=== PATIENT | male | born 1975 | race Caucasian/White ===

== ENCOUNTER → 2017-12-15 | Outpatient (CLI) | payer OTHER ==
--- NOTE | 2017-12-15 15:01 | Diagnostic Imaging Report ---
INDICATION: Hypertension, optic neuritis. COMPARISON: None. FINDINGS: Frontal and lateral views of the chest demonstrate normal heart size and pulmonary vascularity. The lungs are clear. There are no signs of infiltrate, pleural effusions or pneumothoraces. The visualized osseous structures show no acute abnormalities. IMPRESSION: 1. No acute process. No signs of infiltrates, effusions or pneumothoraces. Dictated by: Dictated on workstation # [id number]
== END ==
LOC: RAD 14:32
PROVIDERS: ATTEND Family Medicine
DX: H46.9 Unspecified optic neuritis (principal); I10 Essential (primary) hypertension
CPT/HCPCS: 71046

== ENCOUNTER 2018-01-06 13:30 | Outpatient (CLI) | payer OTHER | END 2018-01-06 14:00 | disposition home or self-care (01) | LOC: SLEEP 13:30 | PROVIDERS: ATTEND Family Medicine | DX: G47.35 Congenital central alveolar hypoventilation syndrome (principal); G47.10 Hypersomnia, unspecified ==

== ENCOUNTER → 2018-01-06 | Outpatient (CLI) | payer OTHER ==
--- NOTE | 2018-01-06 14:06 | Diagnostic Imaging Report ---
PROCEDURE: US carotid duplex, bilateral. TECHNIQUE: Multiple real-time grayscale images were obtained over the carotid arteries in various projections, bilaterally. Additional duplex Doppler and color Doppler images were also obtained. INDICATION: Left eye blindness. FINDINGS: No significant plaque is identified in either carotid system. The velocities are unremarkable bilaterally. No velocity elevation or stenosis is seen. Both vertebral arteries show antegrade flow. IMPRESSION: No evidence of a hemodynamically significant stenosis. Dictated by: Dictated on workstation # [id number]
== END ==
LOC: RAD 12:59
PROVIDERS: ATTEND Nurse Practitioner Family
DX: H54.62 Unqualified visual loss, left eye, normal vision right eye (principal); H46.8 Other optic neuritis
CPT/HCPCS: 93880

== ENCOUNTER → 2018-05-14 | Outpatient (CLI) | payer OTHER ==
--- NOTE | 2018-05-14 18:43 | Diagnostic Imaging Report ---
INDICATION: No known injuries. Neck and back pain with bilateral shoulder pain. EXAMINATION: MRI of the cervical spine, 05/14/2018. COMPARISON: None. FINDINGS: There is normal height and alignment of the vertebral bodies. There are no acute fractures appreciated. Cervical medullary junction is unremarkable. The visualized cord signal is preserved. C2-C3: This level is unremarkable central canal is patent as are the neural foramina. C3-C4: There is disc desiccation. There is a very mild broad-based bulging disc, right paracentral, without evidence of hypertrophy. There is mild to moderate central stenosis with narrowing of the right neural foramen. C4-C5: Disc desiccation present. There is a right paracentral spur disc complex without evidence of hypertrophy. Bilateral neural foraminal narrowing is seen and there is moderate central narrowing. C5-C6: There is disc desiccation. There is mild intervertebral disc space narrowing with a broad-based spur disc complex and bilateral facet hypertrophy. Bilateral neural foraminal stenosis is seen with moderate to near severe central narrowing. C6-C7: There is intervertebral disc space narrowing. Broad-based bulging disc material noted with severe central stenosis. This appears to be causing possible very early cord compression but no cord signal change is appreciated. The neural foramina are bilaterally narrowed, left worse than right, with facet hypertrophy seen, bilaterally. C7-T1: Intervertebral disc space narrowing is seen. There is no significant central stenosis. There is left-sided neural foraminal narrowing with bilateral facet hypertrophy noted. The prevertebral soft tissues are unremarkable. IMPRESSION: Multilevel diffuse degenerative findings, as described, causing multilevel areas of moderate stenosis with severe stenosis seen at the C6-C7 level, see above discussion. Surgical consultation would be recommended. No cord signal change is seen at this time. Dictated by: Dictated on workstation # [id number]
--- NOTE | 2018-05-14 19:07 | Diagnostic Imaging Report ---
INDICATION: No known injuries. Neck pain and back pain with bilateral shoulder and arm pain off and on. EXAMINATION: Thoracic spine MRI dated 05/14/2018. COMPARISON: No comparisons. FINDINGS: Normal height and alignment of the vertebral bodies is seen. No acute compression deformities appreciated. No significant subluxations are seen. Visualized cord signal is preserved. At the T6-T7 level, very mild right paracentral disc protrusion is noted causing some minimal central narrowing but no cord compression. Similar findings at the T7-T8 level, slightly more pronounced in appearance, causing mild flattening of the anterior aspect of the right portion of the central canal but no cord compression. At T8-T9, intervertebral disc space narrowing, disc desiccation, and a central disc protrusion is noted. There is marked spurring bilaterally along the lateral aspects of the vertebral bodies. Findings cause mild central narrowing. T9-T10 is unremarkable. At T10-T11, there is intervertebral disc space narrowing, disc desiccation, and a fairly prominent central disc extrusion. This causes [id number]-severe central stenosis and slightly pushes the cord posteriorly but no signal change in the cord is appreciated. Remaining levels are unremarkable. Visualized soft tissues in the abdomen and chest demonstrate a nonspecific oval lesion along the posterior left hemithorax, pleural based in appearance. It has signal intensity on the axial T2-weighted imaging, similar to the adjacent fatty tissue. It is not included on other sequences, therefore difficult to characterize but most likely focal fatty change or fatty lesion. Dedicated imaging of the chest with CT imaging could provide better characterization. IMPRESSION: 1. Multilevel diffuse degenerative findings, as described above, causing areas of central stenosis throughout the thoracic spine, worst at the T10-T11 level where there is near-severe central stenosis but no signal change in the cord at this time. Impending compression of the cord is not excluded. Other findings as above including findings in the left hemithorax which could be further evaluated with CT imaging. Dictated by: Dictated on workstation # [id number]
== END ==
LOC: RAD 16:55
PROVIDERS: ATTEND Nurse Practitioner Family
DX: M48.03 Spinal stenosis, cervicothoracic region (principal); M50.33 Other cervical disc degeneration, cervicothoracic region; M50.23 Other cervical disc displacement, cervicothoracic region; M99.71 Connective tissue and disc stenosis of intervertebral foramina of cervical region
CPT/HCPCS: 72141; 72146

== ENCOUNTER → 2018-05-26 | Outpatient (CLI) | payer OTHER ==
[~2018-05-26] MED LIST: IOHEXOL 350 MG/ML 100 ML (OMNIPAQUE 350) VIAL IV ONE; NS 100 ML (IVPB) BAG IV ONE
--- NOTE | 2018-05-26 09:52 | Diagnostic Imaging Report ---
PROCEDURE: CT chest with contrast only. TECHNIQUE: Multiple contiguous axial images were obtained through the chest after administration of intravenous contrast. INDICATION: Abnormal recent MRI of the thoracic spine with questionable fatty lesion in the left hemithorax. Study is performed for further evaluation. COMPARISON: Comparison is made with MRI thoracic spine study from 05/14/2018. FINDINGS: No axillary lymphadenopathy is identified. No hilar or mediastinal lymphadenopathy is seen. No pericardial or pleural fluid is detected. Central airways are patent. Lungs are clear. No parenchymal infiltrate, nodule or mass is seen. Specifically, in the lower left posterior thorax, no abnormality is seen to account for the MRI finding. This most likely represented fatty tissue. The upper abdomen is unremarkable. IMPRESSION: Unremarkable CT of the chest. Dictated by: Dictated on workstation # [id number]
== END ==
LOC: RAD 08:17
PROVIDERS: ATTEND Nurse Practitioner Family
DX: M79.89 Other specified soft tissue disorders (principal)
CPT/HCPCS: 71260

== ENCOUNTER 2020-04-28 | Emergency (ER) | payer MEDICAID, OTHER ==
[~2020-04-28] VITALS: Ht 170 cm; Wt 100.0 kg
--- OUTSIDE RECORDS SUMMARY | 2020-04-28 00:09 | XMS REPORT | CCD ---
Author Author Nilton Gonzalez Organization [facility] Address [address] [place] [address] Phone Care Team Providers Care Oncology Research Rn Name Role Phone PP Unavailable CCM Unavailable Summary Purpose Interface Exchange Family history Brother Diagnosis Age At Onset Alcoholism Unknown Father Diagnosis Age At Onset Hypercholesterolemia Unknown Social History Social History Element Codes Description Effective Dates Employment Unknown Curre ntly unemployed 04/20/2019 Marital status Unknown S chanda 12/15/2017 Number of children Unknown 1 12/15/[address]: 432893832 Never smoker 12/15/[address]: 305795 Currently drinks alcohol <1 per week 12/15/2017 Has the patient ever used illegal drugs? Unknown Has never used illegal drugs 018 Living arrangements Unknown House 08/04/2015 Allergies, Adverse Reactions, Alerts Substance Reaction Codes Entered Date Inactivated Date Status * NO KNOWN DRUG ARNOLDO RGIES Unknown 08/03/2015 No Inactive Date Active Past Medical History Illness Codes Condition Status Onset Date Resolved Date Cervicalgia ICD-9: 723.1 ICD-10: M54.2 Active 05/10/2018 Unknown Changes in skin texture ICD-9: 782.8 ICD-10: R23.4 Active 06/07/2019 Unknown Pain in thoracic spine ICD-9: 724.1 ICD-10: M54.6 Active 05/10/2018 Unknown Spinal stenosis, cer vical region ICD-9: 723.0 ICD-10: M48.02 Active 05/20/2018 Unknown Spinal stenosis, tho racic region ICD-9: 724.01 ICD-10: M48.04 Active 05/20/2018 Unknown Essential (primary) hypertension ICD-9: 401.1 ICD-10: I10 Active 12/15/2017 Unknown Major depressive dis order, recurrent, moderate ICD-9: 296.32 ICD-10: F33.1 Active 04/20/2019 Unknown Other fatigue ICD-9: 780.79 ICD-10: R53.83 Active 05/10/2018 Unknown 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 Active 05/20/2018 Unknown Dysphagia, pharyngea l phase ICD-9: 787.23 ICD-10: R13.13 Active 04/20/2019 Unknown Impaired fasting glu cose ICD-9: 790.21 ICD-10: R73.01 Active 12/21/2018 Unknown Pain in right arm ICD-9: 729.5 ICD-10: M79.601 Active 12/20/2018 Unknown Ischemic optic neuro sergey, 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 Active 12/15/2017 Unknown Obstructive sleep ap nura (adult) (pediatric) ICD-9: 327.23 ICD-10: G47.33 Active 01/15/2018 Unknown Other malaise ICD-9: 780.79 ICD-10: R53.81 Active 05/10/2018 Unknown Acute upper respirat ory infection, unspecified ICD-9: 465.9 ICD-10: J06.9 Active 09/24/2018 Unknown Other allergic rhinitis ICD-9: 477.8 ICD-10: J30.89 Active 09/24/2018 Unknown Rash and other nonsp ecific skin eruption ICD-9: 782.1 ICD-10: R21 Active 08/02/2018 Unknown VACCIN FOR INFLUENZA ICD-9: V04.81 ICD-10: Z23 Active 08/02/2018 Unknown Decreased libido ICD-9: 799.81 ICD-10: R68.82 Active 05/10/2018 Unknown Encounter for genera l adult medical examination with abnormal findings ICD-9: V70.0 ICD-10: Z00.01 Active 12/15/2017 Unknown Laceration of thumb ICD- 9: 883.0 Active 08/02/2015 Unknown Problems Condition Codes Effectiv e Dates Condition Status Cervicalgia ICD-9: 723.1 ICD-10: M54.2 05/10/2018 Active Changes in skin texture ICD-9: 782.8 ICD-10: R23.4 06/07/2019 Active Pain in thoracic spine ICD-9: 724.1 ICD-10: M54.6 05/10/2018 Active Spinal stenosis, cer vical region ICD-9: 723.0 ICD-10: M48.02 05/20/2018 Active Spinal stenosis, tho racic region ICD-9: 724.01 ICD-10: M48.04 05/20/2018 Active Essential (primary) hypertension ICD-9: 401.1 ICD-10: I10 12/15/2017 Active Major depressive dis order, recurrent, moderate ICD-9: 296.32 ICD-10: F33.1 04/20/2019 Active Other fatigue ICD-9: 780.79 ICD-10: R53.83 05/10/2018 Active 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 05/20/2018 Active Dysphagia, pharyngea l phase ICD-9: 787.23 ICD-10: R13.13 04/20/2019 Active Impaired fasting glu cose ICD-9: 790.21 ICD-10: R73.01 12/21/2018 Active Pain in right arm ICD-9: 729.5 ICD-10: M79.601 12/20/2018 Active Ischemic optic neuro sergey, 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 12/15/2017 Active Obstructive sleep ap nura (adult) (pediatric) ICD-9: 327.23 ICD-10: G47.33 01/15/2018 Active Other malaise ICD-9: 780.79 ICD-10: R53.81 05/10/2018 Active Acute upper respirat ory infection, unspecified ICD-9: 465.9 ICD-10: J06.9 09/24/2018 Active Other allergic rhinitis ICD-9: 477.8 ICD-10: J30.89 09/24/2018 Active Rash and other nonsp ecific skin eruption ICD-9: 782.1 ICD-10: R21 08/02/2018 Active VACCIN FOR INFLUENZA ICD-9: V04.81 ICD-10: Z23 08/02/2018 Active Decreased libido ICD-9: 799.81 ICD-10: R68.82 05/10/2018 Active Encounter for genera l adult medical examination with abnormal findings ICD-9: V70.0 ICD-10: Z00.01 12/15/2017 Active Laceration of thumb ICD- 9: 883.0 08/02/2015 Active Medications Medication Codes Instruc tions Start Date Stop Date Sta tus Fill Instructions hydrocodone 10 mg-ac etaminophen 325 mg tablet RxNorm: 062214 1 Tablet(s) PO TID 08/05/2019 No Stop Date Active Singulair 10 mg tablet RxNorm: 482961 TAKE ONE TABLET BY MOUTH DAILY 07/20/2019 04/14/2020 Ac tive Adderall 30 mg tablet RxNorm: 124735 2 Tablet(s) PO daily 07/13/2019 08/11/2019 Active hydrocodone 10 mg-ac etaminophen 325 mg tablet RxNorm: 946834 1 Tablet(s) PO TID 07/06/2019 08/04/2019 In active alprazolam 1 mg tablet RxNorm: 030097 1 Tablet(s) PO TID as needed 07/05/2019 09/02/2019 Active prazosin 1 mg capsule RxNorm: 573483 2 Capsule(s) PO QPM 06/29/2019 10/26/2019 Active diclofenac sodium 75 mg tablet,delayed release RxNorm: 969047 1 Tablet(s) PO BID 06/27/2019 06/26/2019 In active diclofenac sodium 75 mg tablet,delayed release RxNorm: 388297 1 Tablet(s) PO BID 06/27/2019 07/26/2019 In active acyclovir 400 mg tablet RxNorm: 641492 TAKE ONE TABLET BY MOUTH THREE TIMES A D AY NEEDED. TAKE AT ONSET OF SYMPTOMS OF COLD SORES FOR 5 DAYS. 06/27/2019 07/26/2019 Inactive testosterone cypiona te 200 mg/mL intramuscular oil RxNorm: 4394678 1.25 Milliliter(s) IM 2 x month 06/24/2019 10/13/2019 Active Adderall 30 mg tablet RxNorm: 823536 2 Tablet(s) PO daily 06/16/2019 07/12/2019 Inactive hydrocodone 10 mg-ac etaminophen 325 mg tablet RxNorm: 021077 1 Tablet(s) PO TID 06/07/2019 07/05/2019 In active prazosin 1 mg capsule RxNorm: 086712 2 Capsule(s) PO QPM 06/07/2019 06/28/2019 Inactive prazosin 1 mg capsule RxNorm: 182676 TAKE ONE CAPSULE BY MOUTH EVERY NIGHT AT BEDTIME 06/02/2019 06/06/2019 Inactive trazodone 100 mg tablet RxNorm: 419328 TAKE ONE TABLET BY MOUTH EVERY NIGHT AT BEDTIME 05/25/2019 11/20/2019 Active hydrocodone 10 mg-ac etaminophen 325 mg tablet RxNorm: 906986 1 Tablet(s) PO Q6 as needed 05/17/2019 06/06/2019 Inactive paroxetine 40 mg tablet RxNorm: 6751744 TAKE ONE TABLET BY MOUTH DAILY 05/16/2019 11/11/2019 Ac tive hydrocodone 5 mg-fanny taminophen 325 mg tablet RxNorm: 370866 1-2 Tablet(s) PO Q6 a s needed 05/16/2019 05/16/2019 Inactive prazosin 1 mg capsule RxNorm: 552512 1 Capsule(s) PO daily 05/05/2019 06/01/2019 Inactive paroxetine 40 mg tablet RxNorm: 0416117 1 Tablet(s) PO daily 04/20/2019 05/15/2019 Inactive Adderall 30 mg tablet RxNorm: 253449 2 Tablet(s) PO daily 04/19/2019 05/18/2019 Inactive alprazolam 1 mg tablet RxNorm: 638009 1 Tablet(s) PO TID as needed 04/13/2019 06/10/2019 Inactive hydrocodone 5 mg-fanny taminophen 325 mg tablet RxNorm: 177123 1-2 Tablet(s) PO Q6 a s needed 03/21/2019 05/15/2019 Inactive Adderall 30 mg tablet RxNorm: 427703 2 Tablet(s) PO daily 03/21/2019 04/14/2019 Inactive tramadol 50 mg tablet RxNorm: 641263 1-2 Tablet(s) PO Q6 as needed 03/14/2019 No Stop Date Active hydrocodone 5 mg-fanny taminophen 325 mg tablet RxNorm: 213813 1-2 Tablet(s) PO Q6 a s needed 02/23/2019 03/20/2019 Inactive Adderall 30 mg tablet RxNorm: 785911 2 Tablet(s) PO daily 02/23/2019 03/20/2019 Inactive Adderall 30 mg tablet RxNorm: 288954 2 Tablet(s) PO daily 01/24/2019 02/22/2019 Inactive ketoconazole 2 % top ical cream RxNorm: 310226 APPLY ONE GRAM TOPICA LLY TWICE A DAY 01/12/2019 01/26/2019 In active tramadol 50 mg tablet RxNorm: 720207 1-2 Tablet(s) PO Q6 as needed 01/11/2019 03/13/2019 In active atenolol 50 mg tablet RxNorm: 486605 1.5 Tablet(s) PO BID 12/29/2018 12/23/2019 Active hydrocodone 5 mg-fanny taminophen 325 mg tablet RxNorm: 646605 1-2 Tablet(s) PO Q6 a s needed 12/29/2018 02/22/2019 Inactive Adderall 30 mg tablet RxNorm: 900043 2 Tablet(s) PO daily 12/29/2018 01/23/2019 Inactive hydrocodone 5 mg-fanny taminophen 325 mg tablet RxNorm: 191975 1-2 Tablet(s) PO Q6 a s needed 12/29/2018 12/28/2018 Inactive testosterone cypiona te 200 mg/mL intramuscular oil RxNorm: 6352099 1.25 Milliliter(s) IM 12/29/2018 12/28/2018 Inactive hydrocodone 5 mg-fanny taminophen 325 mg tablet RxNorm: 880788 1 Tablet(s) PO TID AL N 12/28/2018 12/28/2018 In active testosterone cypiona te 200 mg/mL intramuscular oil RxNorm: 3348741 1.25 Milliliter(s) IM 2 x month 12/22/2018 04/12/2019 Inactive gabapentin 300 mg ca psule RxNorm: 833894 1 Capsule(s) PO QID 12/16/2018 12/10/2019 Active testosterone cypiona te 200 mg/mL intramuscular oil RxNorm: 1960005 Milliliter(s) IM 12/16/2018 12/16/2018 In active Voltaren 1 % topical gel RxNorm: 171926 2 Gram(s) APPLY TOPIC ALLY four TIMES A DAY 12/16/2018 01/20/2019 In active trazodone 100 mg tablet RxNorm: 647743 TAKE ONE TABLET BY MOUTH EVERY NIGHT AT BEDTIME 12/07/2018 05/24/2019 Inactive hydrocodone 5 mg-fanny taminophen 325 mg tablet RxNorm: 016748 1 Tablet(s) PO TID AL N 11/29/2018 12/27/2018 In active Adderall 30 mg tablet RxNorm: 880936 2 Tablet(s) PO daily 11/29/2018 12/28/2018 Inactive clindamycin 1 %-arthur oyl peroxide 5 % topical gel RxNorm: 878877 TOP APPLY TO AFFECTED AREA(S) ON SERNA TWO TIMES A DAY 11/17/2018 No Stop Date Active testosterone cypiona te 200 mg/mL intramuscular oil RxNorm: 9167752 1 Milliliter(s) IM 2 x month 11/17/2018 12/21/2018 Inactive Zorvolex 35 mg capsule RxNorm: 5341805 1 Capsule(s) PO TID as needed for pain 11/15/2018 05/13/2019 In active ketoconazole 2 % top ical cream RxNorm: 216780 APPLY ONE GRAM TOPICA LLY TWICE A DAY 11/15/2018 11/29/2018 In active testosterone cypiona te 200 mg/mL intramuscular oil RxNorm: 9838848 1 Milliliter(s) IM 11/15/2018 11/14/2018 Inactive hydrocodone 5 mg-fanny taminophen 325 mg tablet RxNorm: 549976 1 Tablet(s) PO TID AL N 11/02/2018 11/28/2018 In active Singulair 10 mg tablet RxNorm: 321513 1 Tablet(s) PO daily 11/01/2018 07/19/2019 Inactive testosterone cypiona te 200 mg/mL intramuscular oil RxNorm: 9706766 1 Milliliter(s) IM 2 x month 11/01/2018 11/16/2018 Inactive Adderall 30 mg tablet RxNorm: 600015 2 Tablet(s) PO daily 10/29/2018 11/27/2018 Inactive gabapentin 300 mg ca psule RxNorm: 872641 1 Capsule(s) PO BID m ay take TID 10/19/2018 12/15/2018 In active gabapentin 300 mg ca psule RxNorm: 120551 1 Capsule(s) PO BID m ay take TID 10/19/2018 10/18/2018 In active alprazolam 1 mg tablet RxNorm: 682165 1 Tablet(s) PO TID as needed 10/15/2018 04/19/2019 Inactive testosterone cypiona te 200 mg/mL intramuscular oil RxNorm: 871229 Milliliter(s) IM 09/28/2018 09/28/2018 In active pravastatin 40 mg ta blet RxNorm: 025823 TAKE ONE TABLET BY MO UT EVERY NIGHT AT BEDTIME 09/27/2018 09/21/2019 Active Tamiflu 75 mg capsule RxNorm: 351860 1 Capsule(s) PO BID 09/24/2018 09/28/2018 Inactive Adderall 30 mg tablet RxNorm: 552196 2 Tablet(s) PO daily 09/20/2018 10/19/2018 Inactive hydrocodone 5 mg-fanny taminophen 325 mg tablet RxNorm: 448407 1 Tablet(s) PO TID AL N 09/20/2018 11/01/2018 In active testosterone cypiona te 200 mg/mL intramuscular oil RxNorm: 945292 Milliliter(s) IM 09/16/2018 09/16/2018 In active testosterone cypiona te 200 mg/mL intramuscular oil RxNorm: 022295 1 Milliliter(s) IM 09/02/2018 09/02/2018 Inactive testosterone cypiona te 200 mg/mL intramuscular oil RxNorm: 408724 Milliliter(s) IM 08/19/2018 08/19/2018 In active Adderall 30 mg tablet RxNorm: 109893 2 Tablet(s) PO daily 08/18/2018 09/16/2018 Inactive tramadol 50 mg tablet RxNorm: 576362 1-2 Tablet(s) PO Q6 as needed 08/18/2018 01/12/2019 In active Dexilant 60 mg capsu le, delayed release RxNorm: 033363 1 Capsule(s) PO BID 08/17/2018 08/11/2019 Ac tive ketoconazole 2 % top ical cream RxNorm: 685777 1 Gram(s) TOP BID 08/17/2018 08/26/2018 Inactive Zorvolex 35 mg capsule RxNorm: 9849141 1 Capsule(s) PO TID as needed for pain 08/17/2018 08/16/2018 In active atenolol 50 mg tablet RxNorm: 775017 1 Tablet(s) PO BID 08/17/2018 12/28/2018 Inactive Zorvolex 35 mg capsule RxNorm: 6622276 1 Capsule(s) PO TID as needed for pain 08/17/2018 11/14/2018 In active ketoconazole 2 % top ical cream RxNorm: 281387 1 Gram(s) TOP BID 08/02/2018 08/11/2018 Inactive hydrocortisone 2.5 % topical cream RxNorm: 997787 1 Application TOP BID 07/21/2018 No Stop Date Active Adderall 30 mg tablet RxNorm: 909880 2 Tablet(s) PO daily 07/20/2018 08/17/2018 Inactive testosterone cypiona te 200 mg/mL intramuscular oil RxNorm: 208524 Milliliter(s) IM 07/15/2018 07/15/2018 In active alprazolam 1 mg tablet RxNorm: 508719 1 Tablet(s) PO TID as needed 07/12/2018 09/07/2018 Inactive hydrocodone 5 mg-fanny taminophen 325 mg tablet RxNorm: 326957 1 Tablet(s) PO TID AL N 06/30/2018 09/19/2018 In active pravastatin 40 mg ta blet RxNorm: 067619 1 Tablet(s) PO QHS 06/18/2018 09/15/2018 Inactive Adderall 30 mg tablet RxNorm: 243433 2 Tablet(s) PO daily 06/18/2018 07/17/2018 Inactive testosterone cypiona te 200 mg/mL intramuscular oil RxNorm: 281922 Milliliter(s) IM 06/17/2018 06/17/2018 In active Voltaren 1 % topical gel RxNorm: 370000 APPLY TOPICALLY TWO T IMES A DAY 06/16/2018 07/21/2018 In active Vitamin D2 50,000 un it capsule RxNorm: 5265979 1 Capsule(s) PO QW 05/21/2018 No Stop Date Active Adderall 30 mg tablet RxNorm: 970760 2 Tablet(s) PO daily 05/21/2018 06/17/2018 Inactive testosterone cypiona te 200 mg/mL intramuscular oil RxNorm: 431709 Milliliter(s) IM 05/21/2018 05/21/2018 In active testosterone cypiona te 200 mg/mL intramuscular oil RxNorm: 3870295 1 Milliliter(s) IM monthly 05/20/2018 09/16/2018 Inactive testosterone cypiona te 200 mg/mL intramuscular oil RxNorm: 137179 1 Milliliter(s) IM monthly 05/20/2018 05/19/2018 Inactive hydrocodone 5 mg-fanny taminophen 325 mg tablet RxNorm: 231127 1 Tablet(s) PO TID AL N 05/20/2018 06/29/2018 In active Vitamin D2 50,000 un it capsule RxNorm: 7258161 1 Capsule(s) PO QW 05/18/2018 05/20/2018 Inactive triamcinolone aceton destin 0.025 % topical cream RxNorm: 3964052 1 Application TOP BI D 05/13/2018 No Stop Date Active Dexilant 60 mg capsu le, delayed release RxNorm: 438425 1 Capsule(s) PO BID 05/13/2018 08/16/2018 In active Zorvolex 35 mg capsule RxNorm: 3549618 1 Capsule(s) PO TID as needed for pain 05/12/2018 08/09/2018 In active Voltaren 1 % topical gel RxNorm: 950716 1 Application TOP BID 05/12/2018 06/15/2018 Inactive ProAir HFA 90 mcg/ac tuation aerosol inhaler RxNorm: 909711 1 Puff(s) INH QID as needed 05/10/2018 No Stop Date Active baclofen 20 mg tablet RxNorm: 136968 1 Tablet(s) PO TID as needed muscle spas ms 05/10/2018 06/08/2018 In active Singulair 10 mg tablet RxNorm: 073966 1 Tablet(s) PO daily 05/10/2018 08/07/2018 Inactive acyclovir 400 mg tablet RxNorm: 211695 1 Tablet(s) PO TID as needed take at ons et of symptoms of cold sores x 5 days 05/10/2018 06/26/2019 Inactive atenolol 50 mg tablet RxNorm: 071960 1 Tablet(s) PO BID 05/10/2018 08/07/2018 Inactive triamcinolone aceton destin 0.025 % topical cream RxNorm: 2238319 1 Application TOP BI D 05/10/2018 05/12/2018 In active paroxetine 20 mg tablet RxNorm: 9036349 2 Tablet(s) PO QHS 05/10/2018 04/19/2019 Inactive tramadol 50 mg tablet RxNorm: 583686 1 Tablet(s) PO TID as needed 05/10/2018 05/19/2018 Inactive Dexilant 60 mg capsu le, delayed release RxNorm: 595344 1 Capsule(s) PO daily 05/10/2018 05/12/2018 In active alprazolam 1 mg tablet RxNorm: 015929 1 Tablet(s) PO TID as needed 05/10/2018 08/06/2018 Inactive trazodone 100 mg tablet RxNorm: 228974 1 Tablet(s) PO QHS 05/10/2018 11/05/2018 Inactive cyclobenzaprine 10 m g tablet RxNorm: 599749 1 Tablet(s) PO TID as needed muscle spasms 05/07/2018 07/12/2018 Inactive trazodone 100 mg tablet RxNorm: 129123 1 Tablet(s) PO QHS 05/07/2018 05/09/2018 Inactive Adderall 30 mg tablet RxNorm: 183559 2 Tablet(s) PO daily 04/19/2018 05/18/2018 Inactive alprazolam 1 mg tablet RxNorm: 362672 1 Tablet(s) PO BID 04/19/2018 05/09/2018 Inactive Adderall 30 mg tablet RxNorm: 292158 2 Tablet(s) PO daily 03/26/2018 04/18/2018 Inactive paroxetine 20 mg tablet RxNorm: 7958408 2 Tablet(s) PO QHS 03/15/2018 05/09/2018 Inactive Adderall 30 mg tablet RxNorm: 500520 2 Tablet(s) PO daily 02/25/2018 03/25/2018 Inactive cyclobenzaprine 10 m g tablet RxNorm: 036328 1 Tablet(s) PO TID as needed muscle spasms 02/22/2018 05/06/2018 Inactive tramadol 50 mg tablet RxNorm: 883810 1 Tablet(s) PO TID as needed 02/22/2018 03/07/2018 Inactive tramadol 50 mg tablet RxNorm: 264004 1 Tablet(s) PO TID as needed 02/22/2018 02/21/2018 Inactive trazodone 100 mg tablet RxNorm: 655358 1 Tablet(s) PO QHS 02/03/2018 05/03/2018 Inactive trazodone 100 mg tablet RxNorm: 682443 1 Tablet(s) PO QHS 02/03/2018 02/02/2018 Inactive Adderall 30 mg tablet RxNorm: 574157 2 Tablet(s) PO daily 01/27/2018 02/18/2018 Inactive acyclovir 400 mg tablet RxNorm: 450474 1 Tablet(s) PO TID as needed take at ons et of symptoms of cold sores x 5 days 01/15/2018 05/09/2018 Inactive Bactrim DS 800 mg-16 0 mg tablet RxNorm: 076184 1 Tablet(s) PO BID 01/11/2018 01/17/2018 Inactive Bactrim DS 800 mg-16 0 mg tablet RxNorm: 897770 1 Tablet(s) PO BID 01/11/2018 01/10/2018 Inactive Dexilant 60 mg capsu le, delayed release RxNorm: 962455 1 Capsule(s) PO daily 12/23/2017 05/09/2018 In active Dexilant 60 mg capsu le, delayed release RxNorm: 183267 1 Capsule(s) PO daily 12/23/2017 12/22/2017 In active atenolol 50 mg tablet RxNorm: 284233 1 Tablet(s) PO BID 12/15/2017 05/09/2018 Inactive alprazolam 1 mg tablet RxNorm: 186266 1-1.5 Tablet(s) PO daily 12/15/2017 04/18/2018 Inactive ceftriaxone 500 mg s olution for injection RxNorm: 8650898 Inj 08/03/2015 08/03/2015 Inactive paroxetine 20 mg tablet RxNorm: 9556144 2 Tablet(s) PO QHS 08/01/2015 10/29/2015 Inactive pravastatin 40 mg ta blet RxNorm: 671750 1/2 Tablet(s) PO QHS 08/01/2015 12/14/2017 Inactive Trazadone 100mg 100 mg RxNorm: 1 PO daily 08/01/2015 11/27/2015 Inactive Trazadone 100mg 100 mg RxNorm: 1 PO daily 08/01/2015 05/04/2018 Inactive atenolol 50 mg tablet RxNorm: 224428 1 Tablet(s) PO daily 08/01/2015 10/29/2015 Inactive Fish Oil 360 mg-1,20 0 mg capsule RxNorm: 198207 1 Capsule(s) PO BID No Start Date Active Zyrtec 10 mg tablet RxNorm: 9625723 1 Tablet(s) PO daily No Start Date Active pravastatin 40 mg ta blet RxNorm: 405137 1/2 Tablet(s) PO QHS No Start Date 07/31/2015 Inactive Benadryl Allergy 25 mg tablet RxNorm: 0389435 1 Tablet(s) PO daily No Start Date 07/19/2018 Inactive Adderall 30 mg tablet RxNorm: 332643 2 Tablet(s) PO daily No Start Date 01/26/2018 Inactive Aspirin Low Dose 81 mg tablet,delayed release RxNorm: 151016 1 Tablet(s) PO BID No Start Date 07/19/2018 Inactive Singulair 10 mg tablet RxNorm: 491154 1 Tablet(s) PO daily No Start Date 05/09/2018 Inactive cyclobenzaprine 10 m g tablet RxNorm: 771108 1 Tablet(s) PO TID as needed muscle spasms No Start Date 02/21/2018 Inactive Trazadone 100mg 100 mg RxNorm: 1 PO daily No Start Date 07/31/2015 Inactive ibuprofen 800 mg tablet RxNorm: 089825 1 Tablet(s) PO BID -TID No Start Date 06/06/2019 Inactive clindamycin 1 %-arthur oyl peroxide 5 % topical gel RxNorm: 323295 TOP APPLY TO AFFECTED AREA(S) ON SERNA TWO TIMES A DAY No Start Date 11/16/2018 Inactive hydrocortisone 2.5 % topical cream RxNorm: 873867 1 Application TOP BID No Start Date 07/20/2018 Inactive alprazolam 1 mg tablet RxNorm: 203421 2 Tablet(s) PO daily No Start Date 12/14/2017 Inactive tramadol 50 mg tablet RxNorm: 582851 1-2 Tablet(s) PO Q6 as needed No Start Date 08/17/2018 Inactive Vitamin D2 50,000 un it capsule RxNorm: 3727981 1 Capsule(s) PO QW No Start Date 05/17/2018 Inactive pantoprazole 40 mg t ablet,delayed release RxNorm: 344870 1 Tablet(s) PO BID No Start Date 12/22/2017 Inactive atenolol 50 mg tablet RxNorm: 783352 1 Tablet(s) PO daily No Start Date 07/31/2015 Inactive hydrocodone 10 mg-ac etaminophen 325 mg tablet RxNorm: 358471 1 Tablet(s) PO Q6 as needed No Start Date 05/16/2019 Inactive paroxetine 20 mg tablet RxNorm: 215369 2 Tablet(s) PO QHS No Start Date 07/31/2015 Inactive Medication Administered Medication Codes Instruc tions Start Date Status testosterone cypionate 200 mg/mL intramuscular oil RxNorm: 2532785 1.25Milliliter 12/29/2018 No longer Active testosterone cypionate 200 mg/mL intramuscular oil RxNorm: 2153598 Milliliter 12/16/2018 No longer Active testosterone cypionate 200 mg/mL intramuscular oil RxNorm: 7750223 1Milliliter 11/15/2018 No longer Active testosterone cypionate 200 mg/mL intramuscular oil RxNorm: 783880 Milliliter 09/28/2018 No longer Active testosterone cypionate 200 mg/mL intramuscular oil RxNorm: 719366 Milliliter 09/16/2018 No longer Active testosterone cypionate 200 mg/mL intramuscular oil RxNorm: 416104 1Milliliter 09/02/2018 No longer Active testosterone cypionate 200 mg/mL intramuscular oil RxNorm: 161515 Milliliter 08/19/2018 No longer Active testosterone cypionate 200 mg/mL intramuscular oil RxNorm: 257912 Milliliter 07/15/2018 No longer Active testosterone cypionate 200 mg/mL intramuscular oil RxNorm: 105575 Milliliter 06/17/2018 No longer Active testosterone cypionate 200 mg/mL intramuscular oil RxNorm: 455414 Milliliter 05/21/2018 No longer Active ceftriaxone 500 mg solution for injection RxNorm: 5249863 08/03/2015 No longer A ctive Immunizations Vaccine Codes Date Status Influenza CVX: 141 08/02 completed Tetanus, Diptheria, Pertussis CVX: 05/16/2011 completed Tetanus/Diptheria CVX: 05/16/2011 completed Assessments Condition Codes Effectiv e Dates Changes in skin texture ICD-10: R23. 4 ICD-9: 782.8 06/07/2019 Pain in thoracic spine ICD-10: M54.6 ICD-9: 724.1 06/07/2019 Spinal stenosis, thoracic region ICD -10: M48.04 ICD-9: 724.01 06/07/2019 Cervicalgia ICD-10: M54.2 ICD-9: 723.1 06/07/2019 Spinal stenosis, cervical region ICD -10: M48.02 ICD-9: 723.0 06/07/2019 Other fatigue ICD-10: R53.83 ICD-9: 780.79 05/05/2019 Major depressive disorder, recurrent, moderate ICD-10: F33.1 ICD-9: 296.32 05/05/2019 Essential (primary) hypertension ICD -10: I10 ICD-9: 401.1 05/05/2019 Dysphagia, pharyngeal phase ICD-10: R13.13 ICD-9: 787.23 04/20/2019 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 89 ICD-9: 477.8 09/24/2018 Acute upper respiratory infection, unspecified ICD-10: J06.9 ICD-9: 465.9 09/24/2018 VACCIN FOR INFLUENZA ICD-10: Z23 ICD-9: V04.81 08/02/2018 Rash and other nonspecific skin eruption ICD-10: R21 ICD-9: 782.1 08/02/2018 Decreased libido ICD-10: R68.82 ICD-9: 799.81 05/10/2018 Encounter for general adult medical exam ination with abnormal findings ICD-10: Z00.01 ICD-9: V70.0 12/15/2017 Laceration of thumb ICD-9: 883.0 08/03/2015 Reason For Visit Reason For Visit Effective Dates Notes back pain 06/07/2019 back pain 05/05/2019 back pain 04/20/2019 back pain 12/29/2018 arm pain 12/20/2018 hypertension 12/16/2018 hypertension 11/01/2018 sinus congestion 09/24/2018 back pain 08/16/2018 back pain 08/02/2018 back pain 05/31/2018 back pain 05/20/2018 medication follow up 05/10/2018 vision change 01/15/2018 vision change 12/15/2017 Results Observation Observation Code Item Item Code Result Date Comp. Metabolic Panel (14) 07118 GLUCOSE 117 mg/dL 12/17/2018 Comp. Metabolic Panel (14) 98134 BUN 17 mg/dL 12/17/2018 Comp. Metabolic Panel (14) 81122 CREATININE 0.99 mg/dL 12/17/2018 Comp. Metabolic Panel (14) 97907 SODIUM 137 mmol/L 12/17/2018 Comp. Metabolic Panel (14) 08170 POTASSIUM 4.6 mmol/L 12/17/2018 Comp. Metabolic Panel (14) 64618 CHLORIDE 102 mmol/L 12/17/2018 Comp. Metabolic Panel (14) 21647 CARBON DIOXIDE 21 mmol/L 12/17/2018 Comp. Metabolic Panel (14) 17761 CALCIUM 9.4 mg/dL 12/17/2018 Comp. Metabolic Panel (14) 92145 TOTAL PROTEIN 7.5 g/dL 12/17/2018 Comp. Metabolic Panel (14) 47222 ALBUMIN 5.1 g/dL 12/17/2018 Comp. Metabolic Panel (14) 72634 ALKALINE PHOSPHATASE 79 U/L 12/17/2018 Comp. Metabolic Panel (14) 63389 TOTAL BILIRUBIN 0.5 mg/dL 12/17/2018 Comp. Metabolic Panel (14) 34582 SGOT (AST) 34 U/L 12/17/2018 Comp. Metabolic Panel (14) 08310 SGPT (ALT) 40 U/L 12/17/2018 Comp. Metabolic Panel (14) 33758 eGFR (mL/min/1.73m2) 115 12/17/2018 Comp. Metabolic Panel (14) 22201 INTERPRETATION 12/17/2018 Testosterone Serum 255130 TESTOSTERONE 96.8 ng/dL 12/17/2018 Cbc With Differential/Platelet 90416 WBC 5.61 thou/uL 9 Cbc With Differential/Platelet 75990 RBC 5.53 mil/uL 12/17/2018 Cbc With Differential/Platelet 47657 HEMOGLOBIN 15.4 g/dL 12/17/2018 Cbc With Differential/Platelet 06234 HEMATOCRIT 48.1 % 12/17/2018 Cbc With Differential/Platelet 58354 MCV 87.0 fL 12/17/2018 Cbc With Differential/Platelet 37195 MCH 27.8 pg 12/17/2018 Cbc With Differential/Platelet 02361 MCHC 32.0 g/dL 12/17/2018 Cbc With Differential/Platelet 57732 RDW-CV 13.9 % 12/17/2018 Cbc With Differential/Platelet 26519 PLATELET COUNT 294 thou/uL 12/17/2018 Cbc With Differential/Platelet 88794 NEUTROPHIL % 71.2 % 12/17/2018 Cbc With Differential/Platelet 92733 LYMPHOCYTE % 22.2 % 12/17/2018 Cbc With Differential/Platelet 03915 MONOCYTE % 5.4 % 12/17/2018 Cbc With Differential/Platelet 59464 EOS % 0.9 % 12/17/2018 Cbc With Differential/Platelet 64767 BASO % 0.4 % 12/17/2018 Cbc With Differential/Platelet 70013 NEUTROPHIL ABS # 3.99 thou/uL 12/17/2018 Cbc With Differential/Platelet 23482 LYMPH ABS # 1.25 thou/uL 12/17/2018 Cbc With Differential/Platelet 81879 MONOCYTE ABS # 0.30 thou/uL 12/17/2018 Cbc With Differential/Platelet 54991 EOS ABS # 0.05 thou/uL 9 Cbc With Differential/Platelet 73222 BASO ABS # 0.02 thou/uL 12/17/2018 Lipid Panel 99575 CHOLES TEROL 227 mg/dL 12/17/2018 Lipid Panel 66037 TRIGLY CERIDES 229 mg/dL 12/17/2018 Lipid Panel 07839 HDL 41 mg/dL 12/17/2018 Lipid Panel 40487 CHOLES TEROL/HDL 5.54 12/17/2018 Lipid Panel 25076 LDL (C ALCULATED) 140 mg/dL 12/17/2018 Lipid Panel 36766 LDL/HDL 3.41 12/17/2018 Lipid Panel 20810 INTERP RETATION 12/17/2018 Tsh 188673 TSH 1.190 uIU/mL 12/17/2018 Testosterone Serum 990664 TESTOSTERONE 44.1 ng/dL 08/18/2018 Hemoglobin 142521 WBC 7.62 thou/uL 08/17/2018 Hemoglobin 627138 RBC 5.23 mil/uL 08/17/2018 Hemoglobin 407748 HEMOGL OBIN 15.0 g/dL 08/17/2018 Hemoglobin 199419 HEMATO CRIT 45.0 % 08/17/2018 Hemoglobin 443620 MCV 86.0 fL 08/17/2018 Hemoglobin 851895 MCH 28.7 pg 08/17/2018 Hemoglobin 016684 MCHC 33.3 g/dL 08/17/2018 Hemoglobin 486970 RDW-CV 12.9 % 08/17/2018 Hemoglobin 275226 PLATEL ET COUNT 313 thou/uL 08/17/2018 Hematocrit 680290 WBC 7.62 thou/uL 08/17/2018 Hematocrit 906147 RBC 5.23 mil/uL 08/17/2018 Hematocrit 973712 HEMOGL OBIN 15.0 g/dL 08/17/2018 Hematocrit 212565 HEMATO CRIT 45.0 % 08/17/2018 Hematocrit 715977 MCV 86.0 fL 08/17/2018 Hematocrit 162989 MCH 28.7 pg 08/17/2018 Hematocrit 147656 MCHC 33.3 g/dL 08/17/2018 Hematocrit 084027 RDW-CV 12.9 % 08/17/2018 Hematocrit 639050 PLATEL ET COUNT 313 thou/uL 08/17/2018 Culture Mrsa 638187 MRSA CULTURE SEE NOTES 06/21/2018 Comp. Metabolic Panel (14) 09944 GLUCOSE 101 mg/dL 06/18/2018 Comp. Metabolic Panel (14) 62050 BUN 18 mg/dL 06/18/2018 Comp. Metabolic Panel (14) 77549 CREATININE 0.99 mg/dL 06/18/2018 Comp. Metabolic Panel (14) 09512 SODIUM 141 mmol/L 06/18/2018 Comp. Metabolic Panel (14) 84382 POTASSIUM 4.3 mmol/L 06/18/2018 Comp. Metabolic Panel (14) 44518 CHLORIDE 103 mmol/L 06/18/2018 Comp. Metabolic Panel (14) 24040 CARBON DIOXIDE 23 mmol/L 06/18/2018 Comp. Metabolic Panel (14) 68923 CALCIUM 9.8 mg/dL 06/18/2018 Comp. Metabolic Panel (14) 79994 TOTAL PROTEIN 7.1 g/dL 06/18/2018 Comp. Metabolic Panel (14) 08939 ALBUMIN 5.2 g/dL 06/18/2018 Comp. Metabolic Panel (14) 72915 ALKALINE PHOSPHATASE 65 U/L 06/18/2018 Comp. Metabolic Panel (14) 40669 TOTAL BILIRUBIN 0.6 mg/dL 06/18/2018 Comp. Metabolic Panel (14) 75141 SGOT (AST) 21 U/L 06/18/2018 Comp. Metabolic Panel (14) 84204 SGPT (ALT) 24 U/L 06/18/2018 Comp. Metabolic Panel (14) 23514 eGFR (mL/min/1.73m2) 115 06/18/2018 Comp. Metabolic Panel (14) 64244 INTERPRETATION 06/18/2018 Cbc With Differential/Platelet 97891 WBC 4.55 thou/uL 8 Cbc With Differential/Platelet 59185 RBC 5.13 mil/uL 06/18/2018 Cbc With Differential/Platelet 86272 HEMOGLOBIN 14.4 g/dL 06/18/2018 Cbc With Differential/Platelet 34461 HEMATOCRIT 44.1 % 06/18/2018 Cbc With Differential/Platelet 89452 MCV 85.9 fL 06/18/2018 Cbc With Differential/Platelet 81541 MCH 28.1 pg 06/18/2018 Cbc With Differential/Platelet 52010 MCHC 32.7 g/dL 06/18/2018 Cbc With Differential/Platelet 55530 RDW-CV 13.4 % 06/18/2018 Cbc With Differential/Platelet 96793 PLATELET COUNT 287 thou/uL 06/18/2018 Cbc With Differential/Platelet 98148 NEUTROPHIL % 53.9 % 06/18/2018 Cbc With Differential/Platelet 56291 LYMPHOCYTE % 36.1 % 06/18/2018 Cbc With Differential/Platelet 59995 MONOCYTE % 7.4 % 06/18/2018 Cbc With Differential/Platelet 05278 EOS % 1.9 % 06/18/2018 Cbc With Differential/Platelet 01260 BASO % 0.8 % 06/18/2018 Cbc With Differential/Platelet 41978 NEUTROPHIL ABS # 2.45 thou/uL 06/18/2018 Cbc With Differential/Platelet 43962 LYMPH ABS # 1.64 thou/uL 06/18/2018 Cbc With Differential/Platelet 09588 MONOCYTE ABS # 0.34 thou/uL 06/18/2018 Cbc With Differential/Platelet 05345 EOS ABS # 0.09 thou/uL 8 Cbc With Differential/Platelet 31233 BASO ABS # 0.04 thou/uL 06/18/2018 Review of Systems System Result Effective Dates Constitutional recent illness 06/07/2019 Constitutional No chills 06/07/2019 Constitutional fatigue 0 06/07/2019 Constitutional No fever 06/07/2019 Constitutional No insomnia 06/07/2019 Constitutional No malaise 06/07/2019 Eyes No eye discharge Ears/Nose/Throat/Neck No dizziness 06/07/2019 Ears/Nose/Throat/Neck No nasal allergies 06/07/2019 Ears/Nose/Throat/Neck No nasal discharge 06/07/2019 Ears/Nose/Throat/Neck No sore throat 06/07/2019 Ears/Nose/Throat/Neck No postnasal drip 06/07/2019 Ears/Nose/Throat/Neck No sinus congestion 06/07/2019 Cardiovascular No chest pain/pressure 06/07/2019 Cardiovascular No dyspnea 06/07/2019 Cardiovascular hypertension 06/07/2019 Respiratory No chest congestion 06/07/2019 Respiratory No cough Respiratory No dyspnea 0 06/07/2019 Gastrointestinal No abdominal pain 06/07/2019 Gastrointestinal No constipation 06/07/2019 Gastrointestinal No diarrhea 06/07/2019 Gastrointestinal dysphagia 06/07/2019 Gastrointestinal gastroesophageal reflux 06/07/2019 Genitourinary/Nephrology No dysuria 06/07/2019 Musculoskeletal stiffness 06/07/2019 Musculoskeletal back pain 06/07/2019 Musculoskeletal myalgias 06/07/2019 Musculoskeletal neck pain 06/07/2019 Dermatologic No sores Neurologic No alteration of consciousness 06/07/2019 Neurologic No mental status change 06/07/2019 Psychiatric No anxiety 0 06/07/2019 Psychiatric No depression 06/07/2019 Dermatologic No rash Dermatologic pigmentation change 06/07/2019 Constitutional recent illness 05/05/2019 Constitutional No chills 05/05/2019 Constitutional fatigue 0 05/05/2019 Constitutional No fever 05/05/2019 Constitutional No insomnia 05/05/2019 Constitutional No malaise 05/05/2019 Eyes No eye discharge Ears/Nose/Throat/Neck No dizziness 05/05/2019 Ears/Nose/Throat/Neck No nasal allergies 05/05/2019 Ears/Nose/Throat/Neck No nasal discharge 05/05/2019 Ears/Nose/Throat/Neck No sore throat 05/05/2019 Ears/Nose/Throat/Neck No postnasal drip 05/05/2019 Ears/Nose/Throat/Neck No sinus congestion 05/05/2019 Cardiovascular No chest pain/pressure 05/05/2019 Cardiovascular No dyspnea 05/05/2019 Cardiovascular hypertension 05/05/2019 Respiratory No chest congestion 05/05/2019 Respiratory No cough Respiratory No dyspnea 0 05/05/2019 Gastrointestinal No abdominal pain 05/05/2019 Gastrointestinal No constipation 05/05/2019 Gastrointestinal No diarrhea 05/05/2019 Gastrointestinal No gastroesophageal reflu x 05/05/2019 Genitourinary/Nephrology No dysuria 05/05/2019 Musculoskeletal stiffness 05/05/2019 Musculoskeletal back pain 05/05/2019 Musculoskeletal myalgias 05/05/2019 Musculoskeletal neck pain 05/05/2019 Dermatologic No rash Dermatologic No sores Neurologic No alteration of consciousness 05/05/2019 Neurologic No mental status change 05/05/2019 Psychiatric No anxiety 0 05/05/2019 Psychiatric No depression 05/05/2019 Constitutional recent illness 04/20/2019 Constitutional No chills 04/20/2019 Constitutional fatigue 0 04/20/2019 Constitutional No fever 04/20/2019 Constitutional No insomnia 04/20/2019 Constitutional No malaise 04/20/2019 Eyes No eye discharge Ears/Nose/Throat/Neck No dizziness 04/20/2019 Ears/Nose/Throat/Neck No nasal allergies 04/20/2019 Ears/Nose/Throat/Neck No nasal discharge 04/20/2019 Ears/Nose/Throat/Neck No sore throat 04/20/2019 Ears/Nose/Throat/Neck No postnasal drip 04/20/2019 Ears/Nose/Throat/Neck No sinus congestion 04/20/2019 Cardiovascular No chest pain/pressure 04/20/2019 Cardiovascular No dyspnea 04/20/2019 Cardiovascular hypertension 04/20/2019 Respiratory No chest congestion 04/20/2019 Respiratory No cough 03/2019 Respiratory No dyspnea 0 04/20/2019 Gastrointestinal No abdominal pain 04/20/2019 Gastrointestinal No constipation 04/20/2019 Gastrointestinal No diarrhea 04/20/2019 Gastrointestinal gastroesophageal reflux 04/20/2019 Genitourinary/Nephrology No dysuria 04/20/2019 Musculoskeletal stiffness 04/20/2019 Musculoskeletal back pain 04/20/2019 Musculoskeletal myalgias 04/20/2019 Musculoskeletal neck pain 04/20/2019 Dermatologic No rash 03/2019 Dermatologic No sores Neurologic No alteration of consciousness 04/20/2019 Neurologic No mental status change 04/20/2019 Psychiatric No anxiety 0 04/20/2019 Psychiatric No depression 04/20/2019 Gastrointestinal dysphagia 04/20/2019 Constitutional recent illness 12/29/2018 Constitutional No chills 12/29/2018 Constitutional fatigue 0 12/29/2018 Constitutional No fever 12/29/2018 Constitutional No insomnia 12/29/2018 Constitutional No malaise 12/29/2018 Eyes No eye discharge Ears/Nose/Throat/Neck No dizziness 12/29/2018 Ears/Nose/Throat/Neck No nasal allergies 12/29/2018 Ears/Nose/Throat/Neck No nasal discharge 12/29/2018 Ears/Nose/Throat/Neck No sore throat 12/29/2018 Ears/Nose/Throat/Neck No postnasal drip 12/29/2018 Ears/Nose/Throat/Neck No sinus congestion 12/29/2018 Cardiovascular No chest pain/pressure 12/29/2018 Cardiovascular No dyspnea 12/29/2018 Cardiovascular hypertension 12/29/2018 Respiratory No chest congestion 12/29/2018 Respiratory No cough Respiratory No dyspnea 0 12/29/2018 Gastrointestinal No abdominal pain 12/29/2018 Gastrointestinal No constipation 12/29/2018 Gastrointestinal No diarrhea 12/29/2018 Gastrointestinal No gastroesophageal reflu x 12/29/2018 Genitourinary/Nephrology No dysuria 12/29/2018 Musculoskeletal stiffness 12/29/2018 Musculoskeletal back pain 12/29/2018 Musculoskeletal myalgias 12/29/2018 Musculoskeletal neck pain 12/29/2018 Dermatologic No rash Dermatologic No sores Neurologic No alteration of consciousness 12/29/2018 Neurologic No mental status change 12/29/2018 Psychiatric No anxiety 0 12/29/2018 Psychiatric No depression 12/29/2018 Constitutional No recent illness 12/20/2018 Constitutional No chills 12/20/2018 Constitutional No fever 12/20/2018 Eyes No eye erythema 02/2019 Ears/Nose/Throat/Neck No nasal discharge 12/20/2018 Cardiovascular No chest pain/pressure 12/20/2018 Cardiovascular No dyspnea 12/20/2018 Respiratory No cough 02/2019 Respiratory No dyspnea 0 12/20/2018 Musculoskeletal joint complaint 12/20/2018 Neurologic No alteration of consciousness 12/20/2018 Neurologic No mental status change 12/20/2018 Constitutional recent illness 12/16/2018 Constitutional No chills 12/16/2018 Constitutional fatigue 0 12/16/2018 Constitutional No fever 12/16/2018 Constitutional No insomnia 12/16/2018 Constitutional No malaise 12/16/2018 Eyes No eye discharge Ears/Nose/Throat/Neck No dizziness 12/16/2018 Ears/Nose/Throat/Neck No nasal allergies 12/16/2018 Ears/Nose/Throat/Neck No nasal discharge 12/16/2018 Ears/Nose/Throat/Neck No sore throat 12/16/2018 Ears/Nose/Throat/Neck No postnasal drip 12/16/2018 Ears/Nose/Throat/Neck No sinus congestion 12/16/2018 Cardiovascular No chest pain/pressure 12/16/2018 Cardiovascular No dyspnea 12/16/2018 Cardiovascular hypertension 12/16/2018 Respiratory No chest congestion 12/16/2018 Respiratory No cough Respiratory No dyspnea 0 12/16/2018 Gastrointestinal No abdominal pain 12/16/2018 Gastrointestinal No constipation 12/16/2018 Gastrointestinal No diarrhea 12/16/2018 Gastrointestinal No gastroesophageal reflu x 12/16/2018 Genitourinary/Nephrology No dysuria 12/16/2018 Musculoskeletal back pain 12/16/2018 Musculoskeletal neck pain 12/16/2018 Neurologic No alteration of consciousness 12/16/2018 Neurologic No mental status change 12/16/2018 Psychiatric No anxiety 0 12/16/2018 Psychiatric No depression 12/16/2018 Musculoskeletal myalgias 12/16/2018 Musculoskeletal stiffness 12/16/2018 Dermatologic No rash Dermatologic No sores Constitutional recent illness 11/01/2018 Constitutional No chills 11/01/2018 Constitutional fatigue 1 01/02/2018 Constitutional No fever 11/01/2018 Constitutional No insomnia 11/01/2018 Constitutional No malaise 11/01/2018 Eyes No eye discharge Ears/Nose/Throat/Neck No dizziness 11/01/2018 Ears/Nose/Throat/Neck No nasal allergies 11/01/2018 Ears/Nose/Throat/Neck No nasal discharge 11/01/2018 Ears/Nose/Throat/Neck No sore throat 11/01/2018 Ears/Nose/Throat/Neck No postnasal drip 11/01/2018 Ears/Nose/Throat/Neck No sinus congestion 11/01/2018 Cardiovascular No chest pain/pressure 11/01/2018 Cardiovascular No dyspnea 11/01/2018 Cardiovascular hypertension 11/01/2018 Respiratory No chest congestion 11/01/2018 Respiratory No cough Respiratory No dyspnea 1 01/02/2018 Gastrointestinal No abdominal pain 11/01/2018 Gastrointestinal No constipation 11/01/2018 Gastrointestinal No diarrhea 11/01/2018 Gastrointestinal No gastroesophageal reflu x 11/01/2018 Gastrointestinal No nausea 11/01/2018 Gastrointestinal No vomiting 11/01/2018 Genitourinary/Nephrology No dysuria 11/01/2018 Musculoskeletal back pain 11/01/2018 Musculoskeletal neck pain 11/01/2018 Dermatologic rash 2017 Neurologic No alteration of consciousness 11/01/2018 Neurologic No mental status change 11/01/2018 Psychiatric No anxiety 1 01/02/2018 Psychiatric No depression 11/01/2018 Constitutional recent illness 09/24/2018 Constitutional chills Constitutional No diaphoresis 09/24/2018 Eyes No eye erythema 07/2018 Ears/Nose/Throat/Neck nasal allergies 09/24/2018 Ears/Nose/Throat/Neck nasal discharge 09/24/2018 Ears/Nose/Throat/Neck postnasal drip 09/24/2018 Ears/Nose/Throat/Neck sinus congestion 09/24/2018 Ears/Nose/Throat/Neck sore throat 09/24/2018 Cardiovascular No chest pain/pressure 09/24/2018 Cardiovascular No dyspnea 09/24/2018 Respiratory No chest congestion 09/24/2018 Respiratory cough 2017 Respiratory No dyspnea 1 11/24/2017 Gastrointestinal No constipation 09/24/2018 Gastrointestinal No diarrhea 09/24/2018 Gastrointestinal No nausea 09/24/2018 Gastrointestinal No vomiting 09/24/2018 Dermatologic No rash 07/2018 Neurologic No alteration of consciousness 09/24/2018 Neurologic No mental status change 09/24/2018 Constitutional No fever 09/24/2018 Constitutional malaise 1 11/24/2017 Constitutional recent illness 08/16/2018 Constitutional No chills 08/16/2018 Constitutional fatigue 1 Constitutional No fever 08/16/2018 Constitutional No insomnia 08/16/2018 Constitutional No malaise 08/16/2018 Eyes No eye discharge Ears/Nose/Throat/Neck No dizziness 08/16/2018 Ears/Nose/Throat/Neck No nasal allergies 08/16/2018 Ears/Nose/Throat/Neck No nasal discharge 08/16/2018 Ears/Nose/Throat/Neck No sore throat 08/16/2018 Ears/Nose/Throat/Neck No postnasal drip 08/16/2018 Ears/Nose/Throat/Neck No sinus congestion 08/16/2018 Cardiovascular No chest pain/pressure 08/16/2018 Cardiovascular No dyspnea 08/16/2018 Cardiovascular hypertension 08/16/2018 Respiratory No chest congestion 08/16/2018 Respiratory No cough 11/2017 Respiratory No dyspnea 1 Gastrointestinal No abdominal pain 08/16/2018 Gastrointestinal No constipation 08/16/2018 Gastrointestinal No diarrhea 08/16/2018 Gastrointestinal No gastroesophageal reflu x 08/16/2018 Gastrointestinal No nausea 08/16/2018 Gastrointestinal No vomiting 08/16/2018 Genitourinary/Nephrology No dysuria 08/16/2018 Musculoskeletal back pain 08/16/2018 Musculoskeletal neck pain 08/16/2018 Dermatologic rash 2017 Neurologic No alteration of consciousness 08/16/2018 Neurologic No mental status change 08/16/2018 Psychiatric No anxiety 1 Psychiatric No depression 08/16/2018 Constitutional recent illness 08/02/2018 Constitutional No chills 08/02/2018 Constitutional fatigue 0 08/02/2018 Constitutional No fever 08/02/2018 Constitutional No insomnia 08/02/2018 Constitutional No malaise 08/02/2018 Eyes No eye discharge Ears/Nose/Throat/Neck No dizziness 08/02/2018 Ears/Nose/Throat/Neck No nasal allergies 08/02/2018 Ears/Nose/Throat/Neck No nasal discharge 08/02/2018 Ears/Nose/Throat/Neck No postnasal drip 08/02/2018 Ears/Nose/Throat/Neck No sinus congestion 08/02/2018 Ears/Nose/Throat/Neck No sore throat 08/02/2018 Cardiovascular No chest pain/pressure 08/02/2018 Cardiovascular No dyspnea 08/02/2018 Cardiovascular hypertension 08/02/2018 Respiratory No chest congestion 08/02/2018 Respiratory No cough Respiratory No dyspnea 0 08/02/2018 Gastrointestinal No abdominal pain 08/02/2018 Gastrointestinal No constipation 08/02/2018 Gastrointestinal No diarrhea 08/02/2018 Gastrointestinal No gastroesophageal reflu x 08/02/2018 Gastrointestinal No nausea 08/02/2018 Gastrointestinal No vomiting 08/02/2018 Genitourinary/Nephrology No dysuria 08/02/2018 Musculoskeletal back pain 08/02/2018 Musculoskeletal neck pain 08/02/2018 Dermatologic rash 2017 Neurologic No alteration of consciousness 08/02/2018 Neurologic No mental status change 08/02/2018 Psychiatric No anxiety 0 08/02/2018 Psychiatric No depression 08/02/2018 Constitutional recent illness 05/31/2018 Constitutional No chills 05/31/2018 Constitutional fatigue 0 05/31/2018 Constitutional No fever 05/31/2018 Constitutional No insomnia 05/31/2018 Constitutional No malaise 05/31/2018 Eyes No eye discharge Ears/Nose/Throat/Neck No dizziness 05/31/2018 Ears/Nose/Throat/Neck No nasal allergies 05/31/2018 Ears/Nose/Throat/Neck No nasal discharge 05/31/2018 Ears/Nose/Throat/Neck No postnasal drip 05/31/2018 Ears/Nose/Throat/Neck No sinus congestion 05/31/2018 Ears/Nose/Throat/Neck No sore throat 05/31/2018 Cardiovascular No chest pain/pressure 05/31/2018 Cardiovascular No dyspnea 05/31/2018 Cardiovascular hypertension 05/31/2018 Respiratory No chest congestion 05/31/2018 Respiratory No cough Respiratory No dyspnea 0 05/31/2018 Gastrointestinal No abdominal pain 05/31/2018 Gastrointestinal No constipation 05/31/2018 Gastrointestinal No diarrhea 05/31/2018 Gastrointestinal No gastroesophageal reflu x 05/31/2018 Gastrointestinal No nausea 05/31/2018 Gastrointestinal No vomiting 05/31/2018 Musculoskeletal back pain 05/31/2018 Musculoskeletal neck pain 05/31/2018 Neurologic No alteration of consciousness 05/31/2018 Neurologic No mental status change 05/31/2018 Musculoskeletal muscle weakness 05/31/2018 Neurologic pain, limb Neurologic neck pain Neurologic paresthesia 0 05/31/2018 Constitutional recent illness 05/20/2018 Constitutional No chills 05/20/2018 Constitutional fatigue 0 05/20/2018 Constitutional No fever 05/20/2018 Constitutional No insomnia 05/20/2018 Constitutional No malaise 05/20/2018 Ears/Nose/Throat/Neck No dizziness 05/20/2018 Ears/Nose/Throat/Neck No nasal allergies 05/20/2018 Ears/Nose/Throat/Neck No nasal discharge 05/20/2018 Ears/Nose/Throat/Neck No postnasal drip 05/20/2018 Ears/Nose/Throat/Neck No sinus congestion 05/20/2018 Ears/Nose/Throat/Neck No sore throat 05/20/2018 Cardiovascular No chest pain/pressure 05/20/2018 Cardiovascular No dyspnea 05/20/2018 Respiratory No chest congestion 05/20/2018 Respiratory No cough 03/2018 Respiratory No dyspnea 0 05/20/2018 Gastrointestinal No abdominal pain 05/20/2018 Gastrointestinal No constipation 05/20/2018 Gastrointestinal No diarrhea 05/20/2018 Gastrointestinal No gastroesophageal reflu x 05/20/2018 Gastrointestinal No nausea 05/20/2018 Gastrointestinal No vomiting 05/20/2018 Dermatologic rash 2017 Neurologic No alteration of consciousness 05/20/2018 Neurologic No mental status change 05/20/2018 Musculoskeletal back pain 05/20/2018 Musculoskeletal neck pain 05/20/2018 Genitourinary/Nephrology No dysuria 05/20/2018 Eyes No eye discharge Cardiovascular hypertension 05/20/2018 Constitutional recent illness 05/10/2018 Constitutional No chills 05/10/2018 Constitutional fatigue 0 05/10/2018 Constitutional No fever 05/10/2018 Constitutional No insomnia 05/10/2018 Constitutional No malaise 05/10/2018 Eyes vision change 05/10 Ears/Nose/Throat/Neck No dizziness 05/10/2018 Ears/Nose/Throat/Neck No nasal allergies 05/10/2018 Ears/Nose/Throat/Neck No sore throat 05/10/2018 Ears/Nose/Throat/Neck No postnasal drip 05/10/2018 Ears/Nose/Throat/Neck No sinus congestion 05/10/2018 Cardiovascular No chest pain/pressure 05/10/2018 Cardiovascular No dyspnea 05/10/2018 Respiratory No cough Respiratory No dyspnea 0 05/10/2018 Gastrointestinal No abdominal pain 05/10/2018 Gastrointestinal No constipation 05/10/2018 Gastrointestinal No diarrhea 05/10/2018 Gastrointestinal No gastroesophageal reflu x 05/10/2018 Gastrointestinal No nausea 05/10/2018 Gastrointestinal No vomiting 05/10/2018 Ears/Nose/Throat/Neck No nasal discharge 05/10/2018 Respiratory No chest congestion 05/10/2018 Musculoskeletal back pain 05/10/2018 Dermatologic rash 2017 Neurologic No alteration of consciousness 05/10/2018 Neurologic No mental status change 05/10/2018 Constitutional recent illness 01/15/2018 Constitutional No chills 01/15/2018 Constitutional No fatigue 01/15/2018 Constitutional No fever 01/15/2018 Constitutional No insomnia 01/15/2018 Constitutional No malaise 01/15/2018 Eyes vision change 01/15 Ears/Nose/Throat/Neck No dental pain 01/15/2018 Ears/Nose/Throat/Neck No dizziness 01/15/2018 Ears/Nose/Throat/Neck No dysphagia 01/15/2018 Ears/Nose/Throat/Neck No headache 01/15/2018 Ears/Nose/Throat/Neck No hearing loss 01/15/2018 Ears/Nose/Throat/Neck No nasal allergies 01/15/2018 Ears/Nose/Throat/Neck No sore throat 01/15/2018 Ears/Nose/Throat/Neck No postnasal drip 01/15/2018 Ears/Nose/Throat/Neck No sinus congestion 01/15/2018 Cardiovascular No chest pain/pressure 01/15/2018 Cardiovascular No dyspnea 01/15/2018 Cardiovascular No edema 01/15/2018 Cardiovascular No exercise intolerance 01/15/2018 Cardiovascular No fatigue 01/15/2018 Cardiovascular No near-syncope/dizziness 01/15/2018 Respiratory No chest tightness 01/15/2018 Respiratory No cough 12/2017 Respiratory No dyspnea 0 01/15/2018 Respiratory No pedal edema 01/15/2018 Gastrointestinal No abdominal pain 01/15/2018 Gastrointestinal No constipation 01/15/2018 Gastrointestinal No diarrhea 01/15/2018 Gastrointestinal No gastroesophageal reflu x 01/15/2018 Gastrointestinal No nausea 01/15/2018 Gastrointestinal No vomiting 01/15/2018 Genitourinary/Nephrology No dysuria 01/15/2018 Genitourinary/Nephrology No nocturia 01/15/2018 Genitourinary/Nephrology No urinary incontinence 01/15/2018 Musculoskeletal No stiffness 01/15/2018 Musculoskeletal No swelling 01/15/2018 Musculoskeletal No muscle weakness 01/15/2018 Musculoskeletal No myalgias 01/15/2018 Dermatologic No rash 12/2017 Dermatologic No sores Neurologic No dizziness 01/15/2018 Neurologic No headache 0 01/15/2018 Neurologic No neck pain 01/15/2018 Neurologic No syncope Psychiatric No anxiety 0 01/15/2018 Psychiatric No depression 01/15/2018 Constitutional recent illness 12/15/2017 Constitutional No chills 12/15/2017 Constitutional No fatigue 12/15/2017 Constitutional No fever 12/15/2017 Constitutional No insomnia 12/15/2017 Constitutional No malaise 12/15/2017 Eyes vision change 12/15 Ears/Nose/Throat/Neck No dental pain 12/15/2017 Ears/Nose/Throat/Neck No dizziness 12/15/2017 Ears/Nose/Throat/Neck No dysphagia 12/15/2017 Ears/Nose/Throat/Neck No headache 12/15/2017 Ears/Nose/Throat/Neck No hearing loss 12/15/2017 Ears/Nose/Throat/Neck No nasal allergies 12/15/2017 Ears/Nose/Throat/Neck No sore throat 12/15/2017 Ears/Nose/Throat/Neck No postnasal drip 12/15/2017 Ears/Nose/Throat/Neck No sinus congestion 12/15/2017 Cardiovascular No chest pain/pressure 12/15/2017 Cardiovascular No dyspnea 12/15/2017 Cardiovascular No edema 12/15/2017 Cardiovascular No exercise intolerance 12/15/2017 Cardiovascular No fatigue 12/15/2017 Cardiovascular No near-syncope/dizziness 12/15/2017 Respiratory No chest tightness 12/15/2017 Respiratory No cough Respiratory No dyspnea 0 12/15/2017 Respiratory No pedal edema 12/15/2017 Gastrointestinal No abdominal pain 12/15/2017 Gastrointestinal No constipation 12/15/2017 Gastrointestinal No diarrhea 12/15/2017 Gastrointestinal No gastroesophageal reflu x 12/15/2017 Gastrointestinal No nausea 12/15/2017 Gastrointestinal No vomiting 12/15/2017 Genitourinary/Nephrology No dysuria 12/15/2017 Genitourinary/Nephrology No nocturia 12/15/2017 Genitourinary/Nephrology No urinary incontinence 12/15/2017 Musculoskeletal No stiffness 12/15/2017 Musculoskeletal No swelling 12/15/2017 Musculoskeletal No muscle weakness 12/15/2017 Musculoskeletal No myalgias 12/15/2017 Dermatologic No rash Dermatologic No sores Neurologic No dizziness 12/15/2017 Neurologic No headache 0 12/15/2017 Neurologic No neck pain 12/15/2017 Neurologic No syncope Psychiatric No anxiety 0 12/15/2017 Psychiatric No depression 12/15/2017 Constitutional No recent illness 08/03/2015 Constitutional No fatigue 08/03/2015 Constitutional No fever 08/03/2015 Dermatologic No drainage 08/03/2015 Dermatologic laceration 08/03/2015 Physical Exam Exam Name System Name It em Name Status Result Effective Dates Notes Full Exam - General 1994 Constitutional general appearance Overall: well developed 06/07/2019 None Full Exam - General 1994 Constitutional general appearance Overall: in no acute distress 06/07/2019 None Full Exam - General 1994 Constitutional general appearance Overall: well nourished 06/07/2019 None Full Exam - General 1994 Constitutional general appearance Hygiene/Attention to Grooming: good hygiene 06/07/2019 None Full Exam - General 1994 Eyes conjunctiva/eyelids Overall: conjunctiva clear 06/07/2019 None Full Exam - General 1994 Eyes conjunctiva/eyelids Overall: cornea clear 06/07/2019 None Full Exam - General 1994 Eyes conjunctiva/eyelids Overall: eyelids normal 06/07/2019 None Full Exam - General 1994 Ears/Nose/Throat otoscopic exam Overall: external auditory canals clear 06/07/2019 None Full Exam - General 1994 Ears/Nose/Throat otoscopic exam Overall: tympanic membranes clear 06/07/2019 None Full Exam - General 1994 Ears/Nose/Throat lips/teeth/gingiva Overall: benign lips 06/07/2019 None Full Exam - General 1994 Ears/Nose/Throat oral cavity/pharynx/larynx Overall: oral mucosa clear 06/07/2019 None Full Exam - General 1994 Ears/Nose/Throat oral cavity/pharynx/larynx Overall: oropharyngeal mucosa clear 06/07/2019 None Full Exam - General 1994 Respiratory auscultation Overall: breath sounds clear bilaterally 06/07/2019 None Full Exam - General 1994 Respiratory respiratory effort/rhythm Overall: no retractions 06/07/2019 None Full Exam - General 1994 Respiratory respiratory effort/rhythm Overall: normal rate 06/07/2019 None Full Exam - General 1994 Cardiovascular extremities Overall: no clubbing 06/07/2019 None Full Exam - General 1994 Cardiovascular auscultation of heart Overall: regular rate 06/07/2019 None Full Exam - General 1994 Cardiovascular auscultation of heart Overall: normal heart sounds 06/07/2019 None Full Exam - General 1994 Musculoskeletal spine, ribs and pelvis Spine: tender @ cervical spine 06/07/2019 None Full Exam - General 1994 Musculoskeletal spine, ribs and pelvis Spine: tender @ thoracic spine 06/07/2019 None Full Exam - General 1994 Musculoskeletal head and neck Overall: head atraumatic 06/07/2019 None Full Exam - General 1994 Neurologic cranial nerves Overall: crainial nerves 2 - 12 grossly intact 06/07/2019 None Full Exam - General 1994 Psychiatric orientation/consciousness Overall: oriented to person, place and time 06/07/2019 None Full Exam - General 1994 Psychiatric mood and affect Overall: normal mood and affect 06/07/2019 None Full Exam - General 1994 Integument inspection of skin Dermatitis: thickened 06/07/2019 on neck and chest Full Exam - General 1994 Constitutional general appearance Overall: well developed 05/05/2019 None Full Exam - General 1994 Constitutional general appearance Overall: in no acute distress 05/05/2019 None Full Exam - General 1994 Constitutional general appearance Overall: well nourished 05/05/2019 None Full Exam - General 1994 Constitutional general appearance Hygiene/Attention to Grooming: good hygiene 05/05/2019 None Full Exam - General 1994 Eyes conjunctiva/eyelids Overall: conjunctiva clear 05/05/2019 None Full Exam - General 1994 Eyes conjunctiva/eyelids Overall: cornea clear 05/05/2019 None Full Exam - General 1994 Eyes conjunctiva/eyelids Overall: eyelids normal 05/05/2019 None Full Exam - General 1994 Ears/Nose/Throat oral cavity/pharynx/larynx Overall: oral mucosa clear 05/05/2019 None Full Exam - General 1994 Ears/Nose/Throat oral cavity/pharynx/larynx Overall: oropharyngeal mucosa clear 05/05/2019 None Full Exam - General 1994 Respiratory auscultation Overall: breath sounds clear bilaterally 05/05/2019 None Full Exam - General 1994 Respiratory respiratory effort/rhythm Overall: no retractions 05/05/2019 None Full Exam - General 1994 Respiratory respiratory effort/rhythm Overall: normal rate 05/05/2019 None Full Exam - General 1994 Cardiovascular extremities Overall: no clubbing 05/05/2019 None Full Exam - General 1994 Cardiovascular auscultation of heart Overall: regular rate 05/05/2019 None Full Exam - General 1994 Cardiovascular auscultation of heart Overall: normal heart sounds 05/05/2019 None Full Exam - General 1994 Musculoskeletal spine, ribs and pelvis Spine: tender @ cervical spine 05/05/2019 None Full Exam - General 1994 Musculoskeletal spine, ribs and pelvis Spine: tender @ thoracic spine 05/05/2019 None Full Exam - General 1994 Musculoskeletal head and neck Overall: head atraumatic 05/05/2019 None Full Exam - General 1994 Neurologic cranial nerves Overall: crainial nerves 2 - 12 grossly intact 05/05/2019 None Full Exam - General 1994 Psychiatric orientation/consciousness Overall: oriented to person, place and time 05/05/2019 None Full Exam - General 1994 Psychiatric mood and affect Overall: normal mood and affect 05/05/2019 None Full Exam - General 1994 Constitutional general appearance Overall: well developed 04/20/2019 None Full Exam - General 1994 Constitutional general appearance Overall: in no acute distress 04/20/2019 None Full Exam - General 1994 Constitutional general appearance Overall: well nourished 04/20/2019 None Full Exam - General 1994 Constitutional general appearance Hygiene/Attention to Grooming: good hygiene 04/20/2019 None Full Exam - General 1994 Eyes conjunctiva/eyelids Overall: conjunctiva clear 04/20/2019 None Full Exam - General 1994 Eyes conjunctiva/eyelids Overall: cornea clear 04/20/2019 None Full Exam - General 1994 Eyes conjunctiva/eyelids Overall: eyelids normal 04/20/2019 None Full Exam - General 1994 Ears/Nose/Throat otoscopic exam Overall: external auditory canals clear 04/20/2019 None Full Exam - General 1994 Ears/Nose/Throat otoscopic exam Overall: tympanic membranes clear 04/20/2019 None Full Exam - General 1994 Ears/Nose/Throat lips/teeth/gingiva Overall: benign lips 04/20/2019 None Full Exam - General 1994 Ears/Nose/Throat oral cavity/pharynx/larynx Overall: oral mucosa clear 04/20/2019 None Full Exam - General 1994 Ears/Nose/Throat oral cavity/pharynx/larynx Overall: oropharyngeal mucosa clear 04/20/2019 None Full Exam - General 1994 Respiratory auscultation Overall: breath sounds clear bilaterally 04/20/2019 None Full Exam - General 1994 Respiratory respiratory effort/rhythm Overall: no retractions 04/20/2019 None Full Exam - General 1994 Respiratory respiratory effort/rhythm Overall: normal rate 04/20/2019 None Full Exam - General 1994 Cardiovascular extremities Overall: no clubbing 04/20/2019 None Full Exam - General 1994 Cardiovascular auscultation of heart Overall: regular rate 04/20/2019 None Full Exam - General 1994 Cardiovascular auscultation of heart Overall: normal heart sounds 04/20/2019 None Full Exam - General 1994 Musculoskeletal spine, ribs and pelvis Spine: tender @ cervical spine 04/20/2019 None Full Exam - General 1994 Musculoskeletal spine, ribs and pelvis Spine: tender @ thoracic spine 04/20/2019 None Full Exam - General 1994 Musculoskeletal head and neck Overall: head atraumatic 04/20/2019 None Full Exam - General 1994 Neurologic cranial nerves Overall: crainial nerves 2 - 12 grossly intact 04/20/2019 None Full Exam - General 1994 Psychiatric orientation/consciousness Overall: oriented to person, place and time 04/20/2019 None Full Exam - General 1994 Psychiatric mood and affect Overall: normal mood and affect 04/20/2019 None Full Exam - General 1994 Constitutional general appearance Overall: well developed 12/29/2018 None Full Exam - General 1994 Constitutional general appearance Overall: in no acute distress 12/29/2018 None Full Exam - General 1994 Constitutional general appearance Overall: well nourished 12/29/2018 None Full Exam - General 1994 Constitutional general appearance Hygiene/Attention to Grooming: good hygiene 12/29/2018 None Full Exam - General 1994 Eyes conjunctiva/eyelids Overall: conjunctiva clear 12/29/2018 None Full Exam - General 1994 Eyes conjunctiva/eyelids Overall: cornea clear 12/29/2018 None Full Exam - General 1994 Eyes conjunctiva/eyelids Overall: eyelids normal 12/29/2018 None Full Exam - General 1994 Ears/Nose/Throat oral cavity/pharynx/larynx Overall: oral mucosa clear 12/29/2018 None Full Exam - General 1994 Ears/Nose/Throat oral cavity/pharynx/larynx Overall: oropharyngeal mucosa clear 12/29/2018 None Full Exam - General 1994 Respiratory auscultation Overall: breath sounds clear bilaterally 12/29/2018 None Full Exam - General 1994 Respiratory respiratory effort/rhythm Overall: no retractions 12/29/2018 None Full Exam - General 1994 Respiratory respiratory effort/rhythm Overall: normal rate 12/29/2018 None Full Exam - General 1994 Cardiovascular extremities Overall: no clubbing 12/29/2018 None Full Exam - General 1994 Cardiovascular auscultation of heart Overall: regular rate 12/29/2018 None Full Exam - General 1994 Cardiovascular auscultation of heart Overall: normal heart sounds 12/29/2018 None Full Exam - General 1994 Musculoskeletal spine, ribs and pelvis Spine: tender @ thoracic spine 12/29/2018 None Full Exam - General 1994 Musculoskeletal head and neck Overall: head atraumatic 12/29/2018 None Full Exam - General 1994 Neurologic cranial nerves Overall: crainial nerves 2 - 12 grossly intact 12/29/2018 None Full Exam - General 1994 Psychiatric orientation/consciousness Overall: oriented to person, place and time 12/29/2018 None Full Exam - General 1994 Psychiatric mood and affect Overall: normal mood and affect 12/29/2018 None Full Exam - General 1994 Musculoskeletal spine, ribs and pelvis Spine: tender @ cervical spine 12/29/2018 None Full Exam - Orthopedics Constitutional general appearance Overall: well nourished 12/20/2018 None Full Exam - Orthopedics Constitutional general appearance Overall: well developed 12/20/2018 None Full Exam - Orthopedics Constitutional general appearance Overall: in no acute distress 12/20/2018 None Full Exam - Orthopedics Eyes conjunctiva/eyelids Overall: conjunctiva clear 12/20/2018 None Full Exam - Orthopedics Eyes conjunctiva/eyelids Overall: eyelids normal 12/20/2018 None Full Exam - Orthopedics Ears/Nose/Throat lips/teeth/gingiva Overall: benign lips 12/20/2018 None Full Exam - Orthopedics Ears/Nose/Throat oral cavity/pharynx/larynx Overall: oral mucosa clear 12/20/2018 None Full Exam - Orthopedics Respiratory respiratory effort/rhythm Overall: no retractions 12/20/2018 None Full Exam - Orthopedics Respiratory respiratory effort/rhythm Overall: normal rate 12/20/2018 None Full Exam - Orthopedics Psychiatric orientation/consciousness Overall: oriented to person, place and time 12/20/2018 None Full Exam - Orthopedics Psychiatric mood and affect Overall: normal mood and affect 12/20/2018 None Full Exam - Orthopedics Psychiatric appearance Overall: well-groomed, good eye contact 12/20/2018 None Full Exam - Orthopedics MS: right up per extremity insp & palp - RUE Upper arm: deformity 12/20/2018 dayna Full Exam - General 1994 Constitutional general appearance Overall: well developed 12/16/2018 None Full Exam - General 1994 Constitutional general appearance Overall: in no acute distress 12/16/2018 None Full Exam - General 1994 Constitutional general appearance Overall: well nourished 12/16/2018 None Full Exam - General 1995 Constitutional general appearance Hygiene/Attention to Grooming: good hygiene 12/16/2018 None Full Exam - General 1995 Eyes conjunctiva/eyelids Overall: conjunctiva clear 12/16/2018 None Full Exam - General 1994 Eyes conjunctiva/eyelids Overall: cornea clear 12/16/2018 None Full Exam - General 1995 Eyes conjunctiva/eyelids Overall: eyelids normal 12/16/2018 None Full Exam - General 1994 Ears/Nose/Throat otoscopic exam Overall: external auditory canals clear 12/16/2018 None Full Exam - General 1994 Ears/Nose/Throat otoscopic exam Overall: tympanic membranes clear 12/16/2018 None Full Exam - General 1994 Ears/Nose/Throat lips/teeth/gingiva Overall: benign lips 12/16/2018 None Full Exam - General 1994 Ears/Nose/Throat oral cavity/pharynx/larynx Overall: oral mucosa clear 12/16/2018 None Full Exam - General 1995 Ears/Nose/Throat oral cavity/pharynx/larynx Overall: oropharyngeal mucosa clear 12/16/2018 None Full Exam - General 1994 Respiratory auscultation Overall: breath sounds clear bilaterally 12/16/2018 None Full Exam - General 1994 Respiratory respiratory effort/rhythm Overall: no retractions 12/16/2018 None Full Exam - General 1994 Respiratory respiratory effort/rhythm Overall: normal rate 12/16/2018 None Full Exam - General 1994 Cardiovascular extremities Overall: no clubbing 12/16/2018 None Full Exam - General 1994 Cardiovascular auscultation of heart Overall: regular rate 12/16/2018 None Full Exam - General 1994 Cardiovascular auscultation of heart Overall: normal heart sounds 12/16/2018 None Full Exam - General 1994 Musculoskeletal spine, ribs and pelvis Spine: tender @ cervical spine 12/16/2018 None Full Exam - General 1994 Musculoskeletal spine, ribs and pelvis Spine: tender @ thoracic spine 12/16/2018 None Full Exam - General 1994 Musculoskeletal head and neck Overall: head atraumatic 12/16/2018 None Full Exam - General 1994 Psychiatric orientation/consciousness Overall: oriented to person, place and time 12/16/2018 None Full Exam - General 1994 Psychiatric mood and affect Overall: normal mood and affect 12/16/2018 None Full Exam - General 1994 Neurologic cranial nerves Overall: crainial nerves 2 - 12 grossly intact 12/16/2018 None Full Exam - General 1994 Constitutional general appearance Overall: well developed 11/01/2018 None Full Exam - General 1994 Constitutional general appearance Overall: in no acute distress 11/01/2018 None Full Exam - General 1994 Constitutional general appearance Overall: well nourished 11/01/2018 None Full Exam - General 1994 Constitutional general appearance Hygiene/Attention to Grooming: good hygiene 11/01/2018 None Full Exam - General 1994 Eyes conjunctiva/eyelids Overall: conjunctiva clear 11/01/2018 None Full Exam - General 1994 Eyes conjunctiva/eyelids Overall: cornea clear 11/01/2018 None Full Exam - General 1994 Eyes conjunctiva/eyelids Overall: eyelids normal 11/01/2018 None Full Exam - General 1994 Ears/Nose/Throat otoscopic exam Overall: external auditory canals clear 11/01/2018 None Full Exam - General 1994 Ears/Nose/Throat otoscopic exam Overall: tympanic membranes clear 11/01/2018 None Full Exam - General 1994 Ears/Nose/Throat lips/teeth/gingiva Overall: benign lips 11/01/2018 None Full Exam - General 1994 Ears/Nose/Throat oral cavity/pharynx/larynx Overall: oral mucosa clear 11/01/2018 None Full Exam - General 1994 Ears/Nose/Throat oral cavity/pharynx/larynx Overall: oropharyngeal mucosa clear 11/01/2018 None Full Exam - General 1994 Respiratory auscultation Overall: breath sounds clear bilaterally 11/01/2018 None Full Exam - General 1994 Respiratory respiratory effort/rhythm Overall: no retractions 11/01/2018 None Full Exam - General 1994 Respiratory respiratory effort/rhythm Overall: normal rate 11/01/2018 None Full Exam - General 1994 Cardiovascular extremities Overall: no clubbing 11/01/2018 None Full Exam - General 1994 Cardiovascular auscultation of heart Overall: regular rate 11/01/2018 None Full Exam - General 1994 Cardiovascular auscultation of heart Overall: normal heart sounds 11/01/2018 None Full Exam - General 1994 Abdomen abdominal exam Overall: normal bowel sounds 11/01/2018 None Full Exam - General 1994 Lymphatic neck nodes Overall: anterior cervical chain benign 11/01/2018 None Full Exam - General 1994 Lymphatic neck nodes Overall: posterior cervical chain benign 11/01/2018 None Full Exam - General 1994 Musculoskeletal spine, ribs and pelvis Spine: tender @ cervical spine 11/01/2018 None Full Exam - General 1994 Musculoskeletal spine, ribs and pelvis Spine: tender @ thoracic spine 11/01/2018 None Full Exam - General 1994 Musculoskeletal head and neck Overall: head atraumatic 11/01/2018 None Full Exam - General 1994 Integument inspection of skin Location: face 11/01/2018 irritated skin on right l oateral jawline Full Exam - General 1994 Neurologic cranial nerves Overall: crainial nerves 2 - 12 grossly intact 11/01/2018 None Full Exam - General 1994 Psychiatric orientation/consciousness Overall: oriented to person, place and time 11/01/2018 None Full Exam - General 1994 Psychiatric mood and affect Overall: normal mood and affect 11/01/2018 None Full Exam - ENT Constitutional general appearance Overall: well nourished 09/24/2018 None Full Exam - ENT Constitutional general appearance Overall: well developed 09/24/2018 None Full Exam - ENT Constitutional general appearance Overall: in no acute distress 09/24/2018 None Full Exam - ENT Ears/Nose/Throat otoscopic exam Overall: external auditory canals normal 09/24/2018 None Full Exam - ENT Ears/Nose/Throat otoscopic exam Left tympanic membrane: air-fluid le raysa 09/24/2018 None Full Exam - ENT Ears/Nose/Throat otoscopic exam Right tympanic membrane: air-fluid level 09/24/2018 None Full Exam - ENT Ears/Nose/Throat lips/teeth/gingiva Overall: benign lips 09/24/2018 None Full Exam - ENT Ears/Nose/Throat oropharynx Overall: oral mucosa clear 09/24/2018 None Full Exam - ENT Ears/Nose/Throat oropharynx Posterior Pharynx: clear post nasal drainage 09/24/2018 None Full Exam - ENT Ears/Nose/Throat oropharynx Posterior Pharynx: erythema 09/24/2018 None Full Exam - ENT Respiratory inspection Overall: no retractions 09/24/2018 None Full Exam - ENT Respiratory inspection Overall: normal rate 07/2018 None Full Exam - ENT Respiratory auscultation Overall: breath sounds clear bilater ally 09/24/2018 None Full Exam - ENT Cardiovascular auscultation of heart Rate: normal rate 09/24/2018 None Full Exam - ENT Cardiovascular auscultation of heart Rhythm: regular rhythm 09/24/2018 None Full Exam - ENT Lymphatic palpation of lymph nodes Overall: anterior cervical chain benign 09/24/2018 None Full Exam - ENT Lymphatic palpation of lymph nodes Overall: posterior cervical chain benign 09/24/2018 None Full Exam - ENT Neurologic mood and affect Overall: normal mood 09/24/2018 None Full Exam - ENT Neurologic mood and affect Overall: normal affect 09/24/2018 None Full Exam - ENT Neurologic orientation Overall: oriented to person, place a nd time 09/24/2018 None Full Exam - General 1994 Constitutional general appearance Overall: well developed 08/16/2018 None Full Exam - General 1994 Constitutional general appearance Overall: in no acute distress 08/16/2018 None Full Exam - General 1994 Constitutional general appearance Overall: well nourished 08/16/2018 None Full Exam - General 1994 Constitutional general appearance Hygiene/Attention to Grooming: good hygiene 08/16/2018 None Full Exam - General 1994 Eyes conjunctiva/eyelids Overall: conjunctiva clear 08/16/2018 None Full Exam - General 1994 Eyes conjunctiva/eyelids Overall: cornea clear 08/16/2018 None Full Exam - General 1994 Eyes conjunctiva/eyelids Overall: eyelids normal 08/16/2018 None Full Exam - General 1994 Ears/Nose/Throat lips/teeth/gingiva Overall: benign lips 08/16/2018 None Full Exam - General 1994 Ears/Nose/Throat oral cavity/pharynx/larynx Overall: oral mucosa clear 08/16/2018 None Full Exam - General 1994 Ears/Nose/Throat oral cavity/pharynx/larynx Overall: oropharyngeal mucosa clear 08/16/2018 None Full Exam - General 1994 Respiratory auscultation Overall: breath sounds clear bilaterally 08/16/2018 None Full Exam - General 1994 Respiratory respiratory effort/rhythm Overall: no retractions 08/16/2018 None Full Exam - General 1994 Respiratory respiratory effort/rhythm Overall: normal rate 08/16/2018 None Full Exam - General 1994 Cardiovascular extremities Overall: no clubbing 08/16/2018 None Full Exam - General 1994 Cardiovascular auscultation of heart Overall: regular rate 08/16/2018 None Full Exam - General 1994 Cardiovascular auscultation of heart Overall: normal heart sounds 08/16/2018 None Full Exam - General 1994 Musculoskeletal head and neck Overall: head atraumatic 08/16/2018 None Full Exam - General 1994 Integument inspection of skin Location: face 08/16/2018 irritated skin on right l oateral jawline Full Exam - General 1994 Psychiatric orientation/consciousness Overall: oriented to person, place and time 08/16/2018 None Full Exam - General 1994 Psychiatric mood and affect Overall: normal mood and affect 08/16/2018 None Full Exam - General 1994 Musculoskeletal spine, ribs and pelvis Spine: tender @ cervical spine 08/16/2018 pt in neck brace ith bone stimulator in place Full Exam - General 1994 Constitutional general appearance Overall: well developed 08/02/2018 None Full Exam - General 1994 Constitutional general appearance Overall: in no acute distress 08/02/2018 None Full Exam - General 1994 Constitutional general appearance Overall: well nourished 08/02/2018 None Full Exam - General 1994 Constitutional general appearance Hygiene/Attention to Grooming: good hygiene 08/02/2018 None Full Exam - General 1994 Eyes conjunctiva/eyelids Overall: conjunctiva clear 08/02/2018 None Full Exam - General 1994 Eyes conjunctiva/eyelids Overall: cornea clear 08/02/2018 None Full Exam - General 1994 Eyes conjunctiva/eyelids Overall: eyelids normal 08/02/2018 None Full Exam - General 1994 Ears/Nose/Throat otoscopic exam Overall: external auditory canals clear 08/02/2018 None Full Exam - General 1994 Ears/Nose/Throat otoscopic exam Overall: tympanic membranes clear 08/02/2018 None Full Exam - General 1994 Ears/Nose/Throat lips/teeth/gingiva Overall: benign lips 08/02/2018 None Full Exam - General 1994 Ears/Nose/Throat oral cavity/pharynx/larynx Overall: oral mucosa clear 08/02/2018 None Full Exam - General 1994 Ears/Nose/Throat oral cavity/pharynx/larynx Overall: oropharyngeal mucosa clear 08/02/2018 None Full Exam - General 1994 Respiratory auscultation Overall: breath sounds clear bilaterally 08/02/2018 None Full Exam - General 1994 Respiratory respiratory effort/rhythm Overall: no retractions 08/02/2018 None Full Exam - General 1994 Respiratory respiratory effort/rhythm Overall: normal rate 08/02/2018 None Full Exam - General 1994 Cardiovascular extremities Overall: no clubbing 08/02/2018 None Full Exam - General 1994 Cardiovascular auscultation of heart Overall: regular rate 08/02/2018 None Full Exam - General 1994 Cardiovascular auscultation of heart Overall: normal heart sounds 08/02/2018 None Full Exam - General 1994 Abdomen abdominal exam Overall: normal bowel sounds 08/02/2018 None Full Exam - General 1994 Lymphatic neck nodes Overall: anterior cervical chain benign 08/02/2018 None Full Exam - General 1994 Lymphatic neck nodes Overall: posterior cervical chain benign 08/02/2018 None Full Exam - General 1994 Musculoskeletal spine, ribs and pelvis Spine: tender @ cervical spine 08/02/2018 None Full Exam - General 1994 Musculoskeletal spine, ribs and pelvis Spine: tender @ thoracic spine 08/02/2018 None Full Exam - General 1994 Musculoskeletal head and neck Overall: head atraumatic 08/02/2018 None Full Exam - General 1994 Neurologic cranial nerves Overall: crainial nerves 2 - 12 grossly intact 08/02/2018 None Full Exam - General 1994 Psychiatric orientation/consciousness Overall: oriented to person, place and time 08/02/2018 None Full Exam - General 1994 Psychiatric mood and affect Overall: normal mood and affect 08/02/2018 None Full Exam - General 1994 Integument inspection of skin Location: face 08/02/2018 irritated skin on right l oateral jawline Full Exam - General 1994 Constitutional general appearance Overall: well developed 05/31/2018 None Full Exam - General 1994 Constitutional general appearance Overall: in no acute distress 05/31/2018 None Full Exam - General 1994 Constitutional general appearance Overall: well nourished 05/31/2018 None Full Exam - General 1994 Constitutional general appearance Hygiene/Attention to Grooming: good hygiene 05/31/2018 None Full Exam - General 1994 Eyes conjunctiva/eyelids Overall: conjunctiva clear 05/31/2018 None Full Exam - General 1994 Eyes conjunctiva/eyelids Overall: cornea clear 05/31/2018 None Full Exam - General 1994 Eyes conjunctiva/eyelids Overall: eyelids normal 05/31/2018 None Full Exam - General 1994 Ears/Nose/Throat otoscopic exam Overall: external auditory canals clear 05/31/2018 None Full Exam - General 1994 Ears/Nose/Throat otoscopic exam Overall: tympanic membranes clear 05/31/2018 None Full Exam - General 1994 Ears/Nose/Throat lips/teeth/gingiva Overall: benign lips 05/31/2018 None Full Exam - General 1994 Ears/Nose/Throat oral cavity/pharynx/larynx Overall: oral mucosa clear 05/31/2018 None Full Exam - General 1994 Ears/Nose/Throat oral cavity/pharynx/larynx Overall: oropharyngeal mucosa clear 05/31/2018 None Full Exam - General 1994 Respiratory auscultation Overall: breath sounds clear bilaterally 05/31/2018 None Full Exam - General 1994 Respiratory respiratory effort/rhythm Overall: no retractions 05/31/2018 None Full Exam - General 1994 Respiratory respiratory effort/rhythm Overall: normal rate 05/31/2018 None Full Exam - General 1994 Cardiovascular extremities Overall: no clubbing 05/31/2018 None Full Exam - General 1994 Cardiovascular auscultation of heart Overall: regular rate 05/31/2018 None Full Exam - General 1994 Cardiovascular auscultation of heart Overall: normal heart sounds 05/31/2018 None Full Exam - General 1994 Abdomen abdominal exam Overall: normal bowel sounds 05/31/2018 None Full Exam - General 1994 Musculoskeletal spine, ribs and pelvis Spine: tender @ cervical spine 05/31/2018 None Full Exam - General 1994 Musculoskeletal spine, ribs and pelvis Spine: tender @ thoracic spine 05/31/2018 None Full Exam - General 1994 Musculoskeletal head and neck Overall: head atraumatic 05/31/2018 None Full Exam - General 1994 Psychiatric orientation/consciousness Overall: oriented to person, place and time 05/31/2018 None Full Exam - General 1994 Psychiatric mood and affect Overall: normal mood and affect 05/31/2018 None Full Exam - General 1994 Constitutional general appearance Overall: well developed 05/20/2018 None Full Exam - General 1994 Constitutional general appearance Overall: in no acute distress 05/20/2018 None Full Exam - General 1994 Constitutional general appearance Overall: well nourished 05/20/2018 None Full Exam - General 1994 Constitutional general appearance Hygiene/Attention to Grooming: good hygiene 05/20/2018 None Full Exam - General 1994 Eyes conjunctiva/eyelids Overall: conjunctiva clear 05/20/2018 None Full Exam - General 1994 Eyes conjunctiva/eyelids Overall: cornea clear 05/20/2018 None Full Exam - General 1994 Eyes conjunctiva/eyelids Overall: eyelids normal 05/20/2018 None Full Exam - General 1994 Ears/Nose/Throat otoscopic exam Overall: external auditory canals clear 05/20/2018 None Full Exam - General 1994 Ears/Nose/Throat otoscopic exam Overall: tympanic membranes clear 05/20/2018 None Full Exam - General 1994 Ears/Nose/Throat lips/teeth/gingiva Overall: benign lips 05/20/2018 None Full Exam - General 1994 Ears/Nose/Throat oral cavity/pharynx/larynx Overall: oral mucosa clear 05/20/2018 None Full Exam - General 1994 Ears/Nose/Throat oral cavity/pharynx/larynx Overall: oropharyngeal mucosa clear 05/20/2018 None Full Exam - General 1994 Respiratory auscultation Overall: breath sounds clear bilaterally 05/20/2018 None Full Exam - General 1994 Respiratory respiratory effort/rhythm Overall: no retractions 05/20/2018 None Full Exam - General 1994 Respiratory respiratory effort/rhythm Overall: normal rate 05/20/2018 None Full Exam - General 1994 Cardiovascular extremities Overall: no clubbing 05/20/2018 None Full Exam - General 1994 Cardiovascular auscultation of heart Overall: regular rate 05/20/2018 None Full Exam - General 1994 Cardiovascular auscultation of heart Overall: normal heart sounds 05/20/2018 None Full Exam - General 1994 Abdomen abdominal exam Overall: normal bowel sounds 05/20/2018 None Full Exam - General 1994 Lymphatic neck nodes Overall: anterior cervical chain benign 05/20/2018 None Full Exam - General 1994 Lymphatic neck nodes Overall: posterior cervical chain benign 05/20/2018 None Full Exam - General 1994 Musculoskeletal spine, ribs and pelvis Spine: tender @ cervical spine 05/20/2018 None Full Exam - General 1994 Musculoskeletal spine, ribs and pelvis Spine: tender @ thoracic spine 05/20/2018 None Full Exam - General 1994 Musculoskeletal head and neck Overall: head atraumatic 05/20/2018 None Full Exam - General 1994 Integument inspection of skin Overall: few scattered moles, no gross abnormalities 05/20/2018 None Full Exam - General 1994 Neurologic cranial nerves Overall: crainial nerves 2 - 12 grossly intact 05/20/2018 None Full Exam - General 1994 Psychiatric orientation/consciousness Overall: oriented to person, place and time 05/20/2018 None Full Exam - General 1994 Psychiatric mood and affect Overall: normal mood and affect 05/20/2018 None Full Exam - General 1994 Constitutional general appearance Hygiene/Attention to Grooming: good hygiene 05/10/2018 None Full Exam - General 1994 Eyes conjunctiva/eyelids Overall: conjunctiva clear 05/10/2018 None Full Exam - General 1994 Eyes conjunctiva/eyelids Overall: cornea clear 05/10/2018 None Full Exam - General 1994 Eyes conjunctiva/eyelids Overall: eyelids normal 05/10/2018 None Full Exam - General 1994 Eyes pupils and irises Pupil: round 05/10/2018 None Full Exam - General 1994 Eyes pupils and irises Pupil: reactive to light 05/10/2018 None Full Exam - General 1994 Eyes pupils and irises Pupil: reactive to accommodation 05/10/2018 None Full Exam - General 1994 Eyes pupils and irises Pupil: nonreactive to accommodation 05/10/2018 None Full Exam - General 1994 Ears/Nose/Throat oral cavity/pharynx/larynx Overall: oral mucosa clear 05/10/2018 None Full Exam - General 1994 Ears/Nose/Throat oral cavity/pharynx/larynx Overall: oropharyngeal mucosa clear 05/10/2018 None Full Exam - General 1994 Respiratory auscultation Overall: breath sounds clear bilaterally 05/10/2018 None Full Exam - General 1994 Respiratory respiratory effort/rhythm Overall: no retractions 05/10/2018 None Full Exam - General 1994 Respiratory respiratory effort/rhythm Overall: normal rate 05/10/2018 None Full Exam - General 1994 Cardiovascular extremities Overall: no clubbing 05/10/2018 None Full Exam - General 1994 Cardiovascular auscultation of heart Overall: regular rate 05/10/2018 None Full Exam - General 1994 Cardiovascular auscultation of heart Overall: normal heart sounds 05/10/2018 None Full Exam - General 1994 Abdomen abdominal exam Overall: normal bowel sounds 05/10/2018 None Full Exam - General 1994 Lymphatic neck nodes Overall: anterior cervical chain benign 05/10/2018 None Full Exam - General 1994 Lymphatic neck nodes Overall: posterior cervical chain benign 05/10/2018 None Full Exam - General 1994 Musculoskeletal head and neck Overall: head atraumatic 05/10/2018 None Full Exam - General 1994 Integument inspection of skin Overall: few scattered moles, no gross abnormalities 05/10/2018 None Full Exam - General 1994 Neurologic cranial nerves Overall: crainial nerves 2 - 12 grossly intact 05/10/2018 None Full Exam - General 1994 Psychiatric orientation/consciousness Overall: oriented to person, place and time 05/10/2018 None Full Exam - General 1994 Psychiatric mood and affect Overall: normal mood and affect 05/10/2018 None Full Exam - General 1994 Constitutional general appearance Overall: well developed 05/10/2018 None Full Exam - General 1994 Constitutional general appearance Overall: in no acute distress 05/10/2018 None Full Exam - General 1994 Constitutional general appearance Overall: well nourished 05/10/2018 None Full Exam - General 1994 Ears/Nose/Throat lips/teeth/gingiva Overall: benign lips 05/10/2018 None Full Exam - General 1994 Ears/Nose/Throat otoscopic exam Overall: tympanic membranes clear 05/10/2018 None Full Exam - General 1994 Ears/Nose/Throat otoscopic exam Overall: external auditory canals clear 05/10/2018 None Full Exam - General 1994 Musculoskeletal spine, ribs and pelvis Spine: tender @ cervical spine 05/10/2018 None Full Exam - General 1994 Musculoskeletal spine, ribs and pelvis Spine: tender @ thoracic spine 05/10/2018 None Full Exam - General 1994 Constitutional general appearance Development: well developed 01/15/2018 None Full Exam - General 1994 Constitutional general appearance Development: appears stated age 0301/15/2018 None Full Exam - General 1994 Constitutional general appearance Hygiene/Attention to Grooming: good hygiene 01/15/2018 None Full Exam - General 1994 Eyes conjunctiva/eyelids Overall: conjunctiva clear 01/15/2018 None Full Exam - General 1994 Eyes conjunctiva/eyelids Overall: cornea clear 01/15/2018 None Full Exam - General 1994 Eyes conjunctiva/eyelids Overall: eyelids normal 01/15/2018 None Full Exam - General 1994 Eyes pupils and irises Pupil: round 01/15/2018 None Full Exam - General 1994 Eyes pupils and irises Pupil: reactive to light 01/15/2018 None Full Exam - General 1994 Eyes pupils and irises Pupil: reactive to accommodation 01/15/2018 None Full Exam - General 1994 Eyes pupils and irises Pupil: nonreactive to accommodation 01/15/2018 None Full Exam - General 1994 Ears/Nose/Throat oral cavity/pharynx/larynx Overall: oral mucosa clear 01/15/2018 None Full Exam - General 1994 Ears/Nose/Throat oral cavity/pharynx/larynx Overall: oropharyngeal mucosa clear 01/15/2018 None Full Exam - General 1994 Ears/Nose/Throat oral cavity/pharynx/larynx Overall: hypopharynx benign 01/15/2018 None Full Exam - General 1994 Ears/Nose/Throat oral cavity/pharynx/larynx Overall: no masses 01/15/2018 None Full Exam - General 1994 Respiratory auscultation Overall: breath sounds clear bilaterally 01/15/2018 None Full Exam - General 1994 Respiratory respiratory effort/rhythm Overall: no retractions 01/15/2018 None Full Exam - General 1994 Respiratory respiratory effort/rhythm Overall: normal rate 01/15/2018 None Full Exam - General 1994 Cardiovascular extremities Overall: no clubbing 01/15/2018 None Full Exam - General 1994 Cardiovascular auscultation of heart Overall: regular rate 01/15/2018 None Full Exam - General 1994 Cardiovascular auscultation of heart Overall: normal heart sounds 01/15/2018 None Full Exam - General 1994 Abdomen abdominal exam Overall: no tenderness 01/15/2018 None Full Exam - General 1994 Abdomen abdominal exam Overall: normal bowel sounds 01/15/2018 None Full Exam - General 1994 Lymphatic neck nodes Overall: anterior cervical chain benign 01/15/2018 None Full Exam - General 1994 Lymphatic neck nodes Overall: posterior cervical chain benign 01/15/2018 None Full Exam - General 1994 Musculoskeletal spine, ribs and pelvis Overall: spine benign 01/15/2018 None Full Exam - General 1994 Musculoskeletal spine, ribs and pelvis Overall: sacroiliac joint benign 01/15/2018 None Full Exam - General 1994 Musculoskeletal spine, ribs and pelvis Overall: good posture 01/15/2018 None Full Exam - General 1994 Musculoskeletal head and neck Overall: head atraumatic 01/15/2018 None Full Exam - General 1994 Musculoskeletal head and neck Overall: cervical spine benign 01/15/2018 None Full Exam - General 1994 Integument inspection of skin Overall: few scattered moles, no gross abnormalities 01/15/2018 None Full Exam - General 1994 Neurologic deep tendon reflexes Overall: deep tendon reflexes intact 01/15/2018 None Full Exam - General 1994 Neurologic cranial nerves Overall: crainial nerves 2 - 12 grossly intact 01/15/2018 None Full Exam - General 1994 Psychiatric orientation/consciousness Overall: oriented to person, place and time 01/15/2018 None Full Exam - General 1994 Psychiatric mood and affect Overall: normal mood and affect 01/15/2018 None Full Exam - General 1994 Constitutional general appearance Development: well developed 12/15/2017 None Full Exam - General 1994 Constitutional general appearance Development: appears stated age 0112/15/2017 None Full Exam - General 1994 Constitutional general appearance Hygiene/Attention to Grooming: good hygiene 12/15/2017 None Full Exam - General 1994 Eyes conjunctiva/eyelids Overall: conjunctiva clear 12/15/2017 None Full Exam - General 1994 Eyes conjunctiva/eyelids Overall: cornea clear 12/15/2017 None Full Exam - General 1994 Eyes conjunctiva/eyelids Overall: eyelids normal 12/15/2017 None Full Exam - General 1994 Ears/Nose/Throat otoscopic exam Overall: external auditory canals clear 12/15/2017 None Full Exam - General 1994 Ears/Nose/Throat otoscopic exam Overall: tympanic membranes clear 12/15/2017 None Full Exam - General 1994 Ears/Nose/Throat lips/teeth/gingiva Overall: benign lips 12/15/2017 None Full Exam - General 1994 Ears/Nose/Throat lips/teeth/gingiva Overall: normal dentition 12/15/2017 None Full Exam - General 1994 Ears/Nose/Throat oral cavity/pharynx/larynx Overall: oral mucosa clear 12/15/2017 None Full Exam - General 1994 Ears/Nose/Throat oral cavity/pharynx/larynx Overall: oropharyngeal mucosa clear 12/15/2017 None Full Exam - General 1994 Ears/Nose/Throat oral cavity/pharynx/larynx Overall: hypopharynx benign 12/15/2017 None Full Exam - General 1994 Ears/Nose/Throat oral cavity/pharynx/larynx Overall: no masses 12/15/2017 None Full Exam - General 1994 Respiratory auscultation Overall: breath sounds clear bilaterally 12/15/2017 None Full Exam - General 1994 Respiratory respiratory effort/rhythm Overall: no retractions 12/15/2017 None Full Exam - General 1994 Respiratory respiratory effort/rhythm Overall: normal rate 12/15/2017 None Full Exam - General 1994 Cardiovascular extremities Overall: no clubbing 12/15/2017 None Full Exam - General 1994 Cardiovascular auscultation of heart Overall: regular rate 12/15/2017 None Full Exam - General 1994 Cardiovascular auscultation of heart Overall: normal heart sounds 12/15/2017 None Full Exam - General 1994 Abdomen abdominal exam Overall: no tenderness 12/15/2017 None Full Exam - General 1994 Abdomen abdominal exam Overall: normal bowel sounds 12/15/2017 None Full Exam - General 1994 Lymphatic neck nodes Overall: anterior cervical chain benign 12/15/2017 None Full Exam - General 1994 Lymphatic neck nodes Overall: posterior cervical chain benign 12/15/2017 None Full Exam - General 1994 Musculoskeletal spine, ribs and pelvis Overall: spine benign 12/15/2017 None Full Exam - General 1994 Musculoskeletal spine, ribs and pelvis Overall: sacroiliac joint benign 12/15/2017 None Full Exam - General 1994 Musculoskeletal spine, ribs and pelvis Overall: good posture 12/15/2017 None Full Exam - General 1994 Musculoskeletal head and neck Overall: head atraumatic 12/15/2017 None Full Exam - General 1994 Musculoskeletal head and neck Overall: cervical spine benign 12/15/2017 None Full Exam - General 1994 Integument inspection of skin Overall: few scattered moles, no gross abnormalities 12/15/2017 None Full Exam - General 1994 Neurologic deep tendon reflexes Overall: deep tendon reflexes intact 12/15/2017 None Full Exam - General 1994 Neurologic cranial nerves Overall: crainial nerves 2 - 12 grossly intact 12/15/2017 None Full Exam - General 1994 Psychiatric orientation/consciousness Overall: oriented to person, place and time 12/15/2017 None Full Exam - General 1994 Psychiatric mood and affect Overall: normal mood and affect 12/15/2017 None Full Exam - General 1994 Eyes pupils and irises Pupil: round 12/15/2017 None Full Exam - General 1994 Eyes pupils and irises Pupil: reactive to light 12/15/2017 None Full Exam - General 1994 Eyes pupils and irises Pupil: reactive to accommodation 12/15/2017 None Full Exam - General 1994 Eyes pupils and irises Pupil: nonreactive to accommodation 12/15/2017 None Full Exam - General 1994 Constitutional general appearance Overall: well nourished 08/03/2015 None Full Exam - General 1994 Constitutional general appearance Overall: well developed 08/03/2015 None Full Exam - General 1994 Constitutional general appearance Overall: in no acute distress 08/03/2015 None Full Exam - General 1994 Psychiatric orientation/consciousness Overall: oriented to person, place and time 08/03/2015 None Full Exam - General 1994 Psychiatric mood and affect Mood: happy 08/03/2015 None Full Exam - General 1994 Psychiatric mood and affect Overall: normal mood and affect 08/03/2015 None Full Exam - General 1994 Integument inspection of skin Location: right hand 08/03/2015 thumb - laceration at the edge of the thumbnail. - skin reapproximated, steri strip placed and tube gauze used to cover the thumb Procedures Procedure Codes Date THER/PROPH/DIAG INJ SC/IM CPT-4: 65658 12/29/2018 THER/PROPH/DIAG INJ SC/IM CPT-4: 32847 12/16/2018 THER/PROPH/DIAG INJ SC/IM CPT-4: 77881 11/15/2018 THER/PROPH/DIAG INJ SC/IM CPT-4: 80536 09/28/2018 THER/PROPH/DIAG INJ SC/IM CPT-4: 10457 09/16/2018 THER/PROPH/DIAG INJ SC/IM CPT-4: 39857 09/02/2018 THER/PROPH/DIAG INJ SC/IM CPT-4: 86449 08/19/2018 IMMUNIZATION ADMIN CPT- 4: 42663 08/02/2018 FLU VAC NO PRSV 4 VA L 3 YRS+ CPT-4: 09004 08/02/2018 THER/PROPH/DIAG INJ SC/IM CPT-4: 00593 07/15/2018 THER/PROPH/DIAG INJ SC/IM CPT-4: 83456 06/17/2018 THER/PROPH/DIAG INJ SC/IM CPT-4: 59774 05/21/2018 THER/PROPH/DIAG INJ SC/IM CPT-4: 91174 08/03/2015 ROCEPHIN, PER 250 MG CPT-4: J0696 08/03/2015 Vital Signs Date Vital 06/07/2019 Blood Pressure 1: 160/88 Code: 8480-6 BMI: 36.0 Code: 51103-3 Heart Rate 1: 70 bpm Height: 5'7" SpO2: 94% Weight: 230 lbs 05/05/2019 Heigh t: Weight: 04/20/2019 Blood Pressure 1: 160/84 Code: 8480-6 BMI: 34.0 Code: 50432-0 Heart Rate 1: 82 bpm Height: 5'7" SpO2: 97% Weight: 216 lbs 13 o z 12/29/2018 Blood Pressure 1: 144/90 Code: 8480-6 BMI: 34.8 Code: 22730-4 Heart Rate 1: 91 bpm Height: 5'7" SpO2: 98% Weight: 222 lbs 12/20/2018 Blood Pressure 1: 124/76 Code: 8480-6 BMI: 35.4 Code: 63379-1 Heart Rate 1: 79 bpm Height: 5'7" SpO2: 99% Weight: 226 lbs 12/16/2018 Blood Pressure 1: 160/90 Code: 8480-6 BMI: 35.4 Code: 82900-7 Heart Rate 1: 90 bpm Height: 5'7" SpO2: 95% Weight: 226 lbs 11/01/2018 Blood Pressure 1: 146/82 Code: 8480-6 BMI: 36.0 Code: 61849-2 Heart Rate 1: 87 bpm Height: 5'7" SpO2: 98% Weight: 230 lbs 09/24/2018 Blood Pressure 1: 140/82 Code: 8480-6 BMI: 36.0 Code: 27377-5 Heart Rate 1: 86 bpm Height: 5'7" SpO2: 98% Temperature: 37.1 (C ) / 98.7 (F) Weight: 230 lbs 08/16/2018 Blood Pressure 1: 148/82 Code: 8480-6 Blood Pressure 2: 157/92 Code: 8480-6 BMI: 35.9 Code: 21724-3 Heart Rate 1: 72 bpm Height: 5'7" SpO2: 96% Weight: 229 lbs 08/02/2018 Blood Pressure 1: 142/86 Code: 8480-6 BMI: 35.2 Code: 72266-4 Heart Rate 1: 101 bpm Height: 5'7" SpO2: 97% Weight: 225 lbs 05/31/2018 Blood Pressure 1: 134/82 Code: 8480-6 BMI: 35.4 Code: 53685-1 Heart Rate 1: 91 bpm Height: 5'7" SpO2: 96% Weight: 226 lbs 05/20/2018 Blood Pressure 1: 160/100 Code: 8480-6 BMI: 35.2 Code: 38788-9 Heart Rate 1: 89 bpm Height: 5'7" SpO2: 98% Weight: 225 lbs 05/10/2018 Blood Pressure 1: 124/70 Code: 8480-6 BMI: 35.1 Code: 61418-4 Heart Rate 1: 93 bpm Height: 5'7" SpO2: 99% Weight: 224 lbs 01/15/2018 Blood Pressure 1: 142/92 Code: 8480-6 BMI: 36.3 Code: 41385-6 Heart Rate 1: 77 bpm Height: 5'7" SpO2: 98% Weight: 232 lbs 12/15/2017 Blood Pressure 1: 156/98 Code: 8480-6 BMI: 36.2 Code: 14832-5 Heart Rate 1: 87 bpm Height: 5'7" SpO2: 97% Weight: 231 lbs Functional Status No Functional Status data History of Present Illness Symptom Name Status Resu lt Effective Date Notes Location lumbar-sacral spine 06/07/2019 None Location thoracic spine 06/07/2019 None Quality constant 06/07/2019 None Frequency of Episodes constant 06/07/2019 None Pertinent Findings ext remity numbness 06/07/2019 both legs Pertinent Findings sle ep disturbance 06/07/2019 None Onset of Symptom _ yea rs ago 06/07/2019 None Location thoracic spine 05/05/2019 None Location lumbar-sacral spine 05/05/2019 None Location Cervical spine 05/05/2019 pinching on right side- ortho said shoul d resolve in 6 months Quality constant 05/05/2019 None Onset and Resolution o ngoing 05/05/2019 None Onset of Symptom year s ago 05/05/2019 None Alleviating Factors me dication 05/05/2019 None Exacerbating Factors a ctivity 05/05/2019 None Pertinent Findings ext remity numbness 05/05/2019 more to left than right. Quality chronic 05/05/2019 None Limitation on Activities moderately limits activities 05/05/2019 None Pertinent Findings Den ies anxiety 05/05/2019 None Quality constant 04/20/2019 None Onset of Symptom year s ago 04/20/2019 None Pertinent Findings ext remity numbness 04/20/2019 more to left than right. Onset of Symptom 2 yea rs ago 04/20/2019 None Quality worsening 04/20/2019 None Frequency of Episodes increasing 04/20/2019 None Quality sensation of a lump in the throat 04/20/2019 None Quality chronic 04/20/2019 None Onset and Resolution o ngoing 04/20/2019 None Location thoracic spine 04/20/2019 None Location lumbar-sacral spine 04/20/2019 None Location Cervical spine 04/20/2019 None Onset and Resolution D enies ongoing 04/20/2019 None Alleviating Factors me dication 04/20/2019 None Exacerbating Factors a ctivity 04/20/2019 None Quality worsening 04/20/2019 None Quality primary hypert ension 04/20/2019 None Onset and Resolution o ngoing 04/20/2019 None Onset of Symptom durin g adulthood 04/20/2019 None Blood Pressure Values patient checking blood pressure at home - did not bring in readings 04/20/2019 None Alleviating Factors me dication 04/20/2019 None Alleviating Factors ne ck collar 04/20/2019 post surgery Location thoracic spine 12/29/2018 None Location lumbar-sacral spine 12/29/2018 None Location Cervical spine 12/29/2018 pinching on right side- ortho said shoul d resolve in 6 months Quality constant 12/29/2018 None Onset and Resolution o ngoing 12/29/2018 None Onset of Symptom year s ago 12/29/2018 None Alleviating Factors me dication 12/29/2018 None Exacerbating Factors a ctivity 12/29/2018 None Pertinent Findings ext remity numbness 12/29/2018 more to left than right. Location right arm 12/20/2018 None Quality constant 12/20/2018 None Quality burning sensat ion 12/20/2018 None Quality sharp pain 12/20/2018 None Onset and Resolution s udden in onset 12/20/2018 None Onset of Symptom 6 lore rs ago 12/20/2018 None Limitation on Activities moderately limits activities 12/20/2018 None Quality primary hypert ension 12/16/2018 None Onset and Resolution o ngoing 12/16/2018 None Onset of Symptom durin g adulthood 12/16/2018 None Blood Pressure Values patient checking blood pressure at home - did not bring in readings 12/16/2018 None Alleviating Factors me dication 12/16/2018 None Location thoracic spine 12/16/2018 None Location lumbar-sacral spine 12/16/2018 None Quality constant 12/16/2018 None Onset and Resolution o ngoing 12/16/2018 None Onset of Symptom year s ago 12/16/2018 None Alleviating Factors me dication 12/16/2018 None Alleviating Factors ne ck collar 12/16/2018 post surgery Exacerbating Factors a ctivity 12/16/2018 None Location Cervical spine 12/16/2018 pinching on right side- ortho said shoul d resolve in 6 months Pertinent Findings ext remity numbness 12/16/2018 more to left than right. Quality primary hypert ension 11/01/2018 None Onset and Resolution o ngoing 11/01/2018 None Onset of Symptom durin g adulthood 11/01/2018 None Alleviating Factors me dication 11/01/2018 None Blood Pressure Values patient checking blood pressure at home - did not bring in readings 11/01/2018 None Location thoracic spine 11/01/2018 None Location lumbar-sacral spine 11/01/2018 None Quality constant 11/01/2018 None Onset and Resolution o ngoing 11/01/2018 None Onset of Symptom year s ago 11/01/2018 None Alleviating Factors me dication 11/01/2018 None Alleviating Factors ne ck collar 11/01/2018 post surgery Exacerbating Factors a ctivity 11/01/2018 None sinus congestion Location frontal sinuses 09/24/2018 None sinus congestion Quality fullness 09/24/2018 None sinus congestion Quality pressure 09/24/2018 None sinus congestion Onset and Resolution sudden in onset 09/24/2018 None sinus congestion Onset of Symptom 5 days ago 09/24/2018 None sinus congestion Frequency of Episodes daily 09/24/2018 None sinus congestion Pertinent Findings cough 09/24/2018 None sinus congestion Pertinent Findings hoarseness 09/24/2018 None cough Quality constant 09/24/2018 None cough Quality hacking 09/24/2018 None cough Onset and Resolution sudden in onset 09/24/2018 None cough Onset of Symptom 5 days ago 09/24/2018 None cough Frequency of Episodes daily 09/24/2018 None sore throat Location dif fusely 09/24/2018 None sore throat Quality achi ng 09/24/2018 None sore throat Quality cons tant 09/24/2018 None sore throat Quality scra tchy 09/24/2018 None sore throat Onset and Resolution sudden in onset 09/24/2018 None sore throat Onset of Symptom 5 days ago 09/24/2018 None earache Location both ea rs 09/24/2018 None earache Onset and Resolution sudden in onset 09/24/2018 None earache Onset of Symptom 5 days ago 09/24/2018 None earache Frequency of Episodes daily 09/24/2018 None headache Location diffus yosvany 09/24/2018 None headache Quality aching 09/24/2018 None headache Onset and Resolution sudden in onset 09/24/2018 None headache Onset of Symptom 5 days ago 09/24/2018 None headache Frequency of Episodes daily 09/24/2018 None back pain Location thora cic spine 08/16/2018 None back pain Location lumba r-sacral spine 08/16/2018 None back pain Quality consta nt 08/16/2018 None back pain Onset and Resolution ongoing 08/16/2018 None back pain Onset of Symptom years ago 08/16/2018 None back pain Alleviating Factors medication 08/16/2018 None back pain Alleviating Factors neck collar 08/16/2018 post surgery back pain Exacerbating Factors activity 08/16/2018 None back pain Location thora cic spine 08/02/2018 None back pain Location lumba r-sacral spine 08/02/2018 None back pain Quality consta nt 08/02/2018 None back pain Onset and Resolution ongoing 08/02/2018 None back pain Onset of Symptom years ago 08/02/2018 None back pain Alleviating Factors neck collar 08/02/2018 post surgery back pain Exacerbating Factors activity 08/02/2018 None back pain Alleviating Factors medication 08/02/2018 None back pain Location thora cic spine 05/31/2018 None back pain Location lumba r-sacral spine 05/31/2018 None back pain Quality consta nt 05/31/2018 None back pain Onset and Resolution ongoing 05/31/2018 None back pain Onset of Symptom years ago 05/31/2018 None back pain Severity severe 05/31/2018 None back pain Pertinent Findings extremity numbness 05/31/2018 None back pain Pertinent Findings extremity weakness 05/31/2018 None back pain Location lumba r-sacral spine 05/20/2018 None back pain Quality consta nt 05/20/2018 None back pain Location thora cic spine 05/20/2018 None back pain Onset and Resolution ongoing 05/20/2018 None back pain Onset of Symptom _ years ago 05/20/2018 None back pain Severity severe 05/20/2018 None back pain Pertinent Findings extremity numbness 05/20/2018 None back pain Pertinent Findings extremity weakness 05/20/2018 None medication follow up Additional Comments medication use 05/10/2018 None medication follow up Location oral intake 05/10/2018 None vision change Location i n the left eye 01/15/2018 None vision change Quality ac [place] 01/15/2018 None vision change Quality lo ss of vision 01/15/2018 None vision change Onset and Resolution sudden in onset 01/15/2018 None vision change Onset of Symptom 3.5 weeks ago 01/15/2018 None vision change Limitation on Activities severely limits vision 01/15/2018 None vision change Triggers n o known associated factors 01/15/2018 None vision change Location i n the left eye 12/15/2017 None vision change Quality lo ss of vision 12/15/2017 None vision change Quality ac [place] 12/15/2017 None vision change Onset and Resolution sudden in onset 12/15/2017 None vision change Onset of Symptom 3.5 weeks ago 12/15/2017 None vision change Limitation on Activities severely limits vision 12/15/2017 None vision change Triggers n o known associated factors 12/15/2017 None Advance Directives No Advance Directive data Encounters Encounter Performer Loca tion Codes Date () 98844 EST. P ATIENT, LEVEL IV Diagnosis: Cervicalgia[ICD10: M54.2] Diagnosis: Pain in thoracic spine[ICD10: M54.6] Diagnosis: Spinal stenosis, thoracic region[ICD10: M48.04] Diagnosis: Spinal stenosis, cervical region[ICD10: M48.02] Diagnosis: Changes in skin texture[ICD10: R23.4] Radha Gonzalez MD, [facility] CPT-4: 67731 06/07/2019 04300 EST. PATIENT, LEVEL IV Diagnosis: Cervicalgia[ICD10: M54.2] Diagnosis: Other fatigue[ICD10: R53.83] Diagnosis: Essential (primary) hypertension[ICD10: I10] Diagnosis: Major depressive disorder, recurrent, moderate[ICD10: F33.1] Sonia Gonzalez MD, [facility] CPT-4: 85230 05/05/2019 ([id number]) 61060 EST. P ATIENT, LEVEL III Diagnosis: Essential (primary) hypertension[ICD10: I10] Diagnosis: Major depressive disorder, recurrent, moderate[ICD10: F33.1] Diagnosis: Dysphagia, pharyngeal phase[ICD10: R13.13] Radha Gonzalez MD, [facility] CPT-4: 93622 04/20/2019 ([id number]) 43273 EST. 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 CPT-4: 71553 12/29/2018 20698 EST. PATIENT, LEVEL III Diagnosis: Pain in right arm[ICD10: M79.601] Sonia Gonzalez MD, [facility] CPT-4: 12240 12/20/2018 ([id number]) 12467 EST. 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 CPT-4: 39081 12/16/2018 ([id number]) 01227 EST. 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 CPT-4: 75948 11/01/2018 32380 EST. PATIENT, LEVEL III Diagnosis: Acute upper respiratory infection, unspecified[ICD10: J06.9] Diagnosis: Other allergic rhinitis[ICD10: J30.89] Sonia Gonzalez MD, [facility] CPT-4: 74537 09/24/2018 ([id number]) 00775 EST. 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 CPT-4: 05056 08/16/2018 ([id number]) 39392 EST. 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 CPT-4: 87273 08/02/2018 ([id number]) 07645 EST. P ATIENT, LEVEL IV Diagnosis: Essential (primary) hypertension[ICD10: I10] Diagnosis: Cervicalgia[ICD10: M54.2] Radha Gonzalez MD, [facility] CPT-4: 34082 05/31/2018 ([id number]) 66168 EST. 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 CPT-4: 62389 05/20/2018 33473 EST. 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 CPT- 4: 26198 05/10/2018 ([id number]) 73338 EST. 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 CPT-4: 69540 12/15/2017 ([id number]) OFFICE/OUTPA TIENT VISIT NEW Diagnosis: Laceration of thumb[ICD9: 883.0] Radha Gonzalez MD, [facility] CPT-4: 75558 08/03/2015 Plan of Care Planned Activity Notes C odes Status Date Visit Plan: Hypertension - well con trolled - continue with current medications, continue with no added salt diet. Pt has been encouraged to exercise daily. The pt has been advised to call the office if there are any acute concerns about change in blood pressure readings at home. Chronic Pain Syndrome - pt has chronic pain - has been maintained on current medications, has not sought out other medications, only uses PRN pain medications as directed, and understands the consequences of over-medication. Refilled hydrocodone. Pt to let us know when the disability goes through so that he can have a biopsy of the skin on his neck to see if he has pseudoxanthoma elasticum. 06/07/2019 Appointment: Radha Gonzalez WPtel: [phone] [phone] (15 min) Moderate 06/07/2019 Patient Education: Patient Medication Summary Completed 06/07/2019 Patient Education: .Cervicalgia Neck Pain Completed 06/07/2019 Visit Plan: Chronic Depression and anxiety - the pt has symptoms of chronic anxiety and depression that have been fairly well controlled since the last office visit. The pt has expected periods of exacerbation with abatement of the symptoms with change in situational exposure. No change in current medications. Hypertension - well controlled - continue with current medications, continue with no added salt diet. Pt has been encouraged to exercise daily. The pt has been advised to call the office if there are any acute concerns about change in blood pressure readings at home. Neck pain, Chronic Pain Syndrome - pt has chronic pain - has been maintained on current medications, has not sought out other medications, only uses PRN pain medications as directed, and understands the consequences of over-medication. 05/05/2019 Appointment: Sonia Potter WPtel: [phone] [phone] (30 min) Complex 05/05/2019 Appointment: Radha Gonzalez WPtel: [phone] (15 min) Moderate 05/05/2019 Patient Education: Patient Medication Summary Completed 05/05/2019 Patient Education: .Cervicalgia Neck Pain Completed 05/05/2019 Patient Education: Depression Completed 05/05/2019 Appointment: Injection 04/21/2019 Visit Plan: Hypertension - well con trolled - continue with current medications, continue with no added salt diet. Pt has been encouraged to exercise daily. The pt has been advised to call the office if there are any acute concerns about change in blood pressure readings at home. Dysphagia due to bone spurs of neck causing impingement intermittently in esophageal tissue. Depression - increase paroxetine to 40mg daily. 04/20/2019 Appointment: Radha Gonzalez WPtel: [phone] [phone] (15 min) Moderate 04/20/2019 Patient Education: Patient Medication Summary Completed 04/20/2019 Patient Education: Depression Completed 04/20/2019 Appointment: Injection 01/13/2019 Visit Plan: Chronic neck and back p ain - pt has chronic pain - has been maintained on current medications, has not sought out other medications, only uses PRN pain medications as directed, and understands the co nsequences of over-medication. Hypogonadism - continue with testosterone injections. 12/29/2018 Appointment: Radha Gonzalez WPtel: [phone] (15 min) Moderate 12/29/2018 Patient Education: Patient Medication Summary Completed 12/29/2018 Patient Education: .Cervicalgia Neck Pain Completed 12/29/2018 Patient Education: Patient Medication Summary Completed 12/21/2018 Care Plan: %Hba1C add to blood from 12/17 LOINC : 86311-0 Pending 12/21/2018 Visit Plan: Right arm pain - dayna deformity noted - will refer to ortho - The pt is to use prn antiinflammatories to manage acute pain. The patient is to call the office if the pain is worsening or does not improve. 12/20/2018 Appointment: Sonia Potter WPtel: [facility] (15 min) Moderate 12/20/2018 Patient Education: Patient Medication Summary Completed 12/20/2018 Visit Plan: Hypertension - well con trolled - continue with current medications, continue with no added salt diet. Pt has been encouraged to exercise daily. The pt has been advised to call the office if there are any acute concerns about change in blood pressure readings at home. LOKESH - symptoms stable - continue with supportive care, monitor symptoms. Fatigue, Back pain - continue with alternating hydrocodone and tramadol. Increase gabapentin from bid to qid. Hypogonadism - continue with testosterone. 12/16/2018 Appointment: Radha Gonzalez WPtel: [phone] (15 min) Moderate 12/16/2018 Patient Education: Patient Medication Summary Completed 12/16/2018 Care Plan: Comp Metabolic Pending 12/16/2018 Care Plan: Cbc With Differential Pending 12/16/2018 Care Plan: Tsh Pending 12/16/2018 Care Plan: Lipid Pending 12/16/2018 Care Plan: Testosterone Pending 12/16/2018 Appointment: Injection 11/15/2018 Patient Education: Patient Medication Summary Completed 11/15/2018 Visit Plan: Hypertension - well con trolled - continue with current medications, continue with no added salt diet. Pt has been encouraged to exercise daily. The pt has been advised to call the office if there are any acute concerns about change in blood pressure readings at home. Cervical spine and Thoracic spine pain - recommended patient keep appts with Dr. Dunaway and continue with injections should this be recommended - refill pain medication as needed. 11/01/2018 Appointment: Radha Gonzalez WPtel: [phone] [phone] (15 min) Moderate 11/01/2018 Patient Education: Patient Medication Summary Completed 11/01/2018 Patient Education: .Cervicalgia Neck Pain Completed 11/01/2018 Patient Education: Patient Medication Summary Completed 09/28/2018 Visit Plan: URI - Pt advised to inc rease fluids, vitamin C. Discussed natural and expected course of this diagnosis and need to alert me if symptoms do not follow expected course, or if any worse. RX sent to patient's pharmacy. Allergies - chronic - recommended pt to use allergy medication as prescribed. Pt has been counseled as to the appropriate use of the medication. Pt to call if allergy symptoms are not controlled with the medication. If using nasal spray, instructions as follows: Nasal spray- use twice daily, one spray per nostril twice daily, after 30 minutes, rinse out nose with saline spray.. Use opposite hand per nostril to spray in the nasal steroid allergy spray. 09/24/2018 Appointment: Sonia Potter [facility]: [phone] (15 min) Moderate 09/24/2018 Patient Education: Patient Medication Summary Completed 09/24/2018 Appointment: Injection 09/16/2018 Patient Education: Patient Medication Summary Completed 09/16/2018 Appointment: Injection 09/02/2018 Patient Education: Patient Medication Summary Completed 09/02/2018 Appointment: Injection 08/19/2018 Patient Education: Patient Medication Summary Completed 08/19/2018 Visit Plan: Hypertension - not opti elpidio controlled today- no medication changes to be made today - continue with current medications, continue with no added salt diet. Pt has been encouraged to exercise daily. The pt has been advised to call the office if there are any acute concerns about change in blood pressure readings at home. Multiple symptoms - referral to [facility] - appt in September 30, 2018. 08/16/2018 App[facility]ment: [phone] (15 min) Moderate 08/16/2018 Patient Education: Patient Medication Summary Completed 08/16/2018 Care Plan: Testosterone Pending 08/16/2018 Care Plan: Hgb & Hct Pending 08/16/2018 Visit Plan: Hypertension - well con trolled - continue with current medications, continue with no added salt diet. Pt has been encouraged to exercise daily. The pt has been advised to call the office if there are any acute concerns about change in blood pressure readings at home. Multiple symptoms - referral to [facility] - rashes, hypogonadism, optic neuritis - all points to possible autoimmune syndrome. Spinal stenosis - of thoracic region - pt to talk to Dr. Dunaway about referral to a different specialist for his mid- back. Hypogonadism - continue with testosterone. Flu shot given today in clinic. 08/02/2018 Appointment: Rad[facility] Gonzalez [facility]el[phone] [facility] [place] (15 min) Moderate 08/02/2018 Patient Education: Patient Medication Summary Completed 08/02/2018 Care Plan: Referral Order SNOMED-CT : 968489748 Pending 08/02/2018 Appointment: Injection 07/15/2018 Patient Education: Patient Medication Summary Completed 07/15/2018 Referral: Armani Dunaway Referral Completed 06/23/2018 Appointment: Injection 06/17/2018 Patient Education: Patient Medication Summary Completed 06/17/2018 Visit Plan: Hypertension - well con trolled - continue with current medications, continue with no added salt diet. Pt has been encouraged to exercise daily. The pt has been advised to call the office if there are any acute concerns about change in blood pressure readings at home. Cervical spine stenosis - [facility] I have also recommended a Referral to Dr. Dunaway. I have called and talked to Dr. Dunaway - he looked at the pt's imaging and agrees that getting the pt in to be seen soon would be a preferred option. 05/31/2018 Appointment: Radha Gonzalez WPtel: [facility] [place] (15 min) Moderate 05/31/2018 Patient Education: Patient Medication Summary Completed 05/31/2018 Care Plan: Referral Order SNOMED-CT : [id number] Pending 05/31/2018 Care Plan: Referral Order SNOMED-CT : [id number] Pending 05/31/2018 Appointment: Injection 05/21/2018 Patient Education: Patient Medication Summary Completed 05/21/2018 Care Plan: Referral Order SNOMED-CT : [id number] Pending 05/21/2018 Visit Plan: Cervical and thoracic s tenosis with spinal cord compression -refer for appt with Dr Marr -rx for hydrocodone for pain-start gabapentin at bedtime Soft tissue lesion-left chest-schedule CTfor further evaluation HTN-elevated today-hold adderall-monitor blood pressure 05/20/2018 Appointment: Hannah Simons [facility]Ptel: [phone] [place] (15 min) Moderate 05/20/2018 Patient Education: Patient Medication Summary Completed 05/20/2018 Visit Plan: Hypertension - well con trolled - continue with current medications, continue with no added salt diet. Pt has been encouraged to exercise daily. The pt has been advised to call the office if there are any acute concerns about change in blood pressure readings at home. Fatigue, low libido, possible autoimmune disease - will check labs and treat or refer as indicated Back pain, neck pain - will order MRI - will send voltaren and give zorvolex samples. Family history of heart disease - will try to order stress test, discussed with pt that he may need to see cardiology before we are able to order this. 05/10/2018 Appointment: Sonia Potter [facility]Ptel: [phone] [place] [place] (15 min) Moderate 05/10/2018 Patient Education: Patient Medication Summary Completed 05/10/2018 Visit Plan: Sleep apnea - rx for cp ap - actually autopap was recommended and pt given rx today. HTN - referral to dr. kapoor - pt needs stress testing. 01/15/2018 Appointment: Radha Gonzalez [facility]el[phone] [place] (15 min) Moderate 01/15/2018 Patient Education: Patient Medication Summary Completed 01/15/2018 Care Plan: Referral Order SNOMED-CT : [id number] Pending 01/15/2018 Visit Plan: Well Adult - pt was cou nseled about diet, exercise, and encouraged to follow a heart healthy diet and increase activity level. The patient was instructed to RTC yearly for well adult exams and PRN for acute illnesses. The pt was also instructed to have yearly labs for check of cholesterol, thyroid, chem panel, CBC, and renal functioning. Visual changes - Ischemic Optic Neuritis - Pt has not had a Carotid Ultrasound -we will get him scheduled on a thursday or for carotid ultrasound. Hypertension - uncontrolled - the patient's medications have been modified as documented in the visit note. The patient has been counseled to cut back on salt in diet for a no added salt diet, low fat diet, start an exercise program with low weight bearing exercises and higher aerobic activity for heart health. The patient is to check blood pressure readings as an outpatient and either fax, call, or email the readings to the office next week for practitioner to review. The pt is to call for acute concerns. Atenolol increased to a third dose during the day - call with blood pressure reports RTC in one month. 12/15/2017 Appointment: Rad[facility] Gonzalez [facility]el[phone] [facility] [place] New Patient 12/15/2017 Patient Education: Patient Medication Summary Completed 12/15/2017 Care Plan: CHEST X-RAY 2VW FRONTAL&LATL LOINC : 28385-8 Pending 12/15/2017 Appointment: Radha Gonzalez [facility]Ptel[phone] [facility] [place] (15 min) Moderate 12/08/2017 Appointment: (S) New Patient 08/13/2015 Visit Plan: steri strip placed on t humb of right hand - antibiotic shot given to patient and rx for keflex 500mg qid x 10 days given to the patient to fill prior to his trip to [place] 08/03/2015 Patient Education: Patient Medication Summary Completed 08/03/2015 Referral: External, Ordering Provider 08/03 Referral info faxed to [place]. Patient informed to be expecting a call from them with appt info Appointment Requested Referral: External, Ordering Provider Referral Appointment Requested Referral: External, Ordering Provider I called today; they will call him to schedule. Completed Referral: Armani Dunaway Referral Appointment Requested Referral: Mayte Kapoor Referral Appointment Requested Referral: April physical [facility] [address] [facility] [id number] Referral Appointment Requested Referral: External, Ordering Provider Referral Appointment Requested Instructions Comment . Sleep apnea - rx f or cpap - actually autopap was recommended and pt given rx today. HTN - referral to dr. kapoor - pt needs stress testing. . Hypertension - wel l controlled - continue with current medications, continue with no added salt diet. Pt has been encouraged to exercise daily. The pt has been advised to call the office if there are any acute concerns about change in blood pressure readings at home. Chronic Pain Syndrome - pt has chronic pain - has been maintained on current medications, has not sought out other medications, only uses PRN pain medications as directed, and understands the consequences of over-medication. Refilled hydrocodone. Pt to let us know when the disability goes through so that he can have a biopsy of the skin on his neck to see if he has pseudoxanthoma elasticum. will refill meds for 90 days Will order MRI of thoracic and cervical spine will try samples of zorvolex - do not take ibuprofen or aleve while on the zorvolex will check labs (CBC, CMP, Lipid panel, Vitamin D, ESR, CRP, and YOEL) and refer to rheumatology Will try to set up stress test. Hypertension - well controlled - continue with current medications, continue with no added salt diet. Pt has been encouraged to exercise daily. The pt has been advised to call the office if there are any acute concerns about change in blood pressure readings at home. Fatigue, low libido, possible autoimmune disease - will check labs and treat or refer as indicated Back pain, neck pain - will order MRI - will send voltaren and give zorvolex samples. Family history of heart disease - will try to order stress test, discussed with pt that he may need to see cardiology before we are able to order this. Prazosin - for night mcrae . Chronic Depression and anxiety - the p t has symptoms of chronic anxiety and depression that have been fairly well controlled since the last office visit. The pt has expected periods of exacerbation with abatement of the symptoms with change in situational exposure. No change in current medications. Hypertension - well controlled - continue with current medications, continue with no added salt diet. Pt has been encouraged to exercise daily. The pt has been advised to call the office if there are any acute concerns about change in blood pressure readings at home. Neck pain, Chronic Pain Syndrome - pt has chronic pain - has been maintained on current medications, has not sought out other medications, only uses PRN pain medications as directed, and understands the consequences of over-medication. . Chronic neck and b ack pain - pt has chronic pain - has been maintained on current medications, has not sought out other medications, only uses PRN pain medications as directed, and understands the consequences of over-medication. Hypogonadism - continue with testosterone injections. . Hypertension - not optimally controlled today- no medication changes to be made today - continue with current medications, continue with no added salt diet. Pt has been encouraged to exercise daily. The pt has been advised to call the office if there are any acute concerns about change in blood pressure readings at home. Multiple symptoms - referral to [facility] - appt in September 30, 2018. . Hypertension - wel l controlled - continue with current medications, continue with no added salt diet. Pt has been encouraged to exercise daily. The pt has been advised to call the office if there are any acute concerns about change in blood pressure readings at home. Dysphagia due to bone spurs of neck causing impingement intermittently in esophageal tissue. Depression - increase paroxetine to 40mg daily. . Hypertension - wel l controlled - continue with current medications, continue with no added salt diet. Pt has been encouraged to exercise daily. The pt has been advised to call the office if there are any acute concerns about change in blood pressure readings at home. Multiple symptoms - referral to [facility] - rashes, hypogonadism, optic neuritis - all points to possible autoimmune syndrome. Spinal stenosis - of thoracic region - pt to talk to Dr. Dunaway about referral to a different specialist for his mid-back. Hypogonadism - continue with testosterone. Flu shot given today in clinic. . Hypertension - wel l controlled - continue with current medications, continue with no added salt diet. Pt has been encouraged to exercise daily. The pt has been advised to call the office if there are any acute concerns about change in blood pressure readings at home. Cervical spine and Thoracic spine pain - recommended patient keep appts with Dr. Dunaway and continue with injections should this be recommended - refill pain medication as needed. . URI - Pt advised t o increase fluids, vitamin C. Discussed natural and expected course of this diagnosis and need to alert me if symptoms do not follow expected course, or if any worse. RX sent to patient's pharmacy. Allergies - chronic - recommended pt to use allergy medication as prescribed. Pt has been counseled as to the appropriate use of the medication. Pt to call if allergy symptoms are not controlled with the medication. If using nasal spray, instructions as follows: Nasal spray- use twice daily, one spray per nostril twice daily, after 30 minutes, rinse out nose with saline spray.. Use opposite hand per nostril to spray in the nasal steroid allergy spray. CT chest with IV con trast -next week -Thursday or after Appt with Dr Marr hydrocodone for prn use instead of the tramadol hold adderall until blood pressure improved . Cervical and thoracic stenosis with sp inal cord compression -refer for appt with Dr Marr -rx for hydrocodone for pain-start gabapentin at bedtime Soft tissue lesion-left chest-schedule CTfor further evaluation HTN-elevated today-hold adderall-monitor blood pressure . Hypertension - wel l controlled - continue with current medications, continue with no added salt diet. Pt has been encouraged to exercise daily. The pt has been advised to call the office if there are any acute concerns about change in blood pressure readings at home. LOKESH - symptoms stable - continue with supportive care, monitor symptoms. Fatigue, Back pain - continue with alternating hydrocodone and tramadol. Increase gabapentin from bid to qid. Hypogonadism - continue with testosterone. . Right arm pain - p opeye deformity noted - will refer to ortho - The pt is to use prn antiinflammatories to manage acute pain. The patient is to call the office if the pain is worsening or does not improve. . Well Adult - pt wa s counseled about diet, exercise, and encouraged to follow a heart healthy diet and increase activity level. The patient was instructed to RTC yearly for well adult exams and PRN for acute illnesses. The pt was also instructed to have yearly labs for check of cholesterol, thyroid, chem panel, CBC, and renal functioning. Visual changes - Ischemic Optic Neuritis - Pt has not had a Carotid Ultrasound - we will get him scheduled on a thursday or for carotid ultrasound. Hypertension - uncontrolled - the patient's medications have been modified as documented in the visit note. The patient has been counseled to cut back on salt in diet for a no added salt diet, low fat diet, start an exercise program with low weight bearing exercises and higher aerobic activity for heart health. The patient is to check blood pressure readings as an outpatient and either fax, call, or email the readings to the office next week for practitioner to review. The pt is to call for acute concerns. Atenolol increased to a third dose during the day - call with blood pressure reports RTC in one month. . Hypertension - wel l controlled - continue with current medications, continue with no added salt diet. Pt has been encouraged to exercise daily. The pt has been advised to call the office if there are any acute concerns about change in blood pressure readings at home. Cervical spine stenosis - [facility]. I have also recommended a Referral to Dr. Dunaway. I have called and talked to Dr. Dunaway - he looked at the pt's imaging and agrees that getting the pt in to be seen soon would be a preferred option. . steri strip placed on thumb of right hand - antibiotic shot given to patient and rx for keflex 500mg qid x 10 days given to the patient to fill prior to his trip to [place]
--- OUTSIDE RECORDS SUMMARY | 2020-04-28 00:10 | XMS REPORT | CCD ---
Author Author Nilton Gonzalez Organization [facility] Address [address] [place] [address] Phone Care Team Providers Care Military Analyst Name Role Phone PP Unavailable CCM Unavailable Summary Purpose Interface Exchange Family history Brother Diagnosis Age At Onset Alcoholism Unknown Father Diagnosis Age At Onset Hypercholesterolemia Unknown Social History Social History Element Codes Description Effective Dates Employment Unknown Curre ntly unemployed 04/20/2019 Marital status Unknown S chanda 12/15/2017 Number of children Unknown 1 12/15/[address]: 268390394 Never smoker 12/15/[address]: 874867 Currently drinks alcohol <1 per week 12/15/2017 [...] Date Stop Date Sta tus Fill Instructions Adderall 30 mg tablet RxNorm: 705629 2 Tablet(s) PO daily 07/13/2019 08/11/2019 Active hydrocodone 10 mg-ac etaminophen 325 mg tablet RxNorm: 324006 1 Tablet(s) PO TID 07/06/2019 No Stop Date Active alprazolam 1 mg tablet RxNorm: 296376 1 Tablet(s) PO TID as needed 07/05/2019 09/02/2019 Active prazosin 1 mg capsule RxNorm: 499601 2 Capsule(s) PO QPM 06/29/2019 10/26/2019 Active diclofenac sodium 75 mg tablet,delayed release RxNorm: 181268 1 Tablet(s) PO BID 06/27/2019 07/26/2019 Ac tive acyclovir 400 mg tablet RxNorm: 090460 TAKE ONE TABLET BY MOUTH THREE TIMES A D AY NEEDED. TAKE AT ONSET OF SYMPTOMS OF COLD SORES FOR 5 DAYS. 06/27/2019 07/26/2019 Active diclofenac sodium 75 mg tablet,delayed release RxNorm: 007916 1 Tablet(s) PO BID 06/27/2019 06/26/2019 In active testosterone cypiona te 200 mg/mL intramuscular oil RxNorm: 9117609 1.25 Milliliter(s) IM 2 x month 06/24/2019 10/13/2019 Active Adderall 30 mg tablet RxNorm: 503399 2 Tablet(s) PO daily 06/16/2019 07/12/2019 Inactive hydrocodone 10 mg-ac etaminophen 325 mg tablet RxNorm: 565550 1 Tablet(s) PO TID 06/07/2019 07/05/2019 In active prazosin 1 mg capsule RxNorm: 262054 2 Capsule(s) PO QPM 06/07/2019 06/28/2019 Inactive prazosin 1 mg capsule RxNorm: 186650 TAKE ONE CAPSULE BY MOUTH EVERY NIGHT AT BEDTIME 06/02/2019 06/06/2019 Inactive trazodone 100 mg tablet RxNorm: 410115 TAKE ONE TABLET BY MOUTH EVERY NIGHT AT BEDTIME 05/25/2019 11/20/2019 Active hydrocodone 10 mg-ac etaminophen 325 mg tablet RxNorm: 673452 1 Tablet(s) PO Q6 as needed 05/17/2019 06/06/2019 Inactive paroxetine 40 mg tablet RxNorm: 4905858 TAKE ONE TABLET BY MOUTH DAILY 05/16/2019 11/11/2019 Ac tive hydrocodone 5 mg-fanny taminophen 325 mg tablet RxNorm: 809752 1-2 Tablet(s) PO Q6 a s needed 05/16/2019 05/16/2019 Inactive prazosin 1 mg capsule RxNorm: 497661 1 Capsule(s) PO daily 05/05/2019 06/01/2019 Inactive paroxetine 40 mg tablet RxNorm: 7843776 1 Tablet(s) PO daily 04/20/2019 05/15/2019 Inactive Adderall 30 mg tablet RxNorm: 100976 2 Tablet(s) PO daily 04/19/2019 05/18/2019 Inactive alprazolam 1 mg tablet RxNorm: 207823 1 Tablet(s) PO TID as needed 04/13/2019 06/10/2019 Inactive hydrocodone 5 mg-fanny taminophen 325 mg tablet RxNorm: 939588 1-2 Tablet(s) PO Q6 a s needed 03/21/2019 05/15/2019 Inactive Adderall 30 mg tablet RxNorm: 360488 2 Tablet(s) PO daily 03/21/2019 04/14/2019 Inactive tramadol 50 mg tablet RxNorm: 850243 1-2 Tablet(s) PO Q6 as needed 03/14/2019 No Stop Date Active hydrocodone 5 mg-fanny taminophen 325 mg tablet RxNorm: 314014 1-2 Tablet(s) PO Q6 a s needed 02/23/2019 03/20/2019 Inactive Adderall 30 mg tablet RxNorm: 709914 2 Tablet(s) PO daily 02/23/2019 03/20/2019 Inactive Adderall 30 mg tablet RxNorm: 387798 2 Tablet(s) PO daily 01/24/2019 02/22/2019 Inactive ketoconazole 2 % top ical cream RxNorm: 058838 APPLY ONE GRAM TOPICA LLY TWICE A DAY 01/12/2019 01/26/2019 In active tramadol 50 mg tablet RxNorm: 975757 1-2 Tablet(s) PO Q6 as needed 01/11/2019 03/13/2019 In active atenolol 50 mg tablet RxNorm: 422328 1.5 Tablet(s) PO BID 12/29/2018 12/23/2019 Active hydrocodone 5 mg-fanny taminophen 325 mg tablet RxNorm: 568140 1-2 Tablet(s) PO Q6 a s needed 12/29/2018 02/22/2019 Inactive Adderall 30 mg tablet RxNorm: 834316 2 Tablet(s) PO daily 12/29/2018 01/23/2019 Inactive hydrocodone 5 mg-fanny taminophen 325 mg tablet RxNorm: 351569 1-2 Tablet(s) PO Q6 a s needed 12/29/2018 12/28/2018 Inactive testosterone cypiona te 200 mg/mL intramuscular oil RxNorm: 2753322 1.25 Milliliter(s) IM 12/29/2018 12/28/2018 Inactive hydrocodone 5 mg-fanny taminophen 325 mg tablet RxNorm: 345480 1 Tablet(s) PO TID IN N 12/28/2018 12/28/2018 In active testosterone cypiona te 200 mg/mL intramuscular oil RxNorm: 3569487 1.25 Milliliter(s) IM 2 x month 12/22/2018 04/12/2019 Inactive gabapentin 300 mg ca psule RxNorm: 717365 1 Capsule(s) PO QID 12/16/2018 12/10/2019 Active testosterone cypiona te 200 mg/mL intramuscular oil RxNorm: 3462865 Milliliter(s) IM 12/16/2018 12/16/2018 In active Voltaren 1 % topical gel RxNorm: 647232 2 Gram(s) APPLY TOPIC ALLY four TIMES A DAY 12/16/2018 01/20/2019 In active trazodone 100 mg tablet RxNorm: 260181 TAKE ONE TABLET BY MOUTH EVERY NIGHT AT BEDTIME 12/07/2018 05/24/2019 Inactive hydrocodone 5 mg-fanny taminophen 325 mg tablet RxNorm: 525461 1 Tablet(s) PO TID IN N 11/29/2018 12/27/2018 In active Adderall 30 mg tablet RxNorm: 110426 2 Tablet(s) PO daily 11/29/2018 12/28/2018 Inactive clindamycin 1 %-arthur oyl peroxide 5 % topical gel RxNorm: 224878 TOP APPLY TO AFFECTED AREA(S) ON SERNA TWO TIMES A DAY 11/17/2018 No Stop Date Active testosterone cypiona te 200 mg/mL intramuscular oil RxNorm: 2876897 1 Milliliter(s) IM 2 x month 11/17/2018 12/21/2018 Inactive Zorvolex 35 mg capsule RxNorm: 2244601 1 Capsule(s) PO TID as needed for pain 11/15/2018 05/13/2019 In active ketoconazole 2 % top ical cream RxNorm: 091338 APPLY ONE GRAM TOPICA LLY TWICE A DAY 11/15/2018 11/29/2018 In active testosterone cypiona te 200 mg/mL intramuscular oil RxNorm: 0096905 1 Milliliter(s) IM 11/15/2018 11/14/2018 Inactive hydrocodone 5 mg-fanny taminophen 325 mg tablet RxNorm: 536379 1 Tablet(s) PO TID IN N 11/02/2018 11/28/2018 In active Singulair 10 mg tablet RxNorm: 271240 1 Tablet(s) PO daily 11/01/2018 07/28/2019 Active testosterone cypiona te 200 mg/mL intramuscular oil RxNorm: 9347395 1 Milliliter(s) IM 2 x month 11/01/2018 11/16/2018 Inactive Adderall 30 mg tablet RxNorm: 031663 2 Tablet(s) PO daily 10/29/2018 11/27/2018 Inactive gabapentin 300 mg ca psule RxNorm: 661034 1 Capsule(s) PO BID m ay take TID 10/19/2018 12/15/2018 In active gabapentin 300 mg ca psule RxNorm: 900409 1 Capsule(s) PO BID m ay take TID 10/19/2018 10/18/2018 In active alprazolam 1 mg tablet RxNorm: 551856 1 Tablet(s) PO TID as needed 10/15/2018 04/19/2019 Inactive testosterone cypiona te 200 mg/mL intramuscular oil RxNorm: 872650 Milliliter(s) IM 09/28/2018 09/28/2018 In active pravastatin 40 mg ta blet RxNorm: 012459 TAKE ONE TABLET BY MO UTH EVERY NIGHT AT BEDTIME 09/27/2018 09/21/2019 Active Tamiflu 75 mg capsule RxNorm: 851349 1 Capsule(s) PO BID 09/24/2018 09/28/2018 Inactive Adderall 30 mg tablet RxNorm: 406811 2 Tablet(s) PO daily 09/20/2018 10/19/2018 Inactive hydrocodone 5 mg-fanny taminophen 325 mg tablet RxNorm: 752932 1 Tablet(s) PO TID IN N 09/20/2018 11/01/2018 In active testosterone cypiona te 200 mg/mL intramuscular oil RxNorm: 589955 Milliliter(s) IM 09/16/2018 09/16/2018 In active testosterone cypiona te 200 mg/mL intramuscular oil RxNorm: 654920 1 Milliliter(s) IM 09/02/2018 09/02/2018 Inactive testosterone cypiona te 200 mg/mL intramuscular oil RxNorm: 004517 Milliliter(s) IM 08/19/2018 08/19/2018 In active Adderall 30 mg tablet RxNorm: 282872 2 Tablet(s) PO daily 08/18/2018 09/16/2018 Inactive tramadol 50 mg tablet RxNorm: 708098 1-2 Tablet(s) PO Q6 as needed 08/18/2018 01/12/2019 In active Dexilant 60 mg capsu le, delayed release RxNorm: 580383 1 Capsule(s) PO BID 08/17/2018 08/11/2019 Ac tive ketoconazole 2 % top ical cream RxNorm: 695560 1 Gram(s) TOP BID 08/17/2018 08/26/2018 Inactive Zorvolex 35 mg capsule RxNorm: 7524601 1 Capsule(s) PO TID as needed for pain 08/17/2018 08/16/2018 In active atenolol 50 mg tablet RxNorm: 407298 1 Tablet(s) PO BID 08/17/2018 12/28/2018 Inactive Zorvolex 35 mg capsule RxNorm: 8128632 1 Capsule(s) PO TID as needed for pain 08/17/2018 11/14/2018 In active ketoconazole 2 % top ical cream RxNorm: 976659 1 Gram(s) TOP BID 08/02/2018 08/11/2018 Inactive hydrocortisone 2.5 % topical cream RxNorm: 927299 1 Application TOP BID 07/21/2018 No Stop Date Active Adderall 30 mg tablet RxNorm: 903569 2 Tablet(s) PO daily 07/20/2018 08/17/2018 Inactive testosterone cypiona te 200 mg/mL intramuscular oil RxNorm: 392412 Milliliter(s) IM 07/15/2018 07/15/2018 In active alprazolam 1 mg tablet RxNorm: 462885 1 Tablet(s) PO TID as needed 07/12/2018 09/07/2018 Inactive hydrocodone 5 mg-fanny taminophen 325 mg tablet RxNorm: 777427 1 Tablet(s) PO TID IN N 06/30/2018 09/19/2018 In active pravastatin 40 mg ta blet RxNorm: 001741 1 Tablet(s) PO QHS 06/18/2018 09/15/2018 Inactive Adderall 30 mg tablet RxNorm: 745184 2 Tablet(s) PO daily 06/18/2018 07/17/2018 Inactive testosterone cypiona te 200 mg/mL intramuscular oil RxNorm: 866378 Milliliter(s) IM 06/17/2018 06/17/2018 In active Voltaren 1 % topical gel RxNorm: 937194 APPLY TOPICALLY TWO T IMES A DAY 06/16/2018 07/21/2018 In active Vitamin D2 50,000 un it capsule RxNorm: 0396502 1 Capsule(s) PO QW 05/21/2018 No Stop Date Active Adderall 30 mg tablet RxNorm: 466172 2 Tablet(s) PO daily 05/21/2018 06/17/2018 Inactive testosterone cypiona te 200 mg/mL intramuscular oil RxNorm: 482166 Milliliter(s) IM 05/21/2018 05/21/2018 In active testosterone cypiona te 200 mg/mL intramuscular oil RxNorm: 9887781 1 Milliliter(s) IM monthly 05/20/2018 09/16/2018 Inactive testosterone cypiona te 200 mg/mL intramuscular oil RxNorm: 272212 1 Milliliter(s) IM monthly 05/20/2018 05/19/2018 Inactive hydrocodone 5 mg-fanny taminophen 325 mg tablet RxNorm: 733183 1 Tablet(s) PO TID IN N 05/20/2018 06/29/2018 In active Vitamin D2 50,000 un it capsule RxNorm: 8733638 1 Capsule(s) PO QW 05/18/2018 05/20/2018 Inactive triamcinolone aceton destin 0.025 % topical cream RxNorm: 2110035 1 Application TOP BI D 05/13/2018 No Stop Date Active Dexilant 60 mg capsu le, delayed release RxNorm: 870300 1 Capsule(s) PO BID 05/13/2018 08/16/2018 In active Zorvolex 35 mg capsule RxNorm: 2845461 1 Capsule(s) PO TID as needed for pain 05/12/2018 08/09/2018 In active Voltaren 1 % topical gel RxNorm: 048058 1 Application TOP BID 05/12/2018 06/15/2018 Inactive ProAir HFA 90 mcg/ac tuation aerosol inhaler RxNorm: 918606 1 Puff(s) INH QID as needed 05/10/2018 No Stop Date Active baclofen 20 mg tablet RxNorm: 356449 1 Tablet(s) PO TID as needed muscle spas ms 05/10/2018 06/08/2018 In active Singulair 10 mg tablet RxNorm: 909562 1 Tablet(s) PO daily 05/10/2018 08/07/2018 Inactive acyclovir 400 mg tablet RxNorm: 312646 1 Tablet(s) PO TID as needed take at ons et of symptoms of cold sores x 5 days 05/10/2018 06/26/2019 Inactive atenolol 50 mg tablet RxNorm: 529261 1 Tablet(s) PO BID 05/10/2018 08/07/2018 Inactive triamcinolone aceton destin 0.025 % topical cream RxNorm: 6300696 1 Application TOP BI D 05/10/2018 05/12/2018 In active paroxetine 20 mg tablet RxNorm: 4941738 2 Tablet(s) PO QHS 05/10/2018 04/19/2019 Inactive tramadol 50 mg tablet RxNorm: 603652 1 Tablet(s) PO TID as needed 05/10/2018 05/19/2018 Inactive Dexilant 60 mg capsu le, delayed release RxNorm: 193574 1 Capsule(s) PO daily 05/10/2018 05/12/2018 In active alprazolam 1 mg tablet RxNorm: 074618 1 Tablet(s) PO TID as needed 05/10/2018 08/06/2018 Inactive trazodone 100 mg tablet RxNorm: 388321 1 Tablet(s) PO QHS 05/10/2018 11/05/2018 Inactive cyclobenzaprine 10 m g tablet RxNorm: 259784 1 Tablet(s) PO TID as needed muscle spasms 05/07/2018 07/12/2018 Inactive trazodone 100 mg tablet RxNorm: 764583 1 Tablet(s) PO QHS 05/07/2018 05/09/2018 Inactive Adderall 30 mg tablet RxNorm: 013911 2 Tablet(s) PO daily 04/19/2018 05/18/2018 Inactive alprazolam 1 mg tablet RxNorm: 816461 1 Tablet(s) PO BID 04/19/2018 05/09/2018 Inactive Adderall 30 mg tablet RxNorm: 758841 2 Tablet(s) PO daily 03/26/2018 04/18/2018 Inactive paroxetine 20 mg tablet RxNorm: 7467373 2 Tablet(s) PO QHS 03/15/2018 05/09/2018 Inactive Adderall 30 mg tablet RxNorm: 543331 2 Tablet(s) PO daily 02/25/2018 03/25/2018 Inactive cyclobenzaprine 10 m g tablet RxNorm: 064976 1 Tablet(s) PO TID as needed muscle spasms 02/22/2018 05/06/2018 Inactive tramadol 50 mg tablet RxNorm: 233273 1 Tablet(s) PO TID as needed 02/22/2018 03/07/2018 Inactive tramadol 50 mg tablet RxNorm: 015631 1 Tablet(s) PO TID as needed 02/22/2018 02/21/2018 Inactive trazodone 100 mg tablet RxNorm: 817564 1 Tablet(s) PO QHS 02/03/2018 05/03/2018 Inactive trazodone 100 mg tablet RxNorm: 946566 1 Tablet(s) PO QHS 02/03/2018 02/02/2018 Inactive Adderall 30 mg tablet RxNorm: 434875 2 Tablet(s) PO daily 01/27/2018 02/18/2018 Inactive acyclovir 400 mg tablet RxNorm: 664529 1 Tablet(s) PO TID as needed take at ons et of symptoms of cold sores x 5 days 01/15/2018 05/09/2018 Inactive Bactrim DS 800 mg-16 0 mg tablet RxNorm: 511744 1 Tablet(s) PO BID 01/11/2018 01/17/2018 Inactive Bactrim DS 800 mg-16 0 mg tablet RxNorm: 758770 1 Tablet(s) PO BID 01/11/2018 01/10/2018 Inactive Dexilant 60 mg capsu le, delayed release RxNorm: 769218 1 Capsule(s) PO daily 12/23/2017 05/09/2018 In active Dexilant 60 mg capsu le, delayed release RxNorm: 229092 1 Capsule(s) PO daily 12/23/2017 12/22/2017 In active atenolol 50 mg tablet RxNorm: 871825 1 Tablet(s) PO BID 12/15/2017 05/09/2018 Inactive alprazolam 1 mg tablet RxNorm: 409392 1-1.5 Tablet(s) PO daily 12/15/2017 04/18/2018 Inactive ceftriaxone 500 mg s olution for injection RxNorm: 2910591 Inj 08/03/2015 08/03/2015 Inactive paroxetine 20 mg tablet RxNorm: 2916118 2 Tablet(s) PO QHS 08/01/2015 10/29/2015 Inactive pravastatin 40 mg ta blet RxNorm: 023308 1/2 Tablet(s) PO QHS 08/01/2015 12/14/2017 Inactive Trazadone 100mg 100 mg RxNorm: 1 PO daily 08/01/2015 11/27/2015 Inactive Trazadone 100mg 100 mg RxNorm: 1 PO daily 08/01/2015 05/04/2018 Inactive atenolol 50 mg tablet RxNorm: 287366 1 Tablet(s) PO daily 08/01/2015 10/29/2015 Inactive Fish Oil 360 mg-1,20 0 mg capsule RxNorm: 120303 1 Capsule(s) PO BID No Start Date Active Zyrtec 10 mg tablet RxNorm: 3753377 1 Tablet(s) PO daily No Start Date Active pravastatin 40 mg ta blet RxNorm: 401714 1/2 Tablet(s) PO QHS No Start Date 07/31/2015 Inactive Benadryl Allergy 25 mg tablet RxNorm: 5110659 1 Tablet(s) PO daily No Start Date 07/19/2018 Inactive Adderall 30 mg tablet RxNorm: 231985 2 Tablet(s) PO daily No Start Date 01/26/2018 Inactive Aspirin Low Dose 81 mg tablet,delayed release RxNorm: 359678 1 Tablet(s) PO BID No Start Date 07/19/2018 Inactive Singulair 10 mg tablet RxNorm: 474727 1 Tablet(s) PO daily No Start Date 05/09/2018 Inactive cyclobenzaprine 10 m g tablet RxNorm: 591577 1 Tablet(s) PO TID as needed muscle spasms No Start Date 02/21/2018 Inactive Trazadone 100mg 100 mg RxNorm: 1 PO daily No Start Date 07/31/2015 Inactive ibuprofen 800 mg tablet RxNorm: 289448 1 Tablet(s) PO BID -TID No Start Date 06/06/2019 Inactive clindamycin 1 %-arthur oyl peroxide 5 % topical gel RxNorm: 676342 TOP APPLY TO AFFECTED AREA(S) ON SERNA TWO TIMES A DAY No Start Date 11/16/2018 Inactive hydrocortisone 2.5 % topical cream RxNorm: 578774 1 Application TOP BID No Start Date 07/20/2018 Inactive alprazolam 1 mg tablet RxNorm: 426628 2 Tablet(s) PO daily No Start Date 12/14/2017 Inactive tramadol 50 mg tablet RxNorm: 830027 1-2 Tablet(s) PO Q6 as needed No Start Date 08/17/2018 Inactive Vitamin D2 50,000 un it capsule RxNorm: 0780145 1 Capsule(s) PO QW No Start Date 05/17/2018 Inactive pantoprazole 40 mg t ablet,delayed release RxNorm: 868389 1 Tablet(s) PO BID No Start Date 12/22/2017 Inactive atenolol 50 mg tablet RxNorm: 906993 1 Tablet(s) PO daily No Start Date 07/31/2015 Inactive hydrocodone 10 mg-ac etaminophen 325 mg tablet RxNorm: 939269 1 Tablet(s) PO Q6 as needed No Start Date 05/16/2019 Inactive paroxetine 20 mg tablet RxNorm: 837386 2 Tablet(s) PO QHS No Start Date 07/31/2015 Inactive Medication Administered Medication Codes Instruc tions Start Date Status testosterone cypionate 200 mg/mL intramuscular oil RxNorm: 5632752 1.25Milliliter 12/29/2018 No longer Active testosterone cypionate 200 mg/mL intramuscular oil RxNorm: 0717937 Milliliter 12/16/2018 No longer Active testosterone cypionate 200 mg/mL intramuscular oil RxNorm: 5628866 1Milliliter 11/15/2018 No longer Active testosterone cypionate 200 mg/mL intramuscular oil RxNorm: 844084 Milliliter 09/28/2018 No longer Active testosterone cypionate 200 mg/mL intramuscular oil RxNorm: 648688 Milliliter 09/16/2018 No longer Active testosterone cypionate 200 mg/mL intramuscular oil RxNorm: 822648 1Milliliter 09/02/2018 No longer Active testosterone cypionate 200 mg/mL intramuscular oil RxNorm: 578542 Milliliter 08/19/2018 No longer Active testosterone cypionate 200 mg/mL intramuscular oil RxNorm: 807395 Milliliter 07/15/2018 No longer Active testosterone cypionate 200 mg/mL intramuscular oil RxNorm: 272105 Milliliter 06/17/2018 No longer Active testosterone cypionate 200 mg/mL intramuscular oil RxNorm: 661564 Milliliter 05/21/2018 No longer Active ceftriaxone 500 mg solution for injection RxNorm: 6738971 08/03/2015 No longer A ctive Immunizations Vaccine [...] Code Result Date Comp. Metabolic Panel (14) 87320 GLUCOSE 117 mg/dL 12/17/2018 Comp. Metabolic Panel (14) 29921 BUN 17 mg/dL 12/17/2018 Comp. Metabolic Panel (14) 23115 CREATININE 0.99 mg/dL 12/17/2018 Comp. Metabolic Panel (14) 38565 SODIUM 137 mmol/L 12/17/2018 Comp. Metabolic Panel (14) 58570 POTASSIUM 4.6 mmol/L 12/17/2018 Comp. Metabolic Panel (14) 77375 CHLORIDE 102 mmol/L 12/17/2018 Comp. Metabolic Panel (14) 53316 CARBON DIOXIDE 21 mmol/L 12/17/2018 Comp. Metabolic Panel (14) 91653 CALCIUM 9.4 mg/dL 12/17/2018 Comp. Metabolic Panel (14) 88014 TOTAL PROTEIN 7.5 g/dL 12/17/2018 Comp. Metabolic Panel (14) 48263 ALBUMIN 5.1 g/dL 12/17/2018 Comp. Metabolic Panel (14) 79247 ALKALINE PHOSPHATASE 79 U/L 12/17/2018 Comp. Metabolic Panel (14) 50887 TOTAL BILIRUBIN 0.5 mg/dL 12/17/2018 Comp. Metabolic Panel (14) 54837 SGOT (AST) 34 U/L 12/17/2018 Comp. Metabolic Panel (14) 75883 SGPT (ALT) 40 U/L 12/17/2018 Comp. Metabolic Panel (14) 12691 eGFR (mL/min/1.73m2) 115 12/17/2018 Comp. Metabolic Panel (14) 49848 INTERPRETATION 12/17/2018 Testosterone Serum 226823 TESTOSTERONE 96.8 ng/dL 12/17/2018 Cbc With Differential/Platelet 97372 WBC 5.61 thou/uL 9 Cbc With Differential/Platelet 80972 RBC 5.53 mil/uL 12/17/2018 Cbc With Differential/Platelet 96907 HEMOGLOBIN 15.4 g/dL 12/17/2018 Cbc With Differential/Platelet 03717 HEMATOCRIT 48.1 % 12/17/2018 Cbc With Differential/Platelet 01494 MCV 87.0 fL 12/17/2018 Cbc With Differential/Platelet 80905 MCH 27.8 pg 12/17/2018 Cbc With Differential/Platelet 25803 MCHC 32.0 g/dL 12/17/2018 Cbc With Differential/Platelet 57411 RDW-CV 13.9 % 12/17/2018 Cbc With Differential/Platelet 70144 PLATELET COUNT 294 thou/uL 12/17/2018 Cbc With Differential/Platelet 35318 NEUTROPHIL % 71.2 % 12/17/2018 Cbc With Differential/Platelet 93099 LYMPHOCYTE % 22.2 % 12/17/2018 Cbc With Differential/Platelet 74517 MONOCYTE % 5.4 % 12/17/2018 Cbc With Differential/Platelet 05045 EOS % 0.9 % 12/17/2018 Cbc With Differential/Platelet 17223 BASO % 0.4 % 12/17/2018 Cbc With Differential/Platelet 43556 NEUTROPHIL ABS # 3.99 thou/uL 12/17/2018 Cbc With Differential/Platelet 76635 LYMPH ABS # 1.25 thou/uL 12/17/2018 Cbc With Differential/Platelet 27528 MONOCYTE ABS # 0.30 thou/uL 12/17/2018 Cbc With Differential/Platelet 90919 EOS ABS # 0.05 thou/uL 9 Cbc With Differential/Platelet 69941 BASO ABS # 0.02 thou/uL 12/17/2018 Lipid Panel 73259 CHOLES TEROL 227 mg/dL 12/17/2018 Lipid Panel 72143 TRIGLY CERIDES 229 mg/dL 12/17/2018 Lipid Panel 16801 HDL 41 mg/dL 12/17/2018 Lipid Panel 18369 CHOLES TEROL/HDL 5.54 12/17/2018 Lipid Panel 95263 LDL (C ALCULATED) 140 mg/dL 12/17/2018 Lipid Panel 50043 LDL/HDL 3.41 12/17/2018 Lipid Panel 99828 INTERP RETATION 12/17/2018 Tsh 607896 TSH 1.190 uIU/mL 12/17/2018 Testosterone Serum 852924 TESTOSTERONE 44.1 ng/dL 08/18/2018 Hemoglobin 237546 WBC 7.62 thou/uL 08/17/2018 Hemoglobin 976166 RBC 5.23 mil/uL 08/17/2018 Hemoglobin 659079 HEMOGL OBIN 15.0 g/dL 08/17/2018 Hemoglobin 977704 HEMATO CRIT 45.0 % 08/17/2018 Hemoglobin 105038 MCV 86.0 fL 08/17/2018 Hemoglobin 912409 MCH 28.7 pg 08/17/2018 Hemoglobin 20020721 MCHC 33.3 g/dL 08/17/2018 Hemoglobin 364452 RDW-CV 12.9 % 08/17/2018 Hemoglobin 20020721 PLATEL ET COUNT 313 thou/uL 08/17/2018 Hematocrit 073030 WBC 7.62 thou/uL 08/17/2018 Hematocrit 216942 RBC 5.23 mil/uL 08/17/2018 Hematocrit HEMOGL OBIN 15.0 g/dL 08/17/2018 Hematocrit 195289 HEMATO CRIT 45.0 % 08/17/2018 Hematocrit MCV 86.0 fL 08/17/2018 Hematocrit 489476 MCH 28.7 pg 08/17/2018 Hematocrit MCHC 33.3 g/dL 08/17/2018 Hematocrit 865282 RDW-CV 12.9 % 08/17/2018 Hematocrit PLATEL ET COUNT 313 thou/uL 08/17/2018 Culture Mrsa [id number] MRSA CULTURE SEE NOTES 06/21/2018 Comp. Metabolic Panel (14) 19195 GLUCOSE 101 mg/dL 06/18/2018 Comp. Metabolic Panel (14) 22184 BUN 18 mg/dL 06/18/2018 Comp. Metabolic Panel (14) 90265 CREATININE 0.99 mg/dL 06/18/2018 Comp. Metabolic Panel (14) 39974 SODIUM 141 mmol/L 06/18/2018 Comp. Metabolic Panel (14) 32784 POTASSIUM 4.3 mmol/L 06/18/2018 Comp. Metabolic Panel (14) 48509 CHLORIDE 103 mmol/L 06/18/2018 Comp. Metabolic Panel (14) 14678 CARBON DIOXIDE 23 mmol/L 06/18/2018 Comp. Metabolic Panel (14) 48814 CALCIUM 9.8 mg/dL 06/18/2018 Comp. Metabolic Panel (14) 33499 TOTAL PROTEIN 7.1 g/dL 06/18/2018 Comp. Metabolic Panel (14) 06155 ALBUMIN 5.2 g/dL 06/18/2018 Comp. Metabolic Panel (14) 21977 ALKALINE PHOSPHATASE 65 U/L 06/18/2018 Comp. Metabolic Panel (14) 17095 TOTAL BILIRUBIN 0.6 mg/dL 06/18/2018 Comp. Metabolic Panel (14) 13937 SGOT (AST) 21 U/L 06/18/2018 Comp. Metabolic Panel (14) 85684 SGPT (ALT) 24 U/L 06/18/2018 Comp. Metabolic Panel (14) 15354 eGFR (mL/min/1.73m2) 115 06/18/2018 Comp. Metabolic Panel (14) 71358 INTERPRETATION 06/18/2018 Cbc With Differential/Platelet 91141 WBC 4.55 thou/uL 8 Cbc With Differential/Platelet 14824 RBC 5.13 mil/uL 06/18/2018 Cbc With Differential/Platelet 49706 HEMOGLOBIN 14.4 g/dL 06/18/2018 Cbc With Differential/Platelet 09838 HEMATOCRIT 44.1 % 06/18/2018 Cbc With Differential/Platelet 54525 MCV 85.9 fL 06/18/2018 Cbc With Differential/Platelet 33013 MCH 28.1 pg 06/18/2018 Cbc With Differential/Platelet 24862 MCHC 32.7 g/dL 06/18/2018 Cbc With Differential/Platelet 90134 RDW-CV 13.4 % 06/18/2018 Cbc With Differential/Platelet 50457 PLATELET COUNT 287 thou/uL 06/18/2018 Cbc With Differential/Platelet 03728 NEUTROPHIL % 53.9 % 06/18/2018 Cbc With Differential/Platelet 20410 LYMPHOCYTE % 36.1 % 06/18/2018 Cbc With Differential/Platelet 11467 MONOCYTE % 7.4 % 06/18/2018 Cbc With Differential/Platelet 13557 EOS % 1.9 % 06/18/2018 Cbc With Differential/Platelet 02816 BASO % 0.8 % 06/18/2018 Cbc With Differential/Platelet 67311 NEUTROPHIL ABS # 2.45 thou/uL 06/18/2018 Cbc With Differential/Platelet 46011 LYMPH ABS # 1.64 thou/uL 06/18/2018 Cbc With Differential/Platelet 89458 MONOCYTE ABS # 0.34 thou/uL 06/18/2018 Cbc With Differential/Platelet 31892 EOS ABS # 0.09 thou/uL 8 Cbc With Differential/Platelet 97715 BASO ABS # 0.04 thou/uL 06/18/2018 Review [...] Exam - General 1995 Eyes conjunctiva/eyelids Overall: cornea clear 12/16/2018 None Full Exam - General 1995 Eyes conjunctiva/eyelids Overall: eyelids normal 12/16/2018 None Full Exam - General 1995 Ears/Nose/Throat otoscopic exam Overall: external auditory canals clear 12/16/2018 None Full Exam - General 1995 Ears/Nose/Throat otoscopic exam Overall: tympanic membranes clear 12/16/2018 None Full Exam - General 1995 Ears/Nose/Throat lips/teeth/gingiva Overall: benign lips 12/16/2018 None Full Exam - General 1995 Ears/Nose/Throat oral cavity/pharynx/larynx Overall: oral mucosa clear [...] hygiene 01/15/2018 None Full Exam - General 1995 Eyes conjunctiva/eyelids Overall: conjunctiva clear 01/15/2018 None [...] Procedure Codes Date THER/PROPH/DIAG INJ SC/IM CPT-4: 78342 12/29/2018 THER/PROPH/DIAG INJ SC/IM CPT-4: 70344 12/16/2018 THER/PROPH/DIAG INJ SC/IM CPT-4: 40937 11/15/2018 THER/PROPH/DIAG INJ SC/IM CPT-4: 66715 09/28/2018 THER/PROPH/DIAG INJ SC/IM CPT-4: 61131 09/16/2018 THER/PROPH/DIAG INJ SC/IM CPT-4: 91302 09/02/2018 THER/PROPH/DIAG INJ SC/IM CPT-4: 46356 08/19/2018 IMMUNIZATION ADMIN CPT- 4: 77500 08/02/2018 FLU VAC NO PRSV 4 VA L 3 YRS+ CPT-4: 38587 08/02/2018 THER/PROPH/DIAG INJ SC/IM CPT-4: 28630 07/15/2018 THER/PROPH/DIAG INJ SC/IM CPT-4: 78112 06/17/2018 THER/PROPH/DIAG INJ SC/IM CPT-4: 19161 05/21/2018 THER/PROPH/DIAG INJ SC/IM CPT-4: 45517 08/03/2015 ROCEPHIN, PER 250 MG CPT-4: J0696 08/03/2015 Vital Signs Date Vital 06/07/2019 Blood Pressure 1: 160/88 Code: 8480-6 BMI: 36.0 Code: 95161-6 Heart Rate 1: 70 bpm Height: 5'7" SpO2: 94% Weight: 230 lbs 05/05/2019 Heigh t: Weight: 04/20/2019 Blood Pressure 1: 160/84 Code: 8480-6 BMI: 34.0 Code: 54932-3 Heart Rate 1: 82 bpm Height: 5'7" SpO2: 97% Weight: 216 lbs 13 o z 12/29/2018 Blood Pressure 1: 144/90 Code: 8480-6 BMI: 34.8 Code: 84074-2 Heart Rate 1: 91 bpm Height: 5'7" SpO2: 98% Weight: 222 lbs 12/20/2018 Blood Pressure 1: 124/76 Code: 8480-6 BMI: 35.4 Code: 26883-9 Heart Rate 1: 79 bpm Height: 5'7" SpO2: 99% Weight: 226 lbs 12/16/2018 Blood Pressure 1: 160/90 Code: 8480-6 BMI: 35.4 Code: 35732-6 Heart Rate 1: 90 bpm Height: 5'7" SpO2: 95% Weight: 226 lbs 11/01/2018 Blood Pressure 1: 146/82 Code: 8480-6 BMI: 36.0 Code: 61925-3 Heart Rate 1: 87 bpm Height: 5'7" SpO2: 98% Weight: 230 lbs 09/24/2018 Blood Pressure 1: 140/82 Code: 8480-6 BMI: 36.0 Code: 67723-2 Heart Rate 1: 86 bpm Height: 5'7" SpO2: 98% Temperature: 37.1 (C ) / 98.7 (F) Weight: 230 lbs 08/16/2018 Blood Pressure 1: 148/82 Code: 8480-6 Blood Pressure 2: 157/92 Code: 8480-6 BMI: 35.9 Code: 00290-0 Heart Rate 1: 72 bpm Height: 5'7" SpO2: 96% Weight: 229 lbs 08/02/2018 Blood Pressure 1: 142/86 Code: 8480-6 BMI: 35.2 Code: 37828-3 Heart Rate 1: 101 bpm Height: 5'7" SpO2: 97% Weight: 225 lbs 05/31/2018 Blood Pressure 1: 134/82 Code: 8480-6 BMI: 35.4 Code: 43839-0 Heart Rate 1: 91 bpm Height: 5'7" SpO2: 96% Weight: 226 lbs 05/20/2018 Blood Pressure 1: 160/100 Code: 8480-6 BMI: 35.2 Code: 96331-4 Heart Rate 1: 89 bpm Height: 5'7" SpO2: 98% Weight: 225 lbs 05/10/2018 Blood Pressure 1: 124/70 Code: 8480-6 BMI: 35.1 Code: 15534-0 Heart Rate 1: 93 bpm Height: 5'7" SpO2: 99% Weight: 224 lbs 01/15/2018 Blood Pressure 1: 142/92 Code: 8480-6 BMI: 36.3 Code: 14857-0 Heart Rate 1: 77 bpm Height: 5'7" SpO2: 98% Weight: 232 lbs 12/15/2017 Blood Pressure 1: 156/98 Code: 8480-6 BMI: 36.2 Code: 13124-0 Heart Rate 1: 87 bpm Height: 5'7" [...] eye 01/15/2018 None vision change Quality ac [place] 01/15/2018 None vision change Quality lo ss [...] vision 12/15/2017 None vision change Quality ac [place] 12/15/2017 None vision change Onset and Resolution sudden in onset 12/15/2017 None vision change Onset of Symptom 3.5 weeks ago 12/15/2017 None vision change Limitation on Activities severely limits vision 12/15/2017 None vision change Triggers n o known associated factors 12/15/2017 None Advance Directives No Advance Directive data Encounters Encounter Performer Loca tion Codes Date ([id number]) 73744 EST. P ATIENT, LEVEL IV Diagnosis: Cervicalgia[ICD10: M54.2] Diagnosis: Pain in thoracic spine[ICD10: M54.6] Diagnosis: Spinal stenosis, thoracic region[ICD10: M48.04] Diagnosis: Spinal stenosis, cervical region[ICD10: M48.02] Diagnosis: Changes in skin texture[ICD10: R23.4] Radha Gonzalez MD, [facility] CPT-4: 67014 06/07/2019 [id number] EST. PATIENT, LEVEL IV Diagnosis: Cervicalgia[ICD10: M54.2] Diagnosis: Other fatigue[ICD10: R53.83] Diagnosis: Essential (primary) hypertension[ICD10: I10] Diagnosis: Major depressive disorder, recurrent, moderate[ICD10: F33.1] Sonia Gonzalez MD, [facility] CPT-4: 59102 05/05/2019 ([id number]) 10745 EST. P ATIENT, LEVEL III Diagnosis: Essential (primary) hypertension[ICD10: I10] Diagnosis: Major depressive disorder, recurrent, moderate[ICD10: F33.1] Diagnosis: Dysphagia, pharyngeal phase[ICD10: R13.13] Radha Gonzalez MD, [facility] CPT-4: 51441 04/20/2019 ([id number]) 42321 EST. 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 PATIENT, LEVEL III Diagnosis: Pain in right arm[ICD10: M79.601] Sonia Gonzalez MD, [facility] CPT-4: 14951 12/20/2018 ([id number]) 78328 EST. 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 PATIENT, LEVEL III Diagnosis: Acute upper respiratory infection, unspecified[ICD10: J06.9] Diagnosis: Other allergic rhinitis[ICD10: J30.89] Sonia Gonzalez MD, [facility] CPT-4: 61785 09/24/2018 ([id number]) 87780 EST. 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 P ATIENT, LEVEL IV Diagnosis: Essential (primary) hypertension[ICD10: I10] Diagnosis: Cervicalgia[ICD10: M54.2] Radha Gonzalez MD, [facility] CPT-4: 90260 05/31/2018 ([id number]) 10900 EST. 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 06/07/2019 [phone] [facility] ([facility] min) Moderate 06/07/2019 Patient Education: Patient [...] over-medication. 05/05/2019 [facility]ment: [phone] [facility] (30 min) Complex 05/05/2019 Appointment: Radha Gonzalez WPtel: [facility] [address] (15 min) Moderate 05/05/2019 Patient Education: Patient [...] 40mg daily. 04/20/2019 Appointment: Radha Gonzalez WPtel: [phone] [facility] [address] (15 min) Moderate 04/20/2019 Patient Education: Patient [...] testosterone injections. 12/29/2018 [facility]ment: [phone] [facility] (15 min) Moderate 12/29/2018 Patient Education: Patient Medication Summary Completed 12/29/2018 Patient Education: .Cervicalgia Neck Pain Completed 12/29/2018 Patient Education: Patient Medication Summary Completed 12/21/2018 Care Plan: %Hba1C add to blood from 12/17 LOINC : 05298-7 Pending 12/21/2018 Visit Plan: Right arm pain - dayna deformity noted - will refer to ortho - The pt is to use prn antiinflammatories to manage acute pain. The patient is to call the office if the pain is worsening or does not improve. 12/20/2018 Appointment: [phone] [facility] (15 min) Moderate 12/20/2018 Patient Education: Patient [...] with testosterone. 12/16/2018 App[facility]ment: [phone] [facility] [place] (15 min) Moderate 12/16/2018 Patient Education: Patient [...] as needed. 11/01/2018 Appointment: Radha Gonzalez WPtel: [phone] [facility] [address] (15 min) Moderate 11/01/2018 Patient Education: Patient [...] allergy spray. 09/24/2018 Appointment: [phone] [facility] (15 min) Moderate 09/24/2018 Patient Education: Patient [...] at home. Multiple symptoms - referral to [facility] - appt in September 30, 2018. 08/16/2018 [facility]ment: [phone] [facility] ([facility] min) Moderate 08/16/2018 Patient Education: Patient [...] at home. Multiple symptoms - referral to [facility] - rashes, hypogonadism, optic neuritis - all points to possible autoimmune syndrome. Spinal stenosis - of thoracic region - pt to talk to Dr. Dunaway about referral to a different specialist for his mid- back. Hypogonadism - continue with testosterone. Flu shot given today in clinic. 08/02/2018 Appointment: [phone] [facility] [place] (15 min) Moderate 08/02/2018 Patient Education: Patient Medication Summary Completed 08/02/2018 Care Plan: Referral Order SNOMED-CT : 440609396 Pending 08/02/2018 Appointment: Injection 07/15/2018 Patient Education: [...] home. Cervical spine stenosis - [facility] I have also recommended a Referral to Dr. Dunaway. I have called and talked to Dr. Dunaway - he looked at the pt's imaging and agrees that getting the pt in to be seen soon would be a preferred option. 05/31/2018 Appointment: Radha Gonzalez WPtel: [facility] [address] (15 min) Moderate 05/31/2018 Patient Education: Patient Medication Summary Completed 05/31/2018 Care Plan: Referral Order SNOMED-CT : 283301492 Pending 05/31/2018 Care Plan: Referral Order SNOMED-CT : 970065147 Pending 05/31/2018 Appointment: Injection 05/21/2018 Patient Education: Patient Medication Summary Completed 05/21/2018 Care Plan: Referral Order SNOMED-CT : 594662469 Pending 05/21/2018 Visit Plan: Cervical and thoracic s tenosis with spinal cord compression -refer for appt with Dr Marr -rx for hydrocodone for pain-start gabapentin at bedtime Soft tissue lesion-left chest-schedule CTfor further evaluation HTN-elevated today-hold adderall-monitor blood pressure 05/20/2018 Appointment: Hannah Simons WPtel: [phone] [place] (15 min) Moderate 05/20/2018 Patient Education: [...] order this. 05/10/2018 Appointment: Sonia Potter WPtel: [facility] [place] (15 min) Moderate 05/10/2018 Patient Education: Patient Medication Summary Completed 05/10/2018 Visit Plan: Sleep apnea - rx for cp ap - actually autopap was recommended and pt given rx today. HTN - referral to dr. kapoor - pt needs stress testing. 01/15/2018 App[facility]ment: [phone] [facility] (15 min) Moderate 01/15/2018 Patient Education: Patient Medication Summary Completed 01/15/2018 Care Plan: Referral Order SNOMED-CT : 845312221 Pending 01/15/2018 Visit Plan: Well Adult - [...] one month. 12/15/2017 Appointment: Radha Gonzalez WPtel: [facility] [address] New Patient 12/15/2017 Patient Education: Patient Medication Summary Completed 12/15/2017 Care Plan: CHEST X-RAY 2VW FRONTAL&LATL LOINC : 48745-4 Pending 12/15/2017 Appointment: a[facility] [phone] [facility] (15 min) Moderate 12/08/2017 Appointment: (S) New Patient 08/13/2015 Visit Plan: steri strip placed on t humb of right hand - antibiotic shot given to patient and rx for keflex 500mg qid x 10 days given to the patient to fill prior to his trip to [place] 08/03/2015 Patient Education: Patient Medication Summary Completed 08/03/2015 Referral: External, Ordering Provider 08/03 Referral info faxed to [place]. Patient informed to be expecting a call from them with appt info Appointment Requested Referral: External, Ordering Provider Referral Appointment Requested Referral: External, Ordering Provider I called today; they will call him to schedule. Completed Referral: Armani Dunaway Referral Appointment Requested Referral: Mayte Kapoor Referral Appointment Requested Referral[phone] [facility] Referral Appointment Requested Referral: External, Ordering Provider Referral Appointment Requested Instructions Comment . Well Adult - pt wa s [...] pressure reports RTC in one month. . Sleep apnea - rx f or cpap - actually autopap was recommended and pt given rx today. HTN - referral to dr. kapoor - pt needs stress testing. . Right arm pain - p opeye deformity noted - will refer to ortho - The pt is to use prn antiinflammatories to manage acute pain. The patient is to call the office if the pain is worsening or does not improve. . Hypertension - wel l controlled - [...] to qid. Hypogonadism - continue with testosterone. CT chest with IV con trast -next [...] evaluation HTN-elevated today-hold adderall-monitor blood pressure . URI - Pt advised t o [...] spray in the nasal steroid allergy spray. . Hypertension - wel l controlled - [...] - refill pain medication as needed. . Hypertension - wel l controlled - [...] to see if he has pseudoxanthoma elasticum. . Hypertension - wel l controlled - continue with current medications, continue with no added salt diet. Pt has been encouraged to exercise daily. The pt has been advised to call the office if there are any acute concerns about change in blood pressure readings at home. Multiple symptoms - referral to [facility] - rashes, hypogonadism, optic neuritis - all [...] paroxetine to 40mg daily. . Hypertension - not optimally controlled today- no medication changes to be made today - continue with current medications, continue with no added salt diet. Pt has been encouraged to exercise daily. The pt has been advised to call the office if there are any acute concerns about change in blood pressure readings at home. Multiple symptoms - referral to [facility] - appt in September 30, 2018. . Chronic neck and b ack pain - pt has chronic pain - has been maintained on current medications, has not sought out other medications, only uses PRN pain medications as directed, and understands the consequences of over-medication. Hypogonadism - continue with testosterone injections. . steri strip placed on thumb of right hand - antibiotic shot given to patient and rx for keflex 500mg qid x 10 days given to the patient to fill prior to his trip to [place] Prazosin - for night mcrae . Chronic [...] directed, and understands the consequences of over-medication. will refill meds for 90 days Will [...] before we are able to order this. . Hypertension - wel l controlled - continue with current medications, continue with no added salt diet. Pt has been encouraged to exercise daily. The pt has been advised to call the office if there are any acute concerns about change in blood pressure readings at home. Cervical spine stenosis - referral to [facility]. I have also recommended a Referral to Dr. Dunaway. I have called and talked to Dr. Dunaway - he looked at the pt's imaging and agrees that getting the pt in to be seen soon would be a preferred option.
--- OUTSIDE RECORDS SUMMARY | 2020-04-28 00:13 | XMS REPORT | CCD ---
Author Author Nilton Gonzalez Organization [facility] Address [address] [place] [address] Phone Care Team Providers Care On Site Property Manager Name Role Phone PP Unavailable CCM Unavailable Summary Purpose Interface Exchange Family history Brother Diagnosis Age At Onset Alcoholism Unknown Father Diagnosis Age At Onset Hypercholesterolemia Unknown Social History Social History Element Codes Description Effective Dates Employment Unknown Curre ntly unemployed 04/20/2019 Marital status Unknown S chanda 12/15/2017 Number of children Unknown 1 12/15/[address]: 468511949 Never smoker 12/15/[address]: 398064 Currently drinks alcohol <1 per week 12/15/2017 [...] 10 mg-ac etaminophen 325 mg tablet RxNorm: 275763 1 Tablet(s) PO TID 07/06/2019 No Stop Date Active alprazolam 1 mg tablet RxNorm: 667239 1 Tablet(s) PO TID as needed 07/05/2019 09/02/2019 Active prazosin 1 mg capsule RxNorm: 247927 2 Capsule(s) PO QPM 06/29/2019 10/26/2019 Active diclofenac sodium 75 mg tablet,delayed release RxNorm: 367591 1 Tablet(s) PO BID 06/27/2019 07/26/2019 Ac tive acyclovir 400 mg tablet RxNorm: 013146 TAKE ONE TABLET BY MOUTH THREE TIMES A D AY NEEDED. TAKE AT ONSET OF SYMPTOMS OF COLD SORES FOR 5 DAYS. 06/27/2019 07/26/2019 Active diclofenac sodium 75 mg tablet,delayed release RxNorm: 788540 1 Tablet(s) PO BID 06/27/2019 06/26/2019 In active testosterone cypiona te 200 mg/mL intramuscular oil RxNorm: 6548370 1.25 Milliliter(s) IM 2 x month 06/24/2019 10/13/2019 Active Adderall 30 mg tablet RxNorm: 852362 2 Tablet(s) PO daily 06/16/2019 07/15/2019 Active hydrocodone 10 mg-ac etaminophen 325 mg tablet RxNorm: 822242 1 Tablet(s) PO TID 06/07/2019 07/05/2019 In active prazosin 1 mg capsule RxNorm: 582853 2 Capsule(s) PO QPM 06/07/2019 06/28/2019 Inactive prazosin 1 mg capsule RxNorm: 337410 TAKE ONE CAPSULE BY MOUTH EVERY NIGHT AT BEDTIME 06/02/2019 06/06/2019 Inactive trazodone 100 mg tablet RxNorm: 577522 TAKE ONE TABLET BY MOUTH EVERY NIGHT AT BEDTIME 05/25/2019 11/20/2019 Active hydrocodone 10 mg-ac etaminophen 325 mg tablet RxNorm: 505621 1 Tablet(s) PO Q6 as needed 05/17/2019 06/06/2019 Inactive paroxetine 40 mg tablet RxNorm: 3513341 TAKE ONE TABLET BY MOUTH DAILY 05/16/2019 11/11/2019 Ac tive hydrocodone 5 mg-fanny taminophen 325 mg tablet RxNorm: 922855 1-2 Tablet(s) PO Q6 a s needed 05/16/2019 05/16/2019 Inactive prazosin 1 mg capsule RxNorm: 190824 1 Capsule(s) PO daily 05/05/2019 06/01/2019 Inactive paroxetine 40 mg tablet RxNorm: 6777633 1 Tablet(s) PO daily 04/20/2019 05/15/2019 Inactive Adderall 30 mg tablet RxNorm: 983110 2 Tablet(s) PO daily 04/19/2019 05/18/2019 Inactive alprazolam 1 mg tablet RxNorm: 067072 1 Tablet(s) PO TID as needed 04/13/2019 06/10/2019 Inactive hydrocodone 5 mg-fanny taminophen 325 mg tablet RxNorm: 979174 1-2 Tablet(s) PO Q6 a s needed 03/21/2019 05/15/2019 Inactive Adderall 30 mg tablet RxNorm: 692549 2 Tablet(s) PO daily 03/21/2019 04/14/2019 Inactive tramadol 50 mg tablet RxNorm: 137749 1-2 Tablet(s) PO Q6 as needed 03/14/2019 No Stop Date Active hydrocodone 5 mg-fanny taminophen 325 mg tablet RxNorm: 087074 1-2 Tablet(s) PO Q6 a s needed 02/23/2019 03/20/2019 Inactive Adderall 30 mg tablet RxNorm: 337423 2 Tablet(s) PO daily 02/23/2019 03/20/2019 Inactive Adderall 30 mg tablet RxNorm: 211519 2 Tablet(s) PO daily 01/24/2019 02/22/2019 Inactive ketoconazole 2 % top ical cream RxNorm: 587313 APPLY ONE GRAM TOPICA LLY TWICE A DAY 01/12/2019 01/26/2019 In active tramadol 50 mg tablet RxNorm: 357639 1-2 Tablet(s) PO Q6 as needed 01/11/2019 03/13/2019 In active atenolol 50 mg tablet RxNorm: 668505 1.5 Tablet(s) PO BID 12/29/2018 12/23/2019 Active hydrocodone 5 mg-fanny taminophen 325 mg tablet RxNorm: 285651 1-2 Tablet(s) PO Q6 a s needed 12/29/2018 02/22/2019 Inactive Adderall 30 mg tablet RxNorm: 989998 2 Tablet(s) PO daily 12/29/2018 01/23/2019 Inactive hydrocodone 5 mg-fanny taminophen 325 mg tablet RxNorm: 310006 1-2 Tablet(s) PO Q6 a s needed 12/29/2018 12/28/2018 Inactive testosterone cypiona te 200 mg/mL intramuscular oil RxNorm: 6990306 1.25 Milliliter(s) IM 12/29/2018 12/28/2018 Inactive hydrocodone 5 mg-fanny taminophen 325 mg tablet RxNorm: 189841 1 Tablet(s) PO TID UT N 12/28/2018 12/28/2018 In active testosterone cypiona te 200 mg/mL intramuscular oil RxNorm: 7044051 1.25 Milliliter(s) IM 2 x month 12/22/2018 04/12/2019 Inactive gabapentin 300 mg ca psule RxNorm: 830173 1 Capsule(s) PO QID 12/16/2018 12/10/2019 Active testosterone cypiona te 200 mg/mL intramuscular oil RxNorm: 0586814 Milliliter(s) IM 12/16/2018 12/16/2018 In active Voltaren 1 % topical gel RxNorm: 840534 2 Gram(s) APPLY TOPIC ALLY four TIMES A DAY 12/16/2018 01/20/2019 In active trazodone 100 mg tablet RxNorm: 574436 TAKE ONE TABLET BY MOUTH EVERY NIGHT AT BEDTIME 12/07/2018 05/24/2019 Inactive hydrocodone 5 mg-fanny taminophen 325 mg tablet RxNorm: 397228 1 Tablet(s) PO TID UT N 11/29/2018 12/27/2018 In active Adderall 30 mg tablet RxNorm: 895526 2 Tablet(s) PO daily 11/29/2018 12/28/2018 Inactive clindamycin 1 %-arthur oyl peroxide 5 % topical gel RxNorm: 885280 TOP APPLY TO AFFECTED AREA(S) ON SERNA TWO TIMES A DAY 11/17/2018 No Stop Date Active testosterone cypiona te 200 mg/mL intramuscular oil RxNorm: 3779428 1 Milliliter(s) IM 2 x month 11/17/2018 12/21/2018 Inactive Zorvolex 35 mg capsule RxNorm: 6190255 1 Capsule(s) PO TID as needed for pain 11/15/2018 05/13/2019 In active ketoconazole 2 % top ical cream RxNorm: 914546 APPLY ONE GRAM TOPICA LLY TWICE A DAY 11/15/2018 11/29/2018 In active testosterone cypiona te 200 mg/mL intramuscular oil RxNorm: 6665922 1 Milliliter(s) IM 11/15/2018 11/14/2018 Inactive hydrocodone 5 mg-fanny taminophen 325 mg tablet RxNorm: 069391 1 Tablet(s) PO TID UT N 11/02/2018 11/28/2018 In active Singulair 10 mg tablet RxNorm: 094519 1 Tablet(s) PO daily 11/01/2018 07/28/2019 Active testosterone cypiona te 200 mg/mL intramuscular oil RxNorm: 3266705 1 Milliliter(s) IM 2 x month 11/01/2018 11/16/2018 Inactive Adderall 30 mg tablet RxNorm: 740298 2 Tablet(s) PO daily 10/29/2018 11/27/2018 Inactive gabapentin 300 mg ca psule RxNorm: 886593 1 Capsule(s) PO BID m ay take TID 10/19/2018 12/15/2018 In active gabapentin 300 mg ca psule RxNorm: 993810 1 Capsule(s) PO BID m ay take TID 10/19/2018 10/18/2018 In active alprazolam 1 mg tablet RxNorm: 457304 1 Tablet(s) PO TID as needed 10/15/2018 04/19/2019 Inactive testosterone cypiona te 200 mg/mL intramuscular oil RxNorm: 514121 Milliliter(s) IM 09/28/2018 09/28/2018 In active pravastatin 40 mg ta blet RxNorm: 973746 TAKE ONE TABLET BY MO UTH EVERY NIGHT AT BEDTIME 09/27/2018 09/21/2019 Active Tamiflu 75 mg capsule RxNorm: 142732 1 Capsule(s) PO BID 09/24/2018 09/28/2018 Inactive Adderall 30 mg tablet RxNorm: 196665 2 Tablet(s) PO daily 09/20/2018 10/19/2018 Inactive hydrocodone 5 mg-fanny taminophen 325 mg tablet RxNorm: 764432 1 Tablet(s) PO TID UT N 09/20/2018 11/01/2018 In active testosterone cypiona te 200 mg/mL intramuscular oil RxNorm: 778489 Milliliter(s) IM 09/16/2018 09/16/2018 In active testosterone cypiona te 200 mg/mL intramuscular oil RxNorm: 181253 1 Milliliter(s) IM 09/02/2018 09/02/2018 Inactive testosterone cypiona te 200 mg/mL intramuscular oil RxNorm: 165048 Milliliter(s) IM 08/19/2018 08/19/2018 In active Adderall 30 mg tablet RxNorm: 645383 2 Tablet(s) PO daily 08/18/2018 09/16/2018 Inactive tramadol 50 mg tablet RxNorm: 064789 1-2 Tablet(s) PO Q6 as needed 08/18/2018 01/12/2019 In active Dexilant 60 mg capsu le, delayed release RxNorm: 164644 1 Capsule(s) PO BID 08/17/2018 08/11/2019 Ac tive ketoconazole 2 % top ical cream RxNorm: 381143 1 Gram(s) TOP BID 08/17/2018 08/26/2018 Inactive Zorvolex 35 mg capsule RxNorm: 1153631 1 Capsule(s) PO TID as needed for pain 08/17/2018 08/16/2018 In active atenolol 50 mg tablet RxNorm: 832114 1 Tablet(s) PO BID 08/17/2018 12/28/2018 Inactive Zorvolex 35 mg capsule RxNorm: 9007399 1 Capsule(s) PO TID as needed for pain 08/17/2018 11/14/2018 In active ketoconazole 2 % top ical cream RxNorm: 949206 1 Gram(s) TOP BID 08/02/2018 08/11/2018 Inactive hydrocortisone 2.5 % topical cream RxNorm: 958556 1 Application TOP BID 07/21/2018 No Stop Date Active Adderall 30 mg tablet RxNorm: 246426 2 Tablet(s) PO daily 07/20/2018 08/17/2018 Inactive testosterone cypiona te 200 mg/mL intramuscular oil RxNorm: 583534 Milliliter(s) IM 07/15/2018 07/15/2018 In active alprazolam 1 mg tablet RxNorm: 783624 1 Tablet(s) PO TID as needed 07/12/2018 09/07/2018 Inactive hydrocodone 5 mg-fanny taminophen 325 mg tablet RxNorm: 172947 1 Tablet(s) PO TID UT N 06/30/2018 09/19/2018 In active pravastatin 40 mg ta blet RxNorm: 657978 1 Tablet(s) PO QHS 06/18/2018 09/15/2018 Inactive Adderall 30 mg tablet RxNorm: 585065 2 Tablet(s) PO daily 06/18/2018 07/17/2018 Inactive testosterone cypiona te 200 mg/mL intramuscular oil RxNorm: 368484 Milliliter(s) IM 06/17/2018 06/17/2018 In active Voltaren 1 % topical gel RxNorm: 084065 APPLY TOPICALLY TWO T IMES A DAY 06/16/2018 07/21/2018 In active Vitamin D2 50,000 un it capsule RxNorm: 2191197 1 Capsule(s) PO QW 05/21/2018 No Stop Date Active Adderall 30 mg tablet RxNorm: 440724 2 Tablet(s) PO daily 05/21/2018 06/17/2018 Inactive testosterone cypiona te 200 mg/mL intramuscular oil RxNorm: 042257 Milliliter(s) IM 05/21/2018 05/21/2018 In active testosterone cypiona te 200 mg/mL intramuscular oil RxNorm: 5382778 1 Milliliter(s) IM monthly 05/20/2018 09/16/2018 Inactive testosterone cypiona te 200 mg/mL intramuscular oil RxNorm: 622171 1 Milliliter(s) IM monthly 05/20/2018 05/19/2018 Inactive hydrocodone 5 mg-fanny taminophen 325 mg tablet RxNorm: 642858 1 Tablet(s) PO TID UT N 05/20/2018 06/29/2018 In active Vitamin D2 50,000 un it capsule RxNorm: 0447885 1 Capsule(s) PO QW 05/18/2018 05/20/2018 Inactive triamcinolone aceton destin 0.025 % topical cream RxNorm: 0974670 1 Application TOP BI D 05/13/2018 No Stop Date Active Dexilant 60 mg capsu le, delayed release RxNorm: 225200 1 Capsule(s) PO BID 05/13/2018 08/16/2018 In active Zorvolex 35 mg capsule RxNorm: 4119777 1 Capsule(s) PO TID as needed for pain 05/12/2018 08/09/2018 In active Voltaren 1 % topical gel RxNorm: 064747 1 Application TOP BID 05/12/2018 06/15/2018 Inactive ProAir HFA 90 mcg/ac tuation aerosol inhaler RxNorm: 091058 1 Puff(s) INH QID as needed 05/10/2018 No Stop Date Active baclofen 20 mg tablet RxNorm: 436389 1 Tablet(s) PO TID as needed muscle spas ms 05/10/2018 06/08/2018 In active Singulair 10 mg tablet RxNorm: 644046 1 Tablet(s) PO daily 05/10/2018 08/07/2018 Inactive acyclovir 400 mg tablet RxNorm: 729042 1 Tablet(s) PO TID as needed take at ons et of symptoms of cold sores x 5 days 05/10/2018 06/26/2019 Inactive atenolol 50 mg tablet RxNorm: 154928 1 Tablet(s) PO BID 05/10/2018 08/07/2018 Inactive triamcinolone aceton destin 0.025 % topical cream RxNorm: 4648476 1 Application TOP BI D 05/10/2018 05/12/2018 In active paroxetine 20 mg tablet RxNorm: 8798110 2 Tablet(s) PO QHS 05/10/2018 04/19/2019 Inactive tramadol 50 mg tablet RxNorm: 641670 1 Tablet(s) PO TID as needed 05/10/2018 05/19/2018 Inactive Dexilant 60 mg capsu le, delayed release RxNorm: 788075 1 Capsule(s) PO daily 05/10/2018 05/12/2018 In active alprazolam 1 mg tablet RxNorm: 290275 1 Tablet(s) PO TID as needed 05/10/2018 08/06/2018 Inactive trazodone 100 mg tablet RxNorm: 011847 1 Tablet(s) PO QHS 05/10/2018 11/05/2018 Inactive cyclobenzaprine 10 m g tablet RxNorm: 079930 1 Tablet(s) PO TID as needed muscle spasms 05/07/2018 07/12/2018 Inactive trazodone 100 mg tablet RxNorm: 967983 1 Tablet(s) PO QHS 05/07/2018 05/09/2018 Inactive Adderall 30 mg tablet RxNorm: 371162 2 Tablet(s) PO daily 04/19/2018 05/18/2018 Inactive alprazolam 1 mg tablet RxNorm: 351071 1 Tablet(s) PO BID 04/19/2018 05/09/2018 Inactive Adderall 30 mg tablet RxNorm: 308412 2 Tablet(s) PO daily 03/26/2018 04/18/2018 Inactive paroxetine 20 mg tablet RxNorm: 9797711 2 Tablet(s) PO QHS 03/15/2018 05/09/2018 Inactive Adderall 30 mg tablet RxNorm: 873951 2 Tablet(s) PO daily 02/25/2018 03/25/2018 Inactive cyclobenzaprine 10 m g tablet RxNorm: 562089 1 Tablet(s) PO TID as needed muscle spasms 02/22/2018 05/06/2018 Inactive tramadol 50 mg tablet RxNorm: 835743 1 Tablet(s) PO TID as needed 02/22/2018 03/07/2018 Inactive tramadol 50 mg tablet RxNorm: 328366 1 Tablet(s) PO TID as needed 02/22/2018 02/21/2018 Inactive trazodone 100 mg tablet RxNorm: 198700 1 Tablet(s) PO QHS 02/03/2018 05/03/2018 Inactive trazodone 100 mg tablet RxNorm: 330542 1 Tablet(s) PO QHS 02/03/2018 02/02/2018 Inactive Adderall 30 mg tablet RxNorm: 232671 2 Tablet(s) PO daily 01/27/2018 02/18/2018 Inactive acyclovir 400 mg tablet RxNorm: 977788 1 Tablet(s) PO TID as needed take at ons et of symptoms of cold sores x 5 days 01/15/2018 05/09/2018 Inactive Bactrim DS 800 mg-16 0 mg tablet RxNorm: 773157 1 Tablet(s) PO BID 01/11/2018 01/17/2018 Inactive Bactrim DS 800 mg-16 0 mg tablet RxNorm: 750584 1 Tablet(s) PO BID 01/11/2018 01/10/2018 Inactive Dexilant 60 mg capsu le, delayed release RxNorm: 770263 1 Capsule(s) PO daily 12/23/2017 05/09/2018 In active Dexilant 60 mg capsu le, delayed release RxNorm: 919116 1 Capsule(s) PO daily 12/23/2017 12/22/2017 In active atenolol 50 mg tablet RxNorm: 406405 1 Tablet(s) PO BID 12/15/2017 05/09/2018 Inactive alprazolam 1 mg tablet RxNorm: 224236 1-1.5 Tablet(s) PO daily 12/15/2017 04/18/2018 Inactive ceftriaxone 500 mg s olution for injection RxNorm: 7821724 Inj 08/03/2015 08/03/2015 Inactive paroxetine 20 mg tablet RxNorm: 6529535 2 Tablet(s) PO QHS 08/01/2015 10/29/2015 Inactive pravastatin 40 mg ta blet RxNorm: 538531 1/2 Tablet(s) PO QHS 08/01/2015 12/14/2017 Inactive Trazadone 100mg 100 mg RxNorm: 1 PO daily 08/01/2015 11/27/2015 Inactive Trazadone 100mg 100 mg RxNorm: 1 PO daily 08/01/2015 05/04/2018 Inactive atenolol 50 mg tablet RxNorm: 327791 1 Tablet(s) PO daily 08/01/2015 10/29/2015 Inactive Fish Oil 360 mg-1,20 0 mg capsule RxNorm: 561943 1 Capsule(s) PO BID No Start Date Active Zyrtec 10 mg tablet RxNorm: 8769726 1 Tablet(s) PO daily No Start Date Active pravastatin 40 mg ta blet RxNorm: 787542 1/2 Tablet(s) PO QHS No Start Date 07/31/2015 Inactive Benadryl Allergy 25 mg tablet RxNorm: 2125047 1 Tablet(s) PO daily No Start Date 07/19/2018 Inactive Adderall 30 mg tablet RxNorm: 217457 2 Tablet(s) PO daily No Start Date 01/26/2018 Inactive Aspirin Low Dose 81 mg tablet,delayed release RxNorm: 863014 1 Tablet(s) PO BID No Start Date 07/19/2018 Inactive Singulair 10 mg tablet RxNorm: 095505 1 Tablet(s) PO daily No Start Date 05/09/2018 Inactive cyclobenzaprine 10 m g tablet RxNorm: 613623 1 Tablet(s) PO TID as needed muscle spasms No Start Date 02/21/2018 Inactive Trazadone 100mg 100 mg RxNorm: 1 PO daily No Start Date 07/31/2015 Inactive ibuprofen 800 mg tablet RxNorm: 398661 1 Tablet(s) PO BID -TID No Start Date 06/06/2019 Inactive clindamycin 1 %-arthur oyl peroxide 5 % topical gel RxNorm: 396487 TOP APPLY TO AFFECTED AREA(S) ON SERNA TWO TIMES A DAY No Start Date 11/16/2018 Inactive hydrocortisone 2.5 % topical cream RxNorm: 418252 1 Application TOP BID No Start Date 07/20/2018 Inactive alprazolam 1 mg tablet RxNorm: 620644 2 Tablet(s) PO daily No Start Date 12/14/2017 Inactive tramadol 50 mg tablet RxNorm: 935339 1-2 Tablet(s) PO Q6 as needed No Start Date 08/17/2018 Inactive Vitamin D2 50,000 un it capsule RxNorm: 2540825 1 Capsule(s) PO QW No Start Date 05/17/2018 Inactive pantoprazole 40 mg t ablet,delayed release RxNorm: 210034 1 Tablet(s) PO BID No Start Date 12/22/2017 Inactive atenolol 50 mg tablet RxNorm: 626137 1 Tablet(s) PO daily No Start Date 07/31/2015 Inactive hydrocodone 10 mg-ac etaminophen 325 mg tablet RxNorm: 175296 1 Tablet(s) PO Q6 as needed No Start Date 05/16/2019 Inactive paroxetine 20 mg tablet RxNorm: 506706 2 Tablet(s) PO QHS No Start Date 07/31/2015 Inactive Medication Administered Medication Codes Instruc tions Start Date Status testosterone cypionate 200 mg/mL intramuscular oil RxNorm: 0700165 1.25Milliliter 12/29/2018 No longer Active testosterone cypionate 200 mg/mL intramuscular oil RxNorm: 8652197 Milliliter 12/16/2018 No longer Active testosterone cypionate 200 mg/mL intramuscular oil RxNorm: 3854641 1Milliliter 11/15/2018 No longer Active testosterone cypionate 200 mg/mL intramuscular oil RxNorm: 056141 Milliliter 09/28/2018 No longer Active testosterone cypionate 200 mg/mL intramuscular oil RxNorm: 612769 Milliliter 09/16/2018 No longer Active testosterone cypionate 200 mg/mL intramuscular oil RxNorm: 065625 1Milliliter 09/02/2018 No longer Active testosterone cypionate 200 mg/mL intramuscular oil RxNorm: 554643 Milliliter 08/19/2018 No longer Active testosterone cypionate 200 mg/mL intramuscular oil RxNorm: 599286 Milliliter 07/15/2018 No longer Active testosterone cypionate 200 mg/mL intramuscular oil RxNorm: 758520 Milliliter 06/17/2018 No longer Active testosterone cypionate 200 mg/mL intramuscular oil RxNorm: 495884 Milliliter 05/21/2018 No longer Active ceftriaxone 500 mg solution for injection RxNorm: 8888446 08/03/2015 No longer A ctive Immunizations Vaccine [...] Code Result Date Comp. Metabolic Panel (14) 35292 GLUCOSE 117 mg/dL 12/17/2018 Comp. Metabolic Panel (14) 54562 BUN 17 mg/dL 12/17/2018 Comp. Metabolic Panel (14) 86783 CREATININE 0.99 mg/dL 12/17/2018 Comp. Metabolic Panel (14) 69946 SODIUM 137 mmol/L 12/17/2018 Comp. Metabolic Panel (14) 67852 POTASSIUM 4.6 mmol/L 12/17/2018 Comp. Metabolic Panel (14) 81318 CHLORIDE 102 mmol/L 12/17/2018 Comp. Metabolic Panel (14) 94034 CARBON DIOXIDE 21 mmol/L 12/17/2018 Comp. Metabolic Panel (14) 84457 CALCIUM 9.4 mg/dL 12/17/2018 Comp. Metabolic Panel (14) 30520 TOTAL PROTEIN 7.5 g/dL 12/17/2018 Comp. Metabolic Panel (14) 06134 ALBUMIN 5.1 g/dL 12/17/2018 Comp. Metabolic Panel (14) 74325 ALKALINE PHOSPHATASE 79 U/L 12/17/2018 Comp. Metabolic Panel (14) 19948 TOTAL BILIRUBIN 0.5 mg/dL 12/17/2018 Comp. Metabolic Panel (14) 81055 SGOT (AST) 34 U/L 12/17/2018 Comp. Metabolic Panel (14) 75843 SGPT (ALT) 40 U/L 12/17/2018 Comp. Metabolic Panel (14) 62627 eGFR (mL/min/1.73m2) 115 12/17/2018 Comp. Metabolic Panel (14) 02595 INTERPRETATION 12/17/2018 Testosterone Serum 413611 TESTOSTERONE 96.8 ng/dL 12/17/2018 Cbc With Differential/Platelet 27259 WBC 5.61 thou/uL 9 Cbc With Differential/Platelet 71260 RBC 5.53 mil/uL 12/17/2018 Cbc With Differential/Platelet 52578 HEMOGLOBIN 15.4 g/dL 12/17/2018 Cbc With Differential/Platelet 98760 HEMATOCRIT 48.1 % 12/17/2018 Cbc With Differential/Platelet 71007 MCV 87.0 fL 12/17/2018 Cbc With Differential/Platelet 07898 MCH 27.8 pg 12/17/2018 Cbc With Differential/Platelet 87368 MCHC 32.0 g/dL 12/17/2018 Cbc With Differential/Platelet 85357 RDW-CV 13.9 % 12/17/2018 Cbc With Differential/Platelet 03928 PLATELET COUNT 294 thou/uL 12/17/2018 Cbc With Differential/Platelet 62134 NEUTROPHIL % 71.2 % 12/17/2018 Cbc With Differential/Platelet 80541 LYMPHOCYTE % 22.2 % 12/17/2018 Cbc With Differential/Platelet 03795 MONOCYTE % 5.4 % 12/17/2018 Cbc With Differential/Platelet 14914 EOS % 0.9 % 12/17/2018 Cbc With Differential/Platelet 67538 BASO % 0.4 % 12/17/2018 Cbc With Differential/Platelet 95842 NEUTROPHIL ABS # 3.99 thou/uL 12/17/2018 Cbc With Differential/Platelet 86446 LYMPH ABS # 1.25 thou/uL 12/17/2018 Cbc With Differential/Platelet 93197 MONOCYTE ABS # 0.30 thou/uL 12/17/2018 Cbc With Differential/Platelet 85617 EOS ABS # 0.05 thou/uL 9 Cbc With Differential/Platelet 89660 BASO ABS # 0.02 thou/uL 12/17/2018 Lipid Panel 33106 CHOLES TEROL 227 mg/dL 12/17/2018 Lipid Panel 85520 TRIGLY CERIDES 229 mg/dL 12/17/2018 Lipid Panel 45207 HDL 41 mg/dL 12/17/2018 Lipid Panel 35884 CHOLES TEROL/HDL 5.54 12/17/2018 Lipid Panel 86672 LDL (C ALCULATED) 140 mg/dL 12/17/2018 Lipid Panel 18972 LDL/HDL 3.41 12/17/2018 Lipid Panel 16999 INTERP RETATION 12/17/2018 Tsh 512993 TSH 1.190 uIU/mL 12/17/2018 Testosterone Serum 037138 TESTOSTERONE 44.1 ng/dL 08/18/2018 Hemoglobin 550427 WBC 7.62 thou/uL 08/17/2018 Hemoglobin 792592 RBC 5.23 mil/uL 08/17/2018 Hemoglobin 442494 HEMOGL OBIN 15.0 g/dL 08/17/2018 Hemoglobin 226550 HEMATO CRIT 45.0 % 08/17/2018 Hemoglobin 778897 MCV 86.0 fL 08/17/2018 Hemoglobin 064669 MCH 28.7 pg 08/17/2018 Hemoglobin 412611 MCHC 33.3 g/dL 08/17/2018 Hemoglobin 112787 RDW-CV 12.9 % 08/17/2018 Hemoglobin 034770 PLATEL ET COUNT 313 thou/uL 08/17/2018 Hematocrit 307130 WBC 7.62 thou/uL 08/17/2018 Hematocrit RBC 5.23 mil/uL 08/17/2018 Hematocrit HEMOGL OBIN 15.0 g/dL 08/17/2018 Hematocrit HEMATO CRIT 45.0 % 08/17/2018 Hematocrit MCV 86.0 fL 08/17/2018 Hematocrit MCH 28.7 pg 08/17/2018 Hematocrit MCHC 33.3 g/dL 08/17/2018 Hematocrit RDW-CV 12.9 % 08/17/2018 Hematocrit PLATEL ET COUNT 313 thou/uL 08/17/2018 Culture Mrsa [id number] MRSA CULTURE SEE NOTES 06/21/2018 Comp. Metabolic Panel (14) 53875 GLUCOSE 101 mg/dL 06/18/2018 Comp. Metabolic Panel (14) 20655 BUN 18 mg/dL 06/18/2018 Comp. Metabolic Panel (14) 79738 CREATININE 0.99 mg/dL 06/18/2018 Comp. Metabolic Panel (14) 90818 SODIUM 141 mmol/L 06/18/2018 Comp. Metabolic Panel (14) 58628 POTASSIUM 4.3 mmol/L 06/18/2018 Comp. Metabolic Panel (14) 19916 CHLORIDE 103 mmol/L 06/18/2018 Comp. Metabolic Panel (14) 33830 CARBON DIOXIDE 23 mmol/L 06/18/2018 Comp. Metabolic Panel (14) 56193 CALCIUM 9.8 mg/dL 06/18/2018 Comp. Metabolic Panel (14) 82158 TOTAL PROTEIN 7.1 g/dL 06/18/2018 Comp. Metabolic Panel (14) 90653 ALBUMIN 5.2 g/dL 06/18/2018 Comp. Metabolic Panel (14) 42526 ALKALINE PHOSPHATASE 65 U/L 06/18/2018 Comp. Metabolic Panel (14) 32461 TOTAL BILIRUBIN 0.6 mg/dL 06/18/2018 Comp. Metabolic Panel (14) 38519 SGOT (AST) 21 U/L 06/18/2018 Comp. Metabolic Panel (14) 81640 SGPT (ALT) 24 U/L 06/18/2018 Comp. Metabolic Panel (14) 91826 eGFR (mL/min/1.73m2) 115 06/18/2018 Comp. Metabolic Panel (14) 28432 INTERPRETATION 06/18/2018 Cbc With Differential/Platelet 52674 WBC 4.55 thou/uL 8 Cbc With Differential/Platelet 32473 RBC 5.13 mil/uL 06/18/2018 Cbc With Differential/Platelet 98552 HEMOGLOBIN 14.4 g/dL 06/18/2018 Cbc With Differential/Platelet 82198 HEMATOCRIT 44.1 % 06/18/2018 Cbc With Differential/Platelet 01674 MCV 85.9 fL 06/18/2018 Cbc With Differential/Platelet 41792 MCH 28.1 pg 06/18/2018 Cbc With Differential/Platelet 22677 MCHC 32.7 g/dL 06/18/2018 Cbc With Differential/Platelet 96108 RDW-CV 13.4 % 06/18/2018 Cbc With Differential/Platelet 41412 PLATELET COUNT 287 thou/uL 06/18/2018 Cbc With Differential/Platelet 68887 NEUTROPHIL % 53.9 % 06/18/2018 Cbc With Differential/Platelet 50359 LYMPHOCYTE % 36.1 % 06/18/2018 Cbc With Differential/Platelet 26417 MONOCYTE % 7.4 % 06/18/2018 Cbc With Differential/Platelet 59366 EOS % 1.9 % 06/18/2018 Cbc With Differential/Platelet 65067 BASO % 0.8 % 06/18/2018 Cbc With Differential/Platelet 12305 NEUTROPHIL ABS # 2.45 thou/uL 06/18/2018 Cbc With Differential/Platelet 64795 LYMPH ABS # 1.64 thou/uL 06/18/2018 Cbc With Differential/Platelet 40873 MONOCYTE ABS # 0.34 thou/uL 06/18/2018 Cbc With Differential/Platelet 63419 EOS ABS # 0.09 thou/uL 8 Cbc With Differential/Platelet 96014 BASO ABS # 0.04 thou/uL 06/18/2018 Review [...] nourished 12/16/2018 None Full Exam - General 1994 Constitutional general appearance Hygiene/Attention to Grooming: good hygiene 12/16/2018 None Full Exam - General 1994 Eyes conjunctiva/eyelids Overall: conjunctiva clear 12/16/2018 None [...] Procedure Codes Date THER/PROPH/DIAG INJ SC/IM CPT-4: 51564 12/29/2018 THER/PROPH/DIAG INJ SC/IM CPT-4: 79721 12/16/2018 THER/PROPH/DIAG INJ SC/IM CPT-4: 62250 11/15/2018 THER/PROPH/DIAG INJ SC/IM CPT-4: 63642 09/28/2018 THER/PROPH/DIAG INJ SC/IM CPT-4: 40387 09/16/2018 THER/PROPH/DIAG INJ SC/IM CPT-4: 71122 09/02/2018 THER/PROPH/DIAG INJ SC/IM CPT-4: 60046 08/19/2018 IMMUNIZATION ADMIN CPT- 4: 81689 08/02/2018 FLU VAC NO PRSV 4 VA L 3 YRS+ CPT-4: 25026 08/02/2018 THER/PROPH/DIAG INJ SC/IM CPT-4: 20470 07/15/2018 THER/PROPH/DIAG INJ SC/IM CPT-4: 87405 06/17/2018 THER/PROPH/DIAG INJ SC/IM CPT-4: 16648 05/21/2018 THER/PROPH/DIAG INJ SC/IM CPT-4: 30091 08/03/2015 ROCEPHIN, PER 250 MG CPT-4: J0696 08/03/2015 Vital Signs Date Vital 06/07/2019 Blood Pressure 1: 160/88 Code: 8480-6 BMI: 36.0 Code: 85544-7 Heart Rate 1: 70 bpm Height: 5'7" SpO2: 94% Weight: 230 lbs 05/05/2019 Heigh t: Weight: 04/20/2019 Blood Pressure 1: 160/84 Code: 8480-6 BMI: 34.0 Code: 98240-5 Heart Rate 1: 82 bpm Height: 5'7" SpO2: 97% Weight: 216 lbs 13 o z 12/29/2018 Blood Pressure 1: 144/90 Code: 8480-6 BMI: 34.8 Code: 36433-3 Heart Rate 1: 91 bpm Height: 5'7" SpO2: 98% Weight: 222 lbs 12/20/2018 Blood Pressure 1: 124/76 Code: 8480-6 BMI: 35.4 Code: 77291-3 Heart Rate 1: 79 bpm Height: 5'7" SpO2: 99% Weight: 226 lbs 12/16/2018 Blood Pressure 1: 160/90 Code: 8480-6 BMI: 35.4 Code: 20977-4 Heart Rate 1: 90 bpm Height: 5'7" SpO2: 95% Weight: 226 lbs 11/01/2018 Blood Pressure 1: 146/82 Code: 8480-6 BMI: 36.0 Code: 32734-8 Heart Rate 1: 87 bpm Height: 5'7" SpO2: 98% Weight: 230 lbs 09/24/2018 Blood Pressure 1: 140/82 Code: 8480-6 BMI: 36.0 Code: 62456-9 Heart Rate 1: 86 bpm Height: 5'7" SpO2: 98% Temperature: 37.1 (C ) / 98.7 (F) Weight: 230 lbs 08/16/2018 Blood Pressure 1: 148/82 Code: 8480-6 Blood Pressure 2: 157/92 Code: 8480-6 BMI: 35.9 Code: 51908-6 Heart Rate 1: 72 bpm Height: 5'7" SpO2: 96% Weight: 229 lbs 08/02/2018 Blood Pressure 1: 142/86 Code: 8480-6 BMI: 35.2 Code: 52047-0 Heart Rate 1: 101 bpm Height: 5'7" SpO2: 97% Weight: 225 lbs 05/31/2018 Blood Pressure 1: 134/82 Code: 8480-6 BMI: 35.4 Code: 08079-4 Heart Rate 1: 91 bpm Height: 5'7" SpO2: 96% Weight: 226 lbs 05/20/2018 Blood Pressure 1: 160/100 Code: 8480-6 BMI: 35.2 Code: 27491-0 Heart Rate 1: 89 bpm Height: 5'7" SpO2: 98% Weight: 225 lbs 05/10/2018 Blood Pressure 1: 124/70 Code: 8480-6 BMI: 35.1 Code: 27641-6 Heart Rate 1: 93 bpm Height: 5'7" SpO2: 99% Weight: 224 lbs 01/15/2018 Blood Pressure 1: 142/92 Code: 8480-6 BMI: 36.3 Code: 14934-4 Heart Rate 1: 77 bpm Height: 5'7" SpO2: 98% Weight: 232 lbs 12/15/2017 Blood Pressure 1: 156/98 Code: 8480-6 BMI: 36.2 Code: 13308-9 Heart Rate 1: 87 bpm Height: 5'7" [...] eye 01/15/2018 None vision change Quality ac [place] 01/15/2018 None vision change Quality lo ss [...] vision 12/15/2017 None vision change Quality ac [place] 12/15/2017 None vision change Onset and Resolution sudden in onset 12/15/2017 None vision change Onset of Symptom 3.5 weeks ago 12/15/2017 None vision change Limitation on Activities severely limits vision 12/15/2017 None vision change Triggers n o known associated factors 12/15/2017 None Advance Directives No Advance Directive data Encounters Encounter Performer Loca tion Codes Date ([id number]) 80050 EST. P ATIENT, LEVEL IV Diagnosis: Cervicalgia[ICD10: M54.2] Diagnosis: Pain in thoracic spine[ICD10: M54.6] Diagnosis: Spinal stenosis, thoracic region[ICD10: M48.04] Diagnosis: Spinal stenosis, cervical region[ICD10: M48.02] Diagnosis: Changes in skin texture[ICD10: R23.4] Radha Gonzalez MD, [facility] CPT-4: 81600 06/07/2019 [id number] EST. PATIENT, LEVEL IV Diagnosis: Cervicalgia[ICD10: M54.2] Diagnosis: Other fatigue[ICD10: R53.83] Diagnosis: Essential (primary) hypertension[ICD10: I10] Diagnosis: Major depressive disorder, recurrent, moderate[ICD10: F33.1] Sonia Gonzalez MD, [facility] CPT-4: 67756 05/05/2019 ([id number]) 11433 EST. P ATIENT, LEVEL III Diagnosis: Essential (primary) hypertension[ICD10: I10] Diagnosis: Major depressive disorder, recurrent, moderate[ICD10: F33.1] Diagnosis: Dysphagia, pharyngeal phase[ICD10: R13.13] Radha Gonzalez MD, [facility] CPT-4: 14546 04/20/2019 ([id number]) 93816 EST. 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 PATIENT, LEVEL III Diagnosis: Pain in right arm[ICD10: M79.601] Sonia Gonzalez MD, [facility] CPT-4: 55575 12/20/2018 ([id number]) 33986 EST. 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 PATIENT, LEVEL III Diagnosis: Acute upper respiratory infection, unspecified[ICD10: J06.9] Diagnosis: Other allergic rhinitis[ICD10: J30.89] Sonia Gonzalez MD, [facility] CPT-4: 23024 09/24/2018 ([id number]) 45833 EST. 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 P ATIENT, LEVEL IV Diagnosis: Essential (primary) hypertension[ICD10: I10] Diagnosis: Cervicalgia[ICD10: M54.2] Radha Gonzalez MD, [facility] CPT-4: 74212 05/31/2018 ([id number]) 23334 EST. 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 06/07/2019 Appointment: Radha Gonzalez WPtel: [address] [place], [place] [id number] (15 min) Moderate 06/07/2019 Patient Education: Patient [...] of over-medication. 05/05/2019 Appointment: Sonia Potter WPtel: [facility]5 [facility] (30 min) Complex 05/05/2019 Appointment: Radha Gonzalez WPtel: [facility]5 [facility] (15 min) Moderate 05/05/2019 Patient Education: Patient [...] 40mg daily. 04/20/2019 Appointment: Radha Gonzalez WPtel: [facility]5 [facility] (15 min) Moderate 04/20/2019 Patient Education: Patient [...] injections. 12/29/2018 Appointment: Radha Gonzalez WPtel: [phone] [facility] (15 min) Moderate 12/29/2018 Patient Education: Patient Medication Summary Completed 12/29/2018 Patient Education: .Cervicalgia Neck Pain Completed 12/29/2018 Patient Education: Patient Medication Summary Completed 12/21/2018 Care Plan: %Hba1C add to blood from 12/17 LOINC : 81039-4 Pending 12/21/2018 Visit Plan: Right arm pain - dayna deformity noted - will refer to ortho - The pt is to use prn antiinflammatories to manage acute pain. The patient is to call the office if the pain is worsening or does not improve. 12/20/2018 Appointment: Sonia Potter WPtel: [phone] [facility] (15 min) Moderate 12/20/2018 Patient Education: Patient [...] with testosterone. 12/16/2018 Appointment: [phone] [place] (15 min) Moderate 12/16/2018 Patient Education: [...] as needed. 11/01/2018 Appointment: Radha Gonzalez WPtel: [phone] [facility] (15 min) Moderate 11/01/2018 Patient Education: Patient [...] allergy spray. 09/24/2018 Appointment: Sonia Potter WPtel: [phone] [facility] (15 min) Moderate 09/24/2018 Patient Education: Patient [...] Multiple symptoms - referral to [facility] - appt in September 30, 2018. 08/16/2018 Appointment: Radha Gonzalez WPtel: [phone] [facility] (15 min) Moderate 08/16/2018 Patient Education: Patient [...] Multiple symptoms - referral to [facility] - rashes, hypogonadism, optic neuritis - all points to possible autoimmune syndrome. Spinal stenosis - of thoracic region - pt to talk to Dr. Dunaway about referral to a different specialist for his mid- back. Hypogonadism - continue with testosterone. Flu shot given today in clinic. 08/02/2018 Appointment: Radha Gonzalez WPtel: [phone] [facility] (15 min) Moderate 08/02/2018 Patient Education: Patient Medication Summary Completed 08/02/2018 Care Plan: Referral Order SNOMED-CT : 033794102 Pending 08/02/2018 Appointment: Injection 07/15/2018 Patient Education: [...] home. Cervical spine stenosis [facility] I have also recommended a Referral to Dr. Dunaway. I have called and talked to Dr. Dunaway - he looked at the pt's imaging and agrees that getting the pt in to be seen soon would be a preferred option. 05/31/2018 Appointment: Radha Gonzalez WPtel: [phone] [facility] [place] (15 min) Moderate 05/31/2018 Patient Education: Patient Medication Summary Completed 05/31/2018 Care Plan: Referral Order SNOMED-CT : 328363253 Pending 05/31/2018 Care Plan: Referral Order SNOMED-CT : 711011066 Pending 05/31/2018 Appointment: Injection 05/21/2018 Patient Education: Patient Medication Summary Completed 05/21/2018 Care Plan: Referral Order SNOMED-CT : 224459087 Pending 05/21/2018 Visit Plan: Cervical and thoracic s tenosis with spinal cord compression -refer for appt with Dr Marr -rx for hydrocodone for pain-start gabapentin at bedtime Soft tissue lesion-left chest-schedule CTfor further evaluation HTN-elevated today-hold adderall-monitor blood pressure 05/20/2018 Appointment: Hannah Simons WPtel: [phone] [phone] [place] (15 min) Moderate 05/20/2018 Patient Education: [...] this. 05/10/2018 Appointment: [phone] [place] (15 min) Moderate 05/10/2018 Patient Education: Patient Medication Summary Completed 05/10/2018 Visit Plan: Sleep apnea - rx for cp ap - actually autopap was recommended and pt given rx today. HTN - referral to dr. kapoor - pt needs stress testing. 01/15/2018 Appointment: Radha Gonzalez WPtel: [facility] [place] (15 min) Moderate 01/15/2018 Patient Education: Patient Medication Summary Completed 01/15/2018 Care Plan: Referral Order SNOMED-CT : 011987017 Pending 01/15/2018 Visit Plan: Well Adult - [...] one month. 12/15/2017 Appointment: Radha Gonzalez WPtel: [address] [place], [place] [address] New Patient 12/15/2017 Patient Education: Patient Medication Summary Completed 12/15/2017 Care Plan: CHEST X-RAY 2VW FRONTAL&LATL LOINC : 49385-8 Pending 12/15/2017 Appointment: Radha Gonzalez WPtel: [address] [place], [place] [address] (15 min) Moderate 12/08/2017 Appointment: (S) New Patient 08/13/2015 Visit Plan: steri strip placed on t humb of right hand - antibiotic shot given to patient and rx for keflex 500mg qid x 10 days given to the patient to fill prior to his trip to [place] 08/03/2015 Patient Education: Patient Medication Summary Completed 08/03/2015 Referral: External, Ordering Provider 08/03 Referral info faxed to [place]. Patient informed to be expecting a call from them with appt info Appointment Requested Referral: External, Ordering Provider Referral Appointment Requested Referral: External, Ordering Provider I called today; they will call him to schedule. Completed Referral: Armani Dunaway Referral Appointment Requested Referral: Mayte Kapoor Referral Appointment Requested Referral: [facility] [phone] [facility] Referral Appointment Requested Referral: External, Ordering Provider [...] Multiple symptoms - referral to [facility] - rashes, hypogonadism, optic neuritis [...] Multiple symptoms - referral to [facility] - appt in September 30, [...] to fill prior to his trip to [place] Prazosin - for night mcrae . Chronic [...] home. Cervical spine stenosis [facility]. I have also recommended a Referral to Dr. Dunaway. I have called and talked to Dr. Dunaway - he looked at the pt's imaging and agrees that getting the pt in to be seen soon would be a preferred option.
--- OUTSIDE RECORDS SUMMARY | 2020-04-28 00:15 | XMS REPORT | CCD ---
Author Author Nilton Gonzalez Organization [facility] Address [address] [place] [address] Phone Care Team Providers Care [employer] Chief Name Role Phone PP Unavailable CCM Unavailable Summary Purpose Interface Exchange Family history Brother Diagnosis Age At Onset Alcoholism Unknown Father Diagnosis Age At Onset Hypercholesterolemia Unknown Social History Social History Element Codes Description Effective Dates Employment Unknown Curre ntly unemployed 04/20/2019 Marital status Unknown S chanda 12/15/2017 Number of children Unknown 1 12/15/[address]: 710403982 Never smoker 12/15/[address]: 020795 Currently drinks alcohol <1 per week 12/15/2017 [...] Date Stop Date Sta tus Fill Instructions alprazolam 1 mg tablet RxNorm: 258341 1 Tablet(s) PO TID as needed 07/05/2019 09/02/2019 Active prazosin 1 mg capsule RxNorm: 452055 2 Capsule(s) PO QPM 06/29/2019 10/26/2019 Active diclofenac sodium 75 mg tablet,delayed release RxNorm: 010205 1 Tablet(s) PO BID 06/27/2019 07/26/2019 Ac tive acyclovir 400 mg tablet RxNorm: 544579 TAKE ONE TABLET BY MOUTH THREE TIMES A D AY NEEDED. TAKE AT ONSET OF SYMPTOMS OF COLD SORES FOR 5 DAYS. 06/27/2019 07/26/2019 Active diclofenac sodium 75 mg tablet,delayed release RxNorm: 569645 1 Tablet(s) PO BID 06/27/2019 06/26/2019 In active testosterone cypiona te 200 mg/mL intramuscular oil RxNorm: 9203405 1.25 Milliliter(s) IM 2 x month 06/24/2019 10/13/2019 Active Adderall 30 mg tablet RxNorm: 045639 2 Tablet(s) PO daily 06/16/2019 07/15/2019 Active hydrocodone 10 mg-ac etaminophen 325 mg tablet RxNorm: 371671 1 Tablet(s) PO TID 06/07/2019 No Stop Date Active prazosin 1 mg capsule RxNorm: 259758 2 Capsule(s) PO QPM 06/07/2019 06/28/2019 Inactive prazosin 1 mg capsule RxNorm: 425393 TAKE ONE CAPSULE BY MOUTH EVERY NIGHT AT BEDTIME 06/02/2019 06/06/2019 Inactive trazodone 100 mg tablet RxNorm: 636489 TAKE ONE TABLET BY MOUTH EVERY NIGHT AT BEDTIME 05/25/2019 11/20/2019 Active hydrocodone 10 mg-ac etaminophen 325 mg tablet RxNorm: 485527 1 Tablet(s) PO Q6 as needed 05/17/2019 06/06/2019 Inactive paroxetine 40 mg tablet RxNorm: 0378091 TAKE ONE TABLET BY MOUTH DAILY 05/16/2019 11/11/2019 Ac tive hydrocodone 5 mg-fanny taminophen 325 mg tablet RxNorm: 870334 1-2 Tablet(s) PO Q6 a s needed 05/16/2019 05/16/2019 Inactive prazosin 1 mg capsule RxNorm: 531137 1 Capsule(s) PO daily 05/05/2019 06/01/2019 Inactive paroxetine 40 mg tablet RxNorm: 9362408 1 Tablet(s) PO daily 04/20/2019 05/15/2019 Inactive Adderall 30 mg tablet RxNorm: 015414 2 Tablet(s) PO daily 04/19/2019 05/18/2019 Inactive alprazolam 1 mg tablet RxNorm: 005907 1 Tablet(s) PO TID as needed 04/13/2019 06/11/2019 Inactive hydrocodone 5 mg-fanny taminophen 325 mg tablet RxNorm: 528159 1-2 Tablet(s) PO Q6 a s needed 03/21/2019 05/15/2019 Inactive Adderall 30 mg tablet RxNorm: 492084 2 Tablet(s) PO daily 03/21/2019 04/14/2019 Inactive tramadol 50 mg tablet RxNorm: 820706 1-2 Tablet(s) PO Q6 as needed 03/14/2019 No Stop Date Active hydrocodone 5 mg-fanny taminophen 325 mg tablet RxNorm: 523430 1-2 Tablet(s) PO Q6 a s needed 02/23/2019 03/20/2019 Inactive Adderall 30 mg tablet RxNorm: 958581 2 Tablet(s) PO daily 02/23/2019 03/20/2019 Inactive Adderall 30 mg tablet RxNorm: 224085 2 Tablet(s) PO daily 01/24/2019 02/22/2019 Inactive ketoconazole 2 % top ical cream RxNorm: 048461 APPLY ONE GRAM TOPICA LLY TWICE A DAY 01/12/2019 01/26/2019 In active tramadol 50 mg tablet RxNorm: 946180 1-2 Tablet(s) PO Q6 as needed 01/11/2019 03/13/2019 In active atenolol 50 mg tablet RxNorm: 183508 1.5 Tablet(s) PO BID 12/29/2018 12/23/2019 Active hydrocodone 5 mg-fanny taminophen 325 mg tablet RxNorm: 188242 1-2 Tablet(s) PO Q6 a s needed 12/29/2018 02/22/2019 Inactive Adderall 30 mg tablet RxNorm: 085361 2 Tablet(s) PO daily 12/29/2018 01/23/2019 Inactive hydrocodone 5 mg-fanny taminophen 325 mg tablet RxNorm: 543286 1-2 Tablet(s) PO Q6 a s needed 12/29/2018 12/28/2018 Inactive testosterone cypiona te 200 mg/mL intramuscular oil RxNorm: 1705900 1.25 Milliliter(s) IM 12/29/2018 12/28/2018 Inactive hydrocodone 5 mg-fanny taminophen 325 mg tablet RxNorm: 711736 1 Tablet(s) PO TID SD N 12/28/2018 12/28/2018 In active testosterone cypiona te 200 mg/mL intramuscular oil RxNorm: 4692363 1.25 Milliliter(s) IM 2 x month 12/22/2018 04/12/2019 Inactive gabapentin 300 mg ca psule RxNorm: 667751 1 Capsule(s) PO QID 12/16/2018 12/10/2019 Active testosterone cypiona te 200 mg/mL intramuscular oil RxNorm: 0747794 Milliliter(s) IM 12/16/2018 12/16/2018 In active Voltaren 1 % topical gel RxNorm: 088113 2 Gram(s) APPLY TOPIC ALLY four TIMES A DAY 12/16/2018 01/20/2019 In active trazodone 100 mg tablet RxNorm: 132260 TAKE ONE TABLET BY MOUTH EVERY NIGHT AT BEDTIME 12/07/2018 05/24/2019 Inactive hydrocodone 5 mg-fanny taminophen 325 mg tablet RxNorm: 845187 1 Tablet(s) PO TID SD N 11/29/2018 12/27/2018 In active Adderall 30 mg tablet RxNorm: 411798 2 Tablet(s) PO daily 11/29/2018 12/28/2018 Inactive clindamycin 1 %-arthur oyl peroxide 5 % topical gel RxNorm: 793708 TOP APPLY TO AFFECTED AREA(S) ON SERNA TWO TIMES A DAY 11/17/2018 No Stop Date Active testosterone cypiona te 200 mg/mL intramuscular oil RxNorm: 9105128 1 Milliliter(s) IM 2 x month 11/17/2018 12/21/2018 Inactive Zorvolex 35 mg capsule RxNorm: 6328997 1 Capsule(s) PO TID as needed for pain 11/15/2018 05/13/2019 In active ketoconazole 2 % top ical cream RxNorm: 397784 APPLY ONE GRAM TOPICA LLY TWICE A DAY 11/15/2018 11/29/2018 In active testosterone cypiona te 200 mg/mL intramuscular oil RxNorm: 2726284 1 Milliliter(s) IM 11/15/2018 11/14/2018 Inactive hydrocodone 5 mg-fanny taminophen 325 mg tablet RxNorm: 649905 1 Tablet(s) PO TID SD N 11/02/2018 11/28/2018 In active Singulair 10 mg tablet RxNorm: 829880 1 Tablet(s) PO daily 11/01/2018 07/28/2019 Active testosterone cypiona te 200 mg/mL intramuscular oil RxNorm: 9009602 1 Milliliter(s) IM 2 x month 11/01/2018 11/16/2018 Inactive Adderall 30 mg tablet RxNorm: 674330 2 Tablet(s) PO daily 10/29/2018 11/27/2018 Inactive gabapentin 300 mg ca psule RxNorm: 024291 1 Capsule(s) PO BID m ay take TID 10/19/2018 12/15/2018 In active gabapentin 300 mg ca psule RxNorm: 167385 1 Capsule(s) PO BID m ay take TID 10/19/2018 10/18/2018 In active alprazolam 1 mg tablet RxNorm: 234886 1 Tablet(s) PO TID as needed 10/15/2018 04/19/2019 Inactive testosterone cypiona te 200 mg/mL intramuscular oil RxNorm: 510732 Milliliter(s) IM 09/28/2018 09/28/2018 In active pravastatin 40 mg ta blet RxNorm: 066818 TAKE ONE TABLET BY MO UTH EVERY NIGHT AT BEDTIME 09/27/2018 09/21/2019 Active Tamiflu 75 mg capsule RxNorm: 443302 1 Capsule(s) PO BID 09/24/2018 09/28/2018 Inactive Adderall 30 mg tablet RxNorm: 196908 2 Tablet(s) PO daily 09/20/2018 10/19/2018 Inactive hydrocodone 5 mg-fanny taminophen 325 mg tablet RxNorm: 693448 1 Tablet(s) PO TID SD N 09/20/2018 11/01/2018 In active testosterone cypiona te 200 mg/mL intramuscular oil RxNorm: 161278 Milliliter(s) IM 09/16/2018 09/16/2018 In active testosterone cypiona te 200 mg/mL intramuscular oil RxNorm: 502010 1 Milliliter(s) IM 09/02/2018 09/02/2018 Inactive testosterone cypiona te 200 mg/mL intramuscular oil RxNorm: 172628 Milliliter(s) IM 08/19/2018 08/19/2018 In active Adderall 30 mg tablet RxNorm: 857078 2 Tablet(s) PO daily 08/18/2018 09/16/2018 Inactive tramadol 50 mg tablet RxNorm: 463381 1-2 Tablet(s) PO Q6 as needed 08/18/2018 01/12/2019 In active Dexilant 60 mg capsu le, delayed release RxNorm: 076943 1 Capsule(s) PO BID 08/17/2018 08/11/2019 Ac tive ketoconazole 2 % top ical cream RxNorm: 692509 1 Gram(s) TOP BID 08/17/2018 08/26/2018 Inactive Zorvolex 35 mg capsule RxNorm: 3359376 1 Capsule(s) PO TID as needed for pain 08/17/2018 08/16/2018 In active atenolol 50 mg tablet RxNorm: 466835 1 Tablet(s) PO BID 08/17/2018 12/28/2018 Inactive Zorvolex 35 mg capsule RxNorm: 8428261 1 Capsule(s) PO TID as needed for pain 08/17/2018 11/14/2018 In active ketoconazole 2 % top ical cream RxNorm: 959994 1 Gram(s) TOP BID 08/02/2018 08/11/2018 Inactive hydrocortisone 2.5 % topical cream RxNorm: 971263 1 Application TOP BID 07/21/2018 No Stop Date Active Adderall 30 mg tablet RxNorm: 300812 2 Tablet(s) PO daily 07/20/2018 08/17/2018 Inactive testosterone cypiona te 200 mg/mL intramuscular oil RxNorm: 141237 Milliliter(s) IM 07/15/2018 07/15/2018 In active alprazolam 1 mg tablet RxNorm: 230175 1 Tablet(s) PO TID as needed 07/12/2018 09/07/2018 Inactive hydrocodone 5 mg-fanny taminophen 325 mg tablet RxNorm: 989861 1 Tablet(s) PO TID SD N 06/30/2018 09/19/2018 In active pravastatin 40 mg ta blet RxNorm: 652053 1 Tablet(s) PO QHS 06/18/2018 09/15/2018 Inactive Adderall 30 mg tablet RxNorm: 231836 2 Tablet(s) PO daily 06/18/2018 07/17/2018 Inactive testosterone cypiona te 200 mg/mL intramuscular oil RxNorm: 612036 Milliliter(s) IM 06/17/2018 06/17/2018 In active Voltaren 1 % topical gel RxNorm: 677973 APPLY TOPICALLY TWO T IMES A DAY 06/16/2018 07/21/2018 In active Vitamin D2 50,000 un it capsule RxNorm: 2532353 1 Capsule(s) PO QW 05/21/2018 No Stop Date Active Adderall 30 mg tablet RxNorm: 410216 2 Tablet(s) PO daily 05/21/2018 06/17/2018 Inactive testosterone cypiona te 200 mg/mL intramuscular oil RxNorm: 090030 Milliliter(s) IM 05/21/2018 05/21/2018 In active testosterone cypiona te 200 mg/mL intramuscular oil RxNorm: 4121618 1 Milliliter(s) IM monthly 05/20/2018 09/16/2018 Inactive testosterone cypiona te 200 mg/mL intramuscular oil RxNorm: 261983 1 Milliliter(s) IM monthly 05/20/2018 05/19/2018 Inactive hydrocodone 5 mg-fanny taminophen 325 mg tablet RxNorm: 563001 1 Tablet(s) PO TID SD N 05/20/2018 06/29/2018 In active Vitamin D2 50,000 un it capsule RxNorm: 7250750 1 Capsule(s) PO QW 05/18/2018 05/20/2018 Inactive triamcinolone aceton destin 0.025 % topical cream RxNorm: 8307429 1 Application TOP BI D 05/13/2018 No Stop Date Active Dexilant 60 mg capsu le, delayed release RxNorm: 292910 1 Capsule(s) PO BID 05/13/2018 08/16/2018 In active Zorvolex 35 mg capsule RxNorm: 9936107 1 Capsule(s) PO TID as needed for pain 05/12/2018 08/09/2018 In active Voltaren 1 % topical gel RxNorm: 912791 1 Application TOP BID 05/12/2018 06/15/2018 Inactive ProAir HFA 90 mcg/ac tuation aerosol inhaler RxNorm: 538155 1 Puff(s) INH QID as needed 05/10/2018 No Stop Date Active baclofen 20 mg tablet RxNorm: 798464 1 Tablet(s) PO TID as needed muscle spas ms 05/10/2018 06/08/2018 In active Singulair 10 mg tablet RxNorm: 422678 1 Tablet(s) PO daily 05/10/2018 08/07/2018 Inactive acyclovir 400 mg tablet RxNorm: 563406 1 Tablet(s) PO TID as needed take at ons et of symptoms of cold sores x 5 days 05/10/2018 06/26/2019 Inactive atenolol 50 mg tablet RxNorm: 027998 1 Tablet(s) PO BID 05/10/2018 08/07/2018 Inactive triamcinolone aceton destin 0.025 % topical cream RxNorm: 2714251 1 Application TOP BI D 05/10/2018 05/12/2018 In active paroxetine 20 mg tablet RxNorm: 0399528 2 Tablet(s) PO QHS 05/10/2018 04/19/2019 Inactive tramadol 50 mg tablet RxNorm: 786805 1 Tablet(s) PO TID as needed 05/10/2018 05/19/2018 Inactive Dexilant 60 mg capsu le, delayed release RxNorm: 106690 1 Capsule(s) PO daily 05/10/2018 05/12/2018 In active alprazolam 1 mg tablet RxNorm: 508304 1 Tablet(s) PO TID as needed 05/10/2018 08/06/2018 Inactive trazodone 100 mg tablet RxNorm: 858548 1 Tablet(s) PO QHS 05/10/2018 11/05/2018 Inactive cyclobenzaprine 10 m g tablet RxNorm: 323584 1 Tablet(s) PO TID as needed muscle spasms 05/07/2018 07/12/2018 Inactive trazodone 100 mg tablet RxNorm: 303422 1 Tablet(s) PO QHS 05/07/2018 05/09/2018 Inactive Adderall 30 mg tablet RxNorm: 453532 2 Tablet(s) PO daily 04/19/2018 05/18/2018 Inactive alprazolam 1 mg tablet RxNorm: 161642 1 Tablet(s) PO BID 04/19/2018 05/09/2018 Inactive Adderall 30 mg tablet RxNorm: 217976 2 Tablet(s) PO daily 03/26/2018 04/18/2018 Inactive paroxetine 20 mg tablet RxNorm: 9818336 2 Tablet(s) PO QHS 03/15/2018 05/09/2018 Inactive Adderall 30 mg tablet RxNorm: 367239 2 Tablet(s) PO daily 02/25/2018 03/25/2018 Inactive cyclobenzaprine 10 m g tablet RxNorm: 715268 1 Tablet(s) PO TID as needed muscle spasms 02/22/2018 05/06/2018 Inactive tramadol 50 mg tablet RxNorm: 200844 1 Tablet(s) PO TID as needed 02/22/2018 03/07/2018 Inactive tramadol 50 mg tablet RxNorm: 784816 1 Tablet(s) PO TID as needed 02/22/2018 02/21/2018 Inactive trazodone 100 mg tablet RxNorm: 579937 1 Tablet(s) PO QHS 02/03/2018 05/03/2018 Inactive trazodone 100 mg tablet RxNorm: 201913 1 Tablet(s) PO QHS 02/03/2018 02/02/2018 Inactive Adderall 30 mg tablet RxNorm: 630159 2 Tablet(s) PO daily 01/27/2018 02/18/2018 Inactive acyclovir 400 mg tablet RxNorm: 399100 1 Tablet(s) PO TID as needed take at ons et of symptoms of cold sores x 5 days 01/15/2018 05/09/2018 Inactive Bactrim DS 800 mg-16 0 mg tablet RxNorm: 470076 1 Tablet(s) PO BID 01/11/2018 01/17/2018 Inactive Bactrim DS 800 mg-16 0 mg tablet RxNorm: 252744 1 Tablet(s) PO BID 01/11/2018 01/10/2018 Inactive Dexilant 60 mg capsu le, delayed release RxNorm: 338114 1 Capsule(s) PO daily 12/23/2017 05/09/2018 In active Dexilant 60 mg capsu le, delayed release RxNorm: 779142 1 Capsule(s) PO daily 12/23/2017 12/22/2017 In active atenolol 50 mg tablet RxNorm: 590402 1 Tablet(s) PO BID 12/15/2017 05/09/2018 Inactive alprazolam 1 mg tablet RxNorm: 488517 1-1.5 Tablet(s) PO daily 12/15/2017 04/18/2018 Inactive ceftriaxone 500 mg s olution for injection RxNorm: 1278828 Inj 08/03/2015 08/03/2015 Inactive paroxetine 20 mg tablet RxNorm: 6577208 2 Tablet(s) PO QHS 08/01/2015 10/29/2015 Inactive pravastatin 40 mg ta blet RxNorm: 588234 1/2 Tablet(s) PO QHS 08/01/2015 12/14/2017 Inactive Trazadone 100mg 100 mg RxNorm: 1 PO daily 08/01/2015 11/27/2015 Inactive Trazadone 100mg 100 mg RxNorm: 1 PO daily 08/01/2015 05/04/2018 Inactive atenolol 50 mg tablet RxNorm: 578279 1 Tablet(s) PO daily 08/01/2015 10/29/2015 Inactive Fish Oil 360 mg-1,20 0 mg capsule RxNorm: 648993 1 Capsule(s) PO BID No Start Date Active Zyrtec 10 mg tablet RxNorm: 1957104 1 Tablet(s) PO daily No Start Date Active pravastatin 40 mg ta blet RxNorm: 174209 1/2 Tablet(s) PO QHS No Start Date 07/31/2015 Inactive Benadryl Allergy 25 mg tablet RxNorm: 7532168 1 Tablet(s) PO daily No Start Date 07/19/2018 Inactive Adderall 30 mg tablet RxNorm: 496946 2 Tablet(s) PO daily No Start Date 01/26/2018 Inactive Aspirin Low Dose 81 mg tablet,delayed release RxNorm: 077301 1 Tablet(s) PO BID No Start Date 07/19/2018 Inactive Singulair 10 mg tablet RxNorm: 736291 1 Tablet(s) PO daily No Start Date 05/09/2018 Inactive cyclobenzaprine 10 m g tablet RxNorm: 705514 1 Tablet(s) PO TID as needed muscle spasms No Start Date 02/21/2018 Inactive Trazadone 100mg 100 mg RxNorm: 1 PO daily No Start Date 07/31/2015 Inactive ibuprofen 800 mg tablet RxNorm: 931656 1 Tablet(s) PO BID -TID No Start Date 06/06/2019 Inactive clindamycin 1 %-arthur oyl peroxide 5 % topical gel RxNorm: 428994 TOP APPLY TO AFFECTED AREA(S) ON SERNA TWO TIMES A DAY No Start Date 11/16/2018 Inactive hydrocortisone 2.5 % topical cream RxNorm: 069433 1 Application TOP BID No Start Date 07/20/2018 Inactive alprazolam 1 mg tablet RxNorm: 375265 2 Tablet(s) PO daily No Start Date 12/14/2017 Inactive tramadol 50 mg tablet RxNorm: 895623 1-2 Tablet(s) PO Q6 as needed No Start Date 08/17/2018 Inactive Vitamin D2 50,000 un it capsule RxNorm: 6660785 1 Capsule(s) PO QW No Start Date 05/17/2018 Inactive pantoprazole 40 mg t ablet,delayed release RxNorm: 562930 1 Tablet(s) PO BID No Start Date 12/22/2017 Inactive atenolol 50 mg tablet RxNorm: 656578 1 Tablet(s) PO daily No Start Date 07/31/2015 Inactive hydrocodone 10 mg-ac etaminophen 325 mg tablet RxNorm: 703184 1 Tablet(s) PO Q6 as needed No Start Date 05/16/2019 Inactive paroxetine 20 mg tablet RxNorm: 985746 2 Tablet(s) PO QHS No Start Date 07/31/2015 Inactive Medication Administered Medication Codes Instruc tions Start Date Status testosterone cypionate 200 mg/mL intramuscular oil RxNorm: 1789989 1.25Milliliter 12/29/2018 No longer Active testosterone cypionate 200 mg/mL intramuscular oil RxNorm: 6016649 Milliliter 12/16/2018 No longer Active testosterone cypionate 200 mg/mL intramuscular oil RxNorm: 0145714 1Milliliter 11/15/2018 No longer Active testosterone cypionate 200 mg/mL intramuscular oil RxNorm: 504216 Milliliter 09/28/2018 No longer Active testosterone cypionate 200 mg/mL intramuscular oil RxNorm: 473935 Milliliter 09/16/2018 No longer Active testosterone cypionate 200 mg/mL intramuscular oil RxNorm: 359217 1Milliliter 09/02/2018 No longer Active testosterone cypionate 200 mg/mL intramuscular oil RxNorm: 115846 Milliliter 08/19/2018 No longer Active testosterone cypionate 200 mg/mL intramuscular oil RxNorm: 229193 Milliliter 07/15/2018 No longer Active testosterone cypionate 200 mg/mL intramuscular oil RxNorm: 307131 Milliliter 06/17/2018 No longer Active testosterone cypionate 200 mg/mL intramuscular oil RxNorm: 540172 Milliliter 05/21/2018 No longer Active ceftriaxone 500 mg solution for injection RxNorm: 7728066 08/03/2015 No longer A ctive Immunizations Vaccine [...] Code Result Date Comp. Metabolic Panel (14) 38279 GLUCOSE 117 mg/dL 12/17/2018 Comp. Metabolic Panel (14) 77694 BUN 17 mg/dL 12/17/2018 Comp. Metabolic Panel (14) 02591 CREATININE 0.99 mg/dL 12/17/2018 Comp. Metabolic Panel (14) 80043 SODIUM 137 mmol/L 12/17/2018 Comp. Metabolic Panel (14) 94696 POTASSIUM 4.6 mmol/L 12/17/2018 Comp. Metabolic Panel (14) 80260 CHLORIDE 102 mmol/L 12/17/2018 Comp. Metabolic Panel (14) 38231 CARBON DIOXIDE 21 mmol/L 12/17/2018 Comp. Metabolic Panel (14) 76555 CALCIUM 9.4 mg/dL 12/17/2018 Comp. Metabolic Panel (14) 63074 TOTAL PROTEIN 7.5 g/dL 12/17/2018 Comp. Metabolic Panel (14) 95957 ALBUMIN 5.1 g/dL 12/17/2018 Comp. Metabolic Panel (14) 02058 ALKALINE PHOSPHATASE 79 U/L 12/17/2018 Comp. Metabolic Panel (14) 11241 TOTAL BILIRUBIN 0.5 mg/dL 12/17/2018 Comp. Metabolic Panel (14) 00536 SGOT (AST) 34 U/L 12/17/2018 Comp. Metabolic Panel (14) 07470 SGPT (ALT) 40 U/L 12/17/2018 Comp. Metabolic Panel (14) 69747 eGFR (mL/min/1.73m2) 115 12/17/2018 Comp. Metabolic Panel (14) 19766 INTERPRETATION 12/17/2018 Testosterone Serum 220500 TESTOSTERONE 96.8 ng/dL 12/17/2018 Cbc With Differential/Platelet 69558 WBC 5.61 thou/uL 9 Cbc With Differential/Platelet 58987 RBC 5.53 mil/uL 12/17/2018 Cbc With Differential/Platelet 27812 HEMOGLOBIN 15.4 g/dL 12/17/2018 Cbc With Differential/Platelet 04242 HEMATOCRIT 48.1 % 12/17/2018 Cbc With Differential/Platelet 47464 MCV 87.0 fL 12/17/2018 Cbc With Differential/Platelet 90827 MCH 27.8 pg 12/17/2018 Cbc With Differential/Platelet 63701 MCHC 32.0 g/dL 12/17/2018 Cbc With Differential/Platelet 90573 RDW-CV 13.9 % 12/17/2018 Cbc With Differential/Platelet 70948 PLATELET COUNT 294 thou/uL 12/17/2018 Cbc With Differential/Platelet 98342 NEUTROPHIL % 71.2 % 12/17/2018 Cbc With Differential/Platelet 22767 LYMPHOCYTE % 22.2 % 12/17/2018 Cbc With Differential/Platelet 13325 MONOCYTE % 5.4 % 12/17/2018 Cbc With Differential/Platelet 17596 EOS % 0.9 % 12/17/2018 Cbc With Differential/Platelet 18509 BASO % 0.4 % 12/17/2018 Cbc With Differential/Platelet 52216 NEUTROPHIL ABS # 3.99 thou/uL 12/17/2018 Cbc With Differential/Platelet 66906 LYMPH ABS # 1.25 thou/uL 12/17/2018 Cbc With Differential/Platelet 30276 MONOCYTE ABS # 0.30 thou/uL 12/17/2018 Cbc With Differential/Platelet 78219 EOS ABS # 0.05 thou/uL 9 Cbc With Differential/Platelet 27144 BASO ABS # 0.02 thou/uL 12/17/2018 Lipid Panel 90755 CHOLES TEROL 227 mg/dL 12/17/2018 Lipid Panel 43492 TRIGLY CERIDES 229 mg/dL 12/17/2018 Lipid Panel 01880 HDL 41 mg/dL 12/17/2018 Lipid Panel 40568 CHOLES TEROL/HDL 5.54 12/17/2018 Lipid Panel 07532 LDL (C ALCULATED) 140 mg/dL 12/17/2018 Lipid Panel 73295 LDL/HDL 3.41 12/17/2018 Lipid Panel 38680 INTERP RETATION 12/17/2018 Tsh 721360 TSH 1.190 uIU/mL 12/17/2018 Testosterone Serum 269983 TESTOSTERONE 44.1 ng/dL 08/18/2018 Hemoglobin 603380 WBC 7.62 thou/uL 08/17/2018 Hemoglobin 217213 RBC 5.23 mil/uL 08/17/2018 Hemoglobin 916358 HEMOGL OBIN 15.0 g/dL 08/17/2018 Hemoglobin 100619 HEMATO CRIT 45.0 % 08/17/2018 Hemoglobin 20020721 MCV 86.0 fL 08/17/2018 Hemoglobin 107002 MCH 28.7 pg 08/17/2018 Hemoglobin 221475 MCHC 33.3 g/dL 08/17/2018 Hemoglobin 20020721 RDW-CV 12.9 % 08/17/2018 Hemoglobin 581191 PLATEL ET COUNT 313 thou/uL 08/17/2018 Hematocrit 441939 WBC 7.62 thou/uL 08/17/2018 Hematocrit RBC 5.23 mil/uL 08/17/2018 Hematocrit HEMOGL OBIN 15.0 g/dL 08/17/2018 Hematocrit HEMATO CRIT 45.0 % 08/17/2018 Hematocrit MCV 86.0 fL 08/17/2018 Hematocrit MCH 28.7 pg 08/17/2018 Hematocrit MCHC 33.3 g/dL 08/17/2018 Hematocrit RDW-CV 12.9 % 08/17/2018 Hematocrit PLATEL ET COUNT 313 thou/uL 08/17/2018 Culture Mrsa [id number] MRSA CULTURE SEE NOTES 06/21/2018 Comp. Metabolic Panel (14) 83091 GLUCOSE 101 mg/dL 06/18/2018 Comp. Metabolic Panel (14) 87658 BUN 18 mg/dL 06/18/2018 Comp. Metabolic Panel (14) 08567 CREATININE 0.99 mg/dL 06/18/2018 Comp. Metabolic Panel (14) 29598 SODIUM 141 mmol/L 06/18/2018 Comp. Metabolic Panel (14) 48977 POTASSIUM 4.3 mmol/L 06/18/2018 Comp. Metabolic Panel (14) 50295 CHLORIDE 103 mmol/L 06/18/2018 Comp. Metabolic Panel (14) 25471 CARBON DIOXIDE 23 mmol/L 06/18/2018 Comp. Metabolic Panel (14) 10435 CALCIUM 9.8 mg/dL 06/18/2018 Comp. Metabolic Panel (14) 67084 TOTAL PROTEIN 7.1 g/dL 06/18/2018 Comp. Metabolic Panel (14) 49463 ALBUMIN 5.2 g/dL 06/18/2018 Comp. Metabolic Panel (14) 56295 ALKALINE PHOSPHATASE 65 U/L 06/18/2018 Comp. Metabolic Panel (14) 07707 TOTAL BILIRUBIN 0.6 mg/dL 06/18/2018 Comp. Metabolic Panel (14) 46350 SGOT (AST) 21 U/L 06/18/2018 Comp. Metabolic Panel (14) 06158 SGPT (ALT) 24 U/L 06/18/2018 Comp. Metabolic Panel (14) 55629 eGFR (mL/min/1.73m2) 115 06/18/2018 Comp. Metabolic Panel (14) 53684 INTERPRETATION 06/18/2018 Cbc With Differential/Platelet 08559 WBC 4.55 thou/uL 8 Cbc With Differential/Platelet 28241 RBC 5.13 mil/uL 06/18/2018 Cbc With Differential/Platelet 20167 HEMOGLOBIN 14.4 g/dL 06/18/2018 Cbc With Differential/Platelet 84910 HEMATOCRIT 44.1 % 06/18/2018 Cbc With Differential/Platelet 85616 MCV 85.9 fL 06/18/2018 Cbc With Differential/Platelet 85742 MCH 28.1 pg 06/18/2018 Cbc With Differential/Platelet 85347 MCHC 32.7 g/dL 06/18/2018 Cbc With Differential/Platelet 43290 RDW-CV 13.4 % 06/18/2018 Cbc With Differential/Platelet 95906 PLATELET COUNT 287 thou/uL 06/18/2018 Cbc With Differential/Platelet 46727 NEUTROPHIL % 53.9 % 06/18/2018 Cbc With Differential/Platelet 37457 LYMPHOCYTE % 36.1 % 06/18/2018 Cbc With Differential/Platelet 61627 MONOCYTE % 7.4 % 06/18/2018 Cbc With Differential/Platelet 63086 EOS % 1.9 % 06/18/2018 Cbc With Differential/Platelet 60025 BASO % 0.8 % 06/18/2018 Cbc With Differential/Platelet 65862 NEUTROPHIL ABS # 2.45 thou/uL 06/18/2018 Cbc With Differential/Platelet 66700 LYMPH ABS # 1.64 thou/uL 06/18/2018 Cbc With Differential/Platelet 91475 MONOCYTE ABS # 0.34 thou/uL 06/18/2018 Cbc With Differential/Platelet 60577 EOS ABS # 0.09 thou/uL 8 Cbc With Differential/Platelet 64946 BASO ABS # 0.04 thou/uL 06/18/2018 Review [...] Effective Dates Notes Full Exam - General 1995 Constitutional general appearance Overall: well developed 06/07/2019 [...] General 1994 Eyes conjunctiva/eyelids Overall: eyelids normal 12/16/2018 None [...] normal 08/02/2018 None Full Exam - General 1995 Ears/Nose/Throat [...] clear 01/15/2018 None Full Exam - General 1995 Ears/Nose/Throat oral cavity/pharynx/larynx Overall: oropharyngeal mucosa clear 01/15/2018 None Full Exam - General 1995 Ears/Nose/Throat oral cavity/pharynx/larynx Overall: hypopharynx benign 01/15/2018 [...] Procedure Codes Date THER/PROPH/DIAG INJ SC/IM CPT-4: 97236 12/29/2018 THER/PROPH/DIAG INJ SC/IM CPT-4: 68865 12/16/2018 THER/PROPH/DIAG INJ SC/IM CPT-4: 56253 11/15/2018 THER/PROPH/DIAG INJ SC/IM CPT-4: 52431 09/28/2018 THER/PROPH/DIAG INJ SC/IM CPT-4: 09356 09/16/2018 THER/PROPH/DIAG INJ SC/IM CPT-4: 22185 09/02/2018 THER/PROPH/DIAG INJ SC/IM CPT-4: 30066 08/19/2018 IMMUNIZATION ADMIN CPT- 4: 42137 08/02/2018 FLU VAC NO PRSV 4 VA L 3 YRS+ CPT-4: 14999 08/02/2018 THER/PROPH/DIAG INJ SC/IM CPT-4: 07763 07/15/2018 THER/PROPH/DIAG INJ SC/IM CPT-4: 37671 06/17/2018 THER/PROPH/DIAG INJ SC/IM CPT-4: 34481 05/21/2018 THER/PROPH/DIAG INJ SC/IM CPT-4: 75322 08/03/2015 ROCEPHIN, PER 250 MG CPT-4: J0696 08/03/2015 Vital Signs Date Vital 06/07/2019 Blood Pressure 1: 160/88 Code: 8480-6 BMI: 36.0 Code: 36928-1 Heart Rate 1: 70 bpm Height: 5'7" SpO2: 94% Weight: 230 lbs 05/05/2019 Heigh t: Weight: 04/20/2019 Blood Pressure 1: 160/84 Code: 8480-6 BMI: 34.0 Code: 52913-0 Heart Rate 1: 82 bpm Height: 5'7" SpO2: 97% Weight: 216 lbs 13 o z 12/29/2018 Blood Pressure 1: 144/90 Code: 8480-6 BMI: 34.8 Code: 28972-2 Heart Rate 1: 91 bpm Height: 5'7" SpO2: 98% Weight: 222 lbs 12/20/2018 Blood Pressure 1: 124/76 Code: 8480-6 BMI: 35.4 Code: 65040-2 Heart Rate 1: 79 bpm Height: 5'7" SpO2: 99% Weight: 226 lbs 12/16/2018 Blood Pressure 1: 160/90 Code: 8480-6 BMI: 35.4 Code: 87587-0 Heart Rate 1: 90 bpm Height: 5'7" SpO2: 95% Weight: 226 lbs 11/01/2018 Blood Pressure 1: 146/82 Code: 8480-6 BMI: 36.0 Code: 80245-3 Heart Rate 1: 87 bpm Height: 5'7" SpO2: 98% Weight: 230 lbs 09/24/2018 Blood Pressure 1: 140/82 Code: 8480-6 BMI: 36.0 Code: 04445-0 Heart Rate 1: 86 bpm Height: 5'7" SpO2: 98% Temperature: 37.1 (C ) / 98.7 (F) Weight: 230 lbs 08/16/2018 Blood Pressure 1: 148/82 Code: 8480-6 Blood Pressure 2: 157/92 Code: 8480-6 BMI: 35.9 Code: 16467-6 Heart Rate 1: 72 bpm Height: 5'7" SpO2: 96% Weight: 229 lbs 08/02/2018 Blood Pressure 1: 142/86 Code: 8480-6 BMI: 35.2 Code: 45526-1 Heart Rate 1: 101 bpm Height: 5'7" SpO2: 97% Weight: 225 lbs 05/31/2018 Blood Pressure 1: 134/82 Code: 8480-6 BMI: 35.4 Code: 99596-9 Heart Rate 1: 91 bpm Height: 5'7" SpO2: 96% Weight: 226 lbs 05/20/2018 Blood Pressure 1: 160/100 Code: 8480-6 BMI: 35.2 Code: 52632-7 Heart Rate 1: 89 bpm Height: 5'7" SpO2: 98% Weight: 225 lbs 05/10/2018 Blood Pressure 1: 124/70 Code: 8480-6 BMI: 35.1 Code: 91593-5 Heart Rate 1: 93 bpm Height: 5'7" SpO2: 99% Weight: 224 lbs 01/15/2018 Blood Pressure 1: 142/92 Code: 8480-6 BMI: 36.3 Code: 23341-2 Heart Rate 1: 77 bpm Height: 5'7" SpO2: 98% Weight: 232 lbs 12/15/2017 Blood Pressure 1: 156/98 Code: 8480-6 BMI: 36.2 Code: 33561-4 Heart Rate 1: 87 bpm Height: 5'7" [...] eye 01/15/2018 None vision change [place] 01/15/2018 None vision change Quality lo ss [...] vision 12/15/2017 None vision change [facility] [place] 12/15/2017 None vision change Onset and Resolution sudden in onset 12/15/2017 None vision change Onset of Symptom 3.5 weeks ago 12/15/2017 None vision change Limitation on Activities severely limits vision 12/15/2017 None vision change Triggers n o known associated factors 12/15/2017 None Advance Directives No Advance Directive data Encounters Encounter Performer Loca tion Codes Date ([id number]) 81456 EST. P ATIENT, LEVEL IV Diagnosis: Cervicalgia[ICD10: M54.2] Diagnosis: Pain in thoracic spine[ICD10: M54.6] Diagnosis: Spinal stenosis, thoracic region[ICD10: M48.04] Diagnosis: Spinal stenosis, cervical region[ICD10: M48.02] Diagnosis: Changes in skin texture[ICD10: R23.4] [facility] CPT-4: 15776 06/07/2019 [id number] EST. PATIENT, LEVEL IV Diagnosis: Cervicalgia[ICD10: M54.2] Diagnosis: Other fatigue[ICD10: R53.83] Diagnosis: Essential (primary) hypertension[ICD10: I10] Diagnosis: Major depressive disorder, recurrent, moderate[ICD10: F33.1] Sonia Gonzalez MD, [facility] CPT-4: 35124 05/05/2019 ([id number]) 06395 EST. P ATIENT, LEVEL III Diagnosis: Essential (primary) hypertension[ICD10: I10] Diagnosis: Major depressive disorder, recurrent, moderate[ICD10: F33.1] Diagnosis: Dysphagia, pharyngeal phase[ICD10: R13.13] Radha Gonzalez MD, [facility] CPT-4: 05923 04/20/2019 ([id number]) 38259 EST. 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 PATIENT, LEVEL III Diagnosis: Pain in right arm[ICD10: M79.601] Sonia Gonzalez MD, [facility] CPT-4: 67900 12/20/2018 ([id number]) 37212 EST. 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 PATIENT, LEVEL III Diagnosis: Acute upper respiratory infection, unspecified[ICD10: J06.9] Diagnosis: Other allergic rhinitis[ICD10: J30.89] Sonia Gonzalez MD, [facility] CPT-4: 31880 09/24/2018 ([id number]) 29389 EST. 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 P ATIENT, LEVEL IV Diagnosis: Essential (primary) hypertension[ICD10: I10] Diagnosis: Cervicalgia[ICD10: M54.2] Radha Gonzalez MD, [facility] CPT-4: 52591 05/31/2018 ([id number]) 00486 EST. 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 06/07/2019 Appointment: Radha Gonzalez WPtel: [address] [place] [address] (15 min) Moderate 06/07/2019 Patient Education: Patient [...] of over-medication. 05/05/2019 Appointment: Sonia Potter WPtel: [phone] [facility] (30 min) Complex 05/05/2019 Appointment: Radha Gonzalez WPtel: [phone] [facility] (15 min) Moderate 05/05/2019 Patient Education: Patient [...] 40mg daily. 04/20/2019 [phone] [facility] [place] (15 min) Moderate 04/20/2019 Patient Education: Patient [...] injections. 12/29/2018 Appointment: Radha Gonzalez WPtel: [phone] [facility] (15 min) Moderate 12/29/2018 Patient Education: Patient Medication Summary Completed 12/29/2018 Patient Education: .Cervicalgia Neck Pain Completed 12/29/2018 Patient Education: Patient Medication Summary Completed 12/21/2018 Care Plan: %Hba1C add to blood from 12/17 LOINC : 60780-8 Pending 12/21/2018 Visit Plan: Right arm pain - dayna deformity noted - will refer to ortho - The pt is to use prn antiinflammatories to manage acute pain. The patient is to call the office if the pain is worsening or does not improve. 12/20/2018 Appointment: Sonia Potter WPtel: [phone] [facility] (15 min) Moderate 12/20/2018 Patient [...] with testosterone. 12/16/2018 [phone] [facility] (15 min) Moderate 12/16/2018 Patient Education: Patient [...] as needed. 11/01/2018 Appointment: Radha Gonzalez WPtel: [phone] [facility] (15 min) Moderate 11/01/2018 Patient Education: Patient [...] allergy spray. 09/24/2018 Appointment: Sonia Potter WPtel: [facility] (15 min) Moderate 09/24/2018 Patient Education: Patient [...] Multiple symptoms - referral to [facility] - appt in September 30, 2018. 08/16/2018 Appointment: Radha Gonzalez WPtel: [phone] [facility] [place] (15 min) Moderate 08/16/2018 Patient Education: Patient [...] Multiple symptoms - referral to [facility] - rashes, hypogonadism, optic neuritis - all points to possible autoimmune syndrome. Spinal stenosis - of thoracic region - pt to talk to Dr. Dunaway about referral to a different specialist for his mid- back. Hypogonadism - continue with testosterone. Flu shot given today in clinic. 08/02/2018 Appointment: Radha Gonzalez WPtel: [phone] [facility] (15 min) Moderate 08/02/2018 Patient Education: Patient Medication Summary Completed 08/02/2018 Care Plan: Referral Order SNOMED-CT : 938743596 Pending 08/02/2018 Appointment: Injection 07/15/2018 Patient Education: [...] home. Cervical spine stenosis - [facility] I have also recommended a Referral to Dr. Dunaway. I have called and talked to Dr. Dunaway - he looked at the pt's imaging and agrees that getting the pt in to be seen soon would be a preferred option. 05/31/2018 Appointment: [phone] [facility] (15 min) Moderate 05/31/2018 Patient Education: Patient Medication Summary Completed 05/31/2018 Care Plan: Referral Order SNOMED-CT : 695044451 Pending 05/31/2018 Care Plan: Referral Order SNOMED-CT : 845182885 Pending 05/31/2018 Appointment: Injection 05/21/2018 Patient Education: Patient Medication Summary Completed 05/21/2018 Care Plan: Referral Order SNOMED-CT : 284551134 Pending 05/21/2018 Visit Plan: Cervical and thoracic s tenosis with spinal cord compression -refer for appt with Dr Marr -rx for hydrocodone for pain-start gabapentin at bedtime Soft tissue lesion-left chest-schedule CTfor further evaluation HTN-elevated today-hold adderall-monitor blood pressure 05/20/2018 Appointment: Hannah Simons WPtel: [facility] [place] [phone] [place] (15 min) Moderate 05/20/2018 Patient Education: [...] order this. 05/10/2018 Appointment: Sonia Potter WPtel: [facility] [place] (15 min) Moderate 05/10/2018 Patient Education: Patient Medication Summary Completed 05/10/2018 Visit Plan: Sleep apnea - rx for cp ap - actually autopap was recommended and pt given rx today. HTN - referral to dr. kapoor - pt needs stress testing. 01/15/2018 Appointment: Radha Gonzalez WPtel: [facility] [place] (15 min) Moderate 01/15/2018 Patient Education: Patient Medication Summary Completed 01/15/2018 Care Plan: Referral Order SNOMED-CT : 695238651 Pending 01/15/2018 Visit Plan: Well Adult - [...] one month. 12/15/2017 Appointment: Radha Gonzalez WPtel: [facility] [facility] 12/15/2017 Patient Education: Patient Medication Summary Completed 12/15/2017 Care Plan: CHEST X-RAY 2VW FRONTAL&LATL LOINC : 57367-2 Pending 12/15/2017 Appointment: Radha Gonzalez WPtel: [facility] (15 min) Moderate 12/08/2017 Appointment: (S) New Patient 08/13/2015 Visit Plan: steri strip placed on t humb of right hand - antibiotic shot given to patient and rx for keflex 500mg qid x 10 days given to the patient to fill prior to his trip to [place] 08/03/2015 Patient Education: Patient Medication Summary Completed 08/03/2015 Referral: External, Ordering Provider 08/03 Referral info faxed to [place]. Patient informed to be expecting a call from them with appt info Appointment Requested Referral: External, Ordering Provider Referral Appointment Requested Referral: External, Ordering Provider I called today; they will call him to schedule. Completed Referral: Armani Dunaway Referral Appointment Requested Referral: Mayte Kapoor Referral Appointment Requested Referral: [facility] [phone] [facility] [place] Referral Appointment Requested Referral: External, Ordering Provider [...] Multiple symptoms - referral to [facility] - rashes, hypogonadism, optic neuritis - [...] Multiple symptoms - referral to [facility] - appt in September 30, 2018. [...] to fill prior to his trip to [place] Prazosin - for night mcrae . Chronic [...] home. Cervical spine stenosis - referral to [facility]. I have also recommended a Referral to Dr. Dunaway. I have called and talked to Dr. Dunaway - he looked at the pt's imaging and agrees that getting the pt in to be seen soon would be a preferred option.
--- OUTSIDE RECORDS SUMMARY | 2020-04-28 00:16 | XMS REPORT | CCD ---
Author Author Nilton Gonzalez Organization [facility] Address [address] [place] [address] Phone Care Team Providers Care Shot Dropper Name Role Phone PP Unavailable CCM Unavailable Summary Purpose Interface Exchange Family history Brother Diagnosis Age At Onset Alcoholism Unknown Father Diagnosis Age At Onset Hypercholesterolemia Unknown Social History Social History Element Codes Description Effective Dates Employment Unknown Curre ntly unemployed 04/20/2019 Marital status Unknown S chanda 12/15/2017 Number of children Unknown 1 12/15/[address]: 915229202 Never smoker 12/15/[address]: 290634 Currently drinks alcohol <1 per week 12/15/2017 [...] Date Stop Date Sta tus Fill Instructions prazosin 1 mg capsule RxNorm: 643611 2 Capsule(s) PO QPM 06/29/2019 10/26/2019 Active diclofenac sodium 75 mg tablet,delayed release RxNorm: 405116 1 Tablet(s) PO BID 06/27/2019 07/26/2019 Ac tive acyclovir 400 mg tablet RxNorm: 767448 TAKE ONE TABLET BY MOUTH THREE TIMES A D AY NEEDED. TAKE AT ONSET OF SYMPTOMS OF COLD SORES FOR 5 DAYS. 06/27/2019 07/26/2019 Active diclofenac sodium 75 mg tablet,delayed release RxNorm: 930808 1 Tablet(s) PO BID 06/27/2019 06/26/2019 In active testosterone cypiona te 200 mg/mL intramuscular oil RxNorm: 0733862 1.25 Milliliter(s) IM 2 x month 06/24/2019 10/13/2019 Active Adderall 30 mg tablet RxNorm: 114700 2 Tablet(s) PO daily 06/16/2019 07/15/2019 Active hydrocodone 10 mg-ac etaminophen 325 mg tablet RxNorm: 955460 1 Tablet(s) PO TID 06/07/2019 No Stop Date Active prazosin 1 mg capsule RxNorm: 761836 2 Capsule(s) PO QPM 06/07/2019 06/28/2019 Inactive prazosin 1 mg capsule RxNorm: 932235 TAKE ONE CAPSULE BY MOUTH EVERY NIGHT AT BEDTIME 06/02/2019 06/06/2019 Inactive trazodone 100 mg tablet RxNorm: 902510 TAKE ONE TABLET BY MOUTH EVERY NIGHT AT BEDTIME 05/25/2019 11/20/2019 Active hydrocodone 10 mg-ac etaminophen 325 mg tablet RxNorm: 921828 1 Tablet(s) PO Q6 as needed 05/17/2019 06/06/2019 Inactive paroxetine 40 mg tablet RxNorm: 9404026 TAKE ONE TABLET BY MOUTH DAILY 05/16/2019 11/11/2019 Ac tive hydrocodone 5 mg-fanny taminophen 325 mg tablet RxNorm: 674003 1-2 Tablet(s) PO Q6 a s needed 05/16/2019 05/16/2019 Inactive prazosin 1 mg capsule RxNorm: 519645 1 Capsule(s) PO daily 05/05/2019 06/01/2019 Inactive paroxetine 40 mg tablet RxNorm: 2430126 1 Tablet(s) PO daily 04/20/2019 05/15/2019 Inactive Adderall 30 mg tablet RxNorm: 321962 2 Tablet(s) PO daily 04/19/2019 05/18/2019 Inactive alprazolam 1 mg tablet RxNorm: 384430 1 Tablet(s) PO TID as needed 04/13/2019 06/11/2019 Inactive hydrocodone 5 mg-fanny taminophen 325 mg tablet RxNorm: 423994 1-2 Tablet(s) PO Q6 a s needed 03/21/2019 05/15/2019 Inactive Adderall 30 mg tablet RxNorm: 456114 2 Tablet(s) PO daily 03/21/2019 04/14/2019 Inactive tramadol 50 mg tablet RxNorm: 662084 1-2 Tablet(s) PO Q6 as needed 03/14/2019 No Stop Date Active hydrocodone 5 mg-fanny taminophen 325 mg tablet RxNorm: 614575 1-2 Tablet(s) PO Q6 a s needed 02/23/2019 03/20/2019 Inactive Adderall 30 mg tablet RxNorm: 830687 2 Tablet(s) PO daily 02/23/2019 03/20/2019 Inactive Adderall 30 mg tablet RxNorm: 542590 2 Tablet(s) PO daily 01/24/2019 02/22/2019 Inactive ketoconazole 2 % top ical cream RxNorm: 177556 APPLY ONE GRAM TOPICA LLY TWICE A DAY 01/12/2019 01/26/2019 In active tramadol 50 mg tablet RxNorm: 242202 1-2 Tablet(s) PO Q6 as needed 01/11/2019 03/13/2019 In active atenolol 50 mg tablet RxNorm: 057858 1.5 Tablet(s) PO BID 12/29/2018 12/23/2019 Active hydrocodone 5 mg-fanny taminophen 325 mg tablet RxNorm: 384861 1-2 Tablet(s) PO Q6 a s needed 12/29/2018 02/22/2019 Inactive Adderall 30 mg tablet RxNorm: 467907 2 Tablet(s) PO daily 12/29/2018 01/23/2019 Inactive hydrocodone 5 mg-fanny taminophen 325 mg tablet RxNorm: 244120 1-2 Tablet(s) PO Q6 a s needed 12/29/2018 12/28/2018 Inactive testosterone cypiona te 200 mg/mL intramuscular oil RxNorm: 6314999 1.25 Milliliter(s) IM 12/29/2018 12/28/2018 Inactive hydrocodone 5 mg-fanny taminophen 325 mg tablet RxNorm: 117706 1 Tablet(s) PO TID LA N 12/28/2018 12/28/2018 In active testosterone cypiona te 200 mg/mL intramuscular oil RxNorm: 4743207 1.25 Milliliter(s) IM 2 x month 12/22/2018 04/12/2019 Inactive gabapentin 300 mg ca psule RxNorm: 020221 1 Capsule(s) PO QID 12/16/2018 12/10/2019 Active testosterone cypiona te 200 mg/mL intramuscular oil RxNorm: 3210567 Milliliter(s) IM 12/16/2018 12/16/2018 In active Voltaren 1 % topical gel RxNorm: 536440 2 Gram(s) APPLY TOPIC ALLY four TIMES A DAY 12/16/2018 01/20/2019 In active trazodone 100 mg tablet RxNorm: 199503 TAKE ONE TABLET BY MOUTH EVERY NIGHT AT BEDTIME 12/07/2018 05/24/2019 Inactive hydrocodone 5 mg-fanny taminophen 325 mg tablet RxNorm: 253711 1 Tablet(s) PO TID LA N 11/29/2018 12/27/2018 In active Adderall 30 mg tablet RxNorm: 506199 2 Tablet(s) PO daily 11/29/2018 12/28/2018 Inactive clindamycin 1 %-arthur oyl peroxide 5 % topical gel RxNorm: 598494 TOP APPLY TO AFFECTED AREA(S) ON SERNA TWO TIMES A DAY 11/17/2018 No Stop Date Active testosterone cypiona te 200 mg/mL intramuscular oil RxNorm: 3161638 1 Milliliter(s) IM 2 x month 11/17/2018 12/21/2018 Inactive Zorvolex 35 mg capsule RxNorm: 1622680 1 Capsule(s) PO TID as needed for pain 11/15/2018 05/13/2019 In active ketoconazole 2 % top ical cream RxNorm: 058866 APPLY ONE GRAM TOPICA LLY TWICE A DAY 11/15/2018 11/29/2018 In active testosterone cypiona te 200 mg/mL intramuscular oil RxNorm: 9203133 1 Milliliter(s) IM 11/15/2018 11/14/2018 Inactive hydrocodone 5 mg-fanny taminophen 325 mg tablet RxNorm: 841338 1 Tablet(s) PO TID LA N 11/02/2018 11/28/2018 In active Singulair 10 mg tablet RxNorm: 012573 1 Tablet(s) PO daily 11/01/2018 07/28/2019 Active testosterone cypiona te 200 mg/mL intramuscular oil RxNorm: 7204392 1 Milliliter(s) IM 2 x month 11/01/2018 11/16/2018 Inactive Adderall 30 mg tablet RxNorm: 780644 2 Tablet(s) PO daily 10/29/2018 11/27/2018 Inactive gabapentin 300 mg ca psule RxNorm: 904156 1 Capsule(s) PO BID m ay take TID 10/19/2018 12/15/2018 In active gabapentin 300 mg ca psule RxNorm: 116835 1 Capsule(s) PO BID m ay take TID 10/19/2018 10/18/2018 In active alprazolam 1 mg tablet RxNorm: 815002 1 Tablet(s) PO TID as needed 10/15/2018 04/19/2019 Inactive testosterone cypiona te 200 mg/mL intramuscular oil RxNorm: 695186 Milliliter(s) IM 09/28/2018 09/28/2018 In active pravastatin 40 mg ta blet RxNorm: 892050 TAKE ONE TABLET BY MO UT EVERY NIGHT AT BEDTIME 09/27/2018 09/21/2019 Active Tamiflu 75 mg capsule RxNorm: 663080 1 Capsule(s) PO BID 09/24/2018 09/28/2018 Inactive Adderall 30 mg tablet RxNorm: 186292 2 Tablet(s) PO daily 09/20/2018 10/19/2018 Inactive hydrocodone 5 mg-fanny taminophen 325 mg tablet RxNorm: 123931 1 Tablet(s) PO TID LA N 09/20/2018 11/01/2018 In active testosterone cypiona te 200 mg/mL intramuscular oil RxNorm: 488952 Milliliter(s) IM 09/16/2018 09/16/2018 In active testosterone cypiona te 200 mg/mL intramuscular oil RxNorm: 048408 1 Milliliter(s) IM 09/02/2018 09/02/2018 Inactive testosterone cypiona te 200 mg/mL intramuscular oil RxNorm: 311891 Milliliter(s) IM 08/19/2018 08/19/2018 In active Adderall 30 mg tablet RxNorm: 384155 2 Tablet(s) PO daily 08/18/2018 09/16/2018 Inactive tramadol 50 mg tablet RxNorm: 259088 1-2 Tablet(s) PO Q6 as needed 08/18/2018 01/12/2019 In active Dexilant 60 mg capsu le, delayed release RxNorm: 559134 1 Capsule(s) PO BID 08/17/2018 08/11/2019 Ac tive ketoconazole 2 % top ical cream RxNorm: 479760 1 Gram(s) TOP BID 08/17/2018 08/26/2018 Inactive Zorvolex 35 mg capsule RxNorm: 8209571 1 Capsule(s) PO TID as needed for pain 08/17/2018 08/16/2018 In active atenolol 50 mg tablet RxNorm: 446194 1 Tablet(s) PO BID 08/17/2018 12/28/2018 Inactive Zorvolex 35 mg capsule RxNorm: 0909097 1 Capsule(s) PO TID as needed for pain 08/17/2018 11/14/2018 In active ketoconazole 2 % top ical cream RxNorm: 654764 1 Gram(s) TOP BID 08/02/2018 08/11/2018 Inactive hydrocortisone 2.5 % topical cream RxNorm: 317629 1 Application TOP BID 07/21/2018 No Stop Date Active Adderall 30 mg tablet RxNorm: 400685 2 Tablet(s) PO daily 07/20/2018 08/17/2018 Inactive testosterone cypiona te 200 mg/mL intramuscular oil RxNorm: 703424 Milliliter(s) IM 07/15/2018 07/15/2018 In active alprazolam 1 mg tablet RxNorm: 395964 1 Tablet(s) PO TID as needed 07/12/2018 09/07/2018 Inactive hydrocodone 5 mg-fanny taminophen 325 mg tablet RxNorm: 130966 1 Tablet(s) PO TID LA N 06/30/2018 09/19/2018 In active pravastatin 40 mg ta blet RxNorm: 069655 1 Tablet(s) PO QHS 06/18/2018 09/15/2018 Inactive Adderall 30 mg tablet RxNorm: 889084 2 Tablet(s) PO daily 06/18/2018 07/17/2018 Inactive testosterone cypiona te 200 mg/mL intramuscular oil RxNorm: 637920 Milliliter(s) IM 06/17/2018 06/17/2018 In active Voltaren 1 % topical gel RxNorm: 102844 APPLY TOPICALLY TWO T IMES A DAY 06/16/2018 07/21/2018 In active Vitamin D2 50,000 un it capsule RxNorm: 2918091 1 Capsule(s) PO QW 05/21/2018 No Stop Date Active Adderall 30 mg tablet RxNorm: 630836 2 Tablet(s) PO daily 05/21/2018 06/17/2018 Inactive testosterone cypiona te 200 mg/mL intramuscular oil RxNorm: 118468 Milliliter(s) IM 05/21/2018 05/21/2018 In active testosterone cypiona te 200 mg/mL intramuscular oil RxNorm: 8175373 1 Milliliter(s) IM monthly 05/20/2018 09/16/2018 Inactive testosterone cypiona te 200 mg/mL intramuscular oil RxNorm: 293278 1 Milliliter(s) IM monthly 05/20/2018 05/19/2018 Inactive hydrocodone 5 mg-fanny taminophen 325 mg tablet RxNorm: 484682 1 Tablet(s) PO TID LA N 05/20/2018 06/29/2018 In active Vitamin D2 50,000 un it capsule RxNorm: 8287489 1 Capsule(s) PO QW 05/18/2018 05/20/2018 Inactive triamcinolone aceton destin 0.025 % topical cream RxNorm: 2048691 1 Application TOP BI D 05/13/2018 No Stop Date Active Dexilant 60 mg capsu le, delayed release RxNorm: 089338 1 Capsule(s) PO BID 05/13/2018 08/16/2018 In active Zorvolex 35 mg capsule RxNorm: 4987856 1 Capsule(s) PO TID as needed for pain 05/12/2018 08/09/2018 In active Voltaren 1 % topical gel RxNorm: 109053 1 Application TOP BID 05/12/2018 06/15/2018 Inactive ProAir HFA 90 mcg/ac tuation aerosol inhaler RxNorm: 004079 1 Puff(s) INH QID as needed 05/10/2018 No Stop Date Active baclofen 20 mg tablet RxNorm: 959423 1 Tablet(s) PO TID as needed muscle spas ms 05/10/2018 06/08/2018 In active Singulair 10 mg tablet RxNorm: 073900 1 Tablet(s) PO daily 05/10/2018 08/07/2018 Inactive acyclovir 400 mg tablet RxNorm: 189443 1 Tablet(s) PO TID as needed take at ons et of symptoms of cold sores x 5 days 05/10/2018 06/26/2019 Inactive atenolol 50 mg tablet RxNorm: 680853 1 Tablet(s) PO BID 05/10/2018 08/07/2018 Inactive triamcinolone aceton destin 0.025 % topical cream RxNorm: 3775564 1 Application TOP BI D 05/10/2018 05/12/2018 In active paroxetine 20 mg tablet RxNorm: 8959815 2 Tablet(s) PO QHS 05/10/2018 04/19/2019 Inactive tramadol 50 mg tablet RxNorm: 414382 1 Tablet(s) PO TID as needed 05/10/2018 05/19/2018 Inactive Dexilant 60 mg capsu le, delayed release RxNorm: 860912 1 Capsule(s) PO daily 05/10/2018 05/12/2018 In active alprazolam 1 mg tablet RxNorm: 669500 1 Tablet(s) PO TID as needed 05/10/2018 08/06/2018 Inactive trazodone 100 mg tablet RxNorm: 408843 1 Tablet(s) PO QHS 05/10/2018 11/05/2018 Inactive cyclobenzaprine 10 m g tablet RxNorm: 056507 1 Tablet(s) PO TID as needed muscle spasms 05/07/2018 07/12/2018 Inactive trazodone 100 mg tablet RxNorm: 687750 1 Tablet(s) PO QHS 05/07/2018 05/09/2018 Inactive Adderall 30 mg tablet RxNorm: 200414 2 Tablet(s) PO daily 04/19/2018 05/18/2018 Inactive alprazolam 1 mg tablet RxNorm: 743935 1 Tablet(s) PO BID 04/19/2018 05/09/2018 Inactive Adderall 30 mg tablet RxNorm: 200363 2 Tablet(s) PO daily 03/26/2018 04/18/2018 Inactive paroxetine 20 mg tablet RxNorm: 6496701 2 Tablet(s) PO QHS 03/15/2018 05/09/2018 Inactive Adderall 30 mg tablet RxNorm: 236759 2 Tablet(s) PO daily 02/25/2018 03/25/2018 Inactive cyclobenzaprine 10 m g tablet RxNorm: 375284 1 Tablet(s) PO TID as needed muscle spasms 02/22/2018 05/06/2018 Inactive tramadol 50 mg tablet RxNorm: 519323 1 Tablet(s) PO TID as needed 02/22/2018 03/07/2018 Inactive tramadol 50 mg tablet RxNorm: 851814 1 Tablet(s) PO TID as needed 02/22/2018 02/21/2018 Inactive trazodone 100 mg tablet RxNorm: 847267 1 Tablet(s) PO QHS 02/03/2018 05/03/2018 Inactive trazodone 100 mg tablet RxNorm: 593696 1 Tablet(s) PO QHS 02/03/2018 02/02/2018 Inactive Adderall 30 mg tablet RxNorm: 216577 2 Tablet(s) PO daily 01/27/2018 02/18/2018 Inactive acyclovir 400 mg tablet RxNorm: 546771 1 Tablet(s) PO TID as needed take at ons et of symptoms of cold sores x 5 days 01/15/2018 05/09/2018 Inactive Bactrim DS 800 mg-16 0 mg tablet RxNorm: 390263 1 Tablet(s) PO BID 01/11/2018 01/17/2018 Inactive Bactrim DS 800 mg-16 0 mg tablet RxNorm: 196996 1 Tablet(s) PO BID 01/11/2018 01/10/2018 Inactive Dexilant 60 mg capsu le, delayed release RxNorm: 527331 1 Capsule(s) PO daily 12/23/2017 05/09/2018 In active Dexilant 60 mg capsu le, delayed release RxNorm: 763512 1 Capsule(s) PO daily 12/23/2017 12/22/2017 In active atenolol 50 mg tablet RxNorm: 326878 1 Tablet(s) PO BID 12/15/2017 05/09/2018 Inactive alprazolam 1 mg tablet RxNorm: 794178 1-1.5 Tablet(s) PO daily 12/15/2017 04/18/2018 Inactive ceftriaxone 500 mg s olution for injection RxNorm: 7218951 Inj 08/03/2015 08/03/2015 Inactive paroxetine 20 mg tablet RxNorm: 9239388 2 Tablet(s) PO QHS 08/01/2015 10/29/2015 Inactive pravastatin 40 mg ta blet RxNorm: 058306 1/2 Tablet(s) PO QHS 08/01/2015 12/14/2017 Inactive Trazadone 100mg 100 mg RxNorm: 1 PO daily 08/01/2015 11/27/2015 Inactive Trazadone 100mg 100 mg RxNorm: 1 PO daily 08/01/2015 05/04/2018 Inactive atenolol 50 mg tablet RxNorm: 940356 1 Tablet(s) PO daily 08/01/2015 10/29/2015 Inactive Fish Oil 360 mg-1,20 0 mg capsule RxNorm: 893914 1 Capsule(s) PO BID No Start Date Active Zyrtec 10 mg tablet RxNorm: 3873894 1 Tablet(s) PO daily No Start Date Active pravastatin 40 mg ta blet RxNorm: 855289 1/2 Tablet(s) PO QHS No Start Date 07/31/2015 Inactive Benadryl Allergy 25 mg tablet RxNorm: 0363307 1 Tablet(s) PO daily No Start Date 07/19/2018 Inactive Adderall 30 mg tablet RxNorm: 276717 2 Tablet(s) PO daily No Start Date 01/26/2018 Inactive Aspirin Low Dose 81 mg tablet,delayed release RxNorm: 109106 1 Tablet(s) PO BID No Start Date 07/19/2018 Inactive Singulair 10 mg tablet RxNorm: 817850 1 Tablet(s) PO daily No Start Date 05/09/2018 Inactive cyclobenzaprine 10 m g tablet RxNorm: 430023 1 Tablet(s) PO TID as needed muscle spasms No Start Date 02/21/2018 Inactive Trazadone 100mg 100 mg RxNorm: 1 PO daily No Start Date 07/31/2015 Inactive ibuprofen 800 mg tablet RxNorm: 096842 1 Tablet(s) PO BID -TID No Start Date 06/06/2019 Inactive clindamycin 1 %-arthur oyl peroxide 5 % topical gel RxNorm: 505047 TOP APPLY TO AFFECTED AREA(S) ON SERNA TWO TIMES A DAY No Start Date 11/16/2018 Inactive hydrocortisone 2.5 % topical cream RxNorm: 011275 1 Application TOP BID No Start Date 07/20/2018 Inactive alprazolam 1 mg tablet RxNorm: 663238 2 Tablet(s) PO daily No Start Date 12/14/2017 Inactive tramadol 50 mg tablet RxNorm: 315835 1-2 Tablet(s) PO Q6 as needed No Start Date 08/17/2018 Inactive Vitamin D2 50,000 un it capsule RxNorm: 8240273 1 Capsule(s) PO QW No Start Date 05/17/2018 Inactive pantoprazole 40 mg t ablet,delayed release RxNorm: 975711 1 Tablet(s) PO BID No Start Date 12/22/2017 Inactive atenolol 50 mg tablet RxNorm: 889281 1 Tablet(s) PO daily No Start Date 07/31/2015 Inactive hydrocodone 10 mg-ac etaminophen 325 mg tablet RxNorm: 295946 1 Tablet(s) PO Q6 as needed No Start Date 05/16/2019 Inactive paroxetine 20 mg tablet RxNorm: 574045 2 Tablet(s) PO QHS No Start Date 07/31/2015 Inactive Medication Administered Medication Codes Instruc tions Start Date Status testosterone cypionate 200 mg/mL intramuscular oil RxNorm: 7869141 1.25Milliliter 12/29/2018 No longer Active testosterone cypionate 200 mg/mL intramuscular oil RxNorm: 4596399 Milliliter 12/16/2018 No longer Active testosterone cypionate 200 mg/mL intramuscular oil RxNorm: 5220374 1Milliliter 11/15/2018 No longer Active testosterone cypionate 200 mg/mL intramuscular oil RxNorm: 074216 Milliliter 09/28/2018 No longer Active testosterone cypionate 200 mg/mL intramuscular oil RxNorm: 412824 Milliliter 09/16/2018 No longer Active testosterone cypionate 200 mg/mL intramuscular oil RxNorm: 197195 1Milliliter 09/02/2018 No longer Active testosterone cypionate 200 mg/mL intramuscular oil RxNorm: 580995 Milliliter 08/19/2018 No longer Active testosterone cypionate 200 mg/mL intramuscular oil RxNorm: 133183 Milliliter 07/15/2018 No longer Active testosterone cypionate 200 mg/mL intramuscular oil RxNorm: 229208 Milliliter 06/17/2018 No longer Active testosterone cypionate 200 mg/mL intramuscular oil RxNorm: 937478 Milliliter 05/21/2018 No longer Active ceftriaxone 500 mg solution for injection RxNorm: 8078200 08/03/2015 No longer A ctive Immunizations Vaccine [...] Code Result Date Comp. Metabolic Panel (14) 88522 GLUCOSE 117 mg/dL 12/17/2018 Comp. Metabolic Panel (14) 14588 BUN 17 mg/dL 12/17/2018 Comp. Metabolic Panel (14) 09731 CREATININE 0.99 mg/dL 12/17/2018 Comp. Metabolic Panel (14) 09659 SODIUM 137 mmol/L 12/17/2018 Comp. Metabolic Panel (14) 15907 POTASSIUM 4.6 mmol/L 12/17/2018 Comp. Metabolic Panel (14) 83510 CHLORIDE 102 mmol/L 12/17/2018 Comp. Metabolic Panel (14) 50309 CARBON DIOXIDE 21 mmol/L 12/17/2018 Comp. Metabolic Panel (14) 15100 CALCIUM 9.4 mg/dL 12/17/2018 Comp. Metabolic Panel (14) 71290 TOTAL PROTEIN 7.5 g/dL 12/17/2018 Comp. Metabolic Panel (14) 15664 ALBUMIN 5.1 g/dL 12/17/2018 Comp. Metabolic Panel (14) 86958 ALKALINE PHOSPHATASE 79 U/L 12/17/2018 Comp. Metabolic Panel (14) 02488 TOTAL BILIRUBIN 0.5 mg/dL 12/17/2018 Comp. Metabolic Panel (14) 42331 SGOT (AST) 34 U/L 12/17/2018 Comp. Metabolic Panel (14) 26353 SGPT (ALT) 40 U/L 12/17/2018 Comp. Metabolic Panel (14) 89624 eGFR (mL/min/1.73m2) 115 12/17/2018 Comp. Metabolic Panel (14) 41835 INTERPRETATION 12/17/2018 Testosterone Serum 879990 TESTOSTERONE 96.8 ng/dL 12/17/2018 Cbc With Differential/Platelet 54867 WBC 5.61 thou/uL 9 Cbc With Differential/Platelet 76462 RBC 5.53 mil/uL 12/17/2018 Cbc With Differential/Platelet 30221 HEMOGLOBIN 15.4 g/dL 12/17/2018 Cbc With Differential/Platelet 07757 HEMATOCRIT 48.1 % 12/17/2018 Cbc With Differential/Platelet 16326 MCV 87.0 fL 12/17/2018 Cbc With Differential/Platelet 87157 MCH 27.8 pg 12/17/2018 Cbc With Differential/Platelet 72149 MCHC 32.0 g/dL 12/17/2018 Cbc With Differential/Platelet 16818 RDW-CV 13.9 % 12/17/2018 Cbc With Differential/Platelet 69219 PLATELET COUNT 294 thou/uL 12/17/2018 Cbc With Differential/Platelet 41730 NEUTROPHIL % 71.2 % 12/17/2018 Cbc With Differential/Platelet 85726 LYMPHOCYTE % 22.2 % 12/17/2018 Cbc With Differential/Platelet 71799 MONOCYTE % 5.4 % 12/17/2018 Cbc With Differential/Platelet 48804 EOS % 0.9 % 12/17/2018 Cbc With Differential/Platelet 27423 BASO % 0.4 % 12/17/2018 Cbc With Differential/Platelet 58020 NEUTROPHIL ABS # 3.99 thou/uL 12/17/2018 Cbc With Differential/Platelet 42311 LYMPH ABS # 1.25 thou/uL 12/17/2018 Cbc With Differential/Platelet 48185 MONOCYTE ABS # 0.30 thou/uL 12/17/2018 Cbc With Differential/Platelet 59664 EOS ABS # 0.05 thou/uL 9 Cbc With Differential/Platelet 76936 BASO ABS # 0.02 thou/uL 12/17/2018 Lipid Panel 92353 CHOLES TEROL 227 mg/dL 12/17/2018 Lipid Panel 63509 TRIGLY CERIDES 229 mg/dL 12/17/2018 Lipid Panel 60895 HDL 41 mg/dL 12/17/2018 Lipid Panel 54514 CHOLES TEROL/HDL 5.54 12/17/2018 Lipid Panel 29769 LDL (C ALCULATED) 140 mg/dL 12/17/2018 Lipid Panel 20770 LDL/HDL 3.41 12/17/2018 Lipid Panel 68457 INTERP RETATION 12/17/2018 Tsh 309554 TSH 1.190 uIU/mL 12/17/2018 Testosterone Serum 636356 TESTOSTERONE 44.1 ng/dL 08/18/2018 Hemoglobin 670676 WBC 7.62 thou/uL 08/17/2018 Hemoglobin 151036 RBC 5.23 mil/uL 08/17/2018 Hemoglobin 003854 HEMOGL OBIN 15.0 g/dL 08/17/2018 Hemoglobin 652949 HEMATO CRIT 45.0 % 08/17/2018 Hemoglobin 084420 MCV 86.0 fL 08/17/2018 Hemoglobin 273212 MCH 28.7 pg 08/17/2018 Hemoglobin 541892 MCHC 33.3 g/dL 08/17/2018 Hemoglobin 931804 RDW-CV 12.9 % 08/17/2018 Hemoglobin 207789 PLATEL ET COUNT 313 thou/uL 08/17/2018 Hematocrit 075901 WBC 7.62 thou/uL 08/17/2018 Hematocrit 755968 RBC 5.23 mil/uL 08/17/2018 Hematocrit 543342 HEMOGL OBIN 15.0 g/dL 08/17/2018 Hematocrit HEMATO CRIT 45.0 % 08/17/2018 Hematocrit MCV 86.0 fL 08/17/2018 Hematocrit MCH 28.7 pg 08/17/2018 Hematocrit MCHC 33.3 g/dL 08/17/2018 Hematocrit RDW-CV 12.9 % 08/17/2018 Hematocrit PLATEL ET COUNT 313 thou/uL 08/17/2018 Culture Mrsa 034706 MRSA CULTURE SEE NOTES 06/21/2018 Comp. Metabolic Panel (14) 06795 GLUCOSE 101 mg/dL 06/18/2018 Comp. Metabolic Panel (14) 94184 BUN 18 mg/dL 06/18/2018 Comp. Metabolic Panel (14) 88202 CREATININE 0.99 mg/dL 06/18/2018 Comp. Metabolic Panel (14) 92246 SODIUM 141 mmol/L 06/18/2018 Comp. Metabolic Panel (14) 19317 POTASSIUM 4.3 mmol/L 06/18/2018 Comp. Metabolic Panel (14) 78404 CHLORIDE 103 mmol/L 06/18/2018 Comp. Metabolic Panel (14) 44339 CARBON DIOXIDE 23 mmol/L 06/18/2018 Comp. Metabolic Panel (14) 63448 CALCIUM 9.8 mg/dL 06/18/2018 Comp. Metabolic Panel (14) 63740 TOTAL PROTEIN 7.1 g/dL 06/18/2018 Comp. Metabolic Panel (14) 83557 ALBUMIN 5.2 g/dL 06/18/2018 Comp. Metabolic Panel (14) 74223 ALKALINE PHOSPHATASE 65 U/L 06/18/2018 Comp. Metabolic Panel (14) 46531 TOTAL BILIRUBIN 0.6 mg/dL 06/18/2018 Comp. Metabolic Panel (14) 81593 SGOT (AST) 21 U/L 06/18/2018 Comp. Metabolic Panel (14) 69721 SGPT (ALT) 24 U/L 06/18/2018 Comp. Metabolic Panel (14) 59468 eGFR (mL/min/1.73m2) 115 06/18/2018 Comp. Metabolic Panel (14) 15187 INTERPRETATION 06/18/2018 Cbc With Differential/Platelet 65666 WBC 4.55 thou/uL 8 Cbc With Differential/Platelet 95170 RBC 5.13 mil/uL 06/18/2018 Cbc With Differential/Platelet 96913 HEMOGLOBIN 14.4 g/dL 06/18/2018 Cbc With Differential/Platelet 98380 HEMATOCRIT 44.1 % 06/18/2018 Cbc With Differential/Platelet 25954 MCV 85.9 fL 06/18/2018 Cbc With Differential/Platelet 55947 MCH 28.1 pg 06/18/2018 Cbc With Differential/Platelet 13129 MCHC 32.7 g/dL 06/18/2018 Cbc With Differential/Platelet 80729 RDW-CV 13.4 % 06/18/2018 Cbc With Differential/Platelet 09212 PLATELET COUNT 287 thou/uL 06/18/2018 Cbc With Differential/Platelet 66964 NEUTROPHIL % 53.9 % 06/18/2018 Cbc With Differential/Platelet 22056 LYMPHOCYTE % 36.1 % 06/18/2018 Cbc With Differential/Platelet 55730 MONOCYTE % 7.4 % 06/18/2018 Cbc With Differential/Platelet 44386 EOS % 1.9 % 06/18/2018 Cbc With Differential/Platelet 88598 BASO % 0.8 % 06/18/2018 Cbc With Differential/Platelet 62026 NEUTROPHIL ABS # 2.45 thou/uL 06/18/2018 Cbc With Differential/Platelet 90958 LYMPH ABS # 1.64 thou/uL 06/18/2018 Cbc With Differential/Platelet 79775 MONOCYTE ABS # 0.34 thou/uL 06/18/2018 Cbc With Differential/Platelet 48874 EOS ABS # 0.09 thou/uL 8 Cbc With Differential/Platelet 65386 BASO ABS # 0.04 thou/uL 06/18/2018 Review [...] General 1995 Eyes conjunctiva/eyelids Overall: eyelids normal 01/15/2018 None [...] Procedure Codes Date THER/PROPH/DIAG INJ SC/IM CPT-4: 93115 12/29/2018 THER/PROPH/DIAG INJ SC/IM CPT-4: 71332 12/16/2018 THER/PROPH/DIAG INJ SC/IM CPT-4: 89361 11/15/2018 THER/PROPH/DIAG INJ SC/IM CPT-4: 84573 09/28/2018 THER/PROPH/DIAG INJ SC/IM CPT-4: 55671 09/16/2018 THER/PROPH/DIAG INJ SC/IM CPT-4: 55859 09/02/2018 THER/PROPH/DIAG INJ SC/IM CPT-4: 56696 08/19/2018 IMMUNIZATION ADMIN CPT- 4: 86731 08/02/2018 FLU VAC NO PRSV 4 VA L 3 YRS+ CPT-4: 69508 08/02/2018 THER/PROPH/DIAG INJ SC/IM CPT-4: 46489 07/15/2018 THER/PROPH/DIAG INJ SC/IM CPT-4: 75414 06/17/2018 THER/PROPH/DIAG INJ SC/IM CPT-4: 79342 05/21/2018 THER/PROPH/DIAG INJ SC/IM CPT-4: 44514 08/03/2015 ROCEPHIN, PER 250 MG CPT-4: J0696 08/03/2015 Vital Signs Date Vital 06/07/2019 Blood Pressure 1: 160/88 Code: 8480-6 BMI: 36.0 Code: 50047-6 Heart Rate 1: 70 bpm Height: 5'7" SpO2: 94% Weight: 230 lbs 05/05/2019 Heigh t: Weight: 04/20/2019 Blood Pressure 1: 160/84 Code: 8480-6 BMI: 34.0 Code: 83070-1 Heart Rate 1: 82 bpm Height: 5'7" SpO2: 97% Weight: 216 lbs 13 o z 12/29/2018 Blood Pressure 1: 144/90 Code: 8480-6 BMI: 34.8 Code: 84037-8 Heart Rate 1: 91 bpm Height: 5'7" SpO2: 98% Weight: 222 lbs 12/20/2018 Blood Pressure 1: 124/76 Code: 8480-6 BMI: 35.4 Code: 61516-2 Heart Rate 1: 79 bpm Height: 5'7" SpO2: 99% Weight: 226 lbs 12/16/2018 Blood Pressure 1: 160/90 Code: 8480-6 BMI: 35.4 Code: 61538-3 Heart Rate 1: 90 bpm Height: 5'7" SpO2: 95% Weight: 226 lbs 11/01/2018 Blood Pressure 1: 146/82 Code: 8480-6 BMI: 36.0 Code: 72661-5 Heart Rate 1: 87 bpm Height: 5'7" SpO2: 98% Weight: 230 lbs 09/24/2018 Blood Pressure 1: 140/82 Code: 8480-6 BMI: 36.0 Code: 79028-3 Heart Rate 1: 86 bpm Height: 5'7" SpO2: 98% Temperature: 37.1 (C ) / 98.7 (F) Weight: 230 lbs 08/16/2018 Blood Pressure 1: 148/82 Code: 8480-6 Blood Pressure 2: 157/92 Code: 8480-6 BMI: 35.9 Code: 21414-7 Heart Rate 1: 72 bpm Height: 5'7" SpO2: 96% Weight: 229 lbs 08/02/2018 Blood Pressure 1: 142/86 Code: 8480-6 BMI: 35.2 Code: 77874-5 Heart Rate 1: 101 bpm Height: 5'7" SpO2: 97% Weight: 225 lbs 05/31/2018 Blood Pressure 1: 134/82 Code: 8480-6 BMI: 35.4 Code: 78450-3 Heart Rate 1: 91 bpm Height: 5'7" SpO2: 96% Weight: 226 lbs 05/20/2018 Blood Pressure 1: 160/100 Code: 8480-6 BMI: 35.2 Code: 21286-7 Heart Rate 1: 89 bpm Height: 5'7" SpO2: 98% Weight: 225 lbs 05/10/2018 Blood Pressure 1: 124/70 Code: 8480-6 BMI: 35.1 Code: 16299-8 Heart Rate 1: 93 bpm Height: 5'7" SpO2: 99% Weight: 224 lbs 01/15/2018 Blood Pressure 1: 142/92 Code: 8480-6 BMI: 36.3 Code: 05593-3 Heart Rate 1: 77 bpm Height: 5'7" SpO2: 98% Weight: 232 lbs 12/15/2017 Blood Pressure 1: 156/98 Code: 8480-6 BMI: 36.2 Code: 97405-4 Heart Rate 1: 87 bpm Height: 5'7" [...] eye 01/15/2018 None vision change Quality ac [place] 01/15/2018 None vision change Quality lo ss [...] vision 12/15/2017 None vision change Quality ac [place] 12/15/2017 None vision change Onset and Resolution sudden in onset 12/15/2017 None vision change Onset of Symptom 3.5 weeks ago 12/15/2017 None vision change Limitation on Activities severely limits vision 12/15/2017 None vision change Triggers n o known associated factors 12/15/2017 None Advance Directives No Advance Directive data Encounters Encounter Performer Loca tion Codes Date ([id number]) 95119 EST. P ATIENT, LEVEL IV Diagnosis: Cervicalgia[ICD10: M54.2] Diagnosis: Pain in thoracic spine[ICD10: M54.6] Diagnosis: Spinal stenosis, thoracic region[ICD10: M48.04] Diagnosis: Spinal stenosis, cervical region[ICD10: M48.02] Diagnosis: Changes in skin texture[ICD10: R23.4] [facility] CPT-4: 96636 06/07/2019 [id number] EST. PATIENT, LEVEL IV Diagnosis: Cervicalgia[ICD10: M54.2] Diagnosis: Other fatigue[ICD10: R53.83] Diagnosis: Essential (primary) hypertension[ICD10: I10] Diagnosis: Major depressive disorder, recurrent, moderate[ICD10: F33.1] Sonia Gonzalez MD, [facility] CPT-4: 01655 05/05/2019 ([id number]) 17646 EST. P ATIENT, LEVEL III Diagnosis: Essential (primary) hypertension[ICD10: I10] Diagnosis: Major depressive disorder, recurrent, moderate[ICD10: F33.1] Diagnosis: Dysphagia, pharyngeal phase[ICD10: R13.13] Radha Gonzalez MD, [facility] CPT-4: 64588 04/20/2019 ([id number]) 13777 EST. 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 PATIENT, LEVEL III Diagnosis: Pain in right arm[ICD10: M79.601] Sonia Gonzalez MD, [facility] CPT-4: 68769 12/20/2018 ([id number]) 39093 EST. 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 PATIENT, LEVEL III Diagnosis: Acute upper respiratory infection, unspecified[ICD10: J06.9] Diagnosis: Other allergic rhinitis[ICD10: J30.89] Sonia Gonzalez MD, [facility] CPT-4: 42375 09/24/2018 ([id number]) 18058 EST. 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 P ATIENT, LEVEL IV Diagnosis: Essential (primary) hypertension[ICD10: I10] Diagnosis: Cervicalgia[ICD10: M54.2] Radha Gonzalez MD, [facility] CPT-4: 26002 05/31/2018 ([id number]) 78719 EST. 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 06/07/2019 Appointment: Radha Gonzalez WPtel: [address] [place], [place] [phone] (15 min) Moderate 06/07/2019 Patient Education: Patient [...] of over-medication. 05/05/2019 Appointment: [phone] (30 min) Complex 05/05/2019 Appointment: Radha Gonzalez WPtel: [facility] (15 min) Moderate 05/05/2019 Patient Education: [...] 40mg daily. 04/20/2019 Appointment: Radha Gonzalez WPtel: [phone] [facility] [place] (15 min) Moderate 04/20/2019 Patient Education: [...] testosterone injections. 12/29/2018 Appointment: Radha Gonzalez WPtel: [phone] [facility] [place] (15 min) Moderate 12/29/2018 Patient Education: Patient Medication Summary Completed 12/29/2018 Patient Education: .Cervicalgia Neck Pain Completed 12/29/2018 Patient Education: Patient Medication Summary Completed 12/21/2018 Care Plan: %Hba1C add to blood from 12/17 LOINC : 63353-9 Pending 12/21/2018 Visit Plan: Right arm pain - dayna deformity noted - will refer to ortho - The pt is to use prn antiinflammatories to manage acute pain. The patient is to call the office if the pain is worsening or does not improve. 12/20/2018 Appointment: Sonia Potter WPtel: [facility] [place] (15 min) Moderate 12/20/2018 Patient Education: Patient [...] testosterone. 12/16/2018 Appointment: Radha Gonzalez WPtel: [phone] [facility] [place] (15 min) Moderate 12/16/2018 Patient Education: [...] needed. 11/01/2018 Appointment: Radha Gonzalez WPtel: [phone] [facility] (15 min) Moderate 11/01/2018 Patient Education: Patient [...] spray. 09/24/2018 Appointment: Sonia Potter WPtel: [phone] [facility] (15 min) Moderate 09/24/2018 Patient Education: [...] at home. Multiple symptoms - referral to [facility] - appt in September 30, 2018. 08/16/2018 Appointment: Radha Gonzalez WPtel: [phone] [facility] (15 min) Moderate 08/16/2018 Patient Education: Patient [...] at home. Multiple symptoms - referral to [facility] - rashes, hypogonadism, optic neuritis - all points to possible autoimmune syndrome. Spinal stenosis - of thoracic region - pt to talk to Dr. Dunaway about referral to a different specialist for his mid- back. Hypogonadism - continue with testosterone. Flu shot given today in clinic. 08/02/2018 Appointment: [phone] [place] (15 min) Moderate 08/02/2018 Patient Education: Patient Medication Summary Completed 08/02/2018 Care Plan: Referral Order SNOMED-CT : 461957037 Pending 08/02/2018 Appointment: Injection 07/15/2018 Patient Education: [...] home. Cervical spine stenosis - referral to [facility] physical therapy. I have also recommended a Referral to Dr. Dunaway. I have called and talked to Dr. Dunaway - he looked at the pt's imaging and agrees that getting the pt in to be seen soon would be a preferred option. 05/31/2018 Appointment: [phone] [place] (15 min) Moderate 05/31/2018 Patient Education: Patient Medication Summary Completed 05/31/2018 Care Plan: Referral Order SNOMED-CT : 321695452 Pending 05/31/2018 Care Plan: Referral Order SNOMED-CT : 092138336 Pending 05/31/2018 Appointment: Injection 05/21/2018 Patient Education: Patient Medication Summary Completed 05/21/2018 Care Plan: Referral Order SNOMED-CT : 412322303 Pending 05/21/2018 Visit Plan: Cervical and thoracic s tenosis with spinal cord compression -refer for appt with Dr Marr -rx for hydrocodone for pain-start gabapentin at bedtime Soft tissue lesion-left chest-schedule CTfor further evaluation HTN-elevated today-hold adderall-monitor blood pressure 05/20/2018 Appointment: Hannah Simons WPtel: [phone] [phone] [place] (15 min) Moderate 05/20/2018 Patient Education: [...] this. 05/10/2018 Appointment: Sonia Potter WPtel: [phone] [facility] [place] (15 min) Moderate 05/10/2018 Patient Education: Patient Medication Summary Completed 05/10/2018 Visit Plan: Sleep apnea - rx for cp ap - actually autopap was recommended and pt given rx today. HTN - referral to dr. kapoor - pt needs stress testing. 01/15/2018 Appointment: Radha Gonzalez WPtel: [phone] [facility] [place] (15 min) Moderate 01/15/2018 Patient Education: Patient Medication Summary Completed 01/15/2018 Care Plan: Referral Order SNOMED-CT : [id number] Pending 01/15/2018 Visit Plan: Well Adult - [...] one month. 12/15/2017 Appointment: Radha Gonzalez WPtel: [facility] New Patient 12/15/2017 Patient Education: Patient Medication Summary Completed 12/15/2017 Care Plan: CHEST X-RAY 2VW FRONTAL&LATL LOINC : 37075-7 Pending 12/15/2017 Appointment: Radha Gonzalez WPtel: [address] [place] [address] (15 min) Moderate 12/08/2017 Appointment: (S) New Patient 08/13/2015 Visit Plan: steri strip placed on t humb of right hand - antibiotic shot given to patient and rx for keflex 500mg qid x 10 days given to the patient to fill prior to his trip to [place] 08/03/2015 Patient Education: Patient Medication Summary Completed 08/03/2015 Referral: External, Ordering Provider 08/03 Referral info faxed to [place]. Patient informed to be expecting a call from them with appt info Appointment Requested Referral: External, Ordering Provider Referral Appointment Requested Referral: External, Ordering Provider I called today; they will call him to schedule. Completed Referral: Armani Dunaway Referral Appointment Requested Referral: Mayte Kapoor Referral Appointment Requested Referral: [facility]el[facility] [phone] [facility] [place] Referral Appointment Requested Referral: External, [...] is worsening or does not improve. . steri strip placed on thumb of right hand - antibiotic shot given to patient and rx for keflex 500mg qid x 10 days given to the patient to fill prior to his trip to [place] . Chronic neck and b ack pain [...] at home. Multiple symptoms - referral to [facility] - appt in September 30, 2018. . [...] at home. Multiple symptoms - referral to [facility] - rashes, hypogonadism, optic neuritis - all [...] qid. Hypogonadism - continue with testosterone. . Hypertension - wel l controlled - continue with current medications, continue with no added salt diet. Pt has been encouraged to exercise daily. The pt has been advised to call the office if there are any acute concerns about change in blood pressure readings at home. Cervical spine stenosis - referral to [facility] physical therapy. I have also recommended a Referral to Dr. Dunaway. I have called and talked to Dr. Dunaway - he looked at the pt's imaging and agrees that getting the pt in to be seen soon would be a preferred option. will refill meds for 90 days Will [...]
--- OUTSIDE RECORDS SUMMARY | 2020-04-28 00:17 | XMS REPORT | CCD ---
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 Name Role Phone PP Unavailable CCM Unavailable Summary Purpose Interface Exchange Family history Brother Diagnosis Age At Onset Alcoholism Unknown Father Diagnosis Age At Onset Hypercholesterolemia Unknown Social History Social History Element Codes Description Effective Dates Employment Unknown Curre ntly unemployed 04/20/2019 Marital status Unknown S chanda 12/15/2017 Number of children Unknown 1 12/15/[address]: 030655983 Never smoker 12/15/[address]: 250201 Currently drinks alcohol <1 per week 12/15/2017 [...] Fill Instructions prazosin 1 mg capsule RxNorm: 970710 2 Capsule(s) PO QPM 06/29/2019 10/26/2019 Active diclofenac sodium 75 mg tablet,delayed release RxNorm: 612927 1 Tablet(s) PO BID 06/27/2019 07/26/2019 Ac tive acyclovir 400 mg tablet RxNorm: 677416 TAKE ONE TABLET BY MOUTH THREE TIMES A D AY NEEDED. TAKE AT ONSET OF SYMPTOMS OF COLD SORES FOR 5 DAYS. 06/27/2019 07/26/2019 Active diclofenac sodium 75 mg tablet,delayed release RxNorm: 376457 1 Tablet(s) PO BID 06/27/2019 06/26/2019 In active testosterone cypiona te 200 mg/mL intramuscular oil RxNorm: 0263940 1.25 Milliliter(s) IM 2 x month 06/24/2019 10/13/2019 Active Adderall 30 mg tablet RxNorm: 989536 2 Tablet(s) PO daily 06/16/2019 07/15/2019 Active hydrocodone 10 mg-ac etaminophen 325 mg tablet RxNorm: 382392 1 Tablet(s) PO TID 06/07/2019 No Stop Date Active prazosin 1 mg capsule RxNorm: 904973 2 Capsule(s) PO QPM 06/07/2019 06/28/2019 Inactive prazosin 1 mg capsule RxNorm: 149090 TAKE ONE CAPSULE BY MOUTH EVERY NIGHT AT BEDTIME 06/02/2019 06/06/2019 Inactive trazodone 100 mg tablet RxNorm: 115596 TAKE ONE TABLET BY MOUTH EVERY NIGHT AT BEDTIME 05/25/2019 11/20/2019 Active hydrocodone 10 mg-ac etaminophen 325 mg tablet RxNorm: 679539 1 Tablet(s) PO Q6 as needed 05/17/2019 06/06/2019 Inactive paroxetine 40 mg tablet RxNorm: 7615710 TAKE ONE TABLET BY MOUTH DAILY 05/16/2019 11/11/2019 Ac tive hydrocodone 5 mg-fanny taminophen 325 mg tablet RxNorm: 839505 1-2 Tablet(s) PO Q6 a s needed 05/16/2019 05/16/2019 Inactive prazosin 1 mg capsule RxNorm: 893576 1 Capsule(s) PO daily 05/05/2019 06/01/2019 Inactive paroxetine 40 mg tablet RxNorm: 3067838 1 Tablet(s) PO daily 04/20/2019 05/15/2019 Inactive Adderall 30 mg tablet RxNorm: 106878 2 Tablet(s) PO daily 04/19/2019 05/18/2019 Inactive alprazolam 1 mg tablet RxNorm: 294035 1 Tablet(s) PO TID as needed 04/13/2019 06/11/2019 Inactive hydrocodone 5 mg-fanny taminophen 325 mg tablet RxNorm: 392820 1-2 Tablet(s) PO Q6 a s needed 03/21/2019 05/15/2019 Inactive Adderall 30 mg tablet RxNorm: 556725 2 Tablet(s) PO daily 03/21/2019 04/14/2019 Inactive tramadol 50 mg tablet RxNorm: 096070 1-2 Tablet(s) PO Q6 as needed 03/14/2019 No Stop Date Active hydrocodone 5 mg-fanny taminophen 325 mg tablet RxNorm: 616102 1-2 Tablet(s) PO Q6 a s needed 02/23/2019 03/20/2019 Inactive Adderall 30 mg tablet RxNorm: 916040 2 Tablet(s) PO daily 02/23/2019 03/20/2019 Inactive Adderall 30 mg tablet RxNorm: 858825 2 Tablet(s) PO daily 01/24/2019 02/22/2019 Inactive ketoconazole 2 % top ical cream RxNorm: 127488 APPLY ONE GRAM TOPICA LLY TWICE A DAY 01/12/2019 01/26/2019 In active tramadol 50 mg tablet RxNorm: 672584 1-2 Tablet(s) PO Q6 as needed 01/11/2019 03/13/2019 In active atenolol 50 mg tablet RxNorm: 408520 1.5 Tablet(s) PO BID 12/29/2018 12/23/2019 Active hydrocodone 5 mg-fanny taminophen 325 mg tablet RxNorm: 629037 1-2 Tablet(s) PO Q6 a s needed 12/29/2018 02/22/2019 Inactive Adderall 30 mg tablet RxNorm: 507663 2 Tablet(s) PO daily 12/29/2018 01/23/2019 Inactive hydrocodone 5 mg-fanny taminophen 325 mg tablet RxNorm: 464680 1-2 Tablet(s) PO Q6 a s needed 12/29/2018 12/28/2018 Inactive testosterone cypiona te 200 mg/mL intramuscular oil RxNorm: 8809714 1.25 Milliliter(s) IM 12/29/2018 12/28/2018 Inactive hydrocodone 5 mg-fanny taminophen 325 mg tablet RxNorm: 634462 1 Tablet(s) PO TID NJ N 12/28/2018 12/28/2018 In active testosterone cypiona te 200 mg/mL intramuscular oil RxNorm: 3586017 1.25 Milliliter(s) IM 2 x month 12/22/2018 04/12/2019 Inactive gabapentin 300 mg ca psule RxNorm: 700268 1 Capsule(s) PO QID 12/16/2018 12/10/2019 Active testosterone cypiona te 200 mg/mL intramuscular oil RxNorm: 6289501 Milliliter(s) IM 12/16/2018 12/16/2018 In active Voltaren 1 % topical gel RxNorm: 599295 2 Gram(s) APPLY TOPIC ALLY four TIMES A DAY 12/16/2018 01/20/2019 In active trazodone 100 mg tablet RxNorm: 942347 TAKE ONE TABLET BY MOUTH EVERY NIGHT AT BEDTIME 12/07/2018 05/24/2019 Inactive hydrocodone 5 mg-fanny taminophen 325 mg tablet RxNorm: 530241 1 Tablet(s) PO TID NJ N 11/29/2018 12/27/2018 In active Adderall 30 mg tablet RxNorm: 309526 2 Tablet(s) PO daily 11/29/2018 12/28/2018 Inactive clindamycin 1 %-arthur oyl peroxide 5 % topical gel RxNorm: 409303 TOP APPLY TO AFFECTED AREA(S) ON SERNA TWO TIMES A DAY 11/17/2018 No Stop Date Active testosterone cypiona te 200 mg/mL intramuscular oil RxNorm: 6433187 1 Milliliter(s) IM 2 x month 11/17/2018 12/21/2018 Inactive Zorvolex 35 mg capsule RxNorm: 7103140 1 Capsule(s) PO TID as needed for pain 11/15/2018 05/13/2019 In active ketoconazole 2 % top ical cream RxNorm: 949870 APPLY ONE GRAM TOPICA LLY TWICE A DAY 11/15/2018 11/29/2018 In active testosterone cypiona te 200 mg/mL intramuscular oil RxNorm: 1487624 1 Milliliter(s) IM 11/15/2018 11/14/2018 Inactive hydrocodone 5 mg-fanny taminophen 325 mg tablet RxNorm: 649325 1 Tablet(s) PO TID NJ N 11/02/2018 11/28/2018 In active Singulair 10 mg tablet RxNorm: 672001 1 Tablet(s) PO daily 11/01/2018 07/28/2019 Active testosterone cypiona te 200 mg/mL intramuscular oil RxNorm: 0943051 1 Milliliter(s) IM 2 x month 11/01/2018 11/16/2018 Inactive Adderall 30 mg tablet RxNorm: 760769 2 Tablet(s) PO daily 10/29/2018 11/27/2018 Inactive gabapentin 300 mg ca psule RxNorm: 579492 1 Capsule(s) PO BID m ay take TID 10/19/2018 12/15/2018 In active gabapentin 300 mg ca psule RxNorm: 554933 1 Capsule(s) PO BID m ay take TID 10/19/2018 10/18/2018 In active alprazolam 1 mg tablet RxNorm: 177868 1 Tablet(s) PO TID as needed 10/15/2018 04/19/2019 Inactive testosterone cypiona te 200 mg/mL intramuscular oil RxNorm: 992496 Milliliter(s) IM 09/28/2018 09/28/2018 In active pravastatin 40 mg ta blet RxNorm: 147039 TAKE ONE TABLET BY MO UT EVERY NIGHT AT BEDTIME 09/27/2018 09/21/2019 Active Tamiflu 75 mg capsule RxNorm: 428211 1 Capsule(s) PO BID 09/24/2018 09/28/2018 Inactive Adderall 30 mg tablet RxNorm: 577712 2 Tablet(s) PO daily 09/20/2018 10/19/2018 Inactive hydrocodone 5 mg-fanny taminophen 325 mg tablet RxNorm: 172218 1 Tablet(s) PO TID NJ N 09/20/2018 11/01/2018 In active testosterone cypiona te 200 mg/mL intramuscular oil RxNorm: 462509 Milliliter(s) IM 09/16/2018 09/16/2018 In active testosterone cypiona te 200 mg/mL intramuscular oil RxNorm: 794053 1 Milliliter(s) IM 09/02/2018 09/02/2018 Inactive testosterone cypiona te 200 mg/mL intramuscular oil RxNorm: 045549 Milliliter(s) IM 08/19/2018 08/19/2018 In active Adderall 30 mg tablet RxNorm: 109673 2 Tablet(s) PO daily 08/18/2018 09/16/2018 Inactive tramadol 50 mg tablet RxNorm: 250318 1-2 Tablet(s) PO Q6 as needed 08/18/2018 01/12/2019 In active Dexilant 60 mg capsu le, delayed release RxNorm: 648827 1 Capsule(s) PO BID 08/17/2018 08/11/2019 Ac tive ketoconazole 2 % top ical cream RxNorm: 402138 1 Gram(s) TOP BID 08/17/2018 08/26/2018 Inactive Zorvolex 35 mg capsule RxNorm: 7652144 1 Capsule(s) PO TID as needed for pain 08/17/2018 08/16/2018 In active atenolol 50 mg tablet RxNorm: 736914 1 Tablet(s) PO BID 08/17/2018 12/28/2018 Inactive Zorvolex 35 mg capsule RxNorm: 4175177 1 Capsule(s) PO TID as needed for pain 08/17/2018 11/14/2018 In active ketoconazole 2 % top ical cream RxNorm: 210877 1 Gram(s) TOP BID 08/02/2018 08/11/2018 Inactive hydrocortisone 2.5 % topical cream RxNorm: 808679 1 Application TOP BID 07/21/2018 No Stop Date Active Adderall 30 mg tablet RxNorm: 833559 2 Tablet(s) PO daily 07/20/2018 08/17/2018 Inactive testosterone cypiona te 200 mg/mL intramuscular oil RxNorm: 287756 Milliliter(s) IM 07/15/2018 07/15/2018 In active alprazolam 1 mg tablet RxNorm: 746851 1 Tablet(s) PO TID as needed 07/12/2018 09/07/2018 Inactive hydrocodone 5 mg-fanny taminophen 325 mg tablet RxNorm: 707242 1 Tablet(s) PO TID NJ N 06/30/2018 09/19/2018 In active pravastatin 40 mg ta blet RxNorm: 174231 1 Tablet(s) PO QHS 06/18/2018 09/15/2018 Inactive Adderall 30 mg tablet RxNorm: 020587 2 Tablet(s) PO daily 06/18/2018 07/17/2018 Inactive testosterone cypiona te 200 mg/mL intramuscular oil RxNorm: 600149 Milliliter(s) IM 06/17/2018 06/17/2018 In active Voltaren 1 % topical gel RxNorm: 118173 APPLY TOPICALLY TWO T IMES A DAY 06/16/2018 07/21/2018 In active Vitamin D2 50,000 un it capsule RxNorm: 9575857 1 Capsule(s) PO QW 05/21/2018 No Stop Date Active Adderall 30 mg tablet RxNorm: 718170 2 Tablet(s) PO daily 05/21/2018 06/17/2018 Inactive testosterone cypiona te 200 mg/mL intramuscular oil RxNorm: 296249 Milliliter(s) IM 05/21/2018 05/21/2018 In active testosterone cypiona te 200 mg/mL intramuscular oil RxNorm: 7951170 1 Milliliter(s) IM monthly 05/20/2018 09/16/2018 Inactive testosterone cypiona te 200 mg/mL intramuscular oil RxNorm: 930789 1 Milliliter(s) IM monthly 05/20/2018 05/19/2018 Inactive hydrocodone 5 mg-fanny taminophen 325 mg tablet RxNorm: 785799 1 Tablet(s) PO TID NJ N 05/20/2018 06/29/2018 In active Vitamin D2 50,000 un it capsule RxNorm: 0851347 1 Capsule(s) PO QW 05/18/2018 05/20/2018 Inactive triamcinolone aceton destin 0.025 % topical cream RxNorm: 9226038 1 Application TOP BI D 05/13/2018 No Stop Date Active Dexilant 60 mg capsu le, delayed release RxNorm: 548286 1 Capsule(s) PO BID 05/13/2018 08/16/2018 In active Zorvolex 35 mg capsule RxNorm: 9876514 1 Capsule(s) PO TID as needed for pain 05/12/2018 08/09/2018 In active Voltaren 1 % topical gel RxNorm: 246056 1 Application TOP BID 05/12/2018 06/15/2018 Inactive ProAir HFA 90 mcg/ac tuation aerosol inhaler RxNorm: 836420 1 Puff(s) INH QID as needed 05/10/2018 No Stop Date Active baclofen 20 mg tablet RxNorm: 376293 1 Tablet(s) PO TID as needed muscle spas ms 05/10/2018 06/08/2018 In active Singulair 10 mg tablet RxNorm: 923531 1 Tablet(s) PO daily 05/10/2018 08/07/2018 Inactive acyclovir 400 mg tablet RxNorm: 691871 1 Tablet(s) PO TID as needed take at ons et of symptoms of cold sores x 5 days 05/10/2018 06/26/2019 Inactive atenolol 50 mg tablet RxNorm: 670106 1 Tablet(s) PO BID 05/10/2018 08/07/2018 Inactive triamcinolone aceton destin 0.025 % topical cream RxNorm: 5786973 1 Application TOP BI D 05/10/2018 05/12/2018 In active paroxetine 20 mg tablet RxNorm: 6252831 2 Tablet(s) PO QHS 05/10/2018 04/19/2019 Inactive tramadol 50 mg tablet RxNorm: 694321 1 Tablet(s) PO TID as needed 05/10/2018 05/19/2018 Inactive Dexilant 60 mg capsu le, delayed release RxNorm: 648717 1 Capsule(s) PO daily 05/10/2018 05/12/2018 In active alprazolam 1 mg tablet RxNorm: 445312 1 Tablet(s) PO TID as needed 05/10/2018 08/06/2018 Inactive trazodone 100 mg tablet RxNorm: 886092 1 Tablet(s) PO QHS 05/10/2018 11/05/2018 Inactive cyclobenzaprine 10 m g tablet RxNorm: 699494 1 Tablet(s) PO TID as needed muscle spasms 05/07/2018 07/12/2018 Inactive trazodone 100 mg tablet RxNorm: 760267 1 Tablet(s) PO QHS 05/07/2018 05/09/2018 Inactive Adderall 30 mg tablet RxNorm: 179909 2 Tablet(s) PO daily 04/19/2018 05/18/2018 Inactive alprazolam 1 mg tablet RxNorm: 647722 1 Tablet(s) PO BID 04/19/2018 05/09/2018 Inactive Adderall 30 mg tablet RxNorm: 456650 2 Tablet(s) PO daily 03/26/2018 04/18/2018 Inactive paroxetine 20 mg tablet RxNorm: 9304075 2 Tablet(s) PO QHS 03/15/2018 05/09/2018 Inactive Adderall 30 mg tablet RxNorm: 317425 2 Tablet(s) PO daily 02/25/2018 03/25/2018 Inactive cyclobenzaprine 10 m g tablet RxNorm: 468473 1 Tablet(s) PO TID as needed muscle spasms 02/22/2018 05/06/2018 Inactive tramadol 50 mg tablet RxNorm: 767330 1 Tablet(s) PO TID as needed 02/22/2018 03/07/2018 Inactive tramadol 50 mg tablet RxNorm: 489715 1 Tablet(s) PO TID as needed 02/22/2018 02/21/2018 Inactive trazodone 100 mg tablet RxNorm: 296631 1 Tablet(s) PO QHS 02/03/2018 05/03/2018 Inactive trazodone 100 mg tablet RxNorm: 949700 1 Tablet(s) PO QHS 02/03/2018 02/02/2018 Inactive Adderall 30 mg tablet RxNorm: 123187 2 Tablet(s) PO daily 01/27/2018 02/18/2018 Inactive acyclovir 400 mg tablet RxNorm: 621859 1 Tablet(s) PO TID as needed take at ons et of symptoms of cold sores x 5 days 01/15/2018 05/09/2018 Inactive Bactrim DS 800 mg-16 0 mg tablet RxNorm: 586353 1 Tablet(s) PO BID 01/11/2018 01/17/2018 Inactive Bactrim DS 800 mg-16 0 mg tablet RxNorm: 181578 1 Tablet(s) PO BID 01/11/2018 01/10/2018 Inactive Dexilant 60 mg capsu le, delayed release RxNorm: 252085 1 Capsule(s) PO daily 12/23/2017 05/09/2018 In active Dexilant 60 mg capsu le, delayed release RxNorm: 723169 1 Capsule(s) PO daily 12/23/2017 12/22/2017 In active atenolol 50 mg tablet RxNorm: 222200 1 Tablet(s) PO BID 12/15/2017 05/09/2018 Inactive alprazolam 1 mg tablet RxNorm: 927667 1-1.5 Tablet(s) PO daily 12/15/2017 04/18/2018 Inactive ceftriaxone 500 mg s olution for injection RxNorm: 1290525 Inj 08/03/2015 08/03/2015 Inactive paroxetine 20 mg tablet RxNorm: 3763372 2 Tablet(s) PO QHS 08/01/2015 10/29/2015 Inactive pravastatin 40 mg ta blet RxNorm: 942279 1/2 Tablet(s) PO QHS 08/01/2015 12/14/2017 Inactive Trazadone 100mg 100 mg RxNorm: 1 PO daily 08/01/2015 11/27/2015 Inactive Trazadone 100mg 100 mg RxNorm: 1 PO daily 08/01/2015 05/04/2018 Inactive atenolol 50 mg tablet RxNorm: 005521 1 Tablet(s) PO daily 08/01/2015 10/29/2015 Inactive Fish Oil 360 mg-1,20 0 mg capsule RxNorm: 407160 1 Capsule(s) PO BID No Start Date Active Zyrtec 10 mg tablet RxNorm: 4858876 1 Tablet(s) PO daily No Start Date Active pravastatin 40 mg ta blet RxNorm: 610911 1/2 Tablet(s) PO QHS No Start Date 07/31/2015 Inactive Benadryl Allergy 25 mg tablet RxNorm: 8578259 1 Tablet(s) PO daily No Start Date 07/19/2018 Inactive Adderall 30 mg tablet RxNorm: 240669 2 Tablet(s) PO daily No Start Date 01/26/2018 Inactive Aspirin Low Dose 81 mg tablet,delayed release RxNorm: 321738 1 Tablet(s) PO BID No Start Date 07/19/2018 Inactive Singulair 10 mg tablet RxNorm: 923985 1 Tablet(s) PO daily No Start Date 05/09/2018 Inactive cyclobenzaprine 10 m g tablet RxNorm: 457177 1 Tablet(s) PO TID as needed muscle spasms No Start Date 02/21/2018 Inactive Trazadone 100mg 100 mg RxNorm: 1 PO daily No Start Date 07/31/2015 Inactive ibuprofen 800 mg tablet RxNorm: 967670 1 Tablet(s) PO BID -TID No Start Date 06/06/2019 Inactive clindamycin 1 %-arthur oyl peroxide 5 % topical gel RxNorm: 787103 TOP APPLY TO AFFECTED AREA(S) ON SERNA TWO TIMES A DAY No Start Date 11/16/2018 Inactive hydrocortisone 2.5 % topical cream RxNorm: 721174 1 Application TOP BID No Start Date 07/20/2018 Inactive alprazolam 1 mg tablet RxNorm: 673735 2 Tablet(s) PO daily No Start Date 12/14/2017 Inactive tramadol 50 mg tablet RxNorm: 446042 1-2 Tablet(s) PO Q6 as needed No Start Date 08/17/2018 Inactive Vitamin D2 50,000 un it capsule RxNorm: 2590251 1 Capsule(s) PO QW No Start Date 05/17/2018 Inactive pantoprazole 40 mg t ablet,delayed release RxNorm: 944814 1 Tablet(s) PO BID No Start Date 12/22/2017 Inactive atenolol 50 mg tablet RxNorm: 531409 1 Tablet(s) PO daily No Start Date 07/31/2015 Inactive hydrocodone 10 mg-ac etaminophen 325 mg tablet RxNorm: 238042 1 Tablet(s) PO Q6 as needed No Start Date 05/16/2019 Inactive paroxetine 20 mg tablet RxNorm: 034815 2 Tablet(s) PO QHS No Start Date 07/31/2015 Inactive Medication Administered Medication Codes Instruc tions Start Date Status testosterone cypionate 200 mg/mL intramuscular oil RxNorm: 7415595 1.25Milliliter 12/29/2018 No longer Active testosterone cypionate 200 mg/mL intramuscular oil RxNorm: 1395309 Milliliter 12/16/2018 No longer Active testosterone cypionate 200 mg/mL intramuscular oil RxNorm: 9914738 1Milliliter 11/15/2018 No longer Active testosterone cypionate 200 mg/mL intramuscular oil RxNorm: 786997 Milliliter 09/28/2018 No longer Active testosterone cypionate 200 mg/mL intramuscular oil RxNorm: 745342 Milliliter 09/16/2018 No longer Active testosterone cypionate 200 mg/mL intramuscular oil RxNorm: 386611 1Milliliter 09/02/2018 No longer Active testosterone cypionate 200 mg/mL intramuscular oil RxNorm: 278874 Milliliter 08/19/2018 No longer Active testosterone cypionate 200 mg/mL intramuscular oil RxNorm: 307964 Milliliter 07/15/2018 No longer Active testosterone cypionate 200 mg/mL intramuscular oil RxNorm: 148077 Milliliter 06/17/2018 No longer Active testosterone cypionate 200 mg/mL intramuscular oil RxNorm: 042745 Milliliter 05/21/2018 No longer Active ceftriaxone 500 mg solution for injection RxNorm: 2859199 08/03/2015 No longer A ctive Immunizations Vaccine [...] Code Result Date Comp. Metabolic Panel (14) 98516 GLUCOSE 117 mg/dL 12/17/2018 Comp. Metabolic Panel (14) 17900 BUN 17 mg/dL 12/17/2018 Comp. Metabolic Panel (14) 36245 CREATININE 0.99 mg/dL 12/17/2018 Comp. Metabolic Panel (14) 42643 SODIUM 137 mmol/L 12/17/2018 Comp. Metabolic Panel (14) 11096 POTASSIUM 4.6 mmol/L 12/17/2018 Comp. Metabolic Panel (14) 28426 CHLORIDE 102 mmol/L 12/17/2018 Comp. Metabolic Panel (14) 86581 CARBON DIOXIDE 21 mmol/L 12/17/2018 Comp. Metabolic Panel (14) 51538 CALCIUM 9.4 mg/dL 12/17/2018 Comp. Metabolic Panel (14) 46943 TOTAL PROTEIN 7.5 g/dL 12/17/2018 Comp. Metabolic Panel (14) 18082 ALBUMIN 5.1 g/dL 12/17/2018 Comp. Metabolic Panel (14) 05633 ALKALINE PHOSPHATASE 79 U/L 12/17/2018 Comp. Metabolic Panel (14) 72306 TOTAL BILIRUBIN 0.5 mg/dL 12/17/2018 Comp. Metabolic Panel (14) 74083 SGOT (AST) 34 U/L 12/17/2018 Comp. Metabolic Panel (14) 31941 SGPT (ALT) 40 U/L 12/17/2018 Comp. Metabolic Panel (14) 93220 eGFR (mL/min/1.73m2) 115 12/17/2018 Comp. Metabolic Panel (14) 82402 INTERPRETATION 12/17/2018 Testosterone Serum 707998 TESTOSTERONE 96.8 ng/dL 12/17/2018 Cbc With Differential/Platelet 88051 WBC 5.61 thou/uL 9 Cbc With Differential/Platelet 49050 RBC 5.53 mil/uL 12/17/2018 Cbc With Differential/Platelet 53079 HEMOGLOBIN 15.4 g/dL 12/17/2018 Cbc With Differential/Platelet 33517 HEMATOCRIT 48.1 % 12/17/2018 Cbc With Differential/Platelet 97566 MCV 87.0 fL 12/17/2018 Cbc With Differential/Platelet 62484 MCH 27.8 pg 12/17/2018 Cbc With Differential/Platelet 80062 MCHC 32.0 g/dL 12/17/2018 Cbc With Differential/Platelet 77570 RDW-CV 13.9 % 12/17/2018 Cbc With Differential/Platelet 23344 PLATELET COUNT 294 thou/uL 12/17/2018 Cbc With Differential/Platelet 49989 NEUTROPHIL % 71.2 % 12/17/2018 Cbc With Differential/Platelet 91111 LYMPHOCYTE % 22.2 % 12/17/2018 Cbc With Differential/Platelet 96836 MONOCYTE % 5.4 % 12/17/2018 Cbc With Differential/Platelet 52859 EOS % 0.9 % 12/17/2018 Cbc With Differential/Platelet 20290 BASO % 0.4 % 12/17/2018 Cbc With Differential/Platelet 38462 NEUTROPHIL ABS # 3.99 thou/uL 12/17/2018 Cbc With Differential/Platelet 54059 LYMPH ABS # 1.25 thou/uL 12/17/2018 Cbc With Differential/Platelet 36459 MONOCYTE ABS # 0.30 thou/uL 12/17/2018 Cbc With Differential/Platelet 63353 EOS ABS # 0.05 thou/uL 9 Cbc With Differential/Platelet 62616 BASO ABS # 0.02 thou/uL 12/17/2018 Lipid Panel 10190 CHOLES TEROL 227 mg/dL 12/17/2018 Lipid Panel 01721 TRIGLY CERIDES 229 mg/dL 12/17/2018 Lipid Panel 42310 HDL 41 mg/dL 12/17/2018 Lipid Panel 39881 CHOLES TEROL/HDL 5.54 12/17/2018 Lipid Panel 37056 LDL (C ALCULATED) 140 mg/dL 12/17/2018 Lipid Panel 02992 LDL/HDL 3.41 12/17/2018 Lipid Panel 96842 INTERP RETATION 12/17/2018 Tsh 607106 TSH 1.190 uIU/mL 12/17/2018 Testosterone Serum 103920 TESTOSTERONE 44.1 ng/dL 08/18/2018 Hemoglobin 603927 WBC 7.62 thou/uL 08/17/2018 Hemoglobin 145034 RBC 5.23 mil/uL 08/17/2018 Hemoglobin 181294 HEMOGL OBIN 15.0 g/dL 08/17/2018 Hemoglobin 942607 HEMATO CRIT 45.0 % 08/17/2018 Hemoglobin 821881 MCV 86.0 fL 08/17/2018 Hemoglobin 022717 MCH 28.7 pg 08/17/2018 Hemoglobin 870540 MCHC 33.3 g/dL 08/17/2018 Hemoglobin 941444 RDW-CV 12.9 % 08/17/2018 Hemoglobin 798574 PLATEL ET COUNT 313 thou/uL 08/17/2018 Hematocrit 427221 WBC 7.62 thou/uL 08/17/2018 Hematocrit 093109 RBC 5.23 mil/uL 08/17/2018 Hematocrit 504767 HEMOGL OBIN 15.0 g/dL 08/17/2018 Hematocrit HEMATO CRIT 45.0 % 08/17/2018 Hematocrit MCV 86.0 fL 08/17/2018 Hematocrit MCH 28.7 pg 08/17/2018 Hematocrit MCHC 33.3 g/dL 08/17/2018 Hematocrit RDW-CV 12.9 % 08/17/2018 Hematocrit PLATEL ET COUNT 313 thou/uL 08/17/2018 Culture Mrsa 479498 MRSA CULTURE SEE NOTES 06/21/2018 Comp. Metabolic Panel (14) 54455 GLUCOSE 101 mg/dL 06/18/2018 Comp. Metabolic Panel (14) 31360 BUN 18 mg/dL 06/18/2018 Comp. Metabolic Panel (14) 47243 CREATININE 0.99 mg/dL 06/18/2018 Comp. Metabolic Panel (14) 75869 SODIUM 141 mmol/L 06/18/2018 Comp. Metabolic Panel (14) 26032 POTASSIUM 4.3 mmol/L 06/18/2018 Comp. Metabolic Panel (14) 35763 CHLORIDE 103 mmol/L 06/18/2018 Comp. Metabolic Panel (14) 98331 CARBON DIOXIDE 23 mmol/L 06/18/2018 Comp. Metabolic Panel (14) 27254 CALCIUM 9.8 mg/dL 06/18/2018 Comp. Metabolic Panel (14) 22988 TOTAL PROTEIN 7.1 g/dL 06/18/2018 Comp. Metabolic Panel (14) 74705 ALBUMIN 5.2 g/dL 06/18/2018 Comp. Metabolic Panel (14) 67578 ALKALINE PHOSPHATASE 65 U/L 06/18/2018 Comp. Metabolic Panel (14) 91319 TOTAL BILIRUBIN 0.6 mg/dL 06/18/2018 Comp. Metabolic Panel (14) 39349 SGOT (AST) 21 U/L 06/18/2018 Comp. Metabolic Panel (14) 96230 SGPT (ALT) 24 U/L 06/18/2018 Comp. Metabolic Panel (14) 43829 eGFR (mL/min/1.73m2) 115 06/18/2018 Comp. Metabolic Panel (14) 06772 INTERPRETATION 06/18/2018 Cbc With Differential/Platelet 66390 WBC 4.55 thou/uL 8 Cbc With Differential/Platelet 79262 RBC 5.13 mil/uL 06/18/2018 Cbc With Differential/Platelet 04741 HEMOGLOBIN 14.4 g/dL 06/18/2018 Cbc With Differential/Platelet 76466 HEMATOCRIT 44.1 % 06/18/2018 Cbc With Differential/Platelet 17308 MCV 85.9 fL 06/18/2018 Cbc With Differential/Platelet 11483 MCH 28.1 pg 06/18/2018 Cbc With Differential/Platelet 69886 MCHC 32.7 g/dL 06/18/2018 Cbc With Differential/Platelet 44364 RDW-CV 13.4 % 06/18/2018 Cbc With Differential/Platelet 04715 PLATELET COUNT 287 thou/uL 06/18/2018 Cbc With Differential/Platelet 04548 NEUTROPHIL % 53.9 % 06/18/2018 Cbc With Differential/Platelet 37496 LYMPHOCYTE % 36.1 % 06/18/2018 Cbc With Differential/Platelet 60481 MONOCYTE % 7.4 % 06/18/2018 Cbc With Differential/Platelet 80798 EOS % 1.9 % 06/18/2018 Cbc With Differential/Platelet 25330 BASO % 0.8 % 06/18/2018 Cbc With Differential/Platelet 60720 NEUTROPHIL ABS # 2.45 thou/uL 06/18/2018 Cbc With Differential/Platelet 68589 LYMPH ABS # 1.64 thou/uL 06/18/2018 Cbc With Differential/Platelet 20569 MONOCYTE ABS # 0.34 thou/uL 06/18/2018 Cbc With Differential/Platelet 69683 EOS ABS # 0.09 thou/uL 8 Cbc With Differential/Platelet 65670 BASO ABS # 0.04 thou/uL 06/18/2018 Review [...] Procedure Codes Date THER/PROPH/DIAG INJ SC/IM CPT-4: 78960 12/29/2018 THER/PROPH/DIAG INJ SC/IM CPT-4: 68776 12/16/2018 THER/PROPH/DIAG INJ SC/IM CPT-4: 25130 11/15/2018 THER/PROPH/DIAG INJ SC/IM CPT-4: 26722 09/28/2018 THER/PROPH/DIAG INJ SC/IM CPT-4: 71032 09/16/2018 THER/PROPH/DIAG INJ SC/IM CPT-4: 52425 09/02/2018 THER/PROPH/DIAG INJ SC/IM CPT-4: 02166 08/19/2018 IMMUNIZATION ADMIN CPT- 4: 16942 08/02/2018 FLU VAC NO PRSV 4 VA L 3 YRS+ CPT-4: 27379 08/02/2018 THER/PROPH/DIAG INJ SC/IM CPT-4: 85534 07/15/2018 THER/PROPH/DIAG INJ SC/IM CPT-4: 23482 06/17/2018 THER/PROPH/DIAG INJ SC/IM CPT-4: 86023 05/21/2018 THER/PROPH/DIAG INJ SC/IM CPT-4: 76150 08/03/2015 ROCEPHIN, PER 250 MG CPT-4: J0696 08/03/2015 Vital Signs Date Vital 06/07/2019 Blood Pressure 1: 160/88 Code: 8480-6 BMI: 36.0 Code: 05401-2 Heart Rate 1: 70 bpm Height: 5'7" SpO2: 94% Weight: 230 lbs 05/05/2019 Heigh t: Weight: 04/20/2019 Blood Pressure 1: 160/84 Code: 8480-6 BMI: 34.0 Code: 06580-8 Heart Rate 1: 82 bpm Height: 5'7" SpO2: 97% Weight: 216 lbs 13 o z 12/29/2018 Blood Pressure 1: 144/90 Code: 8480-6 BMI: 34.8 Code: 78450-8 Heart Rate 1: 91 bpm Height: 5'7" SpO2: 98% Weight: 222 lbs 12/20/2018 Blood Pressure 1: 124/76 Code: 8480-6 BMI: 35.4 Code: 26798-4 Heart Rate 1: 79 bpm Height: 5'7" SpO2: 99% Weight: 226 lbs 12/16/2018 Blood Pressure 1: 160/90 Code: 8480-6 BMI: 35.4 Code: 32476-4 Heart Rate 1: 90 bpm Height: 5'7" SpO2: 95% Weight: 226 lbs 11/01/2018 Blood Pressure 1: 146/82 Code: 8480-6 BMI: 36.0 Code: 07853-0 Heart Rate 1: 87 bpm Height: 5'7" SpO2: 98% Weight: 230 lbs 09/24/2018 Blood Pressure 1: 140/82 Code: 8480-6 BMI: 36.0 Code: 63569-3 Heart Rate 1: 86 bpm Height: 5'7" SpO2: 98% Temperature: 37.1 (C ) / 98.7 (F) Weight: 230 lbs 08/16/2018 Blood Pressure 1: 148/82 Code: 8480-6 Blood Pressure 2: 157/92 Code: 8480-6 BMI: 35.9 Code: 52205-5 Heart Rate 1: 72 bpm Height: 5'7" SpO2: 96% Weight: 229 lbs 08/02/2018 Blood Pressure 1: 142/86 Code: 8480-6 BMI: 35.2 Code: 59944-1 Heart Rate 1: 101 bpm Height: 5'7" SpO2: 97% Weight: 225 lbs 05/31/2018 Blood Pressure 1: 134/82 Code: 8480-6 BMI: 35.4 Code: 46260-0 Heart Rate 1: 91 bpm Height: 5'7" SpO2: 96% Weight: 226 lbs 05/20/2018 Blood Pressure 1: 160/100 Code: 8480-6 BMI: 35.2 Code: 80600-5 Heart Rate 1: 89 bpm Height: 5'7" SpO2: 98% Weight: 225 lbs 05/10/2018 Blood Pressure 1: 124/70 Code: 8480-6 BMI: 35.1 Code: 48891-7 Heart Rate 1: 93 bpm Height: 5'7" SpO2: 99% Weight: 224 lbs 01/15/2018 Blood Pressure 1: 142/92 Code: 8480-6 BMI: 36.3 Code: 47246-0 Heart Rate 1: 77 bpm Height: 5'7" SpO2: 98% Weight: 232 lbs 12/15/2017 Blood Pressure 1: 156/98 Code: 8480-6 BMI: 36.2 Code: 81933-3 Heart Rate 1: 87 bpm Height: 5'7" [...] eye 01/15/2018 None vision change Quality ac [place] 01/15/2018 None vision change Quality lo ss [...] vision 12/15/2017 None vision change Quality ac [place] 12/15/2017 None vision change Onset and Resolution sudden in onset 12/15/2017 None vision change Onset of Symptom 3.5 weeks ago 12/15/2017 None vision change Limitation on Activities severely limits vision 12/15/2017 None vision change Triggers n o known associated factors 12/15/2017 None Advance Directives No Advance Directive data Encounters Encounter Performer Loca tion Codes Date ([id number]) [id number] EST. P ATIENT, LEVEL IV Diagnosis: Cervicalgia[ICD10: M54.2] Diagnosis: Pain in thoracic spine[ICD10: M54.6] Diagnosis: Spinal stenosis, thoracic region[ICD10: M48.04] Diagnosis: Spinal stenosis, cervical region[ICD10: M48.02] Diagnosis: Changes in skin texture[ICD10: R23.4] [facility] CPT-4: 68488 06/07/2019 56634 EST. PATIENT, LEVEL IV Diagnosis: Cervicalgia[ICD10: M54.2] Diagnosis: Other fatigue[ICD10: R53.83] Diagnosis: Essential (primary) hypertension[ICD10: I10] Diagnosis: Major depressive disorder, recurrent, moderate[ICD10: F33.1] Sonia Gonzalez MD, [facility] CPT-4: 37359 05/05/2019 ([id number]) 48359 EST. P ATIENT, LEVEL III Diagnosis: Essential (primary) hypertension[ICD10: I10] Diagnosis: Major depressive disorder, recurrent, moderate[ICD10: F33.1] Diagnosis: Dysphagia, pharyngeal phase[ICD10: R13.13] Radha Gonzalez MD, [facility] CPT-4: 18810 04/20/2019 ([id number]) 68646 EST. 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 PATIENT, LEVEL III Diagnosis: Pain in right arm[ICD10: M79.601] Sonia Gonzalez MD, [facility] CPT-4: 51357 12/20/2018 ([id number]) 26188 EST. 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 PATIENT, LEVEL III Diagnosis: Acute upper respiratory infection, unspecified[ICD10: J06.9] Diagnosis: Other allergic rhinitis[ICD10: J30.89] Sonia Gonzalez MD, [facility] CPT-4: 44969 09/24/2018 ([id number]) 05902 EST. 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 P ATIENT, LEVEL IV Diagnosis: Essential (primary) hypertension[ICD10: I10] Diagnosis: Testicular hypofunction[ICD10: E29.1] Diagnosis: Spinal stenosis, thoracic region[ICD10: M48.04] Diagnosis: Rash and other nonspecific skin eruption[ICD10: R21] Diagnosis: VACCIN FOR INFLUENZA[ICD10: Z23] Radha Gonzalez MD, [facility] CPT-4: 69710 08/02/2018 ([id number]) 08685 EST. P ATIENT, LEVEL IV Diagnosis: Essential (primary) hypertension[ICD10: I10] Diagnosis: Cervicalgia[ICD10: M54.2] Radha Gonzalez MD, [facility] CPT-4: 46464 05/31/2018 ([id number]) 07380 EST. 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 06/07/2019 Appointment: Radha Gonzalez WPtel: [address] [place], [place] [phone] (15 min) Moderate 06/07/2019 Patient Education: Patient [...] of over-medication. 05/05/2019 [facility]ment[phone] [facility] (30 min) Complex 05/05/2019 Appointment: Radha Gonzalez WPtel: [facility] (15 min) Moderate 05/05/2019 Patient Education: [...] 40mg daily. 04/20/2019 Appointment: Radha Gonzalez WPtel: [phone] [facility] [place] (15 min) Moderate 04/20/2019 Patient [...] testosterone injections. 12/29/2018 Appointment: Radha Gonzalez WPtel: [phone] [facility] [place] (15 min) Moderate 12/29/2018 Patient Education: Patient Medication Summary Completed 12/29/2018 Patient Education: .Cervicalgia Neck Pain Completed 12/29/2018 Patient Education: Patient Medication Summary Completed 12/21/2018 Care Plan: %Hba1C add to blood from 12/17 LOINC : 58368-6 Pending 12/21/2018 Visit Plan: Right arm pain - dayna deformity noted - will refer to ortho - The pt is to use prn antiinflammatories to manage acute pain. The patient is to call the office if the pain is worsening or does not improve. 12/20/2018 Appointment: Sonia Potter WPtel: [facility] [place] (15 min) Moderate 12/20/2018 Patient Education: [...] testosterone. 12/16/2018 Appointment: Radha Gonzalez WPtel: [phone] [facility] [place] (15 min) Moderate 12/16/2018 Patient [...] as needed. 11/01/2018 Appointment: Radha Gonzalez WPtel: [phone] [facility] (15 min) Moderate 11/01/2018 Patient Education: [...] spray. 09/24/2018 Appointment: Sonia Potter WPtel: [phone] [facility] (15 min) Moderate 09/24/2018 Patient [...] at home. Multiple symptoms - referral to [facility] - appt in September 30, 2018. 08/16/2018 Appointment: Radha Gonzalez WPtel: [phone] [facility] (15 min) Moderate 08/16/2018 Patient Education: [...] at home. Multiple symptoms - referral to [facility] - rashes, hypogonadism, optic neuritis - all points to possible autoimmune syndrome. Spinal stenosis - of thoracic region - pt to talk to Dr. Dunaway about referral to a different specialist for his mid- back. Hypogonadism - continue with testosterone. Flu shot given today in clinic. 08/02/2018 Appointment: [phone] [facility] [place] (15 min) Moderate 08/02/2018 Patient Education: Patient Medication Summary Completed 08/02/2018 Care Plan: Referral Order SNOMED-CT : 683482477 Pending 08/02/2018 Appointment: Injection 07/15/2018 Patient Education: [...] home. Cervical spine stenosis - referral to [facility] physical therapy. I have also recommended a Referral to Dr. Dunaway. I have called and talked to Dr. Dunaway - he looked at the pt's imaging and agrees that getting the pt in to be seen soon would be a preferred option. 05/31/2018 Appointment: [phone] [facility] [place] (15 min) Moderate 05/31/2018 Patient Education: Patient Medication Summary Completed 05/31/2018 Care Plan: Referral Order SNOMED-CT : 541874011 Pending 05/31/2018 Care Plan: Referral Order SNOMED-CT : 971559011 Pending 05/31/2018 Appointment: Injection 05/21/2018 Patient Education: Patient Medication Summary Completed 05/21/2018 Care Plan: Referral Order SNOMED-CT : 901236511 Pending 05/21/2018 Visit Plan: Cervical and thoracic s tenosis with spinal cord compression -refer for appt with Dr Marr -rx for hydrocodone for pain-start gabapentin at bedtime Soft tissue lesion-left chest-schedule CTfor further evaluation HTN-elevated today-hold adderall-monitor blood pressure 05/20/2018 Appointment: Hannah Simons WPtel: [phone] [phone] [place] (15 min) Moderate 05/20/2018 [...] this. 05/10/2018 Appointment: Sonia Potter WPtel: [phone] [facility] [place] (15 min) Moderate 05/10/2018 Patient Education: Patient Medication Summary Completed 05/10/2018 Visit Plan: Sleep apnea - rx for cp ap - actually autopap was recommended and pt given rx today. HTN - referral to dr. kapoor - pt needs stress testing. 01/15/2018 Appointment: Radha Gonzalez WPtel: [phone] [facility] [place] (15 min) Moderate 01/15/2018 Patient Education: Patient Medication Summary Completed 01/15/2018 Care Plan: Referral Order SNOMED-CT : 109187425 Pending 01/15/2018 Visit Plan: Well Adult - [...] one month. 12/15/2017 Appointment: Radha Gonzalez WPtel: [facility]66[facility] New Patient 12/15/2017 Patient Education: Patient Medication Summary Completed 12/15/2017 Care Plan: CHEST X-RAY 2VW FRONTAL&LATL LOINC : 33928-8 Pending 12/15/2017 Appointment: Radha Gonzalez WPtel: [address] [place] [address] (15 min) Moderate 12/08/2017 Appointment: (S) New [...] Ordering Provider 08/03 Referral info faxed to [place]. Patient informed to be expecting a call from them with appt info Appointment Requested Referral: External, Ordering Provider Referral Appointment Requested Referral: External, Ordering Provider I called today; they will call him to schedule. Completed Referral: Armani Dunaway Referral Appointment Requested Referral: Mayte Kapoor Referral Appointment Requested Referral: [facility] [phone] [facility] [place] Referral Appointment Requested Referral: External, [...] at home. Multiple symptoms - referral to [facility] - rashes, hypogonadism, optic neuritis - all [...] at home. Multiple symptoms - referral to [facility] - appt in September 30, 2018. . [...] home. Cervical spine stenosis [facility]. I have also recommended a Referral to Dr. Dunaway. I have called and talked to Dr. Dunaway - he looked at the pt's imaging and agrees that getting the pt in to be seen soon would be a preferred option.
--- OUTSIDE RECORDS SUMMARY | 2020-04-28 00:19 | XMS REPORT | CCD ---
Author Author Nilton Gonzalez Organization [facility] Address [address] [place] [address] Phone Care Team Providers Care Area Attendant Name Role Phone PP Unavailable CCM Unavailable Summary Purpose Interface Exchange Family history Brother Diagnosis Age At Onset Alcoholism Unknown Father Diagnosis Age At Onset Hypercholesterolemia Unknown Social History Social History Element Codes Description Effective Dates Employment Unknown Curre ntly unemployed 04/20/2019 Marital status Unknown S chanda 12/15/2017 Number of children Unknown 1 12/15/[address]: 806027889 Never smoker 12/15/[address]: 235704 Currently drinks alcohol <1 per week 12/15/2017 [...] Date Stop Date Sta tus Fill Instructions diclofenac sodium 75 mg tablet,delayed release RxNorm: 400174 1 Tablet(s) PO BID 06/27/2019 07/26/2019 Ac tive acyclovir 400 mg tablet RxNorm: 086501 TAKE ONE TABLET BY MOUTH THREE TIMES A D AY NEEDED. TAKE AT ONSET OF SYMPTOMS OF COLD SORES FOR 5 DAYS. 06/27/2019 07/26/2019 Active diclofenac sodium 75 mg tablet,delayed release RxNorm: 598249 1 Tablet(s) PO BID 06/27/2019 06/26/2019 In active testosterone cypiona te 200 mg/mL intramuscular oil RxNorm: 9263266 1.25 Milliliter(s) IM 2 x month 06/24/2019 10/13/2019 Active Adderall 30 mg tablet RxNorm: 912642 2 Tablet(s) PO daily 06/16/2019 07/15/2019 Active hydrocodone 10 mg-ac etaminophen 325 mg tablet RxNorm: 853033 1 Tablet(s) PO TID 06/07/2019 No Stop Date Active prazosin 1 mg capsule RxNorm: 421811 2 Capsule(s) PO QPM 06/07/2019 10/04/2019 Active prazosin 1 mg capsule RxNorm: 553189 TAKE ONE CAPSULE BY MOUTH EVERY NIGHT AT BEDTIME 06/02/2019 06/06/2019 Inactive trazodone 100 mg tablet RxNorm: 662482 TAKE ONE TABLET BY MOUTH EVERY NIGHT AT BEDTIME 05/25/2019 11/20/2019 Active hydrocodone 10 mg-ac etaminophen 325 mg tablet RxNorm: 036491 1 Tablet(s) PO Q6 as needed 05/17/2019 06/06/2019 Inactive paroxetine 40 mg tablet RxNorm: 4990401 TAKE ONE TABLET BY MOUTH DAILY 05/16/2019 11/11/2019 Ac tive hydrocodone 5 mg-fanny taminophen 325 mg tablet RxNorm: 327007 1-2 Tablet(s) PO Q6 a s needed 05/16/2019 05/16/2019 Inactive prazosin 1 mg capsule RxNorm: 354459 1 Capsule(s) PO daily 05/05/2019 06/01/2019 Inactive paroxetine 40 mg tablet RxNorm: 0662709 1 Tablet(s) PO daily 04/20/2019 05/15/2019 Inactive Adderall 30 mg tablet RxNorm: 605773 2 Tablet(s) PO daily 04/19/2019 05/18/2019 Inactive alprazolam 1 mg tablet RxNorm: 078257 1 Tablet(s) PO TID as needed 04/13/2019 06/11/2019 Inactive hydrocodone 5 mg-fanny taminophen 325 mg tablet RxNorm: 056202 1-2 Tablet(s) PO Q6 a s needed 03/21/2019 05/15/2019 Inactive Adderall 30 mg tablet RxNorm: 862922 2 Tablet(s) PO daily 03/21/2019 04/14/2019 Inactive tramadol 50 mg tablet RxNorm: 368794 1-2 Tablet(s) PO Q6 as needed 03/14/2019 No Stop Date Active hydrocodone 5 mg-fanny taminophen 325 mg tablet RxNorm: 670629 1-2 Tablet(s) PO Q6 a s needed 02/23/2019 03/20/2019 Inactive Adderall 30 mg tablet RxNorm: 976238 2 Tablet(s) PO daily 02/23/2019 03/20/2019 Inactive Adderall 30 mg tablet RxNorm: 774986 2 Tablet(s) PO daily 01/24/2019 02/22/2019 Inactive ketoconazole 2 % top ical cream RxNorm: 289181 APPLY ONE GRAM TOPICA LLY TWICE A DAY 01/12/2019 01/26/2019 In active tramadol 50 mg tablet RxNorm: 882896 1-2 Tablet(s) PO Q6 as needed 01/11/2019 03/13/2019 In active atenolol 50 mg tablet RxNorm: 118053 1.5 Tablet(s) PO BID 12/29/2018 12/23/2019 Active hydrocodone 5 mg-fanny taminophen 325 mg tablet RxNorm: 123277 1-2 Tablet(s) PO Q6 a s needed 12/29/2018 02/22/2019 Inactive Adderall 30 mg tablet RxNorm: 639757 2 Tablet(s) PO daily 12/29/2018 01/23/2019 Inactive hydrocodone 5 mg-fanny taminophen 325 mg tablet RxNorm: 338887 1-2 Tablet(s) PO Q6 a s needed 12/29/2018 12/28/2018 Inactive testosterone cypiona te 200 mg/mL intramuscular oil RxNorm: 4516608 1.25 Milliliter(s) IM 12/29/2018 12/28/2018 Inactive hydrocodone 5 mg-fanny taminophen 325 mg tablet RxNorm: 580013 1 Tablet(s) PO TID ND N 12/28/2018 12/28/2018 In active testosterone cypiona te 200 mg/mL intramuscular oil RxNorm: 8577028 1.25 Milliliter(s) IM 2 x month 12/22/2018 04/12/2019 Inactive gabapentin 300 mg ca psule RxNorm: 625198 1 Capsule(s) PO QID 12/16/2018 12/10/2019 Active testosterone cypiona te 200 mg/mL intramuscular oil RxNorm: 4705581 Milliliter(s) IM 12/16/2018 12/16/2018 In active Voltaren 1 % topical gel RxNorm: 206514 2 Gram(s) APPLY TOPIC ALLY four TIMES A DAY 12/16/2018 01/20/2019 In active trazodone 100 mg tablet RxNorm: 070530 TAKE ONE TABLET BY MOUTH EVERY NIGHT AT BEDTIME 12/07/2018 05/24/2019 Inactive hydrocodone 5 mg-fanny taminophen 325 mg tablet RxNorm: 948388 1 Tablet(s) PO TID ND N 11/29/2018 12/27/2018 In active Adderall 30 mg tablet RxNorm: 526304 2 Tablet(s) PO daily 11/29/2018 12/28/2018 Inactive clindamycin 1 %-arthur oyl peroxide 5 % topical gel RxNorm: 119935 TOP APPLY TO AFFECTED AREA(S) ON SERNA TWO TIMES A DAY 11/17/2018 No Stop Date Active testosterone cypiona te 200 mg/mL intramuscular oil RxNorm: 8579986 1 Milliliter(s) IM 2 x month 11/17/2018 12/21/2018 Inactive Zorvolex 35 mg capsule RxNorm: 8510103 1 Capsule(s) PO TID as needed for pain 11/15/2018 05/13/2019 In active ketoconazole 2 % top ical cream RxNorm: 041100 APPLY ONE GRAM TOPICA LLY TWICE A DAY 11/15/2018 11/29/2018 In active testosterone cypiona te 200 mg/mL intramuscular oil RxNorm: 9613207 1 Milliliter(s) IM 11/15/2018 11/14/2018 Inactive hydrocodone 5 mg-fanny taminophen 325 mg tablet RxNorm: 749525 1 Tablet(s) PO TID ND N 11/02/2018 11/28/2018 In active Singulair 10 mg tablet RxNorm: 022333 1 Tablet(s) PO daily 11/01/2018 07/28/2019 Active testosterone cypiona te 200 mg/mL intramuscular oil RxNorm: 6514043 1 Milliliter(s) IM 2 x month 11/01/2018 11/16/2018 Inactive Adderall 30 mg tablet RxNorm: 838130 2 Tablet(s) PO daily 10/29/2018 11/27/2018 Inactive gabapentin 300 mg ca psule RxNorm: 439512 1 Capsule(s) PO BID m ay take TID 10/19/2018 12/15/2018 In active gabapentin 300 mg ca psule RxNorm: 406725 1 Capsule(s) PO BID m ay take TID 10/19/2018 10/18/2018 In active alprazolam 1 mg tablet RxNorm: 417148 1 Tablet(s) PO TID as needed 10/15/2018 04/19/2019 Inactive testosterone cypiona te 200 mg/mL intramuscular oil RxNorm: 795717 Milliliter(s) IM 09/28/2018 09/28/2018 In active pravastatin 40 mg ta blet RxNorm: 014412 TAKE ONE TABLET BY [facility] EVERY NIGHT AT BEDTIME 09/27/2018 09/21/2019 Active Tamiflu 75 mg capsule RxNorm: 667353 1 Capsule(s) PO BID 09/24/2018 09/28/2018 Inactive Adderall 30 mg tablet RxNorm: 580161 2 Tablet(s) PO daily 09/20/2018 10/19/2018 Inactive hydrocodone 5 mg-fanny taminophen 325 mg tablet RxNorm: 209300 1 Tablet(s) PO TID ND N 09/20/2018 11/01/2018 In active testosterone cypiona te 200 mg/mL intramuscular oil RxNorm: 428616 Milliliter(s) IM 09/16/2018 09/16/2018 In active testosterone cypiona te 200 mg/mL intramuscular oil RxNorm: 196734 1 Milliliter(s) IM 09/02/2018 09/02/2018 Inactive testosterone cypiona te 200 mg/mL intramuscular oil RxNorm: 659666 Milliliter(s) IM 08/19/2018 08/19/2018 In active Adderall 30 mg tablet RxNorm: 009064 2 Tablet(s) PO daily 08/18/2018 09/16/2018 Inactive tramadol 50 mg tablet RxNorm: 226310 1-2 Tablet(s) PO Q6 as needed 08/18/2018 01/12/2019 In active Dexilant 60 mg capsu le, delayed release RxNorm: 622483 1 Capsule(s) PO BID 08/17/2018 08/11/2019 Ac tive ketoconazole 2 % top ical cream RxNorm: 139287 1 Gram(s) TOP BID 08/17/2018 08/26/2018 Inactive Zorvolex 35 mg capsule RxNorm: 1076780 1 Capsule(s) PO TID as needed for pain 08/17/2018 08/16/2018 In active atenolol 50 mg tablet RxNorm: 330209 1 Tablet(s) PO BID 08/17/2018 12/28/2018 Inactive Zorvolex 35 mg capsule RxNorm: 4822293 1 Capsule(s) PO TID as needed for pain 08/17/2018 11/14/2018 In active ketoconazole 2 % top ical cream RxNorm: 130254 1 Gram(s) TOP BID 08/02/2018 08/11/2018 Inactive hydrocortisone 2.5 % topical cream RxNorm: 243021 1 Application TOP BID 07/21/2018 No Stop Date Active Adderall 30 mg tablet RxNorm: 599956 2 Tablet(s) PO daily 07/20/2018 08/17/2018 Inactive testosterone cypiona te 200 mg/mL intramuscular oil RxNorm: 292772 Milliliter(s) IM 07/15/2018 07/15/2018 In active alprazolam 1 mg tablet RxNorm: 272895 1 Tablet(s) PO TID as needed 07/12/2018 09/07/2018 Inactive hydrocodone 5 mg-fanny taminophen 325 mg tablet RxNorm: 100960 1 Tablet(s) PO TID ND N 06/30/2018 09/19/2018 In active pravastatin 40 mg ta blet RxNorm: 574051 1 Tablet(s) PO QHS 06/18/2018 09/15/2018 Inactive Adderall 30 mg tablet RxNorm: 649803 2 Tablet(s) PO daily 06/18/2018 07/17/2018 Inactive testosterone cypiona te 200 mg/mL intramuscular oil RxNorm: 252642 Milliliter(s) IM 06/17/2018 06/17/2018 In active Voltaren 1 % topical gel RxNorm: 746838 APPLY TOPICALLY TWO T IMES A DAY 06/16/2018 07/21/2018 In active Vitamin D2 50,000 un it capsule RxNorm: 2523336 1 Capsule(s) PO QW 05/21/2018 No Stop Date Active Adderall 30 mg tablet RxNorm: 663388 2 Tablet(s) PO daily 05/21/2018 06/17/2018 Inactive testosterone cypiona te 200 mg/mL intramuscular oil RxNorm: 987159 Milliliter(s) IM 05/21/2018 05/21/2018 In active testosterone cypiona te 200 mg/mL intramuscular oil RxNorm: 9056573 1 Milliliter(s) IM monthly 05/20/2018 09/16/2018 Inactive testosterone cypiona te 200 mg/mL intramuscular oil RxNorm: 310499 1 Milliliter(s) IM monthly 05/20/2018 05/19/2018 Inactive hydrocodone 5 mg-fanny taminophen 325 mg tablet RxNorm: 722458 1 Tablet(s) PO TID ND N 05/20/2018 06/29/2018 In active Vitamin D2 50,000 un it capsule RxNorm: 9142030 1 Capsule(s) PO QW 05/18/2018 05/20/2018 Inactive triamcinolone aceton destin 0.025 % topical cream RxNorm: 6732539 1 Application TOP BI D 05/13/2018 No Stop Date Active Dexilant 60 mg capsu le, delayed release RxNorm: 997412 1 Capsule(s) PO BID 05/13/2018 08/16/2018 In active Zorvolex 35 mg capsule RxNorm: 2336861 1 Capsule(s) PO TID as needed for pain 05/12/2018 08/09/2018 In active Voltaren 1 % topical gel RxNorm: 585921 1 Application TOP BID 05/12/2018 06/15/2018 Inactive ProAir HFA 90 mcg/ac tuation aerosol inhaler RxNorm: 198621 1 Puff(s) INH QID as needed 05/10/2018 No Stop Date Active baclofen 20 mg tablet RxNorm: 811633 1 Tablet(s) PO TID as needed muscle spas ms 05/10/2018 06/08/2018 In active Singulair 10 mg tablet RxNorm: 392724 1 Tablet(s) PO daily 05/10/2018 08/07/2018 Inactive acyclovir 400 mg tablet RxNorm: 711203 1 Tablet(s) PO TID as needed take at ons et of symptoms of cold sores x 5 days 05/10/2018 06/26/2019 Inactive atenolol 50 mg tablet RxNorm: 849881 1 Tablet(s) PO BID 05/10/2018 08/07/2018 Inactive triamcinolone aceton destin 0.025 % topical cream RxNorm: 4700630 1 Application TOP BI D 05/10/2018 05/12/2018 In active paroxetine 20 mg tablet RxNorm: 6339955 2 Tablet(s) PO QHS 05/10/2018 04/19/2019 Inactive tramadol 50 mg tablet RxNorm: 086864 1 Tablet(s) PO TID as needed 05/10/2018 05/19/2018 Inactive Dexilant 60 mg capsu le, delayed release RxNorm: 776985 1 Capsule(s) PO daily 05/10/2018 05/12/2018 In active alprazolam 1 mg tablet RxNorm: 632429 1 Tablet(s) PO TID as needed 05/10/2018 08/06/2018 Inactive trazodone 100 mg tablet RxNorm: 865129 1 Tablet(s) PO QHS 05/10/2018 11/05/2018 Inactive cyclobenzaprine 10 m g tablet RxNorm: 708763 1 Tablet(s) PO TID as needed muscle spasms 05/07/2018 07/12/2018 Inactive trazodone 100 mg tablet RxNorm: 642753 1 Tablet(s) PO QHS 05/07/2018 05/09/2018 Inactive Adderall 30 mg tablet RxNorm: 002887 2 Tablet(s) PO daily 04/19/2018 05/18/2018 Inactive alprazolam 1 mg tablet RxNorm: 927881 1 Tablet(s) PO BID 04/19/2018 05/09/2018 Inactive Adderall 30 mg tablet RxNorm: 858015 2 Tablet(s) PO daily 03/26/2018 04/18/2018 Inactive paroxetine 20 mg tablet RxNorm: 3240112 2 Tablet(s) PO QHS 03/15/2018 05/09/2018 Inactive Adderall 30 mg tablet RxNorm: 432777 2 Tablet(s) PO daily 02/25/2018 03/25/2018 Inactive cyclobenzaprine 10 m g tablet RxNorm: 589977 1 Tablet(s) PO TID as needed muscle spasms 02/22/2018 05/06/2018 Inactive tramadol 50 mg tablet RxNorm: 987230 1 Tablet(s) PO TID as needed 02/22/2018 03/07/2018 Inactive tramadol 50 mg tablet RxNorm: 790466 1 Tablet(s) PO TID as needed 02/22/2018 02/21/2018 Inactive trazodone 100 mg tablet RxNorm: 790531 1 Tablet(s) PO QHS 02/03/2018 05/03/2018 Inactive trazodone 100 mg tablet RxNorm: 597884 1 Tablet(s) PO QHS 02/03/2018 02/02/2018 Inactive Adderall 30 mg tablet RxNorm: 812556 2 Tablet(s) PO daily 01/27/2018 02/18/2018 Inactive acyclovir 400 mg tablet RxNorm: 600419 1 Tablet(s) PO TID as needed take at ons et of symptoms of cold sores x 5 days 01/15/2018 05/09/2018 Inactive Bactrim DS 800 mg-16 0 mg tablet RxNorm: 224216 1 Tablet(s) PO BID 01/11/2018 01/17/2018 Inactive Bactrim DS 800 mg-16 0 mg tablet RxNorm: 303446 1 Tablet(s) PO BID 01/11/2018 01/10/2018 Inactive Dexilant 60 mg capsu le, delayed release RxNorm: 960827 1 Capsule(s) PO daily 12/23/2017 05/09/2018 In active Dexilant 60 mg capsu le, delayed release RxNorm: 454329 1 Capsule(s) PO daily 12/23/2017 12/22/2017 In active atenolol 50 mg tablet RxNorm: 122827 1 Tablet(s) PO BID 12/15/2017 05/09/2018 Inactive alprazolam 1 mg tablet RxNorm: 980443 1-1.5 Tablet(s) PO daily 12/15/2017 04/18/2018 Inactive ceftriaxone 500 mg s olution for injection RxNorm: 0858027 Inj 08/03/2015 08/03/2015 Inactive paroxetine 20 mg tablet RxNorm: 4562099 2 Tablet(s) PO QHS 08/01/2015 10/29/2015 Inactive pravastatin 40 mg ta blet RxNorm: 697519 1/2 Tablet(s) PO QHS 08/01/2015 12/14/2017 Inactive Trazadone 100mg 100 mg RxNorm: 1 PO daily 08/01/2015 11/27/2015 Inactive Trazadone 100mg 100 mg RxNorm: 1 PO daily 08/01/2015 05/04/2018 Inactive atenolol 50 mg tablet RxNorm: 329411 1 Tablet(s) PO daily 08/01/2015 10/29/2015 Inactive Fish Oil 360 mg-1,20 0 mg capsule RxNorm: 782647 1 Capsule(s) PO BID No Start Date Active Zyrtec 10 mg tablet RxNorm: 9960629 1 Tablet(s) PO daily No Start Date Active pravastatin 40 mg ta blet RxNorm: 117247 1/2 Tablet(s) PO QHS No Start Date 07/31/2015 Inactive Benadryl Allergy 25 mg tablet RxNorm: 3566504 1 Tablet(s) PO daily No Start Date 07/19/2018 Inactive Adderall 30 mg tablet RxNorm: 953616 2 Tablet(s) PO daily No Start Date 01/26/2018 Inactive Aspirin Low Dose 81 mg tablet,delayed release RxNorm: 107755 1 Tablet(s) PO BID No Start Date 07/19/2018 Inactive Singulair 10 mg tablet RxNorm: 228187 1 Tablet(s) PO daily No Start Date 05/09/2018 Inactive cyclobenzaprine 10 m g tablet RxNorm: 403538 1 Tablet(s) PO TID as needed muscle spasms No Start Date 02/21/2018 Inactive Trazadone 100mg 100 mg RxNorm: 1 PO daily No Start Date 07/31/2015 Inactive ibuprofen 800 mg tablet RxNorm: 065407 1 Tablet(s) PO BID -TID No Start Date 06/06/2019 Inactive clindamycin 1 %-arthur oyl peroxide 5 % topical gel RxNorm: 446052 TOP APPLY TO AFFECTED AREA(S) ON SERNA TWO TIMES A DAY No Start Date 11/16/2018 Inactive hydrocortisone 2.5 % topical cream RxNorm: 654529 1 Application TOP BID No Start Date 07/20/2018 Inactive alprazolam 1 mg tablet RxNorm: 617122 2 Tablet(s) PO daily No Start Date 12/14/2017 Inactive tramadol 50 mg tablet RxNorm: 460020 1-2 Tablet(s) PO Q6 as needed No Start Date 08/17/2018 Inactive Vitamin D2 50,000 un it capsule RxNorm: 6766474 1 Capsule(s) PO QW No Start Date 05/17/2018 Inactive pantoprazole 40 mg t ablet,delayed release RxNorm: 656009 1 Tablet(s) PO BID No Start Date 12/22/2017 Inactive atenolol 50 mg tablet RxNorm: 019125 1 Tablet(s) PO daily No Start Date 07/31/2015 Inactive hydrocodone 10 mg-ac etaminophen 325 mg tablet RxNorm: 914853 1 Tablet(s) PO Q6 as needed No Start Date 05/16/2019 Inactive paroxetine 20 mg tablet RxNorm: 525204 2 Tablet(s) PO QHS No Start Date 07/31/2015 Inactive Medication Administered Medication Codes Instruc tions Start Date Status testosterone cypionate 200 mg/mL intramuscular oil RxNorm: 9369716 1.25Milliliter 12/29/2018 No longer Active testosterone cypionate 200 mg/mL intramuscular oil RxNorm: 9347827 Milliliter 12/16/2018 No longer Active testosterone cypionate 200 mg/mL intramuscular oil RxNorm: 9692664 1Milliliter 11/15/2018 No longer Active testosterone cypionate 200 mg/mL intramuscular oil RxNorm: 967151 Milliliter 09/28/2018 No longer Active testosterone cypionate 200 mg/mL intramuscular oil RxNorm: 153696 Milliliter 09/16/2018 No longer Active testosterone cypionate 200 mg/mL intramuscular oil RxNorm: 260272 1Milliliter 09/02/2018 No longer Active testosterone cypionate 200 mg/mL intramuscular oil RxNorm: 341731 Milliliter 08/19/2018 No longer Active testosterone cypionate 200 mg/mL intramuscular oil RxNorm: 232530 Milliliter 07/15/2018 No longer Active testosterone cypionate 200 mg/mL intramuscular oil RxNorm: 566397 Milliliter 06/17/2018 No longer Active testosterone cypionate 200 mg/mL intramuscular oil RxNorm: 463359 Milliliter 05/21/2018 No longer Active ceftriaxone 500 mg solution for injection RxNorm: 4420650 08/03/2015 No longer A ctive Immunizations Vaccine Codes Date Status Influenza CVX: 141 08/02 completed Tetanus, Diptheria, Pertussis CVX: 113 05/16/2011 completed Tetanus/Diptheria CVX: 113 05/16/2011 completed Assessments Condition Codes Effectiv e [...] Code Result Date Comp. Metabolic Panel (14) 94163 GLUCOSE 117 mg/dL 12/17/2018 Comp. Metabolic Panel (14) 38597 BUN 17 mg/dL 12/17/2018 Comp. Metabolic Panel (14) 70374 CREATININE 0.99 mg/dL 12/17/2018 Comp. Metabolic Panel (14) 28269 SODIUM 137 mmol/L 12/17/2018 Comp. Metabolic Panel (14) 76722 POTASSIUM 4.6 mmol/L 12/17/2018 Comp. Metabolic Panel (14) 32425 CHLORIDE 102 mmol/L 12/17/2018 Comp. Metabolic Panel (14) 54196 CARBON DIOXIDE 21 mmol/L 12/17/2018 Comp. Metabolic Panel (14) 41503 CALCIUM 9.4 mg/dL 12/17/2018 Comp. Metabolic Panel (14) 08980 TOTAL PROTEIN 7.5 g/dL 12/17/2018 Comp. Metabolic Panel (14) 04381 ALBUMIN 5.1 g/dL 12/17/2018 Comp. Metabolic Panel (14) 12990 ALKALINE PHOSPHATASE 79 U/L 12/17/2018 Comp. Metabolic Panel (14) 53248 TOTAL BILIRUBIN 0.5 mg/dL 12/17/2018 Comp. Metabolic Panel (14) 62195 SGOT (AST) 34 U/L 12/17/2018 Comp. Metabolic Panel (14) 22850 SGPT (ALT) 40 U/L 12/17/2018 Comp. Metabolic Panel (14) 83825 eGFR (mL/min/1.73m2) 115 12/17/2018 Comp. Metabolic Panel (14) 19975 INTERPRETATION 12/17/2018 Testosterone Serum 458280 TESTOSTERONE 96.8 ng/dL 12/17/2018 Cbc With Differential/Platelet 40013 WBC 5.61 thou/uL 9 Cbc With Differential/Platelet 09511 RBC 5.53 mil/uL 12/17/2018 Cbc With Differential/Platelet 43196 HEMOGLOBIN 15.4 g/dL 12/17/2018 Cbc With Differential/Platelet 44370 HEMATOCRIT 48.1 % 12/17/2018 Cbc With Differential/Platelet 86345 MCV 87.0 fL 12/17/2018 Cbc With Differential/Platelet 53540 MCH 27.8 pg 12/17/2018 Cbc With Differential/Platelet 79135 MCHC 32.0 g/dL 12/17/2018 Cbc With Differential/Platelet 54920 RDW-CV 13.9 % 12/17/2018 Cbc With Differential/Platelet 62381 PLATELET COUNT 294 thou/uL 12/17/2018 Cbc With Differential/Platelet 71517 NEUTROPHIL % 71.2 % 12/17/2018 Cbc With Differential/Platelet 00096 LYMPHOCYTE % 22.2 % 12/17/2018 Cbc With Differential/Platelet 78136 MONOCYTE % 5.4 % 12/17/2018 Cbc With Differential/Platelet 43773 EOS % 0.9 % 12/17/2018 Cbc With Differential/Platelet 92869 BASO % 0.4 % 12/17/2018 Cbc With Differential/Platelet 10543 NEUTROPHIL ABS # 3.99 thou/uL 12/17/2018 Cbc With Differential/Platelet 20143 LYMPH ABS # 1.25 thou/uL 12/17/2018 Cbc With Differential/Platelet 30112 MONOCYTE ABS # 0.30 thou/uL 12/17/2018 Cbc With Differential/Platelet 72373 EOS ABS # 0.05 thou/uL 9 Cbc With Differential/Platelet 50339 BASO ABS # 0.02 thou/uL 12/17/2018 Lipid Panel 96946 CHOLES TEROL 227 mg/dL 12/17/2018 Lipid Panel 39893 TRIGLY CERIDES 229 mg/dL 12/17/2018 Lipid Panel 88839 HDL 41 mg/dL 12/17/2018 Lipid Panel 49196 CHOLES TEROL/HDL 5.54 12/17/2018 Lipid Panel 47893 LDL (C ALCULATED) 140 mg/dL 12/17/2018 Lipid Panel 70265 LDL/HDL 3.41 12/17/2018 Lipid Panel 26562 INTERP RETATION 12/17/2018 Tsh 854556 TSH 1.190 uIU/mL 12/17/2018 Testosterone Serum 760681 TESTOSTERONE 44.1 ng/dL 08/18/2018 Hemoglobin 383181 WBC 7.62 thou/uL 08/17/2018 Hemoglobin 212364 RBC 5.23 mil/uL 08/17/2018 Hemoglobin 355208 HEMOGL OBIN 15.0 g/dL 08/17/2018 Hemoglobin 502004 HEMATO CRIT 45.0 % 08/17/2018 Hemoglobin 612803 MCV 86.0 fL 08/17/2018 Hemoglobin 839366 MCH 28.7 pg 08/17/2018 Hemoglobin 811163 MCHC 33.3 g/dL 08/17/2018 Hemoglobin 007270 RDW-CV 12.9 % 08/17/2018 Hemoglobin 099916 PLATEL ET COUNT 313 thou/uL 08/17/2018 Hematocrit 279527 WBC 7.62 thou/uL 08/17/2018 Hematocrit 546353 RBC 5.23 mil/uL 08/17/2018 Hematocrit 091847 HEMOGL OBIN 15.0 g/dL 08/17/2018 Hematocrit 761953 HEMATO CRIT 45.0 % 08/17/2018 Hematocrit 297735 MCV 86.0 fL 08/17/2018 Hematocrit MCH 28.7 pg 08/17/2018 Hematocrit MCHC 33.3 g/dL 08/17/2018 Hematocrit RDW-CV 12.9 % 08/17/2018 Hematocrit PLATEL ET COUNT 313 thou/uL 08/17/2018 Culture Mrsa [id number] MRSA CULTURE SEE NOTES 06/21/2018 Comp. Metabolic Panel (14) 80637 GLUCOSE 101 mg/dL 06/18/2018 Comp. Metabolic Panel (14) 74320 BUN 18 mg/dL 06/18/2018 Comp. Metabolic Panel (14) 96034 CREATININE 0.99 mg/dL 06/18/2018 Comp. Metabolic Panel (14) 00366 SODIUM 141 mmol/L 06/18/2018 Comp. Metabolic Panel (14) 45363 POTASSIUM 4.3 mmol/L 06/18/2018 Comp. Metabolic Panel (14) 56805 CHLORIDE 103 mmol/L 06/18/2018 Comp. Metabolic Panel (14) 51529 CARBON DIOXIDE 23 mmol/L 06/18/2018 Comp. Metabolic Panel (14) 70669 CALCIUM 9.8 mg/dL 06/18/2018 Comp. Metabolic Panel (14) 87453 TOTAL PROTEIN 7.1 g/dL 06/18/2018 Comp. Metabolic Panel (14) 44977 ALBUMIN 5.2 g/dL 06/18/2018 Comp. Metabolic Panel (14) 91768 ALKALINE PHOSPHATASE 65 U/L 06/18/2018 Comp. Metabolic Panel (14) 63078 TOTAL BILIRUBIN 0.6 mg/dL 06/18/2018 Comp. Metabolic Panel (14) 07753 SGOT (AST) 21 U/L 06/18/2018 Comp. Metabolic Panel (14) 45952 SGPT (ALT) 24 U/L 06/18/2018 Comp. Metabolic Panel (14) 62428 eGFR (mL/min/1.73m2) 115 06/18/2018 Comp. Metabolic Panel (14) 28211 INTERPRETATION 06/18/2018 Cbc With Differential/Platelet 09742 WBC 4.55 thou/uL 8 Cbc With Differential/Platelet 80881 RBC 5.13 mil/uL 06/18/2018 Cbc With Differential/Platelet 75798 HEMOGLOBIN 14.4 g/dL 06/18/2018 Cbc With Differential/Platelet 50216 HEMATOCRIT 44.1 % 06/18/2018 Cbc With Differential/Platelet 36968 MCV 85.9 fL 06/18/2018 Cbc With Differential/Platelet 17301 MCH 28.1 pg 06/18/2018 Cbc With Differential/Platelet 03524 MCHC 32.7 g/dL 06/18/2018 Cbc With Differential/Platelet 16603 RDW-CV 13.4 % 06/18/2018 Cbc With Differential/Platelet 25608 PLATELET COUNT 287 thou/uL 06/18/2018 Cbc With Differential/Platelet 37520 NEUTROPHIL % 53.9 % 06/18/2018 Cbc With Differential/Platelet 78216 LYMPHOCYTE % 36.1 % 06/18/2018 Cbc With Differential/Platelet 07632 MONOCYTE % 7.4 % 06/18/2018 Cbc With Differential/Platelet 23135 EOS % 1.9 % 06/18/2018 Cbc With Differential/Platelet 51550 BASO % 0.8 % 06/18/2018 Cbc With Differential/Platelet 96501 NEUTROPHIL ABS # 2.45 thou/uL 06/18/2018 Cbc With Differential/Platelet 73340 LYMPH ABS # 1.64 thou/uL 06/18/2018 Cbc With Differential/Platelet 32630 MONOCYTE ABS # 0.34 thou/uL 06/18/2018 Cbc With Differential/Platelet 42250 EOS ABS # 0.09 thou/uL 8 Cbc With Differential/Platelet 95484 BASO ABS # 0.04 thou/uL 06/18/2018 Review [...] neck and chest Full Exam - General 1995 Constitutional general appearance Overall: well developed 05/05/2019 [...] distress 12/29/2018 None Full Exam - General 1995 Constitutional general appearance Overall: well nourished 12/29/2018 None Full Exam - General 1994 Constitutional general appearance Hygiene/Attention to Grooming: good hygiene 12/29/2018 None Full Exam - General 1995 Eyes conjunctiva/eyelids Overall: conjunctiva clear 12/29/2018 None Full Exam - General 1995 Eyes conjunctiva/eyelids Overall: cornea clear 12/29/2018 None [...] General 1995 Eyes conjunctiva/eyelids Overall: cornea clear 01/15/2018 None [...] Procedure Codes Date THER/PROPH/DIAG INJ SC/IM CPT-4: 09342 12/29/2018 THER/PROPH/DIAG INJ SC/IM CPT-4: 89503 12/16/2018 THER/PROPH/DIAG INJ SC/IM CPT-4: 52081 11/15/2018 THER/PROPH/DIAG INJ SC/IM CPT-4: 98334 09/28/2018 THER/PROPH/DIAG INJ SC/IM CPT-4: 80289 09/16/2018 THER/PROPH/DIAG INJ SC/IM CPT-4: 90872 09/02/2018 THER/PROPH/DIAG INJ SC/IM CPT-4: 91120 08/19/2018 IMMUNIZATION ADMIN CPT- 4: 38165 08/02/2018 FLU VAC NO PRSV 4 VA L 3 YRS+ CPT-4: 63712 08/02/2018 THER/PROPH/DIAG INJ SC/IM CPT-4: 27616 07/15/2018 THER/PROPH/DIAG INJ SC/IM CPT-4: 50098 06/17/2018 THER/PROPH/DIAG INJ SC/IM CPT-4: 36782 05/21/2018 THER/PROPH/DIAG INJ SC/IM CPT-4: 38828 08/03/2015 ROCEPHIN, PER 250 MG CPT-4: J0696 08/03/2015 Vital Signs Date Vital 06/07/2019 Blood Pressure 1: 160/88 Code: 8480-6 BMI: 36.0 Code: 95683-5 Heart Rate 1: 70 bpm Height: 5'7" SpO2: 94% Weight: 230 lbs 05/05/2019 Heigh t: Weight: 04/20/2019 Blood Pressure 1: 160/84 Code: 8480-6 BMI: 34.0 Code: 74429-9 Heart Rate 1: 82 bpm Height: 5'7" SpO2: 97% Weight: 216 lbs 13 o z 12/29/2018 Blood Pressure 1: 144/90 Code: 8480-6 BMI: 34.8 Code: 74121-9 Heart Rate 1: 91 bpm Height: 5'7" SpO2: 98% Weight: 222 lbs 12/20/2018 Blood Pressure 1: 124/76 Code: 8480-6 BMI: 35.4 Code: 93576-2 Heart Rate 1: 79 bpm Height: 5'7" SpO2: 99% Weight: 226 lbs 12/16/2018 Blood Pressure 1: 160/90 Code: 8480-6 BMI: 35.4 Code: 63997-3 Heart Rate 1: 90 bpm Height: 5'7" SpO2: 95% Weight: 226 lbs 11/01/2018 Blood Pressure 1: 146/82 Code: 8480-6 BMI: 36.0 Code: 74855-8 Heart Rate 1: 87 bpm Height: 5'7" SpO2: 98% Weight: 230 lbs 09/24/2018 Blood Pressure 1: 140/82 Code: 8480-6 BMI: 36.0 Code: 53273-2 Heart Rate 1: 86 bpm Height: 5'7" SpO2: 98% Temperature: 37.1 (C ) / 98.7 (F) Weight: 230 lbs 08/16/2018 Blood Pressure 1: 148/82 Code: 8480-6 Blood Pressure 2: 157/92 Code: 8480-6 BMI: 35.9 Code: 42667-6 Heart Rate 1: 72 bpm Height: 5'7" SpO2: 96% Weight: 229 lbs 08/02/2018 Blood Pressure 1: 142/86 Code: 8480-6 BMI: 35.2 Code: 82243-5 Heart Rate 1: 101 bpm Height: 5'7" SpO2: 97% Weight: 225 lbs 05/31/2018 Blood Pressure 1: 134/82 Code: 8480-6 BMI: 35.4 Code: 21960-7 Heart Rate 1: 91 bpm Height: 5'7" SpO2: 96% Weight: 226 lbs 05/20/2018 Blood Pressure 1: 160/100 Code: 8480-6 BMI: 35.2 Code: 82170-4 Heart Rate 1: 89 bpm Height: 5'7" SpO2: 98% Weight: 225 lbs 05/10/2018 Blood Pressure 1: 124/70 Code: 8480-6 BMI: 35.1 Code: 56135-0 Heart Rate 1: 93 bpm Height: 5'7" SpO2: 99% Weight: 224 lbs 01/15/2018 Blood Pressure 1: 142/92 Code: 8480-6 BMI: 36.3 Code: 08087-3 Heart Rate 1: 77 bpm Height: 5'7" SpO2: 98% Weight: 232 lbs 12/15/2017 Blood Pressure 1: 156/98 Code: 8480-6 BMI: 36.2 Code: 76759-6 Heart Rate 1: 87 bpm Height: 5'7" [...] eye 01/15/2018 None vision change [place] 01/15/2018 None vision change Quality lo ss [...] vision 12/15/2017 None vision change [place] 12/15/2017 None vision change Onset and Resolution sudden in onset 12/15/2017 None vision change Onset of Symptom 3.5 weeks ago 12/15/2017 None vision change Limitation on Activities severely limits vision 12/15/2017 None vision change Triggers n o known associated factors 12/15/2017 None Advance Directives No Advance Directive data Encounters Encounter Performer Loca tion Codes Date ([id number]) 67723 EST. P ATIENT, LEVEL IV Diagnosis: Cervicalgia[ICD10: M54.2] Diagnosis: Pain in thoracic spine[ICD10: M54.6] Diagnosis: Spinal stenosis, thoracic region[ICD10: M48.04] Diagnosis: Spinal stenosis, cervical region[ICD10: M48.02] Diagnosis: Changes in skin texture[ICD10: R23.4] Radha Gonzalez MD, [facility] CPT-4: 41994 06/07/2019 71284 EST. PATIENT, LEVEL IV Diagnosis: Cervicalgia[ICD10: M54.2] Diagnosis: Other fatigue[ICD10: R53.83] Diagnosis: Essential (primary) hypertension[ICD10: I10] Diagnosis: Major depressive disorder, recurrent, moderate[ICD10: F33.1] Sonia Gonzalez MD, [facility] CPT-4: 06966 05/05/2019 ([id number]) 05014 EST. P ATIENT, LEVEL III Diagnosis: Essential (primary) hypertension[ICD10: I10] Diagnosis: Major depressive disorder, recurrent, moderate[ICD10: F33.1] Diagnosis: Dysphagia, pharyngeal phase[ICD10: R13.13] Radha Gonzalez MD, [facility] CPT-4: 05927 04/20/2019 ([id number]) 79929 EST. 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 PATIENT, LEVEL III Diagnosis: Pain in right arm[ICD10: M79.601] Sonia Gonzalez MD, [facility] CPT-4: 04404 12/20/2018 ([id number]) 82541 EST. 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 PATIENT, LEVEL III Diagnosis: Acute upper respiratory infection, unspecified[ICD10: J06.9] Diagnosis: Other allergic rhinitis[ICD10: J30.89] Sonia Gonzalez MD, [facility] CPT-4: 81021 09/24/2018 ([id number]) 81808 EST. 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 P ATIENT, LEVEL IV Diagnosis: Essential (primary) hypertension[ICD10: I10] Diagnosis: Cervicalgia[ICD10: M54.2] Radha Gonzalez MD, [facility] CPT-4: 33893 05/31/2018 ([id number]) 96591 EST. 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 06/07/2019 Appointment: Radha Gonzalez WPtel: [address] [place], [place] [address] (15 min) Moderate 06/07/2019 Patient Education: Patient [...] of over-medication. 05/05/2019 Appointment: Sonia Potter WPtel: [facility]5 [facility] (30 min) Complex 05/05/2019 Appointment: Radha Gonzalez WPtel: [facility]5 [facility] (15 min) Moderate 05/05/2019 Patient Education: Patient [...] 40mg daily. 04/20/2019 Appointment: Radha Gonzalez WPtel: [facility]5 [facility] (15 min) Moderate 04/20/2019 Patient Education: Patient [...] injections. 12/29/2018 Appointment: Radha Gonzalez WPtel: [phone] [facility] [place] (15 min) Moderate 12/29/2018 Patient Education: Patient Medication Summary Completed 12/29/2018 Patient Education: .Cervicalgia Neck Pain Completed 12/29/2018 Patient Education: Patient Medication Summary Completed 12/21/2018 Care Plan: %Hba1C add to blood from 12/17 LOINC : 28503-3 Pending 12/21/2018 Visit Plan: Right arm pain - dayna deformity noted - will refer to ortho - The pt is to use prn antiinflammatories to manage acute pain. The patient is to call the office if the pain is worsening or does not improve. 12/20/2018 Appointment: Sonia Potter WPtel: [facility] (15 min) Moderate 12/20/2018 Patient Education: Patient [...] with testosterone. 12/16/2018 Appointment: Radha Gonzalez WPtel: [facility] (15 min) Moderate 12/16/2018 Patient Education: Patient [...] as needed. 11/01/2018 Appointment: Radha Gonzalez [facility]el: [facility] (15 min) Moderate 11/01/2018 Patient Education: Patient [...] spray. 09/24/2018 Appointment: [facility] [facility] (15 min) Moderate 09/24/2018 Patient Education: Patient [...] at home. Multiple symptoms - referral to [facility] - appt in September 30, 2018. 08/16/2018 Appointment: Radha Gonzalez [facility]el[facility] [address] [facility] (15 min) Moderate 08/16/2018 Patient Education: [...] at home. Multiple symptoms - referral to [facility] - rashes, hypogonadism, optic neuritis - all points to possible autoimmune syndrome. Spinal stenosis - of thoracic region - pt to talk to Dr. Dunaway about referral to a different specialist for his mid- back. Hypogonadism - continue with testosterone. Flu shot given today in clinic. 08/02/2018 Appointment: Radha Gonzalez [facility]Ptel[facility] [address] [facility] [place] (15 min) Moderate 08/02/2018 Patient Education: Patient Medication Summary Completed 08/02/2018 Care Plan: Referral Order SNOMED-CT : 525014676 Pending 08/02/2018 Appointment: Injection 07/15/2018 Patient Education: [...] home. Cervical spine stenosis - referral to [facility]. I have also recommended a Referral to Dr. Dunaway. I have called and talked to Dr. Dunaway - he looked at the pt's imaging and agrees that getting the pt in to be seen soon would be a preferred option. 05/31/2018 Appointment: Radha Gonzalez [facility]Ptel: [address] [facility] [place] (15 min) Moderate 05/31/2018 Patient Education: Patient Medication Summary Completed 05/31/2018 Care Plan: Referral Order SNOMED-CT : 224498399 Pending 05/31/2018 Care Plan: Referral Order SNOMED-CT : 172264062 Pending 05/31/2018 Appointment: Injection 05/21/2018 Patient Education: Patient Medication Summary Completed 05/21/2018 Care Plan: Referral Order SNOMED-CT : 834165960 Pending 05/21/2018 Visit Plan: Cervical and thoracic s tenosis with spinal cord compression -refer for appt with Dr Marr -rx for hydrocodone for pain-start gabapentin at bedtime Soft tissue lesion-left chest-schedule CTfor further evaluation HTN-elevated today-hold adderall-monitor blood pressure 05/20/2018 Appointment: Hannah Simons WPtel: [facility]5 [phone] [place] (15 min) Moderate 05/20/2018 Patient [...] order this. 05/10/2018 Appointment: Sonia Potter WPtel: [facility]5 [facility] [place] (15 min) Moderate 05/10/2018 Patient Education: Patient Medication Summary Completed 05/10/2018 Visit Plan: Sleep apnea - rx for cp ap - actually autopap was recommended and pt given rx today. HTN - referral to dr. kapoor - pt needs stress testing. 01/15/2018 Appointment: Radha Gonzalez WPtel: [facility]5 [facility] [place] (15 min) Moderate 01/15/2018 Patient Education: Patient Medication Summary Completed 01/15/2018 Care Plan: Referral Order SNOMED-CT : 374628047 Pending 01/15/2018 Visit Plan: Well Adult - [...] month. 12/15/2017 Appointment: Radha Gonzalez WPtel: [phone] [facility] New Patient 12/15/2017 Patient Education: Patient Medication Summary Completed 12/15/2017 Care Plan: CHEST X-RAY 2VW FRONTAL&LATL LOINC : 12221-6 Pending 12/15/2017 Appointment: Radha Gonzalez WPtel: [address] [facility] (15 min) Moderate 12/08/2017 Appointment: (S) New Patient 08/13/2015 Visit Plan: steri strip placed on t humb of right hand - antibiotic shot given to patient and rx for keflex 500mg qid x 10 days given to the patient to fill prior to his trip to [place] 08/03/2015 Patient Education: Patient Medication Summary Completed 08/03/2015 Referral: External, Ordering Provider 08/03 Referral info faxed to [place]. Patient informed to be expecting a call from them with appt info Appointment Requested Referral: External, Ordering Provider Referral Appointment Requested Referral: External, Ordering Provider I called today; they will call him to schedule. Completed Referral: Armani Dunaway Referral Appointment Requested Referral: Mayte Kapoor Referral Appointment Requested Referral: [facility] WPtel: [address] Referral Appointment Requested Referral: External, Ordering Provider [...] at home. Multiple symptoms - referral to [facility] - rashes, hypogonadism, optic neuritis [...] at home. Multiple symptoms - referral to [facility] - appt in September 30, [...] to fill prior to his trip to [place] Prazosin - for night mcrae . Chronic [...] home. Cervical spine stenosis - referral to [facility]. I have also recommended a Referral to Dr. Dunaway. I have called and talked to Dr. Dunaway - he looked at the pt's imaging and agrees that getting the pt in to be seen soon would be a preferred option.
[2020-04-28] MEDS ORDERED: LACTATED RINGERS 1,000 ML IV ONE ×2 (00:20→01:15)
--- OUTSIDE RECORDS SUMMARY | 2020-04-28 00:20 | XMS REPORT | CCD ---
Author Author Nilton Gonzalez Organization [facility] Address [address] [place] [address] Phone Care Team Providers Care Home Care Music Therapist Name Role Phone PP Unavailable CCM Unavailable Summary Purpose Interface Exchange Family history Brother Diagnosis Age At Onset Alcoholism Unknown Father Diagnosis Age At Onset Hypercholesterolemia Unknown Social History Social History Element Codes Description Effective Dates Employment Unknown Curre ntly unemployed 04/20/2019 Marital status Unknown S chanda 12/15/2017 Number of children Unknown 1 12/15/[address]: 478923543 Never smoker 12/15/[address]: 234183 Currently drinks alcohol <1 per week 12/15/2017 [...] Date Stop Date Sta tus Fill Instructions acyclovir 400 mg tablet RxNorm: 425921 TAKE ONE TABLET BY MOUTH THREE TIMES A D AY NEEDED. TAKE AT ONSET OF SYMPTOMS OF COLD SORES FOR 5 DAYS. 06/27/2019 07/26/2019 Active testosterone cypiona te 200 mg/mL intramuscular oil RxNorm: 3074589 1.25 Milliliter(s) IM 2 x month 06/24/2019 10/13/2019 Active Adderall 30 mg tablet RxNorm: 483582 2 Tablet(s) PO daily 06/16/2019 07/15/2019 Active hydrocodone 10 mg-ac etaminophen 325 mg tablet RxNorm: 951143 1 Tablet(s) PO TID 06/07/2019 No Stop Date Active prazosin 1 mg capsule RxNorm: 592522 2 Capsule(s) PO QPM 06/07/2019 10/04/2019 Active prazosin 1 mg capsule RxNorm: 361781 TAKE ONE CAPSULE BY MOUTH EVERY NIGHT AT BEDTIME 06/02/2019 06/06/2019 Inactive trazodone 100 mg tablet RxNorm: 283169 TAKE ONE TABLET BY MOUTH EVERY NIGHT AT BEDTIME 05/25/2019 11/20/2019 Active hydrocodone 10 mg-ac etaminophen 325 mg tablet RxNorm: 734554 1 Tablet(s) PO Q6 as needed 05/17/2019 06/06/2019 Inactive paroxetine 40 mg tablet RxNorm: 1194884 TAKE ONE TABLET BY MOUTH DAILY 05/16/2019 11/11/2019 Ac tive hydrocodone 5 mg-fanny taminophen 325 mg tablet RxNorm: 246658 1-2 Tablet(s) PO Q6 a s needed 05/16/2019 05/16/2019 Inactive prazosin 1 mg capsule RxNorm: 880947 1 Capsule(s) PO daily 05/05/2019 06/01/2019 Inactive paroxetine 40 mg tablet RxNorm: 6383974 1 Tablet(s) PO daily 04/20/2019 05/15/2019 Inactive Adderall 30 mg tablet RxNorm: 713688 2 Tablet(s) PO daily 04/19/2019 05/18/2019 Inactive alprazolam 1 mg tablet RxNorm: 897434 1 Tablet(s) PO TID as needed 04/13/2019 06/11/2019 Inactive hydrocodone 5 mg-fanny taminophen 325 mg tablet RxNorm: 832591 1-2 Tablet(s) PO Q6 a s needed 03/21/2019 05/15/2019 Inactive Adderall 30 mg tablet RxNorm: 797672 2 Tablet(s) PO daily 03/21/2019 04/14/2019 Inactive tramadol 50 mg tablet RxNorm: 742235 1-2 Tablet(s) PO Q6 as needed 03/14/2019 No Stop Date Active hydrocodone 5 mg-fanny taminophen 325 mg tablet RxNorm: 048741 1-2 Tablet(s) PO Q6 a s needed 02/23/2019 03/20/2019 Inactive Adderall 30 mg tablet RxNorm: 906637 2 Tablet(s) PO daily 02/23/2019 03/20/2019 Inactive Adderall 30 mg tablet RxNorm: 678701 2 Tablet(s) PO daily 01/24/2019 02/22/2019 Inactive ketoconazole 2 % top ical cream RxNorm: 161312 APPLY ONE GRAM TOPICA LLY TWICE A DAY 01/12/2019 01/26/2019 In active tramadol 50 mg tablet RxNorm: 521478 1-2 Tablet(s) PO Q6 as needed 01/11/2019 03/13/2019 In active atenolol 50 mg tablet RxNorm: 841553 1.5 Tablet(s) PO BID 12/29/2018 12/23/2019 Active hydrocodone 5 mg-fanny taminophen 325 mg tablet RxNorm: 807803 1-2 Tablet(s) PO Q6 a s needed 12/29/2018 02/22/2019 Inactive Adderall 30 mg tablet RxNorm: 423249 2 Tablet(s) PO daily 12/29/2018 01/23/2019 Inactive hydrocodone 5 mg-fanny taminophen 325 mg tablet RxNorm: 689406 1-2 Tablet(s) PO Q6 a s needed 12/29/2018 12/28/2018 Inactive testosterone cypiona te 200 mg/mL intramuscular oil RxNorm: 1312922 1.25 Milliliter(s) IM 12/29/2018 12/28/2018 Inactive hydrocodone 5 mg-fanny taminophen 325 mg tablet RxNorm: 409719 1 Tablet(s) PO TID OK N 12/28/2018 12/28/2018 In active testosterone cypiona te 200 mg/mL intramuscular oil RxNorm: 0746944 1.25 Milliliter(s) IM 2 x month 12/22/2018 04/12/2019 Inactive gabapentin 300 mg ca psule RxNorm: 516672 1 Capsule(s) PO QID 12/16/2018 12/10/2019 Active testosterone cypiona te 200 mg/mL intramuscular oil RxNorm: 8387922 Milliliter(s) IM 12/16/2018 12/16/2018 In active Voltaren 1 % topical gel RxNorm: 227557 2 Gram(s) APPLY TOPIC ALLY four TIMES A DAY 12/16/2018 01/20/2019 In active trazodone 100 mg tablet RxNorm: 777609 TAKE ONE TABLET BY MOUTH EVERY NIGHT AT BEDTIME 12/07/2018 05/24/2019 Inactive hydrocodone 5 mg-fanny taminophen 325 mg tablet RxNorm: 050382 1 Tablet(s) PO TID OK N 11/29/2018 12/27/2018 In active Adderall 30 mg tablet RxNorm: 179448 2 Tablet(s) PO daily 11/29/2018 12/28/2018 Inactive clindamycin 1 %-arthur oyl peroxide 5 % topical gel RxNorm: 811576 TOP APPLY TO AFFECTED AREA(S) ON SERNA TWO TIMES A DAY 11/17/2018 No Stop Date Active testosterone cypiona te 200 mg/mL intramuscular oil RxNorm: 6709474 1 Milliliter(s) IM 2 x month 11/17/2018 12/21/2018 Inactive Zorvolex 35 mg capsule RxNorm: 7823272 1 Capsule(s) PO TID as needed for pain 11/15/2018 05/13/2019 In active ketoconazole 2 % top ical cream RxNorm: 131763 APPLY ONE GRAM TOPICA LLY TWICE A DAY 11/15/2018 11/29/2018 In active testosterone cypiona te 200 mg/mL intramuscular oil RxNorm: 1225594 1 Milliliter(s) IM 11/15/2018 11/14/2018 Inactive hydrocodone 5 mg-fanny taminophen 325 mg tablet RxNorm: 089348 1 Tablet(s) PO TID OK N 11/02/2018 11/28/2018 In active Singulair 10 mg tablet RxNorm: 061758 1 Tablet(s) PO daily 11/01/2018 07/28/2019 Active testosterone cypiona te 200 mg/mL intramuscular oil RxNorm: 0707624 1 Milliliter(s) IM 2 x month 11/01/2018 11/16/2018 Inactive Adderall 30 mg tablet RxNorm: 279991 2 Tablet(s) PO daily 10/29/2018 11/27/2018 Inactive gabapentin 300 mg ca psule RxNorm: 653655 1 Capsule(s) PO BID m ay take TID 10/19/2018 12/15/2018 In active gabapentin 300 mg ca psule RxNorm: 870800 1 Capsule(s) PO BID m ay take TID 10/19/2018 10/18/2018 In active alprazolam 1 mg tablet RxNorm: 880230 1 Tablet(s) PO TID as needed 10/15/2018 04/19/2019 Inactive testosterone cypiona te 200 mg/mL intramuscular oil RxNorm: 420830 Milliliter(s) IM 09/28/2018 09/28/2018 In active pravastatin 40 mg ta blet RxNorm: 355124 TAKE ONE TABLET BY [facility] EVERY NIGHT AT BEDTIME 09/27/2018 09/21/2019 Active Tamiflu 75 mg capsule RxNorm: 897227 1 Capsule(s) PO BID 09/24/2018 09/28/2018 Inactive Adderall 30 mg tablet RxNorm: 742842 2 Tablet(s) PO daily 09/20/2018 10/19/2018 Inactive hydrocodone 5 mg-fanny taminophen 325 mg tablet RxNorm: 831459 1 Tablet(s) PO TID OK N 09/20/2018 11/01/2018 In active testosterone cypiona te 200 mg/mL intramuscular oil RxNorm: 155116 Milliliter(s) IM 09/16/2018 09/16/2018 In active testosterone cypiona te 200 mg/mL intramuscular oil RxNorm: 194717 1 Milliliter(s) IM 09/02/2018 09/02/2018 Inactive testosterone cypiona te 200 mg/mL intramuscular oil RxNorm: 486243 Milliliter(s) IM 08/19/2018 08/19/2018 In active Adderall 30 mg tablet RxNorm: 591399 2 Tablet(s) PO daily 08/18/2018 09/16/2018 Inactive tramadol 50 mg tablet RxNorm: 246497 1-2 Tablet(s) PO Q6 as needed 08/18/2018 01/12/2019 In active Dexilant 60 mg capsu le, delayed release RxNorm: 136273 1 Capsule(s) PO BID 08/17/2018 08/11/2019 Ac tive ketoconazole 2 % top ical cream RxNorm: 981450 1 Gram(s) TOP BID 08/17/2018 08/26/2018 Inactive Zorvolex 35 mg capsule RxNorm: 1572792 1 Capsule(s) PO TID as needed for pain 08/17/2018 08/16/2018 In active atenolol 50 mg tablet RxNorm: 020444 1 Tablet(s) PO BID 08/17/2018 12/28/2018 Inactive Zorvolex 35 mg capsule RxNorm: 5913360 1 Capsule(s) PO TID as needed for pain 08/17/2018 11/14/2018 In active ketoconazole 2 % top ical cream RxNorm: 366879 1 Gram(s) TOP BID 08/02/2018 08/11/2018 Inactive hydrocortisone 2.5 % topical cream RxNorm: 511751 1 Application TOP BID 07/21/2018 No Stop Date Active Adderall 30 mg tablet RxNorm: 453428 2 Tablet(s) PO daily 07/20/2018 08/17/2018 Inactive testosterone cypiona te 200 mg/mL intramuscular oil RxNorm: 712815 Milliliter(s) IM 07/15/2018 07/15/2018 In active alprazolam 1 mg tablet RxNorm: 936476 1 Tablet(s) PO TID as needed 07/12/2018 09/07/2018 Inactive hydrocodone 5 mg-fanny taminophen 325 mg tablet RxNorm: 338452 1 Tablet(s) PO TID OK N 06/30/2018 09/19/2018 In active pravastatin 40 mg ta blet RxNorm: 793406 1 Tablet(s) PO QHS 06/18/2018 09/15/2018 Inactive Adderall 30 mg tablet RxNorm: 877530 2 Tablet(s) PO daily 06/18/2018 07/17/2018 Inactive testosterone cypiona te 200 mg/mL intramuscular oil RxNorm: 619661 Milliliter(s) IM 06/17/2018 06/17/2018 In active Voltaren 1 % topical gel RxNorm: 837065 APPLY TOPICALLY TWO T IMES A DAY 06/16/2018 07/21/2018 In active Vitamin D2 50,000 un it capsule RxNorm: 6395812 1 Capsule(s) PO QW 05/21/2018 No Stop Date Active Adderall 30 mg tablet RxNorm: 300488 2 Tablet(s) PO daily 05/21/2018 06/17/2018 Inactive testosterone cypiona te 200 mg/mL intramuscular oil RxNorm: 890676 Milliliter(s) IM 05/21/2018 05/21/2018 In active testosterone cypiona te 200 mg/mL intramuscular oil RxNorm: 1264923 1 Milliliter(s) IM monthly 05/20/2018 09/16/2018 Inactive testosterone cypiona te 200 mg/mL intramuscular oil RxNorm: 779906 1 Milliliter(s) IM monthly 05/20/2018 05/19/2018 Inactive hydrocodone 5 mg-fanny taminophen 325 mg tablet RxNorm: 324690 1 Tablet(s) PO TID OK N 05/20/2018 06/29/2018 In active Vitamin D2 50,000 un it capsule RxNorm: 9914734 1 Capsule(s) PO QW 05/18/2018 05/20/2018 Inactive triamcinolone aceton destin 0.025 % topical cream RxNorm: 1489978 1 Application TOP BI D 05/13/2018 No Stop Date Active Dexilant 60 mg capsu le, delayed release RxNorm: 421746 1 Capsule(s) PO BID 05/13/2018 08/16/2018 In active Zorvolex 35 mg capsule RxNorm: 6487598 1 Capsule(s) PO TID as needed for pain 05/12/2018 08/09/2018 In active Voltaren 1 % topical gel RxNorm: 277264 1 Application TOP BID 05/12/2018 06/15/2018 Inactive ProAir HFA 90 mcg/ac tuation aerosol inhaler RxNorm: 271370 1 Puff(s) INH QID as needed 05/10/2018 No Stop Date Active baclofen 20 mg tablet RxNorm: 147283 1 Tablet(s) PO TID as needed muscle spas ms 05/10/2018 06/08/2018 In active Singulair 10 mg tablet RxNorm: 488905 1 Tablet(s) PO daily 05/10/2018 08/07/2018 Inactive acyclovir 400 mg tablet RxNorm: 146755 1 Tablet(s) PO TID as needed take at ons et of symptoms of cold sores x 5 days 05/10/2018 06/26/2019 Inactive atenolol 50 mg tablet RxNorm: 354278 1 Tablet(s) PO BID 05/10/2018 08/07/2018 Inactive triamcinolone aceton destin 0.025 % topical cream RxNorm: 0905989 1 Application TOP BI D 05/10/2018 05/12/2018 In active paroxetine 20 mg tablet RxNorm: 6967818 2 Tablet(s) PO QHS 05/10/2018 04/19/2019 Inactive tramadol 50 mg tablet RxNorm: 061038 1 Tablet(s) PO TID as needed 05/10/2018 05/19/2018 Inactive Dexilant 60 mg capsu le, delayed release RxNorm: 050236 1 Capsule(s) PO daily 05/10/2018 05/12/2018 In active alprazolam 1 mg tablet RxNorm: 873009 1 Tablet(s) PO TID as needed 05/10/2018 08/06/2018 Inactive trazodone 100 mg tablet RxNorm: 072831 1 Tablet(s) PO QHS 05/10/2018 11/05/2018 Inactive cyclobenzaprine 10 m g tablet RxNorm: 310451 1 Tablet(s) PO TID as needed muscle spasms 05/07/2018 07/12/2018 Inactive trazodone 100 mg tablet RxNorm: 598201 1 Tablet(s) PO QHS 05/07/2018 05/09/2018 Inactive Adderall 30 mg tablet RxNorm: 522022 2 Tablet(s) PO daily 04/19/2018 05/18/2018 Inactive alprazolam 1 mg tablet RxNorm: 500133 1 Tablet(s) PO BID 04/19/2018 05/09/2018 Inactive Adderall 30 mg tablet RxNorm: 511811 2 Tablet(s) PO daily 03/26/2018 04/18/2018 Inactive paroxetine 20 mg tablet RxNorm: 6766150 2 Tablet(s) PO QHS 03/15/2018 05/09/2018 Inactive Adderall 30 mg tablet RxNorm: 971104 2 Tablet(s) PO daily 02/25/2018 03/25/2018 Inactive cyclobenzaprine 10 m g tablet RxNorm: 087079 1 Tablet(s) PO TID as needed muscle spasms 02/22/2018 05/06/2018 Inactive tramadol 50 mg tablet RxNorm: 545129 1 Tablet(s) PO TID as needed 02/22/2018 03/07/2018 Inactive tramadol 50 mg tablet RxNorm: 868587 1 Tablet(s) PO TID as needed 02/22/2018 02/21/2018 Inactive trazodone 100 mg tablet RxNorm: 023765 1 Tablet(s) PO QHS 02/03/2018 05/03/2018 Inactive trazodone 100 mg tablet RxNorm: 251666 1 Tablet(s) PO QHS 02/03/2018 02/02/2018 Inactive Adderall 30 mg tablet RxNorm: 436637 2 Tablet(s) PO daily 01/27/2018 02/18/2018 Inactive acyclovir 400 mg tablet RxNorm: 306279 1 Tablet(s) PO TID as needed take at ons et of symptoms of cold sores x 5 days 01/15/2018 05/09/2018 Inactive Bactrim DS 800 mg-16 0 mg tablet RxNorm: 167521 1 Tablet(s) PO BID 01/11/2018 01/17/2018 Inactive Bactrim DS 800 mg-16 0 mg tablet RxNorm: 233566 1 Tablet(s) PO BID 01/11/2018 01/10/2018 Inactive Dexilant 60 mg capsu le, delayed release RxNorm: 909072 1 Capsule(s) PO daily 12/23/2017 05/09/2018 In active Dexilant 60 mg capsu le, delayed release RxNorm: 689624 1 Capsule(s) PO daily 12/23/2017 12/22/2017 In active atenolol 50 mg tablet RxNorm: 616954 1 Tablet(s) PO BID 12/15/2017 05/09/2018 Inactive alprazolam 1 mg tablet RxNorm: 094691 1-1.5 Tablet(s) PO daily 12/15/2017 04/18/2018 Inactive ceftriaxone 500 mg s olution for injection RxNorm: 8591533 Inj 08/03/2015 08/03/2015 Inactive paroxetine 20 mg tablet RxNorm: 4181231 2 Tablet(s) PO QHS 08/01/2015 10/29/2015 Inactive pravastatin 40 mg ta blet RxNorm: 361777 1/2 Tablet(s) PO QHS 08/01/2015 12/14/2017 Inactive Trazadone 100mg 100 mg RxNorm: 1 PO daily 08/01/2015 11/27/2015 Inactive Trazadone 100mg 100 mg RxNorm: 1 PO daily 08/01/2015 05/04/2018 Inactive atenolol 50 mg tablet RxNorm: 242679 1 Tablet(s) PO daily 08/01/2015 10/29/2015 Inactive Fish Oil 360 mg-1,20 0 mg capsule RxNorm: 781034 1 Capsule(s) PO BID No Start Date Active Zyrtec 10 mg tablet RxNorm: 1629041 1 Tablet(s) PO daily No Start Date Active pravastatin 40 mg ta blet RxNorm: 386815 1/2 Tablet(s) PO QHS No Start Date 07/31/2015 Inactive Benadryl Allergy 25 mg tablet RxNorm: 4553455 1 Tablet(s) PO daily No Start Date 07/19/2018 Inactive Adderall 30 mg tablet RxNorm: 669942 2 Tablet(s) PO daily No Start Date 01/26/2018 Inactive Aspirin Low Dose 81 mg tablet,delayed release RxNorm: 174538 1 Tablet(s) PO BID No Start Date 07/19/2018 Inactive Singulair 10 mg tablet RxNorm: 075099 1 Tablet(s) PO daily No Start Date 05/09/2018 Inactive cyclobenzaprine 10 m g tablet RxNorm: 972163 1 Tablet(s) PO TID as needed muscle spasms No Start Date 02/21/2018 Inactive Trazadone 100mg 100 mg RxNorm: 1 PO daily No Start Date 07/31/2015 Inactive ibuprofen 800 mg tablet RxNorm: 416884 1 Tablet(s) PO BID -TID No Start Date 06/06/2019 Inactive clindamycin 1 %-arthur oyl peroxide 5 % topical gel RxNorm: 677325 TOP APPLY TO AFFECTED AREA(S) ON SERNA TWO TIMES A DAY No Start Date 11/16/2018 Inactive hydrocortisone 2.5 % topical cream RxNorm: 447354 1 Application TOP BID No Start Date 07/20/2018 Inactive alprazolam 1 mg tablet RxNorm: 395227 2 Tablet(s) PO daily No Start Date 12/14/2017 Inactive tramadol 50 mg tablet RxNorm: 870532 1-2 Tablet(s) PO Q6 as needed No Start Date 08/17/2018 Inactive Vitamin D2 50,000 un it capsule RxNorm: 6902521 1 Capsule(s) PO QW No Start Date 05/17/2018 Inactive pantoprazole 40 mg t ablet,delayed release RxNorm: 377014 1 Tablet(s) PO BID No Start Date 12/22/2017 Inactive atenolol 50 mg tablet RxNorm: 578104 1 Tablet(s) PO daily No Start Date 07/31/2015 Inactive hydrocodone 10 mg-ac etaminophen 325 mg tablet RxNorm: 053683 1 Tablet(s) PO Q6 as needed No Start Date 05/16/2019 Inactive paroxetine 20 mg tablet RxNorm: 663993 2 Tablet(s) PO QHS No Start Date 07/31/2015 Inactive Medication Administered Medication Codes Instruc tions Start Date Status testosterone cypionate 200 mg/mL intramuscular oil RxNorm: 3575861 1.25Milliliter 12/29/2018 No longer Active testosterone cypionate 200 mg/mL intramuscular oil RxNorm: 9046879 Milliliter 12/16/2018 No longer Active testosterone cypionate 200 mg/mL intramuscular oil RxNorm: 2311208 1Milliliter 11/15/2018 No longer Active testosterone cypionate 200 mg/mL intramuscular oil RxNorm: 786385 Milliliter 09/28/2018 No longer Active testosterone cypionate 200 mg/mL intramuscular oil RxNorm: 500245 Milliliter 09/16/2018 No longer Active testosterone cypionate 200 mg/mL intramuscular oil RxNorm: 598709 1Milliliter 09/02/2018 No longer Active testosterone cypionate 200 mg/mL intramuscular oil RxNorm: 389225 Milliliter 08/19/2018 No longer Active testosterone cypionate 200 mg/mL intramuscular oil RxNorm: 768235 Milliliter 07/15/2018 No longer Active testosterone cypionate 200 mg/mL intramuscular oil RxNorm: 043676 Milliliter 06/17/2018 No longer Active testosterone cypionate 200 mg/mL intramuscular oil RxNorm: 056752 Milliliter 05/21/2018 No longer Active ceftriaxone 500 mg solution for injection RxNorm: 6579962 08/03/2015 No longer A ctive Immunizations Vaccine [...] Code Result Date Comp. Metabolic Panel (14) 06386 GLUCOSE 117 mg/dL 12/17/2018 Comp. Metabolic Panel (14) 39870 BUN 17 mg/dL 12/17/2018 Comp. Metabolic Panel (14) 34331 CREATININE 0.99 mg/dL 12/17/2018 Comp. Metabolic Panel (14) 09836 SODIUM 137 mmol/L 12/17/2018 Comp. Metabolic Panel (14) 14376 POTASSIUM 4.6 mmol/L 12/17/2018 Comp. Metabolic Panel (14) 92854 CHLORIDE 102 mmol/L 12/17/2018 Comp. Metabolic Panel (14) 01994 CARBON DIOXIDE 21 mmol/L 12/17/2018 Comp. Metabolic Panel (14) 45530 CALCIUM 9.4 mg/dL 12/17/2018 Comp. Metabolic Panel (14) 35766 TOTAL PROTEIN 7.5 g/dL 12/17/2018 Comp. Metabolic Panel (14) 66726 ALBUMIN 5.1 g/dL 12/17/2018 Comp. Metabolic Panel (14) 65041 ALKALINE PHOSPHATASE 79 U/L 12/17/2018 Comp. Metabolic Panel (14) 81790 TOTAL BILIRUBIN 0.5 mg/dL 12/17/2018 Comp. Metabolic Panel (14) 61873 SGOT (AST) 34 U/L 12/17/2018 Comp. Metabolic Panel (14) 15070 SGPT (ALT) 40 U/L 12/17/2018 Comp. Metabolic Panel (14) 41415 eGFR (mL/min/1.73m2) 115 12/17/2018 Comp. Metabolic Panel (14) 39655 INTERPRETATION 12/17/2018 Testosterone Serum 793731 TESTOSTERONE 96.8 ng/dL 12/17/2018 Cbc With Differential/Platelet 93768 WBC 5.61 thou/uL 9 Cbc With Differential/Platelet 85010 RBC 5.53 mil/uL 12/17/2018 Cbc With Differential/Platelet 56273 HEMOGLOBIN 15.4 g/dL 12/17/2018 Cbc With Differential/Platelet 90599 HEMATOCRIT 48.1 % 12/17/2018 Cbc With Differential/Platelet 56355 MCV 87.0 fL 12/17/2018 Cbc With Differential/Platelet 21902 MCH 27.8 pg 12/17/2018 Cbc With Differential/Platelet 54874 MCHC 32.0 g/dL 12/17/2018 Cbc With Differential/Platelet 15909 RDW-CV 13.9 % 12/17/2018 Cbc With Differential/Platelet 45551 PLATELET COUNT 294 thou/uL 12/17/2018 Cbc With Differential/Platelet 20968 NEUTROPHIL % 71.2 % 12/17/2018 Cbc With Differential/Platelet 89919 LYMPHOCYTE % 22.2 % 12/17/2018 Cbc With Differential/Platelet 05038 MONOCYTE % 5.4 % 12/17/2018 Cbc With Differential/Platelet 22355 EOS % 0.9 % 12/17/2018 Cbc With Differential/Platelet 79432 BASO % 0.4 % 12/17/2018 Cbc With Differential/Platelet 05242 NEUTROPHIL ABS # 3.99 thou/uL 12/17/2018 Cbc With Differential/Platelet 99835 LYMPH ABS # 1.25 thou/uL 12/17/2018 Cbc With Differential/Platelet 01594 MONOCYTE ABS # 0.30 thou/uL 12/17/2018 Cbc With Differential/Platelet 98153 EOS ABS # 0.05 thou/uL 9 Cbc With Differential/Platelet 15353 BASO ABS # 0.02 thou/uL 12/17/2018 Lipid Panel 59593 CHOLES TEROL 227 mg/dL 12/17/2018 Lipid Panel 31281 TRIGLY CERIDES 229 mg/dL 12/17/2018 Lipid Panel 33913 HDL 41 mg/dL 12/17/2018 Lipid Panel 54334 CHOLES TEROL/HDL 5.54 12/17/2018 Lipid Panel 37024 LDL (C ALCULATED) 140 mg/dL 12/17/2018 Lipid Panel 24932 LDL/HDL 3.41 12/17/2018 Lipid Panel 58854 INTERP RETATION 12/17/2018 Tsh 876655 TSH 1.190 uIU/mL 12/17/2018 Testosterone Serum 335839 TESTOSTERONE 44.1 ng/dL 08/18/2018 Hemoglobin 713687 WBC 7.62 thou/uL 08/17/2018 Hemoglobin 032199 RBC 5.23 mil/uL 08/17/2018 Hemoglobin 931453 HEMOGL OBIN 15.0 g/dL 08/17/2018 Hemoglobin 178257 HEMATO CRIT 45.0 % 08/17/2018 Hemoglobin 850487 MCV 86.0 fL 08/17/2018 Hemoglobin 253238 MCH 28.7 pg 08/17/2018 Hemoglobin 735579 MCHC 33.3 g/dL 08/17/2018 Hemoglobin 217745 RDW-CV 12.9 % 08/17/2018 Hemoglobin 350300 PLATEL ET COUNT 313 thou/uL 08/17/2018 Hematocrit 110127 WBC 7.62 thou/uL 08/17/2018 Hematocrit 325616 RBC 5.23 mil/uL 08/17/2018 Hematocrit 866575 HEMOGL OBIN 15.0 g/dL 08/17/2018 Hematocrit 595793 HEMATO CRIT 45.0 % 08/17/2018 Hematocrit 514706 MCV 86.0 fL 08/17/2018 Hematocrit 394369 MCH 28.7 pg 08/17/2018 Hematocrit 068510 MCHC 33.3 g/dL 08/17/2018 Hematocrit 995703 RDW-CV 12.9 % 08/17/2018 Hematocrit 431344 PLATEL ET COUNT 313 thou/uL 08/17/2018 Culture Mrsa 279951 MRSA CULTURE SEE NOTES 06/21/2018 Comp. Metabolic Panel (14) 88057 GLUCOSE 101 mg/dL 06/18/2018 Comp. Metabolic Panel (14) 32656 BUN 18 mg/dL 06/18/2018 Comp. Metabolic Panel (14) 37784 CREATININE 0.99 mg/dL 06/18/2018 Comp. Metabolic Panel (14) 46527 SODIUM 141 mmol/L 06/18/2018 Comp. Metabolic Panel (14) 45383 POTASSIUM 4.3 mmol/L 06/18/2018 Comp. Metabolic Panel (14) 97286 CHLORIDE 103 mmol/L 06/18/2018 Comp. Metabolic Panel (14) 16845 CARBON DIOXIDE 23 mmol/L 06/18/2018 Comp. Metabolic Panel (14) 72172 CALCIUM 9.8 mg/dL 06/18/2018 Comp. Metabolic Panel (14) 62512 TOTAL PROTEIN 7.1 g/dL 06/18/2018 Comp. Metabolic Panel (14) 32950 ALBUMIN 5.2 g/dL 06/18/2018 Comp. Metabolic Panel (14) 93203 ALKALINE PHOSPHATASE 65 U/L 06/18/2018 Comp. Metabolic Panel (14) 11875 TOTAL BILIRUBIN 0.6 mg/dL 06/18/2018 Comp. Metabolic Panel (14) 70181 SGOT (AST) 21 U/L 06/18/2018 Comp. Metabolic Panel (14) 26892 SGPT (ALT) 24 U/L 06/18/2018 Comp. Metabolic Panel (14) 73527 eGFR (mL/min/1.73m2) 115 06/18/2018 Comp. Metabolic Panel (14) 10102 INTERPRETATION 06/18/2018 Cbc With Differential/Platelet 11131 WBC 4.55 thou/uL 8 Cbc With Differential/Platelet 11328 RBC 5.13 mil/uL 06/18/2018 Cbc With Differential/Platelet 40039 HEMOGLOBIN 14.4 g/dL 06/18/2018 Cbc With Differential/Platelet 42602 HEMATOCRIT 44.1 % 06/18/2018 Cbc With Differential/Platelet 62292 MCV 85.9 fL 06/18/2018 Cbc With Differential/Platelet 01810 MCH 28.1 pg 06/18/2018 Cbc With Differential/Platelet 22292 MCHC 32.7 g/dL 06/18/2018 Cbc With Differential/Platelet 42221 RDW-CV 13.4 % 06/18/2018 Cbc With Differential/Platelet 54641 PLATELET COUNT 287 thou/uL 06/18/2018 Cbc With Differential/Platelet 05759 NEUTROPHIL % 53.9 % 06/18/2018 Cbc With Differential/Platelet 60677 LYMPHOCYTE % 36.1 % 06/18/2018 Cbc With Differential/Platelet 49956 MONOCYTE % 7.4 % 06/18/2018 Cbc With Differential/Platelet 70830 EOS % 1.9 % 06/18/2018 Cbc With Differential/Platelet 03859 BASO % 0.8 % 06/18/2018 Cbc With Differential/Platelet 91771 NEUTROPHIL ABS # 2.45 thou/uL 06/18/2018 Cbc With Differential/Platelet 68118 LYMPH ABS # 1.64 thou/uL 06/18/2018 Cbc With Differential/Platelet 49007 MONOCYTE ABS # 0.34 thou/uL 06/18/2018 Cbc With Differential/Platelet 24813 EOS ABS # 0.09 thou/uL 8 Cbc With Differential/Platelet 80304 BASO ABS # 0.04 thou/uL 06/18/2018 Review [...] normal 04/20/2019 None Full Exam - General 1995 Ears/Nose/Throat otoscopic exam Overall: external auditory canals clear 04/20/2019 None Full Exam - General 1994 Ears/Nose/Throat otoscopic exam Overall: tympanic membranes clear 04/20/2019 None Full Exam - General 1994 Ears/Nose/Throat lips/teeth/gingiva Overall: benign lips 04/20/2019 None Full Exam - General 1995 Ears/Nose/Throat oral cavity/pharynx/larynx Overall: oral mucosa clear 04/20/2019 None Full Exam - General 1995 Ears/Nose/Throat [...] 12/29/2018 None Full Exam - General 1995 Ears/Nose/Throat [...] Procedure Codes Date THER/PROPH/DIAG INJ SC/IM CPT-4: 28405 12/29/2018 THER/PROPH/DIAG INJ SC/IM CPT-4: 29064 12/16/2018 THER/PROPH/DIAG INJ SC/IM CPT-4: 87701 11/15/2018 THER/PROPH/DIAG INJ SC/IM CPT-4: 11091 09/28/2018 THER/PROPH/DIAG INJ SC/IM CPT-4: 77046 09/16/2018 THER/PROPH/DIAG INJ SC/IM CPT-4: 28717 09/02/2018 THER/PROPH/DIAG INJ SC/IM CPT-4: 50635 08/19/2018 IMMUNIZATION ADMIN CPT- 4: 68718 08/02/2018 FLU VAC NO PRSV 4 VA L 3 YRS+ CPT-4: 79777 08/02/2018 THER/PROPH/DIAG INJ SC/IM CPT-4: 07947 07/15/2018 THER/PROPH/DIAG INJ SC/IM CPT-4: 98791 06/17/2018 THER/PROPH/DIAG INJ SC/IM CPT-4: 41785 05/21/2018 THER/PROPH/DIAG INJ SC/IM CPT-4: 51528 08/03/2015 ROCEPHIN, PER 250 MG CPT-4: J0696 08/03/2015 Vital Signs Date Vital 06/07/2019 Blood Pressure 1: 160/88 Code: 8480-6 BMI: 36.0 Code: 93771-5 Heart Rate 1: 70 bpm Height: 5'7" SpO2: 94% Weight: 230 lbs 05/05/2019 Heigh t: Weight: 04/20/2019 Blood Pressure 1: 160/84 Code: 8480-6 BMI: 34.0 Code: 05748-0 Heart Rate 1: 82 bpm Height: 5'7" SpO2: 97% Weight: 216 lbs 13 o z 12/29/2018 Blood Pressure 1: 144/90 Code: 8480-6 BMI: 34.8 Code: 83969-9 Heart Rate 1: 91 bpm Height: 5'7" SpO2: 98% Weight: 222 lbs 12/20/2018 Blood Pressure 1: 124/76 Code: 8480-6 BMI: 35.4 Code: 65942-3 Heart Rate 1: 79 bpm Height: 5'7" SpO2: 99% Weight: 226 lbs 12/16/2018 Blood Pressure 1: 160/90 Code: 8480-6 BMI: 35.4 Code: 88601-9 Heart Rate 1: 90 bpm Height: 5'7" SpO2: 95% Weight: 226 lbs 11/01/2018 Blood Pressure 1: 146/82 Code: 8480-6 BMI: 36.0 Code: 87844-5 Heart Rate 1: 87 bpm Height: 5'7" SpO2: 98% Weight: 230 lbs 09/24/2018 Blood Pressure 1: 140/82 Code: 8480-6 BMI: 36.0 Code: 07827-0 Heart Rate 1: 86 bpm Height: 5'7" SpO2: 98% Temperature: 37.1 (C ) / 98.7 (F) Weight: 230 lbs 08/16/2018 Blood Pressure 1: 148/82 Code: 8480-6 Blood Pressure 2: 157/92 Code: 8480-6 BMI: 35.9 Code: 47797-2 Heart Rate 1: 72 bpm Height: 5'7" SpO2: 96% Weight: 229 lbs 08/02/2018 Blood Pressure 1: 142/86 Code: 8480-6 BMI: 35.2 Code: 54121-1 Heart Rate 1: 101 bpm Height: 5'7" SpO2: 97% Weight: 225 lbs 05/31/2018 Blood Pressure 1: 134/82 Code: 8480-6 BMI: 35.4 Code: 63586-0 Heart Rate 1: 91 bpm Height: 5'7" SpO2: 96% Weight: 226 lbs 05/20/2018 Blood Pressure 1: 160/100 Code: 8480-6 BMI: 35.2 Code: 29990-5 Heart Rate 1: 89 bpm Height: 5'7" SpO2: 98% Weight: 225 lbs 05/10/2018 Blood Pressure 1: 124/70 Code: 8480-6 BMI: 35.1 Code: 09497-5 Heart Rate 1: 93 bpm Height: 5'7" SpO2: 99% Weight: 224 lbs 01/15/2018 Blood Pressure 1: 142/92 Code: 8480-6 BMI: 36.3 Code: 45661-0 Heart Rate 1: 77 bpm Height: 5'7" SpO2: 98% Weight: 232 lbs 12/15/2017 Blood Pressure 1: 156/98 Code: 8480-6 BMI: 36.2 Code: 17552-3 Heart Rate 1: 87 bpm Height: 5'7" [...] eye 01/15/2018 None vision change Quality ac [place] 01/15/2018 None vision change Quality lo [...] vision 12/15/2017 None vision change Quality ac [place] [employer] 12/15/2017 None vision change Onset and Resolution sudden in onset 12/15/2017 None vision change Onset of Symptom 3.5 weeks ago 12/15/2017 None vision change Limitation on Activities severely limits vision 12/15/2017 None vision change Triggers n o known associated factors 12/15/2017 None Advance Directives No Advance Directive data Encounters Encounter Performer Loca tion Codes Date ([id number]) 07824 EST. P ATIENT, LEVEL IV Diagnosis: Cervicalgia[ICD10: M54.2] Diagnosis: Pain in thoracic spine[ICD10: M54.6] Diagnosis: Spinal stenosis, thoracic region[ICD10: M48.04] Diagnosis: Spinal stenosis, cervical region[ICD10: M48.02] Diagnosis: Changes in skin texture[ICD10: R23.4] Radha Gonzalez MD, [facility] CPT-4: 62145 06/07/2019 [id number] EST. PATIENT, LEVEL IV Diagnosis: Cervicalgia[ICD10: M54.2] Diagnosis: Other fatigue[ICD10: R53.83] Diagnosis: Essential (primary) hypertension[ICD10: I10] Diagnosis: Major depressive disorder, recurrent, moderate[ICD10: F33.1] [facility] CPT-4: 57453 05/05/2019 73212 04419 EST. P ATIENT, LEVEL III Diagnosis: Essential (primary) hypertension[ICD10: I10] Diagnosis: Major depressive disorder, recurrent, moderate[ICD10: F33.1] Diagnosis: Dysphagia, pharyngeal phase[ICD10: R13.13] Radha Gonzalez MD, [facility] CPT-4: 27620 04/20/2019 ([id number]) 49635 EST. 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 PATIENT, LEVEL III Diagnosis: Pain in right arm[ICD10: M79.601] Sonia Gonzalez MD, [facility] CPT-4: 10390 12/20/2018 ([id number]) 18444 EST. 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 PATIENT, LEVEL III Diagnosis: Acute upper respiratory infection, unspecified[ICD10: J06.9] Diagnosis: Other allergic rhinitis[ICD10: J30.89] Sonia Gonzalez MD, [facility] CPT-4: 55732 09/24/2018 ([id number]) 34840 EST. 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 P ATIENT, LEVEL IV Diagnosis: Essential (primary) hypertension[ICD10: I10] Diagnosis: Cervicalgia[ICD10: M54.2] Radha Gonzalez MD, [facility] CPT-4: 01389 05/31/2018 ([id number]) 14622 EST. 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 06/07/2019 Appointment: Radha Gonzalez WPtel: [address] [place], [place] [phone] (15 min) Moderate 06/07/2019 Patient Education: Patient [...] of over-medication. 05/05/2019 Appointment: Sonia Potter WPtel: [facility] (30 min) Complex 05/05/2019 Appointment: Radha Gonzalez WPtel: [facility] (15 min) Moderate 05/05/2019 Patient Education: [...] 40mg daily. 04/20/2019 Appointment: Radha Gonzalez WPtel: [facility] (15 min) Moderate 04/20/2019 Patient Education: Patient [...] testosterone injections. 12/29/2018 Appointment: [facility] Gonzalez [facility]Ptel[facility] (15 min) Moderate 12/29/2018 Patient Education: Patient Medication Summary Completed 12/29/2018 Patient Education: .Cervicalgia Neck Pain Completed 12/29/2018 Patient Education: Patient Medication Summary Completed 12/21/2018 Care Plan: %Hba1C add to blood from 12/17 LOINC : 97359-2 Pending 12/21/2018 Visit Plan: Right arm pain - dayna deformity noted - will refer to ortho - The pt is to use prn antiinflammatories to manage acute pain. The patient is to call the office if the pain is worsening or does not improve. 12/20/2018 [phone] (15 min) Moderate 12/20/2018 Patient Education: Patient [...] with testosterone. 12/16/2018 Appointment: Radha Gonzalez WPtel: [facility] (15 min) Moderate 12/16/2018 Patient Education: Patient [...] as needed. 11/01/2018 Appointment: Radha Gonzalez WPtel: [facility] (15 min) Moderate 11/01/2018 Patient Education: [...] allergy spray. 09/24/2018 Appointment: Sonia Potter WPtel: [phone] [facility] (15 min) Moderate 09/24/2018 Patient Education: [...] at home. Multiple symptoms - referral to [facility] - appt in September 30, 2018. 08/16/2018 Appointment: [facility]el[phone] (15 min) Moderate 08/16/2018 Patient Education: [...] at home. Multiple symptoms - referral to [facility] - rashes, hypogonadism, optic neuritis - all points to possible autoimmune syndrome. Spinal stenosis - of thoracic region - pt to talk to Dr. Dunaway about referral to a different specialist for his mid- back. Hypogonadism - continue with testosterone. Flu shot given today in clinic. 08/02/2018 Appointment: Radha Gonzalez WPtel: [phone] [facility] (15 min) Moderate 08/02/2018 Patient Education: Patient Medication Summary Completed 08/02/2018 Care Plan: Referral Order SNOMED-CT : [id number] Pending 08/02/2018 Appointment: Injection 07/15/2018 Patient Education: [...] home. Cervical spine stenosis - referral to [facility] physical therapy. I have also recommended a Referral to Dr. Dunaway. I have called and talked to Dr. Dunaway - he looked at the pt's imaging and agrees that getting the pt in to be seen soon would be a preferred option. 05/31/2018 Appointment: Radha Gonzalez WPtel: [phone] [facility] (15 min) Moderate 05/31/2018 Patient Education: Patient Medication Summary Completed 05/31/2018 Care Plan: Referral Order SNOMED-CT : 961841464 Pending 05/31/2018 Care Plan: Referral Order SNOMED-CT : 464035155 Pending 05/31/2018 Appointment: Injection 05/21/2018 Patient Education: Patient Medication Summary Completed 05/21/2018 Care Plan: Referral Order SNOMED-CT : 821470977 Pending 05/21/2018 Visit Plan: Cervical and thoracic s tenosis with spinal cord compression -refer for appt with Dr Marr -rx for hydrocodone for pain-start gabapentin at bedtime Soft tissue lesion-left chest-schedule CTfor further evaluation HTN-elevated today-hold adderall-monitor blood pressure 05/20/2018 Appointment: Hannah Simons WPtel: [phone] [phone] [place] (15 min) Moderate 05/20/2018 Patient Education: Patient Medication Summary Completed 05/20/2018 Visit Plan: Hypertension - well nicolasa armstrong - continue with current medications, continue with [...] order this. 05/10/2018 Appointment: Sonia Potter WPtel: [phone] [facility] [place] (15 min) Moderate 05/10/2018 Patient Education: Patient Medication Summary Completed 05/10/2018 Visit Plan: Sleep apnea - rx for cp ap - actually autopap was recommended and pt given rx today. HTN - referral to dr. kapoor - pt needs stress testing. 01/15/2018 Appointment: Radha Gonzalez WPtel: [phone] [facility] [place] (15 min) Moderate 01/15/2018 Patient Education: Patient Medication Summary Completed 01/15/2018 Care Plan: Referral Order SNOMED-CT : 689573427 Pending 01/15/2018 Visit Plan: Well Adult - [...] month. 12/15/2017 Appointment: Radha Gonzalez WPtel: [phone] [facility]66[facility] New Patient 12/15/2017 Patient Education: Patient Medication Summary Completed 12/15/2017 Care Plan: CHEST X-RAY 2VW FRONTAL&LATL LOINC : 75050-8 Pending 12/15/2017 Appointment: Radha Gonzalez WPtel: [phone] (15 min) Moderate 12/08/2017 Appointment: (S) New Patient 08/13/2015 Visit Plan: steri strip placed on t humb of right hand - antibiotic shot given to patient and rx for keflex 500mg qid x 10 days given to the patient to fill prior to his trip to [place] 08/03/2015 Patient Education: Patient Medication Summary Completed 08/03/2015 Referral: External, Ordering Provider 08/03 Referral info faxed to [place]. Patient informed to be expecting a call from them with appt info Appointment Requested Referral: External, Ordering Provider Referral Appointment Requested Referral: External, Ordering Provider I called today; they will call him to schedule. Completed Referral: Armani Dunaway Referral Appointment Requested Referral: Mayte Kapoor Referral Appointment Requested Referral: [facility] WPtel: [phone] Referral Appointment Requested Referral: External, Ordering Provider Referral Appointment Requested Instructions Comment . Hypertension - wel l controlled - [...] and understands the consequences of over-medication. . steri strip placed on thumb of right hand - antibiotic shot given to patient and rx for keflex 500mg qid x 10 days given to the patient to fill prior to his trip to [place] . Chronic neck and b ack pain [...] at home. Multiple symptoms - referral to [facility] - appt in September [...] at home. Multiple symptoms - referral to [facility] - rashes, hypogonadism, optic [...] is worsening or does not improve. . Sleep apnea - rx f or cpap - actually autopap was recommended and pt given rx today. HTN - referral to dr. kapoor - pt needs stress testing. . Well Adult - pt wa s [...]
--- OUTSIDE RECORDS SUMMARY | 2020-04-28 00:21 | XMS REPORT | CCD ---
Author Author Nilton Gonzalez Organization [facility] Address [address] [place] [address] Phone Care Team Providers Care Group Exercise Manager Name Role Phone PP Unavailable CCM Unavailable Summary Purpose Interface Exchange Family history Brother Diagnosis Age At Onset Alcoholism Unknown Father Diagnosis Age At Onset Hypercholesterolemia Unknown Social History Social History Element Codes Description Effective Dates Employment Unknown Curre ntly unemployed 04/20/2019 Marital status Unknown S chanda 12/15/2017 Number of children Unknown 1 12/15/[address]: 634755454 Never smoker 12/15/[address]: 431152 Currently drinks alcohol <1 per week 12/15/2017 [...] Date Stop Date Sta tus Fill Instructions testosterone cypiona te 200 mg/mL intramuscular oil RxNorm: 4749292 1.25 Milliliter(s) IM 2 x month 06/24/2019 10/13/2019 Active Adderall 30 mg tablet RxNorm: 916329 2 Tablet(s) PO daily 06/16/2019 07/15/2019 Active hydrocodone 10 mg-ac etaminophen 325 mg tablet RxNorm: 693827 1 Tablet(s) PO TID 06/07/2019 No Stop Date Active prazosin 1 mg capsule RxNorm: 140433 2 Capsule(s) PO QPM 06/07/2019 10/04/2019 Active prazosin 1 mg capsule RxNorm: 748028 TAKE ONE CAPSULE BY MOUTH EVERY NIGHT AT BEDTIME 06/02/2019 06/06/2019 Inactive trazodone 100 mg tablet RxNorm: 817363 TAKE ONE TABLET BY MOUTH EVERY NIGHT AT BEDTIME 05/25/2019 11/20/2019 Active hydrocodone 10 mg-ac etaminophen 325 mg tablet RxNorm: 335253 1 Tablet(s) PO Q6 as needed 05/17/2019 06/06/2019 Inactive paroxetine 40 mg tablet RxNorm: 5687278 TAKE ONE TABLET BY MOUTH DAILY 05/16/2019 11/11/2019 Ac tive hydrocodone 5 mg-fnany taminophen 325 mg tablet RxNorm: 313718 1-2 Tablet(s) PO Q6 a s needed 05/16/2019 05/16/2019 Inactive prazosin 1 mg capsule RxNorm: 893888 1 Capsule(s) PO daily 05/05/2019 06/01/2019 Inactive paroxetine 40 mg tablet RxNorm: 6335974 1 Tablet(s) PO daily 04/20/2019 05/15/2019 Inactive Adderall 30 mg tablet RxNorm: 813054 2 Tablet(s) PO daily 04/19/2019 05/18/2019 Inactive alprazolam 1 mg tablet RxNorm: 335777 1 Tablet(s) PO TID as needed 04/13/2019 06/11/2019 Inactive hydrocodone 5 mg-fanny taminophen 325 mg tablet RxNorm: 561711 1-2 Tablet(s) PO Q6 a s needed 03/21/2019 05/15/2019 Inactive Adderall 30 mg tablet RxNorm: 222873 2 Tablet(s) PO daily 03/21/2019 04/14/2019 Inactive tramadol 50 mg tablet RxNorm: 651214 1-2 Tablet(s) PO Q6 as needed 03/14/2019 No Stop Date Active hydrocodone 5 mg-fanny taminophen 325 mg tablet RxNorm: 640261 1-2 Tablet(s) PO Q6 a s needed 02/23/2019 03/20/2019 Inactive Adderall 30 mg tablet RxNorm: 251315 2 Tablet(s) PO daily 02/23/2019 03/20/2019 Inactive Adderall 30 mg tablet RxNorm: 371120 2 Tablet(s) PO daily 01/24/2019 02/22/2019 Inactive ketoconazole 2 % top ical cream RxNorm: 477023 APPLY ONE GRAM TOPICA LLY TWICE A DAY 01/12/2019 01/26/2019 In active tramadol 50 mg tablet RxNorm: 713666 1-2 Tablet(s) PO Q6 as needed 01/11/2019 03/13/2019 In active atenolol 50 mg tablet RxNorm: 358719 1.5 Tablet(s) PO BID 12/29/2018 12/23/2019 Active hydrocodone 5 mg-fanny taminophen 325 mg tablet RxNorm: 588611 1-2 Tablet(s) PO Q6 a s needed 12/29/2018 02/22/2019 Inactive Adderall 30 mg tablet RxNorm: 782207 2 Tablet(s) PO daily 12/29/2018 01/23/2019 Inactive hydrocodone 5 mg-fanny taminophen 325 mg tablet RxNorm: 307629 1-2 Tablet(s) PO Q6 a s needed 12/29/2018 12/28/2018 Inactive testosterone cypiona te 200 mg/mL intramuscular oil RxNorm: 3509459 1.25 Milliliter(s) IM 12/29/2018 12/29/2018 Inactive hydrocodone 5 mg-fanny taminophen 325 mg tablet RxNorm: 116706 1 Tablet(s) PO TID [place] N 12/28/2018 12/28/2018 In active testosterone cypiona te 200 mg/mL intramuscular oil RxNorm: 8275118 1.25 Milliliter(s) IM 2 x month 12/22/2018 04/12/2019 Inactive gabapentin 300 mg ca psule RxNorm: 569786 1 Capsule(s) PO QID 12/16/2018 12/10/2019 Active testosterone cypiona te 200 mg/mL intramuscular oil RxNorm: 4317675 Milliliter(s) IM 12/16/2018 12/16/2018 In active Voltaren 1 % topical gel RxNorm: 208559 2 Gram(s) APPLY TOPIC ALLY four TIMES A DAY 12/16/2018 01/20/2019 In active trazodone 100 mg tablet RxNorm: 497917 TAKE ONE TABLET BY MOUTH EVERY NIGHT AT BEDTIME 12/07/2018 05/24/2019 Inactive hydrocodone 5 mg-fanny taminophen 325 mg tablet RxNorm: 857159 1 Tablet(s) PO TID [place] N 11/29/2018 12/27/2018 In active Adderall 30 mg tablet RxNorm: 320703 2 Tablet(s) PO daily 11/29/2018 12/28/2018 Inactive clindamycin 1 %-arthur oyl peroxide 5 % topical gel RxNorm: 240490 TOP APPLY TO AFFECTED AREA(S) ON SERNA TWO TIMES A DAY 11/17/2018 No Stop Date Active testosterone cypiona te 200 mg/mL intramuscular oil RxNorm: 9185391 1 Milliliter(s) IM 2 x month 11/17/2018 12/21/2018 Inactive Zorvolex 35 mg capsule RxNorm: 8700472 1 Capsule(s) PO TID as needed for pain 11/15/2018 05/13/2019 In active ketoconazole 2 % top ical cream RxNorm: 499338 APPLY ONE GRAM TOPICA LLY TWICE A DAY 11/15/2018 11/29/2018 In active testosterone cypiona te 200 mg/mL intramuscular oil RxNorm: 9666471 1 Milliliter(s) IM 11/15/2018 11/14/2018 Inactive hydrocodone 5 mg-fanny taminophen 325 mg tablet RxNorm: 714896 1 Tablet(s) PO TID [place] N 11/02/2018 11/28/2018 In active Singulair 10 mg tablet RxNorm: 601752 1 Tablet(s) PO daily 11/01/2018 07/28/2019 Active testosterone cypiona te 200 mg/mL intramuscular oil RxNorm: 5265650 1 Milliliter(s) IM 2 x month 11/01/2018 11/16/2018 Inactive Adderall 30 mg tablet RxNorm: 661350 2 Tablet(s) PO daily 10/29/2018 11/27/2018 Inactive gabapentin 300 mg ca psule RxNorm: 549747 1 Capsule(s) PO BID m ay take TID 10/19/2018 12/15/2018 In active gabapentin 300 mg ca psule RxNorm: 758083 1 Capsule(s) PO BID m ay take TID 10/19/2018 10/18/2018 In active alprazolam 1 mg tablet RxNorm: 939828 1 Tablet(s) PO TID as needed 10/15/2018 04/19/2019 Inactive testosterone cypiona te 200 mg/mL intramuscular oil RxNorm: 489308 Milliliter(s) IM 09/28/2018 09/28/2018 In active pravastatin 40 mg ta blet RxNorm: 175582 TAKE ONE TABLET BY [facility] EVERY NIGHT AT BEDTIME 09/27/2018 09/21/2019 Active Tamiflu 75 mg capsule RxNorm: 701338 1 Capsule(s) PO BID 09/24/2018 09/28/2018 Inactive Adderall 30 mg tablet RxNorm: 879146 2 Tablet(s) PO daily 09/20/2018 10/19/2018 Inactive hydrocodone 5 mg-fanny taminophen 325 mg tablet RxNorm: 006013 1 Tablet(s) PO TID [place] N 09/20/2018 11/01/2018 In active testosterone cypiona te 200 mg/mL intramuscular oil RxNorm: 923020 Milliliter(s) IM 09/16/2018 09/16/2018 In active testosterone cypiona te 200 mg/mL intramuscular oil RxNorm: 027540 1 Milliliter(s) IM 09/02/2018 09/02/2018 Inactive testosterone cypiona te 200 mg/mL intramuscular oil RxNorm: 500292 Milliliter(s) IM 08/19/2018 08/19/2018 In active Adderall 30 mg tablet RxNorm: 654284 2 Tablet(s) PO daily 08/18/2018 09/16/2018 Inactive tramadol 50 mg tablet RxNorm: 191951 1-2 Tablet(s) PO Q6 as needed 08/18/2018 01/12/2019 In active Dexilant 60 mg capsu le, delayed release RxNorm: 091476 1 Capsule(s) PO BID 08/17/2018 08/11/2019 Ac tive ketoconazole 2 % top ical cream RxNorm: 016148 1 Gram(s) TOP BID 08/17/2018 08/26/2018 Inactive Zorvolex 35 mg capsule RxNorm: 5865644 1 Capsule(s) PO TID as needed for pain 08/17/2018 08/16/2018 In active atenolol 50 mg tablet RxNorm: 777456 1 Tablet(s) PO BID 08/17/2018 12/28/2018 Inactive Zorvolex 35 mg capsule RxNorm: 6900980 1 Capsule(s) PO TID as needed for pain 08/17/2018 11/14/2018 In active ketoconazole 2 % top ical cream RxNorm: 930388 1 Gram(s) TOP BID 08/02/2018 08/11/2018 Inactive hydrocortisone 2.5 % topical cream RxNorm: 155704 1 Application TOP BID 07/21/2018 No Stop Date Active Adderall 30 mg tablet RxNorm: 379417 2 Tablet(s) PO daily 07/20/2018 08/17/2018 Inactive testosterone cypiona te 200 mg/mL intramuscular oil RxNorm: 966268 Milliliter(s) IM 07/15/2018 07/15/2018 In active alprazolam 1 mg tablet RxNorm: 244196 1 Tablet(s) PO TID as needed 07/12/2018 09/07/2018 Inactive hydrocodone 5 mg-fanny taminophen 325 mg tablet RxNorm: 627398 1 Tablet(s) PO TID [place] N 06/30/2018 09/19/2018 In active pravastatin 40 mg ta blet RxNorm: 067973 1 Tablet(s) PO QHS 06/18/2018 09/15/2018 Inactive Adderall 30 mg tablet RxNorm: 431456 2 Tablet(s) PO daily 06/18/2018 07/17/2018 Inactive testosterone cypiona te 200 mg/mL intramuscular oil RxNorm: 223462 Milliliter(s) IM 06/17/2018 06/17/2018 In active Voltaren 1 % topical gel RxNorm: 024318 APPLY TOPICALLY TWO T IMES A DAY 06/16/2018 07/21/2018 In active Vitamin D2 50,000 un it capsule RxNorm: 6977167 1 Capsule(s) PO QW 05/21/2018 No Stop Date Active Adderall 30 mg tablet RxNorm: 700611 2 Tablet(s) PO daily 05/21/2018 06/17/2018 Inactive testosterone cypiona te 200 mg/mL intramuscular oil RxNorm: 884300 Milliliter(s) IM 05/21/2018 05/21/2018 In active testosterone cypiona te 200 mg/mL intramuscular oil RxNorm: 8723369 1 Milliliter(s) IM monthly 05/20/2018 09/16/2018 Inactive testosterone cypiona te 200 mg/mL intramuscular oil RxNorm: 375715 1 Milliliter(s) IM monthly 05/20/2018 05/19/2018 Inactive hydrocodone 5 mg-fanny taminophen 325 mg tablet RxNorm: 058676 1 Tablet(s) PO TID [place] N 05/20/2018 06/29/2018 In active Vitamin D2 50,000 un it capsule RxNorm: 6356048 1 Capsule(s) PO QW 05/18/2018 05/20/2018 Inactive triamcinolone aceton destin 0.025 % topical cream RxNorm: 2867421 1 Application TOP BI D 05/13/2018 No Stop Date Active Dexilant 60 mg capsu le, delayed release RxNorm: 139657 1 Capsule(s) PO BID 05/13/2018 08/16/2018 In active Zorvolex 35 mg capsule RxNorm: 3823917 1 Capsule(s) PO TID as needed for pain 05/12/2018 08/09/2018 In active Voltaren 1 % topical gel RxNorm: 313729 1 Application TOP BID 05/12/2018 06/15/2018 Inactive acyclovir 400 mg tablet RxNorm: 688830 1 Tablet(s) PO TID as needed take at ons et of symptoms of cold sores x 5 days 05/10/2018 No Stop Date Active ProAir HFA 90 mcg/ac tuation aerosol inhaler RxNorm: 127138 1 Puff(s) INH QID as needed 05/10/2018 No Stop Date Active baclofen 20 mg tablet RxNorm: 117404 1 Tablet(s) PO TID as needed muscle spas ms 05/10/2018 06/08/2018 In active Singulair 10 mg tablet RxNorm: 463684 1 Tablet(s) PO daily 05/10/2018 08/07/2018 Inactive atenolol 50 mg tablet RxNorm: 837810 1 Tablet(s) PO BID 05/10/2018 08/07/2018 Inactive triamcinolone aceton destin 0.025 % topical cream RxNorm: 8774299 1 Application TOP BI D 05/10/2018 05/12/2018 In active paroxetine 20 mg tablet RxNorm: 2113551 2 Tablet(s) PO QHS 05/10/2018 04/19/2019 Inactive tramadol 50 mg tablet RxNorm: 930600 1 Tablet(s) PO TID as needed 05/10/2018 05/19/2018 Inactive Dexilant 60 mg capsu le, delayed release RxNorm: 593445 1 Capsule(s) PO daily 05/10/2018 05/12/2018 In active alprazolam 1 mg tablet RxNorm: 457291 1 Tablet(s) PO TID as needed 05/10/2018 08/06/2018 Inactive trazodone 100 mg tablet RxNorm: 713298 1 Tablet(s) PO QHS 05/10/2018 11/05/2018 Inactive cyclobenzaprine 10 m g tablet RxNorm: 336011 1 Tablet(s) PO TID as needed muscle spasms 05/07/2018 07/12/2018 Inactive trazodone 100 mg tablet RxNorm: 230709 1 Tablet(s) PO QHS 05/07/2018 05/09/2018 Inactive Adderall 30 mg tablet RxNorm: 701005 2 Tablet(s) PO daily 04/19/2018 05/18/2018 Inactive alprazolam 1 mg tablet RxNorm: 503665 1 Tablet(s) PO BID 04/19/2018 05/09/2018 Inactive Adderall 30 mg tablet RxNorm: 958155 2 Tablet(s) PO daily 03/26/2018 04/18/2018 Inactive paroxetine 20 mg tablet RxNorm: 8474817 2 Tablet(s) PO QHS 03/15/2018 05/09/2018 Inactive Adderall 30 mg tablet RxNorm: 631474 2 Tablet(s) PO daily 02/25/2018 03/25/2018 Inactive cyclobenzaprine 10 m g tablet RxNorm: 466311 1 Tablet(s) PO TID as needed muscle spasms 02/22/2018 05/06/2018 Inactive tramadol 50 mg tablet RxNorm: 591303 1 Tablet(s) PO TID as needed 02/22/2018 03/07/2018 Inactive tramadol 50 mg tablet RxNorm: 981179 1 Tablet(s) PO TID as needed 02/22/2018 02/21/2018 Inactive trazodone 100 mg tablet RxNorm: 021322 1 Tablet(s) PO QHS 02/03/2018 05/03/2018 Inactive trazodone 100 mg tablet RxNorm: 768129 1 Tablet(s) PO QHS 02/03/2018 02/02/2018 Inactive Adderall 30 mg tablet RxNorm: 068150 2 Tablet(s) PO daily 01/27/2018 02/18/2018 Inactive acyclovir 400 mg tablet RxNorm: 252630 1 Tablet(s) PO TID as needed take at ons et of symptoms of cold sores x 5 days 01/15/2018 05/09/2018 Inactive Bactrim DS 800 mg-16 0 mg tablet RxNorm: 996183 1 Tablet(s) PO BID 01/11/2018 01/17/2018 Inactive Bactrim DS 800 mg-16 0 mg tablet RxNorm: 079338 1 Tablet(s) PO BID 01/11/2018 01/10/2018 Inactive Dexilant 60 mg capsu le, delayed release RxNorm: 639419 1 Capsule(s) PO daily 12/23/2017 05/09/2018 In active Dexilant 60 mg capsu le, delayed release RxNorm: 393889 1 Capsule(s) PO daily 12/23/2017 12/22/2017 In active atenolol 50 mg tablet RxNorm: 236404 1 Tablet(s) PO BID 12/15/2017 05/09/2018 Inactive alprazolam 1 mg tablet RxNorm: 222351 1-1.5 Tablet(s) PO daily 12/15/2017 04/18/2018 Inactive ceftriaxone 500 mg s olution for injection RxNorm: 9948235 Inj 08/03/2015 08/03/2015 Inactive paroxetine 20 mg tablet RxNorm: 2441406 2 Tablet(s) PO QHS 08/01/2015 10/29/2015 Inactive pravastatin 40 mg ta blet RxNorm: 779227 1/2 Tablet(s) PO QHS 08/01/2015 12/14/2017 Inactive Trazadone 100mg 100 mg RxNorm: 1 PO daily 08/01/2015 11/27/2015 Inactive Trazadone 100mg 100 mg RxNorm: 1 PO daily 08/01/2015 05/04/2018 Inactive atenolol 50 mg tablet RxNorm: 649870 1 Tablet(s) PO daily 08/01/2015 10/29/2015 Inactive Fish Oil 360 mg-1,20 0 mg capsule RxNorm: 326527 1 Capsule(s) PO BID No Start Date Active Zyrtec 10 mg tablet RxNorm: 4511381 1 Tablet(s) PO daily No Start Date Active pravastatin 40 mg ta blet RxNorm: 705227 1/2 Tablet(s) PO QHS No Start Date 07/31/2015 Inactive Benadryl Allergy 25 mg tablet RxNorm: 0194106 1 Tablet(s) PO daily No Start Date 07/19/2018 Inactive Adderall 30 mg tablet RxNorm: 383046 2 Tablet(s) PO daily No Start Date 01/26/2018 Inactive Aspirin Low Dose 81 mg tablet,delayed release RxNorm: 450435 1 Tablet(s) PO BID No Start Date 07/19/2018 Inactive Singulair 10 mg tablet RxNorm: 645895 1 Tablet(s) PO daily No Start Date 05/09/2018 Inactive cyclobenzaprine 10 m g tablet RxNorm: 389905 1 Tablet(s) PO TID as needed muscle spasms No Start Date 02/21/2018 Inactive Trazadone 100mg 100 mg RxNorm: 1 PO daily No Start Date 07/31/2015 Inactive ibuprofen 800 mg tablet RxNorm: 473499 1 Tablet(s) PO BID -TID No Start Date 06/06/2019 Inactive clindamycin 1 %-arthur oyl peroxide 5 % topical gel RxNorm: 974066 TOP APPLY TO AFFECTED AREA(S) ON SERNA TWO TIMES A DAY No Start Date 11/16/2018 Inactive hydrocortisone 2.5 % topical cream RxNorm: 894953 1 Application TOP BID No Start Date 07/20/2018 Inactive alprazolam 1 mg tablet RxNorm: 754104 2 Tablet(s) PO daily No Start Date 12/14/2017 Inactive tramadol 50 mg tablet RxNorm: 953449 1-2 Tablet(s) PO Q6 as needed No Start Date 08/17/2018 Inactive Vitamin D2 50,000 un it capsule RxNorm: 5693385 1 Capsule(s) PO QW No Start Date 05/17/2018 Inactive pantoprazole 40 mg t ablet,delayed release RxNorm: 041538 1 Tablet(s) PO BID No Start Date 12/22/2017 Inactive atenolol 50 mg tablet RxNorm: 051877 1 Tablet(s) PO daily No Start Date 07/31/2015 Inactive hydrocodone 10 mg-ac etaminophen 325 mg tablet RxNorm: 908990 1 Tablet(s) PO Q6 as needed No Start Date 05/16/2019 Inactive paroxetine 20 mg tablet RxNorm: 198428 2 Tablet(s) PO QHS No Start Date 07/31/2015 Inactive Medication Administered Medication Codes Instruc tions Start Date Status testosterone cypionate 200 mg/mL intramuscular oil RxNorm: 0676672 1.25Milliliter 12/29/2018 No longer Active testosterone cypionate 200 mg/mL intramuscular oil RxNorm: 1853087 Milliliter 12/16/2018 No longer Active testosterone cypionate 200 mg/mL intramuscular oil RxNorm: 6465474 1Milliliter 11/15/2018 No longer Active testosterone cypionate 200 mg/mL intramuscular oil RxNorm: 717644 Milliliter 09/28/2018 No longer Active testosterone cypionate 200 mg/mL intramuscular oil RxNorm: 024159 Milliliter 09/16/2018 No longer Active testosterone cypionate 200 mg/mL intramuscular oil RxNorm: 051822 1Milliliter 09/02/2018 No longer Active testosterone cypionate 200 mg/mL intramuscular oil RxNorm: 034454 Milliliter 08/19/2018 No longer Active testosterone cypionate 200 mg/mL intramuscular oil RxNorm: 697708 Milliliter 07/15/2018 No longer Active testosterone cypionate 200 mg/mL intramuscular oil RxNorm: 962018 Milliliter 06/17/2018 No longer Active testosterone cypionate 200 mg/mL intramuscular oil RxNorm: 281899 Milliliter 05/21/2018 No longer Active ceftriaxone 500 mg solution for injection RxNorm: 3503290 08/03/2015 No longer A ctive Immunizations Vaccine [...] Code Result Date Comp. Metabolic Panel (14) 48925 GLUCOSE 117 mg/dL 12/17/2018 Comp. Metabolic Panel (14) 68711 BUN 17 mg/dL 12/17/2018 Comp. Metabolic Panel (14) 52433 CREATININE 0.99 mg/dL 12/17/2018 Comp. Metabolic Panel (14) 55218 SODIUM 137 mmol/L 12/17/2018 Comp. Metabolic Panel (14) 75412 POTASSIUM 4.6 mmol/L 12/17/2018 Comp. Metabolic Panel (14) 89065 CHLORIDE 102 mmol/L 12/17/2018 Comp. Metabolic Panel (14) 70213 CARBON DIOXIDE 21 mmol/L 12/17/2018 Comp. Metabolic Panel (14) 49944 CALCIUM 9.4 mg/dL 12/17/2018 Comp. Metabolic Panel (14) 84637 TOTAL PROTEIN 7.5 g/dL 12/17/2018 Comp. Metabolic Panel (14) 16047 ALBUMIN 5.1 g/dL 12/17/2018 Comp. Metabolic Panel (14) 07859 ALKALINE PHOSPHATASE 79 U/L 12/17/2018 Comp. Metabolic Panel (14) 75341 TOTAL BILIRUBIN 0.5 mg/dL 12/17/2018 Comp. Metabolic Panel (14) 01100 SGOT (AST) 34 U/L 12/17/2018 Comp. Metabolic Panel (14) 66246 SGPT (ALT) 40 U/L 12/17/2018 Comp. Metabolic Panel (14) 78294 eGFR (mL/min/1.73m2) 115 12/17/2018 Comp. Metabolic Panel (14) 94857 INTERPRETATION 12/17/2018 Testosterone Serum 651913 TESTOSTERONE 96.8 ng/dL 12/17/2018 Cbc With Differential/Platelet 51528 WBC 5.61 thou/uL 9 Cbc With Differential/Platelet 99361 RBC 5.53 mil/uL 12/17/2018 Cbc With Differential/Platelet 02929 HEMOGLOBIN 15.4 g/dL 12/17/2018 Cbc With Differential/Platelet 17365 HEMATOCRIT 48.1 % 12/17/2018 Cbc With Differential/Platelet 46282 MCV 87.0 fL 12/17/2018 Cbc With Differential/Platelet 26338 MCH 27.8 pg 12/17/2018 Cbc With Differential/Platelet 83372 MCHC 32.0 g/dL 12/17/2018 Cbc With Differential/Platelet 18954 RDW-CV 13.9 % 12/17/2018 Cbc With Differential/Platelet 86781 PLATELET COUNT 294 thou/uL 12/17/2018 Cbc With Differential/Platelet 70067 NEUTROPHIL % 71.2 % 12/17/2018 Cbc With Differential/Platelet 31848 LYMPHOCYTE % 22.2 % 12/17/2018 Cbc With Differential/Platelet 04075 MONOCYTE % 5.4 % 12/17/2018 Cbc With Differential/Platelet 04352 EOS % 0.9 % 12/17/2018 Cbc With Differential/Platelet 79649 BASO % 0.4 % 12/17/2018 Cbc With Differential/Platelet 41538 NEUTROPHIL ABS # 3.99 thou/uL 12/17/2018 Cbc With Differential/Platelet 88726 LYMPH ABS # 1.25 thou/uL 12/17/2018 Cbc With Differential/Platelet 79021 MONOCYTE ABS # 0.30 thou/uL 12/17/2018 Cbc With Differential/Platelet 56077 EOS ABS # 0.05 thou/uL 9 Cbc With Differential/Platelet 11014 BASO ABS # 0.02 thou/uL 12/17/2018 Lipid Panel 89276 CHOLES TEROL 227 mg/dL 12/17/2018 Lipid Panel 97741 TRIGLY CERIDES 229 mg/dL 12/17/2018 Lipid Panel 44786 HDL 41 mg/dL 12/17/2018 Lipid Panel 71723 CHOLES TEROL/HDL 5.54 12/17/2018 Lipid Panel 77022 LDL (C ALCULATED) 140 mg/dL 12/17/2018 Lipid Panel 67459 LDL/HDL 3.41 12/17/2018 Lipid Panel 00100 INTERP RETATION 12/17/2018 Tsh 963075 TSH 1.190 uIU/mL 12/17/2018 Testosterone Serum 813209 TESTOSTERONE 44.1 ng/dL 08/18/2018 Hemoglobin 884769 WBC 7.62 thou/uL 08/17/2018 Hemoglobin 195887 RBC 5.23 mil/uL 08/17/2018 Hemoglobin 206755 HEMOGL OBIN 15.0 g/dL 08/17/2018 Hemoglobin 205373 HEMATO CRIT 45.0 % 08/17/2018 Hemoglobin 596301 MCV 86.0 fL 08/17/2018 Hemoglobin 985726 MCH 28.7 pg 08/17/2018 Hemoglobin 266917 MCHC 33.3 g/dL 08/17/2018 Hemoglobin 139546 RDW-CV 12.9 % 08/17/2018 Hemoglobin 323151 PLATEL ET COUNT 313 thou/uL 08/17/2018 Hematocrit 996779 WBC 7.62 thou/uL 08/17/2018 Hematocrit 725051 RBC 5.23 mil/uL 08/17/2018 Hematocrit 499027 HEMOGL OBIN 15.0 g/dL 08/17/2018 Hematocrit 787446 HEMATO CRIT 45.0 % 08/17/2018 Hematocrit 626314 MCV 86.0 fL 08/17/2018 Hematocrit 334838 MCH 28.7 pg 08/17/2018 Hematocrit 460439 MCHC 33.3 g/dL 08/17/2018 Hematocrit 436099 RDW-CV 12.9 % 08/17/2018 Hematocrit 921835 PLATEL ET COUNT 313 thou/uL 08/17/2018 Culture Mrsa 188484 MRSA CULTURE SEE NOTES 06/21/2018 Comp. Metabolic Panel (14) 75570 GLUCOSE 101 mg/dL 06/18/2018 Comp. Metabolic Panel (14) 12126 BUN 18 mg/dL 06/18/2018 Comp. Metabolic Panel (14) 76559 CREATININE 0.99 mg/dL 06/18/2018 Comp. Metabolic Panel (14) 38844 SODIUM 141 mmol/L 06/18/2018 Comp. Metabolic Panel (14) 23729 POTASSIUM 4.3 mmol/L 06/18/2018 Comp. Metabolic Panel (14) 84850 CHLORIDE 103 mmol/L 06/18/2018 Comp. Metabolic Panel (14) 60278 CARBON DIOXIDE 23 mmol/L 06/18/2018 Comp. Metabolic Panel (14) 51223 CALCIUM 9.8 mg/dL 06/18/2018 Comp. Metabolic Panel (14) 72628 TOTAL PROTEIN 7.1 g/dL 06/18/2018 Comp. Metabolic Panel (14) 16829 ALBUMIN 5.2 g/dL 06/18/2018 Comp. Metabolic Panel (14) 39183 ALKALINE PHOSPHATASE 65 U/L 06/18/2018 Comp. Metabolic Panel (14) 28116 TOTAL BILIRUBIN 0.6 mg/dL 06/18/2018 Comp. Metabolic Panel (14) 05126 SGOT (AST) 21 U/L 06/18/2018 Comp. Metabolic Panel (14) 50115 SGPT (ALT) 24 U/L 06/18/2018 Comp. Metabolic Panel (14) 04629 eGFR (mL/min/1.73m2) 115 06/18/2018 Comp. Metabolic Panel (14) 33259 INTERPRETATION 06/18/2018 Cbc With Differential/Platelet 36569 WBC 4.55 thou/uL 8 Cbc With Differential/Platelet 71377 RBC 5.13 mil/uL 06/18/2018 Cbc With Differential/Platelet 90710 HEMOGLOBIN 14.4 g/dL 06/18/2018 Cbc With Differential/Platelet 14747 HEMATOCRIT 44.1 % 06/18/2018 Cbc With Differential/Platelet 69849 MCV 85.9 fL 06/18/2018 Cbc With Differential/Platelet 09406 MCH 28.1 pg 06/18/2018 Cbc With Differential/Platelet 29224 MCHC 32.7 g/dL 06/18/2018 Cbc With Differential/Platelet 89556 RDW-CV 13.4 % 06/18/2018 Cbc With Differential/Platelet 00761 PLATELET COUNT 287 thou/uL 06/18/2018 Cbc With Differential/Platelet 85623 NEUTROPHIL % 53.9 % 06/18/2018 Cbc With Differential/Platelet 88604 LYMPHOCYTE % 36.1 % 06/18/2018 Cbc With Differential/Platelet 10465 MONOCYTE % 7.4 % 06/18/2018 Cbc With Differential/Platelet 05333 EOS % 1.9 % 06/18/2018 Cbc With Differential/Platelet 65570 BASO % 0.8 % 06/18/2018 Cbc With Differential/Platelet 34621 NEUTROPHIL ABS # 2.45 thou/uL 06/18/2018 Cbc With Differential/Platelet 64929 LYMPH ABS # 1.64 thou/uL 06/18/2018 Cbc With Differential/Platelet 05560 MONOCYTE ABS # 0.34 thou/uL 06/18/2018 Cbc With Differential/Platelet 35396 EOS ABS # 0.09 thou/uL 8 Cbc With Differential/Platelet 57916 BASO ABS # 0.04 thou/uL 06/18/2018 Review [...] clear 05/05/2019 None Full Exam - General 1995 Ears/Nose/Throat [...] normal 12/29/2018 None Full Exam - General 1995 [...] developed 12/16/2018 None Full Exam - General 1995 Constitutional general appearance Overall: in no acute [...] clear 08/16/2018 None Full Exam - General 1995 Ears/Nose/Throat [...] Procedure Codes Date THER/PROPH/DIAG INJ SC/IM CPT-4: 58723 12/29/2018 THER/PROPH/DIAG INJ SC/IM CPT-4: 80259 12/16/2018 THER/PROPH/DIAG INJ SC/IM CPT-4: 89338 11/15/2018 THER/PROPH/DIAG INJ SC/IM CPT-4: 83998 09/28/2018 THER/PROPH/DIAG INJ SC/IM CPT-4: 82454 09/16/2018 THER/PROPH/DIAG INJ SC/IM CPT-4: 52620 09/02/2018 THER/PROPH/DIAG INJ SC/IM CPT-4: 50948 08/19/2018 IMMUNIZATION ADMIN CPT- 4: 68084 08/02/2018 FLU VAC NO PRSV 4 VA L 3 YRS+ CPT-4: 26814 08/02/2018 THER/PROPH/DIAG INJ SC/IM CPT-4: 43610 07/15/2018 THER/PROPH/DIAG INJ SC/IM CPT-4: 43119 06/17/2018 THER/PROPH/DIAG INJ SC/IM CPT-4: 71040 05/21/2018 THER/PROPH/DIAG INJ SC/IM CPT-4: 31066 08/03/2015 ROCEPHIN, PER 250 MG CPT-4: J0696 08/03/2015 Vital Signs Date Vital 06/07/2019 Blood Pressure 1: 160/88 Code: 8480-6 BMI: 36.0 Code: 55241-4 Heart Rate 1: 70 bpm Height: 5'7" SpO2: 94% Weight: 230 lbs 05/05/2019 Heigh t: Weight: 04/20/2019 Blood Pressure 1: 160/84 Code: 8480-6 BMI: 34.0 Code: 68567-4 Heart Rate 1: 82 bpm Height: 5'7" SpO2: 97% Weight: 216 lbs 13 o z 12/29/2018 Blood Pressure 1: 144/90 Code: 8480-6 BMI: 34.8 Code: 11144-5 Heart Rate 1: 91 bpm Height: 5'7" SpO2: 98% Weight: 222 lbs 12/20/2018 Blood Pressure 1: 124/76 Code: 8480-6 BMI: 35.4 Code: 76115-0 Heart Rate 1: 79 bpm Height: 5'7" SpO2: 99% Weight: 226 lbs 12/16/2018 Blood Pressure 1: 160/90 Code: 8480-6 BMI: 35.4 Code: 93592-6 Heart Rate 1: 90 bpm Height: 5'7" SpO2: 95% Weight: 226 lbs 11/01/2018 Blood Pressure 1: 146/82 Code: 8480-6 BMI: 36.0 Code: 04247-5 Heart Rate 1: 87 bpm Height: 5'7" SpO2: 98% Weight: 230 lbs 09/24/2018 Blood Pressure 1: 140/82 Code: 8480-6 BMI: 36.0 Code: 59766-7 Heart Rate 1: 86 bpm Height: 5'7" SpO2: 98% Temperature: 37.1 (C ) / 98.7 (F) Weight: 230 lbs 08/16/2018 Blood Pressure 1: 148/82 Code: 8480-6 Blood Pressure 2: 157/92 Code: 8480-6 BMI: 35.9 Code: 27007-8 Heart Rate 1: 72 bpm Height: 5'7" SpO2: 96% Weight: 229 lbs 08/02/2018 Blood Pressure 1: 142/86 Code: 8480-6 BMI: 35.2 Code: 93614-0 Heart Rate 1: 101 bpm Height: 5'7" SpO2: 97% Weight: 225 lbs 05/31/2018 Blood Pressure 1: 134/82 Code: 8480-6 BMI: 35.4 Code: 85716-3 Heart Rate 1: 91 bpm Height: 5'7" SpO2: 96% Weight: 226 lbs 05/20/2018 Blood Pressure 1: 160/100 Code: 8480-6 BMI: 35.2 Code: 04567-5 Heart Rate 1: 89 bpm Height: 5'7" SpO2: 98% Weight: 225 lbs 05/10/2018 Blood Pressure 1: 124/70 Code: 8480-6 BMI: 35.1 Code: 06533-9 Heart Rate 1: 93 bpm Height: 5'7" SpO2: 99% Weight: 224 lbs 01/15/2018 Blood Pressure 1: 142/92 Code: 8480-6 BMI: 36.3 Code: 40181-8 Heart Rate 1: 77 bpm Height: 5'7" SpO2: 98% Weight: 232 lbs 12/15/2017 Blood Pressure 1: 156/98 Code: 8480-6 BMI: 36.2 Code: 07466-1 Heart Rate 1: 87 bpm Height: 5'7" [...] eye 01/15/2018 None vision change Quality ac [place] 01/15/2018 None vision change Quality lo [...] vision 12/15/2017 None vision change Quality ac [place] 12/15/2017 None vision change Onset and Resolution sudden in onset 12/15/2017 None vision change Onset of Symptom 3.5 weeks ago 12/15/2017 None vision change Limitation on Activities severely limits vision 12/15/2017 None vision change Triggers n o known associated factors 12/15/2017 None Advance Directives No Advance Directive data Encounters Encounter Performer Loca tion Codes Date ([id number]) 05977 EST. P ATIENT, LEVEL IV Diagnosis: Cervicalgia[ICD10: M54.2] Diagnosis: Pain in thoracic spine[ICD10: M54.6] Diagnosis: Spinal stenosis, thoracic region[ICD10: M48.04] Diagnosis: Spinal stenosis, cervical region[ICD10: M48.02] Diagnosis: Changes in skin texture[ICD10: R23.4] Radha Gonzalez MD, [facility] CPT-4: 38187 06/07/2019 [id number] EST. PATIENT, LEVEL IV Diagnosis: Cervicalgia[ICD10: M54.2] Diagnosis: Other fatigue[ICD10: R53.83] Diagnosis: Essential (primary) hypertension[ICD10: I10] Diagnosis: Major depressive disorder, recurrent, moderate[ICD10: F33.1] Sonia Gonzalez MD, [facility] CPT-4: 09495 05/05/2019 ([id number]) 05959 EST. P ATIENT, LEVEL III Diagnosis: Essential (primary) hypertension[ICD10: I10] Diagnosis: Major depressive disorder, recurrent, moderate[ICD10: F33.1] Diagnosis: Dysphagia, pharyngeal phase[ICD10: R13.13] Radha Gonzalez [facility] CPT-4: 36295 04/20/2019 ([id number]) 72507 EST. 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 PATIENT, LEVEL III Diagnosis: Pain in right arm[ICD10: M79.601] Sonia Gonzalez MD, [facility] CPT-4: 11096 12/20/2018 ([id number]) 98240 EST. 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 PATIENT, LEVEL III Diagnosis: Acute upper respiratory infection, unspecified[ICD10: J06.9] Diagnosis: Other allergic rhinitis[ICD10: J30.89] Sonia Gonzalez MD, [facility] CPT-4: 82151 09/24/2018 ([id number]) 90690 EST. 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 P ATIENT, LEVEL IV Diagnosis: Essential (primary) hypertension[ICD10: I10] Diagnosis: Testicular hypofunction[ICD10: E29.1] Diagnosis: Spinal stenosis, thoracic region[ICD10: M48.04] Diagnosis: Rash and other nonspecific skin eruption[ICD10: R21] Diagnosis: VACCIN FOR INFLUENZA[ICD10: Z23] Radha Gonzalez MD, [facility] CPT-4: 47446 08/02/2018 ([id number]) 67372 EST. P ATIENT, LEVEL IV Diagnosis: Essential (primary) hypertension[ICD10: I10] Diagnosis: Cervicalgia[ICD10: M54.2] Radha Gonzalez MD, [facility] CPT-4: 73146 05/31/2018 ([id number]) 84424 EST. 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 06/07/2019 Appointment: [phone] (15 min) Moderate 06/07/2019 Patient Education: Patient [...] Appointment: [phone] (30 min) Complex 05/05/2019 Appointment: Radha Gonzalez WPtel: [facility] (15 min) Moderate 05/05/2019 Patient Education: Patient [...] 40mg daily. 04/20/2019 Appointment: Radha Gonzalez WPtel: [facility] (15 min) Moderate 04/20/2019 Patient Education: Patient [...] testosterone injections. 12/29/2018 Appointment: Radha Gonzalez WPtel: [facility] (15 min) Moderate 12/29/2018 Patient Education: Patient Medication Summary Completed 12/29/2018 Patient Education: .Cervicalgia Neck Pain Completed 12/29/2018 Patient Education: Patient Medication Summary Completed 12/21/2018 Care Plan: %Hba1C add to blood from 12/17 LOINC : 37535-2 Pending 12/21/2018 Visit Plan: Right arm pain - dayna deformity noted - will refer to ortho - The pt is to use prn antiinflammatories to manage acute pain. The patient is to call the office if the pain is worsening or does not improve. 12/20/2018 Appointment: Sonia Potter WPtel: [phone] [facility] (15 min) Moderate 12/20/2018 Patient Education: Patient [...] Hypogonadism - continue with testosterone. 12/16/2018 Appointment: Rahda Gonzalez WPtel: [facility] (15 min) Moderate 12/16/2018 Patient Education: [...] as needed. 11/01/2018 Appointment: Radha Gonzalez WPtel: [facility] (15 min) Moderate 11/01/2018 Patient Education: [...] allergy spray. 09/24/2018 Appointment: Sonia Potter WPtel: [phone] [facility] (15 min) Moderate 09/24/2018 Patient Education: Patient [...] home. Multiple symptoms - referral to [facility] - appt in September 30, 2018. 08/16/2018 Appointment: Radha Gonzalez WPtel: [phone] [facility] (15 min) Moderate 08/16/2018 Patient Education: [...] home. Multiple symptoms - referral to [facility] - rashes, hypogonadism, optic neuritis - all points to possible autoimmune syndrome. Spinal stenosis - of thoracic region - pt to talk to Dr. Dunaway about referral to a different specialist for his mid- back. Hypogonadism - continue with testosterone. Flu shot given today in clinic. 08/02/2018 Appointment: Radha Gonzalez WPtel: [phone] [facility] [place] (15 min) Moderate 08/02/2018 Patient Education: Patient Medication Summary Completed 08/02/2018 Care Plan: Referral Order SNOMED-CT : 224027944 Pending 08/02/2018 Appointment: Injection 07/15/2018 Patient Education: [...] home. Cervical spine stenosis - referral to [facility] physical therapy. I have also recommended a Referral to Dr. Dunaway. I have called and talked to Dr. Dunaway - he looked at the pt's imaging and agrees that getting the pt in to be seen soon would be a preferred option. 05/31/2018 Appointment: Radha Gonzalez [facility]Ptel: [phone] [facility] [place] (15 min) Moderate 05/31/2018 Patient Education: Patient Medication Summary Completed 05/31/2018 Care Plan: Referral Order SNOMED-CT : 020049961 Pending 05/31/2018 Care Plan: Referral Order SNOMED-CT : 950949352 Pending 05/31/2018 Appointment: Injection 05/21/2018 Patient Education: Patient Medication Summary Completed 05/21/2018 Care Plan: Referral Order SNOMED-CT : [id number] Pending 05/21/2018 Visit Plan: Cervical and thoracic s tenosis with spinal cord compression -refer for appt with Dr Marr -rx for hydrocodone for pain-start gabapentin at bedtime Soft tissue lesion-left chest-schedule CTfor further evaluation HTN-elevated today-hold adderall-monitor blood pressure 05/20/2018 Appointment: Hannah Sim[phone] [place] (15 min) Moderate 05/20/2018 Patient Education: [...] this. 05/10/2018 Appointment: Sonia Potter WPtel: [phone] [facility] (15 min) Moderate 05/10/2018 Patient Education: Patient Medication Summary Completed 05/10/2018 Visit Plan: Sleep apnea - rx for cp ap - actually autopap was recommended and pt given rx today. HTN - referral to dr. kapoor - pt needs stress testing. 01/15/2018 Appointment: Radha Gonzalez [facility]Ptel: [phone] [place] (15 min) Moderate 01/15/2018 Patient Education: Patient Medication Summary Completed 01/15/2018 Care Plan: Referral Order SNOMED-CT : [id number] Pending 01/15/2018 Visit Plan: Well Adult - [...] month. 12/15/2017 Appointment: Radha Gonzalez WPtel: [phone] [facility] New Patient 12/15/2017 Patient Education: Patient Medication Summary Completed 12/15/2017 Care Plan: CHEST X-RAY 2VW FRONTAL&LATL LOINC : 54008-3 Pending 12/15/2017 Appointment: Radha Gonzalez WPtel: [phone] [facility]66[facility] (15 min) Moderate 12/08/2017 Appointment: (S) New Patient 08/13/2015 Visit Plan: steri strip placed on t humb of right hand - antibiotic shot given to patient and rx for keflex 500mg qid x 10 days given to the patient to fill prior to his trip to [place] 08/03/2015 Patient Education: Patient Medication Summary Completed 08/03/2015 Referral: External, Ordering Provider 08/03 Referral info faxed to [facility]. Patient informed to be expecting a call from them with appt info Appointment Requested Referral: External, Ordering Provider Referral Appointment Requested Referral: External, Ordering Provider I called today; they will call him to schedule. Completed Referral: Armani Dunaway Referral Appointment Requested Referral: Mayte Kapoor Referral Appointment Requested Referral: [facility] WPtel: [phone] Referral Appointment Requested Referral: External, Ordering [...] home. Multiple symptoms - referral to [facility] - rashes, hypogonadism, optic neuritis - all [...] home. Multiple symptoms - referral to [facility] - appt in September 30, 2018. . [...] to fill prior to his trip to [place] Prazosin - for night mcrae . Chronic [...]
--- OUTSIDE RECORDS SUMMARY | 2020-04-28 00:23 | XMS REPORT | CCD ---
Author Author Nilton Gonzalez Organization [facility] Address [address] [place] [address] Phone Care Team Providers Care Gray Tender Name Role Phone PP Unavailable CCM Unavailable Summary Purpose Interface Exchange Family history Brother Diagnosis Age At Onset Alcoholism Unknown Father Diagnosis Age At Onset Hypercholesterolemia Unknown Social History Social History Element Codes Description Effective Dates Employment Unknown Curre ntly unemployed 04/20/2019 Marital status Unknown S chanda 12/15/2017 Number of children Unknown 1 12/15/[address]: 941966635 Never smoker 12/15/[address]: 820287 Currently drinks alcohol <1 per week 12/15/2017 [...] Fill Instructions Adderall 30 mg tablet RxNorm: 831667 2 Tablet(s) PO daily 06/16/2019 07/15/2019 Active hydrocodone 10 mg-ac etaminophen 325 mg tablet RxNorm: 869801 1 Tablet(s) PO TID 06/07/2019 No Stop Date Active prazosin 1 mg capsule RxNorm: 426725 2 Capsule(s) PO QPM 06/07/2019 10/04/2019 Active prazosin 1 mg capsule RxNorm: 010571 TAKE ONE CAPSULE BY MOUTH EVERY NIGHT AT BEDTIME 06/02/2019 06/06/2019 Inactive trazodone 100 mg tablet RxNorm: 064371 TAKE ONE TABLET BY MOUTH EVERY NIGHT AT BEDTIME 05/25/2019 11/20/2019 Active hydrocodone 10 mg-ac etaminophen 325 mg tablet RxNorm: 791181 1 Tablet(s) PO Q6 as needed 05/17/2019 06/06/2019 Inactive paroxetine 40 mg tablet RxNorm: 2380238 TAKE ONE TABLET BY MOUTH DAILY 05/16/2019 11/11/2019 Ac tive hydrocodone 5 mg-fanny taminophen 325 mg tablet RxNorm: 685500 1-2 Tablet(s) PO Q6 a s needed 05/16/2019 05/16/2019 Inactive prazosin 1 mg capsule RxNorm: 192634 1 Capsule(s) PO daily 05/05/2019 06/01/2019 Inactive paroxetine 40 mg tablet RxNorm: 2842468 1 Tablet(s) PO daily 04/20/2019 05/15/2019 Inactive Adderall 30 mg tablet RxNorm: 066684 2 Tablet(s) PO daily 04/19/2019 05/18/2019 Inactive alprazolam 1 mg tablet RxNorm: 568851 1 Tablet(s) PO TID as needed 04/13/2019 06/11/2019 Inactive hydrocodone 5 mg-fanny taminophen 325 mg tablet RxNorm: 295183 1-2 Tablet(s) PO Q6 a s needed 03/21/2019 05/15/2019 Inactive Adderall 30 mg tablet RxNorm: 868654 2 Tablet(s) PO daily 03/21/2019 04/14/2019 Inactive tramadol 50 mg tablet RxNorm: 020601 1-2 Tablet(s) PO Q6 as needed 03/14/2019 No Stop Date Active hydrocodone 5 mg-fanny taminophen 325 mg tablet RxNorm: 197911 1-2 Tablet(s) PO Q6 a s needed 02/23/2019 03/20/2019 Inactive Adderall 30 mg tablet RxNorm: 237622 2 Tablet(s) PO daily 02/23/2019 03/20/2019 Inactive Adderall 30 mg tablet RxNorm: 117519 2 Tablet(s) PO daily 01/24/2019 02/22/2019 Inactive ketoconazole 2 % top ical cream RxNorm: 920608 APPLY ONE GRAM TOPICA LLY TWICE A DAY 01/12/2019 01/26/2019 In active tramadol 50 mg tablet RxNorm: 361373 1-2 Tablet(s) PO Q6 as needed 01/11/2019 03/13/2019 In active atenolol 50 mg tablet RxNorm: 208057 1.5 Tablet(s) PO BID 12/29/2018 12/23/2019 Active hydrocodone 5 mg-fanny taminophen 325 mg tablet RxNorm: 054148 1-2 Tablet(s) PO Q6 a s needed 12/29/2018 02/22/2019 Inactive Adderall 30 mg tablet RxNorm: 048102 2 Tablet(s) PO daily 12/29/2018 01/23/2019 Inactive hydrocodone 5 mg-fanny taminophen 325 mg tablet RxNorm: 915467 1-2 Tablet(s) PO Q6 a s needed 12/29/2018 12/28/2018 Inactive testosterone cypiona te 200 mg/mL intramuscular oil RxNorm: 4962938 1.25 Milliliter(s) IM 12/29/2018 12/29/2018 Inactive hydrocodone 5 mg-fanny taminophen 325 mg tablet RxNorm: 230741 1 Tablet(s) PO TID MT N 12/28/2018 12/28/2018 In active testosterone cypiona te 200 mg/mL intramuscular oil RxNorm: 4500142 1.25 Milliliter(s) IM 2 x month 12/22/2018 04/12/2019 Inactive gabapentin 300 mg ca psule RxNorm: 904471 1 Capsule(s) PO QID 12/16/2018 12/10/2019 Active testosterone cypiona te 200 mg/mL intramuscular oil RxNorm: 0361595 Milliliter(s) IM 12/16/2018 12/16/2018 In active Voltaren 1 % topical gel RxNorm: 004557 2 Gram(s) APPLY TOPIC ALLY four TIMES A DAY 12/16/2018 01/20/2019 In active trazodone 100 mg tablet RxNorm: 777983 TAKE ONE TABLET BY MOUTH EVERY NIGHT AT BEDTIME 12/07/2018 05/24/2019 Inactive hydrocodone 5 mg-fanny taminophen 325 mg tablet RxNorm: 785247 1 Tablet(s) PO TID MT N 11/29/2018 12/27/2018 In active Adderall 30 mg tablet RxNorm: 302862 2 Tablet(s) PO daily 11/29/2018 12/28/2018 Inactive clindamycin 1 %-arthur oyl peroxide 5 % topical gel RxNorm: 171190 TOP APPLY TO AFFECTED AREA(S) ON SERNA TWO TIMES A DAY 11/17/2018 No Stop Date Active testosterone cypiona te 200 mg/mL intramuscular oil RxNorm: 7195749 1 Milliliter(s) IM 2 x month 11/17/2018 12/21/2018 Inactive Zorvolex 35 mg capsule RxNorm: 7108503 1 Capsule(s) PO TID as needed for pain 11/15/2018 05/13/2019 In active ketoconazole 2 % top ical cream RxNorm: 478033 APPLY ONE GRAM TOPICA LLY TWICE A DAY 11/15/2018 11/29/2018 In active testosterone cypiona te 200 mg/mL intramuscular oil RxNorm: 2914980 1 Milliliter(s) IM 11/15/2018 11/14/2018 Inactive hydrocodone 5 mg-fanny taminophen 325 mg tablet RxNorm: 062170 1 Tablet(s) PO TID MT N 11/02/2018 11/28/2018 In active Singulair 10 mg tablet RxNorm: 710395 1 Tablet(s) PO daily 11/01/2018 07/28/2019 Active testosterone cypiona te 200 mg/mL intramuscular oil RxNorm: 8112392 1 Milliliter(s) IM 2 x month 11/01/2018 11/16/2018 Inactive Adderall 30 mg tablet RxNorm: 643247 2 Tablet(s) PO daily 10/29/2018 11/27/2018 Inactive gabapentin 300 mg ca psule RxNorm: 525809 1 Capsule(s) PO BID m ay take TID 10/19/2018 12/15/2018 In active gabapentin 300 mg ca psule RxNorm: 578550 1 Capsule(s) PO BID m ay take TID 10/19/2018 10/18/2018 In active alprazolam 1 mg tablet RxNorm: 703620 1 Tablet(s) PO TID as needed 10/15/2018 04/19/2019 Inactive testosterone cypiona te 200 mg/mL intramuscular oil RxNorm: 946217 Milliliter(s) IM 09/28/2018 09/28/2018 In active pravastatin 40 mg ta blet RxNorm: 351591 TAKE ONE TABLET BY MO UT EVERY NIGHT AT BEDTIME 09/27/2018 09/21/2019 Active Tamiflu 75 mg capsule RxNorm: 266283 1 Capsule(s) PO BID 09/24/2018 09/28/2018 Inactive Adderall 30 mg tablet RxNorm: 309619 2 Tablet(s) PO daily 09/20/2018 10/19/2018 Inactive hydrocodone 5 mg-fanny taminophen 325 mg tablet RxNorm: 643217 1 Tablet(s) PO TID MT N 09/20/2018 11/01/2018 In active testosterone cypiona te 200 mg/mL intramuscular oil RxNorm: 893373 Milliliter(s) IM 09/16/2018 09/16/2018 In active testosterone cypiona te 200 mg/mL intramuscular oil RxNorm: 842625 1 Milliliter(s) IM 09/02/2018 09/02/2018 Inactive testosterone cypiona te 200 mg/mL intramuscular oil RxNorm: 357274 Milliliter(s) IM 08/19/2018 08/19/2018 In active Adderall 30 mg tablet RxNorm: 338406 2 Tablet(s) PO daily 08/18/2018 09/16/2018 Inactive tramadol 50 mg tablet RxNorm: 659652 1-2 Tablet(s) PO Q6 as needed 08/18/2018 01/12/2019 In active Dexilant 60 mg capsu le, delayed release RxNorm: 267222 1 Capsule(s) PO BID 08/17/2018 08/11/2019 Ac tive ketoconazole 2 % top ical cream RxNorm: 927737 1 Gram(s) TOP BID 08/17/2018 08/26/2018 Inactive Zorvolex 35 mg capsule RxNorm: 6074093 1 Capsule(s) PO TID as needed for pain 08/17/2018 08/16/2018 In active atenolol 50 mg tablet RxNorm: 598569 1 Tablet(s) PO BID 08/17/2018 12/28/2018 Inactive Zorvolex 35 mg capsule RxNorm: 6507766 1 Capsule(s) PO TID as needed for pain 08/17/2018 11/14/2018 In active ketoconazole 2 % top ical cream RxNorm: 630553 1 Gram(s) TOP BID 08/02/2018 08/11/2018 Inactive hydrocortisone 2.5 % topical cream RxNorm: 498787 1 Application TOP BID 07/21/2018 No Stop Date Active Adderall 30 mg tablet RxNorm: 911960 2 Tablet(s) PO daily 07/20/2018 08/17/2018 Inactive testosterone cypiona te 200 mg/mL intramuscular oil RxNorm: 844769 Milliliter(s) IM 07/15/2018 07/15/2018 In active alprazolam 1 mg tablet RxNorm: 351452 1 Tablet(s) PO TID as needed 07/12/2018 09/07/2018 Inactive hydrocodone 5 mg-fanny taminophen 325 mg tablet RxNorm: 500118 1 Tablet(s) PO TID MT N 06/30/2018 09/19/2018 In active pravastatin 40 mg ta blet RxNorm: 877329 1 Tablet(s) PO QHS 06/18/2018 09/15/2018 Inactive Adderall 30 mg tablet RxNorm: 560338 2 Tablet(s) PO daily 06/18/2018 07/17/2018 Inactive testosterone cypiona te 200 mg/mL intramuscular oil RxNorm: 203048 Milliliter(s) IM 06/17/2018 06/17/2018 In active Voltaren 1 % topical gel RxNorm: 078733 APPLY TOPICALLY TWO T IMES A DAY 06/16/2018 07/21/2018 In active Vitamin D2 50,000 un it capsule RxNorm: 9684631 1 Capsule(s) PO QW 05/21/2018 No Stop Date Active Adderall 30 mg tablet RxNorm: 058960 2 Tablet(s) PO daily 05/21/2018 06/17/2018 Inactive testosterone cypiona te 200 mg/mL intramuscular oil RxNorm: 322489 Milliliter(s) IM 05/21/2018 05/21/2018 In active testosterone cypiona te 200 mg/mL intramuscular oil RxNorm: 1241782 1 Milliliter(s) IM monthly 05/20/2018 09/16/2018 Inactive testosterone cypiona te 200 mg/mL intramuscular oil RxNorm: 923540 1 Milliliter(s) IM monthly 05/20/2018 05/19/2018 Inactive hydrocodone 5 mg-fanny taminophen 325 mg tablet RxNorm: 032893 1 Tablet(s) PO TID MT N 05/20/2018 06/29/2018 In active Vitamin D2 50,000 un it capsule RxNorm: 4017108 1 Capsule(s) PO QW 05/18/2018 05/20/2018 Inactive triamcinolone aceton destin 0.025 % topical cream RxNorm: 9888948 1 Application TOP BI D 05/13/2018 No Stop Date Active Dexilant 60 mg capsu le, delayed release RxNorm: 247804 1 Capsule(s) PO BID 05/13/2018 08/16/2018 In active Zorvolex 35 mg capsule RxNorm: 6714933 1 Capsule(s) PO TID as needed for pain 05/12/2018 08/09/2018 In active Voltaren 1 % topical gel RxNorm: 110145 1 Application TOP BID 05/12/2018 06/15/2018 Inactive acyclovir 400 mg tablet RxNorm: 704846 1 Tablet(s) PO TID as needed take at ons et of symptoms of cold sores x 5 days 05/10/2018 No Stop Date Active ProAir HFA 90 mcg/ac tuation aerosol inhaler RxNorm: 677480 1 Puff(s) INH QID as needed 05/10/2018 No Stop Date Active baclofen 20 mg tablet RxNorm: 453812 1 Tablet(s) PO TID as needed muscle spas ms 05/10/2018 06/08/2018 In active Singulair 10 mg tablet RxNorm: 947814 1 Tablet(s) PO daily 05/10/2018 08/07/2018 Inactive atenolol 50 mg tablet RxNorm: 034232 1 Tablet(s) PO BID 05/10/2018 08/07/2018 Inactive triamcinolone aceton destin 0.025 % topical cream RxNorm: 5002608 1 Application TOP BI D 05/10/2018 05/12/2018 In active paroxetine 20 mg tablet RxNorm: 7338915 2 Tablet(s) PO QHS 05/10/2018 04/19/2019 Inactive tramadol 50 mg tablet RxNorm: 558903 1 Tablet(s) PO TID as needed 05/10/2018 05/19/2018 Inactive Dexilant 60 mg capsu le, delayed release RxNorm: 224975 1 Capsule(s) PO daily 05/10/2018 05/12/2018 In active alprazolam 1 mg tablet RxNorm: 817427 1 Tablet(s) PO TID as needed 05/10/2018 08/06/2018 Inactive trazodone 100 mg tablet RxNorm: 405569 1 Tablet(s) PO QHS 05/10/2018 11/05/2018 Inactive cyclobenzaprine 10 m g tablet RxNorm: 499864 1 Tablet(s) PO TID as needed muscle spasms 05/07/2018 07/12/2018 Inactive trazodone 100 mg tablet RxNorm: 028506 1 Tablet(s) PO QHS 05/07/2018 05/09/2018 Inactive Adderall 30 mg tablet RxNorm: 127155 2 Tablet(s) PO daily 04/19/2018 05/18/2018 Inactive alprazolam 1 mg tablet RxNorm: 878564 1 Tablet(s) PO BID 04/19/2018 05/09/2018 Inactive Adderall 30 mg tablet RxNorm: 676013 2 Tablet(s) PO daily 03/26/2018 04/18/2018 Inactive paroxetine 20 mg tablet RxNorm: 6634507 2 Tablet(s) PO QHS 03/15/2018 05/09/2018 Inactive Adderall 30 mg tablet RxNorm: 894755 2 Tablet(s) PO daily 02/25/2018 03/25/2018 Inactive cyclobenzaprine 10 m g tablet RxNorm: 646481 1 Tablet(s) PO TID as needed muscle spasms 02/22/2018 05/06/2018 Inactive tramadol 50 mg tablet RxNorm: 166285 1 Tablet(s) PO TID as needed 02/22/2018 03/07/2018 Inactive tramadol 50 mg tablet RxNorm: 015097 1 Tablet(s) PO TID as needed 02/22/2018 02/21/2018 Inactive trazodone 100 mg tablet RxNorm: 217481 1 Tablet(s) PO QHS 02/03/2018 05/03/2018 Inactive trazodone 100 mg tablet RxNorm: 509392 1 Tablet(s) PO QHS 02/03/2018 02/02/2018 Inactive Adderall 30 mg tablet RxNorm: 287786 2 Tablet(s) PO daily 01/27/2018 02/18/2018 Inactive acyclovir 400 mg tablet RxNorm: 006065 1 Tablet(s) PO TID as needed take at ons et of symptoms of cold sores x 5 days 01/15/2018 05/09/2018 Inactive Bactrim DS 800 mg-16 0 mg tablet RxNorm: 658542 1 Tablet(s) PO BID 01/11/2018 01/17/2018 Inactive Bactrim DS 800 mg-16 0 mg tablet RxNorm: 084660 1 Tablet(s) PO BID 01/11/2018 01/10/2018 Inactive Dexilant 60 mg capsu le, delayed release RxNorm: 386641 1 Capsule(s) PO daily 12/23/2017 05/09/2018 In active Dexilant 60 mg capsu le, delayed release RxNorm: 474848 1 Capsule(s) PO daily 12/23/2017 12/22/2017 In active atenolol 50 mg tablet RxNorm: 176431 1 Tablet(s) PO BID 12/15/2017 05/09/2018 Inactive alprazolam 1 mg tablet RxNorm: 119575 1-1.5 Tablet(s) PO daily 12/15/2017 04/18/2018 Inactive ceftriaxone 500 mg s olution for injection RxNorm: 7841706 Inj 08/03/2015 08/03/2015 Inactive paroxetine 20 mg tablet RxNorm: 3279697 2 Tablet(s) PO QHS 08/01/2015 10/29/2015 Inactive pravastatin 40 mg ta blet RxNorm: 088861 1/2 Tablet(s) PO QHS 08/01/2015 12/14/2017 Inactive Trazadone 100mg 100 mg RxNorm: 1 PO daily 08/01/2015 11/27/2015 Inactive Trazadone 100mg 100 mg RxNorm: 1 PO daily 08/01/2015 05/04/2018 Inactive atenolol 50 mg tablet RxNorm: 498654 1 Tablet(s) PO daily 08/01/2015 10/29/2015 Inactive Fish Oil 360 mg-1,20 0 mg capsule RxNorm: 781517 1 Capsule(s) PO BID No Start Date Active Zyrtec 10 mg tablet RxNorm: 7118949 1 Tablet(s) PO daily No Start Date Active pravastatin 40 mg ta blet RxNorm: 387589 1/2 Tablet(s) PO QHS No Start Date 07/31/2015 Inactive Benadryl Allergy 25 mg tablet RxNorm: 3734383 1 Tablet(s) PO daily No Start Date 07/19/2018 Inactive Adderall 30 mg tablet RxNorm: 491529 2 Tablet(s) PO daily No Start Date 01/26/2018 Inactive Aspirin Low Dose 81 mg tablet,delayed release RxNorm: 706659 1 Tablet(s) PO BID No Start Date 07/19/2018 Inactive Singulair 10 mg tablet RxNorm: 103957 1 Tablet(s) PO daily No Start Date 05/09/2018 Inactive cyclobenzaprine 10 m g tablet RxNorm: 404399 1 Tablet(s) PO TID as needed muscle spasms No Start Date 02/21/2018 Inactive Trazadone 100mg 100 mg RxNorm: 1 PO daily No Start Date 07/31/2015 Inactive ibuprofen 800 mg tablet RxNorm: 034740 1 Tablet(s) PO BID -TID No Start Date 06/06/2019 Inactive clindamycin 1 %-arthur oyl peroxide 5 % topical gel RxNorm: 412976 TOP APPLY TO AFFECTED AREA(S) ON SERNA TWO TIMES A DAY No Start Date 11/16/2018 Inactive hydrocortisone 2.5 % topical cream RxNorm: 379725 1 Application TOP BID No Start Date 07/20/2018 Inactive alprazolam 1 mg tablet RxNorm: 602817 2 Tablet(s) PO daily No Start Date 12/14/2017 Inactive tramadol 50 mg tablet RxNorm: 492347 1-2 Tablet(s) PO Q6 as needed No Start Date 08/17/2018 Inactive Vitamin D2 50,000 un it capsule RxNorm: 8072312 1 Capsule(s) PO QW No Start Date 05/17/2018 Inactive pantoprazole 40 mg t ablet,delayed release RxNorm: 893408 1 Tablet(s) PO BID No Start Date 12/22/2017 Inactive atenolol 50 mg tablet RxNorm: 273377 1 Tablet(s) PO daily No Start Date 07/31/2015 Inactive hydrocodone 10 mg-ac etaminophen 325 mg tablet RxNorm: 110149 1 Tablet(s) PO Q6 as needed No Start Date 05/16/2019 Inactive paroxetine 20 mg tablet RxNorm: 505984 2 Tablet(s) PO QHS No Start Date 07/31/2015 Inactive Medication Administered Medication Codes Instruc tions Start Date Status testosterone cypionate 200 mg/mL intramuscular oil RxNorm: 6185654 1.25Milliliter 12/29/2018 No longer Active testosterone cypionate 200 mg/mL intramuscular oil RxNorm: 6532520 Milliliter 12/16/2018 No longer Active testosterone cypionate 200 mg/mL intramuscular oil RxNorm: 8838260 1Milliliter 11/15/2018 No longer Active testosterone cypionate 200 mg/mL intramuscular oil RxNorm: 826943 Milliliter 09/28/2018 No longer Active testosterone cypionate 200 mg/mL intramuscular oil RxNorm: 728886 Milliliter 09/16/2018 No longer Active testosterone cypionate 200 mg/mL intramuscular oil RxNorm: 769498 1Milliliter 09/02/2018 No longer Active testosterone cypionate 200 mg/mL intramuscular oil RxNorm: 736730 Milliliter 08/19/2018 No longer Active testosterone cypionate 200 mg/mL intramuscular oil RxNorm: 208349 Milliliter 07/15/2018 No longer Active testosterone cypionate 200 mg/mL intramuscular oil RxNorm: 495021 Milliliter 06/17/2018 No longer Active testosterone cypionate 200 mg/mL intramuscular oil RxNorm: 613973 Milliliter 05/21/2018 No longer Active ceftriaxone 500 mg solution for injection RxNorm: 0834979 08/03/2015 No longer A ctive Immunizations Vaccine [...] Code Result Date Comp. Metabolic Panel (14) 58434 GLUCOSE 117 mg/dL 12/17/2018 Comp. Metabolic Panel (14) 70770 BUN 17 mg/dL 12/17/2018 Comp. Metabolic Panel (14) 95174 CREATININE 0.99 mg/dL 12/17/2018 Comp. Metabolic Panel (14) 25360 SODIUM 137 mmol/L 12/17/2018 Comp. Metabolic Panel (14) 64959 POTASSIUM 4.6 mmol/L 12/17/2018 Comp. Metabolic Panel (14) 00302 CHLORIDE 102 mmol/L 12/17/2018 Comp. Metabolic Panel (14) 00282 CARBON DIOXIDE 21 mmol/L 12/17/2018 Comp. Metabolic Panel (14) 09425 CALCIUM 9.4 mg/dL 12/17/2018 Comp. Metabolic Panel (14) 79633 TOTAL PROTEIN 7.5 g/dL 12/17/2018 Comp. Metabolic Panel (14) 55964 ALBUMIN 5.1 g/dL 12/17/2018 Comp. Metabolic Panel (14) 48698 ALKALINE PHOSPHATASE 79 U/L 12/17/2018 Comp. Metabolic Panel (14) 16572 TOTAL BILIRUBIN 0.5 mg/dL 12/17/2018 Comp. Metabolic Panel (14) 72644 SGOT (AST) 34 U/L 12/17/2018 Comp. Metabolic Panel (14) 50444 SGPT (ALT) 40 U/L 12/17/2018 Comp. Metabolic Panel (14) 40123 eGFR (mL/min/1.73m2) 115 12/17/2018 Comp. Metabolic Panel (14) 98337 INTERPRETATION 12/17/2018 Testosterone Serum 635660 TESTOSTERONE 96.8 ng/dL 12/17/2018 Cbc With Differential/Platelet 35498 WBC 5.61 thou/uL 9 Cbc With Differential/Platelet 68136 RBC 5.53 mil/uL 12/17/2018 Cbc With Differential/Platelet 15401 HEMOGLOBIN 15.4 g/dL 12/17/2018 Cbc With Differential/Platelet 49985 HEMATOCRIT 48.1 % 12/17/2018 Cbc With Differential/Platelet 28438 MCV 87.0 fL 12/17/2018 Cbc With Differential/Platelet 42910 MCH 27.8 pg 12/17/2018 Cbc With Differential/Platelet 04873 MCHC 32.0 g/dL 12/17/2018 Cbc With Differential/Platelet 54528 RDW-CV 13.9 % 12/17/2018 Cbc With Differential/Platelet 35549 PLATELET COUNT 294 thou/uL 12/17/2018 Cbc With Differential/Platelet 92583 NEUTROPHIL % 71.2 % 12/17/2018 Cbc With Differential/Platelet 51367 LYMPHOCYTE % 22.2 % 12/17/2018 Cbc With Differential/Platelet 73301 MONOCYTE % 5.4 % 12/17/2018 Cbc With Differential/Platelet 79993 EOS % 0.9 % 12/17/2018 Cbc With Differential/Platelet 25012 BASO % 0.4 % 12/17/2018 Cbc With Differential/Platelet 29679 NEUTROPHIL ABS # 3.99 thou/uL 12/17/2018 Cbc With Differential/Platelet 37990 LYMPH ABS # 1.25 thou/uL 12/17/2018 Cbc With Differential/Platelet 55113 MONOCYTE ABS # 0.30 thou/uL 12/17/2018 Cbc With Differential/Platelet 86244 EOS ABS # 0.05 thou/uL 9 Cbc With Differential/Platelet 74913 BASO ABS # 0.02 thou/uL 12/17/2018 Lipid Panel 50569 CHOLES TEROL 227 mg/dL 12/17/2018 Lipid Panel 20994 TRIGLY CERIDES 229 mg/dL 12/17/2018 Lipid Panel 77176 HDL 41 mg/dL 12/17/2018 Lipid Panel 78822 CHOLES TEROL/HDL 5.54 12/17/2018 Lipid Panel 21141 LDL (C ALCULATED) 140 mg/dL 12/17/2018 Lipid Panel 97298 LDL/HDL 3.41 12/17/2018 Lipid Panel 23029 INTERP RETATION 12/17/2018 Tsh 221901 TSH 1.190 uIU/mL 12/17/2018 Testosterone Serum 955950 TESTOSTERONE 44.1 ng/dL 08/18/2018 Hemoglobin 386588 WBC 7.62 thou/uL 08/17/2018 Hemoglobin 243217 RBC 5.23 mil/uL 08/17/2018 Hemoglobin 882587 HEMOGL OBIN 15.0 g/dL 08/17/2018 Hemoglobin 902759 HEMATO CRIT 45.0 % 08/17/2018 Hemoglobin 025681 MCV 86.0 fL 08/17/2018 Hemoglobin 818595 MCH 28.7 pg 08/17/2018 Hemoglobin 832775 MCHC 33.3 g/dL 08/17/2018 Hemoglobin 012366 RDW-CV 12.9 % 08/17/2018 Hemoglobin 709917 PLATEL ET COUNT 313 thou/uL 08/17/2018 Hematocrit 843070 WBC 7.62 thou/uL 08/17/2018 Hematocrit 145671 RBC 5.23 mil/uL 08/17/2018 Hematocrit 585312 HEMOGL OBIN 15.0 g/dL 08/17/2018 Hematocrit 807260 HEMATO CRIT 45.0 % 08/17/2018 Hematocrit 520339 MCV 86.0 fL 08/17/2018 Hematocrit 967547 MCH 28.7 pg 08/17/2018 Hematocrit 539132 MCHC 33.3 g/dL 08/17/2018 Hematocrit 477659 RDW-CV 12.9 % 08/17/2018 Hematocrit 818837 PLATEL ET COUNT 313 thou/uL 08/17/2018 Culture Mrsa 016331 MRSA CULTURE SEE NOTES 06/21/2018 Comp. Metabolic Panel (14) 14086 GLUCOSE 101 mg/dL 06/18/2018 Comp. Metabolic Panel (14) 81372 BUN 18 mg/dL 06/18/2018 Comp. Metabolic Panel (14) 15063 CREATININE 0.99 mg/dL 06/18/2018 Comp. Metabolic Panel (14) 34821 SODIUM 141 mmol/L 06/18/2018 Comp. Metabolic Panel (14) 51694 POTASSIUM 4.3 mmol/L 06/18/2018 Comp. Metabolic Panel (14) 96606 CHLORIDE 103 mmol/L 06/18/2018 Comp. Metabolic Panel (14) 70231 CARBON DIOXIDE 23 mmol/L 06/18/2018 Comp. Metabolic Panel (14) 53946 CALCIUM 9.8 mg/dL 06/18/2018 Comp. Metabolic Panel (14) 82417 TOTAL PROTEIN 7.1 g/dL 06/18/2018 Comp. Metabolic Panel (14) 78891 ALBUMIN 5.2 g/dL 06/18/2018 Comp. Metabolic Panel (14) 20907 ALKALINE PHOSPHATASE 65 U/L 06/18/2018 Comp. Metabolic Panel (14) 42619 TOTAL BILIRUBIN 0.6 mg/dL 06/18/2018 Comp. Metabolic Panel (14) 81519 SGOT (AST) 21 U/L 06/18/2018 Comp. Metabolic Panel (14) 41807 SGPT (ALT) 24 U/L 06/18/2018 Comp. Metabolic Panel (14) 56163 eGFR (mL/min/1.73m2) 115 06/18/2018 Comp. Metabolic Panel (14) 90944 INTERPRETATION 06/18/2018 Cbc With Differential/Platelet 91903 WBC 4.55 thou/uL 8 Cbc With Differential/Platelet 22562 RBC 5.13 mil/uL 06/18/2018 Cbc With Differential/Platelet 68371 HEMOGLOBIN 14.4 g/dL 06/18/2018 Cbc With Differential/Platelet 59154 HEMATOCRIT 44.1 % 06/18/2018 Cbc With Differential/Platelet 35986 MCV 85.9 fL 06/18/2018 Cbc With Differential/Platelet 58118 MCH 28.1 pg 06/18/2018 Cbc With Differential/Platelet 76335 MCHC 32.7 g/dL 06/18/2018 Cbc With Differential/Platelet 29915 RDW-CV 13.4 % 06/18/2018 Cbc With Differential/Platelet 22876 PLATELET COUNT 287 thou/uL 06/18/2018 Cbc With Differential/Platelet 51161 NEUTROPHIL % 53.9 % 06/18/2018 Cbc With Differential/Platelet 11242 LYMPHOCYTE % 36.1 % 06/18/2018 Cbc With Differential/Platelet 05400 MONOCYTE % 7.4 % 06/18/2018 Cbc With Differential/Platelet 98009 EOS % 1.9 % 06/18/2018 Cbc With Differential/Platelet 67870 BASO % 0.8 % 06/18/2018 Cbc With Differential/Platelet 52893 NEUTROPHIL ABS # 2.45 thou/uL 06/18/2018 Cbc With Differential/Platelet 79509 LYMPH ABS # 1.64 thou/uL 06/18/2018 Cbc With Differential/Platelet 18534 MONOCYTE ABS # 0.34 thou/uL 06/18/2018 Cbc With Differential/Platelet 48547 EOS ABS # 0.09 thou/uL 8 Cbc With Differential/Platelet 57525 BASO ABS # 0.04 thou/uL 06/18/2018 Review [...] lips 06/07/2019 None Full Exam - General 1995 Ears/Nose/Throat oral cavity/pharynx/larynx Overall: oral mucosa clear 06/07/2019 None Full Exam - General 1995 Ears/Nose/Throat [...] deformity 12/20/2018 dayna Full Exam - General 1995 Constitutional general appearance Overall: well developed 12/16/2018 None Full Exam - General 1995 Constitutional general appearance Overall: in no acute distress 12/16/2018 None Full Exam - General 1995 Constitutional general appearance Overall: well nourished 12/16/2018 [...] Procedure Codes Date THER/PROPH/DIAG INJ SC/IM CPT-4: 77315 12/29/2018 THER/PROPH/DIAG INJ SC/IM CPT-4: 30323 12/16/2018 THER/PROPH/DIAG INJ SC/IM CPT-4: 83538 11/15/2018 THER/PROPH/DIAG INJ SC/IM CPT-4: 66706 09/28/2018 THER/PROPH/DIAG INJ SC/IM CPT-4: 87705 09/16/2018 THER/PROPH/DIAG INJ SC/IM CPT-4: 86178 09/02/2018 THER/PROPH/DIAG INJ SC/IM CPT-4: 23711 08/19/2018 IMMUNIZATION ADMIN CPT- 4: 19629 08/02/2018 FLU VAC NO PRSV 4 VA L 3 YRS+ CPT-4: 76371 08/02/2018 THER/PROPH/DIAG INJ SC/IM CPT-4: 34207 07/15/2018 THER/PROPH/DIAG INJ SC/IM CPT-4: 49949 06/17/2018 THER/PROPH/DIAG INJ SC/IM CPT-4: 29153 05/21/2018 THER/PROPH/DIAG INJ SC/IM CPT-4: 76297 08/03/2015 ROCEPHIN, PER 250 MG CPT-4: J0696 08/03/2015 Vital Signs Date Vital 06/07/2019 Blood Pressure 1: 160/88 Code: 8480-6 BMI: 36.0 Code: 56302-5 Heart Rate 1: 70 bpm Height: 5'7" SpO2: 94% Weight: 230 lbs 05/05/2019 Heigh t: Weight: 04/20/2019 Blood Pressure 1: 160/84 Code: 8480-6 BMI: 34.0 Code: 21919-4 Heart Rate 1: 82 bpm Height: 5'7" SpO2: 97% Weight: 216 lbs 13 o z 12/29/2018 Blood Pressure 1: 144/90 Code: 8480-6 BMI: 34.8 Code: 56418-4 Heart Rate 1: 91 bpm Height: 5'7" SpO2: 98% Weight: 222 lbs 12/20/2018 Blood Pressure 1: 124/76 Code: 8480-6 BMI: 35.4 Code: 52309-7 Heart Rate 1: 79 bpm Height: 5'7" SpO2: 99% Weight: 226 lbs 12/16/2018 Blood Pressure 1: 160/90 Code: 8480-6 BMI: 35.4 Code: 66061-8 Heart Rate 1: 90 bpm Height: 5'7" SpO2: 95% Weight: 226 lbs 11/01/2018 Blood Pressure 1: 146/82 Code: 8480-6 BMI: 36.0 Code: 15094-5 Heart Rate 1: 87 bpm Height: 5'7" SpO2: 98% Weight: 230 lbs 09/24/2018 Blood Pressure 1: 140/82 Code: 8480-6 BMI: 36.0 Code: 90105-4 Heart Rate 1: 86 bpm Height: 5'7" SpO2: 98% Temperature: 37.1 (C ) / 98.7 (F) Weight: 230 lbs 08/16/2018 Blood Pressure 1: 148/82 Code: 8480-6 Blood Pressure 2: 157/92 Code: 8480-6 BMI: 35.9 Code: 21997-7 Heart Rate 1: 72 bpm Height: 5'7" SpO2: 96% Weight: 229 lbs 08/02/2018 Blood Pressure 1: 142/86 Code: 8480-6 BMI: 35.2 Code: 29463-8 Heart Rate 1: 101 bpm Height: 5'7" SpO2: 97% Weight: 225 lbs 05/31/2018 Blood Pressure 1: 134/82 Code: 8480-6 BMI: 35.4 Code: 49024-5 Heart Rate 1: 91 bpm Height: 5'7" SpO2: 96% Weight: 226 lbs 05/20/2018 Blood Pressure 1: 160/100 Code: 8480-6 BMI: 35.2 Code: 02090-9 Heart Rate 1: 89 bpm Height: 5'7" SpO2: 98% Weight: 225 lbs 05/10/2018 Blood Pressure 1: 124/70 Code: 8480-6 BMI: 35.1 Code: 72152-7 Heart Rate 1: 93 bpm Height: 5'7" SpO2: 99% Weight: 224 lbs 01/15/2018 Blood Pressure 1: 142/92 Code: 8480-6 BMI: 36.3 Code: 68056-7 Heart Rate 1: 77 bpm Height: 5'7" SpO2: 98% Weight: 232 lbs 12/15/2017 Blood Pressure 1: 156/98 Code: 8480-6 BMI: 36.2 Code: 71219-0 Heart Rate 1: 87 bpm Height: 5'7" [...] eye 01/15/2018 None vision change Quality ac jamul 01/15/2018 None vision change Quality lo ss [...] vision 12/15/2017 None vision change Quality ac jamul 12/15/2017 None vision change Onset and Resolution sudden in onset 12/15/2017 None vision change Onset of Symptom 3.5 weeks ago 12/15/2017 None vision change Limitation on Activities severely limits vision 12/15/2017 None vision change Triggers n o known associated factors 12/15/2017 None Advance Directives No Advance Directive data Encounters Encounter Performer Loca tion Codes Date ([id number]) [id number] EST. P ATIENT, LEVEL IV Diagnosis: Cervicalgia[ICD10: M54.2] Diagnosis: Pain in thoracic spine[ICD10: M54.6] Diagnosis: Spinal stenosis, thoracic region[ICD10: M48.04] Diagnosis: Spinal stenosis, cervical region[ICD10: M48.02] Diagnosis: Changes in skin texture[ICD10: R23.4] Radha Gonzalez MD, [facility] CPT-4: 73489 06/07/2019 [id number] EST. PATIENT, LEVEL IV Diagnosis: Cervicalgia[ICD10: M54.2] Diagnosis: Other fatigue[ICD10: R53.83] Diagnosis: Essential (primary) hypertension[ICD10: I10] Diagnosis: Major depressive disorder, recurrent, moderate[ICD10: F33.1] Sonia Gonzalez MD, [facility] CPT-4: 13010 05/05/2019 ([id number]) 93761 EST. P ATIENT, LEVEL III Diagnosis: Essential (primary) hypertension[ICD10: I10] Diagnosis: Major depressive disorder, recurrent, moderate[ICD10: F33.1] Diagnosis: Dysphagia, pharyngeal phase[ICD10: R13.13] Radha Gonzalez MD, [facility] CPT-4: 41174 04/20/2019 ([id number]) 85996 EST. 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 PATIENT, LEVEL III Diagnosis: Pain in right arm[ICD10: M79.601] Sonia Gonzalez MD, [facility] CPT-4: 56873 12/20/2018 ([id number]) 71735 EST. 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 PATIENT, LEVEL III Diagnosis: Acute upper respiratory infection, unspecified[ICD10: J06.9] Diagnosis: Other allergic rhinitis[ICD10: J30.89] Sonia Gonzalez MD, [facility] CPT-4: 05025 09/24/2018 ([id number]) 85135 EST. 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 P ATIENT, LEVEL IV Diagnosis: Essential (primary) hypertension[ICD10: I10] Diagnosis: Cervicalgia[ICD10: M54.2] Radha Gonzalez MD, [facility] CPT-4: 19518 05/31/2018 ([id number]) 15294 EST. 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 06/07/2019 Appointment: Rad[facility] (15 min) Moderate 06/07/2019 Patient Education: [...] of over-medication. 05/05/2019 App[facility]ment[phone] [facility] [place] (30 min) Complex 05/05/2019 App[facility]ment: [phone] [facility] [place] (15 min) Moderate 05/05/2019 Patient Education: Patient [...] daily. 04/20/2019 Appointment: Radha Gonzalez WPtel: [phone] [facility] (15 min) Moderate 04/20/2019 Patient Education: Patient [...] injections. 12/29/2018 Appointment: Radha Gonzalez WPtel: [facility]7 [facility] (15 min) Moderate 12/29/2018 Patient Education: Patient Medication Summary Completed 12/29/2018 Patient Education: .Cervicalgia Neck Pain Completed 12/29/2018 Patient Education: Patient Medication Summary Completed 12/21/2018 Care Plan: %Hba1C add to blood from 12/17 LOINC : 12436-4 Pending 12/21/2018 Visit Plan: Right arm pain - dayna deformity noted - will refer to ortho - The pt is to use prn antiinflammatories to manage acute pain. The patient is to call the office if the pain is worsening or does not improve. 12/20/2018 Appointment: Sonia Potter WPtel: [phone] [facility] (15 min) Moderate 12/20/2018 Patient Education: Patient [...] testosterone. 12/16/2018 App[facility]ment: [phone] [facility] (15 min) Moderate 12/16/2018 Patient Education: [...] needed. 11/01/2018 App[facility]ment: [phone] [facility] (15 min) Moderate 11/01/2018 Patient Education: [...] allergy spray. 09/24/2018 Appointment: Sonia Potter WPtel: [phone] [facility] (15 min) Moderate 09/24/2018 Patient Education: Patient [...] at home. Multiple symptoms - referral to [facility] - appt in September 30, 2018. 08/16/2018 Appointment: Radha Gonzalez WPtel: [phone] [facility] (15 min) Moderate 08/16/2018 Patient Education: [...] at home. Multiple symptoms - referral to [facility] - rashes, hypogonadism, optic neuritis - all points to possible autoimmune syndrome. Spinal stenosis - of thoracic region - pt to talk to Dr. Dunaway about referral to a different specialist for his mid- back. Hypogonadism - continue with testosterone. Flu shot given today in clinic. 08/02/2018 Appointment: [facility] Gonzalez [phone] [facility] [place] (15 min) Moderate 08/02/2018 Patient Education: Patient Medication Summary Completed 08/02/2018 Care Plan: Referral Order SNOMED-CT : [id number] Pending 08/02/2018 Appointment: Injection 07/15/2018 Patient Education: [...] home. Cervical spine stenosis - referral to [facility] physical therapy. I have also recommended a Referral to Dr. Dunaway. I have called and talked to Dr. Dunaway - he looked at the pt's imaging and agrees that getting the pt in to be seen soon would be a preferred option. 05/31/2018 Appointment: Radha Gonzalez WPtel: [facility] [place] (15 min) Moderate 05/31/2018 Patient Education: Patient Medication Summary Completed 05/31/2018 Care Plan: Referral Order SNOMED-CT : 248698928 Pending 05/31/2018 Care Plan: Referral Order SNOMED-CT : 141507875 Pending 05/31/2018 Appointment: Injection 05/21/2018 Patient Education: Patient Medication Summary Completed 05/21/2018 Care Plan: Referral Order SNOMED-CT : 530082637 Pending 05/21/2018 Visit Plan: Cervical and thoracic s tenosis with spinal cord compression -refer for appt with Dr Marr -rx for hydrocodone for pain-start gabapentin at bedtime Soft tissue lesion-left chest-schedule CTfor further evaluation HTN-elevated today-hold adderall-monitor blood pressure 05/20/2018 Appointment: Hannah Simons WPtel: [facility] [place] (15 min) Moderate 05/20/2018 Patient Education: [...] this. 05/10/2018 Appointment: Sonia Potter WPtel: [phone] [facility] [place] (15 min) Moderate 05/10/2018 Patient Education: Patient Medication Summary Completed 05/10/2018 Visit Plan: Sleep apnea - rx for cp ap - actually autopap was recommended and pt given rx today. HTN - referral to dr. kapoor - pt needs stress testing. 01/15/2018 Appointment: Radha Gonzalez [facility]el[phone] [facility] [place] (15 min) Moderate 01/15/2018 Patient Education: Patient Medication Summary Completed 01/15/2018 Care Plan: Referral Order SNOMED-CT : [id number] Pending 01/15/2018 Visit Plan: Well Adult - [...] month. 12/15/2017 Appointment: Radha Gonzalez WPtel: [phone] [facility] New Patient 12/15/2017 Patient Education: Patient Medication Summary Completed 12/15/2017 Care Plan: CHEST X-RAY 2VW FRONTAL&LATL LOINC : 80573-6 Pending 12/15/2017 Appointment: Radha Gonzalez WPtel: [phone] (15 min) Moderate 12/08/2017 Appointment: (S) [...] Ordering Provider 08/03 Referral info faxed to [place]. Patient informed to be expecting a call from them with appt info Appointment Requested Referral: External, Ordering Provider Referral Appointment Requested Referral: External, Ordering Provider I called today; they will call him to schedule. Completed Referral: Armani Dunaway Referral Appointment Requested Referral: Mayte Kapoor Referral Appointment Requested Referral: [facility] WPtel: [phone] Referral Appointment Requested Referral: External, Ordering [...] - refill pain medication as needed. . steri strip placed on thumb of [...] at home. Multiple symptoms - referral to [facility] - appt in September 30, [...] at home. 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 . URI - Pt advised t o [...] home. Cervical spine stenosis - referral to [facility] physical therapy. I have also recommended a [...]
--- OUTSIDE RECORDS SUMMARY | 2020-04-28 00:24 | XMS REPORT | CCD ---
Author Author Nilton Gonzalez Organization [facility] Address [address] [place] [address] Phone Care Team Providers Care Motor Vehicle Licence Examiner Name Role Phone PP Unavailable CCM Unavailable Summary Purpose Interface Exchange Family history Brother Diagnosis Age At Onset Alcoholism Unknown Father Diagnosis Age At Onset Hypercholesterolemia Unknown Social History Social History Element Codes Description Effective Dates Employment Unknown Curre ntly unemployed 04/20/2019 Marital status Unknown S chanda 12/15/2017 Number of children Unknown 1 12/15/[address]: 328412726 Never smoker 12/15/[address]: 862331 Currently drinks alcohol <1 per week 12/15/2017 [...] 10 mg-ac etaminophen 325 mg tablet RxNorm: 091778 1 Tablet(s) PO TID 06/07/2019 No Stop Date Active prazosin 1 mg capsule RxNorm: 894308 2 Capsule(s) PO QPM 06/07/2019 10/04/2019 Active prazosin 1 mg capsule RxNorm: 929384 TAKE ONE CAPSULE BY MOUTH EVERY NIGHT AT BEDTIME 06/02/2019 06/06/2019 Inactive trazodone 100 mg tablet RxNorm: 535151 TAKE ONE TABLET BY MOUTH EVERY NIGHT AT BEDTIME 05/25/2019 11/20/2019 Active hydrocodone 10 mg-ac etaminophen 325 mg tablet RxNorm: 938187 1 Tablet(s) PO Q6 as needed 05/17/2019 06/06/2019 Inactive paroxetine 40 mg tablet RxNorm: 9057872 TAKE ONE TABLET BY MOUTH DAILY 05/16/2019 11/11/2019 Ac tive hydrocodone 5 mg-fanny taminophen 325 mg tablet RxNorm: 480947 1-2 Tablet(s) PO Q6 a s needed 05/16/2019 05/16/2019 Inactive prazosin 1 mg capsule RxNorm: 551961 1 Capsule(s) PO daily 05/05/2019 06/01/2019 Inactive paroxetine 40 mg tablet RxNorm: 5690232 1 Tablet(s) PO daily 04/20/2019 05/15/2019 Inactive Adderall 30 mg tablet RxNorm: 893611 2 Tablet(s) PO daily 04/19/2019 05/18/2019 Inactive alprazolam 1 mg tablet RxNorm: 750088 1 Tablet(s) PO TID as needed 04/13/2019 06/11/2019 Active hydrocodone 5 mg-fanny taminophen 325 mg tablet RxNorm: 291166 1-2 Tablet(s) PO Q6 a s needed 03/21/2019 05/15/2019 Inactive Adderall 30 mg tablet RxNorm: 673328 2 Tablet(s) PO daily 03/21/2019 04/14/2019 Inactive tramadol 50 mg tablet RxNorm: 638022 1-2 Tablet(s) PO Q6 as needed 03/14/2019 No Stop Date Active hydrocodone 5 mg-fanny taminophen 325 mg tablet RxNorm: 354643 1-2 Tablet(s) PO Q6 a s needed 02/23/2019 03/20/2019 Inactive Adderall 30 mg tablet RxNorm: 846890 2 Tablet(s) PO daily 02/23/2019 03/20/2019 Inactive Adderall 30 mg tablet RxNorm: 655572 2 Tablet(s) PO daily 01/24/2019 02/22/2019 Inactive ketoconazole 2 % top ical cream RxNorm: 401995 APPLY ONE GRAM TOPICA LLY TWICE A DAY 01/12/2019 01/26/2019 In active tramadol 50 mg tablet RxNorm: 616763 1-2 Tablet(s) PO Q6 as needed 01/11/2019 03/13/2019 In active atenolol 50 mg tablet RxNorm: 600534 1.5 Tablet(s) PO BID 12/29/2018 12/23/2019 Active hydrocodone 5 mg-fanny taminophen 325 mg tablet RxNorm: 940833 1-2 Tablet(s) PO Q6 a s needed 12/29/2018 02/22/2019 Inactive Adderall 30 mg tablet RxNorm: 914459 2 Tablet(s) PO daily 12/29/2018 01/23/2019 Inactive hydrocodone 5 mg-fanny taminophen 325 mg tablet RxNorm: 512105 1-2 Tablet(s) PO Q6 a s needed 12/29/2018 12/28/2018 Inactive testosterone cypiona te 200 mg/mL intramuscular oil RxNorm: 8816981 1.25 Milliliter(s) IM 12/29/2018 12/29/2018 Inactive hydrocodone 5 mg-fanny taminophen 325 mg tablet RxNorm: 305985 1 Tablet(s) PO TID SC N 12/28/2018 12/28/2018 In active testosterone cypiona te 200 mg/mL intramuscular oil RxNorm: 3143800 1.25 Milliliter(s) IM 2 x month 12/22/2018 04/12/2019 Inactive gabapentin 300 mg ca psule RxNorm: 804278 1 Capsule(s) PO QID 12/16/2018 12/10/2019 Active testosterone cypiona te 200 mg/mL intramuscular oil RxNorm: 0446632 Milliliter(s) IM 12/16/2018 12/16/2018 In active Voltaren 1 % topical gel RxNorm: 717322 2 Gram(s) APPLY TOPIC ALLY four TIMES A DAY 12/16/2018 01/20/2019 In active trazodone 100 mg tablet RxNorm: 915837 TAKE ONE TABLET BY MOUTH EVERY NIGHT AT BEDTIME 12/07/2018 05/24/2019 Inactive hydrocodone 5 mg-fanny taminophen 325 mg tablet RxNorm: 304597 1 Tablet(s) PO TID SC N 11/29/2018 12/27/2018 In active Adderall 30 mg tablet RxNorm: 627566 2 Tablet(s) PO daily 11/29/2018 12/28/2018 Inactive clindamycin 1 %-arthur oyl peroxide 5 % topical gel RxNorm: 279197 TOP APPLY TO AFFECTED AREA(S) ON SERNA TWO TIMES A DAY 11/17/2018 No Stop Date Active testosterone cypiona te 200 mg/mL intramuscular oil RxNorm: 6481222 1 Milliliter(s) IM 2 x month 11/17/2018 12/21/2018 Inactive Zorvolex 35 mg capsule RxNorm: 4584673 1 Capsule(s) PO TID as needed for pain 11/15/2018 05/13/2019 In active ketoconazole 2 % top ical cream RxNorm: 018619 APPLY ONE GRAM TOPICA LLY TWICE A DAY 11/15/2018 11/29/2018 In active testosterone cypiona te 200 mg/mL intramuscular oil RxNorm: 3308699 1 Milliliter(s) IM 11/15/2018 11/14/2018 Inactive hydrocodone 5 mg-fanny taminophen 325 mg tablet RxNorm: 923629 1 Tablet(s) PO TID SC N 11/02/2018 11/28/2018 In active Singulair 10 mg tablet RxNorm: 687131 1 Tablet(s) PO daily 11/01/2018 07/28/2019 Active testosterone cypiona te 200 mg/mL intramuscular oil RxNorm: 8105034 1 Milliliter(s) IM 2 x month 11/01/2018 11/16/2018 Inactive Adderall 30 mg tablet RxNorm: 849486 2 Tablet(s) PO daily 10/29/2018 11/27/2018 Inactive gabapentin 300 mg ca psule RxNorm: 309491 1 Capsule(s) PO BID m ay take TID 10/19/2018 12/15/2018 In active gabapentin 300 mg ca psule RxNorm: 341838 1 Capsule(s) PO BID m ay take TID 10/19/2018 10/18/2018 In active alprazolam 1 mg tablet RxNorm: 579285 1 Tablet(s) PO TID as needed 10/15/2018 04/19/2019 Inactive testosterone cypiona te 200 mg/mL intramuscular oil RxNorm: 176446 Milliliter(s) IM 09/28/2018 09/28/2018 In active pravastatin 40 mg ta blet RxNorm: 107067 TAKE ONE TABLET BY [facility] EVERY NIGHT AT BEDTIME 09/27/2018 09/21/2019 Active Tamiflu 75 mg capsule RxNorm: 525719 1 Capsule(s) PO BID 09/24/2018 09/28/2018 Inactive Adderall 30 mg tablet RxNorm: 730964 2 Tablet(s) PO daily 09/20/2018 10/19/2018 Inactive hydrocodone 5 mg-fanny taminophen 325 mg tablet RxNorm: 126913 1 Tablet(s) PO TID SC N 09/20/2018 11/01/2018 In active testosterone cypiona te 200 mg/mL intramuscular oil RxNorm: 848489 Milliliter(s) IM 09/16/2018 09/16/2018 In active testosterone cypiona te 200 mg/mL intramuscular oil RxNorm: 405205 1 Milliliter(s) IM 09/02/2018 09/02/2018 Inactive testosterone cypiona te 200 mg/mL intramuscular oil RxNorm: 486118 Milliliter(s) IM 08/19/2018 08/19/2018 In active Adderall 30 mg tablet RxNorm: 592644 2 Tablet(s) PO daily 08/18/2018 09/16/2018 Inactive tramadol 50 mg tablet RxNorm: 687890 1-2 Tablet(s) PO Q6 as needed 08/18/2018 01/12/2019 In active Dexilant 60 mg capsu le, delayed release RxNorm: 511310 1 Capsule(s) PO BID 08/17/2018 08/11/2019 Ac tive ketoconazole 2 % top ical cream RxNorm: 442347 1 Gram(s) TOP BID 08/17/2018 08/26/2018 Inactive Zorvolex 35 mg capsule RxNorm: 5986187 1 Capsule(s) PO TID as needed for pain 08/17/2018 08/16/2018 In active atenolol 50 mg tablet RxNorm: 214590 1 Tablet(s) PO BID 08/17/2018 12/28/2018 Inactive Zorvolex 35 mg capsule RxNorm: 6178023 1 Capsule(s) PO TID as needed for pain 08/17/2018 11/14/2018 In active ketoconazole 2 % top ical cream RxNorm: 774014 1 Gram(s) TOP BID 08/02/2018 08/11/2018 Inactive hydrocortisone 2.5 % topical cream RxNorm: 110731 1 Application TOP BID 07/21/2018 No Stop Date Active Adderall 30 mg tablet RxNorm: 218466 2 Tablet(s) PO daily 07/20/2018 08/17/2018 Inactive testosterone cypiona te 200 mg/mL intramuscular oil RxNorm: 606227 Milliliter(s) IM 07/15/2018 07/15/2018 In active alprazolam 1 mg tablet RxNorm: 938331 1 Tablet(s) PO TID as needed 07/12/2018 09/07/2018 Inactive hydrocodone 5 mg-fanny taminophen 325 mg tablet RxNorm: 748780 1 Tablet(s) PO TID SC N 06/30/2018 09/19/2018 In active pravastatin 40 mg ta blet RxNorm: 405779 1 Tablet(s) PO QHS 06/18/2018 09/15/2018 Inactive Adderall 30 mg tablet RxNorm: 105894 2 Tablet(s) PO daily 06/18/2018 07/17/2018 Inactive testosterone cypiona te 200 mg/mL intramuscular oil RxNorm: 602255 Milliliter(s) IM 06/17/2018 06/17/2018 In active Voltaren 1 % topical gel RxNorm: 113936 APPLY TOPICALLY TWO T IMES A DAY 06/16/2018 07/21/2018 In active Vitamin D2 50,000 un it capsule RxNorm: 1379222 1 Capsule(s) PO QW 05/21/2018 No Stop Date Active Adderall 30 mg tablet RxNorm: 971145 2 Tablet(s) PO daily 05/21/2018 06/17/2018 Inactive testosterone cypiona te 200 mg/mL intramuscular oil RxNorm: 102217 Milliliter(s) IM 05/21/2018 05/21/2018 In active testosterone cypiona te 200 mg/mL intramuscular oil RxNorm: 1681109 1 Milliliter(s) IM monthly 05/20/2018 09/16/2018 Inactive testosterone cypiona te 200 mg/mL intramuscular oil RxNorm: 899268 1 Milliliter(s) IM monthly 05/20/2018 05/19/2018 Inactive hydrocodone 5 mg-fanny taminophen 325 mg tablet RxNorm: 261754 1 Tablet(s) PO TID SC N 05/20/2018 06/29/2018 In active Vitamin D2 50,000 un it capsule RxNorm: 5722742 1 Capsule(s) PO QW 05/18/2018 05/20/2018 Inactive triamcinolone aceton destin 0.025 % topical cream RxNorm: 3745120 1 Application TOP BI D 05/13/2018 No Stop Date Active Dexilant 60 mg capsu le, delayed release RxNorm: 199978 1 Capsule(s) PO BID 05/13/2018 08/16/2018 In active Zorvolex 35 mg capsule RxNorm: 3980986 1 Capsule(s) PO TID as needed for pain 05/12/2018 08/09/2018 In active Voltaren 1 % topical gel RxNorm: 013172 1 Application TOP BID 05/12/2018 06/15/2018 Inactive acyclovir 400 mg tablet RxNorm: 652820 1 Tablet(s) PO TID as needed take at ons et of symptoms of cold sores x 5 days 05/10/2018 No Stop Date Active ProAir HFA 90 mcg/ac tuation aerosol inhaler RxNorm: 654550 1 Puff(s) INH QID as needed 05/10/2018 No Stop Date Active baclofen 20 mg tablet RxNorm: 468261 1 Tablet(s) PO TID as needed muscle spas ms 05/10/2018 06/08/2018 In active Singulair 10 mg tablet RxNorm: 012799 1 Tablet(s) PO daily 05/10/2018 08/07/2018 Inactive atenolol 50 mg tablet RxNorm: 033183 1 Tablet(s) PO BID 05/10/2018 08/07/2018 Inactive triamcinolone aceton destin 0.025 % topical cream RxNorm: 1044943 1 Application TOP BI D 05/10/2018 05/12/2018 In active paroxetine 20 mg tablet RxNorm: 7892444 2 Tablet(s) PO QHS 05/10/2018 04/19/2019 Inactive tramadol 50 mg tablet RxNorm: 769874 1 Tablet(s) PO TID as needed 05/10/2018 05/19/2018 Inactive Dexilant 60 mg capsu le, delayed release RxNorm: 083119 1 Capsule(s) PO daily 05/10/2018 05/12/2018 In active alprazolam 1 mg tablet RxNorm: 665998 1 Tablet(s) PO TID as needed 05/10/2018 08/06/2018 Inactive trazodone 100 mg tablet RxNorm: 798038 1 Tablet(s) PO QHS 05/10/2018 11/05/2018 Inactive cyclobenzaprine 10 m g tablet RxNorm: 875751 1 Tablet(s) PO TID as needed muscle spasms 05/07/2018 07/12/2018 Inactive trazodone 100 mg tablet RxNorm: 667835 1 Tablet(s) PO QHS 05/07/2018 05/09/2018 Inactive Adderall 30 mg tablet RxNorm: 159558 2 Tablet(s) PO daily 04/19/2018 05/18/2018 Inactive alprazolam 1 mg tablet RxNorm: 061141 1 Tablet(s) PO BID 04/19/2018 05/09/2018 Inactive Adderall 30 mg tablet RxNorm: 298835 2 Tablet(s) PO daily 03/26/2018 04/18/2018 Inactive paroxetine 20 mg tablet RxNorm: 6478823 2 Tablet(s) PO QHS 03/15/2018 05/09/2018 Inactive Adderall 30 mg tablet RxNorm: 362471 2 Tablet(s) PO daily 02/25/2018 03/25/2018 Inactive cyclobenzaprine 10 m g tablet RxNorm: 610867 1 Tablet(s) PO TID as needed muscle spasms 02/22/2018 05/06/2018 Inactive tramadol 50 mg tablet RxNorm: 391543 1 Tablet(s) PO TID as needed 02/22/2018 03/07/2018 Inactive tramadol 50 mg tablet RxNorm: 983636 1 Tablet(s) PO TID as needed 02/22/2018 02/21/2018 Inactive trazodone 100 mg tablet RxNorm: 205666 1 Tablet(s) PO QHS 02/03/2018 05/03/2018 Inactive trazodone 100 mg tablet RxNorm: 075775 1 Tablet(s) PO QHS 02/03/2018 02/02/2018 Inactive Adderall 30 mg tablet RxNorm: 528323 2 Tablet(s) PO daily 01/27/2018 02/18/2018 Inactive acyclovir 400 mg tablet RxNorm: 487712 1 Tablet(s) PO TID as needed take at ons et of symptoms of cold sores x 5 days 01/15/2018 05/09/2018 Inactive Bactrim DS 800 mg-16 0 mg tablet RxNorm: 872733 1 Tablet(s) PO BID 01/11/2018 01/17/2018 Inactive Bactrim DS 800 mg-16 0 mg tablet RxNorm: 685578 1 Tablet(s) PO BID 01/11/2018 01/10/2018 Inactive Dexilant 60 mg capsu le, delayed release RxNorm: 244936 1 Capsule(s) PO daily 12/23/2017 05/09/2018 In active Dexilant 60 mg capsu le, delayed release RxNorm: 881690 1 Capsule(s) PO daily 12/23/2017 12/22/2017 In active atenolol 50 mg tablet RxNorm: 360528 1 Tablet(s) PO BID 12/15/2017 05/09/2018 Inactive alprazolam 1 mg tablet RxNorm: 972236 1-1.5 Tablet(s) PO daily 12/15/2017 04/18/2018 Inactive ceftriaxone 500 mg s olution for injection RxNorm: 0855252 Inj 08/03/2015 08/03/2015 Inactive paroxetine 20 mg tablet RxNorm: 4578466 2 Tablet(s) PO QHS 08/01/2015 10/29/2015 Inactive pravastatin 40 mg ta blet RxNorm: 210296 1/2 Tablet(s) PO QHS 08/01/2015 12/14/2017 Inactive Trazadone 100mg 100 mg RxNorm: 1 PO daily 08/01/2015 11/27/2015 Inactive Trazadone 100mg 100 mg RxNorm: 1 PO daily 08/01/2015 05/04/2018 Inactive atenolol 50 mg tablet RxNorm: 161822 1 Tablet(s) PO daily 08/01/2015 10/29/2015 Inactive Fish Oil 360 mg-1,20 0 mg capsule RxNorm: 050724 1 Capsule(s) PO BID No Start Date Active Zyrtec 10 mg tablet RxNorm: 2280850 1 Tablet(s) PO daily No Start Date Active pravastatin 40 mg ta blet RxNorm: 316355 1/2 Tablet(s) PO QHS No Start Date 07/31/2015 Inactive Benadryl Allergy 25 mg tablet RxNorm: 3382969 1 Tablet(s) PO daily No Start Date 07/19/2018 Inactive Adderall 30 mg tablet RxNorm: 706735 2 Tablet(s) PO daily No Start Date 01/26/2018 Inactive Aspirin Low Dose 81 mg tablet,delayed release RxNorm: 882988 1 Tablet(s) PO BID No Start Date 07/19/2018 Inactive Singulair 10 mg tablet RxNorm: 612700 1 Tablet(s) PO daily No Start Date 05/09/2018 Inactive cyclobenzaprine 10 m g tablet RxNorm: 830972 1 Tablet(s) PO TID as needed muscle spasms No Start Date 02/21/2018 Inactive Trazadone 100mg 100 mg RxNorm: 1 PO daily No Start Date 07/31/2015 Inactive ibuprofen 800 mg tablet RxNorm: 196684 1 Tablet(s) PO BID -TID No Start Date 06/06/2019 Inactive clindamycin 1 %-arthur oyl peroxide 5 % topical gel RxNorm: 311088 TOP APPLY TO AFFECTED AREA(S) ON SERNA TWO TIMES A DAY No Start Date 11/16/2018 Inactive hydrocortisone 2.5 % topical cream RxNorm: 991577 1 Application TOP BID No Start Date 07/20/2018 Inactive alprazolam 1 mg tablet RxNorm: 225853 2 Tablet(s) PO daily No Start Date 12/14/2017 Inactive tramadol 50 mg tablet RxNorm: 294045 1-2 Tablet(s) PO Q6 as needed No Start Date 08/17/2018 Inactive Vitamin D2 50,000 un it capsule RxNorm: 8628114 1 Capsule(s) PO QW No Start Date 05/17/2018 Inactive pantoprazole 40 mg t ablet,delayed release RxNorm: 230672 1 Tablet(s) PO BID No Start Date 12/22/2017 Inactive atenolol 50 mg tablet RxNorm: 958641 1 Tablet(s) PO daily No Start Date 07/31/2015 Inactive hydrocodone 10 mg-ac etaminophen 325 mg tablet RxNorm: 801129 1 Tablet(s) PO Q6 as needed No Start Date 05/16/2019 Inactive paroxetine 20 mg tablet RxNorm: 760255 2 Tablet(s) PO QHS No Start Date 07/31/2015 Inactive Medication Administered Medication Codes Instruc tions Start Date Status testosterone cypionate 200 mg/mL intramuscular oil RxNorm: 7661789 1.25Milliliter 12/29/2018 No longer Active testosterone cypionate 200 mg/mL intramuscular oil RxNorm: 1389316 Milliliter 12/16/2018 No longer Active testosterone cypionate 200 mg/mL intramuscular oil RxNorm: 6061204 1Milliliter 11/15/2018 No longer Active testosterone cypionate 200 mg/mL intramuscular oil RxNorm: 049101 Milliliter 09/28/2018 No longer Active testosterone cypionate 200 mg/mL intramuscular oil RxNorm: 695446 Milliliter 09/16/2018 No longer Active testosterone cypionate 200 mg/mL intramuscular oil RxNorm: 827687 1Milliliter 09/02/2018 No longer Active testosterone cypionate 200 mg/mL intramuscular oil RxNorm: 206930 Milliliter 08/19/2018 No longer Active testosterone cypionate 200 mg/mL intramuscular oil RxNorm: 562893 Milliliter 07/15/2018 No longer Active testosterone cypionate 200 mg/mL intramuscular oil RxNorm: 146294 Milliliter 06/17/2018 No longer Active testosterone cypionate 200 mg/mL intramuscular oil RxNorm: 730035 Milliliter 05/21/2018 No longer Active ceftriaxone 500 mg solution for injection RxNorm: 9377163 08/03/2015 No longer A ctive Immunizations Vaccine [...] Code Result Date Comp. Metabolic Panel (14) 08656 GLUCOSE 117 mg/dL 12/17/2018 Comp. Metabolic Panel (14) 80893 BUN 17 mg/dL 12/17/2018 Comp. Metabolic Panel (14) 22500 CREATININE 0.99 mg/dL 12/17/2018 Comp. Metabolic Panel (14) 61257 SODIUM 137 mmol/L 12/17/2018 Comp. Metabolic Panel (14) 38011 POTASSIUM 4.6 mmol/L 12/17/2018 Comp. Metabolic Panel (14) 34883 CHLORIDE 102 mmol/L 12/17/2018 Comp. Metabolic Panel (14) 42693 CARBON DIOXIDE 21 mmol/L 12/17/2018 Comp. Metabolic Panel (14) 80837 CALCIUM 9.4 mg/dL 12/17/2018 Comp. Metabolic Panel (14) 59416 TOTAL PROTEIN 7.5 g/dL 12/17/2018 Comp. Metabolic Panel (14) 62034 ALBUMIN 5.1 g/dL 12/17/2018 Comp. Metabolic Panel (14) 56998 ALKALINE PHOSPHATASE 79 U/L 12/17/2018 Comp. Metabolic Panel (14) 64201 TOTAL BILIRUBIN 0.5 mg/dL 12/17/2018 Comp. Metabolic Panel (14) 66978 SGOT (AST) 34 U/L 12/17/2018 Comp. Metabolic Panel (14) 66821 SGPT (ALT) 40 U/L 12/17/2018 Comp. Metabolic Panel (14) 97588 eGFR (mL/min/1.73m2) 115 12/17/2018 Comp. Metabolic Panel (14) 08531 INTERPRETATION 12/17/2018 Testosterone Serum 063227 TESTOSTERONE 96.8 ng/dL 12/17/2018 Cbc With Differential/Platelet 36154 WBC 5.61 thou/uL 9 Cbc With Differential/Platelet 63041 RBC 5.53 mil/uL 12/17/2018 Cbc With Differential/Platelet 87161 HEMOGLOBIN 15.4 g/dL 12/17/2018 Cbc With Differential/Platelet 91987 HEMATOCRIT 48.1 % 12/17/2018 Cbc With Differential/Platelet 47079 MCV 87.0 fL 12/17/2018 Cbc With Differential/Platelet 54332 MCH 27.8 pg 12/17/2018 Cbc With Differential/Platelet 53132 MCHC 32.0 g/dL 12/17/2018 Cbc With Differential/Platelet 45502 RDW-CV 13.9 % 12/17/2018 Cbc With Differential/Platelet 07675 PLATELET COUNT 294 thou/uL 12/17/2018 Cbc With Differential/Platelet 06217 NEUTROPHIL % 71.2 % 12/17/2018 Cbc With Differential/Platelet 56791 LYMPHOCYTE % 22.2 % 12/17/2018 Cbc With Differential/Platelet 03838 MONOCYTE % 5.4 % 12/17/2018 Cbc With Differential/Platelet 05524 EOS % 0.9 % 12/17/2018 Cbc With Differential/Platelet 78357 BASO % 0.4 % 12/17/2018 Cbc With Differential/Platelet 61053 NEUTROPHIL ABS # 3.99 thou/uL 12/17/2018 Cbc With Differential/Platelet 76630 LYMPH ABS # 1.25 thou/uL 12/17/2018 Cbc With Differential/Platelet 11774 MONOCYTE ABS # 0.30 thou/uL 12/17/2018 Cbc With Differential/Platelet 28501 EOS ABS # 0.05 thou/uL 9 Cbc With Differential/Platelet 48208 BASO ABS # 0.02 thou/uL 12/17/2018 Lipid Panel 17209 CHOLES TEROL 227 mg/dL 12/17/2018 Lipid Panel 84933 TRIGLY CERIDES 229 mg/dL 12/17/2018 Lipid Panel 41284 HDL 41 mg/dL 12/17/2018 Lipid Panel 24126 CHOLES TEROL/HDL 5.54 12/17/2018 Lipid Panel 22056 LDL (C ALCULATED) 140 mg/dL 12/17/2018 Lipid Panel 44586 LDL/HDL 3.41 12/17/2018 Lipid Panel 16610 INTERP RETATION 12/17/2018 Tsh 004571 TSH 1.190 uIU/mL 12/17/2018 Testosterone Serum 562057 TESTOSTERONE 44.1 ng/dL 08/18/2018 Hemoglobin 223904 WBC 7.62 thou/uL 08/17/2018 Hemoglobin 478130 RBC 5.23 mil/uL 08/17/2018 Hemoglobin 142225 HEMOGL OBIN 15.0 g/dL 08/17/2018 Hemoglobin 085407 HEMATO CRIT 45.0 % 08/17/2018 Hemoglobin 288859 MCV 86.0 fL 08/17/2018 Hemoglobin 178727 MCH 28.7 pg 08/17/2018 Hemoglobin 383792 MCHC 33.3 g/dL 08/17/2018 Hemoglobin 479671 RDW-CV 12.9 % 08/17/2018 Hemoglobin 154150 PLATEL ET COUNT 313 thou/uL 08/17/2018 Hematocrit 381378 WBC 7.62 thou/uL 08/17/2018 Hematocrit 425949 RBC 5.23 mil/uL 08/17/2018 Hematocrit 825505 HEMOGL OBIN 15.0 g/dL 08/17/2018 Hematocrit 774168 HEMATO CRIT 45.0 % 08/17/2018 Hematocrit 345041 MCV 86.0 fL 08/17/2018 Hematocrit 376984 MCH 28.7 pg 08/17/2018 Hematocrit 021781 MCHC 33.3 g/dL 08/17/2018 Hematocrit 629465 RDW-CV 12.9 % 08/17/2018 Hematocrit 662548 PLATEL ET COUNT 313 thou/uL 08/17/2018 Culture Mrsa 930629 MRSA CULTURE SEE NOTES 06/21/2018 Comp. Metabolic Panel (14) 18576 GLUCOSE 101 mg/dL 06/18/2018 Comp. Metabolic Panel (14) 26507 BUN 18 mg/dL 06/18/2018 Comp. Metabolic Panel (14) 23806 CREATININE 0.99 mg/dL 06/18/2018 Comp. Metabolic Panel (14) 18586 SODIUM 141 mmol/L 06/18/2018 Comp. Metabolic Panel (14) 58275 POTASSIUM 4.3 mmol/L 06/18/2018 Comp. Metabolic Panel (14) 00708 CHLORIDE 103 mmol/L 06/18/2018 Comp. Metabolic Panel (14) 32286 CARBON DIOXIDE 23 mmol/L 06/18/2018 Comp. Metabolic Panel (14) 59640 CALCIUM 9.8 mg/dL 06/18/2018 Comp. Metabolic Panel (14) 37383 TOTAL PROTEIN 7.1 g/dL 06/18/2018 Comp. Metabolic Panel (14) 90895 ALBUMIN 5.2 g/dL 06/18/2018 Comp. Metabolic Panel (14) 68634 ALKALINE PHOSPHATASE 65 U/L 06/18/2018 Comp. Metabolic Panel (14) 53972 TOTAL BILIRUBIN 0.6 mg/dL 06/18/2018 Comp. Metabolic Panel (14) 13371 SGOT (AST) 21 U/L 06/18/2018 Comp. Metabolic Panel (14) 74957 SGPT (ALT) 24 U/L 06/18/2018 Comp. Metabolic Panel (14) 41563 eGFR (mL/min/1.73m2) 115 06/18/2018 Comp. Metabolic Panel (14) 50331 INTERPRETATION 06/18/2018 Cbc With Differential/Platelet 59137 WBC 4.55 thou/uL 8 Cbc With Differential/Platelet 59926 RBC 5.13 mil/uL 06/18/2018 Cbc With Differential/Platelet 66163 HEMOGLOBIN 14.4 g/dL 06/18/2018 Cbc With Differential/Platelet 12562 HEMATOCRIT 44.1 % 06/18/2018 Cbc With Differential/Platelet 19186 MCV 85.9 fL 06/18/2018 Cbc With Differential/Platelet 97047 MCH 28.1 pg 06/18/2018 Cbc With Differential/Platelet 36517 MCHC 32.7 g/dL 06/18/2018 Cbc With Differential/Platelet 52596 RDW-CV 13.4 % 06/18/2018 Cbc With Differential/Platelet 07621 PLATELET COUNT 287 thou/uL 06/18/2018 Cbc With Differential/Platelet 01153 NEUTROPHIL % 53.9 % 06/18/2018 Cbc With Differential/Platelet 97458 LYMPHOCYTE % 36.1 % 06/18/2018 Cbc With Differential/Platelet 32987 MONOCYTE % 7.4 % 06/18/2018 Cbc With Differential/Platelet 75273 EOS % 1.9 % 06/18/2018 Cbc With Differential/Platelet 87315 BASO % 0.8 % 06/18/2018 Cbc With Differential/Platelet 27336 NEUTROPHIL ABS # 2.45 thou/uL 06/18/2018 Cbc With Differential/Platelet 41984 LYMPH ABS # 1.64 thou/uL 06/18/2018 Cbc With Differential/Platelet 28595 MONOCYTE ABS # 0.34 thou/uL 06/18/2018 Cbc With Differential/Platelet 83898 EOS ABS # 0.09 thou/uL 8 Cbc With Differential/Platelet 03793 BASO ABS # 0.04 thou/uL 06/18/2018 Review [...] Procedure Codes Date THER/PROPH/DIAG INJ SC/IM CPT-4: 49827 12/29/2018 THER/PROPH/DIAG INJ SC/IM CPT-4: 73615 12/16/2018 THER/PROPH/DIAG INJ SC/IM CPT-4: 07365 11/15/2018 THER/PROPH/DIAG INJ SC/IM CPT-4: 00770 09/28/2018 THER/PROPH/DIAG INJ SC/IM CPT-4: 08315 09/16/2018 THER/PROPH/DIAG INJ SC/IM CPT-4: 55955 09/02/2018 THER/PROPH/DIAG INJ SC/IM CPT-4: 67126 08/19/2018 IMMUNIZATION ADMIN CPT- 4: 60914 08/02/2018 FLU VAC NO PRSV 4 VA L 3 YRS+ CPT-4: 21498 08/02/2018 THER/PROPH/DIAG INJ SC/IM CPT-4: 82374 07/15/2018 THER/PROPH/DIAG INJ SC/IM CPT-4: 66518 06/17/2018 THER/PROPH/DIAG INJ SC/IM CPT-4: 02314 05/21/2018 THER/PROPH/DIAG INJ SC/IM CPT-4: 04183 08/03/2015 ROCEPHIN, PER 250 MG CPT-4: J0696 08/03/2015 Vital Signs Date Vital 06/07/2019 Blood Pressure 1: 160/88 Code: 8480-6 BMI: 36.0 Code: 24820-2 Heart Rate 1: 70 bpm Height: 5'7" SpO2: 94% Weight: 230 lbs 05/05/2019 Heigh t: Weight: 04/20/2019 Blood Pressure 1: 160/84 Code: 8480-6 BMI: 34.0 Code: 14639-3 Heart Rate 1: 82 bpm Height: 5'7" SpO2: 97% Weight: 216 lbs 13 o z 12/29/2018 Blood Pressure 1: 144/90 Code: 8480-6 BMI: 34.8 Code: 04078-8 Heart Rate 1: 91 bpm Height: 5'7" SpO2: 98% Weight: 222 lbs 12/20/2018 Blood Pressure 1: 124/76 Code: 8480-6 BMI: 35.4 Code: 61707-8 Heart Rate 1: 79 bpm Height: 5'7" SpO2: 99% Weight: 226 lbs 12/16/2018 Blood Pressure 1: 160/90 Code: 8480-6 BMI: 35.4 Code: 99666-7 Heart Rate 1: 90 bpm Height: 5'7" SpO2: 95% Weight: 226 lbs 11/01/2018 Blood Pressure 1: 146/82 Code: 8480-6 BMI: 36.0 Code: 91763-8 Heart Rate 1: 87 bpm Height: 5'7" SpO2: 98% Weight: 230 lbs 09/24/2018 Blood Pressure 1: 140/82 Code: 8480-6 BMI: 36.0 Code: 97133-0 Heart Rate 1: 86 bpm Height: 5'7" SpO2: 98% Temperature: 37.1 (C ) / 98.7 (F) Weight: 230 lbs 08/16/2018 Blood Pressure 1: 148/82 Code: 8480-6 Blood Pressure 2: 157/92 Code: 8480-6 BMI: 35.9 Code: 53104-5 Heart Rate 1: 72 bpm Height: 5'7" SpO2: 96% Weight: 229 lbs 08/02/2018 Blood Pressure 1: 142/86 Code: 8480-6 BMI: 35.2 Code: 56946-3 Heart Rate 1: 101 bpm Height: 5'7" SpO2: 97% Weight: 225 lbs 05/31/2018 Blood Pressure 1: 134/82 Code: 8480-6 BMI: 35.4 Code: 44764-3 Heart Rate 1: 91 bpm Height: 5'7" SpO2: 96% Weight: 226 lbs 05/20/2018 Blood Pressure 1: 160/100 Code: 8480-6 BMI: 35.2 Code: 33863-8 Heart Rate 1: 89 bpm Height: 5'7" SpO2: 98% Weight: 225 lbs 05/10/2018 Blood Pressure 1: 124/70 Code: 8480-6 BMI: 35.1 Code: 45799-3 Heart Rate 1: 93 bpm Height: 5'7" SpO2: 99% Weight: 224 lbs 01/15/2018 Blood Pressure 1: 142/92 Code: 8480-6 BMI: 36.3 Code: 25091-8 Heart Rate 1: 77 bpm Height: 5'7" SpO2: 98% Weight: 232 lbs 12/15/2017 Blood Pressure 1: 156/98 Code: 8480-6 BMI: 36.2 Code: 22710-8 Heart Rate 1: 87 bpm Height: 5'7" [...] eye 01/15/2018 None vision change [place] 01/15/2018 None vision change Quality lo ss [...] vision 12/15/2017 None vision change [facility] [place] 12/15/2017 None vision change Onset and Resolution sudden in onset 12/15/2017 None vision change Onset of Symptom 3.5 weeks ago 12/15/2017 None vision change Limitation on Activities severely limits vision 12/15/2017 None vision change Triggers n o known associated factors 12/15/2017 None Advance Directives No Advance Directive data Encounters Encounter Performer Loca tion Codes Date ([id number]) 30646 EST. P ATIENT, LEVEL IV Diagnosis: Cervicalgia[ICD10: M54.2] Diagnosis: Pain in thoracic spine[ICD10: M54.6] Diagnosis: Spinal stenosis, thoracic region[ICD10: M48.04] Diagnosis: Spinal stenosis, cervical region[ICD10: M48.02] Diagnosis: Changes in skin texture[ICD10: R23.4] Radha Gonzalez MD, [facility] CPT-4: 40105 06/07/2019 [id number] EST. PATIENT, LEVEL IV Diagnosis: Cervicalgia[ICD10: M54.2] Diagnosis: Other fatigue[ICD10: R53.83] Diagnosis: Essential (primary) hypertension[ICD10: I10] Diagnosis: Major depressive disorder, recurrent, moderate[ICD10: F33.1] Sonia Gonzalez MD, [facility] CPT-4: 96623 05/05/2019 ([id number]) 46582 EST. P ATIENT, LEVEL III Diagnosis: Essential (primary) hypertension[ICD10: I10] Diagnosis: Major depressive disorder, recurrent, moderate[ICD10: F33.1] Diagnosis: Dysphagia, pharyngeal phase[ICD10: R13.13] Radha Gonzalez MD, [facility] CPT-4: 10669 04/20/2019 ([id number]) 08967 EST. 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 PATIENT, LEVEL III Diagnosis: Pain in right arm[ICD10: M79.601] Sonia Gonzalez MD, [facility] CPT-4: 50079 12/20/2018 ([id number]) 28102 EST. 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 PATIENT, LEVEL III Diagnosis: Acute upper respiratory infection, unspecified[ICD10: J06.9] Diagnosis: Other allergic rhinitis[ICD10: J30.89] Sonia Gonzalez MD, [facility] CPT-4: 72779 09/24/2018 ([id number]) 44497 EST. 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 P ATIENT, LEVEL IV Diagnosis: Essential (primary) hypertension[ICD10: I10] Diagnosis: Cervicalgia[ICD10: M54.2] Radha Gonzalez MD, [facility] CPT-4: 08309 05/31/2018 ([id number]) 80518 EST. 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 06/07/2019 Patient Education: Patient Medication Summary Completed [...] over-medication. 05/05/2019 Appointment: Sonia Potter [facility]Ptel[facility] (30 min) Complex 05/05/2019 App[facility]ment: [facility] [phone] [facility] (15 min) Moderate 05/05/2019 Patient Education: Patient [...] 40mg daily. 04/20/2019 Appointment: Radha Gonzalez WPtel: [phone] [facility] (15 min) Moderate 04/20/2019 Patient Education: [...] Gonzalez WPtel: [facility] (15 min) Moderate 12/29/2018 Patient Education: Patient Medication Summary Completed 12/29/2018 Patient Education: .Cervicalgia Neck Pain Completed 12/29/2018 Patient Education: Patient Medication Summary Completed 12/21/2018 Care Plan: %Hba1C add to blood from 12/17 LOINC : 93774-1 Pending 12/21/2018 Visit Plan: Right arm pain - dayna deformity noted - will refer to ortho - The pt is to use prn antiinflammatories to manage acute pain. The patient is to call the office if the pain is worsening or does not improve. 12/20/2018 App[facility]ment: [facility] [phone] [facility] (15 min) Moderate 12/20/2018 Patient Education: Patient [...] with testosterone. 12/16/2018 Appointment: Radha Gonzalez WPtel: [address] [place], [place] [id number] (15 min) Moderate 12/16/2018 Patient Education: Patient [...] as needed. 11/01/2018 Appointment: Radha Gonzalez WPtel: [facility]5 [facility] (15 min) Moderate 11/01/2018 Patient Education: [...] Appointment: Sonia Potter WPtel: [facility]1 [facility] [place] (15 min) Moderate 09/24/2018 Patient Education: Patient [...] home. Multiple symptoms - referral to [facility] - appt in September 30, 2018. 08/16/2018 Appointment: [facility] [phone] [facility] (15 min) Moderate 08/16/2018 Patient Education: Patient [...] home. Multiple symptoms - referral to [facility] - rashes, hypogonadism, optic neuritis - all points to possible autoimmune syndrome. Spinal stenosis - of thoracic region - pt to talk to Dr. Dunaway about referral to a different specialist for his mid- back. Hypogonadism - continue with testosterone. Flu shot given today in clinic. 08/02/2018 Appointment: [facility] Gonzalez [facility] [address] [facility] [place] (15 min) Moderate 08/02/2018 Patient Education: Patient Medication Summary Completed 08/02/2018 Care Plan: Referral Order SNOMED-CT : 879167946 Pending 08/02/2018 Appointment: Injection 07/15/2018 Patient Education: [...] home. Cervical spine stenosis - referral to [facility] physical therapy. I have also recommended a Referral to Dr. Dunaway. I have called and talked to Dr. Dunaway - he looked at the pt's imaging and agrees that getting the pt in to be seen soon would be a preferred option. 05/31/2018 Appointment: Radha Gonzalez WPtel: [facility] (15 min) Moderate 05/31/2018 Patient Education: Patient Medication Summary Completed 05/31/2018 Care Plan: Referral Order SNOMED-CT : 848822448 Pending 05/31/2018 Care Plan: Referral Order SNOMED-CT : 698264282 Pending 05/31/2018 Appointment: Injection 05/21/2018 Patient Education: Patient Medication Summary Completed 05/21/2018 Care Plan: Referral Order SNOMED-CT : 766240016 Pending 05/21/2018 Visit Plan: Cervical and thoracic s tenosis with spinal cord compression -refer for appt with Dr Marr -rx for hydrocodone for pain-start gabapentin at bedtime Soft tissue lesion-left chest-schedule CTfor further evaluation HTN-elevated today-hold adderall-monitor blood pressure 05/20/2018 Appointment: Hannah Simons WPtel: [facility] [place] (15 min) Moderate 05/20/2018 Patient Education: [...] Appointment: Sonia Potter WPtel: [facility]9 [facility] (15 min) Moderate 05/10/2018 Patient Education: Patient Medication Summary Completed 05/10/2018 Visit Plan: Sleep apnea - rx for cp ap - actually autopap was recommended and pt given rx today. HTN - referral to dr. kapoor - pt needs stress testing. 01/15/2018 Appointment: Radha Gonzalez WPtel: [facility]6 [facility] (15 min) Moderate 01/15/2018 Patient Education: Patient Medication Summary Completed 01/15/2018 Care Plan: Referral Order SNOMED-CT : 031682277 Pending 01/15/2018 Visit Plan: Well Adult - [...] Gonzalez WPtel: [facility]6 [facility] New Patient 12/15/2017 Patient Education: Patient Medication Summary Completed 12/15/2017 Care Plan: CHEST X-RAY 2VW FRONTAL&LATL LOINC : 12765-5 Pending 12/15/2017 Appointment: Radha Gonzalez WPtel: [phone] [facility] (15 min) Moderate 12/08/2017 Appointment: (S) New Patient 08/13/2015 Visit Plan: steri strip placed on t humb of right hand - antibiotic shot given to patient and rx for keflex 500mg qid x 10 days given to the patient to fill prior to his trip to [place] 08/03/2015 Patient Education: Patient Medication Summary Completed 08/03/2015 Referral: External, Ordering Provider 08/03 Referral info faxed to [place]. Patient informed to be expecting a call from them with appt info Appointment Requested Referral: External, Ordering Provider Referral Appointment Requested Referral: External, Ordering Provider I called today; they will call him to schedule. Completed Referral: Armani Dunaway Referral Appointment Requested Referral: Mayte Kapoor Referral Appointment Requested Referral: [facility] [address] [facility] Referral Appointment Requested Referral: External, Ordering [...] home. Multiple symptoms - referral to [facility] - rashes, hypogonadism, optic neuritis - all [...] home. Multiple symptoms - referral to [facility] - appt in September 30, 2018. . [...] to fill prior to his trip to [place] Prazosin - for night mcrae . Chronic [...] home. Cervical spine stenosis - [facility]. I have also recommended a Referral to Dr. Dunaway. I have called and talked to Dr. Dunaway - he looked at the pt's imaging and agrees that getting the pt in to be seen soon would be a preferred option.
--- OUTSIDE RECORDS SUMMARY | 2020-04-28 00:25 | XMS REPORT | CCD ---
Author Author Nilton Gonzalez Organization [facility] Address [address] [place] [address] Phone Care Team Providers Care Md Senior Research Scientist Name Role Phone PP Unavailable CCM Unavailable Summary Purpose Interface Exchange Family history Brother Diagnosis Age At Onset Alcoholism Unknown Father Diagnosis Age At Onset Hypercholesterolemia Unknown Social History Social History Element Codes Description Effective Dates Employment Unknown Curre ntly unemployed 04/20/2019 Marital status Unknown S chanda 12/15/2017 Number of children Unknown 1 12/15/[address]: 525591113 Never smoker 12/15/[address]: 591684 Currently drinks alcohol <1 per week 12/15/2017 [...] ICD-9: 723.1 ICD-10: M54.2 Active 05/10/2018 Unknown Essential (primary) hypertension ICD-9: 401.1 ICD-10: [...] ICD-9: 780.79 ICD-10: R53.81 Active 05/10/2018 Unknown Spinal stenosis, tho racic region ICD-9: 724.01 ICD-10: M48.04 Active 05/20/2018 Unknown Acute upper respirat ory infection, unspecified ICD-9: 465.9 ICD-10: J06.9 Active 09/24/2018 Unknown Other allergic rhinitis ICD-9: 477.8 ICD-10: J30.89 Active 09/24/2018 Unknown Rash and other nonsp ecific skin eruption ICD-9: 782.1 ICD-10: R21 Active 08/02/2018 Unknown VACCIN FOR INFLUENZA ICD-9: V04.81 ICD-10: Z23 Active 08/02/2018 Unknown Spinal stenosis, cer vical region ICD-9: 723.0 ICD-10: M48.02 Active 05/20/2018 Unknown Decreased libido ICD-9: 799.81 ICD-10: R68.82 Active 05/10/2018 Unknown Pain in thoracic spine ICD-9: 724.1 ICD-10: M54.6 Active 05/10/2018 Unknown Encounter for genera l adult medical examination with abnormal findings ICD-9: V70.0 ICD-10: Z00.01 Active 12/15/2017 Unknown Laceration of thumb ICD- 9: 883.0 Active 08/02/2015 Unknown Problems Condition Codes Effectiv e Dates Condition Status Cervicalgia ICD-9: 723.1 ICD-10: M54.2 05/10/2018 Active Essential (primary) hypertension ICD-9: 401.1 ICD-10: [...] malaise ICD-9: 780.79 ICD-10: R53.81 05/10/2018 Active Spinal stenosis, tho racic region ICD-9: 724.01 ICD-10: M48.04 05/20/2018 Active Acute upper respirat ory infection, unspecified ICD-9: 465.9 ICD-10: J06.9 09/24/2018 Active Other allergic rhinitis ICD-9: 477.8 ICD-10: J30.89 09/24/2018 Active Rash and other nonsp ecific skin eruption ICD-9: 782.1 ICD-10: R21 08/02/2018 Active VACCIN FOR INFLUENZA ICD-9: V04.81 ICD-10: Z23 08/02/2018 Active Spinal stenosis, cer vical region ICD-9: 723.0 ICD-10: M48.02 05/20/2018 Active Decreased libido ICD-9: 799.81 ICD-10: R68.82 05/10/2018 Active Pain in thoracic spine ICD-9: 724.1 ICD-10: M54.6 05/10/2018 Active Encounter for genera l adult medical examination with abnormal findings ICD-9: V70.0 ICD-10: Z00.01 12/15/2017 Active Laceration of thumb ICD- 9: 883.0 08/02/2015 Active Medications Medication Codes Instruc tions Start Date Stop Date Sta tus Fill Instructions prazosin 1 mg capsule RxNorm: 297206 TAKE ONE CAPSULE BY MOUTH EVERY NIGHT AT BEDTIME 06/02/2019 09/29/2019 Active trazodone 100 mg tablet RxNorm: 814647 TAKE ONE TABLET BY MOUTH EVERY NIGHT AT BEDTIME 05/25/2019 11/20/2019 Active hydrocodone 10 mg-ac etaminophen 325 mg tablet RxNorm: 794870 1 Tablet(s) PO Q6 as needed 05/17/2019 No Stop Date Active paroxetine 40 mg tablet RxNorm: 9016589 TAKE ONE TABLET BY MOUTH DAILY 05/16/2019 11/11/2019 Ac tive hydrocodone 5 mg-fanny taminophen 325 mg tablet RxNorm: 270949 1-2 Tablet(s) PO Q6 a s needed 05/16/2019 05/16/2019 Inactive prazosin 1 mg capsule RxNorm: 531549 1 Capsule(s) PO daily 05/05/2019 06/01/2019 Inactive paroxetine 40 mg tablet RxNorm: 6936205 1 Tablet(s) PO daily 04/20/2019 05/15/2019 Inactive Adderall 30 mg tablet RxNorm: 039930 2 Tablet(s) PO daily 04/19/2019 05/18/2019 Inactive alprazolam 1 mg tablet RxNorm: 802835 1 Tablet(s) PO TID as needed 04/13/2019 06/11/2019 Active hydrocodone 5 mg-fanny taminophen 325 mg tablet RxNorm: 201978 1-2 Tablet(s) PO Q6 a s needed 03/21/2019 05/15/2019 Inactive Adderall 30 mg tablet RxNorm: 853268 2 Tablet(s) PO daily 03/21/2019 04/14/2019 Inactive tramadol 50 mg tablet RxNorm: 116764 1-2 Tablet(s) PO Q6 as needed 03/14/2019 No Stop Date Active hydrocodone 5 mg-fanny taminophen 325 mg tablet RxNorm: 530515 1-2 Tablet(s) PO Q6 a s needed 02/23/2019 03/20/2019 Inactive Adderall 30 mg tablet RxNorm: 057312 2 Tablet(s) PO daily 02/23/2019 03/20/2019 Inactive Adderall 30 mg tablet RxNorm: 379444 2 Tablet(s) PO daily 01/24/2019 02/22/2019 Inactive ketoconazole 2 % top ical cream RxNorm: 438490 APPLY ONE GRAM TOPICA LLY TWICE A DAY 01/12/2019 01/26/2019 In active tramadol 50 mg tablet RxNorm: 299833 1-2 Tablet(s) PO Q6 as needed 01/11/2019 03/13/2019 In active atenolol 50 mg tablet RxNorm: 815085 1.5 Tablet(s) PO BID 12/29/2018 12/23/2019 Active hydrocodone 5 mg-fanny taminophen 325 mg tablet RxNorm: 937461 1-2 Tablet(s) PO Q6 a s needed 12/29/2018 02/22/2019 Inactive Adderall 30 mg tablet RxNorm: 216874 2 Tablet(s) PO daily 12/29/2018 01/23/2019 Inactive hydrocodone 5 mg-fanny taminophen 325 mg tablet RxNorm: 448626 1-2 Tablet(s) PO Q6 a s needed 12/29/2018 12/28/2018 Inactive testosterone cypiona te 200 mg/mL intramuscular oil RxNorm: 0379555 1.25 Milliliter(s) IM 12/29/2018 12/29/2018 Inactive hydrocodone 5 mg-fanny taminophen 325 mg tablet RxNorm: 021071 1 Tablet(s) PO TID VA N 12/28/2018 12/28/2018 In active testosterone cypiona te 200 mg/mL intramuscular oil RxNorm: 7221300 1.25 Milliliter(s) IM 2 x month 12/22/2018 04/12/2019 Inactive gabapentin 300 mg ca psule RxNorm: 411428 1 Capsule(s) PO QID 12/16/2018 12/10/2019 Active testosterone cypiona te 200 mg/mL intramuscular oil RxNorm: 7851119 Milliliter(s) IM 12/16/2018 12/16/2018 In active Voltaren 1 % topical gel RxNorm: 147608 2 Gram(s) APPLY TOPIC ALLY four TIMES A DAY 12/16/2018 01/20/2019 In active trazodone 100 mg tablet RxNorm: 821535 TAKE ONE TABLET BY MOUTH EVERY NIGHT AT BEDTIME 12/07/2018 05/24/2019 Inactive hydrocodone 5 mg-fanny taminophen 325 mg tablet RxNorm: 481052 1 Tablet(s) PO TID VA N 11/29/2018 12/27/2018 In active Adderall 30 mg tablet RxNorm: 933509 2 Tablet(s) PO daily 11/29/2018 12/28/2018 Inactive clindamycin 1 %-arthur oyl peroxide 5 % topical gel RxNorm: 888030 TOP APPLY TO AFFECTED AREA(S) ON SERNA TWO TIMES A DAY 11/17/2018 No Stop Date Active testosterone cypiona te 200 mg/mL intramuscular oil RxNorm: 7009322 1 Milliliter(s) IM 2 x month 11/17/2018 12/21/2018 Inactive Zorvolex 35 mg capsule RxNorm: 0140778 1 Capsule(s) PO TID as needed for pain 11/15/2018 05/13/2019 In active ketoconazole 2 % top ical cream RxNorm: 684120 APPLY ONE GRAM TOPICA LLY TWICE A DAY 11/15/2018 11/29/2018 In active testosterone cypiona te 200 mg/mL intramuscular oil RxNorm: 1594895 1 Milliliter(s) IM 11/15/2018 11/14/2018 Inactive hydrocodone 5 mg-fanny taminophen 325 mg tablet RxNorm: 598433 1 Tablet(s) PO TID VA N 11/02/2018 11/28/2018 In active Singulair 10 mg tablet RxNorm: 902410 1 Tablet(s) PO daily 11/01/2018 07/28/2019 Active testosterone cypiona te 200 mg/mL intramuscular oil RxNorm: 4973138 1 Milliliter(s) IM 2 x month 11/01/2018 11/16/2018 Inactive Adderall 30 mg tablet RxNorm: 590289 2 Tablet(s) PO daily 10/29/2018 11/27/2018 Inactive gabapentin 300 mg ca psule RxNorm: 974132 1 Capsule(s) PO BID m ay take TID 10/19/2018 12/15/2018 In active gabapentin 300 mg ca psule RxNorm: 097666 1 Capsule(s) PO BID m ay take TID 10/19/2018 10/18/2018 In active alprazolam 1 mg tablet RxNorm: 779124 1 Tablet(s) PO TID as needed 10/15/2018 04/19/2019 Inactive testosterone cypiona te 200 mg/mL intramuscular oil RxNorm: 881159 Milliliter(s) IM 09/28/2018 09/28/2018 In active pravastatin 40 mg ta blet RxNorm: 537423 TAKE ONE TABLET BY MO UT EVERY NIGHT AT BEDTIME 09/27/2018 09/21/2019 Active Tamiflu 75 mg capsule RxNorm: 655831 1 Capsule(s) PO BID 09/24/2018 09/28/2018 Inactive Adderall 30 mg tablet RxNorm: 607105 2 Tablet(s) PO daily 09/20/2018 10/19/2018 Inactive hydrocodone 5 mg-fanny taminophen 325 mg tablet RxNorm: 878540 1 Tablet(s) PO TID VA N 09/20/2018 11/01/2018 In active testosterone cypiona te 200 mg/mL intramuscular oil RxNorm: 545292 Milliliter(s) IM 09/16/2018 09/16/2018 In active testosterone cypiona te 200 mg/mL intramuscular oil RxNorm: 278793 1 Milliliter(s) IM 09/02/2018 09/02/2018 Inactive testosterone cypiona te 200 mg/mL intramuscular oil RxNorm: 481474 Milliliter(s) IM 08/19/2018 08/19/2018 In active Adderall 30 mg tablet RxNorm: 150144 2 Tablet(s) PO daily 08/18/2018 09/16/2018 Inactive tramadol 50 mg tablet RxNorm: 769833 1-2 Tablet(s) PO Q6 as needed 08/18/2018 01/12/2019 In active Dexilant 60 mg capsu le, delayed release RxNorm: 270581 1 Capsule(s) PO BID 08/17/2018 08/11/2019 Ac tive ketoconazole 2 % top ical cream RxNorm: 563814 1 Gram(s) TOP BID 08/17/2018 08/26/2018 Inactive Zorvolex 35 mg capsule RxNorm: 8747154 1 Capsule(s) PO TID as needed for pain 08/17/2018 08/16/2018 In active atenolol 50 mg tablet RxNorm: 175073 1 Tablet(s) PO BID 08/17/2018 12/28/2018 Inactive Zorvolex 35 mg capsule RxNorm: 8008380 1 Capsule(s) PO TID as needed for pain 08/17/2018 11/14/2018 In active ketoconazole 2 % top ical cream RxNorm: 445326 1 Gram(s) TOP BID 08/02/2018 08/11/2018 Inactive hydrocortisone 2.5 % topical cream RxNorm: 995720 1 Application TOP BID 07/21/2018 No Stop Date Active Adderall 30 mg tablet RxNorm: 469409 2 Tablet(s) PO daily 07/20/2018 08/17/2018 Inactive testosterone cypiona te 200 mg/mL intramuscular oil RxNorm: 811014 Milliliter(s) IM 07/15/2018 07/15/2018 In active alprazolam 1 mg tablet RxNorm: 488366 1 Tablet(s) PO TID as needed 07/12/2018 09/07/2018 Inactive hydrocodone 5 mg-fanny taminophen 325 mg tablet RxNorm: 050338 1 Tablet(s) PO TID VA N 06/30/2018 09/19/2018 In active pravastatin 40 mg ta blet RxNorm: 766477 1 Tablet(s) PO QHS 06/18/2018 09/15/2018 Inactive Adderall 30 mg tablet RxNorm: 965096 2 Tablet(s) PO daily 06/18/2018 07/17/2018 Inactive testosterone cypiona te 200 mg/mL intramuscular oil RxNorm: 267023 Milliliter(s) IM 06/17/2018 06/17/2018 In active Voltaren 1 % topical gel RxNorm: 413119 APPLY TOPICALLY TWO T IMES A DAY 06/16/2018 07/21/2018 In active Vitamin D2 50,000 un it capsule RxNorm: 5391818 1 Capsule(s) PO QW 05/21/2018 No Stop Date Active Adderall 30 mg tablet RxNorm: 492641 2 Tablet(s) PO daily 05/21/2018 06/17/2018 Inactive testosterone cypiona te 200 mg/mL intramuscular oil RxNorm: 175946 Milliliter(s) IM 05/21/2018 05/21/2018 In active testosterone cypiona te 200 mg/mL intramuscular oil RxNorm: 3640848 1 Milliliter(s) IM monthly 05/20/2018 09/16/2018 Inactive testosterone cypiona te 200 mg/mL intramuscular oil RxNorm: 888179 1 Milliliter(s) IM monthly 05/20/2018 05/19/2018 Inactive hydrocodone 5 mg-fanny taminophen 325 mg tablet RxNorm: 021806 1 Tablet(s) PO TID VA N 05/20/2018 06/29/2018 In active Vitamin D2 50,000 un it capsule RxNorm: 1004568 1 Capsule(s) PO QW 05/18/2018 05/20/2018 Inactive triamcinolone aceton destin 0.025 % topical cream RxNorm: 1867961 1 Application TOP BI D 05/13/2018 No Stop Date Active Dexilant 60 mg capsu le, delayed release RxNorm: 373815 1 Capsule(s) PO BID 05/13/2018 08/16/2018 In active Zorvolex 35 mg capsule RxNorm: 3816046 1 Capsule(s) PO TID as needed for pain 05/12/2018 08/09/2018 In active Voltaren 1 % topical gel RxNorm: 177015 1 Application TOP BID 05/12/2018 06/15/2018 Inactive acyclovir 400 mg tablet RxNorm: 918058 1 Tablet(s) PO TID as needed take at ons et of symptoms of cold sores x 5 days 05/10/2018 No Stop Date Active ProAir HFA 90 mcg/ac tuation aerosol inhaler RxNorm: 629700 1 Puff(s) INH QID as needed 05/10/2018 No Stop Date Active baclofen 20 mg tablet RxNorm: 453589 1 Tablet(s) PO TID as needed muscle spas ms 05/10/2018 06/08/2018 In active Singulair 10 mg tablet RxNorm: 721002 1 Tablet(s) PO daily 05/10/2018 08/07/2018 Inactive atenolol 50 mg tablet RxNorm: 354525 1 Tablet(s) PO BID 05/10/2018 08/07/2018 Inactive triamcinolone aceton destin 0.025 % topical cream RxNorm: 5627285 1 Application TOP BI D 05/10/2018 05/12/2018 In active paroxetine 20 mg tablet RxNorm: 5322223 2 Tablet(s) PO QHS 05/10/2018 04/19/2019 Inactive tramadol 50 mg tablet RxNorm: 543003 1 Tablet(s) PO TID as needed 05/10/2018 05/19/2018 Inactive Dexilant 60 mg capsu le, delayed release RxNorm: 821937 1 Capsule(s) PO daily 05/10/2018 05/12/2018 In active alprazolam 1 mg tablet RxNorm: 968598 1 Tablet(s) PO TID as needed 05/10/2018 08/06/2018 Inactive trazodone 100 mg tablet RxNorm: 654333 1 Tablet(s) PO QHS 05/10/2018 11/05/2018 Inactive cyclobenzaprine 10 m g tablet RxNorm: 554552 1 Tablet(s) PO TID as needed muscle spasms 05/07/2018 07/12/2018 Inactive trazodone 100 mg tablet RxNorm: 004910 1 Tablet(s) PO QHS 05/07/2018 05/09/2018 Inactive Adderall 30 mg tablet RxNorm: 498315 2 Tablet(s) PO daily 04/19/2018 05/18/2018 Inactive alprazolam 1 mg tablet RxNorm: 075069 1 Tablet(s) PO BID 04/19/2018 05/09/2018 Inactive Adderall 30 mg tablet RxNorm: 477783 2 Tablet(s) PO daily 03/26/2018 04/18/2018 Inactive paroxetine 20 mg tablet RxNorm: 8178235 2 Tablet(s) PO QHS 03/15/2018 05/09/2018 Inactive Adderall 30 mg tablet RxNorm: 704184 2 Tablet(s) PO daily 02/25/2018 03/25/2018 Inactive cyclobenzaprine 10 m g tablet RxNorm: 266546 1 Tablet(s) PO TID as needed muscle spasms 02/22/2018 05/06/2018 Inactive tramadol 50 mg tablet RxNorm: 789202 1 Tablet(s) PO TID as needed 02/22/2018 03/07/2018 Inactive tramadol 50 mg tablet RxNorm: 300318 1 Tablet(s) PO TID as needed 02/22/2018 02/21/2018 Inactive trazodone 100 mg tablet RxNorm: 720150 1 Tablet(s) PO QHS 02/03/2018 05/03/2018 Inactive trazodone 100 mg tablet RxNorm: 520518 1 Tablet(s) PO QHS 02/03/2018 02/02/2018 Inactive Adderall 30 mg tablet RxNorm: 051995 2 Tablet(s) PO daily 01/27/2018 02/18/2018 Inactive acyclovir 400 mg tablet RxNorm: 900386 1 Tablet(s) PO TID as needed take at ons et of symptoms of cold sores x 5 days 01/15/2018 05/09/2018 Inactive Bactrim DS 800 mg-16 0 mg tablet RxNorm: 303670 1 Tablet(s) PO BID 01/11/2018 01/17/2018 Inactive Bactrim DS 800 mg-16 0 mg tablet RxNorm: 315851 1 Tablet(s) PO BID 01/11/2018 01/10/2018 Inactive Dexilant 60 mg capsu le, delayed release RxNorm: 092502 1 Capsule(s) PO daily 12/23/2017 05/09/2018 In active Dexilant 60 mg capsu le, delayed release RxNorm: 804122 1 Capsule(s) PO daily 12/23/2017 12/22/2017 In active atenolol 50 mg tablet RxNorm: 359368 1 Tablet(s) PO BID 12/15/2017 05/09/2018 Inactive alprazolam 1 mg tablet RxNorm: 320305 1-1.5 Tablet(s) PO daily 12/15/2017 04/18/2018 Inactive ceftriaxone 500 mg s olution for injection RxNorm: 9540701 Inj 08/03/2015 08/03/2015 Inactive paroxetine 20 mg tablet RxNorm: 4310028 2 Tablet(s) PO QHS 08/01/2015 10/29/2015 Inactive pravastatin 40 mg ta blet RxNorm: 857618 1/2 Tablet(s) PO QHS 08/01/2015 12/14/2017 Inactive Trazadone 100mg 100 mg RxNorm: 1 PO daily 08/01/2015 11/27/2015 Inactive Trazadone 100mg 100 mg RxNorm: 1 PO daily 08/01/2015 05/04/2018 Inactive atenolol 50 mg tablet RxNorm: 119890 1 Tablet(s) PO daily 08/01/2015 10/29/2015 Inactive ibuprofen 800 mg tablet RxNorm: 092417 1 Tablet(s) PO BID -TID No Start Date Active Fish Oil 360 mg-1,20 0 mg capsule RxNorm: 729026 1 Capsule(s) PO BID No Start Date Active Zyrtec 10 mg tablet RxNorm: 9225511 1 Tablet(s) PO daily No Start Date Active pravastatin 40 mg ta blet RxNorm: 190666 1/2 Tablet(s) PO QHS No Start Date 07/31/2015 Inactive Benadryl Allergy 25 mg tablet RxNorm: 4540141 1 Tablet(s) PO daily No Start Date 07/19/2018 Inactive Adderall 30 mg tablet RxNorm: 039315 2 Tablet(s) PO daily No Start Date 01/26/2018 Inactive Aspirin Low Dose 81 mg tablet,delayed release RxNorm: 100506 1 Tablet(s) PO BID No Start Date 07/19/2018 Inactive Singulair 10 mg tablet RxNorm: 401321 1 Tablet(s) PO daily No Start Date 05/09/2018 Inactive cyclobenzaprine 10 m g tablet RxNorm: 884982 1 Tablet(s) PO TID as needed muscle spasms No Start Date 02/21/2018 Inactive Trazadone 100mg 100 mg RxNorm: 1 PO daily No Start Date 07/31/2015 Inactive clindamycin 1 %-arthur oyl peroxide 5 % topical gel RxNorm: 529472 TOP APPLY TO AFFECTED AREA(S) ON SERNA TWO TIMES A DAY No Start Date 11/16/2018 Inactive hydrocortisone 2.5 % topical cream RxNorm: 567500 1 Application TOP BID No Start Date 07/20/2018 Inactive alprazolam 1 mg tablet RxNorm: 442097 2 Tablet(s) PO daily No Start Date 12/14/2017 Inactive tramadol 50 mg tablet RxNorm: 323198 1-2 Tablet(s) PO Q6 as needed No Start Date 08/17/2018 Inactive Vitamin D2 50,000 un it capsule RxNorm: 2674957 1 Capsule(s) PO QW No Start Date 05/17/2018 Inactive pantoprazole 40 mg t ablet,delayed release RxNorm: 066259 1 Tablet(s) PO BID No Start Date 12/22/2017 Inactive atenolol 50 mg tablet RxNorm: 836959 1 Tablet(s) PO daily No Start Date 07/31/2015 Inactive hydrocodone 10 mg-ac etaminophen 325 mg tablet RxNorm: 304351 1 Tablet(s) PO Q6 as needed No Start Date 05/16/2019 Inactive paroxetine 20 mg tablet RxNorm: 875465 2 Tablet(s) PO QHS No Start Date 07/31/2015 Inactive Medication Administered Medication Codes Instruc tions Start Date Status testosterone cypionate 200 mg/mL intramuscular oil RxNorm: 2935401 1.25Milliliter 12/29/2018 No longer Active testosterone cypionate 200 mg/mL intramuscular oil RxNorm: 1395687 Milliliter 12/16/2018 No longer Active testosterone cypionate 200 mg/mL intramuscular oil RxNorm: 4300420 1Milliliter 11/15/2018 No longer Active testosterone cypionate 200 mg/mL intramuscular oil RxNorm: 462218 Milliliter 09/28/2018 No longer Active testosterone cypionate 200 mg/mL intramuscular oil RxNorm: 023659 Milliliter 09/16/2018 No longer Active testosterone cypionate 200 mg/mL intramuscular oil RxNorm: 538028 1Milliliter 09/02/2018 No longer Active testosterone cypionate 200 mg/mL intramuscular oil RxNorm: 266494 Milliliter 08/19/2018 No longer Active testosterone cypionate 200 mg/mL intramuscular oil RxNorm: 038295 Milliliter 07/15/2018 No longer Active testosterone cypionate 200 mg/mL intramuscular oil RxNorm: 270520 Milliliter 06/17/2018 No longer Active testosterone cypionate 200 mg/mL intramuscular oil RxNorm: 172395 Milliliter 05/21/2018 No longer Active ceftriaxone 500 mg solution for injection RxNorm: 4842272 08/03/2015 No longer A ctive Immunizations Vaccine Codes Date Status Influenza CVX: 141 08/02 completed Tetanus, Diptheria, Pertussis CVX: 113 05/16/2011 completed Tetanus/Diptheria CVX: 113 05/16/2011 completed Assessments Condition Codes Effectiv e Dates Other fatigue ICD-10: R53.83 ICD-9: 780.79 05/05/2019 Major depressive disorder, recurrent, moderate ICD-10: F33.1 ICD-9: 296.32 05/05/2019 Essential (primary) hypertension ICD -10: I10 ICD-9: 401.1 05/05/2019 Cervicalgia ICD-10: M54.2 ICD-9: 723.1 05/05/2019 Dysphagia, pharyngeal phase ICD-10: R13.13 ICD-9: 787.23 04/20/2019 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 89 ICD-9: 477.8 09/24/2018 Acute upper respiratory infection, unspecified ICD-10: J06.9 ICD-9: 465.9 09/24/2018 VACCIN FOR INFLUENZA ICD-10: Z23 ICD-9: V04.81 08/02/2018 Rash and other nonspecific skin eruption ICD-10: R21 ICD-9: 782.1 08/02/2018 Spinal stenosis, cervical region ICD -10: M48.02 ICD-9: 723.0 05/20/2018 Pain in thoracic spine ICD-10: M54.6 ICD-9: 724.1 05/10/2018 Decreased libido ICD-10: R68.82 ICD-9: 799.81 05/10/2018 Encounter for general adult medical exam ination with abnormal findings ICD-10: Z00.01 ICD-9: V70.0 12/15/2017 Laceration of thumb ICD-9: 883.0 08/03/2015 Reason For Visit Reason For Visit Effective Dates Notes back pain 05/05/2019 back pain 04/20/2019 back pain 12/29/2018 arm pain 12/20/2018 hypertension 12/16/2018 hypertension 11/01/2018 sinus congestion 09/24/2018 back pain 08/16/2018 back pain 08/02/2018 back pain 05/31/2018 back pain 05/20/2018 medication follow up 05/10/2018 vision change 01/15/2018 vision change 12/15/2017 Results Observation Observation Code Item Item Code Result Date Comp. Metabolic Panel (14) 87374 GLUCOSE 117 mg/dL 12/17/2018 Comp. Metabolic Panel (14) 55802 BUN 17 mg/dL 12/17/2018 Comp. Metabolic Panel (14) 72091 CREATININE 0.99 mg/dL 12/17/2018 Comp. Metabolic Panel (14) 88456 SODIUM 137 mmol/L 12/17/2018 Comp. Metabolic Panel (14) 13116 POTASSIUM 4.6 mmol/L 12/17/2018 Comp. Metabolic Panel (14) 65467 CHLORIDE 102 mmol/L 12/17/2018 Comp. Metabolic Panel (14) 36659 CARBON DIOXIDE 21 mmol/L 12/17/2018 Comp. Metabolic Panel (14) 63005 CALCIUM 9.4 mg/dL 12/17/2018 Comp. Metabolic Panel (14) 03561 TOTAL PROTEIN 7.5 g/dL 12/17/2018 Comp. Metabolic Panel (14) 34952 ALBUMIN 5.1 g/dL 12/17/2018 Comp. Metabolic Panel (14) 81208 ALKALINE PHOSPHATASE 79 U/L 12/17/2018 Comp. Metabolic Panel (14) 67276 TOTAL BILIRUBIN 0.5 mg/dL 12/17/2018 Comp. Metabolic Panel (14) 28687 SGOT (AST) 34 U/L 12/17/2018 Comp. Metabolic Panel (14) 00559 SGPT (ALT) 40 U/L 12/17/2018 Comp. Metabolic Panel (14) 95652 eGFR (mL/min/1.73m2) 115 12/17/2018 Comp. Metabolic Panel (14) 58777 INTERPRETATION 12/17/2018 Testosterone Serum 405606 TESTOSTERONE 96.8 ng/dL 12/17/2018 Cbc With Differential/Platelet 48475 WBC 5.61 thou/uL 9 Cbc With Differential/Platelet 81617 RBC 5.53 mil/uL 12/17/2018 Cbc With Differential/Platelet 82409 HEMOGLOBIN 15.4 g/dL 12/17/2018 Cbc With Differential/Platelet 09462 HEMATOCRIT 48.1 % 12/17/2018 Cbc With Differential/Platelet 28552 MCV 87.0 fL 12/17/2018 Cbc With Differential/Platelet 12825 MCH 27.8 pg 12/17/2018 Cbc With Differential/Platelet 34592 MCHC 32.0 g/dL 12/17/2018 Cbc With Differential/Platelet 89171 RDW-CV 13.9 % 12/17/2018 Cbc With Differential/Platelet 52087 PLATELET COUNT 294 thou/uL 12/17/2018 Cbc With Differential/Platelet 43456 NEUTROPHIL % 71.2 % 12/17/2018 Cbc With Differential/Platelet 93496 LYMPHOCYTE % 22.2 % 12/17/2018 Cbc With Differential/Platelet 29591 MONOCYTE % 5.4 % 12/17/2018 Cbc With Differential/Platelet 33127 EOS % 0.9 % 12/17/2018 Cbc With Differential/Platelet 89832 BASO % 0.4 % 12/17/2018 Cbc With Differential/Platelet 21809 NEUTROPHIL ABS # 3.99 thou/uL 12/17/2018 Cbc With Differential/Platelet 49635 LYMPH ABS # 1.25 thou/uL 12/17/2018 Cbc With Differential/Platelet 31065 MONOCYTE ABS # 0.30 thou/uL 12/17/2018 Cbc With Differential/Platelet 24733 EOS ABS # 0.05 thou/uL 9 Cbc With Differential/Platelet 45823 BASO ABS # 0.02 thou/uL 12/17/2018 Lipid Panel 58064 CHOLES TEROL 227 mg/dL 12/17/2018 Lipid Panel 72018 TRIGLY CERIDES 229 mg/dL 12/17/2018 Lipid Panel 77815 HDL 41 mg/dL 12/17/2018 Lipid Panel 47369 CHOLES TEROL/HDL 5.54 12/17/2018 Lipid Panel 24960 LDL (C ALCULATED) 140 mg/dL 12/17/2018 Lipid Panel 93118 LDL/HDL 3.41 12/17/2018 Lipid Panel 77192 INTERP RETATION 12/17/2018 Tsh 021619 TSH 1.190 uIU/mL 12/17/2018 Testosterone Serum 265684 TESTOSTERONE 44.1 ng/dL 08/18/2018 Hemoglobin 588374 WBC 7.62 thou/uL 08/17/2018 Hemoglobin 077050 RBC 5.23 mil/uL 08/17/2018 Hemoglobin 796802 HEMOGL OBIN 15.0 g/dL 08/17/2018 Hemoglobin 826036 HEMATO CRIT 45.0 % 08/17/2018 Hemoglobin 394076 MCV 86.0 fL 08/17/2018 Hemoglobin 20020721 MCH 28.7 pg 08/17/2018 Hemoglobin 20020721 MCHC 33.3 g/dL 08/17/2018 Hemoglobin 517189 RDW-CV 12.9 % 08/17/2018 Hemoglobin 185085 PLATEL ET COUNT 313 thou/uL 08/17/2018 Hematocrit 124548 WBC 7.62 thou/uL 08/17/2018 Hematocrit 633350 RBC 5.23 mil/uL 08/17/2018 Hematocrit 421169 HEMOGL OBIN 15.0 g/dL 08/17/2018 Hematocrit 250033 HEMATO CRIT 45.0 % 08/17/2018 Hematocrit 944075 MCV 86.0 fL 08/17/2018 Hematocrit 209371 MCH 28.7 pg 08/17/2018 Hematocrit MCHC 33.3 g/dL 08/17/2018 Hematocrit 308075 RDW-CV 12.9 % 08/17/2018 Hematocrit 302094 PLATEL ET COUNT 313 thou/uL 08/17/2018 Culture Mrsa [id number] MRSA CULTURE SEE NOTES 06/21/2018 Comp. Metabolic Panel [phone] GLUCOSE 101 mg/dL 06/18/2018 Comp. Metabolic Panel [phone] BUN 18 mg/dL 06/18/2018 Comp. Metabolic Panel (14) 61191 CREATININE 0.99 mg/dL 06/18/2018 Comp. Metabolic Panel (14) 53578 SODIUM 141 mmol/L 06/18/2018 Comp. Metabolic Panel (14) 93157 POTASSIUM 4.3 mmol/L 06/18/2018 Comp. Metabolic Panel (14) 41492 CHLORIDE 103 mmol/L 06/18/2018 Comp. Metabolic Panel (14) 11164 CARBON DIOXIDE 23 mmol/L 06/18/2018 Comp. Metabolic Panel (14) 72701 CALCIUM 9.8 mg/dL 06/18/2018 Comp. Metabolic Panel (14) 05183 TOTAL PROTEIN 7.1 g/dL 06/18/2018 Comp. Metabolic Panel (14) 91538 ALBUMIN 5.2 g/dL 06/18/2018 Comp. Metabolic Panel (14) 47663 ALKALINE PHOSPHATASE 65 U/L 06/18/2018 Comp. Metabolic Panel (14) 96230 TOTAL BILIRUBIN 0.6 mg/dL 06/18/2018 Comp. Metabolic Panel (14) 07468 SGOT (AST) 21 U/L 06/18/2018 Comp. Metabolic Panel (14) 57369 SGPT (ALT) 24 U/L 06/18/2018 Comp. Metabolic Panel (14) 70569 eGFR (mL/min/1.73m2) 115 06/18/2018 Comp. Metabolic Panel (14) 88973 INTERPRETATION 06/18/2018 Cbc With Differential/Platelet 33606 WBC 4.55 thou/uL 8 Cbc With Differential/Platelet 75220 RBC 5.13 mil/uL 06/18/2018 Cbc With Differential/Platelet 63262 HEMOGLOBIN 14.4 g/dL 06/18/2018 Cbc With Differential/Platelet 63009 HEMATOCRIT 44.1 % 06/18/2018 Cbc With Differential/Platelet 60842 MCV 85.9 fL 06/18/2018 Cbc With Differential/Platelet 73036 MCH 28.1 pg 06/18/2018 Cbc With Differential/Platelet 89661 MCHC 32.7 g/dL 06/18/2018 Cbc With Differential/Platelet 69773 RDW-CV 13.4 % 06/18/2018 Cbc With Differential/Platelet 29047 PLATELET COUNT 287 thou/uL 06/18/2018 Cbc With Differential/Platelet 24444 NEUTROPHIL % 53.9 % 06/18/2018 Cbc With Differential/Platelet 20829 LYMPHOCYTE % 36.1 % 06/18/2018 Cbc With Differential/Platelet 53554 MONOCYTE % 7.4 % 06/18/2018 Cbc With Differential/Platelet 75473 EOS % 1.9 % 06/18/2018 Cbc With Differential/Platelet 47821 BASO % 0.8 % 06/18/2018 Cbc With Differential/Platelet 91213 NEUTROPHIL ABS # 2.45 thou/uL 06/18/2018 Cbc With Differential/Platelet 90106 LYMPH ABS # 1.64 thou/uL 06/18/2018 Cbc With Differential/Platelet 93117 MONOCYTE ABS # 0.34 thou/uL 06/18/2018 Cbc With Differential/Platelet 13617 EOS ABS # 0.09 thou/uL 8 Cbc With Differential/Platelet 29478 BASO ABS # 0.04 thou/uL 06/18/2018 Review of Systems System Result Effective Dates Constitutional recent illness 05/05/2019 Constitutional No chills [...] Procedure Codes Date THER/PROPH/DIAG INJ SC/IM CPT-4: 23522 12/29/2018 THER/PROPH/DIAG INJ SC/IM CPT-4: 69352 12/16/2018 THER/PROPH/DIAG INJ SC/IM CPT-4: 45368 11/15/2018 THER/PROPH/DIAG INJ SC/IM CPT-4: 11901 09/28/2018 THER/PROPH/DIAG INJ SC/IM CPT-4: 57514 09/16/2018 THER/PROPH/DIAG INJ SC/IM CPT-4: 93421 09/02/2018 THER/PROPH/DIAG INJ SC/IM CPT-4: 09524 08/19/2018 IMMUNIZATION ADMIN CPT- 4: 72073 08/02/2018 FLU VAC NO PRSV 4 VA L 3 YRS+ CPT-4: 42443 08/02/2018 THER/PROPH/DIAG INJ SC/IM CPT-4: 09681 07/15/2018 THER/PROPH/DIAG INJ SC/IM CPT-4: 20806 06/17/2018 THER/PROPH/DIAG INJ SC/IM CPT-4: 82706 05/21/2018 THER/PROPH/DIAG INJ SC/IM CPT-4: 67012 08/03/2015 ROCEPHIN, PER 250 MG CPT-4: J0696 08/03/2015 Vital Signs Date Vital 05/05/2019 Heigh t: Weight: 04/20/2019 Blood Pressure 1: 160/84 Code: 8480-6 BMI: 34.0 Code: 70938-7 Heart Rate 1: 82 bpm Height: 5'7" SpO2: 97% Weight: 216 lbs 13 o z 12/29/2018 Blood Pressure 1: 144/90 Code: 8480-6 BMI: 34.8 Code: 49439-7 Heart Rate 1: 91 bpm Height: 5'7" SpO2: 98% Weight: 222 lbs 12/20/2018 Blood Pressure 1: 124/76 Code: 8480-6 BMI: 35.4 Code: 87648-6 Heart Rate 1: 79 bpm Height: 5'7" SpO2: 99% Weight: 226 lbs 12/16/2018 Blood Pressure 1: 160/90 Code: 8480-6 BMI: 35.4 Code: 97585-5 Heart Rate 1: 90 bpm Height: 5'7" SpO2: 95% Weight: 226 lbs 11/01/2018 Blood Pressure 1: 146/82 Code: 8480-6 BMI: 36.0 Code: 48402-1 Heart Rate 1: 87 bpm Height: 5'7" SpO2: 98% Weight: 230 lbs 09/24/2018 Blood Pressure 1: 140/82 Code: 8480-6 BMI: 36.0 Code: 23730-8 Heart Rate 1: 86 bpm Height: 5'7" SpO2: 98% Temperature: 37.1 (C ) / 98.7 (F) Weight: 230 lbs 08/16/2018 Blood Pressure 1: 148/82 Code: 8480-6 Blood Pressure 2: 157/92 Code: 8480-6 BMI: 35.9 Code: 23878-2 Heart Rate 1: 72 bpm Height: 5'7" SpO2: 96% Weight: 229 lbs 08/02/2018 Blood Pressure 1: 142/86 Code: 8480-6 BMI: 35.2 Code: 47059-2 Heart Rate 1: 101 bpm Height: 5'7" SpO2: 97% Weight: 225 lbs 05/31/2018 Blood Pressure 1: 134/82 Code: 8480-6 BMI: 35.4 Code: 56210-6 Heart Rate 1: 91 bpm Height: 5'7" SpO2: 96% Weight: 226 lbs 05/20/2018 Blood Pressure 1: 160/100 Code: 8480-6 BMI: 35.2 Code: 75494-8 Heart Rate 1: 89 bpm Height: 5'7" SpO2: 98% Weight: 225 lbs 05/10/2018 Blood Pressure 1: 124/70 Code: 8480-6 BMI: 35.1 Code: 80722-1 Heart Rate 1: 93 bpm Height: 5'7" SpO2: 99% Weight: 224 lbs 01/15/2018 Blood Pressure 1: 142/92 Code: 8480-6 BMI: 36.3 Code: 63604-4 Heart Rate 1: 77 bpm Height: 5'7" SpO2: 98% Weight: 232 lbs 12/15/2017 Blood Pressure 1: 156/98 Code: 8480-6 BMI: 36.2 Code: 06655-6 Heart Rate 1: 87 bpm Height: 5'7" SpO2: 97% Weight: 231 lbs Functional Status No Functional Status data History of Present Illness Symptom Name Status Resu lt Effective Date Notes Location thoracic spine 05/05/2019 None Location lumbar-sacral [...] eye 01/15/2018 None vision change Quality [place] 01/15/2018 None vision change Quality lo ss [...] vision 12/15/2017 None vision change Quality [place] 12/15/2017 None vision change Onset and Resolution sudden in onset 12/15/2017 None vision change Onset of Symptom 3.5 weeks ago 12/15/2017 None vision change Limitation on Activities severely limits vision 12/15/2017 None vision change Triggers n o known associated factors 12/15/2017 None Advance Directives No Advance Directive data Encounters Encounter Performer Loca tion Codes Date 47301 EST. PATIENT, LEVEL IV Diagnosis: Cervicalgia[ICD10: M54.2] Diagnosis: Other fatigue[ICD10: R53.83] Diagnosis: Essential (primary) hypertension[ICD10: I10] Diagnosis: Major depressive disorder, recurrent, moderate[ICD10: F33.1] [facility] CPT-4: 81806 05/05/2019 ([id number]) 06877 EST. P ATIENT, LEVEL III Diagnosis: Essential (primary) hypertension[ICD10: I10] Diagnosis: Major depressive disorder, recurrent, moderate[ICD10: F33.1] Diagnosis: Dysphagia, pharyngeal phase[ICD10: R13.13] Radha Gonzalez MD, [facility] CPT-4: 25898 04/20/2019 ([id number]) 55303 EST. 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 PATIENT, LEVEL III Diagnosis: Pain in right arm[ICD10: M79.601] Sonia Gonzalez MD, [facility] CPT-4: 50823 12/20/2018 ([id number]) 47760 EST. 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 PATIENT, LEVEL III Diagnosis: Acute upper respiratory infection, unspecified[ICD10: J06.9] Diagnosis: Other allergic rhinitis[ICD10: J30.89] Sonia Gonzalez MD, [facility] CPT-4: 88359 09/24/2018 ([id number]) 64202 EST. 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 P ATIENT, LEVEL IV Diagnosis: Essential (primary) hypertension[ICD10: I10] Diagnosis: Cervicalgia[ICD10: M54.2] Radha Gonzalez MD, [facility] CPT-4: 84121 05/31/2018 ([id number]) 51519 EST. 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] Diagnosis: Obstructive sleep apnea (adult) (pediatric)[ICD10: G47.33] Radha Gonzalez MD, [facility] CPT-4: 97440 01/15/2018 ([id number]) PREV VISIT N EW AGE 40-64 Diagnosis: Encounter for general adult medical examination with abnormal findings[ICD10: Z00.01] Radha Gonzalez MD, [facility] CPT-4: 07927 12/15/2017 ([id number]) OFFICE/OUTPA TIENT VISIT NEW Diagnosis: Laceration of thumb[ICD9: 883.0] Radha Gonzalez MD, [facility] CPT-4: 33073 08/03/2015 Plan of Care Planned Activity Notes C odes Status Date Visit Plan: Chronic Depression and anxiety - [...] of over-medication. 05/05/2019 Appointment: [facility] Potter [facility]el[facility] ([facility] min) Complex 05/05/2019 Appointment: Radha Gonzalez WPtel: [facility] (15 min) Moderate 05/05/2019 Patient Education: Patient [...] 40mg daily. 04/20/2019 Appointment: Radha Gonzalez WPtel: [facility] (15 min) Moderate 04/20/2019 Patient Education: [...] testosterone injections. 12/29/2018 Appointment: Radha Gonzalez WPtel: [facility]6 [facility] (15 min) Moderate 12/29/2018 Patient Education: Patient Medication Summary Completed 12/29/2018 Patient Education: .Cervicalgia Neck Pain Completed 12/29/2018 Patient Education: Patient Medication Summary Completed 12/21/2018 Care Plan: %Hba1C add to blood from 12/17 LOINC : 19158-3 Pending 12/21/2018 Visit Plan: Right arm pain - dayna deformity noted - will refer to ortho - The pt is to use prn antiinflammatories to manage acute pain. The patient is to call the office if the pain is worsening or does not improve. 12/20/2018 Appointment: Sonia Potter WPtel: [facility]2 [facility] (15 min) Moderate 12/20/2018 Patient Education: Patient [...] testosterone. 12/16/2018 Appointment: Radha Gonzalez WPtel: [phone] [facility] (15 min) Moderate 12/16/2018 Patient Education: [...] needed. 11/01/2018 Appointment: Radha Gonzalez WPtel: [phone] [facility] (15 min) Moderate 11/01/2018 Patient Education: Patient [...] spray. 09/24/2018 Appointment: Sonia Potter WPtel: [phone] [facility] [place] (15 min) Moderate 09/24/2018 Patient Education: [...] at home. Multiple symptoms - referral to [facility] - appt in September 30, 2018. 08/16/2018 Appointment: [facility] Gonzalez [phone] (15 min) Moderate 08/16/2018 Patient Education: Patient [...] at home. Multiple symptoms - referral to [facility] - rashes, hypogonadism, optic neuritis - all points to possible autoimmune syndrome. Spinal stenosis - of thoracic region - pt to talk to Dr. Dunaway about referral to a different specialist for his mid- back. Hypogonadism - continue with testosterone. Flu shot given today in clinic. 08/02/2018 Appointment: Radha Gonzalez [facility]Ptel: [phone] [place] (15 min) Moderate 08/02/2018 Patient Education: Patient Medication Summary Completed 08/02/2018 Care Plan: Referral Order SNOMED-CT : [id number] Pending 08/02/2018 Appointment: Injection 07/15/2018 Patient Education: [...] home. Cervical spine stenosis - referral to [facility] physical therapy. I have also recommended a Referral to Dr. Dunaway. I have called and talked to Dr. Dunaway - he looked at the pt's imaging and agrees that getting the pt in to be seen soon would be a preferred option. 05/31/2018 Appointment: Radha Gonzalez WPtel: [facility] [place] (15 min) Moderate 05/31/2018 Patient Education: Patient Medication Summary Completed 05/31/2018 Care Plan: Referral Order SNOMED-CT : [id number] Pending 05/31/2018 Care Plan: Referral Order SNOMED-CT : 465266099 Pending 05/31/2018 Appointment: Injection 05/21/2018 Patient Education: Patient Medication Summary Completed 05/21/2018 Care Plan: Referral Order SNOMED-CT : 725473991 Pending 05/21/2018 Visit Plan: Cervical and thoracic s tenosis with spinal cord compression -refer for appt with Dr Marr -rx for hydrocodone for pain-start gabapentin at bedtime Soft tissue lesion-left chest-schedule CTfor further evaluation HTN-elevated today-hold adderall-monitor blood pressure 05/20/2018 Appointment: Hannah Simons WPtel: [facility]5 [phone] [place] (15 min) Moderate 05/20/2018 Patient Education: [...] order this. 05/10/2018 Appointment: Sonia Potter WPtel: [facility]3 [facility] (15 min) Moderate 05/10/2018 Patient Education: Patient Medication Summary Completed 05/10/2018 Visit Plan: Sleep apnea - rx for cp ap - actually autopap was recommended and pt given rx today. HTN - referral to dr. kapoor - pt needs stress testing. 01/15/2018 Appointment: Radha Gonzalez WPtel: [facility]9 [facility] (15 min) Moderate 01/15/2018 Patient Education: Patient Medication Summary Completed 01/15/2018 Care Plan: Referral Order SNOMED-CT : 670834475 Pending 01/15/2018 Visit Plan: Well Adult - [...] one month. 12/15/2017 Appointment: Radha Gonzalez WPtel: [facility]6 [facility] New Patient 12/15/2017 Patient Education: Patient Medication Summary Completed 12/15/2017 Care Plan: CHEST X-RAY 2VW FRONTAL&LATL LOINC : 31854-6 Pending 12/15/2017 Appointment: Radha Gonzalez [facility]Ptel: [phone] (15 min) Moderate 12/08/2017 Appointment: (S) New Patient 08/13/2015 Visit Plan: steri strip placed on t humb of right hand - antibiotic shot given to patient and rx for keflex 500mg qid x 10 days given to the patient to fill prior to his trip to [place] 08/03/2015 Patient Education: Patient Medication Summary Completed 08/03/2015 Referral: External, Ordering Provider 08/03 Referral info faxed to [facility]. Patient informed to be expecting a call from them with appt info Appointment Requested Referral: External, Ordering Provider Referral Appointment Requested Referral: External, Ordering Provider I called today; they will call him to schedule. Completed Referral: Armani Dunaway Referral Appointment Requested Referral: Mayte Kapoor Referral Appointment Requested Referral[phone] Referral Appointment Requested Referral: External, Ordering [...] at home. Multiple symptoms - referral to [facility] - rashes, hypogonadism, optic neuritis [...] at home. Multiple symptoms - referral to [facility] - appt in September 30, [...] to fill prior to his trip to [place] Prazosin - for night mcrae . Chronic [...] home. Cervical spine stenosis - referral to [facility] physical therapy. I have also recommended a Referral to Dr. Dunaway. I have called and talked to Dr. Dunaway - he looked at the pt's imaging and agrees that getting the pt in to be seen soon would be a preferred option.
--- OUTSIDE RECORDS SUMMARY | 2020-04-28 00:26 | XMS REPORT | CCD ---
Author Author Nilton Gonzalez Organization [facility] Address [address] [place] [address] Phone Care Team Providers Care Clinical Support Tech Name Role Phone PP Unavailable CCM Unavailable Summary Purpose Interface Exchange Family history Brother Diagnosis Age At Onset Alcoholism Unknown Father Diagnosis Age At Onset Hypercholesterolemia Unknown Social History Social History Element Codes Description Effective Dates Employment Unknown Curre ntly unemployed 04/20/2019 Marital status Unknown S chanda 12/15/2017 Number of children Unknown 1 12/15/[address]: 693649176 Never smoker 12/15/[address]: 643840 Currently drinks alcohol <1 per week 12/15/2017 [...] 10 mg-ac etaminophen 325 mg tablet RxNorm: 251224 1 Tablet(s) PO Q6 as needed 05/17/2019 No Stop Date Active paroxetine 40 mg tablet RxNorm: 5137866 TAKE ONE TABLET BY MOUTH DAILY 05/16/2019 11/11/2019 Ac tive hydrocodone 5 mg-fanny taminophen 325 mg tablet RxNorm: 218881 1-2 Tablet(s) PO Q6 a s needed 05/16/2019 05/16/2019 Inactive prazosin 1 mg capsule RxNorm: 437443 1 Capsule(s) PO daily 05/05/2019 06/03/2019 Active paroxetine 40 mg tablet RxNorm: 3779712 1 Tablet(s) PO daily 04/20/2019 05/15/2019 Inactive Adderall 30 mg tablet RxNorm: 235477 2 Tablet(s) PO daily 04/19/2019 05/18/2019 Active alprazolam 1 mg tablet RxNorm: 072639 1 Tablet(s) PO TID as needed 04/13/2019 06/11/2019 Active hydrocodone 5 mg-fanny taminophen 325 mg tablet RxNorm: 141682 1-2 Tablet(s) PO Q6 a s needed 03/21/2019 05/15/2019 Inactive Adderall 30 mg tablet RxNorm: 958448 2 Tablet(s) PO daily 03/21/2019 04/14/2019 Inactive tramadol 50 mg tablet RxNorm: 253114 1-2 Tablet(s) PO Q6 as needed 03/14/2019 No Stop Date Active hydrocodone 5 mg-fanny taminophen 325 mg tablet RxNorm: 476648 1-2 Tablet(s) PO Q6 a s needed 02/23/2019 03/20/2019 Inactive Adderall 30 mg tablet RxNorm: 260307 2 Tablet(s) PO daily 02/23/2019 03/20/2019 Inactive Adderall 30 mg tablet RxNorm: 461461 2 Tablet(s) PO daily 01/24/2019 02/22/2019 Inactive ketoconazole 2 % top ical cream RxNorm: 754303 APPLY ONE GRAM TOPICA LLY TWICE A DAY 01/12/2019 01/26/2019 In active tramadol 50 mg tablet RxNorm: 221359 1-2 Tablet(s) PO Q6 as needed 01/11/2019 03/13/2019 In active atenolol 50 mg tablet RxNorm: 281698 1.5 Tablet(s) PO BID 12/29/2018 12/23/2019 Active hydrocodone 5 mg-fanny taminophen 325 mg tablet RxNorm: 724037 1-2 Tablet(s) PO Q6 a s needed 12/29/2018 02/22/2019 Inactive Adderall 30 mg tablet RxNorm: 989858 2 Tablet(s) PO daily 12/29/2018 01/23/2019 Inactive hydrocodone 5 mg-fanny taminophen 325 mg tablet RxNorm: 006217 1-2 Tablet(s) PO Q6 a s needed 12/29/2018 12/28/2018 Inactive testosterone cypiona te 200 mg/mL intramuscular oil RxNorm: 2487878 1.25 Milliliter(s) IM 12/29/2018 12/29/2018 Inactive hydrocodone 5 mg-fanny taminophen 325 mg tablet RxNorm: 932997 1 Tablet(s) PO TID TN N 12/28/2018 12/28/2018 In active testosterone cypiona te 200 mg/mL intramuscular oil RxNorm: 5148773 1.25 Milliliter(s) IM 2 x month 12/22/2018 04/12/2019 Inactive gabapentin 300 mg ca psule RxNorm: 740073 1 Capsule(s) PO QID 12/16/2018 12/10/2019 Active testosterone cypiona te 200 mg/mL intramuscular oil RxNorm: 3690102 Milliliter(s) IM 12/16/2018 12/16/2018 In active Voltaren 1 % topical gel RxNorm: 498948 2 Gram(s) APPLY TOPIC ALLY four TIMES A DAY 12/16/2018 01/20/2019 In active trazodone 100 mg tablet RxNorm: 769417 TAKE ONE TABLET BY MOUTH EVERY NIGHT AT BEDTIME 12/07/2018 06/04/2019 Active hydrocodone 5 mg-fanny taminophen 325 mg tablet RxNorm: 325477 1 Tablet(s) PO TID TN N 11/29/2018 12/27/2018 In active Adderall 30 mg tablet RxNorm: 349080 2 Tablet(s) PO daily 11/29/2018 12/28/2018 Inactive clindamycin 1 %-arthur oyl peroxide 5 % topical gel RxNorm: 120242 TOP APPLY TO AFFECTED AREA(S) ON SERNA TWO TIMES A DAY 11/17/2018 No Stop Date Active testosterone cypiona te 200 mg/mL intramuscular oil RxNorm: 4227300 1 Milliliter(s) IM 2 x month 11/17/2018 12/21/2018 Inactive Zorvolex 35 mg capsule RxNorm: 4875722 1 Capsule(s) PO TID as needed for pain 11/15/2018 05/13/2019 In active ketoconazole 2 % top ical cream RxNorm: 078460 APPLY ONE GRAM TOPICA LLY TWICE A DAY 11/15/2018 11/29/2018 In active testosterone cypiona te 200 mg/mL intramuscular oil RxNorm: 5084842 1 Milliliter(s) IM 11/15/2018 11/14/2018 Inactive hydrocodone 5 mg-fanny taminophen 325 mg tablet RxNorm: 341477 1 Tablet(s) PO TID TN N 11/02/2018 11/28/2018 In active Singulair 10 mg tablet RxNorm: 023728 1 Tablet(s) PO daily 11/01/2018 07/28/2019 Active testosterone cypiona te 200 mg/mL intramuscular oil RxNorm: 9557777 1 Milliliter(s) IM 2 x month 11/01/2018 11/16/2018 Inactive Adderall 30 mg tablet RxNorm: 316034 2 Tablet(s) PO daily 10/29/2018 11/27/2018 Inactive gabapentin 300 mg ca psule RxNorm: 235402 1 Capsule(s) PO BID m ay take TID 10/19/2018 12/15/2018 In active gabapentin 300 mg ca psule RxNorm: 783207 1 Capsule(s) PO BID m ay take TID 10/19/2018 10/18/2018 In active alprazolam 1 mg tablet RxNorm: 852271 1 Tablet(s) PO TID as needed 10/15/2018 04/19/2019 Inactive testosterone cypiona te 200 mg/mL intramuscular oil RxNorm: 330969 Milliliter(s) IM 09/28/2018 09/28/2018 In active pravastatin 40 mg ta blet RxNorm: 130276 TAKE ONE TABLET BY MO UTH EVERY NIGHT AT BEDTIME 09/27/2018 09/21/2019 Active Tamiflu 75 mg capsule RxNorm: 205332 1 Capsule(s) PO BID 09/24/2018 09/28/2018 Inactive Adderall 30 mg tablet RxNorm: 964647 2 Tablet(s) PO daily 09/20/2018 10/19/2018 Inactive hydrocodone 5 mg-fanny taminophen 325 mg tablet RxNorm: 630913 1 Tablet(s) PO TID TN N 09/20/2018 11/01/2018 In active testosterone cypiona te 200 mg/mL intramuscular oil RxNorm: 045080 Milliliter(s) IM 09/16/2018 09/16/2018 In active testosterone cypiona te 200 mg/mL intramuscular oil RxNorm: 539061 1 Milliliter(s) IM 09/02/2018 09/02/2018 Inactive testosterone cypiona te 200 mg/mL intramuscular oil RxNorm: 792354 Milliliter(s) IM 08/19/2018 08/19/2018 In active Adderall 30 mg tablet RxNorm: 921787 2 Tablet(s) PO daily 08/18/2018 09/16/2018 Inactive tramadol 50 mg tablet RxNorm: 183349 1-2 Tablet(s) PO Q6 as needed 08/18/2018 01/12/2019 In active Dexilant 60 mg capsu le, delayed release RxNorm: 897536 1 Capsule(s) PO BID 08/17/2018 08/11/2019 Ac tive ketoconazole 2 % top ical cream RxNorm: 535251 1 Gram(s) TOP BID 08/17/2018 08/26/2018 Inactive Zorvolex 35 mg capsule RxNorm: 2402185 1 Capsule(s) PO TID as needed for pain 08/17/2018 08/16/2018 In active atenolol 50 mg tablet RxNorm: 297469 1 Tablet(s) PO BID 08/17/2018 12/28/2018 Inactive Zorvolex 35 mg capsule RxNorm: 0669289 1 Capsule(s) PO TID as needed for pain 08/17/2018 11/14/2018 In active ketoconazole 2 % top ical cream RxNorm: 349622 1 Gram(s) TOP BID 08/02/2018 08/11/2018 Inactive hydrocortisone 2.5 % topical cream RxNorm: 841533 1 Application TOP BID 07/21/2018 No Stop Date Active Adderall 30 mg tablet RxNorm: 660442 2 Tablet(s) PO daily 07/20/2018 08/17/2018 Inactive testosterone cypiona te 200 mg/mL intramuscular oil RxNorm: 760165 Milliliter(s) IM 07/15/2018 07/15/2018 In active alprazolam 1 mg tablet RxNorm: 908146 1 Tablet(s) PO TID as needed 07/12/2018 09/07/2018 Inactive hydrocodone 5 mg-fanny taminophen 325 mg tablet RxNorm: 324628 1 Tablet(s) PO TID TN N 06/30/2018 09/19/2018 In active pravastatin 40 mg ta blet RxNorm: 254719 1 Tablet(s) PO QHS 06/18/2018 09/15/2018 Inactive Adderall 30 mg tablet RxNorm: 775981 2 Tablet(s) PO daily 06/18/2018 07/17/2018 Inactive testosterone cypiona te 200 mg/mL intramuscular oil RxNorm: 648083 Milliliter(s) IM 06/17/2018 06/17/2018 In active Voltaren 1 % topical gel RxNorm: 927153 APPLY TOPICALLY TWO T IMES A DAY 06/16/2018 07/21/2018 In active Vitamin D2 50,000 un it capsule RxNorm: 1618498 1 Capsule(s) PO QW 05/21/2018 No Stop Date Active Adderall 30 mg tablet RxNorm: 392917 2 Tablet(s) PO daily 05/21/2018 06/17/2018 Inactive testosterone cypiona te 200 mg/mL intramuscular oil RxNorm: 809874 Milliliter(s) IM 05/21/2018 05/21/2018 In active testosterone cypiona te 200 mg/mL intramuscular oil RxNorm: 2816364 1 Milliliter(s) IM monthly 05/20/2018 09/16/2018 Inactive testosterone cypiona te 200 mg/mL intramuscular oil RxNorm: 015138 1 Milliliter(s) IM monthly 05/20/2018 05/19/2018 Inactive hydrocodone 5 mg-fanny taminophen 325 mg tablet RxNorm: 862953 1 Tablet(s) PO TID TN N 05/20/2018 06/29/2018 In active Vitamin D2 50,000 un it capsule RxNorm: 1258197 1 Capsule(s) PO QW 05/18/2018 05/20/2018 Inactive triamcinolone aceton destin 0.025 % topical cream RxNorm: 0891948 1 Application TOP BI D 05/13/2018 No Stop Date Active Dexilant 60 mg capsu le, delayed release RxNorm: 917576 1 Capsule(s) PO BID 05/13/2018 08/16/2018 In active Zorvolex 35 mg capsule RxNorm: 1878628 1 Capsule(s) PO TID as needed for pain 05/12/2018 08/09/2018 In active Voltaren 1 % topical gel RxNorm: 056146 1 Application TOP BID 05/12/2018 06/15/2018 Inactive acyclovir 400 mg tablet RxNorm: 337922 1 Tablet(s) PO TID as needed take at ons et of symptoms of cold sores x 5 days 05/10/2018 No Stop Date Active ProAir HFA 90 mcg/ac tuation aerosol inhaler RxNorm: 990444 1 Puff(s) INH QID as needed 05/10/2018 No Stop Date Active baclofen 20 mg tablet RxNorm: 263399 1 Tablet(s) PO TID as needed muscle spas ms 05/10/2018 06/08/2018 In active Singulair 10 mg tablet RxNorm: 449250 1 Tablet(s) PO daily 05/10/2018 08/07/2018 Inactive atenolol 50 mg tablet RxNorm: 112925 1 Tablet(s) PO BID 05/10/2018 08/07/2018 Inactive triamcinolone aceton destin 0.025 % topical cream RxNorm: 5519623 1 Application TOP BI D 05/10/2018 05/12/2018 In active paroxetine 20 mg tablet RxNorm: 7854388 2 Tablet(s) PO QHS 05/10/2018 04/19/2019 Inactive tramadol 50 mg tablet RxNorm: 548809 1 Tablet(s) PO TID as needed 05/10/2018 05/19/2018 Inactive Dexilant 60 mg capsu le, delayed release RxNorm: 024510 1 Capsule(s) PO daily 05/10/2018 05/12/2018 In active alprazolam 1 mg tablet RxNorm: 051840 1 Tablet(s) PO TID as needed 05/10/2018 08/06/2018 Inactive trazodone 100 mg tablet RxNorm: 946920 1 Tablet(s) PO QHS 05/10/2018 11/05/2018 Inactive cyclobenzaprine 10 m g tablet RxNorm: 006585 1 Tablet(s) PO TID as needed muscle spasms 05/07/2018 07/12/2018 Inactive trazodone 100 mg tablet RxNorm: 496926 1 Tablet(s) PO QHS 05/07/2018 05/09/2018 Inactive Adderall 30 mg tablet RxNorm: 337139 2 Tablet(s) PO daily 04/19/2018 05/18/2018 Inactive alprazolam 1 mg tablet RxNorm: 768775 1 Tablet(s) PO BID 04/19/2018 05/09/2018 Inactive Adderall 30 mg tablet RxNorm: 173726 2 Tablet(s) PO daily 03/26/2018 04/18/2018 Inactive paroxetine 20 mg tablet RxNorm: 7454981 2 Tablet(s) PO QHS 03/15/2018 05/09/2018 Inactive Adderall 30 mg tablet RxNorm: 537580 2 Tablet(s) PO daily 02/25/2018 03/25/2018 Inactive cyclobenzaprine 10 m g tablet RxNorm: 144338 1 Tablet(s) PO TID as needed muscle spasms 02/22/2018 05/06/2018 Inactive tramadol 50 mg tablet RxNorm: 824995 1 Tablet(s) PO TID as needed 02/22/2018 03/07/2018 Inactive tramadol 50 mg tablet RxNorm: 726128 1 Tablet(s) PO TID as needed 02/22/2018 02/21/2018 Inactive trazodone 100 mg tablet RxNorm: 447332 1 Tablet(s) PO QHS 02/03/2018 05/03/2018 Inactive trazodone 100 mg tablet RxNorm: 111963 1 Tablet(s) PO QHS 02/03/2018 02/02/2018 Inactive Adderall 30 mg tablet RxNorm: 115829 2 Tablet(s) PO daily 01/27/2018 02/18/2018 Inactive acyclovir 400 mg tablet RxNorm: 288717 1 Tablet(s) PO TID as needed take at ons et of symptoms of cold sores x 5 days 01/15/2018 05/09/2018 Inactive Bactrim DS 800 mg-16 0 mg tablet RxNorm: 197046 1 Tablet(s) PO BID 01/11/2018 01/17/2018 Inactive Bactrim DS 800 mg-16 0 mg tablet RxNorm: 493932 1 Tablet(s) PO BID 01/11/2018 01/10/2018 Inactive Dexilant 60 mg capsu le, delayed release RxNorm: 045309 1 Capsule(s) PO daily 12/23/2017 05/09/2018 In active Dexilant 60 mg capsu le, delayed release RxNorm: 881239 1 Capsule(s) PO daily 12/23/2017 12/22/2017 In active atenolol 50 mg tablet RxNorm: 782103 1 Tablet(s) PO BID 12/15/2017 05/09/2018 Inactive alprazolam 1 mg tablet RxNorm: 218999 1-1.5 Tablet(s) PO daily 12/15/2017 04/18/2018 Inactive ceftriaxone 500 mg s olution for injection RxNorm: 6834128 Inj 08/03/2015 08/03/2015 Inactive paroxetine 20 mg tablet RxNorm: 4979582 2 Tablet(s) PO QHS 08/01/2015 10/29/2015 Inactive pravastatin 40 mg ta blet RxNorm: 048982 1/2 Tablet(s) PO QHS 08/01/2015 12/14/2017 Inactive Trazadone 100mg 100 mg RxNorm: 1 PO daily 08/01/2015 11/27/2015 Inactive Trazadone 100mg 100 mg RxNorm: 1 PO daily 08/01/2015 05/04/2018 Inactive atenolol 50 mg tablet RxNorm: 579301 1 Tablet(s) PO daily 08/01/2015 10/29/2015 Inactive ibuprofen 800 mg tablet RxNorm: 796570 1 Tablet(s) PO BID -TID No Start Date Active Fish Oil 360 mg-1,20 0 mg capsule RxNorm: 582023 1 Capsule(s) PO BID No Start Date Active Zyrtec 10 mg tablet RxNorm: 0506222 1 Tablet(s) PO daily No Start Date Active pravastatin 40 mg ta blet RxNorm: 044165 1/2 Tablet(s) PO QHS No Start Date 07/31/2015 Inactive Benadryl Allergy 25 mg tablet RxNorm: 8198593 1 Tablet(s) PO daily No Start Date 07/19/2018 Inactive Adderall 30 mg tablet RxNorm: 629808 2 Tablet(s) PO daily No Start Date 01/26/2018 Inactive Aspirin Low Dose 81 mg tablet,delayed release RxNorm: 615571 1 Tablet(s) PO BID No Start Date 07/19/2018 Inactive Singulair 10 mg tablet RxNorm: 091352 1 Tablet(s) PO daily No Start Date 05/09/2018 Inactive cyclobenzaprine 10 m g tablet RxNorm: 084326 1 Tablet(s) PO TID as needed muscle spasms No Start Date 02/21/2018 Inactive Trazadone 100mg 100 mg RxNorm: 1 PO daily No Start Date 07/31/2015 Inactive clindamycin 1 %-arthur oyl peroxide 5 % topical gel RxNorm: 161657 TOP APPLY TO AFFECTED AREA(S) ON SERNA TWO TIMES A DAY No Start Date 11/16/2018 Inactive hydrocortisone 2.5 % topical cream RxNorm: 408390 1 Application TOP BID No Start Date 07/20/2018 Inactive alprazolam 1 mg tablet RxNorm: 337786 2 Tablet(s) PO daily No Start Date 12/14/2017 Inactive tramadol 50 mg tablet RxNorm: 454104 1-2 Tablet(s) PO Q6 as needed No Start Date 08/17/2018 Inactive Vitamin D2 50,000 un it capsule RxNorm: 7531528 1 Capsule(s) PO QW No Start Date 05/17/2018 Inactive pantoprazole 40 mg t ablet,delayed release RxNorm: 197439 1 Tablet(s) PO BID No Start Date 12/22/2017 Inactive atenolol 50 mg tablet RxNorm: 096528 1 Tablet(s) PO daily No Start Date 07/31/2015 Inactive hydrocodone 10 mg-ac etaminophen 325 mg tablet RxNorm: 355598 1 Tablet(s) PO Q6 as needed No Start Date 05/16/2019 Inactive paroxetine 20 mg tablet RxNorm: 762122 2 Tablet(s) PO QHS No Start Date 07/31/2015 Inactive Medication Administered Medication Codes Instruc tions Start Date Status testosterone cypionate 200 mg/mL intramuscular oil RxNorm: 6293171 1.25Milliliter 12/29/2018 No longer Active testosterone cypionate 200 mg/mL intramuscular oil RxNorm: 1311773 Milliliter 12/16/2018 No longer Active testosterone cypionate 200 mg/mL intramuscular oil RxNorm: 3852839 1Milliliter 11/15/2018 No longer Active testosterone cypionate 200 mg/mL intramuscular oil RxNorm: 809966 Milliliter 09/28/2018 No longer Active testosterone cypionate 200 mg/mL intramuscular oil RxNorm: 513738 Milliliter 09/16/2018 No longer Active testosterone cypionate 200 mg/mL intramuscular oil RxNorm: 212603 1Milliliter 09/02/2018 No longer Active testosterone cypionate 200 mg/mL intramuscular oil RxNorm: 230193 Milliliter 08/19/2018 No longer Active testosterone cypionate 200 mg/mL intramuscular oil RxNorm: 903952 Milliliter 07/15/2018 No longer Active testosterone cypionate 200 mg/mL intramuscular oil RxNorm: 449043 Milliliter 06/17/2018 No longer Active testosterone cypionate 200 mg/mL intramuscular oil RxNorm: 309540 Milliliter 05/21/2018 No longer Active ceftriaxone 500 mg solution for injection RxNorm: 5516413 08/03/2015 No longer A ctive Immunizations Vaccine [...] Other malaise ICD-10: R53.81 ICD-9: 780.79 12/16/2018 Spinal stenosis, thoracic region ICD -10: [...] Code Result Date Comp. Metabolic Panel (14) 97868 GLUCOSE 117 mg/dL 12/17/2018 Comp. Metabolic Panel (14) 29197 BUN 17 mg/dL 12/17/2018 Comp. Metabolic Panel (14) 28922 CREATININE 0.99 mg/dL 12/17/2018 Comp. Metabolic Panel (14) 83303 SODIUM 137 mmol/L 12/17/2018 Comp. Metabolic Panel (14) 55925 POTASSIUM 4.6 mmol/L 12/17/2018 Comp. Metabolic Panel (14) 59774 CHLORIDE 102 mmol/L 12/17/2018 Comp. Metabolic Panel (14) 90003 CARBON DIOXIDE 21 mmol/L 12/17/2018 Comp. Metabolic Panel (14) 47027 CALCIUM 9.4 mg/dL 12/17/2018 Comp. Metabolic Panel (14) 78328 TOTAL PROTEIN 7.5 g/dL 12/17/2018 Comp. Metabolic Panel (14) 78512 ALBUMIN 5.1 g/dL 12/17/2018 Comp. Metabolic Panel (14) 25337 ALKALINE PHOSPHATASE 79 U/L 12/17/2018 Comp. Metabolic Panel (14) 67326 TOTAL BILIRUBIN 0.5 mg/dL 12/17/2018 Comp. Metabolic Panel (14) 36347 SGOT (AST) 34 U/L 12/17/2018 Comp. Metabolic Panel (14) 91219 SGPT (ALT) 40 U/L 12/17/2018 Comp. Metabolic Panel (14) 11332 eGFR (mL/min/1.73m2) 115 12/17/2018 Comp. Metabolic Panel (14) 19966 INTERPRETATION 12/17/2018 Testosterone Serum 367171 TESTOSTERONE 96.8 ng/dL 12/17/2018 Cbc With Differential/Platelet 23010 WBC 5.61 thou/uL 9 Cbc With Differential/Platelet 63107 RBC 5.53 mil/uL 12/17/2018 Cbc With Differential/Platelet 10918 HEMOGLOBIN 15.4 g/dL 12/17/2018 Cbc With Differential/Platelet 78450 HEMATOCRIT 48.1 % 12/17/2018 Cbc With Differential/Platelet 00371 MCV 87.0 fL 12/17/2018 Cbc With Differential/Platelet 22674 MCH 27.8 pg 12/17/2018 Cbc With Differential/Platelet 53122 MCHC 32.0 g/dL 12/17/2018 Cbc With Differential/Platelet 14082 RDW-CV 13.9 % 12/17/2018 Cbc With Differential/Platelet 66605 PLATELET COUNT 294 thou/uL 12/17/2018 Cbc With Differential/Platelet 43915 NEUTROPHIL % 71.2 % 12/17/2018 Cbc With Differential/Platelet 75491 LYMPHOCYTE % 22.2 % 12/17/2018 Cbc With Differential/Platelet 81597 MONOCYTE % 5.4 % 12/17/2018 Cbc With Differential/Platelet 51342 EOS % 0.9 % 12/17/2018 Cbc With Differential/Platelet 26191 BASO % 0.4 % 12/17/2018 Cbc With Differential/Platelet 45187 NEUTROPHIL ABS # 3.99 thou/uL 12/17/2018 Cbc With Differential/Platelet 96393 LYMPH ABS # 1.25 thou/uL 12/17/2018 Cbc With Differential/Platelet 81845 MONOCYTE ABS # 0.30 thou/uL 12/17/2018 Cbc With Differential/Platelet 86152 EOS ABS # 0.05 thou/uL 9 Cbc With Differential/Platelet 23673 BASO ABS # 0.02 thou/uL 12/17/2018 Lipid Panel 83446 CHOLES TEROL 227 mg/dL 12/17/2018 Lipid Panel 88291 TRIGLY CERIDES 229 mg/dL 12/17/2018 Lipid Panel 44708 HDL 41 mg/dL 12/17/2018 Lipid Panel 34104 CHOLES TEROL/HDL 5.54 12/17/2018 Lipid Panel 10193 LDL (C ALCULATED) 140 mg/dL 12/17/2018 Lipid Panel 00095 LDL/HDL 3.41 12/17/2018 Lipid Panel 74632 INTERP RETATION 12/17/2018 Tsh 987046 TSH 1.190 uIU/mL 12/17/2018 Testosterone Serum 140681 TESTOSTERONE 44.1 ng/dL 08/18/2018 Hemoglobin 545300 WBC 7.62 thou/uL 08/17/2018 Hemoglobin 350123 RBC 5.23 mil/uL 08/17/2018 Hemoglobin 357629 HEMOGL OBIN 15.0 g/dL 08/17/2018 Hemoglobin 287630 HEMATO CRIT 45.0 % 08/17/2018 Hemoglobin 587061 MCV 86.0 fL 08/17/2018 Hemoglobin 520759 MCH 28.7 pg 08/17/2018 Hemoglobin 296627 MCHC 33.3 g/dL 08/17/2018 Hemoglobin 043405 RDW-CV 12.9 % 08/17/2018 Hemoglobin 228198 PLATEL ET COUNT 313 thou/uL 08/17/2018 Hematocrit 702897 WBC 7.62 thou/uL 08/17/2018 Hematocrit 451802 RBC 5.23 mil/uL 08/17/2018 Hematocrit HEMOGL OBIN 15.0 g/dL 08/17/2018 Hematocrit HEMATO CRIT 45.0 % 08/17/2018 Hematocrit MCV 86.0 fL 08/17/2018 Hematocrit MCH 28.7 pg 08/17/2018 Hematocrit MCHC 33.3 g/dL 08/17/2018 Hematocrit RDW-CV 12.9 % 08/17/2018 Hematocrit PLATEL ET COUNT 313 thou/uL 08/17/2018 Culture Mrsa [id number] MRSA CULTURE SEE NOTES 06/21/2018 Comp. Metabolic Panel (14) 63107 GLUCOSE 101 mg/dL 06/18/2018 Comp. Metabolic Panel (14) 25968 BUN 18 mg/dL 06/18/2018 Comp. Metabolic Panel (14) 88160 CREATININE 0.99 mg/dL 06/18/2018 Comp. Metabolic Panel (14) 51251 SODIUM 141 mmol/L 06/18/2018 Comp. Metabolic Panel (14) 89746 POTASSIUM 4.3 mmol/L 06/18/2018 Comp. Metabolic Panel (14) 64791 CHLORIDE 103 mmol/L 06/18/2018 Comp. Metabolic Panel (14) 02965 CARBON DIOXIDE 23 mmol/L 06/18/2018 Comp. Metabolic Panel (14) 88780 CALCIUM 9.8 mg/dL 06/18/2018 Comp. Metabolic Panel (14) 68687 TOTAL PROTEIN 7.1 g/dL 06/18/2018 Comp. Metabolic Panel (14) 14905 ALBUMIN 5.2 g/dL 06/18/2018 Comp. Metabolic Panel (14) 87883 ALKALINE PHOSPHATASE 65 U/L 06/18/2018 Comp. Metabolic Panel (14) 63045 TOTAL BILIRUBIN 0.6 mg/dL 06/18/2018 Comp. Metabolic Panel (14) 69790 SGOT (AST) 21 U/L 06/18/2018 Comp. Metabolic Panel (14) 77454 SGPT (ALT) 24 U/L 06/18/2018 Comp. Metabolic Panel (14) 63006 eGFR (mL/min/1.73m2) 115 06/18/2018 Comp. Metabolic Panel (14) 36707 INTERPRETATION 06/18/2018 Cbc With Differential/Platelet 51753 WBC 4.55 thou/uL 8 Cbc With Differential/Platelet 03346 RBC 5.13 mil/uL 06/18/2018 Cbc With Differential/Platelet 82206 HEMOGLOBIN 14.4 g/dL 06/18/2018 Cbc With Differential/Platelet 96245 HEMATOCRIT 44.1 % 06/18/2018 Cbc With Differential/Platelet 32616 MCV 85.9 fL 06/18/2018 Cbc With Differential/Platelet 05407 MCH 28.1 pg 06/18/2018 Cbc With Differential/Platelet 32541 MCHC 32.7 g/dL 06/18/2018 Cbc With Differential/Platelet 26726 RDW-CV 13.4 % 06/18/2018 Cbc With Differential/Platelet 76024 PLATELET COUNT 287 thou/uL 06/18/2018 Cbc With Differential/Platelet 25868 NEUTROPHIL % 53.9 % 06/18/2018 Cbc With Differential/Platelet 34983 LYMPHOCYTE % 36.1 % 06/18/2018 Cbc With Differential/Platelet 25585 MONOCYTE % 7.4 % 06/18/2018 Cbc With Differential/Platelet 99105 EOS % 1.9 % 06/18/2018 Cbc With Differential/Platelet 94112 BASO % 0.8 % 06/18/2018 Cbc With Differential/Platelet 93817 NEUTROPHIL ABS # 2.45 thou/uL 06/18/2018 Cbc With Differential/Platelet 20210 LYMPH ABS # 1.64 thou/uL 06/18/2018 Cbc With Differential/Platelet 60502 MONOCYTE ABS # 0.34 thou/uL 06/18/2018 Cbc With Differential/Platelet 02564 EOS ABS # 0.09 thou/uL 8 Cbc With Differential/Platelet 99337 BASO ABS # 0.04 thou/uL 06/18/2018 Review [...] Procedure Codes Date THER/PROPH/DIAG INJ SC/IM CPT-4: 31118 12/29/2018 THER/PROPH/DIAG INJ SC/IM CPT-4: 51923 12/16/2018 THER/PROPH/DIAG INJ SC/IM CPT-4: 11188 11/15/2018 THER/PROPH/DIAG INJ SC/IM CPT-4: 03635 09/28/2018 THER/PROPH/DIAG INJ SC/IM CPT-4: 86732 09/16/2018 THER/PROPH/DIAG INJ SC/IM CPT-4: 73367 09/02/2018 THER/PROPH/DIAG INJ SC/IM CPT-4: 98824 08/19/2018 IMMUNIZATION ADMIN CPT- 4: 81416 08/02/2018 FLU VAC NO PRSV 4 VA L 3 YRS+ CPT-4: 73912 08/02/2018 THER/PROPH/DIAG INJ SC/IM CPT-4: 11037 07/15/2018 THER/PROPH/DIAG INJ SC/IM CPT-4: 15567 06/17/2018 THER/PROPH/DIAG INJ SC/IM CPT-4: 78051 05/21/2018 THER/PROPH/DIAG INJ SC/IM CPT-4: 58868 08/03/2015 ROCEPHIN, PER 250 MG CPT-4: J0696 08/03/2015 Vital Signs Date Vital 05/05/2019 Heigh t: Weight: 04/20/2019 Blood Pressure 1: 160/84 Code: 8480-6 BMI: 34.0 Code: 81152-8 Heart Rate 1: 82 bpm Height: 5'7" SpO2: 97% Weight: 216 lbs 13 o z 12/29/2018 Blood Pressure 1: 144/90 Code: 8480-6 BMI: 34.8 Code: 70663-8 Heart Rate 1: 91 bpm Height: 5'7" SpO2: 98% Weight: 222 lbs 12/20/2018 Blood Pressure 1: 124/76 Code: 8480-6 BMI: 35.4 Code: 16302-3 Heart Rate 1: 79 bpm Height: 5'7" SpO2: 99% Weight: 226 lbs 12/16/2018 Blood Pressure 1: 160/90 Code: 8480-6 BMI: 35.4 Code: 24618-6 Heart Rate 1: 90 bpm Height: 5'7" SpO2: 95% Weight: 226 lbs 11/01/2018 Blood Pressure 1: 146/82 Code: 8480-6 BMI: 36.0 Code: 58739-0 Heart Rate 1: 87 bpm Height: 5'7" SpO2: 98% Weight: 230 lbs 09/24/2018 Blood Pressure 1: 140/82 Code: 8480-6 BMI: 36.0 Code: 58448-0 Heart Rate 1: 86 bpm Height: 5'7" SpO2: 98% Temperature: 37.1 (C ) / 98.7 (F) Weight: 230 lbs 08/16/2018 Blood Pressure 1: 148/82 Code: 8480-6 Blood Pressure 2: 157/92 Code: 8480-6 BMI: 35.9 Code: 09245-6 Heart Rate 1: 72 bpm Height: 5'7" SpO2: 96% Weight: 229 lbs 08/02/2018 Blood Pressure 1: 142/86 Code: 8480-6 BMI: 35.2 Code: 35861-6 Heart Rate 1: 101 bpm Height: 5'7" SpO2: 97% Weight: 225 lbs 05/31/2018 Blood Pressure 1: 134/82 Code: 8480-6 BMI: 35.4 Code: 23065-7 Heart Rate 1: 91 bpm Height: 5'7" SpO2: 96% Weight: 226 lbs 05/20/2018 Blood Pressure 1: 160/100 Code: 8480-6 BMI: 35.2 Code: 30385-4 Heart Rate 1: 89 bpm Height: 5'7" SpO2: 98% Weight: 225 lbs 05/10/2018 Blood Pressure 1: 124/70 Code: 8480-6 BMI: 35.1 Code: 92468-6 Heart Rate 1: 93 bpm Height: 5'7" SpO2: 99% Weight: 224 lbs 01/15/2018 Blood Pressure 1: 142/92 Code: 8480-6 BMI: 36.3 Code: 06743-5 Heart Rate 1: 77 bpm Height: 5'7" SpO2: 98% Weight: 232 lbs 12/15/2017 Blood Pressure 1: 156/98 Code: 8480-6 BMI: 36.2 Code: 33525-0 Heart Rate 1: 87 bpm Height: 5'7" [...] eye 01/15/2018 None vision change Quality [place] 01/15/2018 None vision change Quality lo ss [...] vision 12/15/2017 None vision change Quality ac [place] 12/15/2017 None vision change Onset and Resolution sudden in onset 12/15/2017 None vision change Onset of Symptom 3.5 weeks ago 12/15/2017 None vision change Limitation on Activities severely limits vision 12/15/2017 None vision change Triggers n o known associated factors 12/15/2017 None Advance Directives No Advance Directive data Encounters Encounter Performer Loca tion Codes Date 57250 EST. PATIENT, LEVEL IV Diagnosis: Cervicalgia[ICD10: M54.2] Diagnosis: Other fatigue[ICD10: R53.83] Diagnosis: Essential (primary) hypertension[ICD10: I10] Diagnosis: Major depressive disorder, recurrent, moderate[ICD10: F33.1] [facility] CPT-4: 36353 05/05/2019 ([id number]) 35188 EST. P ATIENT, LEVEL III Diagnosis: Essential (primary) hypertension[ICD10: I10] Diagnosis: Major depressive disorder, recurrent, moderate[ICD10: F33.1] Diagnosis: Dysphagia, pharyngeal phase[ICD10: R13.13] Radha Gonzalez MD, [facility] CPT-4: 56765 04/20/2019 ([id number]) 79119 EST. 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 PATIENT, LEVEL III Diagnosis: Pain in right arm[ICD10: M79.601] Sonia Gonzalez MD, [facility] CPT-4: 18169 12/20/2018 ([id number]) 89211 EST. 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 PATIENT, LEVEL III Diagnosis: Acute upper respiratory infection, unspecified[ICD10: J06.9] Diagnosis: Other allergic rhinitis[ICD10: J30.89] Sonia Gonzalez MD, [facility] CPT-4: 19873 09/24/2018 ([id number]) 53556 EST. 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 P ATIENT, LEVEL IV Diagnosis: Essential (primary) hypertension[ICD10: I10] Diagnosis: Cervicalgia[ICD10: M54.2] Radha Gonzalez MD, [facility] CPT-4: 87936 05/31/2018 ([id number]) 48975 EST. 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 05/05/2019 Appointment: Sonia Potter WPtel: [facility] [place] (30 min) Complex 05/05/2019 Appointment: Radha Gonzalez WPtel: [facility] (15 min) Moderate 05/05/2019 Patient Education: [...] daily. 04/20/2019 Appointment: Radha Gonzalez WPtel: [facility] (15 min) Moderate 04/20/2019 Patient Education: Patient [...] injections. 12/29/2018 Appointment: Radha Gonzalez WPtel: [facility] (15 min) Moderate 12/29/2018 Patient Education: Patient Medication Summary Completed 12/29/2018 Patient Education: .Cervicalgia Neck Pain Completed 12/29/2018 Patient Education: Patient Medication Summary Completed 12/21/2018 Care Plan: %Hba1C add to blood from 12/17 LOINC : 92181-6 Pending 12/21/2018 Visit Plan: Right arm pain - dayna deformity noted - will refer to ortho - The pt is to use prn antiinflammatories to manage acute pain. The patient is to call the office if the pain is worsening or does not improve. 12/20/2018 Appointment: Sonia Potter WPtel: [facility] (15 min) Moderate 12/20/2018 Patient Education: Patient [...] with testosterone. 12/16/2018 Appointment: Radha Gonzalez WPtel: [facility] [place] (15 min) Moderate 12/16/2018 Patient Education: [...] needed. 11/01/2018 Appointment: Radha Gonzalez WPtel: [phone] [facility] (15 min) Moderate 11/01/2018 Patient Education: Patient [...] spray. 09/24/2018 Appointment: Sonia Potter WPtel: [phone] [facility] (15 min) Moderate 09/24/2018 Patient Education: Patient [...] at home. Multiple symptoms - referral to [facility] - appt in September 30, 2018. 08/16/2018 Appointment: Radha Gonzalez WPtel: [facility] (15 min) Moderate 08/16/2018 Patient [...] at home. Multiple symptoms - referral to [facility] - rashes, hypogonadism, optic neuritis - [...] 08/02/2018 Care Plan: Referral Order SNOMED-CT : 984920204 Pending 08/02/2018 Appointment: Injection 07/15/2018 Patient Education: [...] home. Cervical spine stenosis - referral to [facility] physical therapy. I have also recommended a Referral to Dr. Dunaway. I have called and talked to Dr. Dunaway - he looked at the pt's imaging and agrees that getting the pt in to be seen soon would be a preferred option. 05/31/2018 Appointment: Radha Gonzalez WPtel: [phone] [facility] (15 min) Moderate 05/31/2018 Patient Education: Patient Medication Summary Completed 05/31/2018 Care Plan: Referral Order SNOMED-CT : 382367424 Pending 05/31/2018 Care Plan: Referral Order SNOMED-CT : 020532629 Pending 05/31/2018 Appointment: Injection 05/21/2018 Patient Education: Patient Medication Summary Completed 05/21/2018 Care Plan: Referral Order SNOMED-CT : 614423369 Pending 05/21/2018 Visit Plan: Cervical and thoracic s tenosis with spinal cord compression -refer for appt with Dr Marr -rx for hydrocodone for pain-start gabapentin at bedtime Soft tissue lesion-left chest-schedule CTfor further evaluation HTN-elevated today-hold adderall-monitor blood pressure 05/20/2018 Appointment: Hannah Simons WPtel: [facility] [place] (15 min) Moderate 05/20/2018 Patient Education: [...] this. 05/10/2018 Appointment: Sonia Potter WPtel: [phone] [facility] [place] (15 min) Moderate 05/10/2018 Patient Education: Patient Medication Summary Completed 05/10/2018 Visit Plan: Sleep apnea - rx for cp ap - actually autopap was recommended and pt given rx today. HTN - referral to dr. kapoor - pt needs stress testing. 01/15/2018 Appointment: Rad[facility] Gonzalez [facility]el: [phone] [place] (15 min) Moderate 01/15/2018 Patient Education: Patient Medication Summary Completed 01/15/2018 Care Plan: Referral Order SNOMED-CT : 376432654 Pending 01/15/2018 Visit Plan: Well Adult - [...] month. 12/15/2017 Appointment: Radha Gonzalez WPtel: [facility] [place] New Patient 12/15/2017 Patient Education: Patient Medication Summary Completed 12/15/2017 Care Plan: CHEST X-RAY 2VW FRONTAL&LATL LOINC : 18228-5 Pending 12/15/2017 Appointment: Radha Gonzalez WPtel: [facility] [place] (15 min) Moderate 12/08/2017 Appointment: (S) New Patient 08/13/2015 Visit Plan: steri strip placed on t humb of right hand - antibiotic shot given to patient and rx for keflex 500mg qid x 10 days given to the patient to fill prior to his trip to [place] 08/03/2015 Patient Education: Patient Medication Summary Completed 08/03/2015 Referral: External, Ordering Provider 08/03 Referral info faxed to [place]. Patient informed to be expecting a call from them with appt info Appointment Requested Referral: External, Ordering Provider Referral Appointment Requested Referral: External, Ordering Provider I called today; they will call him to schedule. Completed Referral: Armani Dunaway Referral Appointment Requested Referral: Mayte Kapoor Referral Appointment Requested Referral: [facility] WPtel: [facility] Referral Appointment Requested Referral: External, Ordering Provider [...] at home. Multiple symptoms - referral to [facility] - rashes, hypogonadism, optic neuritis - [...] at home. Multiple symptoms - referral to [facility] - appt in September 30, 2018. [...] to fill prior to his trip to [place] Prazosin - for night mcrae . Chronic [...] home. Cervical spine stenosis - referral to [facility] physical therapy. I have also recommended a Referral to Dr. Dunaway. I have called and talked to Dr. Dunaway - he looked at the pt's imaging and agrees that getting the pt in to be seen soon would be a preferred option.
--- OUTSIDE RECORDS SUMMARY | 2020-04-28 00:28 | XMS REPORT | CCD ---
Author Author Nilton Gonzalez Organization [facility] Address [address] [place] [address] Phone Care Team Providers Care Quality Tester Name Role Phone PP Unavailable CCM Unavailable Summary Purpose Interface Exchange Family history Brother Diagnosis Age At Onset Alcoholism Unknown Father Diagnosis Age At Onset Hypercholesterolemia Unknown Social History Social History Element Codes Description Effective Dates Employment Unknown Curre ntly unemployed 04/20/2019 Marital status Unknown S chanda 12/15/2017 Number of children Unknown 1 12/15/[address]: 003681662 Never smoker 12/15/[address]: 098813 Currently drinks alcohol <1 per week 12/15/2017 [...] Stop Date Sta tus Fill Instructions hydrocodone 5 mg-fanny taminophen 325 mg tablet RxNorm: 436119 1-2 Tablet(s) PO Q6 a s needed 05/16/2019 No Stop Date Active paroxetine 40 mg tablet RxNorm: 2067263 TAKE ONE TABLET BY MOUTH DAILY 05/16/2019 11/11/2019 Ac tive prazosin 1 mg capsule RxNorm: 375323 1 Capsule(s) PO daily 05/05/2019 06/03/2019 Active paroxetine 40 mg tablet RxNorm: 6885838 1 Tablet(s) PO daily 04/20/2019 05/15/2019 Inactive Adderall 30 mg tablet RxNorm: 912270 2 Tablet(s) PO daily 04/19/2019 05/18/2019 Active alprazolam 1 mg tablet RxNorm: 301598 1 Tablet(s) PO TID as needed 04/13/2019 06/11/2019 Active hydrocodone 5 mg-fanny taminophen 325 mg tablet RxNorm: 722723 1-2 Tablet(s) PO Q6 a s needed 03/21/2019 05/15/2019 Inactive Adderall 30 mg tablet RxNorm: 903151 2 Tablet(s) PO daily 03/21/2019 04/14/2019 Inactive tramadol 50 mg tablet RxNorm: 279819 1-2 Tablet(s) PO Q6 as needed 03/14/2019 No Stop Date Active hydrocodone 5 mg-fanny taminophen 325 mg tablet RxNorm: 099984 1-2 Tablet(s) PO Q6 a s needed 02/23/2019 03/20/2019 Inactive Adderall 30 mg tablet RxNorm: 483421 2 Tablet(s) PO daily 02/23/2019 03/20/2019 Inactive Adderall 30 mg tablet RxNorm: 671434 2 Tablet(s) PO daily 01/24/2019 02/22/2019 Inactive ketoconazole 2 % top ical cream RxNorm: 936618 APPLY ONE GRAM TOPICA LLY TWICE A DAY 01/12/2019 01/26/2019 In active tramadol 50 mg tablet RxNorm: 925355 1-2 Tablet(s) PO Q6 as needed 01/11/2019 03/13/2019 In active atenolol 50 mg tablet RxNorm: 933356 1.5 Tablet(s) PO BID 12/29/2018 12/23/2019 Active hydrocodone 5 mg-fanny taminophen 325 mg tablet RxNorm: 087366 1-2 Tablet(s) PO Q6 a s needed 12/29/2018 02/22/2019 Inactive Adderall 30 mg tablet RxNorm: 842154 2 Tablet(s) PO daily 12/29/2018 01/23/2019 Inactive hydrocodone 5 mg-fanny taminophen 325 mg tablet RxNorm: 700591 1-2 Tablet(s) PO Q6 a s needed 12/29/2018 12/28/2018 Inactive testosterone cypiona te 200 mg/mL intramuscular oil RxNorm: 4606997 1.25 Milliliter(s) IM 12/29/2018 12/29/2018 Inactive hydrocodone 5 mg-fanny taminophen 325 mg tablet RxNorm: 733287 1 Tablet(s) PO TID AZ N 12/28/2018 12/28/2018 In active testosterone cypiona te 200 mg/mL intramuscular oil RxNorm: 0988765 1.25 Milliliter(s) IM 2 x month 12/22/2018 04/12/2019 Inactive gabapentin 300 mg ca psule RxNorm: 730317 1 Capsule(s) PO QID 12/16/2018 12/10/2019 Active testosterone cypiona te 200 mg/mL intramuscular oil RxNorm: 2406210 Milliliter(s) IM 12/16/2018 12/16/2018 In active Voltaren 1 % topical gel RxNorm: 545029 2 Gram(s) APPLY TOPIC ALLY four TIMES A DAY 12/16/2018 01/20/2019 In active trazodone 100 mg tablet RxNorm: 748474 TAKE ONE TABLET BY MOUTH EVERY NIGHT AT BEDTIME 12/07/2018 06/04/2019 Active hydrocodone 5 mg-fanny taminophen 325 mg tablet RxNorm: 823465 1 Tablet(s) PO TID AZ N 11/29/2018 12/27/2018 In active Adderall 30 mg tablet RxNorm: 514617 2 Tablet(s) PO daily 11/29/2018 12/28/2018 Inactive clindamycin 1 %-arthur oyl peroxide 5 % topical gel RxNorm: 097723 TOP APPLY TO AFFECTED AREA(S) ON SERNA TWO TIMES A DAY 11/17/2018 No Stop Date Active testosterone cypiona te 200 mg/mL intramuscular oil RxNorm: 2315233 1 Milliliter(s) IM 2 x month 11/17/2018 12/21/2018 Inactive Zorvolex 35 mg capsule RxNorm: 2851727 1 Capsule(s) PO TID as needed for pain 11/15/2018 05/13/2019 In active ketoconazole 2 % top ical cream RxNorm: 628501 APPLY ONE GRAM TOPICA LLY TWICE A DAY 11/15/2018 11/29/2018 In active testosterone cypiona te 200 mg/mL intramuscular oil RxNorm: 2065099 1 Milliliter(s) IM 11/15/2018 11/14/2018 Inactive hydrocodone 5 mg-fanny taminophen 325 mg tablet RxNorm: 162490 1 Tablet(s) PO TID AZ N 11/02/2018 11/28/2018 In active Singulair 10 mg tablet RxNorm: 285830 1 Tablet(s) PO daily 11/01/2018 07/28/2019 Active testosterone cypiona te 200 mg/mL intramuscular oil RxNorm: 1886891 1 Milliliter(s) IM 2 x month 11/01/2018 11/16/2018 Inactive Adderall 30 mg tablet RxNorm: 326893 2 Tablet(s) PO daily 10/29/2018 11/27/2018 Inactive gabapentin 300 mg ca psule RxNorm: 208497 1 Capsule(s) PO BID m ay take TID 10/19/2018 12/15/2018 In active gabapentin 300 mg ca psule RxNorm: 816732 1 Capsule(s) PO BID m ay take TID 10/19/2018 10/18/2018 In active alprazolam 1 mg tablet RxNorm: 621025 1 Tablet(s) PO TID as needed 10/15/2018 04/19/2019 Inactive testosterone cypiona te 200 mg/mL intramuscular oil RxNorm: 215353 Milliliter(s) IM 09/28/2018 09/28/2018 In active pravastatin 40 mg ta blet RxNorm: 652953 TAKE ONE TABLET BY MO UTH EVERY NIGHT AT BEDTIME 09/27/2018 09/21/2019 Active Tamiflu 75 mg capsule RxNorm: 716178 1 Capsule(s) PO BID 09/24/2018 09/28/2018 Inactive Adderall 30 mg tablet RxNorm: 254652 2 Tablet(s) PO daily 09/20/2018 10/19/2018 Inactive hydrocodone 5 mg-fanny taminophen 325 mg tablet RxNorm: 450509 1 Tablet(s) PO TID AZ N 09/20/2018 11/01/2018 In active testosterone cypiona te 200 mg/mL intramuscular oil RxNorm: 358363 Milliliter(s) IM 09/16/2018 09/16/2018 In active testosterone cypiona te 200 mg/mL intramuscular oil RxNorm: 861047 1 Milliliter(s) IM 09/02/2018 09/02/2018 Inactive testosterone cypiona te 200 mg/mL intramuscular oil RxNorm: 774061 Milliliter(s) IM 08/19/2018 08/19/2018 In active Adderall 30 mg tablet RxNorm: 997083 2 Tablet(s) PO daily 08/18/2018 09/16/2018 Inactive tramadol 50 mg tablet RxNorm: 199044 1-2 Tablet(s) PO Q6 as needed 08/18/2018 01/12/2019 In active Dexilant 60 mg capsu le, delayed release RxNorm: 021323 1 Capsule(s) PO BID 08/17/2018 08/11/2019 Ac tive ketoconazole 2 % top ical cream RxNorm: 042964 1 Gram(s) TOP BID 08/17/2018 08/26/2018 Inactive Zorvolex 35 mg capsule RxNorm: 9618778 1 Capsule(s) PO TID as needed for pain 08/17/2018 08/16/2018 In active atenolol 50 mg tablet RxNorm: 522689 1 Tablet(s) PO BID 08/17/2018 12/28/2018 Inactive Zorvolex 35 mg capsule RxNorm: 4309235 1 Capsule(s) PO TID as needed for pain 08/17/2018 11/14/2018 In active ketoconazole 2 % top ical cream RxNorm: 711320 1 Gram(s) TOP BID 08/02/2018 08/11/2018 Inactive hydrocortisone 2.5 % topical cream RxNorm: 440968 1 Application TOP BID 07/21/2018 No Stop Date Active Adderall 30 mg tablet RxNorm: 978550 2 Tablet(s) PO daily 07/20/2018 08/17/2018 Inactive testosterone cypiona te 200 mg/mL intramuscular oil RxNorm: 042033 Milliliter(s) IM 07/15/2018 07/15/2018 In active alprazolam 1 mg tablet RxNorm: 540940 1 Tablet(s) PO TID as needed 07/12/2018 09/07/2018 Inactive hydrocodone 5 mg-fanny taminophen 325 mg tablet RxNorm: 399553 1 Tablet(s) PO TID AZ N 06/30/2018 09/19/2018 In active pravastatin 40 mg ta blet RxNorm: 478172 1 Tablet(s) PO QHS 06/18/2018 09/15/2018 Inactive Adderall 30 mg tablet RxNorm: 107675 2 Tablet(s) PO daily 06/18/2018 07/17/2018 Inactive testosterone cypiona te 200 mg/mL intramuscular oil RxNorm: 283370 Milliliter(s) IM 06/17/2018 06/17/2018 In active Voltaren 1 % topical gel RxNorm: 850561 APPLY TOPICALLY TWO T IMES A DAY 06/16/2018 07/21/2018 In active Vitamin D2 50,000 un it capsule RxNorm: 3580064 1 Capsule(s) PO QW 05/21/2018 No Stop Date Active Adderall 30 mg tablet RxNorm: 070437 2 Tablet(s) PO daily 05/21/2018 06/17/2018 Inactive testosterone cypiona te 200 mg/mL intramuscular oil RxNorm: 859457 Milliliter(s) IM 05/21/2018 05/21/2018 In active testosterone cypiona te 200 mg/mL intramuscular oil RxNorm: 5708149 1 Milliliter(s) IM monthly 05/20/2018 09/16/2018 Inactive testosterone cypiona te 200 mg/mL intramuscular oil RxNorm: 329411 1 Milliliter(s) IM monthly 05/20/2018 05/19/2018 Inactive hydrocodone 5 mg-fanny taminophen 325 mg tablet RxNorm: 942367 1 Tablet(s) PO TID AZ N 05/20/2018 06/29/2018 In active Vitamin D2 50,000 un it capsule RxNorm: 9634758 1 Capsule(s) PO QW 05/18/2018 05/20/2018 Inactive triamcinolone aceton destin 0.025 % topical cream RxNorm: 3517400 1 Application TOP BI D 05/13/2018 No Stop Date Active Dexilant 60 mg capsu le, delayed release RxNorm: 404843 1 Capsule(s) PO BID 05/13/2018 08/16/2018 In active Zorvolex 35 mg capsule RxNorm: 0132223 1 Capsule(s) PO TID as needed for pain 05/12/2018 08/09/2018 In active Voltaren 1 % topical gel RxNorm: 302729 1 Application TOP BID 05/12/2018 06/15/2018 Inactive acyclovir 400 mg tablet RxNorm: 462916 1 Tablet(s) PO TID as needed take at ons et of symptoms of cold sores x 5 days 05/10/2018 No Stop Date Active ProAir HFA 90 mcg/ac tuation aerosol inhaler RxNorm: 235686 1 Puff(s) INH QID as needed 05/10/2018 No Stop Date Active baclofen 20 mg tablet RxNorm: 571754 1 Tablet(s) PO TID as needed muscle spas ms 05/10/2018 06/08/2018 In active Singulair 10 mg tablet RxNorm: 372252 1 Tablet(s) PO daily 05/10/2018 08/07/2018 Inactive atenolol 50 mg tablet RxNorm: 402208 1 Tablet(s) PO BID 05/10/2018 08/07/2018 Inactive triamcinolone aceton destin 0.025 % topical cream RxNorm: 6366198 1 Application TOP BI D 05/10/2018 05/12/2018 In active paroxetine 20 mg tablet RxNorm: 9751107 2 Tablet(s) PO QHS 05/10/2018 04/19/2019 Inactive tramadol 50 mg tablet RxNorm: 177800 1 Tablet(s) PO TID as needed 05/10/2018 05/19/2018 Inactive Dexilant 60 mg capsu le, delayed release RxNorm: 746875 1 Capsule(s) PO daily 05/10/2018 05/12/2018 In active alprazolam 1 mg tablet RxNorm: 814470 1 Tablet(s) PO TID as needed 05/10/2018 08/06/2018 Inactive trazodone 100 mg tablet RxNorm: 491490 1 Tablet(s) PO QHS 05/10/2018 11/05/2018 Inactive cyclobenzaprine 10 m g tablet RxNorm: 157375 1 Tablet(s) PO TID as needed muscle spasms 05/07/2018 07/12/2018 Inactive trazodone 100 mg tablet RxNorm: 234790 1 Tablet(s) PO QHS 05/07/2018 05/09/2018 Inactive Adderall 30 mg tablet RxNorm: 478625 2 Tablet(s) PO daily 04/19/2018 05/18/2018 Inactive alprazolam 1 mg tablet RxNorm: 197783 1 Tablet(s) PO BID 04/19/2018 05/09/2018 Inactive Adderall 30 mg tablet RxNorm: 215440 2 Tablet(s) PO daily 03/26/2018 04/18/2018 Inactive paroxetine 20 mg tablet RxNorm: 7088829 2 Tablet(s) PO QHS 03/15/2018 05/09/2018 Inactive Adderall 30 mg tablet RxNorm: 556598 2 Tablet(s) PO daily 02/25/2018 03/25/2018 Inactive cyclobenzaprine 10 m g tablet RxNorm: 551775 1 Tablet(s) PO TID as needed muscle spasms 02/22/2018 05/06/2018 Inactive tramadol 50 mg tablet RxNorm: 954185 1 Tablet(s) PO TID as needed 02/22/2018 03/07/2018 Inactive tramadol 50 mg tablet RxNorm: 113581 1 Tablet(s) PO TID as needed 02/22/2018 02/21/2018 Inactive trazodone 100 mg tablet RxNorm: 492836 1 Tablet(s) PO QHS 02/03/2018 05/03/2018 Inactive trazodone 100 mg tablet RxNorm: 353797 1 Tablet(s) PO QHS 02/03/2018 02/02/2018 Inactive Adderall 30 mg tablet RxNorm: 081299 2 Tablet(s) PO daily 01/27/2018 02/18/2018 Inactive acyclovir 400 mg tablet RxNorm: 553606 1 Tablet(s) PO TID as needed take at ons et of symptoms of cold sores x 5 days 01/15/2018 05/09/2018 Inactive Bactrim DS 800 mg-16 0 mg tablet RxNorm: 696029 1 Tablet(s) PO BID 01/11/2018 01/17/2018 Inactive Bactrim DS 800 mg-16 0 mg tablet RxNorm: 069756 1 Tablet(s) PO BID 01/11/2018 01/10/2018 Inactive Dexilant 60 mg capsu le, delayed release RxNorm: 382270 1 Capsule(s) PO daily 12/23/2017 05/09/2018 In active Dexilant 60 mg capsu le, delayed release RxNorm: 453224 1 Capsule(s) PO daily 12/23/2017 12/22/2017 In active atenolol 50 mg tablet RxNorm: 973132 1 Tablet(s) PO BID 12/15/2017 05/09/2018 Inactive alprazolam 1 mg tablet RxNorm: 146304 1-1.5 Tablet(s) PO daily 12/15/2017 04/18/2018 Inactive ceftriaxone 500 mg s olution for injection RxNorm: 5764839 Inj 08/03/2015 08/03/2015 Inactive paroxetine 20 mg tablet RxNorm: 5496524 2 Tablet(s) PO QHS 08/01/2015 10/29/2015 Inactive pravastatin 40 mg ta blet RxNorm: 276771 1/2 Tablet(s) PO QHS 08/01/2015 12/14/2017 Inactive Trazadone 100mg 100 mg RxNorm: 1 PO daily 08/01/2015 11/27/2015 Inactive Trazadone 100mg 100 mg RxNorm: 1 PO daily 08/01/2015 05/04/2018 Inactive atenolol 50 mg tablet RxNorm: 810431 1 Tablet(s) PO daily 08/01/2015 10/29/2015 Inactive ibuprofen 800 mg tablet RxNorm: 962369 1 Tablet(s) PO BID -TID No Start Date Active Fish Oil 360 mg-1,20 0 mg capsule RxNorm: 590311 1 Capsule(s) PO BID No Start Date Active Zyrtec 10 mg tablet RxNorm: 9024187 1 Tablet(s) PO daily No Start Date Active pravastatin 40 mg ta blet RxNorm: 671726 1/2 Tablet(s) PO QHS No Start Date 07/31/2015 Inactive Benadryl Allergy 25 mg tablet RxNorm: 0969487 1 Tablet(s) PO daily No Start Date 07/19/2018 Inactive Adderall 30 mg tablet RxNorm: 867608 2 Tablet(s) PO daily No Start Date 01/26/2018 Inactive Aspirin Low Dose 81 mg tablet,delayed release RxNorm: 687933 1 Tablet(s) PO BID No Start Date 07/19/2018 Inactive Singulair 10 mg tablet RxNorm: 972178 1 Tablet(s) PO daily No Start Date 05/09/2018 Inactive cyclobenzaprine 10 m g tablet RxNorm: 908511 1 Tablet(s) PO TID as needed muscle spasms No Start Date 02/21/2018 Inactive Trazadone 100mg 100 mg RxNorm: 1 PO daily No Start Date 07/31/2015 Inactive clindamycin 1 %-arthur oyl peroxide 5 % topical gel RxNorm: 787868 TOP APPLY TO AFFECTED AREA(S) ON SERNA TWO TIMES A DAY No Start Date 11/16/2018 Inactive hydrocortisone 2.5 % topical cream RxNorm: 949356 1 Application TOP BID No Start Date 07/20/2018 Inactive alprazolam 1 mg tablet RxNorm: 888932 2 Tablet(s) PO daily No Start Date 12/14/2017 Inactive tramadol 50 mg tablet RxNorm: 590482 1-2 Tablet(s) PO Q6 as needed No Start Date 08/17/2018 Inactive Vitamin D2 50,000 un it capsule RxNorm: 3660436 1 Capsule(s) PO QW No Start Date 05/17/2018 Inactive pantoprazole 40 mg t ablet,delayed release RxNorm: 720613 1 Tablet(s) PO BID No Start Date 12/22/2017 Inactive atenolol 50 mg tablet RxNorm: 492457 1 Tablet(s) PO daily No Start Date 07/31/2015 Inactive paroxetine 20 mg tablet RxNorm: 530025 2 Tablet(s) PO QHS No Start Date 07/31/2015 Inactive Medication Administered Medication Codes Instruc tions Start Date Status testosterone cypionate 200 mg/mL intramuscular oil RxNorm: 3462670 1.25Milliliter 12/29/2018 No longer Active testosterone cypionate 200 mg/mL intramuscular oil RxNorm: 4813068 Milliliter 12/16/2018 No longer Active testosterone cypionate 200 mg/mL intramuscular oil RxNorm: 4164372 1Milliliter 11/15/2018 No longer Active testosterone cypionate 200 mg/mL intramuscular oil RxNorm: 003476 Milliliter 09/28/2018 No longer Active testosterone cypionate 200 mg/mL intramuscular oil RxNorm: 384705 Milliliter 09/16/2018 No longer Active testosterone cypionate 200 mg/mL intramuscular oil RxNorm: 563323 1Milliliter 09/02/2018 No longer Active testosterone cypionate 200 mg/mL intramuscular oil RxNorm: 711658 Milliliter 08/19/2018 No longer Active testosterone cypionate 200 mg/mL intramuscular oil RxNorm: 084497 Milliliter 07/15/2018 No longer Active testosterone cypionate 200 mg/mL intramuscular oil RxNorm: 614992 Milliliter 06/17/2018 No longer Active testosterone cypionate 200 mg/mL intramuscular oil RxNorm: 792266 Milliliter 05/21/2018 No longer Active ceftriaxone 500 mg solution for injection RxNorm: 2703177 08/03/2015 No longer A ctive Immunizations Vaccine [...] Code Result Date Comp. Metabolic Panel (14) 88473 GLUCOSE 117 mg/dL 12/17/2018 Comp. Metabolic Panel (14) 66481 BUN 17 mg/dL 12/17/2018 Comp. Metabolic Panel (14) 58405 CREATININE 0.99 mg/dL 12/17/2018 Comp. Metabolic Panel (14) 37711 SODIUM 137 mmol/L 12/17/2018 Comp. Metabolic Panel (14) 89766 POTASSIUM 4.6 mmol/L 12/17/2018 Comp. Metabolic Panel (14) 67453 CHLORIDE 102 mmol/L 12/17/2018 Comp. Metabolic Panel (14) 41409 CARBON DIOXIDE 21 mmol/L 12/17/2018 Comp. Metabolic Panel (14) 21383 CALCIUM 9.4 mg/dL 12/17/2018 Comp. Metabolic Panel (14) 63132 TOTAL PROTEIN 7.5 g/dL 12/17/2018 Comp. Metabolic Panel (14) 52035 ALBUMIN 5.1 g/dL 12/17/2018 Comp. Metabolic Panel (14) 29424 ALKALINE PHOSPHATASE 79 U/L 12/17/2018 Comp. Metabolic Panel (14) 40747 TOTAL BILIRUBIN 0.5 mg/dL 12/17/2018 Comp. Metabolic Panel (14) 76649 SGOT (AST) 34 U/L 12/17/2018 Comp. Metabolic Panel (14) 84601 SGPT (ALT) 40 U/L 12/17/2018 Comp. Metabolic Panel (14) 55715 eGFR (mL/min/1.73m2) 115 12/17/2018 Comp. Metabolic Panel (14) 39196 INTERPRETATION 12/17/2018 Testosterone Serum 564311 TESTOSTERONE 96.8 ng/dL 12/17/2018 Cbc With Differential/Platelet 46759 WBC 5.61 thou/uL 9 Cbc With Differential/Platelet 87375 RBC 5.53 mil/uL 12/17/2018 Cbc With Differential/Platelet 64906 HEMOGLOBIN 15.4 g/dL 12/17/2018 Cbc With Differential/Platelet 89806 HEMATOCRIT 48.1 % 12/17/2018 Cbc With Differential/Platelet 51986 MCV 87.0 fL 12/17/2018 Cbc With Differential/Platelet 67594 MCH 27.8 pg 12/17/2018 Cbc With Differential/Platelet 36693 MCHC 32.0 g/dL 12/17/2018 Cbc With Differential/Platelet 89308 RDW-CV 13.9 % 12/17/2018 Cbc With Differential/Platelet 92551 PLATELET COUNT 294 thou/uL 12/17/2018 Cbc With Differential/Platelet 46400 NEUTROPHIL % 71.2 % 12/17/2018 Cbc With Differential/Platelet 56756 LYMPHOCYTE % 22.2 % 12/17/2018 Cbc With Differential/Platelet 97563 MONOCYTE % 5.4 % 12/17/2018 Cbc With Differential/Platelet 49184 EOS % 0.9 % 12/17/2018 Cbc With Differential/Platelet 63573 BASO % 0.4 % 12/17/2018 Cbc With Differential/Platelet 51315 NEUTROPHIL ABS # 3.99 thou/uL 12/17/2018 Cbc With Differential/Platelet 81515 LYMPH ABS # 1.25 thou/uL 12/17/2018 Cbc With Differential/Platelet 11799 MONOCYTE ABS # 0.30 thou/uL 12/17/2018 Cbc With Differential/Platelet 12808 EOS ABS # 0.05 thou/uL 9 Cbc With Differential/Platelet 86124 BASO ABS # 0.02 thou/uL 12/17/2018 Lipid Panel 54382 CHOLES TEROL 227 mg/dL 12/17/2018 Lipid Panel 81235 TRIGLY CERIDES 229 mg/dL 12/17/2018 Lipid Panel 91981 HDL 41 mg/dL 12/17/2018 Lipid Panel 47629 CHOLES TEROL/HDL 5.54 12/17/2018 Lipid Panel 96888 LDL (C ALCULATED) 140 mg/dL 12/17/2018 Lipid Panel 06543 LDL/HDL 3.41 12/17/2018 Lipid Panel 43724 INTERP RETATION 12/17/2018 Tsh 210544 TSH 1.190 uIU/mL 12/17/2018 Testosterone Serum 116779 TESTOSTERONE 44.1 ng/dL 08/18/2018 Hemoglobin 751834 WBC 7.62 thou/uL 08/17/2018 Hemoglobin 553477 RBC 5.23 mil/uL 08/17/2018 Hemoglobin 325212 HEMOGL OBIN 15.0 g/dL 08/17/2018 Hemoglobin 358488 HEMATO CRIT 45.0 % 08/17/2018 Hemoglobin 278799 MCV 86.0 fL 08/17/2018 Hemoglobin 737174 MCH 28.7 pg 08/17/2018 Hemoglobin 841109 MCHC 33.3 g/dL 08/17/2018 Hemoglobin 389635 RDW-CV 12.9 % 08/17/2018 Hemoglobin 719194 PLATEL ET COUNT 313 thou/uL 08/17/2018 Hematocrit 229352 WBC 7.62 thou/uL 08/17/2018 Hematocrit 187329 RBC 5.23 mil/uL 08/17/2018 Hematocrit 221534 HEMOGL OBIN 15.0 g/dL 08/17/2018 Hematocrit 783149 HEMATO CRIT 45.0 % 08/17/2018 Hematocrit 910097 MCV 86.0 fL 08/17/2018 Hematocrit MCH 28.7 pg 08/17/2018 Hematocrit MCHC 33.3 g/dL 08/17/2018 Hematocrit RDW-CV 12.9 % 08/17/2018 Hematocrit PLATEL ET COUNT 313 thou/uL 08/17/2018 Culture Mrsa 737646 MRSA CULTURE SEE NOTES 06/21/2018 Comp. Metabolic Panel (14) 71590 GLUCOSE 101 mg/dL 06/18/2018 Comp. Metabolic Panel (14) 42088 BUN 18 mg/dL 06/18/2018 Comp. Metabolic Panel (14) 19552 CREATININE 0.99 mg/dL 06/18/2018 Comp. Metabolic Panel (14) 31485 SODIUM 141 mmol/L 06/18/2018 Comp. Metabolic Panel (14) 84772 POTASSIUM 4.3 mmol/L 06/18/2018 Comp. Metabolic Panel (14) 48103 CHLORIDE 103 mmol/L 06/18/2018 Comp. Metabolic Panel (14) 44329 CARBON DIOXIDE 23 mmol/L 06/18/2018 Comp. Metabolic Panel (14) 35601 CALCIUM 9.8 mg/dL 06/18/2018 Comp. Metabolic Panel (14) 34006 TOTAL PROTEIN 7.1 g/dL 06/18/2018 Comp. Metabolic Panel (14) 49510 ALBUMIN 5.2 g/dL 06/18/2018 Comp. Metabolic Panel (14) 52332 ALKALINE PHOSPHATASE 65 U/L 06/18/2018 Comp. Metabolic Panel (14) 53516 TOTAL BILIRUBIN 0.6 mg/dL 06/18/2018 Comp. Metabolic Panel (14) 26568 SGOT (AST) 21 U/L 06/18/2018 Comp. Metabolic Panel (14) 57565 SGPT (ALT) 24 U/L 06/18/2018 Comp. Metabolic Panel (14) 50536 eGFR (mL/min/1.73m2) 115 06/18/2018 Comp. Metabolic Panel (14) 75087 INTERPRETATION 06/18/2018 Cbc With Differential/Platelet 09931 WBC 4.55 thou/uL 8 Cbc With Differential/Platelet 91063 RBC 5.13 mil/uL 06/18/2018 Cbc With Differential/Platelet 58451 HEMOGLOBIN 14.4 g/dL 06/18/2018 Cbc With Differential/Platelet 74061 HEMATOCRIT 44.1 % 06/18/2018 Cbc With Differential/Platelet 74529 MCV 85.9 fL 06/18/2018 Cbc With Differential/Platelet 98550 MCH 28.1 pg 06/18/2018 Cbc With Differential/Platelet 98896 MCHC 32.7 g/dL 06/18/2018 Cbc With Differential/Platelet 56039 RDW-CV 13.4 % 06/18/2018 Cbc With Differential/Platelet 47257 PLATELET COUNT 287 thou/uL 06/18/2018 Cbc With Differential/Platelet 90702 NEUTROPHIL % 53.9 % 06/18/2018 Cbc With Differential/Platelet 23047 LYMPHOCYTE % 36.1 % 06/18/2018 Cbc With Differential/Platelet 64718 MONOCYTE % 7.4 % 06/18/2018 Cbc With Differential/Platelet 01587 EOS % 1.9 % 06/18/2018 Cbc With Differential/Platelet 77887 BASO % 0.8 % 06/18/2018 Cbc With Differential/Platelet 06808 NEUTROPHIL ABS # 2.45 thou/uL 06/18/2018 Cbc With Differential/Platelet 50933 LYMPH ABS # 1.64 thou/uL 06/18/2018 Cbc With Differential/Platelet 39646 MONOCYTE ABS # 0.34 thou/uL 06/18/2018 Cbc With Differential/Platelet 94376 EOS ABS # 0.09 thou/uL 8 Cbc With Differential/Platelet 51920 BASO ABS # 0.04 thou/uL 06/18/2018 Review [...] spine 04/20/2019 None Full Exam - General 1995 Musculoskeletal head and neck Overall: head atraumatic [...] Procedure Codes Date THER/PROPH/DIAG INJ SC/IM CPT-4: 04436 12/29/2018 THER/PROPH/DIAG INJ SC/IM CPT-4: 58332 12/16/2018 THER/PROPH/DIAG INJ SC/IM CPT-4: 54587 11/15/2018 THER/PROPH/DIAG INJ SC/IM CPT-4: 77663 09/28/2018 THER/PROPH/DIAG INJ SC/IM CPT-4: 25405 09/16/2018 THER/PROPH/DIAG INJ SC/IM CPT-4: 30188 09/02/2018 THER/PROPH/DIAG INJ SC/IM CPT-4: 19459 08/19/2018 IMMUNIZATION ADMIN CPT- 4: 53516 08/02/2018 FLU VAC NO PRSV 4 VA L 3 YRS+ CPT-4: 53634 08/02/2018 THER/PROPH/DIAG INJ SC/IM CPT-4: 71585 07/15/2018 THER/PROPH/DIAG INJ SC/IM CPT-4: 20552 06/17/2018 THER/PROPH/DIAG INJ SC/IM CPT-4: 13862 05/21/2018 THER/PROPH/DIAG INJ SC/IM CPT-4: 52499 08/03/2015 ROCEPHIN, PER 250 MG CPT-4: J0696 08/03/2015 Vital Signs Date Vital 05/05/2019 Heigh t: Weight: 04/20/2019 Blood Pressure 1: 160/84 Code: 8480-6 BMI: 34.0 Code: 34594-7 Heart Rate 1: 82 bpm Height: 5'7" SpO2: 97% Weight: 216 lbs 13 o z 12/29/2018 Blood Pressure 1: 144/90 Code: 8480-6 BMI: 34.8 Code: 58327-1 Heart Rate 1: 91 bpm Height: 5'7" SpO2: 98% Weight: 222 lbs 12/20/2018 Blood Pressure 1: 124/76 Code: 8480-6 BMI: 35.4 Code: 57141-6 Heart Rate 1: 79 bpm Height: 5'7" SpO2: 99% Weight: 226 lbs 12/16/2018 Blood Pressure 1: 160/90 Code: 8480-6 BMI: 35.4 Code: 64951-9 Heart Rate 1: 90 bpm Height: 5'7" SpO2: 95% Weight: 226 lbs 11/01/2018 Blood Pressure 1: 146/82 Code: 8480-6 BMI: 36.0 Code: 36604-2 Heart Rate 1: 87 bpm Height: 5'7" SpO2: 98% Weight: 230 lbs 09/24/2018 Blood Pressure 1: 140/82 Code: 8480-6 BMI: 36.0 Code: 78814-9 Heart Rate 1: 86 bpm Height: 5'7" SpO2: 98% Temperature: 37.1 (C ) / 98.7 (F) Weight: 230 lbs 08/16/2018 Blood Pressure 1: 148/82 Code: 8480-6 Blood Pressure 2: 157/92 Code: 8480-6 BMI: 35.9 Code: 25760-3 Heart Rate 1: 72 bpm Height: 5'7" SpO2: 96% Weight: 229 lbs 08/02/2018 Blood Pressure 1: 142/86 Code: 8480-6 BMI: 35.2 Code: 61409-0 Heart Rate 1: 101 bpm Height: 5'7" SpO2: 97% Weight: 225 lbs 05/31/2018 Blood Pressure 1: 134/82 Code: 8480-6 BMI: 35.4 Code: 91129-7 Heart Rate 1: 91 bpm Height: 5'7" SpO2: 96% Weight: 226 lbs 05/20/2018 Blood Pressure 1: 160/100 Code: 8480-6 BMI: 35.2 Code: 05908-8 Heart Rate 1: 89 bpm Height: 5'7" SpO2: 98% Weight: 225 lbs 05/10/2018 Blood Pressure 1: 124/70 Code: 8480-6 BMI: 35.1 Code: 76534-7 Heart Rate 1: 93 bpm Height: 5'7" SpO2: 99% Weight: 224 lbs 01/15/2018 Blood Pressure 1: 142/92 Code: 8480-6 BMI: 36.3 Code: 19742-4 Heart Rate 1: 77 bpm Height: 5'7" SpO2: 98% Weight: 232 lbs 12/15/2017 Blood Pressure 1: 156/98 Code: 8480-6 BMI: 36.2 Code: 62361-5 Heart Rate 1: 87 bpm Height: 5'7" [...] eye 01/15/2018 None vision change Quality ac shad 01/15/2018 None vision change Quality lo ss [...] vision 12/15/2017 None vision change Quality ac shad 12/15/2017 None vision change Onset and Resolution sudden in onset 12/15/2017 None vision change Onset of Symptom 3.5 weeks ago 12/15/2017 None vision change Limitation on Activities severely limits vision 12/15/2017 None vision change Triggers n o known associated factors 12/15/2017 None Advance Directives No Advance Directive data Encounters Encounter Performer Loca tion Codes Date EST. PATIENT, LEVEL IV Diagnosis: Cervicalgia[ICD10: M54.2] Diagnosis: Other fatigue[ICD10: R53.83] Diagnosis: Essential (primary) hypertension[ICD10: I10] Diagnosis: Major depressive disorder, recurrent, moderate[ICD10: F33.1] Sonia Gonzalez MD, [facility] CPT-4: 79331 05/05/2019 ([id number]) [id number] EST. P ATIENT, LEVEL III Diagnosis: Essential (primary) hypertension[ICD10: I10] Diagnosis: Major depressive disorder, recurrent, moderate[ICD10: F33.1] Diagnosis: Dysphagia, pharyngeal phase[ICD10: R13.13] Radha Gonzalez MD, [facility] CPT-4: 63976 04/20/2019 [id number] 86470 EST. 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 PATIENT, LEVEL III Diagnosis: Pain in right arm[ICD10: M79.601] Sonia Gonzalez MD, [facility] CPT-4: 02060 12/20/2018 ([id number]) 21939 EST. 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 PATIENT, LEVEL III Diagnosis: Acute upper respiratory infection, unspecified[ICD10: J06.9] Diagnosis: Other allergic rhinitis[ICD10: J30.89] Sonia Gonzalez MD, [facility] CPT-4: 69561 09/24/2018 ([id number]) 82242 EST. 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 P ATIENT, LEVEL IV Diagnosis: Essential (primary) hypertension[ICD10: I10] Diagnosis: Cervicalgia[ICD10: M54.2] Radha Gonzalez MD, [facility] CPT-4: 86760 05/31/2018 ([id number]) 99622 EST. 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 05/05/2019 Appointment: Sonia Potter WPtel: [phone] [facility] (30 min) Complex 05/05/2019 [facility]ment: [phone] (15 min) Moderate 05/05/2019 Patient Education: Patient [...] daily. 04/20/2019 Appointment: [phone] (15 min) Moderate 04/20/2019 Patient Education: Patient [...] testosterone injections. 12/29/2018 Appointment: Radha Gonzalez WPtel: [phone] [facility] (15 min) Moderate 12/29/2018 Patient Education: Patient Medication Summary Completed 12/29/2018 Patient Education: .Cervicalgia Neck Pain Completed 12/29/2018 Patient Education: Patient Medication Summary Completed 12/21/2018 Care Plan: %Hba1C add to blood from 12/17 LOINC : 40912-5 Pending 12/21/2018 Visit Plan: Right arm pain - dayna deformity noted - will refer to ortho - The pt is to use prn antiinflammatories to manage acute pain. The patient is to call the office if the pain is worsening or does not improve. 12/20/2018 Appointment: Sonia Potter WPtel: [phone] [facility] (15 min) Moderate 12/20/2018 Patient Education: [...] with testosterone. 12/16/2018 App[facility]ment: [phone] [place] (15 min) Moderate 12/16/2018 Patient Education: [...] needed. 11/01/2018 Appointment: Radha Gonzalez WPtel: [phone] [facility] (15 min) Moderate 11/01/2018 Patient Education: [...] spray. 09/24/2018 Appointment: Sonia Potter WPtel: [phone] [facility] (15 min) Moderate 09/24/2018 Patient Education: [...] at home. Multiple symptoms - referral to [facility] - appt in September 30, 2018. 08/16/2018 Appointment: [phone] [facility] (15 min) Moderate 08/16/2018 Patient Education: Patient [...] at home. Multiple symptoms - referral to [facility] - rashes, hypogonadism, optic neuritis - all points to possible autoimmune syndrome. Spinal stenosis - of thoracic region - pt to talk to Dr. Dunaway about referral to a different specialist for his mid- back. Hypogonadism - continue with testosterone. Flu shot given today in clinic. 08/02/2018 Appointment: [phone] [facility] (15 min) Moderate 08/02/2018 Patient Education: Patient Medication Summary Completed 08/02/2018 Care Plan: Referral Order SNOMED-CT : 244455622 Pending 08/02/2018 Appointment: Injection 07/15/2018 Patient Education: [...] home. Cervical spine stenosis - referral to [facility]. I have also recommended a Referral to Dr. Dunaway. I have called and talked to Dr. Dunaway - he looked at the pt's imaging and agrees that getting the pt in to be seen soon would be a preferred option. 05/31/2018 Appointment: [phone] [facility] [place] (15 min) Moderate 05/31/2018 Patient Education: Patient Medication Summary Completed 05/31/2018 Care Plan: Referral Order SNOMED-CT : 117168701 Pending 05/31/2018 Care Plan: Referral Order SNOMED-CT : 165632868 Pending 05/31/2018 Appointment: Injection 05/21/2018 Patient Education: Patient Medication Summary Completed 05/21/2018 Care Plan: Referral Order SNOMED-CT : 939191681 Pending 05/21/2018 Visit Plan: Cervical and thoracic s tenosis with spinal cord compression -refer for appt with Dr Marr -rx for hydrocodone for pain-start gabapentin at bedtime Soft tissue lesion-left chest-schedule CTfor further evaluation HTN-elevated today-hold adderall-monitor blood pressure 05/20/2018 Appointment: Hannah Simons WPtel: [phone] [place] (15 min) Moderate 05/20/2018 Patient [...] order this. 05/10/2018 Appointment: Sonia Potter WPtel: [facility] [place] (15 min) Moderate 05/10/2018 Patient Education: Patient Medication Summary Completed 05/10/2018 Visit Plan: Sleep apnea - rx for cp ap - actually autopap was recommended and pt given rx today. HTN - referral to dr. kapoor - pt needs stress testing. 01/15/2018 Appointment: Radha Gonzalez WPtel: [facility] (15 min) Moderate 01/15/2018 Patient Education: Patient Medication Summary Completed 01/15/2018 Care Plan: Referral Order SNOMED-CT : 987222976 Pending 01/15/2018 Visit Plan: Well Adult - [...] one month. 12/15/2017 Appointment: Radha Gonzalez WPtel: [facility] New Patient 12/15/2017 Patient Education: Patient Medication Summary Completed 12/15/2017 Care Plan: CHEST X-RAY 2VW FRONTAL&LATL LOINC : 35173-9 Pending 12/15/2017 Appointment: [phone] [facility] (15 min) Moderate 12/08/2017 Appointment: (S) New [...] Ordering Provider 08/03 Referral info faxed to [place]. Patient informed to be expecting a call from them with appt info Appointment Requested Referral: External, Ordering Provider Referral Appointment Requested Referral: External, Ordering Provider I called today; they will call him to schedule. Completed Referral: Armani Dunaway Referral Appointment Requested Referral: Mayte Kapoor Referral Appointment [facility]ed Ref[phone] [facility] Referral Appointment Requested Referral: External, Ordering [...] at home. Multiple symptoms - referral to [facility] - rashes, hypogonadism, optic neuritis - all [...] at home. Multiple symptoms - referral to [facility] - appt in September 30, 2018. . [...] home. Cervical spine stenosis - [facility]. I have also recommended a Referral to Dr. Dunaway. I have called and talked to Dr. Dunaway - he looked at the pt's imaging and agrees that getting the pt in to be seen soon would be a preferred option.
--- OUTSIDE RECORDS SUMMARY | 2020-04-28 00:29 | XMS REPORT | CCD ---
Author Author Nilton Gonzalez Organization [facility] Address [address] [place] [address] Phone Care Team Providers Care Chart Writer Name Role Phone PP Unavailable CCM Unavailable Summary Purpose Interface Exchange Family history Brother Diagnosis Age At Onset Alcoholism Unknown Father Diagnosis Age At Onset Hypercholesterolemia Unknown Social History Social History Element Codes Description Effective Dates Employment Unknown Curre ntly unemployed 04/20/2019 Marital status Unknown S chanda 12/15/2017 Number of children Unknown 1 12/15/[address]: 517424994 Never smoker 12/15/[address]: 906262 Currently drinks alcohol <1 per week 12/15/2017 [...] Date Stop Date Sta tus Fill Instructions paroxetine 40 mg tablet RxNorm: 0636302 TAKE ONE TABLET BY MOUTH DAILY 05/16/2019 11/11/2019 Ac tive prazosin 1 mg capsule RxNorm: 057725 1 Capsule(s) PO daily 05/05/2019 06/03/2019 Active paroxetine 40 mg tablet RxNorm: 2487608 1 Tablet(s) PO daily 04/20/2019 05/15/2019 Inactive Adderall 30 mg tablet RxNorm: 209662 2 Tablet(s) PO daily 04/19/2019 05/18/2019 Active alprazolam 1 mg tablet RxNorm: 596238 1 Tablet(s) PO TID as needed 04/13/2019 06/11/2019 Active hydrocodone 5 mg-fanny taminophen 325 mg tablet RxNorm: 046508 1-2 Tablet(s) PO Q6 a s needed 03/21/2019 No Stop Date Active Adderall 30 mg tablet RxNorm: 753513 2 Tablet(s) PO daily 03/21/2019 04/14/2019 Inactive tramadol 50 mg tablet RxNorm: 175276 1-2 Tablet(s) PO Q6 as needed 03/14/2019 No Stop Date Active hydrocodone 5 mg-fanny taminophen 325 mg tablet RxNorm: 434074 1-2 Tablet(s) PO Q6 a s needed 02/23/2019 03/20/2019 Inactive Adderall 30 mg tablet RxNorm: 021675 2 Tablet(s) PO daily 02/23/2019 03/20/2019 Inactive Adderall 30 mg tablet RxNorm: 076126 2 Tablet(s) PO daily 01/24/2019 02/22/2019 Inactive ketoconazole 2 % top ical cream RxNorm: 649217 APPLY ONE GRAM TOPICA LLY TWICE A DAY 01/12/2019 01/26/2019 In active tramadol 50 mg tablet RxNorm: 089192 1-2 Tablet(s) PO Q6 as needed 01/11/2019 03/13/2019 In active atenolol 50 mg tablet RxNorm: 436691 1.5 Tablet(s) PO BID 12/29/2018 12/23/2019 Active hydrocodone 5 mg-fanny taminophen 325 mg tablet RxNorm: 504097 1-2 Tablet(s) PO Q6 a s needed 12/29/2018 02/22/2019 Inactive Adderall 30 mg tablet RxNorm: 440173 2 Tablet(s) PO daily 12/29/2018 01/23/2019 Inactive hydrocodone 5 mg-fanny taminophen 325 mg tablet RxNorm: 555757 1-2 Tablet(s) PO Q6 a s needed 12/29/2018 12/28/2018 Inactive testosterone cypiona te 200 mg/mL intramuscular oil RxNorm: 6096891 1.25 Milliliter(s) IM 12/29/2018 12/29/2018 Inactive hydrocodone 5 mg-fanny taminophen 325 mg tablet RxNorm: 940833 1 Tablet(s) PO TID IA N 12/28/2018 12/28/2018 In active testosterone cypiona te 200 mg/mL intramuscular oil RxNorm: 7917736 1.25 Milliliter(s) IM 2 x month 12/22/2018 04/12/2019 Inactive gabapentin 300 mg ca psule RxNorm: 133780 1 Capsule(s) PO QID 12/16/2018 12/10/2019 Active testosterone cypiona te 200 mg/mL intramuscular oil RxNorm: 3142186 Milliliter(s) IM 12/16/2018 12/16/2018 In active Voltaren 1 % topical gel RxNorm: 281921 2 Gram(s) APPLY TOPIC ALLY four TIMES A DAY 12/16/2018 01/20/2019 In active trazodone 100 mg tablet RxNorm: 857161 TAKE ONE TABLET BY MOUTH EVERY NIGHT AT BEDTIME 12/07/2018 06/04/2019 Active hydrocodone 5 mg-fanny taminophen 325 mg tablet RxNorm: 103473 1 Tablet(s) PO TID IA N 11/29/2018 12/27/2018 In active Adderall 30 mg tablet RxNorm: 773047 2 Tablet(s) PO daily 11/29/2018 12/28/2018 Inactive clindamycin 1 %-arthur oyl peroxide 5 % topical gel RxNorm: 142383 TOP APPLY TO AFFECTED AREA(S) ON SERNA TWO TIMES A DAY 11/17/2018 No Stop Date Active testosterone cypiona te 200 mg/mL intramuscular oil RxNorm: 3148607 1 Milliliter(s) IM 2 x month 11/17/2018 12/21/2018 Inactive Zorvolex 35 mg capsule RxNorm: 0744075 1 Capsule(s) PO TID as needed for pain 11/15/2018 05/13/2019 In active ketoconazole 2 % top ical cream RxNorm: 025918 APPLY ONE GRAM TOPICA LLY TWICE A DAY 11/15/2018 11/29/2018 In active testosterone cypiona te 200 mg/mL intramuscular oil RxNorm: 0198350 1 Milliliter(s) IM 11/15/2018 11/14/2018 Inactive hydrocodone 5 mg-fanny taminophen 325 mg tablet RxNorm: 125291 1 Tablet(s) PO TID IA N 11/02/2018 11/28/2018 In active Singulair 10 mg tablet RxNorm: 245156 1 Tablet(s) PO daily 11/01/2018 07/28/2019 Active testosterone cypiona te 200 mg/mL intramuscular oil RxNorm: 3284507 1 Milliliter(s) IM 2 x month 11/01/2018 11/16/2018 Inactive Adderall 30 mg tablet RxNorm: 624476 2 Tablet(s) PO daily 10/29/2018 11/27/2018 Inactive gabapentin 300 mg ca psule RxNorm: 942311 1 Capsule(s) PO BID m ay take TID 10/19/2018 12/15/2018 In active gabapentin 300 mg ca psule RxNorm: 014032 1 Capsule(s) PO BID m ay take TID 10/19/2018 10/18/2018 In active alprazolam 1 mg tablet RxNorm: 019923 1 Tablet(s) PO TID as needed 10/15/2018 04/19/2019 Inactive testosterone cypiona te 200 mg/mL intramuscular oil RxNorm: 827766 Milliliter(s) IM 09/28/2018 09/28/2018 In active pravastatin 40 mg ta blet RxNorm: 314293 TAKE ONE TABLET BY [facility] EVERY NIGHT AT BEDTIME 09/27/2018 09/21/2019 Active Tamiflu 75 mg capsule RxNorm: 425686 1 Capsule(s) PO BID 09/24/2018 09/28/2018 Inactive Adderall 30 mg tablet RxNorm: 242824 2 Tablet(s) PO daily 09/20/2018 10/19/2018 Inactive hydrocodone 5 mg-fanny taminophen 325 mg tablet RxNorm: 543415 1 Tablet(s) PO TID IA N 09/20/2018 11/01/2018 In active testosterone cypiona te 200 mg/mL intramuscular oil RxNorm: 202413 Milliliter(s) IM 09/16/2018 09/16/2018 In active testosterone cypiona te 200 mg/mL intramuscular oil RxNorm: 734631 1 Milliliter(s) IM 09/02/2018 09/02/2018 Inactive testosterone cypiona te 200 mg/mL intramuscular oil RxNorm: 289642 Milliliter(s) IM 08/19/2018 08/19/2018 In active Adderall 30 mg tablet RxNorm: 284437 2 Tablet(s) PO daily 08/18/2018 09/16/2018 Inactive tramadol 50 mg tablet RxNorm: 982137 1-2 Tablet(s) PO Q6 as needed 08/18/2018 01/12/2019 In active Dexilant 60 mg capsu le, delayed release RxNorm: 949206 1 Capsule(s) PO BID 08/17/2018 08/11/2019 Ac tive ketoconazole 2 % top ical cream RxNorm: 442171 1 Gram(s) TOP BID 08/17/2018 08/26/2018 Inactive Zorvolex 35 mg capsule RxNorm: 7912561 1 Capsule(s) PO TID as needed for pain 08/17/2018 08/16/2018 In active atenolol 50 mg tablet RxNorm: 925388 1 Tablet(s) PO BID 08/17/2018 12/28/2018 Inactive Zorvolex 35 mg capsule RxNorm: 0195205 1 Capsule(s) PO TID as needed for pain 08/17/2018 11/14/2018 In active ketoconazole 2 % top ical cream RxNorm: 461453 1 Gram(s) TOP BID 08/02/2018 08/11/2018 Inactive hydrocortisone 2.5 % topical cream RxNorm: 666938 1 Application TOP BID 07/21/2018 No Stop Date Active Adderall 30 mg tablet RxNorm: 928412 2 Tablet(s) PO daily 07/20/2018 08/17/2018 Inactive testosterone cypiona te 200 mg/mL intramuscular oil RxNorm: 071206 Milliliter(s) IM 07/15/2018 07/15/2018 In active alprazolam 1 mg tablet RxNorm: 796126 1 Tablet(s) PO TID as needed 07/12/2018 09/07/2018 Inactive hydrocodone 5 mg-fanny taminophen 325 mg tablet RxNorm: 016208 1 Tablet(s) PO TID IA N 06/30/2018 09/19/2018 In active pravastatin 40 mg ta blet RxNorm: 177937 1 Tablet(s) PO QHS 06/18/2018 09/15/2018 Inactive Adderall 30 mg tablet RxNorm: 097788 2 Tablet(s) PO daily 06/18/2018 07/17/2018 Inactive testosterone cypiona te 200 mg/mL intramuscular oil RxNorm: 335956 Milliliter(s) IM 06/17/2018 06/17/2018 In active Voltaren 1 % topical gel RxNorm: 699667 APPLY TOPICALLY TWO T IMES A DAY 06/16/2018 07/21/2018 In active Vitamin D2 50,000 un it capsule RxNorm: 4326114 1 Capsule(s) PO QW 05/21/2018 No Stop Date Active Adderall 30 mg tablet RxNorm: 133758 2 Tablet(s) PO daily 05/21/2018 06/17/2018 Inactive testosterone cypiona te 200 mg/mL intramuscular oil RxNorm: 102737 Milliliter(s) IM 05/21/2018 05/21/2018 In active testosterone cypiona te 200 mg/mL intramuscular oil RxNorm: 9270600 1 Milliliter(s) IM monthly 05/20/2018 09/16/2018 Inactive testosterone cypiona te 200 mg/mL intramuscular oil RxNorm: 073250 1 Milliliter(s) IM monthly 05/20/2018 05/19/2018 Inactive hydrocodone 5 mg-fanny taminophen 325 mg tablet RxNorm: 496071 1 Tablet(s) PO TID IA N 05/20/2018 06/29/2018 In active Vitamin D2 50,000 un it capsule RxNorm: 5662201 1 Capsule(s) PO QW 05/18/2018 05/20/2018 Inactive triamcinolone aceton destin 0.025 % topical cream RxNorm: 6147683 1 Application TOP BI D 05/13/2018 No Stop Date Active Dexilant 60 mg capsu le, delayed release RxNorm: 549540 1 Capsule(s) PO BID 05/13/2018 08/16/2018 In active Zorvolex 35 mg capsule RxNorm: 3824180 1 Capsule(s) PO TID as needed for pain 05/12/2018 08/09/2018 In active Voltaren 1 % topical gel RxNorm: 478449 1 Application TOP BID 05/12/2018 06/15/2018 Inactive acyclovir 400 mg tablet RxNorm: 141846 1 Tablet(s) PO TID as needed take at ons et of symptoms of cold sores x 5 days 05/10/2018 No Stop Date Active ProAir HFA 90 mcg/ac tuation aerosol inhaler RxNorm: 701198 1 Puff(s) INH QID as needed 05/10/2018 No Stop Date Active baclofen 20 mg tablet RxNorm: 517544 1 Tablet(s) PO TID as needed muscle spas ms 05/10/2018 06/08/2018 In active Singulair 10 mg tablet RxNorm: 824123 1 Tablet(s) PO daily 05/10/2018 08/07/2018 Inactive atenolol 50 mg tablet RxNorm: 883147 1 Tablet(s) PO BID 05/10/2018 08/07/2018 Inactive triamcinolone aceton destin 0.025 % topical cream RxNorm: 0813263 1 Application TOP BI D 05/10/2018 05/12/2018 In active paroxetine 20 mg tablet RxNorm: 4443751 2 Tablet(s) PO QHS 05/10/2018 04/19/2019 Inactive tramadol 50 mg tablet RxNorm: 070215 1 Tablet(s) PO TID as needed 05/10/2018 05/19/2018 Inactive Dexilant 60 mg capsu le, delayed release RxNorm: 054959 1 Capsule(s) PO daily 05/10/2018 05/12/2018 In active alprazolam 1 mg tablet RxNorm: 392044 1 Tablet(s) PO TID as needed 05/10/2018 08/06/2018 Inactive trazodone 100 mg tablet RxNorm: 715301 1 Tablet(s) PO QHS 05/10/2018 11/05/2018 Inactive cyclobenzaprine 10 m g tablet RxNorm: 804783 1 Tablet(s) PO TID as needed muscle spasms 05/07/2018 07/12/2018 Inactive trazodone 100 mg tablet RxNorm: 668120 1 Tablet(s) PO QHS 05/07/2018 05/09/2018 Inactive Adderall 30 mg tablet RxNorm: 301974 2 Tablet(s) PO daily 04/19/2018 05/18/2018 Inactive alprazolam 1 mg tablet RxNorm: 675829 1 Tablet(s) PO BID 04/19/2018 05/09/2018 Inactive Adderall 30 mg tablet RxNorm: 708346 2 Tablet(s) PO daily 03/26/2018 04/18/2018 Inactive paroxetine 20 mg tablet RxNorm: 9531288 2 Tablet(s) PO QHS 03/15/2018 05/09/2018 Inactive Adderall 30 mg tablet RxNorm: 334027 2 Tablet(s) PO daily 02/25/2018 03/25/2018 Inactive cyclobenzaprine 10 m g tablet RxNorm: 592579 1 Tablet(s) PO TID as needed muscle spasms 02/22/2018 05/06/2018 Inactive tramadol 50 mg tablet RxNorm: 365533 1 Tablet(s) PO TID as needed 02/22/2018 03/07/2018 Inactive tramadol 50 mg tablet RxNorm: 703710 1 Tablet(s) PO TID as needed 02/22/2018 02/21/2018 Inactive trazodone 100 mg tablet RxNorm: 657234 1 Tablet(s) PO QHS 02/03/2018 05/03/2018 Inactive trazodone 100 mg tablet RxNorm: 582572 1 Tablet(s) PO QHS 02/03/2018 02/02/2018 Inactive Adderall 30 mg tablet RxNorm: 930130 2 Tablet(s) PO daily 01/27/2018 02/18/2018 Inactive acyclovir 400 mg tablet RxNorm: 620781 1 Tablet(s) PO TID as needed take at ons et of symptoms of cold sores x 5 days 01/15/2018 05/09/2018 Inactive Bactrim DS 800 mg-16 0 mg tablet RxNorm: 579614 1 Tablet(s) PO BID 01/11/2018 01/17/2018 Inactive Bactrim DS 800 mg-16 0 mg tablet RxNorm: 885901 1 Tablet(s) PO BID 01/11/2018 01/10/2018 Inactive Dexilant 60 mg capsu le, delayed release RxNorm: 693660 1 Capsule(s) PO daily 12/23/2017 05/09/2018 In active Dexilant 60 mg capsu le, delayed release RxNorm: 872271 1 Capsule(s) PO daily 12/23/2017 12/22/2017 In active atenolol 50 mg tablet RxNorm: 341126 1 Tablet(s) PO BID 12/15/2017 05/09/2018 Inactive alprazolam 1 mg tablet RxNorm: 627584 1-1.5 Tablet(s) PO daily 12/15/2017 04/18/2018 Inactive ceftriaxone 500 mg s olution for injection RxNorm: 2141083 Inj 08/03/2015 08/03/2015 Inactive paroxetine 20 mg tablet RxNorm: 2509902 2 Tablet(s) PO QHS 08/01/2015 10/29/2015 Inactive pravastatin 40 mg ta blet RxNorm: 242192 1/2 Tablet(s) PO QHS 08/01/2015 12/14/2017 Inactive Trazadone 100mg 100 mg RxNorm: 1 PO daily 08/01/2015 11/27/2015 Inactive Trazadone 100mg 100 mg RxNorm: 1 PO daily 08/01/2015 05/04/2018 Inactive atenolol 50 mg tablet RxNorm: 024289 1 Tablet(s) PO daily 08/01/2015 10/29/2015 Inactive ibuprofen 800 mg tablet RxNorm: 698493 1 Tablet(s) PO BID -TID No Start Date Active Fish Oil 360 mg-1,20 0 mg capsule RxNorm: 978317 1 Capsule(s) PO BID No Start Date Active Zyrtec 10 mg tablet RxNorm: 7810196 1 Tablet(s) PO daily No Start Date Active pravastatin 40 mg ta blet RxNorm: 082681 1/2 Tablet(s) PO QHS No Start Date 07/31/2015 Inactive Benadryl Allergy 25 mg tablet RxNorm: 6551603 1 Tablet(s) PO daily No Start Date 07/19/2018 Inactive Adderall 30 mg tablet RxNorm: 195732 2 Tablet(s) PO daily No Start Date 01/26/2018 Inactive Aspirin Low Dose 81 mg tablet,delayed release RxNorm: 995448 1 Tablet(s) PO BID No Start Date 07/19/2018 Inactive Singulair 10 mg tablet RxNorm: 781652 1 Tablet(s) PO daily No Start Date 05/09/2018 Inactive cyclobenzaprine 10 m g tablet RxNorm: 804195 1 Tablet(s) PO TID as needed muscle spasms No Start Date 02/21/2018 Inactive Trazadone 100mg 100 mg RxNorm: 1 PO daily No Start Date 07/31/2015 Inactive clindamycin 1 %-arthur oyl peroxide 5 % topical gel RxNorm: 561611 TOP APPLY TO AFFECTED AREA(S) ON SERNA TWO TIMES A DAY No Start Date 11/16/2018 Inactive hydrocortisone 2.5 % topical cream RxNorm: 559949 1 Application TOP BID No Start Date 07/20/2018 Inactive alprazolam 1 mg tablet RxNorm: 082978 2 Tablet(s) PO daily No Start Date 12/14/2017 Inactive tramadol 50 mg tablet RxNorm: 244445 1-2 Tablet(s) PO Q6 as needed No Start Date 08/17/2018 Inactive Vitamin D2 50,000 un it capsule RxNorm: 1105983 1 Capsule(s) PO QW No Start Date 05/17/2018 Inactive pantoprazole 40 mg t ablet,delayed release RxNorm: 615978 1 Tablet(s) PO BID No Start Date 12/22/2017 Inactive atenolol 50 mg tablet RxNorm: 118098 1 Tablet(s) PO daily No Start Date 07/31/2015 Inactive paroxetine 20 mg tablet RxNorm: 626507 2 Tablet(s) PO QHS No Start Date 07/31/2015 Inactive Medication Administered Medication Codes Instruc tions Start Date Status testosterone cypionate 200 mg/mL intramuscular oil RxNorm: 9058981 1.25Milliliter 12/29/2018 No longer Active testosterone cypionate 200 mg/mL intramuscular oil RxNorm: 9801005 Milliliter 12/16/2018 No longer Active testosterone cypionate 200 mg/mL intramuscular oil RxNorm: 0044410 1Milliliter 11/15/2018 No longer Active testosterone cypionate 200 mg/mL intramuscular oil RxNorm: 567272 Milliliter 09/28/2018 No longer Active testosterone cypionate 200 mg/mL intramuscular oil RxNorm: 977927 Milliliter 09/16/2018 No longer Active testosterone cypionate 200 mg/mL intramuscular oil RxNorm: 173814 1Milliliter 09/02/2018 No longer Active testosterone cypionate 200 mg/mL intramuscular oil RxNorm: 563200 Milliliter 08/19/2018 No longer Active testosterone cypionate 200 mg/mL intramuscular oil RxNorm: 776948 Milliliter 07/15/2018 No longer Active testosterone cypionate 200 mg/mL intramuscular oil RxNorm: 469250 Milliliter 06/17/2018 No longer Active testosterone cypionate 200 mg/mL intramuscular oil RxNorm: 553277 Milliliter 05/21/2018 No longer Active ceftriaxone 500 mg solution for injection RxNorm: 3717795 08/03/2015 No longer A ctive Immunizations Vaccine [...] Code Result Date Comp. Metabolic Panel (14) 76753 GLUCOSE 117 mg/dL 12/17/2018 Comp. Metabolic Panel (14) 76696 BUN 17 mg/dL 12/17/2018 Comp. Metabolic Panel (14) 58199 CREATININE 0.99 mg/dL 12/17/2018 Comp. Metabolic Panel (14) 31951 SODIUM 137 mmol/L 12/17/2018 Comp. Metabolic Panel (14) 20103 POTASSIUM 4.6 mmol/L 12/17/2018 Comp. Metabolic Panel (14) 49939 CHLORIDE 102 mmol/L 12/17/2018 Comp. Metabolic Panel (14) 49302 CARBON DIOXIDE 21 mmol/L 12/17/2018 Comp. Metabolic Panel (14) 18142 CALCIUM 9.4 mg/dL 12/17/2018 Comp. Metabolic Panel (14) 14549 TOTAL PROTEIN 7.5 g/dL 12/17/2018 Comp. Metabolic Panel (14) 14524 ALBUMIN 5.1 g/dL 12/17/2018 Comp. Metabolic Panel (14) 14620 ALKALINE PHOSPHATASE 79 U/L 12/17/2018 Comp. Metabolic Panel (14) 21127 TOTAL BILIRUBIN 0.5 mg/dL 12/17/2018 Comp. Metabolic Panel (14) 63066 SGOT (AST) 34 U/L 12/17/2018 Comp. Metabolic Panel (14) 20327 SGPT (ALT) 40 U/L 12/17/2018 Comp. Metabolic Panel (14) 23773 eGFR (mL/min/1.73m2) 115 12/17/2018 Comp. Metabolic Panel (14) 87391 INTERPRETATION 12/17/2018 Testosterone Serum 241410 TESTOSTERONE 96.8 ng/dL 12/17/2018 Cbc With Differential/Platelet 49489 WBC 5.61 thou/uL 9 Cbc With Differential/Platelet 30502 RBC 5.53 mil/uL 12/17/2018 Cbc With Differential/Platelet 00913 HEMOGLOBIN 15.4 g/dL 12/17/2018 Cbc With Differential/Platelet 45023 HEMATOCRIT 48.1 % 12/17/2018 Cbc With Differential/Platelet 88155 MCV 87.0 fL 12/17/2018 Cbc With Differential/Platelet 15911 MCH 27.8 pg 12/17/2018 Cbc With Differential/Platelet 36301 MCHC 32.0 g/dL 12/17/2018 Cbc With Differential/Platelet 33374 RDW-CV 13.9 % 12/17/2018 Cbc With Differential/Platelet 26028 PLATELET COUNT 294 thou/uL 12/17/2018 Cbc With Differential/Platelet 13304 NEUTROPHIL % 71.2 % 12/17/2018 Cbc With Differential/Platelet 56348 LYMPHOCYTE % 22.2 % 12/17/2018 Cbc With Differential/Platelet 15157 MONOCYTE % 5.4 % 12/17/2018 Cbc With Differential/Platelet 18673 EOS % 0.9 % 12/17/2018 Cbc With Differential/Platelet 04138 BASO % 0.4 % 12/17/2018 Cbc With Differential/Platelet 13308 NEUTROPHIL ABS # 3.99 thou/uL 12/17/2018 Cbc With Differential/Platelet 95852 LYMPH ABS # 1.25 thou/uL 12/17/2018 Cbc With Differential/Platelet 32341 MONOCYTE ABS # 0.30 thou/uL 12/17/2018 Cbc With Differential/Platelet 50602 EOS ABS # 0.05 thou/uL 9 Cbc With Differential/Platelet 89882 BASO ABS # 0.02 thou/uL 12/17/2018 Lipid Panel 73477 CHOLES TEROL 227 mg/dL 12/17/2018 Lipid Panel 89376 TRIGLY CERIDES 229 mg/dL 12/17/2018 Lipid Panel 53648 HDL 41 mg/dL 12/17/2018 Lipid Panel 90977 CHOLES TEROL/HDL 5.54 12/17/2018 Lipid Panel 28827 LDL (C ALCULATED) 140 mg/dL 12/17/2018 Lipid Panel 47244 LDL/HDL 3.41 12/17/2018 Lipid Panel 46009 INTERP RETATION 12/17/2018 Tsh 018860 TSH 1.190 uIU/mL 12/17/2018 Testosterone Serum 199460 TESTOSTERONE 44.1 ng/dL 08/18/2018 Hemoglobin 395295 WBC 7.62 thou/uL 08/17/2018 Hemoglobin 420034 RBC 5.23 mil/uL 08/17/2018 Hemoglobin 428696 HEMOGL OBIN 15.0 g/dL 08/17/2018 Hemoglobin 460220 HEMATO CRIT 45.0 % 08/17/2018 Hemoglobin 877832 MCV 86.0 fL 08/17/2018 Hemoglobin 387866 MCH 28.7 pg 08/17/2018 Hemoglobin 152140 MCHC 33.3 g/dL 08/17/2018 Hemoglobin 643401 RDW-CV 12.9 % 08/17/2018 Hemoglobin 614795 PLATEL ET COUNT 313 thou/uL 08/17/2018 Hematocrit 389944 WBC 7.62 thou/uL 08/17/2018 Hematocrit 657363 RBC 5.23 mil/uL 08/17/2018 Hematocrit 628449 HEMOGL OBIN 15.0 g/dL 08/17/2018 Hematocrit 999603 HEMATO CRIT 45.0 % 08/17/2018 Hematocrit 569606 MCV 86.0 fL 08/17/2018 Hematocrit 815603 MCH 28.7 pg 08/17/2018 Hematocrit 719155 MCHC 33.3 g/dL 08/17/2018 Hematocrit 213744 RDW-CV 12.9 % 08/17/2018 Hematocrit PLATEL ET COUNT 313 thou/uL 08/17/2018 Culture Mrsa 799345 MRSA CULTURE SEE NOTES 06/21/2018 Comp. Metabolic Panel (14) 73441 GLUCOSE 101 mg/dL 06/18/2018 Comp. Metabolic Panel (14) 11229 BUN 18 mg/dL 06/18/2018 Comp. Metabolic Panel (14) 77176 CREATININE 0.99 mg/dL 06/18/2018 Comp. Metabolic Panel (14) 59031 SODIUM 141 mmol/L 06/18/2018 Comp. Metabolic Panel (14) 18107 POTASSIUM 4.3 mmol/L 06/18/2018 Comp. Metabolic Panel (14) 88495 CHLORIDE 103 mmol/L 06/18/2018 Comp. Metabolic Panel (14) 86582 CARBON DIOXIDE 23 mmol/L 06/18/2018 Comp. Metabolic Panel (14) 22444 CALCIUM 9.8 mg/dL 06/18/2018 Comp. Metabolic Panel (14) 71997 TOTAL PROTEIN 7.1 g/dL 06/18/2018 Comp. Metabolic Panel (14) 46245 ALBUMIN 5.2 g/dL 06/18/2018 Comp. Metabolic Panel (14) 91292 ALKALINE PHOSPHATASE 65 U/L 06/18/2018 Comp. Metabolic Panel (14) 36401 TOTAL BILIRUBIN 0.6 mg/dL 06/18/2018 Comp. Metabolic Panel (14) 38003 SGOT (AST) 21 U/L 06/18/2018 Comp. Metabolic Panel (14) 38999 SGPT (ALT) 24 U/L 06/18/2018 Comp. Metabolic Panel (14) 00881 eGFR (mL/min/1.73m2) 115 06/18/2018 Comp. Metabolic Panel (14) 90396 INTERPRETATION 06/18/2018 Cbc With Differential/Platelet 50093 WBC 4.55 thou/uL 8 Cbc With Differential/Platelet 52055 RBC 5.13 mil/uL 06/18/2018 Cbc With Differential/Platelet 78658 HEMOGLOBIN 14.4 g/dL 06/18/2018 Cbc With Differential/Platelet 51399 HEMATOCRIT 44.1 % 06/18/2018 Cbc With Differential/Platelet 28773 MCV 85.9 fL 06/18/2018 Cbc With Differential/Platelet 65030 MCH 28.1 pg 06/18/2018 Cbc With Differential/Platelet 35667 MCHC 32.7 g/dL 06/18/2018 Cbc With Differential/Platelet 72886 RDW-CV 13.4 % 06/18/2018 Cbc With Differential/Platelet 22201 PLATELET COUNT 287 thou/uL 06/18/2018 Cbc With Differential/Platelet 79837 NEUTROPHIL % 53.9 % 06/18/2018 Cbc With Differential/Platelet 82331 LYMPHOCYTE % 36.1 % 06/18/2018 Cbc With Differential/Platelet 56969 MONOCYTE % 7.4 % 06/18/2018 Cbc With Differential/Platelet 95325 EOS % 1.9 % 06/18/2018 Cbc With Differential/Platelet 56074 BASO % 0.8 % 06/18/2018 Cbc With Differential/Platelet 79183 NEUTROPHIL ABS # 2.45 thou/uL 06/18/2018 Cbc With Differential/Platelet 50459 LYMPH ABS # 1.64 thou/uL 06/18/2018 Cbc With Differential/Platelet 82351 MONOCYTE ABS # 0.34 thou/uL 06/18/2018 Cbc With Differential/Platelet 39295 EOS ABS # 0.09 thou/uL 8 Cbc With Differential/Platelet 94513 BASO ABS # 0.04 thou/uL 06/18/2018 Review [...] developed 12/29/2018 None Full Exam - General 1997 [...] Procedure Codes Date THER/PROPH/DIAG INJ SC/IM CPT-4: 03062 12/29/2018 THER/PROPH/DIAG INJ SC/IM CPT-4: 16876 12/16/2018 THER/PROPH/DIAG INJ SC/IM CPT-4: 09745 11/15/2018 THER/PROPH/DIAG INJ SC/IM CPT-4: 33378 09/28/2018 THER/PROPH/DIAG INJ SC/IM CPT-4: 77303 09/16/2018 THER/PROPH/DIAG INJ SC/IM CPT-4: 85369 09/02/2018 THER/PROPH/DIAG INJ SC/IM CPT-4: 74017 08/19/2018 IMMUNIZATION ADMIN CPT- 4: 29105 08/02/2018 FLU VAC NO PRSV 4 VA L 3 YRS+ CPT-4: 03092 08/02/2018 THER/PROPH/DIAG INJ SC/IM CPT-4: 79077 07/15/2018 THER/PROPH/DIAG INJ SC/IM CPT-4: 51860 06/17/2018 THER/PROPH/DIAG INJ SC/IM CPT-4: 13875 05/21/2018 THER/PROPH/DIAG INJ SC/IM CPT-4: 37478 08/03/2015 ROCEPHIN, PER 250 MG CPT-4: J0696 08/03/2015 Vital Signs Date Vital 05/05/2019 Heigh t: Weight: 04/20/2019 Blood Pressure 1: 160/84 Code: 8480-6 BMI: 34.0 Code: 95979-7 Heart Rate 1: 82 bpm Height: 5'7" SpO2: 97% Weight: 216 lbs 13 o z 12/29/2018 Blood Pressure 1: 144/90 Code: 8480-6 BMI: 34.8 Code: 59290-3 Heart Rate 1: 91 bpm Height: 5'7" SpO2: 98% Weight: 222 lbs 12/20/2018 Blood Pressure 1: 124/76 Code: 8480-6 BMI: 35.4 Code: 07652-1 Heart Rate 1: 79 bpm Height: 5'7" SpO2: 99% Weight: 226 lbs 12/16/2018 Blood Pressure 1: 160/90 Code: 8480-6 BMI: 35.4 Code: 30180-0 Heart Rate 1: 90 bpm Height: 5'7" SpO2: 95% Weight: 226 lbs 11/01/2018 Blood Pressure 1: 146/82 Code: 8480-6 BMI: 36.0 Code: 74495-8 Heart Rate 1: 87 bpm Height: 5'7" SpO2: 98% Weight: 230 lbs 09/24/2018 Blood Pressure 1: 140/82 Code: 8480-6 BMI: 36.0 Code: 46428-0 Heart Rate 1: 86 bpm Height: 5'7" SpO2: 98% Temperature: 37.1 (C ) / 98.7 (F) Weight: 230 lbs 08/16/2018 Blood Pressure 1: 148/82 Code: 8480-6 Blood Pressure 2: 157/92 Code: 8480-6 BMI: 35.9 Code: 04144-6 Heart Rate 1: 72 bpm Height: 5'7" SpO2: 96% Weight: 229 lbs 08/02/2018 Blood Pressure 1: 142/86 Code: 8480-6 BMI: 35.2 Code: 97024-8 Heart Rate 1: 101 bpm Height: 5'7" SpO2: 97% Weight: 225 lbs 05/31/2018 Blood Pressure 1: 134/82 Code: 8480-6 BMI: 35.4 Code: 82094-4 Heart Rate 1: 91 bpm Height: 5'7" SpO2: 96% Weight: 226 lbs 05/20/2018 Blood Pressure 1: 160/100 Code: 8480-6 BMI: 35.2 Code: 59991-0 Heart Rate 1: 89 bpm Height: 5'7" SpO2: 98% Weight: 225 lbs 05/10/2018 Blood Pressure 1: 124/70 Code: 8480-6 BMI: 35.1 Code: 69721-7 Heart Rate 1: 93 bpm Height: 5'7" SpO2: 99% Weight: 224 lbs 01/15/2018 Blood Pressure 1: 142/92 Code: 8480-6 BMI: 36.3 Code: 62719-9 Heart Rate 1: 77 bpm Height: 5'7" SpO2: 98% Weight: 232 lbs 12/15/2017 Blood Pressure 1: 156/98 Code: 8480-6 BMI: 36.2 Code: 33052-0 Heart Rate 1: 87 bpm Height: 5'7" [...] eye 01/15/2018 None vision change [facility] [place] 01/15/2018 None vision change Quality lo ss [...] vision 12/15/2017 None vision change [facility] [place] 12/15/2017 None vision change Onset and Resolution [...] disorder, recurrent, moderate[ICD10: F33.1] Sonia Gonzalez MD, [facility] CPT-4: 50555 05/05/2019 ([id number]) 76546 EST. P ATIENT, LEVEL III Diagnosis: Essential (primary) hypertension[ICD10: I10] Diagnosis: Major depressive disorder, recurrent, moderate[ICD10: F33.1] Diagnosis: Dysphagia, pharyngeal phase[ICD10: R13.13] Radha Gonzalez MD, [facility] CPT-4: 18829 04/20/2019 ([id number]) 28262 EST. 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 PATIENT, LEVEL III Diagnosis: Pain in right arm[ICD10: M79.601] [facility] CPT-4: 67777 12/20/2018 ([id number]) 01720 EST. 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 PATIENT, LEVEL III Diagnosis: Acute upper respiratory infection, unspecified[ICD10: J06.9] Diagnosis: Other allergic rhinitis[ICD10: J30.89] [facility] CPT-4: 14301 09/24/2018 ([id number]) 47751 EST. 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 P ATIENT, LEVEL IV Diagnosis: Essential (primary) hypertension[ICD10: I10] Diagnosis: Cervicalgia[ICD10: M54.2] Radha Gonzalez MD, [facility] CPT-4: 21333 05/31/2018 ([id number]) 55368 EST. 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 05/05/2019 Appointment: Sonia Potter WPtel: [phone] [facility] (30 min) Complex 05/05/2019 Appointment: Radha Gonzalez WPtel: [phone] [facility] (15 min) Moderate 05/05/2019 Patient Education: [...] paroxetine to 40mg daily. 04/20/2019 Appointment: Radha Gnozalez WPtel: [phone] [facility] (15 min) Moderate 04/20/2019 Patient Education: Patient [...] injections. 12/29/2018 [facility]ment: [phone] (15 min) Moderate 12/29/2018 Patient Education: Patient Medication Summary Completed 12/29/2018 Patient Education: .Cervicalgia Neck Pain Completed 12/29/2018 Patient Education: Patient Medication Summary Completed 12/21/2018 Care Plan: %Hba1C add to blood from 12/17 LOINC : 47204-8 Pending 12/21/2018 Visit Plan: Right arm pain - dayna deformity noted - will refer to ortho - The pt is to use prn antiinflammatories to manage acute pain. The patient is to call the office if the pain is worsening or does not improve. 12/20/2018 App[facility]ment: [phone] (15 min) Moderate 12/20/2018 Patient Education: [...] testosterone. 12/16/2018 Appointment: [phone] [facility] (15 min) Moderate 12/16/2018 Patient Education: [...] as needed. 11/01/2018 Appointment: Radha Gonzalez WPtel: [address] [place] [address] (15 min) Moderate 11/01/2018 Patient Education: Patient [...] allergy spray. 09/24/2018 Appointment: Sonia Potter WPtel: [address] [place] [address] (15 min) Moderate 09/24/2018 Patient Education: Patient [...] home. Multiple symptoms - referral to [facility] - appt in September 30, 2018. 08/16/2018 Appointment: Radha Gonzalez WPtel:[phone] [facility] [facility] [place] (15 min) Moderate 08/16/2018 Patient Education: [...] home. Multiple symptoms - referral to [facility] - rashes, hypogonadism, optic neuritis - all points to possible autoimmune syndrome. Spinal stenosis - of thoracic region - pt to talk to Dr. Dunaway about referral to a different specialist for his mid- back. Hypogonadism - continue with testosterone. Flu shot given today in clinic. 08/02/2018 Appointment: Radha Gonzalez WPtel: [phone] [facility] [place] (15 min) Moderate 08/02/2018 Patient Education: Patient Medication Summary Completed 08/02/2018 Care Plan: Referral Order SNOMED-CT : 989030389 Pending 08/02/2018 Appointment: Injection 07/15/2018 Patient Education: [...] home. Cervical spine stenosis - referral to [facility]. I have also recommended a Referral to Dr. Dunaway. I have called and talked to Dr. Dunaway - he looked at the pt's imaging and agrees that getting the pt in to be seen soon would be a preferred option. 05/31/2018 Appointment: Rad[facility] Gonzalez [facility]Ptel[phone] [facility] [place] (15 min) Moderate 05/31/2018 Patient Education: Patient Medication Summary Completed 05/31/2018 Care Plan: Referral Order SNOMED-CT : [id number] Pending 05/31/2018 Care Plan: Referral Order SNOMED-CT : [id number] Pending 05/31/2018 Appointment: Injection 05/21/2018 Patient Education: Patient Medication Summary Completed 05/21/2018 Care Plan: Referral Order SNOMED-CT : [id number] Pending 05/21/2018 Visit Plan: Cervical and thoracic s tenosis with spinal cord compression -refer for appt with Dr Marr -rx for hydrocodone for pain-start gabapentin at bedtime Soft tissue lesion-left chest-schedule CTfor further evaluation HTN-elevated today-hold adderall-monitor blood pressure 05/20/2018 Appointment: Hannah Simons WPtel: [facility] [place] [phone] [place] (15 min) Moderate 05/20/2018 Patient Education: [...] order this. 05/10/2018 Appointment: Sonia Potter WPtel: [facility] [place] (15 min) Moderate 05/10/2018 Patient Education: Patient Medication Summary Completed 05/10/2018 Visit Plan: Sleep apnea - rx for cp ap - actually autopap was recommended and pt given rx today. HTN - referral to dr. kapoor - pt needs stress testing. 01/15/2018 Appointment: Radha Gonzalez WPtel: [facility] [place] (15 min) Moderate 01/15/2018 Patient Education: Patient Medication Summary Completed 01/15/2018 Care Plan: Referral Order SNOMED-CT : [id number] Pending 01/15/2018 Visit Plan: Well Adult - [...] one month. 12/15/2017 Appointment: Radha Gonzalez WPtel: [facility] [facility] Patient 12/15/2017 Patient Education: Patient Medication Summary Completed 12/15/2017 Care Plan: CHEST X-RAY 2VW FRONTAL&LATL LOINC : 64990-7 Pending 12/15/2017 Appointment: Radha Gonzalez WPtel: [address] [place], [place] [phone] (15 min) Moderate 12/08/2017 Appointment: (S) New Patient 08/13/2015 Visit Plan: steri strip placed on t humb of right hand - antibiotic shot given to patient and rx for keflex 500mg qid x 10 days given to the patient to fill prior to his trip to [place] 08/03/2015 Patient Education: Patient Medication Summary Completed 08/03/2015 Referral: External, Ordering Provider 08/03 Referral info faxed to [facility]. Patient informed to be expecting a call from them with appt info Appointment Requested Referral: External, Ordering Provider Referral Appointment Requested Referral: External, Ordering Provider I called today; they will call him to schedule. Completed Referral: Armani Dunaway Referral Appointment Requested Referral: Mayte Kapoor Referral Appointment Requested Referral: [phone] [facility] Referral Appointment Requested Referral: External, Ordering [...] home. Multiple symptoms - referral to [facility] - rashes, hypogonadism, optic neuritis - all [...] home. Multiple symptoms - referral to [facility] - appt in September 30, 2018. . [...] to fill prior to his trip to [place] Prazosin - for night mcrae . Chronic [...] Cervical spine stenosis - referral to [facility] physical therapy. I have also recommended a Referral to Dr. Dunaway. I have called and talked to Dr. Dunaway - he looked at the pt's imaging and agrees that getting the pt in to be seen soon would be a preferred option.
[2020-04-28] MEDS ORDERED: ONDANSETRON 4 MG/2 ML (SDV) Z0FRAN IVP ONE (00:30)
--- OUTSIDE RECORDS SUMMARY | 2020-04-28 00:31 | XMS REPORT | CCD ---
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 Name Role Phone PP Unavailable CCM Unavailable Summary Purpose Interface Exchange Family history Brother Diagnosis Age At Onset Alcoholism Unknown Father Diagnosis Age At Onset Hypercholesterolemia Unknown Social History Social History Element Codes Description Effective Dates Employment Unknown Curre ntly unemployed 04/20/2019 Marital status Unknown S chanda 12/15/2017 Number of children Unknown 1 12/15/[address]: 170705973 Never smoker 12/15/[address]: 869154 Currently drinks alcohol <1 per week 12/15/2017 [...] Fill Instructions prazosin 1 mg capsule RxNorm: 571482 1 Capsule(s) PO daily 05/05/2019 06/03/2019 Active paroxetine 40 mg tablet RxNorm: 4111343 1 Tablet(s) PO daily 04/20/2019 05/19/2019 Active Adderall 30 mg tablet RxNorm: 449599 2 Tablet(s) PO daily 04/19/2019 05/18/2019 Active alprazolam 1 mg tablet RxNorm: 558383 1 Tablet(s) PO TID as needed 04/13/2019 06/11/2019 Active hydrocodone 5 mg-fanny taminophen 325 mg tablet RxNorm: 293569 1-2 Tablet(s) PO Q6 a s needed 03/21/2019 No Stop Date Active Adderall 30 mg tablet RxNorm: 702663 2 Tablet(s) PO daily 03/21/2019 04/14/2019 Inactive tramadol 50 mg tablet RxNorm: 341201 1-2 Tablet(s) PO Q6 as needed 03/14/2019 No Stop Date Active hydrocodone 5 mg-fanny taminophen 325 mg tablet RxNorm: 068701 1-2 Tablet(s) PO Q6 a s needed 02/23/2019 03/20/2019 Inactive Adderall 30 mg tablet RxNorm: 561284 2 Tablet(s) PO daily 02/23/2019 03/20/2019 Inactive Adderall 30 mg tablet RxNorm: 400614 2 Tablet(s) PO daily 01/24/2019 02/22/2019 Inactive ketoconazole 2 % top ical cream RxNorm: 713210 APPLY ONE GRAM TOPICA LLY TWICE A DAY 01/12/2019 01/26/2019 In active tramadol 50 mg tablet RxNorm: 932751 1-2 Tablet(s) PO Q6 as needed 01/11/2019 03/13/2019 In active atenolol 50 mg tablet RxNorm: 598444 1.5 Tablet(s) PO BID 12/29/2018 12/23/2019 Active hydrocodone 5 mg-fanny taminophen 325 mg tablet RxNorm: 727846 1-2 Tablet(s) PO Q6 a s needed 12/29/2018 02/22/2019 Inactive Adderall 30 mg tablet RxNorm: 252875 2 Tablet(s) PO daily 12/29/2018 01/23/2019 Inactive hydrocodone 5 mg-fanny taminophen 325 mg tablet RxNorm: 421437 1-2 Tablet(s) PO Q6 a s needed 12/29/2018 12/28/2018 Inactive testosterone cypiona te 200 mg/mL intramuscular oil RxNorm: 2904813 1.25 Milliliter(s) IM 12/29/2018 12/29/2018 Inactive hydrocodone 5 mg-fanny taminophen 325 mg tablet RxNorm: 183894 1 Tablet(s) PO TID VT N 12/28/2018 12/28/2018 In active testosterone cypiona te 200 mg/mL intramuscular oil RxNorm: 2036523 1.25 Milliliter(s) IM 2 x month 12/22/2018 04/12/2019 Inactive gabapentin 300 mg ca psule RxNorm: 863734 1 Capsule(s) PO QID 12/16/2018 12/10/2019 Active testosterone cypiona te 200 mg/mL intramuscular oil RxNorm: 2277493 Milliliter(s) IM 12/16/2018 12/16/2018 In active Voltaren 1 % topical gel RxNorm: 175499 2 Gram(s) APPLY TOPIC ALLY four TIMES A DAY 12/16/2018 01/20/2019 In active trazodone 100 mg tablet RxNorm: 942830 TAKE ONE TABLET BY MOUTH EVERY NIGHT AT BEDTIME 12/07/2018 06/04/2019 Active hydrocodone 5 mg-fanny taminophen 325 mg tablet RxNorm: 737458 1 Tablet(s) PO TID VT N 11/29/2018 12/27/2018 In active Adderall 30 mg tablet RxNorm: 751334 2 Tablet(s) PO daily 11/29/2018 12/28/2018 Inactive clindamycin 1 %-arthur oyl peroxide 5 % topical gel RxNorm: 867034 TOP APPLY TO AFFECTED AREA(S) ON SERNA TWO TIMES A DAY 11/17/2018 No Stop Date Active testosterone cypiona te 200 mg/mL intramuscular oil RxNorm: 9421969 1 Milliliter(s) IM 2 x month 11/17/2018 12/21/2018 Inactive Zorvolex 35 mg capsule RxNorm: 7117566 1 Capsule(s) PO TID as needed for pain 11/15/2018 05/13/2019 Ac tive ketoconazole 2 % top ical cream RxNorm: 353517 APPLY ONE GRAM TOPICA LLY TWICE A DAY 11/15/2018 11/29/2018 In active testosterone cypiona te 200 mg/mL intramuscular oil RxNorm: 4065381 1 Milliliter(s) IM 11/15/2018 11/14/2018 Inactive hydrocodone 5 mg-fanny taminophen 325 mg tablet RxNorm: 172350 1 Tablet(s) PO TID VT N 11/02/2018 11/28/2018 In active Singulair 10 mg tablet RxNorm: 519218 1 Tablet(s) PO daily 11/01/2018 07/28/2019 Active testosterone cypiona te 200 mg/mL intramuscular oil RxNorm: 3240846 1 Milliliter(s) IM 2 x month 11/01/2018 11/16/2018 Inactive Adderall 30 mg tablet RxNorm: 716462 2 Tablet(s) PO daily 10/29/2018 11/27/2018 Inactive gabapentin 300 mg ca psule RxNorm: 830519 1 Capsule(s) PO BID m ay take TID 10/19/2018 12/15/2018 In active gabapentin 300 mg ca psule RxNorm: 408788 1 Capsule(s) PO BID m ay take TID 10/19/2018 10/18/2018 In active alprazolam 1 mg tablet RxNorm: 564179 1 Tablet(s) PO TID as needed 10/15/2018 04/19/2019 Inactive testosterone cypiona te 200 mg/mL intramuscular oil RxNorm: 721457 Milliliter(s) IM 09/28/2018 09/28/2018 In active pravastatin 40 mg ta blet RxNorm: 869682 TAKE ONE TABLET BY [facility] EVERY NIGHT AT BEDTIME 09/27/2018 09/21/2019 Active Tamiflu 75 mg capsule RxNorm: 688166 1 Capsule(s) PO BID 09/24/2018 09/28/2018 Inactive Adderall 30 mg tablet RxNorm: 802522 2 Tablet(s) PO daily 09/20/2018 10/19/2018 Inactive hydrocodone 5 mg-fanny taminophen 325 mg tablet RxNorm: 062849 1 Tablet(s) PO TID VT N 09/20/2018 11/01/2018 In active testosterone cypiona te 200 mg/mL intramuscular oil RxNorm: 926955 Milliliter(s) IM 09/16/2018 09/16/2018 In active testosterone cypiona te 200 mg/mL intramuscular oil RxNorm: 159091 1 Milliliter(s) IM 09/02/2018 09/02/2018 Inactive testosterone cypiona te 200 mg/mL intramuscular oil RxNorm: 554399 Milliliter(s) IM 08/19/2018 08/19/2018 In active Adderall 30 mg tablet RxNorm: 852340 2 Tablet(s) PO daily 08/18/2018 09/16/2018 Inactive tramadol 50 mg tablet RxNorm: 068040 1-2 Tablet(s) PO Q6 as needed 08/18/2018 01/12/2019 In active Dexilant 60 mg capsu le, delayed release RxNorm: 742471 1 Capsule(s) PO BID 08/17/2018 08/11/2019 Ac tive ketoconazole 2 % top ical cream RxNorm: 733000 1 Gram(s) TOP BID 08/17/2018 08/26/2018 Inactive Zorvolex 35 mg capsule RxNorm: 2957815 1 Capsule(s) PO TID as needed for pain 08/17/2018 08/16/2018 In active atenolol 50 mg tablet RxNorm: 326341 1 Tablet(s) PO BID 08/17/2018 12/28/2018 Inactive Zorvolex 35 mg capsule RxNorm: 7281038 1 Capsule(s) PO TID as needed for pain 08/17/2018 11/14/2018 In active ketoconazole 2 % top ical cream RxNorm: 670358 1 Gram(s) TOP BID 08/02/2018 08/11/2018 Inactive hydrocortisone 2.5 % topical cream RxNorm: 203109 1 Application TOP BID 07/21/2018 No Stop Date Active Adderall 30 mg tablet RxNorm: 666424 2 Tablet(s) PO daily 07/20/2018 08/17/2018 Inactive testosterone cypiona te 200 mg/mL intramuscular oil RxNorm: 896034 Milliliter(s) IM 07/15/2018 07/15/2018 In active alprazolam 1 mg tablet RxNorm: 284769 1 Tablet(s) PO TID as needed 07/12/2018 09/07/2018 Inactive hydrocodone 5 mg-fanny taminophen 325 mg tablet RxNorm: 192392 1 Tablet(s) PO TID VT N 06/30/2018 09/19/2018 In active pravastatin 40 mg ta blet RxNorm: 401037 1 Tablet(s) PO QHS 06/18/2018 09/15/2018 Inactive Adderall 30 mg tablet RxNorm: 581165 2 Tablet(s) PO daily 06/18/2018 07/17/2018 Inactive testosterone cypiona te 200 mg/mL intramuscular oil RxNorm: 224033 Milliliter(s) IM 06/17/2018 06/17/2018 In active Voltaren 1 % topical gel RxNorm: 320542 APPLY TOPICALLY TWO T IMES A DAY 06/16/2018 07/21/2018 In active Vitamin D2 50,000 un it capsule RxNorm: 8547688 1 Capsule(s) PO QW 05/21/2018 No Stop Date Active Adderall 30 mg tablet RxNorm: 577392 2 Tablet(s) PO daily 05/21/2018 06/17/2018 Inactive testosterone cypiona te 200 mg/mL intramuscular oil RxNorm: 353909 Milliliter(s) IM 05/21/2018 05/21/2018 In active testosterone cypiona te 200 mg/mL intramuscular oil RxNorm: 7801454 1 Milliliter(s) IM monthly 05/20/2018 09/16/2018 Inactive testosterone cypiona te 200 mg/mL intramuscular oil RxNorm: 266016 1 Milliliter(s) IM monthly 05/20/2018 05/19/2018 Inactive hydrocodone 5 mg-fanny taminophen 325 mg tablet RxNorm: 715760 1 Tablet(s) PO TID VT N 05/20/2018 06/29/2018 In active Vitamin D2 50,000 un it capsule RxNorm: 6288217 1 Capsule(s) PO QW 05/18/2018 05/20/2018 Inactive triamcinolone aceton destin 0.025 % topical cream RxNorm: 7083886 1 Application TOP BI D 05/13/2018 No Stop Date Active Dexilant 60 mg capsu le, delayed release RxNorm: 591569 1 Capsule(s) PO BID 05/13/2018 08/16/2018 In active Zorvolex 35 mg capsule RxNorm: 5352033 1 Capsule(s) PO TID as needed for pain 05/12/2018 08/09/2018 In active Voltaren 1 % topical gel RxNorm: 781998 1 Application TOP BID 05/12/2018 06/15/2018 Inactive acyclovir 400 mg tablet RxNorm: 031640 1 Tablet(s) PO TID as needed take at ons et of symptoms of cold sores x 5 days 05/10/2018 No Stop Date Active ProAir HFA 90 mcg/ac tuation aerosol inhaler RxNorm: 637516 1 Puff(s) INH QID as needed 05/10/2018 No Stop Date Active baclofen 20 mg tablet RxNorm: 464424 1 Tablet(s) PO TID as needed muscle spas ms 05/10/2018 06/08/2018 In active Singulair 10 mg tablet RxNorm: 851871 1 Tablet(s) PO daily 05/10/2018 08/07/2018 Inactive atenolol 50 mg tablet RxNorm: 111951 1 Tablet(s) PO BID 05/10/2018 08/07/2018 Inactive triamcinolone aceton destin 0.025 % topical cream RxNorm: 5860225 1 Application TOP BI D 05/10/2018 05/12/2018 In active paroxetine 20 mg tablet RxNorm: 6122293 2 Tablet(s) PO QHS 05/10/2018 04/19/2019 Inactive tramadol 50 mg tablet RxNorm: 272266 1 Tablet(s) PO TID as needed 05/10/2018 05/19/2018 Inactive Dexilant 60 mg capsu le, delayed release RxNorm: 435435 1 Capsule(s) PO daily 05/10/2018 05/12/2018 In active alprazolam 1 mg tablet RxNorm: 565083 1 Tablet(s) PO TID as needed 05/10/2018 08/06/2018 Inactive trazodone 100 mg tablet RxNorm: 295982 1 Tablet(s) PO QHS 05/10/2018 11/05/2018 Inactive cyclobenzaprine 10 m g tablet RxNorm: 031202 1 Tablet(s) PO TID as needed muscle spasms 05/07/2018 07/12/2018 Inactive trazodone 100 mg tablet RxNorm: 609317 1 Tablet(s) PO QHS 05/07/2018 05/09/2018 Inactive Adderall 30 mg tablet RxNorm: 493429 2 Tablet(s) PO daily 04/19/2018 05/18/2018 Inactive alprazolam 1 mg tablet RxNorm: 981834 1 Tablet(s) PO BID 04/19/2018 05/09/2018 Inactive Adderall 30 mg tablet RxNorm: 504184 2 Tablet(s) PO daily 03/26/2018 04/18/2018 Inactive paroxetine 20 mg tablet RxNorm: 8727283 2 Tablet(s) PO QHS 03/15/2018 05/09/2018 Inactive Adderall 30 mg tablet RxNorm: 414512 2 Tablet(s) PO daily 02/25/2018 03/25/2018 Inactive cyclobenzaprine 10 m g tablet RxNorm: 422361 1 Tablet(s) PO TID as needed muscle spasms 02/22/2018 05/06/2018 Inactive tramadol 50 mg tablet RxNorm: 546304 1 Tablet(s) PO TID as needed 02/22/2018 03/07/2018 Inactive tramadol 50 mg tablet RxNorm: 425980 1 Tablet(s) PO TID as needed 02/22/2018 02/21/2018 Inactive trazodone 100 mg tablet RxNorm: 330743 1 Tablet(s) PO QHS 02/03/2018 05/03/2018 Inactive trazodone 100 mg tablet RxNorm: 008753 1 Tablet(s) PO QHS 02/03/2018 02/02/2018 Inactive Adderall 30 mg tablet RxNorm: 263086 2 Tablet(s) PO daily 01/27/2018 02/18/2018 Inactive acyclovir 400 mg tablet RxNorm: 714613 1 Tablet(s) PO TID as needed take at ons et of symptoms of cold sores x 5 days 01/15/2018 05/09/2018 Inactive Bactrim DS 800 mg-16 0 mg tablet RxNorm: 314136 1 Tablet(s) PO BID 01/11/2018 01/17/2018 Inactive Bactrim DS 800 mg-16 0 mg tablet RxNorm: 279671 1 Tablet(s) PO BID 01/11/2018 01/10/2018 Inactive Dexilant 60 mg capsu le, delayed release RxNorm: 221916 1 Capsule(s) PO daily 12/23/2017 05/09/2018 In active Dexilant 60 mg capsu le, delayed release RxNorm: 841902 1 Capsule(s) PO daily 12/23/2017 12/22/2017 In active atenolol 50 mg tablet RxNorm: 655693 1 Tablet(s) PO BID 12/15/2017 05/09/2018 Inactive alprazolam 1 mg tablet RxNorm: 885132 1-1.5 Tablet(s) PO daily 12/15/2017 04/18/2018 Inactive ceftriaxone 500 mg s olution for injection RxNorm: 5608328 Inj 08/03/2015 08/03/2015 Inactive paroxetine 20 mg tablet RxNorm: 2796738 2 Tablet(s) PO QHS 08/01/2015 10/29/2015 Inactive pravastatin 40 mg ta blet RxNorm: 315617 1/2 Tablet(s) PO QHS 08/01/2015 12/14/2017 Inactive Trazadone 100mg 100 mg RxNorm: 1 PO daily 08/01/2015 11/27/2015 Inactive Trazadone 100mg 100 mg RxNorm: 1 PO daily 08/01/2015 05/04/2018 Inactive atenolol 50 mg tablet RxNorm: 400670 1 Tablet(s) PO daily 08/01/2015 10/29/2015 Inactive ibuprofen 800 mg tablet RxNorm: 778618 1 Tablet(s) PO BID -TID No Start Date Active Fish Oil 360 mg-1,20 0 mg capsule RxNorm: 059225 1 Capsule(s) PO BID No Start Date Active Zyrtec 10 mg tablet RxNorm: 0829890 1 Tablet(s) PO daily No Start Date Active pravastatin 40 mg ta blet RxNorm: 201650 1/2 Tablet(s) PO QHS No Start Date 07/31/2015 Inactive Benadryl Allergy 25 mg tablet RxNorm: 7921512 1 Tablet(s) PO daily No Start Date 07/19/2018 Inactive Adderall 30 mg tablet RxNorm: 945224 2 Tablet(s) PO daily No Start Date 01/26/2018 Inactive Aspirin Low Dose 81 mg tablet,delayed release RxNorm: 511063 1 Tablet(s) PO BID No Start Date 07/19/2018 Inactive Singulair 10 mg tablet RxNorm: 870124 1 Tablet(s) PO daily No Start Date 05/09/2018 Inactive cyclobenzaprine 10 m g tablet RxNorm: 589605 1 Tablet(s) PO TID as needed muscle spasms No Start Date 02/21/2018 Inactive Trazadone 100mg 100 mg RxNorm: 1 PO daily No Start Date 07/31/2015 Inactive clindamycin 1 %-arthur oyl peroxide 5 % topical gel RxNorm: 383464 TOP APPLY TO AFFECTED AREA(S) ON SERNA TWO TIMES A DAY No Start Date 11/16/2018 Inactive hydrocortisone 2.5 % topical cream RxNorm: 410797 1 Application TOP BID No Start Date 07/20/2018 Inactive alprazolam 1 mg tablet RxNorm: 904406 2 Tablet(s) PO daily No Start Date 12/14/2017 Inactive tramadol 50 mg tablet RxNorm: 026853 1-2 Tablet(s) PO Q6 as needed No Start Date 08/17/2018 Inactive Vitamin D2 50,000 un it capsule RxNorm: 6335098 1 Capsule(s) PO QW No Start Date 05/17/2018 Inactive pantoprazole 40 mg t ablet,delayed release RxNorm: 571435 1 Tablet(s) PO BID No Start Date 12/22/2017 Inactive atenolol 50 mg tablet RxNorm: 820685 1 Tablet(s) PO daily No Start Date 07/31/2015 Inactive paroxetine 20 mg tablet RxNorm: 442795 2 Tablet(s) PO QHS No Start Date 07/31/2015 Inactive Medication Administered Medication Codes Instruc tions Start Date Status testosterone cypionate 200 mg/mL intramuscular oil RxNorm: 3179913 1.25Milliliter 12/29/2018 No longer Active testosterone cypionate 200 mg/mL intramuscular oil RxNorm: 5834840 Milliliter 12/16/2018 No longer Active testosterone cypionate 200 mg/mL intramuscular oil RxNorm: 3437491 1Milliliter 11/15/2018 No longer Active testosterone cypionate 200 mg/mL intramuscular oil RxNorm: 655663 Milliliter 09/28/2018 No longer Active testosterone cypionate 200 mg/mL intramuscular oil RxNorm: 817211 Milliliter 09/16/2018 No longer Active testosterone cypionate 200 mg/mL intramuscular oil RxNorm: 592853 1Milliliter 09/02/2018 No longer Active testosterone cypionate 200 mg/mL intramuscular oil RxNorm: 337321 Milliliter 08/19/2018 No longer Active testosterone cypionate 200 mg/mL intramuscular oil RxNorm: 002438 Milliliter 07/15/2018 No longer Active testosterone cypionate 200 mg/mL intramuscular oil RxNorm: 240418 Milliliter 06/17/2018 No longer Active testosterone cypionate 200 mg/mL intramuscular oil RxNorm: 998721 Milliliter 05/21/2018 No longer Active ceftriaxone 500 mg solution for injection RxNorm: 1037108 08/03/2015 No longer A ctive Immunizations Vaccine [...] Code Result Date Comp. Metabolic Panel (14) 36051 GLUCOSE 117 mg/dL 12/17/2018 Comp. Metabolic Panel (14) 40438 BUN 17 mg/dL 12/17/2018 Comp. Metabolic Panel (14) 04058 CREATININE 0.99 mg/dL 12/17/2018 Comp. Metabolic Panel (14) 62073 SODIUM 137 mmol/L 12/17/2018 Comp. Metabolic Panel (14) 31528 POTASSIUM 4.6 mmol/L 12/17/2018 Comp. Metabolic Panel (14) 28650 CHLORIDE 102 mmol/L 12/17/2018 Comp. Metabolic Panel (14) 64056 CARBON DIOXIDE 21 mmol/L 12/17/2018 Comp. Metabolic Panel (14) 92502 CALCIUM 9.4 mg/dL 12/17/2018 Comp. Metabolic Panel (14) 66939 TOTAL PROTEIN 7.5 g/dL 12/17/2018 Comp. Metabolic Panel (14) 17843 ALBUMIN 5.1 g/dL 12/17/2018 Comp. Metabolic Panel (14) 15564 ALKALINE PHOSPHATASE 79 U/L 12/17/2018 Comp. Metabolic Panel (14) 72765 TOTAL BILIRUBIN 0.5 mg/dL 12/17/2018 Comp. Metabolic Panel (14) 86371 SGOT (AST) 34 U/L 12/17/2018 Comp. Metabolic Panel (14) 69562 SGPT (ALT) 40 U/L 12/17/2018 Comp. Metabolic Panel (14) 65606 eGFR (mL/min/1.73m2) 115 12/17/2018 Comp. Metabolic Panel (14) 85164 INTERPRETATION 12/17/2018 Testosterone Serum 723190 TESTOSTERONE 96.8 ng/dL 12/17/2018 Cbc With Differential/Platelet 32464 WBC 5.61 thou/uL 9 Cbc With Differential/Platelet 72903 RBC 5.53 mil/uL 12/17/2018 Cbc With Differential/Platelet 27594 HEMOGLOBIN 15.4 g/dL 12/17/2018 Cbc With Differential/Platelet 66801 HEMATOCRIT 48.1 % 12/17/2018 Cbc With Differential/Platelet 40061 MCV 87.0 fL 12/17/2018 Cbc With Differential/Platelet 93533 MCH 27.8 pg 12/17/2018 Cbc With Differential/Platelet 82266 MCHC 32.0 g/dL 12/17/2018 Cbc With Differential/Platelet 30562 RDW-CV 13.9 % 12/17/2018 Cbc With Differential/Platelet 58064 PLATELET COUNT 294 thou/uL 12/17/2018 Cbc With Differential/Platelet 34170 NEUTROPHIL % 71.2 % 12/17/2018 Cbc With Differential/Platelet 82905 LYMPHOCYTE % 22.2 % 12/17/2018 Cbc With Differential/Platelet 63851 MONOCYTE % 5.4 % 12/17/2018 Cbc With Differential/Platelet 02601 EOS % 0.9 % 12/17/2018 Cbc With Differential/Platelet 93472 BASO % 0.4 % 12/17/2018 Cbc With Differential/Platelet 28793 NEUTROPHIL ABS # 3.99 thou/uL 12/17/2018 Cbc With Differential/Platelet 18656 LYMPH ABS # 1.25 thou/uL 12/17/2018 Cbc With Differential/Platelet 26584 MONOCYTE ABS # 0.30 thou/uL 12/17/2018 Cbc With Differential/Platelet 36244 EOS ABS # 0.05 thou/uL 9 Cbc With Differential/Platelet 79480 BASO ABS # 0.02 thou/uL 12/17/2018 Lipid Panel 21526 CHOLES TEROL 227 mg/dL 12/17/2018 Lipid Panel 50763 TRIGLY CERIDES 229 mg/dL 12/17/2018 Lipid Panel 87346 HDL 41 mg/dL 12/17/2018 Lipid Panel 38359 CHOLES TEROL/HDL 5.54 12/17/2018 Lipid Panel 97345 LDL (C ALCULATED) 140 mg/dL 12/17/2018 Lipid Panel 70213 LDL/HDL 3.41 12/17/2018 Lipid Panel 32235 INTERP RETATION 12/17/2018 Tsh 747820 TSH 1.190 uIU/mL 12/17/2018 Testosterone Serum 976898 TESTOSTERONE 44.1 ng/dL 08/18/2018 Hemoglobin 629126 WBC 7.62 thou/uL 08/17/2018 Hemoglobin 322491 RBC 5.23 mil/uL 08/17/2018 Hemoglobin 634188 HEMOGL OBIN 15.0 g/dL 08/17/2018 Hemoglobin 565551 HEMATO CRIT 45.0 % 08/17/2018 Hemoglobin 498581 MCV 86.0 fL 08/17/2018 Hemoglobin 543110 MCH 28.7 pg 08/17/2018 Hemoglobin 833036 MCHC 33.3 g/dL 08/17/2018 Hemoglobin 633121 RDW-CV 12.9 % 08/17/2018 Hemoglobin 524534 PLATEL ET COUNT 313 thou/uL 08/17/2018 Hematocrit 821892 WBC 7.62 thou/uL 08/17/2018 Hematocrit 291387 RBC 5.23 mil/uL 08/17/2018 Hematocrit 959137 HEMOGL OBIN 15.0 g/dL 08/17/2018 Hematocrit 819966 HEMATO CRIT 45.0 % 08/17/2018 Hematocrit 121893 MCV 86.0 fL 08/17/2018 Hematocrit 868142 MCH 28.7 pg 08/17/2018 Hematocrit 231603 MCHC 33.3 g/dL 08/17/2018 Hematocrit 094829 RDW-CV 12.9 % 08/17/2018 Hematocrit 888266 PLATEL ET COUNT 313 thou/uL 08/17/2018 Culture Mrsa 784635 MRSA CULTURE SEE NOTES 06/21/2018 Comp. Metabolic Panel (14) 63564 GLUCOSE 101 mg/dL 06/18/2018 Comp. Metabolic Panel (14) 94190 BUN 18 mg/dL 06/18/2018 Comp. Metabolic Panel (14) 03276 CREATININE 0.99 mg/dL 06/18/2018 Comp. Metabolic Panel (14) 10710 SODIUM 141 mmol/L 06/18/2018 Comp. Metabolic Panel (14) 74563 POTASSIUM 4.3 mmol/L 06/18/2018 Comp. Metabolic Panel (14) 99688 CHLORIDE 103 mmol/L 06/18/2018 Comp. Metabolic Panel (14) 16260 CARBON DIOXIDE 23 mmol/L 06/18/2018 Comp. Metabolic Panel (14) 23918 CALCIUM 9.8 mg/dL 06/18/2018 Comp. Metabolic Panel (14) 61873 TOTAL PROTEIN 7.1 g/dL 06/18/2018 Comp. Metabolic Panel (14) 92697 ALBUMIN 5.2 g/dL 06/18/2018 Comp. Metabolic Panel (14) 06604 ALKALINE PHOSPHATASE 65 U/L 06/18/2018 Comp. Metabolic Panel (14) 15093 TOTAL BILIRUBIN 0.6 mg/dL 06/18/2018 Comp. Metabolic Panel (14) 64020 SGOT (AST) 21 U/L 06/18/2018 Comp. Metabolic Panel (14) 79844 SGPT (ALT) 24 U/L 06/18/2018 Comp. Metabolic Panel (14) 52744 eGFR (mL/min/1.73m2) 115 06/18/2018 Comp. Metabolic Panel (14) 27882 INTERPRETATION 06/18/2018 Cbc With Differential/Platelet 04289 WBC 4.55 thou/uL 8 Cbc With Differential/Platelet 65295 RBC 5.13 mil/uL 06/18/2018 Cbc With Differential/Platelet 16160 HEMOGLOBIN 14.4 g/dL 06/18/2018 Cbc With Differential/Platelet 42179 HEMATOCRIT 44.1 % 06/18/2018 Cbc With Differential/Platelet 08386 MCV 85.9 fL 06/18/2018 Cbc With Differential/Platelet 44062 MCH 28.1 pg 06/18/2018 Cbc With Differential/Platelet 27257 MCHC 32.7 g/dL 06/18/2018 Cbc With Differential/Platelet 85306 RDW-CV 13.4 % 06/18/2018 Cbc With Differential/Platelet 01338 PLATELET COUNT 287 thou/uL 06/18/2018 Cbc With Differential/Platelet 51265 NEUTROPHIL % 53.9 % 06/18/2018 Cbc With Differential/Platelet 48982 LYMPHOCYTE % 36.1 % 06/18/2018 Cbc With Differential/Platelet 48646 MONOCYTE % 7.4 % 06/18/2018 Cbc With Differential/Platelet 92613 EOS % 1.9 % 06/18/2018 Cbc With Differential/Platelet 15942 BASO % 0.8 % 06/18/2018 Cbc With Differential/Platelet 74166 NEUTROPHIL ABS # 2.45 thou/uL 06/18/2018 Cbc With Differential/Platelet 02073 LYMPH ABS # 1.64 thou/uL 06/18/2018 Cbc With Differential/Platelet 71914 MONOCYTE ABS # 0.34 thou/uL 06/18/2018 Cbc With Differential/Platelet 61562 EOS ABS # 0.09 thou/uL 8 Cbc With Differential/Platelet 23859 BASO ABS # 0.04 thou/uL 06/18/2018 Review [...] Procedure Codes Date THER/PROPH/DIAG INJ SC/IM CPT-4: 95401 12/29/2018 THER/PROPH/DIAG INJ SC/IM CPT-4: 90836 12/16/2018 THER/PROPH/DIAG INJ SC/IM CPT-4: 05818 11/15/2018 THER/PROPH/DIAG INJ SC/IM CPT-4: 57194 09/28/2018 THER/PROPH/DIAG INJ SC/IM CPT-4: 85897 09/16/2018 THER/PROPH/DIAG INJ SC/IM CPT-4: 66571 09/02/2018 THER/PROPH/DIAG INJ SC/IM CPT-4: 84956 08/19/2018 IMMUNIZATION ADMIN CPT- 4: 46323 08/02/2018 FLU VAC NO PRSV 4 VA L 3 YRS+ CPT-4: 65607 08/02/2018 THER/PROPH/DIAG INJ SC/IM CPT-4: 99997 07/15/2018 THER/PROPH/DIAG INJ SC/IM CPT-4: 24876 06/17/2018 THER/PROPH/DIAG INJ SC/IM CPT-4: 67037 05/21/2018 THER/PROPH/DIAG INJ SC/IM CPT-4: 85601 08/03/2015 ROCEPHIN, PER 250 MG CPT-4: J0696 08/03/2015 Vital Signs Date Vital 05/05/2019 Heigh t: Weight: 04/20/2019 Blood Pressure 1: 160/84 Code: 8480-6 BMI: 34.0 Code: 90689-1 Heart Rate 1: 82 bpm Height: 5'7" SpO2: 97% Weight: 216 lbs 13 o z 12/29/2018 Blood Pressure 1: 144/90 Code: 8480-6 BMI: 34.8 Code: 19645-1 Heart Rate 1: 91 bpm Height: 5'7" SpO2: 98% Weight: 222 lbs 12/20/2018 Blood Pressure 1: 124/76 Code: 8480-6 BMI: 35.4 Code: 39636-7 Heart Rate 1: 79 bpm Height: 5'7" SpO2: 99% Weight: 226 lbs 12/16/2018 Blood Pressure 1: 160/90 Code: 8480-6 BMI: 35.4 Code: 69162-1 Heart Rate 1: 90 bpm Height: 5'7" SpO2: 95% Weight: 226 lbs 11/01/2018 Blood Pressure 1: 146/82 Code: 8480-6 BMI: 36.0 Code: 16264-8 Heart Rate 1: 87 bpm Height: 5'7" SpO2: 98% Weight: 230 lbs 09/24/2018 Blood Pressure 1: 140/82 Code: 8480-6 BMI: 36.0 Code: 09348-6 Heart Rate 1: 86 bpm Height: 5'7" SpO2: 98% Temperature: 37.1 (C ) / 98.7 (F) Weight: 230 lbs 08/16/2018 Blood Pressure 1: 148/82 Code: 8480-6 Blood Pressure 2: 157/92 Code: 8480-6 BMI: 35.9 Code: 12347-4 Heart Rate 1: 72 bpm Height: 5'7" SpO2: 96% Weight: 229 lbs 08/02/2018 Blood Pressure 1: 142/86 Code: 8480-6 BMI: 35.2 Code: 45163-4 Heart Rate 1: 101 bpm Height: 5'7" SpO2: 97% Weight: 225 lbs 05/31/2018 Blood Pressure 1: 134/82 Code: 8480-6 BMI: 35.4 Code: 34568-3 Heart Rate 1: 91 bpm Height: 5'7" SpO2: 96% Weight: 226 lbs 05/20/2018 Blood Pressure 1: 160/100 Code: 8480-6 BMI: 35.2 Code: 12192-3 Heart Rate 1: 89 bpm Height: 5'7" SpO2: 98% Weight: 225 lbs 05/10/2018 Blood Pressure 1: 124/70 Code: 8480-6 BMI: 35.1 Code: 96625-7 Heart Rate 1: 93 bpm Height: 5'7" SpO2: 99% Weight: 224 lbs 01/15/2018 Blood Pressure 1: 142/92 Code: 8480-6 BMI: 36.3 Code: 36634-1 Heart Rate 1: 77 bpm Height: 5'7" SpO2: 98% Weight: 232 lbs 12/15/2017 Blood Pressure 1: 156/98 Code: 8480-6 BMI: 36.2 Code: 82147-4 Heart Rate 1: 87 bpm Height: 5'7" [...] eye 01/15/2018 None vision change Quality [facility] 01/15/2018 None vision change Quality [facility] [...] vision 12/15/2017 None vision change [facility] 12/15/2017 None vision change Onset and Resolution sudden in onset 12/15/2017 None vision change Onset of Symptom 3.5 weeks ago 12/15/2017 None vision change Limitation on Activities severely limits vision 12/15/2017 None vision change Triggers n o known associated factors 12/15/2017 None Advance Directives No Advance Directive data Encounters Encounter Performer Loca tion Codes Date 04195 EST. PATIENT, LEVEL IV Diagnosis: Cervicalgia[ICD10: M54.2] Diagnosis: Other fatigue[ICD10: R53.83] Diagnosis: Essential (primary) hypertension[ICD10: I10] Diagnosis: Major depressive disorder, recurrent, moderate[ICD10: F33.1] Sonia Gonzalez MD, [facility] CPT-4: 72540 05/05/2019 ([id number]) 62737 EST. P ATIENT, LEVEL III Diagnosis: Essential (primary) hypertension[ICD10: I10] Diagnosis: Major depressive disorder, recurrent, moderate[ICD10: F33.1] Diagnosis: Dysphagia, pharyngeal phase[ICD10: R13.13] Radha Gonzalez MD, [facility] CPT-4: 51896 04/20/2019 ([id number]) 57290 EST. 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 PATIENT, LEVEL III Diagnosis: Pain in right arm[ICD10: M79.601] Sonia Gonzalez MD, [facility] CPT-4: 54800 12/20/2018 ([id number]) 57189 EST. 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 PATIENT, LEVEL III Diagnosis: Acute upper respiratory infection, unspecified[ICD10: J06.9] Diagnosis: Other allergic rhinitis[ICD10: J30.89] Sonia Gonzalez MD, [facility] CPT-4: 68397 09/24/2018 ([id number]) 06243 EST. 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 P ATIENT, LEVEL IV Diagnosis: Essential (primary) hypertension[ICD10: I10] Diagnosis: Cervicalgia[ICD10: M54.2] Radha Gonzalez MD, [facility] CPT-4: 56829 05/31/2018 ([id number]) 31911 EST. 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 05/05/2019 Appointment: Sonia Potter WPtel: [facility] (30 min) Complex 05/05/2019 Appointment: Radha Gonzalez WPtel: [address] [place], [place] [phone] (15 min) Moderate 05/05/2019 Patient Education: Patient [...] 40mg daily. 04/20/2019 Appointment: Radha Gonzalez WPtel: [facility]5 [facility] (15 min) Moderate 04/20/2019 Patient Education: [...] testosterone injections. 12/29/2018 Appointment: Radha Gonzalez WPtel: [address] [place], [place] [address] (15 min) Moderate 12/29/2018 Patient Education: Patient Medication Summary Completed 12/29/2018 Patient Education: .Cervicalgia Neck Pain Completed 12/29/2018 Patient Education: Patient Medication Summary Completed 12/21/2018 Care Plan: %Hba1C add to blood from 12/17 LOINC : 14414-8 Pending 12/21/2018 Visit Plan: Right arm pain - dayna deformity noted - will refer to ortho - The pt is to use prn antiinflammatories to manage acute pain. The patient is to call the office if the pain is worsening or does not improve. 12/20/2018 Appointment: Sonia Potter WPtel: [facility] (15 min) Moderate 12/20/2018 Patient Education: Patient [...] with testosterone. 12/16/2018 Appointment: Radha Gonzalez WPtel: [facility] (15 min) Moderate 12/16/2018 Patient [...] needed. 11/01/2018 [facility]ment: [phone] ([facility] min) Moderate 11/01/2018 Patient Education: Patient [...] spray. 09/24/2018 [phone] ([facility] min) Moderate 09/24/2018 Patient Education: Patient [...] home. Multiple symptoms - referral to [facility] - appt in September 30, 2018. 08/16/2018 App[facility]ment: [phone] [facility] (15 min) Moderate 08/16/2018 Patient [...] home. Multiple symptoms - referral to [facility] - rashes, hypogonadism, optic neuritis - all points to possible autoimmune syndrome. Spinal stenosis - of thoracic region - pt to talk to Dr. Dunaway about referral to a different specialist for his mid- back. Hypogonadism - continue with testosterone. Flu shot given today in clinic. 08/02/2018 Appointment: [phone] [facility] (15 min) Moderate 08/02/2018 Patient Education: Patient Medication Summary Completed 08/02/2018 Care Plan: Referral Order SNOMED-CT : 107820115 Pending 08/02/2018 Appointment: Injection 07/15/2018 Patient Education: [...] Cervical spine stenosis - referral to [facility] physical therapy. I have also recommended a Referral to Dr. Dunaway. I have called and talked to Dr. Dunaway - he looked at the pt's imaging and agrees that getting the pt in to be seen soon would be a preferred option. 05/31/2018 App[facility]ment: [facility] [phone] [facility] (15 min) Moderate 05/31/2018 Patient Education: Patient Medication Summary Completed 05/31/2018 Care Plan: Referral Order SNOMED-CT : 751879465 Pending 05/31/2018 Care Plan: Referral Order SNOMED-CT : 497030042 Pending 05/31/2018 Appointment: Injection 05/21/2018 Patient Education: Patient Medication Summary Completed 05/21/2018 Care Plan: Referral Order SNOMED-CT : [id number] Pending 05/21/2018 Visit Plan: Cervical and thoracic s tenosis with spinal cord compression -refer for appt with Dr Marr -rx for hydrocodone for pain-start gabapentin at bedtime Soft tissue lesion-left chest-schedule CTfor further evaluation HTN-elevated today-hold adderall-monitor blood pressure 05/20/2018 Appointment: Hannah Simons WPtel: [phone] [phone] [place] (15 min) Moderate 05/20/2018 [...] order this. 05/10/2018 Appointment: Sonia Potter WPtel: [facility] [place] (15 min) Moderate 05/10/2018 Patient Education: Patient Medication Summary Completed 05/10/2018 Visit Plan: Sleep apnea - rx for cp ap - actually autopap was recommended and pt given rx today. HTN - referral to dr. kapoor - pt needs stress testing. 01/15/2018 Appointment: Radha Gonzalez WPtel: [facility] [place] (15 min) Moderate 01/15/2018 Patient Education: Patient Medication Summary Completed 01/15/2018 Care Plan: Referral Order SNOMED-CT : [id number] Pending 01/15/2018 Visit Plan: Well Adult - [...] one month. 12/15/2017 Appointment: Radha Gonzalez WPtel: [facility] New Patient 12/15/2017 Patient Education: Patient Medication Summary Completed 12/15/2017 Care Plan: CHEST X-RAY 2VW FRONTAL&LATL LOINC : 17678-3 Pending 12/15/2017 Appointment: Radha Gonzalez WPtel: [facility] (15 min) Moderate 12/08/2017 Appointment: (S) New Patient 08/13/2015 Visit Plan: steri strip placed on t humb of right hand - antibiotic shot given to patient and rx for keflex 500mg qid x 10 days given to the patient to fill prior to his trip to [place] 08/03/2015 Patient Education: Patient Medication Summary Completed 08/03/2015 Referral: External, Ordering Provider 08/03 Referral info faxed to [place]. Patient informed to be expecting a call from them with appt info Appointment Requested Referral: External, Ordering Provider Referral Appointment Requested Referral: External, Ordering Provider I called today; they will call him to schedule. Completed Referral: Armani Dunaway Referral Appointment Requested Referral: Mayte Kapoor Referral Appointment Requested Referral: [facility] [phone] [facility] [place] Referral Appointment Requested Referral: External, [...] home. Multiple symptoms - referral to [facility] - rashes, hypogonadism, optic neuritis - all [...] home. Multiple symptoms - referral to [facility] - appt in September 30, 2018. . [...] to fill prior to his trip to [place] Prazosin - for night mcrae . Chronic [...] Cervical spine stenosis - referral to [facility] physical therapy. I have also recommended a Referral to Dr. Dunaway. I have called and talked to Dr. Dunaway - he looked at the pt's imaging and agrees that getting the pt in to be seen soon would be a preferred option.
--- OUTSIDE RECORDS SUMMARY | 2020-04-28 00:32 | XMS REPORT | CCD ---
Author Author Nilton Gonzalez Organization [facility] Address [address] [place] [address] Phone Care Team Providers Care Gambling Box Person Name Role Phone PP Unavailable CCM Unavailable Summary Purpose Interface Exchange Family history Brother Diagnosis Age At Onset Alcoholism Unknown Father Diagnosis Age At Onset Hypercholesterolemia Unknown Social History Social History Element Codes Description Effective Dates Employment Unknown Curre ntly unemployed 04/20/2019 Marital status Unknown S chanda 12/15/2017 Number of children Unknown 1 12/15/[address]: 859957507 Never smoker 12/15/[address]: 979589 Currently drinks alcohol <1 per week 12/15/2017 [...] Fill Instructions prazosin 1 mg capsule RxNorm: 536984 1 Capsule(s) PO daily 05/05/2019 06/03/2019 Active paroxetine 40 mg tablet RxNorm: 7080084 1 Tablet(s) PO daily 04/20/2019 05/19/2019 Active Adderall 30 mg tablet RxNorm: 883283 2 Tablet(s) PO daily 04/19/2019 05/18/2019 Active alprazolam 1 mg tablet RxNorm: 913012 1 Tablet(s) PO TID as needed 04/13/2019 06/11/2019 Active hydrocodone 5 mg-fanny taminophen 325 mg tablet RxNorm: 579919 1-2 Tablet(s) PO Q6 a s needed 03/21/2019 No Stop Date Active Adderall 30 mg tablet RxNorm: 276845 2 Tablet(s) PO daily 03/21/2019 04/14/2019 Inactive tramadol 50 mg tablet RxNorm: 619894 1-2 Tablet(s) PO Q6 as needed 03/14/2019 No Stop Date Active hydrocodone 5 mg-fanny taminophen 325 mg tablet RxNorm: 113501 1-2 Tablet(s) PO Q6 a s needed 02/23/2019 03/20/2019 Inactive Adderall 30 mg tablet RxNorm: 347196 2 Tablet(s) PO daily 02/23/2019 03/20/2019 Inactive Adderall 30 mg tablet RxNorm: 826375 2 Tablet(s) PO daily 01/24/2019 02/22/2019 Inactive ketoconazole 2 % top ical cream RxNorm: 598120 APPLY ONE GRAM TOPICA LLY TWICE A DAY 01/12/2019 01/26/2019 In active tramadol 50 mg tablet RxNorm: 562350 1-2 Tablet(s) PO Q6 as needed 01/11/2019 03/13/2019 In active atenolol 50 mg tablet RxNorm: 061473 1.5 Tablet(s) PO BID 12/29/2018 12/23/2019 Active hydrocodone 5 mg-fanny taminophen 325 mg tablet RxNorm: 934698 1-2 Tablet(s) PO Q6 a s needed 12/29/2018 02/22/2019 Inactive Adderall 30 mg tablet RxNorm: 838727 2 Tablet(s) PO daily 12/29/2018 01/23/2019 Inactive hydrocodone 5 mg-fanny taminophen 325 mg tablet RxNorm: 530427 1-2 Tablet(s) PO Q6 a s needed 12/29/2018 12/28/2018 Inactive testosterone cypiona te 200 mg/mL intramuscular oil RxNorm: 0069934 1.25 Milliliter(s) IM 12/29/2018 12/29/2018 Inactive hydrocodone 5 mg-fanny taminophen 325 mg tablet RxNorm: 893962 1 Tablet(s) PO TID IN N 12/28/2018 12/28/2018 In active testosterone cypiona te 200 mg/mL intramuscular oil RxNorm: 3521750 1.25 Milliliter(s) IM 2 x month 12/22/2018 04/12/2019 Inactive gabapentin 300 mg ca psule RxNorm: 903856 1 Capsule(s) PO QID 12/16/2018 12/10/2019 Active testosterone cypiona te 200 mg/mL intramuscular oil RxNorm: 0990232 Milliliter(s) IM 12/16/2018 12/16/2018 In active Voltaren 1 % topical gel RxNorm: 762600 2 Gram(s) APPLY TOPIC ALLY four TIMES A DAY 12/16/2018 01/20/2019 In active trazodone 100 mg tablet RxNorm: 568181 TAKE ONE TABLET BY MOUTH EVERY NIGHT AT BEDTIME 12/07/2018 06/04/2019 Active hydrocodone 5 mg-fanny taminophen 325 mg tablet RxNorm: 548458 1 Tablet(s) PO TID IN N 11/29/2018 12/27/2018 In active Adderall 30 mg tablet RxNorm: 251323 2 Tablet(s) PO daily 11/29/2018 12/28/2018 Inactive clindamycin 1 %-arthur oyl peroxide 5 % topical gel RxNorm: 714563 TOP APPLY TO AFFECTED AREA(S) ON SERNA TWO TIMES A DAY 11/17/2018 No Stop Date Active testosterone cypiona te 200 mg/mL intramuscular oil RxNorm: 4572873 1 Milliliter(s) IM 2 x month 11/17/2018 12/21/2018 Inactive Zorvolex 35 mg capsule RxNorm: 1358780 1 Capsule(s) PO TID as needed for pain 11/15/2018 05/13/2019 Ac tive ketoconazole 2 % top ical cream RxNorm: 669989 APPLY ONE GRAM TOPICA LLY TWICE A DAY 11/15/2018 11/29/2018 In active testosterone cypiona te 200 mg/mL intramuscular oil RxNorm: 9108894 1 Milliliter(s) IM 11/15/2018 11/14/2018 Inactive hydrocodone 5 mg-fanny taminophen 325 mg tablet RxNorm: 542851 1 Tablet(s) PO TID IN N 11/02/2018 11/28/2018 In active Singulair 10 mg tablet RxNorm: 682908 1 Tablet(s) PO daily 11/01/2018 07/28/2019 Active testosterone cypiona te 200 mg/mL intramuscular oil RxNorm: 2946018 1 Milliliter(s) IM 2 x month 11/01/2018 11/16/2018 Inactive Adderall 30 mg tablet RxNorm: 150018 2 Tablet(s) PO daily 10/29/2018 11/27/2018 Inactive gabapentin 300 mg ca psule RxNorm: 903742 1 Capsule(s) PO BID m ay take TID 10/19/2018 12/15/2018 In active gabapentin 300 mg ca psule RxNorm: 700645 1 Capsule(s) PO BID m ay take TID 10/19/2018 10/18/2018 In active alprazolam 1 mg tablet RxNorm: 460472 1 Tablet(s) PO TID as needed 10/15/2018 04/19/2019 Inactive testosterone cypiona te 200 mg/mL intramuscular oil RxNorm: 507954 Milliliter(s) IM 09/28/2018 09/28/2018 In active pravastatin 40 mg ta blet RxNorm: 820512 TAKE ONE TABLET BY [facility] EVERY NIGHT AT BEDTIME 09/27/2018 09/21/2019 Active Tamiflu 75 mg capsule RxNorm: 330965 1 Capsule(s) PO BID 09/24/2018 09/28/2018 Inactive Adderall 30 mg tablet RxNorm: 252015 2 Tablet(s) PO daily 09/20/2018 10/19/2018 Inactive hydrocodone 5 mg-fanny taminophen 325 mg tablet RxNorm: 232847 1 Tablet(s) PO TID IN N 09/20/2018 11/01/2018 In active testosterone cypiona te 200 mg/mL intramuscular oil RxNorm: 748445 Milliliter(s) IM 09/16/2018 09/16/2018 In active testosterone cypiona te 200 mg/mL intramuscular oil RxNorm: 739779 1 Milliliter(s) IM 09/02/2018 09/02/2018 Inactive testosterone cypiona te 200 mg/mL intramuscular oil RxNorm: 130616 Milliliter(s) IM 08/19/2018 08/19/2018 In active Adderall 30 mg tablet RxNorm: 047585 2 Tablet(s) PO daily 08/18/2018 09/16/2018 Inactive tramadol 50 mg tablet RxNorm: 081309 1-2 Tablet(s) PO Q6 as needed 08/18/2018 01/12/2019 In active Dexilant 60 mg capsu le, delayed release RxNorm: 030466 1 Capsule(s) PO BID 08/17/2018 08/11/2019 Ac tive ketoconazole 2 % top ical cream RxNorm: 857353 1 Gram(s) TOP BID 08/17/2018 08/26/2018 Inactive Zorvolex 35 mg capsule RxNorm: 2902707 1 Capsule(s) PO TID as needed for pain 08/17/2018 08/16/2018 In active atenolol 50 mg tablet RxNorm: 525991 1 Tablet(s) PO BID 08/17/2018 12/28/2018 Inactive Zorvolex 35 mg capsule RxNorm: 3204146 1 Capsule(s) PO TID as needed for pain 08/17/2018 11/14/2018 In active ketoconazole 2 % top ical cream RxNorm: 962993 1 Gram(s) TOP BID 08/02/2018 08/11/2018 Inactive hydrocortisone 2.5 % topical cream RxNorm: 046599 1 Application TOP BID 07/21/2018 No Stop Date Active Adderall 30 mg tablet RxNorm: 727470 2 Tablet(s) PO daily 07/20/2018 08/17/2018 Inactive testosterone cypiona te 200 mg/mL intramuscular oil RxNorm: 331067 Milliliter(s) IM 07/15/2018 07/15/2018 In active alprazolam 1 mg tablet RxNorm: 374734 1 Tablet(s) PO TID as needed 07/12/2018 09/07/2018 Inactive hydrocodone 5 mg-fanny taminophen 325 mg tablet RxNorm: 996054 1 Tablet(s) PO TID IN N 06/30/2018 09/19/2018 In active pravastatin 40 mg ta blet RxNorm: 865030 1 Tablet(s) PO QHS 06/18/2018 09/15/2018 Inactive Adderall 30 mg tablet RxNorm: 366896 2 Tablet(s) PO daily 06/18/2018 07/17/2018 Inactive testosterone cypiona te 200 mg/mL intramuscular oil RxNorm: 153553 Milliliter(s) IM 06/17/2018 06/17/2018 In active Voltaren 1 % topical gel RxNorm: 116005 APPLY TOPICALLY TWO T IMES A DAY 06/16/2018 07/21/2018 In active Vitamin D2 50,000 un it capsule RxNorm: 7477071 1 Capsule(s) PO QW 05/21/2018 No Stop Date Active Adderall 30 mg tablet RxNorm: 282085 2 Tablet(s) PO daily 05/21/2018 06/17/2018 Inactive testosterone cypiona te 200 mg/mL intramuscular oil RxNorm: 235624 Milliliter(s) IM 05/21/2018 05/21/2018 In active testosterone cypiona te 200 mg/mL intramuscular oil RxNorm: 9858989 1 Milliliter(s) IM monthly 05/20/2018 09/16/2018 Inactive testosterone cypiona te 200 mg/mL intramuscular oil RxNorm: 267342 1 Milliliter(s) IM monthly 05/20/2018 05/19/2018 Inactive hydrocodone 5 mg-fanny taminophen 325 mg tablet RxNorm: 154006 1 Tablet(s) PO TID IN N 05/20/2018 06/29/2018 In active Vitamin D2 50,000 un it capsule RxNorm: 9498640 1 Capsule(s) PO QW 05/18/2018 05/20/2018 Inactive triamcinolone aceton destin 0.025 % topical cream RxNorm: 9159452 1 Application TOP BI D 05/13/2018 No Stop Date Active Dexilant 60 mg capsu le, delayed release RxNorm: 632853 1 Capsule(s) PO BID 05/13/2018 08/16/2018 In active Zorvolex 35 mg capsule RxNorm: 2883886 1 Capsule(s) PO TID as needed for pain 05/12/2018 08/09/2018 In active Voltaren 1 % topical gel RxNorm: 115138 1 Application TOP BID 05/12/2018 06/15/2018 Inactive acyclovir 400 mg tablet RxNorm: 832527 1 Tablet(s) PO TID as needed take at ons et of symptoms of cold sores x 5 days 05/10/2018 No Stop Date Active ProAir HFA 90 mcg/ac tuation aerosol inhaler RxNorm: 625112 1 Puff(s) INH QID as needed 05/10/2018 No Stop Date Active baclofen 20 mg tablet RxNorm: 669566 1 Tablet(s) PO TID as needed muscle spas ms 05/10/2018 06/08/2018 In active Singulair 10 mg tablet RxNorm: 906462 1 Tablet(s) PO daily 05/10/2018 08/07/2018 Inactive atenolol 50 mg tablet RxNorm: 808018 1 Tablet(s) PO BID 05/10/2018 08/07/2018 Inactive triamcinolone aceton destin 0.025 % topical cream RxNorm: 4980424 1 Application TOP BI D 05/10/2018 05/12/2018 In active paroxetine 20 mg tablet RxNorm: 7867392 2 Tablet(s) PO QHS 05/10/2018 04/19/2019 Inactive tramadol 50 mg tablet RxNorm: 988961 1 Tablet(s) PO TID as needed 05/10/2018 05/19/2018 Inactive Dexilant 60 mg capsu le, delayed release RxNorm: 757669 1 Capsule(s) PO daily 05/10/2018 05/12/2018 In active alprazolam 1 mg tablet RxNorm: 102832 1 Tablet(s) PO TID as needed 05/10/2018 08/06/2018 Inactive trazodone 100 mg tablet RxNorm: 627302 1 Tablet(s) PO QHS 05/10/2018 11/05/2018 Inactive cyclobenzaprine 10 m g tablet RxNorm: 728970 1 Tablet(s) PO TID as needed muscle spasms 05/07/2018 07/12/2018 Inactive trazodone 100 mg tablet RxNorm: 280520 1 Tablet(s) PO QHS 05/07/2018 05/09/2018 Inactive Adderall 30 mg tablet RxNorm: 920159 2 Tablet(s) PO daily 04/19/2018 05/18/2018 Inactive alprazolam 1 mg tablet RxNorm: 517574 1 Tablet(s) PO BID 04/19/2018 05/09/2018 Inactive Adderall 30 mg tablet RxNorm: 397329 2 Tablet(s) PO daily 03/26/2018 04/18/2018 Inactive paroxetine 20 mg tablet RxNorm: 4119274 2 Tablet(s) PO QHS 03/15/2018 05/09/2018 Inactive Adderall 30 mg tablet RxNorm: 398350 2 Tablet(s) PO daily 02/25/2018 03/25/2018 Inactive cyclobenzaprine 10 m g tablet RxNorm: 849799 1 Tablet(s) PO TID as needed muscle spasms 02/22/2018 05/06/2018 Inactive tramadol 50 mg tablet RxNorm: 563274 1 Tablet(s) PO TID as needed 02/22/2018 03/07/2018 Inactive tramadol 50 mg tablet RxNorm: 971864 1 Tablet(s) PO TID as needed 02/22/2018 02/21/2018 Inactive trazodone 100 mg tablet RxNorm: 942878 1 Tablet(s) PO QHS 02/03/2018 05/03/2018 Inactive trazodone 100 mg tablet RxNorm: 260806 1 Tablet(s) PO QHS 02/03/2018 02/02/2018 Inactive Adderall 30 mg tablet RxNorm: 274332 2 Tablet(s) PO daily 01/27/2018 02/18/2018 Inactive acyclovir 400 mg tablet RxNorm: 781360 1 Tablet(s) PO TID as needed take at ons et of symptoms of cold sores x 5 days 01/15/2018 05/09/2018 Inactive Bactrim DS 800 mg-16 0 mg tablet RxNorm: 832002 1 Tablet(s) PO BID 01/11/2018 01/17/2018 Inactive Bactrim DS 800 mg-16 0 mg tablet RxNorm: 700580 1 Tablet(s) PO BID 01/11/2018 01/10/2018 Inactive Dexilant 60 mg capsu le, delayed release RxNorm: 106430 1 Capsule(s) PO daily 12/23/2017 05/09/2018 In active Dexilant 60 mg capsu le, delayed release RxNorm: 923029 1 Capsule(s) PO daily 12/23/2017 12/22/2017 In active atenolol 50 mg tablet RxNorm: 998979 1 Tablet(s) PO BID 12/15/2017 05/09/2018 Inactive alprazolam 1 mg tablet RxNorm: 657488 1-1.5 Tablet(s) PO daily 12/15/2017 04/18/2018 Inactive ceftriaxone 500 mg s olution for injection RxNorm: 7609513 Inj 08/03/2015 08/03/2015 Inactive paroxetine 20 mg tablet RxNorm: 3738798 2 Tablet(s) PO QHS 08/01/2015 10/29/2015 Inactive pravastatin 40 mg ta blet RxNorm: 705659 1/2 Tablet(s) PO QHS 08/01/2015 12/14/2017 Inactive Trazadone 100mg 100 mg RxNorm: 1 PO daily 08/01/2015 11/27/2015 Inactive Trazadone 100mg 100 mg RxNorm: 1 PO daily 08/01/2015 05/04/2018 Inactive atenolol 50 mg tablet RxNorm: 009878 1 Tablet(s) PO daily 08/01/2015 10/29/2015 Inactive ibuprofen 800 mg tablet RxNorm: 873126 1 Tablet(s) PO BID -TID No Start Date Active Fish Oil 360 mg-1,20 0 mg capsule RxNorm: 145797 1 Capsule(s) PO BID No Start Date Active Zyrtec 10 mg tablet RxNorm: 5850376 1 Tablet(s) PO daily No Start Date Active pravastatin 40 mg ta blet RxNorm: 705876 1/2 Tablet(s) PO QHS No Start Date 07/31/2015 Inactive Benadryl Allergy 25 mg tablet RxNorm: 3769675 1 Tablet(s) PO daily No Start Date 07/19/2018 Inactive Adderall 30 mg tablet RxNorm: 120575 2 Tablet(s) PO daily No Start Date 01/26/2018 Inactive Aspirin Low Dose 81 mg tablet,delayed release RxNorm: 139290 1 Tablet(s) PO BID No Start Date 07/19/2018 Inactive Singulair 10 mg tablet RxNorm: 057237 1 Tablet(s) PO daily No Start Date 05/09/2018 Inactive cyclobenzaprine 10 m g tablet RxNorm: 329791 1 Tablet(s) PO TID as needed muscle spasms No Start Date 02/21/2018 Inactive Trazadone 100mg 100 mg RxNorm: 1 PO daily No Start Date 07/31/2015 Inactive clindamycin 1 %-arthur oyl peroxide 5 % topical gel RxNorm: 485721 TOP APPLY TO AFFECTED AREA(S) ON SERNA TWO TIMES A DAY No Start Date 11/16/2018 Inactive hydrocortisone 2.5 % topical cream RxNorm: 456232 1 Application TOP BID No Start Date 07/20/2018 Inactive alprazolam 1 mg tablet RxNorm: 592457 2 Tablet(s) PO daily No Start Date 12/14/2017 Inactive tramadol 50 mg tablet RxNorm: 411997 1-2 Tablet(s) PO Q6 as needed No Start Date 08/17/2018 Inactive Vitamin D2 50,000 un it capsule RxNorm: 3336929 1 Capsule(s) PO QW No Start Date 05/17/2018 Inactive pantoprazole 40 mg t ablet,delayed release RxNorm: 606004 1 Tablet(s) PO BID No Start Date 12/22/2017 Inactive atenolol 50 mg tablet RxNorm: 926744 1 Tablet(s) PO daily No Start Date 07/31/2015 Inactive paroxetine 20 mg tablet RxNorm: 370877 2 Tablet(s) PO QHS No Start Date 07/31/2015 Inactive Medication Administered Medication Codes Instruc tions Start Date Status testosterone cypionate 200 mg/mL intramuscular oil RxNorm: 7579277 1.25Milliliter 12/29/2018 No longer Active testosterone cypionate 200 mg/mL intramuscular oil RxNorm: 1672971 Milliliter 12/16/2018 No longer Active testosterone cypionate 200 mg/mL intramuscular oil RxNorm: 9070041 1Milliliter 11/15/2018 No longer Active testosterone cypionate 200 mg/mL intramuscular oil RxNorm: 130033 Milliliter 09/28/2018 No longer Active testosterone cypionate 200 mg/mL intramuscular oil RxNorm: 106831 Milliliter 09/16/2018 No longer Active testosterone cypionate 200 mg/mL intramuscular oil RxNorm: 293381 1Milliliter 09/02/2018 No longer Active testosterone cypionate 200 mg/mL intramuscular oil RxNorm: 377160 Milliliter 08/19/2018 No longer Active testosterone cypionate 200 mg/mL intramuscular oil RxNorm: 375155 Milliliter 07/15/2018 No longer Active testosterone cypionate 200 mg/mL intramuscular oil RxNorm: 413890 Milliliter 06/17/2018 No longer Active testosterone cypionate 200 mg/mL intramuscular oil RxNorm: 197547 Milliliter 05/21/2018 No longer Active ceftriaxone 500 mg solution for injection RxNorm: 7532213 08/03/2015 No longer A ctive Immunizations Vaccine [...] Code Result Date Comp. Metabolic Panel (14) 44714 GLUCOSE 117 mg/dL 12/17/2018 Comp. Metabolic Panel (14) 42374 BUN 17 mg/dL 12/17/2018 Comp. Metabolic Panel (14) 89943 CREATININE 0.99 mg/dL 12/17/2018 Comp. Metabolic Panel (14) 95695 SODIUM 137 mmol/L 12/17/2018 Comp. Metabolic Panel (14) 20329 POTASSIUM 4.6 mmol/L 12/17/2018 Comp. Metabolic Panel (14) 21984 CHLORIDE 102 mmol/L 12/17/2018 Comp. Metabolic Panel (14) 13947 CARBON DIOXIDE 21 mmol/L 12/17/2018 Comp. Metabolic Panel (14) 94671 CALCIUM 9.4 mg/dL 12/17/2018 Comp. Metabolic Panel (14) 18418 TOTAL PROTEIN 7.5 g/dL 12/17/2018 Comp. Metabolic Panel (14) 45447 ALBUMIN 5.1 g/dL 12/17/2018 Comp. Metabolic Panel (14) 09535 ALKALINE PHOSPHATASE 79 U/L 12/17/2018 Comp. Metabolic Panel (14) 65435 TOTAL BILIRUBIN 0.5 mg/dL 12/17/2018 Comp. Metabolic Panel (14) 49487 SGOT (AST) 34 U/L 12/17/2018 Comp. Metabolic Panel (14) 47550 SGPT (ALT) 40 U/L 12/17/2018 Comp. Metabolic Panel (14) 02395 eGFR (mL/min/1.73m2) 115 12/17/2018 Comp. Metabolic Panel (14) 83457 INTERPRETATION 12/17/2018 Testosterone Serum 357967 TESTOSTERONE 96.8 ng/dL 12/17/2018 Cbc With Differential/Platelet 91831 WBC 5.61 thou/uL 9 Cbc With Differential/Platelet 18184 RBC 5.53 mil/uL 12/17/2018 Cbc With Differential/Platelet 72973 HEMOGLOBIN 15.4 g/dL 12/17/2018 Cbc With Differential/Platelet 20667 HEMATOCRIT 48.1 % 12/17/2018 Cbc With Differential/Platelet 69050 MCV 87.0 fL 12/17/2018 Cbc With Differential/Platelet 34503 MCH 27.8 pg 12/17/2018 Cbc With Differential/Platelet 51661 MCHC 32.0 g/dL 12/17/2018 Cbc With Differential/Platelet 93827 RDW-CV 13.9 % 12/17/2018 Cbc With Differential/Platelet 00836 PLATELET COUNT 294 thou/uL 12/17/2018 Cbc With Differential/Platelet 62705 NEUTROPHIL % 71.2 % 12/17/2018 Cbc With Differential/Platelet 27012 LYMPHOCYTE % 22.2 % 12/17/2018 Cbc With Differential/Platelet 65527 MONOCYTE % 5.4 % 12/17/2018 Cbc With Differential/Platelet 48685 EOS % 0.9 % 12/17/2018 Cbc With Differential/Platelet 06990 BASO % 0.4 % 12/17/2018 Cbc With Differential/Platelet 58168 NEUTROPHIL ABS # 3.99 thou/uL 12/17/2018 Cbc With Differential/Platelet 93620 LYMPH ABS # 1.25 thou/uL 12/17/2018 Cbc With Differential/Platelet 41903 MONOCYTE ABS # 0.30 thou/uL 12/17/2018 Cbc With Differential/Platelet 30212 EOS ABS # 0.05 thou/uL 9 Cbc With Differential/Platelet 82661 BASO ABS # 0.02 thou/uL 12/17/2018 Lipid Panel 91156 CHOLES TEROL 227 mg/dL 12/17/2018 Lipid Panel 03996 TRIGLY CERIDES 229 mg/dL 12/17/2018 Lipid Panel 34206 HDL 41 mg/dL 12/17/2018 Lipid Panel 97316 CHOLES TEROL/HDL 5.54 12/17/2018 Lipid Panel 03166 LDL (C ALCULATED) 140 mg/dL 12/17/2018 Lipid Panel 78887 LDL/HDL 3.41 12/17/2018 Lipid Panel 08297 INTERP RETATION 12/17/2018 Tsh 801265 TSH 1.190 uIU/mL 12/17/2018 Testosterone Serum 811893 TESTOSTERONE 44.1 ng/dL 08/18/2018 Hemoglobin 159183 WBC 7.62 thou/uL 08/17/2018 Hemoglobin 922950 RBC 5.23 mil/uL 08/17/2018 Hemoglobin 760842 HEMOGL OBIN 15.0 g/dL 08/17/2018 Hemoglobin 704044 HEMATO CRIT 45.0 % 08/17/2018 Hemoglobin 858019 MCV 86.0 fL 08/17/2018 Hemoglobin 661734 MCH 28.7 pg 08/17/2018 Hemoglobin 739359 MCHC 33.3 g/dL 08/17/2018 Hemoglobin 350471 RDW-CV 12.9 % 08/17/2018 Hemoglobin 347611 PLATEL ET COUNT 313 thou/uL 08/17/2018 Hematocrit 853024 WBC 7.62 thou/uL 08/17/2018 Hematocrit 190549 RBC 5.23 mil/uL 08/17/2018 Hematocrit 179645 HEMOGL OBIN 15.0 g/dL 08/17/2018 Hematocrit 251032 HEMATO CRIT 45.0 % 08/17/2018 Hematocrit 267867 MCV 86.0 fL 08/17/2018 Hematocrit 663507 MCH 28.7 pg 08/17/2018 Hematocrit 387133 MCHC 33.3 g/dL 08/17/2018 Hematocrit 082464 RDW-CV 12.9 % 08/17/2018 Hematocrit 418495 PLATEL ET COUNT 313 thou/uL 08/17/2018 Culture Mrsa 270293 MRSA CULTURE SEE NOTES 06/21/2018 Comp. Metabolic Panel (14) 68516 GLUCOSE 101 mg/dL 06/18/2018 Comp. Metabolic Panel (14) 73954 BUN 18 mg/dL 06/18/2018 Comp. Metabolic Panel (14) 03808 CREATININE 0.99 mg/dL 06/18/2018 Comp. Metabolic Panel (14) 18923 SODIUM 141 mmol/L 06/18/2018 Comp. Metabolic Panel (14) 46954 POTASSIUM 4.3 mmol/L 06/18/2018 Comp. Metabolic Panel (14) 09561 CHLORIDE 103 mmol/L 06/18/2018 Comp. Metabolic Panel (14) 83861 CARBON DIOXIDE 23 mmol/L 06/18/2018 Comp. Metabolic Panel (14) 54054 CALCIUM 9.8 mg/dL 06/18/2018 Comp. Metabolic Panel (14) 67878 TOTAL PROTEIN 7.1 g/dL 06/18/2018 Comp. Metabolic Panel (14) 87785 ALBUMIN 5.2 g/dL 06/18/2018 Comp. Metabolic Panel (14) 22026 ALKALINE PHOSPHATASE 65 U/L 06/18/2018 Comp. Metabolic Panel (14) 11412 TOTAL BILIRUBIN 0.6 mg/dL 06/18/2018 Comp. Metabolic Panel (14) 83410 SGOT (AST) 21 U/L 06/18/2018 Comp. Metabolic Panel (14) 53326 SGPT (ALT) 24 U/L 06/18/2018 Comp. Metabolic Panel (14) 46970 eGFR (mL/min/1.73m2) 115 06/18/2018 Comp. Metabolic Panel (14) 82767 INTERPRETATION 06/18/2018 Cbc With Differential/Platelet 40357 WBC 4.55 thou/uL 8 Cbc With Differential/Platelet 07416 RBC 5.13 mil/uL 06/18/2018 Cbc With Differential/Platelet 85381 HEMOGLOBIN 14.4 g/dL 06/18/2018 Cbc With Differential/Platelet 45804 HEMATOCRIT 44.1 % 06/18/2018 Cbc With Differential/Platelet 37198 MCV 85.9 fL 06/18/2018 Cbc With Differential/Platelet 90652 MCH 28.1 pg 06/18/2018 Cbc With Differential/Platelet 88584 MCHC 32.7 g/dL 06/18/2018 Cbc With Differential/Platelet 52064 RDW-CV 13.4 % 06/18/2018 Cbc With Differential/Platelet 57460 PLATELET COUNT 287 thou/uL 06/18/2018 Cbc With Differential/Platelet 56927 NEUTROPHIL % 53.9 % 06/18/2018 Cbc With Differential/Platelet 04100 LYMPHOCYTE % 36.1 % 06/18/2018 Cbc With Differential/Platelet 64809 MONOCYTE % 7.4 % 06/18/2018 Cbc With Differential/Platelet 46977 EOS % 1.9 % 06/18/2018 Cbc With Differential/Platelet 59676 BASO % 0.8 % 06/18/2018 Cbc With Differential/Platelet 76441 NEUTROPHIL ABS # 2.45 thou/uL 06/18/2018 Cbc With Differential/Platelet 80583 LYMPH ABS # 1.64 thou/uL 06/18/2018 Cbc With Differential/Platelet 83281 MONOCYTE ABS # 0.34 thou/uL 06/18/2018 Cbc With Differential/Platelet 08670 EOS ABS # 0.09 thou/uL 8 Cbc With Differential/Platelet 50820 BASO ABS # 0.04 thou/uL 06/18/2018 Review [...] Procedure Codes Date THER/PROPH/DIAG INJ SC/IM CPT-4: 15356 12/29/2018 THER/PROPH/DIAG INJ SC/IM CPT-4: 52275 12/16/2018 THER/PROPH/DIAG INJ SC/IM CPT-4: 44750 11/15/2018 THER/PROPH/DIAG INJ SC/IM CPT-4: 33280 09/28/2018 THER/PROPH/DIAG INJ SC/IM CPT-4: 99708 09/16/2018 THER/PROPH/DIAG INJ SC/IM CPT-4: 90348 09/02/2018 THER/PROPH/DIAG INJ SC/IM CPT-4: 73907 08/19/2018 IMMUNIZATION ADMIN CPT- 4: 54068 08/02/2018 FLU VAC NO PRSV 4 VA L 3 YRS+ CPT-4: 08828 08/02/2018 THER/PROPH/DIAG INJ SC/IM CPT-4: 92614 07/15/2018 THER/PROPH/DIAG INJ SC/IM CPT-4: 02163 06/17/2018 THER/PROPH/DIAG INJ SC/IM CPT-4: 35284 05/21/2018 THER/PROPH/DIAG INJ SC/IM CPT-4: 45147 08/03/2015 ROCEPHIN, PER 250 MG CPT-4: J0696 08/03/2015 Vital Signs Date Vital 05/05/2019 Heigh t: Weight: 04/20/2019 Blood Pressure 1: 160/84 Code: 8480-6 BMI: 34.0 Code: 42744-8 Heart Rate 1: 82 bpm Height: 5'7" SpO2: 97% Weight: 216 lbs 13 o z 12/29/2018 Blood Pressure 1: 144/90 Code: 8480-6 BMI: 34.8 Code: 94398-4 Heart Rate 1: 91 bpm Height: 5'7" SpO2: 98% Weight: 222 lbs 12/20/2018 Blood Pressure 1: 124/76 Code: 8480-6 BMI: 35.4 Code: 62772-5 Heart Rate 1: 79 bpm Height: 5'7" SpO2: 99% Weight: 226 lbs 12/16/2018 Blood Pressure 1: 160/90 Code: 8480-6 BMI: 35.4 Code: 70457-4 Heart Rate 1: 90 bpm Height: 5'7" SpO2: 95% Weight: 226 lbs 11/01/2018 Blood Pressure 1: 146/82 Code: 8480-6 BMI: 36.0 Code: 97959-7 Heart Rate 1: 87 bpm Height: 5'7" SpO2: 98% Weight: 230 lbs 09/24/2018 Blood Pressure 1: 140/82 Code: 8480-6 BMI: 36.0 Code: 41388-9 Heart Rate 1: 86 bpm Height: 5'7" SpO2: 98% Temperature: 37.1 (C ) / 98.7 (F) Weight: 230 lbs 08/16/2018 Blood Pressure 1: 148/82 Code: 8480-6 Blood Pressure 2: 157/92 Code: 8480-6 BMI: 35.9 Code: 89933-8 Heart Rate 1: 72 bpm Height: 5'7" SpO2: 96% Weight: 229 lbs 08/02/2018 Blood Pressure 1: 142/86 Code: 8480-6 BMI: 35.2 Code: 96438-9 Heart Rate 1: 101 bpm Height: 5'7" SpO2: 97% Weight: 225 lbs 05/31/2018 Blood Pressure 1: 134/82 Code: 8480-6 BMI: 35.4 Code: 19544-9 Heart Rate 1: 91 bpm Height: 5'7" SpO2: 96% Weight: 226 lbs 05/20/2018 Blood Pressure 1: 160/100 Code: 8480-6 BMI: 35.2 Code: 18715-6 Heart Rate 1: 89 bpm Height: 5'7" SpO2: 98% Weight: 225 lbs 05/10/2018 Blood Pressure 1: 124/70 Code: 8480-6 BMI: 35.1 Code: 12121-4 Heart Rate 1: 93 bpm Height: 5'7" SpO2: 99% Weight: 224 lbs 01/15/2018 Blood Pressure 1: 142/92 Code: 8480-6 BMI: 36.3 Code: 12681-7 Heart Rate 1: 77 bpm Height: 5'7" SpO2: 98% Weight: 232 lbs 12/15/2017 Blood Pressure 1: 156/98 Code: 8480-6 BMI: 36.2 Code: 01103-4 Heart Rate 1: 87 bpm Height: 5'7" [...] eye 01/15/2018 None vision change Quality ac [place] 01/15/2018 None vision change Quality lo ss [...] vision 12/15/2017 None vision change Quality ac [place] 12/15/2017 None vision change Onset and Resolution sudden in onset 12/15/2017 None vision change Onset of Symptom 3.5 weeks ago 12/15/2017 None vision change Limitation on Activities severely limits vision 12/15/2017 None vision change Triggers n o known associated factors 12/15/2017 None Advance Directives No Advance Directive data Encounters Encounter Performer Loca tion Codes Date 42353 EST. PATIENT, LEVEL IV Diagnosis: Cervicalgia[ICD10: M54.2] Diagnosis: Other fatigue[ICD10: R53.83] Diagnosis: Essential (primary) hypertension[ICD10: I10] Diagnosis: Major depressive disorder, recurrent, moderate[ICD10: F33.1] Sonia Gonzalez MD, [facility] CPT-4: 52034 05/05/2019 ([id number]) 34023 EST. P ATIENT, LEVEL III Diagnosis: Essential (primary) hypertension[ICD10: I10] Diagnosis: Major depressive disorder, recurrent, moderate[ICD10: F33.1] Diagnosis: Dysphagia, pharyngeal phase[ICD10: R13.13] Radha Gonzalez MD, [facility] CPT-4: 10925 04/20/2019 ([id number]) 15173 EST. 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 PATIENT, LEVEL III Diagnosis: Pain in right arm[ICD10: M79.601] Sonia Gonzalez MD, [facility] CPT-4: 13406 12/20/2018 ([id number]) 09232 EST. 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 PATIENT, LEVEL III Diagnosis: Acute upper respiratory infection, unspecified[ICD10: J06.9] Diagnosis: Other allergic rhinitis[ICD10: J30.89] Sonia Gonzalez MD, [facility] CPT-4: 78920 09/24/2018 ([id number]) 37365 EST. 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 P ATIENT, LEVEL IV Diagnosis: Essential (primary) hypertension[ICD10: I10] Diagnosis: Cervicalgia[ICD10: M54.2] Radha Gonzalez MD, [facility] CPT-4: 48131 05/31/2018 ([id number]) 37794 EST. 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 05/05/2019 Appointment: Sonia Potter WPtel: [facility] (30 min) Complex 05/05/2019 Appointment: Radha Gonzalez WPtel: [address] [place], [place] [phone] (15 min) Moderate 05/05/2019 Patient Education: Patient [...] 40mg daily. 04/20/2019 Appointment: Radha Gonzalez WPtel: [facility] (15 min) Moderate 04/20/2019 Patient Education: Patient [...] testosterone injections. 12/29/2018 Appointment: Radha Gonzalez WPtel: [address] [place], [place] [address] (15 min) Moderate 12/29/2018 Patient Education: Patient Medication Summary Completed 12/29/2018 Patient Education: .Cervicalgia Neck Pain Completed 12/29/2018 Patient Education: Patient Medication Summary Completed 12/21/2018 Care Plan: %Hba1C add to blood from 12/17 LOINC : 53763-5 Pending 12/21/2018 Visit Plan: Right arm pain - dayna deformity noted - will refer to ortho - The pt is to use prn antiinflammatories to manage acute pain. The patient is to call the office if the pain is worsening or does not improve. 12/20/2018 Appointment: Sonia Potter WPtel: [facility] (15 min) Moderate 12/20/2018 Patient Education: Patient [...] with testosterone. 12/16/2018 Appointment: Radha Gonzalez WPtel: [facility] (15 min) Moderate 12/16/2018 Patient Education: Patient [...] needed. 11/01/2018 Appointment: [phone] (15 min) Moderate 11/01/2018 Patient Education: Patient [...] spray. 09/24/2018 App[facility]ment: [phone] (15 min) Moderate 09/24/2018 Patient Education: Patient [...] Multiple symptoms - referral to [facility] - appt in September 30, 2018. 08/16/2018 Appointment: [facility] Gonzalez [phone] (15 min) Moderate 08/16/2018 Patient Education: [...] Multiple symptoms - referral to [facility] - rashes, hypogonadism, optic neuritis - all points to possible autoimmune syndrome. Spinal stenosis - of thoracic region - pt to talk to Dr. Dunaway about referral to a different specialist for his mid- back. Hypogonadism - continue with testosterone. Flu shot given today in clinic. 08/02/2018 Appointment: Radha Gonzalez [facility]el[phone] [facility] (15 min) Moderate 08/02/2018 Patient Education: Patient Medication Summary Completed 08/02/2018 Care Plan: Referral Order SNOMED-CT : [id number] Pending 08/02/2018 Appointment: Injection 07/15/2018 Patient Education: [...] home. Cervical spine stenosis - referral to [facility] physical therapy. I have also recommended a Referral to Dr. Dunaway. I have called and talked to Dr. Dunaway - he looked at the pt's imaging and agrees that getting the pt in to be seen soon would be a preferred option. 05/31/2018 Appointment: Radha Gonzalez [facility]el[phone] [facility] (15 min) Moderate 05/31/2018 Patient Education: Patient Medication Summary Completed 05/31/2018 Care Plan: Referral Order SNOMED-CT : [id number] Pending 05/31/2018 Care Plan: Referral Order SNOMED-CT : [id number] Pending 05/31/2018 Appointment: Injection 05/21/2018 Patient Education: Patient Medication Summary Completed 05/21/2018 Care Plan: Referral Order SNOMED-CT : [id number] Pending 05/21/2018 Visit Plan: Cervical and thoracic s tenosis with spinal cord compression -refer for appt with Dr Marr -rx for hydrocodone for pain-start gabapentin at bedtime Soft tissue lesion-left chest-schedule CTfor further evaluation HTN-elevated today-hold adderall-monitor blood pressure 05/20/2018 Appointment: Hannah Simons WPtel: [phone] [phone] [place] (15 min) Moderate 05/20/2018 Patient [...] order this. 05/10/2018 Appointment: Sonia Potter WPtel: [facility] [place] (15 min) Moderate 05/10/2018 Patient Education: Patient Medication Summary Completed 05/10/2018 Visit Plan: Sleep apnea - rx for cp ap - actually autopap was recommended and pt given rx today. HTN - referral to dr. kapoor - pt needs stress testing. 01/15/2018 Appointment: Radha Gonzalez WPtel: [facility] [place] (15 min) Moderate 01/15/2018 Patient Education: Patient Medication Summary Completed 01/15/2018 Care Plan: Referral Order SNOMED-CT : [id number] Pending 01/15/2018 Visit Plan: Well Adult - [...] one month. 12/15/2017 Appointment: Radha Gonzalez WPtel: [facility] New Patient 12/15/2017 Patient Education: Patient Medication Summary Completed 12/15/2017 Care Plan: CHEST X-RAY 2VW FRONTAL&LATL LOINC : 05851-9 Pending 12/15/2017 Appointment: Radha Gonzalez WPtel: [facility] (15 min) Moderate 12/08/2017 Appointment: (S) New Patient 08/13/2015 Visit Plan: steri strip placed on t humb of right hand - antibiotic shot given to patient and rx for keflex 500mg qid x 10 days given to the patient to fill prior to his trip to [place] 08/03/2015 Patient Education: Patient Medication Summary Completed 08/03/2015 Referral: External, Ordering Provider 08/03 Referral info faxed to [place]. Patient informed to be expecting a call from them with appt info Appointment Requested Referral: External, Ordering Provider Referral Appointment Requested Referral: External, Ordering Provider I called today; they will call him to schedule. Completed Referral: Armani Dunaway Referral Appointment Requested Referral: Mayte Kapoor Referral Appointment Requested Referral[phone] [place] Referral Appointment Requested Referral: External, Ordering [...] Multiple symptoms - referral to [facility] - rashes, hypogonadism, optic neuritis - [...] Multiple symptoms - referral to [facility] - appt in September 30, 2018. [...] to fill prior to his trip to [place] Prazosin - for night mcrae . Chronic [...] home. Cervical spine stenosis - referral to [facility] physical therapy. I have also recommended a Referral to Dr. Dunaway. I have called and talked to Dr. Dunaway - he looked at the pt's imaging and agrees that getting the pt in to be seen soon would be a preferred option.
--- OUTSIDE RECORDS SUMMARY | 2020-04-28 00:33 | XMS REPORT | CCD ---
Author Author Nilton Gonzalez Organization [facility] Address [address] [place] [address] Phone Care Team Providers Care Director Of Counterintelligence Name Role Phone PP Unavailable CCM Unavailable Summary Purpose Interface Exchange Family history Brother Diagnosis Age At Onset Alcoholism Unknown Father Diagnosis Age At Onset Hypercholesterolemia Unknown Social History Social History Element Codes Description Effective Dates Employment Unknown Curre ntly unemployed 04/20/2019 Marital status Unknown S chanda 12/15/2017 Number of children Unknown 1 12/15/[address]: 659918991 Never smoker 12/15/[address]: 709450 Currently drinks alcohol <1 per week 12/15/2017 Has the patient ever used illegal drugs? Unknown Has never used illegal drugs 018 Living arrangements Unknown House 08/04/2015 Allergies, Adverse Reactions, Alerts Substance Reaction Codes Entered Date Inactivated Date Status * NO KNOWN DRUG ARNOLDO RGIES Unknown 08/03/2015 No Inactive Date Active Past Medical History Illness Codes Condition Status Onset Date Resolved Date Dysphagia, pharyngea l phase ICD-9: 787.23 ICD-10: R13.13 Active 04/20/2019 Unknown Essential (primary) hypertension ICD-9: 401.1 ICD-10: I10 Active 12/15/2017 Unknown Major depressive dis order, recurrent, moderate ICD-9: 296.32 ICD-10: F33.1 Active 04/20/2019 Unknown Cervicalgia ICD-9: 723.1 ICD-10: M54.2 Active 05/10/2018 Unknown Other fatigue ICD-9: 780.79 ICD-10: R53.83 Active 05/10/2018 Unknown 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 Active 05/20/2018 Unknown Impaired fasting glu cose ICD-9: 790.21 [...] Condition Codes Effectiv e Dates Condition Status Dysphagia, pharyngea l phase ICD-9: 787.23 ICD-10: R13.13 04/20/2019 Active Essential (primary) hypertension ICD-9: 401.1 ICD-10: I10 12/15/2017 Active Major depressive dis order, recurrent, moderate ICD-9: 296.32 ICD-10: F33.1 04/20/2019 Active Cervicalgia ICD-9: 723.1 ICD-10: M54.2 05/10/2018 Active Other fatigue ICD-9: 780.79 ICD-10: R53.83 05/10/2018 Active 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 05/20/2018 Active Impaired fasting glu cose ICD-9: 790.21 [...] Fill Instructions paroxetine 40 mg tablet RxNorm: 9926768 1 Tablet(s) PO daily 04/20/2019 05/19/2019 Active Adderall 30 mg tablet RxNorm: 150175 2 Tablet(s) PO daily 04/19/2019 05/18/2019 Active alprazolam 1 mg tablet RxNorm: 868047 1 Tablet(s) PO TID as needed 04/13/2019 06/11/2019 Active hydrocodone 5 mg-fanny taminophen 325 mg tablet RxNorm: 546143 1-2 Tablet(s) PO Q6 a s needed 03/21/2019 No Stop Date Active Adderall 30 mg tablet RxNorm: 446306 2 Tablet(s) PO daily 03/21/2019 04/14/2019 Inactive tramadol 50 mg tablet RxNorm: 673901 1-2 Tablet(s) PO Q6 as needed 03/14/2019 No Stop Date Active hydrocodone 5 mg-fanny taminophen 325 mg tablet RxNorm: 732263 1-2 Tablet(s) PO Q6 a s needed 02/23/2019 03/20/2019 Inactive Adderall 30 mg tablet RxNorm: 518621 2 Tablet(s) PO daily 02/23/2019 03/20/2019 Inactive Adderall 30 mg tablet RxNorm: 414103 2 Tablet(s) PO daily 01/24/2019 02/22/2019 Inactive ketoconazole 2 % top ical cream RxNorm: 865122 APPLY ONE GRAM TOPICA LLY TWICE A DAY 01/12/2019 01/26/2019 In active tramadol 50 mg tablet RxNorm: 800535 1-2 Tablet(s) PO Q6 as needed 01/11/2019 03/13/2019 In active atenolol 50 mg tablet RxNorm: 211070 1.5 Tablet(s) PO BID 12/29/2018 12/23/2019 Active hydrocodone 5 mg-fanny taminophen 325 mg tablet RxNorm: 146589 1-2 Tablet(s) PO Q6 a s needed 12/29/2018 02/22/2019 Inactive Adderall 30 mg tablet RxNorm: 662434 2 Tablet(s) PO daily 12/29/2018 01/23/2019 Inactive hydrocodone 5 mg-fanny taminophen 325 mg tablet RxNorm: 972414 1-2 Tablet(s) PO Q6 a s needed 12/29/2018 12/28/2018 Inactive testosterone cypiona te 200 mg/mL intramuscular oil RxNorm: 8371978 1.25 Milliliter(s) IM 12/29/2018 12/29/2018 Inactive hydrocodone 5 mg-fanny taminophen 325 mg tablet RxNorm: 293742 1 Tablet(s) PO TID NC N 12/28/2018 12/28/2018 In active testosterone cypiona te 200 mg/mL intramuscular oil RxNorm: 9884675 1.25 Milliliter(s) IM 2 x month 12/22/2018 04/12/2019 Inactive gabapentin 300 mg ca psule RxNorm: 185010 1 Capsule(s) PO QID 12/16/2018 12/10/2019 Active testosterone cypiona te 200 mg/mL intramuscular oil RxNorm: 3506412 Milliliter(s) IM 12/16/2018 12/16/2018 In active Voltaren 1 % topical gel RxNorm: 042281 2 Gram(s) APPLY TOPIC ALLY four TIMES A DAY 12/16/2018 01/20/2019 In active trazodone 100 mg tablet RxNorm: 067827 TAKE ONE TABLET BY MOUTH EVERY NIGHT AT BEDTIME 12/07/2018 06/04/2019 Active hydrocodone 5 mg-fanny taminophen 325 mg tablet RxNorm: 368619 1 Tablet(s) PO TID NC N 11/29/2018 12/27/2018 In active Adderall 30 mg tablet RxNorm: 926519 2 Tablet(s) PO daily 11/29/2018 12/28/2018 Inactive clindamycin 1 %-arthur oyl peroxide 5 % topical gel RxNorm: 435504 TOP APPLY TO AFFECTED AREA(S) ON SERNA TWO TIMES A DAY 11/17/2018 No Stop Date Active testosterone cypiona te 200 mg/mL intramuscular oil RxNorm: 9211640 1 Milliliter(s) IM 2 x month 11/17/2018 12/21/2018 Inactive Zorvolex 35 mg capsule RxNorm: 8982756 1 Capsule(s) PO TID as needed for pain 11/15/2018 05/13/2019 Ac tive ketoconazole 2 % top ical cream RxNorm: 642810 APPLY ONE GRAM TOPICA LLY TWICE A DAY 11/15/2018 11/29/2018 In active testosterone cypiona te 200 mg/mL intramuscular oil RxNorm: 8320666 1 Milliliter(s) IM 11/15/2018 11/14/2018 Inactive hydrocodone 5 mg-fanny taminophen 325 mg tablet RxNorm: 937222 1 Tablet(s) PO TID NC N 11/02/2018 11/28/2018 In active Singulair 10 mg tablet RxNorm: 620811 1 Tablet(s) PO daily 11/01/2018 07/28/2019 Active testosterone cypiona te 200 mg/mL intramuscular oil RxNorm: 6832675 1 Milliliter(s) IM 2 x month 11/01/2018 11/16/2018 Inactive Adderall 30 mg tablet RxNorm: 986012 2 Tablet(s) PO daily 10/29/2018 11/27/2018 Inactive gabapentin 300 mg ca psule RxNorm: 262814 1 Capsule(s) PO BID m ay take TID 10/19/2018 12/15/2018 In active gabapentin 300 mg ca psule RxNorm: 289159 1 Capsule(s) PO BID m ay take TID 10/19/2018 10/18/2018 In active alprazolam 1 mg tablet RxNorm: 447184 1 Tablet(s) PO TID as needed 10/15/2018 04/19/2019 Inactive testosterone cypiona te 200 mg/mL intramuscular oil RxNorm: 423140 Milliliter(s) IM 09/28/2018 09/28/2018 In active pravastatin 40 mg ta blet RxNorm: 171383 TAKE ONE TABLET BY [facility] EVERY NIGHT AT BEDTIME 09/27/2018 09/21/2019 Active Tamiflu 75 mg capsule RxNorm: 914610 1 Capsule(s) PO BID 09/24/2018 09/28/2018 Inactive Adderall 30 mg tablet RxNorm: 405658 2 Tablet(s) PO daily 09/20/2018 10/19/2018 Inactive hydrocodone 5 mg-fanny taminophen 325 mg tablet RxNorm: 916339 1 Tablet(s) PO TID NC N 09/20/2018 11/01/2018 In active testosterone cypiona te 200 mg/mL intramuscular oil RxNorm: 646422 Milliliter(s) IM 09/16/2018 09/16/2018 In active testosterone cypiona te 200 mg/mL intramuscular oil RxNorm: 760785 1 Milliliter(s) IM 09/02/2018 09/02/2018 Inactive testosterone cypiona te 200 mg/mL intramuscular oil RxNorm: 701387 Milliliter(s) IM 08/19/2018 08/19/2018 In active Adderall 30 mg tablet RxNorm: 884719 2 Tablet(s) PO daily 08/18/2018 09/16/2018 Inactive tramadol 50 mg tablet RxNorm: 464286 1-2 Tablet(s) PO Q6 as needed 08/18/2018 01/12/2019 In active Dexilant 60 mg capsu le, delayed release RxNorm: 236418 1 Capsule(s) PO BID 08/17/2018 08/11/2019 Ac tive ketoconazole 2 % top ical cream RxNorm: 456375 1 Gram(s) TOP BID 08/17/2018 08/26/2018 Inactive Zorvolex 35 mg capsule RxNorm: 4664940 1 Capsule(s) PO TID as needed for pain 08/17/2018 08/16/2018 In active atenolol 50 mg tablet RxNorm: 960905 1 Tablet(s) PO BID 08/17/2018 12/28/2018 Inactive Zorvolex 35 mg capsule RxNorm: 8429020 1 Capsule(s) PO TID as needed for pain 08/17/2018 11/14/2018 In active ketoconazole 2 % top ical cream RxNorm: 063169 1 Gram(s) TOP BID 08/02/2018 08/11/2018 Inactive hydrocortisone 2.5 % topical cream RxNorm: 145356 1 Application TOP BID 07/21/2018 No Stop Date Active Adderall 30 mg tablet RxNorm: 866589 2 Tablet(s) PO daily 07/20/2018 08/17/2018 Inactive testosterone cypiona te 200 mg/mL intramuscular oil RxNorm: 572058 Milliliter(s) IM 07/15/2018 07/15/2018 In active alprazolam 1 mg tablet RxNorm: 364132 1 Tablet(s) PO TID as needed 07/12/2018 09/07/2018 Inactive hydrocodone 5 mg-fanny taminophen 325 mg tablet RxNorm: 547359 1 Tablet(s) PO TID NC N 06/30/2018 09/19/2018 In active pravastatin 40 mg ta blet RxNorm: 434528 1 Tablet(s) PO QHS 06/18/2018 09/15/2018 Inactive Adderall 30 mg tablet RxNorm: 772009 2 Tablet(s) PO daily 06/18/2018 07/17/2018 Inactive testosterone cypiona te 200 mg/mL intramuscular oil RxNorm: 773841 Milliliter(s) IM 06/17/2018 06/17/2018 In active Voltaren 1 % topical gel RxNorm: 173714 APPLY TOPICALLY TWO T IMES A DAY 06/16/2018 07/21/2018 In active Vitamin D2 50,000 un it capsule RxNorm: 0063165 1 Capsule(s) PO QW 05/21/2018 No Stop Date Active Adderall 30 mg tablet RxNorm: 215393 2 Tablet(s) PO daily 05/21/2018 06/17/2018 Inactive testosterone cypiona te 200 mg/mL intramuscular oil RxNorm: 286444 Milliliter(s) IM 05/21/2018 05/21/2018 In active testosterone cypiona te 200 mg/mL intramuscular oil RxNorm: 7231237 1 Milliliter(s) IM monthly 05/20/2018 09/16/2018 Inactive testosterone cypiona te 200 mg/mL intramuscular oil RxNorm: 798966 1 Milliliter(s) IM monthly 05/20/2018 05/19/2018 Inactive hydrocodone 5 mg-fanny taminophen 325 mg tablet RxNorm: 861354 1 Tablet(s) PO TID NC N 05/20/2018 06/29/2018 In active Vitamin D2 50,000 un it capsule RxNorm: 1835244 1 Capsule(s) PO QW 05/18/2018 05/20/2018 Inactive triamcinolone aceton destin 0.025 % topical cream RxNorm: 0708583 1 Application TOP BI D 05/13/2018 No Stop Date Active Dexilant 60 mg capsu le, delayed release RxNorm: 983098 1 Capsule(s) PO BID 05/13/2018 08/16/2018 In active Zorvolex 35 mg capsule RxNorm: 6374704 1 Capsule(s) PO TID as needed for pain 05/12/2018 08/09/2018 In active Voltaren 1 % topical gel RxNorm: 796608 1 Application TOP BID 05/12/2018 06/15/2018 Inactive acyclovir 400 mg tablet RxNorm: 749345 1 Tablet(s) PO TID as needed take at ons et of symptoms of cold sores x 5 days 05/10/2018 No Stop Date Active ProAir HFA 90 mcg/ac tuation aerosol inhaler RxNorm: 593471 1 Puff(s) INH QID as needed 05/10/2018 No Stop Date Active baclofen 20 mg tablet RxNorm: 447348 1 Tablet(s) PO TID as needed muscle spas ms 05/10/2018 06/08/2018 In active Singulair 10 mg tablet RxNorm: 633316 1 Tablet(s) PO daily 05/10/2018 08/07/2018 Inactive atenolol 50 mg tablet RxNorm: 288615 1 Tablet(s) PO BID 05/10/2018 08/07/2018 Inactive triamcinolone aceton destin 0.025 % topical cream RxNorm: 1933264 1 Application TOP BI D 05/10/2018 05/12/2018 In active paroxetine 20 mg tablet RxNorm: 8401630 2 Tablet(s) PO QHS 05/10/2018 04/19/2019 Inactive tramadol 50 mg tablet RxNorm: 325115 1 Tablet(s) PO TID as needed 05/10/2018 05/19/2018 Inactive Dexilant 60 mg capsu le, delayed release RxNorm: 017287 1 Capsule(s) PO daily 05/10/2018 05/12/2018 In active alprazolam 1 mg tablet RxNorm: 959056 1 Tablet(s) PO TID as needed 05/10/2018 08/06/2018 Inactive trazodone 100 mg tablet RxNorm: 837244 1 Tablet(s) PO QHS 05/10/2018 11/05/2018 Inactive cyclobenzaprine 10 m g tablet RxNorm: 340480 1 Tablet(s) PO TID as needed muscle spasms 05/07/2018 07/12/2018 Inactive trazodone 100 mg tablet RxNorm: 174735 1 Tablet(s) PO QHS 05/07/2018 05/09/2018 Inactive Adderall 30 mg tablet RxNorm: 704397 2 Tablet(s) PO daily 04/19/2018 05/18/2018 Inactive alprazolam 1 mg tablet RxNorm: 328384 1 Tablet(s) PO BID 04/19/2018 05/09/2018 Inactive Adderall 30 mg tablet RxNorm: 964790 2 Tablet(s) PO daily 03/26/2018 04/18/2018 Inactive paroxetine 20 mg tablet RxNorm: 4377260 2 Tablet(s) PO QHS 03/15/2018 05/09/2018 Inactive Adderall 30 mg tablet RxNorm: 651483 2 Tablet(s) PO daily 02/25/2018 03/25/2018 Inactive cyclobenzaprine 10 m g tablet RxNorm: 456822 1 Tablet(s) PO TID as needed muscle spasms 02/22/2018 05/06/2018 Inactive tramadol 50 mg tablet RxNorm: 373662 1 Tablet(s) PO TID as needed 02/22/2018 03/07/2018 Inactive tramadol 50 mg tablet RxNorm: 737528 1 Tablet(s) PO TID as needed 02/22/2018 02/21/2018 Inactive trazodone 100 mg tablet RxNorm: 105660 1 Tablet(s) PO QHS 02/03/2018 05/03/2018 Inactive trazodone 100 mg tablet RxNorm: 660302 1 Tablet(s) PO QHS 02/03/2018 02/02/2018 Inactive Adderall 30 mg tablet RxNorm: 021904 2 Tablet(s) PO daily 01/27/2018 02/18/2018 Inactive acyclovir 400 mg tablet RxNorm: 416896 1 Tablet(s) PO TID as needed take at ons et of symptoms of cold sores x 5 days 01/15/2018 05/09/2018 Inactive Bactrim DS 800 mg-16 0 mg tablet RxNorm: 298504 1 Tablet(s) PO BID 01/11/2018 01/17/2018 Inactive Bactrim DS 800 mg-16 0 mg tablet RxNorm: 703554 1 Tablet(s) PO BID 01/11/2018 01/10/2018 Inactive Dexilant 60 mg capsu le, delayed release RxNorm: 736022 1 Capsule(s) PO daily 12/23/2017 05/09/2018 In active Dexilant 60 mg capsu le, delayed release RxNorm: 464991 1 Capsule(s) PO daily 12/23/2017 12/22/2017 In active atenolol 50 mg tablet RxNorm: 396164 1 Tablet(s) PO BID 12/15/2017 05/09/2018 Inactive alprazolam 1 mg tablet RxNorm: 237256 1-1.5 Tablet(s) PO daily 12/15/2017 04/18/2018 Inactive ceftriaxone 500 mg s olution for injection RxNorm: 3817301 Inj 08/03/2015 08/03/2015 Inactive paroxetine 20 mg tablet RxNorm: 7749791 2 Tablet(s) PO QHS 08/01/2015 10/29/2015 Inactive pravastatin 40 mg ta blet RxNorm: 288858 1/2 Tablet(s) PO QHS 08/01/2015 12/14/2017 Inactive Trazadone 100mg 100 mg RxNorm: 1 PO daily 08/01/2015 11/27/2015 Inactive Trazadone 100mg 100 mg RxNorm: 1 PO daily 08/01/2015 05/04/2018 Inactive atenolol 50 mg tablet RxNorm: 538580 1 Tablet(s) PO daily 08/01/2015 10/29/2015 Inactive ibuprofen 800 mg tablet RxNorm: 058365 1 Tablet(s) PO BID -TID No Start Date Active Fish Oil 360 mg-1,20 0 mg capsule RxNorm: 764302 1 Capsule(s) PO BID No Start Date Active Zyrtec 10 mg tablet RxNorm: 2723461 1 Tablet(s) PO daily No Start Date Active pravastatin 40 mg ta blet RxNorm: 996030 1/2 Tablet(s) PO QHS No Start Date 07/31/2015 Inactive Benadryl Allergy 25 mg tablet RxNorm: 0345941 1 Tablet(s) PO daily No Start Date 07/19/2018 Inactive Adderall 30 mg tablet RxNorm: 304893 2 Tablet(s) PO daily No Start Date 01/26/2018 Inactive Aspirin Low Dose 81 mg tablet,delayed release RxNorm: 280372 1 Tablet(s) PO BID No Start Date 07/19/2018 Inactive Singulair 10 mg tablet RxNorm: 868852 1 Tablet(s) PO daily No Start Date 05/09/2018 Inactive cyclobenzaprine 10 m g tablet RxNorm: 555210 1 Tablet(s) PO TID as needed muscle spasms No Start Date 02/21/2018 Inactive Trazadone 100mg 100 mg RxNorm: 1 PO daily No Start Date 07/31/2015 Inactive clindamycin 1 %-arthur oyl peroxide 5 % topical gel RxNorm: 356965 TOP APPLY TO AFFECTED AREA(S) ON SERNA TWO TIMES A DAY No Start Date 11/16/2018 Inactive hydrocortisone 2.5 % topical cream RxNorm: 271977 1 Application TOP BID No Start Date 07/20/2018 Inactive alprazolam 1 mg tablet RxNorm: 830262 2 Tablet(s) PO daily No Start Date 12/14/2017 Inactive tramadol 50 mg tablet RxNorm: 866311 1-2 Tablet(s) PO Q6 as needed No Start Date 08/17/2018 Inactive Vitamin D2 50,000 un it capsule RxNorm: 2030657 1 Capsule(s) PO QW No Start Date 05/17/2018 Inactive pantoprazole 40 mg t ablet,delayed release RxNorm: 257043 1 Tablet(s) PO BID No Start Date 12/22/2017 Inactive atenolol 50 mg tablet RxNorm: 151064 1 Tablet(s) PO daily No Start Date 07/31/2015 Inactive paroxetine 20 mg tablet RxNorm: 160910 2 Tablet(s) PO QHS No Start Date 07/31/2015 Inactive Medication Administered Medication Codes Instruc tions Start Date Status testosterone cypionate 200 mg/mL intramuscular oil RxNorm: 4910455 1.25Milliliter 12/29/2018 No longer Active testosterone cypionate 200 mg/mL intramuscular oil RxNorm: 8279073 Milliliter 12/16/2018 No longer Active testosterone cypionate 200 mg/mL intramuscular oil RxNorm: 2354684 1Milliliter 11/15/2018 No longer Active testosterone cypionate 200 mg/mL intramuscular oil RxNorm: 746906 Milliliter 09/28/2018 No longer Active testosterone cypionate 200 mg/mL intramuscular oil RxNorm: 599577 Milliliter 09/16/2018 No longer Active testosterone cypionate 200 mg/mL intramuscular oil RxNorm: 484458 1Milliliter 09/02/2018 No longer Active testosterone cypionate 200 mg/mL intramuscular oil RxNorm: 341159 Milliliter 08/19/2018 No longer Active testosterone cypionate 200 mg/mL intramuscular oil RxNorm: 149250 Milliliter 07/15/2018 No longer Active testosterone cypionate 200 mg/mL intramuscular oil RxNorm: 528286 Milliliter 06/17/2018 No longer Active testosterone cypionate 200 mg/mL intramuscular oil RxNorm: 681401 Milliliter 05/21/2018 No longer Active ceftriaxone 500 mg solution for injection RxNorm: 3871884 08/03/2015 No longer A ctive Immunizations Vaccine Codes Date Status Influenza CVX: 141 08/02 completed Tetanus, Diptheria, Pertussis CVX: 113 05/16/2011 completed Tetanus/Diptheria CVX: 113 05/16/2011 completed Assessments Condition Codes Effectiv e Dates Essential (primary) hypertension ICD -10: I10 ICD-9: 401.1 04/20/2019 Major depressive disorder, recurrent, moderate ICD-10: F33.1 ICD-9: 296.32 04/20/2019 Dysphagia, pharyngeal phase ICD-10: R13.13 ICD-9: 787.23 04/20/2019 Other fatigue ICD-10: R53.83 ICD-9: 780.79 12/29/2018 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 ICD-9: 257.2 12/29/2018 Cervicalgia ICD-10: M54.2 ICD-9: 723.1 12/29/2018 Impaired fasting glucose ICD-10: R73 .01 [...] For Visit Effective Dates Notes back pain 04/20/2019 back pain 12/29/2018 arm pain 12/20/2018 hypertension 12/16/2018 hypertension 11/01/2018 sinus congestion 09/24/2018 back pain 08/16/2018 back pain 08/02/2018 back pain 05/31/2018 back pain 05/20/2018 medication follow up 05/10/2018 vision change 01/15/2018 vision change 12/15/2017 Results Observation Observation Code Item Item Code Result Date Comp. Metabolic Panel (14) 76640 GLUCOSE 117 mg/dL 12/17/2018 Comp. Metabolic Panel (14) 71292 BUN 17 mg/dL 12/17/2018 Comp. Metabolic Panel (14) 68527 CREATININE 0.99 mg/dL 12/17/2018 Comp. Metabolic Panel (14) 37659 SODIUM 137 mmol/L 12/17/2018 Comp. Metabolic Panel (14) 26885 POTASSIUM 4.6 mmol/L 12/17/2018 Comp. Metabolic Panel (14) 04896 CHLORIDE 102 mmol/L 12/17/2018 Comp. Metabolic Panel (14) 71399 CARBON DIOXIDE 21 mmol/L 12/17/2018 Comp. Metabolic Panel (14) 87116 CALCIUM 9.4 mg/dL 12/17/2018 Comp. Metabolic Panel (14) 22814 TOTAL PROTEIN 7.5 g/dL 12/17/2018 Comp. Metabolic Panel (14) 18790 ALBUMIN 5.1 g/dL 12/17/2018 Comp. Metabolic Panel (14) 99190 ALKALINE PHOSPHATASE 79 U/L 12/17/2018 Comp. Metabolic Panel (14) 24155 TOTAL BILIRUBIN 0.5 mg/dL 12/17/2018 Comp. Metabolic Panel (14) 62840 SGOT (AST) 34 U/L 12/17/2018 Comp. Metabolic Panel (14) 70455 SGPT (ALT) 40 U/L 12/17/2018 Comp. Metabolic Panel (14) 76220 eGFR (mL/min/1.73m2) 115 12/17/2018 Comp. Metabolic Panel (14) 49199 INTERPRETATION 12/17/2018 Testosterone Serum 376128 TESTOSTERONE 96.8 ng/dL 12/17/2018 Cbc With Differential/Platelet 19773 WBC 5.61 thou/uL 9 Cbc With Differential/Platelet 12634 RBC 5.53 mil/uL 12/17/2018 Cbc With Differential/Platelet 82056 HEMOGLOBIN 15.4 g/dL 12/17/2018 Cbc With Differential/Platelet 31877 HEMATOCRIT 48.1 % 12/17/2018 Cbc With Differential/Platelet 71628 MCV 87.0 fL 12/17/2018 Cbc With Differential/Platelet 55028 MCH 27.8 pg 12/17/2018 Cbc With Differential/Platelet 20850 MCHC 32.0 g/dL 12/17/2018 Cbc With Differential/Platelet 78221 RDW-CV 13.9 % 12/17/2018 Cbc With Differential/Platelet 63522 PLATELET COUNT 294 thou/uL 12/17/2018 Cbc With Differential/Platelet 29750 NEUTROPHIL % 71.2 % 12/17/2018 Cbc With Differential/Platelet 20751 LYMPHOCYTE % 22.2 % 12/17/2018 Cbc With Differential/Platelet 42206 MONOCYTE % 5.4 % 12/17/2018 Cbc With Differential/Platelet 06333 EOS % 0.9 % 12/17/2018 Cbc With Differential/Platelet 14556 BASO % 0.4 % 12/17/2018 Cbc With Differential/Platelet 64823 NEUTROPHIL ABS # 3.99 thou/uL 12/17/2018 Cbc With Differential/Platelet 41820 LYMPH ABS # 1.25 thou/uL 12/17/2018 Cbc With Differential/Platelet 84901 MONOCYTE ABS # 0.30 thou/uL 12/17/2018 Cbc With Differential/Platelet 10398 EOS ABS # 0.05 thou/uL 9 Cbc With Differential/Platelet 74259 BASO ABS # 0.02 thou/uL 12/17/2018 Lipid Panel 63666 CHOLES TEROL 227 mg/dL 12/17/2018 Lipid Panel 02637 TRIGLY CERIDES 229 mg/dL 12/17/2018 Lipid Panel 60430 HDL 41 mg/dL 12/17/2018 Lipid Panel 38932 CHOLES TEROL/HDL 5.54 12/17/2018 Lipid Panel 99212 LDL (C ALCULATED) 140 mg/dL 12/17/2018 Lipid Panel 50988 LDL/HDL 3.41 12/17/2018 Lipid Panel 65750 INTERP RETATION 12/17/2018 Tsh 803242 TSH 1.190 uIU/mL 12/17/2018 Testosterone Serum 561787 TESTOSTERONE 44.1 ng/dL 08/18/2018 Hemoglobin 305802 WBC 7.62 thou/uL 08/17/2018 Hemoglobin 462456 RBC 5.23 mil/uL 08/17/2018 Hemoglobin 787454 HEMOGL OBIN 15.0 g/dL 08/17/2018 Hemoglobin 583653 HEMATO CRIT 45.0 % 08/17/2018 Hemoglobin 919995 MCV 86.0 fL 08/17/2018 Hemoglobin 553478 MCH 28.7 pg 08/17/2018 Hemoglobin 380988 MCHC 33.3 g/dL 08/17/2018 Hemoglobin 940832 RDW-CV 12.9 % 08/17/2018 Hemoglobin 767626 PLATEL ET COUNT 313 thou/uL 08/17/2018 Hematocrit 123017 WBC 7.62 thou/uL 08/17/2018 Hematocrit 041162 RBC 5.23 mil/uL 08/17/2018 Hematocrit 874469 HEMOGL OBIN 15.0 g/dL 08/17/2018 Hematocrit 626133 HEMATO CRIT 45.0 % 08/17/2018 Hematocrit 124723 MCV 86.0 fL 08/17/2018 Hematocrit 801620 MCH 28.7 pg 08/17/2018 Hematocrit 443641 MCHC 33.3 g/dL 08/17/2018 Hematocrit 497739 RDW-CV 12.9 % 08/17/2018 Hematocrit 063970 PLATEL ET COUNT 313 thou/uL 08/17/2018 Culture Mrsa 785768 MRSA CULTURE SEE NOTES 06/21/2018 Comp. Metabolic Panel (14) 73647 GLUCOSE 101 mg/dL 06/18/2018 Comp. Metabolic Panel (14) 86339 BUN 18 mg/dL 06/18/2018 Comp. Metabolic Panel (14) 96833 CREATININE 0.99 mg/dL 06/18/2018 Comp. Metabolic Panel (14) 08045 SODIUM 141 mmol/L 06/18/2018 Comp. Metabolic Panel (14) 10405 POTASSIUM 4.3 mmol/L 06/18/2018 Comp. Metabolic Panel (14) 43534 CHLORIDE 103 mmol/L 06/18/2018 Comp. Metabolic Panel (14) 07694 CARBON DIOXIDE 23 mmol/L 06/18/2018 Comp. Metabolic Panel (14) 75483 CALCIUM 9.8 mg/dL 06/18/2018 Comp. Metabolic Panel (14) 37636 TOTAL PROTEIN 7.1 g/dL 06/18/2018 Comp. Metabolic Panel (14) 49878 ALBUMIN 5.2 g/dL 06/18/2018 Comp. Metabolic Panel (14) 17542 ALKALINE PHOSPHATASE 65 U/L 06/18/2018 Comp. Metabolic Panel (14) 93753 TOTAL BILIRUBIN 0.6 mg/dL 06/18/2018 Comp. Metabolic Panel (14) 15622 SGOT (AST) 21 U/L 06/18/2018 Comp. Metabolic Panel (14) 51138 SGPT (ALT) 24 U/L 06/18/2018 Comp. Metabolic Panel (14) 21536 eGFR (mL/min/1.73m2) 115 06/18/2018 Comp. Metabolic Panel (14) 19850 INTERPRETATION 06/18/2018 Cbc With Differential/Platelet 97674 WBC 4.55 thou/uL 8 Cbc With Differential/Platelet 78956 RBC 5.13 mil/uL 06/18/2018 Cbc With Differential/Platelet 09954 HEMOGLOBIN 14.4 g/dL 06/18/2018 Cbc With Differential/Platelet 95256 HEMATOCRIT 44.1 % 06/18/2018 Cbc With Differential/Platelet 21564 MCV 85.9 fL 06/18/2018 Cbc With Differential/Platelet 81716 MCH 28.1 pg 06/18/2018 Cbc With Differential/Platelet 32476 MCHC 32.7 g/dL 06/18/2018 Cbc With Differential/Platelet 38676 RDW-CV 13.4 % 06/18/2018 Cbc With Differential/Platelet 10520 PLATELET COUNT 287 thou/uL 06/18/2018 Cbc With Differential/Platelet 27441 NEUTROPHIL % 53.9 % 06/18/2018 Cbc With Differential/Platelet 62339 LYMPHOCYTE % 36.1 % 06/18/2018 Cbc With Differential/Platelet 44940 MONOCYTE % 7.4 % 06/18/2018 Cbc With Differential/Platelet 54737 EOS % 1.9 % 06/18/2018 Cbc With Differential/Platelet 91354 BASO % 0.8 % 06/18/2018 Cbc With Differential/Platelet 58189 NEUTROPHIL ABS # 2.45 thou/uL 06/18/2018 Cbc With Differential/Platelet 21967 LYMPH ABS # 1.64 thou/uL 06/18/2018 Cbc With Differential/Platelet 57369 MONOCYTE ABS # 0.34 thou/uL 06/18/2018 Cbc With Differential/Platelet 05024 EOS ABS # 0.09 thou/uL 8 Cbc With Differential/Platelet 71701 BASO ABS # 0.04 thou/uL 06/18/2018 Review of Systems System Result Effective Dates Constitutional recent illness 04/20/2019 Constitutional No chills [...] Procedure Codes Date THER/PROPH/DIAG INJ SC/IM CPT-4: 64560 12/29/2018 THER/PROPH/DIAG INJ SC/IM CPT-4: 70533 12/16/2018 THER/PROPH/DIAG INJ SC/IM CPT-4: 95354 11/15/2018 THER/PROPH/DIAG INJ SC/IM CPT-4: 18320 09/28/2018 THER/PROPH/DIAG INJ SC/IM CPT-4: 62488 09/16/2018 THER/PROPH/DIAG INJ SC/IM CPT-4: 65474 09/02/2018 THER/PROPH/DIAG INJ SC/IM CPT-4: 44589 08/19/2018 IMMUNIZATION ADMIN CPT- 4: 21949 08/02/2018 FLU VAC NO PRSV 4 VA L 3 YRS+ CPT-4: 74629 08/02/2018 THER/PROPH/DIAG INJ SC/IM CPT-4: 49960 07/15/2018 THER/PROPH/DIAG INJ SC/IM CPT-4: 86989 06/17/2018 THER/PROPH/DIAG INJ SC/IM CPT-4: 71109 05/21/2018 THER/PROPH/DIAG INJ SC/IM CPT-4: 83176 08/03/2015 ROCEPHIN, PER 250 MG CPT-4: J0696 08/03/2015 Vital Signs Date Vital 04/20/2019 Blood Pressure 1: 160/84 Code: 8480-6 BMI: 34.0 Code: 13018-5 Heart Rate 1: 82 bpm Height: 5'7" SpO2: 97% Weight: 216 lbs 13 o z 12/29/2018 Blood Pressure 1: 144/90 Code: 8480-6 BMI: 34.8 Code: 39529-4 Heart Rate 1: 91 bpm Height: 5'7" SpO2: 98% Weight: 222 lbs 12/20/2018 Blood Pressure 1: 124/76 Code: 8480-6 BMI: 35.4 Code: 85692-8 Heart Rate 1: 79 bpm Height: 5'7" SpO2: 99% Weight: 226 lbs 12/16/2018 Blood Pressure 1: 160/90 Code: 8480-6 BMI: 35.4 Code: 08835-5 Heart Rate 1: 90 bpm Height: 5'7" SpO2: 95% Weight: 226 lbs 11/01/2018 Blood Pressure 1: 146/82 Code: 8480-6 BMI: 36.0 Code: 03327-3 Heart Rate 1: 87 bpm Height: 5'7" SpO2: 98% Weight: 230 lbs 09/24/2018 Blood Pressure 1: 140/82 Code: 8480-6 BMI: 36.0 Code: 70642-5 Heart Rate 1: 86 bpm Height: 5'7" SpO2: 98% Temperature: 37.1 (C ) / 98.7 (F) Weight: 230 lbs 08/16/2018 Blood Pressure 1: 148/82 Code: 8480-6 Blood Pressure 2: 157/92 Code: 8480-6 BMI: 35.9 Code: 33173-5 Heart Rate 1: 72 bpm Height: 5'7" SpO2: 96% Weight: 229 lbs 08/02/2018 Blood Pressure 1: 142/86 Code: 8480-6 BMI: 35.2 Code: 39901-0 Heart Rate 1: 101 bpm Height: 5'7" SpO2: 97% Weight: 225 lbs 05/31/2018 Blood Pressure 1: 134/82 Code: 8480-6 BMI: 35.4 Code: 24213-8 Heart Rate 1: 91 bpm Height: 5'7" SpO2: 96% Weight: 226 lbs 05/20/2018 Blood Pressure 1: 160/100 Code: 8480-6 BMI: 35.2 Code: 43740-9 Heart Rate 1: 89 bpm Height: 5'7" SpO2: 98% Weight: 225 lbs 05/10/2018 Blood Pressure 1: 124/70 Code: 8480-6 BMI: 35.1 Code: 84559-2 Heart Rate 1: 93 bpm Height: 5'7" SpO2: 99% Weight: 224 lbs 01/15/2018 Blood Pressure 1: 142/92 Code: 8480-6 BMI: 36.3 Code: 36331-5 Heart Rate 1: 77 bpm Height: 5'7" SpO2: 98% Weight: 232 lbs 12/15/2017 Blood Pressure 1: 156/98 Code: 8480-6 BMI: 36.2 Code: 81731-9 Heart Rate 1: 87 bpm Height: 5'7" SpO2: 97% Weight: 231 lbs Functional Status No Functional Status data History of Present Illness Symptom Name Status Resu lt Effective Date Notes Quality constant 04/20/2019 None Onset of Symptom [...] eye 01/15/2018 None vision change Quality ac sahd 01/15/2018 None vision change Quality lo ss [...] Encounters Encounter Performer Loca tion Codes Date ( 14975 EST. P ATIENT, LEVEL III Diagnosis: Essential (primary) hypertension[ICD10: I10] Diagnosis: Major depressive disorder, recurrent, moderate[ICD10: F33.1] Diagnosis: Dysphagia, pharyngeal phase[ICD10: R13.13] Radha Gonzalez MD, [facility] CPT-4: 58005 04/20/2019 ([id number]) 37019 EST. 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 PATIENT, LEVEL III Diagnosis: Pain in right arm[ICD10: M79.601] Sonia Gonzalez MD, [facility] CPT-4: 42363 12/20/2018 ([id number]) 58214 EST. 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 PATIENT, LEVEL III Diagnosis: Acute upper respiratory infection, unspecified[ICD10: J06.9] Diagnosis: Other allergic rhinitis[ICD10: J30.89] Sonia Gonzalez MD, [facility] CPT-4: 40265 09/24/2018 ([id number]) 90595 EST. 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 P ATIENT, LEVEL IV Diagnosis: Essential (primary) hypertension[ICD10: I10] Diagnosis: Cervicalgia[ICD10: M54.2] Radha Gonzalez MD, [facility] CPT-4: 41418 05/31/2018 ([id number]) 80700 EST. 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 04/20/2019 Patient Education: Patient Medication Summary Completed [...] injections. 12/29/2018 Appointment: Radha Gonzalez WPtel: [phone] [facility] (15 min) Moderate 12/29/2018 Patient Education: Patient Medication Summary Completed 12/29/2018 Patient Education: .Cervicalgia Neck Pain Completed 12/29/2018 Patient Education: Patient Medication Summary Completed 12/21/2018 Care Plan: %Hba1C add to blood from 12/17 LOINC : 15540-1 Pending 12/21/2018 Visit Plan: Right arm pain - dayna deformity noted - will refer to ortho - The pt is to use prn antiinflammatories to manage acute pain. The patient is to call the office if the pain is worsening or does not improve. 12/20/2018 Appointment: Sonia Potter WPtel: [phone] [facility] (15 min) Moderate 12/20/2018 Patient Education: [...] with testosterone. 12/16/2018 [phone] [place] (15 min) Moderate 12/16/2018 [...] needed. 11/01/2018 Appointment: Radha Gonzalez WPtel: [phone] [facility] (15 min) Moderate 11/01/2018 Patient Education: Patient [...] spray. 09/24/2018 Appointment: Sonia Potter WPtel: [phone] [facility] (15 min) Moderate 09/24/2018 Patient Education: [...] at home. Multiple symptoms - referral to [facility] - appt in September 30, 2018. 08/16/2018 Appointment: Radha Gonzalez WPtel: [facility] (15 min) Moderate 08/16/2018 Patient Education: Patient [...] at home. Multiple symptoms - referral to [facility] - rashes, hypogonadism, optic neuritis - all points to possible autoimmune syndrome. Spinal stenosis - of thoracic region - pt to talk to Dr. Dunaway about referral to a different specialist for his mid- back. Hypogonadism - continue with testosterone. Flu shot given today in clinic. 08/02/2018 Appointment: Radha Gonzalez WPtel: [facility] (15 min) Moderate 08/02/2018 Patient Education: Patient Medication Summary Completed 08/02/2018 Care Plan: Referral Order SNOMED-CT : 663743988 Pending 08/02/2018 Appointment: Injection 07/15/2018 Patient Education: [...] home. Cervical spine stenosis - [facility]. I have also recommended a Referral to Dr. Dunaway. I have called and talked to Dr. Dunaway - he looked at the pt's imaging and agrees that getting the pt in to be seen soon would be a preferred option. 05/31/2018 Appointment: Radha Gonzalez WPtel: [facility] [place] (15 min) Moderate 05/31/2018 Patient Education: Patient Medication Summary Completed 05/31/2018 Care Plan: Referral Order SNOMED-CT : 744182203 Pending 05/31/2018 Care Plan: Referral Order SNOMED-CT : 277906935 Pending 05/31/2018 Appointment: Injection 05/21/2018 Patient Education: Patient Medication Summary Completed 05/21/2018 Care Plan: Referral Order SNOMED-CT : 749191023 Pending 05/21/2018 Visit Plan: Cervical and thoracic s tenosis with spinal cord compression -refer for appt with Dr Marr -rx for hydrocodone for pain-start gabapentin at bedtime Soft tissue lesion-left chest-schedule CTfor further evaluation HTN-elevated today-hold adderall-monitor blood pressure 05/20/2018 Appointment: Hannah Simons WPtel: [phone] [phone] [place] (15 min) Moderate 05/20/2018 Patient [...] this. 05/10/2018 App[facility]ment[phone] [place] (15 min) Moderate 05/10/2018 Patient Education: Patient Medication Summary Completed 05/10/2018 Visit Plan: Sleep apnea - rx for cp ap - actually autopap was recommended and pt given rx today. HTN - referral to dr. kapoor - pt needs stress testing. 01/15/2018 Appointment: Radah Gonzalez WPtel: [phone] [facility] [place] (15 min) Moderate 01/15/2018 Patient Education: Patient Medication Summary Completed 01/15/2018 Care Plan: Referral Order SNOMED-CT : 247739076 Pending 01/15/2018 Visit Plan: Well Adult - [...] one month. 12/15/2017 Appointment: Radha Gonzalez WPtel: [facility] [facility] 12/15/2017 Patient Education: Patient Medication Summary Completed 12/15/2017 Care Plan: CHEST X-RAY 2VW FRONTAL&LATL LOINC : 00029-4 Pending 12/15/2017 Appointment: Radha Gonzalez WPtel: [facility] (15 min) Moderate 12/08/2017 Appointment: (S) New Patient 08/13/2015 Visit Plan: steri strip placed on t humb of right hand - antibiotic shot given to patient and rx for keflex 500mg qid x 10 days given to the patient to fill prior to his trip to [place] 08/03/2015 Patient Education: Patient Medication Summary Completed 08/03/2015 Referral: External, Ordering Provider 08/03 Referral info faxed to [place]. Patient informed to be expecting a call from them with appt info Appointment Requested Referral: External, Ordering Provider Referral Appointment Requested Referral: External, Ordering Provider I called today; they will call him to schedule. Completed Referral: Armani Dunaway Referral Appointment Requested Referral: Mayte Kapoor Referral Appointment Requested Referral[phone] [facility] Ref[facility] Appointment Requested Referral: External, [...] at home. Multiple symptoms - referral to [facility] - rashes, hypogonadism, optic neuritis - all [...] at home. Multiple symptoms - referral to [facility] - appt in September 30, 2018. . [...] fill prior to his trip to [place] will refill meds for 90 days Will [...] home. Cervical spine stenosis - referral to [facility] physical therapy. I have also recommended a Referral to Dr. Dunaway. I have called and talked to Dr. Dunaway - he looked at the pt's imaging and agrees that getting the pt in to be seen soon would be a preferred option.
--- OUTSIDE RECORDS SUMMARY | 2020-04-28 00:34 | XMS REPORT | CCD ---
Author Author Nilton Gonzalez Organization [facility] Address [address] [place] [address] Phone Care Team Providers Care Vascular Ultrasound Technician Name Role Phone PP Unavailable CCM Unavailable Summary Purpose Interface Exchange Insurance Providers Payer name Policy type / Coverage type Covered green party ID Effective Begin Date Effective End Date [employer] Insurance [id number] 2018 Unknown Family history Brother Diagnosis Age At Onset Alcoholism Unknown Father Diagnosis Age At Onset Hypercholesterolemia Unknown Social History Social History Element Codes Description Effective Dates Marital status Unknown S chanda 12/15/2017 Number of children Unknown 1 12/15/2017 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 [employer] 12/15/[address]: 665647632 Never smoker 12/15/[address]: 227641 Currently drinks alcohol <1 per week 12/15/2017 [...] ICD-9: 729.5 ICD-10: M79.601 Active 12/20/2018 Unknown Essential (primary) hypertension ICD-9: 401.1 ICD-10: I10 Active 12/15/2017 Unknown Ischemic optic neuro sergey, left eye [...] arm ICD-9: 729.5 ICD-10: M79.601 12/20/2018 Active Essential (primary) hypertension ICD-9: 401.1 ICD-10: I10 12/15/2017 Active Ischemic optic neuro sergey, left eye [...] Fill Instructions Adderall 30 mg tablet RxNorm: 222283 2 Tablet(s) PO daily 04/19/2019 05/18/2019 Active alprazolam 1 mg tablet RxNorm: 387080 1 Tablet(s) PO TID as needed 04/13/2019 06/11/2019 Active hydrocodone 5 mg-fanny taminophen 325 mg tablet RxNorm: 102916 1-2 Tablet(s) PO Q6 a s needed 03/21/2019 No Stop Date Active Adderall 30 mg tablet RxNorm: 497349 2 Tablet(s) PO daily 03/21/2019 04/14/2019 Inactive tramadol 50 mg tablet RxNorm: 306567 1-2 Tablet(s) PO Q6 as needed 03/14/2019 No Stop Date Active hydrocodone 5 mg-fanny taminophen 325 mg tablet RxNorm: 034715 1-2 Tablet(s) PO Q6 a s needed 02/23/2019 03/20/2019 Inactive Adderall 30 mg tablet RxNorm: 719416 2 Tablet(s) PO daily 02/23/2019 03/20/2019 Inactive Adderall 30 mg tablet RxNorm: 832141 2 Tablet(s) PO daily 01/24/2019 02/22/2019 Inactive ketoconazole 2 % top ical cream RxNorm: 768473 APPLY ONE GRAM TOPICA LLY TWICE A DAY 01/12/2019 01/26/2019 In active tramadol 50 mg tablet RxNorm: 547548 1-2 Tablet(s) PO Q6 as needed 01/11/2019 03/13/2019 In active atenolol 50 mg tablet RxNorm: 544114 1.5 Tablet(s) PO BID 12/29/2018 12/23/2019 Active hydrocodone 5 mg-fanny taminophen 325 mg tablet RxNorm: 673991 1-2 Tablet(s) PO Q6 a s needed 12/29/2018 02/22/2019 Inactive Adderall 30 mg tablet RxNorm: 785595 2 Tablet(s) PO daily 12/29/2018 01/23/2019 Inactive hydrocodone 5 mg-fanny taminophen 325 mg tablet RxNorm: 073159 1-2 Tablet(s) PO Q6 a s needed 12/29/2018 12/28/2018 Inactive testosterone cypiona te 200 mg/mL intramuscular oil RxNorm: 5979812 1.25 Milliliter(s) IM 12/29/2018 12/29/2018 Inactive hydrocodone 5 mg-fanny taminophen 325 mg tablet RxNorm: 987771 1 Tablet(s) PO TID IA N 12/28/2018 12/28/2018 In active testosterone cypiona te 200 mg/mL intramuscular oil RxNorm: 5070654 1.25 Milliliter(s) IM 2 x month 12/22/2018 04/12/2019 Inactive gabapentin 300 mg ca psule RxNorm: 403501 1 Capsule(s) PO QID 12/16/2018 12/10/2019 Active testosterone cypiona te 200 mg/mL intramuscular oil RxNorm: 3491437 Milliliter(s) IM 12/16/2018 12/16/2018 In active Voltaren 1 % topical gel RxNorm: 739099 2 Gram(s) APPLY TOPIC ALLY four TIMES A DAY 12/16/2018 01/20/2019 In active trazodone 100 mg tablet RxNorm: 712773 TAKE ONE TABLET BY MOUTH EVERY NIGHT AT BEDTIME 12/07/2018 06/04/2019 Active hydrocodone 5 mg-fanny taminophen 325 mg tablet RxNorm: 931095 1 Tablet(s) PO TID IA N 11/29/2018 12/27/2018 In active Adderall 30 mg tablet RxNorm: 469741 2 Tablet(s) PO daily 11/29/2018 12/28/2018 Inactive clindamycin 1 %-arthur oyl peroxide 5 % topical gel RxNorm: 426688 TOP APPLY TO AFFECTED AREA(S) ON SERNA TWO TIMES A DAY 11/17/2018 No Stop Date Active testosterone cypiona te 200 mg/mL intramuscular oil RxNorm: 7280359 1 Milliliter(s) IM 2 x month 11/17/2018 12/21/2018 Inactive Zorvolex 35 mg capsule RxNorm: 6209616 1 Capsule(s) PO TID as needed for pain 11/15/2018 05/13/2019 Ac tive ketoconazole 2 % top ical cream RxNorm: 568833 APPLY ONE GRAM TOPICA LLY TWICE A DAY 11/15/2018 11/29/2018 In active testosterone cypiona te 200 mg/mL intramuscular oil RxNorm: 1058016 1 Milliliter(s) IM 11/15/2018 11/14/2018 Inactive hydrocodone 5 mg-fanny taminophen 325 mg tablet RxNorm: 121068 1 Tablet(s) PO TID IA N 11/02/2018 11/28/2018 In active Singulair 10 mg tablet RxNorm: 852339 1 Tablet(s) PO daily 11/01/2018 07/28/2019 Active testosterone cypiona te 200 mg/mL intramuscular oil RxNorm: 8334071 1 Milliliter(s) IM 2 x month 11/01/2018 11/16/2018 Inactive Adderall 30 mg tablet RxNorm: 302224 2 Tablet(s) PO daily 10/29/2018 11/27/2018 Inactive gabapentin 300 mg ca psule RxNorm: 504998 1 Capsule(s) PO BID m ay take TID 10/19/2018 12/15/2018 In active gabapentin 300 mg ca psule RxNorm: 406708 1 Capsule(s) PO BID m ay take TID 10/19/2018 10/18/2018 In active alprazolam 1 mg tablet RxNorm: 369743 1 Tablet(s) PO TID as needed 10/15/2018 12/12/2018 Inactive testosterone cypiona te 200 mg/mL intramuscular oil RxNorm: 579015 Milliliter(s) IM 09/28/2018 09/28/2018 In active pravastatin 40 mg ta blet RxNorm: 477670 TAKE ONE TABLET BY [facility] EVERY NIGHT AT BEDTIME 09/27/2018 09/21/2019 Active Tamiflu 75 mg capsule RxNorm: 862985 1 Capsule(s) PO BID 09/24/2018 09/28/2018 Inactive Adderall 30 mg tablet RxNorm: 764637 2 Tablet(s) PO daily 09/20/2018 10/19/2018 Inactive hydrocodone 5 mg-fanny taminophen 325 mg tablet RxNorm: 582005 1 Tablet(s) PO TID IA N 09/20/2018 11/01/2018 In active testosterone cypiona te 200 mg/mL intramuscular oil RxNorm: 409761 Milliliter(s) IM 09/16/2018 09/16/2018 In active testosterone cypiona te 200 mg/mL intramuscular oil RxNorm: 904482 1 Milliliter(s) IM 09/02/2018 09/02/2018 Inactive testosterone cypiona te 200 mg/mL intramuscular oil RxNorm: 542620 Milliliter(s) IM 08/19/2018 08/19/2018 In active Adderall 30 mg tablet RxNorm: 761939 2 Tablet(s) PO daily 08/18/2018 09/16/2018 Inactive tramadol 50 mg tablet RxNorm: 277883 1-2 Tablet(s) PO Q6 as needed 08/18/2018 01/12/2019 In active Dexilant 60 mg capsu le, delayed release RxNorm: 948478 1 Capsule(s) PO BID 08/17/2018 08/11/2019 Ac tive ketoconazole 2 % top ical cream RxNorm: 589079 1 Gram(s) TOP BID 08/17/2018 08/26/2018 Inactive Zorvolex 35 mg capsule RxNorm: 1092962 1 Capsule(s) PO TID as needed for pain 08/17/2018 08/16/2018 In active atenolol 50 mg tablet RxNorm: 864568 1 Tablet(s) PO BID 08/17/2018 12/28/2018 Inactive Zorvolex 35 mg capsule RxNorm: 9360655 1 Capsule(s) PO TID as needed for pain 08/17/2018 11/14/2018 In active ketoconazole 2 % top ical cream RxNorm: 294836 1 Gram(s) TOP BID 08/02/2018 08/11/2018 Inactive hydrocortisone 2.5 % topical cream RxNorm: 475783 1 Application TOP BID 07/21/2018 No Stop Date Active Adderall 30 mg tablet RxNorm: 934489 2 Tablet(s) PO daily 07/20/2018 08/17/2018 Inactive testosterone cypiona te 200 mg/mL intramuscular oil RxNorm: 646313 Milliliter(s) IM 07/15/2018 07/15/2018 In active alprazolam 1 mg tablet RxNorm: 198357 1 Tablet(s) PO TID as needed 07/12/2018 09/07/2018 Inactive hydrocodone 5 mg-fanny taminophen 325 mg tablet RxNorm: 122227 1 Tablet(s) PO TID IA N 06/30/2018 09/19/2018 In active pravastatin 40 mg ta blet RxNorm: 178836 1 Tablet(s) PO QHS 06/18/2018 09/15/2018 Inactive Adderall 30 mg tablet RxNorm: 175197 2 Tablet(s) PO daily 06/18/2018 07/17/2018 Inactive testosterone cypiona te 200 mg/mL intramuscular oil RxNorm: 300460 Milliliter(s) IM 06/17/2018 06/17/2018 In active Voltaren 1 % topical gel RxNorm: 843163 APPLY TOPICALLY TWO T IMES A DAY 06/16/2018 07/21/2018 In active Vitamin D2 50,000 un it capsule RxNorm: 4103696 1 Capsule(s) PO QW 05/21/2018 No Stop Date Active Adderall 30 mg tablet RxNorm: 915029 2 Tablet(s) PO daily 05/21/2018 06/17/2018 Inactive testosterone cypiona te 200 mg/mL intramuscular oil RxNorm: 741086 Milliliter(s) IM 05/21/2018 05/21/2018 In active testosterone cypiona te 200 mg/mL intramuscular oil RxNorm: 1329933 1 Milliliter(s) IM monthly 05/20/2018 09/16/2018 Inactive testosterone cypiona te 200 mg/mL intramuscular oil RxNorm: 912865 1 Milliliter(s) IM monthly 05/20/2018 05/19/2018 Inactive hydrocodone 5 mg-fanny taminophen 325 mg tablet RxNorm: 276858 1 Tablet(s) PO TID IA N 05/20/2018 06/29/2018 In active Vitamin D2 50,000 un it capsule RxNorm: 2590115 1 Capsule(s) PO QW 05/18/2018 05/20/2018 Inactive triamcinolone aceton destin 0.025 % topical cream RxNorm: 7515793 1 Application TOP BI D 05/13/2018 No Stop Date Active Dexilant 60 mg capsu le, delayed release RxNorm: 651473 1 Capsule(s) PO BID 05/13/2018 08/16/2018 In active Zorvolex 35 mg capsule RxNorm: 9134430 1 Capsule(s) PO TID as needed for pain 05/12/2018 08/09/2018 In active Voltaren 1 % topical gel RxNorm: 860457 1 Application TOP BID 05/12/2018 06/15/2018 Inactive acyclovir 400 mg tablet RxNorm: 356846 1 Tablet(s) PO TID as needed take at ons et of symptoms of cold sores x 5 days 05/10/2018 No Stop Date Active paroxetine 20 mg tablet RxNorm: 8032315 2 Tablet(s) PO QHS 05/10/2018 10/31/2019 Active ProAir HFA 90 mcg/ac tuation aerosol inhaler RxNorm: 722172 1 Puff(s) INH QID as needed 05/10/2018 No Stop Date Active baclofen 20 mg tablet RxNorm: 265039 1 Tablet(s) PO TID as needed muscle spas ms 05/10/2018 06/08/2018 In active Singulair 10 mg tablet RxNorm: 634615 1 Tablet(s) PO daily 05/10/2018 08/07/2018 Inactive atenolol 50 mg tablet RxNorm: 380984 1 Tablet(s) PO BID 05/10/2018 08/07/2018 Inactive triamcinolone aceton destin 0.025 % topical cream RxNorm: 1245551 1 Application TOP BI D 05/10/2018 05/12/2018 In active tramadol 50 mg tablet RxNorm: 063512 1 Tablet(s) PO TID as needed 05/10/2018 05/19/2018 Inactive Dexilant 60 mg capsu le, delayed release RxNorm: 351319 1 Capsule(s) PO daily 05/10/2018 05/12/2018 In active alprazolam 1 mg tablet RxNorm: 400837 1 Tablet(s) PO TID as needed 05/10/2018 08/06/2018 Inactive trazodone 100 mg tablet RxNorm: 879022 1 Tablet(s) PO QHS 05/10/2018 11/05/2018 Inactive cyclobenzaprine 10 m g tablet RxNorm: 262547 1 Tablet(s) PO TID as needed muscle spasms 05/07/2018 07/12/2018 Inactive trazodone 100 mg tablet RxNorm: 830203 1 Tablet(s) PO QHS 05/07/2018 05/09/2018 Inactive Adderall 30 mg tablet RxNorm: 594224 2 Tablet(s) PO daily 04/19/2018 05/18/2018 Inactive alprazolam 1 mg tablet RxNorm: 105355 1 Tablet(s) PO BID 04/19/2018 05/09/2018 Inactive Adderall 30 mg tablet RxNorm: 743061 2 Tablet(s) PO daily 03/26/2018 04/18/2018 Inactive paroxetine 20 mg tablet RxNorm: 9667051 2 Tablet(s) PO QHS 03/15/2018 05/09/2018 Inactive Adderall 30 mg tablet RxNorm: 792138 2 Tablet(s) PO daily 02/25/2018 03/25/2018 Inactive cyclobenzaprine 10 m g tablet RxNorm: 993655 1 Tablet(s) PO TID as needed muscle spasms 02/22/2018 05/06/2018 Inactive tramadol 50 mg tablet RxNorm: 393606 1 Tablet(s) PO TID as needed 02/22/2018 03/07/2018 Inactive tramadol 50 mg tablet RxNorm: 832803 1 Tablet(s) PO TID as needed 02/22/2018 02/21/2018 Inactive trazodone 100 mg tablet RxNorm: 393849 1 Tablet(s) PO QHS 02/03/2018 05/03/2018 Inactive trazodone 100 mg tablet RxNorm: 351882 1 Tablet(s) PO QHS 02/03/2018 02/02/2018 Inactive Adderall 30 mg tablet RxNorm: 918895 2 Tablet(s) PO daily 01/27/2018 02/18/2018 Inactive acyclovir 400 mg tablet RxNorm: 467457 1 Tablet(s) PO TID as needed take at ons et of symptoms of cold sores x 5 days 01/15/2018 05/09/2018 Inactive Bactrim DS 800 mg-16 0 mg tablet RxNorm: 700739 1 Tablet(s) PO BID 01/11/2018 01/17/2018 Inactive Bactrim DS 800 mg-16 0 mg tablet RxNorm: 744688 1 Tablet(s) PO BID 01/11/2018 01/10/2018 Inactive Dexilant 60 mg capsu le, delayed release RxNorm: 944157 1 Capsule(s) PO daily 12/23/2017 05/09/2018 In active Dexilant 60 mg capsu le, delayed release RxNorm: 598071 1 Capsule(s) PO daily 12/23/2017 12/22/2017 In active atenolol 50 mg tablet RxNorm: 828602 1 Tablet(s) PO BID 12/15/2017 05/09/2018 Inactive alprazolam 1 mg tablet RxNorm: 027246 1-1.5 Tablet(s) PO daily 12/15/2017 04/18/2018 Inactive ceftriaxone 500 mg s olution for injection RxNorm: 3915805 Inj 08/03/2015 08/03/2015 Inactive paroxetine 20 mg tablet RxNorm: 9204764 2 Tablet(s) PO QHS 08/01/2015 10/29/2015 Inactive pravastatin 40 mg ta blet RxNorm: 975789 1/2 Tablet(s) PO QHS 08/01/2015 12/14/2017 Inactive Trazadone 100mg 100 mg RxNorm: 1 PO daily 08/01/2015 11/27/2015 Inactive Trazadone 100mg 100 mg RxNorm: 1 PO daily 08/01/2015 05/04/2018 Inactive atenolol 50 mg tablet RxNorm: 962288 1 Tablet(s) PO daily 08/01/2015 10/29/2015 Inactive ibuprofen 800 mg tablet RxNorm: 788347 1 Tablet(s) PO BID -TID No Start Date Active Fish Oil 360 mg-1,20 0 mg capsule RxNorm: 897678 1 Capsule(s) PO BID No Start Date Active Zyrtec 10 mg tablet RxNorm: 1603089 1 Tablet(s) PO daily No Start Date Active pravastatin 40 mg ta blet RxNorm: 160456 1/2 Tablet(s) PO QHS No Start Date 07/31/2015 Inactive Benadryl Allergy 25 mg tablet RxNorm: 2665695 1 Tablet(s) PO daily No Start Date 07/19/2018 Inactive Adderall 30 mg tablet RxNorm: 355773 2 Tablet(s) PO daily No Start Date 01/26/2018 Inactive Aspirin Low Dose 81 mg tablet,delayed release RxNorm: 469612 1 Tablet(s) PO BID No Start Date 07/19/2018 Inactive Singulair 10 mg tablet RxNorm: 313471 1 Tablet(s) PO daily No Start Date 05/09/2018 Inactive cyclobenzaprine 10 m g tablet RxNorm: 452436 1 Tablet(s) PO TID as needed muscle spasms No Start Date 02/21/2018 Inactive Trazadone 100mg 100 mg RxNorm: 1 PO daily No Start Date 07/31/2015 Inactive clindamycin 1 %-arthur oyl peroxide 5 % topical gel RxNorm: 255709 TOP APPLY TO AFFECTED AREA(S) ON SERNA TWO TIMES A DAY No Start Date 11/16/2018 Inactive hydrocortisone 2.5 % topical cream RxNorm: 584080 1 Application TOP BID No Start Date 07/20/2018 Inactive alprazolam 1 mg tablet RxNorm: 942705 2 Tablet(s) PO daily No Start Date 12/14/2017 Inactive tramadol 50 mg tablet RxNorm: 682716 1-2 Tablet(s) PO Q6 as needed No Start Date 08/17/2018 Inactive Vitamin D2 50,000 un it capsule RxNorm: 7608671 1 Capsule(s) PO QW No Start Date 05/17/2018 Inactive pantoprazole 40 mg t ablet,delayed release RxNorm: 785338 1 Tablet(s) PO BID No Start Date 12/22/2017 Inactive atenolol 50 mg tablet RxNorm: 624077 1 Tablet(s) PO daily No Start Date 07/31/2015 Inactive paroxetine 20 mg tablet RxNorm: 787757 2 Tablet(s) PO QHS No Start Date 07/31/2015 Inactive Medication Administered Medication Codes Instruc tions Start Date Status testosterone cypionate 200 mg/mL intramuscular oil RxNorm: 5647398 1.25Milliliter 12/29/2018 No longer Active testosterone cypionate 200 mg/mL intramuscular oil RxNorm: 3296297 Milliliter 12/16/2018 No longer Active testosterone cypionate 200 mg/mL intramuscular oil RxNorm: 2678604 1Milliliter 11/15/2018 No longer Active testosterone cypionate 200 mg/mL intramuscular oil RxNorm: 312144 Milliliter 09/28/2018 No longer Active testosterone cypionate 200 mg/mL intramuscular oil RxNorm: 998490 Milliliter 09/16/2018 No longer Active testosterone cypionate 200 mg/mL intramuscular oil RxNorm: 385429 1Milliliter 09/02/2018 No longer Active testosterone cypionate 200 mg/mL intramuscular oil RxNorm: 216301 Milliliter 08/19/2018 No longer Active testosterone cypionate 200 mg/mL intramuscular oil RxNorm: 698060 Milliliter 07/15/2018 No longer Active testosterone cypionate 200 mg/mL intramuscular oil RxNorm: 569611 Milliliter 06/17/2018 No longer Active testosterone cypionate 200 mg/mL intramuscular oil RxNorm: 820629 Milliliter 05/21/2018 No longer Active ceftriaxone 500 mg solution for injection RxNorm: 0748268 08/03/2015 No longer A ctive Immunizations Vaccine Codes Date Status Influenza CVX: 141 08/02 completed Tetanus, Diptheria, Pertussis CVX: 113 05/16/2011 completed Tetanus/Diptheria CVX: 113 05/16/2011 completed Assessments Condition Codes Effectiv e Dates Other fatigue ICD-10: R53.83 ICD-9: 780.79 12/29/2018 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 Metabolic Panel (14) 56916 GLUCOSE 117 mg/dL 12/17/2018 Comp. Metabolic Panel (14) 07080 BUN 17 mg/dL 12/17/2018 Comp. Metabolic Panel (14) 18372 CREATININE 0.99 mg/dL 12/17/2018 Comp. Metabolic Panel (14) 41706 SODIUM 137 mmol/L 12/17/2018 Comp. Metabolic Panel (14) 20209 POTASSIUM 4.6 mmol/L 12/17/2018 Comp. Metabolic Panel (14) 74579 CHLORIDE 102 mmol/L 12/17/2018 Comp. Metabolic Panel (14) 91051 CARBON DIOXIDE 21 mmol/L 12/17/2018 Comp. Metabolic Panel (14) 51714 CALCIUM 9.4 mg/dL 12/17/2018 Comp. Metabolic Panel (14) 89302 TOTAL PROTEIN 7.5 g/dL 12/17/2018 Comp. Metabolic Panel (14) 95147 ALBUMIN 5.1 g/dL 12/17/2018 Comp. Metabolic Panel (14) 21959 ALKALINE PHOSPHATASE 79 U/L 12/17/2018 Comp. Metabolic Panel (14) 29545 TOTAL BILIRUBIN 0.5 mg/dL 12/17/2018 Comp. Metabolic Panel (14) 64242 SGOT (AST) 34 U/L 12/17/2018 Comp. Metabolic Panel (14) 94338 SGPT (ALT) 40 U/L 12/17/2018 Comp. Metabolic Panel (14) 55515 eGFR (mL/min/1.73m2) 115 12/17/2018 Comp. Metabolic Panel (14) 22038 INTERPRETATION 12/17/2018 Testosterone Serum 126428 TESTOSTERONE 96.8 ng/dL 12/17/2018 Cbc With Differential/Platelet 91083 WBC 5.61 thou/uL 9 Cbc With Differential/Platelet 73735 RBC 5.53 mil/uL 12/17/2018 Cbc With Differential/Platelet 13280 HEMOGLOBIN 15.4 g/dL 12/17/2018 Cbc With Differential/Platelet 15763 HEMATOCRIT 48.1 % 12/17/2018 Cbc With Differential/Platelet 99388 MCV 87.0 fL 12/17/2018 Cbc With Differential/Platelet 58798 MCH 27.8 pg 12/17/2018 Cbc With Differential/Platelet 51994 MCHC 32.0 g/dL 12/17/2018 Cbc With Differential/Platelet 37494 RDW-CV 13.9 % 12/17/2018 Cbc With Differential/Platelet 19177 PLATELET COUNT 294 thou/uL 12/17/2018 Cbc With Differential/Platelet 95176 NEUTROPHIL % 71.2 % 12/17/2018 Cbc With Differential/Platelet 52192 LYMPHOCYTE % 22.2 % 12/17/2018 Cbc With Differential/Platelet 50917 MONOCYTE % 5.4 % 12/17/2018 Cbc With Differential/Platelet 42972 EOS % 0.9 % 12/17/2018 Cbc With Differential/Platelet 26178 BASO % 0.4 % 12/17/2018 Cbc With Differential/Platelet 39647 NEUTROPHIL ABS # 3.99 thou/uL 12/17/2018 Cbc With Differential/Platelet 37260 LYMPH ABS # 1.25 thou/uL 12/17/2018 Cbc With Differential/Platelet 99174 MONOCYTE ABS # 0.30 thou/uL 12/17/2018 Cbc With Differential/Platelet 47214 EOS ABS # 0.05 thou/uL 9 Cbc With Differential/Platelet 55488 BASO ABS # 0.02 thou/uL 12/17/2018 Lipid Panel 83477 CHOLES TEROL 227 mg/dL 12/17/2018 Lipid Panel 25388 TRIGLY CERIDES 229 mg/dL 12/17/2018 Lipid Panel 92230 HDL 41 mg/dL 12/17/2018 Lipid Panel 38717 CHOLES TEROL/HDL 5.54 12/17/2018 Lipid Panel 02725 LDL (C ALCULATED) 140 mg/dL 12/17/2018 Lipid Panel 64268 LDL/HDL 3.41 12/17/2018 Lipid Panel 54542 INTERP RETATION 12/17/2018 Tsh 141729 TSH 1.190 uIU/mL 12/17/2018 Testosterone Serum 416770 TESTOSTERONE 44.1 ng/dL 08/18/2018 Hemoglobin 917264 WBC 7.62 thou/uL 08/17/2018 Hemoglobin 903956 RBC 5.23 mil/uL 08/17/2018 Hemoglobin 078134 HEMOGL OBIN 15.0 g/dL 08/17/2018 Hemoglobin 549475 HEMATO CRIT 45.0 % 08/17/2018 Hemoglobin 716506 MCV 86.0 fL 08/17/2018 Hemoglobin 253219 MCH 28.7 pg 08/17/2018 Hemoglobin 886626 MCHC 33.3 g/dL 08/17/2018 Hemoglobin 679038 RDW-CV 12.9 % 08/17/2018 Hemoglobin 642916 PLATEL ET COUNT 313 thou/uL 08/17/2018 Hematocrit 920831 WBC 7.62 thou/uL 08/17/2018 Hematocrit 451480 RBC 5.23 mil/uL 08/17/2018 Hematocrit 191992 HEMOGL OBIN 15.0 g/dL 08/17/2018 Hematocrit 488942 HEMATO CRIT 45.0 % 08/17/2018 Hematocrit 843354 MCV 86.0 fL 08/17/2018 Hematocrit 143278 MCH 28.7 pg 08/17/2018 Hematocrit 582778 MCHC 33.3 g/dL 08/17/2018 Hematocrit 505723 RDW-CV 12.9 % 08/17/2018 Hematocrit 490130 PLATEL ET COUNT 313 thou/uL 08/17/2018 Culture Mrsa 092826 MRSA CULTURE SEE NOTES 06/21/2018 Comp. Metabolic Panel (14) 43394 GLUCOSE 101 mg/dL 06/18/2018 Comp. Metabolic Panel (14) 09795 BUN 18 mg/dL 06/18/2018 Comp. Metabolic Panel (14) 85877 CREATININE 0.99 mg/dL 06/18/2018 Comp. Metabolic Panel (14) 57073 SODIUM 141 mmol/L 06/18/2018 Comp. Metabolic Panel (14) 37264 POTASSIUM 4.3 mmol/L 06/18/2018 Comp. Metabolic Panel (14) 31754 CHLORIDE 103 mmol/L 06/18/2018 Comp. Metabolic Panel (14) 75968 CARBON DIOXIDE 23 mmol/L 06/18/2018 Comp. Metabolic Panel (14) 63268 CALCIUM 9.8 mg/dL 06/18/2018 Comp. Metabolic Panel (14) 01607 TOTAL PROTEIN 7.1 g/dL 06/18/2018 Comp. Metabolic Panel (14) 58234 ALBUMIN 5.2 g/dL 06/18/2018 Comp. Metabolic Panel (14) 20878 ALKALINE PHOSPHATASE 65 U/L 06/18/2018 Comp. Metabolic Panel (14) 78350 TOTAL BILIRUBIN 0.6 mg/dL 06/18/2018 Comp. Metabolic Panel (14) 49289 SGOT (AST) 21 U/L 06/18/2018 Comp. Metabolic Panel (14) 19210 SGPT (ALT) 24 U/L 06/18/2018 Comp. Metabolic Panel (14) 03780 eGFR (mL/min/1.73m2) 115 06/18/2018 Comp. Metabolic Panel (14) 20261 INTERPRETATION 06/18/2018 Cbc With Differential/Platelet 75629 WBC 4.55 thou/uL 8 Cbc With Differential/Platelet 78531 RBC 5.13 mil/uL 06/18/2018 Cbc With Differential/Platelet 61984 HEMOGLOBIN 14.4 g/dL 06/18/2018 Cbc With Differential/Platelet 46514 HEMATOCRIT 44.1 % 06/18/2018 Cbc With Differential/Platelet 54989 MCV 85.9 fL 06/18/2018 Cbc With Differential/Platelet 91787 MCH 28.1 pg 06/18/2018 Cbc With Differential/Platelet 66192 MCHC 32.7 g/dL 06/18/2018 Cbc With Differential/Platelet 45582 RDW-CV 13.4 % 06/18/2018 Cbc With Differential/Platelet 85685 PLATELET COUNT 287 thou/uL 06/18/2018 Cbc With Differential/Platelet 04898 NEUTROPHIL % 53.9 % 06/18/2018 Cbc With Differential/Platelet 19461 LYMPHOCYTE % 36.1 % 06/18/2018 Cbc With Differential/Platelet 39361 MONOCYTE % 7.4 % 06/18/2018 Cbc With Differential/Platelet 48611 EOS % 1.9 % 06/18/2018 Cbc With Differential/Platelet 88752 BASO % 0.8 % 06/18/2018 Cbc With Differential/Platelet 12378 NEUTROPHIL ABS # 2.45 thou/uL 06/18/2018 Cbc With Differential/Platelet 23658 LYMPH ABS # 1.64 thou/uL 06/18/2018 Cbc With Differential/Platelet 71432 MONOCYTE ABS # 0.34 thou/uL 06/18/2018 Cbc With Differential/Platelet 69748 EOS ABS # 0.09 thou/uL 8 Cbc With Differential/Platelet 02778 BASO ABS # 0.04 thou/uL 06/18/2018 Review of Systems System Result Effective Dates Constitutional recent illness 12/29/2018 Constitutional No chills [...] benign 01/15/2018 None Full Exam - General 1995 Musculoskeletal spine, ribs and pelvis Overall: sacroiliac [...] Procedure Codes Date THER/PROPH/DIAG INJ SC/IM CPT-4: 11135 12/29/2018 THER/PROPH/DIAG INJ SC/IM CPT-4: 88670 12/16/2018 THER/PROPH/DIAG INJ SC/IM CPT-4: 40257 11/15/2018 THER/PROPH/DIAG INJ SC/IM CPT-4: 20759 09/28/2018 THER/PROPH/DIAG INJ SC/IM CPT-4: 97982 09/16/2018 THER/PROPH/DIAG INJ SC/IM CPT-4: 00509 09/02/2018 THER/PROPH/DIAG INJ SC/IM CPT-4: 72824 08/19/2018 IMMUNIZATION ADMIN CPT- 4: 77222 08/02/2018 FLU VAC NO PRSV 4 VA L 3 YRS+ CPT-4: 00462 08/02/2018 THER/PROPH/DIAG INJ SC/IM CPT-4: 79156 07/15/2018 THER/PROPH/DIAG INJ SC/IM CPT-4: 80999 06/17/2018 THER/PROPH/DIAG INJ SC/IM CPT-4: 16656 05/21/2018 THER/PROPH/DIAG INJ SC/IM CPT-4: 12400 08/03/2015 ROCEPHIN, PER 250 MG CPT-4: J0696 08/03/2015 Vital Signs Date Vital 12/29/2018 Blood Pressure 1: 144/90 Code: 8480-6 BMI: 34.8 Code: 76931-3 Heart Rate 1: 91 bpm Height: 5'7" SpO2: 98% Weight: 222 lbs 12/20/2018 Blood Pressure 1: 124/76 Code: 8480-6 BMI: 35.4 Code: 44477-3 Heart Rate 1: 79 bpm Height: 5'7" SpO2: 99% Weight: 226 lbs 12/16/2018 Blood Pressure 1: 160/90 Code: 8480-6 BMI: 35.4 Code: 41249-5 Heart Rate 1: 90 bpm Height: 5'7" SpO2: 95% Weight: 226 lbs 11/01/2018 Blood Pressure 1: 146/82 Code: 8480-6 BMI: 36.0 Code: 82185-6 Heart Rate 1: 87 bpm Height: 5'7" SpO2: 98% Weight: 230 lbs 09/24/2018 Blood Pressure 1: 140/82 Code: 8480-6 BMI: 36.0 Code: 87237-7 Heart Rate 1: 86 bpm Height: 5'7" SpO2: 98% Temperature: 37.1 (C ) / 98.7 (F) Weight: 230 lbs 08/16/2018 Blood Pressure 1: 148/82 Code: 8480-6 Blood Pressure 2: 157/92 Code: 8480-6 BMI: 35.9 Code: 68129-6 Heart Rate 1: 72 bpm Height: 5'7" SpO2: 96% Weight: 229 lbs 08/02/2018 Blood Pressure 1: 142/86 Code: 8480-6 BMI: 35.2 Code: 18051-8 Heart Rate 1: 101 bpm Height: 5'7" SpO2: 97% Weight: 225 lbs 05/31/2018 Blood Pressure 1: 134/82 Code: 8480-6 BMI: 35.4 Code: 08962-8 Heart Rate 1: 91 bpm Height: 5'7" SpO2: 96% Weight: 226 lbs 05/20/2018 Blood Pressure 1: 160/100 Code: 8480-6 BMI: 35.2 Code: 77496-2 Heart Rate 1: 89 bpm Height: 5'7" SpO2: 98% Weight: 225 lbs 05/10/2018 Blood Pressure 1: 124/70 Code: 8480-6 BMI: 35.1 Code: 80089-2 Heart Rate 1: 93 bpm Height: 5'7" SpO2: 99% Weight: 224 lbs 01/15/2018 Blood Pressure 1: 142/92 Code: 8480-6 BMI: 36.3 Code: 46804-0 Heart Rate 1: 77 bpm Height: 5'7" SpO2: 98% Weight: 232 lbs 12/15/2017 Blood Pressure 1: 156/98 Code: 8480-6 BMI: 36.2 Code: 02391-0 Heart Rate 1: 87 bpm Height: 5'7" SpO2: 97% Weight: 231 lbs Functional Status No Functional Status data History of Present Illness Symptom Name Status Resu lt Effective Date Notes Location thoracic spine 12/29/2018 None Location lumbar-sacral [...] eye 01/15/2018 None vision change Quality [place] 01/15/2018 None vision change Quality lo ss [...] vision 12/15/2017 None vision change Quality [place] 12/15/2017 None vision change Onset and Resolution sudden in onset 12/15/2017 None vision change Onset of Symptom 3.5 weeks ago 12/15/2017 None vision change Limitation on Activities severely limits vision 12/15/2017 None vision change Triggers n o known associated factors 12/15/2017 None Advance Directives No Advance Directive data Encounters Encounter Performer Loca tion Codes Date ([id number]) [id number] EST. P ATIENT, LEVEL III Diagnosis: Testicular hypofunction[ICD10: E29.1] Diagnosis: Cervicalgia[ICD10: M54.2] Diagnosis: Other fatigue[ICD10: R53.83] Radha Gonzalez MD, [facility] CPT-4: 12505 12/29/2018 [id number] EST. PATIENT, LEVEL III Diagnosis: Pain in right arm[ICD10: M79.601] Sonia Gonzalez MD, [facility] CPT-4: 02134 12/20/2018 [id number]) [id number] EST. 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 P ATIENT, LEVEL IV Diagnosis: Essential (primary) hypertension[ICD10: I10] Diagnosis: Cervicalgia[ICD10: M54.2] Diagnosis: Spinal stenosis, thoracic region[ICD10: M48.04] Diagnosis: Testicular hypofunction[ICD10: E29.1] Radha Gonzalez MD, [facility] CPT-4: 22674 11/01/2018 [id number] EST. PATIENT, LEVEL III Diagnosis: Acute upper respiratory infection, unspecified[ICD10: J06.9] Diagnosis: Other allergic rhinitis[ICD10: J30.89] Sonia Gonzalez MD, [facility] CPT-4: 25872 09/24/2018 ([id number]) 44582 EST. P ATIENT, LEVEL III Diagnosis: Essential (primary) hypertension[ICD10: I10] Diagnosis: Testicular hypofunction[ICD10: E29.1] Radha Gonzalez MD, [facility] CPT-4: 65451 08/16/2018 ([id number]) 18528 EST. P ATIENT, LEVEL IV Diagnosis: Essential (primary) hypertension[ICD10: I10] Diagnosis: Testicular hypofunction[ICD10: E29.1] Diagnosis: Spinal stenosis, thoracic region[ICD10: M48.04] Diagnosis: Rash and other nonspecific skin eruption[ICD10: R21] Diagnosis: VACCIN FOR INFLUENZA[ICD10: Z23] Radha Gonzalez MD, [facility] CPT-4: 91489 08/02/2018 ([id number]) 09815 EST. P ATIENT, LEVEL IV Diagnosis: Essential (primary) hypertension[ICD10: I10] Diagnosis: Cervicalgia[ICD10: M54.2] Radha Gonzalez MD, [facility] CPT-4: 24547 05/31/2018 ([id number]) 71792 EST. P ATIENT, LEVEL IV Diagnosis: Spinal stenosis, cervical region[ICD10: M48.02] Diagnosis: Spinal stenosis, thoracic region[ICD10: M48.04] Diagnosis: Essential (primary) hypertension[ICD10: I10] Diagnosis: Testicular hypofunction[ICD10: E29.1] Hannah Gonzalez MD, [facility] CPT-4: 55563 05/20/2018 74412 EST. 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] Diagnosis: Obstructive sleep apnea (adult) (pediatric)[ICD10: G47.33] Radha Gonzalez MD, [facility] CPT-4: 04786 01/15/2018 ([id number]) PREV VISIT N EW AGE 40-64 Diagnosis: Encounter for general adult medical examination with abnormal findings[ICD10: Z00.01] Radha Gonzalez MD, [facility] CPT-4: 11468 12/15/2017 ([id number]) OFFICE/OUTPA TIENT VISIT NEW Diagnosis: Laceration of thumb[ICD9: 883.0] Radha Gonzalez MD, [facility] CPT-4: 53315 08/03/2015 Plan of Care Planned Activity Notes C odes Status Date Appointment: Injection 01/13/2019 Visit Plan: Chronic neck and back p ain - pt has chronic pain - has been maintained on current medications, has not sought out other medications, only uses PRN pain medications as directed, and understands the co nsequences of over-medication. Hypogonadism - continue with testosterone injections. 12/29/2018 Appointment: Radha Gonzalez WPtel: [address] [place], [place] [phone] (15 min) Moderate 12/29/2018 Patient Education: Patient Medication Summary Completed 12/29/2018 Patient Education: .Cervicalgia Neck Pain Completed 12/29/2018 Patient Education: Patient Medication Summary Completed 12/21/2018 Care Plan: %Hba1C add to blood from 12/17 LOINC : 62211-1 Pending 12/21/2018 Visit Plan: Right arm pain - dayna deformity noted - will refer to ortho - The pt is to use prn antiinflammatories to manage acute pain. The patient is to call the office if the pain is worsening or does not improve. 12/20/2018 Appointment: Sonia Potter WPtel: [facility] (15 min) Moderate 12/20/2018 Patient Education: [...] with testosterone. 12/16/2018 Appointment: Radha Gonzalez WPtel: [facility]3 [facility] (15 min) Moderate 12/16/2018 Patient Education: Patient [...] needed. 11/01/2018 Appointment: Radha Gonzalez WPtel: [phone] [facility] (15 min) Moderate 11/01/2018 Patient Education: [...] spray. 09/24/2018 Appointment: Sonia Potter [facility]Ptel: [address] [facility] (15 min) Moderate 09/24/2018 Patient Education: Patient [...] Multiple symptoms - referral to [facility] - appt in September 30, 2018. 08/16/2018 App[facility]ment: [facility]el[facility] [phone] [facility] (15 min) Moderate 08/16/2018 [...] Multiple symptoms - referral to [facility] - rashes, hypogonadism, optic neuritis - all points to possible autoimmune syndrome. Spinal stenosis - of thoracic region - pt to talk to Dr. Dunaway about referral to a different specialist for his mid- back. Hypogonadism - continue with testosterone. Flu shot given today in clinic. 08/02/2018 Appointment: Rad[facility] Gonzalez [facility]Ptel[facility] [phone] [facility] (15 min) Moderate 08/02/2018 Patient Education: Patient Medication Summary Completed 08/02/2018 Care Plan: Referral Order SNOMED-CT : 288316044 Pending 08/02/2018 Appointment: Injection 07/15/2018 Patient Education: [...] home. Cervical spine stenosis - referral to [facility] physical therapy. I have also recommended a Referral to Dr. Dunaway. I have called and talked to Dr. Dunaway - he looked at the pt's imaging and agrees that getting the pt in to be seen soon would be a preferred option. 05/31/2018 Appointment: Radha Gonzalez [facility]Ptel[facility] [phone] [facility] (15 min) Moderate 05/31/2018 Patient Education: Patient Medication Summary Completed 05/31/2018 Care Plan: Referral Order SNOMED-CT : 660564049 Pending 05/31/2018 Care Plan: Referral Order SNOMED-CT : 209511485 Pending 05/31/2018 Appointment: Injection 05/21/2018 Patient Education: Patient Medication Summary Completed 05/21/2018 Care Plan: Referral Order SNOMED-CT : 798716436 Pending 05/21/2018 Visit Plan: Cervical and thoracic s tenosis with spinal cord compression -refer for appt with Dr Marr -rx for hydrocodone for pain-start gabapentin at bedtime Soft tissue lesion-left chest-schedule CTfor further evaluation HTN-elevated today-hold adderall-monitor blood pressure 05/20/2018 Appointment: Hannah Simons WPtel: [facility]5 [phone] [place] (15 min) Moderate 05/20/2018 Patient [...] order this. 05/10/2018 Appointment: Sonia Potter WPtel: [facility]6 [facility] [place] (15 min) Moderate 05/10/2018 Patient Education: Patient Medication Summary Completed 05/10/2018 Visit Plan: Sleep apnea - rx for cp ap - actually autopap was recommended and pt given rx today. HTN - referral to dr. kapoor - pt needs stress testing. 01/15/2018 Appointment: Radha Gonzalez WPtel: [facility]5 [facility] [place] (15 min) Moderate 01/15/2018 Patient Education: Patient Medication Summary Completed 01/15/2018 Care Plan: Referral Order SNOMED-CT : 963990676 Pending 01/15/2018 Visit Plan: Well Adult - [...] month. 12/15/2017 Appointment: Radha Gonzalez WPtel: [phone] [facility] New Patient 12/15/2017 Patient Education: Patient Medication Summary Completed 12/15/2017 Care Plan: CHEST X-RAY 2VW FRONTAL&LATL LOINC : 62610-6 Pending 12/15/2017 Appointment: Radha Gonzalez WPtel: [facility]5 [facility] (15 min) Moderate 12/08/2017 Appointment: (S) New Patient 08/13/2015 Visit Plan: steri strip placed on t humb of right hand - antibiotic shot given to patient and rx for keflex 500mg qid x 10 days given to the patient to fill prior to his trip to [place] 08/03/2015 Patient Education: Patient Medication Summary Completed 08/03/2015 Referral: External, Ordering Provider 08/03 Referral info faxed to [facility]. Patient informed to be expecting a call from them with appt info Appointment Requested Referral: External, Ordering Provider Referral Appointment Requested Referral: External, Ordering Provider I called today; they will call him to schedule. Completed Referral: Armnai Dunaway Referral Appointment Requested Referral: Mayte Kapoor Referral Appointment Requested Referral: [facility] WPtel: [phone] [facility] [place] Referral Appointment Requested Referral: External, Ordering [...] Multiple symptoms - referral to [facility] - rashes, hypogonadism, optic neuritis - all points to possible autoimmune syndrome. Spinal stenosis - of thoracic region - pt to talk to Dr. Dunaway about referral to a different specialist for his mid-back. Hypogonadism - continue with testosterone. Flu shot given today in clinic. . Hypertension - not optimally controlled today- no medication changes to be made today - continue with current medications, continue with no added salt diet. Pt has been encouraged to exercise daily. The pt has been advised to call the office if there are any acute concerns about change in blood pressure readings at home. Multiple symptoms - referral to [facility] - appt in September 30, 2018. [...] fill prior to his trip to [place] will refill meds for 90 days Will [...] home. Cervical spine stenosis - referral to [facility]. I have also recommended a Referral to Dr. Dunaway. I have called and talked to Dr. Dunaway - he looked at the pt's imaging and agrees that getting the pt in to be seen soon would be a preferred option.
--- OUTSIDE RECORDS SUMMARY | 2020-04-28 00:35 | XMS REPORT | CCD ---
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 Name Role Phone PP Unavailable CCM Unavailable Summary Purpose Interface Exchange Insurance Providers Payer name Policy type / Coverage type Covered constitution party ID Effective Begin Date Effective End Date [employer] [id number] 2018 Unknown Family history Brother Diagnosis Age At Onset Alcoholism Unknown Father Diagnosis Age At Onset Hypercholesterolemia Unknown Social History Social History Element Codes Description Effective Dates Marital status Unknown S chanda 12/15/2017 Number of children Unknown 1 12/15/2017 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 [employer] 12/15/[address]: 530687579 Never smoker 12/15/[address]: 997761 Currently drinks alcohol <1 per week 12/15/2017 [...] Fill Instructions alprazolam 1 mg tablet RxNorm: 923780 1 Tablet(s) PO TID as needed 04/13/2019 06/11/2019 Active hydrocodone 5 mg-fanny taminophen 325 mg tablet RxNorm: 580512 1-2 Tablet(s) PO Q6 a s needed 03/21/2019 No Stop Date Active Adderall 30 mg tablet RxNorm: 951926 2 Tablet(s) PO daily 03/21/2019 04/19/2019 Active tramadol 50 mg tablet RxNorm: 790956 1-2 Tablet(s) PO Q6 as needed 03/14/2019 No Stop Date Active hydrocodone 5 mg-fanny taminophen 325 mg tablet RxNorm: 747725 1-2 Tablet(s) PO Q6 a s needed 02/23/2019 03/20/2019 Inactive Adderall 30 mg tablet RxNorm: 988843 2 Tablet(s) PO daily 02/23/2019 03/20/2019 Inactive Adderall 30 mg tablet RxNorm: 157167 2 Tablet(s) PO daily 01/24/2019 02/22/2019 Inactive ketoconazole 2 % top ical cream RxNorm: 343777 APPLY ONE GRAM TOPICA LLY TWICE A DAY 01/12/2019 01/26/2019 In active tramadol 50 mg tablet RxNorm: 873225 1-2 Tablet(s) PO Q6 as needed 01/11/2019 03/13/2019 In active atenolol 50 mg tablet RxNorm: 672654 1.5 Tablet(s) PO BID 12/29/2018 12/23/2019 Active hydrocodone 5 mg-fanny taminophen 325 mg tablet RxNorm: 033121 1-2 Tablet(s) PO Q6 a s needed 12/29/2018 02/22/2019 Inactive Adderall 30 mg tablet RxNorm: 113597 2 Tablet(s) PO daily 12/29/2018 01/23/2019 Inactive hydrocodone 5 mg-fanny taminophen 325 mg tablet RxNorm: 752445 1-2 Tablet(s) PO Q6 a s needed 12/29/2018 12/28/2018 Inactive testosterone cypiona te 200 mg/mL intramuscular oil RxNorm: 3984931 1.25 Milliliter(s) IM 12/29/2018 12/29/2018 Inactive hydrocodone 5 mg-fanny taminophen 325 mg tablet RxNorm: 794797 1 Tablet(s) PO TID DC N 12/28/2018 12/28/2018 In active testosterone cypiona te 200 mg/mL intramuscular oil RxNorm: 1949177 1.25 Milliliter(s) IM 2 x month 12/22/2018 04/12/2019 Inactive gabapentin 300 mg ca psule RxNorm: 592572 1 Capsule(s) PO QID 12/16/2018 12/10/2019 Active testosterone cypiona te 200 mg/mL intramuscular oil RxNorm: 2712571 Milliliter(s) IM 12/16/2018 12/16/2018 In active Voltaren 1 % topical gel RxNorm: 797062 2 Gram(s) APPLY TOPIC ALLY four TIMES A DAY 12/16/2018 01/20/2019 In active trazodone 100 mg tablet RxNorm: 079582 TAKE ONE TABLET BY MOUTH EVERY NIGHT AT BEDTIME 12/07/2018 06/04/2019 Active hydrocodone 5 mg-fanny taminophen 325 mg tablet RxNorm: 196559 1 Tablet(s) PO TID DC N 11/29/2018 12/27/2018 In active Adderall 30 mg tablet RxNorm: 920681 2 Tablet(s) PO daily 11/29/2018 12/28/2018 Inactive clindamycin 1 %-arthur oyl peroxide 5 % topical gel RxNorm: 745364 TOP APPLY TO AFFECTED AREA(S) ON SERNA TWO TIMES A DAY 11/17/2018 No Stop Date Active testosterone cypiona te 200 mg/mL intramuscular oil RxNorm: 2560564 1 Milliliter(s) IM 2 x month 11/17/2018 12/21/2018 Inactive Zorvolex 35 mg capsule RxNorm: 3950430 1 Capsule(s) PO TID as needed for pain 11/15/2018 05/13/2019 Ac tive ketoconazole 2 % top ical cream RxNorm: 228731 APPLY ONE GRAM TOPICA LLY TWICE A DAY 11/15/2018 11/29/2018 In active testosterone cypiona te 200 mg/mL intramuscular oil RxNorm: 0943653 1 Milliliter(s) IM 11/15/2018 11/14/2018 Inactive hydrocodone 5 mg-fanny taminophen 325 mg tablet RxNorm: 180369 1 Tablet(s) PO TID DC N 11/02/2018 11/28/2018 In active Singulair 10 mg tablet RxNorm: 494545 1 Tablet(s) PO daily 11/01/2018 07/28/2019 Active testosterone cypiona te 200 mg/mL intramuscular oil RxNorm: 8710807 1 Milliliter(s) IM 2 x month 11/01/2018 11/16/2018 Inactive Adderall 30 mg tablet RxNorm: 439642 2 Tablet(s) PO daily 10/29/2018 11/27/2018 Inactive gabapentin 300 mg ca psule RxNorm: 817516 1 Capsule(s) PO BID m ay take TID 10/19/2018 12/15/2018 In active gabapentin 300 mg ca psule RxNorm: 874522 1 Capsule(s) PO BID m ay take TID 10/19/2018 10/18/2018 In active alprazolam 1 mg tablet RxNorm: 764889 1 Tablet(s) PO TID as needed 10/15/2018 12/12/2018 Inactive testosterone cypiona te 200 mg/mL intramuscular oil RxNorm: 360512 Milliliter(s) IM 09/28/2018 09/28/2018 In active pravastatin 40 mg ta blet RxNorm: 514997 TAKE ONE TABLET BY MO UTH EVERY NIGHT AT BEDTIME 09/27/2018 09/21/2019 Active Tamiflu 75 mg capsule RxNorm: 517501 1 Capsule(s) PO BID 09/24/2018 09/28/2018 Inactive Adderall 30 mg tablet RxNorm: 129231 2 Tablet(s) PO daily 09/20/2018 10/19/2018 Inactive hydrocodone 5 mg-fanny taminophen 325 mg tablet RxNorm: 320640 1 Tablet(s) PO TID DC N 09/20/2018 11/01/2018 In active testosterone cypiona te 200 mg/mL intramuscular oil RxNorm: 073567 Milliliter(s) IM 09/16/2018 09/16/2018 In active testosterone cypiona te 200 mg/mL intramuscular oil RxNorm: 134574 1 Milliliter(s) IM 09/02/2018 09/02/2018 Inactive testosterone cypiona te 200 mg/mL intramuscular oil RxNorm: 486406 Milliliter(s) IM 08/19/2018 08/19/2018 In active Adderall 30 mg tablet RxNorm: 249800 2 Tablet(s) PO daily 08/18/2018 09/16/2018 Inactive tramadol 50 mg tablet RxNorm: 912235 1-2 Tablet(s) PO Q6 as needed 08/18/2018 01/12/2019 In active Dexilant 60 mg capsu le, delayed release RxNorm: 403666 1 Capsule(s) PO BID 08/17/2018 08/11/2019 Ac tive ketoconazole 2 % top ical cream RxNorm: 901394 1 Gram(s) TOP BID 08/17/2018 08/26/2018 Inactive Zorvolex 35 mg capsule RxNorm: 1430122 1 Capsule(s) PO TID as needed for pain 08/17/2018 08/16/2018 In active atenolol 50 mg tablet RxNorm: 383427 1 Tablet(s) PO BID 08/17/2018 12/28/2018 Inactive Zorvolex 35 mg capsule RxNorm: 3041896 1 Capsule(s) PO TID as needed for pain 08/17/2018 11/14/2018 In active ketoconazole 2 % top ical cream RxNorm: 578337 1 Gram(s) TOP BID 08/02/2018 08/11/2018 Inactive hydrocortisone 2.5 % topical cream RxNorm: 158363 1 Application TOP BID 07/21/2018 No Stop Date Active Adderall 30 mg tablet RxNorm: 689608 2 Tablet(s) PO daily 07/20/2018 08/17/2018 Inactive testosterone cypiona te 200 mg/mL intramuscular oil RxNorm: 170746 Milliliter(s) IM 07/15/2018 07/15/2018 In active alprazolam 1 mg tablet RxNorm: 015487 1 Tablet(s) PO TID as needed 07/12/2018 09/07/2018 Inactive hydrocodone 5 mg-fanny taminophen 325 mg tablet RxNorm: 235109 1 Tablet(s) PO TID DC N 06/30/2018 09/19/2018 In active pravastatin 40 mg ta blet RxNorm: 144889 1 Tablet(s) PO QHS 06/18/2018 09/15/2018 Inactive Adderall 30 mg tablet RxNorm: 687307 2 Tablet(s) PO daily 06/18/2018 07/17/2018 Inactive testosterone cypiona te 200 mg/mL intramuscular oil RxNorm: 269646 Milliliter(s) IM 06/17/2018 06/17/2018 In active Voltaren 1 % topical gel RxNorm: 313268 APPLY TOPICALLY TWO T IMES A DAY 06/16/2018 07/21/2018 In active Vitamin D2 50,000 un it capsule RxNorm: 5894308 1 Capsule(s) PO QW 05/21/2018 No Stop Date Active Adderall 30 mg tablet RxNorm: 971691 2 Tablet(s) PO daily 05/21/2018 06/17/2018 Inactive testosterone cypiona te 200 mg/mL intramuscular oil RxNorm: 992936 Milliliter(s) IM 05/21/2018 05/21/2018 In active testosterone cypiona te 200 mg/mL intramuscular oil RxNorm: 9396949 1 Milliliter(s) IM monthly 05/20/2018 09/16/2018 Inactive testosterone cypiona te 200 mg/mL intramuscular oil RxNorm: 698472 1 Milliliter(s) IM monthly 05/20/2018 05/19/2018 Inactive hydrocodone 5 mg-fanny taminophen 325 mg tablet RxNorm: 507298 1 Tablet(s) PO TID DC N 05/20/2018 06/29/2018 In active Vitamin D2 50,000 un it capsule RxNorm: 1376341 1 Capsule(s) PO QW 05/18/2018 05/20/2018 Inactive triamcinolone aceton destin 0.025 % topical cream RxNorm: 8873908 1 Application TOP BI D 05/13/2018 No Stop Date Active Dexilant 60 mg capsu le, delayed release RxNorm: 444624 1 Capsule(s) PO BID 05/13/2018 08/16/2018 In active Zorvolex 35 mg capsule RxNorm: 1702209 1 Capsule(s) PO TID as needed for pain 05/12/2018 08/09/2018 In active Voltaren 1 % topical gel RxNorm: 112663 1 Application TOP BID 05/12/2018 06/15/2018 Inactive acyclovir 400 mg tablet RxNorm: 430197 1 Tablet(s) PO TID as needed take at ons et of symptoms of cold sores x 5 days 05/10/2018 No Stop Date Active paroxetine 20 mg tablet RxNorm: 8897644 2 Tablet(s) PO QHS 05/10/2018 10/31/2019 Active ProAir HFA 90 mcg/ac tuation aerosol inhaler RxNorm: 434273 1 Puff(s) INH QID as needed 05/10/2018 No Stop Date Active baclofen 20 mg tablet RxNorm: 781988 1 Tablet(s) PO TID as needed muscle spas ms 05/10/2018 06/08/2018 In active Singulair 10 mg tablet RxNorm: 406893 1 Tablet(s) PO daily 05/10/2018 08/07/2018 Inactive atenolol 50 mg tablet RxNorm: 489236 1 Tablet(s) PO BID 05/10/2018 08/07/2018 Inactive triamcinolone aceton destin 0.025 % topical cream RxNorm: 5931086 1 Application TOP BI D 05/10/2018 05/12/2018 In active tramadol 50 mg tablet RxNorm: 294486 1 Tablet(s) PO TID as needed 05/10/2018 05/19/2018 Inactive Dexilant 60 mg capsu le, delayed release RxNorm: 907822 1 Capsule(s) PO daily 05/10/2018 05/12/2018 In active alprazolam 1 mg tablet RxNorm: 820987 1 Tablet(s) PO TID as needed 05/10/2018 08/06/2018 Inactive trazodone 100 mg tablet RxNorm: 226644 1 Tablet(s) PO QHS 05/10/2018 11/05/2018 Inactive cyclobenzaprine 10 m g tablet RxNorm: 476684 1 Tablet(s) PO TID as needed muscle spasms 05/07/2018 07/12/2018 Inactive trazodone 100 mg tablet RxNorm: 035357 1 Tablet(s) PO QHS 05/07/2018 05/09/2018 Inactive Adderall 30 mg tablet RxNorm: 422906 2 Tablet(s) PO daily 04/19/2018 05/18/2018 Inactive alprazolam 1 mg tablet RxNorm: 316774 1 Tablet(s) PO BID 04/19/2018 05/09/2018 Inactive Adderall 30 mg tablet RxNorm: 159020 2 Tablet(s) PO daily 03/26/2018 04/18/2018 Inactive paroxetine 20 mg tablet RxNorm: 9455167 2 Tablet(s) PO QHS 03/15/2018 05/09/2018 Inactive Adderall 30 mg tablet RxNorm: 778684 2 Tablet(s) PO daily 02/25/2018 03/25/2018 Inactive cyclobenzaprine 10 m g tablet RxNorm: 117877 1 Tablet(s) PO TID as needed muscle spasms 02/22/2018 05/06/2018 Inactive tramadol 50 mg tablet RxNorm: 095525 1 Tablet(s) PO TID as needed 02/22/2018 03/07/2018 Inactive tramadol 50 mg tablet RxNorm: 731623 1 Tablet(s) PO TID as needed 02/22/2018 02/21/2018 Inactive trazodone 100 mg tablet RxNorm: 923510 1 Tablet(s) PO QHS 02/03/2018 05/03/2018 Inactive trazodone 100 mg tablet RxNorm: 291467 1 Tablet(s) PO QHS 02/03/2018 02/02/2018 Inactive Adderall 30 mg tablet RxNorm: 526679 2 Tablet(s) PO daily 01/27/2018 02/18/2018 Inactive acyclovir 400 mg tablet RxNorm: 758148 1 Tablet(s) PO TID as needed take at ons et of symptoms of cold sores x 5 days 01/15/2018 05/09/2018 Inactive Bactrim DS 800 mg-16 0 mg tablet RxNorm: 664766 1 Tablet(s) PO BID 01/11/2018 01/17/2018 Inactive Bactrim DS 800 mg-16 0 mg tablet RxNorm: 497032 1 Tablet(s) PO BID 01/11/2018 01/10/2018 Inactive Dexilant 60 mg capsu le, delayed release RxNorm: 275321 1 Capsule(s) PO daily 12/23/2017 05/09/2018 In active Dexilant 60 mg capsu le, delayed release RxNorm: 879653 1 Capsule(s) PO daily 12/23/2017 12/22/2017 In active atenolol 50 mg tablet RxNorm: 510815 1 Tablet(s) PO BID 12/15/2017 05/09/2018 Inactive alprazolam 1 mg tablet RxNorm: 995149 1-1.5 Tablet(s) PO daily 12/15/2017 04/18/2018 Inactive ceftriaxone 500 mg s olution for injection RxNorm: 4176434 Inj 08/03/2015 08/03/2015 Inactive paroxetine 20 mg tablet RxNorm: 2458065 2 Tablet(s) PO QHS 08/01/2015 10/29/2015 Inactive pravastatin 40 mg ta blet RxNorm: 966751 1/2 Tablet(s) PO QHS 08/01/2015 12/14/2017 Inactive Trazadone 100mg 100 mg RxNorm: 1 PO daily 08/01/2015 11/27/2015 Inactive Trazadone 100mg 100 mg RxNorm: 1 PO daily 08/01/2015 05/04/2018 Inactive atenolol 50 mg tablet RxNorm: 261538 1 Tablet(s) PO daily 08/01/2015 10/29/2015 Inactive ibuprofen 800 mg tablet RxNorm: 473951 1 Tablet(s) PO BID -TID No Start Date Active Fish Oil 360 mg-1,20 0 mg capsule RxNorm: 081472 1 Capsule(s) PO BID No Start Date Active Zyrtec 10 mg tablet RxNorm: 4492629 1 Tablet(s) PO daily No Start Date Active pravastatin 40 mg ta blet RxNorm: 872901 1/2 Tablet(s) PO QHS No Start Date 07/31/2015 Inactive Benadryl Allergy 25 mg tablet RxNorm: 9800423 1 Tablet(s) PO daily No Start Date 07/19/2018 Inactive Adderall 30 mg tablet RxNorm: 630515 2 Tablet(s) PO daily No Start Date 01/26/2018 Inactive Aspirin Low Dose 81 mg tablet,delayed release RxNorm: 008544 1 Tablet(s) PO BID No Start Date 07/19/2018 Inactive Singulair 10 mg tablet RxNorm: 163281 1 Tablet(s) PO daily No Start Date 05/09/2018 Inactive cyclobenzaprine 10 m g tablet RxNorm: 577805 1 Tablet(s) PO TID as needed muscle spasms No Start Date 02/21/2018 Inactive Trazadone 100mg 100 mg RxNorm: 1 PO daily No Start Date 07/31/2015 Inactive clindamycin 1 %-arthur oyl peroxide 5 % topical gel RxNorm: 218644 TOP APPLY TO AFFECTED AREA(S) ON SERNA TWO TIMES A DAY No Start Date 11/16/2018 Inactive hydrocortisone 2.5 % topical cream RxNorm: 390663 1 Application TOP BID No Start Date 07/20/2018 Inactive alprazolam 1 mg tablet RxNorm: 424123 2 Tablet(s) PO daily No Start Date 12/14/2017 Inactive tramadol 50 mg tablet RxNorm: 563351 1-2 Tablet(s) PO Q6 as needed No Start Date 08/17/2018 Inactive Vitamin D2 50,000 un it capsule RxNorm: 0909130 1 Capsule(s) PO QW No Start Date 05/17/2018 Inactive pantoprazole 40 mg t ablet,delayed release RxNorm: 820587 1 Tablet(s) PO BID No Start Date 12/22/2017 Inactive atenolol 50 mg tablet RxNorm: 449196 1 Tablet(s) PO daily No Start Date 07/31/2015 Inactive paroxetine 20 mg tablet RxNorm: 283967 2 Tablet(s) PO QHS No Start Date 07/31/2015 Inactive Medication Administered Medication Codes Instruc tions Start Date Status testosterone cypionate 200 mg/mL intramuscular oil RxNorm: 6366768 1.25Milliliter 12/29/2018 No longer Active testosterone cypionate 200 mg/mL intramuscular oil RxNorm: 4665788 Milliliter 12/16/2018 No longer Active testosterone cypionate 200 mg/mL intramuscular oil RxNorm: 1373933 1Milliliter 11/15/2018 No longer Active testosterone cypionate 200 mg/mL intramuscular oil RxNorm: 452312 Milliliter 09/28/2018 No longer Active testosterone cypionate 200 mg/mL intramuscular oil RxNorm: 397293 Milliliter 09/16/2018 No longer Active testosterone cypionate 200 mg/mL intramuscular oil RxNorm: 625692 1Milliliter 09/02/2018 No longer Active testosterone cypionate 200 mg/mL intramuscular oil RxNorm: 900934 Milliliter 08/19/2018 No longer Active testosterone cypionate 200 mg/mL intramuscular oil RxNorm: 969180 Milliliter 07/15/2018 No longer Active testosterone cypionate 200 mg/mL intramuscular oil RxNorm: 922129 Milliliter 06/17/2018 No longer Active testosterone cypionate 200 mg/mL intramuscular oil RxNorm: 586008 Milliliter 05/21/2018 No longer Active ceftriaxone 500 mg solution for injection RxNorm: 5979687 08/03/2015 No longer A ctive Immunizations Vaccine [...] Code Result Date Comp. Metabolic Panel (14) 28863 GLUCOSE 117 mg/dL 12/17/2018 Comp. Metabolic Panel (14) 23286 BUN 17 mg/dL 12/17/2018 Comp. Metabolic Panel (14) 34905 CREATININE 0.99 mg/dL 12/17/2018 Comp. Metabolic Panel (14) 86468 SODIUM 137 mmol/L 12/17/2018 Comp. Metabolic Panel (14) 52073 POTASSIUM 4.6 mmol/L 12/17/2018 Comp. Metabolic Panel (14) 23030 CHLORIDE 102 mmol/L 12/17/2018 Comp. Metabolic Panel (14) 76717 CARBON DIOXIDE 21 mmol/L 12/17/2018 Comp. Metabolic Panel (14) 18204 CALCIUM 9.4 mg/dL 12/17/2018 Comp. Metabolic Panel (14) 08560 TOTAL PROTEIN 7.5 g/dL 12/17/2018 Comp. Metabolic Panel (14) 55954 ALBUMIN 5.1 g/dL 12/17/2018 Comp. Metabolic Panel (14) 14837 ALKALINE PHOSPHATASE 79 U/L 12/17/2018 Comp. Metabolic Panel (14) 97329 TOTAL BILIRUBIN 0.5 mg/dL 12/17/2018 Comp. Metabolic Panel (14) 60320 SGOT (AST) 34 U/L 12/17/2018 Comp. Metabolic Panel (14) 64798 SGPT (ALT) 40 U/L 12/17/2018 Comp. Metabolic Panel (14) 98672 eGFR (mL/min/1.73m2) 115 12/17/2018 Comp. Metabolic Panel (14) 69769 INTERPRETATION 12/17/2018 Testosterone Serum 819686 TESTOSTERONE 96.8 ng/dL 12/17/2018 Cbc With Differential/Platelet 79580 WBC 5.61 thou/uL 9 Cbc With Differential/Platelet 37498 RBC 5.53 mil/uL 12/17/2018 Cbc With Differential/Platelet 20038 HEMOGLOBIN 15.4 g/dL 12/17/2018 Cbc With Differential/Platelet 18904 HEMATOCRIT 48.1 % 12/17/2018 Cbc With Differential/Platelet 69109 MCV 87.0 fL 12/17/2018 Cbc With Differential/Platelet 49898 MCH 27.8 pg 12/17/2018 Cbc With Differential/Platelet 92138 MCHC 32.0 g/dL 12/17/2018 Cbc With Differential/Platelet 44391 RDW-CV 13.9 % 12/17/2018 Cbc With Differential/Platelet 19153 PLATELET COUNT 294 thou/uL 12/17/2018 Cbc With Differential/Platelet 11636 NEUTROPHIL % 71.2 % 12/17/2018 Cbc With Differential/Platelet 00831 LYMPHOCYTE % 22.2 % 12/17/2018 Cbc With Differential/Platelet 21919 MONOCYTE % 5.4 % 12/17/2018 Cbc With Differential/Platelet 77631 EOS % 0.9 % 12/17/2018 Cbc With Differential/Platelet 10100 BASO % 0.4 % 12/17/2018 Cbc With Differential/Platelet 63091 NEUTROPHIL ABS # 3.99 thou/uL 12/17/2018 Cbc With Differential/Platelet 48208 LYMPH ABS # 1.25 thou/uL 12/17/2018 Cbc With Differential/Platelet 64866 MONOCYTE ABS # 0.30 thou/uL 12/17/2018 Cbc With Differential/Platelet 42752 EOS ABS # 0.05 thou/uL 9 Cbc With Differential/Platelet 07660 BASO ABS # 0.02 thou/uL 12/17/2018 Lipid Panel 58287 CHOLES TEROL 227 mg/dL 12/17/2018 Lipid Panel 02463 TRIGLY CERIDES 229 mg/dL 12/17/2018 Lipid Panel 45973 HDL 41 mg/dL 12/17/2018 Lipid Panel 56657 CHOLES TEROL/HDL 5.54 12/17/2018 Lipid Panel 35382 LDL (C ALCULATED) 140 mg/dL 12/17/2018 Lipid Panel 88558 LDL/HDL 3.41 12/17/2018 Lipid Panel 49542 INTERP RETATION 12/17/2018 Tsh 644563 TSH 1.190 uIU/mL 12/17/2018 Testosterone Serum 607471 TESTOSTERONE 44.1 ng/dL 08/18/2018 Hemoglobin 057387 WBC 7.62 thou/uL 08/17/2018 Hemoglobin 330887 RBC 5.23 mil/uL 08/17/2018 Hemoglobin 992060 HEMOGL OBIN 15.0 g/dL 08/17/2018 Hemoglobin 144067 HEMATO CRIT 45.0 % 08/17/2018 Hemoglobin 282850 MCV 86.0 fL 08/17/2018 Hemoglobin 890298 MCH 28.7 pg 08/17/2018 Hemoglobin 627711 MCHC 33.3 g/dL 08/17/2018 Hemoglobin 328603 RDW-CV 12.9 % 08/17/2018 Hemoglobin 864154 PLATEL ET COUNT 313 thou/uL 08/17/2018 Hematocrit 228703 WBC 7.62 thou/uL 08/17/2018 Hematocrit 889930 RBC 5.23 mil/uL 08/17/2018 Hematocrit 893787 HEMOGL OBIN 15.0 g/dL 08/17/2018 Hematocrit 198924 HEMATO CRIT 45.0 % 08/17/2018 Hematocrit 658254 MCV 86.0 fL 08/17/2018 Hematocrit 122405 MCH 28.7 pg 08/17/2018 Hematocrit 732426 MCHC 33.3 g/dL 08/17/2018 Hematocrit 206953 RDW-CV 12.9 % 08/17/2018 Hematocrit 059069 PLATEL ET COUNT 313 thou/uL 08/17/2018 Culture Mrsa 867915 MRSA CULTURE SEE NOTES 06/21/2018 Comp. Metabolic Panel (14) 46900 GLUCOSE 101 mg/dL 06/18/2018 Comp. Metabolic Panel (14) 29345 BUN 18 mg/dL 06/18/2018 Comp. Metabolic Panel (14) 73777 CREATININE 0.99 mg/dL 06/18/2018 Comp. Metabolic Panel (14) 33813 SODIUM 141 mmol/L 06/18/2018 Comp. Metabolic Panel (14) 16540 POTASSIUM 4.3 mmol/L 06/18/2018 Comp. Metabolic Panel (14) 80682 CHLORIDE 103 mmol/L 06/18/2018 Comp. Metabolic Panel (14) 90933 CARBON DIOXIDE 23 mmol/L 06/18/2018 Comp. Metabolic Panel (14) 63256 CALCIUM 9.8 mg/dL 06/18/2018 Comp. Metabolic Panel (14) 48111 TOTAL PROTEIN 7.1 g/dL 06/18/2018 Comp. Metabolic Panel (14) 45827 ALBUMIN 5.2 g/dL 06/18/2018 Comp. Metabolic Panel (14) 04098 ALKALINE PHOSPHATASE 65 U/L 06/18/2018 Comp. Metabolic Panel (14) 94952 TOTAL BILIRUBIN 0.6 mg/dL 06/18/2018 Comp. Metabolic Panel (14) 80880 SGOT (AST) 21 U/L 06/18/2018 Comp. Metabolic Panel (14) 45169 SGPT (ALT) 24 U/L 06/18/2018 Comp. Metabolic Panel (14) 18925 eGFR (mL/min/1.73m2) 115 06/18/2018 Comp. Metabolic Panel (14) 45711 INTERPRETATION 06/18/2018 Cbc With Differential/Platelet 88793 WBC 4.55 thou/uL 8 Cbc With Differential/Platelet 98493 RBC 5.13 mil/uL 06/18/2018 Cbc With Differential/Platelet 72989 HEMOGLOBIN 14.4 g/dL 06/18/2018 Cbc With Differential/Platelet 53908 HEMATOCRIT 44.1 % 06/18/2018 Cbc With Differential/Platelet 02302 MCV 85.9 fL 06/18/2018 Cbc With Differential/Platelet 74585 MCH 28.1 pg 06/18/2018 Cbc With Differential/Platelet 58887 MCHC 32.7 g/dL 06/18/2018 Cbc With Differential/Platelet 71571 RDW-CV 13.4 % 06/18/2018 Cbc With Differential/Platelet 42171 PLATELET COUNT 287 thou/uL 06/18/2018 Cbc With Differential/Platelet 60086 NEUTROPHIL % 53.9 % 06/18/2018 Cbc With Differential/Platelet 72542 LYMPHOCYTE % 36.1 % 06/18/2018 Cbc With Differential/Platelet 19186 MONOCYTE % 7.4 % 06/18/2018 Cbc With Differential/Platelet 84818 EOS % 1.9 % 06/18/2018 Cbc With Differential/Platelet 12856 BASO % 0.8 % 06/18/2018 Cbc With Differential/Platelet 57087 NEUTROPHIL ABS # 2.45 thou/uL 06/18/2018 Cbc With Differential/Platelet 56336 LYMPH ABS # 1.64 thou/uL 06/18/2018 Cbc With Differential/Platelet 42383 MONOCYTE ABS # 0.34 thou/uL 06/18/2018 Cbc With Differential/Platelet 44986 EOS ABS # 0.09 thou/uL 8 Cbc With Differential/Platelet 65080 BASO ABS # 0.04 thou/uL 06/18/2018 Review [...] Procedure Codes Date THER/PROPH/DIAG INJ SC/IM CPT-4: 90184 12/29/2018 THER/PROPH/DIAG INJ SC/IM CPT-4: 78955 12/16/2018 THER/PROPH/DIAG INJ SC/IM CPT-4: 23748 11/15/2018 THER/PROPH/DIAG INJ SC/IM CPT-4: 22961 09/28/2018 THER/PROPH/DIAG INJ SC/IM CPT-4: 69328 09/16/2018 THER/PROPH/DIAG INJ SC/IM CPT-4: 62320 09/02/2018 THER/PROPH/DIAG INJ SC/IM CPT-4: 21109 08/19/2018 IMMUNIZATION ADMIN CPT- 4: 64601 08/02/2018 FLU VAC NO PRSV 4 VA L 3 YRS+ CPT-4: 81083 08/02/2018 THER/PROPH/DIAG INJ SC/IM CPT-4: 01467 07/15/2018 THER/PROPH/DIAG INJ SC/IM CPT-4: 94592 06/17/2018 THER/PROPH/DIAG INJ SC/IM CPT-4: 89156 05/21/2018 THER/PROPH/DIAG INJ SC/IM CPT-4: 14896 08/03/2015 ROCEPHIN, PER 250 MG CPT-4: J0696 08/03/2015 Vital Signs Date Vital 12/29/2018 Blood Pressure 1: 144/90 Code: 8480-6 BMI: 34.8 Code: 81392-0 Heart Rate 1: 91 bpm Height: 5'7" SpO2: 98% Weight: 222 lbs 12/20/2018 Blood Pressure 1: 124/76 Code: 8480-6 BMI: 35.4 Code: 67289-5 Heart Rate 1: 79 bpm Height: 5'7" SpO2: 99% Weight: 226 lbs 12/16/2018 Blood Pressure 1: 160/90 Code: 8480-6 BMI: 35.4 Code: 52757-3 Heart Rate 1: 90 bpm Height: 5'7" SpO2: 95% Weight: 226 lbs 11/01/2018 Blood Pressure 1: 146/82 Code: 8480-6 BMI: 36.0 Code: 53535-2 Heart Rate 1: 87 bpm Height: 5'7" SpO2: 98% Weight: 230 lbs 09/24/2018 Blood Pressure 1: 140/82 Code: 8480-6 BMI: 36.0 Code: 55786-4 Heart Rate 1: 86 bpm Height: 5'7" SpO2: 98% Temperature: 37.1 (C ) / 98.7 (F) Weight: 230 lbs 08/16/2018 Blood Pressure 1: 148/82 Code: 8480-6 Blood Pressure 2: 157/92 Code: 8480-6 BMI: 35.9 Code: 60563-0 Heart Rate 1: 72 bpm Height: 5'7" SpO2: 96% Weight: 229 lbs 08/02/2018 Blood Pressure 1: 142/86 Code: 8480-6 BMI: 35.2 Code: 26069-1 Heart Rate 1: 101 bpm Height: 5'7" SpO2: 97% Weight: 225 lbs 05/31/2018 Blood Pressure 1: 134/82 Code: 8480-6 BMI: 35.4 Code: 60119-9 Heart Rate 1: 91 bpm Height: 5'7" SpO2: 96% Weight: 226 lbs 05/20/2018 Blood Pressure 1: 160/100 Code: 8480-6 BMI: 35.2 Code: 91417-6 Heart Rate 1: 89 bpm Height: 5'7" SpO2: 98% Weight: 225 lbs 05/10/2018 Blood Pressure 1: 124/70 Code: 8480-6 BMI: 35.1 Code: 77936-3 Heart Rate 1: 93 bpm Height: 5'7" SpO2: 99% Weight: 224 lbs 01/15/2018 Blood Pressure 1: 142/92 Code: 8480-6 BMI: 36.3 Code: 49548-8 Heart Rate 1: 77 bpm Height: 5'7" SpO2: 98% Weight: 232 lbs 12/15/2017 Blood Pressure 1: 156/98 Code: 8480-6 BMI: 36.2 Code: 25057-0 Heart Rate 1: 87 bpm Height: 5'7" [...] vision 12/15/2017 None vision change Quality ac shda 12/15/2017 None vision change Onset and Resolution sudden in onset 12/15/2017 None vision change Onset of Symptom 3.5 weeks ago 12/15/2017 None vision change Limitation on Activities severely limits vision 12/15/2017 None vision change Triggers n o known associated factors 12/15/2017 None Advance Directives No Advance Directive data Encounters Encounter Performer Loca tion Codes Date ([id number]) [id number] EST. 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 PATIENT, LEVEL III Diagnosis: Pain in right arm[ICD10: M79.601] Sonia Gonzalez MD, [facility] CPT-4: 21946 12/20/2018 [id number]) [id number] EST. 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 PATIENT, LEVEL III Diagnosis: Acute upper respiratory infection, unspecified[ICD10: J06.9] Diagnosis: Other allergic rhinitis[ICD10: J30.89] Sonia Gonzalez MD, [facility] CPT-4: 75994 09/24/2018 ([id number]) 88815 EST. 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 P ATIENT, LEVEL IV Diagnosis: Essential (primary) hypertension[ICD10: I10] Diagnosis: Cervicalgia[ICD10: M54.2] Radha Gonzalez MD, [facility] CPT-4: 76205 05/31/2018 ([id number]) 57215 EST. 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 12/29/2018 Appointment: Radha Gonzalez WPtel: [address] [place], [place] [id number] (15 min) Moderate 12/29/2018 Patient Education: Patient Medication Summary Completed 12/29/2018 Patient Education: .Cervicalgia Neck Pain Completed 12/29/2018 Patient Education: Patient Medication Summary Completed 12/21/2018 Care Plan: %Hba1C add to blood from 12/17 LOINC : 72016-5 Pending 12/21/2018 Visit Plan: Right arm pain - dayna deformity noted - will refer to ortho - The pt is to use prn antiinflammatories to manage acute pain. The patient is to call the office if the pain is worsening or does not improve. 12/20/2018 Appointment: Sonia Potter WPtel: [facility]2 [facility] (15 min) Moderate 12/20/2018 Patient Education: [...] with testosterone. 12/16/2018 Appointment: Radha Gonzalez WPtel: [facility]1 [facility] (15 min) Moderate 12/16/2018 Patient Education: Patient [...] as needed. 11/01/2018 Appointment: Radha Gonzalez WPtel: [facility]0 [facility] (15 min) Moderate 11/01/2018 Patient [...] allergy spray. 09/24/2018 Appointment: Sonia Potter WPtel: [phone] [facility] (15 min) Moderate 09/24/2018 Patient [...] at home. Multiple symptoms - referral to [facility] - appt in September 30, 2018. 08/16/2018 Appointment: Radha Gonzalez WPtel: [phone] [facility] (15 min) Moderate 08/16/2018 Patient Education: [...] at home. Multiple symptoms - referral to [facility] - rashes, hypogonadism, optic neuritis - [...] 08/02/2018 Care Plan: Referral Order SNOMED-CT : 467920372 Pending 08/02/2018 Appointment: Injection 07/15/2018 Patient Education: [...] home. [facility]ervical [facility] I have also recommended a Referral to Dr. Dunaway. I have called and talked to Dr. Dunaway - he looked at the pt's imaging and agrees that getting the pt in to be seen soon would be a preferred option. 05/31/2018 Appointment: [phone] [facility] [place] (15 min) Moderate 05/31/2018 Patient Education: Patient Medication Summary Completed 05/31/2018 Care Plan: Referral Order SNOMED-CT : [id number] Pending 05/31/2018 Care Plan: Referral Order SNOMED-CT : [id number] Pending 05/31/2018 Appointment: Injection 05/21/2018 Patient Education: Patient Medication Summary Completed 05/21/2018 Care Plan: Referral Order SNOMED-CT : [id number] Pending 05/21/2018 Visit Plan: Cervical and thoracic s tenosis with spinal cord compression -refer for appt with Dr Marr -rx for hydrocodone for pain-start gabapentin at bedtime Soft tissue lesion-left chest-schedule CTfor further evaluation HTN-elevated today-hold adderall-monitor blood pressure 05/20/2018 Appointment: Hannah Simons WPtel: [phone] [phone] [place] (15 min) Moderate 05/20/2018 [...] order this. 05/10/2018 Appointment: Sonia Potter WPtel: [facility]4 [facility] [place] (15 min) Moderate 05/10/2018 Patient Education: Patient Medication Summary Completed 05/10/2018 Visit Plan: Sleep apnea - rx for cp ap - actually autopap was recommended and pt given rx today. HTN - referral to dr. kapoor - pt needs stress testing. 01/15/2018 Appointment: Radha Gonzalez WPtel: [facility]4 [facility] [place] (15 min) Moderate 01/15/2018 Patient Education: Patient Medication Summary Completed 01/15/2018 Care Plan: Referral Order SNOMED-CT : [id number] Pending 01/15/2018 Visit Plan: Well Adult - [...] month. 12/15/2017 Appointment: Radha Gonzalez WPtel: [phone] [facility]66[facility] New Patient 12/15/2017 Patient Education: Patient Medication Summary Completed 12/15/2017 Care Plan: CHEST X-RAY 2VW FRONTAL&LATL LOINC : 82140-7 Pending 12/15/2017 Appointment: Radha Gonzalez WPtel: [phone] [facility]66[facility] (15 min) Moderate 12/08/2017 Appointment: (S) New Patient 08/13/2015 Visit Plan: steri strip placed on t humb of right hand - antibiotic shot given to patient and rx for keflex 500mg qid x 10 days given to the patient to fill prior to his trip to [place] 08/03/2015 Patient Education: Patient Medication Summary Completed 08/03/2015 Referral: External, Ordering Provider 08/03 Referral info faxed to [facility]. Patient informed to be expecting a call from them with appt info Appointment Requested Referral: External, Ordering Provider Referral Appointment Requested Referral: External, Ordering Provider I called today; they will call him to schedule. Completed Referral: Armani Dunaway Referral Appointment Requested Referral: Mayte Kapoor Referral Appointment Requested Referral: [facility] WPtel: [address] Referral Appointment Requested Referral: External, Ordering [...] at home. Multiple symptoms - referral to [facility] - rashes, hypogonadism, optic neuritis - [...] at home. Multiple symptoms - referral to [facility] - appt in September 30, 2018. [...] to fill prior to his trip to [place] will refill meds for 90 days Will [...]
--- OUTSIDE RECORDS SUMMARY | 2020-04-28 00:36 | XMS REPORT | CCD ---
Author Author Nilton Gonzalez Organization [facility] Address [address] [place] [address] Phone Care Team Providers Care Morphologist Name Role Phone PP Unavailable CCM Unavailable Summary Purpose Interface Exchange Insurance Providers Payer name Policy type / Coverage type Covered green party ID Effective Begin Date Effective End Date [employer] [id number] 2018 Unknown Family history Brother Diagnosis Age At Onset Alcoholism Unknown Father Diagnosis Age At Onset Hypercholesterolemia Unknown Social History Social History Element Codes Description Effective Dates Marital status Unknown S chanda 12/15/2017 Number of children Unknown 1 12/15/2017 Employment Unknown Curre 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 employed [employer] 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[employer] at [employer] 12/15/[address]: 558031288 Never smoker 12/15/[address]: 741670 Currently drinks alcohol <1 per week 12/15/2017 [...] 5 mg-fanny taminophen 325 mg tablet RxNorm: 820090 1-2 Tablet(s) PO Q6 a s needed 03/21/2019 No Stop Date Active Adderall 30 mg tablet RxNorm: 840466 2 Tablet(s) PO daily 03/21/2019 04/19/2019 Active tramadol 50 mg tablet RxNorm: 659581 1-2 Tablet(s) PO Q6 as needed 03/14/2019 No Stop Date Active hydrocodone 5 mg-fanny taminophen 325 mg tablet RxNorm: 271729 1-2 Tablet(s) PO Q6 a s needed 02/23/2019 03/20/2019 Inactive Adderall 30 mg tablet RxNorm: 450528 2 Tablet(s) PO daily 02/23/2019 03/20/2019 Inactive Adderall 30 mg tablet RxNorm: 438718 2 Tablet(s) PO daily 01/24/2019 02/22/2019 Inactive ketoconazole 2 % top ical cream RxNorm: 407067 APPLY ONE GRAM TOPICA LLY TWICE A DAY 01/12/2019 01/26/2019 In active tramadol 50 mg tablet RxNorm: 887859 1-2 Tablet(s) PO Q6 as needed 01/11/2019 03/13/2019 In active atenolol 50 mg tablet RxNorm: 416455 1.5 Tablet(s) PO BID 12/29/2018 12/23/2019 Active hydrocodone 5 mg-fanny taminophen 325 mg tablet RxNorm: 940738 1-2 Tablet(s) PO Q6 a s needed 12/29/2018 02/22/2019 Inactive Adderall 30 mg tablet RxNorm: 956171 2 Tablet(s) PO daily 12/29/2018 01/23/2019 Inactive hydrocodone 5 mg-fanny taminophen 325 mg tablet RxNorm: 656289 1-2 Tablet(s) PO Q6 a s needed 12/29/2018 12/28/2018 Inactive testosterone cypiona te 200 mg/mL intramuscular oil RxNorm: 6664309 1.25 Milliliter(s) IM 12/29/2018 12/29/2018 Inactive hydrocodone 5 mg-fanny taminophen 325 mg tablet RxNorm: 461634 1 Tablet(s) PO TID TX N 12/28/2018 12/28/2018 In active testosterone cypiona te 200 mg/mL intramuscular oil RxNorm: 5020198 1.25 Milliliter(s) IM 2 x month 12/22/2018 04/12/2019 Inactive gabapentin 300 mg ca psule RxNorm: 862149 1 Capsule(s) PO QID 12/16/2018 12/10/2019 Active testosterone cypiona te 200 mg/mL intramuscular oil RxNorm: 5534966 Milliliter(s) IM 12/16/2018 12/16/2018 In active Voltaren 1 % topical gel RxNorm: 612859 2 Gram(s) APPLY TOPIC ALLY four TIMES A DAY 12/16/2018 01/20/2019 In active trazodone 100 mg tablet RxNorm: 633922 TAKE ONE TABLET BY MOUTH EVERY NIGHT AT BEDTIME 12/07/2018 06/04/2019 Active hydrocodone 5 mg-fanny taminophen 325 mg tablet RxNorm: 525222 1 Tablet(s) PO TID TX N 11/29/2018 12/27/2018 In active Adderall 30 mg tablet RxNorm: 213135 2 Tablet(s) PO daily 11/29/2018 12/28/2018 Inactive clindamycin 1 %-arthur oyl peroxide 5 % topical gel RxNorm: 873846 TOP APPLY TO AFFECTED AREA(S) ON SERNA TWO TIMES A DAY 11/17/2018 No Stop Date Active testosterone cypiona te 200 mg/mL intramuscular oil RxNorm: 6626303 1 Milliliter(s) IM 2 x month 11/17/2018 12/21/2018 Inactive Zorvolex 35 mg capsule RxNorm: 0549580 1 Capsule(s) PO TID as needed for pain 11/15/2018 05/13/2019 Ac tive ketoconazole 2 % top ical cream RxNorm: 020387 APPLY ONE GRAM TOPICA LLY TWICE A DAY 11/15/2018 11/29/2018 In active testosterone cypiona te 200 mg/mL intramuscular oil RxNorm: 6575818 1 Milliliter(s) IM 11/15/2018 11/14/2018 Inactive hydrocodone 5 mg-fanny taminophen 325 mg tablet RxNorm: 136474 1 Tablet(s) PO TID TX N 11/02/2018 11/28/2018 In active Singulair 10 mg tablet RxNorm: 717800 1 Tablet(s) PO daily 11/01/2018 07/28/2019 Active testosterone cypiona te 200 mg/mL intramuscular oil RxNorm: 0107257 1 Milliliter(s) IM 2 x month 11/01/2018 11/16/2018 Inactive Adderall 30 mg tablet RxNorm: 671614 2 Tablet(s) PO daily 10/29/2018 11/27/2018 Inactive gabapentin 300 mg ca psule RxNorm: 808647 1 Capsule(s) PO BID m ay take TID 10/19/2018 12/15/2018 In active gabapentin 300 mg ca psule RxNorm: 163214 1 Capsule(s) PO BID m ay take TID 10/19/2018 10/18/2018 In active alprazolam 1 mg tablet RxNorm: 095096 1 Tablet(s) PO TID as needed 10/15/2018 12/13/2018 Inactive testosterone cypiona te 200 mg/mL intramuscular oil RxNorm: 101001 Milliliter(s) IM 09/28/2018 09/28/2018 In active pravastatin 40 mg ta blet RxNorm: 384411 TAKE ONE TABLET BY MO [facility] EVERY NIGHT AT BEDTIME 09/27/2018 09/21/2019 Active Tamiflu 75 mg capsule RxNorm: 892389 1 Capsule(s) PO BID 09/24/2018 09/28/2018 Inactive Adderall 30 mg tablet RxNorm: 159936 2 Tablet(s) PO daily 09/20/2018 10/19/2018 Inactive hydrocodone 5 mg-fanny taminophen 325 mg tablet RxNorm: 767037 1 Tablet(s) PO TID TX N 09/20/2018 11/01/2018 In active testosterone cypiona te 200 mg/mL intramuscular oil RxNorm: 760400 Milliliter(s) IM 09/16/2018 09/16/2018 In active testosterone cypiona te 200 mg/mL intramuscular oil RxNorm: 935814 1 Milliliter(s) IM 09/02/2018 09/02/2018 Inactive testosterone cypiona te 200 mg/mL intramuscular oil RxNorm: 324260 Milliliter(s) IM 08/19/2018 08/19/2018 In active Adderall 30 mg tablet RxNorm: 463082 2 Tablet(s) PO daily 08/18/2018 09/16/2018 Inactive tramadol 50 mg tablet RxNorm: 127664 1-2 Tablet(s) PO Q6 as needed 08/18/2018 01/12/2019 In active Dexilant 60 mg capsu le, delayed release RxNorm: 450482 1 Capsule(s) PO BID 08/17/2018 08/11/2019 Ac tive ketoconazole 2 % top ical cream RxNorm: 616839 1 Gram(s) TOP BID 08/17/2018 08/26/2018 Inactive Zorvolex 35 mg capsule RxNorm: 8513591 1 Capsule(s) PO TID as needed for pain 08/17/2018 08/16/2018 In active atenolol 50 mg tablet RxNorm: 632239 1 Tablet(s) PO BID 08/17/2018 12/28/2018 Inactive Zorvolex 35 mg capsule RxNorm: 4486351 1 Capsule(s) PO TID as needed for pain 08/17/2018 11/14/2018 In active ketoconazole 2 % top ical cream RxNorm: 599008 1 Gram(s) TOP BID 08/02/2018 08/11/2018 Inactive hydrocortisone 2.5 % topical cream RxNorm: 678540 1 Application TOP BID 07/21/2018 No Stop Date Active Adderall 30 mg tablet RxNorm: 302174 2 Tablet(s) PO daily 07/20/2018 08/17/2018 Inactive testosterone cypiona te 200 mg/mL intramuscular oil RxNorm: 924602 Milliliter(s) IM 07/15/2018 07/15/2018 In active alprazolam 1 mg tablet RxNorm: 435133 1 Tablet(s) PO TID as needed 07/12/2018 09/07/2018 Inactive hydrocodone 5 mg-fanny taminophen 325 mg tablet RxNorm: 829437 1 Tablet(s) PO TID TX N 06/30/2018 09/19/2018 In active pravastatin 40 mg ta blet RxNorm: 849290 1 Tablet(s) PO QHS 06/18/2018 09/15/2018 Inactive Adderall 30 mg tablet RxNorm: 574461 2 Tablet(s) PO daily 06/18/2018 07/17/2018 Inactive testosterone cypiona te 200 mg/mL intramuscular oil RxNorm: 645801 Milliliter(s) IM 06/17/2018 06/17/2018 In active Voltaren 1 % topical gel RxNorm: 068607 APPLY TOPICALLY TWO T IMES A DAY 06/16/2018 07/21/2018 In active Vitamin D2 50,000 un it capsule RxNorm: 7216647 1 Capsule(s) PO QW 05/21/2018 No Stop Date Active Adderall 30 mg tablet RxNorm: 187998 2 Tablet(s) PO daily 05/21/2018 06/17/2018 Inactive testosterone cypiona te 200 mg/mL intramuscular oil RxNorm: 496704 Milliliter(s) IM 05/21/2018 05/21/2018 In active testosterone cypiona te 200 mg/mL intramuscular oil RxNorm: 0511386 1 Milliliter(s) IM monthly 05/20/2018 09/16/2018 Inactive testosterone cypiona te 200 mg/mL intramuscular oil RxNorm: 329013 1 Milliliter(s) IM monthly 05/20/2018 05/19/2018 Inactive hydrocodone 5 mg-fanny taminophen 325 mg tablet RxNorm: 252932 1 Tablet(s) PO TID TX N 05/20/2018 06/29/2018 In active Vitamin D2 50,000 un it capsule RxNorm: 9895690 1 Capsule(s) PO QW 05/18/2018 05/20/2018 Inactive triamcinolone aceton destin 0.025 % topical cream RxNorm: 4857969 1 Application TOP BI D 05/13/2018 No Stop Date Active Dexilant 60 mg capsu le, delayed release RxNorm: 223651 1 Capsule(s) PO BID 05/13/2018 08/16/2018 In active Zorvolex 35 mg capsule RxNorm: 0161497 1 Capsule(s) PO TID as needed for pain 05/12/2018 08/09/2018 In active Voltaren 1 % topical gel RxNorm: 996672 1 Application TOP BID 05/12/2018 06/15/2018 Inactive acyclovir 400 mg tablet RxNorm: 279786 1 Tablet(s) PO TID as needed take at ons et of symptoms of cold sores x 5 days 05/10/2018 No Stop Date Active paroxetine 20 mg tablet RxNorm: 3969291 2 Tablet(s) PO QHS 05/10/2018 10/31/2019 Active ProAir HFA 90 mcg/ac tuation aerosol inhaler RxNorm: 153510 1 Puff(s) INH QID as needed 05/10/2018 No Stop Date Active baclofen 20 mg tablet RxNorm: 008797 1 Tablet(s) PO TID as needed muscle spas ms 05/10/2018 06/08/2018 In active Singulair 10 mg tablet RxNorm: 267815 1 Tablet(s) PO daily 05/10/2018 08/07/2018 Inactive atenolol 50 mg tablet RxNorm: 014659 1 Tablet(s) PO BID 05/10/2018 08/07/2018 Inactive triamcinolone aceton destin 0.025 % topical cream RxNorm: 3157935 1 Application TOP BI D 05/10/2018 05/12/2018 In active tramadol 50 mg tablet RxNorm: 372670 1 Tablet(s) PO TID as needed 05/10/2018 05/19/2018 Inactive Dexilant 60 mg capsu le, delayed release RxNorm: 631627 1 Capsule(s) PO daily 05/10/2018 05/12/2018 In active alprazolam 1 mg tablet RxNorm: 825448 1 Tablet(s) PO TID as needed 05/10/2018 08/06/2018 Inactive trazodone 100 mg tablet RxNorm: 528203 1 Tablet(s) PO QHS 05/10/2018 11/05/2018 Inactive cyclobenzaprine 10 m g tablet RxNorm: 097420 1 Tablet(s) PO TID as needed muscle spasms 05/07/2018 07/12/2018 Inactive trazodone 100 mg tablet RxNorm: 297208 1 Tablet(s) PO QHS 05/07/2018 05/09/2018 Inactive Adderall 30 mg tablet RxNorm: 269886 2 Tablet(s) PO daily 04/19/2018 05/18/2018 Inactive alprazolam 1 mg tablet RxNorm: 014054 1 Tablet(s) PO BID 04/19/2018 05/09/2018 Inactive Adderall 30 mg tablet RxNorm: 480808 2 Tablet(s) PO daily 03/26/2018 04/18/2018 Inactive paroxetine 20 mg tablet RxNorm: 2562333 2 Tablet(s) PO QHS 03/15/2018 05/09/2018 Inactive Adderall 30 mg tablet RxNorm: 279160 2 Tablet(s) PO daily 02/25/2018 03/25/2018 Inactive cyclobenzaprine 10 m g tablet RxNorm: 852352 1 Tablet(s) PO TID as needed muscle spasms 02/22/2018 05/06/2018 Inactive tramadol 50 mg tablet RxNorm: 994310 1 Tablet(s) PO TID as needed 02/22/2018 03/07/2018 Inactive tramadol 50 mg tablet RxNorm: 018739 1 Tablet(s) PO TID as needed 02/22/2018 02/21/2018 Inactive trazodone 100 mg tablet RxNorm: 276484 1 Tablet(s) PO QHS 02/03/2018 05/03/2018 Inactive trazodone 100 mg tablet RxNorm: 511986 1 Tablet(s) PO QHS 02/03/2018 02/02/2018 Inactive Adderall 30 mg tablet RxNorm: 431399 2 Tablet(s) PO daily 01/27/2018 02/18/2018 Inactive acyclovir 400 mg tablet RxNorm: 784062 1 Tablet(s) PO TID as needed take at ons et of symptoms of cold sores x 5 days 01/15/2018 05/09/2018 Inactive Bactrim DS 800 mg-16 0 mg tablet RxNorm: 302304 1 Tablet(s) PO BID 01/11/2018 01/17/2018 Inactive Bactrim DS 800 mg-16 0 mg tablet RxNorm: 797948 1 Tablet(s) PO BID 01/11/2018 01/10/2018 Inactive Dexilant 60 mg capsu le, delayed release RxNorm: 126847 1 Capsule(s) PO daily 12/23/2017 05/09/2018 In active Dexilant 60 mg capsu le, delayed release RxNorm: 812856 1 Capsule(s) PO daily 12/23/2017 12/22/2017 In active atenolol 50 mg tablet RxNorm: 308300 1 Tablet(s) PO BID 12/15/2017 05/09/2018 Inactive alprazolam 1 mg tablet RxNorm: 527793 1-1.5 Tablet(s) PO daily 12/15/2017 04/18/2018 Inactive ceftriaxone 500 mg s olution for injection RxNorm: 8223905 Inj 08/03/2015 08/03/2015 Inactive paroxetine 20 mg tablet RxNorm: 8514922 2 Tablet(s) PO QHS 08/01/2015 10/29/2015 Inactive pravastatin 40 mg ta blet RxNorm: 587197 1/2 Tablet(s) PO QHS 08/01/2015 12/14/2017 Inactive Trazadone 100mg 100 mg RxNorm: 1 PO daily 08/01/2015 11/27/2015 Inactive Trazadone 100mg 100 mg RxNorm: 1 PO daily 08/01/2015 05/04/2018 Inactive atenolol 50 mg tablet RxNorm: 103628 1 Tablet(s) PO daily 08/01/2015 10/29/2015 Inactive ibuprofen 800 mg tablet RxNorm: 034673 1 Tablet(s) PO BID -TID No Start Date Active Fish Oil 360 mg-1,20 0 mg capsule RxNorm: 835683 1 Capsule(s) PO BID No Start Date Active Zyrtec 10 mg tablet RxNorm: 3136210 1 Tablet(s) PO daily No Start Date Active pravastatin 40 mg ta blet RxNorm: 517051 1/2 Tablet(s) PO QHS No Start Date 07/31/2015 Inactive Benadryl Allergy 25 mg tablet RxNorm: 9012076 1 Tablet(s) PO daily No Start Date 07/19/2018 Inactive Adderall 30 mg tablet RxNorm: 427150 2 Tablet(s) PO daily No Start Date 01/26/2018 Inactive Aspirin Low Dose 81 mg tablet,delayed release RxNorm: 580194 1 Tablet(s) PO BID No Start Date 07/19/2018 Inactive Singulair 10 mg tablet RxNorm: 349810 1 Tablet(s) PO daily No Start Date 05/09/2018 Inactive cyclobenzaprine 10 m g tablet RxNorm: 836995 1 Tablet(s) PO TID as needed muscle spasms No Start Date 02/21/2018 Inactive Trazadone 100mg 100 mg RxNorm: 1 PO daily No Start Date 07/31/2015 Inactive clindamycin 1 %-arthur oyl peroxide 5 % topical gel RxNorm: 841633 TOP APPLY TO AFFECTED AREA(S) ON SERNA TWO TIMES A DAY No Start Date 11/16/2018 Inactive hydrocortisone 2.5 % topical cream RxNorm: 106811 1 Application TOP BID No Start Date 07/20/2018 Inactive alprazolam 1 mg tablet RxNorm: 323314 2 Tablet(s) PO daily No Start Date 12/14/2017 Inactive tramadol 50 mg tablet RxNorm: 404101 1-2 Tablet(s) PO Q6 as needed No Start Date 08/17/2018 Inactive Vitamin D2 50,000 un it capsule RxNorm: 7558602 1 Capsule(s) PO QW No Start Date 05/17/2018 Inactive pantoprazole 40 mg t ablet,delayed release RxNorm: 408137 1 Tablet(s) PO BID No Start Date 12/22/2017 Inactive atenolol 50 mg tablet RxNorm: 715299 1 Tablet(s) PO daily No Start Date 07/31/2015 Inactive paroxetine 20 mg tablet RxNorm: 779804 2 Tablet(s) PO QHS No Start Date 07/31/2015 Inactive Medication Administered Medication Codes Instruc tions Start Date Status testosterone cypionate 200 mg/mL intramuscular oil RxNorm: 4157594 1.25Milliliter 12/29/2018 No longer Active testosterone cypionate 200 mg/mL intramuscular oil RxNorm: 9607620 Milliliter 12/16/2018 No longer Active testosterone cypionate 200 mg/mL intramuscular oil RxNorm: 0394422 1Milliliter 11/15/2018 No longer Active testosterone cypionate 200 mg/mL intramuscular oil RxNorm: 079108 Milliliter 09/28/2018 No longer Active testosterone cypionate 200 mg/mL intramuscular oil RxNorm: 846368 Milliliter 09/16/2018 No longer Active testosterone cypionate 200 mg/mL intramuscular oil RxNorm: 425253 1Milliliter 09/02/2018 No longer Active testosterone cypionate 200 mg/mL intramuscular oil RxNorm: 514296 Milliliter 08/19/2018 No longer Active testosterone cypionate 200 mg/mL intramuscular oil RxNorm: 591142 Milliliter 07/15/2018 No longer Active testosterone cypionate 200 mg/mL intramuscular oil RxNorm: 642501 Milliliter 06/17/2018 No longer Active testosterone cypionate 200 mg/mL intramuscular oil RxNorm: 454045 Milliliter 05/21/2018 No longer Active ceftriaxone 500 mg solution for injection RxNorm: 4835677 08/03/2015 No longer A ctive Immunizations Vaccine [...] Code Result Date Comp. Metabolic Panel (14) 00846 GLUCOSE 117 mg/dL 12/17/2018 Comp. Metabolic Panel (14) 44830 BUN 17 mg/dL 12/17/2018 Comp. Metabolic Panel (14) 66301 CREATININE 0.99 mg/dL 12/17/2018 Comp. Metabolic Panel (14) 66850 SODIUM 137 mmol/L 12/17/2018 Comp. Metabolic Panel (14) 06836 POTASSIUM 4.6 mmol/L 12/17/2018 Comp. Metabolic Panel (14) 72736 CHLORIDE 102 mmol/L 12/17/2018 Comp. Metabolic Panel (14) 85689 CARBON DIOXIDE 21 mmol/L 12/17/2018 Comp. Metabolic Panel (14) 47752 CALCIUM 9.4 mg/dL 12/17/2018 Comp. Metabolic Panel (14) 40008 TOTAL PROTEIN 7.5 g/dL 12/17/2018 Comp. Metabolic Panel (14) 48458 ALBUMIN 5.1 g/dL 12/17/2018 Comp. Metabolic Panel (14) 22560 ALKALINE PHOSPHATASE 79 U/L 12/17/2018 Comp. Metabolic Panel (14) 79769 TOTAL BILIRUBIN 0.5 mg/dL 12/17/2018 Comp. Metabolic Panel (14) 71039 SGOT (AST) 34 U/L 12/17/2018 Comp. Metabolic Panel (14) 49968 SGPT (ALT) 40 U/L 12/17/2018 Comp. Metabolic Panel (14) 49463 eGFR (mL/min/1.73m2) 115 12/17/2018 Comp. Metabolic Panel (14) 54553 INTERPRETATION 12/17/2018 Testosterone Serum 083363 TESTOSTERONE 96.8 ng/dL 12/17/2018 Cbc With Differential/Platelet 04325 WBC 5.61 thou/uL 9 Cbc With Differential/Platelet 28395 RBC 5.53 mil/uL 12/17/2018 Cbc With Differential/Platelet 58739 HEMOGLOBIN 15.4 g/dL 12/17/2018 Cbc With Differential/Platelet 13658 HEMATOCRIT 48.1 % 12/17/2018 Cbc With Differential/Platelet 50219 MCV 87.0 fL 12/17/2018 Cbc With Differential/Platelet 72170 MCH 27.8 pg 12/17/2018 Cbc With Differential/Platelet 61228 MCHC 32.0 g/dL 12/17/2018 Cbc With Differential/Platelet 87119 RDW-CV 13.9 % 12/17/2018 Cbc With Differential/Platelet 24113 PLATELET COUNT 294 thou/uL 12/17/2018 Cbc With Differential/Platelet 93172 NEUTROPHIL % 71.2 % 12/17/2018 Cbc With Differential/Platelet 44707 LYMPHOCYTE % 22.2 % 12/17/2018 Cbc With Differential/Platelet 04403 MONOCYTE % 5.4 % 12/17/2018 Cbc With Differential/Platelet 55662 EOS % 0.9 % 12/17/2018 Cbc With Differential/Platelet 19322 BASO % 0.4 % 12/17/2018 Cbc With Differential/Platelet 56724 NEUTROPHIL ABS # 3.99 thou/uL 12/17/2018 Cbc With Differential/Platelet 55530 LYMPH ABS # 1.25 thou/uL 12/17/2018 Cbc With Differential/Platelet 28502 MONOCYTE ABS # 0.30 thou/uL 12/17/2018 Cbc With Differential/Platelet 25875 EOS ABS # 0.05 thou/uL 9 Cbc With Differential/Platelet 90766 BASO ABS # 0.02 thou/uL 12/17/2018 Lipid Panel 86701 CHOLES TEROL 227 mg/dL 12/17/2018 Lipid Panel 77895 TRIGLY CERIDES 229 mg/dL 12/17/2018 Lipid Panel 84621 HDL 41 mg/dL 12/17/2018 Lipid Panel 49657 CHOLES TEROL/HDL 5.54 12/17/2018 Lipid Panel 09699 LDL (C ALCULATED) 140 mg/dL 12/17/2018 Lipid Panel 10466 LDL/HDL 3.41 12/17/2018 Lipid Panel 86699 INTERP RETATION 12/17/2018 Tsh 003091 TSH 1.190 uIU/mL 12/17/2018 Testosterone Serum 412088 TESTOSTERONE 44.1 ng/dL 08/18/2018 Hemoglobin 955195 WBC 7.62 thou/uL 08/17/2018 Hemoglobin 654723 RBC 5.23 mil/uL 08/17/2018 Hemoglobin 20020721 HEMOGL OBIN 15.0 g/dL 08/17/2018 Hemoglobin 531075 HEMATO CRIT 45.0 % 08/17/2018 Hemoglobin 301745 MCV 86.0 fL 08/17/2018 Hemoglobin 781758 MCH 28.7 pg 08/17/2018 Hemoglobin 135862 MCHC 33.3 g/dL 08/17/2018 Hemoglobin 566457 RDW-CV 12.9 % 08/17/2018 Hemoglobin 071807 PLATEL ET COUNT 313 thou/uL 08/17/2018 Hematocrit 543916 WBC 7.62 thou/uL 08/17/2018 Hematocrit 556812 RBC 5.23 mil/uL 08/17/2018 Hematocrit 594068 HEMOGL OBIN 15.0 g/dL 08/17/2018 Hematocrit 288079 HEMATO CRIT 45.0 % 08/17/2018 Hematocrit 436008 MCV 86.0 fL 08/17/2018 Hematocrit 339572 MCH 28.7 pg 08/17/2018 Hematocrit 492661 MCHC 33.3 g/dL 08/17/2018 Hematocrit 550543 RDW-CV 12.9 % 08/17/2018 Hematocrit 806228 PLATEL ET COUNT 313 thou/uL 08/17/2018 Culture Mrsa 352952 MRSA CULTURE SEE NOTES 06/21/2018 Comp. Metabolic Panel (14) 80680 GLUCOSE 101 mg/dL 06/18/2018 Comp. Metabolic Panel (14) 40547 BUN 18 mg/dL 06/18/2018 Comp. Metabolic Panel (14) 69365 CREATININE 0.99 mg/dL 06/18/2018 Comp. Metabolic Panel (14) 40452 SODIUM 141 mmol/L 06/18/2018 Comp. Metabolic Panel (14) 97310 POTASSIUM 4.3 mmol/L 06/18/2018 Comp. Metabolic Panel (14) 84581 CHLORIDE 103 mmol/L 06/18/2018 Comp. Metabolic Panel (14) 59029 CARBON DIOXIDE 23 mmol/L 06/18/2018 Comp. Metabolic Panel (14) 44826 CALCIUM 9.8 mg/dL 06/18/2018 Comp. Metabolic Panel (14) 40938 TOTAL PROTEIN 7.1 g/dL 06/18/2018 Comp. Metabolic Panel (14) 48820 ALBUMIN 5.2 g/dL 06/18/2018 Comp. Metabolic Panel (14) 18094 ALKALINE PHOSPHATASE 65 U/L 06/18/2018 Comp. Metabolic Panel (14) 23229 TOTAL BILIRUBIN 0.6 mg/dL 06/18/2018 Comp. Metabolic Panel (14) 57708 SGOT (AST) 21 U/L 06/18/2018 Comp. Metabolic Panel (14) 86333 SGPT (ALT) 24 U/L 06/18/2018 Comp. Metabolic Panel (14) 55935 eGFR (mL/min/1.73m2) 115 06/18/2018 Comp. Metabolic Panel (14) 65772 INTERPRETATION 06/18/2018 Cbc With Differential/Platelet 68476 WBC 4.55 thou/uL 8 Cbc With Differential/Platelet 63446 RBC 5.13 mil/uL 06/18/2018 Cbc With Differential/Platelet 01453 HEMOGLOBIN 14.4 g/dL 06/18/2018 Cbc With Differential/Platelet 76321 HEMATOCRIT 44.1 % 06/18/2018 Cbc With Differential/Platelet 47216 MCV 85.9 fL 06/18/2018 Cbc With Differential/Platelet 40608 MCH 28.1 pg 06/18/2018 Cbc With Differential/Platelet 13900 MCHC 32.7 g/dL 06/18/2018 Cbc With Differential/Platelet 52893 RDW-CV 13.4 % 06/18/2018 Cbc With Differential/Platelet 40458 PLATELET COUNT 287 thou/uL 06/18/2018 Cbc With Differential/Platelet 75535 NEUTROPHIL % 53.9 % 06/18/2018 Cbc With Differential/Platelet 64110 LYMPHOCYTE % 36.1 % 06/18/2018 Cbc With Differential/Platelet 63671 MONOCYTE % 7.4 % 06/18/2018 Cbc With Differential/Platelet 78855 EOS % 1.9 % 06/18/2018 Cbc With Differential/Platelet 75936 BASO % 0.8 % 06/18/2018 Cbc With Differential/Platelet 91253 NEUTROPHIL ABS # 2.45 thou/uL 06/18/2018 Cbc With Differential/Platelet 23465 LYMPH ABS # 1.64 thou/uL 06/18/2018 Cbc With Differential/Platelet 83536 MONOCYTE ABS # 0.34 thou/uL 06/18/2018 Cbc With Differential/Platelet 79332 EOS ABS # 0.09 thou/uL 8 Cbc With Differential/Platelet 04651 BASO ABS # 0.04 thou/uL 06/18/2018 Review [...] clear 12/15/2017 None Full Exam - General 1995 Ears/Nose/Throat [...] Procedure Codes Date THER/PROPH/DIAG INJ SC/IM CPT-4: 56125 12/29/2018 THER/PROPH/DIAG INJ SC/IM CPT-4: 87592 12/16/2018 THER/PROPH/DIAG INJ SC/IM CPT-4: 86574 11/15/2018 THER/PROPH/DIAG INJ SC/IM CPT-4: 86230 09/28/2018 THER/PROPH/DIAG INJ SC/IM CPT-4: 35685 09/16/2018 THER/PROPH/DIAG INJ SC/IM CPT-4: 11943 09/02/2018 THER/PROPH/DIAG INJ SC/IM CPT-4: 25251 08/19/2018 IMMUNIZATION ADMIN CPT- 4: 61246 08/02/2018 FLU VAC NO PRSV 4 VA L 3 YRS+ CPT-4: 04135 08/02/2018 THER/PROPH/DIAG INJ SC/IM CPT-4: 63595 07/15/2018 THER/PROPH/DIAG INJ SC/IM CPT-4: 87674 06/17/2018 THER/PROPH/DIAG INJ SC/IM CPT-4: 16152 05/21/2018 THER/PROPH/DIAG INJ SC/IM CPT-4: 11585 08/03/2015 ROCEPHIN, PER 250 MG CPT-4: J0696 08/03/2015 Vital Signs Date Vital 12/29/2018 Blood Pressure 1: 144/90 Code: 8480-6 BMI: 34.8 Code: 79766-5 Heart Rate 1: 91 bpm Height: 5'7" SpO2: 98% Weight: 222 lbs 12/20/2018 Blood Pressure 1: 124/76 Code: 8480-6 BMI: 35.4 Code: 37133-4 Heart Rate 1: 79 bpm Height: 5'7" SpO2: 99% Weight: 226 lbs 12/16/2018 Blood Pressure 1: 160/90 Code: 8480-6 BMI: 35.4 Code: 20635-6 Heart Rate 1: 90 bpm Height: 5'7" SpO2: 95% Weight: 226 lbs 11/01/2018 Blood Pressure 1: 146/82 Code: 8480-6 BMI: 36.0 Code: 68291-0 Heart Rate 1: 87 bpm Height: 5'7" SpO2: 98% Weight: 230 lbs 09/24/2018 Blood Pressure 1: 140/82 Code: 8480-6 BMI: 36.0 Code: 53391-0 Heart Rate 1: 86 bpm Height: 5'7" SpO2: 98% Temperature: 37.1 (C ) / 98.7 (F) Weight: 230 lbs 08/16/2018 Blood Pressure 1: 148/82 Code: 8480-6 Blood Pressure 2: 157/92 Code: 8480-6 BMI: 35.9 Code: 40704-9 Heart Rate 1: 72 bpm Height: 5'7" SpO2: 96% Weight: 229 lbs 08/02/2018 Blood Pressure 1: 142/86 Code: 8480-6 BMI: 35.2 Code: 18173-6 Heart Rate 1: 101 bpm Height: 5'7" SpO2: 97% Weight: 225 lbs 05/31/2018 Blood Pressure 1: 134/82 Code: 8480-6 BMI: 35.4 Code: 70779-6 Heart Rate 1: 91 bpm Height: 5'7" SpO2: 96% Weight: 226 lbs 05/20/2018 Blood Pressure 1: 160/100 Code: 8480-6 BMI: 35.2 Code: 54041-9 Heart Rate 1: 89 bpm Height: 5'7" SpO2: 98% Weight: 225 lbs 05/10/2018 Blood Pressure 1: 124/70 Code: 8480-6 BMI: 35.1 Code: 62850-5 Heart Rate 1: 93 bpm Height: 5'7" SpO2: 99% Weight: 224 lbs 01/15/2018 Blood Pressure 1: 142/92 Code: 8480-6 BMI: 36.3 Code: 48040-0 Heart Rate 1: 77 bpm Height: 5'7" SpO2: 98% Weight: 232 lbs 12/15/2017 Blood Pressure 1: 156/98 Code: 8480-6 BMI: 36.2 Code: 49426-2 Heart Rate 1: 87 bpm Height: 5'7" [...] Encounters Encounter Performer Loca tion Codes Date [id number]) [id number] EST. P ATIENT, LEVEL III Diagnosis: Testicular hypofunction[ICD10: E29.1] Diagnosis: Cervicalgia[ICD10: M54.2] Diagnosis: Other fatigue[ICD10: R53.83] Radha Gonzalez MD, [facility] CPT-4: 52930 12/29/2018 [id number] EST. PATIENT, LEVEL III Diagnosis: Pain in right arm[ICD10: M79.601] Sonia Gonzalez MD, [facility] CPT-4: [address] 12/20/2018 [id number]) 40625 EST. 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 PATIENT, LEVEL III Diagnosis: Acute upper respiratory infection, unspecified[ICD10: J06.9] Diagnosis: Other allergic rhinitis[ICD10: J30.89] Sonia Gonzalez MD, [facility] CPT-4: 60026 09/24/2018 ([id number]) 09968 EST. 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 P ATIENT, LEVEL IV Diagnosis: Essential (primary) hypertension[ICD10: I10] Diagnosis: Cervicalgia[ICD10: M54.2] Radha Gonzalez MD, [facility] CPT-4: 46249 05/31/2018 ([id number]) 03194 EST. 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 12/29/2018 Appointment: Radha Gonzalez WPtel: [address] [place], [place] [phone] (15 min) Moderate 12/29/2018 Patient Education: Patient Medication Summary Completed 12/29/2018 Patient Education: .Cervicalgia Neck Pain Completed 12/29/2018 Patient Education: Patient Medication Summary Completed 12/21/2018 Care Plan: %Hba1C add to blood from 12/17 LOINC : 96941-7 Pending 12/21/2018 Visit Plan: Right arm pain - dayna deformity noted - will refer to ortho - The pt is to use prn antiinflammatories to manage acute pain. The patient is to call the office if the pain is worsening or does not improve. 12/20/2018 App[facility]ment[facility] [phone] [facility] [place] (15 min) Moderate 12/20/2018 Patient Education: [...] with testosterone. 12/16/2018 [facility]ment: [facility] [phone] [facility] [place] (15 min) Moderate 12/16/2018 Patient Education: [...] as needed. 11/01/2018 Appointment: [facility] [phone] [facility] [place] (15 min) Moderate 11/01/2018 Patient Education: Patient [...] allergy spray. 09/24/2018 App[facility]ment: [facility] [phone] [facility] (15 min) Moderate 09/24/2018 Patient Education: [...] Multiple symptoms - referral to [facility] - appt in September 30, 2018. 08/16/2018 Appointment: Rad[facility] [phone] [facility] (15 min) Moderate 08/16/2018 Patient Education: Patient [...] Multiple symptoms - referral to [facility] - rashes, hypogonadism, optic neuritis - all points to possible autoimmune syndrome. Spinal stenosis - of thoracic region - pt to talk to Dr. Dunaway about referral to a different specialist for his mid- back. Hypogonadism - continue with testosterone. Flu shot given today in clinic. 08/02/2018 Appointment: Rad[facility] [phone] [facility] (15 min) Moderate 08/02/2018 Patient Education: Patient Medication Summary Completed 08/02/2018 Care Plan: Referral Order SNOMED-CT : 174415830 Pending 08/02/2018 Appointment: Injection 07/15/2018 Patient Education: [...] home. Cervical spine stenosis - referral to [facility] physical therapy. I have also recommended a Referral to Dr. Dunaway. I have called and talked to Dr. Dunaway - he looked at the pt's imaging and agrees that getting the pt in to be seen soon would be a preferred option. 05/31/2018 Appointment: Rad[facility] [phone] [facility] (15 min) Moderate 05/31/2018 Patient Education: Patient Medication Summary Completed 05/31/2018 Care Plan: Referral Order SNOMED-CT : 568529744 Pending 05/31/2018 Care Plan: Referral Order SNOMED-CT : 974952262 Pending 05/31/2018 Appointment: Injection 05/21/2018 Patient Education: Patient Medication Summary Completed 05/21/2018 Care Plan: Referral Order SNOMED-CT : 703192199 Pending 05/21/2018 Visit Plan: Cervical and thoracic s tenosis with spinal cord compression -refer for appt with Dr Marr -rx for hydrocodone for pain-start gabapentin at bedtime Soft tissue lesion-left chest-schedule CTfor further evaluation HTN-elevated today-hold adderall-monitor blood pressure 05/20/2018 Appointment: [facility] [phone] [phone] [place] (15 min) Moderate 05/20/2018 Patient [...] this. 05/10/2018 Appointment: [facility] [phone] [facility] [place] (15 min) Moderate 05/10/2018 Patient Education: Patient Medication Summary Completed 05/10/2018 Visit Plan: Sleep apnea - rx for cp ap - actually autopap was recommended and pt given rx today. HTN - referral to dr. kapoor - pt needs stress testing. 01/15/2018 Appointment: Radha Gonzalez [facility]el[facility] [phone] [facility] [place] (15 min) Moderate 01/15/2018 Patient Education: Patient Medication Summary Completed 01/15/2018 Care Plan: Referral Order SNOMED-CT : [id number] Pending 01/15/2018 Visit Plan: Well Adult - [...] month. 12/15/2017 Appointment: Radha Gonzalez WPtel: [phone] [id number] New Patient 12/15/2017 Patient Education: Patient Medication Summary Completed 12/15/2017 Care Plan: CHEST X-RAY 2VW FRONTAL&LATL LOINC : 08438-9 Pending 12/15/2017 Appointment: Radha Gonzalez WPtel: [facility] (15 min) Moderate 12/08/2017 Appointment: (S) New Patient 08/13/2015 Visit Plan: steri strip placed on t humb of right hand - antibiotic shot given to patient and rx for keflex 500mg qid x 10 days given to the patient to fill prior to his trip to [place] 08/03/2015 Patient Education: Patient Medication Summary Completed 08/03/2015 Referral: External, Ordering Provider 08/03 Referral info faxed to [facility]. Patient informed to be expecting a call from them with appt info Appointment Requested Referral: External, Ordering Provider Referral Appointment Requested Referral: External, Ordering Provider I called today; they will call him to schedule. Completed Referral: Armani Dunaway Referral Appointment Requested Referral: Mayte Kapoor Referral Appointment Requested Referral: [facility] WPtel: [phone] Referral Appointment Requested Referral: External, Ordering [...] Multiple symptoms - referral to [facility] - rashes, hypogonadism, optic neuritis - [...] Multiple symptoms - referral to [facility] - appt in September 30, 2018. [...] to fill prior to his trip to [place] will refill meds for 90 days [...] home. Cervical spine stenosis - [facility]. I have also recommended a Referral to Dr. Dunaway. I have called and talked to Dr. Dunaway - he looked at the pt's imaging and agrees that getting the pt in to be seen soon would be a preferred option.
--- OUTSIDE RECORDS SUMMARY | 2020-04-28 00:38 | XMS REPORT | CCD ---
Author Author Nilton Gonzalez Organization [facility] Address [address] [place] [address] Phone Care Team Providers Care [employer] Operator Name Role Phone PP Unavailable CCM Unavailable Summary Purpose Interface Exchange Insurance Providers Payer name Policy type / Coverage type Covered constitution party ID Effective Begin Date Effective End Date [employer] Insurance [id number] 2018 Unknown Family history Brother Diagnosis Age At Onset Alcoholism Unknown Father Diagnosis Age At Onset Hypercholesterolemia Unknown Social History Social History Element Codes Description Effective Dates Marital status Unknown S chanda 12/15/2017 Number of children Unknown 1 12/15/2017 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[employer] 12/15/[address]: 452526602 Never smoker 12/15/[address]: 677384 Currently drinks alcohol <1 per week 12/15/2017 [...] 5 mg-fanny taminophen 325 mg tablet RxNorm: 886107 1-2 Tablet(s) PO Q6 a s needed 03/21/2019 No Stop Date Active Adderall 30 mg tablet RxNorm: 922511 2 Tablet(s) PO daily 03/21/2019 04/19/2019 Active tramadol 50 mg tablet RxNorm: 705026 1-2 Tablet(s) PO Q6 as needed 03/14/2019 No Stop Date Active hydrocodone 5 mg-fanny taminophen 325 mg tablet RxNorm: 855117 1-2 Tablet(s) PO Q6 a s needed 02/23/2019 03/20/2019 Inactive Adderall 30 mg tablet RxNorm: 967472 2 Tablet(s) PO daily 02/23/2019 03/20/2019 Inactive Adderall 30 mg tablet RxNorm: 030221 2 Tablet(s) PO daily 01/24/2019 02/22/2019 Inactive ketoconazole 2 % top ical cream RxNorm: 423467 APPLY ONE GRAM TOPICA LLY TWICE A DAY 01/12/2019 01/26/2019 In active tramadol 50 mg tablet RxNorm: 205418 1-2 Tablet(s) PO Q6 as needed 01/11/2019 03/13/2019 In active atenolol 50 mg tablet RxNorm: 818453 1.5 Tablet(s) PO BID 12/29/2018 12/23/2019 Active hydrocodone 5 mg-fanny taminophen 325 mg tablet RxNorm: 608170 1-2 Tablet(s) PO Q6 a s needed 12/29/2018 02/22/2019 Inactive Adderall 30 mg tablet RxNorm: 772439 2 Tablet(s) PO daily 12/29/2018 01/23/2019 Inactive hydrocodone 5 mg-fanny taminophen 325 mg tablet RxNorm: 874324 1-2 Tablet(s) PO Q6 a s needed 12/29/2018 12/28/2018 Inactive testosterone cypiona te 200 mg/mL intramuscular oil RxNorm: 7233638 1.25 Milliliter(s) IM 12/29/2018 12/29/2018 Inactive hydrocodone 5 mg-fanny taminophen 325 mg tablet RxNorm: 095760 1 Tablet(s) PO TID ID N 12/28/2018 12/28/2018 In active testosterone cypiona te 200 mg/mL intramuscular oil RxNorm: 9797917 1.25 Milliliter(s) IM 2 x month 12/22/2018 04/12/2019 Active gabapentin 300 mg ca psule RxNorm: 472330 1 Capsule(s) PO QID 12/16/2018 12/10/2019 Active testosterone cypiona te 200 mg/mL intramuscular oil RxNorm: 3300512 Milliliter(s) IM 12/16/2018 12/16/2018 In active Voltaren 1 % topical gel RxNorm: 593284 2 Gram(s) APPLY TOPIC ALLY four TIMES A DAY 12/16/2018 01/20/2019 In active trazodone 100 mg tablet RxNorm: 530583 TAKE ONE TABLET BY MOUTH EVERY NIGHT AT BEDTIME 12/07/2018 06/04/2019 Active hydrocodone 5 mg-fanny taminophen 325 mg tablet RxNorm: 711120 1 Tablet(s) PO TID ID N 11/29/2018 12/27/2018 In active Adderall 30 mg tablet RxNorm: 968056 2 Tablet(s) PO daily 11/29/2018 12/28/2018 Inactive clindamycin 1 %-arthur oyl peroxide 5 % topical gel RxNorm: 008276 TOP APPLY TO AFFECTED AREA(S) ON SERNA TWO TIMES A DAY 11/17/2018 No Stop Date Active testosterone cypiona te 200 mg/mL intramuscular oil RxNorm: 4531311 1 Milliliter(s) IM 2 x month 11/17/2018 12/21/2018 Inactive Zorvolex 35 mg capsule RxNorm: 7240510 1 Capsule(s) PO TID as needed for pain 11/15/2018 05/13/2019 Ac tive ketoconazole 2 % top ical cream RxNorm: 155157 APPLY ONE GRAM TOPICA LLY TWICE A DAY 11/15/2018 11/29/2018 In active testosterone cypiona te 200 mg/mL intramuscular oil RxNorm: 4622534 1 Milliliter(s) IM 11/15/2018 11/14/2018 Inactive hydrocodone 5 mg-fanny taminophen 325 mg tablet RxNorm: 087828 1 Tablet(s) PO TID ID N 11/02/2018 11/28/2018 In active Singulair 10 mg tablet RxNorm: 394735 1 Tablet(s) PO daily 11/01/2018 07/28/2019 Active testosterone cypiona te 200 mg/mL intramuscular oil RxNorm: 3870722 1 Milliliter(s) IM 2 x month 11/01/2018 11/16/2018 Inactive Adderall 30 mg tablet RxNorm: 473401 2 Tablet(s) PO daily 10/29/2018 11/27/2018 Inactive gabapentin 300 mg ca psule RxNorm: 767327 1 Capsule(s) PO BID m ay take TID 10/19/2018 12/15/2018 In active gabapentin 300 mg ca psule RxNorm: 641918 1 Capsule(s) PO BID m ay take TID 10/19/2018 10/18/2018 In active alprazolam 1 mg tablet RxNorm: 314791 1 Tablet(s) PO TID as needed 10/15/2018 12/13/2018 Inactive testosterone cypiona te 200 mg/mL intramuscular oil RxNorm: 408650 Milliliter(s) IM 09/28/2018 09/28/2018 In active pravastatin 40 mg ta blet RxNorm: 784191 TAKE ONE TABLET BY [facility] EVERY NIGHT AT BEDTIME 09/27/2018 09/21/2019 Active Tamiflu 75 mg capsule RxNorm: 796458 1 Capsule(s) PO BID 09/24/2018 09/28/2018 Inactive Adderall 30 mg tablet RxNorm: 851742 2 Tablet(s) PO daily 09/20/2018 10/19/2018 Inactive hydrocodone 5 mg-fanny taminophen 325 mg tablet RxNorm: 728970 1 Tablet(s) PO TID ID N 09/20/2018 11/01/2018 In active testosterone cypiona te 200 mg/mL intramuscular oil RxNorm: 930474 Milliliter(s) IM 09/16/2018 09/16/2018 In active testosterone cypiona te 200 mg/mL intramuscular oil RxNorm: 040462 1 Milliliter(s) IM 09/02/2018 09/02/2018 Inactive testosterone cypiona te 200 mg/mL intramuscular oil RxNorm: 563800 Milliliter(s) IM 08/19/2018 08/19/2018 In active Adderall 30 mg tablet RxNorm: 775024 2 Tablet(s) PO daily 08/18/2018 09/16/2018 Inactive tramadol 50 mg tablet RxNorm: 857491 1-2 Tablet(s) PO Q6 as needed 08/18/2018 01/12/2019 In active Dexilant 60 mg capsu le, delayed release RxNorm: 708347 1 Capsule(s) PO BID 08/17/2018 08/11/2019 Ac tive ketoconazole 2 % top ical cream RxNorm: 430410 1 Gram(s) TOP BID 08/17/2018 08/26/2018 Inactive Zorvolex 35 mg capsule RxNorm: 8600504 1 Capsule(s) PO TID as needed for pain 08/17/2018 08/16/2018 In active atenolol 50 mg tablet RxNorm: 485368 1 Tablet(s) PO BID 08/17/2018 12/28/2018 Inactive Zorvolex 35 mg capsule RxNorm: 4906485 1 Capsule(s) PO TID as needed for pain 08/17/2018 11/14/2018 In active ketoconazole 2 % top ical cream RxNorm: 699540 1 Gram(s) TOP BID 08/02/2018 08/11/2018 Inactive hydrocortisone 2.5 % topical cream RxNorm: 760539 1 Application TOP BID 07/21/2018 No Stop Date Active Adderall 30 mg tablet RxNorm: 924154 2 Tablet(s) PO daily 07/20/2018 08/17/2018 Inactive testosterone cypiona te 200 mg/mL intramuscular oil RxNorm: 400630 Milliliter(s) IM 07/15/2018 07/15/2018 In active alprazolam 1 mg tablet RxNorm: 312677 1 Tablet(s) PO TID as needed 07/12/2018 09/07/2018 Inactive hydrocodone 5 mg-fanny taminophen 325 mg tablet RxNorm: 122280 1 Tablet(s) PO TID ID N 06/30/2018 09/19/2018 In active pravastatin 40 mg ta blet RxNorm: 687866 1 Tablet(s) PO QHS 06/18/2018 09/15/2018 Inactive Adderall 30 mg tablet RxNorm: 436298 2 Tablet(s) PO daily 06/18/2018 07/17/2018 Inactive testosterone cypiona te 200 mg/mL intramuscular oil RxNorm: 385257 Milliliter(s) IM 06/17/2018 06/17/2018 In active Voltaren 1 % topical gel RxNorm: 624075 APPLY TOPICALLY TWO T IMES A DAY 06/16/2018 07/21/2018 In active Vitamin D2 50,000 un it capsule RxNorm: 5070378 1 Capsule(s) PO QW 05/21/2018 No Stop Date Active Adderall 30 mg tablet RxNorm: 500771 2 Tablet(s) PO daily 05/21/2018 06/17/2018 Inactive testosterone cypiona te 200 mg/mL intramuscular oil RxNorm: 943169 Milliliter(s) IM 05/21/2018 05/21/2018 In active testosterone cypiona te 200 mg/mL intramuscular oil RxNorm: 3849578 1 Milliliter(s) IM monthly 05/20/2018 09/16/2018 Inactive testosterone cypiona te 200 mg/mL intramuscular oil RxNorm: 244167 1 Milliliter(s) IM monthly 05/20/2018 05/19/2018 Inactive hydrocodone 5 mg-fanny taminophen 325 mg tablet RxNorm: 124605 1 Tablet(s) PO TID ID N 05/20/2018 06/29/2018 In active Vitamin D2 50,000 un it capsule RxNorm: 5137076 1 Capsule(s) PO QW 05/18/2018 05/20/2018 Inactive triamcinolone aceton destin 0.025 % topical cream RxNorm: 2340731 1 Application TOP BI D 05/13/2018 No Stop Date Active Dexilant 60 mg capsu le, delayed release RxNorm: 680682 1 Capsule(s) PO BID 05/13/2018 08/16/2018 In active Zorvolex 35 mg capsule RxNorm: 1198623 1 Capsule(s) PO TID as needed for pain 05/12/2018 08/09/2018 In active Voltaren 1 % topical gel RxNorm: 255972 1 Application TOP BID 05/12/2018 06/15/2018 Inactive acyclovir 400 mg tablet RxNorm: 498073 1 Tablet(s) PO TID as needed take at ons et of symptoms of cold sores x 5 days 05/10/2018 No Stop Date Active paroxetine 20 mg tablet RxNorm: 9244841 2 Tablet(s) PO QHS 05/10/2018 10/31/2019 Active ProAir HFA 90 mcg/ac tuation aerosol inhaler RxNorm: 474853 1 Puff(s) INH QID as needed 05/10/2018 No Stop Date Active baclofen 20 mg tablet RxNorm: 801717 1 Tablet(s) PO TID as needed muscle spas ms 05/10/2018 06/08/2018 In active Singulair 10 mg tablet RxNorm: 771910 1 Tablet(s) PO daily 05/10/2018 08/07/2018 Inactive atenolol 50 mg tablet RxNorm: 328995 1 Tablet(s) PO BID 05/10/2018 08/07/2018 Inactive triamcinolone aceton destin 0.025 % topical cream RxNorm: 8598107 1 Application TOP BI D 05/10/2018 05/12/2018 In active tramadol 50 mg tablet RxNorm: 214920 1 Tablet(s) PO TID as needed 05/10/2018 05/19/2018 Inactive Dexilant 60 mg capsu le, delayed release RxNorm: 740806 1 Capsule(s) PO daily 05/10/2018 05/12/2018 In active alprazolam 1 mg tablet RxNorm: 322640 1 Tablet(s) PO TID as needed 05/10/2018 08/06/2018 Inactive trazodone 100 mg tablet RxNorm: 657426 1 Tablet(s) PO QHS 05/10/2018 11/05/2018 Inactive cyclobenzaprine 10 m g tablet RxNorm: 907148 1 Tablet(s) PO TID as needed muscle spasms 05/07/2018 07/12/2018 Inactive trazodone 100 mg tablet RxNorm: 247263 1 Tablet(s) PO QHS 05/07/2018 05/09/2018 Inactive Adderall 30 mg tablet RxNorm: 891857 2 Tablet(s) PO daily 04/19/2018 05/18/2018 Inactive alprazolam 1 mg tablet RxNorm: 299692 1 Tablet(s) PO BID 04/19/2018 05/09/2018 Inactive Adderall 30 mg tablet RxNorm: 888913 2 Tablet(s) PO daily 03/26/2018 04/18/2018 Inactive paroxetine 20 mg tablet RxNorm: 9421420 2 Tablet(s) PO QHS 03/15/2018 05/09/2018 Inactive Adderall 30 mg tablet RxNorm: 531399 2 Tablet(s) PO daily 02/25/2018 03/25/2018 Inactive cyclobenzaprine 10 m g tablet RxNorm: 924273 1 Tablet(s) PO TID as needed muscle spasms 02/22/2018 05/06/2018 Inactive tramadol 50 mg tablet RxNorm: 790994 1 Tablet(s) PO TID as needed 02/22/2018 03/07/2018 Inactive tramadol 50 mg tablet RxNorm: 415883 1 Tablet(s) PO TID as needed 02/22/2018 02/21/2018 Inactive trazodone 100 mg tablet RxNorm: 126915 1 Tablet(s) PO QHS 02/03/2018 05/03/2018 Inactive trazodone 100 mg tablet RxNorm: 571577 1 Tablet(s) PO QHS 02/03/2018 02/02/2018 Inactive Adderall 30 mg tablet RxNorm: 378044 2 Tablet(s) PO daily 01/27/2018 02/18/2018 Inactive acyclovir 400 mg tablet RxNorm: 603601 1 Tablet(s) PO TID as needed take at ons et of symptoms of cold sores x 5 days 01/15/2018 05/09/2018 Inactive Bactrim DS 800 mg-16 0 mg tablet RxNorm: 362586 1 Tablet(s) PO BID 01/11/2018 01/17/2018 Inactive Bactrim DS 800 mg-16 0 mg tablet RxNorm: 168140 1 Tablet(s) PO BID 01/11/2018 01/10/2018 Inactive Dexilant 60 mg capsu le, delayed release RxNorm: 328908 1 Capsule(s) PO daily 12/23/2017 05/09/2018 In active Dexilant 60 mg capsu le, delayed release RxNorm: 439140 1 Capsule(s) PO daily 12/23/2017 12/22/2017 In active atenolol 50 mg tablet RxNorm: 311410 1 Tablet(s) PO BID 12/15/2017 05/09/2018 Inactive alprazolam 1 mg tablet RxNorm: 317476 1-1.5 Tablet(s) PO daily 12/15/2017 04/18/2018 Inactive ceftriaxone 500 mg s olution for injection RxNorm: 1129972 Inj 08/03/2015 08/03/2015 Inactive paroxetine 20 mg tablet RxNorm: 0967930 2 Tablet(s) PO QHS 08/01/2015 10/29/2015 Inactive pravastatin 40 mg ta blet RxNorm: 688727 1/2 Tablet(s) PO QHS 08/01/2015 12/14/2017 Inactive Trazadone 100mg 100 mg RxNorm: 1 PO daily 08/01/2015 11/27/2015 Inactive Trazadone 100mg 100 mg RxNorm: 1 PO daily 08/01/2015 05/04/2018 Inactive atenolol 50 mg tablet RxNorm: 044807 1 Tablet(s) PO daily 08/01/2015 10/29/2015 Inactive ibuprofen 800 mg tablet RxNorm: 090072 1 Tablet(s) PO BID -TID No Start Date Active Fish Oil 360 mg-1,20 0 mg capsule RxNorm: 050674 1 Capsule(s) PO BID No Start Date Active Zyrtec 10 mg tablet RxNorm: 8012291 1 Tablet(s) PO daily No Start Date Active pravastatin 40 mg ta blet RxNorm: 492439 1/2 Tablet(s) PO QHS No Start Date 07/31/2015 Inactive Benadryl Allergy 25 mg tablet RxNorm: 9611162 1 Tablet(s) PO daily No Start Date 07/19/2018 Inactive Adderall 30 mg tablet RxNorm: 395519 2 Tablet(s) PO daily No Start Date 01/26/2018 Inactive Aspirin Low Dose 81 mg tablet,delayed release RxNorm: 752609 1 Tablet(s) PO BID No Start Date 07/19/2018 Inactive Singulair 10 mg tablet RxNorm: 752755 1 Tablet(s) PO daily No Start Date 05/09/2018 Inactive cyclobenzaprine 10 m g tablet RxNorm: 254609 1 Tablet(s) PO TID as needed muscle spasms No Start Date 02/21/2018 Inactive Trazadone 100mg 100 mg RxNorm: 1 PO daily No Start Date 07/31/2015 Inactive clindamycin 1 %-arthur oyl peroxide 5 % topical gel RxNorm: 830485 TOP APPLY TO AFFECTED AREA(S) ON SERNA TWO TIMES A DAY No Start Date 11/16/2018 Inactive hydrocortisone 2.5 % topical cream RxNorm: 560837 1 Application TOP BID No Start Date 07/20/2018 Inactive alprazolam 1 mg tablet RxNorm: 235019 2 Tablet(s) PO daily No Start Date 12/14/2017 Inactive tramadol 50 mg tablet RxNorm: 714099 1-2 Tablet(s) PO Q6 as needed No Start Date 08/17/2018 Inactive Vitamin D2 50,000 un it capsule RxNorm: 6922975 1 Capsule(s) PO QW No Start Date 05/17/2018 Inactive pantoprazole 40 mg t ablet,delayed release RxNorm: 658663 1 Tablet(s) PO BID No Start Date 12/22/2017 Inactive atenolol 50 mg tablet RxNorm: 483051 1 Tablet(s) PO daily No Start Date 07/31/2015 Inactive paroxetine 20 mg tablet RxNorm: 642946 2 Tablet(s) PO QHS No Start Date 07/31/2015 Inactive Medication Administered Medication Codes Instruc tions Start Date Status testosterone cypionate 200 mg/mL intramuscular oil RxNorm: 5045848 1.25Milliliter 12/29/2018 No longer Active testosterone cypionate 200 mg/mL intramuscular oil RxNorm: 0150262 Milliliter 12/16/2018 No longer Active testosterone cypionate 200 mg/mL intramuscular oil RxNorm: 3211961 1Milliliter 11/15/2018 No longer Active testosterone cypionate 200 mg/mL intramuscular oil RxNorm: 500304 Milliliter 09/28/2018 No longer Active testosterone cypionate 200 mg/mL intramuscular oil RxNorm: 084847 Milliliter 09/16/2018 No longer Active testosterone cypionate 200 mg/mL intramuscular oil RxNorm: 399643 1Milliliter 09/02/2018 No longer Active testosterone cypionate 200 mg/mL intramuscular oil RxNorm: 187010 Milliliter 08/19/2018 No longer Active testosterone cypionate 200 mg/mL intramuscular oil RxNorm: 291404 Milliliter 07/15/2018 No longer Active testosterone cypionate 200 mg/mL intramuscular oil RxNorm: 359515 Milliliter 06/17/2018 No longer Active testosterone cypionate 200 mg/mL intramuscular oil RxNorm: 019637 Milliliter 05/21/2018 No longer Active ceftriaxone 500 mg solution for injection RxNorm: 6206319 08/03/2015 No longer A ctive Immunizations Vaccine [...] Code Result Date Comp. Metabolic Panel (14) 45069 GLUCOSE 117 mg/dL 12/17/2018 Comp. Metabolic Panel (14) 64400 BUN 17 mg/dL 12/17/2018 Comp. Metabolic Panel (14) 69783 CREATININE 0.99 mg/dL 12/17/2018 Comp. Metabolic Panel (14) 42851 SODIUM 137 mmol/L 12/17/2018 Comp. Metabolic Panel (14) 52632 POTASSIUM 4.6 mmol/L 12/17/2018 Comp. Metabolic Panel (14) 22902 CHLORIDE 102 mmol/L 12/17/2018 Comp. Metabolic Panel (14) 25617 CARBON DIOXIDE 21 mmol/L 12/17/2018 Comp. Metabolic Panel (14) 19865 CALCIUM 9.4 mg/dL 12/17/2018 Comp. Metabolic Panel (14) 13148 TOTAL PROTEIN 7.5 g/dL 12/17/2018 Comp. Metabolic Panel (14) 00541 ALBUMIN 5.1 g/dL 12/17/2018 Comp. Metabolic Panel (14) 48917 ALKALINE PHOSPHATASE 79 U/L 12/17/2018 Comp. Metabolic Panel (14) 94027 TOTAL BILIRUBIN 0.5 mg/dL 12/17/2018 Comp. Metabolic Panel (14) 17617 SGOT (AST) 34 U/L 12/17/2018 Comp. Metabolic Panel (14) 00406 SGPT (ALT) 40 U/L 12/17/2018 Comp. Metabolic Panel (14) 84801 eGFR (mL/min/1.73m2) 115 12/17/2018 Comp. Metabolic Panel (14) 74369 INTERPRETATION 12/17/2018 Testosterone Serum 871793 TESTOSTERONE 96.8 ng/dL 12/17/2018 Cbc With Differential/Platelet 54192 WBC 5.61 thou/uL 9 Cbc With Differential/Platelet 53260 RBC 5.53 mil/uL 12/17/2018 Cbc With Differential/Platelet 46472 HEMOGLOBIN 15.4 g/dL 12/17/2018 Cbc With Differential/Platelet 71318 HEMATOCRIT 48.1 % 12/17/2018 Cbc With Differential/Platelet 12645 MCV 87.0 fL 12/17/2018 Cbc With Differential/Platelet 49677 MCH 27.8 pg 12/17/2018 Cbc With Differential/Platelet 63884 MCHC 32.0 g/dL 12/17/2018 Cbc With Differential/Platelet 03290 RDW-CV 13.9 % 12/17/2018 Cbc With Differential/Platelet 66474 PLATELET COUNT 294 thou/uL 12/17/2018 Cbc With Differential/Platelet 58679 NEUTROPHIL % 71.2 % 12/17/2018 Cbc With Differential/Platelet 69969 LYMPHOCYTE % 22.2 % 12/17/2018 Cbc With Differential/Platelet 62182 MONOCYTE % 5.4 % 12/17/2018 Cbc With Differential/Platelet 47433 EOS % 0.9 % 12/17/2018 Cbc With Differential/Platelet 10072 BASO % 0.4 % 12/17/2018 Cbc With Differential/Platelet 54110 NEUTROPHIL ABS # 3.99 thou/uL 12/17/2018 Cbc With Differential/Platelet 06923 LYMPH ABS # 1.25 thou/uL 12/17/2018 Cbc With Differential/Platelet 64092 MONOCYTE ABS # 0.30 thou/uL 12/17/2018 Cbc With Differential/Platelet 32602 EOS ABS # 0.05 thou/uL 9 Cbc With Differential/Platelet 96108 BASO ABS # 0.02 thou/uL 12/17/2018 Lipid Panel 21146 CHOLES TEROL 227 mg/dL 12/17/2018 Lipid Panel 30846 TRIGLY CERIDES 229 mg/dL 12/17/2018 Lipid Panel 49913 HDL 41 mg/dL 12/17/2018 Lipid Panel 71778 CHOLES TEROL/HDL 5.54 12/17/2018 Lipid Panel 08251 LDL (C ALCULATED) 140 mg/dL 12/17/2018 Lipid Panel 13688 LDL/HDL 3.41 12/17/2018 Lipid Panel 50496 INTERP RETATION 12/17/2018 Tsh 363520 TSH 1.190 uIU/mL 12/17/2018 Testosterone Serum 936870 TESTOSTERONE 44.1 ng/dL 08/18/2018 Hemoglobin 613773 WBC 7.62 thou/uL 08/17/2018 Hemoglobin 352905 RBC 5.23 mil/uL 08/17/2018 Hemoglobin 20020721 HEMOGL OBIN 15.0 g/dL 08/17/2018 Hemoglobin 888814 HEMATO CRIT 45.0 % 08/17/2018 Hemoglobin 791871 MCV 86.0 fL 08/17/2018 Hemoglobin 804921 MCH 28.7 pg 08/17/2018 Hemoglobin 596099 MCHC 33.3 g/dL 08/17/2018 Hemoglobin 558214 RDW-CV 12.9 % 08/17/2018 Hemoglobin 351864 PLATEL ET COUNT 313 thou/uL 08/17/2018 Hematocrit 255150 WBC 7.62 thou/uL 08/17/2018 Hematocrit 278514 RBC 5.23 mil/uL 08/17/2018 Hematocrit 449664 HEMOGL OBIN 15.0 g/dL 08/17/2018 Hematocrit 529890 HEMATO CRIT 45.0 % 08/17/2018 Hematocrit 080861 MCV 86.0 fL 08/17/2018 Hematocrit 772163 MCH 28.7 pg 08/17/2018 Hematocrit 771415 MCHC 33.3 g/dL 08/17/2018 Hematocrit 998774 RDW-CV 12.9 % 08/17/2018 Hematocrit 631612 PLATEL ET COUNT 313 thou/uL 08/17/2018 Culture Mrsa 691066 MRSA CULTURE SEE NOTES 06/21/2018 Comp. Metabolic Panel (14) 59350 GLUCOSE 101 mg/dL 06/18/2018 Comp. Metabolic Panel (14) 63472 BUN 18 mg/dL 06/18/2018 Comp. Metabolic Panel (14) 29908 CREATININE 0.99 mg/dL 06/18/2018 Comp. Metabolic Panel (14) 46462 SODIUM 141 mmol/L 06/18/2018 Comp. Metabolic Panel (14) 76381 POTASSIUM 4.3 mmol/L 06/18/2018 Comp. Metabolic Panel (14) 68544 CHLORIDE 103 mmol/L 06/18/2018 Comp. Metabolic Panel (14) 75061 CARBON DIOXIDE 23 mmol/L 06/18/2018 Comp. Metabolic Panel (14) 57243 CALCIUM 9.8 mg/dL 06/18/2018 Comp. Metabolic Panel (14) 57171 TOTAL PROTEIN 7.1 g/dL 06/18/2018 Comp. Metabolic Panel (14) 49415 ALBUMIN 5.2 g/dL 06/18/2018 Comp. Metabolic Panel (14) 23140 ALKALINE PHOSPHATASE 65 U/L 06/18/2018 Comp. Metabolic Panel (14) 17480 TOTAL BILIRUBIN 0.6 mg/dL 06/18/2018 Comp. Metabolic Panel (14) 78220 SGOT (AST) 21 U/L 06/18/2018 Comp. Metabolic Panel (14) 81878 SGPT (ALT) 24 U/L 06/18/2018 Comp. Metabolic Panel (14) 06524 eGFR (mL/min/1.73m2) 115 06/18/2018 Comp. Metabolic Panel (14) 43961 INTERPRETATION 06/18/2018 Cbc With Differential/Platelet 10978 WBC 4.55 thou/uL 8 Cbc With Differential/Platelet 45085 RBC 5.13 mil/uL 06/18/2018 Cbc With Differential/Platelet 05350 HEMOGLOBIN 14.4 g/dL 06/18/2018 Cbc With Differential/Platelet 37775 HEMATOCRIT 44.1 % 06/18/2018 Cbc With Differential/Platelet 05755 MCV 85.9 fL 06/18/2018 Cbc With Differential/Platelet 13112 MCH 28.1 pg 06/18/2018 Cbc With Differential/Platelet 40679 MCHC 32.7 g/dL 06/18/2018 Cbc With Differential/Platelet 97763 RDW-CV 13.4 % 06/18/2018 Cbc With Differential/Platelet 87709 PLATELET COUNT 287 thou/uL 06/18/2018 Cbc With Differential/Platelet 42268 NEUTROPHIL % 53.9 % 06/18/2018 Cbc With Differential/Platelet 78176 LYMPHOCYTE % 36.1 % 06/18/2018 Cbc With Differential/Platelet 57978 MONOCYTE % 7.4 % 06/18/2018 Cbc With Differential/Platelet 58335 EOS % 1.9 % 06/18/2018 Cbc With Differential/Platelet 83858 BASO % 0.8 % 06/18/2018 Cbc With Differential/Platelet 01635 NEUTROPHIL ABS # 2.45 thou/uL 06/18/2018 Cbc With Differential/Platelet 83665 LYMPH ABS # 1.64 thou/uL 06/18/2018 Cbc With Differential/Platelet 03393 MONOCYTE ABS # 0.34 thou/uL 06/18/2018 Cbc With Differential/Platelet 89064 EOS ABS # 0.09 thou/uL 8 Cbc With Differential/Platelet 01753 BASO ABS # 0.04 thou/uL 06/18/2018 Review [...] Procedure Codes Date THER/PROPH/DIAG INJ SC/IM CPT-4: 19705 12/29/2018 THER/PROPH/DIAG INJ SC/IM CPT-4: 59300 12/16/2018 THER/PROPH/DIAG INJ SC/IM CPT-4: 71621 11/15/2018 THER/PROPH/DIAG INJ SC/IM CPT-4: 42148 09/28/2018 THER/PROPH/DIAG INJ SC/IM CPT-4: 56437 09/16/2018 THER/PROPH/DIAG INJ SC/IM CPT-4: 32686 09/02/2018 THER/PROPH/DIAG INJ SC/IM CPT-4: 20659 08/19/2018 IMMUNIZATION ADMIN CPT- 4: 44844 08/02/2018 FLU VAC NO PRSV 4 VA L 3 YRS+ CPT-4: 65323 08/02/2018 THER/PROPH/DIAG INJ SC/IM CPT-4: 81809 07/15/2018 THER/PROPH/DIAG INJ SC/IM CPT-4: 54469 06/17/2018 THER/PROPH/DIAG INJ SC/IM CPT-4: 59740 05/21/2018 THER/PROPH/DIAG INJ SC/IM CPT-4: 62509 08/03/2015 ROCEPHIN, PER 250 MG CPT-4: J0696 08/03/2015 Vital Signs Date Vital 12/29/2018 Blood Pressure 1: 144/90 Code: 8480-6 BMI: 34.8 Code: 89748-0 Heart Rate 1: 91 bpm Height: 5'7" SpO2: 98% Weight: 222 lbs 12/20/2018 Blood Pressure 1: 124/76 Code: 8480-6 BMI: 35.4 Code: 43358-8 Heart Rate 1: 79 bpm Height: 5'7" SpO2: 99% Weight: 226 lbs 12/16/2018 Blood Pressure 1: 160/90 Code: 8480-6 BMI: 35.4 Code: 34234-1 Heart Rate 1: 90 bpm Height: 5'7" SpO2: 95% Weight: 226 lbs 11/01/2018 Blood Pressure 1: 146/82 Code: 8480-6 BMI: 36.0 Code: 04354-8 Heart Rate 1: 87 bpm Height: 5'7" SpO2: 98% Weight: 230 lbs 09/24/2018 Blood Pressure 1: 140/82 Code: 8480-6 BMI: 36.0 Code: 70495-7 Heart Rate 1: 86 bpm Height: 5'7" SpO2: 98% Temperature: 37.1 (C ) / 98.7 (F) Weight: 230 lbs 08/16/2018 Blood Pressure 1: 148/82 Code: 8480-6 Blood Pressure 2: 157/92 Code: 8480-6 BMI: 35.9 Code: 74324-6 Heart Rate 1: 72 bpm Height: 5'7" SpO2: 96% Weight: 229 lbs 08/02/2018 Blood Pressure 1: 142/86 Code: 8480-6 BMI: 35.2 Code: 89084-3 Heart Rate 1: 101 bpm Height: 5'7" SpO2: 97% Weight: 225 lbs 05/31/2018 Blood Pressure 1: 134/82 Code: 8480-6 BMI: 35.4 Code: 74255-6 Heart Rate 1: 91 bpm Height: 5'7" SpO2: 96% Weight: 226 lbs 05/20/2018 Blood Pressure 1: 160/100 Code: 8480-6 BMI: 35.2 Code: 83856-6 Heart Rate 1: 89 bpm Height: 5'7" SpO2: 98% Weight: 225 lbs 05/10/2018 Blood Pressure 1: 124/70 Code: 8480-6 BMI: 35.1 Code: 60232-6 Heart Rate 1: 93 bpm Height: 5'7" SpO2: 99% Weight: 224 lbs 01/15/2018 Blood Pressure 1: 142/92 Code: 8480-6 BMI: 36.3 Code: 35965-3 Heart Rate 1: 77 bpm Height: 5'7" SpO2: 98% Weight: 232 lbs 12/15/2017 Blood Pressure 1: 156/98 Code: 8480-6 BMI: 36.2 Code: 94862-0 Heart Rate 1: 87 bpm Height: 5'7" [...] eye 01/15/2018 None vision change Quality [place] 01/15/2018 None vision change Quality lo ss [...] vision 12/15/2017 None vision change Quality [place] 12/15/2017 None vision change Onset and Resolution sudden in onset 12/15/2017 None vision change Onset of Symptom 3.5 weeks ago 12/15/2017 None vision change Limitation on Activities severely limits vision 12/15/2017 None vision change Triggers n o known associated factors 12/15/2017 None Advance Directives No Advance Directive data Encounters Encounter Performer Loca tion Codes Date [id number]) [id number] EST. 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 PATIENT, LEVEL III Diagnosis: Pain in right arm[ICD10: M79.601] Sonia Gonzalez MD, [facility] CPT-4: 78852 12/20/2018 [id number]) 79814 EST. 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 PATIENT, LEVEL III Diagnosis: Acute upper respiratory infection, unspecified[ICD10: J06.9] Diagnosis: Other allergic rhinitis[ICD10: J30.89] Sonia Gonzalez MD, [facility] CPT-4: 46900 09/24/2018 ([id number]) 59934 EST. 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 P ATIENT, LEVEL IV Diagnosis: Essential (primary) hypertension[ICD10: I10] Diagnosis: Cervicalgia[ICD10: M54.2] Radha Gonzalez MD, [facility] CPT-4: 55475 05/31/2018 ([id number]) 43058 EST. 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 12/29/2018 Appointment: Radha Gonzalez WPtel: [address] [place], [place] [phone] (15 min) Moderate 12/29/2018 Patient Education: Patient Medication Summary Completed 12/29/2018 Patient Education: .Cervicalgia Neck Pain Completed 12/29/2018 Patient Education: Patient Medication Summary Completed 12/21/2018 Care Plan: %Hba1C add to blood from 12/17 LOINC : 53413-0 Pending 12/21/2018 Visit Plan: Right arm pain - dayna deformity noted - will refer to ortho - The pt is to use prn antiinflammatories to manage acute pain. The patient is to call the office if the pain is worsening or does not improve. 12/20/2018 App[facility]ment: [facility] [phone] [facility] [place] (15 min) Moderate 12/20/2018 [...] testosterone. 12/16/2018 Appointment: [facility] [phone] [facility] [place] (15 min) Moderate 12/16/2018 Patient Education: [...] as needed. 11/01/2018 Appointment: Radha Gonzalez [facility]el: [phone] [facility] [place] (15 min) Moderate 11/01/2018 Patient Education: [...] spray. 09/24/2018 Appointment: [facility] [phone] [facility] (15 min) Moderate 09/24/2018 Patient [...] at home. Multiple symptoms - referral to [facility] - appt in September 30, 2018. 08/16/2018 Appointment: Radha Gonzalez [facility]Ptel[facility] [phone] [facility] (15 min) Moderate 08/16/2018 Patient Education: Patient [...] at home. Multiple symptoms - referral to [facility] - rashes, hypogonadism, optic neuritis - all points to possible autoimmune syndrome. Spinal stenosis - of thoracic region - pt to talk to Dr. Dunaway about referral to a different specialist for his mid- back. Hypogonadism - continue with testosterone. Flu shot given today in clinic. 08/02/2018 Appointment: Radha Gonzalez [facility]Ptel[facility] [phone] [facility] (15 min) Moderate 08/02/2018 Patient Education: Patient Medication Summary Completed 08/02/2018 Care Plan: Referral Order SNOMED-CT : 834740925 Pending 08/02/2018 Appointment: Injection 07/15/2018 Patient Education: [...] home. Cervical spine stenosis - referral to [facility] therapy. I have also recommended a Referral to Dr. Dunaway. I have called and talked to Dr. Dunaway - he looked at the pt's imaging and agrees that getting the pt in to be seen soon would be a preferred option. 05/31/2018 Appointment: Radha Gonzalez [facility]Ptel[facility] [phone] [facility] (15 min) Moderate 05/31/2018 Patient Education: Patient Medication Summary Completed 05/31/2018 Care Plan: Referral Order SNOMED-CT : [id number] Pending 05/31/2018 Care Plan: Referral Order SNOMED-CT : 860877671 Pending 05/31/2018 Appointment: Injection 05/21/2018 Patient Education: Patient Medication Summary Completed 05/21/2018 Care Plan: Referral Order SNOMED-CT : 352188210 Pending 05/21/2018 Visit Plan: Cervical and thoracic s tenosis with spinal cord compression -refer for appt with Dr Marr -rx for hydrocodone for pain-start gabapentin at bedtime Soft tissue lesion-left chest-schedule CTfor further evaluation HTN-elevated today-hold adderall-monitor blood pressure 05/20/2018 Appointment: [facility] [phone] [facility] [place] (15 min) Moderate 05/20/2018 [...] this. 05/10/2018 Appointment: [facility] [phone] [facility] [place] (15 min) Moderate 05/10/2018 Patient Education: Patient Medication Summary Completed 05/10/2018 Visit Plan: Sleep apnea - rx for cp ap - actually autopap was recommended and pt given rx today. HTN - referral to dr. kapoor - pt needs stress testing. 01/15/2018 Appointment: Radha Gonzalez WPtel: [phone] [facility] [place] (15 min) Moderate 01/15/2018 Patient Education: Patient Medication Summary Completed 01/15/2018 Care Plan: Referral Order SNOMED-CT : [id number] Pending 01/15/2018 Visit Plan: Well Adult - [...] month. 12/15/2017 Appointment: Radha Gonzalez WPtel: [phone] [facility] New Patient 12/15/2017 Patient Education: Patient Medication Summary Completed 12/15/2017 Care Plan: CHEST X-RAY 2VW FRONTAL&LATL LOINC : 80739-8 Pending 12/15/2017 Appointment: Radha Gonzalez WPtel: [facility] (15 min) Moderate 12/08/2017 Appointment: (S) [...] Ordering Provider 08/03 Referral info faxed to [facility]. Patient informed to be expecting a call from them with appt info Appointment Requested Referral: External, Ordering Provider Referral Appointment Requested Referral: External, Ordering Provider I called today; they will call him to schedule. Completed Referral: Armani Dunaway Referral Appointment Requested Referral: Mayte Kapoor Referral Appointment Requested Referral: [facility] WPtel: [phone] Referral Appointment Requested Referral: External, Ordering [...] at home. Multiple symptoms - referral to [facility] - rashes, hypogonadism, optic neuritis - [...] at home. Multiple symptoms - referral to [facility] - appt in September 30, 2018. [...] fill prior to his trip to [place] will refill meds for 90 days Will [...] home. Cervical spine stenosis - referral to [facility]. I have also recommended a Referral to Dr. Dunaway. I have called and talked to Dr. Dunaway - he looked at the pt's imaging and agrees that getting the pt in to be seen soon would be a preferred option.
--- OUTSIDE RECORDS SUMMARY | 2020-04-28 00:39 | XMS REPORT | CCD ---
Author Author Nilton Gonzalez Organization [facility] Address [address] [place] [address] Phone Care Team Providers Care Reprint Sorter Name Role Phone PP Unavailable CCM Unavailable Summary Purpose Interface Exchange Insurance Providers Payer name Policy type / Coverage type Covered democrat ID Effective Begin Date Effective End Date [employer] [id number] 2018 Unknown Family history Brother Diagnosis Age At Onset Alcoholism Unknown Father Diagnosis Age At Onset Hypercholesterolemia Unknown Social History Social History Element Codes Description Effective Dates Marital status Unknown S chanda 12/15/2017 Number of children Unknown 1 12/15/2017 Employment Unknown 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 [employer] 12/15/[address]: 656968992 Never smoker 12/15/[address]: 192575 Currently drinks alcohol <1 per week 12/15/2017 [...] Date Stop Date Sta tus Fill Instructions tramadol 50 mg tablet RxNorm: 100838 1-2 Tablet(s) PO Q6 as needed 03/14/2019 No Stop Date Active hydrocodone 5 mg-fanny taminophen 325 mg tablet RxNorm: 875637 1-2 Tablet(s) PO Q6 a s needed 02/23/2019 No Stop Date Active Adderall 30 mg tablet RxNorm: 349525 2 Tablet(s) PO daily 02/23/2019 03/24/2019 Active Adderall 30 mg tablet RxNorm: 461123 2 Tablet(s) PO daily 01/24/2019 02/22/2019 Inactive ketoconazole 2 % top ical cream RxNorm: 881349 APPLY ONE GRAM TOPICA LLY TWICE A DAY 01/12/2019 01/26/2019 In active tramadol 50 mg tablet RxNorm: 423768 1-2 Tablet(s) PO Q6 as needed 01/11/2019 03/13/2019 In active atenolol 50 mg tablet RxNorm: 059800 1.5 Tablet(s) PO BID 12/29/2018 12/23/2019 Active hydrocodone 5 mg-fanny taminophen 325 mg tablet RxNorm: 700765 1-2 Tablet(s) PO Q6 a s needed 12/29/2018 02/22/2019 Inactive Adderall 30 mg tablet RxNorm: 457475 2 Tablet(s) PO daily 12/29/2018 01/23/2019 Inactive hydrocodone 5 mg-fanny taminophen 325 mg tablet RxNorm: 683883 1-2 Tablet(s) PO Q6 a s needed 12/29/2018 12/28/2018 Inactive testosterone cypiona te 200 mg/mL intramuscular oil RxNorm: 9260364 1.25 Milliliter(s) IM 12/29/2018 12/29/2018 Inactive hydrocodone 5 mg-fanny taminophen 325 mg tablet RxNorm: 392146 1 Tablet(s) PO TID MO N 12/28/2018 12/28/2018 In active testosterone cypiona te 200 mg/mL intramuscular oil RxNorm: 5325065 1.25 Milliliter(s) IM 2 x month 12/22/2018 04/12/2019 Active gabapentin 300 mg ca psule RxNorm: 484889 1 Capsule(s) PO QID 12/16/2018 12/10/2019 Active testosterone cypiona te 200 mg/mL intramuscular oil RxNorm: 2761650 Milliliter(s) IM 12/16/2018 12/16/2018 In active Voltaren 1 % topical gel RxNorm: 998365 2 Gram(s) APPLY TOPIC ALLY four TIMES A DAY 12/16/2018 01/20/2019 In active trazodone 100 mg tablet RxNorm: 165786 TAKE ONE TABLET BY MOUTH EVERY NIGHT AT BEDTIME 12/07/2018 06/04/2019 Active hydrocodone 5 mg-fanny taminophen 325 mg tablet RxNorm: 504957 1 Tablet(s) PO TID MO N 11/29/2018 12/27/2018 In active Adderall 30 mg tablet RxNorm: 032489 2 Tablet(s) PO daily 11/29/2018 12/28/2018 Inactive clindamycin 1 %-arthur oyl peroxide 5 % topical gel RxNorm: 503280 TOP APPLY TO AFFECTED AREA(S) ON SERNA TWO TIMES A DAY 11/17/2018 No Stop Date Active testosterone cypiona te 200 mg/mL intramuscular oil RxNorm: 6446355 1 Milliliter(s) IM 2 x month 11/17/2018 12/21/2018 Inactive Zorvolex 35 mg capsule RxNorm: 6272390 1 Capsule(s) PO TID as needed for pain 11/15/2018 05/13/2019 Ac tive ketoconazole 2 % top ical cream RxNorm: 020538 APPLY ONE GRAM TOPICA LLY TWICE A DAY 11/15/2018 11/29/2018 In active testosterone cypiona te 200 mg/mL intramuscular oil RxNorm: 1567519 1 Milliliter(s) IM 11/15/2018 11/14/2018 Inactive hydrocodone 5 mg-fanny taminophen 325 mg tablet RxNorm: 618632 1 Tablet(s) PO TID MO N 11/02/2018 11/28/2018 In active Singulair 10 mg tablet RxNorm: 924921 1 Tablet(s) PO daily 11/01/2018 07/28/2019 Active testosterone cypiona te 200 mg/mL intramuscular oil RxNorm: 2774230 1 Milliliter(s) IM 2 x month 11/01/2018 11/16/2018 Inactive Adderall 30 mg tablet RxNorm: 690735 2 Tablet(s) PO daily 10/29/2018 11/27/2018 Inactive gabapentin 300 mg ca psule RxNorm: 847094 1 Capsule(s) PO BID m ay take TID 10/19/2018 12/15/2018 In active gabapentin 300 mg ca psule RxNorm: 238179 1 Capsule(s) PO BID m ay take TID 10/19/2018 10/18/2018 In active alprazolam 1 mg tablet RxNorm: 104636 1 Tablet(s) PO TID as needed 10/15/2018 12/13/2018 Inactive testosterone cypiona te 200 mg/mL intramuscular oil RxNorm: 806576 Milliliter(s) IM 09/28/2018 09/28/2018 In active pravastatin 40 mg ta blet RxNorm: 159423 TAKE ONE TABLET BY [facility] EVERY NIGHT AT BEDTIME 09/27/2018 09/21/2019 Active Tamiflu 75 mg capsule RxNorm: 799212 1 Capsule(s) PO BID 09/24/2018 09/28/2018 Inactive Adderall 30 mg tablet RxNorm: 565879 2 Tablet(s) PO daily 09/20/2018 10/19/2018 Inactive hydrocodone 5 mg-fanny taminophen 325 mg tablet RxNorm: 995925 1 Tablet(s) PO TID MO N 09/20/2018 11/01/2018 In active testosterone cypiona te 200 mg/mL intramuscular oil RxNorm: 648980 Milliliter(s) IM 09/16/2018 09/16/2018 In active testosterone cypiona te 200 mg/mL intramuscular oil RxNorm: 713200 1 Milliliter(s) IM 09/02/2018 09/02/2018 Inactive testosterone cypiona te 200 mg/mL intramuscular oil RxNorm: 334133 Milliliter(s) IM 08/19/2018 08/19/2018 In active Adderall 30 mg tablet RxNorm: 303865 2 Tablet(s) PO daily 08/18/2018 09/16/2018 Inactive tramadol 50 mg tablet RxNorm: 362590 1-2 Tablet(s) PO Q6 as needed 08/18/2018 01/12/2019 In active Dexilant 60 mg capsu le, delayed release RxNorm: 273808 1 Capsule(s) PO BID 08/17/2018 08/11/2019 Ac tive ketoconazole 2 % top ical cream RxNorm: 545326 1 Gram(s) TOP BID 08/17/2018 08/26/2018 Inactive Zorvolex 35 mg capsule RxNorm: 1960288 1 Capsule(s) PO TID as needed for pain 08/17/2018 08/16/2018 In active atenolol 50 mg tablet RxNorm: 706962 1 Tablet(s) PO BID 08/17/2018 12/28/2018 Inactive Zorvolex 35 mg capsule RxNorm: 4879807 1 Capsule(s) PO TID as needed for pain 08/17/2018 11/14/2018 In active ketoconazole 2 % top ical cream RxNorm: 586900 1 Gram(s) TOP BID 08/02/2018 08/11/2018 Inactive hydrocortisone 2.5 % topical cream RxNorm: 720722 1 Application TOP BID 07/21/2018 No Stop Date Active Adderall 30 mg tablet RxNorm: 261666 2 Tablet(s) PO daily 07/20/2018 08/17/2018 Inactive testosterone cypiona te 200 mg/mL intramuscular oil RxNorm: 353119 Milliliter(s) IM 07/15/2018 07/15/2018 In active alprazolam 1 mg tablet RxNorm: 121914 1 Tablet(s) PO TID as needed 07/12/2018 09/07/2018 Inactive hydrocodone 5 mg-fanny taminophen 325 mg tablet RxNorm: 517816 1 Tablet(s) PO TID MO N 06/30/2018 09/19/2018 In active pravastatin 40 mg ta blet RxNorm: 587806 1 Tablet(s) PO QHS 06/18/2018 09/15/2018 Inactive Adderall 30 mg tablet RxNorm: 776232 2 Tablet(s) PO daily 06/18/2018 07/17/2018 Inactive testosterone cypiona te 200 mg/mL intramuscular oil RxNorm: 522113 Milliliter(s) IM 06/17/2018 06/17/2018 In active Voltaren 1 % topical gel RxNorm: 855955 APPLY TOPICALLY TWO T IMES A DAY 06/16/2018 07/21/2018 In active Vitamin D2 50,000 un it capsule RxNorm: 7604804 1 Capsule(s) PO QW 05/21/2018 No Stop Date Active Adderall 30 mg tablet RxNorm: 231880 2 Tablet(s) PO daily 05/21/2018 06/17/2018 Inactive testosterone cypiona te 200 mg/mL intramuscular oil RxNorm: 227560 Milliliter(s) IM 05/21/2018 05/21/2018 In active testosterone cypiona te 200 mg/mL intramuscular oil RxNorm: 4701504 1 Milliliter(s) IM monthly 05/20/2018 09/16/2018 Inactive testosterone cypiona te 200 mg/mL intramuscular oil RxNorm: 092466 1 Milliliter(s) IM monthly 05/20/2018 05/19/2018 Inactive hydrocodone 5 mg-fanny taminophen 325 mg tablet RxNorm: 786768 1 Tablet(s) PO TID MO N 05/20/2018 06/29/2018 In active Vitamin D2 50,000 un it capsule RxNorm: 3519624 1 Capsule(s) PO QW 05/18/2018 05/20/2018 Inactive triamcinolone aceton destin 0.025 % topical cream RxNorm: 0185536 1 Application TOP BI D 05/13/2018 No Stop Date Active Dexilant 60 mg capsu le, delayed release RxNorm: 704967 1 Capsule(s) PO BID 05/13/2018 08/16/2018 In active Zorvolex 35 mg capsule RxNorm: 6285618 1 Capsule(s) PO TID as needed for pain 05/12/2018 08/09/2018 In active Voltaren 1 % topical gel RxNorm: 292309 1 Application TOP BID 05/12/2018 06/15/2018 Inactive acyclovir 400 mg tablet RxNorm: 946323 1 Tablet(s) PO TID as needed take at ons et of symptoms of cold sores x 5 days 05/10/2018 No Stop Date Active paroxetine 20 mg tablet RxNorm: 2161195 2 Tablet(s) PO QHS 05/10/2018 10/31/2019 Active ProAir HFA 90 mcg/ac tuation aerosol inhaler RxNorm: 420264 1 Puff(s) INH QID as needed 05/10/2018 No Stop Date Active baclofen 20 mg tablet RxNorm: 053259 1 Tablet(s) PO TID as needed muscle spas ms 05/10/2018 06/08/2018 In active Singulair 10 mg tablet RxNorm: 611190 1 Tablet(s) PO daily 05/10/2018 08/07/2018 Inactive atenolol 50 mg tablet RxNorm: 111400 1 Tablet(s) PO BID 05/10/2018 08/07/2018 Inactive triamcinolone aceton destin 0.025 % topical cream RxNorm: 1067010 1 Application TOP BI D 05/10/2018 05/12/2018 In active tramadol 50 mg tablet RxNorm: 283689 1 Tablet(s) PO TID as needed 05/10/2018 05/19/2018 Inactive Dexilant 60 mg capsu le, delayed release RxNorm: 764463 1 Capsule(s) PO daily 05/10/2018 05/12/2018 In active alprazolam 1 mg tablet RxNorm: 018187 1 Tablet(s) PO TID as needed 05/10/2018 08/06/2018 Inactive trazodone 100 mg tablet RxNorm: 217164 1 Tablet(s) PO QHS 05/10/2018 11/05/2018 Inactive cyclobenzaprine 10 m g tablet RxNorm: 998102 1 Tablet(s) PO TID as needed muscle spasms 05/07/2018 07/12/2018 Inactive trazodone 100 mg tablet RxNorm: 000005 1 Tablet(s) PO QHS 05/07/2018 05/09/2018 Inactive Adderall 30 mg tablet RxNorm: 630027 2 Tablet(s) PO daily 04/19/2018 05/18/2018 Inactive alprazolam 1 mg tablet RxNorm: 906481 1 Tablet(s) PO BID 04/19/2018 05/09/2018 Inactive Adderall 30 mg tablet RxNorm: 675343 2 Tablet(s) PO daily 03/26/2018 04/18/2018 Inactive paroxetine 20 mg tablet RxNorm: 1353666 2 Tablet(s) PO QHS 03/15/2018 05/09/2018 Inactive Adderall 30 mg tablet RxNorm: 892692 2 Tablet(s) PO daily 02/25/2018 03/25/2018 Inactive cyclobenzaprine 10 m g tablet RxNorm: 831414 1 Tablet(s) PO TID as needed muscle spasms 02/22/2018 05/06/2018 Inactive tramadol 50 mg tablet RxNorm: 195647 1 Tablet(s) PO TID as needed 02/22/2018 03/07/2018 Inactive tramadol 50 mg tablet RxNorm: 454734 1 Tablet(s) PO TID as needed 02/22/2018 02/21/2018 Inactive trazodone 100 mg tablet RxNorm: 947811 1 Tablet(s) PO QHS 02/03/2018 05/03/2018 Inactive trazodone 100 mg tablet RxNorm: 081612 1 Tablet(s) PO QHS 02/03/2018 02/02/2018 Inactive Adderall 30 mg tablet RxNorm: 367491 2 Tablet(s) PO daily 01/27/2018 02/18/2018 Inactive acyclovir 400 mg tablet RxNorm: 217388 1 Tablet(s) PO TID as needed take at ons et of symptoms of cold sores x 5 days 01/15/2018 05/09/2018 Inactive Bactrim DS 800 mg-16 0 mg tablet RxNorm: 623353 1 Tablet(s) PO BID 01/11/2018 01/17/2018 Inactive Bactrim DS 800 mg-16 0 mg tablet RxNorm: 321527 1 Tablet(s) PO BID 01/11/2018 01/10/2018 Inactive Dexilant 60 mg capsu le, delayed release RxNorm: 974395 1 Capsule(s) PO daily 12/23/2017 05/09/2018 In active Dexilant 60 mg capsu le, delayed release RxNorm: 013711 1 Capsule(s) PO daily 12/23/2017 12/22/2017 In active atenolol 50 mg tablet RxNorm: 675062 1 Tablet(s) PO BID 12/15/2017 05/09/2018 Inactive alprazolam 1 mg tablet RxNorm: 021590 1-1.5 Tablet(s) PO daily 12/15/2017 04/18/2018 Inactive ceftriaxone 500 mg s olution for injection RxNorm: 4512932 Inj 08/03/2015 08/03/2015 Inactive paroxetine 20 mg tablet RxNorm: 7896267 2 Tablet(s) PO QHS 08/01/2015 10/29/2015 Inactive pravastatin 40 mg ta blet RxNorm: 790566 1/2 Tablet(s) PO QHS 08/01/2015 12/14/2017 Inactive Trazadone 100mg 100 mg RxNorm: 1 PO daily 08/01/2015 11/27/2015 Inactive Trazadone 100mg 100 mg RxNorm: 1 PO daily 08/01/2015 05/04/2018 Inactive atenolol 50 mg tablet RxNorm: 823056 1 Tablet(s) PO daily 08/01/2015 10/29/2015 Inactive ibuprofen 800 mg tablet RxNorm: 546556 1 Tablet(s) PO BID -TID No Start Date Active Fish Oil 360 mg-1,20 0 mg capsule RxNorm: 245179 1 Capsule(s) PO BID No Start Date Active Zyrtec 10 mg tablet RxNorm: 6804250 1 Tablet(s) PO daily No Start Date Active pravastatin 40 mg ta blet RxNorm: 332982 1/2 Tablet(s) PO QHS No Start Date 07/31/2015 Inactive Benadryl Allergy 25 mg tablet RxNorm: 9994763 1 Tablet(s) PO daily No Start Date 07/19/2018 Inactive Adderall 30 mg tablet RxNorm: 839871 2 Tablet(s) PO daily No Start Date 01/26/2018 Inactive Aspirin Low Dose 81 mg tablet,delayed release RxNorm: 960794 1 Tablet(s) PO BID No Start Date 07/19/2018 Inactive Singulair 10 mg tablet RxNorm: 398225 1 Tablet(s) PO daily No Start Date 05/09/2018 Inactive cyclobenzaprine 10 m g tablet RxNorm: 077735 1 Tablet(s) PO TID as needed muscle spasms No Start Date 02/21/2018 Inactive Trazadone 100mg 100 mg RxNorm: 1 PO daily No Start Date 07/31/2015 Inactive clindamycin 1 %-arthur oyl peroxide 5 % topical gel RxNorm: 943671 TOP APPLY TO AFFECTED AREA(S) ON SERNA TWO TIMES A DAY No Start Date 11/16/2018 Inactive hydrocortisone 2.5 % topical cream RxNorm: 492379 1 Application TOP BID No Start Date 07/20/2018 Inactive alprazolam 1 mg tablet RxNorm: 934576 2 Tablet(s) PO daily No Start Date 12/14/2017 Inactive tramadol 50 mg tablet RxNorm: 249476 1-2 Tablet(s) PO Q6 as needed No Start Date 08/17/2018 Inactive Vitamin D2 50,000 un it capsule RxNorm: 6314448 1 Capsule(s) PO QW No Start Date 05/17/2018 Inactive pantoprazole 40 mg t ablet,delayed release RxNorm: 172409 1 Tablet(s) PO BID No Start Date 12/22/2017 Inactive atenolol 50 mg tablet RxNorm: 719523 1 Tablet(s) PO daily No Start Date 07/31/2015 Inactive paroxetine 20 mg tablet RxNorm: 127192 2 Tablet(s) PO QHS No Start Date 07/31/2015 Inactive Medication Administered Medication Codes Instruc tions Start Date Status testosterone cypionate 200 mg/mL intramuscular oil RxNorm: 7554965 1.25Milliliter 12/29/2018 No longer Active testosterone cypionate 200 mg/mL intramuscular oil RxNorm: 2526294 Milliliter 12/16/2018 No longer Active testosterone cypionate 200 mg/mL intramuscular oil RxNorm: 7900869 1Milliliter 11/15/2018 No longer Active testosterone cypionate 200 mg/mL intramuscular oil RxNorm: 687688 Milliliter 09/28/2018 No longer Active testosterone cypionate 200 mg/mL intramuscular oil RxNorm: 234452 Milliliter 09/16/2018 No longer Active testosterone cypionate 200 mg/mL intramuscular oil RxNorm: 050053 1Milliliter 09/02/2018 No longer Active testosterone cypionate 200 mg/mL intramuscular oil RxNorm: 227848 Milliliter 08/19/2018 No longer Active testosterone cypionate 200 mg/mL intramuscular oil RxNorm: 043584 Milliliter 07/15/2018 No longer Active testosterone cypionate 200 mg/mL intramuscular oil RxNorm: 696010 Milliliter 06/17/2018 No longer Active testosterone cypionate 200 mg/mL intramuscular oil RxNorm: 045082 Milliliter 05/21/2018 No longer Active ceftriaxone 500 mg solution for injection RxNorm: 7015397 08/03/2015 No longer A ctive Immunizations Vaccine [...] Code Result Date Comp. Metabolic Panel (14) 03195 GLUCOSE 117 mg/dL 12/17/2018 Comp. Metabolic Panel (14) 46337 BUN 17 mg/dL 12/17/2018 Comp. Metabolic Panel (14) 58238 CREATININE 0.99 mg/dL 12/17/2018 Comp. Metabolic Panel (14) 05277 SODIUM 137 mmol/L 12/17/2018 Comp. Metabolic Panel (14) 34326 POTASSIUM 4.6 mmol/L 12/17/2018 Comp. Metabolic Panel (14) 20932 CHLORIDE 102 mmol/L 12/17/2018 Comp. Metabolic Panel (14) 26343 CARBON DIOXIDE 21 mmol/L 12/17/2018 Comp. Metabolic Panel (14) 19008 CALCIUM 9.4 mg/dL 12/17/2018 Comp. Metabolic Panel (14) 58143 TOTAL PROTEIN 7.5 g/dL 12/17/2018 Comp. Metabolic Panel (14) 36974 ALBUMIN 5.1 g/dL 12/17/2018 Comp. Metabolic Panel (14) 98631 ALKALINE PHOSPHATASE 79 U/L 12/17/2018 Comp. Metabolic Panel (14) 30728 TOTAL BILIRUBIN 0.5 mg/dL 12/17/2018 Comp. Metabolic Panel (14) 38915 SGOT (AST) 34 U/L 12/17/2018 Comp. Metabolic Panel (14) 82605 SGPT (ALT) 40 U/L 12/17/2018 Comp. Metabolic Panel (14) 94235 eGFR (mL/min/1.73m2) 115 12/17/2018 Comp. Metabolic Panel (14) 35034 INTERPRETATION 12/17/2018 Testosterone Serum 859949 TESTOSTERONE 96.8 ng/dL 12/17/2018 Cbc With Differential/Platelet 25104 WBC 5.61 thou/uL 9 Cbc With Differential/Platelet 37874 RBC 5.53 mil/uL 12/17/2018 Cbc With Differential/Platelet 32665 HEMOGLOBIN 15.4 g/dL 12/17/2018 Cbc With Differential/Platelet 96501 HEMATOCRIT 48.1 % 12/17/2018 Cbc With Differential/Platelet 58961 MCV 87.0 fL 12/17/2018 Cbc With Differential/Platelet 84250 MCH 27.8 pg 12/17/2018 Cbc With Differential/Platelet 64063 MCHC 32.0 g/dL 12/17/2018 Cbc With Differential/Platelet 88606 RDW-CV 13.9 % 12/17/2018 Cbc With Differential/Platelet 63728 PLATELET COUNT 294 thou/uL 12/17/2018 Cbc With Differential/Platelet 07225 NEUTROPHIL % 71.2 % 12/17/2018 Cbc With Differential/Platelet 39904 LYMPHOCYTE % 22.2 % 12/17/2018 Cbc With Differential/Platelet 27741 MONOCYTE % 5.4 % 12/17/2018 Cbc With Differential/Platelet 70067 EOS % 0.9 % 12/17/2018 Cbc With Differential/Platelet 85418 BASO % 0.4 % 12/17/2018 Cbc With Differential/Platelet 03922 NEUTROPHIL ABS # 3.99 thou/uL 12/17/2018 Cbc With Differential/Platelet 92918 LYMPH ABS # 1.25 thou/uL 12/17/2018 Cbc With Differential/Platelet 50394 MONOCYTE ABS # 0.30 thou/uL 12/17/2018 Cbc With Differential/Platelet 31642 EOS ABS # 0.05 thou/uL 9 Cbc With Differential/Platelet 92670 BASO ABS # 0.02 thou/uL 12/17/2018 Lipid Panel 25766 CHOLES TEROL 227 mg/dL 12/17/2018 Lipid Panel 46236 TRIGLY CERIDES 229 mg/dL 12/17/2018 Lipid Panel 93660 HDL 41 mg/dL 12/17/2018 Lipid Panel 31048 CHOLES TEROL/HDL 5.54 12/17/2018 Lipid Panel 91494 LDL (C ALCULATED) 140 mg/dL 12/17/2018 Lipid Panel 07741 LDL/HDL 3.41 12/17/2018 Lipid Panel 15443 INTERP RETATION 12/17/2018 Tsh 039294 TSH 1.190 uIU/mL 12/17/2018 Testosterone Serum 952280 TESTOSTERONE 44.1 ng/dL 08/18/2018 Hemoglobin 901305 WBC 7.62 thou/uL 08/17/2018 Hemoglobin 855767 RBC 5.23 mil/uL 08/17/2018 Hemoglobin 418125 HEMOGL OBIN 15.0 g/dL 08/17/2018 Hemoglobin 997534 HEMATO CRIT 45.0 % 08/17/2018 Hemoglobin 785817 MCV 86.0 fL 08/17/2018 Hemoglobin 818331 MCH 28.7 pg 08/17/2018 Hemoglobin 782962 MCHC 33.3 g/dL 08/17/2018 Hemoglobin 023231 RDW-CV 12.9 % 08/17/2018 Hemoglobin 551885 PLATEL ET COUNT 313 thou/uL 08/17/2018 Hematocrit 180197 WBC 7.62 thou/uL 08/17/2018 Hematocrit RBC 5.23 mil/uL 08/17/2018 Hematocrit HEMOGL OBIN 15.0 g/dL 08/17/2018 Hematocrit HEMATO CRIT 45.0 % 08/17/2018 Hematocrit MCV 86.0 fL 08/17/2018 Hematocrit MCH 28.7 pg 08/17/2018 Hematocrit MCHC 33.3 g/dL 08/17/2018 Hematocrit RDW-CV 12.9 % 08/17/2018 Hematocrit PLATEL ET COUNT 313 thou/uL 08/17/2018 Culture Mrsa 525628 MRSA CULTURE SEE NOTES 06/21/2018 Comp. Metabolic Panel (14) 45287 GLUCOSE 101 mg/dL 06/18/2018 Comp. Metabolic Panel (14) 01685 BUN 18 mg/dL 06/18/2018 Comp. Metabolic Panel (14) 04580 CREATININE 0.99 mg/dL 06/18/2018 Comp. Metabolic Panel (14) 56775 SODIUM 141 mmol/L 06/18/2018 Comp. Metabolic Panel (14) 70890 POTASSIUM 4.3 mmol/L 06/18/2018 Comp. Metabolic Panel (14) 65733 CHLORIDE 103 mmol/L 06/18/2018 Comp. Metabolic Panel (14) 03374 CARBON DIOXIDE 23 mmol/L 06/18/2018 Comp. Metabolic Panel (14) 62344 CALCIUM 9.8 mg/dL 06/18/2018 Comp. Metabolic Panel (14) 98047 TOTAL PROTEIN 7.1 g/dL 06/18/2018 Comp. Metabolic Panel (14) 62848 ALBUMIN 5.2 g/dL 06/18/2018 Comp. Metabolic Panel (14) 31744 ALKALINE PHOSPHATASE 65 U/L 06/18/2018 Comp. Metabolic Panel (14) 51442 TOTAL BILIRUBIN 0.6 mg/dL 06/18/2018 Comp. Metabolic Panel (14) 08206 SGOT (AST) 21 U/L 06/18/2018 Comp. Metabolic Panel (14) 41280 SGPT (ALT) 24 U/L 06/18/2018 Comp. Metabolic Panel (14) 06950 eGFR (mL/min/1.73m2) 115 06/18/2018 Comp. Metabolic Panel (14) 54302 INTERPRETATION 06/18/2018 Cbc With Differential/Platelet 39054 WBC 4.55 thou/uL 8 Cbc With Differential/Platelet 30299 RBC 5.13 mil/uL 06/18/2018 Cbc With Differential/Platelet 61099 HEMOGLOBIN 14.4 g/dL 06/18/2018 Cbc With Differential/Platelet 41969 HEMATOCRIT 44.1 % 06/18/2018 Cbc With Differential/Platelet 52064 MCV 85.9 fL 06/18/2018 Cbc With Differential/Platelet 14802 MCH 28.1 pg 06/18/2018 Cbc With Differential/Platelet 94588 MCHC 32.7 g/dL 06/18/2018 Cbc With Differential/Platelet 73427 RDW-CV 13.4 % 06/18/2018 Cbc With Differential/Platelet 44486 PLATELET COUNT 287 thou/uL 06/18/2018 Cbc With Differential/Platelet 77732 NEUTROPHIL % 53.9 % 06/18/2018 Cbc With Differential/Platelet 74863 LYMPHOCYTE % 36.1 % 06/18/2018 Cbc With Differential/Platelet 80006 MONOCYTE % 7.4 % 06/18/2018 Cbc With Differential/Platelet 72662 EOS % 1.9 % 06/18/2018 Cbc With Differential/Platelet 88657 BASO % 0.8 % 06/18/2018 Cbc With Differential/Platelet 52692 NEUTROPHIL ABS # 2.45 thou/uL 06/18/2018 Cbc With Differential/Platelet 77188 LYMPH ABS # 1.64 thou/uL 06/18/2018 Cbc With Differential/Platelet 56570 MONOCYTE ABS # 0.34 thou/uL 06/18/2018 Cbc With Differential/Platelet 79626 EOS ABS # 0.09 thou/uL 8 Cbc With Differential/Platelet 10991 BASO ABS # 0.04 thou/uL 06/18/2018 Review [...] Procedure Codes Date THER/PROPH/DIAG INJ SC/IM CPT-4: 56270 12/29/2018 THER/PROPH/DIAG INJ SC/IM CPT-4: 22252 12/16/2018 THER/PROPH/DIAG INJ SC/IM CPT-4: 17754 11/15/2018 THER/PROPH/DIAG INJ SC/IM CPT-4: 45477 09/28/2018 THER/PROPH/DIAG INJ SC/IM CPT-4: 13916 09/16/2018 THER/PROPH/DIAG INJ SC/IM CPT-4: 95740 09/02/2018 THER/PROPH/DIAG INJ SC/IM CPT-4: 87992 08/19/2018 IMMUNIZATION ADMIN CPT- 4: 94168 08/02/2018 FLU VAC NO PRSV 4 VA L 3 YRS+ CPT-4: 32500 08/02/2018 THER/PROPH/DIAG INJ SC/IM CPT-4: 25924 07/15/2018 THER/PROPH/DIAG INJ SC/IM CPT-4: 84798 06/17/2018 THER/PROPH/DIAG INJ SC/IM CPT-4: 05278 05/21/2018 THER/PROPH/DIAG INJ SC/IM CPT-4: 70946 08/03/2015 ROCEPHIN, PER 250 MG CPT-4: J0696 08/03/2015 Vital Signs Date Vital 12/29/2018 Blood Pressure 1: 144/90 Code: 8480-6 BMI: 34.8 Code: 17167-3 Heart Rate 1: 91 bpm Height: 5'7" SpO2: 98% Weight: 222 lbs 12/20/2018 Blood Pressure 1: 124/76 Code: 8480-6 BMI: 35.4 Code: 26074-7 Heart Rate 1: 79 bpm Height: 5'7" SpO2: 99% Weight: 226 lbs 12/16/2018 Blood Pressure 1: 160/90 Code: 8480-6 BMI: 35.4 Code: 29631-3 Heart Rate 1: 90 bpm Height: 5'7" SpO2: 95% Weight: 226 lbs 11/01/2018 Blood Pressure 1: 146/82 Code: 8480-6 BMI: 36.0 Code: 84193-1 Heart Rate 1: 87 bpm Height: 5'7" SpO2: 98% Weight: 230 lbs 09/24/2018 Blood Pressure 1: 140/82 Code: 8480-6 BMI: 36.0 Code: 22287-7 Heart Rate 1: 86 bpm Height: 5'7" SpO2: 98% Temperature: 37.1 (C ) / 98.7 (F) Weight: 230 lbs 08/16/2018 Blood Pressure 1: 148/82 Code: 8480-6 Blood Pressure 2: 157/92 Code: 8480-6 BMI: 35.9 Code: 80454-7 Heart Rate 1: 72 bpm Height: 5'7" SpO2: 96% Weight: 229 lbs 08/02/2018 Blood Pressure 1: 142/86 Code: 8480-6 BMI: 35.2 Code: 45921-5 Heart Rate 1: 101 bpm Height: 5'7" SpO2: 97% Weight: 225 lbs 05/31/2018 Blood Pressure 1: 134/82 Code: 8480-6 BMI: 35.4 Code: 80606-3 Heart Rate 1: 91 bpm Height: 5'7" SpO2: 96% Weight: 226 lbs 05/20/2018 Blood Pressure 1: 160/100 Code: 8480-6 BMI: 35.2 Code: 96945-7 Heart Rate 1: 89 bpm Height: 5'7" SpO2: 98% Weight: 225 lbs 05/10/2018 Blood Pressure 1: 124/70 Code: 8480-6 BMI: 35.1 Code: 58738-5 Heart Rate 1: 93 bpm Height: 5'7" SpO2: 99% Weight: 224 lbs 01/15/2018 Blood Pressure 1: 142/92 Code: 8480-6 BMI: 36.3 Code: 60515-3 Heart Rate 1: 77 bpm Height: 5'7" SpO2: 98% Weight: 232 lbs 12/15/2017 Blood Pressure 1: 156/98 Code: 8480-6 BMI: 36.2 Code: 25771-9 Heart Rate 1: 87 bpm Height: 5'7" [...] Encounters Encounter Performer Loca tion Codes Date [id number]) [id number] EST. P ATIENT, LEVEL III Diagnosis: Testicular hypofunction[ICD10: E29.1] Diagnosis: Cervicalgia[ICD10: M54.2] Diagnosis: Other fatigue[ICD10: R53.83] [facility] CPT-4: 01192 12/29/2018 [id number] EST. PATIENT, LEVEL III Diagnosis: Pain in right arm[ICD10: M79.601] [facility] CPT-4: 23756 12/20/2018 [id number]) [id number] EST. 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 PATIENT, LEVEL III Diagnosis: Acute upper respiratory infection, unspecified[ICD10: J06.9] Diagnosis: Other allergic rhinitis[ICD10: J30.89] Sonia Gonzalez MD, [facility] CPT-4: 32588 09/24/2018 ([id number]) 87864 EST. 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 P ATIENT, LEVEL IV Diagnosis: Essential (primary) hypertension[ICD10: I10] Diagnosis: Cervicalgia[ICD10: M54.2] Radha Gonzalez MD, [facility] CPT-4: 88850 05/31/2018 ([id number]) 94444 EST. 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 12/29/2018 Appointment: Radha Gonzalez WPtel: [address] [place], [place] [phone] (15 min) Moderate 12/29/2018 Patient Education: Patient Medication Summary Completed 12/29/2018 Patient Education: .Cervicalgia Neck Pain Completed 12/29/2018 Patient Education: Patient Medication Summary Completed 12/21/2018 Care Plan: %Hba1C add to blood from 12/17 LOINC : 11976-5 Pending 12/21/2018 Visit Plan: Right arm pain - dayna deformity noted - will refer to ortho - The pt is to use prn antiinflammatories to manage acute pain. The patient is to call the office if the pain is worsening or does not improve. 12/20/2018 Appointment: Sonia Potter WPtel: [facility] (15 min) Moderate 12/20/2018 Patient Education: Patient [...] Radha Gonzalez WPtel: [facility] (15 min) Moderate 12/16/2018 Patient Education: Patient [...] needed. 11/01/2018 Appointment: [facility]el[facility] [phone] [facility] (15 min) Moderate 11/01/2018 Patient Education: Patient [...] [facility] [address] (15 min) Moderate 09/24/2018 Patient Education: Patient [...] at home. Multiple symptoms - referral to [facility] - appt in September 30, 2018. 08/16/2018 Appointment: [facility] Gonzalez [facility]el[facility] [phone] [facility] (15 min) Moderate 08/16/2018 Patient Education: [...] at home. Multiple symptoms - referral to [facility] - rashes, hypogonadism, optic neuritis - all points to possible autoimmune syndrome. Spinal stenosis - of thoracic region - pt to talk to Dr. Dunaway about referral to a different specialist for his mid- back. Hypogonadism - continue with testosterone. Flu shot given today in clinic. 08/02/2018 Appointment: Radha Gonzalez [facility]Ptel[facility] [phone] [facility] [place] (15 min) Moderate 08/02/2018 Patient Education: Patient Medication Summary Completed 08/02/2018 Care Plan: Referral Order SNOMED-CT : 510200461 Pending 08/02/2018 Appointment: Injection 07/15/2018 Patient Education: [...] Cervical spine stenosis - referral to [facility]. I have also recommended a Referral to Dr. Dunaway. I have called and talked to Dr. Dunaway - he looked at the pt's imaging and agrees that getting the pt in to be seen soon would be a preferred option. 05/31/2018 Appointment: Radha Gonzalez [facility]Ptel[facility] [phone] [facility] [place] (15 min) Moderate 05/31/2018 Patient Education: Patient Medication Summary Completed 05/31/2018 Care Plan: Referral Order SNOMED-CT : [id number] Pending 05/31/2018 Care Plan: Referral Order SNOMED-CT : [id number] Pending 05/31/2018 Appointment: Injection 05/21/2018 Patient Education: Patient Medication Summary Completed 05/21/2018 Care Plan: Referral Order SNOMED-CT : [id number] Pending 05/21/2018 Visit Plan: Cervical and thoracic s tenosis with spinal cord compression -refer for appt with Dr Marr -rx for hydrocodone for pain-start gabapentin at bedtime Soft tissue lesion-left chest-schedule CTfor further evaluation HTN-elevated today-hold adderall-monitor blood pressure 05/20/2018 Appointment: Hannah Simons [facility]Ptel: [phone] [phone] [place] (15 min) Moderate 05/20/2018 Patient Education: [...] this. 05/10/2018 Appointment: Sonia Potter WPtel: [facility] [place] (15 min) Moderate 05/10/2018 Patient Education: Patient Medication Summary Completed 05/10/2018 Visit Plan: Sleep apnea - rx for cp ap - actually autopap was recommended and pt given rx today. HTN - referral to dr. kapoor - pt needs stress testing. 01/15/2018 Appointment: Rad[facility] Gonzalez [facility]el[facility] [phone] [facility] [place] (15 min) Moderate 01/15/2018 Patient Education: Patient Medication Summary Completed 01/15/2018 Care Plan: Referral Order SNOMED-CT : [id number] Pending 01/15/2018 Visit Plan: Well Adult - [...] reports RTC in one month. 12/15/2017 Appointment: Lisa Radha WPtel: [phone] [facility] New Patient 12/15/2017 Patient Education: Patient Medication Summary Completed 12/15/2017 Care Plan: CHEST X-RAY 2VW FRONTAL&LATL LOINC : 04467-5 Pending 12/15/2017 Appointment: LisaRadha WPtel: [phone] (15 min) Moderate 12/08/2017 Appointment: (S) [...] Ordering Provider 08/03 Referral info faxed to [facility]. Patient informed to be expecting a call from them with appt info Appointment Requested Referral: External, Ordering Provider Referral Appointment Requested Referral: External, Ordering Provider I called today; they will call him to schedule. Completed Referral: Armani Dunaway Referral Appointment Requested Referral: Mayte Kapoor Referral Appointment Requested Referral: [facility] WPtel: [phone] [facility] Referral Appointment Requested Referral: External, Ordering Provider [...] at home. Multiple symptoms - referral to [facility] - rashes, hypogonadism, optic neuritis - [...] at home. Multiple symptoms - referral to [facility] - appt in September 30, 2018. [...] fill prior to his trip to [place] will refill meds for 90 days Will [...] home. [facility]ervical spine stenosis [facility] I have also recommended a Referral to Dr. Dunaway. I have called and talked to Dr. Dunaway - he looked at the pt's imaging and agrees that getting the pt in to be seen soon would be a preferred option.
--- OUTSIDE RECORDS SUMMARY | 2020-04-28 00:40 | XMS REPORT | CCD ---
Author Author Nilton Gonzalez Organization [facility] Address [address] [place] [address] Phone Care Team Providers Care Keyseater Operator Name Role Phone PP Unavailable CCM Unavailable Summary Purpose Interface Exchange Insurance Providers Payer name Policy type / Coverage type Covered green party ID Effective Begin Date Effective End Date [employer] [id number] 2018 Unknown Family history Brother Diagnosis Age At Onset Alcoholism Unknown Father Diagnosis Age At Onset Hypercholesterolemia Unknown Social History Social History Element Codes Description Effective Dates Marital status Unknown S chanda 12/15/2017 Number of children Unknown 1 12/15/2017 Employment Unknown 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 [employer] 12/15/[address]: 784630031 Never smoker 12/15/[address]: 426293 Currently drinks alcohol <1 per week 12/15/2017 [...] 5 mg-fanny taminophen 325 mg tablet RxNorm: 904244 1-2 Tablet(s) PO Q6 a s needed 02/23/2019 No Stop Date Active Adderall 30 mg tablet RxNorm: 925736 2 Tablet(s) PO daily 02/23/2019 03/24/2019 Active Adderall 30 mg tablet RxNorm: 724656 2 Tablet(s) PO daily 01/24/2019 02/22/2019 Inactive ketoconazole 2 % top ical cream RxNorm: 532407 APPLY ONE GRAM TOPICA LLY TWICE A DAY 01/12/2019 01/26/2019 In active tramadol 50 mg tablet RxNorm: 969321 1-2 Tablet(s) PO Q6 as needed 01/11/2019 No Stop Date Active atenolol 50 mg tablet RxNorm: 955823 1.5 Tablet(s) PO BID 12/29/2018 12/23/2019 Active hydrocodone 5 mg-fanny taminophen 325 mg tablet RxNorm: 748668 1-2 Tablet(s) PO Q6 a s needed 12/29/2018 02/22/2019 Inactive Adderall 30 mg tablet RxNorm: 274701 2 Tablet(s) PO daily 12/29/2018 01/23/2019 Inactive hydrocodone 5 mg-fanny taminophen 325 mg tablet RxNorm: 185730 1-2 Tablet(s) PO Q6 a s needed 12/29/2018 12/28/2018 Inactive testosterone cypiona te 200 mg/mL intramuscular oil RxNorm: 7607813 1.25 Milliliter(s) IM 12/29/2018 12/29/2018 Inactive hydrocodone 5 mg-fanny taminophen 325 mg tablet RxNorm: 144723 1 Tablet(s) PO TID GA N 12/28/2018 12/28/2018 In active testosterone cypiona te 200 mg/mL intramuscular oil RxNorm: 4634803 1.25 Milliliter(s) IM 2 x month 12/22/2018 04/12/2019 Active gabapentin 300 mg ca psule RxNorm: 694441 1 Capsule(s) PO QID 12/16/2018 12/10/2019 Active testosterone cypiona te 200 mg/mL intramuscular oil RxNorm: 2543470 Milliliter(s) IM 12/16/2018 12/16/2018 In active Voltaren 1 % topical gel RxNorm: 922302 2 Gram(s) APPLY TOPIC ALLY four TIMES A DAY 12/16/2018 01/20/2019 In active trazodone 100 mg tablet RxNorm: 156824 TAKE ONE TABLET BY MOUTH EVERY NIGHT AT BEDTIME 12/07/2018 06/04/2019 Active hydrocodone 5 mg-fanny taminophen 325 mg tablet RxNorm: 274116 1 Tablet(s) PO TID GA N 11/29/2018 12/27/2018 In active Adderall 30 mg tablet RxNorm: 830504 2 Tablet(s) PO daily 11/29/2018 12/28/2018 Inactive clindamycin 1 %-arthur oyl peroxide 5 % topical gel RxNorm: 648915 TOP APPLY TO AFFECTED AREA(S) ON SERNA TWO TIMES A DAY 11/17/2018 No Stop Date Active testosterone cypiona te 200 mg/mL intramuscular oil RxNorm: 0245562 1 Milliliter(s) IM 2 x month 11/17/2018 12/21/2018 Inactive Zorvolex 35 mg capsule RxNorm: 3059195 1 Capsule(s) PO TID as needed for pain 11/15/2018 05/13/2019 Ac tive ketoconazole 2 % top ical cream RxNorm: 321528 APPLY ONE GRAM TOPICA LLY TWICE A DAY 11/15/2018 11/29/2018 In active testosterone cypiona te 200 mg/mL intramuscular oil RxNorm: 4713224 1 Milliliter(s) IM 11/15/2018 11/14/2018 Inactive hydrocodone 5 mg-fanny taminophen 325 mg tablet RxNorm: 003244 1 Tablet(s) PO TID GA N 11/02/2018 11/28/2018 In active Singulair 10 mg tablet RxNorm: 451004 1 Tablet(s) PO daily 11/01/2018 07/28/2019 Active testosterone cypiona te 200 mg/mL intramuscular oil RxNorm: 7426902 1 Milliliter(s) IM 2 x month 11/01/2018 11/16/2018 Inactive Adderall 30 mg tablet RxNorm: 761937 2 Tablet(s) PO daily 10/29/2018 11/27/2018 Inactive gabapentin 300 mg ca psule RxNorm: 383559 1 Capsule(s) PO BID m ay take TID 10/19/2018 12/15/2018 In active gabapentin 300 mg ca psule RxNorm: 569167 1 Capsule(s) PO BID m ay take TID 10/19/2018 10/18/2018 In active alprazolam 1 mg tablet RxNorm: 933228 1 Tablet(s) PO TID as needed 10/15/2018 12/13/2018 Inactive testosterone cypiona te 200 mg/mL intramuscular oil RxNorm: 853802 Milliliter(s) IM 09/28/2018 09/28/2018 In active pravastatin 40 mg ta blet RxNorm: 016587 TAKE ONE TABLET BY MO UTH EVERY NIGHT AT BEDTIME 09/27/2018 09/21/2019 Active Tamiflu 75 mg capsule RxNorm: 634949 1 Capsule(s) PO BID 09/24/2018 09/28/2018 Inactive Adderall 30 mg tablet RxNorm: 050624 2 Tablet(s) PO daily 09/20/2018 10/19/2018 Inactive hydrocodone 5 mg-fanny taminophen 325 mg tablet RxNorm: 668076 1 Tablet(s) PO TID GA N 09/20/2018 11/01/2018 In active testosterone cypiona te 200 mg/mL intramuscular oil RxNorm: 556638 Milliliter(s) IM 09/16/2018 09/16/2018 In active testosterone cypiona te 200 mg/mL intramuscular oil RxNorm: 896880 1 Milliliter(s) IM 09/02/2018 09/02/2018 Inactive testosterone cypiona te 200 mg/mL intramuscular oil RxNorm: 471612 Milliliter(s) IM 08/19/2018 08/19/2018 In active Adderall 30 mg tablet RxNorm: 136399 2 Tablet(s) PO daily 08/18/2018 09/16/2018 Inactive tramadol 50 mg tablet RxNorm: 503801 1-2 Tablet(s) PO Q6 as needed 08/18/2018 01/12/2019 In active Dexilant 60 mg capsu le, delayed release RxNorm: 459908 1 Capsule(s) PO BID 08/17/2018 08/11/2019 Ac tive ketoconazole 2 % top ical cream RxNorm: 943775 1 Gram(s) TOP BID 08/17/2018 08/26/2018 Inactive Zorvolex 35 mg capsule RxNorm: 2202655 1 Capsule(s) PO TID as needed for pain 08/17/2018 08/16/2018 In active atenolol 50 mg tablet RxNorm: 498359 1 Tablet(s) PO BID 08/17/2018 12/28/2018 Inactive Zorvolex 35 mg capsule RxNorm: 4495508 1 Capsule(s) PO TID as needed for pain 08/17/2018 11/14/2018 In active ketoconazole 2 % top ical cream RxNorm: 434609 1 Gram(s) TOP BID 08/02/2018 08/11/2018 Inactive hydrocortisone 2.5 % topical cream RxNorm: 085553 1 Application TOP BID 07/21/2018 No Stop Date Active Adderall 30 mg tablet RxNorm: 902202 2 Tablet(s) PO daily 07/20/2018 08/17/2018 Inactive testosterone cypiona te 200 mg/mL intramuscular oil RxNorm: 010893 Milliliter(s) IM 07/15/2018 07/15/2018 In active alprazolam 1 mg tablet RxNorm: 897060 1 Tablet(s) PO TID as needed 07/12/2018 09/07/2018 Inactive hydrocodone 5 mg-fanny taminophen 325 mg tablet RxNorm: 449247 1 Tablet(s) PO TID GA N 06/30/2018 09/19/2018 In active pravastatin 40 mg ta blet RxNorm: 088226 1 Tablet(s) PO QHS 06/18/2018 09/15/2018 Inactive Adderall 30 mg tablet RxNorm: 958431 2 Tablet(s) PO daily 06/18/2018 07/17/2018 Inactive testosterone cypiona te 200 mg/mL intramuscular oil RxNorm: 154742 Milliliter(s) IM 06/17/2018 06/17/2018 In active Voltaren 1 % topical gel RxNorm: 148602 APPLY TOPICALLY TWO T IMES A DAY 06/16/2018 07/21/2018 In active Vitamin D2 50,000 un it capsule RxNorm: 9006376 1 Capsule(s) PO QW 05/21/2018 No Stop Date Active Adderall 30 mg tablet RxNorm: 746099 2 Tablet(s) PO daily 05/21/2018 06/17/2018 Inactive testosterone cypiona te 200 mg/mL intramuscular oil RxNorm: 683006 Milliliter(s) IM 05/21/2018 05/21/2018 In active testosterone cypiona te 200 mg/mL intramuscular oil RxNorm: 2628582 1 Milliliter(s) IM monthly 05/20/2018 09/16/2018 Inactive testosterone cypiona te 200 mg/mL intramuscular oil RxNorm: 076108 1 Milliliter(s) IM monthly 05/20/2018 05/19/2018 Inactive hydrocodone 5 mg-fanny taminophen 325 mg tablet RxNorm: 228295 1 Tablet(s) PO TID GA N 05/20/2018 06/29/2018 In active Vitamin D2 50,000 un it capsule RxNorm: 7970993 1 Capsule(s) PO QW 05/18/2018 05/20/2018 Inactive triamcinolone aceton destin 0.025 % topical cream RxNorm: 2324455 1 Application TOP BI D 05/13/2018 No Stop Date Active Dexilant 60 mg capsu le, delayed release RxNorm: 792450 1 Capsule(s) PO BID 05/13/2018 08/16/2018 In active Zorvolex 35 mg capsule RxNorm: 9194969 1 Capsule(s) PO TID as needed for pain 05/12/2018 08/09/2018 In active Voltaren 1 % topical gel RxNorm: 619138 1 Application TOP BID 05/12/2018 06/15/2018 Inactive acyclovir 400 mg tablet RxNorm: 671702 1 Tablet(s) PO TID as needed take at ons et of symptoms of cold sores x 5 days 05/10/2018 No Stop Date Active paroxetine 20 mg tablet RxNorm: 1146667 2 Tablet(s) PO QHS 05/10/2018 10/31/2019 Active ProAir HFA 90 mcg/ac tuation aerosol inhaler RxNorm: 162272 1 Puff(s) INH QID as needed 05/10/2018 No Stop Date Active baclofen 20 mg tablet RxNorm: 813959 1 Tablet(s) PO TID as needed muscle spas ms 05/10/2018 06/08/2018 In active Singulair 10 mg tablet RxNorm: 070084 1 Tablet(s) PO daily 05/10/2018 08/07/2018 Inactive atenolol 50 mg tablet RxNorm: 488156 1 Tablet(s) PO BID 05/10/2018 08/07/2018 Inactive triamcinolone aceton destin 0.025 % topical cream RxNorm: 2861514 1 Application TOP BI D 05/10/2018 05/12/2018 In active tramadol 50 mg tablet RxNorm: 205447 1 Tablet(s) PO TID as needed 05/10/2018 05/19/2018 Inactive Dexilant 60 mg capsu le, delayed release RxNorm: 749959 1 Capsule(s) PO daily 05/10/2018 05/12/2018 In active alprazolam 1 mg tablet RxNorm: 278670 1 Tablet(s) PO TID as needed 05/10/2018 08/06/2018 Inactive trazodone 100 mg tablet RxNorm: 749576 1 Tablet(s) PO QHS 05/10/2018 11/05/2018 Inactive cyclobenzaprine 10 m g tablet RxNorm: 749195 1 Tablet(s) PO TID as needed muscle spasms 05/07/2018 07/12/2018 Inactive trazodone 100 mg tablet RxNorm: 856482 1 Tablet(s) PO QHS 05/07/2018 05/09/2018 Inactive Adderall 30 mg tablet RxNorm: 386058 2 Tablet(s) PO daily 04/19/2018 05/18/2018 Inactive alprazolam 1 mg tablet RxNorm: 976656 1 Tablet(s) PO BID 04/19/2018 05/09/2018 Inactive Adderall 30 mg tablet RxNorm: 907124 2 Tablet(s) PO daily 03/26/2018 04/18/2018 Inactive paroxetine 20 mg tablet RxNorm: 7337462 2 Tablet(s) PO QHS 03/15/2018 05/09/2018 Inactive Adderall 30 mg tablet RxNorm: 250905 2 Tablet(s) PO daily 02/25/2018 03/25/2018 Inactive cyclobenzaprine 10 m g tablet RxNorm: 587883 1 Tablet(s) PO TID as needed muscle spasms 02/22/2018 05/06/2018 Inactive tramadol 50 mg tablet RxNorm: 796313 1 Tablet(s) PO TID as needed 02/22/2018 03/07/2018 Inactive tramadol 50 mg tablet RxNorm: 104620 1 Tablet(s) PO TID as needed 02/22/2018 02/21/2018 Inactive trazodone 100 mg tablet RxNorm: 592799 1 Tablet(s) PO QHS 02/03/2018 05/03/2018 Inactive trazodone 100 mg tablet RxNorm: 769503 1 Tablet(s) PO QHS 02/03/2018 02/02/2018 Inactive Adderall 30 mg tablet RxNorm: 521595 2 Tablet(s) PO daily 01/27/2018 02/18/2018 Inactive acyclovir 400 mg tablet RxNorm: 692310 1 Tablet(s) PO TID as needed take at ons et of symptoms of cold sores x 5 days 01/15/2018 05/09/2018 Inactive Bactrim DS 800 mg-16 0 mg tablet RxNorm: 901253 1 Tablet(s) PO BID 01/11/2018 01/17/2018 Inactive Bactrim DS 800 mg-16 0 mg tablet RxNorm: 441050 1 Tablet(s) PO BID 01/11/2018 01/10/2018 Inactive Dexilant 60 mg capsu le, delayed release RxNorm: 606673 1 Capsule(s) PO daily 12/23/2017 05/09/2018 In active Dexilant 60 mg capsu le, delayed release RxNorm: 546623 1 Capsule(s) PO daily 12/23/2017 12/22/2017 In active atenolol 50 mg tablet RxNorm: 172657 1 Tablet(s) PO BID 12/15/2017 05/09/2018 Inactive alprazolam 1 mg tablet RxNorm: 237663 1-1.5 Tablet(s) PO daily 12/15/2017 04/18/2018 Inactive ceftriaxone 500 mg s olution for injection RxNorm: 8680062 Inj 08/03/2015 08/03/2015 Inactive paroxetine 20 mg tablet RxNorm: 4147657 2 Tablet(s) PO QHS 08/01/2015 10/29/2015 Inactive pravastatin 40 mg ta blet RxNorm: 432974 1/2 Tablet(s) PO QHS 08/01/2015 12/14/2017 Inactive Trazadone 100mg 100 mg RxNorm: 1 PO daily 08/01/2015 11/27/2015 Inactive Trazadone 100mg 100 mg RxNorm: 1 PO daily 08/01/2015 05/04/2018 Inactive atenolol 50 mg tablet RxNorm: 866965 1 Tablet(s) PO daily 08/01/2015 10/29/2015 Inactive ibuprofen 800 mg tablet RxNorm: 997809 1 Tablet(s) PO BID -TID No Start Date Active Fish Oil 360 mg-1,20 0 mg capsule RxNorm: 740133 1 Capsule(s) PO BID No Start Date Active Zyrtec 10 mg tablet RxNorm: 7991019 1 Tablet(s) PO daily No Start Date Active pravastatin 40 mg ta blet RxNorm: 745700 1/2 Tablet(s) PO QHS No Start Date 07/31/2015 Inactive Benadryl Allergy 25 mg tablet RxNorm: 2071912 1 Tablet(s) PO daily No Start Date 07/19/2018 Inactive Adderall 30 mg tablet RxNorm: 240760 2 Tablet(s) PO daily No Start Date 01/26/2018 Inactive Aspirin Low Dose 81 mg tablet,delayed release RxNorm: 427628 1 Tablet(s) PO BID No Start Date 07/19/2018 Inactive Singulair 10 mg tablet RxNorm: 523830 1 Tablet(s) PO daily No Start Date 05/09/2018 Inactive cyclobenzaprine 10 m g tablet RxNorm: 388188 1 Tablet(s) PO TID as needed muscle spasms No Start Date 02/21/2018 Inactive Trazadone 100mg 100 mg RxNorm: 1 PO daily No Start Date 07/31/2015 Inactive clindamycin 1 %-arthur oyl peroxide 5 % topical gel RxNorm: 929366 TOP APPLY TO AFFECTED AREA(S) ON SERNA TWO TIMES A DAY No Start Date 11/16/2018 Inactive hydrocortisone 2.5 % topical cream RxNorm: 608505 1 Application TOP BID No Start Date 07/20/2018 Inactive alprazolam 1 mg tablet RxNorm: 118918 2 Tablet(s) PO daily No Start Date 12/14/2017 Inactive tramadol 50 mg tablet RxNorm: 526476 1-2 Tablet(s) PO Q6 as needed No Start Date 08/17/2018 Inactive Vitamin D2 50,000 un it capsule RxNorm: 8747203 1 Capsule(s) PO QW No Start Date 05/17/2018 Inactive pantoprazole 40 mg t ablet,delayed release RxNorm: 137044 1 Tablet(s) PO BID No Start Date 12/22/2017 Inactive atenolol 50 mg tablet RxNorm: 294831 1 Tablet(s) PO daily No Start Date 07/31/2015 Inactive paroxetine 20 mg tablet RxNorm: 179234 2 Tablet(s) PO QHS No Start Date 07/31/2015 Inactive Medication Administered Medication Codes Instruc tions Start Date Status testosterone cypionate 200 mg/mL intramuscular oil RxNorm: 7211979 1.25Milliliter 12/29/2018 No longer Active testosterone cypionate 200 mg/mL intramuscular oil RxNorm: 8191783 Milliliter 12/16/2018 No longer Active testosterone cypionate 200 mg/mL intramuscular oil RxNorm: 8468299 1Milliliter 11/15/2018 No longer Active testosterone cypionate 200 mg/mL intramuscular oil RxNorm: 920172 Milliliter 09/28/2018 No longer Active testosterone cypionate 200 mg/mL intramuscular oil RxNorm: 390782 Milliliter 09/16/2018 No longer Active testosterone cypionate 200 mg/mL intramuscular oil RxNorm: 492467 1Milliliter 09/02/2018 No longer Active testosterone cypionate 200 mg/mL intramuscular oil RxNorm: 773796 Milliliter 08/19/2018 No longer Active testosterone cypionate 200 mg/mL intramuscular oil RxNorm: 276814 Milliliter 07/15/2018 No longer Active testosterone cypionate 200 mg/mL intramuscular oil RxNorm: 121882 Milliliter 06/17/2018 No longer Active testosterone cypionate 200 mg/mL intramuscular oil RxNorm: 684773 Milliliter 05/21/2018 No longer Active ceftriaxone 500 mg solution for injection RxNorm: 3777516 08/03/2015 No longer A ctive Immunizations Vaccine [...] Item Code Result Date Comp. Metabolic Panel (14 52417 GLUCOSE 117 mg/dL 12/17/2018 Comp. Metabolic Panel (14) 54504 BUN 17 mg/dL 12/17/2018 Comp. Metabolic Panel (14) 40634 CREATININE 0.99 mg/dL 12/17/2018 Comp. Metabolic Panel (14) 64002 SODIUM 137 mmol/L 12/17/2018 Comp. Metabolic Panel (14) 98162 POTASSIUM 4.6 mmol/L 12/17/2018 Comp. Metabolic Panel (14) 95025 CHLORIDE 102 mmol/L 12/17/2018 Comp. Metabolic Panel (14) 13445 CARBON DIOXIDE 21 mmol/L 12/17/2018 Comp. Metabolic Panel (14) 36019 CALCIUM 9.4 mg/dL 12/17/2018 Comp. Metabolic Panel (14) 06838 TOTAL PROTEIN 7.5 g/dL 12/17/2018 Comp. Metabolic Panel (14) 13565 ALBUMIN 5.1 g/dL 12/17/2018 Comp. Metabolic Panel (14) 12371 ALKALINE PHOSPHATASE 79 U/L 12/17/2018 Comp. Metabolic Panel (14) 57149 TOTAL BILIRUBIN 0.5 mg/dL 12/17/2018 Comp. Metabolic Panel (14) 38234 SGOT (AST) 34 U/L 12/17/2018 Comp. Metabolic Panel (14) 99880 SGPT (ALT) 40 U/L 12/17/2018 Comp. Metabolic Panel (14) 39425 eGFR (mL/min/1.73m2) 115 12/17/2018 Comp. Metabolic Panel (14) 93984 INTERPRETATION 12/17/2018 Testosterone Serum 257873 TESTOSTERONE 96.8 ng/dL 12/17/2018 Cbc With Differential/Platelet 71546 WBC 5.61 thou/uL 9 Cbc With Differential/Platelet 36490 RBC 5.53 mil/uL 12/17/2018 Cbc With Differential/Platelet 44198 HEMOGLOBIN 15.4 g/dL 12/17/2018 Cbc With Differential/Platelet 63333 HEMATOCRIT 48.1 % 12/17/2018 Cbc With Differential/Platelet 20523 MCV 87.0 fL 12/17/2018 Cbc With Differential/Platelet 29733 MCH 27.8 pg 12/17/2018 Cbc With Differential/Platelet 33921 MCHC 32.0 g/dL 12/17/2018 Cbc With Differential/Platelet 11127 RDW-CV 13.9 % 12/17/2018 Cbc With Differential/Platelet 05000 PLATELET COUNT 294 thou/uL 12/17/2018 Cbc With Differential/Platelet 39583 NEUTROPHIL % 71.2 % 12/17/2018 Cbc With Differential/Platelet 22671 LYMPHOCYTE % 22.2 % 12/17/2018 Cbc With Differential/Platelet 08799 MONOCYTE % 5.4 % 12/17/2018 Cbc With Differential/Platelet 61177 EOS % 0.9 % 12/17/2018 Cbc With Differential/Platelet 19105 BASO % 0.4 % 12/17/2018 Cbc With Differential/Platelet 56676 NEUTROPHIL ABS # 3.99 thou/uL 12/17/2018 Cbc With Differential/Platelet 57809 LYMPH ABS # 1.25 thou/uL 12/17/2018 Cbc With Differential/Platelet 06048 MONOCYTE ABS # 0.30 thou/uL 12/17/2018 Cbc With Differential/Platelet 09141 EOS ABS # 0.05 thou/uL 9 Cbc With Differential/Platelet 87406 BASO ABS # 0.02 thou/uL 12/17/2018 Lipid Panel 10121 CHOLES TEROL 227 mg/dL 12/17/2018 Lipid Panel 31611 TRIGLY CERIDES 229 mg/dL 12/17/2018 Lipid Panel 40763 HDL 41 mg/dL 12/17/2018 Lipid Panel 12385 CHOLES TEROL/HDL 5.54 12/17/2018 Lipid Panel 82566 LDL (C ALCULATED) 140 mg/dL 12/17/2018 Lipid Panel 43280 LDL/HDL 3.41 12/17/2018 Lipid Panel 51226 INTERP RETATION 12/17/2018 Tsh 714690 TSH 1.190 uIU/mL 12/17/2018 Testosterone Serum 597764 TESTOSTERONE 44.1 ng/dL 08/18/2018 Hemoglobin 324978 WBC 7.62 thou/uL 08/17/2018 Hemoglobin 803335 RBC 5.23 mil/uL 08/17/2018 Hemoglobin 043440 HEMOGL OBIN 15.0 g/dL 08/17/2018 Hemoglobin 513926 HEMATO CRIT 45.0 % 08/17/2018 Hemoglobin 777349 MCV 86.0 fL 08/17/2018 Hemoglobin 813469 MCH 28.7 pg 08/17/2018 Hemoglobin 133115 MCHC 33.3 g/dL 08/17/2018 Hemoglobin 919924 RDW-CV 12.9 % 08/17/2018 Hemoglobin 355652 PLATEL ET COUNT 313 thou/uL 08/17/2018 Hematocrit 486087 WBC 7.62 thou/uL 08/17/2018 Hematocrit 746173 RBC 5.23 mil/uL 08/17/2018 Hematocrit HEMOGL OBIN 15.0 g/dL 08/17/2018 Hematocrit HEMATO CRIT 45.0 % 08/17/2018 Hematocrit MCV 86.0 fL 08/17/2018 Hematocrit MCH 28.7 pg 08/17/2018 Hematocrit MCHC 33.3 g/dL 08/17/2018 Hematocrit RDW-CV 12.9 % 08/17/2018 Hematocrit PLATEL ET COUNT 313 thou/uL 08/17/2018 Culture Mrsa 489830 MRSA CULTURE SEE NOTES 06/21/2018 Comp. Metabolic Panel (14) 31457 GLUCOSE 101 mg/dL 06/18/2018 Comp. Metabolic Panel (14) 29636 BUN 18 mg/dL 06/18/2018 Comp. Metabolic Panel (14) 37906 CREATININE 0.99 mg/dL 06/18/2018 Comp. Metabolic Panel (14) 98584 SODIUM 141 mmol/L 06/18/2018 Comp. Metabolic Panel (14) 37780 POTASSIUM 4.3 mmol/L 06/18/2018 Comp. Metabolic Panel (14) 08111 CHLORIDE 103 mmol/L 06/18/2018 Comp. Metabolic Panel (14) 25760 CARBON DIOXIDE 23 mmol/L 06/18/2018 Comp. Metabolic Panel (14) 51769 CALCIUM 9.8 mg/dL 06/18/2018 Comp. Metabolic Panel (14) 55655 TOTAL PROTEIN 7.1 g/dL 06/18/2018 Comp. Metabolic Panel (14) 69230 ALBUMIN 5.2 g/dL 06/18/2018 Comp. Metabolic Panel (14) 91295 ALKALINE PHOSPHATASE 65 U/L 06/18/2018 Comp. Metabolic Panel (14) 18775 TOTAL BILIRUBIN 0.6 mg/dL 06/18/2018 Comp. Metabolic Panel (14) 07668 SGOT (AST) 21 U/L 06/18/2018 Comp. Metabolic Panel (14) 71222 SGPT (ALT) 24 U/L 06/18/2018 Comp. Metabolic Panel (14) 60324 eGFR (mL/min/1.73m2) 115 06/18/2018 Comp. Metabolic Panel (14) 44800 INTERPRETATION 06/18/2018 Cbc With Differential/Platelet 10760 WBC 4.55 thou/uL 8 Cbc With Differential/Platelet 08645 RBC 5.13 mil/uL 06/18/2018 Cbc With Differential/Platelet 03205 HEMOGLOBIN 14.4 g/dL 06/18/2018 Cbc With Differential/Platelet 66421 HEMATOCRIT 44.1 % 06/18/2018 Cbc With Differential/Platelet 94321 MCV 85.9 fL 06/18/2018 Cbc With Differential/Platelet 20264 MCH 28.1 pg 06/18/2018 Cbc With Differential/Platelet 14431 MCHC 32.7 g/dL 06/18/2018 Cbc With Differential/Platelet 97610 RDW-CV 13.4 % 06/18/2018 Cbc With Differential/Platelet 16928 PLATELET COUNT 287 thou/uL 06/18/2018 Cbc With Differential/Platelet 16521 NEUTROPHIL % 53.9 % 06/18/2018 Cbc With Differential/Platelet 94501 LYMPHOCYTE % 36.1 % 06/18/2018 Cbc With Differential/Platelet 74095 MONOCYTE % 7.4 % 06/18/2018 Cbc With Differential/Platelet 59028 EOS % 1.9 % 06/18/2018 Cbc With Differential/Platelet 97314 BASO % 0.8 % 06/18/2018 Cbc With Differential/Platelet 11880 NEUTROPHIL ABS # 2.45 thou/uL 06/18/2018 Cbc With Differential/Platelet 30342 LYMPH ABS # 1.64 thou/uL 06/18/2018 Cbc With Differential/Platelet 89085 MONOCYTE ABS # 0.34 thou/uL 06/18/2018 Cbc With Differential/Platelet 57151 EOS ABS # 0.09 thou/uL 8 Cbc With Differential/Platelet 21611 BASO ABS # 0.04 thou/uL 06/18/2018 Review [...] Procedure Codes Date THER/PROPH/DIAG INJ SC/IM CPT-4: 76900 12/29/2018 THER/PROPH/DIAG INJ SC/IM CPT-4: 44512 12/16/2018 THER/PROPH/DIAG INJ SC/IM CPT-4: 19637 11/15/2018 THER/PROPH/DIAG INJ SC/IM CPT-4: 44539 09/28/2018 THER/PROPH/DIAG INJ SC/IM CPT-4: 87184 09/16/2018 THER/PROPH/DIAG INJ SC/IM CPT-4: 15838 09/02/2018 THER/PROPH/DIAG INJ SC/IM CPT-4: 96402 08/19/2018 IMMUNIZATION ADMIN CPT- 4: 69042 08/02/2018 FLU VAC NO PRSV 4 VA L 3 YRS+ CPT-4: 87400 08/02/2018 THER/PROPH/DIAG INJ SC/IM CPT-4: 54837 07/15/2018 THER/PROPH/DIAG INJ SC/IM CPT-4: 96736 06/17/2018 THER/PROPH/DIAG INJ SC/IM CPT-4: 49042 05/21/2018 THER/PROPH/DIAG INJ SC/IM CPT-4: 02606 08/03/2015 ROCEPHIN, PER 250 MG CPT-4: J0696 08/03/2015 Vital Signs Date Vital 12/29/2018 Blood Pressure 1: 144/90 Code: 8480-6 BMI: 34.8 Code: 86264-8 Heart Rate 1: 91 bpm Height: 5'7" SpO2: 98% Weight: 222 lbs 12/20/2018 Blood Pressure 1: 124/76 Code: 8480-6 BMI: 35.4 Code: 37794-2 Heart Rate 1: 79 bpm Height: 5'7" SpO2: 99% Weight: 226 lbs 12/16/2018 Blood Pressure 1: 160/90 Code: 8480-6 BMI: 35.4 Code: 83094-6 Heart Rate 1: 90 bpm Height: 5'7" SpO2: 95% Weight: 226 lbs 11/01/2018 Blood Pressure 1: 146/82 Code: 8480-6 BMI: 36.0 Code: 29425-5 Heart Rate 1: 87 bpm Height: 5'7" SpO2: 98% Weight: 230 lbs 09/24/2018 Blood Pressure 1: 140/82 Code: 8480-6 BMI: 36.0 Code: 37066-6 Heart Rate 1: 86 bpm Height: 5'7" SpO2: 98% Temperature: 37.1 (C ) / 98.7 (F) Weight: 230 lbs 08/16/2018 Blood Pressure 1: 148/82 Code: 8480-6 Blood Pressure 2: 157/92 Code: 8480-6 BMI: 35.9 Code: 28930-7 Heart Rate 1: 72 bpm Height: 5'7" SpO2: 96% Weight: 229 lbs 08/02/2018 Blood Pressure 1: 142/86 Code: 8480-6 BMI: 35.2 Code: 00516-3 Heart Rate 1: 101 bpm Height: 5'7" SpO2: 97% Weight: 225 lbs 05/31/2018 Blood Pressure 1: 134/82 Code: 8480-6 BMI: 35.4 Code: 72896-9 Heart Rate 1: 91 bpm Height: 5'7" SpO2: 96% Weight: 226 lbs 05/20/2018 Blood Pressure 1: 160/100 Code: 8480-6 BMI: 35.2 Code: 11281-7 Heart Rate 1: 89 bpm Height: 5'7" SpO2: 98% Weight: 225 lbs 05/10/2018 Blood Pressure 1: 124/70 Code: 8480-6 BMI: 35.1 Code: 41050-8 Heart Rate 1: 93 bpm Height: 5'7" SpO2: 99% Weight: 224 lbs 01/15/2018 Blood Pressure 1: 142/92 Code: 8480-6 BMI: 36.3 Code: 16254-8 Heart Rate 1: 77 bpm Height: 5'7" SpO2: 98% Weight: 232 lbs 12/15/2017 Blood Pressure 1: 156/98 Code: 8480-6 BMI: 36.2 Code: 91687-0 Heart Rate 1: 87 bpm Height: 5'7" [...] eye 01/15/2018 None vision change Quality ac [place] 01/15/2018 None vision change Quality lo ss [...] vision 12/15/2017 None vision change Quality ac [place] 12/15/2017 None vision change Onset and Resolution sudden in onset 12/15/2017 None vision change Onset of Symptom 3.5 weeks ago 12/15/2017 None vision change Limitation on Activities severely limits vision 12/15/2017 None vision change Triggers n o known associated factors 12/15/2017 None Advance Directives No Advance Directive data Encounters Encounter Performer Loca tion Codes Date ([id number] EST. P ATIENT, LEVEL III Diagnosis: Testicular hypofunction[ICD10: E29.1] Diagnosis: Cervicalgia[ICD10: M54.2] Diagnosis: Other fatigue[ICD10: R53.83] Radha Gonzalez MD, [facility] CPT-4: 08726 12/29/2018 [id number] EST. PATIENT, LEVEL III Diagnosis: Pain in right arm[ICD10: M79.601] Sonia Gonzalez MD, [facility] CPT-4: 47641 12/20/2018 ([id number]) 15221 EST. 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 PATIENT, LEVEL III Diagnosis: Acute upper respiratory infection, unspecified[ICD10: J06.9] Diagnosis: Other allergic rhinitis[ICD10: J30.89] Sonia Gonzalez MD, [facility] CPT-4: 33714 09/24/2018 ([id number]) 50643 EST. 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 P ATIENT, LEVEL IV Diagnosis: Essential (primary) hypertension[ICD10: I10] Diagnosis: Cervicalgia[ICD10: M54.2] Radha Gonzalez MD, [facility] CPT-4: 28637 05/31/2018 ([id number]) 93102 EST. 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 12/29/2018 Appointment: Radha Gonzalez WPtel: [facility] [place] (15 min) Moderate 12/29/2018 Patient Education: Patient Medication Summary Completed 12/29/2018 Patient Education: .Cervicalgia Neck Pain Completed 12/29/2018 Patient Education: Patient Medication Summary Completed 12/21/2018 Care Plan: %Hba1C add to blood from 12/17 LOINC : 76760-4 Pending 12/21/2018 Visit Plan: Right arm pain - dayna deformity noted - will refer to ortho - The pt is to use prn antiinflammatories to manage acute pain. The patient is to call the office if the pain is worsening or does not improve. 12/20/2018 Appointment: Sonia Potter [facility]el[phone] (15 min) Moderate 12/20/2018 Patient Education: Patient [...] testosterone. 12/16/2018 Appointment: Radha Gonzalez WPtel: [phone] [phone] (15 min) Moderate 12/16/2018 Patient Education: Patient [...] needed. 11/01/2018 Appointment: Radha Gonzalez WPtel: [phone] [phone] (15 min) Moderate 11/01/2018 Patient Education: Patient [...] 09/24/2018 Appointment: Sonia Potter WPtel: [phone] [facility] (15 min) Moderate 09/24/2018 Patient Education: [...] home. Multiple symptoms - referral to [facility] - appt in September 30, 2018. 08/16/2018 Appointment: Radha Gonzalez WPtel: [phone] [phone] (15 min) Moderate 08/16/2018 Patient Education: Patient [...] home. Multiple symptoms - referral to [facility] - rashes, hypogonadism, optic neuritis - all points to possible autoimmune syndrome. Spinal stenosis - of thoracic region - pt to talk to Dr. Dunaway about referral to a different specialist for his mid- back. Hypogonadism - continue with testosterone. Flu shot given today in clinic. 08/02/2018 Appointment: Radha Gonzalez WPtel: [phone] [facility] [place] (15 min) Moderate 08/02/2018 Patient Education: Patient Medication Summary Completed 08/02/2018 Care Plan: Referral Order SNOMED-CT : 641380881 Pending 08/02/2018 Appointment: Injection 07/15/2018 Patient Education: [...] home. Cervical spine stenosis - referral to [facility] physical therapy. I have also recommended a Referral to Dr. Dunaway. I have called and talked to Dr. Dunaway - he looked at the pt's imaging and agrees that getting the pt in to be seen soon would be a preferred option. 05/31/2018 Appointment: Radha Gonzalez WPtel: [facility] [place] (15 min) Moderate 05/31/2018 Patient Education: Patient Medication Summary Completed 05/31/2018 Care Plan: Referral Order SNOMED-CT : 863051389 Pending 05/31/2018 Care Plan: Referral Order SNOMED-CT : 149640200 Pending 05/31/2018 Appointment: Injection 05/21/2018 Patient Education: Patient Medication Summary Completed 05/21/2018 Care Plan: Referral Order SNOMED-CT : 015929913 Pending 05/21/2018 Visit Plan: Cervical and thoracic s tenosis with spinal cord compression -refer for appt with Dr Marr -rx for hydrocodone for pain-start gabapentin at bedtime Soft tissue lesion-left chest-schedule CTfor further evaluation HTN-elevated today-hold adderall-monitor blood pressure 05/20/2018 Appointment: Hannah Simons WPtel: [phone] [place] (15 min) Moderate 05/20/2018 Patient Education: [...] this. 05/10/2018 Appointment: Sonia Potter WPtel: [phone] [facility] [place] (15 min) Moderate 05/10/2018 Patient Education: Patient Medication Summary Completed 05/10/2018 Visit Plan: Sleep apnea - rx for cp ap - actually autopap was recommended and pt given rx today. HTN - referral to dr. kapoor - pt needs stress testing. 01/15/2018 Appointment: Radha Gonzalez WPtel: [phone] [facility] [address] [place] [address] [place] (15 min) Moderate 01/15/2018 Patient Education: Patient Medication Summary Completed 01/15/2018 Care Plan: Referral Order SNOMED-CT : [id number] Pending 01/15/2018 Visit Plan: Well Adult - [...] month. 12/15/2017 Appointment: Radha Gonzalez WPtel: [phone] New Patient 12/15/2017 Patient Education: Patient Medication Summary Completed 12/15/2017 Care Plan: CHEST X-RAY 2VW FRONTAL&LATL LOINC : 29536-3 Pending 12/15/2017 Appointment: Radha Gonzalez WPtel: [phone] (15 min) Moderate 12/08/2017 Appointment: (S) New Patient 08/13/2015 Visit Plan: steri strip placed on t humb of right hand - antibiotic shot given to patient and rx for keflex 500mg qid x 10 days given to the patient to fill prior to his trip to [place] 08/03/2015 Patient Education: Patient Medication Summary Completed 08/03/2015 Referral: External, Ordering Provider 08/03 Referral info faxed to [place]. Patient informed to be expecting a call from them with appt info Appointment Requested Referral: External, Ordering Provider Referral Appointment Requested Referral: External, Ordering Provider I called today; they will call him to schedule. Completed Referral: Armani Dunaway Referral Appointment Requested Referral: Mayte Kapoor Referral Appointment Requested Referral: [facility] WPtel: [phone] Referral Appointment Requested Referral: External, Ordering [...] home. Multiple symptoms - referral to [facility] - rashes, hypogonadism, optic neuritis [...] home. Multiple symptoms - referral to [facility] - appt in September 30, [...] to fill prior to his trip to [place] will refill meds for 90 days Will [...] home. Cervical spine stenosis - [facility]. I have also recommended a Referral to Dr. Dunaway. I have called and talked to Dr. Dunaway - he looked at the pt's imaging and agrees that getting the pt in to be seen soon would be a preferred option.
--- OUTSIDE RECORDS SUMMARY | 2020-04-28 00:41 | XMS REPORT | CCD ---
Author Author Nilton Gonzalez Organization [facility] Address [address] [place] [address] Phone Care Team Providers Care Fur Sorter Name Role Phone PP Unavailable CCM Unavailable Summary Purpose Interface Exchange Insurance Providers Payer name Policy type / Coverage type Covered alliance party ID Effective Begin Date Effective End Date [employer] [id number] 2018 Unknown Family history Brother Diagnosis Age At Onset Alcoholism Unknown Father Diagnosis Age At Onset Hypercholesterolemia Unknown Social History Social History Element Codes Description Effective Dates Marital status Unknown S chanda 12/15/2017 Number of children Unknown 1 12/15/2017 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 [employer] 12/15/[address]: 168554858 Never smoker 12/15/[address]: 286990 Currently drinks alcohol <1 per week 12/15/2017 [...] ICD-10: I10 12/15/2017 Active Ischemic optic neuro seregy, 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 12/15/2017 [...] Fill Instructions Adderall 30 mg tablet RxNorm: 075404 2 Tablet(s) PO daily 01/24/2019 02/22/2019 Active ketoconazole 2 % top ical cream RxNorm: 144633 APPLY ONE GRAM TOPICA LLY TWICE A DAY 01/12/2019 01/26/2019 Ac tive tramadol 50 mg tablet RxNorm: 103258 1-2 Tablet(s) PO Q6 as needed 01/11/2019 No Stop Date Active hydrocodone 5 mg-fanny taminophen 325 mg tablet RxNorm: 749972 1-2 Tablet(s) PO Q6 a s needed 12/29/2018 No Stop Date Active atenolol 50 mg tablet RxNorm: 108678 1.5 Tablet(s) PO BID 12/29/2018 12/23/2019 Active Adderall 30 mg tablet RxNorm: 013286 2 Tablet(s) PO daily 12/29/2018 01/23/2019 Inactive hydrocodone 5 mg-fanny taminophen 325 mg tablet RxNorm: 061775 1-2 Tablet(s) PO Q6 a s needed 12/29/2018 12/28/2018 Inactive testosterone cypiona te 200 mg/mL intramuscular oil RxNorm: 4591163 1.25 Milliliter(s) IM 12/29/2018 12/29/2018 Inactive hydrocodone 5 mg-fanny taminophen 325 mg tablet RxNorm: 182220 1 Tablet(s) PO TID DE N 12/28/2018 12/28/2018 In active testosterone cypiona te 200 mg/mL intramuscular oil RxNorm: 7315541 1.25 Milliliter(s) IM 2 x month 12/22/2018 04/12/2019 Active gabapentin 300 mg ca psule RxNorm: 164347 1 Capsule(s) PO QID 12/16/2018 12/10/2019 Active testosterone cypiona te 200 mg/mL intramuscular oil RxNorm: 4383256 Milliliter(s) IM 12/16/2018 12/16/2018 In active Voltaren 1 % topical gel RxNorm: 313777 2 Gram(s) APPLY TOPIC ALLY four TIMES A DAY 12/16/2018 01/20/2019 In active trazodone 100 mg tablet RxNorm: 023772 TAKE ONE TABLET BY MOUTH EVERY NIGHT AT BEDTIME 12/07/2018 06/04/2019 Active hydrocodone 5 mg-fanny taminophen 325 mg tablet RxNorm: 478963 1 Tablet(s) PO TID DE N 11/29/2018 12/27/2018 In active Adderall 30 mg tablet RxNorm: 292687 2 Tablet(s) PO daily 11/29/2018 12/28/2018 Inactive clindamycin 1 %-arthur oyl peroxide 5 % topical gel RxNorm: 647769 TOP APPLY TO AFFECTED AREA(S) ON SERNA TWO TIMES A DAY 11/17/2018 No Stop Date Active testosterone cypiona te 200 mg/mL intramuscular oil RxNorm: 3809194 1 Milliliter(s) IM 2 x month 11/17/2018 12/21/2018 Inactive Zorvolex 35 mg capsule RxNorm: 6665345 1 Capsule(s) PO TID as needed for pain 11/15/2018 05/13/2019 Ac tive ketoconazole 2 % top ical cream RxNorm: 844097 APPLY ONE GRAM TOPICA LLY TWICE A DAY 11/15/2018 11/29/2018 In active testosterone cypiona te 200 mg/mL intramuscular oil RxNorm: 9434989 1 Milliliter(s) IM 11/15/2018 11/14/2018 Inactive hydrocodone 5 mg-fanny taminophen 325 mg tablet RxNorm: 633651 1 Tablet(s) PO TID DE N 11/02/2018 11/28/2018 In active Singulair 10 mg tablet RxNorm: 926211 1 Tablet(s) PO daily 11/01/2018 07/28/2019 Active testosterone cypiona te 200 mg/mL intramuscular oil RxNorm: 6417754 1 Milliliter(s) IM 2 x month 11/01/2018 11/16/2018 Inactive Adderall 30 mg tablet RxNorm: 633377 2 Tablet(s) PO daily 10/29/2018 11/27/2018 Inactive gabapentin 300 mg ca psule RxNorm: 656461 1 Capsule(s) PO BID m ay take TID 10/19/2018 12/15/2018 In active gabapentin 300 mg ca psule RxNorm: 138218 1 Capsule(s) PO BID m ay take TID 10/19/2018 10/18/2018 In active alprazolam 1 mg tablet RxNorm: 515215 1 Tablet(s) PO TID as needed 10/15/2018 12/13/2018 Inactive testosterone cypiona te 200 mg/mL intramuscular oil RxNorm: 890920 Milliliter(s) IM 09/28/2018 09/28/2018 In active pravastatin 40 mg ta blet RxNorm: 033206 TAKE ONE TABLET BY MO UTH EVERY NIGHT AT BEDTIME 09/27/2018 09/21/2019 Active Tamiflu 75 mg capsule RxNorm: 425243 1 Capsule(s) PO BID 09/24/2018 09/28/2018 Inactive Adderall 30 mg tablet RxNorm: 260580 2 Tablet(s) PO daily 09/20/2018 10/19/2018 Inactive hydrocodone 5 mg-fanny taminophen 325 mg tablet RxNorm: 019605 1 Tablet(s) PO TID DE N 09/20/2018 11/01/2018 In active testosterone cypiona te 200 mg/mL intramuscular oil RxNorm: 809942 Milliliter(s) IM 09/16/2018 09/16/2018 In active testosterone cypiona te 200 mg/mL intramuscular oil RxNorm: 620863 1 Milliliter(s) IM 09/02/2018 09/02/2018 Inactive testosterone cypiona te 200 mg/mL intramuscular oil RxNorm: 973546 Milliliter(s) IM 08/19/2018 08/19/2018 In active Adderall 30 mg tablet RxNorm: 994836 2 Tablet(s) PO daily 08/18/2018 09/16/2018 Inactive tramadol 50 mg tablet RxNorm: 734815 1-2 Tablet(s) PO Q6 as needed 08/18/2018 01/12/2019 In active Dexilant 60 mg capsu le, delayed release RxNorm: 582898 1 Capsule(s) PO BID 08/17/2018 08/11/2019 Ac tive ketoconazole 2 % top ical cream RxNorm: 185514 1 Gram(s) TOP BID 08/17/2018 08/26/2018 Inactive Zorvolex 35 mg capsule RxNorm: 5149947 1 Capsule(s) PO TID as needed for pain 08/17/2018 08/16/2018 In active atenolol 50 mg tablet RxNorm: 851716 1 Tablet(s) PO BID 08/17/2018 12/28/2018 Inactive Zorvolex 35 mg capsule RxNorm: 9333084 1 Capsule(s) PO TID as needed for pain 08/17/2018 11/14/2018 In active ketoconazole 2 % top ical cream RxNorm: 348769 1 Gram(s) TOP BID 08/02/2018 08/11/2018 Inactive hydrocortisone 2.5 % topical cream RxNorm: 788600 1 Application TOP BID 07/21/2018 No Stop Date Active Adderall 30 mg tablet RxNorm: 077237 2 Tablet(s) PO daily 07/20/2018 08/17/2018 Inactive testosterone cypiona te 200 mg/mL intramuscular oil RxNorm: 879606 Milliliter(s) IM 07/15/2018 07/15/2018 In active alprazolam 1 mg tablet RxNorm: 382235 1 Tablet(s) PO TID as needed 07/12/2018 09/07/2018 Inactive hydrocodone 5 mg-fanny taminophen 325 mg tablet RxNorm: 212122 1 Tablet(s) PO TID DE N 06/30/2018 09/19/2018 In active pravastatin 40 mg ta blet RxNorm: 811876 1 Tablet(s) PO QHS 06/18/2018 09/15/2018 Inactive Adderall 30 mg tablet RxNorm: 188689 2 Tablet(s) PO daily 06/18/2018 07/17/2018 Inactive testosterone cypiona te 200 mg/mL intramuscular oil RxNorm: 549989 Milliliter(s) IM 06/17/2018 06/17/2018 In active Voltaren 1 % topical gel RxNorm: 132726 APPLY TOPICALLY TWO T IMES A DAY 06/16/2018 07/21/2018 In active Vitamin D2 50,000 un it capsule RxNorm: 7452276 1 Capsule(s) PO QW 05/21/2018 No Stop Date Active Adderall 30 mg tablet RxNorm: 457806 2 Tablet(s) PO daily 05/21/2018 06/17/2018 Inactive testosterone cypiona te 200 mg/mL intramuscular oil RxNorm: 750366 Milliliter(s) IM 05/21/2018 05/21/2018 In active testosterone cypiona te 200 mg/mL intramuscular oil RxNorm: 1732189 1 Milliliter(s) IM monthly 05/20/2018 09/16/2018 Inactive testosterone cypiona te 200 mg/mL intramuscular oil RxNorm: 674073 1 Milliliter(s) IM monthly 05/20/2018 05/19/2018 Inactive hydrocodone 5 mg-fanny taminophen 325 mg tablet RxNorm: 421632 1 Tablet(s) PO TID DE N 05/20/2018 06/29/2018 In active Vitamin D2 50,000 un it capsule RxNorm: 2741489 1 Capsule(s) PO QW 05/18/2018 05/20/2018 Inactive triamcinolone aceton destin 0.025 % topical cream RxNorm: 1262999 1 Application TOP BI D 05/13/2018 No Stop Date Active Dexilant 60 mg capsu le, delayed release RxNorm: 195404 1 Capsule(s) PO BID 05/13/2018 08/16/2018 In active Zorvolex 35 mg capsule RxNorm: 5625069 1 Capsule(s) PO TID as needed for pain 05/12/2018 08/09/2018 In active Voltaren 1 % topical gel RxNorm: 927138 1 Application TOP BID 05/12/2018 06/15/2018 Inactive acyclovir 400 mg tablet RxNorm: 023618 1 Tablet(s) PO TID as needed take at ons et of symptoms of cold sores x 5 days 05/10/2018 No Stop Date Active paroxetine 20 mg tablet RxNorm: 2526634 2 Tablet(s) PO QHS 05/10/2018 10/31/2019 Active ProAir HFA 90 mcg/ac tuation aerosol inhaler RxNorm: 709491 1 Puff(s) INH QID as needed 05/10/2018 No Stop Date Active baclofen 20 mg tablet RxNorm: 174511 1 Tablet(s) PO TID as needed muscle spas ms 05/10/2018 06/08/2018 In active Singulair 10 mg tablet RxNorm: 534446 1 Tablet(s) PO daily 05/10/2018 08/07/2018 Inactive atenolol 50 mg tablet RxNorm: 141582 1 Tablet(s) PO BID 05/10/2018 08/07/2018 Inactive triamcinolone aceton destin 0.025 % topical cream RxNorm: 1864091 1 Application TOP BI D 05/10/2018 05/12/2018 In active tramadol 50 mg tablet RxNorm: 424584 1 Tablet(s) PO TID as needed 05/10/2018 05/19/2018 Inactive Dexilant 60 mg capsu le, delayed release RxNorm: 116437 1 Capsule(s) PO daily 05/10/2018 05/12/2018 In active alprazolam 1 mg tablet RxNorm: 276531 1 Tablet(s) PO TID as needed 05/10/2018 08/06/2018 Inactive trazodone 100 mg tablet RxNorm: 562206 1 Tablet(s) PO QHS 05/10/2018 11/05/2018 Inactive cyclobenzaprine 10 m g tablet RxNorm: 809427 1 Tablet(s) PO TID as needed muscle spasms 05/07/2018 07/12/2018 Inactive trazodone 100 mg tablet RxNorm: 966359 1 Tablet(s) PO QHS 05/07/2018 05/09/2018 Inactive Adderall 30 mg tablet RxNorm: 128188 2 Tablet(s) PO daily 04/19/2018 05/18/2018 Inactive alprazolam 1 mg tablet RxNorm: 446910 1 Tablet(s) PO BID 04/19/2018 05/09/2018 Inactive Adderall 30 mg tablet RxNorm: 631715 2 Tablet(s) PO daily 03/26/2018 04/18/2018 Inactive paroxetine 20 mg tablet RxNorm: 0129465 2 Tablet(s) PO QHS 03/15/2018 05/09/2018 Inactive Adderall 30 mg tablet RxNorm: 331139 2 Tablet(s) PO daily 02/25/2018 03/25/2018 Inactive cyclobenzaprine 10 m g tablet RxNorm: 200685 1 Tablet(s) PO TID as needed muscle spasms 02/22/2018 05/06/2018 Inactive tramadol 50 mg tablet RxNorm: 592654 1 Tablet(s) PO TID as needed 02/22/2018 03/07/2018 Inactive tramadol 50 mg tablet RxNorm: 008481 1 Tablet(s) PO TID as needed 02/22/2018 02/21/2018 Inactive trazodone 100 mg tablet RxNorm: 451653 1 Tablet(s) PO QHS 02/03/2018 05/03/2018 Inactive trazodone 100 mg tablet RxNorm: 297332 1 Tablet(s) PO QHS 02/03/2018 02/02/2018 Inactive Adderall 30 mg tablet RxNorm: 386821 2 Tablet(s) PO daily 01/27/2018 02/18/2018 Inactive acyclovir 400 mg tablet RxNorm: 194574 1 Tablet(s) PO TID as needed take at ons et of symptoms of cold sores x 5 days 01/15/2018 05/09/2018 Inactive Bactrim DS 800 mg-16 0 mg tablet RxNorm: 326958 1 Tablet(s) PO BID 01/11/2018 01/17/2018 Inactive Bactrim DS 800 mg-16 0 mg tablet RxNorm: 225640 1 Tablet(s) PO BID 01/11/2018 01/10/2018 Inactive Dexilant 60 mg capsu le, delayed release RxNorm: 206580 1 Capsule(s) PO daily 12/23/2017 05/09/2018 In active Dexilant 60 mg capsu le, delayed release RxNorm: 126426 1 Capsule(s) PO daily 12/23/2017 12/22/2017 In active atenolol 50 mg tablet RxNorm: 096512 1 Tablet(s) PO BID 12/15/2017 05/09/2018 Inactive alprazolam 1 mg tablet RxNorm: 413559 1-1.5 Tablet(s) PO daily 12/15/2017 04/18/2018 Inactive ceftriaxone 500 mg s olution for injection RxNorm: 3231440 Inj 08/03/2015 08/03/2015 Inactive paroxetine 20 mg tablet RxNorm: 2789985 2 Tablet(s) PO QHS 08/01/2015 10/29/2015 Inactive pravastatin 40 mg ta blet RxNorm: 610357 1/2 Tablet(s) PO QHS 08/01/2015 12/14/2017 Inactive Trazadone 100mg 100 mg RxNorm: 1 PO daily 08/01/2015 11/27/2015 Inactive Trazadone 100mg 100 mg RxNorm: 1 PO daily 08/01/2015 05/04/2018 Inactive atenolol 50 mg tablet RxNorm: 123351 1 Tablet(s) PO daily 08/01/2015 10/29/2015 Inactive ibuprofen 800 mg tablet RxNorm: 444430 1 Tablet(s) PO BID -TID No Start Date Active Fish Oil 360 mg-1,20 0 mg capsule RxNorm: 480573 1 Capsule(s) PO BID No Start Date Active Zyrtec 10 mg tablet RxNorm: 7133276 1 Tablet(s) PO daily No Start Date Active pravastatin 40 mg ta blet RxNorm: 572271 1/2 Tablet(s) PO QHS No Start Date 07/31/2015 Inactive Benadryl Allergy 25 mg tablet RxNorm: 6090826 1 Tablet(s) PO daily No Start Date 07/19/2018 Inactive Adderall 30 mg tablet RxNorm: 859325 2 Tablet(s) PO daily No Start Date 01/26/2018 Inactive Aspirin Low Dose 81 mg tablet,delayed release RxNorm: 098589 1 Tablet(s) PO BID No Start Date 07/19/2018 Inactive Singulair 10 mg tablet RxNorm: 307805 1 Tablet(s) PO daily No Start Date 05/09/2018 Inactive cyclobenzaprine 10 m g tablet RxNorm: 483882 1 Tablet(s) PO TID as needed muscle spasms No Start Date 02/21/2018 Inactive Trazadone 100mg 100 mg RxNorm: 1 PO daily No Start Date 07/31/2015 Inactive clindamycin 1 %-arthur oyl peroxide 5 % topical gel RxNorm: 355153 TOP APPLY TO AFFECTED AREA(S) ON SERNA TWO TIMES A DAY No Start Date 11/16/2018 Inactive hydrocortisone 2.5 % topical cream RxNorm: 704326 1 Application TOP BID No Start Date 07/20/2018 Inactive alprazolam 1 mg tablet RxNorm: 328537 2 Tablet(s) PO daily No Start Date 12/14/2017 Inactive tramadol 50 mg tablet RxNorm: 162396 1-2 Tablet(s) PO Q6 as needed No Start Date 08/17/2018 Inactive Vitamin D2 50,000 un it capsule RxNorm: 9549376 1 Capsule(s) PO QW No Start Date 05/17/2018 Inactive pantoprazole 40 mg t ablet,delayed release RxNorm: 292155 1 Tablet(s) PO BID No Start Date 12/22/2017 Inactive atenolol 50 mg tablet RxNorm: 821055 1 Tablet(s) PO daily No Start Date 07/31/2015 Inactive paroxetine 20 mg tablet RxNorm: 118333 2 Tablet(s) PO QHS No Start Date 07/31/2015 Inactive Medication Administered Medication Codes Instruc tions Start Date Status testosterone cypionate 200 mg/mL intramuscular oil RxNorm: 6825698 1.25Milliliter 12/29/2018 No longer Active testosterone cypionate 200 mg/mL intramuscular oil RxNorm: 8791505 Milliliter 12/16/2018 No longer Active testosterone cypionate 200 mg/mL intramuscular oil RxNorm: 4840595 1Milliliter 11/15/2018 No longer Active testosterone cypionate 200 mg/mL intramuscular oil RxNorm: 916148 Milliliter 09/28/2018 No longer Active testosterone cypionate 200 mg/mL intramuscular oil RxNorm: 173542 Milliliter 09/16/2018 No longer Active testosterone cypionate 200 mg/mL intramuscular oil RxNorm: 474294 1Milliliter 09/02/2018 No longer Active testosterone cypionate 200 mg/mL intramuscular oil RxNorm: 985153 Milliliter 08/19/2018 No longer Active testosterone cypionate 200 mg/mL intramuscular oil RxNorm: 695700 Milliliter 07/15/2018 No longer Active testosterone cypionate 200 mg/mL intramuscular oil RxNorm: 473473 Milliliter 06/17/2018 No longer Active testosterone cypionate 200 mg/mL intramuscular oil RxNorm: 906644 Milliliter 05/21/2018 No longer Active ceftriaxone 500 mg solution for injection RxNorm: 6286633 08/03/2015 No longer A ctive Immunizations Vaccine [...] Code Result Date Comp. Metabolic Panel (14) 92830 GLUCOSE 117 mg/dL 12/17/2018 Comp. Metabolic Panel (14) 80452 BUN 17 mg/dL 12/17/2018 Comp. Metabolic Panel (14) 84918 CREATININE 0.99 mg/dL 12/17/2018 Comp. Metabolic Panel (14) 36467 SODIUM 137 mmol/L 12/17/2018 Comp. Metabolic Panel (14) 55903 POTASSIUM 4.6 mmol/L 12/17/2018 Comp. Metabolic Panel (14) 63417 CHLORIDE 102 mmol/L 12/17/2018 Comp. Metabolic Panel (14) 33346 CARBON DIOXIDE 21 mmol/L 12/17/2018 Comp. Metabolic Panel (14) 09202 CALCIUM 9.4 mg/dL 12/17/2018 Comp. Metabolic Panel (14) 55361 TOTAL PROTEIN 7.5 g/dL 12/17/2018 Comp. Metabolic Panel (14) 14284 ALBUMIN 5.1 g/dL 12/17/2018 Comp. Metabolic Panel (14) 97805 ALKALINE PHOSPHATASE 79 U/L 12/17/2018 Comp. Metabolic Panel (14) 73315 TOTAL BILIRUBIN 0.5 mg/dL 12/17/2018 Comp. Metabolic Panel (14) 56434 SGOT (AST) 34 U/L 12/17/2018 Comp. Metabolic Panel (14) 22916 SGPT (ALT) 40 U/L 12/17/2018 Comp. Metabolic Panel (14) 79058 eGFR (mL/min/1.73m2) 115 12/17/2018 Comp. Metabolic Panel (14) 60683 INTERPRETATION 12/17/2018 Testosterone Serum 220500 TESTOSTERONE 96.8 ng/dL 12/17/2018 Cbc With Differential/Platelet 97679 WBC 5.61 thou/uL 9 Cbc With Differential/Platelet 97012 RBC 5.53 mil/uL 12/17/2018 Cbc With Differential/Platelet 10442 HEMOGLOBIN 15.4 g/dL 12/17/2018 Cbc With Differential/Platelet 44298 HEMATOCRIT 48.1 % 12/17/2018 Cbc With Differential/Platelet 82157 MCV 87.0 fL 12/17/2018 Cbc With Differential/Platelet 52593 MCH 27.8 pg 12/17/2018 Cbc With Differential/Platelet 70078 MCHC 32.0 g/dL 12/17/2018 Cbc With Differential/Platelet 19541 RDW-CV 13.9 % 12/17/2018 Cbc With Differential/Platelet 76548 PLATELET COUNT 294 thou/uL 12/17/2018 Cbc With Differential/Platelet 67401 NEUTROPHIL % 71.2 % 12/17/2018 Cbc With Differential/Platelet 19704 LYMPHOCYTE % 22.2 % 12/17/2018 Cbc With Differential/Platelet 55554 MONOCYTE % 5.4 % 12/17/2018 Cbc With Differential/Platelet 11652 EOS % 0.9 % 12/17/2018 Cbc With Differential/Platelet 61745 BASO % 0.4 % 12/17/2018 Cbc With Differential/Platelet 32419 NEUTROPHIL ABS # 3.99 thou/uL 12/17/2018 Cbc With Differential/Platelet 05639 LYMPH ABS # 1.25 thou/uL 12/17/2018 Cbc With Differential/Platelet 40313 MONOCYTE ABS # 0.30 thou/uL 12/17/2018 Cbc With Differential/Platelet 09997 EOS ABS # 0.05 thou/uL 9 Cbc With Differential/Platelet 91118 BASO ABS # 0.02 thou/uL 12/17/2018 Lipid Panel 48113 CHOLES TEROL 227 mg/dL 12/17/2018 Lipid Panel 58804 TRIGLY CERIDES 229 mg/dL 12/17/2018 Lipid Panel 94697 HDL 41 mg/dL 12/17/2018 Lipid Panel 36969 CHOLES TEROL/HDL 5.54 12/17/2018 Lipid Panel 56024 LDL (C ALCULATED) 140 mg/dL 12/17/2018 Lipid Panel 57321 LDL/HDL 3.41 12/17/2018 Lipid Panel 87118 INTERP RETATION 12/17/2018 Tsh 008101 TSH 1.190 uIU/mL 12/17/2018 Testosterone Serum 130911 TESTOSTERONE 44.1 ng/dL 08/18/2018 Hemoglobin 926458 WBC 7.62 thou/uL 08/17/2018 Hemoglobin 239564 RBC 5.23 mil/uL 08/17/2018 Hemoglobin 214959 HEMOGL OBIN 15.0 g/dL 08/17/2018 Hemoglobin 265506 HEMATO CRIT 45.0 % 08/17/2018 Hemoglobin 797299 MCV 86.0 fL 08/17/2018 Hemoglobin 735984 MCH 28.7 pg 08/17/2018 Hemoglobin 810645 MCHC 33.3 g/dL 08/17/2018 Hemoglobin 749689 RDW-CV 12.9 % 08/17/2018 Hemoglobin 683601 PLATEL ET COUNT 313 thou/uL 08/17/2018 Hematocrit 484933 WBC 7.62 thou/uL 08/17/2018 Hematocrit 129373 RBC 5.23 mil/uL 08/17/2018 Hematocrit 406659 HEMOGL OBIN 15.0 g/dL 08/17/2018 Hematocrit 170651 HEMATO CRIT 45.0 % 08/17/2018 Hematocrit 984153 MCV 86.0 fL 08/17/2018 Hematocrit 769038 MCH 28.7 pg 08/17/2018 Hematocrit 251708 MCHC 33.3 g/dL 08/17/2018 Hematocrit RDW-CV 12.9 % 08/17/2018 Hematocrit PLATEL ET COUNT 313 thou/uL 08/17/2018 Culture Mrsa 948100 MRSA CULTURE SEE NOTES 06/21/2018 Comp. Metabolic Panel (14) 79005 GLUCOSE 101 mg/dL 06/18/2018 Comp. Metabolic Panel (14) 74942 BUN 18 mg/dL 06/18/2018 Comp. Metabolic Panel (14) 45709 CREATININE 0.99 mg/dL 06/18/2018 Comp. Metabolic Panel (14) 95550 SODIUM 141 mmol/L 06/18/2018 Comp. Metabolic Panel (14) 67458 POTASSIUM 4.3 mmol/L 06/18/2018 Comp. Metabolic Panel (14) 18523 CHLORIDE 103 mmol/L 06/18/2018 Comp. Metabolic Panel (14) 32311 CARBON DIOXIDE 23 mmol/L 06/18/2018 Comp. Metabolic Panel (14) 00030 CALCIUM 9.8 mg/dL 06/18/2018 Comp. Metabolic Panel (14) 89725 TOTAL PROTEIN 7.1 g/dL 06/18/2018 Comp. Metabolic Panel (14) 36167 ALBUMIN 5.2 g/dL 06/18/2018 Comp. Metabolic Panel (14) 10654 ALKALINE PHOSPHATASE 65 U/L 06/18/2018 Comp. Metabolic Panel (14) 87026 TOTAL BILIRUBIN 0.6 mg/dL 06/18/2018 Comp. Metabolic Panel (14) 11788 SGOT (AST) 21 U/L 06/18/2018 Comp. Metabolic Panel (14) 28507 SGPT (ALT) 24 U/L 06/18/2018 Comp. Metabolic Panel (14) 18407 eGFR (mL/min/1.73m2) 115 06/18/2018 Comp. Metabolic Panel (14) 97470 INTERPRETATION 06/18/2018 Cbc With Differential/Platelet 35692 WBC 4.55 thou/uL 8 Cbc With Differential/Platelet 97922 RBC 5.13 mil/uL 06/18/2018 Cbc With Differential/Platelet 12304 HEMOGLOBIN 14.4 g/dL 06/18/2018 Cbc With Differential/Platelet 96573 HEMATOCRIT 44.1 % 06/18/2018 Cbc With Differential/Platelet 93264 MCV 85.9 fL 06/18/2018 Cbc With Differential/Platelet 21712 MCH 28.1 pg 06/18/2018 Cbc With Differential/Platelet 02082 MCHC 32.7 g/dL 06/18/2018 Cbc With Differential/Platelet 23319 RDW-CV 13.4 % 06/18/2018 Cbc With Differential/Platelet 46232 PLATELET COUNT 287 thou/uL 06/18/2018 Cbc With Differential/Platelet 48870 NEUTROPHIL % 53.9 % 06/18/2018 Cbc With Differential/Platelet 97597 LYMPHOCYTE % 36.1 % 06/18/2018 Cbc With Differential/Platelet 15603 MONOCYTE % 7.4 % 06/18/2018 Cbc With Differential/Platelet 80177 EOS % 1.9 % 06/18/2018 Cbc With Differential/Platelet 60255 BASO % 0.8 % 06/18/2018 Cbc With Differential/Platelet 52540 NEUTROPHIL ABS # 2.45 thou/uL 06/18/2018 Cbc With Differential/Platelet 87901 LYMPH ABS # 1.64 thou/uL 06/18/2018 Cbc With Differential/Platelet 55594 MONOCYTE ABS # 0.34 thou/uL 06/18/2018 Cbc With Differential/Platelet 58307 EOS ABS # 0.09 thou/uL 8 Cbc With Differential/Platelet 01259 BASO ABS # 0.04 thou/uL 06/18/2018 Review [...] affect 08/03/2015 None Full Exam - General 1995 Integument inspection of skin Location: right hand 08/03/2015 thumb - laceration at the edge of the thumbnail. - skin reapproximated, steri strip placed and tube gauze used to cover the thumb Procedures Procedure Codes Date THER/PROPH/DIAG INJ SC/IM CPT-4: 28591 12/29/2018 THER/PROPH/DIAG INJ SC/IM CPT-4: 44127 12/16/2018 THER/PROPH/DIAG INJ SC/IM CPT-4: 30752 11/15/2018 THER/PROPH/DIAG INJ SC/IM CPT-4: 37074 09/28/2018 THER/PROPH/DIAG INJ SC/IM CPT-4: 87317 09/16/2018 THER/PROPH/DIAG INJ SC/IM CPT-4: 58310 09/02/2018 THER/PROPH/DIAG INJ SC/IM CPT-4: 73442 08/19/2018 IMMUNIZATION ADMIN CPT- 4: 34025 08/02/2018 FLU VAC NO PRSV 4 VA L 3 YRS+ CPT-4: 36294 08/02/2018 THER/PROPH/DIAG INJ SC/IM CPT-4: 67739 07/15/2018 THER/PROPH/DIAG INJ SC/IM CPT-4: 69705 06/17/2018 THER/PROPH/DIAG INJ SC/IM CPT-4: 25487 05/21/2018 THER/PROPH/DIAG INJ SC/IM CPT-4: 51471 08/03/2015 ROCEPHIN, PER 250 MG CPT-4: J0696 08/03/2015 Vital Signs Date Vital 12/29/2018 Blood Pressure 1: 144/90 Code: 8480-6 BMI: 34.8 Code: 99486-0 Heart Rate 1: 91 bpm Height: 5'7" SpO2: 98% Weight: 222 lbs 12/20/2018 Blood Pressure 1: 124/76 Code: 8480-6 BMI: 35.4 Code: 54619-6 Heart Rate 1: 79 bpm Height: 5'7" SpO2: 99% Weight: 226 lbs 12/16/2018 Blood Pressure 1: 160/90 Code: 8480-6 BMI: 35.4 Code: 77033-1 Heart Rate 1: 90 bpm Height: 5'7" SpO2: 95% Weight: 226 lbs 11/01/2018 Blood Pressure 1: 146/82 Code: 8480-6 BMI: 36.0 Code: 02867-6 Heart Rate 1: 87 bpm Height: 5'7" SpO2: 98% Weight: 230 lbs 09/24/2018 Blood Pressure 1: 140/82 Code: 8480-6 BMI: 36.0 Code: 85371-4 Heart Rate 1: 86 bpm Height: 5'7" SpO2: 98% Temperature: 37.1 (C ) / 98.7 (F) Weight: 230 lbs 08/16/2018 Blood Pressure 1: 148/82 Code: 8480-6 Blood Pressure 2: 157/92 Code: 8480-6 BMI: 35.9 Code: 67087-5 Heart Rate 1: 72 bpm Height: 5'7" SpO2: 96% Weight: 229 lbs 08/02/2018 Blood Pressure 1: 142/86 Code: 8480-6 BMI: 35.2 Code: 87402-8 Heart Rate 1: 101 bpm Height: 5'7" SpO2: 97% Weight: 225 lbs 05/31/2018 Blood Pressure 1: 134/82 Code: 8480-6 BMI: 35.4 Code: 62877-8 Heart Rate 1: 91 bpm Height: 5'7" SpO2: 96% Weight: 226 lbs 05/20/2018 Blood Pressure 1: 160/100 Code: 8480-6 BMI: 35.2 Code: 38013-5 Heart Rate 1: 89 bpm Height: 5'7" SpO2: 98% Weight: 225 lbs 05/10/2018 Blood Pressure 1: 124/70 Code: 8480-6 BMI: 35.1 Code: 54340-0 Heart Rate 1: 93 bpm Height: 5'7" SpO2: 99% Weight: 224 lbs 01/15/2018 Blood Pressure 1: 142/92 Code: 8480-6 BMI: 36.3 Code: 47858-9 Heart Rate 1: 77 bpm Height: 5'7" SpO2: 98% Weight: 232 lbs 12/15/2017 Blood Pressure 1: 156/98 Code: 8480-6 BMI: 36.2 Code: 19456-1 Heart Rate 1: 87 bpm Height: 5'7" [...] eye 01/15/2018 None vision change Quality ac [place] 01/15/2018 None vision change Quality lo ss [...] vision 12/15/2017 None vision change Quality ac [place] 12/15/2017 None vision change Onset and Resolution sudden in onset 12/15/2017 None vision change Onset of Symptom 3.5 weeks ago 12/15/2017 None vision change Limitation on Activities severely limits vision 12/15/2017 None vision change Triggers n o known associated factors 12/15/2017 None Advance Directives No Advance Directive data Encounters Encounter Performer Loca tion Codes Date ([id number]) [id number] EST. P ATIENT, LEVEL III Diagnosis: Testicular hypofunction[ICD10: E29.1] Diagnosis: Cervicalgia[ICD10: M54.2] Diagnosis: Other fatigue[ICD10: R53.83] Radha Gonzalez MD, [facility] CPT-4: 46170 12/29/2018 [id number] EST. PATIENT, LEVEL III Diagnosis: Pain in right arm[ICD10: M79.601] Sonia Gonzalez MD, [facility] CPT-4: 01314 12/20/2018 ([id number]) 05693 EST. 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 PATIENT, LEVEL III Diagnosis: Acute upper respiratory infection, unspecified[ICD10: J06.9] Diagnosis: Other allergic rhinitis[ICD10: J30.89] oSnia Gonzalez MD, [facility] CPT-4: 20775 09/24/2018 ([id number]) 95597 EST. 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 P ATIENT, LEVEL IV Diagnosis: Essential (primary) hypertension[ICD10: I10] Diagnosis: Cervicalgia[ICD10: M54.2] Radha Gonzalez MD, [facility] CPT-4: 40100 05/31/2018 ([id number]) 66465 EST. 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 12/29/2018 Appointment: Radha Gonzalez WPtel: [facility]9 [facility] (15 min) Moderate 12/29/2018 Patient Education: Patient Medication Summary Completed 12/29/2018 Patient Education: .Cervicalgia Neck Pain Completed 12/29/2018 Patient Education: Patient Medication Summary Completed 12/21/2018 Care Plan: %Hba1C add to blood from 12/17 LOINC : 58723-1 Pending 12/21/2018 Visit Plan: Right arm pain - dayna deformity noted - will refer to ortho - The pt is to use prn antiinflammatories to manage acute pain. The patient is to call the office if the pain is worsening or does not improve. 12/20/2018 [facility]ment[phone] [facility] (15 min) Moderate 12/20/2018 Patient Education: [...] testosterone. 12/16/2018 Appointment: Radha Gonzalez WPtel: [phone] [facility] (15 min) Moderate 12/16/2018 Patient Education: [...] needed. 11/01/2018 Appointment: Radha Gonzalez WPtel: [phone] [facility] (15 min) Moderate 11/01/2018 Patient Education: Patient [...] spray. 09/24/2018 App[facility]ment: [phone] [facility] [place] (15 min) Moderate 09/24/2018 Patient Education: [...] at home. Multiple symptoms - referral to [facility] - appt in September 30, 2018. 08/16/2018 [facility]ment: [phone] [facility] (15 min) Moderate 08/16/2018 Patient Education: [...] at home. Multiple symptoms - referral to [facility] - rashes, hypogonadism, optic neuritis - all points to possible autoimmune syndrome. Spinal stenosis - of thoracic region - pt to talk to Dr. Dunaway about referral to a different specialist for his mid- back. Hypogonadism - continue with testosterone. Flu shot given today in clinic. 08/02/2018 Appointment: [facility] Gonzalez [facility]el[phone] [facility] [place] (15 min) Moderate 08/02/2018 Patient Education: Patient Medication Summary Completed 08/02/2018 Care Plan: Referral Order SNOMED-CT : 547592619 Pending 08/02/2018 Appointment: Injection 07/15/2018 Patient Education: [...] - referral to [facility] therapy. I have also recommended a Referral to Dr. Dunaway. I have called and talked to Dr. Dunaway - he looked at the pt's imaging and agrees that getting the pt in to be seen soon would be a preferred option. 05/31/2018 Appointment: Radha Gonzalez WPtel: [facility]5 [facility] [place] (15 min) Moderate 05/31/2018 Patient Education: Patient Medication Summary Completed 05/31/2018 Care Plan: Referral Order SNOMED-CT : 270521426 Pending 05/31/2018 Care Plan: Referral Order SNOMED-CT : 481422729 Pending 05/31/2018 Appointment: Injection 05/21/2018 Patient Education: Patient Medication Summary Completed 05/21/2018 Care Plan: Referral Order SNOMED-CT : 447271808 Pending 05/21/2018 Visit Plan: Cervical and thoracic s tenosis with spinal cord compression -refer for appt with Dr Marr -rx for hydrocodone for pain-start gabapentin at bedtime Soft tissue lesion-left chest-schedule CTfor further evaluation HTN-elevated today-hold adderall-monitor blood pressure 05/20/2018 Appointment: [facility] [phone] [facility] [place] (15 min) Moderate 05/20/2018 Patient [...] this. 05/10/2018 Appointment: Sonia Potter WPtel: [facility]1 [facility] (15 min) Moderate 05/10/2018 Patient Education: Patient Medication Summary Completed 05/10/2018 Visit Plan: Sleep apnea - rx for cp ap - actually autopap was recommended and pt given rx today. HTN - referral to dr. kapoor - pt needs stress testing. 01/15/2018 Appointment: Radha Gonzalez WPtel: [phone] [facility] (15 min) Moderate 01/15/2018 Patient Education: Patient Medication Summary Completed 01/15/2018 Care Plan: Referral Order SNOMED-CT : 144961501 Pending 01/15/2018 Visit Plan: Well Adult - [...] month. 12/15/2017 Appointment: Radha Gonzalez WPtel: [facility]4 [facility] New Patient 12/15/2017 Patient Education: Patient Medication Summary Completed 12/15/2017 Care Plan: CHEST X-RAY 2VW FRONTAL&LATL LOINC : 02583-2 Pending 12/15/2017 Appointment: Radha Gonzalez WPtel: [phone] [facility]66[facility] (15 min) Moderate 12/08/2017 Appointment: [...] Ordering Provider 08/03 Referral info faxed to [place]. Patient informed to be expecting a call from them with appt info Appointment Requested Referral: External, Ordering Provider Referral Appointment Requested Referral: External, Ordering Provider I called today; they will call him to schedule. Completed Referral: Armani Dunaway Referral Appointment Requested Referral: Mayte Kapoor Referral Appointment Requested Referral: [facility] WPtel: [phone] [facility] Referral Appointment Requested Referral: External, Ordering Provider [...] at home. Multiple symptoms - referral to [facility] - rashes, hypogonadism, optic neuritis - all [...] at home. Multiple symptoms - referral to [facility] - appt in September 30, 2018. . [...] prior to his trip to [place] will refill meds for 90 days Will [...] home. Cervical spine stenosis - [facility]. I have also recommended a Referral to Dr. Dunaway. I have called and talked to Dr. Dunaway - he looked at the pt's imaging and agrees that getting the pt in to be seen soon would be a preferred option.
--- OUTSIDE RECORDS SUMMARY | 2020-04-28 00:42 | XMS REPORT | CCD ---
Author Author Nilton Gonzalez Organization [facility] Address [address] [place] [address] Phone Care Team Providers Care Energy Director Name Role Phone PP Unavailable CCM Unavailable Summary Purpose Interface Exchange Insurance Providers Payer name Policy type / Coverage type Covered democrat ID Effective Begin Date Effective End Date [employer] [id number] 2018 Unknown Family history Brother Diagnosis Age At Onset Alcoholism Unknown Father Diagnosis Age At Onset Hypercholesterolemia Unknown Social History Social History Element Codes Description Effective Dates Marital status Unknown S chanda 12/15/2017 Number of children Unknown 1 12/15/2017 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[employer] 12/15/[address]: 199376043 Never smoker 12/15/[address]: 271067 Currently drinks alcohol <1 per week 12/15/2017 [...] Date Stop Date Sta tus Fill Instructions ketoconazole 2 % top ical cream RxNorm: 483215 APPLY ONE GRAM TOPICA LLY TWICE A DAY 01/12/2019 01/26/2019 Ac tive tramadol 50 mg tablet RxNorm: 913399 1-2 Tablet(s) PO Q6 as needed 01/11/2019 No Stop Date Active hydrocodone 5 mg-fanny taminophen 325 mg tablet RxNorm: 907253 1-2 Tablet(s) PO Q6 a s needed 12/29/2018 No Stop Date Active Adderall 30 mg tablet RxNorm: 615607 2 Tablet(s) PO daily 12/29/2018 01/27/2019 Active atenolol 50 mg tablet RxNorm: 184094 1.5 Tablet(s) PO BID 12/29/2018 12/23/2019 Active hydrocodone 5 mg-fanny taminophen 325 mg tablet RxNorm: 990867 1-2 Tablet(s) PO Q6 a s needed 12/29/2018 12/28/2018 Inactive testosterone cypiona te 200 mg/mL intramuscular oil RxNorm: 9077221 1.25 Milliliter(s) IM 12/29/2018 12/29/2018 Inactive hydrocodone 5 mg-fanny taminophen 325 mg tablet RxNorm: 304998 1 Tablet(s) PO TID NV N 12/28/2018 12/28/2018 In active testosterone cypiona te 200 mg/mL intramuscular oil RxNorm: 4842801 1.25 Milliliter(s) IM 2 x month 12/22/2018 04/12/2019 Active gabapentin 300 mg ca psule RxNorm: 149276 1 Capsule(s) PO QID 12/16/2018 12/10/2019 Active Voltaren 1 % topical gel RxNorm: 890149 2 Gram(s) APPLY TOPIC ALLY four TIMES A DAY 12/16/2018 01/20/2019 Ac tive testosterone cypiona te 200 mg/mL intramuscular oil RxNorm: 8692986 Milliliter(s) IM 12/16/2018 12/16/2018 In active trazodone 100 mg tablet RxNorm: 556834 TAKE ONE TABLET BY MOUTH EVERY NIGHT AT BEDTIME 12/07/2018 06/04/2019 Active hydrocodone 5 mg-fanny taminophen 325 mg tablet RxNorm: 390902 1 Tablet(s) PO TID NV N 11/29/2018 12/27/2018 In active Adderall 30 mg tablet RxNorm: 804085 2 Tablet(s) PO daily 11/29/2018 12/28/2018 Inactive clindamycin 1 %-arthur oyl peroxide 5 % topical gel RxNorm: 675918 TOP APPLY TO AFFECTED AREA(S) ON SERNA TWO TIMES A DAY 11/17/2018 No Stop Date Active testosterone cypiona te 200 mg/mL intramuscular oil RxNorm: 4903807 1 Milliliter(s) IM 2 x month 11/17/2018 12/21/2018 Inactive Zorvolex 35 mg capsule RxNorm: 4181300 1 Capsule(s) PO TID as needed for pain 11/15/2018 05/13/2019 Ac tive ketoconazole 2 % top ical cream RxNorm: 501360 APPLY ONE GRAM TOPICA LLY TWICE A DAY 11/15/2018 11/29/2018 In active testosterone cypiona te 200 mg/mL intramuscular oil RxNorm: 3192087 1 Milliliter(s) IM 11/15/2018 11/14/2018 Inactive hydrocodone 5 mg-fanny taminophen 325 mg tablet RxNorm: 419401 1 Tablet(s) PO TID NV N 11/02/2018 11/28/2018 In active Singulair 10 mg tablet RxNorm: 973928 1 Tablet(s) PO daily 11/01/2018 07/28/2019 Active testosterone cypiona te 200 mg/mL intramuscular oil RxNorm: 3515134 1 Milliliter(s) IM 2 x month 11/01/2018 11/16/2018 Inactive Adderall 30 mg tablet RxNorm: 060607 2 Tablet(s) PO daily 10/29/2018 11/27/2018 Inactive gabapentin 300 mg ca psule RxNorm: 113094 1 Capsule(s) PO BID m ay take TID 10/19/2018 12/15/2018 In active gabapentin 300 mg ca psule RxNorm: 990201 1 Capsule(s) PO BID m ay take TID 10/19/2018 10/18/2018 In active alprazolam 1 mg tablet RxNorm: 629511 1 Tablet(s) PO TID as needed 10/15/2018 12/13/2018 Inactive testosterone cypiona te 200 mg/mL intramuscular oil RxNorm: 872278 Milliliter(s) IM 09/28/2018 09/28/2018 In active pravastatin 40 mg ta blet RxNorm: 446396 TAKE ONE TABLET BY MO UTH EVERY NIGHT AT BEDTIME 09/27/2018 09/21/2019 Active Tamiflu 75 mg capsule RxNorm: 395315 1 Capsule(s) PO BID 09/24/2018 09/28/2018 Inactive Adderall 30 mg tablet RxNorm: 270348 2 Tablet(s) PO daily 09/20/2018 10/19/2018 Inactive hydrocodone 5 mg-fanny taminophen 325 mg tablet RxNorm: 020101 1 Tablet(s) PO TID NV N 09/20/2018 11/01/2018 In active testosterone cypiona te 200 mg/mL intramuscular oil RxNorm: 724741 Milliliter(s) IM 09/16/2018 09/16/2018 In active testosterone cypiona te 200 mg/mL intramuscular oil RxNorm: 430592 1 Milliliter(s) IM 09/02/2018 09/02/2018 Inactive testosterone cypiona te 200 mg/mL intramuscular oil RxNorm: 033614 Milliliter(s) IM 08/19/2018 08/19/2018 In active tramadol 50 mg tablet RxNorm: 305298 1-2 Tablet(s) PO Q6 as needed 08/18/2018 No Stop Date Active Adderall 30 mg tablet RxNorm: 358559 2 Tablet(s) PO daily 08/18/2018 09/16/2018 Inactive Dexilant 60 mg capsu le, delayed release RxNorm: 848780 1 Capsule(s) PO BID 08/17/2018 08/11/2019 Ac tive ketoconazole 2 % top ical cream RxNorm: 184152 1 Gram(s) TOP BID 08/17/2018 08/26/2018 Inactive Zorvolex 35 mg capsule RxNorm: 1305947 1 Capsule(s) PO TID as needed for pain 08/17/2018 08/16/2018 In active atenolol 50 mg tablet RxNorm: 642460 1 Tablet(s) PO BID 08/17/2018 12/28/2018 Inactive Zorvolex 35 mg capsule RxNorm: 4012791 1 Capsule(s) PO TID as needed for pain 08/17/2018 11/14/2018 In active ketoconazole 2 % top ical cream RxNorm: 329913 1 Gram(s) TOP BID 08/02/2018 08/11/2018 Inactive hydrocortisone 2.5 % topical cream RxNorm: 077300 1 Application TOP BID 07/21/2018 No Stop Date Active Adderall 30 mg tablet RxNorm: 766046 2 Tablet(s) PO daily 07/20/2018 08/17/2018 Inactive testosterone cypiona te 200 mg/mL intramuscular oil RxNorm: 280503 Milliliter(s) IM 07/15/2018 07/15/2018 In active alprazolam 1 mg tablet RxNorm: 273980 1 Tablet(s) PO TID as needed 07/12/2018 09/07/2018 Inactive hydrocodone 5 mg-fanny taminophen 325 mg tablet RxNorm: 229135 1 Tablet(s) PO TID NV N 06/30/2018 09/19/2018 In active pravastatin 40 mg ta blet RxNorm: 234035 1 Tablet(s) PO QHS 06/18/2018 09/15/2018 Inactive Adderall 30 mg tablet RxNorm: 954519 2 Tablet(s) PO daily 06/18/2018 07/17/2018 Inactive testosterone cypiona te 200 mg/mL intramuscular oil RxNorm: 319693 Milliliter(s) IM 06/17/2018 06/17/2018 In active Voltaren 1 % topical gel RxNorm: 673394 APPLY TOPICALLY TWO T IMES A DAY 06/16/2018 07/21/2018 In active Vitamin D2 50,000 un it capsule RxNorm: 3948454 1 Capsule(s) PO QW 05/21/2018 No Stop Date Active Adderall 30 mg tablet RxNorm: 934851 2 Tablet(s) PO daily 05/21/2018 06/17/2018 Inactive testosterone cypiona te 200 mg/mL intramuscular oil RxNorm: 994861 Milliliter(s) IM 05/21/2018 05/21/2018 In active testosterone cypiona te 200 mg/mL intramuscular oil RxNorm: 0705096 1 Milliliter(s) IM monthly 05/20/2018 09/16/2018 Inactive testosterone cypiona te 200 mg/mL intramuscular oil RxNorm: 675363 1 Milliliter(s) IM monthly 05/20/2018 05/19/2018 Inactive hydrocodone 5 mg-fanny taminophen 325 mg tablet RxNorm: 541711 1 Tablet(s) PO TID NV N 05/20/2018 06/29/2018 In active Vitamin D2 50,000 un it capsule RxNorm: 5012390 1 Capsule(s) PO QW 05/18/2018 05/20/2018 Inactive triamcinolone aceton destin 0.025 % topical cream RxNorm: 0367078 1 Application TOP BI D 05/13/2018 No Stop Date Active Dexilant 60 mg capsu le, delayed release RxNorm: 657976 1 Capsule(s) PO BID 05/13/2018 08/16/2018 In active Zorvolex 35 mg capsule RxNorm: 6768338 1 Capsule(s) PO TID as needed for pain 05/12/2018 08/09/2018 In active Voltaren 1 % topical gel RxNorm: 016546 1 Application TOP BID 05/12/2018 06/15/2018 Inactive acyclovir 400 mg tablet RxNorm: 373882 1 Tablet(s) PO TID as needed take at ons et of symptoms of cold sores x 5 days 05/10/2018 No Stop Date Active paroxetine 20 mg tablet RxNorm: 0852105 2 Tablet(s) PO QHS 05/10/2018 10/31/2019 Active ProAir HFA 90 mcg/ac tuation aerosol inhaler RxNorm: 847392 1 Puff(s) INH QID as needed 05/10/2018 No Stop Date Active baclofen 20 mg tablet RxNorm: 084714 1 Tablet(s) PO TID as needed muscle spas ms 05/10/2018 06/08/2018 In active Singulair 10 mg tablet RxNorm: 624242 1 Tablet(s) PO daily 05/10/2018 08/07/2018 Inactive atenolol 50 mg tablet RxNorm: 715591 1 Tablet(s) PO BID 05/10/2018 08/07/2018 Inactive triamcinolone aceton destin 0.025 % topical cream RxNorm: 9579947 1 Application TOP BI D 05/10/2018 05/12/2018 In active tramadol 50 mg tablet RxNorm: 185944 1 Tablet(s) PO TID as needed 05/10/2018 05/19/2018 Inactive Dexilant 60 mg capsu le, delayed release RxNorm: 390850 1 Capsule(s) PO daily 05/10/2018 05/12/2018 In active alprazolam 1 mg tablet RxNorm: 505703 1 Tablet(s) PO TID as needed 05/10/2018 08/06/2018 Inactive trazodone 100 mg tablet RxNorm: 849450 1 Tablet(s) PO QHS 05/10/2018 11/05/2018 Inactive cyclobenzaprine 10 m g tablet RxNorm: 637095 1 Tablet(s) PO TID as needed muscle spasms 05/07/2018 07/12/2018 Inactive trazodone 100 mg tablet RxNorm: 975759 1 Tablet(s) PO QHS 05/07/2018 05/09/2018 Inactive Adderall 30 mg tablet RxNorm: 855514 2 Tablet(s) PO daily 04/19/2018 05/18/2018 Inactive alprazolam 1 mg tablet RxNorm: 349654 1 Tablet(s) PO BID 04/19/2018 05/09/2018 Inactive Adderall 30 mg tablet RxNorm: 644057 2 Tablet(s) PO daily 03/26/2018 04/18/2018 Inactive paroxetine 20 mg tablet RxNorm: 7939291 2 Tablet(s) PO QHS 03/15/2018 05/09/2018 Inactive Adderall 30 mg tablet RxNorm: 901836 2 Tablet(s) PO daily 02/25/2018 03/25/2018 Inactive cyclobenzaprine 10 m g tablet RxNorm: 091881 1 Tablet(s) PO TID as needed muscle spasms 02/22/2018 05/06/2018 Inactive tramadol 50 mg tablet RxNorm: 424238 1 Tablet(s) PO TID as needed 02/22/2018 03/07/2018 Inactive tramadol 50 mg tablet RxNorm: 796852 1 Tablet(s) PO TID as needed 02/22/2018 02/21/2018 Inactive trazodone 100 mg tablet RxNorm: 972298 1 Tablet(s) PO QHS 02/03/2018 05/03/2018 Inactive trazodone 100 mg tablet RxNorm: 821484 1 Tablet(s) PO QHS 02/03/2018 02/02/2018 Inactive Adderall 30 mg tablet RxNorm: 307579 2 Tablet(s) PO daily 01/27/2018 02/18/2018 Inactive acyclovir 400 mg tablet RxNorm: 328013 1 Tablet(s) PO TID as needed take at ons et of symptoms of cold sores x 5 days 01/15/2018 05/09/2018 Inactive Bactrim DS 800 mg-16 0 mg tablet RxNorm: 391009 1 Tablet(s) PO BID 01/11/2018 01/17/2018 Inactive Bactrim DS 800 mg-16 0 mg tablet RxNorm: 480896 1 Tablet(s) PO BID 01/11/2018 01/10/2018 Inactive Dexilant 60 mg capsu le, delayed release RxNorm: 941349 1 Capsule(s) PO daily 12/23/2017 05/09/2018 In active Dexilant 60 mg capsu le, delayed release RxNorm: 588853 1 Capsule(s) PO daily 12/23/2017 12/22/2017 In active atenolol 50 mg tablet RxNorm: 913928 1 Tablet(s) PO BID 12/15/2017 05/09/2018 Inactive alprazolam 1 mg tablet RxNorm: 033264 1-1.5 Tablet(s) PO daily 12/15/2017 04/18/2018 Inactive ceftriaxone 500 mg s olution for injection RxNorm: 3708486 Inj 08/03/2015 08/03/2015 Inactive paroxetine 20 mg tablet RxNorm: 3930931 2 Tablet(s) PO QHS 08/01/2015 10/29/2015 Inactive pravastatin 40 mg ta blet RxNorm: 524787 1/2 Tablet(s) PO QHS 08/01/2015 12/14/2017 Inactive Trazadone 100mg 100 mg RxNorm: 1 PO daily 08/01/2015 11/27/2015 Inactive Trazadone 100mg 100 mg RxNorm: 1 PO daily 08/01/2015 05/04/2018 Inactive atenolol 50 mg tablet RxNorm: 959324 1 Tablet(s) PO daily 08/01/2015 10/29/2015 Inactive ibuprofen 800 mg tablet RxNorm: 081563 1 Tablet(s) PO BID -TID No Start Date Active Fish Oil 360 mg-1,20 0 mg capsule RxNorm: 821249 1 Capsule(s) PO BID No Start Date Active Zyrtec 10 mg tablet RxNorm: 1562414 1 Tablet(s) PO daily No Start Date Active pravastatin 40 mg ta blet RxNorm: 590016 1/2 Tablet(s) PO QHS No Start Date 07/31/2015 Inactive Benadryl Allergy 25 mg tablet RxNorm: 0111858 1 Tablet(s) PO daily No Start Date 07/19/2018 Inactive Adderall 30 mg tablet RxNorm: 019004 2 Tablet(s) PO daily No Start Date 01/26/2018 Inactive Aspirin Low Dose 81 mg tablet,delayed release RxNorm: 914641 1 Tablet(s) PO BID No Start Date 07/19/2018 Inactive Singulair 10 mg tablet RxNorm: 830542 1 Tablet(s) PO daily No Start Date 05/09/2018 Inactive cyclobenzaprine 10 m g tablet RxNorm: 876011 1 Tablet(s) PO TID as needed muscle spasms No Start Date 02/21/2018 Inactive Trazadone 100mg 100 mg RxNorm: 1 PO daily No Start Date 07/31/2015 Inactive clindamycin 1 %-arthur oyl peroxide 5 % topical gel RxNorm: 731978 TOP APPLY TO AFFECTED AREA(S) ON SERNA TWO TIMES A DAY No Start Date 11/16/2018 Inactive hydrocortisone 2.5 % topical cream RxNorm: 462268 1 Application TOP BID No Start Date 07/20/2018 Inactive alprazolam 1 mg tablet RxNorm: 606013 2 Tablet(s) PO daily No Start Date 12/14/2017 Inactive tramadol 50 mg tablet RxNorm: 233520 1-2 Tablet(s) PO Q6 as needed No Start Date 08/17/2018 Inactive Vitamin D2 50,000 un it capsule RxNorm: 6207559 1 Capsule(s) PO QW No Start Date 05/17/2018 Inactive pantoprazole 40 mg t ablet,delayed release RxNorm: 884907 1 Tablet(s) PO BID No Start Date 12/22/2017 Inactive atenolol 50 mg tablet RxNorm: 857797 1 Tablet(s) PO daily No Start Date 07/31/2015 Inactive paroxetine 20 mg tablet RxNorm: 187574 2 Tablet(s) PO QHS No Start Date 07/31/2015 Inactive Medication Administered Medication Codes Instruc tions Start Date Status testosterone cypionate 200 mg/mL intramuscular oil RxNorm: 3626992 1.25Milliliter 12/29/2018 No longer Active testosterone cypionate 200 mg/mL intramuscular oil RxNorm: 5084766 Milliliter 12/16/2018 No longer Active testosterone cypionate 200 mg/mL intramuscular oil RxNorm: 0460099 1Milliliter 11/15/2018 No longer Active testosterone cypionate 200 mg/mL intramuscular oil RxNorm: 822633 Milliliter 09/28/2018 No longer Active testosterone cypionate 200 mg/mL intramuscular oil RxNorm: 168813 Milliliter 09/16/2018 No longer Active testosterone cypionate 200 mg/mL intramuscular oil RxNorm: 614729 1Milliliter 09/02/2018 No longer Active testosterone cypionate 200 mg/mL intramuscular oil RxNorm: 736674 Milliliter 08/19/2018 No longer Active testosterone cypionate 200 mg/mL intramuscular oil RxNorm: 917184 Milliliter 07/15/2018 No longer Active testosterone cypionate 200 mg/mL intramuscular oil RxNorm: 090858 Milliliter 06/17/2018 No longer Active testosterone cypionate 200 mg/mL intramuscular oil RxNorm: 685692 Milliliter 05/21/2018 No longer Active ceftriaxone 500 mg solution for injection RxNorm: 0618934 08/03/2015 No longer A ctive Immunizations Vaccine [...] Code Result Date Comp. Metabolic Panel (14) 93906 GLUCOSE 117 mg/dL 12/17/2018 Comp. Metabolic Panel (14) 84405 BUN 17 mg/dL 12/17/2018 Comp. Metabolic Panel (14) 21505 CREATININE 0.99 mg/dL 12/17/2018 Comp. Metabolic Panel (14) 45366 SODIUM 137 mmol/L 12/17/2018 Comp. Metabolic Panel (14) 34051 POTASSIUM 4.6 mmol/L 12/17/2018 Comp. Metabolic Panel (14) 35723 CHLORIDE 102 mmol/L 12/17/2018 Comp. Metabolic Panel (14) 23099 CARBON DIOXIDE 21 mmol/L 12/17/2018 Comp. Metabolic Panel (14) 35333 CALCIUM 9.4 mg/dL 12/17/2018 Comp. Metabolic Panel (14) 25939 TOTAL PROTEIN 7.5 g/dL 12/17/2018 Comp. Metabolic Panel (14) 85139 ALBUMIN 5.1 g/dL 12/17/2018 Comp. Metabolic Panel (14) 05876 ALKALINE PHOSPHATASE 79 U/L 12/17/2018 Comp. Metabolic Panel (14) 32431 TOTAL BILIRUBIN 0.5 mg/dL 12/17/2018 Comp. Metabolic Panel (14) 45451 SGOT (AST) 34 U/L 12/17/2018 Comp. Metabolic Panel (14) 16426 SGPT (ALT) 40 U/L 12/17/2018 Comp. Metabolic Panel (14) 67721 eGFR (mL/min/1.73m2) 115 12/17/2018 Comp. Metabolic Panel (14) 65198 INTERPRETATION 12/17/2018 Testosterone Serum 174752 TESTOSTERONE 96.8 ng/dL 12/17/2018 Cbc With Differential/Platelet 34351 WBC 5.61 thou/uL 9 Cbc With Differential/Platelet 47619 RBC 5.53 mil/uL 12/17/2018 Cbc With Differential/Platelet 99495 HEMOGLOBIN 15.4 g/dL 12/17/2018 Cbc With Differential/Platelet 63479 HEMATOCRIT 48.1 % 12/17/2018 Cbc With Differential/Platelet 68401 MCV 87.0 fL 12/17/2018 Cbc With Differential/Platelet 70998 MCH 27.8 pg 12/17/2018 Cbc With Differential/Platelet 98913 MCHC 32.0 g/dL 12/17/2018 Cbc With Differential/Platelet 21907 RDW-CV 13.9 % 12/17/2018 Cbc With Differential/Platelet 17025 PLATELET COUNT 294 thou/uL 12/17/2018 Cbc With Differential/Platelet 70619 NEUTROPHIL % 71.2 % 12/17/2018 Cbc With Differential/Platelet 93980 LYMPHOCYTE % 22.2 % 12/17/2018 Cbc With Differential/Platelet 34137 MONOCYTE % 5.4 % 12/17/2018 Cbc With Differential/Platelet 67808 EOS % 0.9 % 12/17/2018 Cbc With Differential/Platelet 04105 BASO % 0.4 % 12/17/2018 Cbc With Differential/Platelet 37908 NEUTROPHIL ABS # 3.99 thou/uL 12/17/2018 Cbc With Differential/Platelet 22399 LYMPH ABS # 1.25 thou/uL 12/17/2018 Cbc With Differential/Platelet 65384 MONOCYTE ABS # 0.30 thou/uL 12/17/2018 Cbc With Differential/Platelet 44315 EOS ABS # 0.05 thou/uL 9 Cbc With Differential/Platelet 67475 BASO ABS # 0.02 thou/uL 12/17/2018 Lipid Panel 42651 CHOLES TEROL 227 mg/dL 12/17/2018 Lipid Panel 95114 TRIGLY CERIDES 229 mg/dL 12/17/2018 Lipid Panel 83682 HDL 41 mg/dL 12/17/2018 Lipid Panel 24121 CHOLES TEROL/HDL 5.54 12/17/2018 Lipid Panel 37805 LDL (C ALCULATED) 140 mg/dL 12/17/2018 Lipid Panel 77626 LDL/HDL 3.41 12/17/2018 Lipid Panel 33044 INTERP RETATION 12/17/2018 Tsh 804071 TSH 1.190 uIU/mL 12/17/2018 Testosterone Serum 281101 TESTOSTERONE 44.1 ng/dL 08/18/2018 Hemoglobin 951186 WBC 7.62 thou/uL 08/17/2018 Hemoglobin 231703 RBC 5.23 mil/uL 08/17/2018 Hemoglobin 018823 HEMOGL OBIN 15.0 g/dL 08/17/2018 Hemoglobin 581176 HEMATO CRIT 45.0 % 08/17/2018 Hemoglobin 804862 MCV 86.0 fL 08/17/2018 Hemoglobin 607849 MCH 28.7 pg 08/17/2018 Hemoglobin 274871 MCHC 33.3 g/dL 08/17/2018 Hemoglobin 922359 RDW-CV 12.9 % 08/17/2018 Hemoglobin 239167 PLATEL ET COUNT 313 thou/uL 08/17/2018 Hematocrit 177617 WBC 7.62 thou/uL 08/17/2018 Hematocrit 611046 RBC 5.23 mil/uL 08/17/2018 Hematocrit 564463 HEMOGL OBIN 15.0 g/dL 08/17/2018 Hematocrit 410866 HEMATO CRIT 45.0 % 08/17/2018 Hematocrit 461764 MCV 86.0 fL 08/17/2018 Hematocrit 637325 MCH 28.7 pg 08/17/2018 Hematocrit 330395 MCHC 33.3 g/dL 08/17/2018 Hematocrit 677283 RDW-CV 12.9 % 08/17/2018 Hematocrit 659429 PLATEL ET COUNT 313 thou/uL 08/17/2018 Culture Mrsa 341145 MRSA CULTURE SEE NOTES 06/21/2018 Comp. Metabolic Panel (14) 85183 GLUCOSE 101 mg/dL 06/18/2018 Comp. Metabolic Panel (14) 00050 BUN 18 mg/dL 06/18/2018 Comp. Metabolic Panel (14) 69711 CREATININE 0.99 mg/dL 06/18/2018 Comp. Metabolic Panel (14) 97519 SODIUM 141 mmol/L 06/18/2018 Comp. Metabolic Panel (14) 20925 POTASSIUM 4.3 mmol/L 06/18/2018 Comp. Metabolic Panel (14) 31190 CHLORIDE 103 mmol/L 06/18/2018 Comp. Metabolic Panel (14) 06674 CARBON DIOXIDE 23 mmol/L 06/18/2018 Comp. Metabolic Panel (14) 12855 CALCIUM 9.8 mg/dL 06/18/2018 Comp. Metabolic Panel (14) 82706 TOTAL PROTEIN 7.1 g/dL 06/18/2018 Comp. Metabolic Panel (14) 90438 ALBUMIN 5.2 g/dL 06/18/2018 Comp. Metabolic Panel (14) 68571 ALKALINE PHOSPHATASE 65 U/L 06/18/2018 Comp. Metabolic Panel (14) 94028 TOTAL BILIRUBIN 0.6 mg/dL 06/18/2018 Comp. Metabolic Panel (14) 87744 SGOT (AST) 21 U/L 06/18/2018 Comp. Metabolic Panel (14) 71205 SGPT (ALT) 24 U/L 06/18/2018 Comp. Metabolic Panel (14) 95262 eGFR (mL/min/1.73m2) 115 06/18/2018 Comp. Metabolic Panel (14) 41264 INTERPRETATION 06/18/2018 Cbc With Differential/Platelet 61035 WBC 4.55 thou/uL 8 Cbc With Differential/Platelet 18738 RBC 5.13 mil/uL 06/18/2018 Cbc With Differential/Platelet 71538 HEMOGLOBIN 14.4 g/dL 06/18/2018 Cbc With Differential/Platelet 46498 HEMATOCRIT 44.1 % 06/18/2018 Cbc With Differential/Platelet 46656 MCV 85.9 fL 06/18/2018 Cbc With Differential/Platelet 37882 MCH 28.1 pg 06/18/2018 Cbc With Differential/Platelet 06354 MCHC 32.7 g/dL 06/18/2018 Cbc With Differential/Platelet 16682 RDW-CV 13.4 % 06/18/2018 Cbc With Differential/Platelet 04969 PLATELET COUNT 287 thou/uL 06/18/2018 Cbc With Differential/Platelet 78738 NEUTROPHIL % 53.9 % 06/18/2018 Cbc With Differential/Platelet 39313 LYMPHOCYTE % 36.1 % 06/18/2018 Cbc With Differential/Platelet 85217 MONOCYTE % 7.4 % 06/18/2018 Cbc With Differential/Platelet 81388 EOS % 1.9 % 06/18/2018 Cbc With Differential/Platelet 57716 BASO % 0.8 % 06/18/2018 Cbc With Differential/Platelet 45583 NEUTROPHIL ABS # 2.45 thou/uL 06/18/2018 Cbc With Differential/Platelet 84833 LYMPH ABS # 1.64 thou/uL 06/18/2018 Cbc With Differential/Platelet 03892 MONOCYTE ABS # 0.34 thou/uL 06/18/2018 Cbc With Differential/Platelet 09077 EOS ABS # 0.09 thou/uL 8 Cbc With Differential/Platelet 85840 BASO ABS # 0.04 thou/uL 06/18/2018 Review [...] palp - RUE Upper arm: deformity 12/20/2018 dyana Full Exam - General 1994 Constitutional general [...] Procedure Codes Date THER/PROPH/DIAG INJ SC/IM CPT-4: 72111 12/29/2018 THER/PROPH/DIAG INJ SC/IM CPT-4: 48795 12/16/2018 THER/PROPH/DIAG INJ SC/IM CPT-4: 90051 11/15/2018 THER/PROPH/DIAG INJ SC/IM CPT-4: 02313 09/28/2018 THER/PROPH/DIAG INJ SC/IM CPT-4: 75765 09/16/2018 THER/PROPH/DIAG INJ SC/IM CPT-4: 55181 09/02/2018 THER/PROPH/DIAG INJ SC/IM CPT-4: 85743 08/19/2018 IMMUNIZATION ADMIN CPT- 4: 93612 08/02/2018 FLU VAC NO PRSV 4 VA L 3 YRS+ CPT-4: 18655 08/02/2018 THER/PROPH/DIAG INJ SC/IM CPT-4: 10227 07/15/2018 THER/PROPH/DIAG INJ SC/IM CPT-4: 34169 06/17/2018 THER/PROPH/DIAG INJ SC/IM CPT-4: 95352 05/21/2018 THER/PROPH/DIAG INJ SC/IM CPT-4: 89432 08/03/2015 ROCEPHIN, PER 250 MG CPT-4: J0696 08/03/2015 Vital Signs Date Vital 12/29/2018 Blood Pressure 1: 144/90 Code: 8480-6 BMI: 34.8 Code: 06368-0 Heart Rate 1: 91 bpm Height: 5'7" SpO2: 98% Weight: 222 lbs 12/20/2018 Blood Pressure 1: 124/76 Code: 8480-6 BMI: 35.4 Code: 77347-7 Heart Rate 1: 79 bpm Height: 5'7" SpO2: 99% Weight: 226 lbs 12/16/2018 Blood Pressure 1: 160/90 Code: 8480-6 BMI: 35.4 Code: 93950-5 Heart Rate 1: 90 bpm Height: 5'7" SpO2: 95% Weight: 226 lbs 11/01/2018 Blood Pressure 1: 146/82 Code: 8480-6 BMI: 36.0 Code: 70502-3 Heart Rate 1: 87 bpm Height: 5'7" SpO2: 98% Weight: 230 lbs 09/24/2018 Blood Pressure 1: 140/82 Code: 8480-6 BMI: 36.0 Code: 96911-5 Heart Rate 1: 86 bpm Height: 5'7" SpO2: 98% Temperature: 37.1 (C ) / 98.7 (F) Weight: 230 lbs 08/16/2018 Blood Pressure 1: 148/82 Code: 8480-6 Blood Pressure 2: 157/92 Code: 8480-6 BMI: 35.9 Code: 31783-4 Heart Rate 1: 72 bpm Height: 5'7" SpO2: 96% Weight: 229 lbs 08/02/2018 Blood Pressure 1: 142/86 Code: 8480-6 BMI: 35.2 Code: 04630-6 Heart Rate 1: 101 bpm Height: 5'7" SpO2: 97% Weight: 225 lbs 05/31/2018 Blood Pressure 1: 134/82 Code: 8480-6 BMI: 35.4 Code: 67949-3 Heart Rate 1: 91 bpm Height: 5'7" SpO2: 96% Weight: 226 lbs 05/20/2018 Blood Pressure 1: 160/100 Code: 8480-6 BMI: 35.2 Code: 84874-3 Heart Rate 1: 89 bpm Height: 5'7" SpO2: 98% Weight: 225 lbs 05/10/2018 Blood Pressure 1: 124/70 Code: 8480-6 BMI: 35.1 Code: 14040-8 Heart Rate 1: 93 bpm Height: 5'7" SpO2: 99% Weight: 224 lbs 01/15/2018 Blood Pressure 1: 142/92 Code: 8480-6 BMI: 36.3 Code: 60116-6 Heart Rate 1: 77 bpm Height: 5'7" SpO2: 98% Weight: 232 lbs 12/15/2017 Blood Pressure 1: 156/98 Code: 8480-6 BMI: 36.2 Code: 05709-1 Heart Rate 1: 87 bpm Height: 5'7" [...] eye 01/15/2018 None vision change Quality ac [facility] 01/15/2018 None vision change Quality lo ss [...] vision 12/15/2017 None vision change Quality ac [facility] 12/15/2017 None vision change Onset and Resolution sudden in onset 12/15/2017 None vision change Onset of Symptom 3.5 weeks ago 12/15/2017 None vision change Limitation on Activities severely limits vision 12/15/2017 None vision change Triggers n o known associated factors 12/15/2017 None Advance Directives No Advance Directive data Encounters Encounter Performer Loca tion Codes Date ([id number]) [id number] EST. 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 PATIENT, LEVEL III Diagnosis: Pain in right arm[ICD10: M79.601] Sonia Gonzalez MD, [facility] CPT-4: 43707 12/20/2018 ([id number]) [id number] EST. 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 PATIENT, LEVEL III Diagnosis: Acute upper respiratory infection, unspecified[ICD10: J06.9] Diagnosis: Other allergic rhinitis[ICD10: J30.89] Sonia Gonzalez MD, [facility] CPT-4: 33479 09/24/2018 ([id number]) 70909 EST. 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 P ATIENT, LEVEL IV Diagnosis: Essential (primary) hypertension[ICD10: I10] Diagnosis: Cervicalgia[ICD10: M54.2] Radha Gonzalez MD, [facility] CPT-4: 14309 05/31/2018 ([id number]) 34075 EST. 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] Diagnosis: Obstructive sleep apnea (adult) (pediatric)[ICD10: G47.33] Radha Gonzalez MD, [facility] CPT-4: 38927 01/15/2018 ([id number]) PREV VISIT N EW AGE 40-64 Diagnosis: Encounter for general adult medical examination with abnormal findings[ICD10: Z00.01] [facility] CPT-4: 26219 12/15/2017 ([id number]) OFFICE/OUTPA TIENT VISIT NEW Diagnosis: Laceration of thumb[ICD9: 883.0] [facility] CPT-4: 36756 08/03/2015 Plan of Care Planned Activity Notes C odes Status Date Visit Plan: Chronic neck and back p ain - pt has chronic pain - has been maintained on current medications, has not sought out other medications, only uses PRN pain medications as directed, and understands the co nsequences of over-medication. Hypogonadism - continue with testosterone injections. 12/29/2018 Appointment: Radha Gonzalez WPtel: [facility]4 [facility] (15 min) Moderate 12/29/2018 Patient Education: Patient Medication Summary Completed 12/29/2018 Patient Education: .Cervicalgia Neck Pain Completed 12/29/2018 Patient Education: Patient Medication Summary Completed 12/21/2018 Care Plan: %Hba1C add to blood from 12/17 LOINC : 70033-9 Pending 12/21/2018 Visit Plan: Right arm pain - dayna deformity noted - will refer to ortho - The pt is to use prn antiinflammatories to manage acute pain. The patient is to call the office if the pain is worsening or does not improve. 12/20/2018 Appointment: Sonia Potter WPtel: [address] [place], [place] [phone] (15 min) Moderate 12/20/2018 Patient Education: Patient [...] with testosterone. 12/16/2018 [facility]ment: [phone] [facility] (15 min) Moderate 12/16/2018 Patient Education: Patient [...] needed. 11/01/2018 Appointment: Radha Gonzalez WPtel: [phone] [facility] (15 min) Moderate 11/01/2018 Patient [...] spray. 09/24/2018 [facility]ment[phone] (15 min) Moderate 09/24/2018 [...] home. Multiple symptoms - referral to [facility] - appt in September 30, 2018. 08/16/2018 Appointment: Radha Gonzalez WPtel: [phone] [facility] (15 min) Moderate 08/16/2018 Patient [...] home. Multiple symptoms - referral to [facility] - rashes, hypogonadism, optic neuritis - all points to possible autoimmune syndrome. Spinal stenosis - of thoracic region - pt to talk to Dr. Dunaway about referral to a different specialist for his mid- back. Hypogonadism - continue with testosterone. Flu shot given today in clinic. 08/02/2018 Appointment: [phone] [facility] [place] (15 min) Moderate 08/02/2018 Patient Education: Patient Medication Summary Completed 08/02/2018 Care Plan: Referral Order SNOMED-CT : 584015250 Pending 08/02/2018 Appointment: Injection 07/15/2018 Patient Education: [...] home. Cervical spine stenosis - referral to [facility]. I have also recommended a Referral to Dr. Dunaway. I have called and talked to Dr. Dunaway - he looked at the pt's imaging and agrees that getting the pt in to be seen soon would be a preferred option. 05/31/2018 Appointment: Radha Gonzalez WPtel: [phone] [facility] (15 min) Moderate 05/31/2018 Patient Education: Patient Medication Summary Completed 05/31/2018 Care Plan: Referral Order SNOMED-CT : 034664916 Pending 05/31/2018 Care Plan: Referral Order SNOMED-CT : [id number] Pending 05/31/2018 Appointment: Injection 05/21/2018 Patient Education: Patient Medication Summary Completed 05/21/2018 Care Plan: Referral Order SNOMED-CT : 798605590 Pending 05/21/2018 Visit Plan: Cervical and thoracic s tenosis with spinal cord compression -refer for appt with Dr Marr -rx for hydrocodone for pain-start gabapentin at bedtime Soft tissue lesion-left chest-schedule CTfor further evaluation HTN-elevated today-hold adderall-monitor blood pressure 05/20/2018 Appointment: Hannah Simons WPtel: [phone] [place] (15 min) Moderate 05/20/2018 Patient [...] order this. 05/10/2018 Appointment: Sonia Potter WPtel: [phone] [facility] (15 min) Moderate 05/10/2018 Patient Education: Patient Medication Summary Completed 05/10/2018 Visit Plan: Sleep apnea - rx for cp ap - actually autopap was recommended and pt given rx today. HTN - referral to dr. kapoor - pt needs stress testing. 01/15/2018 Appointment: Radha Gonzalez WPtel: [phone] [facility] (15 min) Moderate 01/15/2018 Patient Education: Patient Medication Summary Completed 01/15/2018 Care Plan: Referral Order SNOMED-CT : [id number] Pending 01/15/2018 Visit Plan: Well Adult - [...] one month. 12/15/2017 Appointment: Radha Gonzalez WPtel: [phone] [facility] New Patient 12/15/2017 Patient Education: Patient Medication Summary Completed 12/15/2017 Care Plan: CHEST X-RAY 2VW FRONTAL&LATL LOINC : 93965-9 Pending 12/15/2017 Appointment: [facility]el[phone] [facility] (15 min) Moderate 12/08/2017 Appointment: [...] Ordering Provider 08/03 Referral info faxed to [place]. Patient informed to be expecting a call from them with appt info Appointment Requested Referral: External, Ordering Provider Referral Appointment Requested Referral: External, Ordering Provider I called today; they will call him to schedule. Completed Referral: Armani Dunaway Referral Appointment Requested Referral: Mayte Kapoor Referral Appointment Requested Referral: [facility] [phone] [facility] Referral Appointment Requested Referral: External, Ordering Provider [...] home. Multiple symptoms - referral to [facility] - rashes, hypogonadism, optic neuritis - all [...] home. Multiple symptoms - referral to [facility] - appt in September 30, 2018. . [...] fill prior to his trip to [place] will refill meds for 90 days Will [...] home. Cervical spine stenosis - referral to [facility]. I have also recommended a Referral to Dr. Dunaway. I have called and talked to Dr. Dunaway - he looked at the pt's imaging and agrees that getting the pt in to be seen soon would be a preferred option.
[2020-04-28] MEDS ORDERED: MONT10TA26 (00:43)
[2020-04-28] MEDS ORDERED: OXYCONTIN (00:43)
[2020-04-28] MEDS ORDERED: AMPHET/DEXTR (00:43)
[2020-04-28] MEDS ORDERED: TRAZODONE (00:43)
[2020-04-28] MEDS ORDERED: DEXILANT (00:43)
[2020-04-28] MEDS ORDERED: PRAV40TA2 (00:43)
[2020-04-28] MEDS ORDERED: TESTOSTERONE (00:43)
[2020-04-28] MEDS ORDERED: METH2.5T (00:43)
[2020-04-28] MEDS ORDERED: FOLIC (00:43)
[2020-04-28] MEDS ORDERED: ATEN50TA (00:43)
--- OUTSIDE RECORDS SUMMARY | 2020-04-28 00:43 | XMS REPORT | CCD ---
Author Author Nilton Gonzalez Organization [facility] Address [address] [place] [address] Phone Care Team Providers Care Thermoplastic Technician Name Role Phone PP Unavailable CCM Unavailable Summary Purpose Interface Exchange Insurance Providers Payer name Policy type / Coverage type Covered libertarian ID Effective Begin Date Effective End Date [employer] [id number] 2018 Unknown Family history Brother Diagnosis Age At Onset Alcoholism Unknown Father Diagnosis Age At Onset Hypercholesterolemia Unknown Social History Social History Element Codes Description Effective Dates Marital status Unknown S chanda 12/15/2017 Number of children Unknown 1 12/15/2017 Employment Unknown 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 employed [employer] 12/15/[address]: 398402075 Never smoker 12/15/[address]: 102612 Currently drinks alcohol <1 per week 12/15/2017 [...] Fill Instructions tramadol 50 mg tablet RxNorm: 912826 1-2 Tablet(s) PO Q6 as needed 01/11/2019 No Stop Date Active hydrocodone 5 mg-fanny taminophen 325 mg tablet RxNorm: 147663 1-2 Tablet(s) PO Q6 a s needed 12/29/2018 No Stop Date Active Adderall 30 mg tablet RxNorm: 888543 2 Tablet(s) PO daily 12/29/2018 01/27/2019 Active atenolol 50 mg tablet RxNorm: 846295 1.5 Tablet(s) PO BID 12/29/2018 12/23/2019 Active hydrocodone 5 mg-fanny taminophen 325 mg tablet RxNorm: 106375 1-2 Tablet(s) PO Q6 a s needed 12/29/2018 12/28/2018 Inactive testosterone cypiona te 200 mg/mL intramuscular oil RxNorm: 3827080 1.25 Milliliter(s) IM 12/29/2018 12/29/2018 Inactive hydrocodone 5 mg-fanny taminophen 325 mg tablet RxNorm: 229755 1 Tablet(s) PO TID NJ N 12/28/2018 12/28/2018 In active testosterone cypiona te 200 mg/mL intramuscular oil RxNorm: 4227827 1.25 Milliliter(s) IM 2 x month 12/22/2018 04/12/2019 Active gabapentin 300 mg ca psule RxNorm: 753972 1 Capsule(s) PO QID 12/16/2018 12/10/2019 Active Voltaren 1 % topical gel RxNorm: 053711 2 Gram(s) APPLY TOPIC ALLY four TIMES A DAY 12/16/2018 01/20/2019 Ac tive testosterone cypiona te 200 mg/mL intramuscular oil RxNorm: 3239015 Milliliter(s) IM 12/16/2018 12/16/2018 In active trazodone 100 mg tablet RxNorm: 472925 TAKE ONE TABLET BY MOUTH EVERY NIGHT AT BEDTIME 12/07/2018 06/04/2019 Active hydrocodone 5 mg-fanny taminophen 325 mg tablet RxNorm: 505385 1 Tablet(s) PO TID NJ N 11/29/2018 12/27/2018 In active Adderall 30 mg tablet RxNorm: 207186 2 Tablet(s) PO daily 11/29/2018 12/28/2018 Inactive clindamycin 1 %-arthur oyl peroxide 5 % topical gel RxNorm: 730543 TOP APPLY TO AFFECTED AREA(S) ON SERNA TWO TIMES A DAY 11/17/2018 No Stop Date Active testosterone cypiona te 200 mg/mL intramuscular oil RxNorm: 9981837 1 Milliliter(s) IM 2 x month 11/17/2018 12/21/2018 Inactive Zorvolex 35 mg capsule RxNorm: 7386158 1 Capsule(s) PO TID as needed for pain 11/15/2018 05/13/2019 Ac tive ketoconazole 2 % top ical cream RxNorm: 098218 APPLY ONE GRAM TOPICA LLY TWICE A DAY 11/15/2018 11/29/2018 In active testosterone cypiona te 200 mg/mL intramuscular oil RxNorm: 7807971 1 Milliliter(s) IM 11/15/2018 11/14/2018 Inactive hydrocodone 5 mg-fanny taminophen 325 mg tablet RxNorm: 445187 1 Tablet(s) PO TID NJ N 11/02/2018 11/28/2018 In active Singulair 10 mg tablet RxNorm: 697631 1 Tablet(s) PO daily 11/01/2018 07/28/2019 Active testosterone cypiona te 200 mg/mL intramuscular oil RxNorm: 8821244 1 Milliliter(s) IM 2 x month 11/01/2018 11/16/2018 Inactive Adderall 30 mg tablet RxNorm: 645229 2 Tablet(s) PO daily 10/29/2018 11/27/2018 Inactive gabapentin 300 mg ca psule RxNorm: 865207 1 Capsule(s) PO BID m ay take TID 10/19/2018 12/15/2018 In active gabapentin 300 mg ca psule RxNorm: 156481 1 Capsule(s) PO BID m ay take TID 10/19/2018 10/18/2018 In active alprazolam 1 mg tablet RxNorm: 150499 1 Tablet(s) PO TID as needed 10/15/2018 12/13/2018 Inactive testosterone cypiona te 200 mg/mL intramuscular oil RxNorm: 032674 Milliliter(s) IM 09/28/2018 09/28/2018 In active pravastatin 40 mg ta blet RxNorm: 097856 TAKE ONE TABLET BY MO UTH EVERY NIGHT AT BEDTIME 09/27/2018 09/21/2019 Active Tamiflu 75 mg capsule RxNorm: 182540 1 Capsule(s) PO BID 09/24/2018 09/28/2018 Inactive Adderall 30 mg tablet RxNorm: 390952 2 Tablet(s) PO daily 09/20/2018 10/19/2018 Inactive hydrocodone 5 mg-fanny taminophen 325 mg tablet RxNorm: 153578 1 Tablet(s) PO TID NJ N 09/20/2018 11/01/2018 In active testosterone cypiona te 200 mg/mL intramuscular oil RxNorm: 030341 Milliliter(s) IM 09/16/2018 09/16/2018 In active testosterone cypiona te 200 mg/mL intramuscular oil RxNorm: 896668 1 Milliliter(s) IM 09/02/2018 09/02/2018 Inactive testosterone cypiona te 200 mg/mL intramuscular oil RxNorm: 039702 Milliliter(s) IM 08/19/2018 08/19/2018 In active Adderall 30 mg tablet RxNorm: 816589 2 Tablet(s) PO daily 08/18/2018 09/16/2018 Inactive tramadol 50 mg tablet RxNorm: 981201 1-2 Tablet(s) PO Q6 as needed 08/18/2018 01/09/2019 In active Dexilant 60 mg capsu le, delayed release RxNorm: 288852 1 Capsule(s) PO BID 08/17/2018 08/11/2019 Ac tive ketoconazole 2 % top ical cream RxNorm: 762415 1 Gram(s) TOP BID 08/17/2018 08/26/2018 Inactive Zorvolex 35 mg capsule RxNorm: 7248385 1 Capsule(s) PO TID as needed for pain 08/17/2018 08/16/2018 In active atenolol 50 mg tablet RxNorm: 369255 1 Tablet(s) PO BID 08/17/2018 12/28/2018 Inactive Zorvolex 35 mg capsule RxNorm: 1252165 1 Capsule(s) PO TID as needed for pain 08/17/2018 11/14/2018 In active ketoconazole 2 % top ical cream RxNorm: 953531 1 Gram(s) TOP BID 08/02/2018 08/11/2018 Inactive hydrocortisone 2.5 % topical cream RxNorm: 116961 1 Application TOP BID 07/21/2018 No Stop Date Active Adderall 30 mg tablet RxNorm: 817761 2 Tablet(s) PO daily 07/20/2018 08/17/2018 Inactive testosterone cypiona te 200 mg/mL intramuscular oil RxNorm: 600075 Milliliter(s) IM 07/15/2018 07/15/2018 In active alprazolam 1 mg tablet RxNorm: 897843 1 Tablet(s) PO TID as needed 07/12/2018 09/07/2018 Inactive hydrocodone 5 mg-fanny taminophen 325 mg tablet RxNorm: 848623 1 Tablet(s) PO TID NJ N 06/30/2018 09/19/2018 In active pravastatin 40 mg ta blet RxNorm: 069262 1 Tablet(s) PO QHS 06/18/2018 09/15/2018 Inactive Adderall 30 mg tablet RxNorm: 487902 2 Tablet(s) PO daily 06/18/2018 07/17/2018 Inactive testosterone cypiona te 200 mg/mL intramuscular oil RxNorm: 151789 Milliliter(s) IM 06/17/2018 06/17/2018 In active Voltaren 1 % topical gel RxNorm: 849510 APPLY TOPICALLY TWO T IMES A DAY 06/16/2018 07/21/2018 In active Vitamin D2 50,000 un it capsule RxNorm: 9901367 1 Capsule(s) PO QW 05/21/2018 No Stop Date Active Adderall 30 mg tablet RxNorm: 962177 2 Tablet(s) PO daily 05/21/2018 06/17/2018 Inactive testosterone cypiona te 200 mg/mL intramuscular oil RxNorm: 879058 Milliliter(s) IM 05/21/2018 05/21/2018 In active testosterone cypiona te 200 mg/mL intramuscular oil RxNorm: 9818754 1 Milliliter(s) IM monthly 05/20/2018 09/16/2018 Inactive testosterone cypiona te 200 mg/mL intramuscular oil RxNorm: 915702 1 Milliliter(s) IM monthly 05/20/2018 05/19/2018 Inactive hydrocodone 5 mg-fanny taminophen 325 mg tablet RxNorm: 528465 1 Tablet(s) PO TID NJ N 05/20/2018 06/29/2018 In active Vitamin D2 50,000 un it capsule RxNorm: 3435104 1 Capsule(s) PO QW 05/18/2018 05/20/2018 Inactive triamcinolone aceton destin 0.025 % topical cream RxNorm: 2593611 1 Application TOP BI D 05/13/2018 No Stop Date Active Dexilant 60 mg capsu le, delayed release RxNorm: 845081 1 Capsule(s) PO BID 05/13/2018 08/16/2018 In active Zorvolex 35 mg capsule RxNorm: 5405372 1 Capsule(s) PO TID as needed for pain 05/12/2018 08/09/2018 In active Voltaren 1 % topical gel RxNorm: 122261 1 Application TOP BID 05/12/2018 06/15/2018 Inactive acyclovir 400 mg tablet RxNorm: 502602 1 Tablet(s) PO TID as needed take at ons et of symptoms of cold sores x 5 days 05/10/2018 No Stop Date Active paroxetine 20 mg tablet RxNorm: 6684219 2 Tablet(s) PO QHS 05/10/2018 10/31/2019 Active ProAir HFA 90 mcg/ac tuation aerosol inhaler RxNorm: 822814 1 Puff(s) INH QID as needed 05/10/2018 No Stop Date Active baclofen 20 mg tablet RxNorm: 770247 1 Tablet(s) PO TID as needed muscle spas ms 05/10/2018 06/08/2018 In active Singulair 10 mg tablet RxNorm: 628044 1 Tablet(s) PO daily 05/10/2018 08/07/2018 Inactive atenolol 50 mg tablet RxNorm: 165862 1 Tablet(s) PO BID 05/10/2018 08/07/2018 Inactive triamcinolone aceton destin 0.025 % topical cream RxNorm: 0812733 1 Application TOP BI D 05/10/2018 05/12/2018 In active tramadol 50 mg tablet RxNorm: 992132 1 Tablet(s) PO TID as needed 05/10/2018 05/19/2018 Inactive Dexilant 60 mg capsu le, delayed release RxNorm: 329284 1 Capsule(s) PO daily 05/10/2018 05/12/2018 In active alprazolam 1 mg tablet RxNorm: 351617 1 Tablet(s) PO TID as needed 05/10/2018 08/06/2018 Inactive trazodone 100 mg tablet RxNorm: 211302 1 Tablet(s) PO QHS 05/10/2018 11/05/2018 Inactive cyclobenzaprine 10 m g tablet RxNorm: 946361 1 Tablet(s) PO TID as needed muscle spasms 05/07/2018 07/12/2018 Inactive trazodone 100 mg tablet RxNorm: 461926 1 Tablet(s) PO QHS 05/07/2018 05/09/2018 Inactive Adderall 30 mg tablet RxNorm: 941541 2 Tablet(s) PO daily 04/19/2018 05/18/2018 Inactive alprazolam 1 mg tablet RxNorm: 514359 1 Tablet(s) PO BID 04/19/2018 05/09/2018 Inactive Adderall 30 mg tablet RxNorm: 462716 2 Tablet(s) PO daily 03/26/2018 04/18/2018 Inactive paroxetine 20 mg tablet RxNorm: 5538742 2 Tablet(s) PO QHS 03/15/2018 05/09/2018 Inactive Adderall 30 mg tablet RxNorm: 480369 2 Tablet(s) PO daily 02/25/2018 03/25/2018 Inactive cyclobenzaprine 10 m g tablet RxNorm: 170417 1 Tablet(s) PO TID as needed muscle spasms 02/22/2018 05/06/2018 Inactive tramadol 50 mg tablet RxNorm: 339801 1 Tablet(s) PO TID as needed 02/22/2018 03/07/2018 Inactive tramadol 50 mg tablet RxNorm: 599864 1 Tablet(s) PO TID as needed 02/22/2018 02/21/2018 Inactive trazodone 100 mg tablet RxNorm: 834724 1 Tablet(s) PO QHS 02/03/2018 05/03/2018 Inactive trazodone 100 mg tablet RxNorm: 434871 1 Tablet(s) PO QHS 02/03/2018 02/02/2018 Inactive Adderall 30 mg tablet RxNorm: 184174 2 Tablet(s) PO daily 01/27/2018 02/18/2018 Inactive acyclovir 400 mg tablet RxNorm: 890946 1 Tablet(s) PO TID as needed take at ons et of symptoms of cold sores x 5 days 01/15/2018 05/09/2018 Inactive Bactrim DS 800 mg-16 0 mg tablet RxNorm: 306842 1 Tablet(s) PO BID 01/11/2018 01/17/2018 Inactive Bactrim DS 800 mg-16 0 mg tablet RxNorm: 852857 1 Tablet(s) PO BID 01/11/2018 01/10/2018 Inactive Dexilant 60 mg capsu le, delayed release RxNorm: 255483 1 Capsule(s) PO daily 12/23/2017 05/09/2018 In active Dexilant 60 mg capsu le, delayed release RxNorm: 645419 1 Capsule(s) PO daily 12/23/2017 12/22/2017 In active atenolol 50 mg tablet RxNorm: 102062 1 Tablet(s) PO BID 12/15/2017 05/09/2018 Inactive alprazolam 1 mg tablet RxNorm: 144148 1-1.5 Tablet(s) PO daily 12/15/2017 04/18/2018 Inactive ceftriaxone 500 mg s olution for injection RxNorm: 3571131 Inj 08/03/2015 08/03/2015 Inactive paroxetine 20 mg tablet RxNorm: 4277834 2 Tablet(s) PO QHS 08/01/2015 10/29/2015 Inactive pravastatin 40 mg ta blet RxNorm: 175601 1/2 Tablet(s) PO QHS 08/01/2015 12/14/2017 Inactive Trazadone 100mg 100 mg RxNorm: 1 PO daily 08/01/2015 11/27/2015 Inactive Trazadone 100mg 100 mg RxNorm: 1 PO daily 08/01/2015 05/04/2018 Inactive atenolol 50 mg tablet RxNorm: 793010 1 Tablet(s) PO daily 08/01/2015 10/29/2015 Inactive ibuprofen 800 mg tablet RxNorm: 010731 1 Tablet(s) PO BID -TID No Start Date Active Fish Oil 360 mg-1,20 0 mg capsule RxNorm: 647393 1 Capsule(s) PO BID No Start Date Active Zyrtec 10 mg tablet RxNorm: 9033846 1 Tablet(s) PO daily No Start Date Active pravastatin 40 mg ta blet RxNorm: 954989 1/2 Tablet(s) PO QHS No Start Date 07/31/2015 Inactive Benadryl Allergy 25 mg tablet RxNorm: 5055429 1 Tablet(s) PO daily No Start Date 07/19/2018 Inactive Adderall 30 mg tablet RxNorm: 433927 2 Tablet(s) PO daily No Start Date 01/26/2018 Inactive Aspirin Low Dose 81 mg tablet,delayed release RxNorm: 114999 1 Tablet(s) PO BID No Start Date 07/19/2018 Inactive Singulair 10 mg tablet RxNorm: 210497 1 Tablet(s) PO daily No Start Date 05/09/2018 Inactive cyclobenzaprine 10 m g tablet RxNorm: 741975 1 Tablet(s) PO TID as needed muscle spasms No Start Date 02/21/2018 Inactive Trazadone 100mg 100 mg RxNorm: 1 PO daily No Start Date 07/31/2015 Inactive clindamycin 1 %-arthur oyl peroxide 5 % topical gel RxNorm: 883336 TOP APPLY TO AFFECTED AREA(S) ON SERNA TWO TIMES A DAY No Start Date 11/16/2018 Inactive hydrocortisone 2.5 % topical cream RxNorm: 649270 1 Application TOP BID No Start Date 07/20/2018 Inactive alprazolam 1 mg tablet RxNorm: 159914 2 Tablet(s) PO daily No Start Date 12/14/2017 Inactive tramadol 50 mg tablet RxNorm: 807100 1-2 Tablet(s) PO Q6 as needed No Start Date 08/17/2018 Inactive Vitamin D2 50,000 un it capsule RxNorm: 6323918 1 Capsule(s) PO QW No Start Date 05/17/2018 Inactive pantoprazole 40 mg t ablet,delayed release RxNorm: 690997 1 Tablet(s) PO BID No Start Date 12/22/2017 Inactive atenolol 50 mg tablet RxNorm: 042652 1 Tablet(s) PO daily No Start Date 07/31/2015 Inactive paroxetine 20 mg tablet RxNorm: 427654 2 Tablet(s) PO QHS No Start Date 07/31/2015 Inactive Medication Administered Medication Codes Instruc tions Start Date Status testosterone cypionate 200 mg/mL intramuscular oil RxNorm: 7100811 1.25Milliliter 12/29/2018 No longer Active testosterone cypionate 200 mg/mL intramuscular oil RxNorm: 1628009 Milliliter 12/16/2018 No longer Active testosterone cypionate 200 mg/mL intramuscular oil RxNorm: 9036370 1Milliliter 11/15/2018 No longer Active testosterone cypionate 200 mg/mL intramuscular oil RxNorm: 832909 Milliliter 09/28/2018 No longer Active testosterone cypionate 200 mg/mL intramuscular oil RxNorm: 461366 Milliliter 09/16/2018 No longer Active testosterone cypionate 200 mg/mL intramuscular oil RxNorm: 309917 1Milliliter 09/02/2018 No longer Active testosterone cypionate 200 mg/mL intramuscular oil RxNorm: 205863 Milliliter 08/19/2018 No longer Active testosterone cypionate 200 mg/mL intramuscular oil RxNorm: 502105 Milliliter 07/15/2018 No longer Active testosterone cypionate 200 mg/mL intramuscular oil RxNorm: 419524 Milliliter 06/17/2018 No longer Active testosterone cypionate 200 mg/mL intramuscular oil RxNorm: 138055 Milliliter 05/21/2018 No longer Active ceftriaxone 500 mg solution for injection RxNorm: 9814721 08/03/2015 No longer A ctive Immunizations Vaccine [...] Observation Code Item Item Code Result Date Tsh 223507 TSH 1.190 uIU/mL 12/17/2018 Lipid Panel 20338 CHOLES TEROL 227 mg/dL 12/17/2018 Lipid Panel 09765 TRIGLY CERIDES 229 mg/dL 12/17/2018 Lipid Panel 10798 HDL 41 mg/dL 12/17/2018 Lipid Panel 60480 CHOLES TEROL/HDL 5.54 12/17/2018 Lipid Panel 11204 LDL (C ALCULATED) 140 mg/dL 12/17/2018 Lipid Panel 15982 LDL/HDL 3.41 12/17/2018 Lipid Panel 25548 INTERP RETATION 12/17/2018 Cbc With Differential/Platelet 52093 WBC 5.61 thou/uL 9 Cbc With Differential/Platelet 10888 RBC 5.53 mil/uL 12/17/2018 Cbc With Differential/Platelet 63333 HEMOGLOBIN 15.4 g/dL 12/17/2018 Cbc With Differential/Platelet 57898 HEMATOCRIT 48.1 % 12/17/2018 Cbc With Differential/Platelet 31480 MCV 87.0 fL 12/17/2018 Cbc With Differential/Platelet 31941 MCH 27.8 pg 12/17/2018 Cbc With Differential/Platelet 86451 MCHC 32.0 g/dL 12/17/2018 Cbc With Differential/Platelet 21992 RDW-CV 13.9 % 12/17/2018 Cbc With Differential/Platelet 18785 PLATELET COUNT 294 thou/uL 12/17/2018 Cbc With Differential/Platelet 10422 NEUTROPHIL % 71.2 % 12/17/2018 Cbc With Differential/Platelet 04029 LYMPHOCYTE % 22.2 % 12/17/2018 Cbc With Differential/Platelet 65720 MONOCYTE % 5.4 % 12/17/2018 Cbc With Differential/Platelet 46414 EOS % 0.9 % 12/17/2018 Cbc With Differential/Platelet 02403 BASO % 0.4 % 12/17/2018 Cbc With Differential/Platelet 93400 NEUTROPHIL ABS # 3.99 thou/uL 12/17/2018 Cbc With Differential/Platelet 07872 LYMPH ABS # 1.25 thou/uL 12/17/2018 Cbc With Differential/Platelet 92537 MONOCYTE ABS # 0.30 thou/uL 12/17/2018 Cbc With Differential/Platelet 02714 EOS ABS # 0.05 thou/uL 9 Cbc With Differential/Platelet 48569 BASO ABS # 0.02 thou/uL 12/17/2018 Testosterone Serum 414213 TESTOSTERONE 96.8 ng/dL 12/17/2018 Comp. Metabolic Panel (14) 12435 GLUCOSE 117 mg/dL 12/17/2018 Comp. Metabolic Panel (14) 05043 BUN 17 mg/dL 12/17/2018 Comp. Metabolic Panel (14) 34510 CREATININE 0.99 mg/dL 12/17/2018 Comp. Metabolic Panel (14) 77910 SODIUM 137 mmol/L 12/17/2018 Comp. Metabolic Panel (14) 10796 POTASSIUM 4.6 mmol/L 12/17/2018 Comp. Metabolic Panel (14) 24059 CHLORIDE 102 mmol/L 12/17/2018 Comp. Metabolic Panel (14) 90284 CARBON DIOXIDE 21 mmol/L 12/17/2018 Comp. Metabolic Panel (14) 19872 CALCIUM 9.4 mg/dL 12/17/2018 Comp. Metabolic Panel (14) 71703 TOTAL PROTEIN 7.5 g/dL 12/17/2018 Comp. Metabolic Panel (14) 73772 ALBUMIN 5.1 g/dL 12/17/2018 Comp. Metabolic Panel (14) 96093 ALKALINE PHOSPHATASE 79 U/L 12/17/2018 Comp. Metabolic Panel (14) 40850 TOTAL BILIRUBIN 0.5 mg/dL 12/17/2018 Comp. Metabolic Panel (14) 14300 SGOT (AST) 34 U/L 12/17/2018 Comp. Metabolic Panel (14) 98318 SGPT (ALT) 40 U/L 12/17/2018 Comp. Metabolic Panel (14) 71875 eGFR (mL/min/1.73m2) 115 12/17/2018 Comp. Metabolic Panel (14) 90664 INTERPRETATION 12/17/2018 Testosterone Serum 362277 TESTOSTERONE 44.1 ng/dL 08/18/2018 Hemoglobin 280238 WBC 7.62 thou/uL 08/17/2018 Hemoglobin 269277 RBC 5.23 mil/uL 08/17/2018 Hemoglobin 902403 HEMOGL OBIN 15.0 g/dL 08/17/2018 Hemoglobin 084361 HEMATO CRIT 45.0 % 08/17/2018 Hemoglobin 751046 MCV 86.0 fL 08/17/2018 Hemoglobin 322314 MCH 28.7 pg 08/17/2018 Hemoglobin 449558 MCHC 33.3 g/dL 08/17/2018 Hemoglobin 488240 RDW-CV 12.9 % 08/17/2018 Hemoglobin 768837 PLATEL ET COUNT 313 thou/uL 08/17/2018 Hematocrit 046558 WBC 7.62 thou/uL 08/17/2018 Hematocrit 750429 RBC 5.23 mil/uL 08/17/2018 Hematocrit 752619 HEMOGL OBIN 15.0 g/dL 08/17/2018 Hematocrit 821753 HEMATO CRIT 45.0 % 08/17/2018 Hematocrit 006047 MCV 86.0 fL 08/17/2018 Hematocrit 632050 MCH 28.7 pg 08/17/2018 Hematocrit 739036 MCHC 33.3 g/dL 08/17/2018 Hematocrit 634271 RDW-CV 12.9 % 08/17/2018 Hematocrit 184109 PLATEL ET COUNT 313 thou/uL 08/17/2018 Culture Mrsa 336426 MRSA CULTURE SEE NOTES 06/21/2018 Comp. Metabolic Panel (14) 82625 GLUCOSE 101 mg/dL 06/18/2018 Comp. Metabolic Panel (14) 74041 BUN 18 mg/dL 06/18/2018 Comp. Metabolic Panel (14) 69807 CREATININE 0.99 mg/dL 06/18/2018 Comp. Metabolic Panel (14) 30299 SODIUM 141 mmol/L 06/18/2018 Comp. Metabolic Panel (14) 82550 POTASSIUM 4.3 mmol/L 06/18/2018 Comp. Metabolic Panel (14) 90122 CHLORIDE 103 mmol/L 06/18/2018 Comp. Metabolic Panel (14) 18602 CARBON DIOXIDE 23 mmol/L 06/18/2018 Comp. Metabolic Panel (14) 48939 CALCIUM 9.8 mg/dL 06/18/2018 Comp. Metabolic Panel (14) 82243 TOTAL PROTEIN 7.1 g/dL 06/18/2018 Comp. Metabolic Panel (14) 13345 ALBUMIN 5.2 g/dL 06/18/2018 Comp. Metabolic Panel (14) 11122 ALKALINE PHOSPHATASE 65 U/L 06/18/2018 Comp. Metabolic Panel (14) 50220 TOTAL BILIRUBIN 0.6 mg/dL 06/18/2018 Comp. Metabolic Panel (14) 25609 SGOT (AST) 21 U/L 06/18/2018 Comp. Metabolic Panel (14) 42492 SGPT (ALT) 24 U/L 06/18/2018 Comp. Metabolic Panel (14) 20207 eGFR (mL/min/1.73m2) 115 06/18/2018 Comp. Metabolic Panel (14) 75853 INTERPRETATION 06/18/2018 Cbc With Differential/Platelet 07371 WBC 4.55 thou/uL 8 Cbc With Differential/Platelet 76501 RBC 5.13 mil/uL 06/18/2018 Cbc With Differential/Platelet 43857 HEMOGLOBIN 14.4 g/dL 06/18/2018 Cbc With Differential/Platelet 09021 HEMATOCRIT 44.1 % 06/18/2018 Cbc With Differential/Platelet 87229 MCV 85.9 fL 06/18/2018 Cbc With Differential/Platelet 54625 MCH 28.1 pg 06/18/2018 Cbc With Differential/Platelet 07462 MCHC 32.7 g/dL 06/18/2018 Cbc With Differential/Platelet 48758 RDW-CV 13.4 % 06/18/2018 Cbc With Differential/Platelet 09043 PLATELET COUNT 287 thou/uL 06/18/2018 Cbc With Differential/Platelet 66590 NEUTROPHIL % 53.9 % 06/18/2018 Cbc With Differential/Platelet 98030 LYMPHOCYTE % 36.1 % 06/18/2018 Cbc With Differential/Platelet 13968 MONOCYTE % 7.4 % 06/18/2018 Cbc With Differential/Platelet 53226 EOS % 1.9 % 06/18/2018 Cbc With Differential/Platelet 37003 BASO % 0.8 % 06/18/2018 Cbc With Differential/Platelet 25147 NEUTROPHIL ABS # 2.45 thou/uL 06/18/2018 Cbc With Differential/Platelet 20267 LYMPH ABS # 1.64 thou/uL 06/18/2018 Cbc With Differential/Platelet 04672 MONOCYTE ABS # 0.34 thou/uL 06/18/2018 Cbc With Differential/Platelet 61406 EOS ABS # 0.09 thou/uL 8 Cbc With Differential/Platelet 17969 BASO ABS # 0.04 thou/uL 06/18/2018 Review [...] Procedure Codes Date THER/PROPH/DIAG INJ SC/IM CPT-4: 33823 12/29/2018 THER/PROPH/DIAG INJ SC/IM CPT-4: 79189 12/16/2018 THER/PROPH/DIAG INJ SC/IM CPT-4: 49222 11/15/2018 THER/PROPH/DIAG INJ SC/IM CPT-4: 01004 09/28/2018 THER/PROPH/DIAG INJ SC/IM CPT-4: 67321 09/16/2018 THER/PROPH/DIAG INJ SC/IM CPT-4: 07115 09/02/2018 THER/PROPH/DIAG INJ SC/IM CPT-4: 90873 08/19/2018 IMMUNIZATION ADMIN CPT- 4: 99879 08/02/2018 FLU VAC NO PRSV 4 VA L 3 YRS+ CPT-4: 96234 08/02/2018 THER/PROPH/DIAG INJ SC/IM CPT-4: 97314 07/15/2018 THER/PROPH/DIAG INJ SC/IM CPT-4: 27527 06/17/2018 THER/PROPH/DIAG INJ SC/IM CPT-4: 42155 05/21/2018 THER/PROPH/DIAG INJ SC/IM CPT-4: 97498 08/03/2015 ROCEPHIN, PER 250 MG CPT-4: J0696 08/03/2015 Vital Signs Date Vital 12/29/2018 Blood Pressure 1: 144/90 Code: 8480-6 BMI: 34.8 Code: 05950-1 Heart Rate 1: 91 bpm Height: 5'7" SpO2: 98% Weight: 222 lbs 12/20/2018 Blood Pressure 1: 124/76 Code: 8480-6 BMI: 35.4 Code: 04213-8 Heart Rate 1: 79 bpm Height: 5'7" SpO2: 99% Weight: 226 lbs 12/16/2018 Blood Pressure 1: 160/90 Code: 8480-6 BMI: 35.4 Code: 40414-2 Heart Rate 1: 90 bpm Height: 5'7" SpO2: 95% Weight: 226 lbs 11/01/2018 Blood Pressure 1: 146/82 Code: 8480-6 BMI: 36.0 Code: 89525-3 Heart Rate 1: 87 bpm Height: 5'7" SpO2: 98% Weight: 230 lbs 09/24/2018 Blood Pressure 1: 140/82 Code: 8480-6 BMI: 36.0 Code: 86070-0 Heart Rate 1: 86 bpm Height: 5'7" SpO2: 98% Temperature: 37.1 (C ) / 98.7 (F) Weight: 230 lbs 08/16/2018 Blood Pressure 1: 148/82 Code: 8480-6 Blood Pressure 2: 157/92 Code: 8480-6 BMI: 35.9 Code: 63582-9 Heart Rate 1: 72 bpm Height: 5'7" SpO2: 96% Weight: 229 lbs 08/02/2018 Blood Pressure 1: 142/86 Code: 8480-6 BMI: 35.2 Code: 93759-1 Heart Rate 1: 101 bpm Height: 5'7" SpO2: 97% Weight: 225 lbs 05/31/2018 Blood Pressure 1: 134/82 Code: 8480-6 BMI: 35.4 Code: 56535-4 Heart Rate 1: 91 bpm Height: 5'7" SpO2: 96% Weight: 226 lbs 05/20/2018 Blood Pressure 1: 160/100 Code: 8480-6 BMI: 35.2 Code: 30182-2 Heart Rate 1: 89 bpm Height: 5'7" SpO2: 98% Weight: 225 lbs 05/10/2018 Blood Pressure 1: 124/70 Code: 8480-6 BMI: 35.1 Code: 44626-2 Heart Rate 1: 93 bpm Height: 5'7" SpO2: 99% Weight: 224 lbs 01/15/2018 Blood Pressure 1: 142/92 Code: 8480-6 BMI: 36.3 Code: 19174-4 Heart Rate 1: 77 bpm Height: 5'7" SpO2: 98% Weight: 232 lbs 12/15/2017 Blood Pressure 1: 156/98 Code: 8480-6 BMI: 36.2 Code: 84188-0 Heart Rate 1: 87 bpm Height: 5'7" [...] Encounters Encounter Performer Loca tion Codes Date ([id number]) [id number] EST. 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 PATIENT, LEVEL III Diagnosis: Pain in right arm[ICD10: M79.601] Sonia Gonzalez MD, [facility] CPT-4: 55994 12/20/2018 ([id number]) [id number] EST. 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 P ATIENT, LEVEL IV Diagnosis: Essential (primary) hypertension[ICD10: I10] Diagnosis: Cervicalgia[ICD10: M54.2] Diagnosis: Spinal stenosis, thoracic region[ICD10: M48.04] Diagnosis: Testicular hypofunction[ICD10: E29.1] Radha Gonzalez MD, [facility] CPT-4: 94231 11/01/2018 [id number] EST. PATIENT, LEVEL III Diagnosis: Acute upper respiratory infection, unspecified[ICD10: J06.9] Diagnosis: Other allergic rhinitis[ICD10: J30.89] Sonia Gonzalez MD, [facility] CPT-4: 71916 09/24/2018 ([id number]) 72821 EST. 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 P ATIENT, LEVEL IV Diagnosis: Essential (primary) hypertension[ICD10: I10] Diagnosis: Cervicalgia[ICD10: M54.2] Radha Gonzalez MD, [facility] CPT-4: 95027 05/31/2018 ([id number]) 17169 EST. 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] Diagnosis: Obstructive sleep apnea (adult) (pediatric)[ICD10: G47.33] Radha Gonzalez MD, [facility] CPT-4: 45418 01/15/2018 ([id number]) PREV VISIT N EW AGE 40-64 Diagnosis: Encounter for general adult medical examination with abnormal findings[ICD10: Z00.01] Radha Gonzalez MD, [facility] CPT-4: 86009 12/15/2017 ([id number]) OFFICE/OUTPA TIENT VISIT NEW Diagnosis: Laceration of thumb[ICD9: 883.0] Radha Gonzalez MD, [facility] CPT-4: 28707 08/03/2015 Plan of Care Planned Activity Notes C odes Status Date Visit Plan: Chronic neck and back p ain - pt has chronic pain - has been maintained on current medications, has not sought out other medications, only uses PRN pain medications as directed, and understands the co nsequences of over-medication. Hypogonadism - continue with testosterone injections. 12/29/2018 Appointment: Radha Gonzalez WPtel: [phone] [facility] (15 min) Moderate 12/29/2018 Patient Education: Patient Medication Summary Completed 12/29/2018 Patient Education: .Cervicalgia Neck Pain Completed 12/29/2018 Patient Education: Patient Medication Summary Completed 12/21/2018 Care Plan: %Hba1C add to blood from 12/17 LOINC : 06349-7 Pending 12/21/2018 Visit Plan: Right arm pain - dayna deformity noted - will refer to ortho - The pt is to use prn antiinflammatories to manage acute pain. The patient is to call the office if the pain is worsening or does not improve. 12/20/2018 Appointment: Sonia Potter WPtel: [facility] (15 min) Moderate 12/20/2018 Patient Education: Patient [...] testosterone. 12/16/2018 Appointment: Radha Gonzalez WPtel: [phone] [facility] (15 min) Moderate 12/16/2018 Patient Education: [...] needed. 11/01/2018 Appointment: Radha Gonzalez WPtel: [phone] [facility] (15 min) Moderate 11/01/2018 Patient Education: Patient [...] WPtel: [phone] [facility] (15 min) Moderate 09/24/2018 Patient Education: Patient [...] at home. Multiple symptoms - referral to [facility] - appt in September 30, 2018. 08/16/2018 App[facility]ment: [phone] (15 min) Moderate 08/16/2018 Patient Education: Patient [...] at home. Multiple symptoms - referral to [facility] - rashes, hypogonadism, optic neuritis - all points to possible autoimmune syndrome. Spinal stenosis - of thoracic region - pt to talk to Dr. Dunaway about referral to a different specialist for his mid- back. Hypogonadism - continue with testosterone. Flu shot given today in clinic. 08/02/2018 Appointment: Rad[facility] Gonzalez [phone] [place] (15 min) Moderate 08/02/2018 Patient Education: Patient Medication Summary Completed 08/02/2018 Care Plan: Referral Order SNOMED-CT : 541654340 Pending 08/02/2018 Appointment: Injection 07/15/2018 Patient Education: [...] spine stenosis - referral to [facility] physical therapy. I have also recommended a Referral to Dr. Dunaway. I have called and talked to Dr. Dunaway - he looked at the pt's imaging and agrees that getting the pt in to be seen soon would be a preferred option. 05/31/2018 Appointment: Radha Gonzalez WPtel: [phone] [facility] [place] (15 min) Moderate 05/31/2018 Patient Education: Patient Medication Summary Completed 05/31/2018 Care Plan: Referral Order SNOMED-CT : 430702373 Pending 05/31/2018 Care Plan: Referral Order SNOMED-CT : 242940725 Pending 05/31/2018 Appointment: Injection 05/21/2018 Patient Education: Patient Medication Summary Completed 05/21/2018 Care Plan: Referral Order SNOMED-CT : 734584751 Pending 05/21/2018 Visit Plan: Cervical and thoracic s tenosis with spinal cord compression -refer for appt with Dr Marr -rx for hydrocodone for pain-start gabapentin at bedtime Soft tissue lesion-left chest-schedule CTfor further evaluation HTN-elevated today-hold adderall-monitor blood pressure 05/20/2018 Appointment: Hannah Simons WPtel: [phone] [place] (15 min) Moderate 05/20/2018 Patient Education: [...] this. 05/10/2018 Appointment: Sonia Potter WPtel: [phone] [facility] [place] (15 min) Moderate 05/10/2018 Patient Education: Patient Medication Summary Completed 05/10/2018 Visit Plan: Sleep apnea - rx for cp ap - actually autopap was recommended and pt given rx today. HTN - referral to dr. kapoor - pt needs stress testing. 01/15/2018 Appointment: Rad[facility] Gonzalez [facility]: [phone] [place] (15 min) Moderate 01/15/2018 Patient Education: Patient Medication Summary Completed 01/15/2018 Care Plan: Referral Order SNOMED-CT : [id number] Pending 01/15/2018 Visit Plan: Well Adult - [...] month. 12/15/2017 Appointment: Rad[facility] Gonzalez [facility]: [phone] [place] New Patient 12/15/2017 Patient Education: Patient Medication Summary Completed 12/15/2017 Care Plan: CHEST X-RAY 2VW FRONTAL&LATL LOINC : 45800-3 Pending 12/15/2017 Appointment: Radha Gonzalez [facility]: [phone] [facility] [place] (15 min) Moderate 12/08/2017 Appointment: (S) New Patient 08/13/2015 Visit Plan: steri strip placed on t humb of right hand - antibiotic shot given to patient and rx for keflex 500mg qid x 10 days given to the patient to fill prior to his trip to [place] 08/03/2015 Patient Education: Patient Medication Summary Completed 08/03/2015 Referral: External, Ordering Provider 08/03 Referral info faxed to [facility]. Patient informed to be expecting a call from them with appt info Appointment Requested Referral: External, Ordering Provider Referral Appointment Requested Referral: External, Ordering Provider I called today; they will call him to schedule. Completed Referral: Armani Dunaway Referral Appointment Requested Referral: Mayte Kapoor Referral Appointment Requested Referral[facility] Ref[facility] Appointment Requested Referral: External, Ordering [...] at home. Multiple symptoms - referral to [facility] - rashes, hypogonadism, optic neuritis - [...] at home. Multiple symptoms - referral to [facility] - appt in September 30, 2018. [...] to fill prior to his trip to [place] will refill meds for 90 days Will [...] spine stenosis - referral to [facility] physical therapy. I have also recommended a Referral to Dr. Dunaway. I have called and talked to Dr. Dunaway - he looked at the pt's imaging and agrees that getting the pt in to be seen soon would be a preferred option.
[2020-04-28 00:44] LABS: BASOPHILS % (AUTO) 0 % (0-10); EOSINOPHILS # (AUTO) 0.2 10^3/uL (0.0-0.3); EOSINOPHILS % (AUTO) 1 % (0-10); HEMATOCRIT 49 % (40-54); HEMOGLOBIN 17.1 G/DL (13.3-17.7); LYMPHOCYTES # (AUTO) 0.8 X 10^3 (1.0-4.0); LYMPHOCYTES % (AUTO) 4 % (12-44); MEAN CORPUSCULAR HEMOGLOBIN 29 PG (25-34); MEAN CORPUSCULAR HGB CONC 35 G/DL (32-36); MEAN CORPUSCULAR VOLUME 84 FL (80-99); MONOCYTES # (AUTO) 1.6 X 10^3 (0.0-1.0); MONOCYTES % (AUTO) 8 % (0-12); NEUTROPHILS # (AUTO) 17.7 X 10^3 (1.8-7.8); NEUTROPHILS % (AUTO) 87 % (42-75); PLATELET COUNT 302 10^3/uL (130-400); RED CELL DISTRIBUTION WIDTH 14.9 % (10.0-14.5); WHITE BLOOD COUNT 20.3 10^3/uL (4.3-11.0)
--- OUTSIDE RECORDS SUMMARY | 2020-04-28 00:44 | XMS REPORT | CCD ---
Author Author Nilton Gonzalez Organization [facility] Address [address] [place] [address] Phone Care Team Providers [facility] Name Role Phone PP Unavailable CCM Unavailable Summary Purpose Interface Exchange Insurance Providers Payer name Policy type / Coverage type Covered democrat ID Effective Begin Date Effective End Date [employer] Insurance [id number] 2018 Unknown Family history Brother Diagnosis Age At Onset Alcoholism Unknown Father Diagnosis Age At Onset Hypercholesterolemia Unknown Social History Social History Element Codes Description Effective Dates Marital status Unknown S chanda 12/15/2017 Number of children Unknown 1 12/15/2017 Employment Unknown Curre ntly employed [employer] at [employer] 12/15/[address]: 907580435 Never smoker 12/15/[address]: 395762 Currently drinks alcohol <1 per week 12/15/2017 [...] 5 mg-fanny taminophen 325 mg tablet RxNorm: 797373 1-2 Tablet(s) PO Q6 a s needed 12/29/2018 No Stop Date Active Adderall 30 mg tablet RxNorm: 874210 2 Tablet(s) PO daily 12/29/2018 01/27/2019 Active atenolol 50 mg tablet RxNorm: 707558 1.5 Tablet(s) PO BID 12/29/2018 12/23/2019 Active hydrocodone 5 mg-fanny taminophen 325 mg tablet RxNorm: 904574 1-2 Tablet(s) PO Q6 a s needed 12/29/2018 12/28/2018 Inactive testosterone cypiona te 200 mg/mL intramuscular oil RxNorm: 1387858 1.25 Milliliter(s) IM 12/29/2018 12/29/2018 Inactive hydrocodone 5 mg-fanny taminophen 325 mg tablet RxNorm: 743070 1 Tablet(s) PO TID NV N 12/28/2018 12/28/2018 In active testosterone cypiona te 200 mg/mL intramuscular oil RxNorm: 8867681 1.25 Milliliter(s) IM 2 x month 12/22/2018 04/12/2019 Active gabapentin 300 mg ca psule RxNorm: 470150 1 Capsule(s) PO QID 12/16/2018 12/10/2019 Active Voltaren 1 % topical gel RxNorm: 344231 2 Gram(s) APPLY TOPIC ALLY four TIMES A DAY 12/16/2018 01/20/2019 Ac tive testosterone cypiona te 200 mg/mL intramuscular oil RxNorm: 8554871 Milliliter(s) IM 12/16/2018 12/16/2018 In active trazodone 100 mg tablet RxNorm: 569176 TAKE ONE TABLET BY MOUTH EVERY NIGHT AT BEDTIME 12/07/2018 06/04/2019 Active hydrocodone 5 mg-fanny taminophen 325 mg tablet RxNorm: 409197 1 Tablet(s) PO TID NV N 11/29/2018 12/27/2018 In active Adderall 30 mg tablet RxNorm: 712244 2 Tablet(s) PO daily 11/29/2018 12/28/2018 Inactive clindamycin 1 %-arthur oyl peroxide 5 % topical gel RxNorm: 251882 TOP APPLY TO AFFECTED AREA(S) ON SERNA TWO TIMES A DAY 11/17/2018 No Stop Date Active testosterone cypiona te 200 mg/mL intramuscular oil RxNorm: 2043111 1 Milliliter(s) IM 2 x month 11/17/2018 12/21/2018 Inactive Zorvolex 35 mg capsule RxNorm: 8695385 1 Capsule(s) PO TID as needed for pain 11/15/2018 05/13/2019 Ac tive ketoconazole 2 % top ical cream RxNorm: 545344 APPLY ONE GRAM TOPICA LLY TWICE A DAY 11/15/2018 11/29/2018 In active testosterone cypiona te 200 mg/mL intramuscular oil RxNorm: 6029440 1 Milliliter(s) IM 11/15/2018 11/14/2018 Inactive hydrocodone 5 mg-fanny taminophen 325 mg tablet RxNorm: 564016 1 Tablet(s) PO TID NV N 11/02/2018 11/28/2018 In active Singulair 10 mg tablet RxNorm: 570859 1 Tablet(s) PO daily 11/01/2018 07/28/2019 Active testosterone cypiona te 200 mg/mL intramuscular oil RxNorm: 9603625 1 Milliliter(s) IM 2 x month 11/01/2018 11/16/2018 Inactive Adderall 30 mg tablet RxNorm: 772792 2 Tablet(s) PO daily 10/29/2018 11/27/2018 Inactive gabapentin 300 mg ca psule RxNorm: 974481 1 Capsule(s) PO BID m ay take TID 10/19/2018 12/15/2018 In active gabapentin 300 mg ca psule RxNorm: 047011 1 Capsule(s) PO BID m ay take TID 10/19/2018 10/18/2018 In active alprazolam 1 mg tablet RxNorm: 089677 1 Tablet(s) PO TID as needed 10/15/2018 12/13/2018 Inactive testosterone cypiona te 200 mg/mL intramuscular oil RxNorm: 861298 Milliliter(s) IM 09/28/2018 09/28/2018 In active pravastatin 40 mg ta blet RxNorm: 920976 TAKE ONE TABLET BY MO UT EVERY NIGHT AT BEDTIME 09/27/2018 09/21/2019 Active Tamiflu 75 mg capsule RxNorm: 045407 1 Capsule(s) PO BID 09/24/2018 09/28/2018 Inactive Adderall 30 mg tablet RxNorm: 447269 2 Tablet(s) PO daily 09/20/2018 10/19/2018 Inactive hydrocodone 5 mg-fanny taminophen 325 mg tablet RxNorm: 575347 1 Tablet(s) PO TID NV N 09/20/2018 11/01/2018 In active testosterone cypiona te 200 mg/mL intramuscular oil RxNorm: 518390 Milliliter(s) IM 09/16/2018 09/16/2018 In active testosterone cypiona te 200 mg/mL intramuscular oil RxNorm: 176070 1 Milliliter(s) IM 09/02/2018 09/02/2018 Inactive testosterone cypiona te 200 mg/mL intramuscular oil RxNorm: 884755 Milliliter(s) IM 08/19/2018 08/19/2018 In active Adderall 30 mg tablet RxNorm: 983281 2 Tablet(s) PO daily 08/18/2018 09/16/2018 Inactive tramadol 50 mg tablet RxNorm: 628928 1-2 Tablet(s) PO Q6 as needed 08/18/2018 01/09/2019 In active Dexilant 60 mg capsu le, delayed release RxNorm: 295624 1 Capsule(s) PO BID 08/17/2018 08/11/2019 Ac tive ketoconazole 2 % top ical cream RxNorm: 397334 1 Gram(s) TOP BID 08/17/2018 08/26/2018 Inactive Zorvolex 35 mg capsule RxNorm: 6941662 1 Capsule(s) PO TID as needed for pain 08/17/2018 08/16/2018 In active atenolol 50 mg tablet RxNorm: 614235 1 Tablet(s) PO BID 08/17/2018 12/28/2018 Inactive Zorvolex 35 mg capsule RxNorm: 3792249 1 Capsule(s) PO TID as needed for pain 08/17/2018 11/14/2018 In active ketoconazole 2 % top ical cream RxNorm: 518168 1 Gram(s) TOP BID 08/02/2018 08/11/2018 Inactive hydrocortisone 2.5 % topical cream RxNorm: 488135 1 Application TOP BID 07/21/2018 No Stop Date Active Adderall 30 mg tablet RxNorm: 286857 2 Tablet(s) PO daily 07/20/2018 08/17/2018 Inactive testosterone cypiona te 200 mg/mL intramuscular oil RxNorm: 708572 Milliliter(s) IM 07/15/2018 07/15/2018 In active alprazolam 1 mg tablet RxNorm: 401440 1 Tablet(s) PO TID as needed 07/12/2018 09/07/2018 Inactive hydrocodone 5 mg-fanny taminophen 325 mg tablet RxNorm: 696724 1 Tablet(s) PO TID NV N 06/30/2018 09/19/2018 In active pravastatin 40 mg ta blet RxNorm: 483381 1 Tablet(s) PO QHS 06/18/2018 09/15/2018 Inactive Adderall 30 mg tablet RxNorm: 974238 2 Tablet(s) PO daily 06/18/2018 07/17/2018 Inactive testosterone cypiona te 200 mg/mL intramuscular oil RxNorm: 268048 Milliliter(s) IM 06/17/2018 06/17/2018 In active Voltaren 1 % topical gel RxNorm: 544527 APPLY TOPICALLY TWO T IMES A DAY 06/16/2018 07/21/2018 In active Vitamin D2 50,000 un it capsule RxNorm: 6054582 1 Capsule(s) PO QW 05/21/2018 No Stop Date Active Adderall 30 mg tablet RxNorm: 596148 2 Tablet(s) PO daily 05/21/2018 06/17/2018 Inactive testosterone cypiona te 200 mg/mL intramuscular oil RxNorm: 735549 Milliliter(s) IM 05/21/2018 05/21/2018 In active testosterone cypiona te 200 mg/mL intramuscular oil RxNorm: 1497089 1 Milliliter(s) IM monthly 05/20/2018 09/16/2018 Inactive testosterone cypiona te 200 mg/mL intramuscular oil RxNorm: 118344 1 Milliliter(s) IM monthly 05/20/2018 05/19/2018 Inactive hydrocodone 5 mg-fanny taminophen 325 mg tablet RxNorm: 308714 1 Tablet(s) PO TID NV N 05/20/2018 06/29/2018 In active Vitamin D2 50,000 un it capsule RxNorm: 5756105 1 Capsule(s) PO QW 05/18/2018 05/20/2018 Inactive triamcinolone aceton destin 0.025 % topical cream RxNorm: 9615191 1 Application TOP BI D 05/13/2018 No Stop Date Active Dexilant 60 mg capsu le, delayed release RxNorm: 480627 1 Capsule(s) PO BID 05/13/2018 08/16/2018 In active Zorvolex 35 mg capsule RxNorm: 5681826 1 Capsule(s) PO TID as needed for pain 05/12/2018 08/09/2018 In active Voltaren 1 % topical gel RxNorm: 599782 1 Application TOP BID 05/12/2018 06/15/2018 Inactive acyclovir 400 mg tablet RxNorm: 405344 1 Tablet(s) PO TID as needed take at ons et of symptoms of cold sores x 5 days 05/10/2018 No Stop Date Active paroxetine 20 mg tablet RxNorm: 9312606 2 Tablet(s) PO QHS 05/10/2018 10/31/2019 Active ProAir HFA 90 mcg/ac tuation aerosol inhaler RxNorm: 960718 1 Puff(s) INH QID as needed 05/10/2018 No Stop Date Active baclofen 20 mg tablet RxNorm: 719504 1 Tablet(s) PO TID as needed muscle spas ms 05/10/2018 06/08/2018 In active Singulair 10 mg tablet RxNorm: 387037 1 Tablet(s) PO daily 05/10/2018 08/07/2018 Inactive atenolol 50 mg tablet RxNorm: 066457 1 Tablet(s) PO BID 05/10/2018 08/07/2018 Inactive triamcinolone aceton destin 0.025 % topical cream RxNorm: 1131342 1 Application TOP BI D 05/10/2018 05/12/2018 In active tramadol 50 mg tablet RxNorm: 185038 1 Tablet(s) PO TID as needed 05/10/2018 05/19/2018 Inactive Dexilant 60 mg capsu le, delayed release RxNorm: 289894 1 Capsule(s) PO daily 05/10/2018 05/12/2018 In active alprazolam 1 mg tablet RxNorm: 046059 1 Tablet(s) PO TID as needed 05/10/2018 08/06/2018 Inactive trazodone 100 mg tablet RxNorm: 483540 1 Tablet(s) PO QHS 05/10/2018 11/05/2018 Inactive cyclobenzaprine 10 m g tablet RxNorm: 930456 1 Tablet(s) PO TID as needed muscle spasms 05/07/2018 07/12/2018 Inactive trazodone 100 mg tablet RxNorm: 690675 1 Tablet(s) PO QHS 05/07/2018 05/09/2018 Inactive Adderall 30 mg tablet RxNorm: 062360 2 Tablet(s) PO daily 04/19/2018 05/18/2018 Inactive alprazolam 1 mg tablet RxNorm: 134413 1 Tablet(s) PO BID 04/19/2018 05/09/2018 Inactive Adderall 30 mg tablet RxNorm: 616346 2 Tablet(s) PO daily 03/26/2018 04/18/2018 Inactive paroxetine 20 mg tablet RxNorm: 1966303 2 Tablet(s) PO QHS 03/15/2018 05/09/2018 Inactive Adderall 30 mg tablet RxNorm: 160971 2 Tablet(s) PO daily 02/25/2018 03/25/2018 Inactive cyclobenzaprine 10 m g tablet RxNorm: 544209 1 Tablet(s) PO TID as needed muscle spasms 02/22/2018 05/06/2018 Inactive tramadol 50 mg tablet RxNorm: 851008 1 Tablet(s) PO TID as needed 02/22/2018 03/07/2018 Inactive tramadol 50 mg tablet RxNorm: 075244 1 Tablet(s) PO TID as needed 02/22/2018 02/21/2018 Inactive trazodone 100 mg tablet RxNorm: 814254 1 Tablet(s) PO QHS 02/03/2018 05/03/2018 Inactive trazodone 100 mg tablet RxNorm: 092782 1 Tablet(s) PO QHS 02/03/2018 02/02/2018 Inactive Adderall 30 mg tablet RxNorm: 863281 2 Tablet(s) PO daily 01/27/2018 02/18/2018 Inactive acyclovir 400 mg tablet RxNorm: 654837 1 Tablet(s) PO TID as needed take at ons et of symptoms of cold sores x 5 days 01/15/2018 05/09/2018 Inactive Bactrim DS 800 mg-16 0 mg tablet RxNorm: 982832 1 Tablet(s) PO BID 01/11/2018 01/17/2018 Inactive Bactrim DS 800 mg-16 0 mg tablet RxNorm: 803932 1 Tablet(s) PO BID 01/11/2018 01/10/2018 Inactive Dexilant 60 mg capsu le, delayed release RxNorm: 551289 1 Capsule(s) PO daily 12/23/2017 05/09/2018 In active Dexilant 60 mg capsu le, delayed release RxNorm: 145891 1 Capsule(s) PO daily 12/23/2017 12/22/2017 In active atenolol 50 mg tablet RxNorm: 133399 1 Tablet(s) PO BID 12/15/2017 05/09/2018 Inactive alprazolam 1 mg tablet RxNorm: 227807 1-1.5 Tablet(s) PO daily 12/15/2017 04/18/2018 Inactive ceftriaxone 500 mg s olution for injection RxNorm: 8310166 Inj 08/03/2015 08/03/2015 Inactive paroxetine 20 mg tablet RxNorm: 8342492 2 Tablet(s) PO QHS 08/01/2015 10/29/2015 Inactive pravastatin 40 mg ta blet RxNorm: 254690 1/2 Tablet(s) PO QHS 08/01/2015 12/14/2017 Inactive Trazadone 100mg 100 mg RxNorm: 1 PO daily 08/01/2015 11/27/2015 Inactive Trazadone 100mg 100 mg RxNorm: 1 PO daily 08/01/2015 05/04/2018 Inactive atenolol 50 mg tablet RxNorm: 865981 1 Tablet(s) PO daily 08/01/2015 10/29/2015 Inactive ibuprofen 800 mg tablet RxNorm: 028855 1 Tablet(s) PO BID -TID No Start Date Active Fish Oil 360 mg-1,20 0 mg capsule RxNorm: 263069 1 Capsule(s) PO BID No Start Date Active Zyrtec 10 mg tablet RxNorm: 1769911 1 Tablet(s) PO daily No Start Date Active pravastatin 40 mg ta blet RxNorm: 452916 1/2 Tablet(s) PO QHS No Start Date 07/31/2015 Inactive Benadryl Allergy 25 mg tablet RxNorm: 6237545 1 Tablet(s) PO daily No Start Date 07/19/2018 Inactive Adderall 30 mg tablet RxNorm: 098006 2 Tablet(s) PO daily No Start Date 01/26/2018 Inactive Aspirin Low Dose 81 mg tablet,delayed release RxNorm: 848167 1 Tablet(s) PO BID No Start Date 07/19/2018 Inactive Singulair 10 mg tablet RxNorm: 206621 1 Tablet(s) PO daily No Start Date 05/09/2018 Inactive cyclobenzaprine 10 m g tablet RxNorm: 252513 1 Tablet(s) PO TID as needed muscle spasms No Start Date 02/21/2018 Inactive Trazadone 100mg 100 mg RxNorm: 1 PO daily No Start Date 07/31/2015 Inactive clindamycin 1 %-arthur oyl peroxide 5 % topical gel RxNorm: 420352 TOP APPLY TO AFFECTED AREA(S) ON SERNA TWO TIMES A DAY No Start Date 11/16/2018 Inactive hydrocortisone 2.5 % topical cream RxNorm: 077454 1 Application TOP BID No Start Date 07/20/2018 Inactive alprazolam 1 mg tablet RxNorm: 124132 2 Tablet(s) PO daily No Start Date 12/14/2017 Inactive tramadol 50 mg tablet RxNorm: 083828 1-2 Tablet(s) PO Q6 as needed No Start Date 08/17/2018 Inactive Vitamin D2 50,000 un it capsule RxNorm: 7837949 1 Capsule(s) PO QW No Start Date 05/17/2018 Inactive pantoprazole 40 mg t ablet,delayed release RxNorm: 143024 1 Tablet(s) PO BID No Start Date 12/22/2017 Inactive atenolol 50 mg tablet RxNorm: 935171 1 Tablet(s) PO daily No Start Date 07/31/2015 Inactive paroxetine 20 mg tablet RxNorm: 884233 2 Tablet(s) PO QHS No Start Date 07/31/2015 Inactive Medication Administered Medication Codes Instruc tions Start Date Status testosterone cypionate 200 mg/mL intramuscular oil RxNorm: 9139927 1.25Milliliter 12/29/2018 No longer Active testosterone cypionate 200 mg/mL intramuscular oil RxNorm: 8353473 Milliliter 12/16/2018 No longer Active testosterone cypionate 200 mg/mL intramuscular oil RxNorm: 5225239 1Milliliter 11/15/2018 No longer Active testosterone cypionate 200 mg/mL intramuscular oil RxNorm: 107007 Milliliter 09/28/2018 No longer Active testosterone cypionate 200 mg/mL intramuscular oil RxNorm: 818991 Milliliter 09/16/2018 No longer Active testosterone cypionate 200 mg/mL intramuscular oil RxNorm: 901815 1Milliliter 09/02/2018 No longer Active testosterone cypionate 200 mg/mL intramuscular oil RxNorm: 268546 Milliliter 08/19/2018 No longer Active testosterone cypionate 200 mg/mL intramuscular oil RxNorm: 716658 Milliliter 07/15/2018 No longer Active testosterone cypionate 200 mg/mL intramuscular oil RxNorm: 906227 Milliliter 06/17/2018 No longer Active testosterone cypionate 200 mg/mL intramuscular oil RxNorm: 128960 Milliliter 05/21/2018 No longer Active ceftriaxone 500 mg solution for injection RxNorm: 6058098 08/03/2015 No longer A ctive Immunizations Vaccine [...] Code Result Date Comp. Metabolic Panel (14) 55053 GLUCOSE 117 mg/dL 12/17/2018 Comp. Metabolic Panel (14) 06171 BUN 17 mg/dL 12/17/2018 Comp. Metabolic Panel (14) 65531 CREATININE 0.99 mg/dL 12/17/2018 Comp. Metabolic Panel (14) 09657 SODIUM 137 mmol/L 12/17/2018 Comp. Metabolic Panel (14) 03350 POTASSIUM 4.6 mmol/L 12/17/2018 Comp. Metabolic Panel (14) 88580 CHLORIDE 102 mmol/L 12/17/2018 Comp. Metabolic Panel (14) 34381 CARBON DIOXIDE 21 mmol/L 12/17/2018 Comp. Metabolic Panel (14) 19941 CALCIUM 9.4 mg/dL 12/17/2018 Comp. Metabolic Panel (14) 42305 TOTAL PROTEIN 7.5 g/dL 12/17/2018 Comp. Metabolic Panel (14) 44713 ALBUMIN 5.1 g/dL 12/17/2018 Comp. Metabolic Panel (14) 53717 ALKALINE PHOSPHATASE 79 U/L 12/17/2018 Comp. Metabolic Panel (14) 75356 TOTAL BILIRUBIN 0.5 mg/dL 12/17/2018 Comp. Metabolic Panel (14) 09463 SGOT (AST) 34 U/L 12/17/2018 Comp. Metabolic Panel (14) 90516 SGPT (ALT) 40 U/L 12/17/2018 Comp. Metabolic Panel (14) 20292 eGFR (mL/min/1.73m2) 115 12/17/2018 Comp. Metabolic Panel (14) 41561 INTERPRETATION 12/17/2018 Testosterone Serum 704242 TESTOSTERONE 96.8 ng/dL 12/17/2018 Cbc With Differential/Platelet 90364 WBC 5.61 thou/uL 9 Cbc With Differential/Platelet 76120 RBC 5.53 mil/uL 12/17/2018 Cbc With Differential/Platelet 93330 HEMOGLOBIN 15.4 g/dL 12/17/2018 Cbc With Differential/Platelet 70432 HEMATOCRIT 48.1 % 12/17/2018 Cbc With Differential/Platelet 92912 MCV 87.0 fL 12/17/2018 Cbc With Differential/Platelet 16145 MCH 27.8 pg 12/17/2018 Cbc With Differential/Platelet 73893 MCHC 32.0 g/dL 12/17/2018 Cbc With Differential/Platelet 86756 RDW-CV 13.9 % 12/17/2018 Cbc With Differential/Platelet 92195 PLATELET COUNT 294 thou/uL 12/17/2018 Cbc With Differential/Platelet 11185 NEUTROPHIL % 71.2 % 12/17/2018 Cbc With Differential/Platelet 87111 LYMPHOCYTE % 22.2 % 12/17/2018 Cbc With Differential/Platelet 99794 MONOCYTE % 5.4 % 12/17/2018 Cbc With Differential/Platelet 99824 EOS % 0.9 % 12/17/2018 Cbc With Differential/Platelet 05832 BASO % 0.4 % 12/17/2018 Cbc With Differential/Platelet 55540 NEUTROPHIL ABS # 3.99 thou/uL 12/17/2018 Cbc With Differential/Platelet 38292 LYMPH ABS # 1.25 thou/uL 12/17/2018 Cbc With Differential/Platelet 06625 MONOCYTE ABS # 0.30 thou/uL 12/17/2018 Cbc With Differential/Platelet 84098 EOS ABS # 0.05 thou/uL 9 Cbc With Differential/Platelet 88156 BASO ABS # 0.02 thou/uL 12/17/2018 Lipid Panel 30537 CHOLES TEROL 227 mg/dL 12/17/2018 Lipid Panel 57434 TRIGLY CERIDES 229 mg/dL 12/17/2018 Lipid Panel 81523 HDL 41 mg/dL 12/17/2018 Lipid Panel 39891 CHOLES TEROL/HDL 5.54 12/17/2018 Lipid Panel 30439 LDL (C ALCULATED) 140 mg/dL 12/17/2018 Lipid Panel 99135 LDL/HDL 3.41 12/17/2018 Lipid Panel 79664 INTERP RETATION 12/17/2018 Tsh 269854 TSH 1.190 uIU/mL 12/17/2018 Testosterone Serum 223627 TESTOSTERONE 44.1 ng/dL 08/18/2018 Hemoglobin 702615 WBC 7.62 thou/uL 08/17/2018 Hemoglobin 689543 RBC 5.23 mil/uL 08/17/2018 Hemoglobin 852953 HEMOGL OBIN 15.0 g/dL 08/17/2018 Hemoglobin 295241 HEMATO CRIT 45.0 % 08/17/2018 Hemoglobin 375229 MCV 86.0 fL 08/17/2018 Hemoglobin 722019 MCH 28.7 pg 08/17/2018 Hemoglobin 884094 MCHC 33.3 g/dL 08/17/2018 Hemoglobin 285813 RDW-CV 12.9 % 08/17/2018 Hemoglobin 986328 PLATEL ET COUNT 313 thou/uL 08/17/2018 Hematocrit 798759 WBC 7.62 thou/uL 08/17/2018 Hematocrit 793435 RBC 5.23 mil/uL 08/17/2018 Hematocrit 543351 HEMOGL OBIN 15.0 g/dL 08/17/2018 Hematocrit 310090 HEMATO CRIT 45.0 % 08/17/2018 Hematocrit 918791 MCV 86.0 fL 08/17/2018 Hematocrit 615618 MCH 28.7 pg 08/17/2018 Hematocrit 805644 MCHC 33.3 g/dL 08/17/2018 Hematocrit 567247 RDW-CV 12.9 % 08/17/2018 Hematocrit 044808 PLATEL ET COUNT 313 thou/uL 08/17/2018 Culture Mrsa 364517 MRSA CULTURE SEE NOTES 06/21/2018 Comp. Metabolic Panel (14) 09174 GLUCOSE 101 mg/dL 06/18/2018 Comp. Metabolic Panel (14) 90473 BUN 18 mg/dL 06/18/2018 Comp. Metabolic Panel (14) 54563 CREATININE 0.99 mg/dL 06/18/2018 Comp. Metabolic Panel (14) 03919 SODIUM 141 mmol/L 06/18/2018 Comp. Metabolic Panel (14) 50923 POTASSIUM 4.3 mmol/L 06/18/2018 Comp. Metabolic Panel (14) 24842 CHLORIDE 103 mmol/L 06/18/2018 Comp. Metabolic Panel (14) 21511 CARBON DIOXIDE 23 mmol/L 06/18/2018 Comp. Metabolic Panel (14) 85304 CALCIUM 9.8 mg/dL 06/18/2018 Comp. Metabolic Panel (14) 84579 TOTAL PROTEIN 7.1 g/dL 06/18/2018 Comp. Metabolic Panel (14) 31519 ALBUMIN 5.2 g/dL 06/18/2018 Comp. Metabolic Panel (14) 58421 ALKALINE PHOSPHATASE 65 U/L 06/18/2018 Comp. Metabolic Panel (14) 00541 TOTAL BILIRUBIN 0.6 mg/dL 06/18/2018 Comp. Metabolic Panel (14) 87207 SGOT (AST) 21 U/L 06/18/2018 Comp. Metabolic Panel (14) 17479 SGPT (ALT) 24 U/L 06/18/2018 Comp. Metabolic Panel (14) 27188 eGFR (mL/min/1.73m2) 115 06/18/2018 Comp. Metabolic Panel (14) 11219 INTERPRETATION 06/18/2018 Cbc With Differential/Platelet 29959 WBC 4.55 thou/uL 8 Cbc With Differential/Platelet 25329 RBC 5.13 mil/uL 06/18/2018 Cbc With Differential/Platelet 46939 HEMOGLOBIN 14.4 g/dL 06/18/2018 Cbc With Differential/Platelet 31351 HEMATOCRIT 44.1 % 06/18/2018 Cbc With Differential/Platelet 09406 MCV 85.9 fL 06/18/2018 Cbc With Differential/Platelet 81328 MCH 28.1 pg 06/18/2018 Cbc With Differential/Platelet 24418 MCHC 32.7 g/dL 06/18/2018 Cbc With Differential/Platelet 28219 RDW-CV 13.4 % 06/18/2018 Cbc With Differential/Platelet 95362 PLATELET COUNT 287 thou/uL 06/18/2018 Cbc With Differential/Platelet 88667 NEUTROPHIL % 53.9 % 06/18/2018 Cbc With Differential/Platelet 92603 LYMPHOCYTE % 36.1 % 06/18/2018 Cbc With Differential/Platelet 20702 MONOCYTE % 7.4 % 06/18/2018 Cbc With Differential/Platelet 57685 EOS % 1.9 % 06/18/2018 Cbc With Differential/Platelet 34981 BASO % 0.8 % 06/18/2018 Cbc With Differential/Platelet 53592 NEUTROPHIL ABS # 2.45 thou/uL 06/18/2018 Cbc With Differential/Platelet 75004 LYMPH ABS # 1.64 thou/uL 06/18/2018 Cbc With Differential/Platelet 71743 MONOCYTE ABS # 0.34 thou/uL 06/18/2018 Cbc With Differential/Platelet 94633 EOS ABS # 0.09 thou/uL 8 Cbc With Differential/Platelet 77276 BASO ABS # 0.04 thou/uL 06/18/2018 Review [...] Procedure Codes Date THER/PROPH/DIAG INJ SC/IM CPT-4: 32475 12/29/2018 THER/PROPH/DIAG INJ SC/IM CPT-4: 85814 12/16/2018 THER/PROPH/DIAG INJ SC/IM CPT-4: 11830 11/15/2018 THER/PROPH/DIAG INJ SC/IM CPT-4: 48324 09/28/2018 THER/PROPH/DIAG INJ SC/IM CPT-4: 37021 09/16/2018 THER/PROPH/DIAG INJ SC/IM CPT-4: 79436 09/02/2018 THER/PROPH/DIAG INJ SC/IM CPT-4: 47763 08/19/2018 IMMUNIZATION ADMIN CPT- 4: 29359 08/02/2018 FLU VAC NO PRSV 4 VA L 3 YRS+ CPT-4: 90897 08/02/2018 THER/PROPH/DIAG INJ SC/IM CPT-4: 05009 07/15/2018 THER/PROPH/DIAG INJ SC/IM CPT-4: 93502 06/17/2018 THER/PROPH/DIAG INJ SC/IM CPT-4: 06044 05/21/2018 THER/PROPH/DIAG INJ SC/IM CPT-4: 00604 08/03/2015 ROCEPHIN, PER 250 MG CPT-4: J0696 08/03/2015 Vital Signs Date Vital 12/29/2018 Blood Pressure 1: 144/90 Code: 8480-6 BMI: 34.8 Code: 32485-5 Heart Rate 1: 91 bpm Height: 5'7" SpO2: 98% Weight: 222 lbs 12/20/2018 Blood Pressure 1: 124/76 Code: 8480-6 BMI: 35.4 Code: 08145-8 Heart Rate 1: 79 bpm Height: 5'7" SpO2: 99% Weight: 226 lbs 12/16/2018 Blood Pressure 1: 160/90 Code: 8480-6 BMI: 35.4 Code: 55351-3 Heart Rate 1: 90 bpm Height: 5'7" SpO2: 95% Weight: 226 lbs 11/01/2018 Blood Pressure 1: 146/82 Code: 8480-6 BMI: 36.0 Code: 79442-9 Heart Rate 1: 87 bpm Height: 5'7" SpO2: 98% Weight: 230 lbs 09/24/2018 Blood Pressure 1: 140/82 Code: 8480-6 BMI: 36.0 Code: 82964-6 Heart Rate 1: 86 bpm Height: 5'7" SpO2: 98% Temperature: 37.1 (C ) / 98.7 (F) Weight: 230 lbs 08/16/2018 Blood Pressure 1: 148/82 Code: 8480-6 Blood Pressure 2: 157/92 Code: 8480-6 BMI: 35.9 Code: 50811-3 Heart Rate 1: 72 bpm Height: 5'7" SpO2: 96% Weight: 229 lbs 08/02/2018 Blood Pressure 1: 142/86 Code: 8480-6 BMI: 35.2 Code: 94649-0 Heart Rate 1: 101 bpm Height: 5'7" SpO2: 97% Weight: 225 lbs 05/31/2018 Blood Pressure 1: 134/82 Code: 8480-6 BMI: 35.4 Code: 01762-5 Heart Rate 1: 91 bpm Height: 5'7" SpO2: 96% Weight: 226 lbs 05/20/2018 Blood Pressure 1: 160/100 Code: 8480-6 BMI: 35.2 Code: 26664-7 Heart Rate 1: 89 bpm Height: 5'7" SpO2: 98% Weight: 225 lbs 05/10/2018 Blood Pressure 1: 124/70 Code: 8480-6 BMI: 35.1 Code: 91928-7 Heart Rate 1: 93 bpm Height: 5'7" SpO2: 99% Weight: 224 lbs 01/15/2018 Blood Pressure 1: 142/92 Code: 8480-6 BMI: 36.3 Code: 32612-4 Heart Rate 1: 77 bpm Height: 5'7" SpO2: 98% Weight: 232 lbs 12/15/2017 Blood Pressure 1: 156/98 Code: 8480-6 BMI: 36.2 Code: 28503-3 Heart Rate 1: 87 bpm Height: 5'7" [...] eye 01/15/2018 None vision change Quality ac standing rock 01/15/2018 None vision change Quality lo ss [...] vision 12/15/2017 None vision change Quality ac standing rock 12/15/2017 None vision change Onset and Resolution sudden in onset 12/15/2017 None vision change Onset of Symptom 3.5 weeks ago 12/15/2017 None vision change Limitation on Activities severely limits vision 12/15/2017 None vision change Triggers n o known associated factors 12/15/2017 None Advance Directives No Advance Directive data Encounters Encounter Performer Loca tion Codes Date ([id number]) [id number] EST. 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 PATIENT, LEVEL III Diagnosis: Pain in right arm[ICD10: M79.601] Sonia Gonzalez MD, [facility] CPT-4: 10668 12/20/2018 ([id number]) [id number] EST. 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 P ATIENT, LEVEL IV Diagnosis: Essential (primary) hypertension[ICD10: I10] Diagnosis: Cervicalgia[ICD10: M54.2] Diagnosis: Spinal stenosis, thoracic region[ICD10: M48.04] Diagnosis: Testicular hypofunction[ICD10: E29.1] Radha Gonzalez MD, [facility] CPT-4: 11386 11/01/2018 [id number] EST. PATIENT, LEVEL III Diagnosis: Acute upper respiratory infection, unspecified[ICD10: J06.9] Diagnosis: Other allergic rhinitis[ICD10: J30.89] Sonia Gonzalez MD, [facility] CPT-4: 98109 09/24/2018 ([id number]) 01268 EST. 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 P ATIENT, LEVEL IV Diagnosis: Essential (primary) hypertension[ICD10: I10] Diagnosis: Testicular hypofunction[ICD10: E29.1] Diagnosis: Spinal stenosis, thoracic region[ICD10: M48.04] Diagnosis: Rash and other nonspecific skin eruption[ICD10: R21] Diagnosis: VACCIN FOR INFLUENZA[ICD10: Z23] Radha Gonzalez MD, [facility] CPT-4: 96042 08/02/2018 ([id number]) 18074 EST. P ATIENT, LEVEL IV Diagnosis: Essential (primary) hypertension[ICD10: I10] Diagnosis: Cervicalgia[ICD10: M54.2] Radha Gonzalez MD, [facility] CPT-4: 35572 05/31/2018 ([id number]) 06192 EST. 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] Diagnosis: Obstructive sleep apnea (adult) (pediatric)[ICD10: G47.33] Radha Gonzalez MD, [facility] CPT-4: 00300 01/15/2018 ([id number]) PREV VISIT N EW AGE 40-64 Diagnosis: Encounter for general adult medical examination with abnormal findings[ICD10: Z00.01] Radha Gonzalez MD, [facility] CPT-4: 25323 12/15/2017 ([id number]) OFFICE/OUTPA TIENT VISIT NEW Diagnosis: Laceration of thumb[ICD9: 883.0] [facility] CPT-4: 96287 08/03/2015 Plan of Care Planned Activity Notes [...] Gonzalez WPtel: [facility] (15 min) Moderate 12/29/2018 Patient Education: Patient Medication Summary Completed 12/29/2018 Patient Education: .Cervicalgia Neck Pain Completed 12/29/2018 Patient Education: Patient Medication Summary Completed 12/21/2018 Care Plan: %Hba1C add to blood from 12/17 LOINC : 97379-3 Pending 12/21/2018 Visit Plan: Right arm pain - dayna deformity noted - will refer to ortho - The pt is to use prn antiinflammatories to manage acute pain. The patient is to call the office if the pain is worsening or does not improve. 12/20/2018 Appointment: Sonia Potter WPtel: [facility] [facility] (15 min) Moderate 12/20/2018 Patient [...] Gonzalez WPtel: [facility] (15 min) Moderate 12/16/2018 Patient Education: [...] needed. 11/01/2018 App[facility]ment: [phone] [facility] ([facility] min) Moderate 11/01/2018 Patient [...] allergy spray. 09/24/2018 App[facility]ment: [phone] (15 min) Moderate 09/24/2018 Patient Education: Patient [...] at home. Multiple symptoms - referral to [facility] - appt in September 30, 2018. 08/16/2018 Appointment: Lisa Radha WPtel: [facility] (15 min) Moderate 08/16/2018 Patient Education: [...] at home. Multiple symptoms - referral to [facility] - rashes, hypogonadism, optic neuritis - all points to possible autoimmune syndrome. Spinal stenosis - of thoracic region - pt to talk to Dr. Dunaway about referral to a different specialist for his mid- back. Hypogonadism - continue with testosterone. Flu shot given today in clinic. 08/02/2018 Appointment: [facility] [phone] [facility] (15 min) Moderate 08/02/2018 Patient Education: Patient Medication Summary Completed 08/02/2018 Care Plan: Referral Order SNOMED-CT : 981816192 Pending 08/02/2018 Appointment: Injection 07/15/2018 Patient Education: [...] spine stenosis - referral to [facility] physical therapy. I have also recommended a Referral to Dr. Dunaway. I have called and talked to Dr. Dunaway - he looked at the pt's imaging and agrees that getting the pt in to be seen soon would be a preferred option. 05/31/2018 Appointment: Radha Gonzalez WPtel: [facility] (15 min) Moderate 05/31/2018 Patient Education: Patient Medication Summary Completed 05/31/2018 Care Plan: Referral Order SNOMED-CT : [id number] Pending 05/31/2018 Care Plan: Referral Order SNOMED-CT : [id number] Pending 05/31/2018 Appointment: Injection 05/21/2018 Patient Education: Patient Medication Summary Completed 05/21/2018 Care Plan: Referral Order SNOMED-CT : [id number] Pending 05/21/2018 Visit Plan: Cervical and thoracic s tenosis with spinal cord compression -refer for appt with Dr Marr -rx for hydrocodone for pain-start gabapentin at bedtime Soft tissue lesion-left chest-schedule CTfor further evaluation HTN-elevated today-hold adderall-monitor blood pressure 05/20/2018 Appointment: Hannah Simons WPtel: [phone] [place] (15 min) Moderate 05/20/2018 [...] Sonia Potter WPtel: [facility] [place] (15 min) Moderate 05/10/2018 Patient Education: Patient Medication Summary Completed 05/10/2018 Visit Plan: Sleep apnea - rx for cp ap - actually autopap was recommended and pt given rx today. HTN - referral to dr. kapoor - pt needs stress testing. 01/15/2018 Appointment: Radha Gonzalez WPtel: [facility] (15 min) Moderate 01/15/2018 Patient Education: Patient Medication Summary Completed 01/15/2018 Care Plan: Referral Order SNOMED-CT : [id number] Pending 01/15/2018 Visit Plan: Well Adult - [...] Gonzalez WPtel: [facility] New Patient 12/15/2017 Patient Education: Patient Medication Summary Completed 12/15/2017 Care Plan: CHEST X-RAY 2VW FRONTAL&LATL LOINC : 17824-6 Pending 12/15/2017 Appointment: Radha Gonzalez WPtel: [facility] (15 min) Moderate 12/08/2017 Appointment: (S) New [...] Ordering Provider 08/03 Referral info faxed to [facility]. Patient informed to be expecting a call from them with appt info Appointment Requested Referral: External, Ordering Provider Referral Appointment Requested Referral: External, Ordering Provider I called today; they will call him to schedule. Completed Referral: Armani Dunaway Referral Appointment Requested Referral: Mayte Kapoor Referral Appointment Requested Referral[facility] [phone] [facility] Referral Appointment Requested Referral: External, Ordering Provider [...] at home. Multiple symptoms - referral to [facility] - rashes, hypogonadism, optic neuritis - [...] at home. Multiple symptoms - referral to [facility] - appt in September 30, 2018. [...] home. Cervical spine stenosis [facility]. I have also recommended a Referral to Dr. Dunaway. I have called and talked to Dr. Dunaway - he looked at the pt's imaging and agrees that getting the pt in to be seen soon would be a preferred option.
--- OUTSIDE RECORDS SUMMARY | 2020-04-28 00:45 | XMS REPORT | CCD ---
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 Name Role Phone PP Unavailable CCM Unavailable Summary Purpose Interface Exchange Insurance Providers Payer name Policy type / Coverage type Covered alliance party ID Effective Begin Date Effective End Date [employer] [id number] 2018 Unknown Family history Brother Diagnosis Age At Onset Alcoholism Unknown Father Diagnosis Age At Onset Hypercholesterolemia Unknown Social History Social History Element Codes Description Effective Dates Marital status Unknown S chanda 12/15/2017 Number of children Unknown 1 12/15/2017 Employment Unknown 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 employed [employer] 12/15/[address]: 439504685 Never smoker 12/15/[address]: 674241 Currently drinks alcohol <1 per week 12/15/2017 [...] 5 mg-fanny taminophen 325 mg tablet RxNorm: 531509 1-2 Tablet(s) PO Q6 a s needed 12/29/2018 No Stop Date Active Adderall 30 mg tablet RxNorm: 111723 2 Tablet(s) PO daily 12/29/2018 01/27/2019 Active atenolol 50 mg tablet RxNorm: 590264 1.5 Tablet(s) PO BID 12/29/2018 12/23/2019 Active testosterone cypiona te 200 mg/mL intramuscular oil RxNorm: 2268425 1.25 Milliliter(s) IM 12/29/2018 12/29/2018 Inactive hydrocodone 5 mg-fanny taminophen 325 mg tablet RxNorm: 548434 1-2 Tablet(s) PO Q6 a s needed 12/29/2018 12/28/2018 Inactive hydrocodone 5 mg-fanny taminophen 325 mg tablet RxNorm: 359514 1 Tablet(s) PO TID CA N 12/28/2018 12/28/2018 In active testosterone cypiona te 200 mg/mL intramuscular oil RxNorm: 1336451 1.25 Milliliter(s) IM 2 x month 12/22/2018 04/12/2019 Active gabapentin 300 mg ca psule RxNorm: 978226 1 Capsule(s) PO QID 12/16/2018 12/10/2019 Active Voltaren 1 % topical gel RxNorm: 102636 2 Gram(s) APPLY TOPIC ALLY four TIMES A DAY 12/16/2018 01/20/2019 Ac tive testosterone cypiona te 200 mg/mL intramuscular oil RxNorm: 5699948 Milliliter(s) IM 12/16/2018 12/16/2018 In active trazodone 100 mg tablet RxNorm: 921133 TAKE ONE TABLET BY MOUTH EVERY NIGHT AT BEDTIME 12/07/2018 06/04/2019 Active hydrocodone 5 mg-fanny taminophen 325 mg tablet RxNorm: 530521 1 Tablet(s) PO TID CA N 11/29/2018 12/27/2018 In active Adderall 30 mg tablet RxNorm: 118575 2 Tablet(s) PO daily 11/29/2018 12/28/2018 Inactive clindamycin 1 %-arthur oyl peroxide 5 % topical gel RxNorm: 307458 TOP APPLY TO AFFECTED AREA(S) ON SERNA TWO TIMES A DAY 11/17/2018 No Stop Date Active testosterone cypiona te 200 mg/mL intramuscular oil RxNorm: 6574038 1 Milliliter(s) IM 2 x month 11/17/2018 12/21/2018 Inactive Zorvolex 35 mg capsule RxNorm: 0947618 1 Capsule(s) PO TID as needed for pain 11/15/2018 05/13/2019 Ac tive ketoconazole 2 % top ical cream RxNorm: 129611 APPLY ONE GRAM TOPICA LLY TWICE A DAY 11/15/2018 11/29/2018 In active testosterone cypiona te 200 mg/mL intramuscular oil RxNorm: 4477921 1 Milliliter(s) IM 11/15/2018 11/14/2018 Inactive hydrocodone 5 mg-fanny taminophen 325 mg tablet RxNorm: 490032 1 Tablet(s) PO TID CA N 11/02/2018 11/28/2018 In active Singulair 10 mg tablet RxNorm: 910735 1 Tablet(s) PO daily 11/01/2018 07/28/2019 Active testosterone cypiona te 200 mg/mL intramuscular oil RxNorm: 6909225 1 Milliliter(s) IM 2 x month 11/01/2018 11/16/2018 Inactive Adderall 30 mg tablet RxNorm: 642727 2 Tablet(s) PO daily 10/29/2018 11/27/2018 Inactive gabapentin 300 mg ca psule RxNorm: 340888 1 Capsule(s) PO BID m ay take TID 10/19/2018 12/15/2018 In active gabapentin 300 mg ca psule RxNorm: 120433 1 Capsule(s) PO BID m ay take TID 10/19/2018 10/18/2018 In active alprazolam 1 mg tablet RxNorm: 412408 1 Tablet(s) PO TID as needed 10/15/2018 12/13/2018 Inactive testosterone cypiona te 200 mg/mL intramuscular oil RxNorm: 868121 Milliliter(s) IM 09/28/2018 09/28/2018 In active pravastatin 40 mg ta blet RxNorm: 315297 TAKE ONE TABLET BY MO UT EVERY NIGHT AT BEDTIME 09/27/2018 09/21/2019 Active Tamiflu 75 mg capsule RxNorm: 223814 1 Capsule(s) PO BID 09/24/2018 09/28/2018 Inactive Adderall 30 mg tablet RxNorm: 537996 2 Tablet(s) PO daily 09/20/2018 10/19/2018 Inactive hydrocodone 5 mg-fanny taminophen 325 mg tablet RxNorm: 321667 1 Tablet(s) PO TID CA N 09/20/2018 11/01/2018 In active testosterone cypiona te 200 mg/mL intramuscular oil RxNorm: 032667 Milliliter(s) IM 09/16/2018 09/16/2018 In active testosterone cypiona te 200 mg/mL intramuscular oil RxNorm: 869619 1 Milliliter(s) IM 09/02/2018 09/02/2018 Inactive testosterone cypiona te 200 mg/mL intramuscular oil RxNorm: 057190 Milliliter(s) IM 08/19/2018 08/19/2018 In active tramadol 50 mg tablet RxNorm: 037125 1-2 Tablet(s) PO Q6 as needed 08/18/2018 No Stop Date Active Adderall 30 mg tablet RxNorm: 856704 2 Tablet(s) PO daily 08/18/2018 09/16/2018 Inactive Dexilant 60 mg capsu le, delayed release RxNorm: 385599 1 Capsule(s) PO BID 08/17/2018 08/11/2019 Ac tive ketoconazole 2 % top ical cream RxNorm: 462030 1 Gram(s) TOP BID 08/17/2018 08/26/2018 Inactive Zorvolex 35 mg capsule RxNorm: 5120679 1 Capsule(s) PO TID as needed for pain 08/17/2018 08/16/2018 In active atenolol 50 mg tablet RxNorm: 236495 1 Tablet(s) PO BID 08/17/2018 12/28/2018 Inactive Zorvolex 35 mg capsule RxNorm: 3070454 1 Capsule(s) PO TID as needed for pain 08/17/2018 11/14/2018 In active ketoconazole 2 % top ical cream RxNorm: 401635 1 Gram(s) TOP BID 08/02/2018 08/11/2018 Inactive hydrocortisone 2.5 % topical cream RxNorm: 264538 1 Application TOP BID 07/21/2018 No Stop Date Active Adderall 30 mg tablet RxNorm: 762627 2 Tablet(s) PO daily 07/20/2018 08/17/2018 Inactive testosterone cypiona te 200 mg/mL intramuscular oil RxNorm: 951340 Milliliter(s) IM 07/15/2018 07/15/2018 In active alprazolam 1 mg tablet RxNorm: 569991 1 Tablet(s) PO TID as needed 07/12/2018 09/07/2018 Inactive hydrocodone 5 mg-fanny taminophen 325 mg tablet RxNorm: 350873 1 Tablet(s) PO TID CA N 06/30/2018 09/19/2018 In active pravastatin 40 mg ta blet RxNorm: 111830 1 Tablet(s) PO QHS 06/18/2018 09/15/2018 Inactive Adderall 30 mg tablet RxNorm: 296178 2 Tablet(s) PO daily 06/18/2018 07/17/2018 Inactive testosterone cypiona te 200 mg/mL intramuscular oil RxNorm: 890433 Milliliter(s) IM 06/17/2018 06/17/2018 In active Voltaren 1 % topical gel RxNorm: 898454 APPLY TOPICALLY TWO T IMES A DAY 06/16/2018 07/21/2018 In active Vitamin D2 50,000 un it capsule RxNorm: 7382670 1 Capsule(s) PO QW 05/21/2018 No Stop Date Active Adderall 30 mg tablet RxNorm: 667007 2 Tablet(s) PO daily 05/21/2018 06/17/2018 Inactive testosterone cypiona te 200 mg/mL intramuscular oil RxNorm: 338074 Milliliter(s) IM 05/21/2018 05/21/2018 In active testosterone cypiona te 200 mg/mL intramuscular oil RxNorm: 4839059 1 Milliliter(s) IM monthly 05/20/2018 09/16/2018 Inactive testosterone cypiona te 200 mg/mL intramuscular oil RxNorm: 436130 1 Milliliter(s) IM monthly 05/20/2018 05/19/2018 Inactive hydrocodone 5 mg-fanny taminophen 325 mg tablet RxNorm: 319031 1 Tablet(s) PO TID CA N 05/20/2018 06/29/2018 In active Vitamin D2 50,000 un it capsule RxNorm: 0803834 1 Capsule(s) PO QW 05/18/2018 05/20/2018 Inactive triamcinolone aceton destin 0.025 % topical cream RxNorm: 2054040 1 Application TOP BI D 05/13/2018 No Stop Date Active Dexilant 60 mg capsu le, delayed release RxNorm: 934146 1 Capsule(s) PO BID 05/13/2018 08/16/2018 In active Zorvolex 35 mg capsule RxNorm: 0547069 1 Capsule(s) PO TID as needed for pain 05/12/2018 08/09/2018 In active Voltaren 1 % topical gel RxNorm: 729948 1 Application TOP BID 05/12/2018 06/15/2018 Inactive acyclovir 400 mg tablet RxNorm: 713625 1 Tablet(s) PO TID as needed take at ons et of symptoms of cold sores x 5 days 05/10/2018 No Stop Date Active paroxetine 20 mg tablet RxNorm: 5575632 2 Tablet(s) PO QHS 05/10/2018 10/31/2019 Active ProAir HFA 90 mcg/ac tuation aerosol inhaler RxNorm: 605253 1 Puff(s) INH QID as needed 05/10/2018 No Stop Date Active baclofen 20 mg tablet RxNorm: 455452 1 Tablet(s) PO TID as needed muscle spas ms 05/10/2018 06/08/2018 In active Singulair 10 mg tablet RxNorm: 769280 1 Tablet(s) PO daily 05/10/2018 08/07/2018 Inactive atenolol 50 mg tablet RxNorm: 245780 1 Tablet(s) PO BID 05/10/2018 08/07/2018 Inactive triamcinolone aceton destin 0.025 % topical cream RxNorm: 9975509 1 Application TOP BI D 05/10/2018 05/12/2018 In active tramadol 50 mg tablet RxNorm: 075889 1 Tablet(s) PO TID as needed 05/10/2018 05/19/2018 Inactive Dexilant 60 mg capsu le, delayed release RxNorm: 296090 1 Capsule(s) PO daily 05/10/2018 05/12/2018 In active alprazolam 1 mg tablet RxNorm: 713519 1 Tablet(s) PO TID as needed 05/10/2018 08/06/2018 Inactive trazodone 100 mg tablet RxNorm: 494982 1 Tablet(s) PO QHS 05/10/2018 11/05/2018 Inactive cyclobenzaprine 10 m g tablet RxNorm: 411156 1 Tablet(s) PO TID as needed muscle spasms 05/07/2018 07/12/2018 Inactive trazodone 100 mg tablet RxNorm: 114023 1 Tablet(s) PO QHS 05/07/2018 05/09/2018 Inactive Adderall 30 mg tablet RxNorm: 760630 2 Tablet(s) PO daily 04/19/2018 05/18/2018 Inactive alprazolam 1 mg tablet RxNorm: 707417 1 Tablet(s) PO BID 04/19/2018 05/09/2018 Inactive Adderall 30 mg tablet RxNorm: 484219 2 Tablet(s) PO daily 03/26/2018 04/18/2018 Inactive paroxetine 20 mg tablet RxNorm: 0267691 2 Tablet(s) PO QHS 03/15/2018 05/09/2018 Inactive Adderall 30 mg tablet RxNorm: 075140 2 Tablet(s) PO daily 02/25/2018 03/25/2018 Inactive cyclobenzaprine 10 m g tablet RxNorm: 578402 1 Tablet(s) PO TID as needed muscle spasms 02/22/2018 05/06/2018 Inactive tramadol 50 mg tablet RxNorm: 635965 1 Tablet(s) PO TID as needed 02/22/2018 03/07/2018 Inactive tramadol 50 mg tablet RxNorm: 516194 1 Tablet(s) PO TID as needed 02/22/2018 02/21/2018 Inactive trazodone 100 mg tablet RxNorm: 778112 1 Tablet(s) PO QHS 02/03/2018 05/03/2018 Inactive trazodone 100 mg tablet RxNorm: 144870 1 Tablet(s) PO QHS 02/03/2018 02/02/2018 Inactive Adderall 30 mg tablet RxNorm: 271340 2 Tablet(s) PO daily 01/27/2018 02/18/2018 Inactive acyclovir 400 mg tablet RxNorm: 345962 1 Tablet(s) PO TID as needed take at ons et of symptoms of cold sores x 5 days 01/15/2018 05/09/2018 Inactive Bactrim DS 800 mg-16 0 mg tablet RxNorm: 366500 1 Tablet(s) PO BID 01/11/2018 01/17/2018 Inactive Bactrim DS 800 mg-16 0 mg tablet RxNorm: 251116 1 Tablet(s) PO BID 01/11/2018 01/10/2018 Inactive Dexilant 60 mg capsu le, delayed release RxNorm: 194260 1 Capsule(s) PO daily 12/23/2017 05/09/2018 In active Dexilant 60 mg capsu le, delayed release RxNorm: 473451 1 Capsule(s) PO daily 12/23/2017 12/22/2017 In active atenolol 50 mg tablet RxNorm: 575838 1 Tablet(s) PO BID 12/15/2017 05/09/2018 Inactive alprazolam 1 mg tablet RxNorm: 033166 1-1.5 Tablet(s) PO daily 12/15/2017 04/18/2018 Inactive ceftriaxone 500 mg s olution for injection RxNorm: 2970802 Inj 08/03/2015 08/03/2015 Inactive paroxetine 20 mg tablet RxNorm: 6666716 2 Tablet(s) PO QHS 08/01/2015 10/29/2015 Inactive pravastatin 40 mg ta blet RxNorm: 216383 1/2 Tablet(s) PO QHS 08/01/2015 12/14/2017 Inactive Trazadone 100mg 100 mg RxNorm: 1 PO daily 08/01/2015 11/27/2015 Inactive Trazadone 100mg 100 mg RxNorm: 1 PO daily 08/01/2015 05/04/2018 Inactive atenolol 50 mg tablet RxNorm: 753222 1 Tablet(s) PO daily 08/01/2015 10/29/2015 Inactive ibuprofen 800 mg tablet RxNorm: 868985 1 Tablet(s) PO BID -TID No Start Date Active Fish Oil 360 mg-1,20 0 mg capsule RxNorm: 550273 1 Capsule(s) PO BID No Start Date Active Zyrtec 10 mg tablet RxNorm: 2931194 1 Tablet(s) PO daily No Start Date Active pravastatin 40 mg ta blet RxNorm: 933379 1/2 Tablet(s) PO QHS No Start Date 07/31/2015 Inactive Benadryl Allergy 25 mg tablet RxNorm: 7482432 1 Tablet(s) PO daily No Start Date 07/19/2018 Inactive Adderall 30 mg tablet RxNorm: 108206 2 Tablet(s) PO daily No Start Date 01/26/2018 Inactive Aspirin Low Dose 81 mg tablet,delayed release RxNorm: 260092 1 Tablet(s) PO BID No Start Date 07/19/2018 Inactive Singulair 10 mg tablet RxNorm: 294192 1 Tablet(s) PO daily No Start Date 05/09/2018 Inactive cyclobenzaprine 10 m g tablet RxNorm: 162775 1 Tablet(s) PO TID as needed muscle spasms No Start Date 02/21/2018 Inactive Trazadone 100mg 100 mg RxNorm: 1 PO daily No Start Date 07/31/2015 Inactive clindamycin 1 %-arthur oyl peroxide 5 % topical gel RxNorm: 129240 TOP APPLY TO AFFECTED AREA(S) ON SERNA TWO TIMES A DAY No Start Date 11/16/2018 Inactive hydrocortisone 2.5 % topical cream RxNorm: 862324 1 Application TOP BID No Start Date 07/20/2018 Inactive alprazolam 1 mg tablet RxNorm: 425127 2 Tablet(s) PO daily No Start Date 12/14/2017 Inactive tramadol 50 mg tablet RxNorm: 440450 1-2 Tablet(s) PO Q6 as needed No Start Date 08/17/2018 Inactive Vitamin D2 50,000 un it capsule RxNorm: 5317781 1 Capsule(s) PO QW No Start Date 05/17/2018 Inactive pantoprazole 40 mg t ablet,delayed release RxNorm: 385156 1 Tablet(s) PO BID No Start Date 12/22/2017 Inactive atenolol 50 mg tablet RxNorm: 309562 1 Tablet(s) PO daily No Start Date 07/31/2015 Inactive paroxetine 20 mg tablet RxNorm: 751375 2 Tablet(s) PO QHS No Start Date 07/31/2015 Inactive Medication Administered Medication Codes Instruc tions Start Date Status testosterone cypionate 200 mg/mL intramuscular oil RxNorm: 3203514 1.25Milliliter 12/29/2018 Active testosterone cypionate 200 mg/mL intramuscular oil RxNorm: 2850353 Milliliter 12/16/2018 No longer Active testosterone cypionate 200 mg/mL intramuscular oil RxNorm: 3338440 1Milliliter 11/15/2018 No longer Active testosterone cypionate 200 mg/mL intramuscular oil RxNorm: 130148 Milliliter 09/28/2018 No longer Active testosterone cypionate 200 mg/mL intramuscular oil RxNorm: 370202 Milliliter 09/16/2018 No longer Active testosterone cypionate 200 mg/mL intramuscular oil RxNorm: 484372 1Milliliter 09/02/2018 No longer Active testosterone cypionate 200 mg/mL intramuscular oil RxNorm: 450040 Milliliter 08/19/2018 No longer Active testosterone cypionate 200 mg/mL intramuscular oil RxNorm: 866821 Milliliter 07/15/2018 No longer Active testosterone cypionate 200 mg/mL intramuscular oil RxNorm: 775734 Milliliter 06/17/2018 No longer Active testosterone cypionate 200 mg/mL intramuscular oil RxNorm: 668833 Milliliter 05/21/2018 No longer Active ceftriaxone 500 mg solution for injection RxNorm: 9409983 08/03/2015 No longer A ctive Immunizations Vaccine [...] Code Result Date Comp. Metabolic Panel (14) 88894 GLUCOSE 117 mg/dL 12/17/2018 Comp. Metabolic Panel (14) 08957 BUN 17 mg/dL 12/17/2018 Comp. Metabolic Panel (14) 21723 CREATININE 0.99 mg/dL 12/17/2018 Comp. Metabolic Panel (14) 75516 SODIUM 137 mmol/L 12/17/2018 Comp. Metabolic Panel (14) 63046 POTASSIUM 4.6 mmol/L 12/17/2018 Comp. Metabolic Panel (14) 26697 CHLORIDE 102 mmol/L 12/17/2018 Comp. Metabolic Panel (14) 56117 CARBON DIOXIDE 21 mmol/L 12/17/2018 Comp. Metabolic Panel (14) 09560 CALCIUM 9.4 mg/dL 12/17/2018 Comp. Metabolic Panel (14) 20639 TOTAL PROTEIN 7.5 g/dL 12/17/2018 Comp. Metabolic Panel (14) 19128 ALBUMIN 5.1 g/dL 12/17/2018 Comp. Metabolic Panel (14) 79616 ALKALINE PHOSPHATASE 79 U/L 12/17/2018 Comp. Metabolic Panel (14) 18837 TOTAL BILIRUBIN 0.5 mg/dL 12/17/2018 Comp. Metabolic Panel (14) 39514 SGOT (AST) 34 U/L 12/17/2018 Comp. Metabolic Panel (14) 06507 SGPT (ALT) 40 U/L 12/17/2018 Comp. Metabolic Panel (14) 71954 eGFR (mL/min/1.73m2) 115 12/17/2018 Comp. Metabolic Panel (14) 04772 INTERPRETATION 12/17/2018 Testosterone Serum 676162 TESTOSTERONE 96.8 ng/dL 12/17/2018 Cbc With Differential/Platelet 89464 WBC 5.61 thou/uL 9 Cbc With Differential/Platelet 02453 RBC 5.53 mil/uL 12/17/2018 Cbc With Differential/Platelet 37650 HEMOGLOBIN 15.4 g/dL 12/17/2018 Cbc With Differential/Platelet 55195 HEMATOCRIT 48.1 % 12/17/2018 Cbc With Differential/Platelet 71470 MCV 87.0 fL 12/17/2018 Cbc With Differential/Platelet 72078 MCH 27.8 pg 12/17/2018 Cbc With Differential/Platelet 12643 MCHC 32.0 g/dL 12/17/2018 Cbc With Differential/Platelet 96144 RDW-CV 13.9 % 12/17/2018 Cbc With Differential/Platelet 77393 PLATELET COUNT 294 thou/uL 12/17/2018 Cbc With Differential/Platelet 86740 NEUTROPHIL % 71.2 % 12/17/2018 Cbc With Differential/Platelet 98250 LYMPHOCYTE % 22.2 % 12/17/2018 Cbc With Differential/Platelet 77551 MONOCYTE % 5.4 % 12/17/2018 Cbc With Differential/Platelet 99408 EOS % 0.9 % 12/17/2018 Cbc With Differential/Platelet 87108 BASO % 0.4 % 12/17/2018 Cbc With Differential/Platelet 22481 NEUTROPHIL ABS # 3.99 thou/uL 12/17/2018 Cbc With Differential/Platelet 92806 LYMPH ABS # 1.25 thou/uL 12/17/2018 Cbc With Differential/Platelet 75008 MONOCYTE ABS # 0.30 thou/uL 12/17/2018 Cbc With Differential/Platelet 92716 EOS ABS # 0.05 thou/uL 9 Cbc With Differential/Platelet 95516 BASO ABS # 0.02 thou/uL 12/17/2018 Lipid Panel 10527 CHOLES TEROL 227 mg/dL 12/17/2018 Lipid Panel 81364 TRIGLY CERIDES 229 mg/dL 12/17/2018 Lipid Panel 31109 HDL 41 mg/dL 12/17/2018 Lipid Panel 10492 CHOLES TEROL/HDL 5.54 12/17/2018 Lipid Panel 20615 LDL (C ALCULATED) 140 mg/dL 12/17/2018 Lipid Panel 98676 LDL/HDL 3.41 12/17/2018 Lipid Panel 71359 INTERP RETATION 12/17/2018 Tsh 624588 TSH 1.190 uIU/mL 12/17/2018 Testosterone Serum 534472 TESTOSTERONE 44.1 ng/dL 08/18/2018 Hemoglobin 038169 WBC 7.62 thou/uL 08/17/2018 Hemoglobin 710461 RBC 5.23 mil/uL 08/17/2018 Hemoglobin 969378 HEMOGL OBIN 15.0 g/dL 08/17/2018 Hemoglobin 947092 HEMATO CRIT 45.0 % 08/17/2018 Hemoglobin 567509 MCV 86.0 fL 08/17/2018 Hemoglobin 733303 MCH 28.7 pg 08/17/2018 Hemoglobin 394134 MCHC 33.3 g/dL 08/17/2018 Hemoglobin 545226 RDW-CV 12.9 % 08/17/2018 Hemoglobin 530992 PLATEL ET COUNT 313 thou/uL 08/17/2018 Hematocrit 647938 WBC 7.62 thou/uL 08/17/2018 Hematocrit 850860 RBC 5.23 mil/uL 08/17/2018 Hematocrit 708280 HEMOGL OBIN 15.0 g/dL 08/17/2018 Hematocrit 090934 HEMATO CRIT 45.0 % 08/17/2018 Hematocrit 328486 MCV 86.0 fL 08/17/2018 Hematocrit 275106 MCH 28.7 pg 08/17/2018 Hematocrit 977441 MCHC 33.3 g/dL 08/17/2018 Hematocrit 175515 RDW-CV 12.9 % 08/17/2018 Hematocrit 860973 PLATEL ET COUNT 313 thou/uL 08/17/2018 Culture Mrsa 608068 MRSA CULTURE SEE NOTES 06/21/2018 Comp. Metabolic Panel (14) 35936 GLUCOSE 101 mg/dL 06/18/2018 Comp. Metabolic Panel (14) 20281 BUN 18 mg/dL 06/18/2018 Comp. Metabolic Panel (14) 93539 CREATININE 0.99 mg/dL 06/18/2018 Comp. Metabolic Panel (14) 84113 SODIUM 141 mmol/L 06/18/2018 Comp. Metabolic Panel (14) 24659 POTASSIUM 4.3 mmol/L 06/18/2018 Comp. Metabolic Panel (14) 17141 CHLORIDE 103 mmol/L 06/18/2018 Comp. Metabolic Panel (14) 27045 CARBON DIOXIDE 23 mmol/L 06/18/2018 Comp. Metabolic Panel (14) 71082 CALCIUM 9.8 mg/dL 06/18/2018 Comp. Metabolic Panel (14) 93867 TOTAL PROTEIN 7.1 g/dL 06/18/2018 Comp. Metabolic Panel (14) 75197 ALBUMIN 5.2 g/dL 06/18/2018 Comp. Metabolic Panel (14) 25436 ALKALINE PHOSPHATASE 65 U/L 06/18/2018 Comp. Metabolic Panel (14) 84542 TOTAL BILIRUBIN 0.6 mg/dL 06/18/2018 Comp. Metabolic Panel (14) 33312 SGOT (AST) 21 U/L 06/18/2018 Comp. Metabolic Panel (14) 98801 SGPT (ALT) 24 U/L 06/18/2018 Comp. Metabolic Panel (14) 89719 eGFR (mL/min/1.73m2) 115 06/18/2018 Comp. Metabolic Panel (14) 66374 INTERPRETATION 06/18/2018 Cbc With Differential/Platelet 39605 WBC 4.55 thou/uL 8 Cbc With Differential/Platelet 31192 RBC 5.13 mil/uL 06/18/2018 Cbc With Differential/Platelet 69660 HEMOGLOBIN 14.4 g/dL 06/18/2018 Cbc With Differential/Platelet 99360 HEMATOCRIT 44.1 % 06/18/2018 Cbc With Differential/Platelet 15436 MCV 85.9 fL 06/18/2018 Cbc With Differential/Platelet 69917 MCH 28.1 pg 06/18/2018 Cbc With Differential/Platelet 03880 MCHC 32.7 g/dL 06/18/2018 Cbc With Differential/Platelet 89271 RDW-CV 13.4 % 06/18/2018 Cbc With Differential/Platelet 21463 PLATELET COUNT 287 thou/uL 06/18/2018 Cbc With Differential/Platelet 67323 NEUTROPHIL % 53.9 % 06/18/2018 Cbc With Differential/Platelet 50124 LYMPHOCYTE % 36.1 % 06/18/2018 Cbc With Differential/Platelet 29878 MONOCYTE % 7.4 % 06/18/2018 Cbc With Differential/Platelet 02246 EOS % 1.9 % 06/18/2018 Cbc With Differential/Platelet 81700 BASO % 0.8 % 06/18/2018 Cbc With Differential/Platelet 21040 NEUTROPHIL ABS # 2.45 thou/uL 06/18/2018 Cbc With Differential/Platelet 03801 LYMPH ABS # 1.64 thou/uL 06/18/2018 Cbc With Differential/Platelet 34465 MONOCYTE ABS # 0.34 thou/uL 06/18/2018 Cbc With Differential/Platelet 26847 EOS ABS # 0.09 thou/uL 8 Cbc With Differential/Platelet 14322 BASO ABS # 0.04 thou/uL 06/18/2018 Review [...] clear 05/20/2018 None Full Exam - General 1995 Ears/Nose/Throat lips/teeth/gingiva Overall: benign lips 05/20/2018 None [...] Procedure Codes Date THER/PROPH/DIAG INJ SC/IM CPT-4: 67941 12/29/2018 THER/PROPH/DIAG INJ SC/IM CPT-4: 22328 12/16/2018 THER/PROPH/DIAG INJ SC/IM CPT-4: 82053 11/15/2018 THER/PROPH/DIAG INJ SC/IM CPT-4: 64546 09/28/2018 THER/PROPH/DIAG INJ SC/IM CPT-4: 96366 09/16/2018 THER/PROPH/DIAG INJ SC/IM CPT-4: 63194 09/02/2018 THER/PROPH/DIAG INJ SC/IM CPT-4: 27550 08/19/2018 IMMUNIZATION ADMIN CPT- 4: 34390 08/02/2018 FLU VAC NO PRSV 4 VA L 3 YRS+ CPT-4: 57537 08/02/2018 THER/PROPH/DIAG INJ SC/IM CPT-4: 17164 07/15/2018 THER/PROPH/DIAG INJ SC/IM CPT-4: 07781 06/17/2018 THER/PROPH/DIAG INJ SC/IM CPT-4: 74688 05/21/2018 THER/PROPH/DIAG INJ SC/IM CPT-4: 02090 08/03/2015 ROCEPHIN, PER 250 MG CPT-4: J0696 08/03/2015 Vital Signs Date Vital 12/29/2018 Blood Pressure 1: 144/90 Code: 8480-6 BMI: 34.8 Code: 47006-2 Heart Rate 1: 91 bpm Height: 5'7" SpO2: 98% Weight: 222 lbs 12/20/2018 Blood Pressure 1: 124/76 Code: 8480-6 BMI: 35.4 Code: 64098-1 Heart Rate 1: 79 bpm Height: 5'7" SpO2: 99% Weight: 226 lbs 12/16/2018 Blood Pressure 1: 160/90 Code: 8480-6 BMI: 35.4 Code: 20024-8 Heart Rate 1: 90 bpm Height: 5'7" SpO2: 95% Weight: 226 lbs 11/01/2018 Blood Pressure 1: 146/82 Code: 8480-6 BMI: 36.0 Code: 44215-9 Heart Rate 1: 87 bpm Height: 5'7" SpO2: 98% Weight: 230 lbs 09/24/2018 Blood Pressure 1: 140/82 Code: 8480-6 BMI: 36.0 Code: 00410-4 Heart Rate 1: 86 bpm Height: 5'7" SpO2: 98% Temperature: 37.1 (C ) / 98.7 (F) Weight: 230 lbs 08/16/2018 Blood Pressure 1: 148/82 Code: 8480-6 Blood Pressure 2: 157/92 Code: 8480-6 BMI: 35.9 Code: 34232-8 Heart Rate 1: 72 bpm Height: 5'7" SpO2: 96% Weight: 229 lbs 08/02/2018 Blood Pressure 1: 142/86 Code: 8480-6 BMI: 35.2 Code: 38341-4 Heart Rate 1: 101 bpm Height: 5'7" SpO2: 97% Weight: 225 lbs 05/31/2018 Blood Pressure 1: 134/82 Code: 8480-6 BMI: 35.4 Code: 17678-5 Heart Rate 1: 91 bpm Height: 5'7" SpO2: 96% Weight: 226 lbs 05/20/2018 Blood Pressure 1: 160/100 Code: 8480-6 BMI: 35.2 Code: 32836-8 Heart Rate 1: 89 bpm Height: 5'7" SpO2: 98% Weight: 225 lbs 05/10/2018 Blood Pressure 1: 124/70 Code: 8480-6 BMI: 35.1 Code: 81875-9 Heart Rate 1: 93 bpm Height: 5'7" SpO2: 99% Weight: 224 lbs 01/15/2018 Blood Pressure 1: 142/92 Code: 8480-6 BMI: 36.3 Code: 98482-9 Heart Rate 1: 77 bpm Height: 5'7" SpO2: 98% Weight: 232 lbs 12/15/2017 Blood Pressure 1: 156/98 Code: 8480-6 BMI: 36.2 Code: 07287-4 Heart Rate 1: 87 bpm Height: 5'7" [...] eye 01/15/2018 None vision change Quality [place] 01/15/2018 None vision change Quality lo ss [...] vision 12/15/2017 None vision change Quality [place] 12/15/2017 None vision change Onset and Resolution sudden in onset 12/15/2017 None vision change Onset of Symptom 3.5 weeks ago 12/15/2017 None vision change Limitation on Activities severely limits vision 12/15/2017 None vision change Triggers n o known associated factors 12/15/2017 None Advance Directives No Advance Directive data Encounters Encounter Performer Loca tion Codes Date ([id number]) [id number] EST. 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 PATIENT, LEVEL III Diagnosis: Pain in right arm[ICD10: M79.601] Sonia Gonzalez MD, [facility] CPT-4: 98802 12/20/2018 ([id number]) [id number] EST. 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 PATIENT, LEVEL III Diagnosis: Acute upper respiratory infection, unspecified[ICD10: J06.9] Diagnosis: Other allergic rhinitis[ICD10: J30.89] Sonia Gonzalez MD, [facility] CPT-4: 42220 09/24/2018 ([id number]) 24521 EST. 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 P ATIENT, LEVEL IV Diagnosis: Essential (primary) hypertension[ICD10: I10] Diagnosis: Cervicalgia[ICD10: M54.2] Radha Gonzalez MD, [facility] CPT-4: 19079 05/31/2018 ([id number]) 62099 EST. 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] Diagnosis: Obstructive sleep apnea (adult) (pediatric)[ICD10: G47.33] Radha Gonzalez MD, [facility] CPT-4: 06966 01/15/2018 ([id number]) PREV VISIT N EW AGE 40-64 Diagnosis: Encounter for general adult medical examination with abnormal findings[ICD10: Z00.01] Radha Gonzalez MD, [facility] CPT-4: 50217 12/15/2017 ([id number]) OFFICE/OUTPA TIENT VISIT NEW Diagnosis: Laceration of thumb[ICD9: 883.0] [facility] CPT-4: 44534 08/03/2015 Plan of Care Planned Activity Notes C odes Status Date Visit Plan: Chronic neck and back p ain - pt has chronic pain - has been maintained on current medications, has not sought out other medications, only uses PRN pain medications as directed, and understands the co nsequences of over-medication. Hypogonadism - continue with testosterone injections. 12/29/2018 Patient Education: Patient Medication Summary Completed 12/29/2018 Patient Education: .Cervicalgia Neck Pain Completed 12/29/2018 Patient Education: Patient Medication Summary Completed 12/21/2018 Care Plan: %Hba1C add to blood from 12/17 LOINC : 23049-6 Pending 12/21/2018 Visit Plan: Right arm pain - dayna deformity noted - will refer to ortho - The pt is to use prn antiinflammatories to manage acute pain. The patient is to call the office if the pain is worsening or does not improve. 12/20/2018 Appointment: Sonia Potter WPtel: [facility] (15 min) Moderate 12/20/2018 Patient [...] testosterone. 12/16/2018 [phone] ([facility] min) Moderate 12/16/2018 Patient Education: [...] needed. 11/01/2018 Appointment: Radha Gonzalez WPtel: [phone] [facility] (15 min) Moderate 11/01/2018 Patient Education: Patient [...] spray. 09/24/2018 Appointment: Sonia Potter WPtel: [phone] [facility] (15 min) Moderate 09/24/2018 Patient [...] at home. Multiple symptoms - referral to [facility] - appt in September 30, 2018. 08/16/2018 [facility]ment: [phone] (15 min) Moderate 08/16/2018 Patient Education: [...] at home. Multiple symptoms - referral to [facility] - rashes, hypogonadism, optic neuritis - all points to possible autoimmune syndrome. Spinal stenosis - of thoracic region - pt to talk to Dr. Dunaway about referral to a different specialist for his mid- back. Hypogonadism - continue with testosterone. Flu shot given today in clinic. 08/02/2018 App[facility]ment: [phone] [facility] (15 min) Moderate 08/02/2018 Patient Education: Patient Medication Summary Completed 08/02/2018 Care Plan: Referral Order SNOMED-CT : 964686916 Pending 08/02/2018 Appointment: Injection 07/15/2018 Patient Education: [...] home. [facility]ervical spine stenosis [facility] I have also recommended a Referral to Dr. Dunaway. I have called and talked to Dr. Dunaway - he looked at the pt's imaging and agrees that getting the pt in to be seen soon would be a preferred option. 05/31/2018 App[facility]ment: [phone] [facility] [place] (15 min) Moderate 05/31/2018 Patient Education: Patient Medication Summary Completed 05/31/2018 Care Plan: Referral Order SNOMED-CT : 026221115 Pending 05/31/2018 Care Plan: Referral Order SNOMED-CT : 351841454 Pending 05/31/2018 Appointment: Injection 05/21/2018 Patient Education: Patient Medication Summary Completed 05/21/2018 Care Plan: Referral Order SNOMED-CT : 764090562 Pending 05/21/2018 Visit Plan: Cervical and thoracic s tenosis with spinal cord compression -refer for appt with Dr Marr -rx for hydrocodone for pain-start gabapentin at bedtime Soft tissue lesion-left chest-schedule CTfor further evaluation HTN-elevated today-hold adderall-monitor blood pressure 05/20/2018 Appointment: Hannah Simons WPtel: [phone] [place] (15 min) Moderate 05/20/2018 [...] this. 05/10/2018 Appointment: Sonia Potter [facility]el[facility] [place] (15 min) Moderate 05/10/2018 Patient Education: Patient Medication Summary Completed 05/10/2018 Visit Plan: Sleep apnea - rx for cp ap - actually autopap was recommended and pt given rx today. HTN - referral to dr. kapoor - pt needs stress testing. 01/15/2018 Appointment: Radha Gonzalez WPtel: [facility] (15 min) Moderate 01/15/2018 Patient Education: Patient Medication Summary Completed 01/15/2018 Care Plan: Referral Order SNOMED-CT : [id number] Pending 01/15/2018 Visit Plan: Well Adult - [...] month. 12/15/2017 Appointment: Radha Gonzalez WPtel: [facility] New Patient 12/15/2017 Patient Education: Patient Medication Summary Completed 12/15/2017 Care Plan: CHEST X-RAY 2VW FRONTAL&LATL LOINC : 48656-3 Pending 12/15/2017 App[facility]ment: [phone] [facility] (15 min) Moderate 12/08/2017 Appointment: (S) New Patient 08/13/2015 Visit Plan: steri strip placed on t humb of right hand - antibiotic shot given to patient and rx for keflex 500mg qid x 10 days given to the patient to fill prior to his trip to [place] 08/03/2015 Patient Education: Patient Medication Summary Completed 08/03/2015 Referral: External, Ordering Provider 08/03 Referral info faxed to [place]. Patient informed to be expecting a call from them with appt info Appointment Requested Referral: External, Ordering Provider Referral Appointment Requested Referral: External, Ordering Provider I called today; they will call him to schedule. Completed Referral: Armani Dunaway Referral Appointment Requested Referral: Mayte Kapoor Referral Appointment Requested Referral: [facility] [phone] [facility] Referral Appointment Requested Referral: External, Ordering Provider [...] at home. Multiple symptoms - referral to [facility] - rashes, hypogonadism, optic neuritis [...] at home. Multiple symptoms - referral to [facility] - appt in September 30, [...] to fill prior to his trip to [place] will refill meds for 90 days Will [...]
--- OUTSIDE RECORDS SUMMARY | 2020-04-28 00:46 | XMS REPORT | CCD ---
Author Author Nilton Gonzalez Organization [facility] Address [address] [place] [address] Phone Care Team Providers Care Mri Tech Name Role Phone PP Unavailable CCM Unavailable Summary Purpose Interface Exchange Insurance Providers Payer name Policy type / Coverage type Covered alliance party ID Effective Begin Date Effective End Date [employer] [id number] 2018 Unknown Family history Brother Diagnosis Age At Onset Alcoholism Unknown Father Diagnosis Age At Onset Hypercholesterolemia Unknown Social History Social History Element Codes Description Effective Dates Marital status Unknown S chanda 12/15/2017 Number of children Unknown 1 12/15/2017 Employment 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 Unknown Has never used illegal drugs 018 Living arrangements Unknown House 08/04/2015 Allergies, Adverse Reactions, Alerts Substance Reaction Codes Entered Date Inactivated Date Status * NO KNOWN DRUG ARNOLDO RGIES Unknown 08/03/2015 No Inactive Date Active Past Medical History Illness Codes Condition Status Onset Date Resolved Date Impaired fasting glu cose ICD-9: 790.21 ICD-10: R73.01 Active 12/21/2018 Unknown Pain in right arm ICD-9: 729.5 ICD-10: M79.601 Active 12/20/2018 Unknown Essential (primary) hypertension ICD-9: 401.1 ICD-10: I10 Active 12/15/2017 Unknown Ischemic optic neuro sergey, 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 Active 12/15/2017 Unknown Obstructive sleep ap nura (adult) (pediatric) ICD-9: 327.23 ICD-10: G47.33 Active 01/15/2018 Unknown Other fatigue ICD-9: 780.79 ICD-10: R53.83 Active 05/10/2018 Unknown Other malaise ICD-9: 780.79 ICD-10: R53.81 Active 05/10/2018 Unknown 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 Active 05/20/2018 Unknown Cervicalgia ICD-9: 723.1 ICD-10: M54.2 Active 05/10/2018 Unknown Spinal stenosis, tho racic [...] Condition Codes Effectiv e Dates Condition Status Impaired fasting glu cose ICD-9: 790.21 ICD-10: R73.01 12/21/2018 Active Pain in right arm ICD-9: 729.5 ICD-10: M79.601 12/20/2018 Active Essential (primary) hypertension ICD-9: 401.1 ICD-10: I10 12/15/2017 Active Ischemic optic neuro sergey, 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 12/15/2017 Active Obstructive sleep ap nura (adult) (pediatric) ICD-9: 327.23 ICD-10: G47.33 01/15/2018 Active Other fatigue ICD-9: 780.79 ICD-10: R53.83 05/10/2018 Active Other malaise ICD-9: 780.79 ICD-10: R53.81 05/10/2018 Active 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 05/20/2018 Active Cervicalgia ICD-9: 723.1 ICD-10: M54.2 05/10/2018 Active Spinal stenosis, tho racic region [...] Fill Instructions Adderall 30 mg tablet RxNorm: 451001 2 Tablet(s) PO daily 12/29/2018 01/27/2019 Active hydrocodone 5 mg-fanny taminophen 325 mg tablet RxNorm: 094922 1-2 Tablet(s) PO Q6 a s needed 12/29/2018 No Stop Date Active hydrocodone 5 mg-fanny taminophen 325 mg tablet RxNorm: 994286 1 Tablet(s) PO TID RI N 12/28/2018 12/28/2018 In active testosterone cypiona te 200 mg/mL intramuscular oil RxNorm: 8762640 1.25 Milliliter(s) IM 2 x month 12/22/2018 04/12/2019 Active gabapentin 300 mg ca psule RxNorm: 214321 1 Capsule(s) PO QID 12/16/2018 12/10/2019 Active Voltaren 1 % topical gel RxNorm: 231322 2 Gram(s) APPLY TOPIC ALLY four TIMES A DAY 12/16/2018 01/20/2019 Ac tive testosterone cypiona te 200 mg/mL intramuscular oil RxNorm: 6084064 Milliliter(s) IM 12/16/2018 12/16/2018 In active trazodone 100 mg tablet RxNorm: 603671 TAKE ONE TABLET BY MOUTH EVERY NIGHT AT BEDTIME 12/07/2018 06/04/2019 Active hydrocodone 5 mg-fanny taminophen 325 mg tablet RxNorm: 923939 1 Tablet(s) PO TID RI N 11/29/2018 12/27/2018 In active Adderall 30 mg tablet RxNorm: 207044 2 Tablet(s) PO daily 11/29/2018 12/28/2018 Inactive clindamycin 1 %-arthur oyl peroxide 5 % topical gel RxNorm: 361979 TOP APPLY TO AFFECTED AREA(S) ON SERNA TWO TIMES A DAY 11/17/2018 No Stop Date Active testosterone cypiona te 200 mg/mL intramuscular oil RxNorm: 8249312 1 Milliliter(s) IM 2 x month 11/17/2018 12/21/2018 Inactive Zorvolex 35 mg capsule RxNorm: 8784763 1 Capsule(s) PO TID as needed for pain 11/15/2018 05/13/2019 Ac tive ketoconazole 2 % top ical cream RxNorm: 065135 APPLY ONE GRAM TOPICA LLY TWICE A DAY 11/15/2018 11/29/2018 In active testosterone cypiona te 200 mg/mL intramuscular oil RxNorm: 0721957 1 Milliliter(s) IM 11/15/2018 11/14/2018 Inactive hydrocodone 5 mg-fanny taminophen 325 mg tablet RxNorm: 235606 1 Tablet(s) PO TID RI N 11/02/2018 11/28/2018 In active Singulair 10 mg tablet RxNorm: 187544 1 Tablet(s) PO daily 11/01/2018 07/28/2019 Active testosterone cypiona te 200 mg/mL intramuscular oil RxNorm: 6992654 1 Milliliter(s) IM 2 x month 11/01/2018 11/16/2018 Inactive Adderall 30 mg tablet RxNorm: 150889 2 Tablet(s) PO daily 10/29/2018 11/27/2018 Inactive gabapentin 300 mg ca psule RxNorm: 735460 1 Capsule(s) PO BID m ay take TID 10/19/2018 12/15/2018 In active gabapentin 300 mg ca psule RxNorm: 510707 1 Capsule(s) PO BID m ay take TID 10/19/2018 10/18/2018 In active alprazolam 1 mg tablet RxNorm: 895312 1 Tablet(s) PO TID as needed 10/15/2018 12/13/2018 Inactive testosterone cypiona te 200 mg/mL intramuscular oil RxNorm: 191529 Milliliter(s) IM 09/28/2018 09/28/2018 In active pravastatin 40 mg ta blet RxNorm: 960421 TAKE ONE TABLET BY [facility] EVERY NIGHT AT BEDTIME 09/27/2018 09/21/2019 Active Tamiflu 75 mg capsule RxNorm: 424387 1 Capsule(s) PO BID 09/24/2018 09/28/2018 Inactive Adderall 30 mg tablet RxNorm: 967244 2 Tablet(s) PO daily 09/20/2018 10/19/2018 Inactive hydrocodone 5 mg-fanny taminophen 325 mg tablet RxNorm: 266764 1 Tablet(s) PO TID RI N 09/20/2018 11/01/2018 In active testosterone cypiona te 200 mg/mL intramuscular oil RxNorm: 601302 Milliliter(s) IM 09/16/2018 09/16/2018 In active testosterone cypiona te 200 mg/mL intramuscular oil RxNorm: 133672 1 Milliliter(s) IM 09/02/2018 09/02/2018 Inactive testosterone cypiona te 200 mg/mL intramuscular oil RxNorm: 310604 Milliliter(s) IM 08/19/2018 08/19/2018 In active tramadol 50 mg tablet RxNorm: 999470 1-2 Tablet(s) PO Q6 as needed 08/18/2018 No Stop Date Active Adderall 30 mg tablet RxNorm: 945466 2 Tablet(s) PO daily 08/18/2018 09/16/2018 Inactive Dexilant 60 mg capsu le, delayed release RxNorm: 449169 1 Capsule(s) PO BID 08/17/2018 08/11/2019 Ac tive atenolol 50 mg tablet RxNorm: 026382 1 Tablet(s) PO BID 08/17/2018 08/11/2019 Active ketoconazole 2 % top ical cream RxNorm: 629535 1 Gram(s) TOP BID 08/17/2018 08/26/2018 Inactive Zorvolex 35 mg capsule RxNorm: 0579503 1 Capsule(s) PO TID as needed for pain 08/17/2018 08/16/2018 In active Zorvolex 35 mg capsule RxNorm: 2216535 1 Capsule(s) PO TID as needed for pain 08/17/2018 11/14/2018 In active ketoconazole 2 % top ical cream RxNorm: 551080 1 Gram(s) TOP BID 08/02/2018 08/11/2018 Inactive hydrocortisone 2.5 % topical cream RxNorm: 763544 1 Application TOP BID 07/21/2018 No Stop Date Active Adderall 30 mg tablet RxNorm: 005193 2 Tablet(s) PO daily 07/20/2018 08/17/2018 Inactive testosterone cypiona te 200 mg/mL intramuscular oil RxNorm: 375908 Milliliter(s) IM 07/15/2018 07/15/2018 In active alprazolam 1 mg tablet RxNorm: 424723 1 Tablet(s) PO TID as needed 07/12/2018 09/07/2018 Inactive hydrocodone 5 mg-fanny taminophen 325 mg tablet RxNorm: 054110 1 Tablet(s) PO TID RI N 06/30/2018 09/19/2018 In active pravastatin 40 mg ta blet RxNorm: 922554 1 Tablet(s) PO QHS 06/18/2018 09/15/2018 Inactive Adderall 30 mg tablet RxNorm: 617952 2 Tablet(s) PO daily 06/18/2018 07/17/2018 Inactive testosterone cypiona te 200 mg/mL intramuscular oil RxNorm: 592905 Milliliter(s) IM 06/17/2018 06/17/2018 In active Voltaren 1 % topical gel RxNorm: 558567 APPLY TOPICALLY TWO T IMES A DAY 06/16/2018 07/21/2018 In active Vitamin D2 50,000 un it capsule RxNorm: 4665477 1 Capsule(s) PO QW 05/21/2018 No Stop Date Active Adderall 30 mg tablet RxNorm: 347336 2 Tablet(s) PO daily 05/21/2018 06/17/2018 Inactive testosterone cypiona te 200 mg/mL intramuscular oil RxNorm: 215264 Milliliter(s) IM 05/21/2018 05/21/2018 In active testosterone cypiona te 200 mg/mL intramuscular oil RxNorm: 5982838 1 Milliliter(s) IM monthly 05/20/2018 09/16/2018 Inactive testosterone cypiona te 200 mg/mL intramuscular oil RxNorm: 736117 1 Milliliter(s) IM monthly 05/20/2018 05/19/2018 Inactive hydrocodone 5 mg-fanny taminophen 325 mg tablet RxNorm: 468270 1 Tablet(s) PO TID RI N 05/20/2018 06/29/2018 In active Vitamin D2 50,000 un it capsule RxNorm: 9008837 1 Capsule(s) PO QW 05/18/2018 05/20/2018 Inactive triamcinolone aceton destin 0.025 % topical cream RxNorm: 3111459 1 Application TOP BI D 05/13/2018 No Stop Date Active Dexilant 60 mg capsu le, delayed release RxNorm: 312730 1 Capsule(s) PO BID 05/13/2018 08/16/2018 In active Zorvolex 35 mg capsule RxNorm: 5670341 1 Capsule(s) PO TID as needed for pain 05/12/2018 08/09/2018 In active Voltaren 1 % topical gel RxNorm: 647248 1 Application TOP BID 05/12/2018 06/15/2018 Inactive acyclovir 400 mg tablet RxNorm: 648912 1 Tablet(s) PO TID as needed take at ons et of symptoms of cold sores x 5 days 05/10/2018 No Stop Date Active paroxetine 20 mg tablet RxNorm: 8656860 2 Tablet(s) PO QHS 05/10/2018 10/31/2019 Active ProAir HFA 90 mcg/ac tuation aerosol inhaler RxNorm: 381485 1 Puff(s) INH QID as needed 05/10/2018 No Stop Date Active baclofen 20 mg tablet RxNorm: 352618 1 Tablet(s) PO TID as needed muscle spas ms 05/10/2018 06/08/2018 In active Singulair 10 mg tablet RxNorm: 109442 1 Tablet(s) PO daily 05/10/2018 08/07/2018 Inactive atenolol 50 mg tablet RxNorm: 197226 1 Tablet(s) PO BID 05/10/2018 08/07/2018 Inactive triamcinolone aceton destin 0.025 % topical cream RxNorm: 4690071 1 Application TOP BI D 05/10/2018 05/12/2018 In active tramadol 50 mg tablet RxNorm: 504477 1 Tablet(s) PO TID as needed 05/10/2018 05/19/2018 Inactive Dexilant 60 mg capsu le, delayed release RxNorm: 039932 1 Capsule(s) PO daily 05/10/2018 05/12/2018 In active alprazolam 1 mg tablet RxNorm: 804839 1 Tablet(s) PO TID as needed 05/10/2018 08/06/2018 Inactive trazodone 100 mg tablet RxNorm: 910839 1 Tablet(s) PO QHS 05/10/2018 11/05/2018 Inactive cyclobenzaprine 10 m g tablet RxNorm: 142429 1 Tablet(s) PO TID as needed muscle spasms 05/07/2018 07/12/2018 Inactive trazodone 100 mg tablet RxNorm: 998571 1 Tablet(s) PO QHS 05/07/2018 05/09/2018 Inactive Adderall 30 mg tablet RxNorm: 954715 2 Tablet(s) PO daily 04/19/2018 05/18/2018 Inactive alprazolam 1 mg tablet RxNorm: 326299 1 Tablet(s) PO BID 04/19/2018 05/09/2018 Inactive Adderall 30 mg tablet RxNorm: 144636 2 Tablet(s) PO daily 03/26/2018 04/18/2018 Inactive paroxetine 20 mg tablet RxNorm: 2704296 2 Tablet(s) PO QHS 03/15/2018 05/09/2018 Inactive Adderall 30 mg tablet RxNorm: 371186 2 Tablet(s) PO daily 02/25/2018 03/25/2018 Inactive cyclobenzaprine 10 m g tablet RxNorm: 057403 1 Tablet(s) PO TID as needed muscle spasms 02/22/2018 05/06/2018 Inactive tramadol 50 mg tablet RxNorm: 449654 1 Tablet(s) PO TID as needed 02/22/2018 03/07/2018 Inactive tramadol 50 mg tablet RxNorm: 421334 1 Tablet(s) PO TID as needed 02/22/2018 02/21/2018 Inactive trazodone 100 mg tablet RxNorm: 851456 1 Tablet(s) PO QHS 02/03/2018 05/03/2018 Inactive trazodone 100 mg tablet RxNorm: 536679 1 Tablet(s) PO QHS 02/03/2018 02/02/2018 Inactive Adderall 30 mg tablet RxNorm: 227614 2 Tablet(s) PO daily 01/27/2018 02/18/2018 Inactive acyclovir 400 mg tablet RxNorm: 872539 1 Tablet(s) PO TID as needed take at ons et of symptoms of cold sores x 5 days 01/15/2018 05/09/2018 Inactive Bactrim DS 800 mg-16 0 mg tablet RxNorm: 776971 1 Tablet(s) PO BID 01/11/2018 01/17/2018 Inactive Bactrim DS 800 mg-16 0 mg tablet RxNorm: 094737 1 Tablet(s) PO BID 01/11/2018 01/10/2018 Inactive Dexilant 60 mg capsu le, delayed release RxNorm: 809929 1 Capsule(s) PO daily 12/23/2017 05/09/2018 In active Dexilant 60 mg capsu le, delayed release RxNorm: 018312 1 Capsule(s) PO daily 12/23/2017 12/22/2017 In active atenolol 50 mg tablet RxNorm: 307796 1 Tablet(s) PO BID 12/15/2017 05/09/2018 Inactive alprazolam 1 mg tablet RxNorm: 926470 1-1.5 Tablet(s) PO daily 12/15/2017 04/18/2018 Inactive ceftriaxone 500 mg s olution for injection RxNorm: 4142390 Inj 08/03/2015 08/03/2015 Inactive paroxetine 20 mg tablet RxNorm: 0263683 2 Tablet(s) PO QHS 08/01/2015 10/29/2015 Inactive pravastatin 40 mg ta blet RxNorm: 115713 1/2 Tablet(s) PO QHS 08/01/2015 12/14/2017 Inactive Trazadone 100mg 100 mg RxNorm: 1 PO daily 08/01/2015 11/27/2015 Inactive Trazadone 100mg 100 mg RxNorm: 1 PO daily 08/01/2015 05/04/2018 Inactive atenolol 50 mg tablet RxNorm: 925817 1 Tablet(s) PO daily 08/01/2015 10/29/2015 Inactive ibuprofen 800 mg tablet RxNorm: 685114 1 Tablet(s) PO BID -TID No Start Date Active Fish Oil 360 mg-1,20 0 mg capsule RxNorm: 073403 1 Capsule(s) PO BID No Start Date Active Zyrtec 10 mg tablet RxNorm: 6169535 1 Tablet(s) PO daily No Start Date Active pravastatin 40 mg ta blet RxNorm: 873085 1/2 Tablet(s) PO QHS No Start Date 07/31/2015 Inactive Benadryl Allergy 25 mg tablet RxNorm: 4117919 1 Tablet(s) PO daily No Start Date 07/19/2018 Inactive Adderall 30 mg tablet RxNorm: 215215 2 Tablet(s) PO daily No Start Date 01/26/2018 Inactive Aspirin Low Dose 81 mg tablet,delayed release RxNorm: 373060 1 Tablet(s) PO BID No Start Date 07/19/2018 Inactive Singulair 10 mg tablet RxNorm: 016822 1 Tablet(s) PO daily No Start Date 05/09/2018 Inactive cyclobenzaprine 10 m g tablet RxNorm: 234899 1 Tablet(s) PO TID as needed muscle spasms No Start Date 02/21/2018 Inactive Trazadone 100mg 100 mg RxNorm: 1 PO daily No Start Date 07/31/2015 Inactive clindamycin 1 %-arthur oyl peroxide 5 % topical gel RxNorm: 575316 TOP APPLY TO AFFECTED AREA(S) ON SERNA TWO TIMES A DAY No Start Date 11/16/2018 Inactive hydrocortisone 2.5 % topical cream RxNorm: 540134 1 Application TOP BID No Start Date 07/20/2018 Inactive alprazolam 1 mg tablet RxNorm: 562883 2 Tablet(s) PO daily No Start Date 12/14/2017 Inactive tramadol 50 mg tablet RxNorm: 956739 1-2 Tablet(s) PO Q6 as needed No Start Date 08/17/2018 Inactive Vitamin D2 50,000 un it capsule RxNorm: 8436039 1 Capsule(s) PO QW No Start Date 05/17/2018 Inactive pantoprazole 40 mg t ablet,delayed release RxNorm: 543236 1 Tablet(s) PO BID No Start Date 12/22/2017 Inactive atenolol 50 mg tablet RxNorm: 941918 1 Tablet(s) PO daily No Start Date 07/31/2015 Inactive paroxetine 20 mg tablet RxNorm: 459244 2 Tablet(s) PO QHS No Start Date 07/31/2015 Inactive Medication Administered Medication Codes Instruc tions Start Date Status testosterone cypionate 200 mg/mL intramuscular oil RxNorm: 1602909 Milliliter 12/16/2018 No longer Active testosterone cypionate 200 mg/mL intramuscular oil RxNorm: 4335203 1Milliliter 11/15/2018 No longer Active testosterone cypionate 200 mg/mL intramuscular oil RxNorm: 470586 Milliliter 09/28/2018 No longer Active testosterone cypionate 200 mg/mL intramuscular oil RxNorm: 499493 Milliliter 09/16/2018 No longer Active testosterone cypionate 200 mg/mL intramuscular oil RxNorm: 911985 1Milliliter 09/02/2018 No longer Active testosterone cypionate 200 mg/mL intramuscular oil RxNorm: 944030 Milliliter 08/19/2018 No longer Active testosterone cypionate 200 mg/mL intramuscular oil RxNorm: 716695 Milliliter 07/15/2018 No longer Active testosterone cypionate 200 mg/mL intramuscular oil RxNorm: 522752 Milliliter 06/17/2018 No longer Active testosterone cypionate 200 mg/mL intramuscular oil RxNorm: 523387 Milliliter 05/21/2018 No longer Active ceftriaxone 500 mg solution for injection RxNorm: 3613776 08/03/2015 No longer A ctive Immunizations Vaccine Codes Date Status Influenza CVX: 141 08/02 completed Tetanus, Diptheria, Pertussis CVX: 113 05/16/2011 completed Tetanus/Diptheria CVX: 113 05/16/2011 completed Assessments Condition Codes Effectiv e Dates Impaired fasting glucose ICD-10: R73 .01 ICD-9: 790.21 12/21/2018 Pain in right arm ICD-10: M79.601 ICD-9: 729.5 12/20/2018 Obstructive sleep apnea (adult) (pediatric) ICD-10: G47.33 ICD-9: 327.23 12/16/2018 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 ICD-9: 257.2 12/16/2018 Ischemic optic neuropathy, left eye ICD-10: H47.012 ICD-9: 377.41 12/16/2018 Other fatigue ICD-10: R53.83 ICD-9: 780.79 12/16/2018 Essential (primary) hypertension ICD -10: I10 ICD-9: 401.1 12/16/2018 Other malaise ICD-10: R53.81 ICD-9: 780.79 12/16/2018 Cervicalgia ICD-10: M54.2 ICD-9: 723.1 11/01/2018 Spinal stenosis, thoracic region ICD -10: M48.04 [...] Visit Reason For Visit Effective Dates Notes arm pain 12/20/2018 hypertension 12/16/2018 hypertension 11/01/2018 sinus congestion 09/24/2018 back pain 08/16/2018 back pain 08/02/2018 back pain 05/31/2018 back pain 05/20/2018 medication follow up 05/10/2018 vision change 01/15/2018 vision change 12/15/2017 Results Observation Observation Code Item Item Code Result Date Comp. Metabolic Panel (14) 82639 GLUCOSE 117 mg/dL 12/17/2018 Comp. Metabolic Panel (14) 37983 BUN 17 mg/dL 12/17/2018 Comp. Metabolic Panel (14) 05046 CREATININE 0.99 mg/dL 12/17/2018 Comp. Metabolic Panel (14) 95965 SODIUM 137 mmol/L 12/17/2018 Comp. Metabolic Panel (14) 40358 POTASSIUM 4.6 mmol/L 12/17/2018 Comp. Metabolic Panel (14) 50502 CHLORIDE 102 mmol/L 12/17/2018 Comp. Metabolic Panel (14) 86606 CARBON DIOXIDE 21 mmol/L 12/17/2018 Comp. Metabolic Panel (14) 20621 CALCIUM 9.4 mg/dL 12/17/2018 Comp. Metabolic Panel (14) 46702 TOTAL PROTEIN 7.5 g/dL 12/17/2018 Comp. Metabolic Panel (14) 10666 ALBUMIN 5.1 g/dL 12/17/2018 Comp. Metabolic Panel (14) 88335 ALKALINE PHOSPHATASE 79 U/L 12/17/2018 Comp. Metabolic Panel (14) 50103 TOTAL BILIRUBIN 0.5 mg/dL 12/17/2018 Comp. Metabolic Panel (14) 42545 SGOT (AST) 34 U/L 12/17/2018 Comp. Metabolic Panel (14) 34748 SGPT (ALT) 40 U/L 12/17/2018 Comp. Metabolic Panel (14) 87238 eGFR (mL/min/1.73m2) 115 12/17/2018 Comp. Metabolic Panel (14) 61996 INTERPRETATION 12/17/2018 Testosterone Serum 239333 TESTOSTERONE 96.8 ng/dL 12/17/2018 Cbc With Differential/Platelet 12590 WBC 5.61 thou/uL 9 Cbc With Differential/Platelet 02424 RBC 5.53 mil/uL 12/17/2018 Cbc With Differential/Platelet 82169 HEMOGLOBIN 15.4 g/dL 12/17/2018 Cbc With Differential/Platelet 86095 HEMATOCRIT 48.1 % 12/17/2018 Cbc With Differential/Platelet 26616 MCV 87.0 fL 12/17/2018 Cbc With Differential/Platelet 23265 MCH 27.8 pg 12/17/2018 Cbc With Differential/Platelet 82016 MCHC 32.0 g/dL 12/17/2018 Cbc With Differential/Platelet 37931 RDW-CV 13.9 % 12/17/2018 Cbc With Differential/Platelet 10672 PLATELET COUNT 294 thou/uL 12/17/2018 Cbc With Differential/Platelet 15544 NEUTROPHIL % 71.2 % 12/17/2018 Cbc With Differential/Platelet 67718 LYMPHOCYTE % 22.2 % 12/17/2018 Cbc With Differential/Platelet 15896 MONOCYTE % 5.4 % 12/17/2018 Cbc With Differential/Platelet 54959 EOS % 0.9 % 12/17/2018 Cbc With Differential/Platelet 10602 BASO % 0.4 % 12/17/2018 Cbc With Differential/Platelet 06544 NEUTROPHIL ABS # 3.99 thou/uL 12/17/2018 Cbc With Differential/Platelet 84465 LYMPH ABS # 1.25 thou/uL 12/17/2018 Cbc With Differential/Platelet 98654 MONOCYTE ABS # 0.30 thou/uL 12/17/2018 Cbc With Differential/Platelet 55929 EOS ABS # 0.05 thou/uL 9 Cbc With Differential/Platelet 63111 BASO ABS # 0.02 thou/uL 12/17/2018 Lipid Panel 61291 CHOLES TEROL 227 mg/dL 12/17/2018 Lipid Panel 19512 TRIGLY CERIDES 229 mg/dL 12/17/2018 Lipid Panel 89194 HDL 41 mg/dL 12/17/2018 Lipid Panel 16457 CHOLES TEROL/HDL 5.54 12/17/2018 Lipid Panel 41431 LDL (C ALCULATED) 140 mg/dL 12/17/2018 Lipid Panel 18944 LDL/HDL 3.41 12/17/2018 Lipid Panel 64405 INTERP RETATION 12/17/2018 Tsh 042161 TSH 1.190 uIU/mL 12/17/2018 Testosterone Serum 273625 TESTOSTERONE 44.1 ng/dL 08/18/2018 Hemoglobin 797159 WBC 7.62 thou/uL 08/17/2018 Hemoglobin 174489 RBC 5.23 mil/uL 08/17/2018 Hemoglobin 578316 HEMOGL OBIN 15.0 g/dL 08/17/2018 Hemoglobin 038744 HEMATO CRIT 45.0 % 08/17/2018 Hemoglobin 113695 MCV 86.0 fL 08/17/2018 Hemoglobin 093543 MCH 28.7 pg 08/17/2018 Hemoglobin 826192 MCHC 33.3 g/dL 08/17/2018 Hemoglobin 969311 RDW-CV 12.9 % 08/17/2018 Hemoglobin 201980 PLATEL ET COUNT 313 thou/uL 08/17/2018 Hematocrit 284896 WBC 7.62 thou/uL 08/17/2018 Hematocrit 871822 RBC 5.23 mil/uL 08/17/2018 Hematocrit 222598 HEMOGL OBIN 15.0 g/dL 08/17/2018 Hematocrit 871752 HEMATO CRIT 45.0 % 08/17/2018 Hematocrit 091557 MCV 86.0 fL 08/17/2018 Hematocrit 075762 MCH 28.7 pg 08/17/2018 Hematocrit 736282 MCHC 33.3 g/dL 08/17/2018 Hematocrit 050357 RDW-CV 12.9 % 08/17/2018 Hematocrit 001215 PLATEL ET COUNT 313 thou/uL 08/17/2018 Culture Mrsa 596044 MRSA CULTURE SEE NOTES 06/21/2018 Comp. Metabolic Panel (14) 99244 GLUCOSE 101 mg/dL 06/18/2018 Comp. Metabolic Panel (14) 01558 BUN 18 mg/dL 06/18/2018 Comp. Metabolic Panel (14) 91778 CREATININE 0.99 mg/dL 06/18/2018 Comp. Metabolic Panel (14) 06089 SODIUM 141 mmol/L 06/18/2018 Comp. Metabolic Panel (14) 95117 POTASSIUM 4.3 mmol/L 06/18/2018 Comp. Metabolic Panel (14) 35484 CHLORIDE 103 mmol/L 06/18/2018 Comp. Metabolic Panel (14) 23992 CARBON DIOXIDE 23 mmol/L 06/18/2018 Comp. Metabolic Panel (14) 65927 CALCIUM 9.8 mg/dL 06/18/2018 Comp. Metabolic Panel (14) 59831 TOTAL PROTEIN 7.1 g/dL 06/18/2018 Comp. Metabolic Panel (14) 18721 ALBUMIN 5.2 g/dL 06/18/2018 Comp. Metabolic Panel (14) 26943 ALKALINE PHOSPHATASE 65 U/L 06/18/2018 Comp. Metabolic Panel (14) 62254 TOTAL BILIRUBIN 0.6 mg/dL 06/18/2018 Comp. Metabolic Panel (14) 12825 SGOT (AST) 21 U/L 06/18/2018 Comp. Metabolic Panel (14) 11182 SGPT (ALT) 24 U/L 06/18/2018 Comp. Metabolic Panel (14) 69541 eGFR (mL/min/1.73m2) 115 06/18/2018 Comp. Metabolic Panel (14) 06378 INTERPRETATION 06/18/2018 Cbc With Differential/Platelet 26949 WBC 4.55 thou/uL 8 Cbc With Differential/Platelet 00144 RBC 5.13 mil/uL 06/18/2018 Cbc With Differential/Platelet 75869 HEMOGLOBIN 14.4 g/dL 06/18/2018 Cbc With Differential/Platelet 17466 HEMATOCRIT 44.1 % 06/18/2018 Cbc With Differential/Platelet 45545 MCV 85.9 fL 06/18/2018 Cbc With Differential/Platelet 90911 MCH 28.1 pg 06/18/2018 Cbc With Differential/Platelet 63677 MCHC 32.7 g/dL 06/18/2018 Cbc With Differential/Platelet 93215 RDW-CV 13.4 % 06/18/2018 Cbc With Differential/Platelet 05398 PLATELET COUNT 287 thou/uL 06/18/2018 Cbc With Differential/Platelet 70505 NEUTROPHIL % 53.9 % 06/18/2018 Cbc With Differential/Platelet 00506 LYMPHOCYTE % 36.1 % 06/18/2018 Cbc With Differential/Platelet 35567 MONOCYTE % 7.4 % 06/18/2018 Cbc With Differential/Platelet 93713 EOS % 1.9 % 06/18/2018 Cbc With Differential/Platelet 52074 BASO % 0.8 % 06/18/2018 Cbc With Differential/Platelet 44428 NEUTROPHIL ABS # 2.45 thou/uL 06/18/2018 Cbc With Differential/Platelet 58322 LYMPH ABS # 1.64 thou/uL 06/18/2018 Cbc With Differential/Platelet 98885 MONOCYTE ABS # 0.34 thou/uL 06/18/2018 Cbc With Differential/Platelet 52115 EOS ABS # 0.09 thou/uL 8 Cbc With Differential/Platelet 87417 BASO ABS # 0.04 thou/uL 06/18/2018 Review of Systems System Result Effective Dates Constitutional No recent illness 12/20/2018 Constitutional No [...] Result Effective Dates Notes Full Exam - Orthopedics Constitutional general appearance [...] palp - RUE Upper arm: deformity 12/20/2018 adyna Full Exam - General 1994 Constitutional general [...] benign 12/15/2017 None Full Exam - General 1995 Musculoskeletal [...] Procedure Codes Date THER/PROPH/DIAG INJ SC/IM CPT-4: 45642 12/16/2018 THER/PROPH/DIAG INJ SC/IM CPT-4: 92571 11/15/2018 THER/PROPH/DIAG INJ SC/IM CPT-4: 34787 09/28/2018 THER/PROPH/DIAG INJ SC/IM CPT-4: 89455 09/16/2018 THER/PROPH/DIAG INJ SC/IM CPT-4: 36929 09/02/2018 THER/PROPH/DIAG INJ SC/IM CPT-4: 18066 08/19/2018 IMMUNIZATION ADMIN CPT- 4: 24710 08/02/2018 FLU VAC NO PRSV 4 VA L 3 YRS+ CPT-4: 98130 08/02/2018 THER/PROPH/DIAG INJ SC/IM CPT-4: 89687 07/15/2018 THER/PROPH/DIAG INJ SC/IM CPT-4: 47302 06/17/2018 THER/PROPH/DIAG INJ SC/IM CPT-4: 89280 05/21/2018 THER/PROPH/DIAG INJ SC/IM CPT-4: 39426 08/03/2015 ROCEPHIN, PER 250 MG CPT-4: J0696 08/03/2015 Vital Signs Date Vital 12/20/2018 Blood Pressure 1: 124/76 Code: 8480-6 BMI: 35.4 Code: 94756-5 Heart Rate 1: 79 bpm Height: 5'7" SpO2: 99% Weight: 226 lbs 12/16/2018 Blood Pressure 1: 160/90 Code: 8480-6 BMI: 35.4 Code: 93960-4 Heart Rate 1: 90 bpm Height: 5'7" SpO2: 95% Weight: 226 lbs 11/01/2018 Blood Pressure 1: 146/82 Code: 8480-6 BMI: 36.0 Code: 55523-9 Heart Rate 1: 87 bpm Height: 5'7" SpO2: 98% Weight: 230 lbs 09/24/2018 Blood Pressure 1: 140/82 Code: 8480-6 BMI: 36.0 Code: 33676-7 Heart Rate 1: 86 bpm Height: 5'7" SpO2: 98% Temperature: 37.1 (C ) / 98.7 (F) Weight: 230 lbs 08/16/2018 Blood Pressure 1: 148/82 Code: 8480-6 Blood Pressure 2: 157/92 Code: 8480-6 BMI: 35.9 Code: 81462-2 Heart Rate 1: 72 bpm Height: 5'7" SpO2: 96% Weight: 229 lbs 08/02/2018 Blood Pressure 1: 142/86 Code: 8480-6 BMI: 35.2 Code: 37005-3 Heart Rate 1: 101 bpm Height: 5'7" SpO2: 97% Weight: 225 lbs 05/31/2018 Blood Pressure 1: 134/82 Code: 8480-6 BMI: 35.4 Code: 81808-1 Heart Rate 1: 91 bpm Height: 5'7" SpO2: 96% Weight: 226 lbs 05/20/2018 Blood Pressure 1: 160/100 Code: 8480-6 BMI: 35.2 Code: 08994-6 Heart Rate 1: 89 bpm Height: 5'7" SpO2: 98% Weight: 225 lbs 05/10/2018 Blood Pressure 1: 124/70 Code: 8480-6 BMI: 35.1 Code: 65839-2 Heart Rate 1: 93 bpm Height: 5'7" SpO2: 99% Weight: 224 lbs 01/15/2018 Blood Pressure 1: 142/92 Code: 8480-6 BMI: 36.3 Code: 64381-2 Heart Rate 1: 77 bpm Height: 5'7" SpO2: 98% Weight: 232 lbs 12/15/2017 Blood Pressure 1: 156/98 Code: 8480-6 BMI: 36.2 Code: 39969-3 Heart Rate 1: 87 bpm Height: 5'7" SpO2: 97% Weight: 231 lbs Functional Status No Functional Status data History of Present Illness Symptom Name Status Resu lt Effective Date Notes Location right arm 12/20/2018 None Quality constant [...] eye 01/15/2018 None vision change Quality [facility] [place] 01/15/2018 None vision change Quality [...] vision 12/15/2017 None vision change Quality [facility] [place] 12/15/2017 None vision change Onset and Resolution sudden in onset 12/15/2017 None vision change Onset of Symptom 3.5 weeks ago 12/15/2017 None vision change Limitation on Activities severely limits vision 12/15/2017 None vision change Triggers n o known associated factors 12/15/2017 None Advance Directives No Advance Directive data Encounters Encounter Performer Loca tion Codes Date EST. PATIENT, LEVEL III Diagnosis: Pain in right arm[ICD10: M79.601] [facility] CPT-4: 53253 12/20/2018 [id number] EST. 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 P ATIENT, LEVEL IV Diagnosis: Essential (primary) hypertension[ICD10: I10] Diagnosis: Cervicalgia[ICD10: M54.2] Diagnosis: Spinal stenosis, thoracic region[ICD10: M48.04] Diagnosis: Testicular hypofunction[ICD10: E29.1] Radha Gonzalez MD, [facility] CPT-4: 73865 11/01/2018 [id number] EST. PATIENT, LEVEL III Diagnosis: Acute upper respiratory infection, unspecified[ICD10: J06.9] Diagnosis: Other allergic rhinitis[ICD10: J30.89] Sonia Gonzalez MD, [facility] CPT-4: 73287 09/24/2018 ([id number]) 67149 EST. P ATIENT, LEVEL III Diagnosis: Essential (primary) hypertension[ICD10: I10] Diagnosis: Testicular hypofunction[ICD10: E29.1] Radha Gonzalez MD, [facility] CPT-4: 23251 08/16/2018 ([id number]) 84247 EST. P ATIENT, LEVEL IV Diagnosis: Essential (primary) hypertension[ICD10: I10] Diagnosis: Testicular hypofunction[ICD10: E29.1] Diagnosis: Spinal stenosis, thoracic region[ICD10: M48.04] Diagnosis: Rash and other nonspecific skin eruption[ICD10: R21] Diagnosis: VACCIN FOR INFLUENZA[ICD10: Z23] Radha Gonzalez MD, [facility] CPT-4: 10711 08/02/2018 ([id number]) 02341 EST. P ATIENT, LEVEL IV Diagnosis: Essential (primary) hypertension[ICD10: I10] Diagnosis: Cervicalgia[ICD10: M54.2] Radha Gonzalez MD, [facility] CPT-4: 70812 05/31/2018 ([id number]) 77020 EST. P ATIENT, LEVEL IV Diagnosis: Spinal stenosis, cervical region[ICD10: M48.02] Diagnosis: Spinal stenosis, thoracic region[ICD10: M48.04] Diagnosis: Essential (primary) hypertension[ICD10: I10] Diagnosis: Testicular hypofunction[ICD10: E29.1] Hannah Gonzalez MD, [facility] CPT-4: 04487 05/20/2018 05716 EST. 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] Diagnosis: Obstructive sleep apnea (adult) (pediatric)[ICD10: G47.33] Radha [facility] CPT-4: 32909 01/15/2018 ([id number]) PREV VISIT N EW AGE 40-64 Diagnosis: Encounter for general adult medical examination with abnormal findings[ICD10: Z00.01] Radha Gonzalez MD, [facility] CPT-4: 48206 12/15/2017 ([id number]) OFFICE/OUTPA TIENT VISIT NEW Diagnosis: Laceration of thumb[ICD9: 883.0] [facility] CPT-4: 14305 08/03/2015 Plan of Care Planned Activity Notes C odes Status Date Patient Education: Patient Medication Summary Completed 12/21/2018 Care Plan: %Hba1C add to blood from 12/17 LOINC : 81372-3 Pending 12/21/2018 Visit Plan: Right arm pain - dayna deformity noted - will refer to ortho - The pt is to use prn antiinflammatories to manage acute pain. The patient is to call the office if the pain is worsening or does not improve. 12/20/2018 Appointment: Sonia Potter WPtel: [address] [place], [place] [id number] (15 min) Moderate 12/20/2018 Patient Education: Patient [...] testosterone. 12/16/2018 Appointment: Radha Gonzalez WPtel: [phone] [facility] (15 min) Moderate 12/16/2018 Patient Education: [...] needed. 11/01/2018 Appointment: Radha Gonzalez WPtel: [phone] [facility] (15 min) Moderate 11/01/2018 Patient Education: [...] 09/24/2018 [phone] (15 min) Moderate 09/24/2018 Patient Education: Patient [...] Multiple symptoms - referral to [facility] - appt in September 30, 2018. 08/16/2018 [facility]ment: [phone] [facility] (15 min) Moderate 08/16/2018 Patient Education: [...] Multiple symptoms - referral to [facility] - rashes, hypogonadism, optic neuritis - all points to possible autoimmune syndrome. Spinal stenosis - of thoracic region - pt to talk to Dr. Dunaway about referral to a different specialist for his mid- back. Hypogonadism - continue with testosterone. Flu shot given today in clinic. 08/02/2018 Appointment: [facility] [phone] [facility] [place] (15 min) Moderate 08/02/2018 Patient Education: Patient Medication Summary Completed 08/02/2018 Care Plan: Referral Order SNOMED-CT : 857376948 Pending 08/02/2018 Appointment: Injection 07/15/2018 Patient Education: [...] home. Cervical spine stenosis - referral to [facility] physical therapy. I have also recommended a Referral to Dr. Dunaway. I have called and talked to Dr. Dunaway - he looked at the pt's imaging and agrees that getting the pt in to be seen soon would be a preferred option. 05/31/2018 Appointment: Radha Gonzalez WPtel: [facility] [place] (15 min) Moderate 05/31/2018 Patient Education: Patient Medication Summary Completed 05/31/2018 Care Plan: Referral Order SNOMED-CT : 757890798 Pending 05/31/2018 Care Plan: Referral Order SNOMED-CT : 624577370 Pending 05/31/2018 Appointment: Injection 05/21/2018 Patient Education: Patient Medication Summary Completed 05/21/2018 Care Plan: Referral Order SNOMED-CT : 748294747 Pending 05/21/2018 Visit Plan: Cervical and thoracic s tenosis with spinal cord compression -refer for appt with Dr Marr -rx for hydrocodone for pain-start gabapentin at bedtime Soft tissue lesion-left chest-schedule CTfor further evaluation HTN-elevated today-hold adderall-monitor blood pressure 05/20/2018 Appointment: Hannah Simons WPtel: [phone] [place] (15 min) Moderate 05/20/2018 Patient Education: [...] this. 05/10/2018 Appointment: Sonia Potter WPtel: [phone] [facility] (15 min) Moderate 05/10/2018 Patient Education: Patient Medication Summary Completed 05/10/2018 Visit Plan: Sleep apnea - rx for cp ap - actually autopap was recommended and pt given rx today. HTN - referral to dr. kapoor - pt needs stress testing. 01/15/2018 Appointment: Radha Gonzalez WPtel: [phone] [facility] (15 min) Moderate 01/15/2018 Patient Education: Patient Medication Summary Completed 01/15/2018 Care Plan: Referral Order SNOMED-CT : 751961495 Pending 01/15/2018 Visit Plan: Well Adult - [...] one month. 12/15/2017 Appointment: Radha Gonzalez WPtel: [phone] [facility] New Patient 12/15/2017 Patient Education: Patient Medication Summary Completed 12/15/2017 Care Plan: CHEST X-RAY 2VW FRONTAL&LATL LOINC : 52108-1 Pending 12/15/2017 Appointment: [facility]el[facility] [phone] [facility] (15 min) Moderate 12/08/2017 Appointment: (S) New [...] Ordering Provider 08/03 Referral info faxed to [facility]. Patient informed to be expecting a call from them with appt info Appointment Requested Referral: External, Ordering Provider Referral Appointment Requested Referral: External, Ordering Provider I called today; they will call him to schedule. Completed Referral: Armani Dunaway Referral Appointment Requested Referral: Mayte Kapoor Referral Appointment Requested Referral: [phone] [facility] Referral Appointment Requested Referral: External, Ordering Provider [...] Multiple symptoms - referral to [facility] - rashes, hypogonadism, optic neuritis - [...] Multiple symptoms - referral to [facility] - appt in September 30, 2018. . steri strip placed on thumb of right hand - antibiotic shot given to patient and rx for keflex 500mg qid x 10 days given to the patient to fill prior to his trip to [place] will refill meds for 90 days Will [...] home. Cervical spine stenosis - referral to [facility] physical therapy. I have also recommended a Referral to Dr. Dunaway. I have called and talked to Dr. Dunaway - he looked at the pt's imaging and agrees that getting the pt in to be seen soon would be a preferred option.
--- OUTSIDE RECORDS SUMMARY | 2020-04-28 00:47 | XMS REPORT | CCD ---
Author Author Nilton Gonzalez Organization [facility] Address [address] [place] [address] Phone Care Team Providers Care Head Of Art Name Role Phone PP Unavailable CCM Unavailable Summary Purpose Interface Exchange Insurance Providers Payer name Policy type / Coverage type Covered democrat ID Effective Begin Date Effective End Date [employer] [id number] 2018 Unknown Family history Brother Diagnosis Age At Onset Alcoholism Unknown Father Diagnosis Age At Onset Hypercholesterolemia Unknown Social History Social History Element Codes Description Effective Dates Marital status Unknown S chanda 12/15/2017 Number of children Unknown 1 12/15/2017 Employment Unknown 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 [employer] 12/15/[address]: 878496250 Never smoker 12/15/[address]: 346026 Currently drinks alcohol <1 per week 12/15/2017 [...] 5 mg-fanny taminophen 325 mg tablet RxNorm: 708491 1 Tablet(s) PO TID PA N 12/28/2018 No Stop Date Active testosterone cypiona te 200 mg/mL intramuscular oil RxNorm: 7783577 1.25 Milliliter(s) IM 2 x month 12/22/2018 04/12/2019 Active gabapentin 300 mg ca psule RxNorm: 583389 1 Capsule(s) PO QID 12/16/2018 12/10/2019 Active Voltaren 1 % topical gel RxNorm: 384617 2 Gram(s) APPLY TOPIC ALLY four TIMES A DAY 12/16/2018 01/20/2019 Ac tive testosterone cypiona te 200 mg/mL intramuscular oil RxNorm: 6418387 Milliliter(s) IM 12/16/2018 12/16/2018 In active trazodone 100 mg tablet RxNorm: 989317 TAKE ONE TABLET BY MOUTH EVERY NIGHT AT BEDTIME 12/07/2018 06/04/2019 Active Adderall 30 mg tablet RxNorm: 272125 2 Tablet(s) PO daily 11/29/2018 12/28/2018 Inactive hydrocodone 5 mg-fanny taminophen 325 mg tablet RxNorm: 316595 1 Tablet(s) PO TID PA N 11/29/2018 12/27/2018 In active clindamycin 1 %-arthur oyl peroxide 5 % topical gel RxNorm: 523404 TOP APPLY TO AFFECTED AREA(S) ON SERNA TWO TIMES A DAY 11/17/2018 No Stop Date Active testosterone cypiona te 200 mg/mL intramuscular oil RxNorm: 9308401 1 Milliliter(s) IM 2 x month 11/17/2018 12/21/2018 Inactive Zorvolex 35 mg capsule RxNorm: 0455031 1 Capsule(s) PO TID as needed for pain 11/15/2018 05/13/2019 Ac tive ketoconazole 2 % top ical cream RxNorm: 645748 APPLY ONE GRAM TOPICA LLY TWICE A DAY 11/15/2018 11/29/2018 In active testosterone cypiona te 200 mg/mL intramuscular oil RxNorm: 7215953 1 Milliliter(s) IM 11/15/2018 11/14/2018 Inactive hydrocodone 5 mg-fanny taminophen 325 mg tablet RxNorm: 235500 1 Tablet(s) PO TID PA N 11/02/2018 11/28/2018 In active Singulair 10 mg tablet RxNorm: 570475 1 Tablet(s) PO daily 11/01/2018 07/28/2019 Active testosterone cypiona te 200 mg/mL intramuscular oil RxNorm: 1966819 1 Milliliter(s) IM 2 x month 11/01/2018 11/16/2018 Inactive Adderall 30 mg tablet RxNorm: 825891 2 Tablet(s) PO daily 10/29/2018 11/27/2018 Inactive gabapentin 300 mg ca psule RxNorm: 209009 1 Capsule(s) PO BID m ay take TID 10/19/2018 12/15/2018 In active gabapentin 300 mg ca psule RxNorm: 044962 1 Capsule(s) PO BID m ay take TID 10/19/2018 10/18/2018 In active alprazolam 1 mg tablet RxNorm: 043016 1 Tablet(s) PO TID as needed 10/15/2018 12/13/2018 Inactive testosterone cypiona te 200 mg/mL intramuscular oil RxNorm: 255030 Milliliter(s) IM 09/28/2018 09/28/2018 In active pravastatin 40 mg ta blet RxNorm: 117202 TAKE ONE TABLET BY [facility] EVERY NIGHT AT BEDTIME 09/27/2018 09/21/2019 Active Tamiflu 75 mg capsule RxNorm: 885751 1 Capsule(s) PO BID 09/24/2018 09/28/2018 Inactive Adderall 30 mg tablet RxNorm: 399340 2 Tablet(s) PO daily 09/20/2018 10/19/2018 Inactive hydrocodone 5 mg-fanny taminophen 325 mg tablet RxNorm: 319464 1 Tablet(s) PO TID PA N 09/20/2018 11/01/2018 In active testosterone cypiona te 200 mg/mL intramuscular oil RxNorm: 147122 Milliliter(s) IM 09/16/2018 09/16/2018 In active testosterone cypiona te 200 mg/mL intramuscular oil RxNorm: 323094 1 Milliliter(s) IM 09/02/2018 09/02/2018 Inactive testosterone cypiona te 200 mg/mL intramuscular oil RxNorm: 538189 Milliliter(s) IM 08/19/2018 08/19/2018 In active tramadol 50 mg tablet RxNorm: 419620 1-2 Tablet(s) PO Q6 as needed 08/18/2018 No Stop Date Active Adderall 30 mg tablet RxNorm: 992386 2 Tablet(s) PO daily 08/18/2018 09/16/2018 Inactive Dexilant 60 mg capsu le, delayed release RxNorm: 123827 1 Capsule(s) PO BID 08/17/2018 08/11/2019 Ac tive atenolol 50 mg tablet RxNorm: 436076 1 Tablet(s) PO BID 08/17/2018 08/11/2019 Active ketoconazole 2 % top ical cream RxNorm: 946444 1 Gram(s) TOP BID 08/17/2018 08/26/2018 Inactive Zorvolex 35 mg capsule RxNorm: 8483323 1 Capsule(s) PO TID as needed for pain 08/17/2018 08/16/2018 In active Zorvolex 35 mg capsule RxNorm: 5085533 1 Capsule(s) PO TID as needed for pain 08/17/2018 11/14/2018 In active ketoconazole 2 % top ical cream RxNorm: 077143 1 Gram(s) TOP BID 08/02/2018 08/11/2018 Inactive hydrocortisone 2.5 % topical cream RxNorm: 328952 1 Application TOP BID 07/21/2018 No Stop Date Active Adderall 30 mg tablet RxNorm: 834452 2 Tablet(s) PO daily 07/20/2018 08/17/2018 Inactive testosterone cypiona te 200 mg/mL intramuscular oil RxNorm: 700438 Milliliter(s) IM 07/15/2018 07/15/2018 In active alprazolam 1 mg tablet RxNorm: 557094 1 Tablet(s) PO TID as needed 07/12/2018 09/07/2018 Inactive hydrocodone 5 mg-fanny taminophen 325 mg tablet RxNorm: 181903 1 Tablet(s) PO TID PA N 06/30/2018 09/19/2018 In active pravastatin 40 mg ta blet RxNorm: 761907 1 Tablet(s) PO QHS 06/18/2018 09/15/2018 Inactive Adderall 30 mg tablet RxNorm: 755711 2 Tablet(s) PO daily 06/18/2018 07/17/2018 Inactive testosterone cypiona te 200 mg/mL intramuscular oil RxNorm: 711915 Milliliter(s) IM 06/17/2018 06/17/2018 In active Voltaren 1 % topical gel RxNorm: 326082 APPLY TOPICALLY TWO T IMES A DAY 06/16/2018 07/21/2018 In active Vitamin D2 50,000 un it capsule RxNorm: 7895678 1 Capsule(s) PO QW 05/21/2018 No Stop Date Active Adderall 30 mg tablet RxNorm: 052892 2 Tablet(s) PO daily 05/21/2018 06/17/2018 Inactive testosterone cypiona te 200 mg/mL intramuscular oil RxNorm: 934973 Milliliter(s) IM 05/21/2018 05/21/2018 In active testosterone cypiona te 200 mg/mL intramuscular oil RxNorm: 7730831 1 Milliliter(s) IM monthly 05/20/2018 09/16/2018 Inactive testosterone cypiona te 200 mg/mL intramuscular oil RxNorm: 036839 1 Milliliter(s) IM monthly 05/20/2018 05/19/2018 Inactive hydrocodone 5 mg-fanny taminophen 325 mg tablet RxNorm: 322534 1 Tablet(s) PO TID PA N 05/20/2018 06/29/2018 In active Vitamin D2 50,000 un it capsule RxNorm: 1366840 1 Capsule(s) PO QW 05/18/2018 05/20/2018 Inactive triamcinolone aceton destin 0.025 % topical cream RxNorm: 0954167 1 Application TOP BI D 05/13/2018 No Stop Date Active Dexilant 60 mg capsu le, delayed release RxNorm: 027452 1 Capsule(s) PO BID 05/13/2018 08/16/2018 In active Zorvolex 35 mg capsule RxNorm: 3901333 1 Capsule(s) PO TID as needed for pain 05/12/2018 08/09/2018 In active Voltaren 1 % topical gel RxNorm: 129267 1 Application TOP BID 05/12/2018 06/15/2018 Inactive acyclovir 400 mg tablet RxNorm: 704898 1 Tablet(s) PO TID as needed take at ons et of symptoms of cold sores x 5 days 05/10/2018 No Stop Date Active paroxetine 20 mg tablet RxNorm: 6095507 2 Tablet(s) PO QHS 05/10/2018 10/31/2019 Active ProAir HFA 90 mcg/ac tuation aerosol inhaler RxNorm: 960190 1 Puff(s) INH QID as needed 05/10/2018 No Stop Date Active baclofen 20 mg tablet RxNorm: 250195 1 Tablet(s) PO TID as needed muscle spas ms 05/10/2018 06/08/2018 In active Singulair 10 mg tablet RxNorm: 882642 1 Tablet(s) PO daily 05/10/2018 08/07/2018 Inactive atenolol 50 mg tablet RxNorm: 073804 1 Tablet(s) PO BID 05/10/2018 08/07/2018 Inactive triamcinolone aceton destin 0.025 % topical cream RxNorm: 2691301 1 Application TOP BI D 05/10/2018 05/12/2018 In active tramadol 50 mg tablet RxNorm: 928599 1 Tablet(s) PO TID as needed 05/10/2018 05/19/2018 Inactive Dexilant 60 mg capsu le, delayed release RxNorm: 764975 1 Capsule(s) PO daily 05/10/2018 05/12/2018 In active alprazolam 1 mg tablet RxNorm: 693836 1 Tablet(s) PO TID as needed 05/10/2018 08/06/2018 Inactive trazodone 100 mg tablet RxNorm: 178010 1 Tablet(s) PO QHS 05/10/2018 11/05/2018 Inactive cyclobenzaprine 10 m g tablet RxNorm: 252424 1 Tablet(s) PO TID as needed muscle spasms 05/07/2018 07/12/2018 Inactive trazodone 100 mg tablet RxNorm: 082331 1 Tablet(s) PO QHS 05/07/2018 05/09/2018 Inactive Adderall 30 mg tablet RxNorm: 737646 2 Tablet(s) PO daily 04/19/2018 05/18/2018 Inactive alprazolam 1 mg tablet RxNorm: 984147 1 Tablet(s) PO BID 04/19/2018 05/09/2018 Inactive Adderall 30 mg tablet RxNorm: 096000 2 Tablet(s) PO daily 03/26/2018 04/18/2018 Inactive paroxetine 20 mg tablet RxNorm: 9592970 2 Tablet(s) PO QHS 03/15/2018 05/09/2018 Inactive Adderall 30 mg tablet RxNorm: 425227 2 Tablet(s) PO daily 02/25/2018 03/25/2018 Inactive cyclobenzaprine 10 m g tablet RxNorm: 510193 1 Tablet(s) PO TID as needed muscle spasms 02/22/2018 05/06/2018 Inactive tramadol 50 mg tablet RxNorm: 749167 1 Tablet(s) PO TID as needed 02/22/2018 03/07/2018 Inactive tramadol 50 mg tablet RxNorm: 698461 1 Tablet(s) PO TID as needed 02/22/2018 02/21/2018 Inactive trazodone 100 mg tablet RxNorm: 292607 1 Tablet(s) PO QHS 02/03/2018 05/03/2018 Inactive trazodone 100 mg tablet RxNorm: 877177 1 Tablet(s) PO QHS 02/03/2018 02/02/2018 Inactive Adderall 30 mg tablet RxNorm: 478284 2 Tablet(s) PO daily 01/27/2018 02/18/2018 Inactive acyclovir 400 mg tablet RxNorm: 818022 1 Tablet(s) PO TID as needed take at ons et of symptoms of cold sores x 5 days 01/15/2018 05/09/2018 Inactive Bactrim DS 800 mg-16 0 mg tablet RxNorm: 715598 1 Tablet(s) PO BID 01/11/2018 01/17/2018 Inactive Bactrim DS 800 mg-16 0 mg tablet RxNorm: 416821 1 Tablet(s) PO BID 01/11/2018 01/10/2018 Inactive Dexilant 60 mg capsu le, delayed release RxNorm: 583879 1 Capsule(s) PO daily 12/23/2017 05/09/2018 In active Dexilant 60 mg capsu le, delayed release RxNorm: 343860 1 Capsule(s) PO daily 12/23/2017 12/22/2017 In active atenolol 50 mg tablet RxNorm: 788324 1 Tablet(s) PO BID 12/15/2017 05/09/2018 Inactive alprazolam 1 mg tablet RxNorm: 314077 1-1.5 Tablet(s) PO daily 12/15/2017 04/18/2018 Inactive ceftriaxone 500 mg s olution for injection RxNorm: 7511889 Inj 08/03/2015 08/03/2015 Inactive paroxetine 20 mg tablet RxNorm: 9500054 2 Tablet(s) PO QHS 08/01/2015 10/29/2015 Inactive pravastatin 40 mg ta blet RxNorm: 552569 1/2 Tablet(s) PO QHS 08/01/2015 12/14/2017 Inactive Trazadone 100mg 100 mg RxNorm: 1 PO daily 08/01/2015 11/27/2015 Inactive Trazadone 100mg 100 mg RxNorm: 1 PO daily 08/01/2015 05/04/2018 Inactive atenolol 50 mg tablet RxNorm: 071372 1 Tablet(s) PO daily 08/01/2015 10/29/2015 Inactive ibuprofen 800 mg tablet RxNorm: 635749 1 Tablet(s) PO BID -TID No Start Date Active Fish Oil 360 mg-1,20 0 mg capsule RxNorm: 921246 1 Capsule(s) PO BID No Start Date Active Zyrtec 10 mg tablet RxNorm: 1903010 1 Tablet(s) PO daily No Start Date Active pravastatin 40 mg ta blet RxNorm: 058643 1/2 Tablet(s) PO QHS No Start Date 07/31/2015 Inactive Benadryl Allergy 25 mg tablet RxNorm: 9532244 1 Tablet(s) PO daily No Start Date 07/19/2018 Inactive Adderall 30 mg tablet RxNorm: 471463 2 Tablet(s) PO daily No Start Date 01/26/2018 Inactive Aspirin Low Dose 81 mg tablet,delayed release RxNorm: 196185 1 Tablet(s) PO BID No Start Date 07/19/2018 Inactive Singulair 10 mg tablet RxNorm: 104825 1 Tablet(s) PO daily No Start Date 05/09/2018 Inactive cyclobenzaprine 10 m g tablet RxNorm: 170189 1 Tablet(s) PO TID as needed muscle spasms No Start Date 02/21/2018 Inactive Trazadone 100mg 100 mg RxNorm: 1 PO daily No Start Date 07/31/2015 Inactive clindamycin 1 %-arthur oyl peroxide 5 % topical gel RxNorm: 152827 TOP APPLY TO AFFECTED AREA(S) ON SERNA TWO TIMES A DAY No Start Date 11/16/2018 Inactive hydrocortisone 2.5 % topical cream RxNorm: 966304 1 Application TOP BID No Start Date 07/20/2018 Inactive alprazolam 1 mg tablet RxNorm: 814895 2 Tablet(s) PO daily No Start Date 12/14/2017 Inactive tramadol 50 mg tablet RxNorm: 420863 1-2 Tablet(s) PO Q6 as needed No Start Date 08/17/2018 Inactive Vitamin D2 50,000 un it capsule RxNorm: 0857761 1 Capsule(s) PO QW No Start Date 05/17/2018 Inactive pantoprazole 40 mg t ablet,delayed release RxNorm: 804380 1 Tablet(s) PO BID No Start Date 12/22/2017 Inactive atenolol 50 mg tablet RxNorm: 864672 1 Tablet(s) PO daily No Start Date 07/31/2015 Inactive paroxetine 20 mg tablet RxNorm: 118217 2 Tablet(s) PO QHS No Start Date 07/31/2015 Inactive Medication Administered Medication Codes Instruc tions Start Date Status testosterone cypionate 200 mg/mL intramuscular oil RxNorm: 6867982 Milliliter 12/16/2018 No longer Active testosterone cypionate 200 mg/mL intramuscular oil RxNorm: 5829631 1Milliliter 11/15/2018 No longer Active testosterone cypionate 200 mg/mL intramuscular oil RxNorm: 129054 Milliliter 09/28/2018 No longer Active testosterone cypionate 200 mg/mL intramuscular oil RxNorm: 712974 Milliliter 09/16/2018 No longer Active testosterone cypionate 200 mg/mL intramuscular oil RxNorm: 379659 1Milliliter 09/02/2018 No longer Active testosterone cypionate 200 mg/mL intramuscular oil RxNorm: 656601 Milliliter 08/19/2018 No longer Active testosterone cypionate 200 mg/mL intramuscular oil RxNorm: 185343 Milliliter 07/15/2018 No longer Active testosterone cypionate 200 mg/mL intramuscular oil RxNorm: 486222 Milliliter 06/17/2018 No longer Active testosterone cypionate 200 mg/mL intramuscular oil RxNorm: 178115 Milliliter 05/21/2018 No longer Active ceftriaxone 500 mg solution for injection RxNorm: 9607305 08/03/2015 No longer A ctive Immunizations Vaccine [...] Code Result Date Comp. Metabolic Panel (14) 13945 GLUCOSE 117 mg/dL 12/17/2018 Comp. Metabolic Panel (14) 54452 BUN 17 mg/dL 12/17/2018 Comp. Metabolic Panel (14) 75126 CREATININE 0.99 mg/dL 12/17/2018 Comp. Metabolic Panel (14) 77137 SODIUM 137 mmol/L 12/17/2018 Comp. Metabolic Panel (14) 70943 POTASSIUM 4.6 mmol/L 12/17/2018 Comp. Metabolic Panel (14) 69477 CHLORIDE 102 mmol/L 12/17/2018 Comp. Metabolic Panel (14) 36857 CARBON DIOXIDE 21 mmol/L 12/17/2018 Comp. Metabolic Panel (14) 80258 CALCIUM 9.4 mg/dL 12/17/2018 Comp. Metabolic Panel (14) 56462 TOTAL PROTEIN 7.5 g/dL 12/17/2018 Comp. Metabolic Panel (14) 08091 ALBUMIN 5.1 g/dL 12/17/2018 Comp. Metabolic Panel (14) 73293 ALKALINE PHOSPHATASE 79 U/L 12/17/2018 Comp. Metabolic Panel (14) 99776 TOTAL BILIRUBIN 0.5 mg/dL 12/17/2018 Comp. Metabolic Panel (14) 88500 SGOT (AST) 34 U/L 12/17/2018 Comp. Metabolic Panel (14) 34750 SGPT (ALT) 40 U/L 12/17/2018 Comp. Metabolic Panel (14) 41216 eGFR (mL/min/1.73m2) 115 12/17/2018 Comp. Metabolic Panel (14) 43501 INTERPRETATION 12/17/2018 Testosterone Serum 564294 TESTOSTERONE 96.8 ng/dL 12/17/2018 Cbc With Differential/Platelet 81245 WBC 5.61 thou/uL 9 Cbc With Differential/Platelet 74220 RBC 5.53 mil/uL 12/17/2018 Cbc With Differential/Platelet 05410 HEMOGLOBIN 15.4 g/dL 12/17/2018 Cbc With Differential/Platelet 60309 HEMATOCRIT 48.1 % 12/17/2018 Cbc With Differential/Platelet 24841 MCV 87.0 fL 12/17/2018 Cbc With Differential/Platelet 38435 MCH 27.8 pg 12/17/2018 Cbc With Differential/Platelet 02311 MCHC 32.0 g/dL 12/17/2018 Cbc With Differential/Platelet 99321 RDW-CV 13.9 % 12/17/2018 Cbc With Differential/Platelet 52999 PLATELET COUNT 294 thou/uL 12/17/2018 Cbc With Differential/Platelet 53807 NEUTROPHIL % 71.2 % 12/17/2018 Cbc With Differential/Platelet 49607 LYMPHOCYTE % 22.2 % 12/17/2018 Cbc With Differential/Platelet 50441 MONOCYTE % 5.4 % 12/17/2018 Cbc With Differential/Platelet 18554 EOS % 0.9 % 12/17/2018 Cbc With Differential/Platelet 15965 BASO % 0.4 % 12/17/2018 Cbc With Differential/Platelet 77394 NEUTROPHIL ABS # 3.99 thou/uL 12/17/2018 Cbc With Differential/Platelet 97069 LYMPH ABS # 1.25 thou/uL 12/17/2018 Cbc With Differential/Platelet 68832 MONOCYTE ABS # 0.30 thou/uL 12/17/2018 Cbc With Differential/Platelet 70291 EOS ABS # 0.05 thou/uL 9 Cbc With Differential/Platelet 10408 BASO ABS # 0.02 thou/uL 12/17/2018 Lipid Panel 14886 CHOLES TEROL 227 mg/dL 12/17/2018 Lipid Panel 93083 TRIGLY CERIDES 229 mg/dL 12/17/2018 Lipid Panel 39796 HDL 41 mg/dL 12/17/2018 Lipid Panel 04730 CHOLES TEROL/HDL 5.54 12/17/2018 Lipid Panel 50508 LDL (C ALCULATED) 140 mg/dL 12/17/2018 Lipid Panel 41778 LDL/HDL 3.41 12/17/2018 Lipid Panel 80183 INTERP RETATION 12/17/2018 Tsh 246827 TSH 1.190 uIU/mL 12/17/2018 Testosterone Serum 829016 TESTOSTERONE 44.1 ng/dL 08/18/2018 Hemoglobin 253208 WBC 7.62 thou/uL 08/17/2018 Hemoglobin 284752 RBC 5.23 mil/uL 08/17/2018 Hemoglobin 611994 HEMOGL OBIN 15.0 g/dL 08/17/2018 Hemoglobin 892811 HEMATO CRIT 45.0 % 08/17/2018 Hemoglobin 311156 MCV 86.0 fL 08/17/2018 Hemoglobin 312977 MCH 28.7 pg 08/17/2018 Hemoglobin 968987 MCHC 33.3 g/dL 08/17/2018 Hemoglobin 850757 RDW-CV 12.9 % 08/17/2018 Hemoglobin 722672 PLATEL ET COUNT 313 thou/uL 08/17/2018 Hematocrit 017823 WBC 7.62 thou/uL 08/17/2018 Hematocrit 067972 RBC 5.23 mil/uL 08/17/2018 Hematocrit 748179 HEMOGL OBIN 15.0 g/dL 08/17/2018 Hematocrit 020050 HEMATO CRIT 45.0 % 08/17/2018 Hematocrit 205671 MCV 86.0 fL 08/17/2018 Hematocrit 591309 MCH 28.7 pg 08/17/2018 Hematocrit 143076 MCHC 33.3 g/dL 08/17/2018 Hematocrit 039247 RDW-CV 12.9 % 08/17/2018 Hematocrit 333966 PLATEL ET COUNT 313 thou/uL 08/17/2018 Culture Mrsa 821530 MRSA CULTURE SEE NOTES 06/21/2018 Comp. Metabolic Panel (14) 34039 GLUCOSE 101 mg/dL 06/18/2018 Comp. Metabolic Panel (14) 53710 BUN 18 mg/dL 06/18/2018 Comp. Metabolic Panel (14) 11374 CREATININE 0.99 mg/dL 06/18/2018 Comp. Metabolic Panel (14) 04741 SODIUM 141 mmol/L 06/18/2018 Comp. Metabolic Panel (14) 42868 POTASSIUM 4.3 mmol/L 06/18/2018 Comp. Metabolic Panel (14) 94928 CHLORIDE 103 mmol/L 06/18/2018 Comp. Metabolic Panel (14) 53769 CARBON DIOXIDE 23 mmol/L 06/18/2018 Comp. Metabolic Panel (14) 33782 CALCIUM 9.8 mg/dL 06/18/2018 Comp. Metabolic Panel (14) 86540 TOTAL PROTEIN 7.1 g/dL 06/18/2018 Comp. Metabolic Panel (14) 04224 ALBUMIN 5.2 g/dL 06/18/2018 Comp. Metabolic Panel (14) 26078 ALKALINE PHOSPHATASE 65 U/L 06/18/2018 Comp. Metabolic Panel (14) 17597 TOTAL BILIRUBIN 0.6 mg/dL 06/18/2018 Comp. Metabolic Panel (14) 46623 SGOT (AST) 21 U/L 06/18/2018 Comp. Metabolic Panel (14) 63668 SGPT (ALT) 24 U/L 06/18/2018 Comp. Metabolic Panel (14) 83234 eGFR (mL/min/1.73m2) 115 06/18/2018 Comp. Metabolic Panel (14) 65463 INTERPRETATION 06/18/2018 Cbc With Differential/Platelet 94836 WBC 4.55 thou/uL 8 Cbc With Differential/Platelet 02835 RBC 5.13 mil/uL 06/18/2018 Cbc With Differential/Platelet 37659 HEMOGLOBIN 14.4 g/dL 06/18/2018 Cbc With Differential/Platelet 22144 HEMATOCRIT 44.1 % 06/18/2018 Cbc With Differential/Platelet 01898 MCV 85.9 fL 06/18/2018 Cbc With Differential/Platelet 90272 MCH 28.1 pg 06/18/2018 Cbc With Differential/Platelet 44461 MCHC 32.7 g/dL 06/18/2018 Cbc With Differential/Platelet 97621 RDW-CV 13.4 % 06/18/2018 Cbc With Differential/Platelet 76292 PLATELET COUNT 287 thou/uL 06/18/2018 Cbc With Differential/Platelet 02477 NEUTROPHIL % 53.9 % 06/18/2018 Cbc With Differential/Platelet 35614 LYMPHOCYTE % 36.1 % 06/18/2018 Cbc With Differential/Platelet 35205 MONOCYTE % 7.4 % 06/18/2018 Cbc With Differential/Platelet 95090 EOS % 1.9 % 06/18/2018 Cbc With Differential/Platelet 33011 BASO % 0.8 % 06/18/2018 Cbc With Differential/Platelet 00529 NEUTROPHIL ABS # 2.45 thou/uL 06/18/2018 Cbc With Differential/Platelet 87108 LYMPH ABS # 1.64 thou/uL 06/18/2018 Cbc With Differential/Platelet 30703 MONOCYTE ABS # 0.34 thou/uL 06/18/2018 Cbc With Differential/Platelet 60913 EOS ABS # 0.09 thou/uL 8 Cbc With Differential/Platelet 31185 BASO ABS # 0.04 thou/uL 06/18/2018 Review [...] Procedure Codes Date THER/PROPH/DIAG INJ SC/IM CPT-4: 33366 12/16/2018 THER/PROPH/DIAG INJ SC/IM CPT-4: 58785 11/15/2018 THER/PROPH/DIAG INJ SC/IM CPT-4: 31828 09/28/2018 THER/PROPH/DIAG INJ SC/IM CPT-4: 40210 09/16/2018 THER/PROPH/DIAG INJ SC/IM CPT-4: 18066 09/02/2018 THER/PROPH/DIAG INJ SC/IM CPT-4: 51092 08/19/2018 IMMUNIZATION ADMIN CPT- 4: 16835 08/02/2018 FLU VAC NO PRSV 4 VA L 3 YRS+ CPT-4: 17343 08/02/2018 THER/PROPH/DIAG INJ SC/IM CPT-4: 65408 07/15/2018 THER/PROPH/DIAG INJ SC/IM CPT-4: 85591 06/17/2018 THER/PROPH/DIAG INJ SC/IM CPT-4: 71454 05/21/2018 THER/PROPH/DIAG INJ SC/IM CPT-4: 46524 08/03/2015 ROCEPHIN, PER 250 MG CPT-4: J0696 08/03/2015 Vital Signs Date Vital 12/20/2018 Blood Pressure 1: 124/76 Code: 8480-6 BMI: 35.4 Code: 75375-9 Heart Rate 1: 79 bpm Height: 5'7" SpO2: 99% Weight: 226 lbs 12/16/2018 Blood Pressure 1: 160/90 Code: 8480-6 BMI: 35.4 Code: 86494-7 Heart Rate 1: 90 bpm Height: 5'7" SpO2: 95% Weight: 226 lbs 11/01/2018 Blood Pressure 1: 146/82 Code: 8480-6 BMI: 36.0 Code: 02365-8 Heart Rate 1: 87 bpm Height: 5'7" SpO2: 98% Weight: 230 lbs 09/24/2018 Blood Pressure 1: 140/82 Code: 8480-6 BMI: 36.0 Code: 57057-2 Heart Rate 1: 86 bpm Height: 5'7" SpO2: 98% Temperature: 37.1 (C ) / 98.7 (F) Weight: 230 lbs 08/16/2018 Blood Pressure 1: 148/82 Code: 8480-6 Blood Pressure 2: 157/92 Code: 8480-6 BMI: 35.9 Code: 75695-9 Heart Rate 1: 72 bpm Height: 5'7" SpO2: 96% Weight: 229 lbs 08/02/2018 Blood Pressure 1: 142/86 Code: 8480-6 BMI: 35.2 Code: 34555-0 Heart Rate 1: 101 bpm Height: 5'7" SpO2: 97% Weight: 225 lbs 05/31/2018 Blood Pressure 1: 134/82 Code: 8480-6 BMI: 35.4 Code: 11838-8 Heart Rate 1: 91 bpm Height: 5'7" SpO2: 96% Weight: 226 lbs 05/20/2018 Blood Pressure 1: 160/100 Code: 8480-6 BMI: 35.2 Code: 04510-6 Heart Rate 1: 89 bpm Height: 5'7" SpO2: 98% Weight: 225 lbs 05/10/2018 Blood Pressure 1: 124/70 Code: 8480-6 BMI: 35.1 Code: 39681-4 Heart Rate 1: 93 bpm Height: 5'7" SpO2: 99% Weight: 224 lbs 01/15/2018 Blood Pressure 1: 142/92 Code: 8480-6 BMI: 36.3 Code: 49423-8 Heart Rate 1: 77 bpm Height: 5'7" SpO2: 98% Weight: 232 lbs 12/15/2017 Blood Pressure 1: 156/98 Code: 8480-6 BMI: 36.2 Code: 13394-3 Heart Rate 1: 87 bpm Height: 5'7" [...] eye 01/15/2018 None vision change Quality ac [place] 01/15/2018 None vision change Quality lo ss [...] vision 12/15/2017 None vision change Quality ac [place] 12/15/2017 None vision change Onset and Resolution sudden in onset 12/15/2017 None vision change Onset of Symptom 3.5 weeks ago 12/15/2017 None vision change Limitation on Activities severely limits vision 12/15/2017 None vision change Triggers n o known associated factors 12/15/2017 None Advance Directives No Advance Directive data Encounters Encounter Performer Loca tion Codes Date [id number] EST. PATIENT, LEVEL III Diagnosis: Pain in right arm[ICD10: M79.601] Sonia Gonzalez MD, [facility] CPT-4: 02529 12/20/2018 ([id number]) [id number] EST. 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 PATIENT, LEVEL III Diagnosis: Acute upper respiratory infection, unspecified[ICD10: J06.9] Diagnosis: Other allergic rhinitis[ICD10: J30.89] Sonia Gonzalez MD, [facility] CPT-4: 56765 09/24/2018 ([id number]) [id number] EST. 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 P ATIENT, LEVEL IV Diagnosis: Essential (primary) hypertension[ICD10: I10] Diagnosis: Cervicalgia[ICD10: M54.2] Radha Gonzalez MD, [facility] CPT-4: 54275 05/31/2018 ([id number]) 45727 EST. 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] Diagnosis: Obstructive sleep apnea (adult) (pediatric)[ICD10: G47.33] Radha Gonzalez MD, C CPT-4: 94322 01/15/2018 ([id number]) PREV VISIT N EW AGE 40-64 Diagnosis: Encounter for general adult medical examination with abnormal findings[ICD10: Z00.01] Radha Gonzalez MD, [facility] CPT-4: 88370 12/15/2017 ([id number]) OFFICE/OUTPA TIENT VISIT NEW Diagnosis: Laceration of thumb[ICD9: 883.0] Radha Gonzalez MD, [facility] CPT-4: 85606 08/03/2015 Plan of Care Planned Activity Notes C odes Status Date Patient Education: Patient Medication Summary Completed 12/21/2018 Care Plan: %Hba1C add to blood from 12/17 LOINC : 75118-1 Pending 12/21/2018 Visit Plan: Right arm pain - dayna deformity noted - will refer to ortho - The pt is to use prn antiinflammatories to manage acute pain. The patient is to call the office if the pain is worsening or does not improve. 12/20/2018 Appointment: Sonia Potter WPtel: [address] [place], [place] [phone] (15 min) Moderate 12/20/2018 Patient Education: Patient [...] 12/16/2018 Appointment: Radha Gonzalez WPtel: [facility]9 [facility] (15 min) Moderate 12/16/2018 Patient [...] needed. 11/01/2018 Appointment: Radha Gonzalez WPtel: [phone] [facility] (15 min) Moderate 11/01/2018 Patient [...] spray. 09/24/2018 Appointment: Sonia Potter WPtel: [phone] [facility] (15 min) Moderate 09/24/2018 Patient Education: [...] at home. Multiple symptoms - referral to [facility] - appt in September 30, 2018. 08/16/2018 Appointment: [facility] Gonzalez [phone] (15 min) Moderate 08/16/2018 Patient Education: Patient [...] at home. Multiple symptoms - referral to [facility] - rashes, hypogonadism, optic neuritis - all points to possible autoimmune syndrome. Spinal stenosis - of thoracic region - pt to talk to Dr. Dunaway about referral to a different specialist for his mid- back. Hypogonadism - continue with testosterone. Flu shot given today in clinic. 08/02/2018 Appointment: Radha Gonzlaez [facility]Ptel: [phone] [place] (15 min) Moderate 08/02/2018 Patient Education: Patient Medication Summary Completed 08/02/2018 Care Plan: Referral Order SNOMED-CT : 858036265 Pending 08/02/2018 Appointment: Injection 07/15/2018 Patient Education: [...] 05/31/2018 Appointment: Radha Gonzalez WPtel: [facility]5 [facility] (15 min) Moderate 05/31/2018 Patient Education: Patient Medication Summary Completed 05/31/2018 Care Plan: Referral Order SNOMED-CT : 099307159 Pending 05/31/2018 Care Plan: Referral Order SNOMED-CT : 798422632 Pending 05/31/2018 Appointment: Injection 05/21/2018 Patient Education: Patient Medication Summary Completed 05/21/2018 Care Plan: Referral Order SNOMED-CT : 755724404 Pending 05/21/2018 Visit Plan: Cervical and thoracic s tenosis with spinal cord compression -refer for appt with Dr Marr -rx for hydrocodone for pain-start gabapentin at bedtime Soft tissue lesion-left chest-schedule CTfor further evaluation HTN-elevated today-hold adderall-monitor blood pressure 05/20/2018 Appointment: Hannah Simons WPtel: [facility]9 [phone] [place] (15 min) Moderate 05/20/2018 Patient [...] this. 05/10/2018 Appointment: Sonia Potter WPtel: [phone] [facility] [place] (15 min) Moderate 05/10/2018 Patient Education: Patient Medication Summary Completed 05/10/2018 Visit Plan: Sleep apnea - rx for cp ap - actually autopap was recommended and pt given rx today. HTN - referral to dr. kapoor - pt needs stress testing. 01/15/2018 Appointment: Radha Gonzalez [facility]el[phone] (15 min) Moderate 01/15/2018 Patient Education: Patient Medication Summary Completed 01/15/2018 Care Plan: Referral Order SNOMED-CT : 122920836 Pending 01/15/2018 Visit Plan: Well Adult - [...] [facility]el[phone] [place] New Patient 12/15/2017 Patient Education: Patient Medication Summary Completed 12/15/2017 Care Plan: CHEST X-RAY 2VW FRONTAL&LATL LOINC : 88908-5 Pending 12/15/2017 Appointment: Radha Gonzalez WPtel: [facility] [place] (15 min) Moderate 12/08/2017 Appointment: (S) [...] Ordering Provider 08/03 Referral info faxed to [facility]. Patient informed to be expecting a call from them with appt info Appointment Requested Referral: External, Ordering Provider Referral Appointment Requested Referral: External, Ordering Provider I called today; they will call him to schedule. Completed Referral: Armani Dunaway Referral Appointment Requested Referral: Mayte Kapoor Referral Appointment Requested Referral: [phone] Referral Appointment Requested Referral: External, Ordering Provider [...] at home. Multiple symptoms - referral to [facility] - rashes, hypogonadism, optic [...] at home. Multiple symptoms - referral to [facility] - appt in September [...]
--- OUTSIDE RECORDS SUMMARY | 2020-04-28 00:48 | XMS REPORT | CCD ---
Author Author Nilton Gonzalez Organization [facility] Address [address] [place] [address] Phone Care Team Providers Care Mica Paster Name Role Phone PP Unavailable CCM Unavailable Summary Purpose Interface Exchange Insurance Providers Payer name Policy type / Coverage type Covered democrat ID Effective Begin Date Effective End Date [employer] Insurance [id number] 2018 Unknown Family history Brother Diagnosis Age At Onset Alcoholism Unknown Father Diagnosis Age At Onset Hypercholesterolemia Unknown Social History Social History Element Codes Description Effective Dates Marital status Unknown S chanda 12/15/2017 Number of children Unknown 1 12/15/2017 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 [employer] 12/15/[address]: 714645951 Never smoker 12/15/[address]: 617817 Currently drinks alcohol <1 per week 12/15/2017 [...] cypiona te 200 mg/mL intramuscular oil RxNorm: 7828521 1.25 Milliliter(s) IM 2 x month 12/22/2018 04/12/2019 Active gabapentin 300 mg ca psule RxNorm: 816672 1 Capsule(s) PO QID 12/16/2018 12/10/2019 Active Voltaren 1 % topical gel RxNorm: 269906 2 Gram(s) APPLY TOPIC ALLY four TIMES A DAY 12/16/2018 01/20/2019 Ac tive testosterone cypiona te 200 mg/mL intramuscular oil RxNorm: 9816091 Milliliter(s) IM 12/16/2018 12/16/2018 In active trazodone 100 mg tablet RxNorm: 842732 TAKE ONE TABLET BY MOUTH EVERY NIGHT AT BEDTIME 12/07/2018 06/04/2019 Active hydrocodone 5 mg-fanny taminophen 325 mg tablet RxNorm: 413263 1 Tablet(s) PO TID AR N 11/29/2018 No Stop Date Active Adderall 30 mg tablet RxNorm: 594662 2 Tablet(s) PO daily 11/29/2018 12/28/2018 Active clindamycin 1 %-arthur oyl peroxide 5 % topical gel RxNorm: 030404 TOP APPLY TO AFFECTED AREA(S) ON SERNA TWO TIMES A DAY 11/17/2018 No Stop Date Active testosterone cypiona te 200 mg/mL intramuscular oil RxNorm: 2596641 1 Milliliter(s) IM 2 x month 11/17/2018 12/21/2018 Inactive Zorvolex 35 mg capsule RxNorm: 3322404 1 Capsule(s) PO TID as needed for pain 11/15/2018 05/13/2019 Ac tive ketoconazole 2 % top ical cream RxNorm: 284640 APPLY ONE GRAM TOPICA LLY TWICE A DAY 11/15/2018 11/29/2018 In active testosterone cypiona te 200 mg/mL intramuscular oil RxNorm: 4473893 1 Milliliter(s) IM 11/15/2018 11/14/2018 Inactive hydrocodone 5 mg-fanny taminophen 325 mg tablet RxNorm: 236652 1 Tablet(s) PO TID AR N 11/02/2018 11/28/2018 In active Singulair 10 mg tablet RxNorm: 009395 1 Tablet(s) PO daily 11/01/2018 07/28/2019 Active testosterone cypiona te 200 mg/mL intramuscular oil RxNorm: 7172421 1 Milliliter(s) IM 2 x month 11/01/2018 11/16/2018 Inactive Adderall 30 mg tablet RxNorm: 101347 2 Tablet(s) PO daily 10/29/2018 11/27/2018 Inactive gabapentin 300 mg ca psule RxNorm: 621098 1 Capsule(s) PO BID m ay take TID 10/19/2018 12/15/2018 In active gabapentin 300 mg ca psule RxNorm: 882834 1 Capsule(s) PO BID m ay take TID 10/19/2018 10/18/2018 In active alprazolam 1 mg tablet RxNorm: 071938 1 Tablet(s) PO TID as needed 10/15/2018 12/13/2018 Inactive testosterone cypiona te 200 mg/mL intramuscular oil RxNorm: 882609 Milliliter(s) IM 09/28/2018 09/28/2018 In active pravastatin 40 mg ta blet RxNorm: 340151 [facility] ONE TABLET [facility] NIGHT AT BEDTIME 09/27/2018 09/21/2019 Active Tamiflu 75 mg capsule RxNorm: 545208 1 Capsule(s) PO BID 09/24/2018 09/28/2018 Inactive Adderall 30 mg tablet RxNorm: 861321 2 Tablet(s) PO daily 09/20/2018 10/19/2018 Inactive hydrocodone 5 mg-fanny taminophen 325 mg tablet RxNorm: 988559 1 Tablet(s) PO TID AR N 09/20/2018 11/01/2018 In active testosterone cypiona te 200 mg/mL intramuscular oil RxNorm: 112360 Milliliter(s) IM 09/16/2018 09/16/2018 In active testosterone cypiona te 200 mg/mL intramuscular oil RxNorm: 594274 1 Milliliter(s) IM 09/02/2018 09/02/2018 Inactive testosterone cypiona te 200 mg/mL intramuscular oil RxNorm: 122863 Milliliter(s) IM 08/19/2018 08/19/2018 In active tramadol 50 mg tablet RxNorm: 441867 1-2 Tablet(s) PO Q6 as needed 08/18/2018 No Stop Date Active Adderall 30 mg tablet RxNorm: 497197 2 Tablet(s) PO daily 08/18/2018 09/16/2018 Inactive Dexilant 60 mg capsu le, delayed release RxNorm: 404212 1 Capsule(s) PO BID 08/17/2018 08/11/2019 Ac tive atenolol 50 mg tablet RxNorm: 759599 1 Tablet(s) PO BID 08/17/2018 08/11/2019 Active ketoconazole 2 % top ical cream RxNorm: 793653 1 Gram(s) TOP BID 08/17/2018 08/26/2018 Inactive Zorvolex 35 mg capsule RxNorm: 9041065 1 Capsule(s) PO TID as needed for pain 08/17/2018 08/16/2018 In active Zorvolex 35 mg capsule RxNorm: 9558499 1 Capsule(s) PO TID as needed for pain 08/17/2018 11/14/2018 In active ketoconazole 2 % top ical cream RxNorm: 057432 1 Gram(s) TOP BID 08/02/2018 08/11/2018 Inactive hydrocortisone 2.5 % topical cream RxNorm: 713446 1 Application TOP BID 07/21/2018 No Stop Date Active Adderall 30 mg tablet RxNorm: 362388 2 Tablet(s) PO daily 07/20/2018 08/17/2018 Inactive testosterone cypiona te 200 mg/mL intramuscular oil RxNorm: 944212 Milliliter(s) IM 07/15/2018 07/15/2018 In active alprazolam 1 mg tablet RxNorm: 192348 1 Tablet(s) PO TID as needed 07/12/2018 09/07/2018 Inactive hydrocodone 5 mg-fanny taminophen 325 mg tablet RxNorm: 211481 1 Tablet(s) PO TID AR N 06/30/2018 09/19/2018 In active pravastatin 40 mg ta blet RxNorm: 351916 1 Tablet(s) PO QHS 06/18/2018 09/15/2018 Inactive Adderall 30 mg tablet RxNorm: 280531 2 Tablet(s) PO daily 06/18/2018 07/17/2018 Inactive testosterone cypiona te 200 mg/mL intramuscular oil RxNorm: 524984 Milliliter(s) IM 06/17/2018 06/17/2018 In active Voltaren 1 % topical gel RxNorm: 146841 APPLY TOPICALLY TWO T IMES A DAY 06/16/2018 07/21/2018 In active Vitamin D2 50,000 un it capsule RxNorm: 6002012 1 Capsule(s) PO QW 05/21/2018 No Stop Date Active Adderall 30 mg tablet RxNorm: 840535 2 Tablet(s) PO daily 05/21/2018 06/17/2018 Inactive testosterone cypiona te 200 mg/mL intramuscular oil RxNorm: 348812 Milliliter(s) IM 05/21/2018 05/21/2018 In active testosterone cypiona te 200 mg/mL intramuscular oil RxNorm: 8113053 1 Milliliter(s) IM monthly 05/20/2018 09/16/2018 Inactive testosterone cypiona te 200 mg/mL intramuscular oil RxNorm: 919366 1 Milliliter(s) IM monthly 05/20/2018 05/19/2018 Inactive hydrocodone 5 mg-fanny taminophen 325 mg tablet RxNorm: 024914 1 Tablet(s) PO TID AR N 05/20/2018 06/29/2018 In active Vitamin D2 50,000 un it capsule RxNorm: 9638649 1 Capsule(s) PO QW 05/18/2018 05/20/2018 Inactive triamcinolone aceton destin 0.025 % topical cream RxNorm: 3236120 1 Application TOP BI D 05/13/2018 No Stop Date Active Dexilant 60 mg capsu le, delayed release RxNorm: 040927 1 Capsule(s) PO BID 05/13/2018 08/16/2018 In active Zorvolex 35 mg capsule RxNorm: 2882658 1 Capsule(s) PO TID as needed for pain 05/12/2018 08/09/2018 In active Voltaren 1 % topical gel RxNorm: 809384 1 Application TOP BID 05/12/2018 06/15/2018 Inactive acyclovir 400 mg tablet RxNorm: 726176 1 Tablet(s) PO TID as needed take at ons et of symptoms of cold sores x 5 days 05/10/2018 No Stop Date Active paroxetine 20 mg tablet RxNorm: 3617859 2 Tablet(s) PO QHS 05/10/2018 10/31/2019 Active ProAir HFA 90 mcg/ac tuation aerosol inhaler RxNorm: 987555 1 Puff(s) INH QID as needed 05/10/2018 No Stop Date Active baclofen 20 mg tablet RxNorm: 768008 1 Tablet(s) PO TID as needed muscle spas ms 05/10/2018 06/08/2018 In active Singulair 10 mg tablet RxNorm: 957298 1 Tablet(s) PO daily 05/10/2018 08/07/2018 Inactive atenolol 50 mg tablet RxNorm: 641924 1 Tablet(s) PO BID 05/10/2018 08/07/2018 Inactive triamcinolone aceton destin 0.025 % topical cream RxNorm: 0874809 1 Application TOP BI D 05/10/2018 05/12/2018 In active tramadol 50 mg tablet RxNorm: 926839 1 Tablet(s) PO TID as needed 05/10/2018 05/19/2018 Inactive Dexilant 60 mg capsu le, delayed release RxNorm: 411922 1 Capsule(s) PO daily 05/10/2018 05/12/2018 In active alprazolam 1 mg tablet RxNorm: 429913 1 Tablet(s) PO TID as needed 05/10/2018 08/06/2018 Inactive trazodone 100 mg tablet RxNorm: 478703 1 Tablet(s) PO QHS 05/10/2018 11/05/2018 Inactive cyclobenzaprine 10 m g tablet RxNorm: 261152 1 Tablet(s) PO TID as needed muscle spasms 05/07/2018 07/12/2018 Inactive trazodone 100 mg tablet RxNorm: 250085 1 Tablet(s) PO QHS 05/07/2018 05/09/2018 Inactive Adderall 30 mg tablet RxNorm: 661926 2 Tablet(s) PO daily 04/19/2018 05/18/2018 Inactive alprazolam 1 mg tablet RxNorm: 705135 1 Tablet(s) PO BID 04/19/2018 05/09/2018 Inactive Adderall 30 mg tablet RxNorm: 466352 2 Tablet(s) PO daily 03/26/2018 04/18/2018 Inactive paroxetine 20 mg tablet RxNorm: 7500918 2 Tablet(s) PO QHS 03/15/2018 05/09/2018 Inactive Adderall 30 mg tablet RxNorm: 991116 2 Tablet(s) PO daily 02/25/2018 03/25/2018 Inactive cyclobenzaprine 10 m g tablet RxNorm: 349851 1 Tablet(s) PO TID as needed muscle spasms 02/22/2018 05/06/2018 Inactive tramadol 50 mg tablet RxNorm: 017025 1 Tablet(s) PO TID as needed 02/22/2018 03/07/2018 Inactive tramadol 50 mg tablet RxNorm: 401250 1 Tablet(s) PO TID as needed 02/22/2018 02/21/2018 Inactive trazodone 100 mg tablet RxNorm: 644640 1 Tablet(s) PO QHS 02/03/2018 05/03/2018 Inactive trazodone 100 mg tablet RxNorm: 735870 1 Tablet(s) PO QHS 02/03/2018 02/02/2018 Inactive Adderall 30 mg tablet RxNorm: 359973 2 Tablet(s) PO daily 01/27/2018 02/18/2018 Inactive acyclovir 400 mg tablet RxNorm: 126096 1 Tablet(s) PO TID as needed take at ons et of symptoms of cold sores x 5 days 01/15/2018 05/09/2018 Inactive Bactrim DS 800 mg-16 0 mg tablet RxNorm: 275545 1 Tablet(s) PO BID 01/11/2018 01/17/2018 Inactive Bactrim DS 800 mg-16 0 mg tablet RxNorm: 008566 1 Tablet(s) PO BID 01/11/2018 01/10/2018 Inactive Dexilant 60 mg capsu le, delayed release RxNorm: 336803 1 Capsule(s) PO daily 12/23/2017 05/09/2018 In active Dexilant 60 mg capsu le, delayed release RxNorm: 267041 1 Capsule(s) PO daily 12/23/2017 12/22/2017 In active atenolol 50 mg tablet RxNorm: 246939 1 Tablet(s) PO BID 12/15/2017 05/09/2018 Inactive alprazolam 1 mg tablet RxNorm: 422675 1-1.5 Tablet(s) PO daily 12/15/2017 04/18/2018 Inactive ceftriaxone 500 mg s olution for injection RxNorm: 4002587 Inj 08/03/2015 08/03/2015 Inactive paroxetine 20 mg tablet RxNorm: 8576323 2 Tablet(s) PO QHS 08/01/2015 10/29/2015 Inactive pravastatin 40 mg ta blet RxNorm: 439313 1/2 Tablet(s) PO QHS 08/01/2015 12/14/2017 Inactive Trazadone 100mg 100 mg RxNorm: 1 PO daily 08/01/2015 11/27/2015 Inactive Trazadone 100mg 100 mg RxNorm: 1 PO daily 08/01/2015 05/04/2018 Inactive atenolol 50 mg tablet RxNorm: 876637 1 Tablet(s) PO daily 08/01/2015 10/29/2015 Inactive ibuprofen 800 mg tablet RxNorm: 266205 1 Tablet(s) PO BID -TID No Start Date Active Fish Oil 360 mg-1,20 0 mg capsule RxNorm: 066018 1 Capsule(s) PO BID No Start Date Active Zyrtec 10 mg tablet RxNorm: 5735265 1 Tablet(s) PO daily No Start Date Active pravastatin 40 mg ta blet RxNorm: 972409 1/2 Tablet(s) PO QHS No Start Date 07/31/2015 Inactive Benadryl Allergy 25 mg tablet RxNorm: 3012469 1 Tablet(s) PO daily No Start Date 07/19/2018 Inactive Adderall 30 mg tablet RxNorm: 896894 2 Tablet(s) PO daily No Start Date 01/26/2018 Inactive Aspirin Low Dose 81 mg tablet,delayed release RxNorm: 747328 1 Tablet(s) PO BID No Start Date 07/19/2018 Inactive Singulair 10 mg tablet RxNorm: 331344 1 Tablet(s) PO daily No Start Date 05/09/2018 Inactive cyclobenzaprine 10 m g tablet RxNorm: 166410 1 Tablet(s) PO TID as needed muscle spasms No Start Date 02/21/2018 Inactive Trazadone 100mg 100 mg RxNorm: 1 PO daily No Start Date 07/31/2015 Inactive clindamycin 1 %-arthur oyl peroxide 5 % topical gel RxNorm: 594178 TOP APPLY TO AFFECTED AREA(S) ON SERNA TWO TIMES A DAY No Start Date 11/16/2018 Inactive hydrocortisone 2.5 % topical cream RxNorm: 445998 1 Application TOP BID No Start Date 07/20/2018 Inactive alprazolam 1 mg tablet RxNorm: 775701 2 Tablet(s) PO daily No Start Date 12/14/2017 Inactive tramadol 50 mg tablet RxNorm: 669082 1-2 Tablet(s) PO Q6 as needed No Start Date 08/17/2018 Inactive Vitamin D2 50,000 un it capsule RxNorm: 2685100 1 Capsule(s) PO QW No Start Date 05/17/2018 Inactive pantoprazole 40 mg t ablet,delayed release RxNorm: 324546 1 Tablet(s) PO BID No Start Date 12/22/2017 Inactive atenolol 50 mg tablet RxNorm: 987147 1 Tablet(s) PO daily No Start Date 07/31/2015 Inactive paroxetine 20 mg tablet RxNorm: 254227 2 Tablet(s) PO QHS No Start Date 07/31/2015 Inactive Medication Administered Medication Codes Instruc tions Start Date Status testosterone cypionate 200 mg/mL intramuscular oil RxNorm: 0528834 Milliliter 12/16/2018 No longer Active testosterone cypionate 200 mg/mL intramuscular oil RxNorm: 1449022 1Milliliter 11/15/2018 No longer Active testosterone cypionate 200 mg/mL intramuscular oil RxNorm: 142301 Milliliter 09/28/2018 No longer Active testosterone cypionate 200 mg/mL intramuscular oil RxNorm: 310309 Milliliter 09/16/2018 No longer Active testosterone cypionate 200 mg/mL intramuscular oil RxNorm: 167428 1Milliliter 09/02/2018 No longer Active testosterone cypionate 200 mg/mL intramuscular oil RxNorm: 154480 Milliliter 08/19/2018 No longer Active testosterone cypionate 200 mg/mL intramuscular oil RxNorm: 672662 Milliliter 07/15/2018 No longer Active testosterone cypionate 200 mg/mL intramuscular oil RxNorm: 820819 Milliliter 06/17/2018 No longer Active testosterone cypionate 200 mg/mL intramuscular oil RxNorm: 886135 Milliliter 05/21/2018 No longer Active ceftriaxone 500 mg solution for injection RxNorm: 5867153 08/03/2015 No longer A ctive Immunizations Vaccine [...] Code Result Date Comp. Metabolic Panel (14) 89112 GLUCOSE 117 mg/dL 12/17/2018 Comp. Metabolic Panel (14) 48218 BUN 17 mg/dL 12/17/2018 Comp. Metabolic Panel (14) 68502 CREATININE 0.99 mg/dL 12/17/2018 Comp. Metabolic Panel (14) 72248 SODIUM 137 mmol/L 12/17/2018 Comp. Metabolic Panel (14) 35062 POTASSIUM 4.6 mmol/L 12/17/2018 Comp. Metabolic Panel (14) 88974 CHLORIDE 102 mmol/L 12/17/2018 Comp. Metabolic Panel (14) 55633 CARBON DIOXIDE 21 mmol/L 12/17/2018 Comp. Metabolic Panel (14) 76255 CALCIUM 9.4 mg/dL 12/17/2018 Comp. Metabolic Panel (14) 46898 TOTAL PROTEIN 7.5 g/dL 12/17/2018 Comp. Metabolic Panel (14) 11487 ALBUMIN 5.1 g/dL 12/17/2018 Comp. Metabolic Panel (14) 44792 ALKALINE PHOSPHATASE 79 U/L 12/17/2018 Comp. Metabolic Panel (14) 05548 TOTAL BILIRUBIN 0.5 mg/dL 12/17/2018 Comp. Metabolic Panel (14) 05097 SGOT (AST) 34 U/L 12/17/2018 Comp. Metabolic Panel (14) 04439 SGPT (ALT) 40 U/L 12/17/2018 Comp. Metabolic Panel (14) 48432 eGFR (mL/min/1.73m2) 115 12/17/2018 Comp. Metabolic Panel (14) 19440 INTERPRETATION 12/17/2018 Testosterone Serum 851313 TESTOSTERONE 96.8 ng/dL 12/17/2018 Cbc With Differential/Platelet 94589 WBC 5.61 thou/uL 9 Cbc With Differential/Platelet 19269 RBC 5.53 mil/uL 12/17/2018 Cbc With Differential/Platelet 59249 HEMOGLOBIN 15.4 g/dL 12/17/2018 Cbc With Differential/Platelet 99056 HEMATOCRIT 48.1 % 12/17/2018 Cbc With Differential/Platelet 65269 MCV 87.0 fL 12/17/2018 Cbc With Differential/Platelet 03334 MCH 27.8 pg 12/17/2018 Cbc With Differential/Platelet 77574 MCHC 32.0 g/dL 12/17/2018 Cbc With Differential/Platelet 75287 RDW-CV 13.9 % 12/17/2018 Cbc With Differential/Platelet 02778 PLATELET COUNT 294 thou/uL 12/17/2018 Cbc With Differential/Platelet 96649 NEUTROPHIL % 71.2 % 12/17/2018 Cbc With Differential/Platelet 34613 LYMPHOCYTE % 22.2 % 12/17/2018 Cbc With Differential/Platelet 33960 MONOCYTE % 5.4 % 12/17/2018 Cbc With Differential/Platelet 78615 EOS % 0.9 % 12/17/2018 Cbc With Differential/Platelet 67857 BASO % 0.4 % 12/17/2018 Cbc With Differential/Platelet 68137 NEUTROPHIL ABS # 3.99 thou/uL 12/17/2018 Cbc With Differential/Platelet 92298 LYMPH ABS # 1.25 thou/uL 12/17/2018 Cbc With Differential/Platelet 43175 MONOCYTE ABS # 0.30 thou/uL 12/17/2018 Cbc With Differential/Platelet 44131 EOS ABS # 0.05 thou/uL 9 Cbc With Differential/Platelet 99864 BASO ABS # 0.02 thou/uL 12/17/2018 Lipid Panel 40512 CHOLES TEROL 227 mg/dL 12/17/2018 Lipid Panel 61315 TRIGLY CERIDES 229 mg/dL 12/17/2018 Lipid Panel 92390 HDL 41 mg/dL 12/17/2018 Lipid Panel 19157 CHOLES TEROL/HDL 5.54 12/17/2018 Lipid Panel 34699 LDL (C ALCULATED) 140 mg/dL 12/17/2018 Lipid Panel 22106 LDL/HDL 3.41 12/17/2018 Lipid Panel 44165 INTERP RETATION 12/17/2018 Tsh 342674 TSH 1.190 uIU/mL 12/17/2018 Testosterone Serum 923424 TESTOSTERONE 44.1 ng/dL 08/18/2018 Hemoglobin 149208 WBC 7.62 thou/uL 08/17/2018 Hemoglobin 592999 RBC 5.23 mil/uL 08/17/2018 Hemoglobin 753119 HEMOGL OBIN 15.0 g/dL 08/17/2018 Hemoglobin 051228 HEMATO CRIT 45.0 % 08/17/2018 Hemoglobin 762799 MCV 86.0 fL 08/17/2018 Hemoglobin 703782 MCH 28.7 pg 08/17/2018 Hemoglobin 116618 MCHC 33.3 g/dL 08/17/2018 Hemoglobin 054427 RDW-CV 12.9 % 08/17/2018 Hemoglobin 523048 PLATEL ET COUNT 313 thou/uL 08/17/2018 Hematocrit 553845 WBC 7.62 thou/uL 08/17/2018 Hematocrit RBC 5.23 mil/uL 08/17/2018 Hematocrit HEMOGL OBIN 15.0 g/dL 08/17/2018 Hematocrit HEMATO CRIT 45.0 % 08/17/2018 Hematocrit MCV 86.0 fL 08/17/2018 Hematocrit MCH 28.7 pg 08/17/2018 Hematocrit MCHC 33.3 g/dL 08/17/2018 Hematocrit RDW-CV 12.9 % 08/17/2018 Hematocrit PLATEL ET COUNT 313 thou/uL 08/17/2018 Culture Mrsa 015099 MRSA CULTURE SEE NOTES 06/21/2018 Comp. Metabolic Panel (14) 48658 GLUCOSE 101 mg/dL 06/18/2018 Comp. Metabolic Panel (14) 08398 BUN 18 mg/dL 06/18/2018 Comp. Metabolic Panel (14) 22165 CREATININE 0.99 mg/dL 06/18/2018 Comp. Metabolic Panel (14) 01497 SODIUM 141 mmol/L 06/18/2018 Comp. Metabolic Panel (14) 65322 POTASSIUM 4.3 mmol/L 06/18/2018 Comp. Metabolic Panel (14) 50901 CHLORIDE 103 mmol/L 06/18/2018 Comp. Metabolic Panel (14) 15984 CARBON DIOXIDE 23 mmol/L 06/18/2018 Comp. Metabolic Panel (14) 58305 CALCIUM 9.8 mg/dL 06/18/2018 Comp. Metabolic Panel (14) 93816 TOTAL PROTEIN 7.1 g/dL 06/18/2018 Comp. Metabolic Panel (14) 18140 ALBUMIN 5.2 g/dL 06/18/2018 Comp. Metabolic Panel (14) 60118 ALKALINE PHOSPHATASE 65 U/L 06/18/2018 Comp. Metabolic Panel (14) 70704 TOTAL BILIRUBIN 0.6 mg/dL 06/18/2018 Comp. Metabolic Panel (14) 25600 SGOT (AST) 21 U/L 06/18/2018 Comp. Metabolic Panel (14) 77090 SGPT (ALT) 24 U/L 06/18/2018 Comp. Metabolic Panel (14) 75102 eGFR (mL/min/1.73m2) 115 06/18/2018 Comp. Metabolic Panel (14) 89408 INTERPRETATION 06/18/2018 Cbc With Differential/Platelet 34738 WBC 4.55 thou/uL 8 Cbc With Differential/Platelet 84587 RBC 5.13 mil/uL 06/18/2018 Cbc With Differential/Platelet 37199 HEMOGLOBIN 14.4 g/dL 06/18/2018 Cbc With Differential/Platelet 79439 HEMATOCRIT 44.1 % 06/18/2018 Cbc With Differential/Platelet 99094 MCV 85.9 fL 06/18/2018 Cbc With Differential/Platelet 71105 MCH 28.1 pg 06/18/2018 Cbc With Differential/Platelet 96892 MCHC 32.7 g/dL 06/18/2018 Cbc With Differential/Platelet 90540 RDW-CV 13.4 % 06/18/2018 Cbc With Differential/Platelet 61140 PLATELET COUNT 287 thou/uL 06/18/2018 Cbc With Differential/Platelet 78198 NEUTROPHIL % 53.9 % 06/18/2018 Cbc With Differential/Platelet 46299 LYMPHOCYTE % 36.1 % 06/18/2018 Cbc With Differential/Platelet 79346 MONOCYTE % 7.4 % 06/18/2018 Cbc With Differential/Platelet 67446 EOS % 1.9 % 06/18/2018 Cbc With Differential/Platelet 96299 BASO % 0.8 % 06/18/2018 Cbc With Differential/Platelet 02137 NEUTROPHIL ABS # 2.45 thou/uL 06/18/2018 Cbc With Differential/Platelet 46626 LYMPH ABS # 1.64 thou/uL 06/18/2018 Cbc With Differential/Platelet 84627 MONOCYTE ABS # 0.34 thou/uL 06/18/2018 Cbc With Differential/Platelet 19453 EOS ABS # 0.09 thou/uL 8 Cbc With Differential/Platelet 33858 BASO ABS # 0.04 thou/uL 06/18/2018 Review [...] Procedure Codes Date THER/PROPH/DIAG INJ SC/IM CPT-4: 68384 12/16/2018 THER/PROPH/DIAG INJ SC/IM CPT-4: 05775 11/15/2018 THER/PROPH/DIAG INJ SC/IM CPT-4: 01991 09/28/2018 THER/PROPH/DIAG INJ SC/IM CPT-4: 34628 09/16/2018 THER/PROPH/DIAG INJ SC/IM CPT-4: 90261 09/02/2018 THER/PROPH/DIAG INJ SC/IM CPT-4: 73197 08/19/2018 IMMUNIZATION ADMIN CPT- 4: 30487 08/02/2018 FLU VAC NO PRSV 4 VA L 3 YRS+ CPT-4: 81562 08/02/2018 THER/PROPH/DIAG INJ SC/IM CPT-4: 22280 07/15/2018 THER/PROPH/DIAG INJ SC/IM CPT-4: 37898 06/17/2018 THER/PROPH/DIAG INJ SC/IM CPT-4: 75077 05/21/2018 THER/PROPH/DIAG INJ SC/IM CPT-4: 10890 08/03/2015 ROCEPHIN, PER 250 MG CPT-4: J0696 08/03/2015 Vital Signs Date Vital 12/20/2018 Blood Pressure 1: 124/76 Code: 8480-6 BMI: 35.4 Code: 68812-0 Heart Rate 1: 79 bpm Height: 5'7" SpO2: 99% Weight: 226 lbs 12/16/2018 Blood Pressure 1: 160/90 Code: 8480-6 BMI: 35.4 Code: 99084-9 Heart Rate 1: 90 bpm Height: 5'7" SpO2: 95% Weight: 226 lbs 11/01/2018 Blood Pressure 1: 146/82 Code: 8480-6 BMI: 36.0 Code: 23027-6 Heart Rate 1: 87 bpm Height: 5'7" SpO2: 98% Weight: 230 lbs 09/24/2018 Blood Pressure 1: 140/82 Code: 8480-6 BMI: 36.0 Code: 73549-6 Heart Rate 1: 86 bpm Height: 5'7" SpO2: 98% Temperature: 37.1 (C ) / 98.7 (F) Weight: 230 lbs 08/16/2018 Blood Pressure 1: 148/82 Code: 8480-6 Blood Pressure 2: 157/92 Code: 8480-6 BMI: 35.9 Code: 18660-0 Heart Rate 1: 72 bpm Height: 5'7" SpO2: 96% Weight: 229 lbs 08/02/2018 Blood Pressure 1: 142/86 Code: 8480-6 BMI: 35.2 Code: 74919-1 Heart Rate 1: 101 bpm Height: 5'7" SpO2: 97% Weight: 225 lbs 05/31/2018 Blood Pressure 1: 134/82 Code: 8480-6 BMI: 35.4 Code: 74414-8 Heart Rate 1: 91 bpm Height: 5'7" SpO2: 96% Weight: 226 lbs 05/20/2018 Blood Pressure 1: 160/100 Code: 8480-6 BMI: 35.2 Code: 90468-3 Heart Rate 1: 89 bpm Height: 5'7" SpO2: 98% Weight: 225 lbs 05/10/2018 Blood Pressure 1: 124/70 Code: 8480-6 BMI: 35.1 Code: 91196-1 Heart Rate 1: 93 bpm Height: 5'7" SpO2: 99% Weight: 224 lbs 01/15/2018 Blood Pressure 1: 142/92 Code: 8480-6 BMI: 36.3 Code: 12845-5 Heart Rate 1: 77 bpm Height: 5'7" SpO2: 98% Weight: 232 lbs 12/15/2017 Blood Pressure 1: 156/98 Code: 8480-6 BMI: 36.2 Code: 74502-8 Heart Rate 1: 87 bpm Height: 5'7" [...] eye 01/15/2018 None vision change Quality ac [place] 01/15/2018 None vision change Quality lo ss [...] vision 12/15/2017 None vision change Quality ac [place] 12/15/2017 None vision change Onset and Resolution [...] arm[ICD10: M79.601] [facility] CPT-4: 46416 12/20/2018 ([id number]) [id number] EST. 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 PATIENT, LEVEL III Diagnosis: Acute upper respiratory infection, unspecified[ICD10: J06.9] Diagnosis: Other allergic rhinitis[ICD10: J30.89] [facility] CPT-4: 48898 09/24/2018 ([id number]) [id number] EST. 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 CPT-4: 93792 08/16/2018 ([id number]) 17337 EST. 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 CPT-4: 63688 08/02/2018 ([id number]) 34151 EST. P ATIENT, LEVEL IV Diagnosis: Essential (primary) hypertension[ICD10: I10] Diagnosis: Cervicalgia[ICD10: M54.2] Radha Gonzalez MD, [facility] CPT-4: 57821 05/31/2018 ([id number]) 13146 EST. 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 CPT-4: 54740 05/20/2018 34523 EST. 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 CPT- 4: 95997 05/10/2018 ([id number]) 30641 EST. 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 CPT-4: 06613 12/15/2017 ([id number]) OFFICE/OUTPA TIENT VISIT NEW Diagnosis: Laceration of thumb[ICD9: 883.0] Radha Gonzalez MD, [facility] CPT-4: 36368 08/03/2015 Plan of Care Planned Activity Notes C odes Status Date Patient Education: Patient Medication Summary Completed 12/21/2018 Care Plan: %Hba1C add to blood from 12/17 LOINC : 47280-1 Pending 12/21/2018 Visit Plan: Right arm pain - dayna deformity noted - will refer to ortho - The pt is to use prn antiinflammatories to manage acute pain. The patient is to call the office if the pain is worsening or does not improve. 12/20/2018 Appointment: Sonia Potter WPtel: [address] [place], [place] [id number] (15 min) Moderate 12/20/2018 Patient [...] with testosterone. 12/16/2018 Appointment: Radha Gonzalez WPtel: [facility] [address] [facility] (15 min) Moderate 12/16/2018 Patient [...] needed. 11/01/2018 Appointment: Rad[facility] [address] [facility] (15 min) Moderate 11/01/2018 Patient Education: Patient [...] spray. 09/24/2018 App[facility]ment: [facility] (15 min) Moderate 09/24/2018 Patient Education: Patient [...] home. Multiple symptoms - referral to [facility] - appt in September 30, 2018. 08/16/2018 Appointment: Hamlin Radha WPtel: [facility] [address] [facility] (15 min) Moderate 08/16/2018 Patient [...] home. Multiple symptoms - referral to [facility] - rashes, hypogonadism, optic neuritis - all points to possible autoimmune syndrome. Spinal stenosis - of thoracic region - pt to talk to Dr. Dunaway about referral to a different specialist for his mid- back. Hypogonadism - continue with testosterone. Flu shot given today in clinic. 08/02/2018 Appointment: Radha Gonzalez WPtel: [facility] [address] [facility] (15 min) Moderate 08/02/2018 Patient Education: Patient Medication Summary Completed 08/02/2018 Care Plan: Referral Order SNOMED-CT : 294768130 Pending 08/02/2018 Appointment: Injection 07/15/2018 Patient Education: [...] Cervical spine stenosis - referral to [facility] physical therapy. I have also recommended a Referral to Dr. Dunaway. I have called and talked to Dr. Dunaway - he looked at the pt's imaging and agrees that getting the pt in to be seen soon would be a preferred option. 05/31/2018 Appointment: Radha Gonzalez WPtel: [facility] [address] [facility] (15 min) Moderate 05/31/2018 Patient Education: Patient Medication Summary Completed 05/31/2018 Care Plan: Referral Order SNOMED-CT : 474496463 Pending 05/31/2018 Care Plan: Referral Order SNOMED-CT : 124097185 Pending 05/31/2018 Appointment: Injection 05/21/2018 Patient Education: Patient Medication Summary Completed 05/21/2018 Care Plan: Referral Order SNOMED-CT : 805629188 Pending 05/21/2018 Visit Plan: Cervical and thoracic s tenosis with spinal cord compression -refer for appt with Dr Marr -rx for hydrocodone for pain-start gabapentin at bedtime Soft tissue lesion-left chest-schedule CTfor further evaluation HTN-elevated today-hold adderall-monitor blood pressure 05/20/2018 Appointment: Hannah Simons WPtel: [facility] [address] [phone] [place] (15 min) Moderate 05/20/2018 Patient [...] this. 05/10/2018 Appointment: Sonia Potter WPtel: [phone] [facility] [place] (15 min) Moderate 05/10/2018 Patient Education: Patient Medication Summary Completed 05/10/2018 Visit Plan: Sleep apnea - rx for cp ap - actually autopap was recommended and pt given rx today. HTN - referral to dr. kapoor - pt needs stress testing. 01/15/2018 Appointment: Radha Gonzalez WPtel: [facility] [address] [facility] (15 min) Moderate 01/15/2018 Patient Education: Patient Medication Summary Completed 01/15/2018 Care Plan: Referral Order SNOMED-CT : 957423100 Pending 01/15/2018 Visit Plan: Well Adult - [...] one month. 12/15/2017 Appointment: Radha Gonzalez WPtel: [address] [place], [place] [id number] New Patient 12/15/2017 Patient Education: Patient Medication Summary Completed 12/15/2017 Care Plan: CHEST X-RAY 2VW FRONTAL&LATL LOINC : 71647-1 Pending 12/15/2017 Appointment: Radha Gonzalez WPtel: [address] [place], [place] [id number] (15 min) Moderate 12/08/2017 Appointment: (S) New [...] Ordering Provider 08/03 Referral info faxed to Laura. Patient informed to be expecting a call from them with appt info Appointment Requested Referral: External, Ordering Provider Referral Appointment Requested Referral: External, Ordering Provider I called today; they will call him to schedule. Completed Referral: Armani Dunaway Referral Appointment Requested Referral: Mayte Kapoor Referral Appointment Requested Referral: [facility] [facility] Referral Appointment Requested Referral: External, Ordering [...] home. Multiple symptoms - referral to [facility] - rashes, hypogonadism, optic neuritis - all [...] home. Multiple symptoms - referral to [facility] - appt in September 30, 2018. . steri strip placed on thumb of right hand - antibiotic shot given to patient and rx for keflex 500mg qid x 10 days given to the patient to fill prior to his trip to [place] will refill meds for 90 days Will [...]
--- OUTSIDE RECORDS SUMMARY | 2020-04-28 00:49 | XMS REPORT | CCD ---
Author Author Nilton Gonzalez Organization [facility] Address [address] [place] [address] Phone Care Team Providers Care Installers Mechanical Name Role Phone PP Unavailable CCM Unavailable Summary Purpose Interface Exchange Insurance Providers Payer name Policy type / Coverage type Covered democrat ID Effective Begin Date Effective End Date [employer] Insurance [id number] 2018 Unknown Family history Brother Diagnosis Age At Onset Alcoholism Unknown Father Diagnosis Age At Onset Hypercholesterolemia Unknown Social History Social History Element Codes Description Effective Dates Marital status Unknown S chanda 12/15/2017 Number of children Unknown 1 12/15/2017 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 [employer] 12/15/[address]: 847547436 Never smoker 12/15/[address]: 831565 Currently drinks alcohol <1 per week 12/15/2017 [...] cypiona te 200 mg/mL intramuscular oil RxNorm: 0588172 1.25 Milliliter(s) IM 2 x month 12/22/2018 04/12/2019 Active gabapentin 300 mg ca psule RxNorm: 529299 1 Capsule(s) PO QID 12/16/2018 12/10/2019 Active Voltaren 1 % topical gel RxNorm: 938023 2 Gram(s) APPLY TOPIC ALLY four TIMES A DAY 12/16/2018 01/20/2019 Ac tive testosterone cypiona te 200 mg/mL intramuscular oil RxNorm: 9653242 Milliliter(s) IM 12/16/2018 12/16/2018 In active trazodone 100 mg tablet RxNorm: 256340 TAKE ONE TABLET BY MOUTH EVERY NIGHT AT BEDTIME 12/07/2018 06/04/2019 Active hydrocodone 5 mg-fanny taminophen 325 mg tablet RxNorm: 505890 1 Tablet(s) PO TID AL N 11/29/2018 No Stop Date Active Adderall 30 mg tablet RxNorm: 654047 2 Tablet(s) PO daily 11/29/2018 12/28/2018 Active clindamycin 1 %-arthur oyl peroxide 5 % topical gel RxNorm: 625129 TOP APPLY TO AFFECTED AREA(S) ON SERNA TWO TIMES A DAY 11/17/2018 No Stop Date Active testosterone cypiona te 200 mg/mL intramuscular oil RxNorm: 8285081 1 Milliliter(s) IM 2 x month 11/17/2018 12/21/2018 Inactive Zorvolex 35 mg capsule RxNorm: 8964694 1 Capsule(s) PO TID as needed for pain 11/15/2018 05/13/2019 Ac tive ketoconazole 2 % top ical cream RxNorm: 343740 APPLY ONE GRAM TOPICA LLY TWICE A DAY 11/15/2018 11/29/2018 In active testosterone cypiona te 200 mg/mL intramuscular oil RxNorm: 0510401 1 Milliliter(s) IM 11/15/2018 11/14/2018 Inactive hydrocodone 5 mg-fanny taminophen 325 mg tablet RxNorm: 428215 1 Tablet(s) PO TID AL N 11/02/2018 11/28/2018 In active Singulair 10 mg tablet RxNorm: 941256 1 Tablet(s) PO daily 11/01/2018 07/28/2019 Active testosterone cypiona te 200 mg/mL intramuscular oil RxNorm: 6052471 1 Milliliter(s) IM 2 x month 11/01/2018 11/16/2018 Inactive Adderall 30 mg tablet RxNorm: 936989 2 Tablet(s) PO daily 10/29/2018 11/27/2018 Inactive gabapentin 300 mg ca psule RxNorm: 120552 1 Capsule(s) PO BID m ay take TID 10/19/2018 12/15/2018 In active gabapentin 300 mg ca psule RxNorm: 794403 1 Capsule(s) PO BID m ay take TID 10/19/2018 10/18/2018 In active alprazolam 1 mg tablet RxNorm: 799472 1 Tablet(s) PO TID as needed 10/15/2018 12/13/2018 Inactive testosterone cypiona te 200 mg/mL intramuscular oil RxNorm: 910327 Milliliter(s) IM 09/28/2018 09/28/2018 In active pravastatin 40 mg ta blet RxNorm: 406932 TAKE ONE TABLET BY [facility] EVERY NIGHT AT BEDTIME 09/27/2018 09/21/2019 Active Tamiflu 75 mg capsule RxNorm: 469819 1 Capsule(s) PO BID 09/24/2018 09/28/2018 Inactive Adderall 30 mg tablet RxNorm: 162804 2 Tablet(s) PO daily 09/20/2018 10/19/2018 Inactive hydrocodone 5 mg-fanny taminophen 325 mg tablet RxNorm: 095580 1 Tablet(s) PO TID AL N 09/20/2018 11/01/2018 In active testosterone cypiona te 200 mg/mL intramuscular oil RxNorm: 749306 Milliliter(s) IM 09/16/2018 09/16/2018 In active testosterone cypiona te 200 mg/mL intramuscular oil RxNorm: 749473 1 Milliliter(s) IM 09/02/2018 09/02/2018 Inactive testosterone cypiona te 200 mg/mL intramuscular oil RxNorm: 870578 Milliliter(s) IM 08/19/2018 08/19/2018 In active tramadol 50 mg tablet RxNorm: 160158 1-2 Tablet(s) PO Q6 as needed 08/18/2018 No Stop Date Active Adderall 30 mg tablet RxNorm: 150789 2 Tablet(s) PO daily 08/18/2018 09/16/2018 Inactive Dexilant 60 mg capsu le, delayed release RxNorm: 137171 1 Capsule(s) PO BID 08/17/2018 08/11/2019 Ac tive atenolol 50 mg tablet RxNorm: 075744 1 Tablet(s) PO BID 08/17/2018 08/11/2019 Active ketoconazole 2 % top ical cream RxNorm: 542086 1 Gram(s) TOP BID 08/17/2018 08/26/2018 Inactive Zorvolex 35 mg capsule RxNorm: 2955072 1 Capsule(s) PO TID as needed for pain 08/17/2018 08/16/2018 In active Zorvolex 35 mg capsule RxNorm: 1240097 1 Capsule(s) PO TID as needed for pain 08/17/2018 11/14/2018 In active ketoconazole 2 % top ical cream RxNorm: 603954 1 Gram(s) TOP BID 08/02/2018 08/11/2018 Inactive hydrocortisone 2.5 % topical cream RxNorm: 635745 1 Application TOP BID 07/21/2018 No Stop Date Active Adderall 30 mg tablet RxNorm: 897624 2 Tablet(s) PO daily 07/20/2018 08/17/2018 Inactive testosterone cypiona te 200 mg/mL intramuscular oil RxNorm: 895666 Milliliter(s) IM 07/15/2018 07/15/2018 In active alprazolam 1 mg tablet RxNorm: 117630 1 Tablet(s) PO TID as needed 07/12/2018 09/07/2018 Inactive hydrocodone 5 mg-fanny taminophen 325 mg tablet RxNorm: 590217 1 Tablet(s) PO TID AL N 06/30/2018 09/19/2018 In active pravastatin 40 mg ta blet RxNorm: 386016 1 Tablet(s) PO QHS 06/18/2018 09/15/2018 Inactive Adderall 30 mg tablet RxNorm: 018649 2 Tablet(s) PO daily 06/18/2018 07/17/2018 Inactive testosterone cypiona te 200 mg/mL intramuscular oil RxNorm: 796814 Milliliter(s) IM 06/17/2018 06/17/2018 In active Voltaren 1 % topical gel RxNorm: 312832 APPLY TOPICALLY TWO T IMES A DAY 06/16/2018 07/21/2018 In active Vitamin D2 50,000 un it capsule RxNorm: 9176516 1 Capsule(s) PO QW 05/21/2018 No Stop Date Active Adderall 30 mg tablet RxNorm: 594014 2 Tablet(s) PO daily 05/21/2018 06/17/2018 Inactive testosterone cypiona te 200 mg/mL intramuscular oil RxNorm: 315579 Milliliter(s) IM 05/21/2018 05/21/2018 In active testosterone cypiona te 200 mg/mL intramuscular oil RxNorm: 2135232 1 Milliliter(s) IM monthly 05/20/2018 09/16/2018 Inactive testosterone cypiona te 200 mg/mL intramuscular oil RxNorm: 780641 1 Milliliter(s) IM monthly 05/20/2018 05/19/2018 Inactive hydrocodone 5 mg-fanny taminophen 325 mg tablet RxNorm: 592812 1 Tablet(s) PO TID AL N 05/20/2018 06/29/2018 In active Vitamin D2 50,000 un it capsule RxNorm: 9720532 1 Capsule(s) PO QW 05/18/2018 05/20/2018 Inactive triamcinolone aceton destin 0.025 % topical cream RxNorm: 1272670 1 Application TOP BI D 05/13/2018 No Stop Date Active Dexilant 60 mg capsu le, delayed release RxNorm: 843334 1 Capsule(s) PO BID 05/13/2018 08/16/2018 In active Zorvolex 35 mg capsule RxNorm: 4311046 1 Capsule(s) PO TID as needed for pain 05/12/2018 08/09/2018 In active Voltaren 1 % topical gel RxNorm: 628839 1 Application TOP BID 05/12/2018 06/15/2018 Inactive acyclovir 400 mg tablet RxNorm: 445283 1 Tablet(s) PO TID as needed take at ons et of symptoms of cold sores x 5 days 05/10/2018 No Stop Date Active paroxetine 20 mg tablet RxNorm: 7339349 2 Tablet(s) PO QHS 05/10/2018 10/31/2019 Active ProAir HFA 90 mcg/ac tuation aerosol inhaler RxNorm: 084847 1 Puff(s) INH QID as needed 05/10/2018 No Stop Date Active baclofen 20 mg tablet RxNorm: 105453 1 Tablet(s) PO TID as needed muscle spas ms 05/10/2018 06/08/2018 In active Singulair 10 mg tablet RxNorm: 253367 1 Tablet(s) PO daily 05/10/2018 08/07/2018 Inactive atenolol 50 mg tablet RxNorm: 484441 1 Tablet(s) PO BID 05/10/2018 08/07/2018 Inactive triamcinolone aceton destin 0.025 % topical cream RxNorm: 0481173 1 Application TOP BI D 05/10/2018 05/12/2018 In active tramadol 50 mg tablet RxNorm: 714523 1 Tablet(s) PO TID as needed 05/10/2018 05/19/2018 Inactive Dexilant 60 mg capsu le, delayed release RxNorm: 494412 1 Capsule(s) PO daily 05/10/2018 05/12/2018 In active alprazolam 1 mg tablet RxNorm: 064625 1 Tablet(s) PO TID as needed 05/10/2018 08/06/2018 Inactive trazodone 100 mg tablet RxNorm: 531030 1 Tablet(s) PO QHS 05/10/2018 11/05/2018 Inactive cyclobenzaprine 10 m g tablet RxNorm: 526287 1 Tablet(s) PO TID as needed muscle spasms 05/07/2018 07/12/2018 Inactive trazodone 100 mg tablet RxNorm: 424772 1 Tablet(s) PO QHS 05/07/2018 05/09/2018 Inactive Adderall 30 mg tablet RxNorm: 177516 2 Tablet(s) PO daily 04/19/2018 05/18/2018 Inactive alprazolam 1 mg tablet RxNorm: 744062 1 Tablet(s) PO BID 04/19/2018 05/09/2018 Inactive Adderall 30 mg tablet RxNorm: 623278 2 Tablet(s) PO daily 03/26/2018 04/18/2018 Inactive paroxetine 20 mg tablet RxNorm: 9296234 2 Tablet(s) PO QHS 03/15/2018 05/09/2018 Inactive Adderall 30 mg tablet RxNorm: 187802 2 Tablet(s) PO daily 02/25/2018 03/25/2018 Inactive cyclobenzaprine 10 m g tablet RxNorm: 917852 1 Tablet(s) PO TID as needed muscle spasms 02/22/2018 05/06/2018 Inactive tramadol 50 mg tablet RxNorm: 764029 1 Tablet(s) PO TID as needed 02/22/2018 03/07/2018 Inactive tramadol 50 mg tablet RxNorm: 924050 1 Tablet(s) PO TID as needed 02/22/2018 02/21/2018 Inactive trazodone 100 mg tablet RxNorm: 426074 1 Tablet(s) PO QHS 02/03/2018 05/03/2018 Inactive trazodone 100 mg tablet RxNorm: 714180 1 Tablet(s) PO QHS 02/03/2018 02/02/2018 Inactive Adderall 30 mg tablet RxNorm: 243458 2 Tablet(s) PO daily 01/27/2018 02/18/2018 Inactive acyclovir 400 mg tablet RxNorm: 637528 1 Tablet(s) PO TID as needed take at ons et of symptoms of cold sores x 5 days 01/15/2018 05/09/2018 Inactive Bactrim DS 800 mg-16 0 mg tablet RxNorm: 237724 1 Tablet(s) PO BID 01/11/2018 01/17/2018 Inactive Bactrim DS 800 mg-16 0 mg tablet RxNorm: 887319 1 Tablet(s) PO BID 01/11/2018 01/10/2018 Inactive Dexilant 60 mg capsu le, delayed release RxNorm: 550933 1 Capsule(s) PO daily 12/23/2017 05/09/2018 In active Dexilant 60 mg capsu le, delayed release RxNorm: 239239 1 Capsule(s) PO daily 12/23/2017 12/22/2017 In active atenolol 50 mg tablet RxNorm: 779910 1 Tablet(s) PO BID 12/15/2017 05/09/2018 Inactive alprazolam 1 mg tablet RxNorm: 433108 1-1.5 Tablet(s) PO daily 12/15/2017 04/18/2018 Inactive ceftriaxone 500 mg s olution for injection RxNorm: 9609855 Inj 08/03/2015 08/03/2015 Inactive paroxetine 20 mg tablet RxNorm: 9687003 2 Tablet(s) PO QHS 08/01/2015 10/29/2015 Inactive pravastatin 40 mg ta blet RxNorm: 301883 1/2 Tablet(s) PO QHS 08/01/2015 12/14/2017 Inactive Trazadone 100mg 100 mg RxNorm: 1 PO daily 08/01/2015 11/27/2015 Inactive Trazadone 100mg 100 mg RxNorm: 1 PO daily 08/01/2015 05/04/2018 Inactive atenolol 50 mg tablet RxNorm: 882375 1 Tablet(s) PO daily 08/01/2015 10/29/2015 Inactive ibuprofen 800 mg tablet RxNorm: 620286 1 Tablet(s) PO BID -TID No Start Date Active Fish Oil 360 mg-1,20 0 mg capsule RxNorm: 807855 1 Capsule(s) PO BID No Start Date Active Zyrtec 10 mg tablet RxNorm: 7266719 1 Tablet(s) PO daily No Start Date Active pravastatin 40 mg ta blet RxNorm: 926871 1/2 Tablet(s) PO QHS No Start Date 07/31/2015 Inactive Benadryl Allergy 25 mg tablet RxNorm: 7962683 1 Tablet(s) PO daily No Start Date 07/19/2018 Inactive Adderall 30 mg tablet RxNorm: 537145 2 Tablet(s) PO daily No Start Date 01/26/2018 Inactive Aspirin Low Dose 81 mg tablet,delayed release RxNorm: 783803 1 Tablet(s) PO BID No Start Date 07/19/2018 Inactive Singulair 10 mg tablet RxNorm: 275321 1 Tablet(s) PO daily No Start Date 05/09/2018 Inactive cyclobenzaprine 10 m g tablet RxNorm: 853294 1 Tablet(s) PO TID as needed muscle spasms No Start Date 02/21/2018 Inactive Trazadone 100mg 100 mg RxNorm: 1 PO daily No Start Date 07/31/2015 Inactive clindamycin 1 %-arthur oyl peroxide 5 % topical gel RxNorm: 145872 TOP APPLY TO AFFECTED AREA(S) ON SERNA TWO TIMES A DAY No Start Date 11/16/2018 Inactive hydrocortisone 2.5 % topical cream RxNorm: 239386 1 Application TOP BID No Start Date 07/20/2018 Inactive alprazolam 1 mg tablet RxNorm: 738897 2 Tablet(s) PO daily No Start Date 12/14/2017 Inactive tramadol 50 mg tablet RxNorm: 968833 1-2 Tablet(s) PO Q6 as needed No Start Date 08/17/2018 Inactive Vitamin D2 50,000 un it capsule RxNorm: 2533030 1 Capsule(s) PO QW No Start Date 05/17/2018 Inactive pantoprazole 40 mg t ablet,delayed release RxNorm: 811426 1 Tablet(s) PO BID No Start Date 12/22/2017 Inactive atenolol 50 mg tablet RxNorm: 632835 1 Tablet(s) PO daily No Start Date 07/31/2015 Inactive paroxetine 20 mg tablet RxNorm: 151153 2 Tablet(s) PO QHS No Start Date 07/31/2015 Inactive Medication Administered Medication Codes Instruc tions Start Date Status testosterone cypionate 200 mg/mL intramuscular oil RxNorm: 8700822 Milliliter 12/16/2018 No longer Active testosterone cypionate 200 mg/mL intramuscular oil RxNorm: 3276387 1Milliliter 11/15/2018 No longer Active testosterone cypionate 200 mg/mL intramuscular oil RxNorm: 947848 Milliliter 09/28/2018 No longer Active testosterone cypionate 200 mg/mL intramuscular oil RxNorm: 431066 Milliliter 09/16/2018 No longer Active testosterone cypionate 200 mg/mL intramuscular oil RxNorm: 207460 1Milliliter 09/02/2018 No longer Active testosterone cypionate 200 mg/mL intramuscular oil RxNorm: 084304 Milliliter 08/19/2018 No longer Active testosterone cypionate 200 mg/mL intramuscular oil RxNorm: 703572 Milliliter 07/15/2018 No longer Active testosterone cypionate 200 mg/mL intramuscular oil RxNorm: 204704 Milliliter 06/17/2018 No longer Active testosterone cypionate 200 mg/mL intramuscular oil RxNorm: 373531 Milliliter 05/21/2018 No longer Active ceftriaxone 500 mg solution for injection RxNorm: 4027717 08/03/2015 No longer A ctive Immunizations Vaccine [...] Code Result Date Comp. Metabolic Panel (14) 12406 GLUCOSE 117 mg/dL 12/17/2018 Comp. Metabolic Panel (14) 01982 BUN 17 mg/dL 12/17/2018 Comp. Metabolic Panel (14) 76085 CREATININE 0.99 mg/dL 12/17/2018 Comp. Metabolic Panel (14) 23577 SODIUM 137 mmol/L 12/17/2018 Comp. Metabolic Panel (14) 29408 POTASSIUM 4.6 mmol/L 12/17/2018 Comp. Metabolic Panel (14) 81440 CHLORIDE 102 mmol/L 12/17/2018 Comp. Metabolic Panel (14) 63540 CARBON DIOXIDE 21 mmol/L 12/17/2018 Comp. Metabolic Panel (14) 24786 CALCIUM 9.4 mg/dL 12/17/2018 Comp. Metabolic Panel (14) 99059 TOTAL PROTEIN 7.5 g/dL 12/17/2018 Comp. Metabolic Panel (14) 24869 ALBUMIN 5.1 g/dL 12/17/2018 Comp. Metabolic Panel (14) 26823 ALKALINE PHOSPHATASE 79 U/L 12/17/2018 Comp. Metabolic Panel (14) 69954 TOTAL BILIRUBIN 0.5 mg/dL 12/17/2018 Comp. Metabolic Panel (14) 31087 SGOT (AST) 34 U/L 12/17/2018 Comp. Metabolic Panel (14) 30317 SGPT (ALT) 40 U/L 12/17/2018 Comp. Metabolic Panel (14) 84708 eGFR (mL/min/1.73m2) 115 12/17/2018 Comp. Metabolic Panel (14) 93423 INTERPRETATION 12/17/2018 Testosterone Serum 273350 TESTOSTERONE 96.8 ng/dL 12/17/2018 Cbc With Differential/Platelet 48412 WBC 5.61 thou/uL 9 Cbc With Differential/Platelet 74472 RBC 5.53 mil/uL 12/17/2018 Cbc With Differential/Platelet 67331 HEMOGLOBIN 15.4 g/dL 12/17/2018 Cbc With Differential/Platelet 51783 HEMATOCRIT 48.1 % 12/17/2018 Cbc With Differential/Platelet 65889 MCV 87.0 fL 12/17/2018 Cbc With Differential/Platelet 69303 MCH 27.8 pg 12/17/2018 Cbc With Differential/Platelet 87124 MCHC 32.0 g/dL 12/17/2018 Cbc With Differential/Platelet 47304 RDW-CV 13.9 % 12/17/2018 Cbc With Differential/Platelet 47215 PLATELET COUNT 294 thou/uL 12/17/2018 Cbc With Differential/Platelet 48004 NEUTROPHIL % 71.2 % 12/17/2018 Cbc With Differential/Platelet 25113 LYMPHOCYTE % 22.2 % 12/17/2018 Cbc With Differential/Platelet 87518 MONOCYTE % 5.4 % 12/17/2018 Cbc With Differential/Platelet 70435 EOS % 0.9 % 12/17/2018 Cbc With Differential/Platelet 17722 BASO % 0.4 % 12/17/2018 Cbc With Differential/Platelet 91974 NEUTROPHIL ABS # 3.99 thou/uL 12/17/2018 Cbc With Differential/Platelet 43652 LYMPH ABS # 1.25 thou/uL 12/17/2018 Cbc With Differential/Platelet 34510 MONOCYTE ABS # 0.30 thou/uL 12/17/2018 Cbc With Differential/Platelet 44698 EOS ABS # 0.05 thou/uL 9 Cbc With Differential/Platelet 08759 BASO ABS # 0.02 thou/uL 12/17/2018 Lipid Panel 33732 CHOLES TEROL 227 mg/dL 12/17/2018 Lipid Panel 69460 TRIGLY CERIDES 229 mg/dL 12/17/2018 Lipid Panel 07633 HDL 41 mg/dL 12/17/2018 Lipid Panel 20145 CHOLES TEROL/HDL 5.54 12/17/2018 Lipid Panel 22304 LDL (C ALCULATED) 140 mg/dL 12/17/2018 Lipid Panel 68541 LDL/HDL 3.41 12/17/2018 Lipid Panel 88862 INTERP RETATION 12/17/2018 Tsh 699021 TSH 1.190 uIU/mL 12/17/2018 Testosterone Serum 870908 TESTOSTERONE 44.1 ng/dL 08/18/2018 Hematocrit 894815 WBC 7.62 thou/uL 08/17/2018 Hematocrit 091511 RBC 5.23 mil/uL 08/17/2018 Hematocrit 558230 HEMOGL OBIN 15.0 g/dL 08/17/2018 Hematocrit 264547 HEMATO CRIT 45.0 % 08/17/2018 Hematocrit 256420 MCV 86.0 fL 08/17/2018 Hematocrit 217616 MCH 28.7 pg 08/17/2018 Hematocrit MCHC 33.3 g/dL 08/17/2018 Hematocrit 390575 RDW-CV 12.9 % 08/17/2018 Hematocrit 588463 PLATEL ET COUNT 313 thou/uL 08/17/2018 Hemoglobin 435252 WBC 7.62 thou/uL 08/17/2018 Hemoglobin 806881 RBC 5.23 mil/uL 08/17/2018 Hemoglobin 885105 HEMOGL OBIN 15.0 g/dL 08/17/2018 Hemoglobin 993175 HEMATO CRIT 45.0 % 08/17/2018 Hemoglobin 824259 MCV 86.0 fL 08/17/2018 Hemoglobin 962841 MCH 28.7 pg 08/17/2018 Hemoglobin 672758 MCHC 33.3 g/dL 08/17/2018 Hemoglobin 074340 RDW-CV 12.9 % 08/17/2018 Hemoglobin 536320 PLATEL ET COUNT 313 thou/uL 08/17/2018 Culture Mrsa 998315 MRSA CULTURE SEE NOTES 06/21/2018 Comp. Metabolic Panel (14) 62549 GLUCOSE 101 mg/dL 06/18/2018 Comp. Metabolic Panel (14) 53681 BUN 18 mg/dL 06/18/2018 Comp. Metabolic Panel (14) 48268 CREATININE 0.99 mg/dL 06/18/2018 Comp. Metabolic Panel (14) 75718 SODIUM 141 mmol/L 06/18/2018 Comp. Metabolic Panel (14) 67135 POTASSIUM 4.3 mmol/L 06/18/2018 Comp. Metabolic Panel (14) 18851 CHLORIDE 103 mmol/L 06/18/2018 Comp. Metabolic Panel (14) 74134 CARBON DIOXIDE 23 mmol/L 06/18/2018 Comp. Metabolic Panel (14) 40975 CALCIUM 9.8 mg/dL 06/18/2018 Comp. Metabolic Panel (14) 87793 TOTAL PROTEIN 7.1 g/dL 06/18/2018 Comp. Metabolic Panel (14) 53749 ALBUMIN 5.2 g/dL 06/18/2018 Comp. Metabolic Panel (14) 07469 ALKALINE PHOSPHATASE 65 U/L 06/18/2018 Comp. Metabolic Panel (14) 83807 TOTAL BILIRUBIN 0.6 mg/dL 06/18/2018 Comp. Metabolic Panel (14) 32994 SGOT (AST) 21 U/L 06/18/2018 Comp. Metabolic Panel (14) 85060 SGPT (ALT) 24 U/L 06/18/2018 Comp. Metabolic Panel (14) 37943 eGFR (mL/min/1.73m2) 115 06/18/2018 Comp. Metabolic Panel (14) 64463 INTERPRETATION 06/18/2018 Cbc With Differential/Platelet 77126 WBC 4.55 thou/uL 8 Cbc With Differential/Platelet 42655 RBC 5.13 mil/uL 06/18/2018 Cbc With Differential/Platelet 38313 HEMOGLOBIN 14.4 g/dL 06/18/2018 Cbc With Differential/Platelet 41638 HEMATOCRIT 44.1 % 06/18/2018 Cbc With Differential/Platelet 16870 MCV 85.9 fL 06/18/2018 Cbc With Differential/Platelet 81538 MCH 28.1 pg 06/18/2018 Cbc With Differential/Platelet 35301 MCHC 32.7 g/dL 06/18/2018 Cbc With Differential/Platelet 68839 RDW-CV 13.4 % 06/18/2018 Cbc With Differential/Platelet 03823 PLATELET COUNT 287 thou/uL 06/18/2018 Cbc With Differential/Platelet 72875 NEUTROPHIL % 53.9 % 06/18/2018 Cbc With Differential/Platelet 49537 LYMPHOCYTE % 36.1 % 06/18/2018 Cbc With Differential/Platelet 99337 MONOCYTE % 7.4 % 06/18/2018 Cbc With Differential/Platelet 72444 EOS % 1.9 % 06/18/2018 Cbc With Differential/Platelet 22549 BASO % 0.8 % 06/18/2018 Cbc With Differential/Platelet 33402 NEUTROPHIL ABS # 2.45 thou/uL 06/18/2018 Cbc With Differential/Platelet 01543 LYMPH ABS # 1.64 thou/uL 06/18/2018 Cbc With Differential/Platelet 00270 MONOCYTE ABS # 0.34 thou/uL 06/18/2018 Cbc With Differential/Platelet 30921 EOS ABS # 0.09 thou/uL 8 Cbc With Differential/Platelet 50298 BASO ABS # 0.04 thou/uL 06/18/2018 Review [...] Procedure Codes Date THER/PROPH/DIAG INJ SC/IM CPT-4: 54087 12/16/2018 THER/PROPH/DIAG INJ SC/IM CPT-4: 70338 11/15/2018 THER/PROPH/DIAG INJ SC/IM CPT-4: 59809 09/28/2018 THER/PROPH/DIAG INJ SC/IM CPT-4: 17930 09/16/2018 THER/PROPH/DIAG INJ SC/IM CPT-4: 27838 09/02/2018 THER/PROPH/DIAG INJ SC/IM CPT-4: 15592 08/19/2018 IMMUNIZATION ADMIN CPT- 4: 65244 08/02/2018 FLU VAC NO PRSV 4 VA L 3 YRS+ CPT-4: 34188 08/02/2018 THER/PROPH/DIAG INJ SC/IM CPT-4: 25905 07/15/2018 THER/PROPH/DIAG INJ SC/IM CPT-4: 89177 06/17/2018 THER/PROPH/DIAG INJ SC/IM CPT-4: 06970 05/21/2018 THER/PROPH/DIAG INJ SC/IM CPT-4: 64109 08/03/2015 ROCEPHIN, PER 250 MG CPT-4: J0696 08/03/2015 Vital Signs Date Vital 12/20/2018 Blood Pressure 1: 124/76 Code: 8480-6 BMI: 35.4 Code: 47998-7 Heart Rate 1: 79 bpm Height: 5'7" SpO2: 99% Weight: 226 lbs 12/16/2018 Blood Pressure 1: 160/90 Code: 8480-6 BMI: 35.4 Code: 22111-2 Heart Rate 1: 90 bpm Height: 5'7" SpO2: 95% Weight: 226 lbs 11/01/2018 Blood Pressure 1: 146/82 Code: 8480-6 BMI: 36.0 Code: 97272-6 Heart Rate 1: 87 bpm Height: 5'7" SpO2: 98% Weight: 230 lbs 09/24/2018 Blood Pressure 1: 140/82 Code: 8480-6 BMI: 36.0 Code: 87840-3 Heart Rate 1: 86 bpm Height: 5'7" SpO2: 98% Temperature: 37.1 (C ) / 98.7 (F) Weight: 230 lbs 08/16/2018 Blood Pressure 1: 148/82 Code: 8480-6 Blood Pressure 2: 157/92 Code: 8480-6 BMI: 35.9 Code: 15207-6 Heart Rate 1: 72 bpm Height: 5'7" SpO2: 96% Weight: 229 lbs 08/02/2018 Blood Pressure 1: 142/86 Code: 8480-6 BMI: 35.2 Code: 41387-3 Heart Rate 1: 101 bpm Height: 5'7" SpO2: 97% Weight: 225 lbs 05/31/2018 Blood Pressure 1: 134/82 Code: 8480-6 BMI: 35.4 Code: 62162-6 Heart Rate 1: 91 bpm Height: 5'7" SpO2: 96% Weight: 226 lbs 05/20/2018 Blood Pressure 1: 160/100 Code: 8480-6 BMI: 35.2 Code: 17250-2 Heart Rate 1: 89 bpm Height: 5'7" SpO2: 98% Weight: 225 lbs 05/10/2018 Blood Pressure 1: 124/70 Code: 8480-6 BMI: 35.1 Code: 31736-8 Heart Rate 1: 93 bpm Height: 5'7" SpO2: 99% Weight: 224 lbs 01/15/2018 Blood Pressure 1: 142/92 Code: 8480-6 BMI: 36.3 Code: 88750-3 Heart Rate 1: 77 bpm Height: 5'7" SpO2: 98% Weight: 232 lbs 12/15/2017 Blood Pressure 1: 156/98 Code: 8480-6 BMI: 36.2 Code: 61566-0 Heart Rate 1: 87 bpm Height: 5'7" [...] eye 01/15/2018 None vision change Quality [facility] 01/15/2018 None vision change Quality lo ss [...] vision 12/15/2017 None vision change [facility] 12/15/2017 None vision change Onset and Resolution [...] arm[ICD10: M79.601] [facility] CPT-4: 34216 12/20/2018 ([id number]) [id number] EST. 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 PATIENT, LEVEL III Diagnosis: Acute upper respiratory infection, unspecified[ICD10: J06.9] Diagnosis: Other allergic rhinitis[ICD10: J30.89] [facility] CPT-4: 23731 09/24/2018 ([id number]) [id number] EST. 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 P ATIENT, LEVEL IV Diagnosis: Essential (primary) hypertension[ICD10: I10] Diagnosis: Cervicalgia[ICD10: M54.2] Radha Gonzalez MD, [facility] CPT-4: 27864 05/31/2018 ([id number]) [id number] EST. P ATIENT, LEVEL IV Diagnosis: Spinal stenosis, cervical region[ICD10: M48.02] Diagnosis: Spinal stenosis, thoracic region[ICD10: M48.04] Diagnosis: Essential (primary) hypertension[ICD10: I10] Diagnosis: Testicular hypofunction[ICD10: E29.1] Hannah Gonzalez MD, [facility] CPT-4: 21108 05/20/2018 [address] EST. PATIENT, LEVEL III Diagnosis: Ischemic optic neuropathy, left eye[ICD10: H47.012] Diagnosis: Essential (primary) hypertension[ICD10: I10] Diagnosis: Decreased libido[ICD10: R68.82] Diagnosis: Other malaise[ICD10: R53.81] Diagnosis: Other fatigue[ICD10: R53.83] Diagnosis: Cervicalgia[ICD10: M54.2] Diagnosis: Pain in thoracic spine[ICD10: M54.6] Sonia Gonzalez MD, [facility] CPT- 4: 63941 05/10/2018 ([id number]) 92415 EST. 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] Diagnosis: Obstructive sleep apnea (adult) (pediatric)[ICD10: G47.33] Radha Gonzalez MD, C CPT-4: 00631 01/15/2018 ([id number]) PREV VISIT N EW AGE 40-64 Diagnosis: Encounter for general adult medical examination with abnormal findings[ICD10: Z00.01] Radha Gonzalez MD, [facility] CPT-4: 36165 12/15/2017 ([id number]) OFFICE/OUTPA TIENT VISIT NEW Diagnosis: Laceration of thumb[ICD9: 883.0] Radha Gonzalez MD, [facility] CPT-4: 61249 08/03/2015 Plan of Care Planned Activity Notes C odes Status Date Patient Education: Patient Medication Summary Completed 12/21/2018 Care Plan: %Hba1C add to blood from 12/17 LOINC : 71089-0 Pending 12/21/2018 Visit Plan: Right arm pain - dayna deformity noted - will refer to ortho - The pt is to use prn antiinflammatories to manage acute pain. The patient is to call the office if the pain is worsening or does not improve. 12/20/2018 Appointment: Sonia Potter WPtel: [address] [place], [place] [phone] (15 min) Moderate 12/20/2018 Patient [...] with testosterone. 12/16/2018 Appointment: Radha Gonzalez WPtel: [facility] (15 min) Moderate 12/16/2018 Patient Education: [...] as needed. 11/01/2018 Appointment: Rad[facility] Gonzalez [facility] [phone] [facility] (15 min) Moderate 11/01/2018 Patient Education: Patient [...] spray. 09/24/2018 [facility]ment[phone] [facility] (15 min) Moderate 09/24/2018 Patient Education: [...] appt in September 30, 2018. 08/16/2018 Appointment: [place] Radha WPtel: [facility] (15 min) Moderate 08/16/2018 Patient Education: [...] in clinic. 08/02/2018 Appointment: Radha Gonzalez WPtel: [facility] (15 min) Moderate 08/02/2018 Patient Education: Patient Medication Summary Completed 08/02/2018 Care Plan: Referral Order SNOMED-CT : 903384736 Pending 08/02/2018 Appointment: Injection 07/15/2018 Patient Education: [...] Cervical spine stenosis - referral to [facility]. I have also recommended a Referral to Dr. Dunaway. I have called and talked to Dr. Dunaway - he looked at the pt's imaging and agrees that getting the pt in to be seen soon would be a preferred option. 05/31/2018 Appointment: Radha Gonzalez WPtel: [facility] (15 min) Moderate 05/31/2018 Patient Education: Patient Medication Summary Completed 05/31/2018 Care Plan: Referral Order SNOMED-CT : [id number] Pending 05/31/2018 Care Plan: Referral Order SNOMED-CT : 809401637 Pending 05/31/2018 Appointment: Injection 05/21/2018 Patient Education: Patient Medication Summary Completed 05/21/2018 Care Plan: Referral Order SNOMED-CT : 826145293 Pending 05/21/2018 Visit Plan: Cervical and thoracic s tenosis with spinal cord compression -refer for appt with Dr Marr -rx for hydrocodone for pain-start gabapentin at bedtime Soft tissue lesion-left chest-schedule CTfor further evaluation HTN-elevated today-hold adderall-monitor blood pressure 05/20/2018 Appointment: Hannah Simons WPtel: [phone] [place] (15 min) Moderate 05/20/2018 Patient [...] this. 05/10/2018 Appointment: Sonia Potter WPtel: [phone] [facility] [place] (15 min) Moderate 05/10/2018 Patient Education: Patient Medication Summary Completed 05/10/2018 Visit Plan: Sleep apnea - rx for cp ap - actually autopap was recommended and pt given rx today. HTN - referral to dr. kapoor - pt needs stress testing. 01/15/2018 Appointment: Radha Gonzalez WPtel: [facility] (15 min) Moderate 01/15/2018 Patient Education: Patient Medication Summary Completed 01/15/2018 Care Plan: Referral Order SNOMED-CT : 238520816 Pending 01/15/2018 Visit Plan: Well Adult - [...] one month. 12/15/2017 Appointment: Radha Gonzalez WPtel: [address] [place], [place] [phone] New Patient 12/15/2017 Patient Education: Patient Medication Summary Completed 12/15/2017 Care Plan: CHEST X-RAY 2VW FRONTAL&LATL LOINC : 31171-9 Pending 12/15/2017 Appointment: Radha Gonzalez WPtel: [address] [place], [place] [phone] (15 min) Moderate 12/08/2017 Appointment: (S) New Patient 08/13/2015 Visit Plan: steri strip placed on t humb of right hand - antibiotic shot given to patient and rx for keflex 500mg qid x 10 days given to the patient to fill prior to his trip to [place] 08/03/2015 Patient Education: Patient Medication Summary Completed 08/03/2015 Referral: External, Ordering Provider 08/03 Referral info faxed to [place]. Patient informed to be expecting a call from them with appt info Appointment Requested Referral: External, Ordering Provider Referral Appointment Requested Referral: External, Ordering Provider I called today; they will call him to schedule. Completed Referral: Armani Dunaway Referral Appointment Requested Referral: Mayte Kapoor Referral Appointment Requested Referral[phone] [facility] Referral Appointment Requested Referral: External, [...] to fill prior to his trip to [place] will refill meds for 90 days Will [...]
--- NOTE | 2020-04-28 00:50 | ED GI ---
General Chief Complaint: Abdominal/GI Problems Stated Complaint: VOMITING,DIARRHEA Source of Information: Patient, EMS History of Present Illness Date Seen by Provider: Apr 28, 2020 Time Seen by Provider: 00:06 Initial Comments PT ARRIVES VIA EMS FROM HOME C/O NAUSEA/VOMITING/DIARRHEA FOR 2 HOURS HAS VOMITED "AT LEAST 20 TIMES AND NOW JUST DRY HEAVES" STATES HE HAS HAD DIARRHEA > 10 BUT < 20 TIMES, NO BLACK/BLOODY/TARRY STOOLS NO ABDOMINAL PAIN NO FEVER, BUT HAS HAD CHILLS AND WAS "COLD AND CLAMMY AND DRENCHED IN SWEAT--IT WAS POURING OFF ME AND POURING ON THE FLOOR" STATES HE "JUST FELT REAL WEAK" STATES HE FELT FINE ALL DAY NO COUGH/URI OR SHORTNESS OF BREATH NO CHEST PAIN NO PALPITATIONS NO SYNCOPE NO RECENT ILLNESS NO SICK CONTACTS OR SUSPICIOUS FOODS NO KNOWN EXPOSURE TO COVID-19 PT IS UNEMPLOYED LIVES WITH DAUGHTER PT STATES HE HAS DISH SYNDROME, ANTI-PHOSPHOLIPID SYNDROME, "AND SOME OTHER AUTOIMMUNE DISEASE" --TAKES METHOTREXATE PT STATES "I GET THIS CONDITION" "I HAVEN'T HAD IT FOR YEARS" STATES HE WAS EVALUATED AT [facility] AND HAD EGD MANY YEARS AGO FOR THIS PT INSISTS THAT THIS IS HIS "CHRONIC" PROBLEM "BECAUSE IT STARTED WITH THE SULFUR BURPS" PCP: DR. BEAR Allergies and Home Medications Allergies Coded Allergies: No Known Drug Allergies (Unverified , 05/26/18) Home Medications L. Acidophilus/Pectin, Claiborne 1 Each Capsule, 2 EACH PO QID Prescribed by: COREY QUICK on 04/28/20223 Ondansetron 8 Mg Tab.rapdis, 8 MG PO Q6H Prescribed by: COREY QUICK on 04/28/20223 Patient Home Medication List Home Medication List Reviewed: Yes Review of Systems Review of Systems Constitutional: see HPI, diaphoresis, weakness EENTM: No Symptoms Reported Respiratory: No Symptoms Reported; Denies Cough, Denies Shortness of Air Cardiovascular: No Symptoms Reported; Denies Chest Pain, Denies Irregular Heart Rate, Denies Lightheadedness, Denies Palpitations, Denies Syncope Gastrointestinal: See HPI; Denies Abdominal Pain; Diarrhea, Nausea, Vomiting Genitourinary: No Symptoms Reported Musculoskeletal: no symptoms reported Skin: no symptoms reported Psychiatric/Neurological: No Symptoms Reported; Denies Headache Endocrine: No Symptoms Reported Hematologic/Lymphatic: No Symptoms Reported Past Aswfgjg-Ylwmyv-Wfupjs Hx Past Med/Social Hx: Reviewed and Corrections made Patient Social History Alcohol Use: Denies Use Recreational Drug Use: No Smoking Status: Never a Smoker Past Medical History Surgeries: Yes (C-SPINE FUSION C4-7;BILAT CARPAL & CUBITAL TUNNEL;LYMPH NODE IN NECK REMOV) Orthopedic, Tonsillectomy Respiratory: No Cardiac: Yes High Cholesterol, Hypertension Neurological: No Genitourinary: No Gastrointestinal: No Musculoskeletal: Yes (DISH SYNDROME;C-SPINE FUSION; BILAT CARPAL AND CUBITAL TUNNEL REPAIR;) Degenerate Disk Disease Endocrine: No HEENT: No Cancer: No Psychosocial: Yes ADD/ADHD (?) Integumentary: No Family Medical History ADDITIONAL PAST MEDICAL HX: -ANTI-PHOSPHOLIPID ANTIBODIES -"ANOTHER AUTO-IMMUNE DISEASE" --PT CANNOT STATE WHAT IT IS -CHRONIC METHOTREXATE THERAPY Physical Exam Vital Signs Vital Signs - First Documented 04/28/20 00:15 Temp 35.9 Pulse 60 Resp 18 B/P (MAP) 131/87 (102) Pulse Ox 100 O2 Delivery Room Air Capillary Refill : Height/Weight/BMI Height: '" Weight: lbs. oz. kg; BMI Method: General Appearance: no apparent distress, obese Neck: non-tender, full range of motion, supple, normal inspection Respiratory: chest non-tender, normal breath sounds, no respiratory distress, no accessory muscle use Cardiovascular: normal peripheral pulses, regular rate, rhythm, no edema, no JVD, no murmur Gastrointestinal: normal bowel sounds, non tender, soft, no organomegaly, no pulsatile mass Extremities: normal inspection Back: normal inspection, no CVA tenderness Neurologic/Psychiatric: supervisor force adjustment II-XII nml as tested, no motor/sensory deficits, a lert, normal mood/affect, oriented x 3 Skin: normal color, warm/dry; No diaphoresis, No damp Progress/Results/Core Measures Results/Orders Lab Results Laboratory Tests Test 04/28/20 00:35 04/28/20 00:45 04/28/20 01:20 04/28/20 01:30 Range/Units White Blood Count 20.3 H 4.3-11.0 10^3/uL Red Blood Count 5.84 4.35-5.85 10^6/uL Hemoglobin 17.1 13.3-17.7 G/DL Hematocrit 49 40-54 % Mean Corpuscular Volume 84 80-99 FL Mean Corpuscular Hemoglobin 29 25-34 PG Mean Corpuscular Hemoglobin Concent 35 32-36 G/DL Red Cell Distribution Width 14.9 H 10.0-14.5 % Platelet Count 302 130-400 10^3/uL Mean Platelet Volume 10.0 7.4-10.4 FL Neutrophils (%) (Auto) 87 H 42-75 % Lymphocytes (%) (Auto) 4 L 12-44 % Monocytes (%) (Auto) 8 0-12 % Eosinophils (%) (Auto) 1 0-10 % Basophils (%) (Auto) 0 0-10 % Neutrophils # (Auto) 17.7 H 1.8-7.8 X 10^3 Lymphocytes # (Auto) 0.8 L 1.0-4.0 X 10^3 Monocytes # (Auto) 1.6 H 0.0-1.0 X 10^3 Eosinophils # (Auto) 0.2 0.0-0.3 10^3/uL Basophils # (Auto) 0.0 0.0-0.1 10^3/uL Neutrophils % (Manual) 85 % Lymphocytes % (Manual) 5 % Monocytes % (Manual) 4 % Band Neutrophils 6 % Blood Morphology Comment NORMAL Erythrocyte Sedimentation Rate 1 0-15 MM/HR Prothrombin Time 12.4 12.2-14.7 SEC INR Comment 0.9 0.8-1.4 Activated Partial Thromboplast Time 29 24-35 SEC D-Dimer 0.32 0.00-0.49 UG/ML Sodium Level 140 135-145 MMOL/L Potassium Level 5.1 H 3.6-5.0 MMOL/L Chloride Level 104 98-107 MMOL/L Carbon Dioxide Level 21 21-32 MMOL/L Anion Gap 15 H 5-14 MMOL/L Blood Urea Nitrogen 14 7-18 MG/DL Creatinine 1.38 H 0.60-1.30 MG/DL Estimat Glomerular Filtration Rate 55 BUN/Creatinine Ratio 10 Glucose Level 101 70-105 MG/DL Calcium Level 10.6 H 8.5-10.1 MG/DL Corrected Calcium 8.5-10.1 MG/DL Magnesium Level 2.0 1.6-2.4 MG/DL Total Bilirubin 0.4 0.1-1.0 MG/DL Aspartate Amino Transf (AST/SGOT) 43 H 5-34 U/L Alanine Aminotransferase (ALT/SGPT) 56 H 0-55 U/L Alkaline Phosphatase 76 40-136 U/L Lactate Dehydrogenase 303 H 125-220 U/L C-Reactive Protein High Sensitivity 0.24 0.00-0.50 MG/DL Total Protein 9.5 H 6.4-8.2 GM/DL Albumin 5.5 H 3.2-4.5 GM/DL Amylase Level 47 25-125 U/L Lipase 37 8-78 U/L Procalcitonin 0.04 <0.10 NG/ML Urine Color YELLOW Urine Clarity CLEAR Urine pH 5.5 5-9 Urine Specific Diamond >=1.030 1.016-1.022 Urine Protein 1+ H NEGATIVE Urine Glucose (UA) NEGATIVE NEGATIVE Urine Ketones 1+ H NEGATIVE Urine Nitrite NEGATIVE NEGATIVE Urine Bilirubin 1+ H NEGATIVE Urine Urobilinogen 0.2 < = 1.0 MG/DL Urine Leukocyte Esterase NEGATIVE NEGATIVE Urine RBC (Auto) NEGATIVE NEGATIVE Urine RBC NONE /HPF Urine WBC NONE /HPF Urine Squamous Epithelial Cells 2-5 /HPF Urine Crystals NONE /LPF Urine Bacteria NEGATIVE /HPF Urine Casts PRESENT /LPF Urine Hyaline Casts 5-10 H /LPF Urine Mucus LARGE H /LPF Urine Culture Indicated NO My Orders Orders - COREY QUICK DO Ed Iv/Invasive Line Start (04/28/20 00:20) Ekg Tracing (04/28/20 00:20) Monitor-Rhythm Ecg Trace Only (04/28/20 00:20) Chest 1 View, Ap/Pa Only (04/28/20 00:20) Amylase (04/28/20 00:20) Cbc With Automated Diff (04/28/20 00:20) Comprehensive Metabolic Panel (04/28/20 00:20) Lipase (04/28/20 00:20) Magnesium (04/28/20 00:20) Protime With Inr (04/28/20 00:20) Partial Thromboplastin Time (04/28/20 00:20) Ua Culture If Indicated (04/28/20 00:20) Fibrin Degradation Products (04/28/20 00:20) Procalcitonin (Pct) (04/28/20 00:20) Hs C Reactive Protein (04/28/20 00:20) Erythrocyte Sedimentation Rate (04/28/20 00:20) LDH (04/28/20 00:20) Coronavirus Sars-Cov-2 So 2019 (04/28/20 00:20) Ondansetron Injection (Zofran Injectio (04/28/20 00:30) Ed Iv/Invasive Line Start (04/28/20 00:20) Lactated Ringers (Lr 1000 Ml Iv Solution (04/28/20 00:20) Manual Differential (04/28/20 00:35) Hepatitis Panel Acute (04/28/20 01:11) Ed Iv/Invasive Line Start (04/28/20 01:15) Lactated Ringers (Lr 1000 Ml Iv Solution (04/28/20 01:15) Stool Culture (04/28/20 01:37) Fecal Wbc (04/28/20 01:37) Rx-Ondansetron Po (Rx-Zofran Po) (04/28/20 02:17) Medications Given in ED Current Medications Medications Dose Ordered Sig/Pepper Route Start Time Stop Time Status Last Admin Dose Admin Lactated Ringer's 1,000 ml @ 0 mls/hr Q0M ONCE IV 04/28/20 00:20 04/28/20 00:23 DC 04/28/20 00:40 0 MLS/HR Lactated Ringer's 1,000 ml @ 0 mls/hr Q0M ONCE IV 04/28/20 01:15 04/28/20 01:16 DC 04/28/20 01:26 0 MLS/HR Ondansetron HCl 8 mg ONCE ONCE IVP 04/28/20 00:30 04/28/20 00:31 DC 04/28/20 00:40 8 MG Vital Signs/I&O 04/28/20 04/28/20 00:15 02:35 Temp 35.9 36.5 Pulse 60 73 Resp 18 18 B/P (MAP) 131/87 (102) 127/78 (102) Pulse Ox 100 98 O2 Delivery Room Air Room Air Progress Progress Note : Progress Note COVID-19 TESTING PERFORMED AND PPE WORN AT ALL TIMES NO VOMITING DURING ER STAY--ALL NAUSEA RESOLVED AND STATES HE FEELS MUCH BETTER HAD 1 LOOSE STOOL DURING ER STAY--STOOL STUDIES ORDERED Initial ECG Impression Date: Apr 28, 2020 Initial ECG Impression Time: 00:28 Initial ECG Rate: 64 Initial ECG Rhythm: Normal Sinus Diagnostic Imaging Comments CXR--NO ACUTE PROCESS, PENDING RADIOLOGIST REVIEW Departure Impression Primary Impression: Gastroenteritis Additional Impressions: Mild dehydration COVID P.U.I. Disposition: 01 HOME, SELF-CARE Condition: Improved Departure-Patient Inst. Referrals: SAMARIA BEAR MD (PCP/Family) Primary Care Physician Patient Instructions: Coronavirus Disease 2019 (COVID-19) (DC), Dehydration, Adult (DC), [id number] Add. Discharge Instructions: HOME, REST CLEAR LIQUIDS--WATER, BROTH, JELLO, GATORADE WHEN YOUR VOMITING IS GONE AND YOU ARE TOLERATING FLUIDS, ADD BRATS DIET TO CLEAR LIQUIDS--BANANAS, RICE, APPLESAUCE, TOAST, SALTINES FOLLOW UP WITH YOUR DR IN 2-3 DAYS IF NO BETTER, RETURN TO ER IF WORSE QUARANTINE YOURSELF AND ALL HOUSEHOLD MEMBERS AND CONTACTS FOR THE NEXT 2 WEEKS, OR UNTIL CLEARED BY HEALTH DEPARTMENT All discharge instructions reviewed with patient and/or family. Voiced understanding. Scripts Ondansetron (Ondansetron Odt) 8 Mg Tab.rapdis 8 MG PO Q6H, #10 TAB Prov: COREY QUICK DO 04/28/20 L. Acidophilus/Pectin, Claiborne (Acidophilus Capsule) 1 Each Capsule 2 EACH PO QID, #40 CAP Prov: COREY QUICK DO 04/28/20 COREY QUICK DO Apr 28, 2020 00:50
--- OUTSIDE RECORDS SUMMARY | 2020-04-28 00:50 | XMS REPORT | CCD ---
Author Author Nilton Gonzalez Organization [facility] Address [address] [place] [address] Phone Care Team Providers Care Die Cast Technician Name Role Phone PP Unavailable CCM Unavailable Summary Purpose Interface Exchange Insurance Providers Payer name Policy type / Coverage type Covered libertarian ID Effective Begin Date Effective End Date [employer] [id number] 2018 Unknown Family history Brother Diagnosis Age At Onset Alcoholism Unknown Father Diagnosis Age At Onset Hypercholesterolemia Unknown Social History Social History Element Codes Description Effective Dates Marital status Unknown S chanda 12/15/2017 Number of children Unknown 1 12/15/2017 Employment Unknown Curre ntly employed [employer] Hy[employer] at [employer] 12/15/[address]: 267117496 Never smoker 12/15/[address]: 416221 Currently drinks alcohol <1 per week 12/15/2017 [...] Date Stop Date Sta tus Fill Instructions gabapentin 300 mg ca psule RxNorm: 926166 1 Capsule(s) PO QID 12/16/2018 12/10/2019 Active Voltaren 1 % topical gel RxNorm: 840104 2 Gram(s) APPLY TOPIC ALLY four TIMES A DAY 12/16/2018 01/20/2019 Ac tive testosterone cypiona te 200 mg/mL intramuscular oil RxNorm: 0866336 Milliliter(s) IM 12/16/2018 12/16/2018 In active trazodone 100 mg tablet RxNorm: 185956 TAKE ONE TABLET BY MOUTH EVERY NIGHT AT BEDTIME 12/07/2018 06/04/2019 Active hydrocodone 5 mg-fanny taminophen 325 mg tablet RxNorm: 986635 1 Tablet(s) PO TID MA N 11/29/2018 No Stop Date Active Adderall 30 mg tablet RxNorm: 443785 2 Tablet(s) PO daily 11/29/2018 12/28/2018 Active clindamycin 1 %-arthur oyl peroxide 5 % topical gel RxNorm: 553774 TOP APPLY TO AFFECTED AREA(S) ON SERNA TWO TIMES A DAY 11/17/2018 No Stop Date Active testosterone cypiona te 200 mg/mL intramuscular oil RxNorm: 7405552 1 Milliliter(s) IM 2 x month 11/17/2018 03/16/2019 Active Zorvolex 35 mg capsule RxNorm: 0794270 1 Capsule(s) PO TID as needed for pain 11/15/2018 05/13/2019 Ac tive ketoconazole 2 % top ical cream RxNorm: 424169 APPLY ONE GRAM TOPICA LLY TWICE A DAY 11/15/2018 11/29/2018 In active testosterone cypiona te 200 mg/mL intramuscular oil RxNorm: 8089959 1 Milliliter(s) IM 11/15/2018 11/14/2018 Inactive hydrocodone 5 mg-fanny taminophen 325 mg tablet RxNorm: 980058 1 Tablet(s) PO TID MA N 11/02/2018 11/28/2018 In active Singulair 10 mg tablet RxNorm: 977865 1 Tablet(s) PO daily 11/01/2018 07/28/2019 Active testosterone cypiona te 200 mg/mL intramuscular oil RxNorm: 3479932 1 Milliliter(s) IM 2 x month 11/01/2018 11/16/2018 Inactive Adderall 30 mg tablet RxNorm: 079161 2 Tablet(s) PO daily 10/29/2018 11/27/2018 Inactive gabapentin 300 mg ca psule RxNorm: 405744 1 Capsule(s) PO BID m ay take TID 10/19/2018 12/15/2018 In active gabapentin 300 mg ca psule RxNorm: 576804 1 Capsule(s) PO BID m ay take TID 10/19/2018 10/18/2018 In active alprazolam 1 mg tablet RxNorm: 051424 1 Tablet(s) PO TID as needed 10/15/2018 12/13/2018 Inactive testosterone cypiona te 200 mg/mL intramuscular oil RxNorm: 532034 Milliliter(s) IM 09/28/2018 09/28/2018 In active pravastatin 40 mg ta blet RxNorm: 776559 TAKE ONE TABLET BY [facility] EVERY NIGHT AT BEDTIME 09/27/2018 09/21/2019 Active Tamiflu 75 mg capsule RxNorm: 888816 1 Capsule(s) PO BID 09/24/2018 09/28/2018 Inactive Adderall 30 mg tablet RxNorm: 918130 2 Tablet(s) PO daily 09/20/2018 10/19/2018 Inactive hydrocodone 5 mg-fanny taminophen 325 mg tablet RxNorm: 548268 1 Tablet(s) PO TID MA N 09/20/2018 11/01/2018 In active testosterone cypiona te 200 mg/mL intramuscular oil RxNorm: 638410 Milliliter(s) IM 09/16/2018 09/16/2018 In active testosterone cypiona te 200 mg/mL intramuscular oil RxNorm: 676878 1 Milliliter(s) IM 09/02/2018 09/02/2018 Inactive testosterone cypiona te 200 mg/mL intramuscular oil RxNorm: 929368 Milliliter(s) IM 08/19/2018 08/19/2018 In active tramadol 50 mg tablet RxNorm: 674314 1-2 Tablet(s) PO Q6 as needed 08/18/2018 No Stop Date Active Adderall 30 mg tablet RxNorm: 252905 2 Tablet(s) PO daily 08/18/2018 09/16/2018 Inactive Dexilant 60 mg capsu le, delayed release RxNorm: 164367 1 Capsule(s) PO BID 08/17/2018 08/11/2019 Ac tive atenolol 50 mg tablet RxNorm: 887689 1 Tablet(s) PO BID 08/17/2018 08/11/2019 Active ketoconazole 2 % top ical cream RxNorm: 435540 1 Gram(s) TOP BID 08/17/2018 08/26/2018 Inactive Zorvolex 35 mg capsule RxNorm: 7423195 1 Capsule(s) PO TID as needed for pain 08/17/2018 08/16/2018 In active Zorvolex 35 mg capsule RxNorm: 8092499 1 Capsule(s) PO TID as needed for pain 08/17/2018 11/14/2018 In active ketoconazole 2 % top ical cream RxNorm: 860548 1 Gram(s) TOP BID 08/02/2018 08/11/2018 Inactive hydrocortisone 2.5 % topical cream RxNorm: 220010 1 Application TOP BID 07/21/2018 No Stop Date Active Adderall 30 mg tablet RxNorm: 905394 2 Tablet(s) PO daily 07/20/2018 08/17/2018 Inactive testosterone cypiona te 200 mg/mL intramuscular oil RxNorm: 022193 Milliliter(s) IM 07/15/2018 07/15/2018 In active alprazolam 1 mg tablet RxNorm: 870397 1 Tablet(s) PO TID as needed 07/12/2018 09/07/2018 Inactive hydrocodone 5 mg-fanny taminophen 325 mg tablet RxNorm: 260089 1 Tablet(s) PO TID MA N 06/30/2018 09/19/2018 In active pravastatin 40 mg ta blet RxNorm: 306603 1 Tablet(s) PO QHS 06/18/2018 09/15/2018 Inactive Adderall 30 mg tablet RxNorm: 990837 2 Tablet(s) PO daily 06/18/2018 07/17/2018 Inactive testosterone cypiona te 200 mg/mL intramuscular oil RxNorm: 319139 Milliliter(s) IM 06/17/2018 06/17/2018 In active Voltaren 1 % topical gel RxNorm: 187423 APPLY TOPICALLY TWO T IMES A DAY 06/16/2018 07/21/2018 In active Vitamin D2 50,000 un it capsule RxNorm: 0851548 1 Capsule(s) PO QW 05/21/2018 No Stop Date Active Adderall 30 mg tablet RxNorm: 448313 2 Tablet(s) PO daily 05/21/2018 06/17/2018 Inactive testosterone cypiona te 200 mg/mL intramuscular oil RxNorm: 663246 Milliliter(s) IM 05/21/2018 05/21/2018 In active testosterone cypiona te 200 mg/mL intramuscular oil RxNorm: 2008535 1 Milliliter(s) IM monthly 05/20/2018 09/16/2018 Inactive testosterone cypiona te 200 mg/mL intramuscular oil RxNorm: 847428 1 Milliliter(s) IM monthly 05/20/2018 05/19/2018 Inactive hydrocodone 5 mg-fanny taminophen 325 mg tablet RxNorm: 167813 1 Tablet(s) PO TID MA N 05/20/2018 06/29/2018 In active Vitamin D2 50,000 un it capsule RxNorm: 9334431 1 Capsule(s) PO QW 05/18/2018 05/20/2018 Inactive triamcinolone aceton destin 0.025 % topical cream RxNorm: 0760621 1 Application TOP BI D 05/13/2018 No Stop Date Active Dexilant 60 mg capsu le, delayed release RxNorm: 109805 1 Capsule(s) PO BID 05/13/2018 08/16/2018 In active Zorvolex 35 mg capsule RxNorm: 4435334 1 Capsule(s) PO TID as needed for pain 05/12/2018 08/09/2018 In active Voltaren 1 % topical gel RxNorm: 342307 1 Application TOP BID 05/12/2018 06/15/2018 Inactive acyclovir 400 mg tablet RxNorm: 884802 1 Tablet(s) PO TID as needed take at ons et of symptoms of cold sores x 5 days 05/10/2018 No Stop Date Active paroxetine 20 mg tablet RxNorm: 0178659 2 Tablet(s) PO QHS 05/10/2018 10/31/2019 Active ProAir HFA 90 mcg/ac tuation aerosol inhaler RxNorm: 544100 1 Puff(s) INH QID as needed 05/10/2018 No Stop Date Active baclofen 20 mg tablet RxNorm: 864436 1 Tablet(s) PO TID as needed muscle spas ms 05/10/2018 06/08/2018 In active Singulair 10 mg tablet RxNorm: 533616 1 Tablet(s) PO daily 05/10/2018 08/07/2018 Inactive atenolol 50 mg tablet RxNorm: 038173 1 Tablet(s) PO BID 05/10/2018 08/07/2018 Inactive triamcinolone aceton destin 0.025 % topical cream RxNorm: 6404367 1 Application TOP BI D 05/10/2018 05/12/2018 In active tramadol 50 mg tablet RxNorm: 339928 1 Tablet(s) PO TID as needed 05/10/2018 05/19/2018 Inactive Dexilant 60 mg capsu le, delayed release RxNorm: 581715 1 Capsule(s) PO daily 05/10/2018 05/12/2018 In active alprazolam 1 mg tablet RxNorm: 832621 1 Tablet(s) PO TID as needed 05/10/2018 08/06/2018 Inactive trazodone 100 mg tablet RxNorm: 747622 1 Tablet(s) PO QHS 05/10/2018 11/05/2018 Inactive cyclobenzaprine 10 m g tablet RxNorm: 687494 1 Tablet(s) PO TID as needed muscle spasms 05/07/2018 07/12/2018 Inactive trazodone 100 mg tablet RxNorm: 419276 1 Tablet(s) PO QHS 05/07/2018 05/09/2018 Inactive Adderall 30 mg tablet RxNorm: 895553 2 Tablet(s) PO daily 04/19/2018 05/18/2018 Inactive alprazolam 1 mg tablet RxNorm: 333163 1 Tablet(s) PO BID 04/19/2018 05/09/2018 Inactive Adderall 30 mg tablet RxNorm: 129921 2 Tablet(s) PO daily 03/26/2018 04/18/2018 Inactive paroxetine 20 mg tablet RxNorm: 0321632 2 Tablet(s) PO QHS 03/15/2018 05/09/2018 Inactive Adderall 30 mg tablet RxNorm: 971748 2 Tablet(s) PO daily 02/25/2018 03/25/2018 Inactive cyclobenzaprine 10 m g tablet RxNorm: 047850 1 Tablet(s) PO TID as needed muscle spasms 02/22/2018 05/06/2018 Inactive tramadol 50 mg tablet RxNorm: 566365 1 Tablet(s) PO TID as needed 02/22/2018 03/07/2018 Inactive tramadol 50 mg tablet RxNorm: 484288 1 Tablet(s) PO TID as needed 02/22/2018 02/21/2018 Inactive trazodone 100 mg tablet RxNorm: 778480 1 Tablet(s) PO QHS 02/03/2018 05/03/2018 Inactive trazodone 100 mg tablet RxNorm: 462168 1 Tablet(s) PO QHS 02/03/2018 02/02/2018 Inactive Adderall 30 mg tablet RxNorm: 433366 2 Tablet(s) PO daily 01/27/2018 02/18/2018 Inactive acyclovir 400 mg tablet RxNorm: 118113 1 Tablet(s) PO TID as needed take at ons et of symptoms of cold sores x 5 days 01/15/2018 05/09/2018 Inactive Bactrim DS 800 mg-16 0 mg tablet RxNorm: 402384 1 Tablet(s) PO BID 01/11/2018 01/17/2018 Inactive Bactrim DS 800 mg-16 0 mg tablet RxNorm: 882836 1 Tablet(s) PO BID 01/11/2018 01/10/2018 Inactive Dexilant 60 mg capsu le, delayed release RxNorm: 909754 1 Capsule(s) PO daily 12/23/2017 05/09/2018 In active Dexilant 60 mg capsu le, delayed release RxNorm: 756849 1 Capsule(s) PO daily 12/23/2017 12/22/2017 In active atenolol 50 mg tablet RxNorm: 019669 1 Tablet(s) PO BID 12/15/2017 05/09/2018 Inactive alprazolam 1 mg tablet RxNorm: 808487 1-1.5 Tablet(s) PO daily 12/15/2017 04/18/2018 Inactive ceftriaxone 500 mg s olution for injection RxNorm: 4114133 Inj 08/03/2015 08/03/2015 Inactive paroxetine 20 mg tablet RxNorm: 6557057 2 Tablet(s) PO QHS 08/01/2015 10/29/2015 Inactive pravastatin 40 mg ta blet RxNorm: 109088 1/2 Tablet(s) PO QHS 08/01/2015 12/14/2017 Inactive Trazadone 100mg 100 mg RxNorm: 1 PO daily 08/01/2015 11/27/2015 Inactive Trazadone 100mg 100 mg RxNorm: 1 PO daily 08/01/2015 05/04/2018 Inactive atenolol 50 mg tablet RxNorm: 673630 1 Tablet(s) PO daily 08/01/2015 10/29/2015 Inactive ibuprofen 800 mg tablet RxNorm: 919143 1 Tablet(s) PO BID -TID No Start Date Active Zyrtec 10 mg tablet RxNorm: 7623831 1 Tablet(s) PO daily No Start Date Active pravastatin 40 mg ta blet RxNorm: 332571 1/2 Tablet(s) PO QHS No Start Date 07/31/2015 Inactive Benadryl Allergy 25 mg tablet RxNorm: 9437912 1 Tablet(s) PO daily No Start Date 07/19/2018 Inactive Adderall 30 mg tablet RxNorm: 320756 2 Tablet(s) PO daily No Start Date 01/26/2018 Inactive Aspirin Low Dose 81 mg tablet,delayed release RxNorm: 068152 1 Tablet(s) PO BID No Start Date 07/19/2018 Inactive Singulair 10 mg tablet RxNorm: 028213 1 Tablet(s) PO daily No Start Date 05/09/2018 Inactive cyclobenzaprine 10 m g tablet RxNorm: 631800 1 Tablet(s) PO TID as needed muscle spasms No Start Date 02/21/2018 Inactive Trazadone 100mg 100 mg RxNorm: 1 PO daily No Start Date 07/31/2015 Inactive clindamycin 1 %-arthur oyl peroxide 5 % topical gel RxNorm: 488020 TOP APPLY TO AFFECTED AREA(S) ON SERNA TWO TIMES A DAY No Start Date 11/16/2018 Inactive hydrocortisone 2.5 % topical cream RxNorm: 863735 1 Application TOP BID No Start Date 07/20/2018 Inactive alprazolam 1 mg tablet RxNorm: 285792 2 Tablet(s) PO daily No Start Date 12/14/2017 Inactive tramadol 50 mg tablet RxNorm: 488153 1-2 Tablet(s) PO Q6 as needed No Start Date 08/17/2018 Inactive Vitamin D2 50,000 un it capsule RxNorm: 4689613 1 Capsule(s) PO QW No Start Date 05/17/2018 Inactive pantoprazole 40 mg t ablet,delayed release RxNorm: 049742 1 Tablet(s) PO BID No Start Date 12/22/2017 Inactive atenolol 50 mg tablet RxNorm: 296720 1 Tablet(s) PO daily No Start Date 07/31/2015 Inactive paroxetine 20 mg tablet RxNorm: 113641 2 Tablet(s) PO QHS No Start Date 07/31/2015 Inactive Medication Administered Medication Codes Instruc tions Start Date Status testosterone cypionate 200 mg/mL intramuscular oil RxNorm: 9990696 Milliliter 12/16/2018 No longer Active testosterone cypionate 200 mg/mL intramuscular oil RxNorm: 4062352 1Milliliter 11/15/2018 No longer Active testosterone cypionate 200 mg/mL intramuscular oil RxNorm: 872924 Milliliter 09/28/2018 No longer Active testosterone cypionate 200 mg/mL intramuscular oil RxNorm: 133087 Milliliter 09/16/2018 No longer Active testosterone cypionate 200 mg/mL intramuscular oil RxNorm: 961668 1Milliliter 09/02/2018 No longer Active testosterone cypionate 200 mg/mL intramuscular oil RxNorm: 942150 Milliliter 08/19/2018 No longer Active testosterone cypionate 200 mg/mL intramuscular oil RxNorm: 360867 Milliliter 07/15/2018 No longer Active testosterone cypionate 200 mg/mL intramuscular oil RxNorm: 508555 Milliliter 06/17/2018 No longer Active testosterone cypionate 200 mg/mL intramuscular oil RxNorm: 879558 Milliliter 05/21/2018 No longer Active ceftriaxone 500 mg solution for injection RxNorm: 5171054 08/03/2015 No longer A ctive Immunizations Vaccine [...] Code Result Date Comp. Metabolic Panel (14) 85516 GLUCOSE 117 mg/dL 12/17/2018 Comp. Metabolic Panel (14) 23343 BUN 17 mg/dL 12/17/2018 Comp. Metabolic Panel (14) 76708 CREATININE 0.99 mg/dL 12/17/2018 Comp. Metabolic Panel (14) 13880 SODIUM 137 mmol/L 12/17/2018 Comp. Metabolic Panel (14) 39344 POTASSIUM 4.6 mmol/L 12/17/2018 Comp. Metabolic Panel (14) 12211 CHLORIDE 102 mmol/L 12/17/2018 Comp. Metabolic Panel (14) 43461 CARBON DIOXIDE 21 mmol/L 12/17/2018 Comp. Metabolic Panel (14) 88259 CALCIUM 9.4 mg/dL 12/17/2018 Comp. Metabolic Panel (14) 54876 TOTAL PROTEIN 7.5 g/dL 12/17/2018 Comp. Metabolic Panel (14) 84612 ALBUMIN 5.1 g/dL 12/17/2018 Comp. Metabolic Panel (14) 04551 ALKALINE PHOSPHATASE 79 U/L 12/17/2018 Comp. Metabolic Panel (14) 41703 TOTAL BILIRUBIN 0.5 mg/dL 12/17/2018 Comp. Metabolic Panel (14) 54471 SGOT (AST) 34 U/L 12/17/2018 Comp. Metabolic Panel (14) 24577 SGPT (ALT) 40 U/L 12/17/2018 Comp. Metabolic Panel (14) 95228 eGFR (mL/min/1.73m2) 115 12/17/2018 Comp. Metabolic Panel (14) 98795 INTERPRETATION 12/17/2018 Testosterone Serum 731377 TESTOSTERONE 96.8 ng/dL 12/17/2018 Cbc With Differential/Platelet 52338 WBC 5.61 thou/uL 9 Cbc With Differential/Platelet 34502 RBC 5.53 mil/uL 12/17/2018 Cbc With Differential/Platelet 01789 HEMOGLOBIN 15.4 g/dL 12/17/2018 Cbc With Differential/Platelet 58233 HEMATOCRIT 48.1 % 12/17/2018 Cbc With Differential/Platelet 26283 MCV 87.0 fL 12/17/2018 Cbc With Differential/Platelet 46467 MCH 27.8 pg 12/17/2018 Cbc With Differential/Platelet 48864 MCHC 32.0 g/dL 12/17/2018 Cbc With Differential/Platelet 47407 RDW-CV 13.9 % 12/17/2018 Cbc With Differential/Platelet 94142 PLATELET COUNT 294 thou/uL 12/17/2018 Cbc With Differential/Platelet 55281 NEUTROPHIL % 71.2 % 12/17/2018 Cbc With Differential/Platelet 76115 LYMPHOCYTE % 22.2 % 12/17/2018 Cbc With Differential/Platelet 03553 MONOCYTE % 5.4 % 12/17/2018 Cbc With Differential/Platelet 63932 EOS % 0.9 % 12/17/2018 Cbc With Differential/Platelet 86789 BASO % 0.4 % 12/17/2018 Cbc With Differential/Platelet 92834 NEUTROPHIL ABS # 3.99 thou/uL 12/17/2018 Cbc With Differential/Platelet 26501 LYMPH ABS # 1.25 thou/uL 12/17/2018 Cbc With Differential/Platelet 94173 MONOCYTE ABS # 0.30 thou/uL 12/17/2018 Cbc With Differential/Platelet 57162 EOS ABS # 0.05 thou/uL 9 Cbc With Differential/Platelet 51344 BASO ABS # 0.02 thou/uL 12/17/2018 Lipid Panel 60662 CHOLES TEROL 227 mg/dL 12/17/2018 Lipid Panel 83658 TRIGLY CERIDES 229 mg/dL 12/17/2018 Lipid Panel 17171 HDL 41 mg/dL 12/17/2018 Lipid Panel 34640 CHOLES TEROL/HDL 5.54 12/17/2018 Lipid Panel 56718 LDL (C ALCULATED) 140 mg/dL 12/17/2018 Lipid Panel 73657 LDL/HDL 3.41 12/17/2018 Lipid Panel 77528 INTERP RETATION 12/17/2018 Tsh 769595 TSH 1.190 uIU/mL 12/17/2018 Testosterone Serum 595415 TESTOSTERONE 44.1 ng/dL 08/18/2018 Hemoglobin 153608 WBC 7.62 thou/uL 08/17/2018 Hemoglobin 648684 RBC 5.23 mil/uL 08/17/2018 Hemoglobin 766846 HEMOGL OBIN 15.0 g/dL 08/17/2018 Hemoglobin 610967 HEMATO CRIT 45.0 % 08/17/2018 Hemoglobin 693494 MCV 86.0 fL 08/17/2018 Hemoglobin 561822 MCH 28.7 pg 08/17/2018 Hemoglobin 970421 MCHC 33.3 g/dL 08/17/2018 Hemoglobin 318963 RDW-CV 12.9 % 08/17/2018 Hemoglobin 461397 PLATEL ET COUNT 313 thou/uL 08/17/2018 Hematocrit 831682 WBC 7.62 thou/uL 08/17/2018 Hematocrit 529345 RBC 5.23 mil/uL 08/17/2018 Hematocrit 449492 HEMOGL OBIN 15.0 g/dL 08/17/2018 Hematocrit HEMATO CRIT 45.0 % 08/17/2018 Hematocrit MCV 86.0 fL 08/17/2018 Hematocrit MCH 28.7 pg 08/17/2018 Hematocrit MCHC 33.3 g/dL 08/17/2018 Hematocrit RDW-CV 12.9 % 08/17/2018 Hematocrit PLATEL ET COUNT 313 thou/uL 08/17/2018 Culture Mrsa 569649 MRSA CULTURE SEE NOTES 06/21/2018 Comp. Metabolic Panel (14) 43849 GLUCOSE 101 mg/dL 06/18/2018 Comp. Metabolic Panel (14) 93519 BUN 18 mg/dL 06/18/2018 Comp. Metabolic Panel (14) 47223 CREATININE 0.99 mg/dL 06/18/2018 Comp. Metabolic Panel (14) 02073 SODIUM 141 mmol/L 06/18/2018 Comp. Metabolic Panel (14) 03579 POTASSIUM 4.3 mmol/L 06/18/2018 Comp. Metabolic Panel (14) 54160 CHLORIDE 103 mmol/L 06/18/2018 Comp. Metabolic Panel (14) 09857 CARBON DIOXIDE 23 mmol/L 06/18/2018 Comp. Metabolic Panel (14) 65318 CALCIUM 9.8 mg/dL 06/18/2018 Comp. Metabolic Panel (14) 12679 TOTAL PROTEIN 7.1 g/dL 06/18/2018 Comp. Metabolic Panel (14) 96203 ALBUMIN 5.2 g/dL 06/18/2018 Comp. Metabolic Panel (14) 00244 ALKALINE PHOSPHATASE 65 U/L 06/18/2018 Comp. Metabolic Panel (14) 69195 TOTAL BILIRUBIN 0.6 mg/dL 06/18/2018 Comp. Metabolic Panel (14) 47583 SGOT (AST) 21 U/L 06/18/2018 Comp. Metabolic Panel (14) 85273 SGPT (ALT) 24 U/L 06/18/2018 Comp. Metabolic Panel (14) 81188 eGFR (mL/min/1.73m2) 115 06/18/2018 Comp. Metabolic Panel (14) 47739 INTERPRETATION 06/18/2018 Cbc With Differential/Platelet 23867 WBC 4.55 thou/uL 8 Cbc With Differential/Platelet 64983 RBC 5.13 mil/uL 06/18/2018 Cbc With Differential/Platelet 33734 HEMOGLOBIN 14.4 g/dL 06/18/2018 Cbc With Differential/Platelet 53626 HEMATOCRIT 44.1 % 06/18/2018 Cbc With Differential/Platelet 38777 MCV 85.9 fL 06/18/2018 Cbc With Differential/Platelet 00229 MCH 28.1 pg 06/18/2018 Cbc With Differential/Platelet 92905 MCHC 32.7 g/dL 06/18/2018 Cbc With Differential/Platelet 34556 RDW-CV 13.4 % 06/18/2018 Cbc With Differential/Platelet 21710 PLATELET COUNT 287 thou/uL 06/18/2018 Cbc With Differential/Platelet 45536 NEUTROPHIL % 53.9 % 06/18/2018 Cbc With Differential/Platelet 98968 LYMPHOCYTE % 36.1 % 06/18/2018 Cbc With Differential/Platelet 31077 MONOCYTE % 7.4 % 06/18/2018 Cbc With Differential/Platelet 41803 EOS % 1.9 % 06/18/2018 Cbc With Differential/Platelet 52404 BASO % 0.8 % 06/18/2018 Cbc With Differential/Platelet 80096 NEUTROPHIL ABS # 2.45 thou/uL 06/18/2018 Cbc With Differential/Platelet 03191 LYMPH ABS # 1.64 thou/uL 06/18/2018 Cbc With Differential/Platelet 34830 MONOCYTE ABS # 0.34 thou/uL 06/18/2018 Cbc With Differential/Platelet 19255 EOS ABS # 0.09 thou/uL 8 Cbc With Differential/Platelet 78921 BASO ABS # 0.04 thou/uL 06/18/2018 Review [...] Procedure Codes Date THER/PROPH/DIAG INJ SC/IM CPT-4: 08685 12/16/2018 THER/PROPH/DIAG INJ SC/IM CPT-4: 00743 11/15/2018 THER/PROPH/DIAG INJ SC/IM CPT-4: 49884 09/28/2018 THER/PROPH/DIAG INJ SC/IM CPT-4: 07559 09/16/2018 THER/PROPH/DIAG INJ SC/IM CPT-4: 63975 09/02/2018 THER/PROPH/DIAG INJ SC/IM CPT-4: 28203 08/19/2018 IMMUNIZATION ADMIN CPT- 4: 34952 08/02/2018 FLU VAC NO PRSV 4 VA L 3 YRS+ CPT-4: 51249 08/02/2018 THER/PROPH/DIAG INJ SC/IM CPT-4: 34133 07/15/2018 THER/PROPH/DIAG INJ SC/IM CPT-4: 62170 06/17/2018 THER/PROPH/DIAG INJ SC/IM CPT-4: 53417 05/21/2018 THER/PROPH/DIAG INJ SC/IM CPT-4: 01953 08/03/2015 ROCEPHIN, PER 250 MG CPT-4: J0696 08/03/2015 Vital Signs Date Vital 12/20/2018 Blood Pressure 1: 124/76 Code: 8480-6 BMI: 35.4 Code: 95351-3 Heart Rate 1: 79 bpm Height: 5'7" SpO2: 99% Weight: 226 lbs 12/16/2018 Blood Pressure 1: 160/90 Code: 8480-6 BMI: 35.4 Code: 88443-5 Heart Rate 1: 90 bpm Height: 5'7" SpO2: 95% Weight: 226 lbs 11/01/2018 Blood Pressure 1: 146/82 Code: 8480-6 BMI: 36.0 Code: 45308-7 Heart Rate 1: 87 bpm Height: 5'7" SpO2: 98% Weight: 230 lbs 09/24/2018 Blood Pressure 1: 140/82 Code: 8480-6 BMI: 36.0 Code: 02857-8 Heart Rate 1: 86 bpm Height: 5'7" SpO2: 98% Temperature: 37.1 (C ) / 98.7 (F) Weight: 230 lbs 08/16/2018 Blood Pressure 1: 148/82 Code: 8480-6 Blood Pressure 2: 157/92 Code: 8480-6 BMI: 35.9 Code: 93910-9 Heart Rate 1: 72 bpm Height: 5'7" SpO2: 96% Weight: 229 lbs 08/02/2018 Blood Pressure 1: 142/86 Code: 8480-6 BMI: 35.2 Code: 76114-2 Heart Rate 1: 101 bpm Height: 5'7" SpO2: 97% Weight: 225 lbs 05/31/2018 Blood Pressure 1: 134/82 Code: 8480-6 BMI: 35.4 Code: 68788-6 Heart Rate 1: 91 bpm Height: 5'7" SpO2: 96% Weight: 226 lbs 05/20/2018 Blood Pressure 1: 160/100 Code: 8480-6 BMI: 35.2 Code: 31658-5 Heart Rate 1: 89 bpm Height: 5'7" SpO2: 98% Weight: 225 lbs 05/10/2018 Blood Pressure 1: 124/70 Code: 8480-6 BMI: 35.1 Code: 20179-8 Heart Rate 1: 93 bpm Height: 5'7" SpO2: 99% Weight: 224 lbs 01/15/2018 Blood Pressure 1: 142/92 Code: 8480-6 BMI: 36.3 Code: 33867-2 Heart Rate 1: 77 bpm Height: 5'7" SpO2: 98% Weight: 232 lbs 12/15/2017 Blood Pressure 1: 156/98 Code: 8480-6 BMI: 36.2 Code: 54865-8 Heart Rate 1: 87 bpm Height: 5'7" [...] eye 01/15/2018 None vision change Quality ac [place] 01/15/2018 None vision change Quality lo ss [...] vision 12/15/2017 None vision change Quality ac [place] 12/15/2017 None vision change Onset and Resolution [...] in right arm[ICD10: M79.601] Sonia Gonzalez MD, [facility] CPT-4: 94150 12/20/2018 ([id number]) [id number] EST. 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 PATIENT, LEVEL III Diagnosis: Acute upper respiratory infection, unspecified[ICD10: J06.9] Diagnosis: Other allergic rhinitis[ICD10: J30.89] [facility] CPT-4: 92316 09/24/2018 ([id number]) [id number] EST. 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 P ATIENT, LEVEL IV Diagnosis: Essential (primary) hypertension[ICD10: I10] Diagnosis: Cervicalgia[ICD10: M54.2] Radha Gonzalez MD, [facility] CPT-4: 55916 05/31/2018 ([id number]) 93956 EST. 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 PATIENT, LEVEL III Diagnosis: Ischemic optic neuropathy, left eye[ICD10: H47.012] Diagnosis: Essential (primary) hypertension[ICD10: I10] Diagnosis: Decreased libido[ICD10: R68.82] Diagnosis: Other malaise[ICD10: R53.81] Diagnosis: Other fatigue[ICD10: R53.83] Diagnosis: Cervicalgia[ICD10: M54.2] Diagnosis: Pain in thoracic spine[ICD10: M54.6] Sonia Gonzalez MD, [facility] CPT- 4: 17221 05/10/2018 ([id number]) [id number] EST. 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] Diagnosis: Obstructive sleep apnea (adult) (pediatric)[ICD10: G47.33] Radha Gonzalez MD, [facility] CPT-4: 28711 01/15/2018 ([id number]) PREV VISIT N EW AGE 40-64 Diagnosis: Encounter for general adult medical examination with abnormal findings[ICD10: Z00.01] [facility] CPT-4: 98148 12/15/2017 ([id number]) OFFICE/OUTPA TIENT VISIT NEW Diagnosis: Laceration of thumb[ICD9: 883.0] [facility] CPT-4: 16904 08/03/2015 Plan of Care Planned Activity Notes C odes Status Date Patient Education: Patient Medication Summary Completed 12/21/2018 Care Plan: %Hba1C add to blood from 12/17 LOINC : 17066-2 Pending 12/21/2018 Visit Plan: Right arm pain - dayna deformity noted - will refer to ortho - The pt is to use prn antiinflammatories to manage acute pain. The patient is to call the office if the pain is worsening or does not improve. 12/20/2018 Appointment: Sonia Potter WPtel: [facility] (15 min) Moderate 12/20/2018 [...] testosterone. 12/16/2018 App[facility]ment: [phone] [facility] (15 min) Moderate 12/16/2018 Patient Education: [...] needed. 11/01/2018 Appointment: Radha Gonzalez WPtel: [phone] [facility] (15 min) Moderate 11/01/2018 Patient Education: [...] Multiple symptoms - referral to [facility] - appt in September 30, 2018. 08/16/2018 Appointment: Rad[facility] Gonzalez [phone] [facility] (15 min) Moderate 08/16/2018 Patient Education: [...] Multiple symptoms - referral to [facility] - rashes, hypogonadism, optic neuritis - all points to possible autoimmune syndrome. Spinal stenosis - of thoracic region - pt to talk to Dr. Dunaway about referral to a different specialist for his mid- back. Hypogonadism - continue with testosterone. Flu shot given today in clinic. 08/02/2018 Appointment: Radha Gonzalez [facility] [phone] [facility] [place] (15 min) Moderate 08/02/2018 Patient Education: Patient Medication Summary Completed 08/02/2018 Care Plan: Referral Order SNOMED-CT : 188587777 Pending 08/02/2018 Appointment: Injection 07/15/2018 Patient Education: [...] - [facility]. I have also recommended a Referral to Dr. Dunaway. I have called and talked to Dr. Dunaway - he looked at the pt's imaging and agrees that getting the pt in to be seen soon would be a preferred option. 05/31/2018 Appointment: Radha Gonzalez [facility]el[facility] [phone] [facility] [place] (15 min) Moderate 05/31/2018 Patient Education: Patient Medication Summary Completed 05/31/2018 Care Plan: Referral Order SNOMED-CT : 072283853 Pending 05/31/2018 Care Plan: Referral Order SNOMED-CT : 404043438 Pending 05/31/2018 Appointment: Injection 05/21/2018 Patient Education: Patient Medication Summary Completed 05/21/2018 Care Plan: Referral Order SNOMED-CT : 282250403 Pending 05/21/2018 Visit Plan: Cervical and thoracic s tenosis with spinal cord compression -refer for appt with Dr Marr -rx for hydrocodone for pain-start gabapentin at bedtime Soft tissue lesion-left chest-schedule CTfor further evaluation HTN-elevated today-hold adderall-monitor blood pressure 05/20/2018 Appointment: Hannah Simons WPtel: [phone] [place] (15 min) Moderate 05/20/2018 Patient Education: [...] order this. 05/10/2018 Appointment: Sonia Potter WPtel: [facility] [place] (15 min) Moderate 05/10/2018 Patient Education: Patient Medication Summary Completed 05/10/2018 Visit Plan: Sleep apnea - rx for cp ap - actually autopap was recommended and pt given rx today. HTN - referral to dr. kapoor - pt needs stress testing. 01/15/2018 Appointment: Radha Gonzalez WPtel: [facility] [place] (15 min) Moderate 01/15/2018 Patient Education: Patient Medication Summary Completed 01/15/2018 Care Plan: Referral Order SNOMED-CT : 822842206 Pending 01/15/2018 Visit Plan: Well Adult - [...] one month. 12/15/2017 Appointment: Radha Gonzalez WPtel: [address] [place], [place] [phone] New Patient 12/15/2017 Patient Education: Patient Medication Summary Completed 12/15/2017 Care Plan: CHEST X-RAY 2VW FRONTAL&LATL LOINC : 53335-6 Pending 12/15/2017 Appointment: Radha Gonzalez WPtel: [facility] (15 min) Moderate 12/08/2017 Appointment: (S) New Patient 08/13/2015 Visit Plan: steri strip placed on t humb of right hand - antibiotic shot given to patient and rx for keflex 500mg qid x 10 days given to the patient to fill prior to his trip to [place] 08/03/2015 Patient Education: Patient Medication Summary Completed 08/03/2015 Referral: External, Ordering Provider 08/03 Referral info faxed to [place]. Patient informed to be expecting a call from them with appt info Appointment Requested Referral: External, Ordering Provider Referral Appointment Requested Referral: External, Ordering Provider I called today; they will call him to schedule. Completed Referral: Armani Dunaway Referral Appointment Requested Referral: Mayte Kapoor Referral Appointment Requested Referral[facility] [phone] [facility] [place] Referral Appointment Requested Referral: External, [...] Multiple symptoms - referral to [facility] - rashes, hypogonadism, optic neuritis - [...] Multiple symptoms - referral to [facility] - appt in September 30, 2018. . steri strip placed on thumb of right hand - antibiotic shot given to patient and rx for keflex 500mg qid x 10 days given to the patient to fill prior to his trip to [place] will refill meds for 90 days Will [...]
--- OUTSIDE RECORDS SUMMARY | 2020-04-28 00:51 | XMS REPORT | CCD ---
Author Author Nilton Gonzalez Organization [facility] Address [address] [place] [address] Phone Care Team Providers Care Director [employer] Name Role Phone PP Unavailable CCM Unavailable Summary Purpose Interface Exchange Insurance Providers Payer name Policy type / Coverage type Covered constitution party ID Effective Begin Date Effective End Date [employer] [id number] 2018 Unknown Family history Brother Diagnosis Age At Onset Alcoholism Unknown Father Diagnosis Age At Onset Hypercholesterolemia Unknown Social History Social History Element Codes Description Effective Dates Marital status Unknown S chanda 12/15/2017 Number of children Unknown 1 12/15/2017 Employment Unknown Curre ntly employed [employer] 12/15/[address]: 617370622 Never smoker 12/15/[address]: 846026 Currently drinks alcohol <1 per week 12/15/2017 Has the patient ever used illegal drugs? Unknown Has never used illegal drugs 018 Living arrangements Unknown House 08/04/2015 Allergies, Adverse Reactions, Alerts Substance Reaction Codes Entered Date Inactivated Date Status * NO KNOWN DRUG ARNOLDO RGIES Unknown 08/03/2015 No Inactive Date Active Past Medical History Illness Codes Condition Status Onset Date Resolved Date Essential (primary) hypertension ICD-9: 401.1 ICD-10: I10 [...] Condition Codes Effectiv e Dates Condition Status Essential (primary) hypertension ICD-9: 401.1 ICD-10: I10 [...] 724.1 ICD-10: M54.6 05/10/2018 Active Encounter for [facility] adult medical examination with abnormal findings ICD-9: V70.0 ICD-10: Z00.01 12/15/2017 Active Laceration of thumb ICD- 9: 883.0 08/02/2015 Active Medications Medication Codes Instruc tions Start Date Stop Date Sta tus Fill Instructions testosterone cypiona te 200 mg/mL intramuscular oil RxNorm: 3016032 Milliliter(s) IM 12/16/2018 12/16/2018 In active gabapentin 300 mg ca psule RxNorm: 374846 1 Capsule(s) PO QID 12/16/2018 12/10/2019 Active Voltaren 1 % topical gel RxNorm: 063951 2 Gram(s) APPLY TOPIC ALLY four TIMES A DAY 12/16/2018 01/20/2019 Ac tive trazodone 100 mg tablet RxNorm: 501823 TAKE ONE TABLET BY MOUTH EVERY NIGHT AT BEDTIME 12/07/2018 06/04/2019 Active hydrocodone 5 mg-fanny taminophen 325 mg tablet RxNorm: 035922 1 Tablet(s) PO TID MS N 11/29/2018 No Stop Date Active Adderall 30 mg tablet RxNorm: 765017 2 Tablet(s) PO daily 11/29/2018 12/28/2018 Active clindamycin 1 %-arthur oyl peroxide 5 % topical gel RxNorm: 870022 TOP APPLY TO AFFECTED AREA(S) ON SERNA TWO TIMES A DAY 11/17/2018 No Stop Date Active testosterone cypiona te 200 mg/mL intramuscular oil RxNorm: 6020236 1 Milliliter(s) IM 2 x month 11/17/2018 03/16/2019 Active Zorvolex 35 mg capsule RxNorm: 6162497 1 Capsule(s) PO TID as needed for pain 11/15/2018 05/13/2019 Ac tive ketoconazole 2 % top ical cream RxNorm: 979927 APPLY ONE GRAM TOPICA LLY TWICE A DAY 11/15/2018 11/29/2018 In active testosterone cypiona te 200 mg/mL intramuscular oil RxNorm: 6404696 1 Milliliter(s) IM 11/15/2018 11/14/2018 Inactive hydrocodone 5 mg-fanny taminophen 325 mg tablet RxNorm: 374397 1 Tablet(s) PO TID MS N 11/02/2018 11/28/2018 In active Singulair 10 mg tablet RxNorm: 600273 1 Tablet(s) PO daily 11/01/2018 07/28/2019 Active testosterone cypiona te 200 mg/mL intramuscular oil RxNorm: 3835587 1 Milliliter(s) IM 2 x month 11/01/2018 11/16/2018 Inactive Adderall 30 mg tablet RxNorm: 994192 2 Tablet(s) PO daily 10/29/2018 11/27/2018 Inactive gabapentin 300 mg ca psule RxNorm: 844718 1 Capsule(s) PO BID m ay take TID 10/19/2018 12/15/2018 In active gabapentin 300 mg ca psule RxNorm: 163078 1 Capsule(s) PO BID m ay take TID 10/19/2018 10/18/2018 In active alprazolam 1 mg tablet RxNorm: 845146 1 Tablet(s) PO TID as needed 10/15/2018 12/13/2018 Inactive testosterone cypiona te 200 mg/mL intramuscular oil RxNorm: 630161 Milliliter(s) IM 09/28/2018 09/28/2018 In active pravastatin 40 mg ta blet RxNorm: 005084 TAKE ONE TABLET BY MO UTH EVERY NIGHT AT BEDTIME 09/27/2018 09/21/2019 Active Tamiflu 75 mg capsule RxNorm: 297009 1 Capsule(s) PO BID 09/24/2018 09/28/2018 Inactive Adderall 30 mg tablet RxNorm: 565249 2 Tablet(s) PO daily 09/20/2018 10/19/2018 Inactive hydrocodone 5 mg-fanny taminophen 325 mg tablet RxNorm: 039745 1 Tablet(s) PO TID MS N 09/20/2018 11/01/2018 In active testosterone cypiona te 200 mg/mL intramuscular oil RxNorm: 011081 Milliliter(s) IM 09/16/2018 09/16/2018 In active testosterone cypiona te 200 mg/mL intramuscular oil RxNorm: 722071 1 Milliliter(s) IM 09/02/2018 09/02/2018 Inactive testosterone cypiona te 200 mg/mL intramuscular oil RxNorm: 601442 Milliliter(s) IM 08/19/2018 08/19/2018 In active tramadol 50 mg tablet RxNorm: 015438 1-2 Tablet(s) PO Q6 as needed 08/18/2018 No Stop Date Active Adderall 30 mg tablet RxNorm: 683543 2 Tablet(s) PO daily 08/18/2018 09/16/2018 Inactive Dexilant 60 mg capsu le, delayed release RxNorm: 751210 1 Capsule(s) PO BID 08/17/2018 08/11/2019 Ac tive atenolol 50 mg tablet RxNorm: 689986 1 Tablet(s) PO BID 08/17/2018 08/11/2019 Active ketoconazole 2 % top ical cream RxNorm: 683492 1 Gram(s) TOP BID 08/17/2018 08/26/2018 Inactive Zorvolex 35 mg capsule RxNorm: 6186895 1 Capsule(s) PO TID as needed for pain 08/17/2018 08/16/2018 In active Zorvolex 35 mg capsule RxNorm: 7348985 1 Capsule(s) PO TID as needed for pain 08/17/2018 11/14/2018 In active ketoconazole 2 % top ical cream RxNorm: 723062 1 Gram(s) TOP BID 08/02/2018 08/11/2018 Inactive hydrocortisone 2.5 % topical cream RxNorm: 293113 1 Application TOP BID 07/21/2018 No Stop Date Active Adderall 30 mg tablet RxNorm: 455230 2 Tablet(s) PO daily 07/20/2018 08/17/2018 Inactive testosterone cypiona te 200 mg/mL intramuscular oil RxNorm: 966029 Milliliter(s) IM 07/15/2018 07/15/2018 In active alprazolam 1 mg tablet RxNorm: 423862 1 Tablet(s) PO TID as needed 07/12/2018 09/07/2018 Inactive hydrocodone 5 mg-fanny taminophen 325 mg tablet RxNorm: 043945 1 Tablet(s) PO TID MS N 06/30/2018 09/19/2018 In active pravastatin 40 mg ta blet RxNorm: 510727 1 Tablet(s) PO QHS 06/18/2018 09/15/2018 Inactive Adderall 30 mg tablet RxNorm: 616542 2 Tablet(s) PO daily 06/18/2018 07/17/2018 Inactive testosterone cypiona te 200 mg/mL intramuscular oil RxNorm: 811547 Milliliter(s) IM 06/17/2018 06/17/2018 In active Voltaren 1 % topical gel RxNorm: 280230 APPLY TOPICALLY TWO T IMES A DAY 06/16/2018 07/21/2018 In active Vitamin D2 50,000 un it capsule RxNorm: 6226327 1 Capsule(s) PO QW 05/21/2018 No Stop Date Active Adderall 30 mg tablet RxNorm: 972852 2 Tablet(s) PO daily 05/21/2018 06/17/2018 Inactive testosterone cypiona te 200 mg/mL intramuscular oil RxNorm: 064549 Milliliter(s) IM 05/21/2018 05/21/2018 In active testosterone cypiona te 200 mg/mL intramuscular oil RxNorm: 9185408 1 Milliliter(s) IM monthly 05/20/2018 09/16/2018 Inactive testosterone cypiona te 200 mg/mL intramuscular oil RxNorm: 088513 1 Milliliter(s) IM monthly 05/20/2018 05/19/2018 Inactive hydrocodone 5 mg-fanny taminophen 325 mg tablet RxNorm: 000105 1 Tablet(s) PO TID MS N 05/20/2018 06/29/2018 In active Vitamin D2 50,000 un it capsule RxNorm: 1179790 1 Capsule(s) PO QW 05/18/2018 05/20/2018 Inactive triamcinolone aceton destin 0.025 % topical cream RxNorm: 0696936 1 Application TOP BI D 05/13/2018 No Stop Date Active Dexilant 60 mg capsu le, delayed release RxNorm: 804672 1 Capsule(s) PO BID 05/13/2018 08/16/2018 In active Zorvolex 35 mg capsule RxNorm: 5721279 1 Capsule(s) PO TID as needed for pain 05/12/2018 08/09/2018 In active Voltaren 1 % topical gel RxNorm: 361082 1 Application TOP BID 05/12/2018 06/15/2018 Inactive acyclovir 400 mg tablet RxNorm: 076516 1 Tablet(s) PO TID as needed take at ons et of symptoms of cold sores x 5 days 05/10/2018 No Stop Date Active paroxetine 20 mg tablet RxNorm: 7380386 2 Tablet(s) PO QHS 05/10/2018 10/31/2019 Active ProAir HFA 90 mcg/ac tuation aerosol inhaler RxNorm: 177308 1 Puff(s) INH QID as needed 05/10/2018 No Stop Date Active baclofen 20 mg tablet RxNorm: 294199 1 Tablet(s) PO TID as needed muscle spas ms 05/10/2018 06/08/2018 In active Singulair 10 mg tablet RxNorm: 201722 1 Tablet(s) PO daily 05/10/2018 08/07/2018 Inactive atenolol 50 mg tablet RxNorm: 077031 1 Tablet(s) PO BID 05/10/2018 08/07/2018 Inactive triamcinolone aceton destin 0.025 % topical cream RxNorm: 9110723 1 Application TOP BI D 05/10/2018 05/12/2018 In active tramadol 50 mg tablet RxNorm: 931262 1 Tablet(s) PO TID as needed 05/10/2018 05/19/2018 Inactive Dexilant 60 mg capsu le, delayed release RxNorm: 766051 1 Capsule(s) PO daily 05/10/2018 05/12/2018 In active alprazolam 1 mg tablet RxNorm: 515678 1 Tablet(s) PO TID as needed 05/10/2018 08/06/2018 Inactive trazodone 100 mg tablet RxNorm: 066144 1 Tablet(s) PO QHS 05/10/2018 11/05/2018 Inactive cyclobenzaprine 10 m g tablet RxNorm: 826555 1 Tablet(s) PO TID as needed muscle spasms 05/07/2018 07/12/2018 Inactive trazodone 100 mg tablet RxNorm: 324066 1 Tablet(s) PO QHS 05/07/2018 05/09/2018 Inactive Adderall 30 mg tablet RxNorm: 093628 2 Tablet(s) PO daily 04/19/2018 05/18/2018 Inactive alprazolam 1 mg tablet RxNorm: 048298 1 Tablet(s) PO BID 04/19/2018 05/09/2018 Inactive Adderall 30 mg tablet RxNorm: 315586 2 Tablet(s) PO daily 03/26/2018 04/18/2018 Inactive paroxetine 20 mg tablet RxNorm: 9678411 2 Tablet(s) PO QHS 03/15/2018 05/09/2018 Inactive Adderall 30 mg tablet RxNorm: 326050 2 Tablet(s) PO daily 02/25/2018 03/25/2018 Inactive cyclobenzaprine 10 m g tablet RxNorm: 374599 1 Tablet(s) PO TID as needed muscle spasms 02/22/2018 05/06/2018 Inactive tramadol 50 mg tablet RxNorm: 272228 1 Tablet(s) PO TID as needed 02/22/2018 03/07/2018 Inactive tramadol 50 mg tablet RxNorm: 559356 1 Tablet(s) PO TID as needed 02/22/2018 02/21/2018 Inactive trazodone 100 mg tablet RxNorm: 780256 1 Tablet(s) PO QHS 02/03/2018 05/03/2018 Inactive trazodone 100 mg tablet RxNorm: 440195 1 Tablet(s) PO QHS 02/03/2018 02/02/2018 Inactive Adderall 30 mg tablet RxNorm: 476814 2 Tablet(s) PO daily 01/27/2018 02/18/2018 Inactive acyclovir 400 mg tablet RxNorm: 797906 1 Tablet(s) PO TID as needed take at ons et of symptoms of cold sores x 5 days 01/15/2018 05/09/2018 Inactive Bactrim DS 800 mg-16 0 mg tablet RxNorm: 871598 1 Tablet(s) PO BID 01/11/2018 01/17/2018 Inactive Bactrim DS 800 mg-16 0 mg tablet RxNorm: 208834 1 Tablet(s) PO BID 01/11/2018 01/10/2018 Inactive Dexilant 60 mg capsu le, delayed release RxNorm: 477160 1 Capsule(s) PO daily 12/23/2017 05/09/2018 In active Dexilant 60 mg capsu le, delayed release RxNorm: 409512 1 Capsule(s) PO daily 12/23/2017 12/22/2017 In active atenolol 50 mg tablet RxNorm: 756128 1 Tablet(s) PO BID 12/15/2017 05/09/2018 Inactive alprazolam 1 mg tablet RxNorm: 244522 1-1.5 Tablet(s) PO daily 12/15/2017 04/18/2018 Inactive ceftriaxone 500 mg s olution for injection RxNorm: 0619159 Inj 08/03/2015 08/03/2015 Inactive paroxetine 20 mg tablet RxNorm: 7910781 2 Tablet(s) PO QHS 08/01/2015 10/29/2015 Inactive pravastatin 40 mg ta blet RxNorm: 075200 1/2 Tablet(s) PO QHS 08/01/2015 12/14/2017 Inactive Trazadone 100mg 100 mg RxNorm: 1 PO daily 08/01/2015 11/27/2015 Inactive Trazadone 100mg 100 mg RxNorm: 1 PO daily 08/01/2015 05/04/2018 Inactive atenolol 50 mg tablet RxNorm: 912731 1 Tablet(s) PO daily 08/01/2015 10/29/2015 Inactive ibuprofen 800 mg tablet RxNorm: 520776 1 Tablet(s) PO BID -TID No Start Date Active Zyrtec 10 mg tablet RxNorm: 6739670 1 Tablet(s) PO daily No Start Date Active pravastatin 40 mg ta blet RxNorm: 622540 1/2 Tablet(s) PO QHS No Start Date 07/31/2015 Inactive Benadryl Allergy 25 mg tablet RxNorm: 2445506 1 Tablet(s) PO daily No Start Date 07/19/2018 Inactive Adderall 30 mg tablet RxNorm: 617403 2 Tablet(s) PO daily No Start Date 01/26/2018 Inactive Aspirin Low Dose 81 mg tablet,delayed release RxNorm: 318102 1 Tablet(s) PO BID No Start Date 07/19/2018 Inactive Singulair 10 mg tablet RxNorm: 411307 1 Tablet(s) PO daily No Start Date 05/09/2018 Inactive cyclobenzaprine 10 m g tablet RxNorm: 068647 1 Tablet(s) PO TID as needed muscle spasms No Start Date 02/21/2018 Inactive Trazadone 100mg 100 mg RxNorm: 1 PO daily No Start Date 07/31/2015 Inactive clindamycin 1 %-arthur oyl peroxide 5 % topical gel RxNorm: 843334 TOP APPLY TO AFFECTED AREA(S) ON SERNA TWO TIMES A DAY No Start Date 11/16/2018 Inactive hydrocortisone 2.5 % topical cream RxNorm: 491629 1 Application TOP BID No Start Date 07/20/2018 Inactive alprazolam 1 mg tablet RxNorm: 694029 2 Tablet(s) PO daily No Start Date 12/14/2017 Inactive tramadol 50 mg tablet RxNorm: 678558 1-2 Tablet(s) PO Q6 as needed No Start Date 08/17/2018 Inactive Vitamin D2 50,000 un it capsule RxNorm: 6506955 1 Capsule(s) PO QW No Start Date 05/17/2018 Inactive pantoprazole 40 mg t ablet,delayed release RxNorm: 292877 1 Tablet(s) PO BID No Start Date 12/22/2017 Inactive atenolol 50 mg tablet RxNorm: 709735 1 Tablet(s) PO daily No Start Date 07/31/2015 Inactive paroxetine 20 mg tablet RxNorm: 732312 2 Tablet(s) PO QHS No Start Date 07/31/2015 Inactive Medication Administered Medication Codes Instruc tions Start Date Status testosterone cypionate 200 mg/mL intramuscular oil RxNorm: 2145665 Milliliter 12/16/2018 Active testosterone cypionate 200 mg/mL intramuscular oil RxNorm: 1716036 1Milliliter 11/15/2018 No longer Active testosterone cypionate 200 mg/mL intramuscular oil RxNorm: 087799 Milliliter 09/28/2018 No longer Active testosterone cypionate 200 mg/mL intramuscular oil RxNorm: 358129 Milliliter 09/16/2018 No longer Active testosterone cypionate 200 mg/mL intramuscular oil RxNorm: 676324 1Milliliter 09/02/2018 No longer Active testosterone cypionate 200 mg/mL intramuscular oil RxNorm: 238803 Milliliter 08/19/2018 No longer Active testosterone cypionate 200 mg/mL intramuscular oil RxNorm: 167469 Milliliter 07/15/2018 No longer Active testosterone cypionate 200 mg/mL intramuscular oil RxNorm: 537511 Milliliter 06/17/2018 No longer Active testosterone cypionate 200 mg/mL intramuscular oil RxNorm: 531680 Milliliter 05/21/2018 No longer Active ceftriaxone 500 mg solution for injection RxNorm: 8167989 08/03/2015 No longer A ctive Immunizations Vaccine Codes Date Status Influenza CVX: 141 08/02 completed Tetanus, Diptheria, Pertussis CVX: 113 05/16/2011 completed Tetanus/Diptheria CVX: 113 05/16/2011 completed Assessments Condition Codes Effectiv e Dates Obstructive sleep apnea (adult) (pediatric) ICD-10: G47.33 [...] Visit Reason For Visit Effective Dates Notes hypertension 12/16/2018 hypertension 11/01/2018 sinus congestion 09/24/2018 back pain 08/16/2018 back pain 08/02/2018 back pain 05/31/2018 back pain 05/20/2018 medication follow up 05/10/2018 vision change 01/15/2018 vision change 12/15/2017 Results Observation Observation Code Item Item Code Result Date Testosterone Serum 960689 TESTOSTERONE 44.1 ng/dL 08/18/2018 Hemoglobin 590064 WBC 7.62 thou/uL 08/17/2018 Hemoglobin 703580 RBC 5.23 mil/uL 08/17/2018 Hemoglobin 235738 HEMOGL OBIN 15.0 g/dL 08/17/2018 Hemoglobin 610522 HEMATO CRIT 45.0 % 08/17/2018 Hemoglobin 086103 MCV 86.0 fL 08/17/2018 Hemoglobin 627304 MCH 28.7 pg 08/17/2018 Hemoglobin 849017 MCHC 33.3 g/dL 08/17/2018 Hemoglobin 119741 RDW-CV 12.9 % 08/17/2018 Hemoglobin 477364 PLATEL ET COUNT 313 thou/uL 08/17/2018 Hematocrit 483962 WBC 7.62 thou/uL 08/17/2018 Hematocrit 389960 RBC 5.23 mil/uL 08/17/2018 Hematocrit 061102 HEMOGL OBIN 15.0 g/dL 08/17/2018 Hematocrit 423350 HEMATO CRIT 45.0 % 08/17/2018 Hematocrit MCV 86.0 fL 08/17/2018 Hematocrit MCH 28.7 pg 08/17/2018 Hematocrit MCHC 33.3 g/dL 08/17/2018 Hematocrit RDW-CV 12.9 % 08/17/2018 Hematocrit PLATEL ET COUNT 313 thou/uL 08/17/2018 Culture Mrsa 560617 MRSA CULTURE SEE NOTES 06/21/2018 Comp. Metabolic Panel (14) 47179 GLUCOSE 101 mg/dL 06/18/2018 Comp. Metabolic Panel (14) 74308 BUN 18 mg/dL 06/18/2018 Comp. Metabolic Panel (14) 52309 CREATININE 0.99 mg/dL 06/18/2018 Comp. Metabolic Panel (14) 55151 SODIUM 141 mmol/L 06/18/2018 Comp. Metabolic Panel (14) 85411 POTASSIUM 4.3 mmol/L 06/18/2018 Comp. Metabolic Panel (14) 47178 CHLORIDE 103 mmol/L 06/18/2018 Comp. Metabolic Panel (14) 05524 CARBON DIOXIDE 23 mmol/L 06/18/2018 Comp. Metabolic Panel (14) 12396 CALCIUM 9.8 mg/dL 06/18/2018 Comp. Metabolic Panel (14) 86652 TOTAL PROTEIN 7.1 g/dL 06/18/2018 Comp. Metabolic Panel (14) 49914 ALBUMIN 5.2 g/dL 06/18/2018 Comp. Metabolic Panel (14) 73616 ALKALINE PHOSPHATASE 65 U/L 06/18/2018 Comp. Metabolic Panel (14) 51566 TOTAL BILIRUBIN 0.6 mg/dL 06/18/2018 Comp. Metabolic Panel (14) 20096 SGOT (AST) 21 U/L 06/18/2018 Comp. Metabolic Panel (14) 37528 SGPT (ALT) 24 U/L 06/18/2018 Comp. Metabolic Panel (14) 24339 eGFR (mL/min/1.73m2) 115 06/18/2018 Comp. Metabolic Panel (14) 11542 INTERPRETATION 06/18/2018 Cbc With Differential/Platelet 95235 WBC 4.55 thou/uL 8 Cbc With Differential/Platelet 05450 RBC 5.13 mil/uL 06/18/2018 Cbc With Differential/Platelet 13197 HEMOGLOBIN 14.4 g/dL 06/18/2018 Cbc With Differential/Platelet 59079 HEMATOCRIT 44.1 % 06/18/2018 Cbc With Differential/Platelet 72302 MCV 85.9 fL 06/18/2018 Cbc With Differential/Platelet 09573 MCH 28.1 pg 06/18/2018 Cbc With Differential/Platelet 54050 MCHC 32.7 g/dL 06/18/2018 Cbc With Differential/Platelet 43382 RDW-CV 13.4 % 06/18/2018 Cbc With Differential/Platelet 11252 PLATELET COUNT 287 thou/uL 06/18/2018 Cbc With Differential/Platelet 56858 NEUTROPHIL % 53.9 % 06/18/2018 Cbc With Differential/Platelet 75847 LYMPHOCYTE % 36.1 % 06/18/2018 Cbc With Differential/Platelet 18381 MONOCYTE % 7.4 % 06/18/2018 Cbc With Differential/Platelet 99495 EOS % 1.9 % 06/18/2018 Cbc With Differential/Platelet 60230 BASO % 0.8 % 06/18/2018 Cbc With Differential/Platelet 60139 NEUTROPHIL ABS # 2.45 thou/uL 06/18/2018 Cbc With Differential/Platelet 78021 LYMPH ABS # 1.64 thou/uL 06/18/2018 Cbc With Differential/Platelet 30554 MONOCYTE ABS # 0.34 thou/uL 06/18/2018 Cbc With Differential/Platelet 23850 EOS ABS # 0.09 thou/uL 8 Cbc With Differential/Platelet 21404 BASO ABS # 0.04 thou/uL 06/18/2018 Review of Systems System Result Effective Dates Constitutional recent illness 12/16/2018 Constitutional No chills [...] Procedure Codes Date THER/PROPH/DIAG INJ SC/IM CPT-4: 37648 12/16/2018 THER/PROPH/DIAG INJ SC/IM CPT-4: 71523 11/15/2018 THER/PROPH/DIAG INJ SC/IM CPT-4: 26797 09/28/2018 THER/PROPH/DIAG INJ SC/IM CPT-4: 34434 09/16/2018 THER/PROPH/DIAG INJ SC/IM CPT-4: 43089 09/02/2018 THER/PROPH/DIAG INJ SC/IM CPT-4: 84021 08/19/2018 IMMUNIZATION ADMIN CPT- 4: 57612 08/02/2018 FLU VAC NO PRSV 4 VA L 3 YRS+ CPT-4: 97049 08/02/2018 THER/PROPH/DIAG INJ SC/IM CPT-4: 68787 07/15/2018 THER/PROPH/DIAG INJ SC/IM CPT-4: 44932 06/17/2018 THER/PROPH/DIAG INJ SC/IM CPT-4: 67991 05/21/2018 THER/PROPH/DIAG INJ SC/IM CPT-4: 18407 08/03/2015 ROCEPHIN, PER 250 MG CPT-4: J0696 08/03/2015 Vital Signs Date Vital 12/16/2018 Blood Pressure 1: 160/90 Code: 8480-6 BMI: 35.4 Code: 19744-0 Heart Rate 1: 90 bpm Height: 5'7" SpO2: 95% Weight: 226 lbs 11/01/2018 Blood Pressure 1: 146/82 Code: 8480-6 BMI: 36.0 Code: 65058-4 Heart Rate 1: 87 bpm Height: 5'7" SpO2: 98% Weight: 230 lbs 09/24/2018 Blood Pressure 1: 140/82 Code: 8480-6 BMI: 36.0 Code: 01729-4 Heart Rate 1: 86 bpm Height: 5'7" SpO2: 98% Temperature: 37.1 (C ) / 98.7 (F) Weight: 230 lbs 08/16/2018 Blood Pressure 1: 148/82 Code: 8480-6 Blood Pressure 2: 157/92 Code: 8480-6 BMI: 35.9 Code: 15330-1 Heart Rate 1: 72 bpm Height: 5'7" SpO2: 96% Weight: 229 lbs 08/02/2018 Blood Pressure 1: 142/86 Code: 8480-6 BMI: 35.2 Code: 12887-9 Heart Rate 1: 101 bpm Height: 5'7" SpO2: 97% Weight: 225 lbs 05/31/2018 Blood Pressure 1: 134/82 Code: 8480-6 BMI: 35.4 Code: 76996-0 Heart Rate 1: 91 bpm Height: 5'7" SpO2: 96% Weight: 226 lbs 05/20/2018 Blood Pressure 1: 160/100 Code: 8480-6 BMI: 35.2 Code: 45593-4 Heart Rate 1: 89 bpm Height: 5'7" SpO2: 98% Weight: 225 lbs 05/10/2018 Blood Pressure 1: 124/70 Code: 8480-6 BMI: 35.1 Code: 76230-1 Heart Rate 1: 93 bpm Height: 5'7" SpO2: 99% Weight: 224 lbs 01/15/2018 Blood Pressure 1: 142/92 Code: 8480-6 BMI: 36.3 Code: 00890-3 Heart Rate 1: 77 bpm Height: 5'7" SpO2: 98% Weight: 232 lbs 12/15/2017 Blood Pressure 1: 156/98 Code: 8480-6 BMI: 36.2 Code: 59454-3 Heart Rate 1: 87 bpm Height: 5'7" SpO2: 97% Weight: 231 lbs Functional Status No Functional Status data History of Present Illness Symptom Name Status Resu lt Effective Date Notes Quality primary hypert ension 12/16/2018 None Onset [...] Encounter Performer Loca tion Codes Date ( 38923 EST. 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 PATIENT, LEVEL III Diagnosis: Acute upper respiratory infection, unspecified[ICD10: J06.9] Diagnosis: Other allergic rhinitis[ICD10: J30.89] [facility] CPT-4: 58691 09/24/2018 ([id number]) 57643 EST. 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 P ATIENT, LEVEL IV Diagnosis: Essential (primary) hypertension[ICD10: I10] Diagnosis: Cervicalgia[ICD10: M54.2] Radha Gonzalez MD, [facility] CPT-4: 57953 05/31/2018 ([id number]) 36324 EST. 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 Hypogonadism - continue with testosterone. 12/16/2018 Patient Education: Patient Medication Summary Completed [...] as needed. 11/01/2018 Appointment: Radha Gonzalez WPtel: [address] [place], [place] [phone] (15 min) Moderate 11/01/2018 Patient Education: Patient [...] spray. 09/24/2018 [facility] [phone] [id number] (15 min) Moderate 09/24/2018 Patient [...] at home. Multiple symptoms - referral to [facility] - appt in September 30, 2018. 08/16/2018 App[facility]ment: [facility] [phone] [id number] (15 min) Moderate [...] at home. Multiple symptoms - referral to [facility] - rashes, hypogonadism, optic neuritis - all points to possible autoimmune syndrome. Spinal stenosis - of thoracic region - pt to talk to Dr. Dunaway about referral to a different specialist for his mid- back. Hypogonadism - continue with testosterone. Flu shot given today in clinic. 08/02/2018 Appointment: Rad[facility]el[phone] [id number] [place] (15 min) Moderate 08/02/2018 Patient Education: Patient Medication Summary Completed 08/02/2018 Care Plan: Referral Order SNOMED-CT : 323984263 Pending 08/02/2018 Appointment: Injection 07/15/2018 Patient Education: [...] Cervical spine stenosis - referral to [facility] physical therapy. I have also recommended a Referral to Dr. Dunaway. I have called and talked to Dr. Dunaway - he looked at the pt's imaging and agrees that getting the pt in to be seen soon would be a preferred option. 05/31/2018 Appointment: Radha Gonzalez WPtel: [phone] [facility] [place] (15 min) Moderate 05/31/2018 Patient Education: Patient Medication Summary Completed 05/31/2018 Care Plan: Referral Order SNOMED-CT : 461375256 Pending 05/31/2018 Care Plan: Referral Order SNOMED-CT : 376275713 Pending 05/31/2018 Appointment: Injection 05/21/2018 Patient Education: Patient Medication Summary Completed 05/21/2018 Care Plan: Referral Order SNOMED-CT : [id number] Pending 05/21/2018 Visit Plan: Cervical and thoracic s tenosis with spinal cord compression -refer for appt with Dr Marr -rx for hydrocodone for pain-start gabapentin at bedtime Soft tissue lesion-left chest-schedule CTfor further evaluation HTN-elevated today-hold adderall-monitor blood pressure 05/20/2018 Appointment: Hannah Simons WPtel: [phone] [phone] [place] (15 min) Moderate 05/20/2018 Patient [...] order this. 05/10/2018 Appointment: Sonia Potter WPtel: [facility] (15 min) Moderate 05/10/2018 Patient Education: Patient Medication Summary Completed 05/10/2018 Visit Plan: Sleep apnea - rx for cp ap - actually autopap was recommended and pt given rx today. HTN - referral to dr. kapoor - pt needs stress testing. 01/15/2018 Appointment: Radha Gonzalez WPtel: [phone] (15 min) Moderate 01/15/2018 Patient Education: Patient Medication Summary Completed 01/15/2018 Care Plan: Referral Order SNOMED-CT : [id number] Pending 01/15/2018 Visit Plan: Well Adult - [...] month. 12/15/2017 Appointment: Radha Gonzalez WPtel: [phone] [facility] New Patient 12/15/2017 Patient Education: Patient Medication Summary Completed 12/15/2017 Care Plan: CHEST X-RAY 2VW FRONTAL&LATL LOINC : 26149-5 Pending 12/15/2017 Appointment: LisaRadha [facility]el[facility] [phone] [facility] (15 min) Moderate 12/08/2017 Appointment: (S) New Patient 08/13/2015 Visit Plan: steri strip placed on t humb of right hand - antibiotic shot given to patient and rx for keflex 500mg qid x 10 days given to the patient to fill prior to his trip to [place] 08/03/2015 Patient Education: Patient Medication Summary Completed 08/03/2015 Referral: External, Ordering Provider 08/03 Referral info faxed to [facility]. Patient informed to be expecting a call [...] at home. Multiple symptoms - referral to [facility] - rashes, hypogonadism, optic neuritis - all [...] at home. Multiple symptoms - referral to [facility] - appt in September 30, 2018. . steri strip placed on thumb of right hand - antibiotic shot given to patient and rx for keflex 500mg qid x 10 days given to the patient to fill prior to his trip to [place] will refill meds for 90 days Will [...] Cervical spine stenosis - referral to [facility] physical therapy. I have also recommended a Referral to Dr. Dunaway. I have called and talked to Dr. Dunaway - he looked at the pt's imaging and agrees that getting the pt in to be seen soon would be a preferred option.
--- OUTSIDE RECORDS SUMMARY | 2020-04-28 00:52 | XMS REPORT | CCD ---
Author Author Nilton Gonzalez Organization Radha Gonzalez MD, [facility] Address [address] [place] [address] Phone Care Team Providers Care Travel Guide Name Role Phone PP Unavailable CCM Unavailable Summary Purpose Interface Exchange Insurance Providers Payer name Policy type / Coverage type Covered republican ID Effective Begin Date Effective End Date CORESOURCES Commercial Insurance [id number] 2017 Unknown Family history Brother Diagnosis Age At Onset Alcoholism Unknown Father Diagnosis Age At Onset Hypercholesterolemia Unknown Social History Social History Element Codes Description Effective Dates Marital status Unknown S chanda 12/15/2017 Number of children Unknown 1 12/15/2017 Employment 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 Active 05/20/2018 Unknown Cervicalgia ICD-9: 723.1 ICD-10: M54.2 Active 05/10/2018 Unknown Essential (primary) hypertension ICD-9: 401.1 ICD-10: I10 Active 12/15/2017 Unknown Spinal stenosis, tho racic region ICD-9: [...] ICD-9: 799.81 ICD-10: R68.82 Active 05/10/2018 Unknown Ischemic optic neuro sergey, 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 Active 12/15/2017 Unknown Obstructive sleep ap nura (adult) (pediatric) ICD-9: 327.23 ICD-10: G47.33 Active 01/15/2018 Unknown Other fatigue ICD-9: 780.79 ICD-10: R53.83 Active 05/10/2018 Unknown Other malaise ICD-9: 780.79 ICD-10: R53.81 Active 05/10/2018 Unknown Pain in thoracic spine ICD-9: 724.1 ICD-10: M54.6 Active 05/10/2018 Unknown Encounter for genera l adult medical examination with abnormal findings ICD-9: V70.0 ICD-10: Z00.01 Active 12/15/2017 Unknown Laceration of thumb ICD- 9: 883.0 Active 08/02/2015 Unknown Problems Condition Codes Effectiv e Dates Condition Status 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 05/20/2018 Active Cervicalgia ICD-9: 723.1 ICD-10: M54.2 05/10/2018 Active Essential (primary) hypertension ICD-9: 401.1 ICD-10: I10 12/15/2017 Active Spinal stenosis, tho racic region ICD-9: [...] libido ICD-9: 799.81 ICD-10: R68.82 05/10/2018 Active Ischemic optic neuro sergey, 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 12/15/2017 Active Obstructive sleep ap nura (adult) (pediatric) ICD-9: 327.23 ICD-10: G47.33 01/15/2018 Active Other fatigue ICD-9: 780.79 ICD-10: R53.83 05/10/2018 Active Other malaise ICD-9: 780.79 ICD-10: R53.81 05/10/2018 Active Pain in thoracic spine ICD-9: 724.1 ICD-10: M54.6 05/10/2018 Active Encounter for genera l adult medical examination with abnormal findings ICD-9: V70.0 ICD-10: Z00.01 12/15/2017 Active Laceration of thumb ICD- 9: 883.0 08/02/2015 Active Medications Medication Codes Instruc tions Start Date Stop Date Sta tus Fill Instructions trazodone 100 mg tablet RxNorm: 429463 TAKE ONE TABLET BY MOUTH EVERY NIGHT AT BEDTIME 12/07/2018 06/04/2019 Active hydrocodone 5 mg-fanny taminophen 325 mg tablet RxNorm: 787182 1 Tablet(s) PO TID CT N 11/29/2018 No Stop Date Active Adderall 30 mg tablet RxNorm: 094308 2 Tablet(s) PO daily 11/29/2018 12/28/2018 Active clindamycin 1 %-arthur oyl peroxide 5 % topical gel RxNorm: 496242 TOP APPLY TO AFFECTED AREA(S) ON SERNA TWO TIMES A DAY 11/17/2018 No Stop Date Active testosterone cypiona te 200 mg/mL intramuscular oil RxNorm: 4776226 1 Milliliter(s) IM 2 x month 11/17/2018 03/16/2019 Active Zorvolex 35 mg capsule RxNorm: 0119834 1 Capsule(s) PO TID as needed for pain 11/15/2018 05/13/2019 Ac tive ketoconazole 2 % top ical cream RxNorm: 142351 APPLY ONE GRAM TOPICA LLY TWICE A DAY 11/15/2018 11/29/2018 In active testosterone cypiona te 200 mg/mL intramuscular oil RxNorm: 2782785 1 Milliliter(s) IM 11/15/2018 11/14/2018 Inactive hydrocodone 5 mg-fanny taminophen 325 mg tablet RxNorm: 039815 1 Tablet(s) PO TID CT N 11/02/2018 11/28/2018 In active Singulair 10 mg tablet RxNorm: 020744 1 Tablet(s) PO daily 11/01/2018 07/28/2019 Active testosterone cypiona te 200 mg/mL intramuscular oil RxNorm: 4444479 1 Milliliter(s) IM 2 x month 11/01/2018 11/16/2018 Inactive Adderall 30 mg tablet RxNorm: 953419 2 Tablet(s) PO daily 10/29/2018 11/27/2018 Inactive gabapentin 300 mg ca psule RxNorm: 274531 1 Capsule(s) PO BID m ay take TID 10/19/2018 02/15/2019 Ac tive gabapentin 300 mg ca psule RxNorm: 470989 1 Capsule(s) PO BID m ay take TID 10/19/2018 10/18/2018 In active alprazolam 1 mg tablet RxNorm: 705378 1 Tablet(s) PO TID as needed 10/15/2018 12/13/2018 Active testosterone cypiona te 200 mg/mL intramuscular oil RxNorm: 426896 Milliliter(s) IM 09/28/2018 09/28/2018 In active pravastatin 40 mg ta blet RxNorm: 111151 TAKE ONE TABLET BY MO UTH EVERY NIGHT AT BEDTIME 09/27/2018 09/21/2019 Active Tamiflu 75 mg capsule RxNorm: 146069 1 Capsule(s) PO BID 09/24/2018 09/28/2018 Inactive Adderall 30 mg tablet RxNorm: 684338 2 Tablet(s) PO daily 09/20/2018 10/19/2018 Inactive hydrocodone 5 mg-fanny taminophen 325 mg tablet RxNorm: 867083 1 Tablet(s) PO TID CT N 09/20/2018 11/01/2018 In active testosterone cypiona te 200 mg/mL intramuscular oil RxNorm: 384039 Milliliter(s) IM 09/16/2018 09/16/2018 In active testosterone cypiona te 200 mg/mL intramuscular oil RxNorm: 916494 1 Milliliter(s) IM 09/02/2018 09/02/2018 Inactive testosterone cypiona te 200 mg/mL intramuscular oil RxNorm: 331807 Milliliter(s) IM 08/19/2018 08/19/2018 In active tramadol 50 mg tablet RxNorm: 360878 1-2 Tablet(s) PO Q6 as needed 08/18/2018 No Stop Date Active Adderall 30 mg tablet RxNorm: 606245 2 Tablet(s) PO daily 08/18/2018 09/16/2018 Inactive Dexilant 60 mg capsu le, delayed release RxNorm: 311191 1 Capsule(s) PO BID 08/17/2018 08/11/2019 Ac tive atenolol 50 mg tablet RxNorm: 355848 1 Tablet(s) PO BID 08/17/2018 08/11/2019 Active ketoconazole 2 % top ical cream RxNorm: 718874 1 Gram(s) TOP BID 08/17/2018 08/26/2018 Inactive Zorvolex 35 mg capsule RxNorm: 4144720 1 Capsule(s) PO TID as needed for pain 08/17/2018 08/16/2018 In active Zorvolex 35 mg capsule RxNorm: 2046430 1 Capsule(s) PO TID as needed for pain 08/17/2018 11/14/2018 In active ketoconazole 2 % top ical cream RxNorm: 490079 1 Gram(s) TOP BID 08/02/2018 08/11/2018 Inactive hydrocortisone 2.5 % topical cream RxNorm: 973649 1 Application TOP BID 07/21/2018 No Stop Date Active Adderall 30 mg tablet RxNorm: 877522 2 Tablet(s) PO daily 07/20/2018 08/17/2018 Inactive testosterone cypiona te 200 mg/mL intramuscular oil RxNorm: 803824 Milliliter(s) IM 07/15/2018 07/15/2018 In active alprazolam 1 mg tablet RxNorm: 113025 1 Tablet(s) PO TID as needed 07/12/2018 09/07/2018 Inactive hydrocodone 5 mg-fanny taminophen 325 mg tablet RxNorm: 711533 1 Tablet(s) PO TID CT N 06/30/2018 09/19/2018 In active pravastatin 40 mg ta blet RxNorm: 020304 1 Tablet(s) PO QHS 06/18/2018 09/15/2018 Inactive Adderall 30 mg tablet RxNorm: 509174 2 Tablet(s) PO daily 06/18/2018 07/17/2018 Inactive testosterone cypiona te 200 mg/mL intramuscular oil RxNorm: 893362 Milliliter(s) IM 06/17/2018 06/17/2018 In active Voltaren 1 % topical gel RxNorm: 853911 APPLY TOPICALLY TWO T IMES A DAY 06/16/2018 07/21/2018 In active Vitamin D2 50,000 un it capsule RxNorm: 0103033 1 Capsule(s) PO QW 05/21/2018 No Stop Date Active Adderall 30 mg tablet RxNorm: 992218 2 Tablet(s) PO daily 05/21/2018 06/17/2018 Inactive testosterone cypiona te 200 mg/mL intramuscular oil RxNorm: 841162 Milliliter(s) IM 05/21/2018 05/21/2018 In active testosterone cypiona te 200 mg/mL intramuscular oil RxNorm: 5551646 1 Milliliter(s) IM monthly 05/20/2018 09/16/2018 Inactive testosterone cypiona te 200 mg/mL intramuscular oil RxNorm: 381309 1 Milliliter(s) IM monthly 05/20/2018 05/19/2018 Inactive hydrocodone 5 mg-fanny taminophen 325 mg tablet RxNorm: 297785 1 Tablet(s) PO TID CT N 05/20/2018 06/29/2018 In active Vitamin D2 50,000 un it capsule RxNorm: 8613809 1 Capsule(s) PO QW 05/18/2018 05/20/2018 Inactive triamcinolone aceton destin 0.025 % topical cream RxNorm: 5714237 1 Application TOP BI D 05/13/2018 No Stop Date Active Dexilant 60 mg capsu le, delayed release RxNorm: 118073 1 Capsule(s) PO BID 05/13/2018 08/16/2018 In active Zorvolex 35 mg capsule RxNorm: 3258513 1 Capsule(s) PO TID as needed for pain 05/12/2018 08/09/2018 In active Voltaren 1 % topical gel RxNorm: 236019 1 Application TOP BID 05/12/2018 06/15/2018 Inactive acyclovir 400 mg tablet RxNorm: 493208 1 Tablet(s) PO TID as needed take at ons et of symptoms of cold sores x 5 days 05/10/2018 No Stop Date Active paroxetine 20 mg tablet RxNorm: 5559045 2 Tablet(s) PO QHS 05/10/2018 10/31/2019 Active ProAir HFA 90 mcg/ac tuation aerosol inhaler RxNorm: 005047 1 Puff(s) INH QID as needed 05/10/2018 No Stop Date Active baclofen 20 mg tablet RxNorm: 695760 1 Tablet(s) PO TID as needed muscle spas ms 05/10/2018 06/08/2018 In active Singulair 10 mg tablet RxNorm: 515034 1 Tablet(s) PO daily 05/10/2018 08/07/2018 Inactive atenolol 50 mg tablet RxNorm: 592716 1 Tablet(s) PO BID 05/10/2018 08/07/2018 Inactive triamcinolone aceton destin 0.025 % topical cream RxNorm: 3956087 1 Application TOP BI D 05/10/2018 05/12/2018 In active tramadol 50 mg tablet RxNorm: 834222 1 Tablet(s) PO TID as needed 05/10/2018 05/19/2018 Inactive Dexilant 60 mg capsu le, delayed release RxNorm: 230749 1 Capsule(s) PO daily 05/10/2018 05/12/2018 In active alprazolam 1 mg tablet RxNorm: 986519 1 Tablet(s) PO TID as needed 05/10/2018 08/06/2018 Inactive trazodone 100 mg tablet RxNorm: 630818 1 Tablet(s) PO QHS 05/10/2018 11/05/2018 Inactive cyclobenzaprine 10 m g tablet RxNorm: 490052 1 Tablet(s) PO TID as needed muscle spasms 05/07/2018 07/12/2018 Inactive trazodone 100 mg tablet RxNorm: 004128 1 Tablet(s) PO QHS 05/07/2018 05/09/2018 Inactive Adderall 30 mg tablet RxNorm: 215453 2 Tablet(s) PO daily 04/19/2018 05/18/2018 Inactive alprazolam 1 mg tablet RxNorm: 999203 1 Tablet(s) PO BID 04/19/2018 05/09/2018 Inactive Adderall 30 mg tablet RxNorm: 138243 2 Tablet(s) PO daily 03/26/2018 04/18/2018 Inactive paroxetine 20 mg tablet RxNorm: 0470514 2 Tablet(s) PO QHS 03/15/2018 05/09/2018 Inactive Adderall 30 mg tablet RxNorm: 615045 2 Tablet(s) PO daily 02/25/2018 03/25/2018 Inactive cyclobenzaprine 10 m g tablet RxNorm: 453220 1 Tablet(s) PO TID as needed muscle spasms 02/22/2018 05/06/2018 Inactive tramadol 50 mg tablet RxNorm: 046453 1 Tablet(s) PO TID as needed 02/22/2018 03/07/2018 Inactive tramadol 50 mg tablet RxNorm: 460067 1 Tablet(s) PO TID as needed 02/22/2018 02/21/2018 Inactive trazodone 100 mg tablet RxNorm: 386357 1 Tablet(s) PO QHS 02/03/2018 05/03/2018 Inactive trazodone 100 mg tablet RxNorm: 149643 1 Tablet(s) PO QHS 02/03/2018 02/02/2018 Inactive Adderall 30 mg tablet RxNorm: 600219 2 Tablet(s) PO daily 01/27/2018 02/18/2018 Inactive acyclovir 400 mg tablet RxNorm: 657955 1 Tablet(s) PO TID as needed take at ons et of symptoms of cold sores x 5 days 01/15/2018 05/09/2018 Inactive Bactrim DS 800 mg-16 0 mg tablet RxNorm: 280675 1 Tablet(s) PO BID 01/11/2018 01/17/2018 Inactive Bactrim DS 800 mg-16 0 mg tablet RxNorm: 230141 1 Tablet(s) PO BID 01/11/2018 01/10/2018 Inactive Dexilant 60 mg capsu le, delayed release RxNorm: 913807 1 Capsule(s) PO daily 12/23/2017 05/09/2018 In active Dexilant 60 mg capsu le, delayed release RxNorm: 481152 1 Capsule(s) PO daily 12/23/2017 12/22/2017 In active atenolol 50 mg tablet RxNorm: 934020 1 Tablet(s) PO BID 12/15/2017 05/09/2018 Inactive alprazolam 1 mg tablet RxNorm: 371244 1-1.5 Tablet(s) PO daily 12/15/2017 04/18/2018 Inactive ceftriaxone 500 mg s olution for injection RxNorm: 8992845 Inj 08/03/2015 08/03/2015 Inactive paroxetine 20 mg tablet RxNorm: 7647470 2 Tablet(s) PO QHS 08/01/2015 10/29/2015 Inactive pravastatin 40 mg ta blet RxNorm: 375349 1/2 Tablet(s) PO QHS 08/01/2015 12/14/2017 Inactive Trazadone 100mg 100 mg RxNorm: 1 PO daily 08/01/2015 11/27/2015 Inactive Trazadone 100mg 100 mg RxNorm: 1 PO daily 08/01/2015 05/04/2018 Inactive atenolol 50 mg tablet RxNorm: 822627 1 Tablet(s) PO daily 08/01/2015 10/29/2015 Inactive ibuprofen 800 mg tablet RxNorm: 013178 1 Tablet(s) PO BID -TID No Start Date Active Zyrtec 10 mg tablet RxNorm: 5262224 1 Tablet(s) PO daily No Start Date Active pravastatin 40 mg ta blet RxNorm: 463458 1/2 Tablet(s) PO QHS No Start Date 07/31/2015 Inactive Benadryl Allergy 25 mg tablet RxNorm: 4762896 1 Tablet(s) PO daily No Start Date 07/19/2018 Inactive Adderall 30 mg tablet RxNorm: 210632 2 Tablet(s) PO daily No Start Date 01/26/2018 Inactive Aspirin Low Dose 81 mg tablet,delayed release RxNorm: 097479 1 Tablet(s) PO BID No Start Date 07/19/2018 Inactive Singulair 10 mg tablet RxNorm: 726053 1 Tablet(s) PO daily No Start Date 05/09/2018 Inactive cyclobenzaprine 10 m g tablet RxNorm: 587033 1 Tablet(s) PO TID as needed muscle spasms No Start Date 02/21/2018 Inactive Trazadone 100mg 100 mg RxNorm: 1 PO daily No Start Date 07/31/2015 Inactive clindamycin 1 %-arthur oyl peroxide 5 % topical gel RxNorm: 238706 TOP APPLY TO AFFECTED AREA(S) ON SERNA TWO TIMES A DAY No Start Date 11/16/2018 Inactive hydrocortisone 2.5 % topical cream RxNorm: 271400 1 Application TOP BID No Start Date 07/20/2018 Inactive alprazolam 1 mg tablet RxNorm: 759864 2 Tablet(s) PO daily No Start Date 12/14/2017 Inactive tramadol 50 mg tablet RxNorm: 624963 1-2 Tablet(s) PO Q6 as needed No Start Date 08/17/2018 Inactive Vitamin D2 50,000 un it capsule RxNorm: 1492366 1 Capsule(s) PO QW No Start Date 05/17/2018 Inactive pantoprazole 40 mg t ablet,delayed release RxNorm: 265305 1 Tablet(s) PO BID No Start Date 12/22/2017 Inactive atenolol 50 mg tablet RxNorm: 463193 1 Tablet(s) PO daily No Start Date 07/31/2015 Inactive paroxetine 20 mg tablet RxNorm: 139982 2 Tablet(s) PO QHS No Start Date 07/31/2015 Inactive Medication Administered Medication Codes Instruc tions Start Date Status testosterone cypionate 200 mg/mL intramuscular oil RxNorm: 5302069 1Milliliter 11/15/2018 No longer Active testosterone cypionate 200 mg/mL intramuscular oil RxNorm: 778639 Milliliter 09/28/2018 No longer Active testosterone cypionate 200 mg/mL intramuscular oil RxNorm: 793711 Milliliter 09/16/2018 No longer Active testosterone cypionate 200 mg/mL intramuscular oil RxNorm: 944677 1Milliliter 09/02/2018 No longer Active testosterone cypionate 200 mg/mL intramuscular oil RxNorm: 655834 Milliliter 08/19/2018 No longer Active testosterone cypionate 200 mg/mL intramuscular oil RxNorm: 278901 Milliliter 07/15/2018 No longer Active testosterone cypionate 200 mg/mL intramuscular oil RxNorm: 095858 Milliliter 06/17/2018 No longer Active testosterone cypionate 200 mg/mL intramuscular oil RxNorm: 552349 Milliliter 05/21/2018 No longer Active ceftriaxone 500 mg solution for injection RxNorm: 3597390 08/03/2015 No longer A ctive Immunizations Vaccine Codes Date Status Influenza CVX: 141 08/02 completed Tetanus, Diptheria, Pertussis CVX: 113 05/16/2011 completed Tetanus/Diptheria CVX: 113 05/16/2011 completed Assessments Condition Codes Effectiv e Dates 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 ICD-9: 257.2 11/15/2018 Cervicalgia ICD-10: M54.2 ICD-9: 723.1 11/01/2018 Spinal stenosis, thoracic region ICD -10: M48.04 ICD-9: 724.01 11/01/2018 Essential (primary) hypertension ICD -10: I10 ICD-9: 401.1 11/01/2018 Other allergic rhinitis ICD-10: J30. 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.012 ICD-9: 377.41 05/10/2018 Decreased libido ICD-10: R68.82 ICD-9: 799.81 05/10/2018 Other malaise ICD-10: R53.81 ICD-9: 780.79 05/10/2018 Other fatigue ICD-10: R53.83 ICD-9: 780.79 05/10/2018 Obstructive sleep apnea (adult) (pediatric) ICD-10: G47.33 ICD-9: 327.23 01/15/2018 Encounter for general adult medical exam ination with abnormal findings ICD-10: Z00.01 ICD-9: V70.0 12/15/2017 Laceration of thumb ICD-9: 883.0 08/03/2015 Reason For Visit Reason For Visit Effective Dates Notes hypertension 11/01/2018 sinus congestion 09/24/2018 back pain 08/16/2018 back pain 08/02/2018 back pain 05/31/2018 back pain 05/20/2018 medication follow up 05/10/2018 vision change 01/15/2018 vision change 12/15/2017 Results Observation Observation Code Item Item Code Result Date Testosterone Serum 436552 TESTOSTERONE 44.1 ng/dL 08/18/2018 Hematocrit 028733 WBC 7.62 thou/uL 08/17/2018 Hematocrit 298615 RBC 5.23 mil/uL 08/17/2018 Hematocrit 148623 HEMOGL OBIN 15.0 g/dL 08/17/2018 Hematocrit 894417 HEMATO CRIT 45.0 % 08/17/2018 Hematocrit 540639 MCV 86.0 fL 08/17/2018 Hematocrit 987869 MCH 28.7 pg 08/17/2018 Hematocrit 400047 MCHC 33.3 g/dL 08/17/2018 Hematocrit 607949 RDW-CV 12.9 % 08/17/2018 Hematocrit 948171 PLATEL ET COUNT 313 thou/uL 08/17/2018 Hemoglobin 395999 WBC 7.62 thou/uL 08/17/2018 Hemoglobin 130782 RBC 5.23 mil/uL 08/17/2018 Hemoglobin 867938 HEMOGL OBIN 15.0 g/dL 08/17/2018 Hemoglobin 295909 HEMATO CRIT 45.0 % 08/17/2018 Hemoglobin 781854 MCV 86.0 fL 08/17/2018 Hemoglobin 426784 MCH 28.7 pg 08/17/2018 Hemoglobin 595391 MCHC 33.3 g/dL 08/17/2018 Hemoglobin 180948 RDW-CV 12.9 % 08/17/2018 Hemoglobin 790559 PLATEL ET COUNT 313 thou/uL 08/17/2018 Culture Mrsa 043061 MRSA CULTURE SEE NOTES 06/21/2018 Comp. Metabolic Panel (14) 27564 GLUCOSE 101 mg/dL 06/18/2018 Comp. Metabolic Panel (14) 42833 BUN 18 mg/dL 06/18/2018 Comp. Metabolic Panel (14) 27183 CREATININE 0.99 mg/dL 06/18/2018 Comp. Metabolic Panel (14) 11902 SODIUM 141 mmol/L 06/18/2018 Comp. Metabolic Panel (14) 28031 POTASSIUM 4.3 mmol/L 06/18/2018 Comp. Metabolic Panel (14) 73036 CHLORIDE 103 mmol/L 06/18/2018 Comp. Metabolic Panel (14) 39994 CARBON DIOXIDE 23 mmol/L 06/18/2018 Comp. Metabolic Panel (14) 03112 CALCIUM 9.8 mg/dL 06/18/2018 Comp. Metabolic Panel (14) 58153 TOTAL PROTEIN 7.1 g/dL 06/18/2018 Comp. Metabolic Panel (14) 59673 ALBUMIN 5.2 g/dL 06/18/2018 Comp. Metabolic Panel (14) 46536 ALKALINE PHOSPHATASE 65 U/L 06/18/2018 Comp. Metabolic Panel (14) 41264 TOTAL BILIRUBIN 0.6 mg/dL 06/18/2018 Comp. Metabolic Panel (14) 28401 SGOT (AST) 21 U/L 06/18/2018 Comp. Metabolic Panel (14) 58031 SGPT (ALT) 24 U/L 06/18/2018 Comp. Metabolic Panel (14) 42012 eGFR (mL/min/1.73m2) 115 06/18/2018 Comp. Metabolic Panel (14) 61770 INTERPRETATION 06/18/2018 Cbc With Differential/Platelet 03377 WBC 4.55 thou/uL 8 Cbc With Differential/Platelet 07889 RBC 5.13 mil/uL 06/18/2018 Cbc With Differential/Platelet 30659 HEMOGLOBIN 14.4 g/dL 06/18/2018 Cbc With Differential/Platelet 17506 HEMATOCRIT 44.1 % 06/18/2018 Cbc With Differential/Platelet 05887 MCV 85.9 fL 06/18/2018 Cbc With Differential/Platelet 22214 MCH 28.1 pg 06/18/2018 Cbc With Differential/Platelet 87373 MCHC 32.7 g/dL 06/18/2018 Cbc With Differential/Platelet 62144 RDW-CV 13.4 % 06/18/2018 Cbc With Differential/Platelet 10570 PLATELET COUNT 287 thou/uL 06/18/2018 Cbc With Differential/Platelet 42046 NEUTROPHIL % 53.9 % 06/18/2018 Cbc With Differential/Platelet 48146 LYMPHOCYTE % 36.1 % 06/18/2018 Cbc With Differential/Platelet 21526 MONOCYTE % 7.4 % 06/18/2018 Cbc With Differential/Platelet 03742 EOS % 1.9 % 06/18/2018 Cbc With Differential/Platelet 69758 BASO % 0.8 % 06/18/2018 Cbc With Differential/Platelet 48495 NEUTROPHIL ABS # 2.45 thou/uL 06/18/2018 Cbc With Differential/Platelet 77886 LYMPH ABS # 1.64 thou/uL 06/18/2018 Cbc With Differential/Platelet 12382 MONOCYTE ABS # 0.34 thou/uL 06/18/2018 Cbc With Differential/Platelet 65086 EOS ABS # 0.09 thou/uL 8 Cbc With Differential/Platelet 63432 BASO ABS # 0.04 thou/uL 06/18/2018 Review of Systems System Result Effective Dates Constitutional recent illness 11/01/2018 Constitutional No chills [...] age 0301/15/2018 None Full Exam - General 1995 Constitutional [...] Procedure Codes Date THER/PROPH/DIAG INJ SC/IM CPT-4: 48258 11/15/2018 THER/PROPH/DIAG INJ SC/IM CPT-4: 21896 09/28/2018 THER/PROPH/DIAG INJ SC/IM CPT-4: 31219 09/16/2018 THER/PROPH/DIAG INJ SC/IM CPT-4: 67440 09/02/2018 THER/PROPH/DIAG INJ SC/IM CPT-4: 54294 08/19/2018 IMMUNIZATION ADMIN CPT- 4: 01998 08/02/2018 FLU VAC NO PRSV 4 VA L 3 YRS+ CPT-4: 61764 08/02/2018 THER/PROPH/DIAG INJ SC/IM CPT-4: 67059 07/15/2018 THER/PROPH/DIAG INJ SC/IM CPT-4: 43562 06/17/2018 THER/PROPH/DIAG INJ SC/IM CPT-4: 23108 05/21/2018 THER/PROPH/DIAG INJ SC/IM CPT-4: 37254 08/03/2015 ROCEPHIN, PER 250 MG CPT-4: J0696 08/03/2015 Vital Signs Date Vital 11/01/2018 Blood Pressure 1: 146/82 Code: 8480-6 BMI: 36.0 Code: 52690-3 Heart Rate 1: 87 bpm Height: 5'7" SpO2: 98% Weight: 230 lbs 09/24/2018 Blood Pressure 1: 140/82 Code: 8480-6 BMI: 36.0 Code: 24919-5 Heart Rate 1: 86 bpm Height: 5'7" SpO2: 98% Temperature: 37.1 (C ) / 98.7 (F) Weight: 230 lbs 08/16/2018 Blood Pressure 1: 148/82 Code: 8480-6 Blood Pressure 2: 157/92 Code: 8480-6 BMI: 35.9 Code: 06874-7 Heart Rate 1: 72 bpm Height: 5'7" SpO2: 96% Weight: 229 lbs 08/02/2018 Blood Pressure 1: 142/86 Code: 8480-6 BMI: 35.2 Code: 88892-0 Heart Rate 1: 101 bpm Height: 5'7" SpO2: 97% Weight: 225 lbs 05/31/2018 Blood Pressure 1: 134/82 Code: 8480-6 BMI: 35.4 Code: 66508-0 Heart Rate 1: 91 bpm Height: 5'7" SpO2: 96% Weight: 226 lbs 05/20/2018 Blood Pressure 1: 160/100 Code: 8480-6 BMI: 35.2 Code: 79021-0 Heart Rate 1: 89 bpm Height: 5'7" SpO2: 98% Weight: 225 lbs 05/10/2018 Blood Pressure 1: 124/70 Code: 8480-6 BMI: 35.1 Code: 09558-9 Heart Rate 1: 93 bpm Height: 5'7" SpO2: 99% Weight: 224 lbs 01/15/2018 Blood Pressure 1: 142/92 Code: 8480-6 BMI: 36.3 Code: 40805-6 Heart Rate 1: 77 bpm Height: 5'7" SpO2: 98% Weight: 232 lbs 12/15/2017 Blood Pressure 1: 156/98 Code: 8480-6 BMI: 36.2 Code: 44122-2 Heart Rate 1: 87 bpm Height: 5'7" SpO2: 97% Weight: 231 lbs Functional Status No Functional Status data History of Present Illness Symptom Name Status Resu lt Effective Date Notes Quality primary hypert ension 11/01/2018 None Onset [...] eye 01/15/2018 None vision change Quality ac grayling 01/15/2018 None vision change Quality lo ss [...] vision 12/15/2017 None vision change Quality ac grayling 12/15/2017 None vision change Onset and Resolution sudden in onset 12/15/2017 None vision change Onset of Symptom 3.5 weeks ago 12/15/2017 None vision change Limitation on Activities severely limits vision 12/15/2017 None vision change Triggers n o known associated factors 12/15/2017 None Advance Directives No Advance Directive data Encounters Encounter Performer Loca tion Codes Date ([id number]) [id number] EST. P ATIENT, LEVEL IV Diagnosis: Essential (primary) hypertension[ICD10: I10] Diagnosis: Cervicalgia[ICD10: M54.2] Diagnosis: Spinal stenosis, thoracic region[ICD10: M48.04] Diagnosis: Testicular hypofunction[ICD10: E29.1] Radha Gonzalez MD, [facility] CPT-4: 30663 11/01/2018 [id number] EST. PATIENT, LEVEL III Diagnosis: Acute upper respiratory infection, unspecified[ICD10: J06.9] Diagnosis: Other allergic rhinitis[ICD10: J30.89] Sonia Gonzalez MD, [facility] CPT-4: 74726 09/24/2018 [id number]) [id number] EST. P ATIENT, LEVEL III Diagnosis: Essential (primary) hypertension[ICD10: I10] Diagnosis: Testicular hypofunction[ICD10: E29.1] Radha Gonzalez MD, [facility] CPT-4: 65077 08/16/2018 [id number]) [id number] EST. 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 P ATIENT, LEVEL IV Diagnosis: Essential (primary) hypertension[ICD10: I10] Diagnosis: Cervicalgia[ICD10: M54.2] Radha Gonzalez MD, [facility] CPT-4: 25403 05/31/2018 ([id number]) 42217 EST. 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.] needed. 11/01/2018 Appointment: Radha Gonzalez WPtel: [phone] [facility] (15 min) Moderate 11/01/2018 Patient [...] spray. 09/24/2018 Appointment: Sonia Potter WPtel: [phone] [facility] (15 min) Moderate 09/24/2018 Patient Education: Patient [...] Multiple symptoms - referral to [facility] - appt in September 30, 2018. 08/16/2018 Appointment: Radha Gonzalez WPtel: [facility] (15 min) Moderate 08/16/2018 Patient Education: [...] Multiple symptoms - referral to [facility] - rashes, hypogonadism, optic neuritis - all points to possible autoimmune syndrome. Spinal stenosis - of thoracic region - pt to talk to Dr. Dunaway about referral to a different specialist for his mid- back. Hypogonadism - continue with testosterone. Flu shot given today in clinic. 08/02/2018 Appointment: Radha Gonzalez WPtel: [facility] (15 min) Moderate 08/02/2018 Patient Education: Patient Medication Summary Completed 08/02/2018 Care Plan: Referral Order SNOMED-CT : 541974316 Pending 08/02/2018 Appointment: Injection 07/15/2018 Patient Education: [...] option. 05/31/2018 Appointment: Radha Gonzalez WPtel: [phone] [facility] (15 min) Moderate 05/31/2018 Patient Education: Patient Medication Summary Completed 05/31/2018 Care Plan: Referral Order SNOMED-CT : 862769442 Pending 05/31/2018 Care Plan: Referral Order SNOMED-CT : [id number] Pending 05/31/2018 Appointment: Injection 05/21/2018 Patient Education: Patient Medication Summary Completed 05/21/2018 Care Plan: Referral Order SNOMED-CT : 879857322 Pending 05/21/2018 Visit Plan: Cervical and thoracic s tenosis with spinal cord compression -refer for appt with Dr Marr -rx for hydrocodone for pain-start gabapentin at bedtime Soft tissue lesion-left chest-schedule CTfor further evaluation HTN-elevated today-hold adderall-monitor blood pressure 05/20/2018 Appointment: Hannah Simons WPtel: [phone] [phone] [place] (15 min) Moderate 05/20/2018 Patient Education: [...] this. 05/10/2018 Appointment: Sonia Potter WPtel: [phone] [facility] [place] (15 min) Moderate 05/10/2018 Patient Education: Patient Medication Summary Completed 05/10/2018 Visit Plan: Sleep apnea - rx for cp ap - actually autopap was recommended and pt given rx today. HTN - referral to dr. kapoor - pt needs stress testing. 01/15/2018 Appointment: Radha Gonzalez WPtel: [facility] (15 min) Moderate 01/15/2018 Patient Education: Patient Medication Summary Completed 01/15/2018 Care Plan: Referral Order SNOMED-CT : [id number] Pending 01/15/2018 Visit Plan: Well Adult - [...] one month. 12/15/2017 Appointment: Radha Gonzalez WPtel: [address] [place], [place] [address] [place] New Patient 12/15/2017 Patient Education: Patient Medication Summary Completed 12/15/2017 Care Plan: CHEST X-RAY 2VW FRONTAL&LATL LOINC : 61708-4 Pending 12/15/2017 Appointment: Radha Gonzalez WPtel: [facility] [place] (15 min) Moderate 12/08/2017 Appointment: (S) New Patient 08/13/2015 Visit Plan: steri strip placed on t humb of right hand - antibiotic shot given to patient and rx for keflex 500mg qid x 10 days given to the patient to fill prior to his trip to [place] 08/03/2015 Patient Education: Patient Medication Summary Completed 08/03/2015 Referral: External, Ordering Provider 08/03 Referral info faxed to [facility] Patient informed to be expecting a call from them with appt info Appointment Requested Referral: External, Ordering Provider Referral Appointment Requested Referral: External, Ordering Provider I called today; they will call him to schedule. Completed Referral: Armani Dunaway Referral Appointment Requested Referral: Mayte Kapoor Referral Appointment [facility]ed Ref[phone] [facility] [facility] Appointment Requested Referral: External, [...] dr. kapoor - pt needs stress testing. CT chest with IV con trast -next [...] Multiple symptoms - referral to [facility] - rashes, hypogonadism, optic neuritis - all [...] Multiple symptoms - referral to [facility] - appt in September 30, 2018. . steri strip placed on thumb of right hand - antibiotic shot given to patient and rx for keflex 500mg qid x 10 days given to the patient to fill prior to his trip to [place] will refill meds for 90 days [...] home. Cervical spine stenosis - referral to [facility]. I have also recommended a Referral to Dr. Dunaway. I have called and talked to Dr. Dunaway - he looked at the pt's imaging and agrees that getting the pt in to be seen soon would be a preferred option.
--- OUTSIDE RECORDS SUMMARY | 2020-04-28 00:52 | XMS REPORT | CCD ---
Author Author Nilton Gonzalez Organization [facility] Address [address] [place] [address] Phone Care Team Providers Care Escrow Officer Name Role Phone PP Unavailable CCM Unavailable Summary Purpose Interface Exchange Insurance Providers Payer name Policy type / Coverage type Covered democrat ID Effective Begin Date Effective End Date [employer] [id number] 2018 Unknown Family history Brother Diagnosis Age At Onset Alcoholism Unknown Father Diagnosis Age At Onset Hypercholesterolemia Unknown Social History Social History Element Codes Description Effective Dates Marital status Unknown S chanda 12/15/2017 Number of children Unknown 1 12/15/2017 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 [employer] 12/15/[address]: 808853622 Never smoker 12/15/[address]: 999960 Currently drinks alcohol <1 per week 12/15/2017 [...] 724.1 ICD-10: M54.6 05/10/2018 Active Encounter for [facility] adult medical examination with abnormal findings ICD-9: V70.0 ICD-10: Z00.01 12/15/2017 Active Laceration of thumb ICD- 9: 883.0 08/02/2015 Active Medications Medication Codes Instruc tions Start Date Stop Date Sta tus Fill Instructions gabapentin 300 mg ca psule RxNorm: 164437 1 Capsule(s) PO QID 12/16/2018 12/10/2019 Active Voltaren 1 % topical gel RxNorm: 121768 2 Gram(s) APPLY TOPIC ALLY four TIMES A DAY 12/16/2018 01/20/2019 Ac tive trazodone 100 mg tablet RxNorm: 719255 TAKE ONE TABLET BY MOUTH EVERY NIGHT AT BEDTIME 12/07/2018 06/04/2019 Active hydrocodone 5 mg-fanny taminophen 325 mg tablet RxNorm: 281108 1 Tablet(s) PO TID OH N 11/29/2018 No Stop Date Active Adderall 30 mg tablet RxNorm: 788766 2 Tablet(s) PO daily 11/29/2018 12/28/2018 Active clindamycin 1 %-arthur oyl peroxide 5 % topical gel RxNorm: 821238 TOP APPLY TO AFFECTED AREA(S) ON SERNA TWO TIMES A DAY 11/17/2018 No Stop Date Active testosterone cypiona te 200 mg/mL intramuscular oil RxNorm: 1230214 1 Milliliter(s) IM 2 x month 11/17/2018 03/16/2019 Active Zorvolex 35 mg capsule RxNorm: 0390553 1 Capsule(s) PO TID as needed for pain 11/15/2018 05/13/2019 Ac tive ketoconazole 2 % top ical cream RxNorm: 791483 APPLY ONE GRAM TOPICA LLY TWICE A DAY 11/15/2018 11/29/2018 In active testosterone cypiona te 200 mg/mL intramuscular oil RxNorm: 1393883 1 Milliliter(s) IM 11/15/2018 11/14/2018 Inactive hydrocodone 5 mg-fanny taminophen 325 mg tablet RxNorm: 373091 1 Tablet(s) PO TID OH N 11/02/2018 11/28/2018 In active Singulair 10 mg tablet RxNorm: 303154 1 Tablet(s) PO daily 11/01/2018 07/28/2019 Active testosterone cypiona te 200 mg/mL intramuscular oil RxNorm: 9212689 1 Milliliter(s) IM 2 x month 11/01/2018 11/16/2018 Inactive Adderall 30 mg tablet RxNorm: 793196 2 Tablet(s) PO daily 10/29/2018 11/27/2018 Inactive gabapentin 300 mg ca psule RxNorm: 353981 1 Capsule(s) PO BID m ay take TID 10/19/2018 12/15/2018 In active gabapentin 300 mg ca psule RxNorm: 182462 1 Capsule(s) PO BID m ay take TID 10/19/2018 10/18/2018 In active alprazolam 1 mg tablet RxNorm: 221422 1 Tablet(s) PO TID as needed 10/15/2018 12/13/2018 Inactive testosterone cypiona te 200 mg/mL intramuscular oil RxNorm: 659632 Milliliter(s) IM 09/28/2018 09/28/2018 In active pravastatin 40 mg ta blet RxNorm: 338988 TAKE ONE TABLET BY MO UTH EVERY NIGHT AT BEDTIME 09/27/2018 09/21/2019 Active Tamiflu 75 mg capsule RxNorm: 543673 1 Capsule(s) PO BID 09/24/2018 09/28/2018 Inactive Adderall 30 mg tablet RxNorm: 099819 2 Tablet(s) PO daily 09/20/2018 10/19/2018 Inactive hydrocodone 5 mg-fanny taminophen 325 mg tablet RxNorm: 975571 1 Tablet(s) PO TID OH N 09/20/2018 11/01/2018 In active testosterone cypiona te 200 mg/mL intramuscular oil RxNorm: 891572 Milliliter(s) IM 09/16/2018 09/16/2018 In active testosterone cypiona te 200 mg/mL intramuscular oil RxNorm: 928244 1 Milliliter(s) IM 09/02/2018 09/02/2018 Inactive testosterone cypiona te 200 mg/mL intramuscular oil RxNorm: 519386 Milliliter(s) IM 08/19/2018 08/19/2018 In active tramadol 50 mg tablet RxNorm: 524277 1-2 Tablet(s) PO Q6 as needed 08/18/2018 No Stop Date Active Adderall 30 mg tablet RxNorm: 061743 2 Tablet(s) PO daily 08/18/2018 09/16/2018 Inactive Dexilant 60 mg capsu le, delayed release RxNorm: 844936 1 Capsule(s) PO BID 08/17/2018 08/11/2019 Ac tive atenolol 50 mg tablet RxNorm: 296399 1 Tablet(s) PO BID 08/17/2018 08/11/2019 Active ketoconazole 2 % top ical cream RxNorm: 743847 1 Gram(s) TOP BID 08/17/2018 08/26/2018 Inactive Zorvolex 35 mg capsule RxNorm: 5004667 1 Capsule(s) PO TID as needed for pain 08/17/2018 08/16/2018 In active Zorvolex 35 mg capsule RxNorm: 5411563 1 Capsule(s) PO TID as needed for pain 08/17/2018 11/14/2018 In active ketoconazole 2 % top ical cream RxNorm: 235334 1 Gram(s) TOP BID 08/02/2018 08/11/2018 Inactive hydrocortisone 2.5 % topical cream RxNorm: 519746 1 Application TOP BID 07/21/2018 No Stop Date Active Adderall 30 mg tablet RxNorm: 463412 2 Tablet(s) PO daily 07/20/2018 08/17/2018 Inactive testosterone cypiona te 200 mg/mL intramuscular oil RxNorm: 359811 Milliliter(s) IM 07/15/2018 07/15/2018 In active alprazolam 1 mg tablet RxNorm: 224543 1 Tablet(s) PO TID as needed 07/12/2018 09/07/2018 Inactive hydrocodone 5 mg-fanny taminophen 325 mg tablet RxNorm: 235624 1 Tablet(s) PO TID OH N 06/30/2018 09/19/2018 In active pravastatin 40 mg ta blet RxNorm: 792512 1 Tablet(s) PO QHS 06/18/2018 09/15/2018 Inactive Adderall 30 mg tablet RxNorm: 355666 2 Tablet(s) PO daily 06/18/2018 07/17/2018 Inactive testosterone cypiona te 200 mg/mL intramuscular oil RxNorm: 004462 Milliliter(s) IM 06/17/2018 06/17/2018 In active Voltaren 1 % topical gel RxNorm: 126817 APPLY TOPICALLY TWO T IMES A DAY 06/16/2018 07/21/2018 In active Vitamin D2 50,000 un it capsule RxNorm: 4671493 1 Capsule(s) PO QW 05/21/2018 No Stop Date Active Adderall 30 mg tablet RxNorm: 956153 2 Tablet(s) PO daily 05/21/2018 06/17/2018 Inactive testosterone cypiona te 200 mg/mL intramuscular oil RxNorm: 640819 Milliliter(s) IM 05/21/2018 05/21/2018 In active testosterone cypiona te 200 mg/mL intramuscular oil RxNorm: 3980869 1 Milliliter(s) IM monthly 05/20/2018 09/16/2018 Inactive testosterone cypiona te 200 mg/mL intramuscular oil RxNorm: 776904 1 Milliliter(s) IM monthly 05/20/2018 05/19/2018 Inactive hydrocodone 5 mg-fanny taminophen 325 mg tablet RxNorm: 109524 1 Tablet(s) PO TID OH N 05/20/2018 06/29/2018 In active Vitamin D2 50,000 un it capsule RxNorm: 9042992 1 Capsule(s) PO QW 05/18/2018 05/20/2018 Inactive triamcinolone aceton destin 0.025 % topical cream RxNorm: 8902210 1 Application TOP BI D 05/13/2018 No Stop Date Active Dexilant 60 mg capsu le, delayed release RxNorm: 682345 1 Capsule(s) PO BID 05/13/2018 08/16/2018 In active Zorvolex 35 mg capsule RxNorm: 6793122 1 Capsule(s) PO TID as needed for pain 05/12/2018 08/09/2018 In active Voltaren 1 % topical gel RxNorm: 668456 1 Application TOP BID 05/12/2018 06/15/2018 Inactive acyclovir 400 mg tablet RxNorm: 677792 1 Tablet(s) PO TID as needed take at ons et of symptoms of cold sores x 5 days 05/10/2018 No Stop Date Active paroxetine 20 mg tablet RxNorm: 8326619 2 Tablet(s) PO QHS 05/10/2018 10/31/2019 Active ProAir HFA 90 mcg/ac tuation aerosol inhaler RxNorm: 600278 1 Puff(s) INH QID as needed 05/10/2018 No Stop Date Active baclofen 20 mg tablet RxNorm: 836571 1 Tablet(s) PO TID as needed muscle spas ms 05/10/2018 06/08/2018 In active Singulair 10 mg tablet RxNorm: 789883 1 Tablet(s) PO daily 05/10/2018 08/07/2018 Inactive atenolol 50 mg tablet RxNorm: 815948 1 Tablet(s) PO BID 05/10/2018 08/07/2018 Inactive triamcinolone aceton destin 0.025 % topical cream RxNorm: 1912648 1 Application TOP BI D 05/10/2018 05/12/2018 In active tramadol 50 mg tablet RxNorm: 080881 1 Tablet(s) PO TID as needed 05/10/2018 05/19/2018 Inactive Dexilant 60 mg capsu le, delayed release RxNorm: 887572 1 Capsule(s) PO daily 05/10/2018 05/12/2018 In active alprazolam 1 mg tablet RxNorm: 659361 1 Tablet(s) PO TID as needed 05/10/2018 08/06/2018 Inactive trazodone 100 mg tablet RxNorm: 350026 1 Tablet(s) PO QHS 05/10/2018 11/05/2018 Inactive cyclobenzaprine 10 m g tablet RxNorm: 506891 1 Tablet(s) PO TID as needed muscle spasms 05/07/2018 07/12/2018 Inactive trazodone 100 mg tablet RxNorm: 588651 1 Tablet(s) PO QHS 05/07/2018 05/09/2018 Inactive Adderall 30 mg tablet RxNorm: 740346 2 Tablet(s) PO daily 04/19/2018 05/18/2018 Inactive alprazolam 1 mg tablet RxNorm: 049257 1 Tablet(s) PO BID 04/19/2018 05/09/2018 Inactive Adderall 30 mg tablet RxNorm: 262779 2 Tablet(s) PO daily 03/26/2018 04/18/2018 Inactive paroxetine 20 mg tablet RxNorm: 4487883 2 Tablet(s) PO QHS 03/15/2018 05/09/2018 Inactive Adderall 30 mg tablet RxNorm: 485243 2 Tablet(s) PO daily 02/25/2018 03/25/2018 Inactive cyclobenzaprine 10 m g tablet RxNorm: 758187 1 Tablet(s) PO TID as needed muscle spasms 02/22/2018 05/06/2018 Inactive tramadol 50 mg tablet RxNorm: 108863 1 Tablet(s) PO TID as needed 02/22/2018 03/07/2018 Inactive tramadol 50 mg tablet RxNorm: 682732 1 Tablet(s) PO TID as needed 02/22/2018 02/21/2018 Inactive trazodone 100 mg tablet RxNorm: 488607 1 Tablet(s) PO QHS 02/03/2018 05/03/2018 Inactive trazodone 100 mg tablet RxNorm: 637772 1 Tablet(s) PO QHS 02/03/2018 02/02/2018 Inactive Adderall 30 mg tablet RxNorm: 533556 2 Tablet(s) PO daily 01/27/2018 02/18/2018 Inactive acyclovir 400 mg tablet RxNorm: 851431 1 Tablet(s) PO TID as needed take at ons et of symptoms of cold sores x 5 days 01/15/2018 05/09/2018 Inactive Bactrim DS 800 mg-16 0 mg tablet RxNorm: 067830 1 Tablet(s) PO BID 01/11/2018 01/17/2018 Inactive Bactrim DS 800 mg-16 0 mg tablet RxNorm: 147268 1 Tablet(s) PO BID 01/11/2018 01/10/2018 Inactive Dexilant 60 mg capsu le, delayed release RxNorm: 785018 1 Capsule(s) PO daily 12/23/2017 05/09/2018 In active Dexilant 60 mg capsu le, delayed release RxNorm: 652523 1 Capsule(s) PO daily 12/23/2017 12/22/2017 In active atenolol 50 mg tablet RxNorm: 248054 1 Tablet(s) PO BID 12/15/2017 05/09/2018 Inactive alprazolam 1 mg tablet RxNorm: 473111 1-1.5 Tablet(s) PO daily 12/15/2017 04/18/2018 Inactive ceftriaxone 500 mg s olution for injection RxNorm: 9490945 Inj 08/03/2015 08/03/2015 Inactive paroxetine 20 mg tablet RxNorm: 2872577 2 Tablet(s) PO QHS 08/01/2015 10/29/2015 Inactive pravastatin 40 mg ta blet RxNorm: 018649 1/2 Tablet(s) PO QHS 08/01/2015 12/14/2017 Inactive Trazadone 100mg 100 mg RxNorm: 1 PO daily 08/01/2015 11/27/2015 Inactive Trazadone 100mg 100 mg RxNorm: 1 PO daily 08/01/2015 05/04/2018 Inactive atenolol 50 mg tablet RxNorm: 953737 1 Tablet(s) PO daily 08/01/2015 10/29/2015 Inactive ibuprofen 800 mg tablet RxNorm: 497008 1 Tablet(s) PO BID -TID No Start Date Active Zyrtec 10 mg tablet RxNorm: 4288729 1 Tablet(s) PO daily No Start Date Active pravastatin 40 mg ta blet RxNorm: 051807 1/2 Tablet(s) PO QHS No Start Date 07/31/2015 Inactive Benadryl Allergy 25 mg tablet RxNorm: 4845418 1 Tablet(s) PO daily No Start Date 07/19/2018 Inactive Adderall 30 mg tablet RxNorm: 594641 2 Tablet(s) PO daily No Start Date 01/26/2018 Inactive Aspirin Low Dose 81 mg tablet,delayed release RxNorm: 485441 1 Tablet(s) PO BID No Start Date 07/19/2018 Inactive Singulair 10 mg tablet RxNorm: 963230 1 Tablet(s) PO daily No Start Date 05/09/2018 Inactive cyclobenzaprine 10 m g tablet RxNorm: 336335 1 Tablet(s) PO TID as needed muscle spasms No Start Date 02/21/2018 Inactive Trazadone 100mg 100 mg RxNorm: 1 PO daily No Start Date 07/31/2015 Inactive clindamycin 1 %-arthur oyl peroxide 5 % topical gel RxNorm: 016727 TOP APPLY TO AFFECTED AREA(S) ON SERNA TWO TIMES A DAY No Start Date 11/16/2018 Inactive hydrocortisone 2.5 % topical cream RxNorm: 030190 1 Application TOP BID No Start Date 07/20/2018 Inactive alprazolam 1 mg tablet RxNorm: 540211 2 Tablet(s) PO daily No Start Date 12/14/2017 Inactive tramadol 50 mg tablet RxNorm: 243957 1-2 Tablet(s) PO Q6 as needed No Start Date 08/17/2018 Inactive Vitamin D2 50,000 un it capsule RxNorm: 8860678 1 Capsule(s) PO QW No Start Date 05/17/2018 Inactive pantoprazole 40 mg t ablet,delayed release RxNorm: 784710 1 Tablet(s) PO BID No Start Date 12/22/2017 Inactive atenolol 50 mg tablet RxNorm: 851281 1 Tablet(s) PO daily No Start Date 07/31/2015 Inactive paroxetine 20 mg tablet RxNorm: 810519 2 Tablet(s) PO QHS No Start Date 07/31/2015 Inactive Medication Administered Medication Codes Instruc tions Start Date Status testosterone cypionate 200 mg/mL intramuscular oil RxNorm: 1727296 1Milliliter 11/15/2018 No longer Active testosterone cypionate 200 mg/mL intramuscular oil RxNorm: 954903 Milliliter 09/28/2018 No longer Active testosterone cypionate 200 mg/mL intramuscular oil RxNorm: 486468 Milliliter 09/16/2018 No longer Active testosterone cypionate 200 mg/mL intramuscular oil RxNorm: 665273 1Milliliter 09/02/2018 No longer Active testosterone cypionate 200 mg/mL intramuscular oil RxNorm: 348518 Milliliter 08/19/2018 No longer Active testosterone cypionate 200 mg/mL intramuscular oil RxNorm: 867197 Milliliter 07/15/2018 No longer Active testosterone cypionate 200 mg/mL intramuscular oil RxNorm: 084078 Milliliter 06/17/2018 No longer Active testosterone cypionate 200 mg/mL intramuscular oil RxNorm: 222479 Milliliter 05/21/2018 No longer Active ceftriaxone 500 mg solution for injection RxNorm: 0948779 08/03/2015 No longer A ctive Immunizations Vaccine Codes Date Status Influenza CVX: 141 08/02 completed Tetanus, Diptheria, Pertussis CVX: 113 05/16/2011 completed Tetanus/Diptheria CVX: 113 05/16/2011 completed Assessments Condition Codes Effectiv e Dates 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 ICD-9: 257.2 11/15/2018 Cervicalgia ICD-10: M54.2 ICD-9: 723.1 11/01/2018 Essential (primary) hypertension ICD -10: I10 ICD-9: 401.1 11/01/2018 Spinal stenosis, thoracic region ICD -10: M48.04 ICD-9: 724.01 11/01/2018 Other allergic rhinitis ICD-10: J30. 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 ICD-9: 377.41 05/10/2018 Obstructive sleep apnea (adult) (pediatric) ICD-10: [...] Item Item Code Result Date Testosterone Serum 999539 TESTOSTERONE 44.1 ng/dL 08/18/2018 Hemoglobin 987693 WBC 7.62 thou/uL 08/17/2018 Hemoglobin 871371 RBC 5.23 mil/uL 08/17/2018 Hemoglobin 199130 HEMOGL OBIN 15.0 g/dL 08/17/2018 Hemoglobin 302987 HEMATO CRIT 45.0 % 08/17/2018 Hemoglobin 952444 MCV 86.0 fL 08/17/2018 Hemoglobin 861662 MCH 28.7 pg 08/17/2018 Hemoglobin 638809 MCHC 33.3 g/dL 08/17/2018 Hemoglobin 927719 RDW-CV 12.9 % 08/17/2018 Hemoglobin 118863 PLATEL ET COUNT 313 thou/uL 08/17/2018 Hematocrit 939306 WBC 7.62 thou/uL 08/17/2018 Hematocrit 001637 RBC 5.23 mil/uL 08/17/2018 Hematocrit 179229 HEMOGL OBIN 15.0 g/dL 08/17/2018 Hematocrit 014978 HEMATO CRIT 45.0 % 08/17/2018 Hematocrit 236393 MCV 86.0 fL 08/17/2018 Hematocrit 082588 MCH 28.7 pg 08/17/2018 Hematocrit 602999 MCHC 33.3 g/dL 08/17/2018 Hematocrit 339660 RDW-CV 12.9 % 08/17/2018 Hematocrit 198535 PLATEL ET COUNT 313 thou/uL 08/17/2018 Culture Mrsa 522100 MRSA CULTURE SEE NOTES 06/21/2018 Comp. Metabolic Panel (14) 83060 GLUCOSE 101 mg/dL 06/18/2018 Comp. Metabolic Panel (14) 31958 BUN 18 mg/dL 06/18/2018 Comp. Metabolic Panel (14) 62981 CREATININE 0.99 mg/dL 06/18/2018 Comp. Metabolic Panel (14) 69424 SODIUM 141 mmol/L 06/18/2018 Comp. Metabolic Panel (14) 96740 POTASSIUM 4.3 mmol/L 06/18/2018 Comp. Metabolic Panel (14) 92507 CHLORIDE 103 mmol/L 06/18/2018 Comp. Metabolic Panel (14) 92610 CARBON DIOXIDE 23 mmol/L 06/18/2018 Comp. Metabolic Panel (14) 10332 CALCIUM 9.8 mg/dL 06/18/2018 Comp. Metabolic Panel (14) 50585 TOTAL PROTEIN 7.1 g/dL 06/18/2018 Comp. Metabolic Panel (14) 89374 ALBUMIN 5.2 g/dL 06/18/2018 Comp. Metabolic Panel (14) 30497 ALKALINE PHOSPHATASE 65 U/L 06/18/2018 Comp. Metabolic Panel (14) 40279 TOTAL BILIRUBIN 0.6 mg/dL 06/18/2018 Comp. Metabolic Panel (14) 59531 SGOT (AST) 21 U/L 06/18/2018 Comp. Metabolic Panel (14) 23795 SGPT (ALT) 24 U/L 06/18/2018 Comp. Metabolic Panel (14) 20345 eGFR (mL/min/1.73m2) 115 06/18/2018 Comp. Metabolic Panel (14) 02689 INTERPRETATION 06/18/2018 Cbc With Differential/Platelet 97592 WBC 4.55 thou/uL 8 Cbc With Differential/Platelet 15053 RBC 5.13 mil/uL 06/18/2018 Cbc With Differential/Platelet 80326 HEMOGLOBIN 14.4 g/dL 06/18/2018 Cbc With Differential/Platelet 83378 HEMATOCRIT 44.1 % 06/18/2018 Cbc With Differential/Platelet 77506 MCV 85.9 fL 06/18/2018 Cbc With Differential/Platelet 07097 MCH 28.1 pg 06/18/2018 Cbc With Differential/Platelet 11170 MCHC 32.7 g/dL 06/18/2018 Cbc With Differential/Platelet 41484 RDW-CV 13.4 % 06/18/2018 Cbc With Differential/Platelet 75248 PLATELET COUNT 287 thou/uL 06/18/2018 Cbc With Differential/Platelet 78323 NEUTROPHIL % 53.9 % 06/18/2018 Cbc With Differential/Platelet 44825 LYMPHOCYTE % 36.1 % 06/18/2018 Cbc With Differential/Platelet 84501 MONOCYTE % 7.4 % 06/18/2018 Cbc With Differential/Platelet 95883 EOS % 1.9 % 06/18/2018 Cbc With Differential/Platelet 59020 BASO % 0.8 % 06/18/2018 Cbc With Differential/Platelet 46690 NEUTROPHIL ABS # 2.45 thou/uL 06/18/2018 Cbc With Differential/Platelet 30593 LYMPH ABS # 1.64 thou/uL 06/18/2018 Cbc With Differential/Platelet 08165 MONOCYTE ABS # 0.34 thou/uL 06/18/2018 Cbc With Differential/Platelet 05279 EOS ABS # 0.09 thou/uL 8 Cbc With Differential/Platelet 30008 BASO ABS # 0.04 thou/uL 06/18/2018 Review [...] Procedure Codes Date THER/PROPH/DIAG INJ SC/IM CPT-4: 63342 11/15/2018 THER/PROPH/DIAG INJ SC/IM CPT-4: 38396 09/28/2018 THER/PROPH/DIAG INJ SC/IM CPT-4: 26780 09/16/2018 THER/PROPH/DIAG INJ SC/IM CPT-4: 38406 09/02/2018 THER/PROPH/DIAG INJ SC/IM CPT-4: 38181 08/19/2018 IMMUNIZATION ADMIN CPT- 4: 90703 08/02/2018 FLU VAC NO PRSV 4 VA L 3 YRS+ CPT-4: 72894 08/02/2018 THER/PROPH/DIAG INJ SC/IM CPT-4: 73539 07/15/2018 THER/PROPH/DIAG INJ SC/IM CPT-4: 85082 06/17/2018 THER/PROPH/DIAG INJ SC/IM CPT-4: 11163 05/21/2018 THER/PROPH/DIAG INJ SC/IM CPT-4: 21799 08/03/2015 ROCEPHIN, PER 250 MG CPT-4: J0696 08/03/2015 Vital Signs Date Vital 11/01/2018 Blood Pressure 1: 146/82 Code: 8480-6 BMI: 36.0 Code: 87575-9 Heart Rate 1: 87 bpm Height: 5'7" SpO2: 98% Weight: 230 lbs 09/24/2018 Blood Pressure 1: 140/82 Code: 8480-6 BMI: 36.0 Code: 34479-8 Heart Rate 1: 86 bpm Height: 5'7" SpO2: 98% Temperature: 37.1 (C ) / 98.7 (F) Weight: 230 lbs 08/16/2018 Blood Pressure 1: 148/82 Code: 8480-6 Blood Pressure 2: 157/92 Code: 8480-6 BMI: 35.9 Code: 27306-4 Heart Rate 1: 72 bpm Height: 5'7" SpO2: 96% Weight: 229 lbs 08/02/2018 Blood Pressure 1: 142/86 Code: 8480-6 BMI: 35.2 Code: 98857-8 Heart Rate 1: 101 bpm Height: 5'7" SpO2: 97% Weight: 225 lbs 05/31/2018 Blood Pressure 1: 134/82 Code: 8480-6 BMI: 35.4 Code: 48935-4 Heart Rate 1: 91 bpm Height: 5'7" SpO2: 96% Weight: 226 lbs 05/20/2018 Blood Pressure 1: 160/100 Code: 8480-6 BMI: 35.2 Code: 71019-6 Heart Rate 1: 89 bpm Height: 5'7" SpO2: 98% Weight: 225 lbs 05/10/2018 Blood Pressure 1: 124/70 Code: 8480-6 BMI: 35.1 Code: 24735-2 Heart Rate 1: 93 bpm Height: 5'7" SpO2: 99% Weight: 224 lbs 01/15/2018 Blood Pressure 1: 142/92 Code: 8480-6 BMI: 36.3 Code: 77988-4 Heart Rate 1: 77 bpm Height: 5'7" SpO2: 98% Weight: 232 lbs 12/15/2017 Blood Pressure 1: 156/98 Code: 8480-6 BMI: 36.2 Code: 18222-0 Heart Rate 1: 87 bpm Height: 5'7" [...] eye 01/15/2018 None vision change Quality ac [place] 01/15/2018 None vision change Quality lo ss [...] vision 12/15/2017 None vision change Quality ac [place] 12/15/2017 None vision change Onset and Resolution sudden in onset 12/15/2017 None vision change Onset of Symptom 3.5 weeks ago 12/15/2017 None vision change Limitation on Activities severely limits vision 12/15/2017 None vision change Triggers n o known associated factors 12/15/2017 None Advance Directives No Advance Directive data Encounters Encounter Performer Loca tion Codes Date ([id number]) 21054 EST. P ATIENT, LEVEL IV Diagnosis: Essential (primary) hypertension[ICD10: I10] Diagnosis: Cervicalgia[ICD10: M54.2] Diagnosis: Spinal stenosis, thoracic region[ICD10: M48.04] Diagnosis: Testicular hypofunction[ICD10: E29.1] [facility] CPT-4: 10259 11/01/2018 [id number] EST. PATIENT, LEVEL III Diagnosis: Acute upper respiratory infection, unspecified[ICD10: J06.9] Diagnosis: Other allergic rhinitis[ICD10: J30.89] [facility] CPT-4: 41368 09/24/2018 ([id number] [id number] EST. P ATIENT, LEVEL III Diagnosis: Essential (primary) hypertension[ICD10: I10] Diagnosis: Testicular hypofunction[ICD10: E29.1] Radha Gonzalez MD, [facility] CPT-4: 78886 08/16/2018 ([id number]) 32831 EST. P ATIENT, LEVEL IV Diagnosis: Essential (primary) hypertension[ICD10: I10] Diagnosis: Testicular hypofunction[ICD10: E29.1] Diagnosis: Spinal stenosis, thoracic region[ICD10: M48.04] Diagnosis: Rash and other nonspecific skin eruption[ICD10: R21] Diagnosis: VACCIN FOR INFLUENZA[ICD10: Z23] Radha Gonzalez MD, [facility] CPT-4: 26945 08/02/2018 ([id number]) 30150 EST. P ATIENT, LEVEL IV Diagnosis: Essential (primary) hypertension[ICD10: I10] Diagnosis: Cervicalgia[ICD10: M54.2] Radha Gonzalez MD, [facility] CPT-4: 85619 05/31/2018 ([id number]) 39461 EST. P ATIENT, LEVEL IV Diagnosis: Spinal stenosis, cervical region[ICD10: M48.02] Diagnosis: Spinal stenosis, thoracic region[ICD10: M48.04] Diagnosis: Essential (primary) hypertension[ICD10: I10] Diagnosis: Testicular hypofunction[ICD10: E29.1] Hannah Gonzalez MD, [facility] CPT-4: 05416 05/20/2018 [id number] EST. PATIENT, LEVEL III Diagnosis: Ischemic optic neuropathy, left eye[ICD10: H47.012] Diagnosis: Essential (primary) hypertension[ICD10: I10] Diagnosis: Decreased libido[ICD10: R68.82] Diagnosis: Other malaise[ICD10: R53.81] Diagnosis: Other fatigue[ICD10: R53.83] Diagnosis: Cervicalgia[ICD10: M54.2] Diagnosis: Pain in thoracic spine[ICD10: M54.6] Sonia Gonzalez MD, [facility] CPT- 4: 06875 05/10/2018 ([id number]) 49224 EST. 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] Diagnosis: Obstructive sleep apnea (adult) (pediatric)[ICD10: G47.33] [facility] CPT-4: 35755 01/15/2018 ([id number]) PREV VISIT N EW AGE 40-64 Diagnosis: Encounter for general adult medical examination with abnormal findings[ICD10: Z00.01] Radha Gonzalez MD, [facility] CPT-4: 55743 12/15/2017 ([id number]) OFFICE/OUTPA TIENT VISIT NEW Diagnosis: Laceration of thumb[ICD9: 883.0] [facility] CPT-4: 97406 08/03/2015 Plan of Care Planned Activity Notes [...] as needed. 11/01/2018 Appointment: Rad[facility] Gonzalez WPtel[id number] (15 min) Moderate 11/01/2018 Patient Education: [...] allergy spray. 09/24/2018 Appointment: [facility] Potter [facility]el[id number] [place] (15 min) Moderate 09/24/2018 Patient Education: [...] at home. Multiple symptoms - referral to [facility] - appt in September 30, 2018. 08/16/2018 Appointment: Radha Gonzalez WPtel: [phone] [id number] [place] (15 min) Moderate 08/16/2018 Patient [...] at home. Multiple symptoms - referral to [facility] - rashes, hypogonadism, optic neuritis - all points to possible autoimmune syndrome. Spinal stenosis - of thoracic region - pt to talk to Dr. Dunaway about referral to a different specialist for his mid- back. Hypogonadism - continue with testosterone. Flu shot given today in clinic. 08/02/2018 Appointment: Radha Gonzalez WPtel: [phone] [id number] [place] ([place] Moderate 08/02/2018 Patient Education: Patient Medication Summary Completed 08/02/2018 Care Plan: Referral Order SNOMED-CT : [id number] Pending 08/02/2018 Appointment: Injection 07/15/2018 Patient Education: [...] home. Cervical spine stenosis - referral to [facility] physical therapy. I have also recommended a Referral to Dr. Dunaway. I have called and talked to Dr. Dunaway - he looked at the pt's imaging and agrees that getting the pt in to be seen soon would be a preferred option. 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 05/10/2018 Appointment: Sonia Potter WPtel: [facility] [[email or web address]] (15 min) Moderate 05/10/2018 Patient Education: Patient Medication Summary Completed 05/10/2018 Visit Plan: Sleep apnea - rx for cp ap - actually autopap was recommended and pt given rx today. HTN - referral to dr. kapoor - pt needs stress testing. 01/15/2018 Appointment: Radha Gonzalez WPtel: [phone] [facility] [[email or web address]] (15 min) Moderate 01/15/2018 Patient Education: Patient Medication Summary Completed 01/15/2018 Care Plan: Referral Order SNOMED-CT : [id number] Pending 01/15/2018 Visit Plan: Well Adult - [...] one month. 12/15/2017 Appointment: Radha Gonzalez WPtel: [facility] New Patient 12/15/2017 Patient Education: Patient Medication Summary Completed 12/15/2017 Care Plan: CHEST X-RAY 2VW FRONTAL&LATL LOINC : 70892-3 Pending 12/15/2017 Appointment: Rad[facility] Gonzalez [facility]el[phone] (15 min) Moderate 12/08/2017 Appointment: [...] Ordering Provider 08/03 Referral info faxed to [place]. Patient informed to be expecting a call from them with appt info Appointment Requested Referral: External, Ordering Provider Referral Appointment Requested Referral: External, Ordering Provider I called today; they will call him to schedule. Completed Referral: Armani Dunaway Referral Appointment Requested Referral: Mayte Kapoor Referral Appointment Requested Referral: [phone] [facility] Requested Referral: External, Ordering [...] at home. Multiple symptoms - referral to [facility] - rashes, hypogonadism, optic neuritis [...] at home. Multiple symptoms - referral to [facility] - appt in September 30, [...]
--- OUTSIDE RECORDS SUMMARY | 2020-04-28 00:53 | XMS REPORT | CCD ---
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 Name Role Phone PP Unavailable CCM Unavailable Summary Purpose Interface Exchange Insurance Providers Payer name Policy type / Coverage type Covered democrat ID Effective Begin Date Effective End Date CORESOURCES Commercial Insurance [id number] 2017 Unknown Family history Brother Diagnosis Age At Onset Alcoholism Unknown Father Diagnosis Age At Onset Hypercholesterolemia Unknown Social History Social History Element Codes Description Effective Dates Marital status Unknown S chanda 12/15/2017 Number of children Unknown 1 12/15/2017 Employment 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 12/15/[address]: 398271422 Never smoker 12/15/[address]: 877771 Currently drinks alcohol <1 per week 12/15/2017 [...] 5 mg-fanny taminophen 325 mg tablet RxNorm: 583325 1 Tablet(s) PO TID WA N 11/29/2018 No Stop Date Active Adderall 30 mg tablet RxNorm: 338958 2 Tablet(s) PO daily 11/29/2018 12/28/2018 Active clindamycin 1 %-arthur oyl peroxide 5 % topical gel RxNorm: 628660 TOP APPLY TO AFFECTED AREA(S) ON SERNA TWO TIMES A DAY 11/17/2018 No Stop Date Active testosterone cypiona te 200 mg/mL intramuscular oil RxNorm: 3516544 1 Milliliter(s) IM 2 x month 11/17/2018 03/16/2019 Active Zorvolex 35 mg capsule RxNorm: 2021014 1 Capsule(s) PO TID as needed for pain 11/15/2018 05/13/2019 Ac tive ketoconazole 2 % top ical cream RxNorm: 676296 APPLY ONE GRAM TOPICA LLY TWICE A DAY 11/15/2018 11/29/2018 In active testosterone cypiona te 200 mg/mL intramuscular oil RxNorm: 8948529 1 Milliliter(s) IM 11/15/2018 11/14/2018 Inactive hydrocodone 5 mg-fanny taminophen 325 mg tablet RxNorm: 239172 1 Tablet(s) PO TID WA N 11/02/2018 11/28/2018 In active Singulair 10 mg tablet RxNorm: 300437 1 Tablet(s) PO daily 11/01/2018 07/28/2019 Active testosterone cypiona te 200 mg/mL intramuscular oil RxNorm: 6798286 1 Milliliter(s) IM 2 x month 11/01/2018 11/16/2018 Inactive Adderall 30 mg tablet RxNorm: 441476 2 Tablet(s) PO daily 10/29/2018 11/27/2018 Inactive gabapentin 300 mg ca psule RxNorm: 162527 1 Capsule(s) PO BID m ay take TID 10/19/2018 02/15/2019 Ac tive gabapentin 300 mg ca psule RxNorm: 530804 1 Capsule(s) PO BID m ay take TID 10/19/2018 10/18/2018 In active alprazolam 1 mg tablet RxNorm: 918510 1 Tablet(s) PO TID as needed 10/15/2018 12/13/2018 Active testosterone cypiona te 200 mg/mL intramuscular oil RxNorm: 289166 Milliliter(s) IM 09/28/2018 09/28/2018 In active pravastatin 40 mg ta blet RxNorm: 279344 TAKE ONE TABLET BY [facility] EVERY NIGHT AT BEDTIME 09/27/2018 09/21/2019 Active Tamiflu 75 mg capsule RxNorm: 762925 1 Capsule(s) PO BID 09/24/2018 09/28/2018 Inactive Adderall 30 mg tablet RxNorm: 671782 2 Tablet(s) PO daily 09/20/2018 10/19/2018 Inactive hydrocodone 5 mg-fanny taminophen 325 mg tablet RxNorm: 976086 1 Tablet(s) PO TID WA N 09/20/2018 11/01/2018 In active testosterone cypiona te 200 mg/mL intramuscular oil RxNorm: 491131 Milliliter(s) IM 09/16/2018 09/16/2018 In active testosterone cypiona te 200 mg/mL intramuscular oil RxNorm: 180038 1 Milliliter(s) IM 09/02/2018 09/02/2018 Inactive testosterone cypiona te 200 mg/mL intramuscular oil RxNorm: 213287 Milliliter(s) IM 08/19/2018 08/19/2018 In active tramadol 50 mg tablet RxNorm: 051143 1-2 Tablet(s) PO Q6 as needed 08/18/2018 No Stop Date Active Adderall 30 mg tablet RxNorm: 589811 2 Tablet(s) PO daily 08/18/2018 09/16/2018 Inactive Dexilant 60 mg capsu le, delayed release RxNorm: 950046 1 Capsule(s) PO BID 08/17/2018 08/11/2019 Ac tive atenolol 50 mg tablet RxNorm: 531107 1 Tablet(s) PO BID 08/17/2018 08/11/2019 Active ketoconazole 2 % top ical cream RxNorm: 837162 1 Gram(s) TOP BID 08/17/2018 08/26/2018 Inactive Zorvolex 35 mg capsule RxNorm: 6604155 1 Capsule(s) PO TID as needed for pain 08/17/2018 08/16/2018 In active Zorvolex 35 mg capsule RxNorm: 6871991 1 Capsule(s) PO TID as needed for pain 08/17/2018 11/14/2018 In active ketoconazole 2 % top ical cream RxNorm: 172508 1 Gram(s) TOP BID 08/02/2018 08/11/2018 Inactive hydrocortisone 2.5 % topical cream RxNorm: 526744 1 Application TOP BID 07/21/2018 No Stop Date Active Adderall 30 mg tablet RxNorm: 570573 2 Tablet(s) PO daily 07/20/2018 08/17/2018 Inactive testosterone cypiona te 200 mg/mL intramuscular oil RxNorm: 256804 Milliliter(s) IM 07/15/2018 07/15/2018 In active alprazolam 1 mg tablet RxNorm: 298788 1 Tablet(s) PO TID as needed 07/12/2018 09/07/2018 Inactive hydrocodone 5 mg-fanny taminophen 325 mg tablet RxNorm: 770572 1 Tablet(s) PO TID WA N 06/30/2018 09/19/2018 In active pravastatin 40 mg ta blet RxNorm: 244676 1 Tablet(s) PO QHS 06/18/2018 09/15/2018 Inactive Adderall 30 mg tablet RxNorm: 233169 2 Tablet(s) PO daily 06/18/2018 07/17/2018 Inactive testosterone cypiona te 200 mg/mL intramuscular oil RxNorm: 344869 Milliliter(s) IM 06/17/2018 06/17/2018 In active Voltaren 1 % topical gel RxNorm: 498356 APPLY TOPICALLY TWO T IMES A DAY 06/16/2018 07/21/2018 In active Vitamin D2 50,000 un it capsule RxNorm: 0396305 1 Capsule(s) PO QW 05/21/2018 No Stop Date Active Adderall 30 mg tablet RxNorm: 045263 2 Tablet(s) PO daily 05/21/2018 06/17/2018 Inactive testosterone cypiona te 200 mg/mL intramuscular oil RxNorm: 956747 Milliliter(s) IM 05/21/2018 05/21/2018 In active testosterone cypiona te 200 mg/mL intramuscular oil RxNorm: 7126854 1 Milliliter(s) IM monthly 05/20/2018 09/16/2018 Inactive testosterone cypiona te 200 mg/mL intramuscular oil RxNorm: 786383 1 Milliliter(s) IM monthly 05/20/2018 05/19/2018 Inactive hydrocodone 5 mg-fanny taminophen 325 mg tablet RxNorm: 070383 1 Tablet(s) PO TID WA N 05/20/2018 06/29/2018 In active Vitamin D2 50,000 un it capsule RxNorm: 6922388 1 Capsule(s) PO QW 05/18/2018 05/20/2018 Inactive triamcinolone aceton destin 0.025 % topical cream RxNorm: 4631038 1 Application TOP BI D 05/13/2018 No Stop Date Active Dexilant 60 mg capsu le, delayed release RxNorm: 733538 1 Capsule(s) PO BID 05/13/2018 08/16/2018 In active Zorvolex 35 mg capsule RxNorm: 2187056 1 Capsule(s) PO TID as needed for pain 05/12/2018 08/09/2018 In active Voltaren 1 % topical gel RxNorm: 712862 1 Application TOP BID 05/12/2018 06/15/2018 Inactive acyclovir 400 mg tablet RxNorm: 736165 1 Tablet(s) PO TID as needed take at ons et of symptoms of cold sores x 5 days 05/10/2018 No Stop Date Active paroxetine 20 mg tablet RxNorm: 7149045 2 Tablet(s) PO QHS 05/10/2018 10/31/2019 Active ProAir HFA 90 mcg/ac tuation aerosol inhaler RxNorm: 087966 1 Puff(s) INH QID as needed 05/10/2018 No Stop Date Active trazodone 100 mg tablet RxNorm: 777380 1 Tablet(s) PO QHS 05/10/2018 11/05/2018 Inactive baclofen 20 mg tablet RxNorm: 559523 1 Tablet(s) PO TID as needed muscle spas ms 05/10/2018 06/08/2018 In active Singulair 10 mg tablet RxNorm: 201637 1 Tablet(s) PO daily 05/10/2018 08/07/2018 Inactive atenolol 50 mg tablet RxNorm: 821271 1 Tablet(s) PO BID 05/10/2018 08/07/2018 Inactive triamcinolone aceton destin 0.025 % topical cream RxNorm: 6198465 1 Application TOP BI D 05/10/2018 05/12/2018 In active tramadol 50 mg tablet RxNorm: 447223 1 Tablet(s) PO TID as needed 05/10/2018 05/19/2018 Inactive Dexilant 60 mg capsu le, delayed release RxNorm: 333566 1 Capsule(s) PO daily 05/10/2018 05/12/2018 In active alprazolam 1 mg tablet RxNorm: 023218 1 Tablet(s) PO TID as needed 05/10/2018 08/06/2018 Inactive cyclobenzaprine 10 m g tablet RxNorm: 114999 1 Tablet(s) PO TID as needed muscle spasms 05/07/2018 07/12/2018 Inactive trazodone 100 mg tablet RxNorm: 878353 1 Tablet(s) PO QHS 05/07/2018 05/09/2018 Inactive Adderall 30 mg tablet RxNorm: 273929 2 Tablet(s) PO daily 04/19/2018 05/18/2018 Inactive alprazolam 1 mg tablet RxNorm: 211498 1 Tablet(s) PO BID 04/19/2018 05/09/2018 Inactive Adderall 30 mg tablet RxNorm: 228921 2 Tablet(s) PO daily 03/26/2018 04/18/2018 Inactive paroxetine 20 mg tablet RxNorm: 7066363 2 Tablet(s) PO QHS 03/15/2018 05/09/2018 Inactive Adderall 30 mg tablet RxNorm: 689654 2 Tablet(s) PO daily 02/25/2018 03/25/2018 Inactive cyclobenzaprine 10 m g tablet RxNorm: 136744 1 Tablet(s) PO TID as needed muscle spasms 02/22/2018 05/06/2018 Inactive tramadol 50 mg tablet RxNorm: 423434 1 Tablet(s) PO TID as needed 02/22/2018 03/07/2018 Inactive tramadol 50 mg tablet RxNorm: 188941 1 Tablet(s) PO TID as needed 02/22/2018 02/21/2018 Inactive trazodone 100 mg tablet RxNorm: 678718 1 Tablet(s) PO QHS 02/03/2018 05/03/2018 Inactive trazodone 100 mg tablet RxNorm: 076680 1 Tablet(s) PO QHS 02/03/2018 02/02/2018 Inactive Adderall 30 mg tablet RxNorm: 849541 2 Tablet(s) PO daily 01/27/2018 02/18/2018 Inactive acyclovir 400 mg tablet RxNorm: 696859 1 Tablet(s) PO TID as needed take at ons et of symptoms of cold sores x 5 days 01/15/2018 05/09/2018 Inactive Bactrim DS 800 mg-16 0 mg tablet RxNorm: 665169 1 Tablet(s) PO BID 01/11/2018 01/17/2018 Inactive Bactrim DS 800 mg-16 0 mg tablet RxNorm: 158205 1 Tablet(s) PO BID 01/11/2018 01/10/2018 Inactive Dexilant 60 mg capsu le, delayed release RxNorm: 979939 1 Capsule(s) PO daily 12/23/2017 05/09/2018 In active Dexilant 60 mg capsu le, delayed release RxNorm: 261685 1 Capsule(s) PO daily 12/23/2017 12/22/2017 In active atenolol 50 mg tablet RxNorm: 337261 1 Tablet(s) PO BID 12/15/2017 05/09/2018 Inactive alprazolam 1 mg tablet RxNorm: 286206 1-1.5 Tablet(s) PO daily 12/15/2017 04/18/2018 Inactive ceftriaxone 500 mg s olution for injection RxNorm: 1672322 Inj 08/03/2015 08/03/2015 Inactive paroxetine 20 mg tablet RxNorm: 3205050 2 Tablet(s) PO QHS 08/01/2015 10/29/2015 Inactive pravastatin 40 mg ta blet RxNorm: 808698 1/2 Tablet(s) PO QHS 08/01/2015 12/14/2017 Inactive Trazadone 100mg 100 mg RxNorm: 1 PO daily 08/01/2015 11/27/2015 Inactive Trazadone 100mg 100 mg RxNorm: 1 PO daily 08/01/2015 05/04/2018 Inactive atenolol 50 mg tablet RxNorm: 059673 1 Tablet(s) PO daily 08/01/2015 10/29/2015 Inactive ibuprofen 800 mg tablet RxNorm: 418236 1 Tablet(s) PO BID -TID No Start Date Active Zyrtec 10 mg tablet RxNorm: 5811524 1 Tablet(s) PO daily No Start Date Active pravastatin 40 mg ta blet RxNorm: 576080 1/2 Tablet(s) PO QHS No Start Date 07/31/2015 Inactive Benadryl Allergy 25 mg tablet RxNorm: 4807792 1 Tablet(s) PO daily No Start Date 07/19/2018 Inactive Adderall 30 mg tablet RxNorm: 091896 2 Tablet(s) PO daily No Start Date 01/26/2018 Inactive Aspirin Low Dose 81 mg tablet,delayed release RxNorm: 565294 1 Tablet(s) PO BID No Start Date 07/19/2018 Inactive Singulair 10 mg tablet RxNorm: 716090 1 Tablet(s) PO daily No Start Date 05/09/2018 Inactive cyclobenzaprine 10 m g tablet RxNorm: 467176 1 Tablet(s) PO TID as needed muscle spasms No Start Date 02/21/2018 Inactive Trazadone 100mg 100 mg RxNorm: 1 PO daily No Start Date 07/31/2015 Inactive clindamycin 1 %-arthur oyl peroxide 5 % topical gel RxNorm: 918971 TOP APPLY TO AFFECTED AREA(S) ON SERNA TWO TIMES A DAY No Start Date 11/16/2018 Inactive hydrocortisone 2.5 % topical cream RxNorm: 503348 1 Application TOP BID No Start Date 07/20/2018 Inactive alprazolam 1 mg tablet RxNorm: 738556 2 Tablet(s) PO daily No Start Date 12/14/2017 Inactive tramadol 50 mg tablet RxNorm: 299583 1-2 Tablet(s) PO Q6 as needed No Start Date 08/17/2018 Inactive Vitamin D2 50,000 un it capsule RxNorm: 9952501 1 Capsule(s) PO QW No Start Date 05/17/2018 Inactive pantoprazole 40 mg t ablet,delayed release RxNorm: 546079 1 Tablet(s) PO BID No Start Date 12/22/2017 Inactive atenolol 50 mg tablet RxNorm: 530347 1 Tablet(s) PO daily No Start Date 07/31/2015 Inactive paroxetine 20 mg tablet RxNorm: 728744 2 Tablet(s) PO QHS No Start Date 07/31/2015 Inactive Medication Administered Medication Codes Instruc tions Start Date Status testosterone cypionate 200 mg/mL intramuscular oil RxNorm: 8316962 1Milliliter 11/15/2018 No longer Active testosterone cypionate 200 mg/mL intramuscular oil RxNorm: 376031 Milliliter 09/28/2018 No longer Active testosterone cypionate 200 mg/mL intramuscular oil RxNorm: 561622 Milliliter 09/16/2018 No longer Active testosterone cypionate 200 mg/mL intramuscular oil RxNorm: 777530 1Milliliter 09/02/2018 No longer Active testosterone cypionate 200 mg/mL intramuscular oil RxNorm: 591528 Milliliter 08/19/2018 No longer Active testosterone cypionate 200 mg/mL intramuscular oil RxNorm: 473668 Milliliter 07/15/2018 No longer Active testosterone cypionate 200 mg/mL intramuscular oil RxNorm: 994535 Milliliter 06/17/2018 No longer Active testosterone cypionate 200 mg/mL intramuscular oil RxNorm: 844598 Milliliter 05/21/2018 No longer Active ceftriaxone 500 mg solution for injection RxNorm: 6984134 08/03/2015 No longer A ctive Immunizations Vaccine [...] Item Item Code Result Date Testosterone Serum 375126 TESTOSTERONE 44.1 ng/dL 08/18/2018 Hemoglobin 081500 WBC 7.62 thou/uL 08/17/2018 Hemoglobin 105717 RBC 5.23 mil/uL 08/17/2018 Hemoglobin 108199 HEMOGL OBIN 15.0 g/dL 08/17/2018 Hemoglobin 632681 HEMATO CRIT 45.0 % 08/17/2018 Hemoglobin 530604 MCV 86.0 fL 08/17/2018 Hemoglobin 756131 MCH 28.7 pg 08/17/2018 Hemoglobin 611797 MCHC 33.3 g/dL 08/17/2018 Hemoglobin 460556 RDW-CV 12.9 % 08/17/2018 Hemoglobin 418529 PLATEL ET COUNT 313 thou/uL 08/17/2018 Hematocrit 170695 WBC 7.62 thou/uL 08/17/2018 Hematocrit 174716 RBC 5.23 mil/uL 08/17/2018 Hematocrit 470042 HEMOGL OBIN 15.0 g/dL 08/17/2018 Hematocrit 892819 HEMATO CRIT 45.0 % 08/17/2018 Hematocrit 928108 MCV 86.0 fL 08/17/2018 Hematocrit 373585 MCH 28.7 pg 08/17/2018 Hematocrit 959829 MCHC 33.3 g/dL 08/17/2018 Hematocrit 812116 RDW-CV 12.9 % 08/17/2018 Hematocrit 200204 PLATEL ET COUNT 313 thou/uL 08/17/2018 Culture Mrsa 368840 MRSA CULTURE SEE NOTES 06/21/2018 Comp. Metabolic Panel (14) 89348 GLUCOSE 101 mg/dL 06/18/2018 Comp. Metabolic Panel (14) 19878 BUN 18 mg/dL 06/18/2018 Comp. Metabolic Panel (14) 26603 CREATININE 0.99 mg/dL 06/18/2018 Comp. Metabolic Panel (14) 89012 SODIUM 141 mmol/L 06/18/2018 Comp. Metabolic Panel (14) 64787 POTASSIUM 4.3 mmol/L 06/18/2018 Comp. Metabolic Panel (14) 96479 CHLORIDE 103 mmol/L 06/18/2018 Comp. Metabolic Panel (14) 55938 CARBON DIOXIDE 23 mmol/L 06/18/2018 Comp. Metabolic Panel (14) 88299 CALCIUM 9.8 mg/dL 06/18/2018 Comp. Metabolic Panel (14) 23825 TOTAL PROTEIN 7.1 g/dL 06/18/2018 Comp. Metabolic Panel (14) 40006 ALBUMIN 5.2 g/dL 06/18/2018 Comp. Metabolic Panel (14) 84129 ALKALINE PHOSPHATASE 65 U/L 06/18/2018 Comp. Metabolic Panel (14) 15184 TOTAL BILIRUBIN 0.6 mg/dL 06/18/2018 Comp. Metabolic Panel (14) 38163 SGOT (AST) 21 U/L 06/18/2018 Comp. Metabolic Panel (14) 50753 SGPT (ALT) 24 U/L 06/18/2018 Comp. Metabolic Panel (14) 14828 eGFR (mL/min/1.73m2) 115 06/18/2018 Comp. Metabolic Panel (14) 15757 INTERPRETATION 06/18/2018 Cbc With Differential/Platelet 82838 WBC 4.55 thou/uL 8 Cbc With Differential/Platelet 08920 RBC 5.13 mil/uL 06/18/2018 Cbc With Differential/Platelet 60656 HEMOGLOBIN 14.4 g/dL 06/18/2018 Cbc With Differential/Platelet 55028 HEMATOCRIT 44.1 % 06/18/2018 Cbc With Differential/Platelet 87912 MCV 85.9 fL 06/18/2018 Cbc With Differential/Platelet 85547 MCH 28.1 pg 06/18/2018 Cbc With Differential/Platelet 30867 MCHC 32.7 g/dL 06/18/2018 Cbc With Differential/Platelet 47451 RDW-CV 13.4 % 06/18/2018 Cbc With Differential/Platelet 87168 PLATELET COUNT 287 thou/uL 06/18/2018 Cbc With Differential/Platelet 72648 NEUTROPHIL % 53.9 % 06/18/2018 Cbc With Differential/Platelet 49269 LYMPHOCYTE % 36.1 % 06/18/2018 Cbc With Differential/Platelet 17760 MONOCYTE % 7.4 % 06/18/2018 Cbc With Differential/Platelet 08038 EOS % 1.9 % 06/18/2018 Cbc With Differential/Platelet 16462 BASO % 0.8 % 06/18/2018 Cbc With Differential/Platelet 21717 NEUTROPHIL ABS # 2.45 thou/uL 06/18/2018 Cbc With Differential/Platelet 84267 LYMPH ABS # 1.64 thou/uL 06/18/2018 Cbc With Differential/Platelet 47622 MONOCYTE ABS # 0.34 thou/uL 06/18/2018 Cbc With Differential/Platelet 51182 EOS ABS # 0.09 thou/uL 8 Cbc With Differential/Platelet 47459 BASO ABS # 0.04 thou/uL 06/18/2018 Review [...] Procedure Codes Date THER/PROPH/DIAG INJ SC/IM CPT-4: 06392 11/15/2018 THER/PROPH/DIAG INJ SC/IM CPT-4: 20198 09/28/2018 THER/PROPH/DIAG INJ SC/IM CPT-4: 44146 09/16/2018 THER/PROPH/DIAG INJ SC/IM CPT-4: 13776 09/02/2018 THER/PROPH/DIAG INJ SC/IM CPT-4: 52048 08/19/2018 IMMUNIZATION ADMIN CPT- 4: 76848 08/02/2018 FLU VAC NO PRSV 4 VA L 3 YRS+ CPT-4: 50305 08/02/2018 THER/PROPH/DIAG INJ SC/IM CPT-4: 23207 07/15/2018 THER/PROPH/DIAG INJ SC/IM CPT-4: 43745 06/17/2018 THER/PROPH/DIAG INJ SC/IM CPT-4: 36860 05/21/2018 THER/PROPH/DIAG INJ SC/IM CPT-4: 28085 08/03/2015 ROCEPHIN, PER 250 MG CPT-4: J0696 08/03/2015 Vital Signs Date Vital 11/01/2018 Blood Pressure 1: 146/82 Code: 8480-6 BMI: 36.0 Code: 52660-4 Heart Rate 1: 87 bpm Height: 5'7" SpO2: 98% Weight: 230 lbs 09/24/2018 Blood Pressure 1: 140/82 Code: 8480-6 BMI: 36.0 Code: 23205-9 Heart Rate 1: 86 bpm Height: 5'7" SpO2: 98% Temperature: 37.1 (C ) / 98.7 (F) Weight: 230 lbs 08/16/2018 Blood Pressure 1: 148/82 Code: 8480-6 Blood Pressure 2: 157/92 Code: 8480-6 BMI: 35.9 Code: 78619-9 Heart Rate 1: 72 bpm Height: 5'7" SpO2: 96% Weight: 229 lbs 08/02/2018 Blood Pressure 1: 142/86 Code: 8480-6 BMI: 35.2 Code: 69079-7 Heart Rate 1: 101 bpm Height: 5'7" SpO2: 97% Weight: 225 lbs 05/31/2018 Blood Pressure 1: 134/82 Code: 8480-6 BMI: 35.4 Code: 42344-2 Heart Rate 1: 91 bpm Height: 5'7" SpO2: 96% Weight: 226 lbs 05/20/2018 Blood Pressure 1: 160/100 Code: 8480-6 BMI: 35.2 Code: 75628-8 Heart Rate 1: 89 bpm Height: 5'7" SpO2: 98% Weight: 225 lbs 05/10/2018 Blood Pressure 1: 124/70 Code: 8480-6 BMI: 35.1 Code: 96084-9 Heart Rate 1: 93 bpm Height: 5'7" SpO2: 99% Weight: 224 lbs 01/15/2018 Blood Pressure 1: 142/92 Code: 8480-6 BMI: 36.3 Code: 96994-4 Heart Rate 1: 77 bpm Height: 5'7" SpO2: 98% Weight: 232 lbs 12/15/2017 Blood Pressure 1: 156/98 Code: 8480-6 BMI: 36.2 Code: 39501-0 Heart Rate 1: 87 bpm Height: 5'7" [...] eye 01/15/2018 None vision change Quality ac native 01/15/2018 None vision change Quality lo ss [...] vision 12/15/2017 None vision change Quality ac native 12/15/2017 None vision change Onset and Resolution sudden in onset 12/15/2017 None vision change Onset of Symptom 3.5 weeks ago 12/15/2017 None vision change Limitation on Activities severely limits vision 12/15/2017 None vision change Triggers n o known associated factors 12/15/2017 None Advance Directives No Advance Directive data Encounters Encounter Performer Loca tion Codes Date ([id number]) [id number] EST. 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 PATIENT, LEVEL III Diagnosis: Acute upper respiratory infection, unspecified[ICD10: J06.9] Diagnosis: Other allergic rhinitis[ICD10: J30.89] Sonia Gonzalez MD, [facility] CPT-4: 15190 09/24/2018 [id number]) [id number] EST. 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 P ATIENT, LEVEL IV Diagnosis: Essential (primary) hypertension[ICD10: I10] Diagnosis: Cervicalgia[ICD10: M54.2] Radha Gonzalez MD, [facility] CPT-4: 62372 05/31/2018 ([id number]) 62047 EST. 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 11/01/2018 App[facility]ment[facility] [phone] [facility] (15 min) Moderate 11/01/2018 Patient [...] spray. 09/24/2018 Appointment: Sonia Potter [facility]el[facility] [phone] [facility] (15 min) Moderate 09/24/2018 Patient Education: [...] at home. Multiple symptoms - referral to [facility] - appt in September 30, 2018. 08/16/2018 Appointment: Radha Gonzalez WPtel: [phone] [facility] (15 min) Moderate 08/16/2018 [...] at home. Multiple symptoms - referral to [facility] - rashes, hypogonadism, optic neuritis - all points to possible autoimmune syndrome. Spinal stenosis - of thoracic region - pt to talk to Dr. Dunaway about referral to a different specialist for his mid- back. Hypogonadism - continue with testosterone. Flu shot given today in clinic. 08/02/2018 Appointment: Lisa Radha WPtel: [facility] [place] (15 min) Moderate 08/02/2018 Patient Education: Patient Medication Summary Completed 08/02/2018 Care Plan: Referral Order SNOMED-CT : 184613048 Pending 08/02/2018 Appointment: Injection 07/15/2018 Patient Education: [...] [facility]. I have also recommended a Referral to Dr. Dunaway. I have called and talked to Dr. Dunaway - he looked at the pt's imaging and agrees that getting the pt in to be seen soon would be a preferred option. 05/31/2018 Appointment: Radha Gonzalez WPtel: [facility] [facility] (15 min) Moderate 05/31/2018 Patient Education: Patient Medication Summary Completed 05/31/2018 Care Plan: Referral Order SNOMED-CT : 279585065 Pending 05/31/2018 Care Plan: Referral Order SNOMED-CT : 118281564 Pending 05/31/2018 Appointment: Injection 05/21/2018 Patient Education: Patient Medication Summary Completed 05/21/2018 Care Plan: Referral Order SNOMED-CT : 535091943 Pending 05/21/2018 Visit Plan: Cervical and thoracic s tenosis with spinal cord compression -refer for appt with Dr Marr -rx for hydrocodone for pain-start gabapentin at bedtime Soft tissue lesion-left chest-schedule CTfor further evaluation HTN-elevated today-hold adderall-monitor blood pressure 05/20/2018 Appointment: aHnnah Simons WPtel: [facility] (15 min) Moderate 05/20/2018 Patient Education: Patient [...] this. 05/10/2018 Appointment: Sonia Potter WPtel: [facility] [facility] (15 min) Moderate 05/10/2018 Patient Education: Patient Medication Summary Completed 05/10/2018 Visit Plan: Sleep apnea - rx for cp ap - actually autopap was recommended and pt given rx today. HTN - referral to dr. kapoor - pt needs stress testing. 01/15/2018 App[facility]ment: [id number] (15 min) Moderate 01/15/2018 Patient Education: Patient Medication Summary Completed 01/15/2018 Care Plan: Referral Order SNOMED-CT : [id number] Pending 01/15/2018 Visit Plan: Well Adult - [...] month. 12/15/2017 Appointment: Rad[facility] Gonzalez [facility]el[phone] New Patient 12/15/2017 Patient Education: Patient Medication Summary Completed 12/15/2017 Care Plan: CHEST X-RAY 2VW FRONTAL&LATL LOINC : 60659-1 Pending 12/15/2017 Appointment: [facility]el[phone] (15 min) Moderate 12/08/2017 Appointment: (S) New Patient 08/13/2015 Visit Plan: steri strip placed on t humb of right hand - antibiotic shot given to patient and rx for keflex 500mg qid x 10 days given to the patient to fill prior to his trip to [place] 08/03/2015 Patient Education: Patient Medication Summary Completed 08/03/2015 Referral: External, Ordering Provider 08/03 Referral info faxed to [place]. Patient informed to be expecting a call from them with appt info Appointment Requested Referral: External, Ordering Provider Referral Appointment Requested Referral: External, Ordering Provider I called today; they will call him to schedule. Completed Referral: Armani Dunaway Referral Appointment Requested Referral: Mayte Kapoor Referral Appointment Requested Referral[phone] Ref[facility] Appointment Requested Referral: External, Ordering [...] at home. Multiple symptoms - referral to [facility] - rashes, hypogonadism, optic neuritis [...] at home. Multiple symptoms - referral to [facility] - appt in September 30, 2018. . steri strip placed on thumb of right hand - antibiotic shot given to patient and rx for keflex 500mg qid x 10 days given to the patient to fill prior to his trip to [place] will refill meds for 90 days Will [...]
[2020-04-28 00:54] LABS: ALBUMIN 5.5 GM/DL (3.2-4.5)
--- OUTSIDE RECORDS SUMMARY | 2020-04-28 00:54 | XMS REPORT | CCD ---
Author Author Nilton Gonzalez Organization Radha Gonzalez MD, [facility] Address [address] [place] [address] Phone Care Team Providers Care Station Usher Name Role Phone PP Unavailable CCM Unavailable Summary Purpose Interface Exchange Insurance Providers Payer name Policy type / Coverage type Covered libertarian ID Effective Begin Date Effective End Date CORESOURCES Commercial Insurance [id number] 2017 Unknown Family history Brother Diagnosis Age At Onset Alcoholism Unknown Father Diagnosis Age At Onset Hypercholesterolemia Unknown Social History Social History Element Codes Description Effective Dates Marital status Unknown S chanda 12/15/2017 Number of children Unknown 1 12/15/2017 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 [employer] 12/15/[address]: 314806208 Never smoker 12/15/[address]: 340954 Currently drinks alcohol <1 per week 12/15/2017 [...] Date Stop Date Sta tus Fill Instructions clindamycin 1 %-arthur oyl peroxide 5 % topical gel RxNorm: 197567 TOP APPLY TO AFFECTED AREA(S) ON SERNA TWO TIMES A DAY 11/17/2018 No Stop Date Active testosterone cypiona te 200 mg/mL intramuscular oil RxNorm: 8036818 1 Milliliter(s) IM 2 x month 11/17/2018 03/16/2019 Active Zorvolex 35 mg capsule RxNorm: 6306581 1 Capsule(s) PO TID as needed for pain 11/15/2018 05/13/2019 Ac tive ketoconazole 2 % top ical cream RxNorm: 536551 APPLY ONE GRAM TOPICA LLY TWICE A DAY 11/15/2018 11/29/2018 Ac tive testosterone cypiona te 200 mg/mL intramuscular oil RxNorm: 9896523 1 Milliliter(s) IM 11/15/2018 11/14/2018 Inactive hydrocodone 5 mg-fanny taminophen 325 mg tablet RxNorm: 222219 1 Tablet(s) PO TID OH N 11/02/2018 No Stop Date Active Singulair 10 mg tablet RxNorm: 620471 1 Tablet(s) PO daily 11/01/2018 07/28/2019 Active testosterone cypiona te 200 mg/mL intramuscular oil RxNorm: 0029204 1 Milliliter(s) IM 2 x month 11/01/2018 11/16/2018 Inactive Adderall 30 mg tablet RxNorm: 459493 2 Tablet(s) PO daily 10/29/2018 11/27/2018 Active gabapentin 300 mg ca psule RxNorm: 031219 1 Capsule(s) PO BID m ay take TID 10/19/2018 02/15/2019 Ac tive gabapentin 300 mg ca psule RxNorm: 328431 1 Capsule(s) PO BID m ay take TID 10/19/2018 10/18/2018 In active alprazolam 1 mg tablet RxNorm: 019971 1 Tablet(s) PO TID as needed 10/15/2018 12/13/2018 Active testosterone cypiona te 200 mg/mL intramuscular oil RxNorm: 286715 Milliliter(s) IM 09/28/2018 09/28/2018 In active pravastatin 40 mg ta blet RxNorm: 608305 TAKE ONE TABLET BY [facility] EVERY NIGHT AT BEDTIME 09/27/2018 09/21/2019 Active Tamiflu 75 mg capsule RxNorm: 899981 1 Capsule(s) PO BID 09/24/2018 09/28/2018 Inactive Adderall 30 mg tablet RxNorm: 138835 2 Tablet(s) PO daily 09/20/2018 10/19/2018 Inactive hydrocodone 5 mg-fanny taminophen 325 mg tablet RxNorm: 711317 1 Tablet(s) PO TID OH N 09/20/2018 11/01/2018 In active testosterone cypiona te 200 mg/mL intramuscular oil RxNorm: 116101 Milliliter(s) IM 09/16/2018 09/16/2018 In active testosterone cypiona te 200 mg/mL intramuscular oil RxNorm: 379553 1 Milliliter(s) IM 09/02/2018 09/02/2018 Inactive testosterone cypiona te 200 mg/mL intramuscular oil RxNorm: 149120 Milliliter(s) IM 08/19/2018 08/19/2018 In active tramadol 50 mg tablet RxNorm: 847870 1-2 Tablet(s) PO Q6 as needed 08/18/2018 No Stop Date Active Adderall 30 mg tablet RxNorm: 810354 2 Tablet(s) PO daily 08/18/2018 09/16/2018 Inactive Dexilant 60 mg capsu le, delayed release RxNorm: 196373 1 Capsule(s) PO BID 08/17/2018 08/11/2019 Ac tive atenolol 50 mg tablet RxNorm: 280617 1 Tablet(s) PO BID 08/17/2018 08/11/2019 Active ketoconazole 2 % top ical cream RxNorm: 613555 1 Gram(s) TOP BID 08/17/2018 08/26/2018 Inactive Zorvolex 35 mg capsule RxNorm: 4312804 1 Capsule(s) PO TID as needed for pain 08/17/2018 08/16/2018 In active Zorvolex 35 mg capsule RxNorm: 1423618 1 Capsule(s) PO TID as needed for pain 08/17/2018 11/14/2018 In active ketoconazole 2 % top ical cream RxNorm: 187015 1 Gram(s) TOP BID 08/02/2018 08/11/2018 Inactive hydrocortisone 2.5 % topical cream RxNorm: 240769 1 Application TOP BID 07/21/2018 No Stop Date Active Adderall 30 mg tablet RxNorm: 192223 2 Tablet(s) PO daily 07/20/2018 08/17/2018 Inactive testosterone cypiona te 200 mg/mL intramuscular oil RxNorm: 508049 Milliliter(s) IM 07/15/2018 07/15/2018 In active alprazolam 1 mg tablet RxNorm: 019626 1 Tablet(s) PO TID as needed 07/12/2018 09/07/2018 Inactive hydrocodone 5 mg-fanny taminophen 325 mg tablet RxNorm: 694665 1 Tablet(s) PO TID OH N 06/30/2018 09/19/2018 In active pravastatin 40 mg ta blet RxNorm: 570262 1 Tablet(s) PO QHS 06/18/2018 09/15/2018 Inactive Adderall 30 mg tablet RxNorm: 443169 2 Tablet(s) PO daily 06/18/2018 07/17/2018 Inactive testosterone cypiona te 200 mg/mL intramuscular oil RxNorm: 067171 Milliliter(s) IM 06/17/2018 06/17/2018 In active Voltaren 1 % topical gel RxNorm: 265717 APPLY TOPICALLY TWO T IMES A DAY 06/16/2018 07/21/2018 In active Vitamin D2 50,000 un it capsule RxNorm: 0815768 1 Capsule(s) PO QW 05/21/2018 No Stop Date Active Adderall 30 mg tablet RxNorm: 080424 2 Tablet(s) PO daily 05/21/2018 06/17/2018 Inactive testosterone cypiona te 200 mg/mL intramuscular oil RxNorm: 373680 Milliliter(s) IM 05/21/2018 05/21/2018 In active testosterone cypiona te 200 mg/mL intramuscular oil RxNorm: 7549376 1 Milliliter(s) IM monthly 05/20/2018 09/16/2018 Inactive testosterone cypiona te 200 mg/mL intramuscular oil RxNorm: 083648 1 Milliliter(s) IM monthly 05/20/2018 05/19/2018 Inactive hydrocodone 5 mg-fanny taminophen 325 mg tablet RxNorm: 230817 1 Tablet(s) PO TID OH N 05/20/2018 06/29/2018 In active Vitamin D2 50,000 un it capsule RxNorm: 3032643 1 Capsule(s) PO QW 05/18/2018 05/20/2018 Inactive triamcinolone aceton destin 0.025 % topical cream RxNorm: 9013761 1 Application TOP BI D 05/13/2018 No Stop Date Active Dexilant 60 mg capsu le, delayed release RxNorm: 852830 1 Capsule(s) PO BID 05/13/2018 08/16/2018 In active Zorvolex 35 mg capsule RxNorm: 7186413 1 Capsule(s) PO TID as needed for pain 05/12/2018 08/09/2018 In active Voltaren 1 % topical gel RxNorm: 137017 1 Application TOP BID 05/12/2018 06/15/2018 Inactive acyclovir 400 mg tablet RxNorm: 692395 1 Tablet(s) PO TID as needed take at ons et of symptoms of cold sores x 5 days 05/10/2018 No Stop Date Active paroxetine 20 mg tablet RxNorm: 5881146 2 Tablet(s) PO QHS 05/10/2018 10/31/2019 Active ProAir HFA 90 mcg/ac tuation aerosol inhaler RxNorm: 078012 1 Puff(s) INH QID as needed 05/10/2018 No Stop Date Active trazodone 100 mg tablet RxNorm: 651310 1 Tablet(s) PO QHS 05/10/2018 11/05/2018 Inactive baclofen 20 mg tablet RxNorm: 133073 1 Tablet(s) PO TID as needed muscle spas ms 05/10/2018 06/08/2018 In active Singulair 10 mg tablet RxNorm: 947182 1 Tablet(s) PO daily 05/10/2018 08/07/2018 Inactive atenolol 50 mg tablet RxNorm: 599667 1 Tablet(s) PO BID 05/10/2018 08/07/2018 Inactive triamcinolone aceton destin 0.025 % topical cream RxNorm: 8676508 1 Application TOP BI D 05/10/2018 05/12/2018 In active tramadol 50 mg tablet RxNorm: 668994 1 Tablet(s) PO TID as needed 05/10/2018 05/19/2018 Inactive Dexilant 60 mg capsu le, delayed release RxNorm: 744363 1 Capsule(s) PO daily 05/10/2018 05/12/2018 In active alprazolam 1 mg tablet RxNorm: 065070 1 Tablet(s) PO TID as needed 05/10/2018 08/06/2018 Inactive cyclobenzaprine 10 m g tablet RxNorm: 819113 1 Tablet(s) PO TID as needed muscle spasms 05/07/2018 07/12/2018 Inactive trazodone 100 mg tablet RxNorm: 356601 1 Tablet(s) PO QHS 05/07/2018 05/09/2018 Inactive Adderall 30 mg tablet RxNorm: 701331 2 Tablet(s) PO daily 04/19/2018 05/18/2018 Inactive alprazolam 1 mg tablet RxNorm: 456031 1 Tablet(s) PO BID 04/19/2018 05/09/2018 Inactive Adderall 30 mg tablet RxNorm: 666427 2 Tablet(s) PO daily 03/26/2018 04/18/2018 Inactive paroxetine 20 mg tablet RxNorm: 7427333 2 Tablet(s) PO QHS 03/15/2018 05/09/2018 Inactive Adderall 30 mg tablet RxNorm: 753438 2 Tablet(s) PO daily 02/25/2018 03/25/2018 Inactive cyclobenzaprine 10 m g tablet RxNorm: 336254 1 Tablet(s) PO TID as needed muscle spasms 02/22/2018 05/06/2018 Inactive tramadol 50 mg tablet RxNorm: 014432 1 Tablet(s) PO TID as needed 02/22/2018 03/07/2018 Inactive tramadol 50 mg tablet RxNorm: 487416 1 Tablet(s) PO TID as needed 02/22/2018 02/21/2018 Inactive trazodone 100 mg tablet RxNorm: 930202 1 Tablet(s) PO QHS 02/03/2018 05/03/2018 Inactive trazodone 100 mg tablet RxNorm: 108712 1 Tablet(s) PO QHS 02/03/2018 02/02/2018 Inactive Adderall 30 mg tablet RxNorm: 529526 2 Tablet(s) PO daily 01/27/2018 02/18/2018 Inactive acyclovir 400 mg tablet RxNorm: 959074 1 Tablet(s) PO TID as needed take at ons et of symptoms of cold sores x 5 days 01/15/2018 05/09/2018 Inactive Bactrim DS 800 mg-16 0 mg tablet RxNorm: 186722 1 Tablet(s) PO BID 01/11/2018 01/17/2018 Inactive Bactrim DS 800 mg-16 0 mg tablet RxNorm: 140948 1 Tablet(s) PO BID 01/11/2018 01/10/2018 Inactive Dexilant 60 mg capsu le, delayed release RxNorm: 240636 1 Capsule(s) PO daily 12/23/2017 05/09/2018 In active Dexilant 60 mg capsu le, delayed release RxNorm: 730101 1 Capsule(s) PO daily 12/23/2017 12/22/2017 In active atenolol 50 mg tablet RxNorm: 531467 1 Tablet(s) PO BID 12/15/2017 05/09/2018 Inactive alprazolam 1 mg tablet RxNorm: 969605 1-1.5 Tablet(s) PO daily 12/15/2017 04/18/2018 Inactive ceftriaxone 500 mg s olution for injection RxNorm: 4365956 Inj 08/03/2015 08/03/2015 Inactive paroxetine 20 mg tablet RxNorm: 0447487 2 Tablet(s) PO QHS 08/01/2015 10/29/2015 Inactive pravastatin 40 mg ta blet RxNorm: 883660 1/2 Tablet(s) PO QHS 08/01/2015 12/14/2017 Inactive Trazadone 100mg 100 mg RxNorm: 1 PO daily 08/01/2015 11/27/2015 Inactive Trazadone 100mg 100 mg RxNorm: 1 PO daily 08/01/2015 05/04/2018 Inactive atenolol 50 mg tablet RxNorm: 915210 1 Tablet(s) PO daily 08/01/2015 10/29/2015 Inactive ibuprofen 800 mg tablet RxNorm: 059108 1 Tablet(s) PO BID -TID No Start Date Active Zyrtec 10 mg tablet RxNorm: 2846476 1 Tablet(s) PO daily No Start Date Active pravastatin 40 mg ta blet RxNorm: 139026 1/2 Tablet(s) PO QHS No Start Date 07/31/2015 Inactive Benadryl Allergy 25 mg tablet RxNorm: 5434227 1 Tablet(s) PO daily No Start Date 07/19/2018 Inactive Adderall 30 mg tablet RxNorm: 448134 2 Tablet(s) PO daily No Start Date 01/26/2018 Inactive Aspirin Low Dose 81 mg tablet,delayed release RxNorm: 412633 1 Tablet(s) PO BID No Start Date 07/19/2018 Inactive Singulair 10 mg tablet RxNorm: 886817 1 Tablet(s) PO daily No Start Date 05/09/2018 Inactive cyclobenzaprine 10 m g tablet RxNorm: 470583 1 Tablet(s) PO TID as needed muscle spasms No Start Date 02/21/2018 Inactive Trazadone 100mg 100 mg RxNorm: 1 PO daily No Start Date 07/31/2015 Inactive clindamycin 1 %-arthur oyl peroxide 5 % topical gel RxNorm: 728591 TOP APPLY TO AFFECTED AREA(S) ON SERNA TWO TIMES A DAY No Start Date 11/16/2018 Inactive hydrocortisone 2.5 % topical cream RxNorm: 326070 1 Application TOP BID No Start Date 07/20/2018 Inactive alprazolam 1 mg tablet RxNorm: 109407 2 Tablet(s) PO daily No Start Date 12/14/2017 Inactive tramadol 50 mg tablet RxNorm: 288329 1-2 Tablet(s) PO Q6 as needed No Start Date 08/17/2018 Inactive Vitamin D2 50,000 un it capsule RxNorm: 0051874 1 Capsule(s) PO QW No Start Date 05/17/2018 Inactive pantoprazole 40 mg t ablet,delayed release RxNorm: 130693 1 Tablet(s) PO BID No Start Date 12/22/2017 Inactive atenolol 50 mg tablet RxNorm: 386870 1 Tablet(s) PO daily No Start Date 07/31/2015 Inactive paroxetine 20 mg tablet RxNorm: 578864 2 Tablet(s) PO QHS No Start Date 07/31/2015 Inactive Medication Administered Medication Codes Instruc tions Start Date Status testosterone cypionate 200 mg/mL intramuscular oil RxNorm: 3466972 1Milliliter 11/15/2018 No longer Active testosterone cypionate 200 mg/mL intramuscular oil RxNorm: 022615 Milliliter 09/28/2018 No longer Active testosterone cypionate 200 mg/mL intramuscular oil RxNorm: 122457 Milliliter 09/16/2018 No longer Active testosterone cypionate 200 mg/mL intramuscular oil RxNorm: 548754 1Milliliter 09/02/2018 No longer Active testosterone cypionate 200 mg/mL intramuscular oil RxNorm: 322116 Milliliter 08/19/2018 No longer Active testosterone cypionate 200 mg/mL intramuscular oil RxNorm: 503036 Milliliter 07/15/2018 No longer Active testosterone cypionate 200 mg/mL intramuscular oil RxNorm: 911302 Milliliter 06/17/2018 No longer Active testosterone cypionate 200 mg/mL intramuscular oil RxNorm: 078413 Milliliter 05/21/2018 No longer Active ceftriaxone 500 mg solution for injection RxNorm: 0535120 08/03/2015 No longer A ctive Immunizations Vaccine [...] hypertension ICD -10: I10 ICD-9: 401.1 11/01/2018 Acute upper respiratory infection, unspecified ICD-10: J06.9 ICD-9: 465.9 09/24/2018 Other allergic rhinitis ICD-10: J30. 89 ICD-9: 477.8 09/24/2018 Rash and other nonspecific skin eruption ICD-10: R21 ICD-9: 782.1 08/02/2018 VACCIN FOR INFLUENZA ICD-10: Z23 ICD-9: V04.81 08/02/2018 Spinal stenosis, cervical region ICD -10: M48.02 ICD-9: 723.0 05/20/2018 Other malaise ICD-10: R53.81 ICD-9: 780.79 05/10/2018 Decreased libido ICD-10: R68.82 ICD-9: 799.81 05/10/2018 Ischemic optic neuropathy, left eye ICD-10: H47.012 ICD-9: 377.41 05/10/2018 Other fatigue ICD-10: R53.83 ICD-9: 780.79 05/10/2018 Pain in thoracic spine ICD-10: M54.6 ICD-9: 724.1 05/10/2018 Obstructive sleep apnea (adult) (pediatric) ICD-10: [...] Item Item Code Result Date Testosterone Serum 585939 TESTOSTERONE 44.1 ng/dL 08/18/2018 Hemoglobin 959267 WBC 7.62 thou/uL 08/17/2018 Hemoglobin 879017 RBC 5.23 mil/uL 08/17/2018 Hemoglobin 062796 HEMOGL OBIN 15.0 g/dL 08/17/2018 Hemoglobin 523965 HEMATO CRIT 45.0 % 08/17/2018 Hemoglobin 297676 MCV 86.0 fL 08/17/2018 Hemoglobin 040677 MCH 28.7 pg 08/17/2018 Hemoglobin 526893 MCHC 33.3 g/dL 08/17/2018 Hemoglobin 517106 RDW-CV 12.9 % 08/17/2018 Hemoglobin 895698 PLATEL ET COUNT 313 thou/uL 08/17/2018 Hematocrit 804316 WBC 7.62 thou/uL 08/17/2018 Hematocrit 628961 RBC 5.23 mil/uL 08/17/2018 Hematocrit 369560 HEMOGL OBIN 15.0 g/dL 08/17/2018 Hematocrit 518186 HEMATO CRIT 45.0 % 08/17/2018 Hematocrit 282264 MCV 86.0 fL 08/17/2018 Hematocrit 281524 MCH 28.7 pg 08/17/2018 Hematocrit 362865 MCHC 33.3 g/dL 08/17/2018 Hematocrit 140597 RDW-CV 12.9 % 08/17/2018 Hematocrit 998805 PLATEL ET COUNT 313 thou/uL 08/17/2018 Culture Mrsa 279341 MRSA CULTURE SEE NOTES 06/21/2018 Comp. Metabolic Panel (14) 73235 GLUCOSE 101 mg/dL 06/18/2018 Comp. Metabolic Panel (14) 12977 BUN 18 mg/dL 06/18/2018 Comp. Metabolic Panel (14) 63904 CREATININE 0.99 mg/dL 06/18/2018 Comp. Metabolic Panel (14) 03273 SODIUM 141 mmol/L 06/18/2018 Comp. Metabolic Panel (14) 09827 POTASSIUM 4.3 mmol/L 06/18/2018 Comp. Metabolic Panel (14) 21612 CHLORIDE 103 mmol/L 06/18/2018 Comp. Metabolic Panel (14) 39619 CARBON DIOXIDE 23 mmol/L 06/18/2018 Comp. Metabolic Panel (14) 32526 CALCIUM 9.8 mg/dL 06/18/2018 Comp. Metabolic Panel (14) 55551 TOTAL PROTEIN 7.1 g/dL 06/18/2018 Comp. Metabolic Panel (14) 10768 ALBUMIN 5.2 g/dL 06/18/2018 Comp. Metabolic Panel (14) 98764 ALKALINE PHOSPHATASE 65 U/L 06/18/2018 Comp. Metabolic Panel (14) 70551 TOTAL BILIRUBIN 0.6 mg/dL 06/18/2018 Comp. Metabolic Panel (14) 74050 SGOT (AST) 21 U/L 06/18/2018 Comp. Metabolic Panel (14) 15350 SGPT (ALT) 24 U/L 06/18/2018 Comp. Metabolic Panel (14) 51030 eGFR (mL/min/1.73m2) 115 06/18/2018 Comp. Metabolic Panel (14) 21457 INTERPRETATION 06/18/2018 Cbc With Differential/Platelet 77464 WBC 4.55 thou/uL 8 Cbc With Differential/Platelet 76630 RBC 5.13 mil/uL 06/18/2018 Cbc With Differential/Platelet 08796 HEMOGLOBIN 14.4 g/dL 06/18/2018 Cbc With Differential/Platelet 79479 HEMATOCRIT 44.1 % 06/18/2018 Cbc With Differential/Platelet 21345 MCV 85.9 fL 06/18/2018 Cbc With Differential/Platelet 65288 MCH 28.1 pg 06/18/2018 Cbc With Differential/Platelet 99859 MCHC 32.7 g/dL 06/18/2018 Cbc With Differential/Platelet 87296 RDW-CV 13.4 % 06/18/2018 Cbc With Differential/Platelet 77216 PLATELET COUNT 287 thou/uL 06/18/2018 Cbc With Differential/Platelet 68735 NEUTROPHIL % 53.9 % 06/18/2018 Cbc With Differential/Platelet 34079 LYMPHOCYTE % 36.1 % 06/18/2018 Cbc With Differential/Platelet 88096 MONOCYTE % 7.4 % 06/18/2018 Cbc With Differential/Platelet 66096 EOS % 1.9 % 06/18/2018 Cbc With Differential/Platelet 51181 BASO % 0.8 % 06/18/2018 Cbc With Differential/Platelet 24736 NEUTROPHIL ABS # 2.45 thou/uL 06/18/2018 Cbc With Differential/Platelet 92979 LYMPH ABS # 1.64 thou/uL 06/18/2018 Cbc With Differential/Platelet 71722 MONOCYTE ABS # 0.34 thou/uL 06/18/2018 Cbc With Differential/Platelet 16079 EOS ABS # 0.09 thou/uL 8 Cbc With Differential/Platelet 62833 BASO ABS # 0.04 thou/uL 06/18/2018 Review [...] accommodation 01/15/2018 None Full Exam - General 1997 [...] Procedure Codes Date THER/PROPH/DIAG INJ SC/IM CPT-4: 91303 11/15/2018 THER/PROPH/DIAG INJ SC/IM CPT-4: 62554 09/28/2018 THER/PROPH/DIAG INJ SC/IM CPT-4: 48503 09/16/2018 THER/PROPH/DIAG INJ SC/IM CPT-4: 35214 09/02/2018 THER/PROPH/DIAG INJ SC/IM CPT-4: 49744 08/19/2018 IMMUNIZATION ADMIN CPT- 4: 20543 08/02/2018 FLU VAC NO PRSV 4 VA L 3 YRS+ CPT-4: 86838 08/02/2018 THER/PROPH/DIAG INJ SC/IM CPT-4: 10349 07/15/2018 THER/PROPH/DIAG INJ SC/IM CPT-4: 37681 06/17/2018 THER/PROPH/DIAG INJ SC/IM CPT-4: 67904 05/21/2018 THER/PROPH/DIAG INJ SC/IM CPT-4: 30444 08/03/2015 ROCEPHIN, PER 250 MG CPT-4: J0696 08/03/2015 Vital Signs Date Vital 11/01/2018 Blood Pressure 1: 146/82 Code: 8480-6 BMI: 36.0 Code: 27517-3 Heart Rate 1: 87 bpm Height: 5'7" SpO2: 98% Weight: 230 lbs 09/24/2018 Blood Pressure 1: 140/82 Code: 8480-6 BMI: 36.0 Code: 51776-6 Heart Rate 1: 86 bpm Height: 5'7" SpO2: 98% Temperature: 37.1 (C ) / 98.7 (F) Weight: 230 lbs 08/16/2018 Blood Pressure 1: 148/82 Code: 8480-6 Blood Pressure 2: 157/92 Code: 8480-6 BMI: 35.9 Code: 72376-9 Heart Rate 1: 72 bpm Height: 5'7" SpO2: 96% Weight: 229 lbs 08/02/2018 Blood Pressure 1: 142/86 Code: 8480-6 BMI: 35.2 Code: 64252-6 Heart Rate 1: 101 bpm Height: 5'7" SpO2: 97% Weight: 225 lbs 05/31/2018 Blood Pressure 1: 134/82 Code: 8480-6 BMI: 35.4 Code: 83048-7 Heart Rate 1: 91 bpm Height: 5'7" SpO2: 96% Weight: 226 lbs 05/20/2018 Blood Pressure 1: 160/100 Code: 8480-6 BMI: 35.2 Code: 60202-9 Heart Rate 1: 89 bpm Height: 5'7" SpO2: 98% Weight: 225 lbs 05/10/2018 Blood Pressure 1: 124/70 Code: 8480-6 BMI: 35.1 Code: 26896-0 Heart Rate 1: 93 bpm Height: 5'7" SpO2: 99% Weight: 224 lbs 01/15/2018 Blood Pressure 1: 142/92 Code: 8480-6 BMI: 36.3 Code: 67207-2 Heart Rate 1: 77 bpm Height: 5'7" SpO2: 98% Weight: 232 lbs 12/15/2017 Blood Pressure 1: 156/98 Code: 8480-6 BMI: 36.2 Code: 55679-3 Heart Rate 1: 87 bpm Height: 5'7" [...] eye 01/15/2018 None vision change Quality ac [place] 01/15/2018 None vision change Quality lo ss [...] vision 12/15/2017 None vision change Quality ac [place] 12/15/2017 None vision change Onset and Resolution sudden in onset 12/15/2017 None vision change Onset of Symptom 3.5 weeks ago 12/15/2017 None vision change Limitation on Activities severely limits vision 12/15/2017 None vision change Triggers n o known associated factors 12/15/2017 None Advance Directives No Advance Directive data Encounters Encounter Performer Loca tion Codes Date ([id number]) [id number] EST. 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 PATIENT, LEVEL III Diagnosis: Acute upper respiratory infection, unspecified[ICD10: J06.9] Diagnosis: Other allergic rhinitis[ICD10: J30.89] Sonia Gonzalez MD, [facility] CPT-4: 20108 09/24/2018 ([id number]) [id number] EST. 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 P [facility], LEVEL IV Diagnosis: Essential (primary) hypertension[ICD10: I10] Diagnosis: Cervicalgia[ICD10: M54.2] Radha Gonzalez MD, [facility] CPT-4: 67840 05/31/2018 ([id number] EST. 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 PATIENT, LEVEL III Diagnosis: Ischemic optic neuropathy, left eye[ICD10: H47.012] Diagnosis: Essential (primary) hypertension[ICD10: I10] Diagnosis: Decreased libido[ICD10: R68.82] Diagnosis: Other malaise[ICD10: R53.81] Diagnosis: Other fatigue[ICD10: R53.83] Diagnosis: Cervicalgia[ICD10: M54.2] Diagnosis: Pain in thoracic spine[ICD10: M54.6] Sonia Gonzalez MD, [facility] CPT- 4: 54840 05/10/2018 ([phone] [id number] EST. 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] Diagnosis: Obstructive sleep apnea (adult) (pediatric)[ICD10: G47.33] Radha Gonzalez MD, [facility] CPT-4: 89717 01/15/2018 ([id number]) PREV VISIT N EW AGE 40-64 Diagnosis: Encounter for general adult medical examination with abnormal findings[ICD10: Z00.01] Radha Gonzalez MD, [facility] CPT-4: 40275 12/15/2017 ([id number]) OFFICE/OUTPA TIENT VISIT NEW Diagnosis: Laceration of thumb[ICD9: 883.0] Radha Gonzalez MD, [facility] CPT-4: 17348 08/03/2015 Plan of Care Planned Activity Notes [...] as needed. 11/01/2018 Appointment: Radha Gonzalez WPtel: [address] [place] [address] (15 min) Moderate 11/01/2018 Patient Education: Patient [...] allergy spray. 09/24/2018 Appointment: Sonia Potter WPtel: [address] [place], [place] [phone] (15 min) Moderate 09/24/2018 Patient Education: Patient [...] at home. Multiple symptoms - referral to [facility] - appt in September 30, 2018. 08/16/2018 App[facility]ment: [facility] [phone] [id number] (15 min) Moderate 08/16/2018 Patient Education: Patient [...] at home. Multiple symptoms - referral to [facility] - rashes, hypogonadism, optic neuritis - all points to possible autoimmune syndrome. Spinal stenosis - of thoracic region - pt to talk to Dr. Dunaway about referral to a different specialist for his mid- back. Hypogonadism - continue with testosterone. Flu shot given today in clinic. 08/02/2018 Appointment: [facility] [address] [id number] (15 min) Moderate 08/02/2018 Patient Education: Patient Medication Summary Completed 08/02/2018 Care Plan: Referral Order SNOMED-CT : 110507674 Pending 08/02/2018 Appointment: Injection 07/15/2018 Patient Education: [...] home. Cervical spine stenosis [facility] I have also recommended a Referral to Dr. Dunaway. I have called and talked to Dr. Dunaway - he looked at the pt's imaging and agrees that getting the pt in to be seen soon would be a preferred option. 05/31/2018 Appointment: [facility] [address] [id number] (15 min) Moderate 05/31/2018 Patient Education: Patient Medication Summary Completed 05/31/2018 Care Plan: Referral Order SNOMED-CT : 546365030 Pending 05/31/2018 Care Plan: Referral Order SNOMED-CT : 096325618 Pending 05/31/2018 Appointment: Injection 05/21/2018 Patient Education: Patient Medication Summary Completed 05/21/2018 Care Plan: Referral Order SNOMED-CT : [id number] Pending 05/21/2018 Visit Plan: Cervical and thoracic s tenosis with spinal cord compression -refer for appt with Dr Marr -rx for hydrocodone for pain-start gabapentin at bedtime Soft tissue lesion-left chest-schedule CTfor further evaluation HTN-elevated today-hold adderall-monitor blood pressure 05/20/2018 Appointment: Hannah Simons WPtel: [phone] [place] (15 min) Moderate 05/20/2018 Patient [...] Appointment: Sonia Potter WPtel: [facility] [place] (15 min) Moderate 05/10/2018 Patient Education: Patient Medication Summary Completed 05/10/2018 Visit Plan: Sleep apnea - rx for cp ap - actually autopap was recommended and pt given rx today. HTN - referral to dr. kapoor - pt needs stress testing. 01/15/2018 Appointment: Radha Gonzalez WPtel: [facility] [place] (15 min) Moderate 01/15/2018 Patient Education: Patient Medication Summary Completed 01/15/2018 Care Plan: Referral Order SNOMED-CT : [id number] Pending 01/15/2018 Visit Plan: Well Adult - [...] Appointment: Radha Gonzalez WPtel: [id number] New Patient 12/15/2017 Patient Education: Patient Medication Summary Completed 12/15/2017 Care Plan: CHEST X-RAY 2VW FRONTAL&LATL LOINC : 18961-1 Pending 12/15/2017 Appointment: Radha Gonzalez WPtel: [id number] (15 min) Moderate 12/08/2017 Appointment: (S) New Patient 08/13/2015 Visit Plan: steri strip placed on t humb of right hand - antibiotic shot given to patient and rx for keflex 500mg qid x 10 days given to the patient to fill prior to his trip to [place] 08/03/2015 Patient Education: Patient Medication Summary Completed 08/03/2015 Referral: External, Ordering Provider 08/03 Referral info faxed to [place]. Patient informed to be expecting a call from them with appt info Appointment Requested Referral: External, Ordering Provider Referral Appointment Requested Referral: External, Ordering Provider I called today; they will call him to schedule. Completed Referral: Armani Dunaway Referral Appointment Requested Referral: Mayte Kapoor Referral Appointment Requested Referral[facility] [id number] [id number] [place] Referral Appointment Requested Referral: External, Ordering [...] at home. Multiple symptoms - referral to [facility] - rashes, hypogonadism, optic neuritis [...] at home. Multiple symptoms - referral to [facility] - appt in September 30, 2018. . steri strip placed on thumb of right hand - antibiotic shot given to patient and rx for keflex 500mg qid x 10 days given to the patient to fill prior to his trip to [place] will refill meds for 90 days Will [...] Cervical spine stenosis - referral to [facility] physical therapy. I have also recommended a Referral to Dr. Dunaway. I have called and talked to Dr. Dunaway - he looked at the pt's imaging and agrees that getting the pt in to be seen soon would be a preferred option.
[2020-04-28 00:55] LABS: CHLORIDE 104 MMOL/L (98-107); POTASSIUM 5.1 MMOL/L (3.6-5.0); SODIUM 140 MMOL/L (135-145)
--- OUTSIDE RECORDS SUMMARY | 2020-04-28 00:55 | XMS REPORT | CCD ---
Author Author Nilton Gonzalez Organization Radha Gonzalez MD, [facility] Address [address] [place] [address] Phone Care Team Providers Care General Surgery Physician Assistant Name Role Phone PP Unavailable CCM Unavailable Summary Purpose Interface Exchange Insurance Providers Payer name Policy type / Coverage type Covered libertarian ID Effective Begin Date Effective End Date CORESOURCES Commercial Insurance [id number] 2017 Unknown Family history Brother Diagnosis Age At Onset Alcoholism Unknown Father Diagnosis Age At Onset Hypercholesterolemia Unknown Social History Social History Element Codes Description Effective Dates Marital status Unknown S chanda 12/15/2017 Number of children Unknown 1 12/15/2017 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 [employer] 12/15/[address]: 860704555 Never smoker 12/15/[address]: 694185 Currently drinks alcohol <1 per week 12/15/2017 [...] ICD-10: H47.012 12/15/2017 Active Obstructive sleep ap nuar (adult) (pediatric) ICD-9: 327.23 ICD-10: G47.33 01/15/2018 [...] Date Stop Date Sta tus Fill Instructions Zorvolex 35 mg capsule RxNorm: 3054414 1 Capsule(s) PO TID as needed for pain 11/15/2018 05/13/2019 Ac tive ketoconazole 2 % top ical cream RxNorm: 970788 APPLY ONE GRAM TOPICA LLY TWICE A DAY 11/15/2018 11/29/2018 Ac tive testosterone cypiona te 200 mg/mL intramuscular oil RxNorm: 9243293 1 Milliliter(s) IM 11/15/2018 11/15/2018 Inactive hydrocodone 5 mg-fanny taminophen 325 mg tablet RxNorm: 946661 1 Tablet(s) PO TID [place] N 11/02/2018 No Stop Date Active Singulair 10 mg tablet RxNorm: 178792 1 Tablet(s) PO daily 11/01/2018 07/28/2019 Active testosterone cypiona te 200 mg/mL intramuscular oil RxNorm: 1782057 1 Milliliter(s) IM 2 x month 11/01/2018 02/27/2019 Active Adderall 30 mg tablet RxNorm: 508067 2 Tablet(s) PO daily 10/29/2018 11/27/2018 Active gabapentin 300 mg ca psule RxNorm: 215229 1 Capsule(s) PO BID m ay take TID 10/19/2018 02/15/2019 Ac tive gabapentin 300 mg ca psule RxNorm: 061784 1 Capsule(s) PO BID m ay take TID 10/19/2018 10/18/2018 In active alprazolam 1 mg tablet RxNorm: 822479 1 Tablet(s) PO TID as needed 10/15/2018 12/13/2018 Active testosterone cypiona te 200 mg/mL intramuscular oil RxNorm: 159613 Milliliter(s) IM 09/28/2018 09/28/2018 In active pravastatin 40 mg ta blet RxNorm: 162447 TAKE ONE TABLET BY MO UTH EVERY NIGHT AT BEDTIME 09/27/2018 09/21/2019 Active Tamiflu 75 mg capsule RxNorm: 566172 1 Capsule(s) PO BID 09/24/2018 09/28/2018 Inactive Adderall 30 mg tablet RxNorm: 193644 2 Tablet(s) PO daily 09/20/2018 10/19/2018 Inactive hydrocodone 5 mg-fanny taminophen 325 mg tablet RxNorm: 220317 1 Tablet(s) PO TID [place] N 09/20/2018 11/01/2018 In active testosterone cypiona te 200 mg/mL intramuscular oil RxNorm: 095582 Milliliter(s) IM 09/16/2018 09/16/2018 In active testosterone cypiona te 200 mg/mL intramuscular oil RxNorm: 081467 1 Milliliter(s) IM 09/02/2018 09/02/2018 Inactive testosterone cypiona te 200 mg/mL intramuscular oil RxNorm: 974422 Milliliter(s) IM 08/19/2018 08/19/2018 In active tramadol 50 mg tablet RxNorm: 598563 1-2 Tablet(s) PO Q6 as needed 08/18/2018 No Stop Date Active Adderall 30 mg tablet RxNorm: 663141 2 Tablet(s) PO daily 08/18/2018 09/16/2018 Inactive Dexilant 60 mg capsu le, delayed release RxNorm: 288402 1 Capsule(s) PO BID 08/17/2018 08/11/2019 Ac tive atenolol 50 mg tablet RxNorm: 455333 1 Tablet(s) PO BID 08/17/2018 08/11/2019 Active ketoconazole 2 % top ical cream RxNorm: 986292 1 Gram(s) TOP BID 08/17/2018 08/26/2018 Inactive Zorvolex 35 mg capsule RxNorm: 0865672 1 Capsule(s) PO TID as needed for pain 08/17/2018 08/16/2018 In active Zorvolex 35 mg capsule RxNorm: 7896743 1 Capsule(s) PO TID as needed for pain 08/17/2018 11/14/2018 In active ketoconazole 2 % top ical cream RxNorm: 839762 1 Gram(s) TOP BID 08/02/2018 08/11/2018 Inactive hydrocortisone 2.5 % topical cream RxNorm: 822663 1 Application TOP BID 07/21/2018 No Stop Date Active Adderall 30 mg tablet RxNorm: 729263 2 Tablet(s) PO daily 07/20/2018 08/17/2018 Inactive testosterone cypiona te 200 mg/mL intramuscular oil RxNorm: 346831 Milliliter(s) IM 07/15/2018 07/15/2018 In active alprazolam 1 mg tablet RxNorm: 648592 1 Tablet(s) PO TID as needed 07/12/2018 09/07/2018 Inactive hydrocodone 5 mg-fanny taminophen 325 mg tablet RxNorm: 201181 1 Tablet(s) PO TID [place] N 06/30/2018 09/19/2018 In active pravastatin 40 mg ta blet RxNorm: 311531 1 Tablet(s) PO QHS 06/18/2018 09/15/2018 Inactive Adderall 30 mg tablet RxNorm: 127029 2 Tablet(s) PO daily 06/18/2018 07/17/2018 Inactive testosterone cypiona te 200 mg/mL intramuscular oil RxNorm: 234840 Milliliter(s) IM 06/17/2018 06/17/2018 In active Voltaren 1 % topical gel RxNorm: 531505 APPLY TOPICALLY TWO T IMES A DAY 06/16/2018 07/21/2018 In active Vitamin D2 50,000 un it capsule RxNorm: 8214929 1 Capsule(s) PO QW 05/21/2018 No Stop Date Active Adderall 30 mg tablet RxNorm: 513111 2 Tablet(s) PO daily 05/21/2018 06/17/2018 Inactive testosterone cypiona te 200 mg/mL intramuscular oil RxNorm: 099152 Milliliter(s) IM 05/21/2018 05/21/2018 In active testosterone cypiona te 200 mg/mL intramuscular oil RxNorm: 1524655 1 Milliliter(s) IM monthly 05/20/2018 09/16/2018 Inactive testosterone cypiona te 200 mg/mL intramuscular oil RxNorm: 686206 1 Milliliter(s) IM monthly 05/20/2018 05/19/2018 Inactive hydrocodone 5 mg-fanny taminophen 325 mg tablet RxNorm: 240003 1 Tablet(s) PO TID [place] N 05/20/2018 06/29/2018 In active Vitamin D2 50,000 un it capsule RxNorm: 0317172 1 Capsule(s) PO QW 05/18/2018 05/20/2018 Inactive triamcinolone aceton destin 0.025 % topical cream RxNorm: 4724213 1 Application TOP BI D 05/13/2018 No Stop Date Active Dexilant 60 mg capsu le, delayed release RxNorm: 439455 1 Capsule(s) PO BID 05/13/2018 08/16/2018 In active Zorvolex 35 mg capsule RxNorm: 5653583 1 Capsule(s) PO TID as needed for pain 05/12/2018 08/09/2018 In active Voltaren 1 % topical gel RxNorm: 064702 1 Application TOP BID 05/12/2018 06/15/2018 Inactive acyclovir 400 mg tablet RxNorm: 465433 1 Tablet(s) PO TID as needed take at ons et of symptoms of cold sores x 5 days 05/10/2018 No Stop Date Active paroxetine 20 mg tablet RxNorm: 7476583 2 Tablet(s) PO QHS 05/10/2018 10/31/2019 Active ProAir HFA 90 mcg/ac tuation aerosol inhaler RxNorm: 772037 1 Puff(s) INH QID as needed 05/10/2018 No Stop Date Active trazodone 100 mg tablet RxNorm: 961342 1 Tablet(s) PO QHS 05/10/2018 11/05/2018 Inactive baclofen 20 mg tablet RxNorm: 881149 1 Tablet(s) PO TID as needed muscle spas ms 05/10/2018 06/08/2018 In active Singulair 10 mg tablet RxNorm: 698809 1 Tablet(s) PO daily 05/10/2018 08/07/2018 Inactive atenolol 50 mg tablet RxNorm: 374327 1 Tablet(s) PO BID 05/10/2018 08/07/2018 Inactive triamcinolone aceton destin 0.025 % topical cream RxNorm: 0456355 1 Application TOP BI D 05/10/2018 05/12/2018 In active tramadol 50 mg tablet RxNorm: 736339 1 Tablet(s) PO TID as needed 05/10/2018 05/19/2018 Inactive Dexilant 60 mg capsu le, delayed release RxNorm: 558147 1 Capsule(s) PO daily 05/10/2018 05/12/2018 In active alprazolam 1 mg tablet RxNorm: 928786 1 Tablet(s) PO TID as needed 05/10/2018 08/06/2018 Inactive cyclobenzaprine 10 m g tablet RxNorm: 104180 1 Tablet(s) PO TID as needed muscle spasms 05/07/2018 07/12/2018 Inactive trazodone 100 mg tablet RxNorm: 403815 1 Tablet(s) PO QHS 05/07/2018 05/09/2018 Inactive Adderall 30 mg tablet RxNorm: 554857 2 Tablet(s) PO daily 04/19/2018 05/18/2018 Inactive alprazolam 1 mg tablet RxNorm: 411497 1 Tablet(s) PO BID 04/19/2018 05/09/2018 Inactive Adderall 30 mg tablet RxNorm: 434734 2 Tablet(s) PO daily 03/26/2018 04/18/2018 Inactive paroxetine 20 mg tablet RxNorm: 6318028 2 Tablet(s) PO QHS 03/15/2018 05/09/2018 Inactive Adderall 30 mg tablet RxNorm: 632727 2 Tablet(s) PO daily 02/25/2018 03/25/2018 Inactive cyclobenzaprine 10 m g tablet RxNorm: 282469 1 Tablet(s) PO TID as needed muscle spasms 02/22/2018 05/06/2018 Inactive tramadol 50 mg tablet RxNorm: 415655 1 Tablet(s) PO TID as needed 02/22/2018 03/07/2018 Inactive tramadol 50 mg tablet RxNorm: 523644 1 Tablet(s) PO TID as needed 02/22/2018 02/21/2018 Inactive trazodone 100 mg tablet RxNorm: 192786 1 Tablet(s) PO QHS 02/03/2018 05/03/2018 Inactive trazodone 100 mg tablet RxNorm: 718545 1 Tablet(s) PO QHS 02/03/2018 02/02/2018 Inactive Adderall 30 mg tablet RxNorm: 811857 2 Tablet(s) PO daily 01/27/2018 02/18/2018 Inactive acyclovir 400 mg tablet RxNorm: 704564 1 Tablet(s) PO TID as needed take at ons et of symptoms of cold sores x 5 days 01/15/2018 05/09/2018 Inactive Bactrim DS 800 mg-16 0 mg tablet RxNorm: 966984 1 Tablet(s) PO BID 01/11/2018 01/17/2018 Inactive Bactrim DS 800 mg-16 0 mg tablet RxNorm: 943777 1 Tablet(s) PO BID 01/11/2018 01/10/2018 Inactive Dexilant 60 mg capsu le, delayed release RxNorm: 523902 1 Capsule(s) PO daily 12/23/2017 05/09/2018 In active Dexilant 60 mg capsu le, delayed release RxNorm: 636740 1 Capsule(s) PO daily 12/23/2017 12/22/2017 In active atenolol 50 mg tablet RxNorm: 570840 1 Tablet(s) PO BID 12/15/2017 05/09/2018 Inactive alprazolam 1 mg tablet RxNorm: 888201 1-1.5 Tablet(s) PO daily 12/15/2017 04/18/2018 Inactive ceftriaxone 500 mg s olution for injection RxNorm: 7042473 Inj 08/03/2015 08/03/2015 Inactive paroxetine 20 mg tablet RxNorm: 3441063 2 Tablet(s) PO QHS 08/01/2015 10/29/2015 Inactive pravastatin 40 mg ta blet RxNorm: 473176 1/2 Tablet(s) PO QHS 08/01/2015 12/14/2017 Inactive Trazadone 100mg 100 mg RxNorm: 1 PO daily 08/01/2015 11/27/2015 Inactive Trazadone 100mg 100 mg RxNorm: 1 PO daily 08/01/2015 05/04/2018 Inactive atenolol 50 mg tablet RxNorm: 322756 1 Tablet(s) PO daily 08/01/2015 10/29/2015 Inactive ibuprofen 800 mg tablet RxNorm: 190032 1 Tablet(s) PO BID -TID No Start Date Active Zyrtec 10 mg tablet RxNorm: 5836831 1 Tablet(s) PO daily No Start Date Active pravastatin 40 mg ta blet RxNorm: 729858 1/2 Tablet(s) PO QHS No Start Date 07/31/2015 Inactive Benadryl Allergy 25 mg tablet RxNorm: 3845896 1 Tablet(s) PO daily No Start Date 07/19/2018 Inactive Adderall 30 mg tablet RxNorm: 355681 2 Tablet(s) PO daily No Start Date 01/26/2018 Inactive Aspirin Low Dose 81 mg tablet,delayed release RxNorm: 534653 1 Tablet(s) PO BID No Start Date 07/19/2018 Inactive Singulair 10 mg tablet RxNorm: 512097 1 Tablet(s) PO daily No Start Date 05/09/2018 Inactive cyclobenzaprine 10 m g tablet RxNorm: 694159 1 Tablet(s) PO TID as needed muscle spasms No Start Date 02/21/2018 Inactive Trazadone 100mg 100 mg RxNorm: 1 PO daily No Start Date 07/31/2015 Inactive hydrocortisone 2.5 % topical cream RxNorm: 064994 1 Application TOP BID No Start Date 07/20/2018 Inactive alprazolam 1 mg tablet RxNorm: 463522 2 Tablet(s) PO daily No Start Date 12/14/2017 Inactive tramadol 50 mg tablet RxNorm: 412643 1-2 Tablet(s) PO Q6 as needed No Start Date 08/17/2018 Inactive Vitamin D2 50,000 un it capsule RxNorm: 4173775 1 Capsule(s) PO QW No Start Date 05/17/2018 Inactive pantoprazole 40 mg t ablet,delayed release RxNorm: 697016 1 Tablet(s) PO BID No Start Date 12/22/2017 Inactive atenolol 50 mg tablet RxNorm: 932465 1 Tablet(s) PO daily No Start Date 07/31/2015 Inactive paroxetine 20 mg tablet RxNorm: 426832 2 Tablet(s) PO QHS No Start Date 07/31/2015 Inactive Medication Administered Medication Codes Instruc tions Start Date Status testosterone cypionate 200 mg/mL intramuscular oil RxNorm: 7033973 1Milliliter 11/15/2018 No longer Active testosterone cypionate 200 mg/mL intramuscular oil RxNorm: 846987 Milliliter 09/28/2018 No longer Active testosterone cypionate 200 mg/mL intramuscular oil RxNorm: 388801 Milliliter 09/16/2018 No longer Active testosterone cypionate 200 mg/mL intramuscular oil RxNorm: 604893 1Milliliter 09/02/2018 No longer Active testosterone cypionate 200 mg/mL intramuscular oil RxNorm: 380844 Milliliter 08/19/2018 No longer Active testosterone cypionate 200 mg/mL intramuscular oil RxNorm: 418020 Milliliter 07/15/2018 No longer Active testosterone cypionate 200 mg/mL intramuscular oil RxNorm: 915633 Milliliter 06/17/2018 No longer Active testosterone cypionate 200 mg/mL intramuscular oil RxNorm: 597869 Milliliter 05/21/2018 No longer Active ceftriaxone 500 mg solution for injection RxNorm: 3543277 08/03/2015 No longer A ctive Immunizations Vaccine Codes Date Status Influenza CVX: 141 08/02 completed Tetanus, Diptheria, Pertussis CVX: 113 05/16/2011 completed Tetanus/Diptheria CVX: 113 05/16/2011 completed Assessments Condition Codes Effectiv e Dates 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 89 ICD-9: 477.8 09/24/2018 VACCIN FOR INFLUENZA ICD-10: Z23 ICD-9: V04.81 08/02/2018 Rash and other nonspecific skin eruption ICD-10: R21 ICD-9: 782.1 08/02/2018 Spinal stenosis, cervical region ICD -10: M48.02 ICD-9: 723.0 05/20/2018 Other malaise ICD-10: R53.81 ICD-9: 780.79 05/10/2018 Decreased libido ICD-10: R68.82 ICD-9: 799.81 05/10/2018 Pain in thoracic spine ICD-10: M54.6 ICD-9: 724.1 05/10/2018 Other fatigue ICD-10: R53.83 ICD-9: 780.79 05/10/2018 Ischemic optic neuropathy, left eye ICD-10: [...] Item Item Code Result Date Testosterone Serum 135288 TESTOSTERONE 44.1 ng/dL 08/18/2018 Hemoglobin 20020721 WBC 7.62 thou/uL 08/17/2018 Hemoglobin 20020721 RBC 5.23 mil/uL 08/17/2018 Hemoglobin 20020721 HEMOGL OBIN 15.0 g/dL 08/17/2018 Hemoglobin 20020721 HEMATO CRIT 45.0 % 08/17/2018 Hemoglobin 976392 MCV 86.0 fL 08/17/2018 Hemoglobin 551190 MCH 28.7 pg 08/17/2018 Hemoglobin 140290 MCHC 33.3 g/dL 08/17/2018 Hemoglobin 068497 RDW-CV 12.9 % 08/17/2018 Hemoglobin 573670 PLATEL ET COUNT 313 thou/uL 08/17/2018 Hematocrit 194213 WBC 7.62 thou/uL 08/17/2018 Hematocrit 052889 RBC 5.23 mil/uL 08/17/2018 Hematocrit 534886 HEMOGL OBIN 15.0 g/dL 08/17/2018 Hematocrit 803774 HEMATO CRIT 45.0 % 08/17/2018 Hematocrit 113455 MCV 86.0 fL 08/17/2018 Hematocrit 171834 MCH 28.7 pg 08/17/2018 Hematocrit 121603 MCHC 33.3 g/dL 08/17/2018 Hematocrit 397508 RDW-CV 12.9 % 08/17/2018 Hematocrit 563081 PLATEL ET COUNT 313 thou/uL 08/17/2018 Culture Mrsa 456442 MRSA CULTURE SEE NOTES 06/21/2018 Cbc With Differential/Platelet 80885 WBC 4.55 thou/uL 8 Cbc With Differential/Platelet 91336 RBC 5.13 mil/uL 06/18/2018 Cbc With Differential/Platelet 17795 HEMOGLOBIN 14.4 g/dL 06/18/2018 Cbc With Differential/Platelet 47577 HEMATOCRIT 44.1 % 06/18/2018 Cbc With Differential/Platelet 61398 MCV 85.9 fL 06/18/2018 Cbc With Differential/Platelet 44474 MCH 28.1 pg 06/18/2018 Cbc With Differential/Platelet 15618 MCHC 32.7 g/dL 06/18/2018 Cbc With Differential/Platelet 51985 RDW-CV 13.4 % 06/18/2018 Cbc With Differential/Platelet 22461 PLATELET COUNT 287 thou/uL 06/18/2018 Cbc With Differential/Platelet 08660 NEUTROPHIL % 53.9 % 06/18/2018 Cbc With Differential/Platelet 08930 LYMPHOCYTE % 36.1 % 06/18/2018 Cbc With Differential/Platelet 70503 MONOCYTE % 7.4 % 06/18/2018 Cbc With Differential/Platelet 04829 EOS % 1.9 % 06/18/2018 Cbc With Differential/Platelet 42690 BASO % 0.8 % 06/18/2018 Cbc With Differential/Platelet 15587 NEUTROPHIL ABS # 2.45 thou/uL 06/18/2018 Cbc With Differential/Platelet 24622 LYMPH ABS # 1.64 thou/uL 06/18/2018 Cbc With Differential/Platelet 39888 MONOCYTE ABS # 0.34 thou/uL 06/18/2018 Cbc With Differential/Platelet 85391 EOS ABS # 0.09 thou/uL 8 Cbc With Differential/Platelet 06827 BASO ABS # 0.04 thou/uL 06/18/2018 Comp. Metabolic Panel (14) 06682 GLUCOSE 101 mg/dL 06/18/2018 Comp. Metabolic Panel (14) 05678 BUN 18 mg/dL 06/18/2018 Comp. Metabolic Panel (14) 52817 CREATININE 0.99 mg/dL 06/18/2018 Comp. Metabolic Panel (14) 05063 SODIUM 141 mmol/L 06/18/2018 Comp. Metabolic Panel (14) 68828 POTASSIUM 4.3 mmol/L 06/18/2018 Comp. Metabolic Panel (14) 06810 CHLORIDE 103 mmol/L 06/18/2018 Comp. Metabolic Panel (14) 35115 CARBON DIOXIDE 23 mmol/L 06/18/2018 Comp. Metabolic Panel (14) 16037 CALCIUM 9.8 mg/dL 06/18/2018 Comp. Metabolic Panel (14) 51440 TOTAL PROTEIN 7.1 g/dL 06/18/2018 Comp. Metabolic Panel (14) 76540 ALBUMIN 5.2 g/dL 06/18/2018 Comp. Metabolic Panel (14) 43786 ALKALINE PHOSPHATASE 65 U/L 06/18/2018 Comp. Metabolic Panel (14) 19738 TOTAL BILIRUBIN 0.6 mg/dL 06/18/2018 Comp. Metabolic Panel (14) 57672 SGOT (AST) 21 U/L 06/18/2018 Comp. Metabolic Panel (14) 17155 SGPT (ALT) 24 U/L 06/18/2018 Comp. Metabolic Panel (14) 04806 eGFR (mL/min/1.73m2) 115 06/18/2018 Comp. Metabolic Panel (14) 97869 INTERPRETATION 06/18/2018 Review of Systems System Result Effective [...] Procedure Codes Date THER/PROPH/DIAG INJ SC/IM CPT-4: 06560 11/15/2018 THER/PROPH/DIAG INJ SC/IM CPT-4: 17760 09/28/2018 THER/PROPH/DIAG INJ SC/IM CPT-4: 63990 09/16/2018 THER/PROPH/DIAG INJ SC/IM CPT-4: 65038 09/02/2018 THER/PROPH/DIAG INJ SC/IM CPT-4: 90990 08/19/2018 IMMUNIZATION ADMIN CPT- 4: 34611 08/02/2018 FLU VAC NO PRSV 4 VA L 3 YRS+ CPT-4: 70103 08/02/2018 THER/PROPH/DIAG INJ SC/IM CPT-4: 51189 07/15/2018 THER/PROPH/DIAG INJ SC/IM CPT-4: 14569 06/17/2018 THER/PROPH/DIAG INJ SC/IM CPT-4: 80874 05/21/2018 THER/PROPH/DIAG INJ SC/IM CPT-4: 25966 08/03/2015 ROCEPHIN, PER 250 MG CPT-4: J0696 08/03/2015 Vital Signs Date Vital 11/01/2018 Blood Pressure 1: 146/82 Code: 8480-6 BMI: 36.0 Code: 26250-6 Heart Rate 1: 87 bpm Height: 5'7" SpO2: 98% Weight: 230 lbs 09/24/2018 Blood Pressure 1: 140/82 Code: 8480-6 BMI: 36.0 Code: 50590-9 Heart Rate 1: 86 bpm Height: 5'7" SpO2: 98% Temperature: 37.1 (C ) / 98.7 (F) Weight: 230 lbs 08/16/2018 Blood Pressure 1: 148/82 Code: 8480-6 Blood Pressure 2: 157/92 Code: 8480-6 BMI: 35.9 Code: 93823-5 Heart Rate 1: 72 bpm Height: 5'7" SpO2: 96% Weight: 229 lbs 08/02/2018 Blood Pressure 1: 142/86 Code: 8480-6 BMI: 35.2 Code: 73935-3 Heart Rate 1: 101 bpm Height: 5'7" SpO2: 97% Weight: 225 lbs 05/31/2018 Blood Pressure 1: 134/82 Code: 8480-6 BMI: 35.4 Code: 70856-1 Heart Rate 1: 91 bpm Height: 5'7" SpO2: 96% Weight: 226 lbs 05/20/2018 Blood Pressure 1: 160/100 Code: 8480-6 BMI: 35.2 Code: 13370-9 Heart Rate 1: 89 bpm Height: 5'7" SpO2: 98% Weight: 225 lbs 05/10/2018 Blood Pressure 1: 124/70 Code: 8480-6 BMI: 35.1 Code: 91539-9 Heart Rate 1: 93 bpm Height: 5'7" SpO2: 99% Weight: 224 lbs 01/15/2018 Blood Pressure 1: 142/92 Code: 8480-6 BMI: 36.3 Code: 03180-6 Heart Rate 1: 77 bpm Height: 5'7" SpO2: 98% Weight: 232 lbs 12/15/2017 Blood Pressure 1: 156/98 Code: 8480-6 BMI: 36.2 Code: 30296-8 Heart Rate 1: 87 bpm Height: 5'7" [...] eye 01/15/2018 None vision change Quality ac [place] 01/15/2018 None vision change Quality lo ss [...] vision 12/15/2017 None vision change Quality ac [place] 12/15/2017 None vision change Onset and Resolution sudden in onset 12/15/2017 None vision change Onset of Symptom 3.5 weeks ago 12/15/2017 None vision change Limitation on Activities severely limits vision 12/15/2017 None vision change Triggers n o known associated factors 12/15/2017 None Advance Directives No Advance Directive data Encounters Encounter Performer Loca tion Codes Date ([id number]) 85327 EST. P ATIENT, LEVEL IV Diagnosis: Essential (primary) hypertension[ICD10: I10] Diagnosis: Cervicalgia[ICD10: M54.2] Diagnosis: Spinal stenosis, thoracic region[ICD10: M48.04] Diagnosis: Testicular hypofunction[ICD10: E29.1] Radha Gonzalez MD, [facility] CPT-4: 29559 11/01/2018 [id number] EST. PATIENT, LEVEL III Diagnosis: Acute upper respiratory infection, unspecified[ICD10: J06.9] Diagnosis: Other allergic rhinitis[ICD10: J30.89] Sonia Gonzalez MD, [facility] CPT-4: 59897 09/24/2018 ([id number]) 49603 EST. P ATIENT, LEVEL III Diagnosis: Essential (primary) hypertension[ICD10: I10] Diagnosis: Testicular hypofunction[ICD10: E29.1] Radha Gonzalez MD, [facility] CPT-4: 14215 08/16/2018 ([id number]) 35448 EST. P ATIENT, LEVEL IV Diagnosis: Essential (primary) hypertension[ICD10: I10] Diagnosis: Testicular hypofunction[ICD10: E29.1] Diagnosis: Spinal stenosis, thoracic region[ICD10: M48.04] Diagnosis: Rash and other nonspecific skin eruption[ICD10: R21] Diagnosis: VACCIN FOR INFLUENZA[ICD10: Z23] Radha Gonzalez MD, [facility] CPT-4: 99395 08/02/2018 ([id number]) 39843 EST. P ATIENT, LEVEL IV Diagnosis: Essential (primary) hypertension[ICD10: I10] Diagnosis: Cervicalgia[ICD10: M54.2] Radha Gonzalez MD, [facility] CPT-4: 14765 05/31/2018 ([id number]) 90777 EST. P ATIENT, LEVEL IV Diagnosis: Spinal stenosis, cervical region[ICD10: M48.02] Diagnosis: Spinal stenosis, thoracic region[ICD10: M48.04] Diagnosis: Essential (primary) hypertension[ICD10: I10] Diagnosis: Testicular hypofunction[ICD10: E29.1] Hannah Gonzalez MD, [facility] CPT-4: 08154 05/20/2018 16862 EST. PATIENT, LEVEL III Diagnosis: Ischemic optic neuropathy, left eye[ICD10: H47.012] Diagnosis: Essential (primary) hypertension[ICD10: I10] Diagnosis: Decreased libido[ICD10: R68.82] Diagnosis: Other malaise[ICD10: R53.81] Diagnosis: Other fatigue[ICD10: R53.83] Diagnosis: Cervicalgia[ICD10: M54.2] Diagnosis: Pain in thoracic spine[ICD10: M54.6] Sonia Gonzalez MD, [facility] CPT- 4: 39079 05/10/2018 ([id number]) 77327 EST. 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 11/01/2018 Appointment: Radha Gonzalez WPtel: [address] [place], [place] [id number] (15 min) Moderate 11/01/2018 Patient Education: Patient [...] allergy spray. 09/24/2018 Appointment: Sonia Potter WPtel: [phone] [phone] (15 min) Moderate 09/24/2018 Patient Education: Patient [...] at home. Multiple symptoms - referral to [facility] - appt in September 30, 2018. 08/16/2018 Appointment: Radha Gonzalez WPtel: [phone] [facility] (15 min) Moderate 08/16/2018 Patient Education: [...] at home. Multiple symptoms - referral to [facility] - rashes, hypogonadism, optic neuritis - all points to possible autoimmune syndrome. Spinal stenosis - of thoracic region - pt to talk to Dr. Dunaway about referral to a different specialist for his mid- back. Hypogonadism - continue with testosterone. Flu shot given today in clinic. 08/02/2018 [facility]ment[phone] [phone] ([facility] min) Moderate 08/02/2018 Patient Education: Patient Medication Summary Completed 08/02/2018 Care Plan: Referral Order SNOMED-CT : 990598653 Pending 08/02/2018 Appointment: Injection 07/15/2018 Patient Education: [...] Cervical spine stenosis - [facility]. I have also recommended a Referral to Dr. Dunaway. I have called and talked to Dr. Dunaway - he looked at the pt's imaging and agrees that getting the pt in to be seen soon would be a preferred option. 05/31/2018 Appointment: [facility] [phone] [phone] [place] (15 min) Moderate 05/31/2018 Patient Education: Patient Medication Summary Completed 05/31/2018 Care Plan: Referral Order SNOMED-CT : 321111809 Pending 05/31/2018 Care Plan: Referral Order SNOMED-CT : 905081614 Pending 05/31/2018 Appointment: Injection 05/21/2018 Patient Education: Patient Medication Summary Completed 05/21/2018 Care Plan: Referral Order SNOMED-CT : 617624662 Pending 05/21/2018 Visit Plan: Cervical and thoracic s tenosis with spinal cord compression -refer for appt with Dr Marr -rx for hydrocodone for pain-start gabapentin at bedtime Soft tissue lesion-left chest-schedule CTfor further evaluation HTN-elevated today-hold adderall-monitor blood pressure 05/20/2018 Appointment: Hannah Simons WPtel: [facility]5 [phone] [place] (15 min) Moderate 05/20/2018 Patient Education: Patient Medication Summary Completed 05/20/2018 Visit Plan: Hypertension - well con nathaniel - continue with current medications, continue with [...] Potter WPtel: [phone] [id number] [place] (15 min) Moderate 05/10/2018 Patient Education: Patient Medication Summary Completed 05/10/2018 Visit Plan: Sleep apnea - rx for cp ap - actually autopap was recommended and pt given rx today. HTN - referral to dr. kapoor - pt needs stress testing. 01/15/2018 Appointment: Radha Gonzalez WPtel: [phone] [facility] [place] (15 min) Moderate 01/15/2018 Patient Education: Patient Medication Summary Completed 01/15/2018 Care Plan: Referral Order SNOMED-CT : [id number] Pending 01/15/2018 Visit Plan: Well Adult - [...] month. 12/15/2017 Appointment: Radha Gonzalez WPtel: [phone] [facility]66[facility] New Patient 12/15/2017 Patient Education: Patient Medication Summary Completed 12/15/2017 Care Plan: CHEST X-RAY 2VW FRONTAL&LATL LOINC : 79359-5 Pending 12/15/2017 Appointment: Radha Gonzalez WPtel: [facility] (15 min) Moderate 12/08/2017 Appointment: (S) [...] Ordering Provider 08/03 Referral info faxed to [facility]. Patient informed to be expecting a call from them with appt info Appointment Requested Referral: External, Ordering Provider Referral Appointment Requested Referral: External, Ordering Provider I called today; they will call him to schedule. Completed Referral: Armani Dunaway Referral Appointment Requested Referral: Mayte Kapoor Referral Appointment Requested Referral: [facility] WPtel: [phone] Referral Appointment Requested Referral: External, Ordering [...] at home. Multiple symptoms - referral to [facility] - rashes, hypogonadism, optic neuritis - all [...] at home. Multiple symptoms - referral to [facility] - appt in September 30, 2018. . [...]
[2020-04-28 00:56] LABS: AMYLASE 47 U/L (25-125); CALCIUM 10.6 MG/DL (8.5-10.1)
--- OUTSIDE RECORDS SUMMARY | 2020-04-28 00:56 | XMS REPORT | CCD ---
Author Author Nilton Gonzalez Organization Radha Gonzalez MD, [facility] Address [address] [place] [address] Phone Care Team Providers Care Pilot Control Operator Helper Name Role Phone PP Unavailable CCM Unavailable Summary Purpose Interface Exchange Insurance Providers Payer name Policy type / Coverage type Covered libertarian ID Effective Begin Date Effective End Date CORESOURCES Commercial Insurance [id number] 2017 Unknown Family history Brother Diagnosis Age At Onset Alcoholism Unknown Father Diagnosis Age At Onset Hypercholesterolemia Unknown Social History Social History Element Codes Description Effective Dates Marital status Unknown S chanda 12/15/2017 Number of children Unknown 1 12/15/2017 Employment 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 [employer] 12/15/[address]: 374624095 Never smoker 12/15/[address]: 230345 Currently drinks alcohol <1 per week 12/15/2017 [...] ICD-9: 724.01 ICD-10: M48.04 Active 05/20/2018 Unknown 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 Active 05/20/2018 Unknown Acute upper respirat ory [...] region ICD-9: 724.01 ICD-10: M48.04 05/20/2018 Active 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 05/20/2018 Active Acute upper respirat ory infection, [...] Fill Instructions Zorvolex 35 mg capsule RxNorm: 8126686 1 Capsule(s) PO TID as needed for pain 11/15/2018 05/13/2019 Ac tive ketoconazole 2 % top ical cream RxNorm: 861631 APPLY ONE GRAM TOPICA LLY TWICE A DAY 11/15/2018 11/29/2018 Ac tive hydrocodone 5 mg-fanny taminophen 325 mg tablet RxNorm: 300803 1 Tablet(s) PO TID LA N 11/02/2018 No Stop Date Active Singulair 10 mg tablet RxNorm: 850057 1 Tablet(s) PO daily 11/01/2018 07/28/2019 Active testosterone cypiona te 200 mg/mL intramuscular oil RxNorm: 9083253 1 Milliliter(s) IM 2 x month 11/01/2018 02/27/2019 Active Adderall 30 mg tablet RxNorm: 874741 2 Tablet(s) PO daily 10/29/2018 11/27/2018 Active gabapentin 300 mg ca psule RxNorm: 565501 1 Capsule(s) PO BID m ay take TID 10/19/2018 02/15/2019 Ac tive gabapentin 300 mg ca psule RxNorm: 431403 1 Capsule(s) PO BID m ay take TID 10/19/2018 10/18/2018 In active alprazolam 1 mg tablet RxNorm: 295479 1 Tablet(s) PO TID as needed 10/15/2018 12/13/2018 Active testosterone cypiona te 200 mg/mL intramuscular oil RxNorm: 785576 Milliliter(s) IM 09/28/2018 09/28/2018 In active pravastatin 40 mg ta blet RxNorm: 245763 TAKE ONE TABLET BY MO UT EVERY NIGHT AT BEDTIME 09/27/2018 09/21/2019 Active Tamiflu 75 mg capsule RxNorm: 208643 1 Capsule(s) PO BID 09/24/2018 09/28/2018 Inactive Adderall 30 mg tablet RxNorm: 821093 2 Tablet(s) PO daily 09/20/2018 10/19/2018 Inactive hydrocodone 5 mg-fanny taminophen 325 mg tablet RxNorm: 734140 1 Tablet(s) PO TID LA N 09/20/2018 11/01/2018 In active testosterone cypiona te 200 mg/mL intramuscular oil RxNorm: 650916 Milliliter(s) IM 09/16/2018 09/16/2018 In active testosterone cypiona te 200 mg/mL intramuscular oil RxNorm: 571457 1 Milliliter(s) IM 09/02/2018 09/02/2018 Inactive testosterone cypiona te 200 mg/mL intramuscular oil RxNorm: 368570 Milliliter(s) IM 08/19/2018 08/19/2018 In active tramadol 50 mg tablet RxNorm: 021127 1-2 Tablet(s) PO Q6 as needed 08/18/2018 No Stop Date Active Adderall 30 mg tablet RxNorm: 181387 2 Tablet(s) PO daily 08/18/2018 09/16/2018 Inactive Dexilant 60 mg capsu le, delayed release RxNorm: 754201 1 Capsule(s) PO BID 08/17/2018 08/11/2019 Ac tive atenolol 50 mg tablet RxNorm: 330798 1 Tablet(s) PO BID 08/17/2018 08/11/2019 Active ketoconazole 2 % top ical cream RxNorm: 663095 1 Gram(s) TOP BID 08/17/2018 08/26/2018 Inactive Zorvolex 35 mg capsule RxNorm: 1314655 1 Capsule(s) PO TID as needed for pain 08/17/2018 08/16/2018 In active Zorvolex 35 mg capsule RxNorm: 7705974 1 Capsule(s) PO TID as needed for pain 08/17/2018 11/14/2018 In active ketoconazole 2 % top ical cream RxNorm: 874635 1 Gram(s) TOP BID 08/02/2018 08/11/2018 Inactive hydrocortisone 2.5 % topical cream RxNorm: 586233 1 Application TOP BID 07/21/2018 No Stop Date Active Adderall 30 mg tablet RxNorm: 785802 2 Tablet(s) PO daily 07/20/2018 08/17/2018 Inactive testosterone cypiona te 200 mg/mL intramuscular oil RxNorm: 149667 Milliliter(s) IM 07/15/2018 07/15/2018 In active alprazolam 1 mg tablet RxNorm: 630457 1 Tablet(s) PO TID as needed 07/12/2018 09/07/2018 Inactive hydrocodone 5 mg-fanny taminophen 325 mg tablet RxNorm: 157836 1 Tablet(s) PO TID LA N 06/30/2018 09/19/2018 In active pravastatin 40 mg ta blet RxNorm: 771597 1 Tablet(s) PO QHS 06/18/2018 09/15/2018 Inactive Adderall 30 mg tablet RxNorm: 074275 2 Tablet(s) PO daily 06/18/2018 07/17/2018 Inactive testosterone cypiona te 200 mg/mL intramuscular oil RxNorm: 265507 Milliliter(s) IM 06/17/2018 06/17/2018 In active Voltaren 1 % topical gel RxNorm: 364089 APPLY TOPICALLY TWO T IMES A DAY 06/16/2018 07/21/2018 In active Vitamin D2 50,000 un it capsule RxNorm: 6448106 1 Capsule(s) PO QW 05/21/2018 No Stop Date Active Adderall 30 mg tablet RxNorm: 624049 2 Tablet(s) PO daily 05/21/2018 06/17/2018 Inactive testosterone cypiona te 200 mg/mL intramuscular oil RxNorm: 025128 Milliliter(s) IM 05/21/2018 05/21/2018 In active testosterone cypiona te 200 mg/mL intramuscular oil RxNorm: 8677812 1 Milliliter(s) IM monthly 05/20/2018 09/16/2018 Inactive testosterone cypiona te 200 mg/mL intramuscular oil RxNorm: 904225 1 Milliliter(s) IM monthly 05/20/2018 05/19/2018 Inactive hydrocodone 5 mg-fanny taminophen 325 mg tablet RxNorm: 081991 1 Tablet(s) PO TID LA N 05/20/2018 06/29/2018 In active Vitamin D2 50,000 un it capsule RxNorm: 7708286 1 Capsule(s) PO QW 05/18/2018 05/20/2018 Inactive triamcinolone aceton destin 0.025 % topical cream RxNorm: 2067643 1 Application TOP BI D 05/13/2018 No Stop Date Active Dexilant 60 mg capsu le, delayed release RxNorm: 592058 1 Capsule(s) PO BID 05/13/2018 08/16/2018 In active Zorvolex 35 mg capsule RxNorm: 2262908 1 Capsule(s) PO TID as needed for pain 05/12/2018 08/09/2018 In active Voltaren 1 % topical gel RxNorm: 351894 1 Application TOP BID 05/12/2018 06/15/2018 Inactive acyclovir 400 mg tablet RxNorm: 165395 1 Tablet(s) PO TID as needed take at ons et of symptoms of cold sores x 5 days 05/10/2018 No Stop Date Active paroxetine 20 mg tablet RxNorm: 3090574 2 Tablet(s) PO QHS 05/10/2018 10/31/2019 Active ProAir HFA 90 mcg/ac tuation aerosol inhaler RxNorm: 952799 1 Puff(s) INH QID as needed 05/10/2018 No Stop Date Active trazodone 100 mg tablet RxNorm: 645215 1 Tablet(s) PO QHS 05/10/2018 11/05/2018 Inactive baclofen 20 mg tablet RxNorm: 243322 1 Tablet(s) PO TID as needed muscle spas ms 05/10/2018 06/08/2018 In active Singulair 10 mg tablet RxNorm: 151845 1 Tablet(s) PO daily 05/10/2018 08/07/2018 Inactive atenolol 50 mg tablet RxNorm: 424847 1 Tablet(s) PO BID 05/10/2018 08/07/2018 Inactive triamcinolone aceton destin 0.025 % topical cream RxNorm: 4253540 1 Application TOP BI D 05/10/2018 05/12/2018 In active tramadol 50 mg tablet RxNorm: 505426 1 Tablet(s) PO TID as needed 05/10/2018 05/19/2018 Inactive Dexilant 60 mg capsu le, delayed release RxNorm: 528089 1 Capsule(s) PO daily 05/10/2018 05/12/2018 In active alprazolam 1 mg tablet RxNorm: 474362 1 Tablet(s) PO TID as needed 05/10/2018 08/06/2018 Inactive cyclobenzaprine 10 m g tablet RxNorm: 247088 1 Tablet(s) PO TID as needed muscle spasms 05/07/2018 07/12/2018 Inactive trazodone 100 mg tablet RxNorm: 980074 1 Tablet(s) PO QHS 05/07/2018 05/09/2018 Inactive Adderall 30 mg tablet RxNorm: 632271 2 Tablet(s) PO daily 04/19/2018 05/18/2018 Inactive alprazolam 1 mg tablet RxNorm: 577310 1 Tablet(s) PO BID 04/19/2018 05/09/2018 Inactive Adderall 30 mg tablet RxNorm: 248447 2 Tablet(s) PO daily 03/26/2018 04/18/2018 Inactive paroxetine 20 mg tablet RxNorm: 0768831 2 Tablet(s) PO QHS 03/15/2018 05/09/2018 Inactive Adderall 30 mg tablet RxNorm: 548980 2 Tablet(s) PO daily 02/25/2018 03/25/2018 Inactive cyclobenzaprine 10 m g tablet RxNorm: 572664 1 Tablet(s) PO TID as needed muscle spasms 02/22/2018 05/06/2018 Inactive tramadol 50 mg tablet RxNorm: 745728 1 Tablet(s) PO TID as needed 02/22/2018 03/07/2018 Inactive tramadol 50 mg tablet RxNorm: 147866 1 Tablet(s) PO TID as needed 02/22/2018 02/21/2018 Inactive trazodone 100 mg tablet RxNorm: 511391 1 Tablet(s) PO QHS 02/03/2018 05/03/2018 Inactive trazodone 100 mg tablet RxNorm: 556603 1 Tablet(s) PO QHS 02/03/2018 02/02/2018 Inactive Adderall 30 mg tablet RxNorm: 140658 2 Tablet(s) PO daily 01/27/2018 02/18/2018 Inactive acyclovir 400 mg tablet RxNorm: 855021 1 Tablet(s) PO TID as needed take at ons et of symptoms of cold sores x 5 days 01/15/2018 05/09/2018 Inactive Bactrim DS 800 mg-16 0 mg tablet RxNorm: 188745 1 Tablet(s) PO BID 01/11/2018 01/17/2018 Inactive Bactrim DS 800 mg-16 0 mg tablet RxNorm: 049686 1 Tablet(s) PO BID 01/11/2018 01/10/2018 Inactive Dexilant 60 mg capsu le, delayed release RxNorm: 435875 1 Capsule(s) PO daily 12/23/2017 05/09/2018 In active Dexilant 60 mg capsu le, delayed release RxNorm: 996014 1 Capsule(s) PO daily 12/23/2017 12/22/2017 In active atenolol 50 mg tablet RxNorm: 393994 1 Tablet(s) PO BID 12/15/2017 05/09/2018 Inactive alprazolam 1 mg tablet RxNorm: 411116 1-1.5 Tablet(s) PO daily 12/15/2017 04/18/2018 Inactive ceftriaxone 500 mg s olution for injection RxNorm: 3628475 Inj 08/03/2015 08/03/2015 Inactive paroxetine 20 mg tablet RxNorm: 7039373 2 Tablet(s) PO QHS 08/01/2015 10/29/2015 Inactive pravastatin 40 mg ta blet RxNorm: 870023 1/2 Tablet(s) PO QHS 08/01/2015 12/14/2017 Inactive Trazadone 100mg 100 mg RxNorm: 1 PO daily 08/01/2015 11/27/2015 Inactive Trazadone 100mg 100 mg RxNorm: 1 PO daily 08/01/2015 05/04/2018 Inactive atenolol 50 mg tablet RxNorm: 654959 1 Tablet(s) PO daily 08/01/2015 10/29/2015 Inactive ibuprofen 800 mg tablet RxNorm: 007793 1 Tablet(s) PO BID -TID No Start Date Active Zyrtec 10 mg tablet RxNorm: 7811155 1 Tablet(s) PO daily No Start Date Active pravastatin 40 mg ta blet RxNorm: 151482 1/2 Tablet(s) PO QHS No Start Date 07/31/2015 Inactive Benadryl Allergy 25 mg tablet RxNorm: 5710501 1 Tablet(s) PO daily No Start Date 07/19/2018 Inactive Adderall 30 mg tablet RxNorm: 492515 2 Tablet(s) PO daily No Start Date 01/26/2018 Inactive Aspirin Low Dose 81 mg tablet,delayed release RxNorm: 588482 1 Tablet(s) PO BID No Start Date 07/19/2018 Inactive Singulair 10 mg tablet RxNorm: 266894 1 Tablet(s) PO daily No Start Date 05/09/2018 Inactive cyclobenzaprine 10 m g tablet RxNorm: 287350 1 Tablet(s) PO TID as needed muscle spasms No Start Date 02/21/2018 Inactive Trazadone 100mg 100 mg RxNorm: 1 PO daily No Start Date 07/31/2015 Inactive hydrocortisone 2.5 % topical cream RxNorm: 519839 1 Application TOP BID No Start Date 07/20/2018 Inactive alprazolam 1 mg tablet RxNorm: 221823 2 Tablet(s) PO daily No Start Date 12/14/2017 Inactive tramadol 50 mg tablet RxNorm: 902263 1-2 Tablet(s) PO Q6 as needed No Start Date 08/17/2018 Inactive Vitamin D2 50,000 un it capsule RxNorm: 9356350 1 Capsule(s) PO QW No Start Date 05/17/2018 Inactive pantoprazole 40 mg t ablet,delayed release RxNorm: 879032 1 Tablet(s) PO BID No Start Date 12/22/2017 Inactive atenolol 50 mg tablet RxNorm: 734152 1 Tablet(s) PO daily No Start Date 07/31/2015 Inactive paroxetine 20 mg tablet RxNorm: 278770 2 Tablet(s) PO QHS No Start Date 07/31/2015 Inactive Medication Administered Medication Codes Instruc tions Start Date Status testosterone cypionate 200 mg/mL intramuscular oil RxNorm: 365314 Milliliter 09/28/2018 No longer Active testosterone cypionate 200 mg/mL intramuscular oil RxNorm: 926457 Milliliter 09/16/2018 No longer Active testosterone cypionate 200 mg/mL intramuscular oil RxNorm: 954364 1Milliliter 09/02/2018 No longer Active testosterone cypionate 200 mg/mL intramuscular oil RxNorm: 564172 Milliliter 08/19/2018 No longer Active testosterone cypionate 200 mg/mL intramuscular oil RxNorm: 846608 Milliliter 07/15/2018 No longer Active testosterone cypionate 200 mg/mL intramuscular oil RxNorm: 159338 Milliliter 06/17/2018 No longer Active testosterone cypionate 200 mg/mL intramuscular oil RxNorm: 831401 Milliliter 05/21/2018 No longer Active ceftriaxone 500 mg solution for injection RxNorm: 6209362 08/03/2015 No longer A ctive Immunizations Vaccine Codes Date Status Influenza CVX: 141 08/02 completed Tetanus, Diptheria, Pertussis CVX: 113 05/16/2011 completed Tetanus/Diptheria CVX: 113 05/16/2011 completed Assessments Condition Codes Effectiv e Dates Cervicalgia ICD-10: M54.2 ICD-9: 723.1 11/01/2018 Essential (primary) hypertension ICD -10: I10 ICD-9: 401.1 11/01/2018 Spinal stenosis, thoracic region ICD -10: M48.04 ICD-9: 724.01 11/01/2018 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 ICD-9: 257.2 11/01/2018 Other allergic rhinitis ICD-10: J30. 89 [...] Item Item Code Result Date Testosterone Serum 530723 TESTOSTERONE 44.1 ng/dL 08/18/2018 Hemoglobin 20020721 WBC 7.62 thou/uL 08/17/2018 Hemoglobin 745858 RBC 5.23 mil/uL 08/17/2018 Hemoglobin 614775 HEMOGL OBIN 15.0 g/dL 08/17/2018 Hemoglobin 20020721 HEMATO CRIT 45.0 % 08/17/2018 Hemoglobin 20020721 MCV 86.0 fL 08/17/2018 Hemoglobin 20020721 MCH 28.7 pg 08/17/2018 Hemoglobin 20020721 MCHC 33.3 g/dL 08/17/2018 Hemoglobin 20020721 RDW-CV 12.9 % 08/17/2018 Hemoglobin 341550 PLATEL ET COUNT 313 thou/uL 08/17/2018 Hematocrit 962165 WBC 7.62 thou/uL 08/17/2018 Hematocrit 022789 RBC 5.23 mil/uL 08/17/2018 Hematocrit HEMOGL OBIN 15.0 g/dL 08/17/2018 Hematocrit HEMATO CRIT 45.0 % 08/17/2018 Hematocrit MCV 86.0 fL 08/17/2018 Hematocrit MCH 28.7 pg 08/17/2018 Hematocrit MCHC 33.3 g/dL 08/17/2018 Hematocrit RDW-CV 12.9 % 08/17/2018 Hematocrit PLATEL ET COUNT 313 thou/uL 08/17/2018 Culture Mrsa 311688 MRSA CULTURE SEE NOTES 06/21/2018 Comp. Metabolic Panel (14) 48397 GLUCOSE 101 mg/dL 06/18/2018 Comp. Metabolic Panel (14) 77839 BUN 18 mg/dL 06/18/2018 Comp. Metabolic Panel (14) 71107 CREATININE 0.99 mg/dL 06/18/2018 Comp. Metabolic Panel (14) 24468 SODIUM 141 mmol/L 06/18/2018 Comp. Metabolic Panel (14) 54927 POTASSIUM 4.3 mmol/L 06/18/2018 Comp. Metabolic Panel (14) 89805 CHLORIDE 103 mmol/L 06/18/2018 Comp. Metabolic Panel (14) 13278 CARBON DIOXIDE 23 mmol/L 06/18/2018 Comp. Metabolic Panel (14) 66480 CALCIUM 9.8 mg/dL 06/18/2018 Comp. Metabolic Panel (14) 91523 TOTAL PROTEIN 7.1 g/dL 06/18/2018 Comp. Metabolic Panel (14) 79948 ALBUMIN 5.2 g/dL 06/18/2018 Comp. Metabolic Panel (14) 81158 ALKALINE PHOSPHATASE 65 U/L 06/18/2018 Comp. Metabolic Panel (14) 33878 TOTAL BILIRUBIN 0.6 mg/dL 06/18/2018 Comp. Metabolic Panel (14) 72816 SGOT (AST) 21 U/L 06/18/2018 Comp. Metabolic Panel (14) 45244 SGPT (ALT) 24 U/L 06/18/2018 Comp. Metabolic Panel (14) 53843 eGFR (mL/min/1.73m2) 115 06/18/2018 Comp. Metabolic Panel (14) 10994 INTERPRETATION 06/18/2018 Cbc With Differential/Platelet 45155 WBC 4.55 thou/uL 8 Cbc With Differential/Platelet 90623 RBC 5.13 mil/uL 06/18/2018 Cbc With Differential/Platelet 05733 HEMOGLOBIN 14.4 g/dL 06/18/2018 Cbc With Differential/Platelet 71010 HEMATOCRIT 44.1 % 06/18/2018 Cbc With Differential/Platelet 65105 MCV 85.9 fL 06/18/2018 Cbc With Differential/Platelet 96213 MCH 28.1 pg 06/18/2018 Cbc With Differential/Platelet 49160 MCHC 32.7 g/dL 06/18/2018 Cbc With Differential/Platelet 35138 RDW-CV 13.4 % 06/18/2018 Cbc With Differential/Platelet 91415 PLATELET COUNT 287 thou/uL 06/18/2018 Cbc With Differential/Platelet 15765 NEUTROPHIL % 53.9 % 06/18/2018 Cbc With Differential/Platelet 20081 LYMPHOCYTE % 36.1 % 06/18/2018 Cbc With Differential/Platelet 83911 MONOCYTE % 7.4 % 06/18/2018 Cbc With Differential/Platelet 57190 EOS % 1.9 % 06/18/2018 Cbc With Differential/Platelet 98800 BASO % 0.8 % 06/18/2018 Cbc With Differential/Platelet 60880 NEUTROPHIL ABS # 2.45 thou/uL 06/18/2018 Cbc With Differential/Platelet 75087 LYMPH ABS # 1.64 thou/uL 06/18/2018 Cbc With Differential/Platelet 14570 MONOCYTE ABS # 0.34 thou/uL 06/18/2018 Cbc With Differential/Platelet 40718 EOS ABS # 0.09 thou/uL 8 Cbc With Differential/Platelet 81733 BASO ABS # 0.04 thou/uL 06/18/2018 Review [...] Procedure Codes Date THER/PROPH/DIAG INJ SC/IM CPT-4: 08410 09/28/2018 THER/PROPH/DIAG INJ SC/IM CPT-4: 24364 09/16/2018 THER/PROPH/DIAG INJ SC/IM CPT-4: 91475 09/02/2018 THER/PROPH/DIAG INJ SC/IM CPT-4: 76335 08/19/2018 IMMUNIZATION ADMIN CPT- 4: 68897 08/02/2018 FLU VAC NO PRSV 4 VA L 3 YRS+ CPT-4: 57233 08/02/2018 THER/PROPH/DIAG INJ SC/IM CPT-4: 80544 07/15/2018 THER/PROPH/DIAG INJ SC/IM CPT-4: 65915 06/17/2018 THER/PROPH/DIAG INJ SC/IM CPT-4: 44718 05/21/2018 THER/PROPH/DIAG INJ SC/IM CPT-4: 28784 08/03/2015 ROCEPHIN, PER 250 MG CPT-4: J0696 08/03/2015 Vital Signs Date Vital 11/01/2018 Blood Pressure 1: 146/82 Code: 8480-6 BMI: 36.0 Code: 31383-4 Heart Rate 1: 87 bpm Height: 5'7" SpO2: 98% Weight: 230 lbs 09/24/2018 Blood Pressure 1: 140/82 Code: 8480-6 BMI: 36.0 Code: 19534-6 Heart Rate 1: 86 bpm Height: 5'7" SpO2: 98% Temperature: 37.1 (C ) / 98.7 (F) Weight: 230 lbs 08/16/2018 Blood Pressure 1: 148/82 Code: 8480-6 Blood Pressure 2: 157/92 Code: 8480-6 BMI: 35.9 Code: 44497-2 Heart Rate 1: 72 bpm Height: 5'7" SpO2: 96% Weight: 229 lbs 08/02/2018 Blood Pressure 1: 142/86 Code: 8480-6 BMI: 35.2 Code: 56531-9 Heart Rate 1: 101 bpm Height: 5'7" SpO2: 97% Weight: 225 lbs 05/31/2018 Blood Pressure 1: 134/82 Code: 8480-6 BMI: 35.4 Code: 42090-5 Heart Rate 1: 91 bpm Height: 5'7" SpO2: 96% Weight: 226 lbs 05/20/2018 Blood Pressure 1: 160/100 Code: 8480-6 BMI: 35.2 Code: 92049-5 Heart Rate 1: 89 bpm Height: 5'7" SpO2: 98% Weight: 225 lbs 05/10/2018 Blood Pressure 1: 124/70 Code: 8480-6 BMI: 35.1 Code: 81333-5 Heart Rate 1: 93 bpm Height: 5'7" SpO2: 99% Weight: 224 lbs 01/15/2018 Blood Pressure 1: 142/92 Code: 8480-6 BMI: 36.3 Code: 35903-0 Heart Rate 1: 77 bpm Height: 5'7" SpO2: 98% Weight: 232 lbs 12/15/2017 Blood Pressure 1: 156/98 Code: 8480-6 BMI: 36.2 Code: 49463-2 Heart Rate 1: 87 bpm Height: 5'7" [...] eye 01/15/2018 None vision change Quality ac [place] 01/15/2018 None vision change Quality lo ss [...] vision 12/15/2017 None vision change Quality ac [place] 12/15/2017 None vision change Onset and Resolution sudden in onset 12/15/2017 None vision change Onset of Symptom 3.5 weeks ago 12/15/2017 None vision change Limitation on Activities severely limits vision 12/15/2017 None vision change Triggers n o known associated factors 12/15/2017 None Advance Directives No Advance Directive data Encounters Encounter Performer Loca tion Codes Date ([id number]) 18096 EST. P ATIENT, LEVEL IV Diagnosis: Essential (primary) hypertension[ICD10: I10] Diagnosis: Cervicalgia[ICD10: M54.2] Diagnosis: Spinal stenosis, thoracic region[ICD10: M48.04] Diagnosis: Testicular hypofunction[ICD10: E29.1] Radha Gonzalez MD, [facility] CPT-4: 62053 11/01/2018 [id number] EST. PATIENT, LEVEL III Diagnosis: Acute upper respiratory infection, unspecified[ICD10: J06.9] Diagnosis: Other allergic rhinitis[ICD10: J30.89] Sonia Gonzalez MD, [facility] CPT-4: 97375 09/24/2018 ([id number]) 63471 EST. P ATIENT, LEVEL III Diagnosis: Essential (primary) hypertension[ICD10: I10] Diagnosis: Testicular hypofunction[ICD10: E29.1] Radha Gonzalez MD, [facility] CPT-4: 18107 08/16/2018 ([id number]) 10384 EST. P ATIENT, LEVEL IV Diagnosis: Essential (primary) hypertension[ICD10: I10] Diagnosis: Testicular hypofunction[ICD10: E29.1] Diagnosis: Spinal stenosis, thoracic region[ICD10: M48.04] Diagnosis: Rash and other nonspecific skin eruption[ICD10: R21] Diagnosis: VACCIN FOR INFLUENZA[ICD10: Z23] Radha Gonzalez MD, [facility] CPT-4: 86357 08/02/2018 ([id number]) 93672 EST. P ATIENT, LEVEL IV Diagnosis: Essential (primary) hypertension[ICD10: I10] Diagnosis: Cervicalgia[ICD10: M54.2] Radha Gonzalez MD, [facility] CPT-4: 88729 05/31/2018 ([id number]) 47366 EST. P ATIENT, LEVEL IV Diagnosis: Spinal stenosis, cervical region[ICD10: M48.02] Diagnosis: Spinal stenosis, thoracic region[ICD10: M48.04] Diagnosis: Essential (primary) hypertension[ICD10: I10] Diagnosis: Testicular hypofunction[ICD10: E29.1] Hannah Gonzalez MD, [facility] CPT-4: 20230 05/20/2018 [id number] EST. 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 11/01/2018 Appointment: Radha Gonzalez WPtel: [address] [place], [place] [phone] (15 min) Moderate 11/01/2018 Patient Education: Patient [...] spray. 09/24/2018 App[facility]ment: [facility] [phone] [id number] (15 min) Moderate 09/24/2018 Patient Education: Patient [...] symptoms - referral to [facility] - appt in September 30, 2018. 08/16/2018 Appointment: [facility] [phone] [facility] (15 min) Moderate 08/16/2018 Patient Education: Patient [...] symptoms - referral to [facility] - rashes, hypogonadism, optic neuritis - all points to possible autoimmune syndrome. Spinal stenosis - of thoracic region - pt to talk to Dr. Dunaway about referral to a different specialist for his mid- back. Hypogonadism - continue with testosterone. Flu shot given today in clinic. 08/02/2018 Appointment: Radha Gonzalez [facility] [phone] [facility] (15 min) Moderate 08/02/2018 Patient Education: Patient Medication Summary Completed 08/02/2018 Care Plan: Referral Order SNOMED-CT : 188191394 Pending 08/02/2018 Appointment: Injection 07/15/2018 Patient Education: [...] Cervical spine stenosis - referral to [facility] physical therapy. I have also recommended a Referral to Dr. Dunaway. I have called and talked to Dr. Dunaway - he looked at the pt's imaging and agrees that getting the pt in to be seen soon would be a preferred option. 05/31/2018 Appointment: Radha Gonzalez WPtel: [facility] [place] (15 min) Moderate 05/31/2018 Patient Education: Patient Medication Summary Completed 05/31/2018 Care Plan: Referral Order SNOMED-CT : 494469393 Pending 05/31/2018 Care Plan: Referral Order SNOMED-CT : 309729412 Pending 05/31/2018 Appointment: Injection 05/21/2018 Patient Education: Patient Medication Summary Completed 05/21/2018 Care Plan: Referral Order SNOMED-CT : 740340697 Pending 05/21/2018 Visit Plan: Cervical and thoracic s tenosis with spinal cord compression -refer for appt with Dr Marr -rx for hydrocodone for pain-start gabapentin at bedtime Soft tissue lesion-left chest-schedule CTfor further evaluation HTN-elevated today-hold adderall-monitor blood pressure 05/20/2018 Appointment: [facility] Sim[facility] [phone] [phone] [place] (15 min) Moderate 05/20/2018 Patient Education: [...] order this. 05/10/2018 Appointment: [facility] Potter [facility] [phone] [facility] [place] (15 min) Moderate 05/10/2018 Patient Education: Patient Medication Summary Completed 05/10/2018 Visit Plan: Sleep apnea - rx for cp ap - actually autopap was recommended and pt given rx today. HTN - referral to dr. kapoor - pt needs stress testing. 01/15/2018 Appointment: Radha Gonzalez [facility] [phone] [facility] [place] (15 min) Moderate 01/15/2018 Patient Education: Patient Medication Summary Completed 01/15/2018 Care Plan: Referral Order SNOMED-CT : [id number] Pending 01/15/2018 Visit Plan: Well Adult - [...] month. 12/15/2017 Appointment: Radha Gonzalez WPtel: [phone] [facility] New Patient 12/15/2017 Patient Education: Patient Medication Summary Completed 12/15/2017 Care Plan: CHEST X-RAY 2VW FRONTAL&LATL LOINC : 31330-2 Pending 12/15/2017 Appointment: Radha Gonzalez WPtel: [phone] [facility] (15 min) Moderate 12/08/2017 Appointment: (S) [...] Ordering Provider 08/03 Referral info faxed to [place]. Patient informed to be expecting a call from them with appt info Appointment Requested Referral: External, Ordering Provider Referral Appointment Requested Referral: External, Ordering Provider I called today; they will call him to schedule. Completed Referral: Armani Dunaway Referral Appointment Requested Referral: Mayte Kapoor Referral Appointment Requested Referral: April physical therapy WPtel: [phone] [facility] Referral Appointment Requested Referral: External, Ordering Provider [...] symptoms - referral to [facility] - rashes, hypogonadism, optic neuritis - all [...] symptoms - referral to [facility] - appt in September 30, 2018. . [...]
--- OUTSIDE RECORDS SUMMARY | 2020-04-28 00:56 | XMS REPORT | CCD ---
Author Author Nilton Gonzalez Organization Radha Gonzalez MD, [facility] Address [address] [place] [address] Phone Care Team Providers Care Gameplay Engineer Name Role Phone PP Unavailable CCM Unavailable Summary Purpose Interface Exchange Insurance Providers Payer name Policy type / Coverage type Covered democrat ID Effective Begin Date Effective End Date CORESOURCES Commercial Insurance [id number] 2017 Unknown Family history Brother Diagnosis Age At Onset Alcoholism Unknown Father Diagnosis Age At Onset Hypercholesterolemia Unknown Social History Social History Element Codes Description Effective Dates Marital status Unknown S chanda 12/15/2017 Number of children Unknown 1 12/15/2017 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[employer] 12/15/[address]: 919667157 Never smoker 12/15/[address]: 105380 Currently drinks alcohol <1 per week 12/15/2017 [...] Fill Instructions Zorvolex 35 mg capsule RxNorm: 8082977 1 Capsule(s) PO TID as needed for pain 11/15/2018 05/13/2019 Ac tive ketoconazole 2 % top ical cream RxNorm: 093088 APPLY ONE GRAM TOPICA LLY TWICE A DAY 11/15/2018 11/29/2018 Ac tive testosterone cypiona te 200 mg/mL intramuscular oil RxNorm: 5461940 1 Milliliter(s) IM 11/15/2018 11/15/2018 Inactive hydrocodone 5 mg-fanny taminophen 325 mg tablet RxNorm: 105620 1 Tablet(s) PO TID IL N 11/02/2018 No Stop Date Active Singulair 10 mg tablet RxNorm: 595178 1 Tablet(s) PO daily 11/01/2018 07/28/2019 Active testosterone cypiona te 200 mg/mL intramuscular oil RxNorm: 4864319 1 Milliliter(s) IM 2 x month 11/01/2018 02/27/2019 Active Adderall 30 mg tablet RxNorm: 194757 2 Tablet(s) PO daily 10/29/2018 11/27/2018 Active gabapentin 300 mg ca psule RxNorm: 531115 1 Capsule(s) PO BID m ay take TID 10/19/2018 02/15/2019 Ac tive gabapentin 300 mg ca psule RxNorm: 352971 1 Capsule(s) PO BID m ay take TID 10/19/2018 10/18/2018 In active alprazolam 1 mg tablet RxNorm: 869827 1 Tablet(s) PO TID as needed 10/15/2018 12/13/2018 Active testosterone cypiona te 200 mg/mL intramuscular oil RxNorm: 364416 Milliliter(s) IM 09/28/2018 09/28/2018 In active pravastatin 40 mg ta blet RxNorm: 681188 TAKE ONE TABLET BY MO UTH EVERY NIGHT AT BEDTIME 09/27/2018 09/21/2019 Active Tamiflu 75 mg capsule RxNorm: 368607 1 Capsule(s) PO BID 09/24/2018 09/28/2018 Inactive Adderall 30 mg tablet RxNorm: 030722 2 Tablet(s) PO daily 09/20/2018 10/19/2018 Inactive hydrocodone 5 mg-fanny taminophen 325 mg tablet RxNorm: 421865 1 Tablet(s) PO TID IL N 09/20/2018 11/01/2018 In active testosterone cypiona te 200 mg/mL intramuscular oil RxNorm: 850166 Milliliter(s) IM 09/16/2018 09/16/2018 In active testosterone cypiona te 200 mg/mL intramuscular oil RxNorm: 897251 1 Milliliter(s) IM 09/02/2018 09/02/2018 Inactive testosterone cypiona te 200 mg/mL intramuscular oil RxNorm: 223470 Milliliter(s) IM 08/19/2018 08/19/2018 In active tramadol 50 mg tablet RxNorm: 344204 1-2 Tablet(s) PO Q6 as needed 08/18/2018 No Stop Date Active Adderall 30 mg tablet RxNorm: 559046 2 Tablet(s) PO daily 08/18/2018 09/16/2018 Inactive Dexilant 60 mg capsu le, delayed release RxNorm: 219469 1 Capsule(s) PO BID 08/17/2018 08/11/2019 Ac tive atenolol 50 mg tablet RxNorm: 265702 1 Tablet(s) PO BID 08/17/2018 08/11/2019 Active ketoconazole 2 % top ical cream RxNorm: 695341 1 Gram(s) TOP BID 08/17/2018 08/26/2018 Inactive Zorvolex 35 mg capsule RxNorm: 5003894 1 Capsule(s) PO TID as needed for pain 08/17/2018 08/16/2018 In active Zorvolex 35 mg capsule RxNorm: 9441720 1 Capsule(s) PO TID as needed for pain 08/17/2018 11/14/2018 In active ketoconazole 2 % top ical cream RxNorm: 443725 1 Gram(s) TOP BID 08/02/2018 08/11/2018 Inactive hydrocortisone 2.5 % topical cream RxNorm: 425144 1 Application TOP BID 07/21/2018 No Stop Date Active Adderall 30 mg tablet RxNorm: 843757 2 Tablet(s) PO daily 07/20/2018 08/17/2018 Inactive testosterone cypiona te 200 mg/mL intramuscular oil RxNorm: 761732 Milliliter(s) IM 07/15/2018 07/15/2018 In active alprazolam 1 mg tablet RxNorm: 815276 1 Tablet(s) PO TID as needed 07/12/2018 09/07/2018 Inactive hydrocodone 5 mg-fanny taminophen 325 mg tablet RxNorm: 780216 1 Tablet(s) PO TID IL N 06/30/2018 09/19/2018 In active pravastatin 40 mg ta blet RxNorm: 601957 1 Tablet(s) PO QHS 06/18/2018 09/15/2018 Inactive Adderall 30 mg tablet RxNorm: 180249 2 Tablet(s) PO daily 06/18/2018 07/17/2018 Inactive testosterone cypiona te 200 mg/mL intramuscular oil RxNorm: 515382 Milliliter(s) IM 06/17/2018 06/17/2018 In active Voltaren 1 % topical gel RxNorm: 097421 APPLY TOPICALLY TWO T IMES A DAY 06/16/2018 07/21/2018 In active Vitamin D2 50,000 un it capsule RxNorm: 8141462 1 Capsule(s) PO QW 05/21/2018 No Stop Date Active Adderall 30 mg tablet RxNorm: 130297 2 Tablet(s) PO daily 05/21/2018 06/17/2018 Inactive testosterone cypiona te 200 mg/mL intramuscular oil RxNorm: 706475 Milliliter(s) IM 05/21/2018 05/21/2018 In active testosterone cypiona te 200 mg/mL intramuscular oil RxNorm: 3064695 1 Milliliter(s) IM monthly 05/20/2018 09/16/2018 Inactive testosterone cypiona te 200 mg/mL intramuscular oil RxNorm: 141516 1 Milliliter(s) IM monthly 05/20/2018 05/19/2018 Inactive hydrocodone 5 mg-fanny taminophen 325 mg tablet RxNorm: 038141 1 Tablet(s) PO TID IL N 05/20/2018 06/29/2018 In active Vitamin D2 50,000 un it capsule RxNorm: 0633845 1 Capsule(s) PO QW 05/18/2018 05/20/2018 Inactive triamcinolone aceton destin 0.025 % topical cream RxNorm: 3945033 1 Application TOP BI D 05/13/2018 No Stop Date Active Dexilant 60 mg capsu le, delayed release RxNorm: 464209 1 Capsule(s) PO BID 05/13/2018 08/16/2018 In active Zorvolex 35 mg capsule RxNorm: 3933427 1 Capsule(s) PO TID as needed for pain 05/12/2018 08/09/2018 In active Voltaren 1 % topical gel RxNorm: 178561 1 Application TOP BID 05/12/2018 06/15/2018 Inactive acyclovir 400 mg tablet RxNorm: 037756 1 Tablet(s) PO TID as needed take at ons et of symptoms of cold sores x 5 days 05/10/2018 No Stop Date Active paroxetine 20 mg tablet RxNorm: 8997157 2 Tablet(s) PO QHS 05/10/2018 10/31/2019 Active ProAir HFA 90 mcg/ac tuation aerosol inhaler RxNorm: 962892 1 Puff(s) INH QID as needed 05/10/2018 No Stop Date Active trazodone 100 mg tablet RxNorm: 803010 1 Tablet(s) PO QHS 05/10/2018 11/05/2018 Inactive baclofen 20 mg tablet RxNorm: 378125 1 Tablet(s) PO TID as needed muscle spas ms 05/10/2018 06/08/2018 In active Singulair 10 mg tablet RxNorm: 364110 1 Tablet(s) PO daily 05/10/2018 08/07/2018 Inactive atenolol 50 mg tablet RxNorm: 104065 1 Tablet(s) PO BID 05/10/2018 08/07/2018 Inactive triamcinolone aceton destin 0.025 % topical cream RxNorm: 3651584 1 Application TOP BI D 05/10/2018 05/12/2018 In active tramadol 50 mg tablet RxNorm: 461274 1 Tablet(s) PO TID as needed 05/10/2018 05/19/2018 Inactive Dexilant 60 mg capsu le, delayed release RxNorm: 941661 1 Capsule(s) PO daily 05/10/2018 05/12/2018 In active alprazolam 1 mg tablet RxNorm: 074528 1 Tablet(s) PO TID as needed 05/10/2018 08/06/2018 Inactive cyclobenzaprine 10 m g tablet RxNorm: 182346 1 Tablet(s) PO TID as needed muscle spasms 05/07/2018 07/12/2018 Inactive trazodone 100 mg tablet RxNorm: 708138 1 Tablet(s) PO QHS 05/07/2018 05/09/2018 Inactive Adderall 30 mg tablet RxNorm: 227840 2 Tablet(s) PO daily 04/19/2018 05/18/2018 Inactive alprazolam 1 mg tablet RxNorm: 644831 1 Tablet(s) PO BID 04/19/2018 05/09/2018 Inactive Adderall 30 mg tablet RxNorm: 756926 2 Tablet(s) PO daily 03/26/2018 04/18/2018 Inactive paroxetine 20 mg tablet RxNorm: 3478465 2 Tablet(s) PO QHS 03/15/2018 05/09/2018 Inactive Adderall 30 mg tablet RxNorm: 717271 2 Tablet(s) PO daily 02/25/2018 03/25/2018 Inactive cyclobenzaprine 10 m g tablet RxNorm: 725191 1 Tablet(s) PO TID as needed muscle spasms 02/22/2018 05/06/2018 Inactive tramadol 50 mg tablet RxNorm: 882266 1 Tablet(s) PO TID as needed 02/22/2018 03/07/2018 Inactive tramadol 50 mg tablet RxNorm: 687067 1 Tablet(s) PO TID as needed 02/22/2018 02/21/2018 Inactive trazodone 100 mg tablet RxNorm: 291973 1 Tablet(s) PO QHS 02/03/2018 05/03/2018 Inactive trazodone 100 mg tablet RxNorm: 371297 1 Tablet(s) PO QHS 02/03/2018 02/02/2018 Inactive Adderall 30 mg tablet RxNorm: 851254 2 Tablet(s) PO daily 01/27/2018 02/18/2018 Inactive acyclovir 400 mg tablet RxNorm: 956770 1 Tablet(s) PO TID as needed take at ons et of symptoms of cold sores x 5 days 01/15/2018 05/09/2018 Inactive Bactrim DS 800 mg-16 0 mg tablet RxNorm: 820561 1 Tablet(s) PO BID 01/11/2018 01/17/2018 Inactive Bactrim DS 800 mg-16 0 mg tablet RxNorm: 328434 1 Tablet(s) PO BID 01/11/2018 01/10/2018 Inactive Dexilant 60 mg capsu le, delayed release RxNorm: 451789 1 Capsule(s) PO daily 12/23/2017 05/09/2018 In active Dexilant 60 mg capsu le, delayed release RxNorm: 592613 1 Capsule(s) PO daily 12/23/2017 12/22/2017 In active atenolol 50 mg tablet RxNorm: 988248 1 Tablet(s) PO BID 12/15/2017 05/09/2018 Inactive alprazolam 1 mg tablet RxNorm: 029402 1-1.5 Tablet(s) PO daily 12/15/2017 04/18/2018 Inactive ceftriaxone 500 mg s olution for injection RxNorm: 9421620 Inj 08/03/2015 08/03/2015 Inactive paroxetine 20 mg tablet RxNorm: 6208431 2 Tablet(s) PO QHS 08/01/2015 10/29/2015 Inactive pravastatin 40 mg ta blet RxNorm: 649768 1/2 Tablet(s) PO QHS 08/01/2015 12/14/2017 Inactive Trazadone 100mg 100 mg RxNorm: 1 PO daily 08/01/2015 11/27/2015 Inactive Trazadone 100mg 100 mg RxNorm: 1 PO daily 08/01/2015 05/04/2018 Inactive atenolol 50 mg tablet RxNorm: 579357 1 Tablet(s) PO daily 08/01/2015 10/29/2015 Inactive ibuprofen 800 mg tablet RxNorm: 007138 1 Tablet(s) PO BID -TID No Start Date Active Zyrtec 10 mg tablet RxNorm: 0042768 1 Tablet(s) PO daily No Start Date Active pravastatin 40 mg ta blet RxNorm: 504316 1/2 Tablet(s) PO QHS No Start Date 07/31/2015 Inactive Benadryl Allergy 25 mg tablet RxNorm: 5815358 1 Tablet(s) PO daily No Start Date 07/19/2018 Inactive Adderall 30 mg tablet RxNorm: 007909 2 Tablet(s) PO daily No Start Date 01/26/2018 Inactive Aspirin Low Dose 81 mg tablet,delayed release RxNorm: 824435 1 Tablet(s) PO BID No Start Date 07/19/2018 Inactive Singulair 10 mg tablet RxNorm: 095331 1 Tablet(s) PO daily No Start Date 05/09/2018 Inactive cyclobenzaprine 10 m g tablet RxNorm: 397486 1 Tablet(s) PO TID as needed muscle spasms No Start Date 02/21/2018 Inactive Trazadone 100mg 100 mg RxNorm: 1 PO daily No Start Date 07/31/2015 Inactive hydrocortisone 2.5 % topical cream RxNorm: 426363 1 Application TOP BID No Start Date 07/20/2018 Inactive alprazolam 1 mg tablet RxNorm: 543064 2 Tablet(s) PO daily No Start Date 12/14/2017 Inactive tramadol 50 mg tablet RxNorm: 172389 1-2 Tablet(s) PO Q6 as needed No Start Date 08/17/2018 Inactive Vitamin D2 50,000 un it capsule RxNorm: 5572512 1 Capsule(s) PO QW No Start Date 05/17/2018 Inactive pantoprazole 40 mg t ablet,delayed release RxNorm: 149877 1 Tablet(s) PO BID No Start Date 12/22/2017 Inactive atenolol 50 mg tablet RxNorm: 518279 1 Tablet(s) PO daily No Start Date 07/31/2015 Inactive paroxetine 20 mg tablet RxNorm: 527417 2 Tablet(s) PO QHS No Start Date 07/31/2015 Inactive Medication Administered Medication Codes Instruc tions Start Date Status testosterone cypionate 200 mg/mL intramuscular oil RxNorm: 0110697 1Milliliter 11/15/2018 Active testosterone cypionate 200 mg/mL intramuscular oil RxNorm: 435027 Milliliter 09/28/2018 No longer Active testosterone cypionate 200 mg/mL intramuscular oil RxNorm: 520868 Milliliter 09/16/2018 No longer Active testosterone cypionate 200 mg/mL intramuscular oil RxNorm: 328060 1Milliliter 09/02/2018 No longer Active testosterone cypionate 200 mg/mL intramuscular oil RxNorm: 071491 Milliliter 08/19/2018 No longer Active testosterone cypionate 200 mg/mL intramuscular oil RxNorm: 271185 Milliliter 07/15/2018 No longer Active testosterone cypionate 200 mg/mL intramuscular oil RxNorm: 546939 Milliliter 06/17/2018 No longer Active testosterone cypionate 200 mg/mL intramuscular oil RxNorm: 383714 Milliliter 05/21/2018 No longer Active ceftriaxone 500 mg solution for injection RxNorm: 5683554 08/03/2015 No longer A ctive Immunizations Vaccine [...] Item Item Code Result Date Testosterone Serum 272116 TESTOSTERONE 44.1 ng/dL 08/18/2018 Hemoglobin 20020721 WBC 7.62 thou/uL 08/17/2018 Hemoglobin 20020721 RBC 5.23 mil/uL 08/17/2018 Hemoglobin 20020721 HEMOGL OBIN 15.0 g/dL 08/17/2018 Hemoglobin 20020721 HEMATO CRIT 45.0 % 08/17/2018 Hemoglobin 689288 MCV 86.0 fL 08/17/2018 Hemoglobin 336637 MCH 28.7 pg 08/17/2018 Hemoglobin 289185 MCHC 33.3 g/dL 08/17/2018 Hemoglobin 191479 RDW-CV 12.9 % 08/17/2018 Hemoglobin 181473 PLATEL ET COUNT 313 thou/uL 08/17/2018 Hematocrit 455713 WBC 7.62 thou/uL 08/17/2018 Hematocrit 259314 RBC 5.23 mil/uL 08/17/2018 Hematocrit 433412 HEMOGL OBIN 15.0 g/dL 08/17/2018 Hematocrit 422094 HEMATO CRIT 45.0 % 08/17/2018 Hematocrit 645429 MCV 86.0 fL 08/17/2018 Hematocrit 983318 MCH 28.7 pg 08/17/2018 Hematocrit 180118 MCHC 33.3 g/dL 08/17/2018 Hematocrit 165728 RDW-CV 12.9 % 08/17/2018 Hematocrit 166051 PLATEL ET COUNT 313 thou/uL 08/17/2018 Culture Mrsa 979486 MRSA CULTURE SEE NOTES 06/21/2018 Comp. Metabolic Panel (14) 27920 GLUCOSE 101 mg/dL 06/18/2018 Comp. Metabolic Panel (14) 92790 BUN 18 mg/dL 06/18/2018 Comp. Metabolic Panel (14) 61688 CREATININE 0.99 mg/dL 06/18/2018 Comp. Metabolic Panel (14) 70243 SODIUM 141 mmol/L 06/18/2018 Comp. Metabolic Panel (14) 22956 POTASSIUM 4.3 mmol/L 06/18/2018 Comp. Metabolic Panel (14) 07516 CHLORIDE 103 mmol/L 06/18/2018 Comp. Metabolic Panel (14) 02310 CARBON DIOXIDE 23 mmol/L 06/18/2018 Comp. Metabolic Panel (14) 55100 CALCIUM 9.8 mg/dL 06/18/2018 Comp. Metabolic Panel (14) 08491 TOTAL PROTEIN 7.1 g/dL 06/18/2018 Comp. Metabolic Panel (14) 79471 ALBUMIN 5.2 g/dL 06/18/2018 Comp. Metabolic Panel (14) 57342 ALKALINE PHOSPHATASE 65 U/L 06/18/2018 Comp. Metabolic Panel (14) 09976 TOTAL BILIRUBIN 0.6 mg/dL 06/18/2018 Comp. Metabolic Panel (14) 20705 SGOT (AST) 21 U/L 06/18/2018 Comp. Metabolic Panel (14) 09168 SGPT (ALT) 24 U/L 06/18/2018 Comp. Metabolic Panel (14) 20248 eGFR (mL/min/1.73m2) 115 06/18/2018 Comp. Metabolic Panel (14) 55207 INTERPRETATION 06/18/2018 Cbc With Differential/Platelet 39783 WBC 4.55 thou/uL 8 Cbc With Differential/Platelet 98007 RBC 5.13 mil/uL 06/18/2018 Cbc With Differential/Platelet 95235 HEMOGLOBIN 14.4 g/dL 06/18/2018 Cbc With Differential/Platelet 55126 HEMATOCRIT 44.1 % 06/18/2018 Cbc With Differential/Platelet 42805 MCV 85.9 fL 06/18/2018 Cbc With Differential/Platelet 59627 MCH 28.1 pg 06/18/2018 Cbc With Differential/Platelet 72917 MCHC 32.7 g/dL 06/18/2018 Cbc With Differential/Platelet 02662 RDW-CV 13.4 % 06/18/2018 Cbc With Differential/Platelet 93175 PLATELET COUNT 287 thou/uL 06/18/2018 Cbc With Differential/Platelet 07636 NEUTROPHIL % 53.9 % 06/18/2018 Cbc With Differential/Platelet 51210 LYMPHOCYTE % 36.1 % 06/18/2018 Cbc With Differential/Platelet 20188 MONOCYTE % 7.4 % 06/18/2018 Cbc With Differential/Platelet 61316 EOS % 1.9 % 06/18/2018 Cbc With Differential/Platelet 06980 BASO % 0.8 % 06/18/2018 Cbc With Differential/Platelet 23791 NEUTROPHIL ABS # 2.45 thou/uL 06/18/2018 Cbc With Differential/Platelet 43418 LYMPH ABS # 1.64 thou/uL 06/18/2018 Cbc With Differential/Platelet 28476 MONOCYTE ABS # 0.34 thou/uL 06/18/2018 Cbc With Differential/Platelet 09188 EOS ABS # 0.09 thou/uL 8 Cbc With Differential/Platelet 13120 BASO ABS # 0.04 thou/uL 06/18/2018 Review [...] Procedure Codes Date THER/PROPH/DIAG INJ SC/IM CPT-4: 48866 11/15/2018 THER/PROPH/DIAG INJ SC/IM CPT-4: 43556 09/28/2018 THER/PROPH/DIAG INJ SC/IM CPT-4: 08486 09/16/2018 THER/PROPH/DIAG INJ SC/IM CPT-4: 04725 09/02/2018 THER/PROPH/DIAG INJ SC/IM CPT-4: 54705 08/19/2018 IMMUNIZATION ADMIN CPT- 4: 00209 08/02/2018 FLU VAC NO PRSV 4 VA L 3 YRS+ CPT-4: 05564 08/02/2018 THER/PROPH/DIAG INJ SC/IM CPT-4: 08239 07/15/2018 THER/PROPH/DIAG INJ SC/IM CPT-4: 80766 06/17/2018 THER/PROPH/DIAG INJ SC/IM CPT-4: 19657 05/21/2018 THER/PROPH/DIAG INJ SC/IM CPT-4: 48920 08/03/2015 ROCEPHIN, PER 250 MG CPT-4: J0696 08/03/2015 Vital Signs Date Vital 11/01/2018 Blood Pressure 1: 146/82 Code: 8480-6 BMI: 36.0 Code: 99061-4 Heart Rate 1: 87 bpm Height: 5'7" SpO2: 98% Weight: 230 lbs 09/24/2018 Blood Pressure 1: 140/82 Code: 8480-6 BMI: 36.0 Code: 63158-1 Heart Rate 1: 86 bpm Height: 5'7" SpO2: 98% Temperature: 37.1 (C ) / 98.7 (F) Weight: 230 lbs 08/16/2018 Blood Pressure 1: 148/82 Code: 8480-6 Blood Pressure 2: 157/92 Code: 8480-6 BMI: 35.9 Code: 23696-9 Heart Rate 1: 72 bpm Height: 5'7" SpO2: 96% Weight: 229 lbs 08/02/2018 Blood Pressure 1: 142/86 Code: 8480-6 BMI: 35.2 Code: 93133-2 Heart Rate 1: 101 bpm Height: 5'7" SpO2: 97% Weight: 225 lbs 05/31/2018 Blood Pressure 1: 134/82 Code: 8480-6 BMI: 35.4 Code: 99551-9 Heart Rate 1: 91 bpm Height: 5'7" SpO2: 96% Weight: 226 lbs 05/20/2018 Blood Pressure 1: 160/100 Code: 8480-6 BMI: 35.2 Code: 76926-0 Heart Rate 1: 89 bpm Height: 5'7" SpO2: 98% Weight: 225 lbs 05/10/2018 Blood Pressure 1: 124/70 Code: 8480-6 BMI: 35.1 Code: 93483-6 Heart Rate 1: 93 bpm Height: 5'7" SpO2: 99% Weight: 224 lbs 01/15/2018 Blood Pressure 1: 142/92 Code: 8480-6 BMI: 36.3 Code: 23777-7 Heart Rate 1: 77 bpm Height: 5'7" SpO2: 98% Weight: 232 lbs 12/15/2017 Blood Pressure 1: 156/98 Code: 8480-6 BMI: 36.2 Code: 69555-9 Heart Rate 1: 87 bpm Height: 5'7" [...] eye 01/15/2018 None vision change Quality ac [place] 01/15/2018 None vision change Quality lo ss [...] vision 12/15/2017 None vision change Quality ac [place] 12/15/2017 None vision change Onset and Resolution sudden in onset 12/15/2017 None vision change Onset of Symptom 3.5 weeks ago 12/15/2017 None vision change Limitation on Activities severely limits vision 12/15/2017 None vision change Triggers n o known associated factors 12/15/2017 None Advance Directives No Advance Directive data Encounters Encounter Performer Loca tion Codes Date ([id number]) 28375 EST. 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 PATIENT, LEVEL III Diagnosis: Acute upper respiratory infection, unspecified[ICD10: J06.9] Diagnosis: Other allergic rhinitis[ICD10: J30.89] Sonia Gonzalez MD, [facility] CPT-4: 00098 09/24/2018 ([id number]) 11973 EST. 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 P ATIENT, LEVEL IV Diagnosis: Essential (primary) hypertension[ICD10: I10] Diagnosis: Cervicalgia[ICD10: M54.2] Radha Gonzalez MD, [facility] CPT-4: 57708 05/31/2018 ([id number]) 39580 EST. 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..] as needed. 11/01/2018 Appointment: Radha Gonzalez WPtel: [address] [place], [place] [phone] (15 min) Moderate 11/01/2018 Patient Education: Patient [...] spray. 09/24/2018 Appointment: Sonia Potter WPtel: [phone] [facility] (15 min) Moderate 09/24/2018 Patient [...] home. Multiple symptoms - referral to [facility] - appt in September 30, 2018. 08/16/2018 App[facility]ment: [facility] [phone] [facility] (15 min) Moderate 08/16/2018 [...] home. Multiple symptoms - referral to [facility] - rashes, hypogonadism, optic neuritis - all points to possible autoimmune syndrome. Spinal stenosis - of thoracic region - pt to talk to Dr. Dunaway about referral to a different specialist for his mid- back. Hypogonadism - continue with testosterone. Flu shot given today in clinic. 08/02/2018 Appointment: Radha Gonzalez WPtel: [phone] [facility] (15 min) Moderate 08/02/2018 Patient Education: Patient Medication Summary Completed 08/02/2018 Care Plan: Referral Order SNOMED-CT : 335060027 Pending 08/02/2018 Appointment: Injection 07/15/2018 Patient Education: [...] 05/31/2018 Appointment: Radha Gonzalez WPtel: [phone] [facility] (15 min) Moderate 05/31/2018 Patient Education: Patient Medication Summary Completed 05/31/2018 Care Plan: Referral Order SNOMED-CT : 373994562 Pending 05/31/2018 Care Plan: Referral Order SNOMED-CT : 736128197 Pending 05/31/2018 Appointment: Injection 05/21/2018 Patient Education: Patient Medication Summary Completed 05/21/2018 Care Plan: Referral Order SNOMED-CT : 772499174 Pending 05/21/2018 Visit Plan: Cervical and thoracic s tenosis with spinal cord compression -refer for appt with Dr Marr -rx for hydrocodone for pain-start gabapentin at bedtime Soft tissue lesion-left chest-schedule CTfor further evaluation HTN-elevated today-hold adderall-monitor blood pressure 05/20/2018 Appointment: Hannah Simons WPtel: [phone] [phone] [place] (15 min) Moderate 05/20/2018 [...] this. 05/10/2018 Appointment: Sonia Potter WPtel: [phone] [facility] [place] (15 min) Moderate 05/10/2018 Patient Education: Patient Medication Summary Completed 05/10/2018 Visit Plan: Sleep apnea - rx for cp ap - actually autopap was recommended and pt given rx today. HTN - referral to dr. kapoor - pt needs stress testing. 01/15/2018 Appointment: Radha Gonzalez WPtel: [phone] [facility] [place] (15 min) Moderate 01/15/2018 Patient Education: Patient Medication Summary Completed 01/15/2018 Care Plan: Referral Order SNOMED-CT : 659089528 Pending 01/15/2018 Visit Plan: Well Adult - [...] one month. 12/15/2017 Appointment: Radha Gonzalez WPtel: [phone] [facility] New Patient 12/15/2017 Patient Education: Patient Medication Summary Completed 12/15/2017 Care Plan: CHEST X-RAY 2VW FRONTAL&LATL LOINC : 37270-9 Pending 12/15/2017 Appointment: Radha Gonzalez WPtel: [phone] (15 min) Moderate 12/08/2017 Appointment: (S) [...] Ordering Provider 08/03 Referral info faxed to [place]. Patient informed to be expecting a call from them with appt info Appointment Requested Referral: External, Ordering Provider Referral Appointment Requested Referral: External, Ordering Provider I called today; they will call him to schedule. Completed Referral: Armani Dunaway Referral Appointment Requested Referral: Mayte Kapoor Referral Appointment Requested Referral: [facility] physical therapy WPtel: [id number] [facility] Referral Appointment Requested Referral: External, Ordering [...] home. Multiple symptoms - referral to [facility] - rashes, hypogonadism, optic neuritis - all [...] home. Multiple symptoms - referral to [facility] - appt in September 30, 2018. . [...]
[2020-04-28 00:57] LABS: GLUCOSE 101 MG/DL (70-105); TOTAL PROTEIN 9.5 GM/DL (6.4-8.2)
--- OUTSIDE RECORDS SUMMARY | 2020-04-28 00:57 | XMS REPORT | CCD ---
Author Author Nilton Gonzalez Organization Radha Gonzalez MD, [facility] Address [address] [place] [address] Phone Care Team Providers Care Sales Hunter Name Role Phone PP Unavailable CCM Unavailable Summary Purpose Interface Exchange Insurance Providers Payer name Policy type / Coverage type Covered republican ID Effective Begin Date Effective End Date CORESOURCES Commercial Insurance [id number] 2017 Unknown Family history Brother Diagnosis Age At Onset Alcoholism Unknown Father Diagnosis Age At Onset Hypercholesterolemia Unknown Social History Social History Element Codes Description Effective Dates Marital status Unknown S chanda 12/15/2017 Number of children Unknown 1 12/15/2017 Employment Unknown Curre ntly employed [employer] at [employer] 12/15/[address]: 100328191 Never smoker 12/15/[address]: 949224 Currently drinks alcohol <1 per week 12/15/2017 [...] Fill Instructions Zorvolex 35 mg capsule RxNorm: 0259556 1 Capsule(s) PO TID as needed for pain 11/15/2018 05/13/2019 Ac tive hydrocodone 5 mg-fanny taminophen 325 mg tablet RxNorm: 725293 1 Tablet(s) PO TID IA N 11/02/2018 No Stop Date Active Singulair 10 mg tablet RxNorm: 046523 1 Tablet(s) PO daily 11/01/2018 07/28/2019 Active testosterone cypiona te 200 mg/mL intramuscular oil RxNorm: 6660290 1 Milliliter(s) IM 2 x month 11/01/2018 02/28/2019 Active Adderall 30 mg tablet RxNorm: 815773 2 Tablet(s) PO daily 10/29/2018 11/27/2018 Active gabapentin 300 mg ca psule RxNorm: 493187 1 Capsule(s) PO BID m ay take TID 10/19/2018 02/15/2019 Ac tive gabapentin 300 mg ca psule RxNorm: 399703 1 Capsule(s) PO BID m ay take TID 10/19/2018 10/18/2018 In active alprazolam 1 mg tablet RxNorm: 839767 1 Tablet(s) PO TID as needed 10/15/2018 12/13/2018 Active testosterone cypiona te 200 mg/mL intramuscular oil RxNorm: 773293 Milliliter(s) IM 09/28/2018 09/28/2018 In active pravastatin 40 mg ta blet RxNorm: 869785 TAKE ONE TABLET BY [facility] EVERY NIGHT AT BEDTIME 09/27/2018 09/21/2019 Active Tamiflu 75 mg capsule RxNorm: 665824 1 Capsule(s) PO BID 09/24/2018 09/28/2018 Inactive Adderall 30 mg tablet RxNorm: 164611 2 Tablet(s) PO daily 09/20/2018 10/19/2018 Inactive hydrocodone 5 mg-fanny taminophen 325 mg tablet RxNorm: 477127 1 Tablet(s) PO TID IA N 09/20/2018 11/01/2018 In active testosterone cypiona te 200 mg/mL intramuscular oil RxNorm: 007098 Milliliter(s) IM 09/16/2018 09/16/2018 In active testosterone cypiona te 200 mg/mL intramuscular oil RxNorm: 430736 1 Milliliter(s) IM 09/02/2018 09/02/2018 Inactive testosterone cypiona te 200 mg/mL intramuscular oil RxNorm: 668421 Milliliter(s) IM 08/19/2018 08/19/2018 In active tramadol 50 mg tablet RxNorm: 457065 1-2 Tablet(s) PO Q6 as needed 08/18/2018 No Stop Date Active Adderall 30 mg tablet RxNorm: 192948 2 Tablet(s) PO daily 08/18/2018 09/16/2018 Inactive Dexilant 60 mg capsu le, delayed release RxNorm: 502681 1 Capsule(s) PO BID 08/17/2018 08/11/2019 Ac tive atenolol 50 mg tablet RxNorm: 377361 1 Tablet(s) PO BID 08/17/2018 08/11/2019 Active ketoconazole 2 % top ical cream RxNorm: 150803 1 Gram(s) TOP BID 08/17/2018 08/26/2018 Inactive Zorvolex 35 mg capsule RxNorm: 1764015 1 Capsule(s) PO TID as needed for pain 08/17/2018 08/16/2018 In active Zorvolex 35 mg capsule RxNorm: 0944861 1 Capsule(s) PO TID as needed for pain 08/17/2018 11/14/2018 In active ketoconazole 2 % top ical cream RxNorm: 642600 1 Gram(s) TOP BID 08/02/2018 08/11/2018 Inactive hydrocortisone 2.5 % topical cream RxNorm: 740305 1 Application TOP BID 07/21/2018 No Stop Date Active Adderall 30 mg tablet RxNorm: 607356 2 Tablet(s) PO daily 07/20/2018 08/17/2018 Inactive testosterone cypiona te 200 mg/mL intramuscular oil RxNorm: 149034 Milliliter(s) IM 07/15/2018 07/15/2018 In active alprazolam 1 mg tablet RxNorm: 362885 1 Tablet(s) PO TID as needed 07/12/2018 09/07/2018 Inactive hydrocodone 5 mg-fanny taminophen 325 mg tablet RxNorm: 558077 1 Tablet(s) PO TID IA N 06/30/2018 09/19/2018 In active pravastatin 40 mg ta blet RxNorm: 441335 1 Tablet(s) PO QHS 06/18/2018 09/15/2018 Inactive Adderall 30 mg tablet RxNorm: 630798 2 Tablet(s) PO daily 06/18/2018 07/17/2018 Inactive testosterone cypiona te 200 mg/mL intramuscular oil RxNorm: 146171 Milliliter(s) IM 06/17/2018 06/17/2018 In active Voltaren 1 % topical gel RxNorm: 725059 APPLY TOPICALLY TWO T IMES A DAY 06/16/2018 07/21/2018 In active Vitamin D2 50,000 un it capsule RxNorm: 8607562 1 Capsule(s) PO QW 05/21/2018 No Stop Date Active Adderall 30 mg tablet RxNorm: 516817 2 Tablet(s) PO daily 05/21/2018 06/17/2018 Inactive testosterone cypiona te 200 mg/mL intramuscular oil RxNorm: 413387 Milliliter(s) IM 05/21/2018 05/21/2018 In active testosterone cypiona te 200 mg/mL intramuscular oil RxNorm: 4188928 1 Milliliter(s) IM monthly 05/20/2018 09/16/2018 Inactive testosterone cypiona te 200 mg/mL intramuscular oil RxNorm: 458047 1 Milliliter(s) IM monthly 05/20/2018 05/19/2018 Inactive hydrocodone 5 mg-fanny taminophen 325 mg tablet RxNorm: 056916 1 Tablet(s) PO TID IA N 05/20/2018 06/29/2018 In active Vitamin D2 50,000 un it capsule RxNorm: 1447645 1 Capsule(s) PO QW 05/18/2018 05/20/2018 Inactive triamcinolone aceton destin 0.025 % topical cream RxNorm: 0555925 1 Application TOP BI D 05/13/2018 No Stop Date Active Dexilant 60 mg capsu le, delayed release RxNorm: 609019 1 Capsule(s) PO BID 05/13/2018 08/16/2018 In active Zorvolex 35 mg capsule RxNorm: 6805119 1 Capsule(s) PO TID as needed for pain 05/12/2018 08/09/2018 In active Voltaren 1 % topical gel RxNorm: 493614 1 Application TOP BID 05/12/2018 06/15/2018 Inactive acyclovir 400 mg tablet RxNorm: 620698 1 Tablet(s) PO TID as needed take at ons et of symptoms of cold sores x 5 days 05/10/2018 No Stop Date Active paroxetine 20 mg tablet RxNorm: 7007833 2 Tablet(s) PO QHS 05/10/2018 10/31/2019 Active ProAir HFA 90 mcg/ac tuation aerosol inhaler RxNorm: 863799 1 Puff(s) INH QID as needed 05/10/2018 No Stop Date Active trazodone 100 mg tablet RxNorm: 931130 1 Tablet(s) PO QHS 05/10/2018 11/05/2018 Inactive baclofen 20 mg tablet RxNorm: 572600 1 Tablet(s) PO TID as needed muscle spas ms 05/10/2018 06/08/2018 In active Singulair 10 mg tablet RxNorm: 980065 1 Tablet(s) PO daily 05/10/2018 08/07/2018 Inactive atenolol 50 mg tablet RxNorm: 907080 1 Tablet(s) PO BID 05/10/2018 08/07/2018 Inactive triamcinolone aceton destin 0.025 % topical cream RxNorm: 4761982 1 Application TOP BI D 05/10/2018 05/12/2018 In active tramadol 50 mg tablet RxNorm: 068666 1 Tablet(s) PO TID as needed 05/10/2018 05/19/2018 Inactive Dexilant 60 mg capsu le, delayed release RxNorm: 844203 1 Capsule(s) PO daily 05/10/2018 05/12/2018 In active alprazolam 1 mg tablet RxNorm: 892743 1 Tablet(s) PO TID as needed 05/10/2018 08/06/2018 Inactive cyclobenzaprine 10 m g tablet RxNorm: 802969 1 Tablet(s) PO TID as needed muscle spasms 05/07/2018 07/12/2018 Inactive trazodone 100 mg tablet RxNorm: 422238 1 Tablet(s) PO QHS 05/07/2018 05/09/2018 Inactive Adderall 30 mg tablet RxNorm: 715556 2 Tablet(s) PO daily 04/19/2018 05/18/2018 Inactive alprazolam 1 mg tablet RxNorm: 065561 1 Tablet(s) PO BID 04/19/2018 05/09/2018 Inactive Adderall 30 mg tablet RxNorm: 333260 2 Tablet(s) PO daily 03/26/2018 04/18/2018 Inactive paroxetine 20 mg tablet RxNorm: 5440153 2 Tablet(s) PO QHS 03/15/2018 05/09/2018 Inactive Adderall 30 mg tablet RxNorm: 092802 2 Tablet(s) PO daily 02/25/2018 03/25/2018 Inactive cyclobenzaprine 10 m g tablet RxNorm: 877828 1 Tablet(s) PO TID as needed muscle spasms 02/22/2018 05/06/2018 Inactive tramadol 50 mg tablet RxNorm: 572473 1 Tablet(s) PO TID as needed 02/22/2018 03/07/2018 Inactive tramadol 50 mg tablet RxNorm: 102074 1 Tablet(s) PO TID as needed 02/22/2018 02/21/2018 Inactive trazodone 100 mg tablet RxNorm: 037918 1 Tablet(s) PO QHS 02/03/2018 05/03/2018 Inactive trazodone 100 mg tablet RxNorm: 741247 1 Tablet(s) PO QHS 02/03/2018 02/02/2018 Inactive Adderall 30 mg tablet RxNorm: 580171 2 Tablet(s) PO daily 01/27/2018 02/18/2018 Inactive acyclovir 400 mg tablet RxNorm: 562564 1 Tablet(s) PO TID as needed take at ons et of symptoms of cold sores x 5 days 01/15/2018 05/09/2018 Inactive Bactrim DS 800 mg-16 0 mg tablet RxNorm: 042360 1 Tablet(s) PO BID 01/11/2018 01/17/2018 Inactive Bactrim DS 800 mg-16 0 mg tablet RxNorm: 262443 1 Tablet(s) PO BID 01/11/2018 01/10/2018 Inactive Dexilant 60 mg capsu le, delayed release RxNorm: 302946 1 Capsule(s) PO daily 12/23/2017 05/09/2018 In active Dexilant 60 mg capsu le, delayed release RxNorm: 233390 1 Capsule(s) PO daily 12/23/2017 12/22/2017 In active atenolol 50 mg tablet RxNorm: 360703 1 Tablet(s) PO BID 12/15/2017 05/09/2018 Inactive alprazolam 1 mg tablet RxNorm: 570020 1-1.5 Tablet(s) PO daily 12/15/2017 04/18/2018 Inactive ceftriaxone 500 mg s olution for injection RxNorm: 3985417 Inj 08/03/2015 08/03/2015 Inactive paroxetine 20 mg tablet RxNorm: 8086659 2 Tablet(s) PO QHS 08/01/2015 10/29/2015 Inactive pravastatin 40 mg ta blet RxNorm: 612063 1/2 Tablet(s) PO QHS 08/01/2015 12/14/2017 Inactive Trazadone 100mg 100 mg RxNorm: 1 PO daily 08/01/2015 11/27/2015 Inactive Trazadone 100mg 100 mg RxNorm: 1 PO daily 08/01/2015 05/04/2018 Inactive atenolol 50 mg tablet RxNorm: 980322 1 Tablet(s) PO daily 08/01/2015 10/29/2015 Inactive ibuprofen 800 mg tablet RxNorm: 259748 1 Tablet(s) PO BID -TID No Start Date Active Zyrtec 10 mg tablet RxNorm: 4085826 1 Tablet(s) PO daily No Start Date Active pravastatin 40 mg ta blet RxNorm: 660146 1/2 Tablet(s) PO QHS No Start Date 07/31/2015 Inactive Benadryl Allergy 25 mg tablet RxNorm: 5373261 1 Tablet(s) PO daily No Start Date 07/19/2018 Inactive Adderall 30 mg tablet RxNorm: 319603 2 Tablet(s) PO daily No Start Date 01/26/2018 Inactive Aspirin Low Dose 81 mg tablet,delayed release RxNorm: 589551 1 Tablet(s) PO BID No Start Date 07/19/2018 Inactive Singulair 10 mg tablet RxNorm: 063202 1 Tablet(s) PO daily No Start Date 05/09/2018 Inactive cyclobenzaprine 10 m g tablet RxNorm: 029243 1 Tablet(s) PO TID as needed muscle spasms No Start Date 02/21/2018 Inactive Trazadone 100mg 100 mg RxNorm: 1 PO daily No Start Date 07/31/2015 Inactive hydrocortisone 2.5 % topical cream RxNorm: 981239 1 Application TOP BID No Start Date 07/20/2018 Inactive alprazolam 1 mg tablet RxNorm: 163904 2 Tablet(s) PO daily No Start Date 12/14/2017 Inactive tramadol 50 mg tablet RxNorm: 491945 1-2 Tablet(s) PO Q6 as needed No Start Date 08/17/2018 Inactive Vitamin D2 50,000 un it capsule RxNorm: 6305811 1 Capsule(s) PO QW No Start Date 05/17/2018 Inactive pantoprazole 40 mg t ablet,delayed release RxNorm: 916331 1 Tablet(s) PO BID No Start Date 12/22/2017 Inactive atenolol 50 mg tablet RxNorm: 840960 1 Tablet(s) PO daily No Start Date 07/31/2015 Inactive paroxetine 20 mg tablet RxNorm: 537049 2 Tablet(s) PO QHS No Start Date 07/31/2015 Inactive Medication Administered Medication Codes Instruc tions Start Date Status testosterone cypionate 200 mg/mL intramuscular oil RxNorm: 661412 Milliliter 09/28/2018 No longer Active testosterone cypionate 200 mg/mL intramuscular oil RxNorm: 238958 Milliliter 09/16/2018 No longer Active testosterone cypionate 200 mg/mL intramuscular oil RxNorm: 639042 1Milliliter 09/02/2018 No longer Active testosterone cypionate 200 mg/mL intramuscular oil RxNorm: 418698 Milliliter 08/19/2018 No longer Active testosterone cypionate 200 mg/mL intramuscular oil RxNorm: 659123 Milliliter 07/15/2018 No longer Active testosterone cypionate 200 mg/mL intramuscular oil RxNorm: 369212 Milliliter 06/17/2018 No longer Active testosterone cypionate 200 mg/mL intramuscular oil RxNorm: 980107 Milliliter 05/21/2018 No longer Active ceftriaxone 500 mg solution for injection RxNorm: 3597878 08/03/2015 No longer A ctive Immunizations Vaccine [...] Item Item Code Result Date Testosterone Serum 662352 TESTOSTERONE 44.1 ng/dL 08/18/2018 Hemoglobin 527916 WBC 7.62 thou/uL 08/17/2018 Hemoglobin 209827 RBC 5.23 mil/uL 08/17/2018 Hemoglobin 624951 HEMOGL OBIN 15.0 g/dL 08/17/2018 Hemoglobin 079287 HEMATO CRIT 45.0 % 08/17/2018 Hemoglobin 438763 MCV 86.0 fL 08/17/2018 Hemoglobin 538486 MCH 28.7 pg 08/17/2018 Hemoglobin 975933 MCHC 33.3 g/dL 08/17/2018 Hemoglobin 611824 RDW-CV 12.9 % 08/17/2018 Hemoglobin 159430 PLATEL ET COUNT 313 thou/uL 08/17/2018 Hematocrit 184926 WBC 7.62 thou/uL 08/17/2018 Hematocrit 869845 RBC 5.23 mil/uL 08/17/2018 Hematocrit 423400 HEMOGL OBIN 15.0 g/dL 08/17/2018 Hematocrit HEMATO CRIT 45.0 % 08/17/2018 Hematocrit MCV 86.0 fL 08/17/2018 Hematocrit MCH 28.7 pg 08/17/2018 Hematocrit MCHC 33.3 g/dL 08/17/2018 Hematocrit RDW-CV 12.9 % 08/17/2018 Hematocrit PLATEL ET COUNT 313 thou/uL 08/17/2018 Culture Mrsa [id number] MRSA CULTURE SEE NOTES 06/21/2018 Comp. Metabolic Panel (14) 99203 GLUCOSE 101 mg/dL 06/18/2018 Comp. Metabolic Panel (14) 04511 BUN 18 mg/dL 06/18/2018 Comp. Metabolic Panel (14) 43676 CREATININE 0.99 mg/dL 06/18/2018 Comp. Metabolic Panel (14) 72682 SODIUM 141 mmol/L 06/18/2018 Comp. Metabolic Panel (14) 61985 POTASSIUM 4.3 mmol/L 06/18/2018 Comp. Metabolic Panel (14) 23476 CHLORIDE 103 mmol/L 06/18/2018 Comp. Metabolic Panel (14) 74286 CARBON DIOXIDE 23 mmol/L 06/18/2018 Comp. Metabolic Panel (14) 43467 CALCIUM 9.8 mg/dL 06/18/2018 Comp. Metabolic Panel (14) 67846 TOTAL PROTEIN 7.1 g/dL 06/18/2018 Comp. Metabolic Panel (14) 63523 ALBUMIN 5.2 g/dL 06/18/2018 Comp. Metabolic Panel (14) 43767 ALKALINE PHOSPHATASE 65 U/L 06/18/2018 Comp. Metabolic Panel (14) 48221 TOTAL BILIRUBIN 0.6 mg/dL 06/18/2018 Comp. Metabolic Panel (14) 27185 SGOT (AST) 21 U/L 06/18/2018 Comp. Metabolic Panel (14) 37123 SGPT (ALT) 24 U/L 06/18/2018 Comp. Metabolic Panel (14) 11408 eGFR (mL/min/1.73m2) 115 06/18/2018 Comp. Metabolic Panel (14) 00171 INTERPRETATION 06/18/2018 Cbc With Differential/Platelet 31126 WBC 4.55 thou/uL 8 Cbc With Differential/Platelet 82215 RBC 5.13 mil/uL 06/18/2018 Cbc With Differential/Platelet 62692 HEMOGLOBIN 14.4 g/dL 06/18/2018 Cbc With Differential/Platelet 70090 HEMATOCRIT 44.1 % 06/18/2018 Cbc With Differential/Platelet 67512 MCV 85.9 fL 06/18/2018 Cbc With Differential/Platelet 77582 MCH 28.1 pg 06/18/2018 Cbc With Differential/Platelet 71219 MCHC 32.7 g/dL 06/18/2018 Cbc With Differential/Platelet 88024 RDW-CV 13.4 % 06/18/2018 Cbc With Differential/Platelet 45215 PLATELET COUNT 287 thou/uL 06/18/2018 Cbc With Differential/Platelet 53627 NEUTROPHIL % 53.9 % 06/18/2018 Cbc With Differential/Platelet 24269 LYMPHOCYTE % 36.1 % 06/18/2018 Cbc With Differential/Platelet 58008 MONOCYTE % 7.4 % 06/18/2018 Cbc With Differential/Platelet 74001 EOS % 1.9 % 06/18/2018 Cbc With Differential/Platelet 81864 BASO % 0.8 % 06/18/2018 Cbc With Differential/Platelet 56917 NEUTROPHIL ABS # 2.45 thou/uL 06/18/2018 Cbc With Differential/Platelet 55059 LYMPH ABS # 1.64 thou/uL 06/18/2018 Cbc With Differential/Platelet 84387 MONOCYTE ABS # 0.34 thou/uL 06/18/2018 Cbc With Differential/Platelet 66642 EOS ABS # 0.09 thou/uL 8 Cbc With Differential/Platelet 72298 BASO ABS # 0.04 thou/uL 06/18/2018 Review [...] otoscopic exam Left tympanic membrane: air-fluid le rasya 09/24/2018 None Full Exam - ENT Ears/Nose/Throat [...] Procedure Codes Date THER/PROPH/DIAG INJ SC/IM CPT-4: 54338 09/28/2018 THER/PROPH/DIAG INJ SC/IM CPT-4: 73956 09/16/2018 THER/PROPH/DIAG INJ SC/IM CPT-4: 69766 09/02/2018 THER/PROPH/DIAG INJ SC/IM CPT-4: 66305 08/19/2018 IMMUNIZATION ADMIN CPT- 4: 53992 08/02/2018 FLU VAC NO PRSV 4 VA L 3 YRS+ CPT-4: 68268 08/02/2018 THER/PROPH/DIAG INJ SC/IM CPT-4: 51996 07/15/2018 THER/PROPH/DIAG INJ SC/IM CPT-4: 52118 06/17/2018 THER/PROPH/DIAG INJ SC/IM CPT-4: 07634 05/21/2018 THER/PROPH/DIAG INJ SC/IM CPT-4: 93831 08/03/2015 ROCEPHIN, PER 250 MG CPT-4: J0696 08/03/2015 Vital Signs Date Vital 11/01/2018 Blood Pressure 1: 146/82 Code: 8480-6 BMI: 36.0 Code: 75077-9 Heart Rate 1: 87 bpm Height: 5'7" SpO2: 98% Weight: 230 lbs 09/24/2018 Blood Pressure 1: 140/82 Code: 8480-6 BMI: 36.0 Code: 33930-2 Heart Rate 1: 86 bpm Height: 5'7" SpO2: 98% Temperature: 37.1 (C ) / 98.7 (F) Weight: 230 lbs 08/16/2018 Blood Pressure 1: 148/82 Code: 8480-6 Blood Pressure 2: 157/92 Code: 8480-6 BMI: 35.9 Code: 81132-7 Heart Rate 1: 72 bpm Height: 5'7" SpO2: 96% Weight: 229 lbs 08/02/2018 Blood Pressure 1: 142/86 Code: 8480-6 BMI: 35.2 Code: 88410-9 Heart Rate 1: 101 bpm Height: 5'7" SpO2: 97% Weight: 225 lbs 05/31/2018 Blood Pressure 1: 134/82 Code: 8480-6 BMI: 35.4 Code: 33379-1 Heart Rate 1: 91 bpm Height: 5'7" SpO2: 96% Weight: 226 lbs 05/20/2018 Blood Pressure 1: 160/100 Code: 8480-6 BMI: 35.2 Code: 19137-5 Heart Rate 1: 89 bpm Height: 5'7" SpO2: 98% Weight: 225 lbs 05/10/2018 Blood Pressure 1: 124/70 Code: 8480-6 BMI: 35.1 Code: 09395-6 Heart Rate 1: 93 bpm Height: 5'7" SpO2: 99% Weight: 224 lbs 01/15/2018 Blood Pressure 1: 142/92 Code: 8480-6 BMI: 36.3 Code: 85270-0 Heart Rate 1: 77 bpm Height: 5'7" SpO2: 98% Weight: 232 lbs 12/15/2017 Blood Pressure 1: 156/98 Code: 8480-6 BMI: 36.2 Code: 86325-7 Heart Rate 1: 87 bpm Height: 5'7" [...] eye 01/15/2018 None vision change Quality ac [place] 01/15/2018 None vision change Quality lo ss [...] vision 12/15/2017 None vision change Quality ac [place] 12/15/2017 None vision change Onset and Resolution sudden in onset 12/15/2017 None vision change Onset of Symptom 3.5 weeks ago 12/15/2017 None vision change Limitation on Activities severely limits vision 12/15/2017 None vision change Triggers n o known associated factors 12/15/2017 None Advance Directives No Advance Directive data Encounters Encounter Performer Loca tion Codes Date ([id number]) [id number] EST. 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 PATIENT, LEVEL III Diagnosis: Acute upper respiratory infection, unspecified[ICD10: J06.9] Diagnosis: Other allergic rhinitis[ICD10: J30.89] Sonia Gonzalez MD, [facility] CPT-4: 06512 09/24/2018 ([id number]) 55725 EST. 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 P ATIENT, LEVEL IV Diagnosis: Essential (primary) hypertension[ICD10: I10] Diagnosis: Cervicalgia[ICD10: M54.2] Radha Gonzalez MD, [facility] CPT-4: 12693 05/31/2018 ([id number]) 39571 EST. 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 11/01/2018 Appointment: Radha Gonzalez WPtel: [address] [place], [place] [id number] (15 min) Moderate 11/01/2018 Patient Education: Patient [...] [address] [facility] (15 min) Moderate 09/24/2018 Patient Education: Patient [...] at home. Multiple symptoms - referral to [facility] - appt in September 30, 2018. 08/16/2018 Appointment: [facility] [phone] [facility] (15 min) Moderate 08/16/2018 Patient [...] at home. Multiple symptoms - referral to [facility] - rashes, hypogonadism, optic neuritis - all points to possible autoimmune syndrome. Spinal stenosis - of thoracic region - pt to talk to Dr. Dunaway about referral to a different specialist for his mid- back. Hypogonadism - continue with testosterone. Flu shot given today in clinic. 08/02/2018 Appointment: [facility] [phone] [facility] (15 min) Moderate 08/02/2018 Patient Education: Patient Medication Summary Completed 08/02/2018 Care Plan: Referral Order SNOMED-CT : 359706807 Pending 08/02/2018 Appointment: Injection 07/15/2018 Patient Education: [...] Cervical spine stenosis - referral to [facility]. I have also recommended a Referral to Dr. Dunaway. I have called and talked to Dr. Dunaway - he looked at the pt's imaging and agrees that getting the pt in to be seen soon would be a preferred option. 05/31/2018 Appointment: [facility] Gonzalez [facility]el[facility] [phone] [facility] [place] (15 min) Moderate 05/31/2018 Patient Education: Patient Medication Summary Completed 05/31/2018 Care Plan: Referral Order SNOMED-CT : 299642044 Pending 05/31/2018 Care Plan: Referral Order SNOMED-CT : 678263852 Pending 05/31/2018 Appointment: Injection 05/21/2018 Patient Education: Patient Medication Summary Completed 05/21/2018 Care Plan: Referral Order SNOMED-CT : 375388163 Pending 05/21/2018 Visit Plan: Cervical and thoracic s tenosis with spinal cord compression -refer for appt with Dr Marr -rx for hydrocodone for pain-start gabapentin at bedtime Soft tissue lesion-left chest-schedule CTfor further evaluation HTN-elevated today-hold adderall-monitor blood pressure 05/20/2018 Appointment: Hannah Simons WPtel: [phone] [phone] [place] (15 min) Moderate 05/20/2018 Patient Education: [...] this. 05/10/2018 Appointment: Sonia Potter WPtel: [phone] [facility] [place] (15 min) Moderate 05/10/2018 Patient Education: Patient Medication Summary Completed 05/10/2018 Visit Plan: Sleep apnea - rx for cp ap - actually autopap was recommended and pt given rx today. HTN - referral to dr. kapoor - pt needs stress testing. 01/15/2018 Appointment: Radha Gonzalez WPtel: [phone] [facility] [place] (15 min) Moderate 01/15/2018 Patient Education: Patient Medication Summary Completed 01/15/2018 Care Plan: Referral Order SNOMED-CT : 740121535 Pending 01/15/2018 Visit Plan: Well Adult - [...] month. 12/15/2017 Appointment: Radha Gonzalez WPtel: [phone] [facility] New Patient 12/15/2017 Patient Education: Patient Medication Summary Completed 12/15/2017 Care Plan: CHEST X-RAY 2VW FRONTAL&LATL LOINC : 48769-6 Pending 12/15/2017 Appointment: Radha Gonzalez WPtel: [phone] [facility] (15 min) Moderate 12/08/2017 Appointment: [...] Ordering Provider 08/03 Referral info faxed to [facility]. Patient informed to be expecting a call from them with appt info Appointment Requested Referral: External, Ordering Provider Referral Appointment Requested Referral: External, Ordering Provider I called today; they will call him to schedule. Completed Referral: Armani Dunaway Referral Appointment Requested Referral: Mayte Kapoor Referral Appointment Requested Referral: [facility] WPtel: [id number] [facility] Referral Appointment Requested Referral: External, [...] at home. Multiple symptoms - referral to [facility] - rashes, hypogonadism, optic neuritis - all [...] at home. Multiple symptoms - referral to [facility] - appt in September 30, 2018. . [...] home. Cervical spine stenosis - [facility]. I have also recommended a Referral to Dr. Dunaway. I have called and talked to Dr. Dunaway - he looked at the pt's imaging and agrees that getting the pt in to be seen soon would be a preferred option.
[2020-04-28 00:58] LABS: CARBON DIOXIDE 21 MMOL/L (21-32)
--- OUTSIDE RECORDS SUMMARY | 2020-04-28 00:58 | XMS REPORT | CCD ---
Author Author Nilton Gonzalez Organization Radha Gonzalez MD, [facility] Address [address] [place] [address] Phone Care Team Providers Care Awning Installer Name Role Phone PP Unavailable CCM Unavailable Summary Purpose Interface Exchange Insurance Providers Payer name Policy type / Coverage type Covered green party ID Effective Begin Date Effective End Date CORESOURCES Commercial Insurance [id number] 2017 Unknown Family history Brother Diagnosis Age At Onset Alcoholism Unknown Father Diagnosis Age At Onset Hypercholesterolemia Unknown Social History Social History Element Codes Description Effective Dates Marital status Unknown S chanda 12/15/2017 Number of children Unknown 1 12/15/2017 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[employer] 12/15/[address]: 341899695 Never smoker 12/15/[address]: 690388 Currently drinks alcohol <1 per week 12/15/2017 [...] 5 mg-fanny taminophen 325 mg tablet RxNorm: 451429 1 Tablet(s) PO TID [facility] N 11/02/2018 No Stop Date Active Singulair 10 mg tablet RxNorm: 792832 1 Tablet(s) PO daily 11/01/2018 07/28/2019 Active testosterone cypiona te 200 mg/mL intramuscular oil RxNorm: 3737733 1 Milliliter(s) IM 2 x month 11/01/2018 02/28/2019 Active Adderall 30 mg tablet RxNorm: 340499 2 Tablet(s) PO daily 10/29/2018 11/27/2018 Active gabapentin 300 mg ca psule RxNorm: 167404 1 Capsule(s) PO BID m ay take TID 10/19/2018 02/15/2019 Ac tive gabapentin 300 mg ca psule RxNorm: 111286 1 Capsule(s) PO BID m ay take TID 10/19/2018 10/18/2018 In active alprazolam 1 mg tablet RxNorm: 657725 1 Tablet(s) PO TID as needed 10/15/2018 12/13/2018 Active testosterone cypiona te 200 mg/mL intramuscular oil RxNorm: 741625 Milliliter(s) IM 09/28/2018 09/28/2018 In active pravastatin 40 mg ta blet RxNorm: 118034 TAKE ONE TABLET BY [facility] EVERY NIGHT AT BEDTIME 09/27/2018 09/21/2019 Active Tamiflu 75 mg capsule RxNorm: 383321 1 Capsule(s) PO BID 09/24/2018 09/28/2018 Inactive Adderall 30 mg tablet RxNorm: 397662 2 Tablet(s) PO daily 09/20/2018 10/19/2018 Inactive hydrocodone 5 mg-fanny taminophen 325 mg tablet RxNorm: 092826 1 Tablet(s) PO TID VA N 09/20/2018 11/01/2018 In active testosterone cypiona te 200 mg/mL intramuscular oil RxNorm: 825082 Milliliter(s) IM 09/16/2018 09/16/2018 In active testosterone cypiona te 200 mg/mL intramuscular oil RxNorm: 295558 1 Milliliter(s) IM 09/02/2018 09/02/2018 Inactive testosterone cypiona te 200 mg/mL intramuscular oil RxNorm: 686794 Milliliter(s) IM 08/19/2018 08/19/2018 In active tramadol 50 mg tablet RxNorm: 383994 1-2 Tablet(s) PO Q6 as needed 08/18/2018 No Stop Date Active Adderall 30 mg tablet RxNorm: 580076 2 Tablet(s) PO daily 08/18/2018 09/16/2018 Inactive Dexilant 60 mg capsu le, delayed release RxNorm: 989775 1 Capsule(s) PO BID 08/17/2018 08/11/2019 Ac tive atenolol 50 mg tablet RxNorm: 058876 1 Tablet(s) PO BID 08/17/2018 08/11/2019 Active Zorvolex 35 mg capsule RxNorm: 7730992 1 Capsule(s) PO TID as needed for pain 08/17/2018 02/12/2019 Ac tive ketoconazole 2 % top ical cream RxNorm: 137929 1 Gram(s) TOP BID 08/17/2018 08/26/2018 Inactive Zorvolex 35 mg capsule RxNorm: 7804971 1 Capsule(s) PO TID as needed for pain 08/17/2018 08/16/2018 In active ketoconazole 2 % top ical cream RxNorm: 002615 1 Gram(s) TOP BID 08/02/2018 08/11/2018 Inactive hydrocortisone 2.5 % topical cream RxNorm: 912391 1 Application TOP BID 07/21/2018 No Stop Date Active Adderall 30 mg tablet RxNorm: 124416 2 Tablet(s) PO daily 07/20/2018 08/17/2018 Inactive testosterone cypiona te 200 mg/mL intramuscular oil RxNorm: 799046 Milliliter(s) IM 07/15/2018 07/15/2018 In active alprazolam 1 mg tablet RxNorm: 025972 1 Tablet(s) PO TID as needed 07/12/2018 09/07/2018 Inactive hydrocodone 5 mg-fanny taminophen 325 mg tablet RxNorm: 157174 1 Tablet(s) PO TID VA N 06/30/2018 09/19/2018 In active pravastatin 40 mg ta blet RxNorm: 817160 1 Tablet(s) PO QHS 06/18/2018 09/15/2018 Inactive Adderall 30 mg tablet RxNorm: 157733 2 Tablet(s) PO daily 06/18/2018 07/17/2018 Inactive testosterone cypiona te 200 mg/mL intramuscular oil RxNorm: 775104 Milliliter(s) IM 06/17/2018 06/17/2018 In active Voltaren 1 % topical gel RxNorm: 117342 APPLY TOPICALLY TWO T IMES A DAY 06/16/2018 07/21/2018 In active Vitamin D2 50,000 un it capsule RxNorm: 5566781 1 Capsule(s) PO QW 05/21/2018 No Stop Date Active Adderall 30 mg tablet RxNorm: 530607 2 Tablet(s) PO daily 05/21/2018 06/17/2018 Inactive testosterone cypiona te 200 mg/mL intramuscular oil RxNorm: 740096 Milliliter(s) IM 05/21/2018 05/21/2018 In active testosterone cypiona te 200 mg/mL intramuscular oil RxNorm: 8479865 1 Milliliter(s) IM monthly 05/20/2018 09/16/2018 Inactive testosterone cypiona te 200 mg/mL intramuscular oil RxNorm: 670050 1 Milliliter(s) IM monthly 05/20/2018 05/19/2018 Inactive hydrocodone 5 mg-fanny taminophen 325 mg tablet RxNorm: 969063 1 Tablet(s) PO TID VA N 05/20/2018 06/29/2018 In active Vitamin D2 50,000 un it capsule RxNorm: 4066299 1 Capsule(s) PO QW 05/18/2018 05/20/2018 Inactive triamcinolone aceton destin 0.025 % topical cream RxNorm: 0876916 1 Application TOP BI D 05/13/2018 No Stop Date Active Dexilant 60 mg capsu le, delayed release RxNorm: 778521 1 Capsule(s) PO BID 05/13/2018 08/16/2018 In active Zorvolex 35 mg capsule RxNorm: 7725538 1 Capsule(s) PO TID as needed for pain 05/12/2018 08/09/2018 In active Voltaren 1 % topical gel RxNorm: 506465 1 Application TOP BID 05/12/2018 06/15/2018 Inactive acyclovir 400 mg tablet RxNorm: 771518 1 Tablet(s) PO TID as needed take at ons et of symptoms of cold sores x 5 days 05/10/2018 No Stop Date Active paroxetine 20 mg tablet RxNorm: 4747067 2 Tablet(s) PO QHS 05/10/2018 10/31/2019 Active ProAir HFA 90 mcg/ac tuation aerosol inhaler RxNorm: 217217 1 Puff(s) INH QID as needed 05/10/2018 No Stop Date Active trazodone 100 mg tablet RxNorm: 154024 1 Tablet(s) PO QHS 05/10/2018 11/05/2018 Active baclofen 20 mg tablet RxNorm: 988990 1 Tablet(s) PO TID as needed muscle spas ms 05/10/2018 06/08/2018 In active Singulair 10 mg tablet RxNorm: 133559 1 Tablet(s) PO daily 05/10/2018 08/07/2018 Inactive atenolol 50 mg tablet RxNorm: 371168 1 Tablet(s) PO BID 05/10/2018 08/07/2018 Inactive triamcinolone aceton destin 0.025 % topical cream RxNorm: 7690545 1 Application TOP BI D 05/10/2018 05/12/2018 In active tramadol 50 mg tablet RxNorm: 292485 1 Tablet(s) PO TID as needed 05/10/2018 05/19/2018 Inactive Dexilant 60 mg capsu le, delayed release RxNorm: 622750 1 Capsule(s) PO daily 05/10/2018 05/12/2018 In active alprazolam 1 mg tablet RxNorm: 215433 1 Tablet(s) PO TID as needed 05/10/2018 08/06/2018 Inactive cyclobenzaprine 10 m g tablet RxNorm: 766359 1 Tablet(s) PO TID as needed muscle spasms 05/07/2018 07/12/2018 Inactive trazodone 100 mg tablet RxNorm: 537387 1 Tablet(s) PO QHS 05/07/2018 05/09/2018 Inactive Adderall 30 mg tablet RxNorm: 019384 2 Tablet(s) PO daily 04/19/2018 05/18/2018 Inactive alprazolam 1 mg tablet RxNorm: 766076 1 Tablet(s) PO BID 04/19/2018 05/09/2018 Inactive Adderall 30 mg tablet RxNorm: 487046 2 Tablet(s) PO daily 03/26/2018 04/18/2018 Inactive paroxetine 20 mg tablet RxNorm: 2212788 2 Tablet(s) PO QHS 03/15/2018 05/09/2018 Inactive Adderall 30 mg tablet RxNorm: 471550 2 Tablet(s) PO daily 02/25/2018 03/25/2018 Inactive cyclobenzaprine 10 m g tablet RxNorm: 046766 1 Tablet(s) PO TID as needed muscle spasms 02/22/2018 05/06/2018 Inactive tramadol 50 mg tablet RxNorm: 984100 1 Tablet(s) PO TID as needed 02/22/2018 03/07/2018 Inactive tramadol 50 mg tablet RxNorm: 154250 1 Tablet(s) PO TID as needed 02/22/2018 02/21/2018 Inactive trazodone 100 mg tablet RxNorm: 077665 1 Tablet(s) PO QHS 02/03/2018 05/03/2018 Inactive trazodone 100 mg tablet RxNorm: 567271 1 Tablet(s) PO QHS 02/03/2018 02/02/2018 Inactive Adderall 30 mg tablet RxNorm: 137766 2 Tablet(s) PO daily 01/27/2018 02/18/2018 Inactive acyclovir 400 mg tablet RxNorm: 098983 1 Tablet(s) PO TID as needed take at ons et of symptoms of cold sores x 5 days 01/15/2018 05/09/2018 Inactive Bactrim DS 800 mg-16 0 mg tablet RxNorm: 903483 1 Tablet(s) PO BID 01/11/2018 01/17/2018 Inactive Bactrim DS 800 mg-16 0 mg tablet RxNorm: 493052 1 Tablet(s) PO BID 01/11/2018 01/10/2018 Inactive Dexilant 60 mg capsu le, delayed release RxNorm: 983944 1 Capsule(s) PO daily 12/23/2017 05/09/2018 In active Dexilant 60 mg capsu le, delayed release RxNorm: 910642 1 Capsule(s) PO daily 12/23/2017 12/22/2017 In active atenolol 50 mg tablet RxNorm: 168655 1 Tablet(s) PO BID 12/15/2017 05/09/2018 Inactive alprazolam 1 mg tablet RxNorm: 229019 1-1.5 Tablet(s) PO daily 12/15/2017 04/18/2018 Inactive ceftriaxone 500 mg s olution for injection RxNorm: 4418324 Inj 08/03/2015 08/03/2015 Inactive paroxetine 20 mg tablet RxNorm: 5335362 2 Tablet(s) PO QHS 08/01/2015 10/29/2015 Inactive pravastatin 40 mg ta blet RxNorm: 787737 1/2 Tablet(s) PO QHS 08/01/2015 12/14/2017 Inactive Trazadone 100mg 100 mg RxNorm: 1 PO daily 08/01/2015 11/27/2015 Inactive Trazadone 100mg 100 mg RxNorm: 1 PO daily 08/01/2015 05/04/2018 Inactive atenolol 50 mg tablet RxNorm: 844920 1 Tablet(s) PO daily 08/01/2015 10/29/2015 Inactive ibuprofen 800 mg tablet RxNorm: 618109 1 Tablet(s) PO BID -TID No Start Date Active Zyrtec 10 mg tablet RxNorm: 3700359 1 Tablet(s) PO daily No Start Date Active pravastatin 40 mg ta blet RxNorm: 178889 1/2 Tablet(s) PO QHS No Start Date 07/31/2015 Inactive Benadryl Allergy 25 mg tablet RxNorm: 9413644 1 Tablet(s) PO daily No Start Date 07/19/2018 Inactive Adderall 30 mg tablet RxNorm: 930797 2 Tablet(s) PO daily No Start Date 01/26/2018 Inactive Aspirin Low Dose 81 mg tablet,delayed release RxNorm: 009044 1 Tablet(s) PO BID No Start Date 07/19/2018 Inactive Singulair 10 mg tablet RxNorm: 927400 1 Tablet(s) PO daily No Start Date 05/09/2018 Inactive cyclobenzaprine 10 m g tablet RxNorm: 737011 1 Tablet(s) PO TID as needed muscle spasms No Start Date 02/21/2018 Inactive Trazadone 100mg 100 mg RxNorm: 1 PO daily No Start Date 07/31/2015 Inactive hydrocortisone 2.5 % topical cream RxNorm: 018418 1 Application TOP BID No Start Date 07/20/2018 Inactive alprazolam 1 mg tablet RxNorm: 729873 2 Tablet(s) PO daily No Start Date 12/14/2017 Inactive tramadol 50 mg tablet RxNorm: 433330 1-2 Tablet(s) PO Q6 as needed No Start Date 08/17/2018 Inactive Vitamin D2 50,000 un it capsule RxNorm: 0007146 1 Capsule(s) PO QW No Start Date 05/17/2018 Inactive pantoprazole 40 mg t ablet,delayed release RxNorm: 620124 1 Tablet(s) PO BID No Start Date 12/22/2017 Inactive atenolol 50 mg tablet RxNorm: 685411 1 Tablet(s) PO daily No Start Date 07/31/2015 Inactive paroxetine 20 mg tablet RxNorm: 219078 2 Tablet(s) PO QHS No Start Date 07/31/2015 Inactive Medication Administered Medication Codes Instruc tions Start Date Status testosterone cypionate 200 mg/mL intramuscular oil RxNorm: 708250 Milliliter 09/28/2018 No longer Active testosterone cypionate 200 mg/mL intramuscular oil RxNorm: 390068 Milliliter 09/16/2018 No longer Active testosterone cypionate 200 mg/mL intramuscular oil RxNorm: 448982 1Milliliter 09/02/2018 No longer Active testosterone cypionate 200 mg/mL intramuscular oil RxNorm: 996614 Milliliter 08/19/2018 No longer Active testosterone cypionate 200 mg/mL intramuscular oil RxNorm: 055018 Milliliter 07/15/2018 No longer Active testosterone cypionate 200 mg/mL intramuscular oil RxNorm: 251890 Milliliter 06/17/2018 No longer Active testosterone cypionate 200 mg/mL intramuscular oil RxNorm: 856023 Milliliter 05/21/2018 No longer Active ceftriaxone 500 mg solution for injection RxNorm: 5046593 08/03/2015 No longer A ctive Immunizations Vaccine [...] Item Item Code Result Date Testosterone Serum 738463 TESTOSTERONE 44.1 ng/dL 08/18/2018 Hemoglobin 474330 WBC 7.62 thou/uL 08/17/2018 Hemoglobin 733684 RBC 5.23 mil/uL 08/17/2018 Hemoglobin 378584 HEMOGL OBIN 15.0 g/dL 08/17/2018 Hemoglobin 344954 HEMATO CRIT 45.0 % 08/17/2018 Hemoglobin 335571 MCV 86.0 fL 08/17/2018 Hemoglobin 128884 MCH 28.7 pg 08/17/2018 Hemoglobin 426921 MCHC 33.3 g/dL 08/17/2018 Hemoglobin 807615 RDW-CV 12.9 % 08/17/2018 Hemoglobin 514677 PLATEL ET COUNT 313 thou/uL 08/17/2018 Hematocrit 412814 WBC 7.62 thou/uL 08/17/2018 Hematocrit 346438 RBC 5.23 mil/uL 08/17/2018 Hematocrit 450929 HEMOGL OBIN 15.0 g/dL 08/17/2018 Hematocrit 476842 HEMATO CRIT 45.0 % 08/17/2018 Hematocrit 519749 MCV 86.0 fL 08/17/2018 Hematocrit MCH 28.7 pg 08/17/2018 Hematocrit MCHC 33.3 g/dL 08/17/2018 Hematocrit RDW-CV 12.9 % 08/17/2018 Hematocrit PLATEL ET COUNT 313 thou/uL 08/17/2018 Culture Mrsa 311038 MRSA CULTURE SEE NOTES 06/21/2018 Comp. Metabolic Panel (14) 69467 GLUCOSE 101 mg/dL 06/18/2018 Comp. Metabolic Panel (14) 63138 BUN 18 mg/dL 06/18/2018 Comp. Metabolic Panel (14) 91173 CREATININE 0.99 mg/dL 06/18/2018 Comp. Metabolic Panel (14) 61474 SODIUM 141 mmol/L 06/18/2018 Comp. Metabolic Panel (14) 51512 POTASSIUM 4.3 mmol/L 06/18/2018 Comp. Metabolic Panel (14) 26527 CHLORIDE 103 mmol/L 06/18/2018 Comp. Metabolic Panel (14) 70998 CARBON DIOXIDE 23 mmol/L 06/18/2018 Comp. Metabolic Panel (14) 21261 CALCIUM 9.8 mg/dL 06/18/2018 Comp. Metabolic Panel (14) 94308 TOTAL PROTEIN 7.1 g/dL 06/18/2018 Comp. Metabolic Panel (14) 64183 ALBUMIN 5.2 g/dL 06/18/2018 Comp. Metabolic Panel (14) 78685 ALKALINE PHOSPHATASE 65 U/L 06/18/2018 Comp. Metabolic Panel (14) 10012 TOTAL BILIRUBIN 0.6 mg/dL 06/18/2018 Comp. Metabolic Panel (14) 16984 SGOT (AST) 21 U/L 06/18/2018 Comp. Metabolic Panel (14) 47713 SGPT (ALT) 24 U/L 06/18/2018 Comp. Metabolic Panel (14) 01752 eGFR (mL/min/1.73m2) 115 06/18/2018 Comp. Metabolic Panel (14) 04044 INTERPRETATION 06/18/2018 Cbc With Differential/Platelet 55420 WBC 4.55 thou/uL 8 Cbc With Differential/Platelet 19981 RBC 5.13 mil/uL 06/18/2018 Cbc With Differential/Platelet 98868 HEMOGLOBIN 14.4 g/dL 06/18/2018 Cbc With Differential/Platelet 47379 HEMATOCRIT 44.1 % 06/18/2018 Cbc With Differential/Platelet 09788 MCV 85.9 fL 06/18/2018 Cbc With Differential/Platelet 19668 MCH 28.1 pg 06/18/2018 Cbc With Differential/Platelet 59372 MCHC 32.7 g/dL 06/18/2018 Cbc With Differential/Platelet 97672 RDW-CV 13.4 % 06/18/2018 Cbc With Differential/Platelet 54315 PLATELET COUNT 287 thou/uL 06/18/2018 Cbc With Differential/Platelet 43928 NEUTROPHIL % 53.9 % 06/18/2018 Cbc With Differential/Platelet 68509 LYMPHOCYTE % 36.1 % 06/18/2018 Cbc With Differential/Platelet 24832 MONOCYTE % 7.4 % 06/18/2018 Cbc With Differential/Platelet 51317 EOS % 1.9 % 06/18/2018 Cbc With Differential/Platelet 21635 BASO % 0.8 % 06/18/2018 Cbc With Differential/Platelet 48204 NEUTROPHIL ABS # 2.45 thou/uL 06/18/2018 Cbc With Differential/Platelet 13411 LYMPH ABS # 1.64 thou/uL 06/18/2018 Cbc With Differential/Platelet 27397 MONOCYTE ABS # 0.34 thou/uL 06/18/2018 Cbc With Differential/Platelet 56970 EOS ABS # 0.09 thou/uL 8 Cbc With Differential/Platelet 89506 BASO ABS # 0.04 thou/uL 06/18/2018 Review [...] time 09/24/2018 None Full Exam - General 1995 Constitutional general appearance Overall: well developed 08/16/2018 [...] Procedure Codes Date THER/PROPH/DIAG INJ SC/IM CPT-4: 22962 09/28/2018 THER/PROPH/DIAG INJ SC/IM CPT-4: 77809 09/16/2018 THER/PROPH/DIAG INJ SC/IM CPT-4: 71277 09/02/2018 THER/PROPH/DIAG INJ SC/IM CPT-4: 75398 08/19/2018 IMMUNIZATION ADMIN CPT- 4: 61178 08/02/2018 FLU VAC NO PRSV 4 VA L 3 YRS+ CPT-4: 94384 08/02/2018 THER/PROPH/DIAG INJ SC/IM CPT-4: 26722 07/15/2018 THER/PROPH/DIAG INJ SC/IM CPT-4: 66179 06/17/2018 THER/PROPH/DIAG INJ SC/IM CPT-4: 03717 05/21/2018 THER/PROPH/DIAG INJ SC/IM CPT-4: 40934 08/03/2015 ROCEPHIN, PER 250 MG CPT-4: J0696 08/03/2015 Vital Signs Date Vital 11/01/2018 Blood Pressure 1: 146/82 Code: 8480-6 BMI: 36.0 Code: 39409-4 Heart Rate 1: 87 bpm Height: 5'7" SpO2: 98% Weight: 230 lbs 09/24/2018 Blood Pressure 1: 140/82 Code: 8480-6 BMI: 36.0 Code: 79299-0 Heart Rate 1: 86 bpm Height: 5'7" SpO2: 98% Temperature: 37.1 (C ) / 98.7 (F) Weight: 230 lbs 08/16/2018 Blood Pressure 1: 148/82 Code: 8480-6 Blood Pressure 2: 157/92 Code: 8480-6 BMI: 35.9 Code: 53056-2 Heart Rate 1: 72 bpm Height: 5'7" SpO2: 96% Weight: 229 lbs 08/02/2018 Blood Pressure 1: 142/86 Code: 8480-6 BMI: 35.2 Code: 15222-9 Heart Rate 1: 101 bpm Height: 5'7" SpO2: 97% Weight: 225 lbs 05/31/2018 Blood Pressure 1: 134/82 Code: 8480-6 BMI: 35.4 Code: 49008-5 Heart Rate 1: 91 bpm Height: 5'7" SpO2: 96% Weight: 226 lbs 05/20/2018 Blood Pressure 1: 160/100 Code: 8480-6 BMI: 35.2 Code: 70800-5 Heart Rate 1: 89 bpm Height: 5'7" SpO2: 98% Weight: 225 lbs 05/10/2018 Blood Pressure 1: 124/70 Code: 8480-6 BMI: 35.1 Code: 21075-7 Heart Rate 1: 93 bpm Height: 5'7" SpO2: 99% Weight: 224 lbs 01/15/2018 Blood Pressure 1: 142/92 Code: 8480-6 BMI: 36.3 Code: 09792-1 Heart Rate 1: 77 bpm Height: 5'7" SpO2: 98% Weight: 232 lbs 12/15/2017 Blood Pressure 1: 156/98 Code: 8480-6 BMI: 36.2 Code: 37116-9 Heart Rate 1: 87 bpm Height: 5'7" [...] eye 01/15/2018 None vision change Quality ac iroquois 01/15/2018 None vision change Quality lo ss [...] vision 12/15/2017 None vision change Quality ac iroquois 12/15/2017 None vision change Onset and Resolution sudden in onset 12/15/2017 None vision change Onset of Symptom 3.5 weeks ago 12/15/2017 None vision change Limitation on Activities severely limits vision 12/15/2017 None vision change Triggers n o known associated factors 12/15/2017 None Advance Directives No Advance Directive data Encounters Encounter Performer Loca tion Codes Date ([id number]) [id number] EST. 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 PATIENT, LEVEL III Diagnosis: Acute upper respiratory infection, unspecified[ICD10: J06.9] Diagnosis: Other allergic rhinitis[ICD10: J30.89] [facility] CPT-4: 44444 09/24/2018 [id number]) 91519 EST. 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 CPT-4: 24994 08/16/2018 ([id number]) 92371 EST. 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 CPT-4: 44595 08/02/2018 ([id number]) 07489 EST. P ATIENT, LEVEL IV Diagnosis: Essential (primary) hypertension[ICD10: I10] Diagnosis: Cervicalgia[ICD10: M54.2] Radha Gonzalez MD, [facility] CPT-4: 40511 05/31/2018 ([id number]) 10611 EST. 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 CPT-4: 72564 05/20/2018 29520 EST. 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 CPT- 4: 13846 05/10/2018 ([id number]) 94234 EST. 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 CPT-4: 21818 08/03/2015 Plan of Care Planned Activity Notes [...] as needed. 11/01/2018 Appointment: Radha Gonzalez WPtel: [facility] (15 min) Moderate 11/01/2018 Patient Education: [...] allergy spray. 09/24/2018 Appointment: Sonia Potter WPtel: [facility] [place] (15 min) Moderate 09/24/2018 Patient Education: [...] 2018. 08/16/2018 [phone] (15 min) Moderate 08/16/2018 Patient Education: [...] clinic. 08/02/2018 App[facility]ment: [phone] [place] (15 min) Moderate 08/02/2018 Patient Education: Patient Medication Summary Completed 08/02/2018 Care Plan: Referral Order SNOMED-CT : 723335163 Pending 08/02/2018 Appointment: Injection 07/15/2018 Patient Education: [...] home. Cervical spine stenosis - referral to [facility] physical therapy. I have also recommended a Referral to Dr. Dunaway. I have called and talked to Dr. Dunaway - he looked at the pt's imaging and agrees that getting the pt in to be seen soon would be a preferred option. 05/31/2018 Appointment: Radha Gonzalez WPtel: [facility] (15 min) Moderate 05/31/2018 Patient Education: Patient Medication Summary Completed 05/31/2018 Care Plan: Referral Order SNOMED-CT : 359247515 Pending 05/31/2018 Care Plan: Referral Order SNOMED-CT : 834059595 Pending 05/31/2018 Appointment: Injection 05/21/2018 Patient Education: Patient Medication Summary Completed 05/21/2018 Care Plan: Referral Order SNOMED-CT : 068668882 Pending 05/21/2018 Visit Plan: Cervical and thoracic s tenosis with spinal cord compression -refer for appt with Dr Marr -rx for hydrocodone for pain-start gabapentin at bedtime Soft tissue lesion-left chest-schedule CTfor further evaluation HTN-elevated today-hold adderall-monitor blood pressure 05/20/2018 Appointment: Hannah Simons WPtel[phone] [place] (15 min) Moderate 05/20/2018 Patient [...] order this. 05/10/2018 Appointment: Sonia Potter WPtel: [facility] (15 min) Moderate 05/10/2018 Patient Education: Patient Medication Summary Completed 05/10/2018 Visit Plan: Sleep apnea - rx for cp ap - actually autopap was recommended and pt given rx today. HTN - referral to dr. kapoor - pt needs stress testing. 01/15/2018 Appointment: Radha Gonzalez WPtel: [facility] (15 min) Moderate 01/15/2018 Patient Education: Patient Medication Summary Completed 01/15/2018 Care Plan: Referral Order SNOMED-CT : 031798757 Pending 01/15/2018 Visit Plan: Well Adult - [...] one month. 12/15/2017 Appointment: Radha Gonzalez WPtel: [facility] New Patient 12/15/2017 Patient Education: Patient Medication Summary Completed 12/15/2017 Care Plan: CHEST X-RAY 2VW FRONTAL&LATL LOINC : 61731-7 Pending 12/15/2017 Appointment: Radha Gonzalez WPtel: [phone] [facility] (15 min) Moderate 12/08/2017 Appointment: (S) [...] Ordering Provider 08/03 Referral info faxed to [facility]. Patient informed to be expecting a call from them with appt info Appointment Requested Referral: External, Ordering Provider Referral Appointment Requested Referral: External, Ordering Provider I called today; they will call him to schedule. Completed Referral: Armani Dunaway Referral Appointment Requested Referral: Mayte Kapoor Referral Appointment Requested Referral: [facility] [phone] [facility] Referral Appointment Requested Referral: External, Ordering [...] home. Cervical spine stenosis - referral to [facility]. I have also recommended a Referral to Dr. Dunaway. I have called and talked to Dr. Dunaway - he looked at the pt's imaging and agrees that getting the pt in to be seen soon [id number] [id number]
[2020-04-28 00:59] LABS: BILIRUBIN,TOTAL 0.4 MG/DL (0.1-1.0)
--- OUTSIDE RECORDS SUMMARY | 2020-04-28 00:59 | XMS REPORT | CCD ---
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 Name Role Phone PP Unavailable CCM Unavailable Summary Purpose Interface Exchange Insurance Providers Payer name Policy type / Coverage type Covered green party ID Effective Begin Date Effective End Date CORESOURCES Commercial Insurance [id number] 2017 Unknown Family history Brother Diagnosis Age At Onset Alcoholism Unknown Father Diagnosis Age At Onset Hypercholesterolemia Unknown Social History Social History Element Codes Description Effective Dates Marital status Unknown S chanda 12/15/2017 Number of children Unknown 1 12/15/2017 Employment Unknown 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 [employer] 12/15/[address]: 887329488 Never smoker 12/15/[address]: 829457 Currently drinks alcohol <1 per week 12/15/2017 [...] Date Stop Date Sta tus Fill Instructions Singulair 10 mg tablet RxNorm: 307802 1 Tablet(s) PO daily 11/01/2018 07/28/2019 Active testosterone cypiona te 200 mg/mL intramuscular oil RxNorm: 2026491 1 Milliliter(s) IM 2 x month 11/01/2018 02/28/2019 Active Adderall 30 mg tablet RxNorm: 327042 2 Tablet(s) PO daily 10/29/2018 11/27/2018 Active gabapentin 300 mg ca psule RxNorm: 098466 1 Capsule(s) PO BID m ay take TID 10/19/2018 02/15/2019 Ac tive gabapentin 300 mg ca psule RxNorm: 916859 1 Capsule(s) PO BID m ay take TID 10/19/2018 10/18/2018 In active alprazolam 1 mg tablet RxNorm: 180922 1 Tablet(s) PO TID as needed 10/15/2018 12/13/2018 Active testosterone cypiona te 200 mg/mL intramuscular oil RxNorm: 051507 Milliliter(s) IM 09/28/2018 09/28/2018 In active pravastatin 40 mg ta blet RxNorm: 026517 TAKE ONE TABLET BY MO [facility] EVERY NIGHT AT BEDTIME 09/27/2018 09/21/2019 Active Tamiflu 75 mg capsule RxNorm: 877033 1 Capsule(s) PO BID 09/24/2018 09/28/2018 Inactive hydrocodone 5 mg-fanny taminophen 325 mg tablet RxNorm: 268169 1 Tablet(s) PO TID CO N 09/20/2018 No Stop Date Active Adderall 30 mg tablet RxNorm: 504809 2 Tablet(s) PO daily 09/20/2018 10/19/2018 Inactive testosterone cypiona te 200 mg/mL intramuscular oil RxNorm: 568323 Milliliter(s) IM 09/16/2018 09/16/2018 In active testosterone cypiona te 200 mg/mL intramuscular oil RxNorm: 909124 1 Milliliter(s) IM 09/02/2018 09/02/2018 Inactive testosterone cypiona te 200 mg/mL intramuscular oil RxNorm: 659024 Milliliter(s) IM 08/19/2018 08/19/2018 In active tramadol 50 mg tablet RxNorm: 094615 1-2 Tablet(s) PO Q6 as needed 08/18/2018 No Stop Date Active Adderall 30 mg tablet RxNorm: 180142 2 Tablet(s) PO daily 08/18/2018 09/16/2018 Inactive Dexilant 60 mg capsu le, delayed release RxNorm: 360883 1 Capsule(s) PO BID 08/17/2018 08/11/2019 Ac tive atenolol 50 mg tablet RxNorm: 145964 1 Tablet(s) PO BID 08/17/2018 08/11/2019 Active Zorvolex 35 mg capsule RxNorm: 7220910 1 Capsule(s) PO TID as needed for pain 08/17/2018 02/12/2019 Ac tive ketoconazole 2 % top ical cream RxNorm: 821824 1 Gram(s) TOP BID 08/17/2018 08/26/2018 Inactive Zorvolex 35 mg capsule RxNorm: 0478296 1 Capsule(s) PO TID as needed for pain 08/17/2018 08/16/2018 In active ketoconazole 2 % top ical cream RxNorm: 457994 1 Gram(s) TOP BID 08/02/2018 08/11/2018 Inactive hydrocortisone 2.5 % topical cream RxNorm: 491924 1 Application TOP BID 07/21/2018 No Stop Date Active Adderall 30 mg tablet RxNorm: 265921 2 Tablet(s) PO daily 07/20/2018 08/17/2018 Inactive testosterone cypiona te 200 mg/mL intramuscular oil RxNorm: 966509 Milliliter(s) IM 07/15/2018 07/15/2018 In active alprazolam 1 mg tablet RxNorm: 147336 1 Tablet(s) PO TID as needed 07/12/2018 09/07/2018 Inactive hydrocodone 5 mg-fanny taminophen 325 mg tablet RxNorm: 709104 1 Tablet(s) PO TID CO N 06/30/2018 09/19/2018 In active pravastatin 40 mg ta blet RxNorm: 265792 1 Tablet(s) PO QHS 06/18/2018 09/15/2018 Inactive Adderall 30 mg tablet RxNorm: 008717 2 Tablet(s) PO daily 06/18/2018 07/17/2018 Inactive testosterone cypiona te 200 mg/mL intramuscular oil RxNorm: 327462 Milliliter(s) IM 06/17/2018 06/17/2018 In active Voltaren 1 % topical gel RxNorm: 542494 APPLY TOPICALLY TWO T IMES A DAY 06/16/2018 07/21/2018 In active Vitamin D2 50,000 un it capsule RxNorm: 9261403 1 Capsule(s) PO QW 05/21/2018 No Stop Date Active Adderall 30 mg tablet RxNorm: 607268 2 Tablet(s) PO daily 05/21/2018 06/17/2018 Inactive testosterone cypiona te 200 mg/mL intramuscular oil RxNorm: 316534 Milliliter(s) IM 05/21/2018 05/21/2018 In active testosterone cypiona te 200 mg/mL intramuscular oil RxNorm: 8465733 1 Milliliter(s) IM monthly 05/20/2018 09/16/2018 Inactive testosterone cypiona te 200 mg/mL intramuscular oil RxNorm: 858790 1 Milliliter(s) IM monthly 05/20/2018 05/19/2018 Inactive hydrocodone 5 mg-fanny taminophen 325 mg tablet RxNorm: 337831 1 Tablet(s) PO TID CO N 05/20/2018 06/29/2018 In active Vitamin D2 50,000 un it capsule RxNorm: 1390230 1 Capsule(s) PO QW 05/18/2018 05/20/2018 Inactive triamcinolone aceton destin 0.025 % topical cream RxNorm: 7074299 1 Application TOP BI D 05/13/2018 No Stop Date Active Dexilant 60 mg capsu le, delayed release RxNorm: 707418 1 Capsule(s) PO BID 05/13/2018 08/16/2018 In active Zorvolex 35 mg capsule RxNorm: 4410541 1 Capsule(s) PO TID as needed for pain 05/12/2018 08/09/2018 In active Voltaren 1 % topical gel RxNorm: 232029 1 Application TOP BID 05/12/2018 06/15/2018 Inactive acyclovir 400 mg tablet RxNorm: 311899 1 Tablet(s) PO TID as needed take at ons et of symptoms of cold sores x 5 days 05/10/2018 No Stop Date Active paroxetine 20 mg tablet RxNorm: 8483283 2 Tablet(s) PO QHS 05/10/2018 10/31/2019 Active ProAir HFA 90 mcg/ac tuation aerosol inhaler RxNorm: 013015 1 Puff(s) INH QID as needed 05/10/2018 No Stop Date Active trazodone 100 mg tablet RxNorm: 386628 1 Tablet(s) PO QHS 05/10/2018 11/05/2018 Active baclofen 20 mg tablet RxNorm: 984280 1 Tablet(s) PO TID as needed muscle spas ms 05/10/2018 06/08/2018 In active Singulair 10 mg tablet RxNorm: 436555 1 Tablet(s) PO daily 05/10/2018 08/07/2018 Inactive atenolol 50 mg tablet RxNorm: 412008 1 Tablet(s) PO BID 05/10/2018 08/07/2018 Inactive triamcinolone aceton destin 0.025 % topical cream RxNorm: 8877948 1 Application TOP BI D 05/10/2018 05/12/2018 In active tramadol 50 mg tablet RxNorm: 456188 1 Tablet(s) PO TID as needed 05/10/2018 05/19/2018 Inactive Dexilant 60 mg capsu le, delayed release RxNorm: 757200 1 Capsule(s) PO daily 05/10/2018 05/12/2018 In active alprazolam 1 mg tablet RxNorm: 244940 1 Tablet(s) PO TID as needed 05/10/2018 08/06/2018 Inactive cyclobenzaprine 10 m g tablet RxNorm: 180702 1 Tablet(s) PO TID as needed muscle spasms 05/07/2018 07/12/2018 Inactive trazodone 100 mg tablet RxNorm: 186223 1 Tablet(s) PO QHS 05/07/2018 05/09/2018 Inactive Adderall 30 mg tablet RxNorm: 261886 2 Tablet(s) PO daily 04/19/2018 05/18/2018 Inactive alprazolam 1 mg tablet RxNorm: 763787 1 Tablet(s) PO BID 04/19/2018 05/09/2018 Inactive Adderall 30 mg tablet RxNorm: 628718 2 Tablet(s) PO daily 03/26/2018 04/18/2018 Inactive paroxetine 20 mg tablet RxNorm: 8956808 2 Tablet(s) PO QHS 03/15/2018 05/09/2018 Inactive Adderall 30 mg tablet RxNorm: 157225 2 Tablet(s) PO daily 02/25/2018 03/25/2018 Inactive cyclobenzaprine 10 m g tablet RxNorm: 970892 1 Tablet(s) PO TID as needed muscle spasms 02/22/2018 05/06/2018 Inactive tramadol 50 mg tablet RxNorm: 206785 1 Tablet(s) PO TID as needed 02/22/2018 03/07/2018 Inactive tramadol 50 mg tablet RxNorm: 167321 1 Tablet(s) PO TID as needed 02/22/2018 02/21/2018 Inactive trazodone 100 mg tablet RxNorm: 552066 1 Tablet(s) PO QHS 02/03/2018 05/03/2018 Inactive trazodone 100 mg tablet RxNorm: 357462 1 Tablet(s) PO QHS 02/03/2018 02/02/2018 Inactive Adderall 30 mg tablet RxNorm: 733272 2 Tablet(s) PO daily 01/27/2018 02/18/2018 Inactive acyclovir 400 mg tablet RxNorm: 629985 1 Tablet(s) PO TID as needed take at ons et of symptoms of cold sores x 5 days 01/15/2018 05/09/2018 Inactive Bactrim DS 800 mg-16 0 mg tablet RxNorm: 618208 1 Tablet(s) PO BID 01/11/2018 01/17/2018 Inactive Bactrim DS 800 mg-16 0 mg tablet RxNorm: 630209 1 Tablet(s) PO BID 01/11/2018 01/10/2018 Inactive Dexilant 60 mg capsu le, delayed release RxNorm: 286303 1 Capsule(s) PO daily 12/23/2017 05/09/2018 In active Dexilant 60 mg capsu le, delayed release RxNorm: 374574 1 Capsule(s) PO daily 12/23/2017 12/22/2017 In active atenolol 50 mg tablet RxNorm: 311396 1 Tablet(s) PO BID 12/15/2017 05/09/2018 Inactive alprazolam 1 mg tablet RxNorm: 536036 1-1.5 Tablet(s) PO daily 12/15/2017 04/18/2018 Inactive ceftriaxone 500 mg s olution for injection RxNorm: 8438528 Inj 08/03/2015 08/03/2015 Inactive paroxetine 20 mg tablet RxNorm: 7476196 2 Tablet(s) PO QHS 08/01/2015 10/29/2015 Inactive pravastatin 40 mg ta blet RxNorm: 676218 1/2 Tablet(s) PO QHS 08/01/2015 12/14/2017 Inactive Trazadone 100mg 100 mg RxNorm: 1 PO daily 08/01/2015 11/27/2015 Inactive Trazadone 100mg 100 mg RxNorm: 1 PO daily 08/01/2015 05/04/2018 Inactive atenolol 50 mg tablet RxNorm: 435102 1 Tablet(s) PO daily 08/01/2015 10/29/2015 Inactive ibuprofen 800 mg tablet RxNorm: 692072 1 Tablet(s) PO BID -TID No Start Date Active Zyrtec 10 mg tablet RxNorm: 2698392 1 Tablet(s) PO daily No Start Date Active pravastatin 40 mg ta blet RxNorm: 901633 1/2 Tablet(s) PO QHS No Start Date 07/31/2015 Inactive Benadryl Allergy 25 mg tablet RxNorm: 7239867 1 Tablet(s) PO daily No Start Date 07/19/2018 Inactive Adderall 30 mg tablet RxNorm: 904788 2 Tablet(s) PO daily No Start Date 01/26/2018 Inactive Aspirin Low Dose 81 mg tablet,delayed release RxNorm: 193899 1 Tablet(s) PO BID No Start Date 07/19/2018 Inactive Singulair 10 mg tablet RxNorm: 909406 1 Tablet(s) PO daily No Start Date 05/09/2018 Inactive cyclobenzaprine 10 m g tablet RxNorm: 697104 1 Tablet(s) PO TID as needed muscle spasms No Start Date 02/21/2018 Inactive Trazadone 100mg 100 mg RxNorm: 1 PO daily No Start Date 07/31/2015 Inactive hydrocortisone 2.5 % topical cream RxNorm: 721996 1 Application TOP BID No Start Date 07/20/2018 Inactive alprazolam 1 mg tablet RxNorm: 500689 2 Tablet(s) PO daily No Start Date 12/14/2017 Inactive tramadol 50 mg tablet RxNorm: 448604 1-2 Tablet(s) PO Q6 as needed No Start Date 08/17/2018 Inactive Vitamin D2 50,000 un it capsule RxNorm: 7133353 1 Capsule(s) PO QW No Start Date 05/17/2018 Inactive pantoprazole 40 mg t ablet,delayed release RxNorm: 928012 1 Tablet(s) PO BID No Start Date 12/22/2017 Inactive atenolol 50 mg tablet RxNorm: 722960 1 Tablet(s) PO daily No Start Date 07/31/2015 Inactive paroxetine 20 mg tablet RxNorm: 372135 2 Tablet(s) PO QHS No Start Date 07/31/2015 Inactive Medication Administered Medication Codes Instruc tions Start Date Status testosterone cypionate 200 mg/mL intramuscular oil RxNorm: 406284 Milliliter 09/28/2018 No longer Active testosterone cypionate 200 mg/mL intramuscular oil RxNorm: 324631 Milliliter 09/16/2018 No longer Active testosterone cypionate 200 mg/mL intramuscular oil RxNorm: 202688 1Milliliter 09/02/2018 No longer Active testosterone cypionate 200 mg/mL intramuscular oil RxNorm: 314712 Milliliter 08/19/2018 No longer Active testosterone cypionate 200 mg/mL intramuscular oil RxNorm: 757166 Milliliter 07/15/2018 No longer Active testosterone cypionate 200 mg/mL intramuscular oil RxNorm: 372027 Milliliter 06/17/2018 No longer Active testosterone cypionate 200 mg/mL intramuscular oil RxNorm: 274129 Milliliter 05/21/2018 No longer Active ceftriaxone 500 mg solution for injection RxNorm: 3027600 08/03/2015 No longer A ctive Immunizations Vaccine [...] Item Item Code Result Date Testosterone Serum 783672 TESTOSTERONE 44.1 ng/dL 08/18/2018 Hemoglobin 746572 WBC 7.62 thou/uL 08/17/2018 Hemoglobin 130800 RBC 5.23 mil/uL 08/17/2018 Hemoglobin 759939 HEMOGL OBIN 15.0 g/dL 08/17/2018 Hemoglobin 840541 HEMATO CRIT 45.0 % 08/17/2018 Hemoglobin 074848 MCV 86.0 fL 08/17/2018 Hemoglobin 506687 MCH 28.7 pg 08/17/2018 Hemoglobin 216054 MCHC 33.3 g/dL 08/17/2018 Hemoglobin 729583 RDW-CV 12.9 % 08/17/2018 Hemoglobin 249587 PLATEL ET COUNT 313 thou/uL 08/17/2018 Hematocrit 438115 WBC 7.62 thou/uL 08/17/2018 Hematocrit 702499 RBC 5.23 mil/uL 08/17/2018 Hematocrit 631348 HEMOGL OBIN 15.0 g/dL 08/17/2018 Hematocrit 219452 HEMATO CRIT 45.0 % 08/17/2018 Hematocrit 197434 MCV 86.0 fL 08/17/2018 Hematocrit 583834 MCH 28.7 pg 08/17/2018 Hematocrit 485446 MCHC 33.3 g/dL 08/17/2018 Hematocrit 382093 RDW-CV 12.9 % 08/17/2018 Hematocrit PLATEL ET COUNT 313 thou/uL 08/17/2018 Culture Mrsa 955913 MRSA CULTURE SEE NOTES 06/21/2018 Comp. Metabolic Panel (14) 67530 GLUCOSE 101 mg/dL 06/18/2018 Comp. Metabolic Panel (14) 96945 BUN 18 mg/dL 06/18/2018 Comp. Metabolic Panel (14) 16971 CREATININE 0.99 mg/dL 06/18/2018 Comp. Metabolic Panel (14) 26300 SODIUM 141 mmol/L 06/18/2018 Comp. Metabolic Panel (14) 82225 POTASSIUM 4.3 mmol/L 06/18/2018 Comp. Metabolic Panel (14) 27590 CHLORIDE 103 mmol/L 06/18/2018 Comp. Metabolic Panel (14) 20736 CARBON DIOXIDE 23 mmol/L 06/18/2018 Comp. Metabolic Panel (14) 63213 CALCIUM 9.8 mg/dL 06/18/2018 Comp. Metabolic Panel (14) 78877 TOTAL PROTEIN 7.1 g/dL 06/18/2018 Comp. Metabolic Panel (14) 50272 ALBUMIN 5.2 g/dL 06/18/2018 Comp. Metabolic Panel (14) 77578 ALKALINE PHOSPHATASE 65 U/L 06/18/2018 Comp. Metabolic Panel (14) 95231 TOTAL BILIRUBIN 0.6 mg/dL 06/18/2018 Comp. Metabolic Panel (14) 00245 SGOT (AST) 21 U/L 06/18/2018 Comp. Metabolic Panel (14) 12384 SGPT (ALT) 24 U/L 06/18/2018 Comp. Metabolic Panel (14) 06187 eGFR (mL/min/1.73m2) 115 06/18/2018 Comp. Metabolic Panel (14) 02478 INTERPRETATION 06/18/2018 Cbc With Differential/Platelet 44314 WBC 4.55 thou/uL 8 Cbc With Differential/Platelet 79630 RBC 5.13 mil/uL 06/18/2018 Cbc With Differential/Platelet 66107 HEMOGLOBIN 14.4 g/dL 06/18/2018 Cbc With Differential/Platelet 78308 HEMATOCRIT 44.1 % 06/18/2018 Cbc With Differential/Platelet 34529 MCV 85.9 fL 06/18/2018 Cbc With Differential/Platelet 40230 MCH 28.1 pg 06/18/2018 Cbc With Differential/Platelet 15254 MCHC 32.7 g/dL 06/18/2018 Cbc With Differential/Platelet 47041 RDW-CV 13.4 % 06/18/2018 Cbc With Differential/Platelet 84435 PLATELET COUNT 287 thou/uL 06/18/2018 Cbc With Differential/Platelet 33916 NEUTROPHIL % 53.9 % 06/18/2018 Cbc With Differential/Platelet 96540 LYMPHOCYTE % 36.1 % 06/18/2018 Cbc With Differential/Platelet 10306 MONOCYTE % 7.4 % 06/18/2018 Cbc With Differential/Platelet 84465 EOS % 1.9 % 06/18/2018 Cbc With Differential/Platelet 35433 BASO % 0.8 % 06/18/2018 Cbc With Differential/Platelet 41974 NEUTROPHIL ABS # 2.45 thou/uL 06/18/2018 Cbc With Differential/Platelet 11962 LYMPH ABS # 1.64 thou/uL 06/18/2018 Cbc With Differential/Platelet 97808 MONOCYTE ABS # 0.34 thou/uL 06/18/2018 Cbc With Differential/Platelet 62070 EOS ABS # 0.09 thou/uL 8 Cbc With Differential/Platelet 65393 BASO ABS # 0.04 thou/uL 06/18/2018 Review [...] Procedure Codes Date THER/PROPH/DIAG INJ SC/IM CPT-4: 24821 09/28/2018 THER/PROPH/DIAG INJ SC/IM CPT-4: 55791 09/16/2018 THER/PROPH/DIAG INJ SC/IM CPT-4: 96993 09/02/2018 THER/PROPH/DIAG INJ SC/IM CPT-4: 82583 08/19/2018 IMMUNIZATION ADMIN CPT- 4: 47427 08/02/2018 FLU VAC NO PRSV 4 VA L 3 YRS+ CPT-4: 56200 08/02/2018 THER/PROPH/DIAG INJ SC/IM CPT-4: 17196 07/15/2018 THER/PROPH/DIAG INJ SC/IM CPT-4: 21744 06/17/2018 THER/PROPH/DIAG INJ SC/IM CPT-4: 34039 05/21/2018 THER/PROPH/DIAG INJ SC/IM CPT-4: 86784 08/03/2015 ROCEPHIN, PER 250 MG CPT-4: J0696 08/03/2015 Vital Signs Date Vital 11/01/2018 Blood Pressure 1: 146/82 Code: 8480-6 BMI: 36.0 Code: 90049-2 Heart Rate 1: 87 bpm Height: 5'7" SpO2: 98% Weight: 230 lbs 09/24/2018 Blood Pressure 1: 140/82 Code: 8480-6 BMI: 36.0 Code: 41318-2 Heart Rate 1: 86 bpm Height: 5'7" SpO2: 98% Temperature: 37.1 (C ) / 98.7 (F) Weight: 230 lbs 08/16/2018 Blood Pressure 1: 148/82 Code: 8480-6 Blood Pressure 2: 157/92 Code: 8480-6 BMI: 35.9 Code: 93285-0 Heart Rate 1: 72 bpm Height: 5'7" SpO2: 96% Weight: 229 lbs 08/02/2018 Blood Pressure 1: 142/86 Code: 8480-6 BMI: 35.2 Code: 15931-5 Heart Rate 1: 101 bpm Height: 5'7" SpO2: 97% Weight: 225 lbs 05/31/2018 Blood Pressure 1: 134/82 Code: 8480-6 BMI: 35.4 Code: 03800-6 Heart Rate 1: 91 bpm Height: 5'7" SpO2: 96% Weight: 226 lbs 05/20/2018 Blood Pressure 1: 160/100 Code: 8480-6 BMI: 35.2 Code: 26473-9 Heart Rate 1: 89 bpm Height: 5'7" SpO2: 98% Weight: 225 lbs 05/10/2018 Blood Pressure 1: 124/70 Code: 8480-6 BMI: 35.1 Code: 38883-6 Heart Rate 1: 93 bpm Height: 5'7" SpO2: 99% Weight: 224 lbs 01/15/2018 Blood Pressure 1: 142/92 Code: 8480-6 BMI: 36.3 Code: 02037-5 Heart Rate 1: 77 bpm Height: 5'7" SpO2: 98% Weight: 232 lbs 12/15/2017 Blood Pressure 1: 156/98 Code: 8480-6 BMI: 36.2 Code: 42630-1 Heart Rate 1: 87 bpm Height: 5'7" [...] eye 01/15/2018 None vision change Quality ac [place] 01/15/2018 None vision change Quality lo ss [...] vision 12/15/2017 None vision change Quality ac [place] 12/15/2017 None vision change Onset and Resolution sudden in onset 12/15/2017 None vision change Onset of Symptom 3.5 weeks ago 12/15/2017 None vision change Limitation on Activities severely limits vision 12/15/2017 None vision change Triggers n o known associated factors 12/15/2017 None Advance Directives No Advance Directive data Encounters Encounter Performer Loca tion Codes Date 03975 EST. 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 PATIENT, LEVEL III Diagnosis: Acute upper respiratory infection, unspecified[ICD10: J06.9] Diagnosis: Other allergic rhinitis[ICD10: J30.89] [facility] CPT-4: 54204 09/24/2018 ([id number] 15044 EST. 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 P ATIENT, LEVEL IV Diagnosis: Essential (primary) hypertension[ICD10: I10] Diagnosis: Cervicalgia[ICD10: M54.2] Radha Gonzalez MD, [facility] CPT-4: 74934 05/31/2018 ([id number]) 94068 EST. 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 11/01/2018 Patient Education: Patient Medication Summary Completed [...] allergy spray. 09/24/2018 Appointment: Sonia Potter WPtel: [address] [place], [place] [address] (15 min) Moderate 09/24/2018 Patient Education: Patient [...] at home. Multiple symptoms - referral to [facility] - appt in September 30, 2018. 08/16/2018 Appointment: Radha Gonzalez [facility]Ptel[facility] (15 min) Moderate 08/16/2018 Patient [...] at home. Multiple symptoms - referral to [facility] - rashes, hypogonadism, optic neuritis - all points to possible autoimmune syndrome. Spinal stenosis - of thoracic region - pt to talk to Dr. Dunaway about referral to a different specialist for his mid- back. Hypogonadism - continue with testosterone. Flu shot given today in clinic. 08/02/2018 Appointment: [facility] [phone] [facility] (15 min) Moderate 08/02/2018 Patient Education: Patient Medication Summary Completed 08/02/2018 Care Plan: Referral Order SNOMED-CT : 115934459 Pending 08/02/2018 Appointment: Injection 07/15/2018 Patient Education: [...] Cervical spine stenosis - referral to [facility] therapy. I have also recommended a Referral to Dr. Dunaway. I have called and talked to Dr. Dunaway - he looked at the pt's imaging and agrees that getting the pt in to be seen soon would be a preferred option. 05/31/2018 Appointment: Radha Gonzalez WPtel: [phone] [facility] (15 min) Moderate 05/31/2018 Patient Education: Patient Medication Summary Completed 05/31/2018 Care Plan: Referral Order SNOMED-CT : 550127988 Pending 05/31/2018 Care Plan: Referral Order SNOMED-CT : 695154598 Pending 05/31/2018 Appointment: Injection 05/21/2018 Patient Education: Patient Medication Summary Completed 05/21/2018 Care Plan: Referral Order SNOMED-CT : 792164645 Pending 05/21/2018 Visit Plan: Cervical and thoracic s tenosis with spinal cord compression -refer for appt with Dr Marr -rx for hydrocodone for pain-start gabapentin at bedtime Soft tissue lesion-left chest-schedule CTfor further evaluation HTN-elevated today-hold adderall-monitor blood pressure 05/20/2018 Appointment: Hannah Simons WPtel: [phone] [phone] [place] (15 min) Moderate 05/20/2018 Patient [...] this. 05/10/2018 Appointment: Sonia Potter WPtel: [phone] [facility] [place] (15 min) Moderate 05/10/2018 Patient Education: Patient Medication Summary Completed 05/10/2018 Visit Plan: Sleep apnea - rx for cp ap - actually autopap was recommended and pt given rx today. HTN - referral to dr. kapoor - pt needs stress testing. 01/15/2018 Appointment: Radha Gonzalez WPtel: [facility] (15 min) Moderate 01/15/2018 Patient Education: Patient Medication Summary Completed 01/15/2018 Care Plan: Referral Order SNOMED-CT : 574597063 Pending 01/15/2018 Visit Plan: Well Adult - [...] one month. 12/15/2017 Appointment: Radha Gonzalez WPtel: [address] [place], [place] [address] [place] New Patient 12/15/2017 Patient Education: Patient Medication Summary Completed 12/15/2017 Care Plan: CHEST X-RAY 2VW FRONTAL&LATL LOINC : 88392-2 Pending 12/15/2017 Appointment: Radha Gonzalez WPtel: [facility] (15 min) Moderate 12/08/2017 Appointment: [...] Ordering Provider 08/03 Referral info faxed to [place]. Patient informed to be expecting a call from them with appt info Appointment Requested Referral: External, Ordering Provider Referral Appointment Requested Referral: External, Ordering Provider I called today; they will call him to schedule. Completed Referral: Armani Dunaway Referral Appointment Requested Referral: Mayte Kapoor Referral Appointment Requested Referral: [facility] [phone] [facility] Referral Appointment Requested Referral: External, Ordering Provider [...] at home. Multiple symptoms - referral to [facility] - rashes, hypogonadism, optic neuritis [...] at home. Multiple symptoms - referral to [facility] - appt in September 30, [...]
--- OUTSIDE RECORDS SUMMARY | 2020-04-28 00:59 | XMS REPORT | CCD ---
Author Author Nilton Gonzalez Organization Radha Gonzalez MD, [facility] Address [address] [place] [address] Phone Care Team Providers Care Infusion Nurse Name Role Phone PP Unavailable CCM Unavailable Summary Purpose Interface Exchange Insurance Providers Payer name Policy type / Coverage type Covered libertarian ID Effective Begin Date Effective End Date CORESOURCES Commercial Insurance [id number] 2017 Unknown Family history Brother Diagnosis Age At Onset Alcoholism Unknown Father Diagnosis Age At Onset Hypercholesterolemia Unknown Social History Social History Element Codes Description Effective Dates Marital status Unknown S chanda 12/15/2017 Number of children Unknown 1 12/15/2017 Employment Unknown Curre ntly employed [employer] 12/15/[address]: 913133527 Never smoker 12/15/[address]: 553673 Currently drinks alcohol <1 per week 12/15/2017 [...] ICD-9: 477.8 ICD-10: J30.89 Active 09/24/2018 Unknown Essential (primary) hypertension ICD-9: 401.1 ICD-10: I10 Active 12/15/2017 Unknown Rash and other nonsp ecific skin eruption ICD-9: 782.1 ICD-10: R21 Active 08/02/2018 Unknown Spinal stenosis, tho racic region ICD-9: 724.01 ICD-10: M48.04 Active 05/20/2018 Unknown VACCIN FOR INFLUENZA ICD-9: V04.81 ICD-10: Z23 Active 08/02/2018 Unknown Cervicalgia ICD-9: 723.1 ICD-10: M54.2 Active 05/10/2018 Unknown Spinal stenosis, cer vical [...] rhinitis ICD-9: 477.8 ICD-10: J30.89 09/24/2018 Active Essential (primary) hypertension ICD-9: 401.1 ICD-10: I10 12/15/2017 Active Rash and other nonsp ecific skin eruption ICD-9: 782.1 ICD-10: R21 08/02/2018 Active Spinal stenosis, tho racic region ICD-9: 724.01 ICD-10: M48.04 05/20/2018 Active VACCIN FOR INFLUENZA ICD-9: V04.81 ICD-10: Z23 08/02/2018 Active Cervicalgia ICD-9: 723.1 ICD-10: M54.2 05/10/2018 Active Spinal stenosis, cer vical region [...] 724.1 ICD-10: M54.6 05/10/2018 Active Encounter for [facility] adult medical examination with abnormal findings ICD-9: V70.0 ICD-10: Z00.01 12/15/2017 Active Laceration of thumb ICD- 9: 883.0 08/02/2015 Active Medications Medication Codes Instruc tions Start Date Stop Date Sta tus Fill Instructions Adderall 30 mg tablet RxNorm: 457287 2 Tablet(s) PO daily 10/29/2018 11/27/2018 Active gabapentin 300 mg ca psule RxNorm: 615482 1 Capsule(s) PO BID m ay take TID 10/19/2018 02/15/2019 Ac tive gabapentin 300 mg ca psule RxNorm: 680971 1 Capsule(s) PO BID m ay take TID 10/19/2018 10/18/2018 In active alprazolam 1 mg tablet RxNorm: 487841 1 Tablet(s) PO TID as needed 10/15/2018 12/13/2018 Active testosterone cypiona te 200 mg/mL intramuscular oil RxNorm: 101282 Milliliter(s) IM 09/28/2018 09/28/2018 In active pravastatin 40 mg ta blet RxNorm: 440665 TAKE ONE TABLET BY MO UT EVERY NIGHT AT BEDTIME 09/27/2018 09/21/2019 Active Tamiflu 75 mg capsule RxNorm: 702951 1 Capsule(s) PO BID 09/24/2018 09/28/2018 Inactive hydrocodone 5 mg-fanny taminophen 325 mg tablet RxNorm: 374183 1 Tablet(s) PO TID IA N 09/20/2018 No Stop Date Active Adderall 30 mg tablet RxNorm: 784956 2 Tablet(s) PO daily 09/20/2018 10/19/2018 Inactive testosterone cypiona te 200 mg/mL intramuscular oil RxNorm: 758034 Milliliter(s) IM 09/16/2018 09/16/2018 In active testosterone cypiona te 200 mg/mL intramuscular oil RxNorm: 729963 1 Milliliter(s) IM 09/02/2018 09/02/2018 Inactive testosterone cypiona te 200 mg/mL intramuscular oil RxNorm: 421457 Milliliter(s) IM 08/19/2018 08/19/2018 In active tramadol 50 mg tablet RxNorm: 686549 1-2 Tablet(s) PO Q6 as needed 08/18/2018 No Stop Date Active Adderall 30 mg tablet RxNorm: 301371 2 Tablet(s) PO daily 08/18/2018 09/16/2018 Inactive Dexilant 60 mg capsu le, delayed release RxNorm: 886749 1 Capsule(s) PO BID 08/17/2018 08/11/2019 Ac tive atenolol 50 mg tablet RxNorm: 838976 1 Tablet(s) PO BID 08/17/2018 08/11/2019 Active Zorvolex 35 mg capsule RxNorm: 5987578 1 Capsule(s) PO TID as needed for pain 08/17/2018 02/12/2019 Ac tive ketoconazole 2 % top ical cream RxNorm: 956992 1 Gram(s) TOP BID 08/17/2018 08/26/2018 Inactive Zorvolex 35 mg capsule RxNorm: 0112350 1 Capsule(s) PO TID as needed for pain 08/17/2018 08/16/2018 In active ketoconazole 2 % top ical cream RxNorm: 762302 1 Gram(s) TOP BID 08/02/2018 08/11/2018 Inactive hydrocortisone 2.5 % topical cream RxNorm: 589343 1 Application TOP BID 07/21/2018 No Stop Date Active Adderall 30 mg tablet RxNorm: 450359 2 Tablet(s) PO daily 07/20/2018 08/17/2018 Inactive testosterone cypiona te 200 mg/mL intramuscular oil RxNorm: 224975 Milliliter(s) IM 07/15/2018 07/15/2018 In active alprazolam 1 mg tablet RxNorm: 398213 1 Tablet(s) PO TID as needed 07/12/2018 09/07/2018 Inactive hydrocodone 5 mg-fanny taminophen 325 mg tablet RxNorm: 189269 1 Tablet(s) PO TID IA N 06/30/2018 09/19/2018 In active pravastatin 40 mg ta blet RxNorm: 096773 1 Tablet(s) PO QHS 06/18/2018 09/15/2018 Inactive Adderall 30 mg tablet RxNorm: 172008 2 Tablet(s) PO daily 06/18/2018 07/17/2018 Inactive testosterone cypiona te 200 mg/mL intramuscular oil RxNorm: 126248 Milliliter(s) IM 06/17/2018 06/17/2018 In active Voltaren 1 % topical gel RxNorm: 243361 APPLY TOPICALLY TWO T IMES A DAY 06/16/2018 07/21/2018 In active Vitamin D2 50,000 un it capsule RxNorm: 9184801 1 Capsule(s) PO QW 05/21/2018 No Stop Date Active Adderall 30 mg tablet RxNorm: 372202 2 Tablet(s) PO daily 05/21/2018 06/17/2018 Inactive testosterone cypiona te 200 mg/mL intramuscular oil RxNorm: 093875 Milliliter(s) IM 05/21/2018 05/21/2018 In active testosterone cypiona te 200 mg/mL intramuscular oil RxNorm: 571217 1 Milliliter(s) IM monthly 05/20/2018 09/16/2018 Inactive testosterone cypiona te 200 mg/mL intramuscular oil RxNorm: 489920 1 Milliliter(s) IM monthly 05/20/2018 05/19/2018 Inactive hydrocodone 5 mg-fanny taminophen 325 mg tablet RxNorm: 211593 1 Tablet(s) PO TID IA N 05/20/2018 06/29/2018 In active Vitamin D2 50,000 un it capsule RxNorm: 6247470 1 Capsule(s) PO QW 05/18/2018 05/20/2018 Inactive triamcinolone aceton destin 0.025 % topical cream RxNorm: 9084287 1 Application TOP BI D 05/13/2018 No Stop Date Active Dexilant 60 mg capsu le, delayed release RxNorm: 495032 1 Capsule(s) PO BID 05/13/2018 08/16/2018 In active Zorvolex 35 mg capsule RxNorm: 5204801 1 Capsule(s) PO TID as needed for pain 05/12/2018 08/09/2018 In active Voltaren 1 % topical gel RxNorm: 319672 1 Application TOP BID 05/12/2018 06/15/2018 Inactive Singulair 10 mg tablet RxNorm: 328900 1 Tablet(s) PO daily 05/10/2018 08/07/2018 Inactive acyclovir 400 mg tablet RxNorm: 555525 1 Tablet(s) PO TID as needed take at ons et of symptoms of cold sores x 5 days 05/10/2018 No Stop Date Active paroxetine 20 mg tablet RxNorm: 1427913 2 Tablet(s) PO QHS 05/10/2018 10/31/2019 Active ProAir HFA 90 mcg/ac tuation aerosol inhaler RxNorm: 247394 1 Puff(s) INH QID as needed 05/10/2018 No Stop Date Active trazodone 100 mg tablet RxNorm: 962023 1 Tablet(s) PO QHS 05/10/2018 11/05/2018 Active baclofen 20 mg tablet RxNorm: 403224 1 Tablet(s) PO TID as needed muscle spas ms 05/10/2018 06/08/2018 In active atenolol 50 mg tablet RxNorm: 876412 1 Tablet(s) PO BID 05/10/2018 08/07/2018 Inactive triamcinolone aceton destin 0.025 % topical cream RxNorm: 6542612 1 Application TOP BI D 05/10/2018 05/12/2018 In active tramadol 50 mg tablet RxNorm: 867496 1 Tablet(s) PO TID as needed 05/10/2018 05/19/2018 Inactive Dexilant 60 mg capsu le, delayed release RxNorm: 178066 1 Capsule(s) PO daily 05/10/2018 05/12/2018 In active alprazolam 1 mg tablet RxNorm: 084667 1 Tablet(s) PO TID as needed 05/10/2018 08/06/2018 Inactive cyclobenzaprine 10 m g tablet RxNorm: 573885 1 Tablet(s) PO TID as needed muscle spasms 05/07/2018 07/12/2018 Inactive trazodone 100 mg tablet RxNorm: 202548 1 Tablet(s) PO QHS 05/07/2018 05/09/2018 Inactive Adderall 30 mg tablet RxNorm: 619419 2 Tablet(s) PO daily 04/19/2018 05/18/2018 Inactive alprazolam 1 mg tablet RxNorm: 222591 1 Tablet(s) PO BID 04/19/2018 05/09/2018 Inactive Adderall 30 mg tablet RxNorm: 096315 2 Tablet(s) PO daily 03/26/2018 04/18/2018 Inactive paroxetine 20 mg tablet RxNorm: 4238191 2 Tablet(s) PO QHS 03/15/2018 05/09/2018 Inactive Adderall 30 mg tablet RxNorm: 795220 2 Tablet(s) PO daily 02/25/2018 03/25/2018 Inactive cyclobenzaprine 10 m g tablet RxNorm: 755921 1 Tablet(s) PO TID as needed muscle spasms 02/22/2018 05/06/2018 Inactive tramadol 50 mg tablet RxNorm: 494853 1 Tablet(s) PO TID as needed 02/22/2018 03/07/2018 Inactive tramadol 50 mg tablet RxNorm: 562734 1 Tablet(s) PO TID as needed 02/22/2018 02/21/2018 Inactive trazodone 100 mg tablet RxNorm: 930019 1 Tablet(s) PO QHS 02/03/2018 05/03/2018 Inactive trazodone 100 mg tablet RxNorm: 958207 1 Tablet(s) PO QHS 02/03/2018 02/02/2018 Inactive Adderall 30 mg tablet RxNorm: 875002 2 Tablet(s) PO daily 01/27/2018 02/18/2018 Inactive acyclovir 400 mg tablet RxNorm: 514884 1 Tablet(s) PO TID as needed take at ons et of symptoms of cold sores x 5 days 01/15/2018 05/09/2018 Inactive Bactrim DS 800 mg-16 0 mg tablet RxNorm: 129688 1 Tablet(s) PO BID 01/11/2018 01/17/2018 Inactive Bactrim DS 800 mg-16 0 mg tablet RxNorm: 325091 1 Tablet(s) PO BID 01/11/2018 01/10/2018 Inactive Dexilant 60 mg capsu le, delayed release RxNorm: 448718 1 Capsule(s) PO daily 12/23/2017 05/09/2018 In active Dexilant 60 mg capsu le, delayed release RxNorm: 157985 1 Capsule(s) PO daily 12/23/2017 12/22/2017 In active atenolol 50 mg tablet RxNorm: 556959 1 Tablet(s) PO BID 12/15/2017 05/09/2018 Inactive alprazolam 1 mg tablet RxNorm: 276024 1-1.5 Tablet(s) PO daily 12/15/2017 04/18/2018 Inactive ceftriaxone 500 mg s olution for injection RxNorm: 7951690 Inj 08/03/2015 08/03/2015 Inactive paroxetine 20 mg tablet RxNorm: 8778857 2 Tablet(s) PO QHS 08/01/2015 10/29/2015 Inactive pravastatin 40 mg ta blet RxNorm: 562216 1/2 Tablet(s) PO QHS 08/01/2015 12/14/2017 Inactive Trazadone 100mg 100 mg RxNorm: 1 PO daily 08/01/2015 11/27/2015 Inactive Trazadone 100mg 100 mg RxNorm: 1 PO daily 08/01/2015 05/04/2018 Inactive atenolol 50 mg tablet RxNorm: 026148 1 Tablet(s) PO daily 08/01/2015 10/29/2015 Inactive ibuprofen 800 mg tablet RxNorm: 294335 1 Tablet(s) PO BID -TID No Start Date Active Zyrtec 10 mg tablet RxNorm: 1449640 1 Tablet(s) PO daily No Start Date Active pravastatin 40 mg ta blet RxNorm: 045134 1/2 Tablet(s) PO QHS No Start Date 07/31/2015 Inactive Benadryl Allergy 25 mg tablet RxNorm: 0444847 1 Tablet(s) PO daily No Start Date 07/19/2018 Inactive Adderall 30 mg tablet RxNorm: 506533 2 Tablet(s) PO daily No Start Date 01/26/2018 Inactive Aspirin Low Dose 81 mg tablet,delayed release RxNorm: 387287 1 Tablet(s) PO BID No Start Date 07/19/2018 Inactive Singulair 10 mg tablet RxNorm: 163451 1 Tablet(s) PO daily No Start Date 05/09/2018 Inactive cyclobenzaprine 10 m g tablet RxNorm: 307962 1 Tablet(s) PO TID as needed muscle spasms No Start Date 02/21/2018 Inactive Trazadone 100mg 100 mg RxNorm: 1 PO daily No Start Date 07/31/2015 Inactive hydrocortisone 2.5 % topical cream RxNorm: 044676 1 Application TOP BID No Start Date 07/20/2018 Inactive alprazolam 1 mg tablet RxNorm: 119043 2 Tablet(s) PO daily No Start Date 12/14/2017 Inactive tramadol 50 mg tablet RxNorm: 217397 1-2 Tablet(s) PO Q6 as needed No Start Date 08/17/2018 Inactive Vitamin D2 50,000 un it capsule RxNorm: 6965383 1 Capsule(s) PO QW No Start Date 05/17/2018 Inactive pantoprazole 40 mg t ablet,delayed release RxNorm: 714612 1 Tablet(s) PO BID No Start Date 12/22/2017 Inactive atenolol 50 mg tablet RxNorm: 592440 1 Tablet(s) PO daily No Start Date 07/31/2015 Inactive paroxetine 20 mg tablet RxNorm: 837527 2 Tablet(s) PO QHS No Start Date 07/31/2015 Inactive Medication Administered Medication Codes Instruc tions Start Date Status testosterone cypionate 200 mg/mL intramuscular oil RxNorm: 681738 Milliliter 09/28/2018 No longer Active testosterone cypionate 200 mg/mL intramuscular oil RxNorm: 075790 Milliliter 09/16/2018 No longer Active testosterone cypionate 200 mg/mL intramuscular oil RxNorm: 720200 1Milliliter 09/02/2018 No longer Active testosterone cypionate 200 mg/mL intramuscular oil RxNorm: 388743 Milliliter 08/19/2018 No longer Active testosterone cypionate 200 mg/mL intramuscular oil RxNorm: 658303 Milliliter 07/15/2018 No longer Active testosterone cypionate 200 mg/mL intramuscular oil RxNorm: 369769 Milliliter 06/17/2018 No longer Active testosterone cypionate 200 mg/mL intramuscular oil RxNorm: 056226 Milliliter 05/21/2018 No longer Active ceftriaxone 500 mg solution for injection RxNorm: 2546864 08/03/2015 No longer A ctive Immunizations Vaccine Codes Date Status Influenza CVX: 141 08/02 completed Tetanus, Diptheria, Pertussis CVX: 113 05/16/2011 completed Tetanus/Diptheria CVX: 113 05/16/2011 completed Assessments Condition Codes Effectiv e Dates 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 ICD-9: 257.2 09/28/2018 Other allergic rhinitis ICD-10: J30. 89 ICD-9: 477.8 09/24/2018 Acute upper respiratory infection, unspecified ICD-10: J06.9 ICD-9: 465.9 09/24/2018 Essential (primary) hypertension ICD -10: I10 ICD-9: 401.1 08/16/2018 VACCIN FOR INFLUENZA ICD-10: Z23 ICD-9: V04.81 08/02/2018 Spinal stenosis, thoracic region ICD -10: M48.04 ICD-9: 724.01 08/02/2018 Rash and other nonspecific skin eruption ICD-10: R21 ICD-9: 782.1 08/02/2018 Cervicalgia ICD-10: M54.2 ICD-9: 723.1 05/31/2018 Spinal stenosis, cervical region ICD -10: M48.02 [...] Visit Reason For Visit Effective Dates Notes sinus congestion 09/24/2018 back pain 08/16/2018 back pain 08/02/2018 back pain 05/31/2018 back pain 05/20/2018 medication follow up 05/10/2018 vision change 01/15/2018 vision change 12/15/2017 Results Observation Observation Code Item Item Code Result Date Testosterone Serum 420570 TESTOSTERONE 44.1 ng/dL 08/18/2018 Hemoglobin 760587 WBC 7.62 thou/uL 08/17/2018 Hemoglobin 015754 RBC 5.23 mil/uL 08/17/2018 Hemoglobin 719096 HEMOGL OBIN 15.0 g/dL 08/17/2018 Hemoglobin 275020 HEMATO CRIT 45.0 % 08/17/2018 Hemoglobin 351171 MCV 86.0 fL 08/17/2018 Hemoglobin 386038 MCH 28.7 pg 08/17/2018 Hemoglobin 331863 MCHC 33.3 g/dL 08/17/2018 Hemoglobin 950651 RDW-CV 12.9 % 08/17/2018 Hemoglobin 481631 PLATEL ET COUNT 313 thou/uL 08/17/2018 Hematocrit 654004 WBC 7.62 thou/uL 08/17/2018 Hematocrit 999920 RBC 5.23 mil/uL 08/17/2018 Hematocrit 309224 HEMOGL OBIN 15.0 g/dL 08/17/2018 Hematocrit 208934 HEMATO CRIT 45.0 % 08/17/2018 Hematocrit 022395 MCV 86.0 fL 08/17/2018 Hematocrit 817102 MCH 28.7 pg 08/17/2018 Hematocrit 885538 MCHC 33.3 g/dL 08/17/2018 Hematocrit 847876 RDW-CV 12.9 % 08/17/2018 Hematocrit 692989 PLATEL ET COUNT 313 thou/uL 08/17/2018 Culture Mrsa 340236 MRSA CULTURE SEE NOTES 06/21/2018 Comp. Metabolic Panel (14) 87348 GLUCOSE 101 mg/dL 06/18/2018 Comp. Metabolic Panel (14) 85190 BUN 18 mg/dL 06/18/2018 Comp. Metabolic Panel (14) 54918 CREATININE 0.99 mg/dL 06/18/2018 Comp. Metabolic Panel (14) 38298 SODIUM 141 mmol/L 06/18/2018 Comp. Metabolic Panel (14) 41109 POTASSIUM 4.3 mmol/L 06/18/2018 Comp. Metabolic Panel (14) 91590 CHLORIDE 103 mmol/L 06/18/2018 Comp. Metabolic Panel (14) 96720 CARBON DIOXIDE 23 mmol/L 06/18/2018 Comp. Metabolic Panel (14) 64606 CALCIUM 9.8 mg/dL 06/18/2018 Comp. Metabolic Panel (14) 50016 TOTAL PROTEIN 7.1 g/dL 06/18/2018 Comp. Metabolic Panel (14) 67455 ALBUMIN 5.2 g/dL 06/18/2018 Comp. Metabolic Panel (14) 12779 ALKALINE PHOSPHATASE 65 U/L 06/18/2018 Comp. Metabolic Panel (14) 19780 TOTAL BILIRUBIN 0.6 mg/dL 06/18/2018 Comp. Metabolic Panel (14) 54165 SGOT (AST) 21 U/L 06/18/2018 Comp. Metabolic Panel (14) 07991 SGPT (ALT) 24 U/L 06/18/2018 Comp. Metabolic Panel (14) 91139 eGFR (mL/min/1.73m2) 115 06/18/2018 Comp. Metabolic Panel (14) 09143 INTERPRETATION 06/18/2018 Cbc With Differential/Platelet 02907 WBC 4.55 thou/uL 8 Cbc With Differential/Platelet 07702 RBC 5.13 mil/uL 06/18/2018 Cbc With Differential/Platelet 61195 HEMOGLOBIN 14.4 g/dL 06/18/2018 Cbc With Differential/Platelet 73431 HEMATOCRIT 44.1 % 06/18/2018 Cbc With Differential/Platelet 13628 MCV 85.9 fL 06/18/2018 Cbc With Differential/Platelet 53859 MCH 28.1 pg 06/18/2018 Cbc With Differential/Platelet 86198 MCHC 32.7 g/dL 06/18/2018 Cbc With Differential/Platelet 64447 RDW-CV 13.4 % 06/18/2018 Cbc With Differential/Platelet 32717 PLATELET COUNT 287 thou/uL 06/18/2018 Cbc With Differential/Platelet 70762 NEUTROPHIL % 53.9 % 06/18/2018 Cbc With Differential/Platelet 44996 LYMPHOCYTE % 36.1 % 06/18/2018 Cbc With Differential/Platelet 83882 MONOCYTE % 7.4 % 06/18/2018 Cbc With Differential/Platelet 91367 EOS % 1.9 % 06/18/2018 Cbc With Differential/Platelet 19237 BASO % 0.8 % 06/18/2018 Cbc With Differential/Platelet 94120 NEUTROPHIL ABS # 2.45 thou/uL 06/18/2018 Cbc With Differential/Platelet 32295 LYMPH ABS # 1.64 thou/uL 06/18/2018 Cbc With Differential/Platelet 42796 MONOCYTE ABS # 0.34 thou/uL 06/18/2018 Cbc With Differential/Platelet 27625 EOS ABS # 0.09 thou/uL 8 Cbc With Differential/Platelet 10797 BASO ABS # 0.04 thou/uL 06/18/2018 Review of Systems System Result Effective Dates Constitutional recent illness 09/24/2018 Constitutional chills Constitutional [...] Result Effective Dates Notes Full Exam - ENT Constitutional general appearance [...] Procedure Codes Date THER/PROPH/DIAG INJ SC/IM CPT-4: 69306 09/28/2018 THER/PROPH/DIAG INJ SC/IM CPT-4: 26209 09/16/2018 THER/PROPH/DIAG INJ SC/IM CPT-4: 82865 09/02/2018 THER/PROPH/DIAG INJ SC/IM CPT-4: 92558 08/19/2018 IMMUNIZATION ADMIN CPT- 4: 27900 08/02/2018 FLU VAC NO PRSV 4 VA L 3 YRS+ CPT-4: 03373 08/02/2018 THER/PROPH/DIAG INJ SC/IM CPT-4: 13320 07/15/2018 THER/PROPH/DIAG INJ SC/IM CPT-4: 12464 06/17/2018 THER/PROPH/DIAG INJ SC/IM CPT-4: 30952 05/21/2018 THER/PROPH/DIAG INJ SC/IM CPT-4: 96701 08/03/2015 ROCEPHIN, PER 250 MG CPT-4: J0696 08/03/2015 Vital Signs Date Vital 09/24/2018 Blood Pressure 1: 140/82 Code: 8480-6 BMI: 36.0 Code: 90499-0 Heart Rate 1: 86 bpm Height: 5'7" SpO2: 98% Temperature: 37.1 (C ) / 98.7 (F) Weight: 230 lbs 08/16/2018 Blood Pressure 1: 148/82 Code: 8480-6 Blood Pressure 2: 157/92 Code: 8480-6 BMI: 35.9 Code: 81129-2 Heart Rate 1: 72 bpm Height: 5'7" SpO2: 96% Weight: 229 lbs 08/02/2018 Blood Pressure 1: 142/86 Code: 8480-6 BMI: 35.2 Code: 37333-8 Heart Rate 1: 101 bpm Height: 5'7" SpO2: 97% Weight: 225 lbs 05/31/2018 Blood Pressure 1: 134/82 Code: 8480-6 BMI: 35.4 Code: 40748-7 Heart Rate 1: 91 bpm Height: 5'7" SpO2: 96% Weight: 226 lbs 05/20/2018 Blood Pressure 1: 160/100 Code: 8480-6 BMI: 35.2 Code: 18703-8 Heart Rate 1: 89 bpm Height: 5'7" SpO2: 98% Weight: 225 lbs 05/10/2018 Blood Pressure 1: 124/70 Code: 8480-6 BMI: 35.1 Code: 74278-1 Heart Rate 1: 93 bpm Height: 5'7" SpO2: 99% Weight: 224 lbs 01/15/2018 Blood Pressure 1: 142/92 Code: 8480-6 BMI: 36.3 Code: 99236-4 Heart Rate 1: 77 bpm Height: 5'7" SpO2: 98% Weight: 232 lbs 12/15/2017 Blood Pressure 1: 156/98 Code: 8480-6 BMI: 36.2 Code: 91000-5 Heart Rate 1: 87 bpm Height: 5'7" SpO2: 97% Weight: 231 lbs Functional Status No Functional Status data History of Present Illness Symptom Name Status Resu lt Effective Date Notes sinus congestion Location frontal sinuses 09/24/2018 None [...] eye 01/15/2018 None vision change Quality ac [place] 01/15/2018 None vision change Quality lo ss [...] vision 12/15/2017 None vision change Quality ac [place] 12/15/2017 None vision change Onset and Resolution sudden in onset 12/15/2017 None vision change Onset of Symptom 3.5 weeks ago 12/15/2017 None vision change Limitation on Activities severely limits vision 12/15/2017 None vision change Triggers n o known associated factors 12/15/2017 None Advance Directives No Advance Directive data Encounters Encounter Performer Loca tion Codes Date EST. PATIENT, LEVEL III Diagnosis: Acute upper respiratory infection, unspecified[ICD10: J06.9] Diagnosis: Other allergic rhinitis[ICD10: J30.89] Sonia Gonzalez MD, [facility] CPT-4: 54722 09/24/2018 ([id number]) [id number] EST. 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 CPT-4: 16678 08/16/2018 ([id number]) 05054 EST. 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 CPT-4: 07789 08/02/2018 ([id number]) 78464 EST. P ATIENT, LEVEL IV Diagnosis: Essential (primary) hypertension[ICD10: I10] Diagnosis: Cervicalgia[ICD10: M54.2] Radha Gonzalez MD, [facility] CPT-4: 29902 05/31/2018 ([id number]) [id number] EST. 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 CPT-4: 69262 05/20/2018 [id number] EST. 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 CPT- 4: 76242 05/10/2018 ([id number]) [id number] EST. 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 CPT-4: 20553 12/15/2017 ([id number]) OFFICE/OUTPA TIENT VISIT NEW Diagnosis: Laceration of thumb[ICD9: 883.0] Radha Gonzalez MD, [facility] CPT-4: 22069 08/03/2015 Plan of Care Planned Activity Notes C odes Status Date Patient Education: Patient Medication Summary Completed 09/28/2018 [...] allergy spray. 09/24/2018 Appointment: Sonia Potter WPtel: [address] [place], [place] [id number] (15 min) Moderate 09/24/2018 Patient Education: Patient [...] at home. Multiple symptoms - referral to [facility] - appt in September 30, 2018. 08/16/2018 Appointment: [facility] [address] [facility] (15 min) Moderate 08/16/2018 Patient Education: [...] at home. Multiple symptoms - referral to [facility] - rashes, hypogonadism, optic neuritis - all points to possible autoimmune syndrome. Spinal stenosis - of thoracic region - pt to talk to Dr. Dunaway about referral to a different specialist for his mid- back. Hypogonadism - continue with testosterone. Flu shot given today in clinic. 08/02/2018 Appointment: [facility] Gonzalez [facility] [address] [facility] [place] (15 min) Moderate 08/02/2018 Patient Education: Patient Medication Summary Completed 08/02/2018 Care Plan: Referral Order SNOMED-CT : [id number] Pending 08/02/2018 Appointment: Injection 07/15/2018 Patient Education: [...] home. Cervical spine stenosis - [facility]. I have also recommended a Referral to Dr. Dunaway. I have called and talked to Dr. Dunaway - he looked at the pt's imaging and agrees that getting the pt in to be seen soon would be a preferred option. 05/31/2018 Appointment: Radha Gonzalez WPtel: [facility] [place] 2][address] [facility] [place] (15 min) Moderate 05/31/2018 Patient Education: Patient Medication Summary Completed 05/31/2018 Care Plan: Referral Order SNOMED-CT : [id number] Pending 05/31/2018 Care Plan: Referral Order SNOMED-CT : [id number] Pending 05/31/2018 Appointment: Injection 05/21/2018 Patient Education: Patient Medication Summary Completed 05/21/2018 Care Plan: Referral Order SNOMED-CT : [id number] Pending 05/21/2018 Visit Plan: Cervical and thoracic s tenosis with spinal cord compression -refer for appt with Dr Marr -rx for hydrocodone for pain-start gabapentin at bedtime Soft tissue lesion-left chest-schedule CTfor further evaluation HTN-elevated today-hold adderall-monitor blood pressure 05/20/2018 Appointment: [facility] Sim[facility] [phone] [facility] [place] [place] (15 min) Moderate 05/20/2018 Patient Education: [...] [phone] [place] [place] (15 min) Moderate 05/10/2018 Patient Education: Patient Medication Summary Completed 05/10/2018 Visit Plan: Sleep apnea - rx for cp ap - actually autopap was recommended and pt given rx today. HTN - referral to dr. kapoor - pt needs stress testing. 01/15/2018 App[facility]ment: [facility] [phone] [facility] [place] (15 min) Moderate 01/15/2018 Patient Education: Patient Medication Summary Completed 01/15/2018 Care Plan: Referral Order SNOMED-CT : [id number] Pending 01/15/2018 Visit Plan: Well Adult - [...] Appointment: Rad[facility] Gonzalez [facility] [phone] [facility] [place] New Patient 12/15/2017 Patient Education: Patient Medication Summary Completed 12/15/2017 Care Plan: CHEST X-RAY 2VW FRONTAL&LATL LOINC : 35832-8 Pending 12/15/2017 Appointment: Rad[facility] Gonzalez [facility]el[facility] [phone] [facility] [place] (15 min) Moderate 12/08/2017 Appointment: (S) [...] Ordering Provider 08/03 Referral info faxed to [facility]. Patient informed to be expecting a call from them with appt info Appointment Requested Referral: External, Ordering Provider Referral Appointment Requested Referral: External, Ordering Provider I called today; they will call him to schedule. Completed Referral: Armani Dunaway Referral Appointment Requested Referral: Mayte Kapoor Referral Appointment Requested Ref[facility] [phone] [facility] [facility] Appointment Requested Referral: External, [...] at home. Multiple symptoms - referral to [facility] - rashes, hypogonadism, optic neuritis [...] at home. Multiple symptoms - referral to [facility] - appt in September 30, [...] [facility]. I have also recommended a Referral to Dr. Dunaway. I have called and talked to Dr. Dunaway - he looked at the pt's imaging and agrees that getting the pt in to be seen soon would be a preferred option.
[2020-04-28 01:00] LABS: ALKALINE PHOSPHATASE 76 U/L (40-136)
--- OUTSIDE RECORDS SUMMARY | 2020-04-28 01:00 | XMS REPORT | CCD ---
Author Author Nilton Gonzalez Organization Radha Gonzalez MD, [facility] Address [address] [place] [address] Phone Care Team Providers Care Theatrical Trouper Name Role Phone PP Unavailable CCM Unavailable Summary Purpose Interface Exchange Insurance Providers Payer name Policy type / Coverage type Covered alliance party ID Effective Begin Date Effective End Date CORESOURCES Commercial Insurance [id number] 2017 Unknown Family history Brother Diagnosis Age At Onset Alcoholism Unknown Father Diagnosis Age At Onset Hypercholesterolemia Unknown Social History Social History Element Codes Description Effective Dates Marital status Unknown S chanda 12/15/2017 Number of children Unknown 1 12/15/2017 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[employer] 12/15/[address]: 240723908 Never smoker 12/15/[address]: 267821 Currently drinks alcohol <1 per week 12/15/2017 [...] 724.1 ICD-10: M54.6 05/10/2018 Active Encounter for [facility] adult medical examination with abnormal findings ICD-9: V70.0 ICD-10: Z00.01 12/15/2017 Active Laceration of thumb ICD- 9: 883.0 08/02/2015 Active Medications Medication Codes Instruc tions Start Date Stop Date Sta tus Fill Instructions gabapentin 300 mg ca psule RxNorm: 616100 1 Capsule(s) PO BID m ay take TID 10/19/2018 02/15/2019 Ac tive gabapentin 300 mg ca psule RxNorm: 480952 1 Capsule(s) PO BID m ay take TID 10/19/2018 10/18/2018 In active alprazolam 1 mg tablet RxNorm: 148229 1 Tablet(s) PO TID as needed 10/15/2018 12/13/2018 Active testosterone cypiona te 200 mg/mL intramuscular oil RxNorm: 601619 Milliliter(s) IM 09/28/2018 09/28/2018 In active pravastatin 40 mg ta blet RxNorm: 448434 TAKE ONE TABLET BY MO UTH EVERY NIGHT AT BEDTIME 09/27/2018 09/21/2019 Active Tamiflu 75 mg capsule RxNorm: 275203 1 Capsule(s) PO BID 09/24/2018 09/28/2018 Inactive Adderall 30 mg tablet RxNorm: 414337 2 Tablet(s) PO daily 09/20/2018 10/19/2018 Inactive hydrocodone 5 mg-fanny taminophen 325 mg tablet RxNorm: 449383 1 Tablet(s) PO TID [place] N 09/20/2018 No Stop Date Active testosterone cypiona te 200 mg/mL intramuscular oil RxNorm: 762118 Milliliter(s) IM 09/16/2018 09/16/2018 In active testosterone cypiona te 200 mg/mL intramuscular oil RxNorm: 466451 1 Milliliter(s) IM 09/02/2018 09/02/2018 Inactive testosterone cypiona te 200 mg/mL intramuscular oil RxNorm: 411322 Milliliter(s) IM 08/19/2018 08/19/2018 In active tramadol 50 mg tablet RxNorm: 940344 1-2 Tablet(s) PO Q6 as needed 08/18/2018 No Stop Date Active Adderall 30 mg tablet RxNorm: 797437 2 Tablet(s) PO daily 08/18/2018 09/16/2018 Inactive Dexilant 60 mg capsu le, delayed release RxNorm: 202983 1 Capsule(s) PO BID 08/17/2018 08/11/2019 Ac tive atenolol 50 mg tablet RxNorm: 565554 1 Tablet(s) PO BID 08/17/2018 08/11/2019 Active Zorvolex 35 mg capsule RxNorm: 1881050 1 Capsule(s) PO TID as needed for pain 08/17/2018 02/12/2019 Ac tive ketoconazole 2 % top ical cream RxNorm: 418598 1 Gram(s) TOP BID 08/17/2018 08/26/2018 Inactive Zorvolex 35 mg capsule RxNorm: 3786214 1 Capsule(s) PO TID as needed for pain 08/17/2018 08/16/2018 In active ketoconazole 2 % top ical cream RxNorm: 817983 1 Gram(s) TOP BID 08/02/2018 08/11/2018 Inactive hydrocortisone 2.5 % topical cream RxNorm: 416017 1 Application TOP BID 07/21/2018 No Stop Date Active Adderall 30 mg tablet RxNorm: 861228 2 Tablet(s) PO daily 07/20/2018 08/17/2018 Inactive testosterone cypiona te 200 mg/mL intramuscular oil RxNorm: 532349 Milliliter(s) IM 07/15/2018 07/15/2018 In active alprazolam 1 mg tablet RxNorm: 640150 1 Tablet(s) PO TID as needed 07/12/2018 09/07/2018 Inactive hydrocodone 5 mg-fanny taminophen 325 mg tablet RxNorm: 256336 1 Tablet(s) PO TID [place] N 06/30/2018 09/19/2018 In active pravastatin 40 mg ta blet RxNorm: 573548 1 Tablet(s) PO QHS 06/18/2018 09/15/2018 Inactive Adderall 30 mg tablet RxNorm: 526085 2 Tablet(s) PO daily 06/18/2018 07/17/2018 Inactive testosterone cypiona te 200 mg/mL intramuscular oil RxNorm: 957872 Milliliter(s) IM 06/17/2018 06/17/2018 In active Voltaren 1 % topical gel RxNorm: 372915 APPLY TOPICALLY TWO T IMES A DAY 06/16/2018 07/21/2018 In active Vitamin D2 50,000 un it capsule RxNorm: 8823302 1 Capsule(s) PO QW 05/21/2018 No Stop Date Active Adderall 30 mg tablet RxNorm: 258172 2 Tablet(s) PO daily 05/21/2018 06/17/2018 Inactive testosterone cypiona te 200 mg/mL intramuscular oil RxNorm: 381728 Milliliter(s) IM 05/21/2018 05/21/2018 In active testosterone cypiona te 200 mg/mL intramuscular oil RxNorm: 659343 1 Milliliter(s) IM monthly 05/20/2018 09/16/2018 Inactive testosterone cypiona te 200 mg/mL intramuscular oil RxNorm: 531490 1 Milliliter(s) IM monthly 05/20/2018 05/19/2018 Inactive hydrocodone 5 mg-fanny taminophen 325 mg tablet RxNorm: 305113 1 Tablet(s) PO TID [place] N 05/20/2018 06/29/2018 In active Vitamin D2 50,000 un it capsule RxNorm: 7317498 1 Capsule(s) PO QW 05/18/2018 05/20/2018 Inactive triamcinolone aceton destin 0.025 % topical cream RxNorm: 0358744 1 Application TOP BI D 05/13/2018 No Stop Date Active Dexilant 60 mg capsu le, delayed release RxNorm: 860251 1 Capsule(s) PO BID 05/13/2018 08/16/2018 In active Zorvolex 35 mg capsule RxNorm: 4555182 1 Capsule(s) PO TID as needed for pain 05/12/2018 08/09/2018 In active Voltaren 1 % topical gel RxNorm: 357657 1 Application TOP BID 05/12/2018 06/15/2018 Inactive Singulair 10 mg tablet RxNorm: 850624 1 Tablet(s) PO daily 05/10/2018 08/07/2018 Inactive acyclovir 400 mg tablet RxNorm: 971695 1 Tablet(s) PO TID as needed take at ons et of symptoms of cold sores x 5 days 05/10/2018 No Stop Date Active paroxetine 20 mg tablet RxNorm: 1565605 2 Tablet(s) PO QHS 05/10/2018 10/31/2019 Active ProAir HFA 90 mcg/ac tuation aerosol inhaler RxNorm: 871484 1 Puff(s) INH QID as needed 05/10/2018 No Stop Date Active trazodone 100 mg tablet RxNorm: 688503 1 Tablet(s) PO QHS 05/10/2018 11/05/2018 Active baclofen 20 mg tablet RxNorm: 822905 1 Tablet(s) PO TID as needed muscle spas ms 05/10/2018 06/08/2018 In active atenolol 50 mg tablet RxNorm: 653702 1 Tablet(s) PO BID 05/10/2018 08/07/2018 Inactive triamcinolone aceton destin 0.025 % topical cream RxNorm: 2553707 1 Application TOP BI D 05/10/2018 05/12/2018 In active tramadol 50 mg tablet RxNorm: 623108 1 Tablet(s) PO TID as needed 05/10/2018 05/19/2018 Inactive Dexilant 60 mg capsu le, delayed release RxNorm: 256238 1 Capsule(s) PO daily 05/10/2018 05/12/2018 In active alprazolam 1 mg tablet RxNorm: 999115 1 Tablet(s) PO TID as needed 05/10/2018 08/06/2018 Inactive cyclobenzaprine 10 m g tablet RxNorm: 096833 1 Tablet(s) PO TID as needed muscle spasms 05/07/2018 07/12/2018 Inactive trazodone 100 mg tablet RxNorm: 839108 1 Tablet(s) PO QHS 05/07/2018 05/09/2018 Inactive Adderall 30 mg tablet RxNorm: 959299 2 Tablet(s) PO daily 04/19/2018 05/18/2018 Inactive alprazolam 1 mg tablet RxNorm: 028849 1 Tablet(s) PO BID 04/19/2018 05/09/2018 Inactive Adderall 30 mg tablet RxNorm: 344105 2 Tablet(s) PO daily 03/26/2018 04/18/2018 Inactive paroxetine 20 mg tablet RxNorm: 6345898 2 Tablet(s) PO QHS 03/15/2018 05/09/2018 Inactive Adderall 30 mg tablet RxNorm: 387429 2 Tablet(s) PO daily 02/25/2018 03/25/2018 Inactive cyclobenzaprine 10 m g tablet RxNorm: 408732 1 Tablet(s) PO TID as needed muscle spasms 02/22/2018 05/06/2018 Inactive tramadol 50 mg tablet RxNorm: 937091 1 Tablet(s) PO TID as needed 02/22/2018 03/07/2018 Inactive tramadol 50 mg tablet RxNorm: 657109 1 Tablet(s) PO TID as needed 02/22/2018 02/21/2018 Inactive trazodone 100 mg tablet RxNorm: 258340 1 Tablet(s) PO QHS 02/03/2018 05/03/2018 Inactive trazodone 100 mg tablet RxNorm: 522443 1 Tablet(s) PO QHS 02/03/2018 02/02/2018 Inactive Adderall 30 mg tablet RxNorm: 939990 2 Tablet(s) PO daily 01/27/2018 02/18/2018 Inactive acyclovir 400 mg tablet RxNorm: 527785 1 Tablet(s) PO TID as needed take at ons et of symptoms of cold sores x 5 days 01/15/2018 05/09/2018 Inactive Bactrim DS 800 mg-16 0 mg tablet RxNorm: 332532 1 Tablet(s) PO BID 01/11/2018 01/17/2018 Inactive Bactrim DS 800 mg-16 0 mg tablet RxNorm: 504262 1 Tablet(s) PO BID 01/11/2018 01/10/2018 Inactive Dexilant 60 mg capsu le, delayed release RxNorm: 680221 1 Capsule(s) PO daily 12/23/2017 05/09/2018 In active Dexilant 60 mg capsu le, delayed release RxNorm: 229745 1 Capsule(s) PO daily 12/23/2017 12/22/2017 In active atenolol 50 mg tablet RxNorm: 943014 1 Tablet(s) PO BID 12/15/2017 05/09/2018 Inactive alprazolam 1 mg tablet RxNorm: 773783 1-1.5 Tablet(s) PO daily 12/15/2017 04/18/2018 Inactive ceftriaxone 500 mg s olution for injection RxNorm: 3581028 Inj 08/03/2015 08/03/2015 Inactive paroxetine 20 mg tablet RxNorm: 9815813 2 Tablet(s) PO QHS 08/01/2015 10/29/2015 Inactive pravastatin 40 mg ta blet RxNorm: 366158 1/2 Tablet(s) PO QHS 08/01/2015 12/14/2017 Inactive Trazadone 100mg 100 mg RxNorm: 1 PO daily 08/01/2015 11/27/2015 Inactive Trazadone 100mg 100 mg RxNorm: 1 PO daily 08/01/2015 05/04/2018 Inactive atenolol 50 mg tablet RxNorm: 970203 1 Tablet(s) PO daily 08/01/2015 10/29/2015 Inactive ibuprofen 800 mg tablet RxNorm: 354372 1 Tablet(s) PO BID -TID No Start Date Active Zyrtec 10 mg tablet RxNorm: 3009163 1 Tablet(s) PO daily No Start Date Active pravastatin 40 mg ta blet RxNorm: 605867 1/2 Tablet(s) PO QHS No Start Date 07/31/2015 Inactive Benadryl Allergy 25 mg tablet RxNorm: 3419693 1 Tablet(s) PO daily No Start Date 07/19/2018 Inactive Adderall 30 mg tablet RxNorm: 795189 2 Tablet(s) PO daily No Start Date 01/26/2018 Inactive Aspirin Low Dose 81 mg tablet,delayed release RxNorm: 176373 1 Tablet(s) PO BID No Start Date 07/19/2018 Inactive Singulair 10 mg tablet RxNorm: 577816 1 Tablet(s) PO daily No Start Date 05/09/2018 Inactive cyclobenzaprine 10 m g tablet RxNorm: 492492 1 Tablet(s) PO TID as needed muscle spasms No Start Date 02/21/2018 Inactive Trazadone 100mg 100 mg RxNorm: 1 PO daily No Start Date 07/31/2015 Inactive hydrocortisone 2.5 % topical cream RxNorm: 215245 1 Application TOP BID No Start Date 07/20/2018 Inactive alprazolam 1 mg tablet RxNorm: 932073 2 Tablet(s) PO daily No Start Date 12/14/2017 Inactive tramadol 50 mg tablet RxNorm: 470242 1-2 Tablet(s) PO Q6 as needed No Start Date 08/17/2018 Inactive Vitamin D2 50,000 un it capsule RxNorm: 8210642 1 Capsule(s) PO QW No Start Date 05/17/2018 Inactive pantoprazole 40 mg t ablet,delayed release RxNorm: 862742 1 Tablet(s) PO BID No Start Date 12/22/2017 Inactive atenolol 50 mg tablet RxNorm: 708609 1 Tablet(s) PO daily No Start Date 07/31/2015 Inactive paroxetine 20 mg tablet RxNorm: 947188 2 Tablet(s) PO QHS No Start Date 07/31/2015 Inactive Medication Administered Medication Codes Instruc tions Start Date Status testosterone cypionate 200 mg/mL intramuscular oil RxNorm: 870515 Milliliter 09/28/2018 No longer Active testosterone cypionate 200 mg/mL intramuscular oil RxNorm: 686443 Milliliter 09/16/2018 No longer Active testosterone cypionate 200 mg/mL intramuscular oil RxNorm: 160898 1Milliliter 09/02/2018 No longer Active testosterone cypionate 200 mg/mL intramuscular oil RxNorm: 561349 Milliliter 08/19/2018 No longer Active testosterone cypionate 200 mg/mL intramuscular oil RxNorm: 849863 Milliliter 07/15/2018 No longer Active testosterone cypionate 200 mg/mL intramuscular oil RxNorm: 308296 Milliliter 06/17/2018 No longer Active testosterone cypionate 200 mg/mL intramuscular oil RxNorm: 463824 Milliliter 05/21/2018 No longer Active ceftriaxone 500 mg solution for injection RxNorm: 3884192 08/03/2015 No longer A ctive Immunizations Vaccine [...] Item Item Code Result Date Testosterone Serum 669918 TESTOSTERONE 44.1 ng/dL 08/18/2018 Hemoglobin 404968 WBC 7.62 thou/uL 08/17/2018 Hemoglobin 002444 RBC 5.23 mil/uL 08/17/2018 Hemoglobin 907888 HEMOGL OBIN 15.0 g/dL 08/17/2018 Hemoglobin 250711 HEMATO CRIT 45.0 % 08/17/2018 Hemoglobin 044507 MCV 86.0 fL 08/17/2018 Hemoglobin 883021 MCH 28.7 pg 08/17/2018 Hemoglobin 657223 MCHC 33.3 g/dL 08/17/2018 Hemoglobin 327116 RDW-CV 12.9 % 08/17/2018 Hemoglobin 953764 PLATEL ET COUNT 313 thou/uL 08/17/2018 Hematocrit 085473 WBC 7.62 thou/uL 08/17/2018 Hematocrit 692299 RBC 5.23 mil/uL 08/17/2018 Hematocrit 515716 HEMOGL OBIN 15.0 g/dL 08/17/2018 Hematocrit 660391 HEMATO CRIT 45.0 % 08/17/2018 Hematocrit 317979 MCV 86.0 fL 08/17/2018 Hematocrit 482920 MCH 28.7 pg 08/17/2018 Hematocrit 561172 MCHC 33.3 g/dL 08/17/2018 Hematocrit 493527 RDW-CV 12.9 % 08/17/2018 Hematocrit 175112 PLATEL ET COUNT 313 thou/uL 08/17/2018 Culture Mrsa 491258 MRSA CULTURE SEE NOTES 06/21/2018 Comp. Metabolic Panel (14) 62601 GLUCOSE 101 mg/dL 06/18/2018 Comp. Metabolic Panel (14) 48843 BUN 18 mg/dL 06/18/2018 Comp. Metabolic Panel (14) 48307 CREATININE 0.99 mg/dL 06/18/2018 Comp. Metabolic Panel (14) 65835 SODIUM 141 mmol/L 06/18/2018 Comp. Metabolic Panel (14) 73047 POTASSIUM 4.3 mmol/L 06/18/2018 Comp. Metabolic Panel (14) 94990 CHLORIDE 103 mmol/L 06/18/2018 Comp. Metabolic Panel (14) 07740 CARBON DIOXIDE 23 mmol/L 06/18/2018 Comp. Metabolic Panel (14) 02612 CALCIUM 9.8 mg/dL 06/18/2018 Comp. Metabolic Panel (14) 85037 TOTAL PROTEIN 7.1 g/dL 06/18/2018 Comp. Metabolic Panel (14) 79513 ALBUMIN 5.2 g/dL 06/18/2018 Comp. Metabolic Panel (14) 37239 ALKALINE PHOSPHATASE 65 U/L 06/18/2018 Comp. Metabolic Panel (14) 94206 TOTAL BILIRUBIN 0.6 mg/dL 06/18/2018 Comp. Metabolic Panel (14) 88365 SGOT (AST) 21 U/L 06/18/2018 Comp. Metabolic Panel (14) 55158 SGPT (ALT) 24 U/L 06/18/2018 Comp. Metabolic Panel (14) 17275 eGFR (mL/min/1.73m2) 115 06/18/2018 Comp. Metabolic Panel (14) 15509 INTERPRETATION 06/18/2018 Cbc With Differential/Platelet 54969 WBC 4.55 thou/uL 8 Cbc With Differential/Platelet 92487 RBC 5.13 mil/uL 06/18/2018 Cbc With Differential/Platelet 85092 HEMOGLOBIN 14.4 g/dL 06/18/2018 Cbc With Differential/Platelet 31020 HEMATOCRIT 44.1 % 06/18/2018 Cbc With Differential/Platelet 55720 MCV 85.9 fL 06/18/2018 Cbc With Differential/Platelet 57145 MCH 28.1 pg 06/18/2018 Cbc With Differential/Platelet 66507 MCHC 32.7 g/dL 06/18/2018 Cbc With Differential/Platelet 70995 RDW-CV 13.4 % 06/18/2018 Cbc With Differential/Platelet 96608 PLATELET COUNT 287 thou/uL 06/18/2018 Cbc With Differential/Platelet 23193 NEUTROPHIL % 53.9 % 06/18/2018 Cbc With Differential/Platelet 50601 LYMPHOCYTE % 36.1 % 06/18/2018 Cbc With Differential/Platelet 35964 MONOCYTE % 7.4 % 06/18/2018 Cbc With Differential/Platelet 15572 EOS % 1.9 % 06/18/2018 Cbc With Differential/Platelet 81324 BASO % 0.8 % 06/18/2018 Cbc With Differential/Platelet 48854 NEUTROPHIL ABS # 2.45 thou/uL 06/18/2018 Cbc With Differential/Platelet 28193 LYMPH ABS # 1.64 thou/uL 06/18/2018 Cbc With Differential/Platelet 55258 MONOCYTE ABS # 0.34 thou/uL 06/18/2018 Cbc With Differential/Platelet 65790 EOS ABS # 0.09 thou/uL 8 Cbc With Differential/Platelet 94126 BASO ABS # 0.04 thou/uL 06/18/2018 Review [...] time 09/24/2018 None Full Exam - General [facility] Constitutional general appearance Overall: well developed 08/16/2018 [...] Procedure Codes Date THER/PROPH/DIAG INJ SC/IM CPT-4: 08595 09/28/2018 THER/PROPH/DIAG INJ SC/IM CPT-4: 06420 09/16/2018 THER/PROPH/DIAG INJ SC/IM CPT-4: 80029 09/02/2018 THER/PROPH/DIAG INJ SC/IM CPT-4: 34395 08/19/2018 IMMUNIZATION ADMIN CPT- 4: 95653 08/02/2018 FLU VAC NO PRSV 4 VA L 3 YRS+ CPT-4: 84720 08/02/2018 THER/PROPH/DIAG INJ SC/IM CPT-4: 64209 07/15/2018 THER/PROPH/DIAG INJ SC/IM CPT-4: 42112 06/17/2018 THER/PROPH/DIAG INJ SC/IM CPT-4: 98649 05/21/2018 THER/PROPH/DIAG INJ SC/IM CPT-4: 83509 08/03/2015 ROCEPHIN, PER 250 MG CPT-4: J0696 08/03/2015 Vital Signs Date Vital 09/24/2018 Blood Pressure 1: 140/82 Code: 8480-6 BMI: 36.0 Code: 25116-2 Heart Rate 1: 86 bpm Height: 5'7" SpO2: 98% Temperature: 37.1 (C ) / 98.7 (F) Weight: 230 lbs 08/16/2018 Blood Pressure 1: 148/82 Code: 8480-6 Blood Pressure 2: 157/92 Code: 8480-6 BMI: 35.9 Code: 23355-0 Heart Rate 1: 72 bpm Height: 5'7" SpO2: 96% Weight: 229 lbs 08/02/2018 Blood Pressure 1: 142/86 Code: 8480-6 BMI: 35.2 Code: 06125-0 Heart Rate 1: 101 bpm Height: 5'7" SpO2: 97% Weight: 225 lbs 05/31/2018 Blood Pressure 1: 134/82 Code: 8480-6 BMI: 35.4 Code: 20937-8 Heart Rate 1: 91 bpm Height: 5'7" SpO2: 96% Weight: 226 lbs 05/20/2018 Blood Pressure 1: 160/100 Code: 8480-6 BMI: 35.2 Code: 69630-1 Heart Rate 1: 89 bpm Height: 5'7" SpO2: 98% Weight: 225 lbs 05/10/2018 Blood Pressure 1: 124/70 Code: 8480-6 BMI: 35.1 Code: 33726-5 Heart Rate 1: 93 bpm Height: 5'7" SpO2: 99% Weight: 224 lbs 01/15/2018 Blood Pressure 1: 142/92 Code: 8480-6 BMI: 36.3 Code: 86946-2 Heart Rate 1: 77 bpm Height: 5'7" SpO2: 98% Weight: 232 lbs 12/15/2017 Blood Pressure 1: 156/98 Code: 8480-6 BMI: 36.2 Code: 36275-8 Heart Rate 1: 87 bpm Height: 5'7" [...] eye 01/15/2018 None vision change Quality ac mcgrath 01/15/2018 None vision change Quality lo ss [...] vision 12/15/2017 None vision change Quality ac mcgrath 12/15/2017 None vision change Onset and Resolution sudden in onset 12/15/2017 None vision change Onset of Symptom 3.5 weeks ago 12/15/2017 None vision change Limitation on Activities severely limits vision 12/15/2017 None vision change Triggers n o known associated factors 12/15/2017 None Advance Directives No Advance Directive data Encounters Encounter Performer Loca tion Codes Date 83954 EST. PATIENT, LEVEL III Diagnosis: Acute upper respiratory infection, unspecified[ICD10: J06.9] Diagnosis: Other allergic rhinitis[ICD10: J30.89] Sonia Gonzalez MD, [facility] CPT-4: 88608 09/24/2018 ([id number]) 31078 EST. 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 CPT-4: 23984 08/16/2018 ([id number]) 96807 EST. 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 CPT-4: 67631 08/02/2018 ([id number]) 81109 EST. P ATIENT, LEVEL IV Diagnosis: Essential (primary) hypertension[ICD10: I10] Diagnosis: Cervicalgia[ICD10: M54.2] Radha Gonzalez MD, [facility] CPT-4: 69144 05/31/2018 ([id number]) 37717 EST. 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 CPT-4: 80388 05/20/2018 53853 EST. 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 09/24/2018 Appointment: Sonia Potter WPtel: [address] [place], [place] [id number] (15 min) Moderate 09/24/2018 Patient Education: Patient [...] Multiple symptoms - referral to [facility] - appt in September 30, 2018. 08/16/2018 Appointment: Radha Gonzalez WPtel: [facility] (15 min) Moderate 08/16/2018 Patient Education: Patient [...] Multiple symptoms - referral to [facility] - rashes, hypogonadism, optic neuritis - all points to possible autoimmune syndrome. Spinal stenosis - of thoracic region - pt to talk to Dr. Dunaway about referral to a different specialist for his mid- back. Hypogonadism - continue with testosterone. Flu shot given today in clinic. 08/02/2018 [facility] [address] [facility] ([facility] min) Moderate 08/02/2018 Patient Education: Patient Medication Summary Completed 08/02/2018 Care Plan: Referral Order SNOMED-CT : 889474419 Pending 08/02/2018 Appointment: Injection 07/15/2018 Patient Education: [...] preferred option. 05/31/2018 Appointment: Radha Gonzalez WPtel: [facility] (15 min) Moderate 05/31/2018 Patient Education: Patient Medication Summary Completed 05/31/2018 Care Plan: Referral Order SNOMED-CT : 995560430 Pending 05/31/2018 Care Plan: Referral Order SNOMED-CT : 236911827 Pending 05/31/2018 Appointment: Injection 05/21/2018 Patient Education: Patient Medication Summary Completed 05/21/2018 Care Plan: Referral Order SNOMED-CT : 014705215 Pending 05/21/2018 Visit Plan: Cervical and thoracic s tenosis with spinal cord compression -refer for appt with Dr Marr -rx for hydrocodone for pain-start gabapentin at bedtime Soft tissue lesion-left chest-schedule CTfor further evaluation HTN-elevated today-hold adderall-monitor blood pressure 05/20/2018 Appointment: Hannah Simons WPtel: [phone] [place] (15 min) Moderate 05/20/2018 [...] this. 05/10/2018 Appointment: Sonia Potter WPtel: [address] [facility] [place] (15 min) Moderate 05/10/2018 Patient Education: Patient Medication Summary Completed 05/10/2018 Visit Plan: Sleep apnea - rx for cp ap - actually autopap was recommended and pt given rx today. HTN - referral to dr. kapoor - pt needs stress testing. 01/15/2018 Appointment: Radha Gonzalez WPtel[facility] (15 min) Moderate 01/15/2018 Patient Education: Patient Medication Summary Completed 01/15/2018 Care Plan: Referral Order SNOMED-CT : 798256503 Pending 01/15/2018 Visit Plan: Well Adult - [...] one month. 12/15/2017 Appointment: Radha Gonzalez WPtel: [address] [place], [place] [phone] [place] New Patient 12/15/2017 Patient Education: Patient Medication Summary Completed 12/15/2017 Care Plan: CHEST X-RAY 2VW FRONTAL&LATL LOINC : 93576-2 Pending 12/15/2017 Appointment: Radha Gonzalez WPtel: [facility] (15 min) Moderate 12/08/2017 Appointment: (S) New Patient 08/13/2015 Visit Plan: steri strip placed on t humb of right hand - antibiotic shot given to patient and rx for keflex 500mg qid x 10 days given to the patient to fill prior to his trip to [place] 08/03/2015 Patient Education: Patient Medication Summary Completed 08/03/2015 Referral: External, Ordering Provider 08/03 Referral info faxed to [facility]. Patient informed to be expecting a call from them with appt info Appointment Requested Referral: External, Ordering Provider Referral Appointment Requested Referral: External, Ordering Provider I called today; they will call him to schedule. Completed Referral: Armani Dunaway Referral Appointment Requested Referral: Mayte Kapoor Referral Appointment Requested Referral[facility] [address] [facility] Referral Appointment Requested Referral: External, Ordering [...] Multiple symptoms - referral to [facility] - rashes, hypogonadism, optic neuritis - all [...] Multiple symptoms - referral to [facility] - appt in September 30, 2018. . steri strip placed on thumb of right hand - antibiotic shot given to patient and rx for keflex 500mg qid x 10 days given to the patient to fill prior to his trip to [place] will refill meds for 90 days Will [...]
[2020-04-28 01:01] LABS: CREATININE SERUM 1.38 MG/DL (0.60-1.30); GFR ESTIMATED 55
--- OUTSIDE RECORDS SUMMARY | 2020-04-28 01:01 | XMS REPORT | CCD ---
Author Author Nilton Gonzalez Organization Radha Gonzalez MD, [facility] Address [address] [place] [address] Phone Care Team Providers Care Layout Former Name Role Phone PP Unavailable CCM Unavailable Summary Purpose Interface Exchange Insurance Providers Payer name Policy type / Coverage type Covered republican ID Effective Begin Date Effective End Date CORESOURCES Commercial Insurance [id number] 2017 Unknown Family history Brother Diagnosis Age At Onset Alcoholism Unknown Father Diagnosis Age At Onset Hypercholesterolemia Unknown Social History Social History Element Codes Description Effective Dates Marital status Unknown S chanda 12/15/2017 Number of children Unknown 1 12/15/2017 Employment 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 [employer] 12/15/[address]: 364766431 Never smoker 12/15/[address]: 422899 Currently drinks alcohol <1 per week 12/15/2017 [...] 724.1 ICD-10: M54.6 05/10/2018 Active Encounter for [facility] adult medical examination with abnormal findings ICD-9: V70.0 ICD-10: Z00.01 12/15/2017 Active Laceration of thumb ICD- 9: 883.0 08/02/2015 Active Medications Medication Codes Instruc tions Start Date Stop Date Sta tus Fill Instructions alprazolam 1 mg tablet RxNorm: 021230 1 Tablet(s) PO TID as needed 10/15/2018 12/13/2018 Active testosterone cypiona te 200 mg/mL intramuscular oil RxNorm: 397049 Milliliter(s) IM 09/28/2018 09/28/2018 In active pravastatin 40 mg ta blet RxNorm: 623138 TAKE ONE TABLET BY [facility] EVERY NIGHT AT BEDTIME 09/27/2018 09/21/2019 Active Tamiflu 75 mg capsule RxNorm: 425838 1 Capsule(s) PO BID 09/24/2018 09/28/2018 Inactive Adderall 30 mg tablet RxNorm: 222657 2 Tablet(s) PO daily 09/20/2018 10/19/2018 Active hydrocodone 5 mg-fanny taminophen 325 mg tablet RxNorm: 528650 1 Tablet(s) PO TID AR N 09/20/2018 No Stop Date Active testosterone cypiona te 200 mg/mL intramuscular oil RxNorm: 895596 Milliliter(s) IM 09/16/2018 09/16/2018 In active testosterone cypiona te 200 mg/mL intramuscular oil RxNorm: 602389 1 Milliliter(s) IM 09/02/2018 09/02/2018 Inactive testosterone cypiona te 200 mg/mL intramuscular oil RxNorm: 636431 Milliliter(s) IM 08/19/2018 08/19/2018 In active tramadol 50 mg tablet RxNorm: 003414 1-2 Tablet(s) PO Q6 as needed 08/18/2018 No Stop Date Active Adderall 30 mg tablet RxNorm: 227297 2 Tablet(s) PO daily 08/18/2018 09/16/2018 Inactive Dexilant 60 mg capsu le, delayed release RxNorm: 489180 1 Capsule(s) PO BID 08/17/2018 08/11/2019 Ac tive atenolol 50 mg tablet RxNorm: 466391 1 Tablet(s) PO BID 08/17/2018 08/11/2019 Active Zorvolex 35 mg capsule RxNorm: 7813373 1 Capsule(s) PO TID as needed for pain 08/17/2018 02/12/2019 Ac tive ketoconazole 2 % top ical cream RxNorm: 166466 1 Gram(s) TOP BID 08/17/2018 08/26/2018 Inactive Zorvolex 35 mg capsule RxNorm: 7759941 1 Capsule(s) PO TID as needed for pain 08/17/2018 08/16/2018 In active ketoconazole 2 % top ical cream RxNorm: 680037 1 Gram(s) TOP BID 08/02/2018 08/11/2018 Inactive hydrocortisone 2.5 % topical cream RxNorm: 368765 1 Application TOP BID 07/21/2018 No Stop Date Active Adderall 30 mg tablet RxNorm: 984469 2 Tablet(s) PO daily 07/20/2018 08/17/2018 Inactive testosterone cypiona te 200 mg/mL intramuscular oil RxNorm: 546334 Milliliter(s) IM 07/15/2018 07/15/2018 In active alprazolam 1 mg tablet RxNorm: 501668 1 Tablet(s) PO TID as needed 07/12/2018 09/07/2018 Inactive hydrocodone 5 mg-fanny taminophen 325 mg tablet RxNorm: 425467 1 Tablet(s) PO TID AR N 06/30/2018 09/19/2018 In active pravastatin 40 mg ta blet RxNorm: 629039 1 Tablet(s) PO QHS 06/18/2018 09/15/2018 Inactive Adderall 30 mg tablet RxNorm: 560677 2 Tablet(s) PO daily 06/18/2018 07/17/2018 Inactive testosterone cypiona te 200 mg/mL intramuscular oil RxNorm: 928530 Milliliter(s) IM 06/17/2018 06/17/2018 In active Voltaren 1 % topical gel RxNorm: 106957 APPLY TOPICALLY TWO T IMES A DAY 06/16/2018 07/21/2018 In active Vitamin D2 50,000 un it capsule RxNorm: 4361538 1 Capsule(s) PO QW 05/21/2018 No Stop Date Active Adderall 30 mg tablet RxNorm: 534340 2 Tablet(s) PO daily 05/21/2018 06/17/2018 Inactive testosterone cypiona te 200 mg/mL intramuscular oil RxNorm: 726975 Milliliter(s) IM 05/21/2018 05/21/2018 In active testosterone cypiona te 200 mg/mL intramuscular oil RxNorm: 681762 1 Milliliter(s) IM monthly 05/20/2018 09/16/2018 Inactive testosterone cypiona te 200 mg/mL intramuscular oil RxNorm: 607712 1 Milliliter(s) IM monthly 05/20/2018 05/19/2018 Inactive hydrocodone 5 mg-fanny taminophen 325 mg tablet RxNorm: 696790 1 Tablet(s) PO TID AR N 05/20/2018 06/29/2018 In active Vitamin D2 50,000 un it capsule RxNorm: 3284342 1 Capsule(s) PO QW 05/18/2018 05/20/2018 Inactive triamcinolone aceton destin 0.025 % topical cream RxNorm: 2726911 1 Application TOP BI D 05/13/2018 No Stop Date Active Dexilant 60 mg capsu le, delayed release RxNorm: 601758 1 Capsule(s) PO BID 05/13/2018 08/16/2018 In active Zorvolex 35 mg capsule RxNorm: 4410264 1 Capsule(s) PO TID as needed for pain 05/12/2018 08/09/2018 In active Voltaren 1 % topical gel RxNorm: 312042 1 Application TOP BID 05/12/2018 06/15/2018 Inactive Singulair 10 mg tablet RxNorm: 152815 1 Tablet(s) PO daily 05/10/2018 08/07/2018 Inactive acyclovir 400 mg tablet RxNorm: 575611 1 Tablet(s) PO TID as needed take at ons et of symptoms of cold sores x 5 days 05/10/2018 No Stop Date Active paroxetine 20 mg tablet RxNorm: 2704830 2 Tablet(s) PO QHS 05/10/2018 10/31/2019 Active ProAir HFA 90 mcg/ac tuation aerosol inhaler RxNorm: 715770 1 Puff(s) INH QID as needed 05/10/2018 No Stop Date Active trazodone 100 mg tablet RxNorm: 678034 1 Tablet(s) PO QHS 05/10/2018 11/05/2018 Active baclofen 20 mg tablet RxNorm: 875944 1 Tablet(s) PO TID as needed muscle spas ms 05/10/2018 06/08/2018 In active atenolol 50 mg tablet RxNorm: 097036 1 Tablet(s) PO BID 05/10/2018 08/07/2018 Inactive triamcinolone aceton destin 0.025 % topical cream RxNorm: 5960929 1 Application TOP BI D 05/10/2018 05/12/2018 In active tramadol 50 mg tablet RxNorm: 506795 1 Tablet(s) PO TID as needed 05/10/2018 05/19/2018 Inactive Dexilant 60 mg capsu le, delayed release RxNorm: 586612 1 Capsule(s) PO daily 05/10/2018 05/12/2018 In active alprazolam 1 mg tablet RxNorm: 365673 1 Tablet(s) PO TID as needed 05/10/2018 08/06/2018 Inactive cyclobenzaprine 10 m g tablet RxNorm: 273028 1 Tablet(s) PO TID as needed muscle spasms 05/07/2018 07/12/2018 Inactive trazodone 100 mg tablet RxNorm: 701861 1 Tablet(s) PO QHS 05/07/2018 05/09/2018 Inactive Adderall 30 mg tablet RxNorm: 796092 2 Tablet(s) PO daily 04/19/2018 05/18/2018 Inactive alprazolam 1 mg tablet RxNorm: 813065 1 Tablet(s) PO BID 04/19/2018 05/09/2018 Inactive Adderall 30 mg tablet RxNorm: 076302 2 Tablet(s) PO daily 03/26/2018 04/18/2018 Inactive paroxetine 20 mg tablet RxNorm: 1976277 2 Tablet(s) PO QHS 03/15/2018 05/09/2018 Inactive Adderall 30 mg tablet RxNorm: 035661 2 Tablet(s) PO daily 02/25/2018 03/25/2018 Inactive cyclobenzaprine 10 m g tablet RxNorm: 573433 1 Tablet(s) PO TID as needed muscle spasms 02/22/2018 05/06/2018 Inactive tramadol 50 mg tablet RxNorm: 450934 1 Tablet(s) PO TID as needed 02/22/2018 03/07/2018 Inactive tramadol 50 mg tablet RxNorm: 076908 1 Tablet(s) PO TID as needed 02/22/2018 02/21/2018 Inactive trazodone 100 mg tablet RxNorm: 633952 1 Tablet(s) PO QHS 02/03/2018 05/03/2018 Inactive trazodone 100 mg tablet RxNorm: 331883 1 Tablet(s) PO QHS 02/03/2018 02/02/2018 Inactive Adderall 30 mg tablet RxNorm: 330801 2 Tablet(s) PO daily 01/27/2018 02/18/2018 Inactive acyclovir 400 mg tablet RxNorm: 892534 1 Tablet(s) PO TID as needed take at ons et of symptoms of cold sores x 5 days 01/15/2018 05/09/2018 Inactive Bactrim DS 800 mg-16 0 mg tablet RxNorm: 874895 1 Tablet(s) PO BID 01/11/2018 01/17/2018 Inactive Bactrim DS 800 mg-16 0 mg tablet RxNorm: 051808 1 Tablet(s) PO BID 01/11/2018 01/10/2018 Inactive Dexilant 60 mg capsu le, delayed release RxNorm: 935938 1 Capsule(s) PO daily 12/23/2017 05/09/2018 In active Dexilant 60 mg capsu le, delayed release RxNorm: 709471 1 Capsule(s) PO daily 12/23/2017 12/22/2017 In active atenolol 50 mg tablet RxNorm: 942601 1 Tablet(s) PO BID 12/15/2017 05/09/2018 Inactive alprazolam 1 mg tablet RxNorm: 595056 1-1.5 Tablet(s) PO daily 12/15/2017 04/18/2018 Inactive ceftriaxone 500 mg s olution for injection RxNorm: 6644294 Inj 08/03/2015 08/03/2015 Inactive paroxetine 20 mg tablet RxNorm: 8973244 2 Tablet(s) PO QHS 08/01/2015 10/29/2015 Inactive pravastatin 40 mg ta blet RxNorm: 166374 1/2 Tablet(s) PO QHS 08/01/2015 12/14/2017 Inactive Trazadone 100mg 100 mg RxNorm: 1 PO daily 08/01/2015 11/27/2015 Inactive Trazadone 100mg 100 mg RxNorm: 1 PO daily 08/01/2015 05/04/2018 Inactive atenolol 50 mg tablet RxNorm: 263896 1 Tablet(s) PO daily 08/01/2015 10/29/2015 Inactive ibuprofen 800 mg tablet RxNorm: 320172 1 Tablet(s) PO BID -TID No Start Date Active Zyrtec 10 mg tablet RxNorm: 0504091 1 Tablet(s) PO daily No Start Date Active pravastatin 40 mg ta blet RxNorm: 212788 1/2 Tablet(s) PO QHS No Start Date 07/31/2015 Inactive Benadryl Allergy 25 mg tablet RxNorm: 7759782 1 Tablet(s) PO daily No Start Date 07/19/2018 Inactive Adderall 30 mg tablet RxNorm: 166955 2 Tablet(s) PO daily No Start Date 01/26/2018 Inactive Aspirin Low Dose 81 mg tablet,delayed release RxNorm: 872330 1 Tablet(s) PO BID No Start Date 07/19/2018 Inactive Singulair 10 mg tablet RxNorm: 577661 1 Tablet(s) PO daily No Start Date 05/09/2018 Inactive cyclobenzaprine 10 m g tablet RxNorm: 745491 1 Tablet(s) PO TID as needed muscle spasms No Start Date 02/21/2018 Inactive Trazadone 100mg 100 mg RxNorm: 1 PO daily No Start Date 07/31/2015 Inactive hydrocortisone 2.5 % topical cream RxNorm: 285418 1 Application TOP BID No Start Date 07/20/2018 Inactive alprazolam 1 mg tablet RxNorm: 386330 2 Tablet(s) PO daily No Start Date 12/14/2017 Inactive tramadol 50 mg tablet RxNorm: 747191 1-2 Tablet(s) PO Q6 as needed No Start Date 08/17/2018 Inactive Vitamin D2 50,000 un it capsule RxNorm: 9656746 1 Capsule(s) PO QW No Start Date 05/17/2018 Inactive pantoprazole 40 mg t ablet,delayed release RxNorm: 749612 1 Tablet(s) PO BID No Start Date 12/22/2017 Inactive atenolol 50 mg tablet RxNorm: 721815 1 Tablet(s) PO daily No Start Date 07/31/2015 Inactive paroxetine 20 mg tablet RxNorm: 444860 2 Tablet(s) PO QHS No Start Date 07/31/2015 Inactive Medication Administered Medication Codes Instruc tions Start Date Status testosterone cypionate 200 mg/mL intramuscular oil RxNorm: 939050 Milliliter 09/28/2018 No longer Active testosterone cypionate 200 mg/mL intramuscular oil RxNorm: 522812 Milliliter 09/16/2018 No longer Active testosterone cypionate 200 mg/mL intramuscular oil RxNorm: 975352 1Milliliter 09/02/2018 No longer Active testosterone cypionate 200 mg/mL intramuscular oil RxNorm: 070125 Milliliter 08/19/2018 No longer Active testosterone cypionate 200 mg/mL intramuscular oil RxNorm: 527343 Milliliter 07/15/2018 No longer Active testosterone cypionate 200 mg/mL intramuscular oil RxNorm: 469282 Milliliter 06/17/2018 No longer Active testosterone cypionate 200 mg/mL intramuscular oil RxNorm: 187680 Milliliter 05/21/2018 No longer Active ceftriaxone 500 mg solution for injection RxNorm: 4490235 08/03/2015 No longer A ctive Immunizations Vaccine [...] Item Item Code Result Date Testosterone Serum 048140 TESTOSTERONE 44.1 ng/dL 08/18/2018 Hemoglobin 477084 WBC 7.62 thou/uL 08/17/2018 Hemoglobin 470101 RBC 5.23 mil/uL 08/17/2018 Hemoglobin 845167 HEMOGL OBIN 15.0 g/dL 08/17/2018 Hemoglobin 687809 HEMATO CRIT 45.0 % 08/17/2018 Hemoglobin 875528 MCV 86.0 fL 08/17/2018 Hemoglobin 827878 MCH 28.7 pg 08/17/2018 Hemoglobin 680886 MCHC 33.3 g/dL 08/17/2018 Hemoglobin 396095 RDW-CV 12.9 % 08/17/2018 Hemoglobin 730615 PLATEL ET COUNT 313 thou/uL 08/17/2018 Hematocrit 928275 WBC 7.62 thou/uL 08/17/2018 Hematocrit 831377 RBC 5.23 mil/uL 08/17/2018 Hematocrit 392586 HEMOGL OBIN 15.0 g/dL 08/17/2018 Hematocrit 066419 HEMATO CRIT 45.0 % 08/17/2018 Hematocrit 024285 MCV 86.0 fL 08/17/2018 Hematocrit 484108 MCH 28.7 pg 08/17/2018 Hematocrit 409372 MCHC 33.3 g/dL 08/17/2018 Hematocrit 090383 RDW-CV 12.9 % 08/17/2018 Hematocrit 939062 PLATEL ET COUNT 313 thou/uL 08/17/2018 Culture Mrsa 118967 MRSA CULTURE SEE NOTES 06/21/2018 Comp. Metabolic Panel (14) 12828 GLUCOSE 101 mg/dL 06/18/2018 Comp. Metabolic Panel (14) 16616 BUN 18 mg/dL 06/18/2018 Comp. Metabolic Panel (14) 06196 CREATININE 0.99 mg/dL 06/18/2018 Comp. Metabolic Panel (14) 01577 SODIUM 141 mmol/L 06/18/2018 Comp. Metabolic Panel (14) 94287 POTASSIUM 4.3 mmol/L 06/18/2018 Comp. Metabolic Panel (14) 06727 CHLORIDE 103 mmol/L 06/18/2018 Comp. Metabolic Panel (14) 62864 CARBON DIOXIDE 23 mmol/L 06/18/2018 Comp. Metabolic Panel (14) 61468 CALCIUM 9.8 mg/dL 06/18/2018 Comp. Metabolic Panel (14) 06608 TOTAL PROTEIN 7.1 g/dL 06/18/2018 Comp. Metabolic Panel (14) 46843 ALBUMIN 5.2 g/dL 06/18/2018 Comp. Metabolic Panel (14) 48512 ALKALINE PHOSPHATASE 65 U/L 06/18/2018 Comp. Metabolic Panel (14) 89549 TOTAL BILIRUBIN 0.6 mg/dL 06/18/2018 Comp. Metabolic Panel (14) 70884 SGOT (AST) 21 U/L 06/18/2018 Comp. Metabolic Panel (14) 61475 SGPT (ALT) 24 U/L 06/18/2018 Comp. Metabolic Panel (14) 02843 eGFR (mL/min/1.73m2) 115 06/18/2018 Comp. Metabolic Panel (14) 60432 INTERPRETATION 06/18/2018 Cbc With Differential/Platelet 39234 WBC 4.55 thou/uL 8 Cbc With Differential/Platelet 61711 RBC 5.13 mil/uL 06/18/2018 Cbc With Differential/Platelet 41353 HEMOGLOBIN 14.4 g/dL 06/18/2018 Cbc With Differential/Platelet 68297 HEMATOCRIT 44.1 % 06/18/2018 Cbc With Differential/Platelet 07724 MCV 85.9 fL 06/18/2018 Cbc With Differential/Platelet 91985 MCH 28.1 pg 06/18/2018 Cbc With Differential/Platelet 19249 MCHC 32.7 g/dL 06/18/2018 Cbc With Differential/Platelet 30343 RDW-CV 13.4 % 06/18/2018 Cbc With Differential/Platelet 02174 PLATELET COUNT 287 thou/uL 06/18/2018 Cbc With Differential/Platelet 02060 NEUTROPHIL % 53.9 % 06/18/2018 Cbc With Differential/Platelet 24999 LYMPHOCYTE % 36.1 % 06/18/2018 Cbc With Differential/Platelet 21054 MONOCYTE % 7.4 % 06/18/2018 Cbc With Differential/Platelet 40981 EOS % 1.9 % 06/18/2018 Cbc With Differential/Platelet 30974 BASO % 0.8 % 06/18/2018 Cbc With Differential/Platelet 91518 NEUTROPHIL ABS # 2.45 thou/uL 06/18/2018 Cbc With Differential/Platelet 25189 LYMPH ABS # 1.64 thou/uL 06/18/2018 Cbc With Differential/Platelet 30369 MONOCYTE ABS # 0.34 thou/uL 06/18/2018 Cbc With Differential/Platelet 45793 EOS ABS # 0.09 thou/uL 8 Cbc With Differential/Platelet 33114 BASO ABS # 0.04 thou/uL 06/18/2018 Review [...] hygiene 08/02/2018 None Full Exam - General 1995 Eyes conjunctiva/eyelids Overall: conjunctiva clear 08/02/2018 None [...] normal 01/15/2018 None Full Exam - General 1995 Eyes pupils and irises Pupil: round 01/15/2018 [...] Procedure Codes Date THER/PROPH/DIAG INJ SC/IM CPT-4: 04180 09/28/2018 THER/PROPH/DIAG INJ SC/IM CPT-4: 25677 09/16/2018 THER/PROPH/DIAG INJ SC/IM CPT-4: 55706 09/02/2018 THER/PROPH/DIAG INJ SC/IM CPT-4: 80973 08/19/2018 IMMUNIZATION ADMIN CPT- 4: 93984 08/02/2018 FLU VAC NO PRSV 4 VA L 3 YRS+ CPT-4: 55960 08/02/2018 THER/PROPH/DIAG INJ SC/IM CPT-4: 40280 07/15/2018 THER/PROPH/DIAG INJ SC/IM CPT-4: 65542 06/17/2018 THER/PROPH/DIAG INJ SC/IM CPT-4: 04516 05/21/2018 THER/PROPH/DIAG INJ SC/IM CPT-4: 98699 08/03/2015 ROCEPHIN, PER 250 MG CPT-4: J0696 08/03/2015 Vital Signs Date Vital 09/24/2018 Blood Pressure 1: 140/82 Code: 8480-6 BMI: 36.0 Code: 37400-7 Heart Rate 1: 86 bpm Height: 5'7" SpO2: 98% Temperature: 37.1 (C ) / 98.7 (F) Weight: 230 lbs 08/16/2018 Blood Pressure 1: 148/82 Code: 8480-6 Blood Pressure 2: 157/92 Code: 8480-6 BMI: 35.9 Code: 49874-5 Heart Rate 1: 72 bpm Height: 5'7" SpO2: 96% Weight: 229 lbs 08/02/2018 Blood Pressure 1: 142/86 Code: 8480-6 BMI: 35.2 Code: 96083-1 Heart Rate 1: 101 bpm Height: 5'7" SpO2: 97% Weight: 225 lbs 05/31/2018 Blood Pressure 1: 134/82 Code: 8480-6 BMI: 35.4 Code: 46553-9 Heart Rate 1: 91 bpm Height: 5'7" SpO2: 96% Weight: 226 lbs 05/20/2018 Blood Pressure 1: 160/100 Code: 8480-6 BMI: 35.2 Code: 66852-5 Heart Rate 1: 89 bpm Height: 5'7" SpO2: 98% Weight: 225 lbs 05/10/2018 Blood Pressure 1: 124/70 Code: 8480-6 BMI: 35.1 Code: 52936-9 Heart Rate 1: 93 bpm Height: 5'7" SpO2: 99% Weight: 224 lbs 01/15/2018 Blood Pressure 1: 142/92 Code: 8480-6 BMI: 36.3 Code: 26418-3 Heart Rate 1: 77 bpm Height: 5'7" SpO2: 98% Weight: 232 lbs 12/15/2017 Blood Pressure 1: 156/98 Code: 8480-6 BMI: 36.2 Code: 98905-6 Heart Rate 1: 87 bpm Height: 5'7" [...] Encounters Encounter Performer Loca tion Codes Date 84534 EST. PATIENT, LEVEL III Diagnosis: Acute upper respiratory infection, unspecified[ICD10: J06.9] Diagnosis: Other allergic rhinitis[ICD10: J30.89] Sonia Gonzalez MD, [facility] CPT-4: 53866 09/24/2018 ([id number] 06166 EST. 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 P ATIENT, LEVEL IV Diagnosis: Essential (primary) hypertension[ICD10: I10] Diagnosis: Cervicalgia[ICD10: M54.2] Radha Gonzalez MD, [facility] CPT-4: 11794 05/31/2018 ([id number]) 92244 EST. 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 09/24/2018 Appointment: Sonia Potter WPtel: [address] [place], [place] [phone] (15 min) Moderate 09/24/2018 Patient Education: Patient [...] at home. Multiple symptoms - referral to medical center clinic - appt in September 30, 2018. 08/16/2018 Appointment: Radha Gonzalez WPtel: [phone] [phone] (15 min) Moderate 08/16/2018 Patient Education: Patient [...] at home. Multiple symptoms - referral to medical center clinic - rashes, hypogonadism, optic neuritis - all points to possible autoimmune syndrome. Spinal stenosis - of thoracic region - pt to talk to Dr. Dunaway about referral to a different specialist for his mid- back. Hypogonadism - continue with testosterone. Flu shot given today in clinic. 08/02/2018 Appointment: Radha Gonzalez WPtel: [phone] [facility] [place] (15 min) Moderate 08/02/2018 Patient Education: Patient Medication Summary Completed 08/02/2018 Care Plan: Referral Order SNOMED-CT : 521536735 Pending 08/02/2018 Appointment: Injection 07/15/2018 Patient Education: [...] home. Cervical spine stenosis - [facility] I have also recommended a Referral to Dr. Dunaway. I have called and talked to Dr. Dunaway - he looked at the pt's imaging and agrees that getting the pt in to be seen soon would be a preferred option. 05/31/2018 Appointment: Radha Gonzalez WPtel: [phone] [facility] [place] (15 min) Moderate 05/31/2018 Patient Education: Patient Medication Summary Completed 05/31/2018 Care Plan: Referral Order SNOMED-CT : 812960453 Pending 05/31/2018 Care Plan: Referral Order SNOMED-CT : 760374725 Pending 05/31/2018 Appointment: Injection 05/21/2018 Patient Education: Patient Medication Summary Completed 05/21/2018 Care Plan: Referral Order SNOMED-CT : 927109916 Pending 05/21/2018 Visit Plan: Cervical and thoracic s tenosis with spinal cord compression -refer for appt with Dr Marr -rx for hydrocodone for pain-start gabapentin at bedtime Soft tissue lesion-left chest-schedule CTfor further evaluation HTN-elevated today-hold adderall-monitor blood pressure 05/20/2018 Appointment: Hannah Simons WPtel: [phone] [phone] [place] (15 min) Moderate 05/20/2018 [...] this. 05/10/2018 [facility]ment[phone] [place] ([facility] min) Moderate 05/10/2018 Patient Education: Patient Medication Summary Completed 05/10/2018 Visit Plan: Sleep apnea - rx for cp ap - actually autopap was recommended and pt given rx today. HTN - referral to dr. kapoor - pt needs stress testing. 01/15/2018 App[facility]ment: [phone] [place] (15 min) Moderate 01/15/2018 Patient Education: Patient Medication Summary Completed 01/15/2018 Care Plan: Referral Order SNOMED-CT : 227256207 Pending 01/15/2018 Visit Plan: Well Adult - [...] one month. 12/15/2017 Appointment: Radha Gonzalez WPtel: [facility] New Patient 12/15/2017 Patient Education: Patient Medication Summary Completed 12/15/2017 Care Plan: CHEST X-RAY 2VW FRONTAL&LATL LOINC : 67444-1 Pending 12/15/2017 Appointment: Radha Gonzalez WPtel: [phone] (15 min) Moderate 12/08/2017 Appointment: (S) New Patient 08/13/2015 Visit Plan: steri strip placed on t humb of right hand - antibiotic shot given to patient and rx for keflex 500mg qid x 10 days given to the patient to fill prior to his trip to [place] 08/03/2015 Patient Education: Patient Medication Summary Completed 08/03/2015 Referral: External, Ordering Provider 08/03 Referral info faxed to [facility]. Patient informed to be expecting a call from them with appt info Appointment Requested Referral: External, Ordering Provider Referral Appointment Requested Referral: External, Ordering Provider I called today; they will call him to schedule. Completed Referral: Armani Dunaway Referral Appointment Requested Referral: Mayte Kapoor Referral Appointment Requested Referral: [facility] [phone] [facility] [place] Referral Appointment Requested Referral: External, [...] at home. Multiple symptoms - referral to medical center clinic - rashes, hypogonadism, optic neuritis - all [...] at home. Multiple symptoms - referral to medical center clinic - appt in September 30, 2018. . steri strip placed on thumb of right hand - antibiotic shot given to patient and rx for keflex 500mg qid x 10 days given to the patient to fill prior to his trip to [place] will refill meds for 90 days Will [...] Cervical spine stenosis - referral to [facility] physical therapy. I have also recommended a Referral to Dr. Dunaway. I have called and talked to Dr. Dunaway - he looked at the pt's imaging and agrees that getting the pt in to be seen soon would be a preferred option.
[2020-04-28 01:02] LABS: BUN/CREATININE RATIO 10
--- OUTSIDE RECORDS SUMMARY | 2020-04-28 01:02 | XMS REPORT | CCD ---
Author Author Nilton Gonzalez Organization Radha Gonzalez MD, [facility] Address [address] [place] [address] Phone Care Team Providers Care Web Sizer Name Role Phone PP Unavailable CCM Unavailable Summary Purpose Interface Exchange Insurance Providers Payer name Policy type / Coverage type Covered green party ID Effective Begin Date Effective End Date CORESOURCES Commercial Insurance [id number] 2017 Unknown Family history Brother Diagnosis Age At Onset Alcoholism Unknown Father Diagnosis Age At Onset Hypercholesterolemia Unknown Social History Social History Element Codes Description Effective Dates Marital status Unknown S chanda 12/15/2017 Number of children Unknown 1 12/15/2017 Employment Unknown 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 Active 05/20/2018 Unknown Essential (primary) hypertension ICD-9: [...] Condition Codes Effectiv e Dates Condition Status Acute upper respirat ory infection, unspecified ICD-9: 465.9 ICD-10: J06.9 09/24/2018 Active Other allergic rhinitis ICD-9: 477.8 ICD-10: J30.89 09/24/2018 Active 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 05/20/2018 Active Essential (primary) hypertension ICD-9: 401.1 [...] 724.1 ICD-10: M54.6 05/10/2018 Active Encounter for [facility] adult medical examination with abnormal findings ICD-9: V70.0 ICD-10: Z00.01 12/15/2017 Active Laceration of thumb ICD- 9: 883.0 08/02/2015 Active Medications Medication Codes Instruc tions Start Date Stop Date Sta tus Fill Instructions Tamiflu 75 mg capsule RxNorm: 240683 1 Capsule(s) PO BID 09/24/2018 09/28/2018 Active Adderall 30 mg tablet RxNorm: 425250 2 Tablet(s) PO daily 09/20/2018 10/19/2018 Active hydrocodone 5 mg-fanny taminophen 325 mg tablet RxNorm: 386731 1 Tablet(s) PO TID TX N 09/20/2018 No Stop Date Active testosterone cypiona te 200 mg/mL intramuscular oil RxNorm: 369698 Milliliter(s) IM 09/16/2018 09/16/2018 In active testosterone cypiona te 200 mg/mL intramuscular oil RxNorm: 226868 1 Milliliter(s) IM 09/02/2018 09/02/2018 Inactive testosterone cypiona te 200 mg/mL intramuscular oil RxNorm: 701574 Milliliter(s) IM 08/19/2018 08/19/2018 In active tramadol 50 mg tablet RxNorm: 447109 1-2 Tablet(s) PO Q6 as needed 08/18/2018 No Stop Date Active Adderall 30 mg tablet RxNorm: 325338 2 Tablet(s) PO daily 08/18/2018 09/16/2018 Inactive Dexilant 60 mg capsu le, delayed release RxNorm: 769018 1 Capsule(s) PO BID 08/17/2018 08/11/2019 Ac tive atenolol 50 mg tablet RxNorm: 327165 1 Tablet(s) PO BID 08/17/2018 08/11/2019 Active Zorvolex 35 mg capsule RxNorm: 8706917 1 Capsule(s) PO TID as needed for pain 08/17/2018 02/12/2019 Ac tive ketoconazole 2 % top ical cream RxNorm: 276730 1 Gram(s) TOP BID 08/17/2018 08/26/2018 Inactive Zorvolex 35 mg capsule RxNorm: 1001523 1 Capsule(s) PO TID as needed for pain 08/17/2018 08/16/2018 In active ketoconazole 2 % top ical cream RxNorm: 574782 1 Gram(s) TOP BID 08/02/2018 08/11/2018 Inactive hydrocortisone 2.5 % topical cream RxNorm: 501739 1 Application TOP BID 07/21/2018 No Stop Date Active Adderall 30 mg tablet RxNorm: 886818 2 Tablet(s) PO daily 07/20/2018 08/17/2018 Inactive testosterone cypiona te 200 mg/mL intramuscular oil RxNorm: 261304 Milliliter(s) IM 07/15/2018 07/15/2018 In active alprazolam 1 mg tablet RxNorm: 803542 1 Tablet(s) PO TID as needed 07/12/2018 09/08/2018 Inactive hydrocodone 5 mg-fanny taminophen 325 mg tablet RxNorm: 147418 1 Tablet(s) PO TID TX N 06/30/2018 09/19/2018 In active pravastatin 40 mg ta blet RxNorm: 837579 1 Tablet(s) PO QHS 06/18/2018 09/15/2018 Inactive Adderall 30 mg tablet RxNorm: 012418 2 Tablet(s) PO daily 06/18/2018 07/17/2018 Inactive testosterone cypiona te 200 mg/mL intramuscular oil RxNorm: 416464 Milliliter(s) IM 06/17/2018 06/17/2018 In active Voltaren 1 % topical gel RxNorm: 383470 APPLY TOPICALLY TWO T IMES A DAY 06/16/2018 07/21/2018 In active Vitamin D2 50,000 un it capsule RxNorm: 8141391 1 Capsule(s) PO QW 05/21/2018 No Stop Date Active Adderall 30 mg tablet RxNorm: 725838 2 Tablet(s) PO daily 05/21/2018 06/17/2018 Inactive testosterone cypiona te 200 mg/mL intramuscular oil RxNorm: 266630 Milliliter(s) IM 05/21/2018 05/21/2018 In active testosterone cypiona te 200 mg/mL intramuscular oil RxNorm: 734084 1 Milliliter(s) IM monthly 05/20/2018 09/16/2018 Inactive testosterone cypiona te 200 mg/mL intramuscular oil RxNorm: 074466 1 Milliliter(s) IM monthly 05/20/2018 05/19/2018 Inactive hydrocodone 5 mg-fanny taminophen 325 mg tablet RxNorm: 724587 1 Tablet(s) PO TID TX N 05/20/2018 06/29/2018 In active Vitamin D2 50,000 un it capsule RxNorm: 5253360 1 Capsule(s) PO QW 05/18/2018 05/20/2018 Inactive triamcinolone aceton destin 0.025 % topical cream RxNorm: 3569835 1 Application TOP BI D 05/13/2018 No Stop Date Active Dexilant 60 mg capsu le, delayed release RxNorm: 506851 1 Capsule(s) PO BID 05/13/2018 08/16/2018 In active Zorvolex 35 mg capsule RxNorm: 2375040 1 Capsule(s) PO TID as needed for pain 05/12/2018 08/09/2018 In active Voltaren 1 % topical gel RxNorm: 598293 1 Application TOP BID 05/12/2018 06/15/2018 Inactive Singulair 10 mg tablet RxNorm: 151691 1 Tablet(s) PO daily 05/10/2018 08/07/2018 Inactive acyclovir 400 mg tablet RxNorm: 557091 1 Tablet(s) PO TID as needed take at ons et of symptoms of cold sores x 5 days 05/10/2018 No Stop Date Active paroxetine 20 mg tablet RxNorm: 8673339 2 Tablet(s) PO QHS 05/10/2018 10/31/2019 Active ProAir HFA 90 mcg/ac tuation aerosol inhaler RxNorm: 384450 1 Puff(s) INH QID as needed 05/10/2018 No Stop Date Active trazodone 100 mg tablet RxNorm: 274691 1 Tablet(s) PO QHS 05/10/2018 11/05/2018 Active baclofen 20 mg tablet RxNorm: 144570 1 Tablet(s) PO TID as needed muscle spas ms 05/10/2018 06/08/2018 In active atenolol 50 mg tablet RxNorm: 103762 1 Tablet(s) PO BID 05/10/2018 08/07/2018 Inactive triamcinolone aceton destin 0.025 % topical cream RxNorm: 0158489 1 Application TOP BI D 05/10/2018 05/12/2018 In active tramadol 50 mg tablet RxNorm: 570191 1 Tablet(s) PO TID as needed 05/10/2018 05/19/2018 Inactive Dexilant 60 mg capsu le, delayed release RxNorm: 253893 1 Capsule(s) PO daily 05/10/2018 05/12/2018 In active alprazolam 1 mg tablet RxNorm: 287655 1 Tablet(s) PO TID as needed 05/10/2018 08/06/2018 Inactive cyclobenzaprine 10 m g tablet RxNorm: 890218 1 Tablet(s) PO TID as needed muscle spasms 05/07/2018 07/12/2018 Inactive trazodone 100 mg tablet RxNorm: 709227 1 Tablet(s) PO QHS 05/07/2018 05/09/2018 Inactive Adderall 30 mg tablet RxNorm: 030453 2 Tablet(s) PO daily 04/19/2018 05/18/2018 Inactive alprazolam 1 mg tablet RxNorm: 616431 1 Tablet(s) PO BID 04/19/2018 05/09/2018 Inactive Adderall 30 mg tablet RxNorm: 660122 2 Tablet(s) PO daily 03/26/2018 04/18/2018 Inactive paroxetine 20 mg tablet RxNorm: 8244587 2 Tablet(s) PO QHS 03/15/2018 05/09/2018 Inactive Adderall 30 mg tablet RxNorm: 857206 2 Tablet(s) PO daily 02/25/2018 03/25/2018 Inactive cyclobenzaprine 10 m g tablet RxNorm: 473561 1 Tablet(s) PO TID as needed muscle spasms 02/22/2018 05/06/2018 Inactive tramadol 50 mg tablet RxNorm: 774479 1 Tablet(s) PO TID as needed 02/22/2018 03/07/2018 Inactive tramadol 50 mg tablet RxNorm: 080789 1 Tablet(s) PO TID as needed 02/22/2018 02/21/2018 Inactive trazodone 100 mg tablet RxNorm: 819852 1 Tablet(s) PO QHS 02/03/2018 05/03/2018 Inactive trazodone 100 mg tablet RxNorm: 081746 1 Tablet(s) PO QHS 02/03/2018 02/02/2018 Inactive Adderall 30 mg tablet RxNorm: 423021 2 Tablet(s) PO daily 01/27/2018 02/18/2018 Inactive acyclovir 400 mg tablet RxNorm: 260779 1 Tablet(s) PO TID as needed take at ons et of symptoms of cold sores x 5 days 01/15/2018 05/09/2018 Inactive Bactrim DS 800 mg-16 0 mg tablet RxNorm: 761382 1 Tablet(s) PO BID 01/11/2018 01/17/2018 Inactive Bactrim DS 800 mg-16 0 mg tablet RxNorm: 820757 1 Tablet(s) PO BID 01/11/2018 01/10/2018 Inactive Dexilant 60 mg capsu le, delayed release RxNorm: 648571 1 Capsule(s) PO daily 12/23/2017 05/09/2018 In active Dexilant 60 mg capsu le, delayed release RxNorm: 055884 1 Capsule(s) PO daily 12/23/2017 12/22/2017 In active atenolol 50 mg tablet RxNorm: 842056 1 Tablet(s) PO BID 12/15/2017 05/09/2018 Inactive alprazolam 1 mg tablet RxNorm: 194491 1-1.5 Tablet(s) PO daily 12/15/2017 04/18/2018 Inactive ceftriaxone 500 mg s olution for injection RxNorm: 0575451 Inj 08/03/2015 08/03/2015 Inactive paroxetine 20 mg tablet RxNorm: 1037610 2 Tablet(s) PO QHS 08/01/2015 10/29/2015 Inactive pravastatin 40 mg ta blet RxNorm: 640039 1/2 Tablet(s) PO QHS 08/01/2015 12/14/2017 Inactive Trazadone 100mg 100 mg RxNorm: 1 PO daily 08/01/2015 11/27/2015 Inactive Trazadone 100mg 100 mg RxNorm: 1 PO daily 08/01/2015 05/04/2018 Inactive atenolol 50 mg tablet RxNorm: 216797 1 Tablet(s) PO daily 08/01/2015 10/29/2015 Inactive ibuprofen 800 mg tablet RxNorm: 355426 1 Tablet(s) PO BID -TID No Start Date Active Zyrtec 10 mg tablet RxNorm: 6417893 1 Tablet(s) PO daily No Start Date Active pravastatin 40 mg ta blet RxNorm: 062950 1/2 Tablet(s) PO QHS No Start Date 07/31/2015 Inactive Benadryl Allergy 25 mg tablet RxNorm: 9091745 1 Tablet(s) PO daily No Start Date 07/19/2018 Inactive Adderall 30 mg tablet RxNorm: 027836 2 Tablet(s) PO daily No Start Date 01/26/2018 Inactive Aspirin Low Dose 81 mg tablet,delayed release RxNorm: 060438 1 Tablet(s) PO BID No Start Date 07/19/2018 Inactive Singulair 10 mg tablet RxNorm: 154093 1 Tablet(s) PO daily No Start Date 05/09/2018 Inactive cyclobenzaprine 10 m g tablet RxNorm: 651154 1 Tablet(s) PO TID as needed muscle spasms No Start Date 02/21/2018 Inactive Trazadone 100mg 100 mg RxNorm: 1 PO daily No Start Date 07/31/2015 Inactive hydrocortisone 2.5 % topical cream RxNorm: 954705 1 Application TOP BID No Start Date 07/20/2018 Inactive alprazolam 1 mg tablet RxNorm: 103888 2 Tablet(s) PO daily No Start Date 12/14/2017 Inactive tramadol 50 mg tablet RxNorm: 421838 1-2 Tablet(s) PO Q6 as needed No Start Date 08/17/2018 Inactive Vitamin D2 50,000 un it capsule RxNorm: 8902539 1 Capsule(s) PO QW No Start Date 05/17/2018 Inactive pantoprazole 40 mg t ablet,delayed release RxNorm: 661787 1 Tablet(s) PO BID No Start Date 12/22/2017 Inactive atenolol 50 mg tablet RxNorm: 639388 1 Tablet(s) PO daily No Start Date 07/31/2015 Inactive paroxetine 20 mg tablet RxNorm: 300414 2 Tablet(s) PO QHS No Start Date 07/31/2015 Inactive Medication Administered Medication Codes Instruc tions Start Date Status testosterone cypionate 200 mg/mL intramuscular oil RxNorm: 156121 Milliliter 09/16/2018 No longer Active testosterone cypionate 200 mg/mL intramuscular oil RxNorm: 622360 1Milliliter 09/02/2018 No longer Active testosterone cypionate 200 mg/mL intramuscular oil RxNorm: 948614 Milliliter 08/19/2018 No longer Active testosterone cypionate 200 mg/mL intramuscular oil RxNorm: 953351 Milliliter 07/15/2018 No longer Active testosterone cypionate 200 mg/mL intramuscular oil RxNorm: 188062 Milliliter 06/17/2018 No longer Active testosterone cypionate 200 mg/mL intramuscular oil RxNorm: 823545 Milliliter 05/21/2018 No longer Active ceftriaxone 500 mg solution for injection RxNorm: 8384320 08/03/2015 No longer A ctive Immunizations Vaccine Codes Date Status Influenza CVX: 141 08/02 completed Tetanus, Diptheria, Pertussis CVX: 113 05/16/2011 completed Tetanus/Diptheria CVX: 113 05/16/2011 completed Assessments Condition Codes Effectiv e Dates Other allergic rhinitis ICD-10: J30. 89 ICD-9: 477.8 09/24/2018 Acute upper respiratory infection, unspecified ICD-10: J06.9 ICD-9: 465.9 09/24/2018 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 ICD-9: 257.2 09/16/2018 Essential (primary) hypertension ICD -10: I10 ICD-9: [...] Item Item Code Result Date Testosterone Serum 463477 TESTOSTERONE 44.1 ng/dL 08/18/2018 Hemoglobin 20020721 WBC 7.62 thou/uL 08/17/2018 Hemoglobin 20020721 RBC 5.23 mil/uL 08/17/2018 Hemoglobin 20020721 HEMOGL OBIN 15.0 g/dL 08/17/2018 Hemoglobin 20020721 HEMATO CRIT 45.0 % 08/17/2018 Hemoglobin 212515 MCV 86.0 fL 08/17/2018 Hemoglobin 366355 MCH 28.7 pg 08/17/2018 Hemoglobin 266915 MCHC 33.3 g/dL 08/17/2018 Hemoglobin 953790 RDW-CV 12.9 % 08/17/2018 Hemoglobin 590482 PLATEL ET COUNT 313 thou/uL 08/17/2018 Hematocrit 026595 WBC 7.62 thou/uL 08/17/2018 Hematocrit 029205 RBC 5.23 mil/uL 08/17/2018 Hematocrit 894454 HEMOGL OBIN 15.0 g/dL 08/17/2018 Hematocrit 443476 HEMATO CRIT 45.0 % 08/17/2018 Hematocrit 139863 MCV 86.0 fL 08/17/2018 Hematocrit 029544 MCH 28.7 pg 08/17/2018 Hematocrit 033991 MCHC 33.3 g/dL 08/17/2018 Hematocrit 603993 RDW-CV 12.9 % 08/17/2018 Hematocrit 881882 PLATEL ET COUNT 313 thou/uL 08/17/2018 Culture Mrsa 132342 MRSA CULTURE SEE NOTES 06/21/2018 Comp. Metabolic Panel (14) 82463 GLUCOSE 101 mg/dL 06/18/2018 Comp. Metabolic Panel (14) 61579 BUN 18 mg/dL 06/18/2018 Comp. Metabolic Panel (14) 09757 CREATININE 0.99 mg/dL 06/18/2018 Comp. Metabolic Panel (14) 42003 SODIUM 141 mmol/L 06/18/2018 Comp. Metabolic Panel (14) 45065 POTASSIUM 4.3 mmol/L 06/18/2018 Comp. Metabolic Panel (14) 72655 CHLORIDE 103 mmol/L 06/18/2018 Comp. Metabolic Panel (14) 51737 CARBON DIOXIDE 23 mmol/L 06/18/2018 Comp. Metabolic Panel (14) 88234 CALCIUM 9.8 mg/dL 06/18/2018 Comp. Metabolic Panel (14) 88346 TOTAL PROTEIN 7.1 g/dL 06/18/2018 Comp. Metabolic Panel (14) 37341 ALBUMIN 5.2 g/dL 06/18/2018 Comp. Metabolic Panel (14) 29983 ALKALINE PHOSPHATASE 65 U/L 06/18/2018 Comp. Metabolic Panel (14) 97357 TOTAL BILIRUBIN 0.6 mg/dL 06/18/2018 Comp. Metabolic Panel (14) 53605 SGOT (AST) 21 U/L 06/18/2018 Comp. Metabolic Panel (14) 19654 SGPT (ALT) 24 U/L 06/18/2018 Comp. Metabolic Panel (14) 26940 eGFR (mL/min/1.73m2) 115 06/18/2018 Comp. Metabolic Panel (14) 79034 INTERPRETATION 06/18/2018 Cbc With Differential/Platelet 10683 WBC 4.55 thou/uL 8 Cbc With Differential/Platelet 99140 RBC 5.13 mil/uL 06/18/2018 Cbc With Differential/Platelet 41621 HEMOGLOBIN 14.4 g/dL 06/18/2018 Cbc With Differential/Platelet 05875 HEMATOCRIT 44.1 % 06/18/2018 Cbc With Differential/Platelet 59632 MCV 85.9 fL 06/18/2018 Cbc With Differential/Platelet 07571 MCH 28.1 pg 06/18/2018 Cbc With Differential/Platelet 91981 MCHC 32.7 g/dL 06/18/2018 Cbc With Differential/Platelet 84965 RDW-CV 13.4 % 06/18/2018 Cbc With Differential/Platelet 00520 PLATELET COUNT 287 thou/uL 06/18/2018 Cbc With Differential/Platelet 33251 NEUTROPHIL % 53.9 % 06/18/2018 Cbc With Differential/Platelet 13769 LYMPHOCYTE % 36.1 % 06/18/2018 Cbc With Differential/Platelet 48727 MONOCYTE % 7.4 % 06/18/2018 Cbc With Differential/Platelet 70010 EOS % 1.9 % 06/18/2018 Cbc With Differential/Platelet 71475 BASO % 0.8 % 06/18/2018 Cbc With Differential/Platelet 25456 NEUTROPHIL ABS # 2.45 thou/uL 06/18/2018 Cbc With Differential/Platelet 69571 LYMPH ABS # 1.64 thou/uL 06/18/2018 Cbc With Differential/Platelet 32672 MONOCYTE ABS # 0.34 thou/uL 06/18/2018 Cbc With Differential/Platelet 08479 EOS ABS # 0.09 thou/uL 8 Cbc With Differential/Platelet 27887 BASO ABS # 0.04 thou/uL 06/18/2018 Review [...] Procedure Codes Date THER/PROPH/DIAG INJ SC/IM CPT-4: 60173 09/16/2018 THER/PROPH/DIAG INJ SC/IM CPT-4: 62693 09/02/2018 THER/PROPH/DIAG INJ SC/IM CPT-4: 50944 08/19/2018 IMMUNIZATION ADMIN CPT- 4: 06131 08/02/2018 FLU VAC NO PRSV 4 VA L 3 YRS+ CPT-4: 11584 08/02/2018 THER/PROPH/DIAG INJ SC/IM CPT-4: 48803 07/15/2018 THER/PROPH/DIAG INJ SC/IM CPT-4: 85642 06/17/2018 THER/PROPH/DIAG INJ SC/IM CPT-4: 81279 05/21/2018 THER/PROPH/DIAG INJ SC/IM CPT-4: 43987 08/03/2015 ROCEPHIN, PER 250 MG CPT-4: J0696 08/03/2015 Vital Signs Date Vital 09/24/2018 Blood Pressure 1: 140/82 Code: 8480-6 BMI: 36.0 Code: 15233-4 Heart Rate 1: 86 bpm Height: 5'7" SpO2: 98% Temperature: 37.1 (C ) / 98.7 (F) Weight: 230 lbs 08/16/2018 Blood Pressure 1: 148/82 Code: 8480-6 Blood Pressure 2: 157/92 Code: 8480-6 BMI: 35.9 Code: 44895-8 Heart Rate 1: 72 bpm Height: 5'7" SpO2: 96% Weight: 229 lbs 08/02/2018 Blood Pressure 1: 142/86 Code: 8480-6 BMI: 35.2 Code: 67536-8 Heart Rate 1: 101 bpm Height: 5'7" SpO2: 97% Weight: 225 lbs 05/31/2018 Blood Pressure 1: 134/82 Code: 8480-6 BMI: 35.4 Code: 08167-5 Heart Rate 1: 91 bpm Height: 5'7" SpO2: 96% Weight: 226 lbs 05/20/2018 Blood Pressure 1: 160/100 Code: 8480-6 BMI: 35.2 Code: 98834-3 Heart Rate 1: 89 bpm Height: 5'7" SpO2: 98% Weight: 225 lbs 05/10/2018 Blood Pressure 1: 124/70 Code: 8480-6 BMI: 35.1 Code: 47024-9 Heart Rate 1: 93 bpm Height: 5'7" SpO2: 99% Weight: 224 lbs 01/15/2018 Blood Pressure 1: 142/92 Code: 8480-6 BMI: 36.3 Code: 33376-8 Heart Rate 1: 77 bpm Height: 5'7" SpO2: 98% Weight: 232 lbs 12/15/2017 Blood Pressure 1: 156/98 Code: 8480-6 BMI: 36.2 Code: 54990-7 Heart Rate 1: 87 bpm Height: 5'7" [...] eye 01/15/2018 None vision change Quality ac [place] 01/15/2018 None vision change Quality lo ss [...] vision 12/15/2017 None vision change Quality ac [place] 12/15/2017 None vision change Onset and Resolution sudden in onset 12/15/2017 None vision change Onset of Symptom 3.5 weeks ago 12/15/2017 None vision change Limitation on Activities severely limits vision 12/15/2017 None vision change Triggers n o known associated factors 12/15/2017 None Advance Directives No Advance Directive data Encounters Encounter Performer Loca tion Codes Date 53054 EST. PATIENT, LEVEL III Diagnosis: Acute upper respiratory infection, unspecified[ICD10: J06.9] Diagnosis: Other allergic rhinitis[ICD10: J30.89] [facility] CPT-4: 72624 09/24/2018 ([id number] 20827 EST. P ATIENT, LEVEL III Diagnosis: Essential (primary) hypertension[ICD10: I10] Diagnosis: Testicular hypofunction[ICD10: E29.1] [facility] CPT-4: 17217 08/16/2018 [id number]) 50249 EST. P ATIENT, LEVEL IV Diagnosis: Essential (primary) hypertension[ICD10: I10] Diagnosis: Testicular hypofunction[ICD10: E29.1] Diagnosis: Spinal stenosis, thoracic region[ICD10: M48.04] Diagnosis: Rash and other nonspecific skin eruption[ICD10: R21] Diagnosis: VACCIN FOR INFLUENZA[ICD10: Z23] [facility] CPT-4: 22171 08/02/2018 ([id number]) 03541 EST. P ATIENT, LEVEL IV Diagnosis: Essential (primary) hypertension[ICD10: I10] Diagnosis: Cervicalgia[ICD10: M54.2] Radha Gonzalez MD, [facility] CPT-4: 69725 05/31/2018 ([id number]) 02274 EST. P ATIENT, LEVEL IV Diagnosis: Spinal stenosis, cervical region[ICD10: M48.02] Diagnosis: Spinal stenosis, thoracic region[ICD10: M48.04] Diagnosis: Essential (primary) hypertension[ICD10: I10] Diagnosis: Testicular hypofunction[ICD10: E29.1] Hannah Gonzalez MD, [facility] CPT-4: 49505 05/20/2018 34716 EST. 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 09/24/2018 Patient Education: Patient Medication Summary Completed [...] symptoms - referral to [facility] - appt in September 30, 2018. 08/16/2018 Appointment: Radha Gonzalez WPtel: [address] [place], [place] [id number] (15 min) Moderate 08/16/2018 Patient Education: Patient [...] symptoms - referral to [facility] - rashes, hypogonadism, optic neuritis - all points to possible autoimmune syndrome. Spinal stenosis - of thoracic region - pt to talk to Dr. Dunaway about referral to a different specialist for his mid- back. Hypogonadism - continue with testosterone. Flu shot given today in clinic. 08/02/2018 App[facility]ment: [facility] [phone] [facility] [place] (15 min) Moderate 08/02/2018 Patient Education: Patient Medication Summary Completed 08/02/2018 Care Plan: Referral Order SNOMED-CT : 208386472 Pending 08/02/2018 Appointment: Injection 07/15/2018 Patient Education: [...] option. 05/31/2018 Appointment: [facility] [phone] [facility] [place] (15 min) Moderate 05/31/2018 Patient Education: Patient Medication Summary Completed 05/31/2018 Care Plan: Referral Order SNOMED-CT : 080058823 Pending 05/31/2018 Care Plan: Referral Order SNOMED-CT : 176186783 Pending 05/31/2018 Appointment: Injection 05/21/2018 Patient Education: Patient Medication Summary Completed 05/21/2018 Care Plan: Referral Order SNOMED-CT : 790052309 Pending 05/21/2018 Visit Plan: Cervical and thoracic s tenosis with spinal cord compression -refer for appt with Dr Marr -rx for hydrocodone for pain-start gabapentin at bedtime Soft tissue lesion-left chest-schedule CTfor further evaluation HTN-elevated today-hold adderall-monitor blood pressure 05/20/2018 Appointment: [facility] [phone] [phone] [place] (15 min) Moderate 05/20/2018 Patient Education: [...] this. 05/10/2018 Appointment: [facility] Potter [facility] [phone] [facility] [place] (15 min) Moderate 05/10/2018 Patient Education: Patient Medication Summary Completed 05/10/2018 Visit Plan: Sleep apnea - rx for cp ap - actually autopap was recommended and pt given rx today. HTN - referral to dr. kapoor - pt needs stress testing. 01/15/2018 Appointment: [facility] [phone] [facility] [place] (15 min) Moderate 01/15/2018 Patient Education: Patient Medication Summary Completed 01/15/2018 Care Plan: Referral Order SNOMED-CT : 522686515 Pending 01/15/2018 Visit Plan: Well Adult - [...] month. 12/15/2017 Appointment: Radha Gonzalez WPtel: [phone] [facility] New Patient 12/15/2017 Patient Education: Patient Medication Summary Completed 12/15/2017 Care Plan: CHEST X-RAY 2VW FRONTAL&LATL LOINC : 55973-5 Pending 12/15/2017 Appointment: Radha Gonzalez WPtel: [phone] (15 min) Moderate 12/08/2017 Appointment: (S) [...] Ordering Provider 08/03 Referral info faxed to [facility]. Patient informed to be expecting a call from them with appt info Appointment Requested Referral: External, Ordering Provider Referral Appointment Requested Referral: External, Ordering Provider I called today; they will call him to schedule. Completed Referral: Armani Dunaway Referral Appointment Requested Referral: Mayte Kapoor Referral Appointment Requested Referral: [facility] WPtel: [phone] [facility] Referral Appointment Requested Referral: External, [...] symptoms - referral to [facility] - rashes, hypogonadism, optic neuritis - [...] symptoms - referral to [facility] - appt in September 30, 2018. [...]
--- OUTSIDE RECORDS SUMMARY | 2020-04-28 01:02 | XMS REPORT | CCD ---
Author Author Nilton Gonzalez Organization Radha Gonzalez MD, [facility] Address [address] [place] [address] Phone Care Team Providers Care South Asian History Professor Name Role Phone PP Unavailable CCM Unavailable Summary Purpose Interface Exchange Insurance Providers Payer name Policy type / Coverage type Covered constitution party ID Effective Begin Date Effective End Date CORESOURCES Commercial Insurance [id number] 2017 Unknown Family history Brother Diagnosis Age At Onset Alcoholism Unknown Father Diagnosis Age At Onset Hypercholesterolemia Unknown Social History Social History Element Codes Description Effective Dates Marital status Unknown S chanda 12/15/2017 Number of children Unknown 1 12/15/2017 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 [employer] 12/15/[address]: 698264003 Never smoker 12/15/[address]: 175854 Currently drinks alcohol <1 per week 12/15/2017 [...] 724.1 ICD-10: M54.6 05/10/2018 Active Encounter for [facility] adult medical examination with abnormal findings ICD-9: V70.0 ICD-10: Z00.01 12/15/2017 Active Laceration of thumb ICD- 9: 883.0 08/02/2015 Active Medications Medication Codes Instruc tions Start Date Stop Date Sta tus Fill Instructions testosterone cypiona te 200 mg/mL intramuscular oil RxNorm: 936633 Milliliter(s) IM 09/28/2018 09/28/2018 In active pravastatin 40 mg ta blet RxNorm: 895973 TAKE ONE TABLET BY [facility] EVERY NIGHT AT BEDTIME 09/27/2018 09/21/2019 Active Tamiflu 75 mg capsule RxNorm: 772870 1 Capsule(s) PO BID 09/24/2018 09/28/2018 Inactive Adderall 30 mg tablet RxNorm: 251715 2 Tablet(s) PO daily 09/20/2018 10/19/2018 Active hydrocodone 5 mg-fanny taminophen 325 mg tablet RxNorm: 995225 1 Tablet(s) PO TID LA N 09/20/2018 No Stop Date Active testosterone cypiona te 200 mg/mL intramuscular oil RxNorm: 784719 Milliliter(s) IM 09/16/2018 09/16/2018 In active testosterone cypiona te 200 mg/mL intramuscular oil RxNorm: 810132 1 Milliliter(s) IM 09/02/2018 09/02/2018 Inactive testosterone cypiona te 200 mg/mL intramuscular oil RxNorm: 303264 Milliliter(s) IM 08/19/2018 08/19/2018 In active tramadol 50 mg tablet RxNorm: 353644 1-2 Tablet(s) PO Q6 as needed 08/18/2018 No Stop Date Active Adderall 30 mg tablet RxNorm: 852313 2 Tablet(s) PO daily 08/18/2018 09/16/2018 Inactive Dexilant 60 mg capsu le, delayed release RxNorm: 443406 1 Capsule(s) PO BID 08/17/2018 08/11/2019 Ac tive atenolol 50 mg tablet RxNorm: 732223 1 Tablet(s) PO BID 08/17/2018 08/11/2019 Active Zorvolex 35 mg capsule RxNorm: 7663073 1 Capsule(s) PO TID as needed for pain 08/17/2018 02/12/2019 Ac tive ketoconazole 2 % top ical cream RxNorm: 165811 1 Gram(s) TOP BID 08/17/2018 08/26/2018 Inactive Zorvolex 35 mg capsule RxNorm: 7863047 1 Capsule(s) PO TID as needed for pain 08/17/2018 08/16/2018 In active ketoconazole 2 % top ical cream RxNorm: 265892 1 Gram(s) TOP BID 08/02/2018 08/11/2018 Inactive hydrocortisone 2.5 % topical cream RxNorm: 076352 1 Application TOP BID 07/21/2018 No Stop Date Active Adderall 30 mg tablet RxNorm: 311194 2 Tablet(s) PO daily 07/20/2018 08/17/2018 Inactive testosterone cypiona te 200 mg/mL intramuscular oil RxNorm: 413761 Milliliter(s) IM 07/15/2018 07/15/2018 In active alprazolam 1 mg tablet RxNorm: 136573 1 Tablet(s) PO TID as needed 07/12/2018 09/08/2018 Inactive hydrocodone 5 mg-fanny taminophen 325 mg tablet RxNorm: 137454 1 Tablet(s) PO TID LA N 06/30/2018 09/19/2018 In active pravastatin 40 mg ta blet RxNorm: 116582 1 Tablet(s) PO QHS 06/18/2018 09/15/2018 Inactive Adderall 30 mg tablet RxNorm: 470257 2 Tablet(s) PO daily 06/18/2018 07/17/2018 Inactive testosterone cypiona te 200 mg/mL intramuscular oil RxNorm: 401290 Milliliter(s) IM 06/17/2018 06/17/2018 In active Voltaren 1 % topical gel RxNorm: 817520 APPLY TOPICALLY TWO T IMES A DAY 06/16/2018 07/21/2018 In active Vitamin D2 50,000 un it capsule RxNorm: 9257317 1 Capsule(s) PO QW 05/21/2018 No Stop Date Active Adderall 30 mg tablet RxNorm: 026154 2 Tablet(s) PO daily 05/21/2018 06/17/2018 Inactive testosterone cypiona te 200 mg/mL intramuscular oil RxNorm: 297390 Milliliter(s) IM 05/21/2018 05/21/2018 In active testosterone cypiona te 200 mg/mL intramuscular oil RxNorm: 992273 1 Milliliter(s) IM monthly 05/20/2018 09/16/2018 Inactive testosterone cypiona te 200 mg/mL intramuscular oil RxNorm: 201320 1 Milliliter(s) IM monthly 05/20/2018 05/19/2018 Inactive hydrocodone 5 mg-fanny taminophen 325 mg tablet RxNorm: 440739 1 Tablet(s) PO TID LA N 05/20/2018 06/29/2018 In active Vitamin D2 50,000 un it capsule RxNorm: 4520197 1 Capsule(s) PO QW 05/18/2018 05/20/2018 Inactive triamcinolone aceton destin 0.025 % topical cream RxNorm: 4865192 1 Application TOP BI D 05/13/2018 No Stop Date Active Dexilant 60 mg capsu le, delayed release RxNorm: 709713 1 Capsule(s) PO BID 05/13/2018 08/16/2018 In active Zorvolex 35 mg capsule RxNorm: 8192237 1 Capsule(s) PO TID as needed for pain 05/12/2018 08/09/2018 In active Voltaren 1 % topical gel RxNorm: 472681 1 Application TOP BID 05/12/2018 06/15/2018 Inactive Singulair 10 mg tablet RxNorm: 397943 1 Tablet(s) PO daily 05/10/2018 08/07/2018 Inactive acyclovir 400 mg tablet RxNorm: 028944 1 Tablet(s) PO TID as needed take at ons et of symptoms of cold sores x 5 days 05/10/2018 No Stop Date Active paroxetine 20 mg tablet RxNorm: 4908439 2 Tablet(s) PO QHS 05/10/2018 10/31/2019 Active ProAir HFA 90 mcg/ac tuation aerosol inhaler RxNorm: 076283 1 Puff(s) INH QID as needed 05/10/2018 No Stop Date Active trazodone 100 mg tablet RxNorm: 885180 1 Tablet(s) PO QHS 05/10/2018 11/05/2018 Active baclofen 20 mg tablet RxNorm: 208097 1 Tablet(s) PO TID as needed muscle spas ms 05/10/2018 06/08/2018 In active atenolol 50 mg tablet RxNorm: 370777 1 Tablet(s) PO BID 05/10/2018 08/07/2018 Inactive triamcinolone aceton destin 0.025 % topical cream RxNorm: 5487177 1 Application TOP BI D 05/10/2018 05/12/2018 In active tramadol 50 mg tablet RxNorm: 117756 1 Tablet(s) PO TID as needed 05/10/2018 05/19/2018 Inactive Dexilant 60 mg capsu le, delayed release RxNorm: 745008 1 Capsule(s) PO daily 05/10/2018 05/12/2018 In active alprazolam 1 mg tablet RxNorm: 206161 1 Tablet(s) PO TID as needed 05/10/2018 08/06/2018 Inactive cyclobenzaprine 10 m g tablet RxNorm: 429394 1 Tablet(s) PO TID as needed muscle spasms 05/07/2018 07/12/2018 Inactive trazodone 100 mg tablet RxNorm: 411101 1 Tablet(s) PO QHS 05/07/2018 05/09/2018 Inactive Adderall 30 mg tablet RxNorm: 814079 2 Tablet(s) PO daily 04/19/2018 05/18/2018 Inactive alprazolam 1 mg tablet RxNorm: 516155 1 Tablet(s) PO BID 04/19/2018 05/09/2018 Inactive Adderall 30 mg tablet RxNorm: 650635 2 Tablet(s) PO daily 03/26/2018 04/18/2018 Inactive paroxetine 20 mg tablet RxNorm: 5280628 2 Tablet(s) PO QHS 03/15/2018 05/09/2018 Inactive Adderall 30 mg tablet RxNorm: 921321 2 Tablet(s) PO daily 02/25/2018 03/25/2018 Inactive cyclobenzaprine 10 m g tablet RxNorm: 753741 1 Tablet(s) PO TID as needed muscle spasms 02/22/2018 05/06/2018 Inactive tramadol 50 mg tablet RxNorm: 669305 1 Tablet(s) PO TID as needed 02/22/2018 03/07/2018 Inactive tramadol 50 mg tablet RxNorm: 794465 1 Tablet(s) PO TID as needed 02/22/2018 02/21/2018 Inactive trazodone 100 mg tablet RxNorm: 859903 1 Tablet(s) PO QHS 02/03/2018 05/03/2018 Inactive trazodone 100 mg tablet RxNorm: 148105 1 Tablet(s) PO QHS 02/03/2018 02/02/2018 Inactive Adderall 30 mg tablet RxNorm: 927562 2 Tablet(s) PO daily 01/27/2018 02/18/2018 Inactive acyclovir 400 mg tablet RxNorm: 526707 1 Tablet(s) PO TID as needed take at ons et of symptoms of cold sores x 5 days 01/15/2018 05/09/2018 Inactive Bactrim DS 800 mg-16 0 mg tablet RxNorm: 407076 1 Tablet(s) PO BID 01/11/2018 01/17/2018 Inactive Bactrim DS 800 mg-16 0 mg tablet RxNorm: 065239 1 Tablet(s) PO BID 01/11/2018 01/10/2018 Inactive Dexilant 60 mg capsu le, delayed release RxNorm: 495673 1 Capsule(s) PO daily 12/23/2017 05/09/2018 In active Dexilant 60 mg capsu le, delayed release RxNorm: 269487 1 Capsule(s) PO daily 12/23/2017 12/22/2017 In active atenolol 50 mg tablet RxNorm: 026119 1 Tablet(s) PO BID 12/15/2017 05/09/2018 Inactive alprazolam 1 mg tablet RxNorm: 089651 1-1.5 Tablet(s) PO daily 12/15/2017 04/18/2018 Inactive ceftriaxone 500 mg s olution for injection RxNorm: 5279157 Inj 08/03/2015 08/03/2015 Inactive paroxetine 20 mg tablet RxNorm: 6857156 2 Tablet(s) PO QHS 08/01/2015 10/29/2015 Inactive pravastatin 40 mg ta blet RxNorm: 450533 1/2 Tablet(s) PO QHS 08/01/2015 12/14/2017 Inactive Trazadone 100mg 100 mg RxNorm: 1 PO daily 08/01/2015 11/27/2015 Inactive Trazadone 100mg 100 mg RxNorm: 1 PO daily 08/01/2015 05/04/2018 Inactive atenolol 50 mg tablet RxNorm: 491294 1 Tablet(s) PO daily 08/01/2015 10/29/2015 Inactive ibuprofen 800 mg tablet RxNorm: 676914 1 Tablet(s) PO BID -TID No Start Date Active Zyrtec 10 mg tablet RxNorm: 7359274 1 Tablet(s) PO daily No Start Date Active pravastatin 40 mg ta blet RxNorm: 856228 1/2 Tablet(s) PO QHS No Start Date 07/31/2015 Inactive Benadryl Allergy 25 mg tablet RxNorm: 2262068 1 Tablet(s) PO daily No Start Date 07/19/2018 Inactive Adderall 30 mg tablet RxNorm: 320399 2 Tablet(s) PO daily No Start Date 01/26/2018 Inactive Aspirin Low Dose 81 mg tablet,delayed release RxNorm: 524690 1 Tablet(s) PO BID No Start Date 07/19/2018 Inactive Singulair 10 mg tablet RxNorm: 793260 1 Tablet(s) PO daily No Start Date 05/09/2018 Inactive cyclobenzaprine 10 m g tablet RxNorm: 449645 1 Tablet(s) PO TID as needed muscle spasms No Start Date 02/21/2018 Inactive Trazadone 100mg 100 mg RxNorm: 1 PO daily No Start Date 07/31/2015 Inactive hydrocortisone 2.5 % topical cream RxNorm: 760789 1 Application TOP BID No Start Date 07/20/2018 Inactive alprazolam 1 mg tablet RxNorm: 797388 2 Tablet(s) PO daily No Start Date 12/14/2017 Inactive tramadol 50 mg tablet RxNorm: 152860 1-2 Tablet(s) PO Q6 as needed No Start Date 08/17/2018 Inactive Vitamin D2 50,000 un it capsule RxNorm: 6210534 1 Capsule(s) PO QW No Start Date 05/17/2018 Inactive pantoprazole 40 mg t ablet,delayed release RxNorm: 395289 1 Tablet(s) PO BID No Start Date 12/22/2017 Inactive atenolol 50 mg tablet RxNorm: 557711 1 Tablet(s) PO daily No Start Date 07/31/2015 Inactive paroxetine 20 mg tablet RxNorm: 233891 2 Tablet(s) PO QHS No Start Date 07/31/2015 Inactive Medication Administered Medication Codes Instruc tions Start Date Status testosterone cypionate 200 mg/mL intramuscular oil RxNorm: 990931 Milliliter 09/28/2018 Active testosterone cypionate 200 mg/mL intramuscular oil RxNorm: 326132 Milliliter 09/16/2018 No longer Active testosterone cypionate 200 mg/mL intramuscular oil RxNorm: 672437 1Milliliter 09/02/2018 No longer Active testosterone cypionate 200 mg/mL intramuscular oil RxNorm: 874941 Milliliter 08/19/2018 No longer Active testosterone cypionate 200 mg/mL intramuscular oil RxNorm: 167803 Milliliter 07/15/2018 No longer Active testosterone cypionate 200 mg/mL intramuscular oil RxNorm: 638398 Milliliter 06/17/2018 No longer Active testosterone cypionate 200 mg/mL intramuscular oil RxNorm: 096640 Milliliter 05/21/2018 No longer Active ceftriaxone 500 mg solution for injection RxNorm: 5822006 08/03/2015 No longer A ctive Immunizations Vaccine [...] Item Item Code Result Date Testosterone Serum 905359 TESTOSTERONE 44.1 ng/dL 08/18/2018 Hemoglobin 960823 WBC 7.62 thou/uL 08/17/2018 Hemoglobin 490334 RBC 5.23 mil/uL 08/17/2018 Hemoglobin 541713 HEMOGL OBIN 15.0 g/dL 08/17/2018 Hemoglobin 387508 HEMATO CRIT 45.0 % 08/17/2018 Hemoglobin 582659 MCV 86.0 fL 08/17/2018 Hemoglobin 739182 MCH 28.7 pg 08/17/2018 Hemoglobin 782129 MCHC 33.3 g/dL 08/17/2018 Hemoglobin 554660 RDW-CV 12.9 % 08/17/2018 Hemoglobin 650921 PLATEL ET COUNT 313 thou/uL 08/17/2018 Hematocrit 254234 WBC 7.62 thou/uL 08/17/2018 Hematocrit 605199 RBC 5.23 mil/uL 08/17/2018 Hematocrit 398222 HEMOGL OBIN 15.0 g/dL 08/17/2018 Hematocrit 938514 HEMATO CRIT 45.0 % 08/17/2018 Hematocrit 354849 MCV 86.0 fL 08/17/2018 Hematocrit 899706 MCH 28.7 pg 08/17/2018 Hematocrit 837900 MCHC 33.3 g/dL 08/17/2018 Hematocrit 606032 RDW-CV 12.9 % 08/17/2018 Hematocrit 447620 PLATEL ET COUNT 313 thou/uL 08/17/2018 Culture Mrsa 670688 MRSA CULTURE SEE NOTES 06/21/2018 Comp. Metabolic Panel (14) 65391 GLUCOSE 101 mg/dL 06/18/2018 Comp. Metabolic Panel (14) 41208 BUN 18 mg/dL 06/18/2018 Comp. Metabolic Panel (14) 31766 CREATININE 0.99 mg/dL 06/18/2018 Comp. Metabolic Panel (14) 75113 SODIUM 141 mmol/L 06/18/2018 Comp. Metabolic Panel (14) 11223 POTASSIUM 4.3 mmol/L 06/18/2018 Comp. Metabolic Panel (14) 04349 CHLORIDE 103 mmol/L 06/18/2018 Comp. Metabolic Panel (14) 85050 CARBON DIOXIDE 23 mmol/L 06/18/2018 Comp. Metabolic Panel (14) 41941 CALCIUM 9.8 mg/dL 06/18/2018 Comp. Metabolic Panel (14) 77016 TOTAL PROTEIN 7.1 g/dL 06/18/2018 Comp. Metabolic Panel (14) 23823 ALBUMIN 5.2 g/dL 06/18/2018 Comp. Metabolic Panel (14) 97869 ALKALINE PHOSPHATASE 65 U/L 06/18/2018 Comp. Metabolic Panel (14) 52621 TOTAL BILIRUBIN 0.6 mg/dL 06/18/2018 Comp. Metabolic Panel (14) 62879 SGOT (AST) 21 U/L 06/18/2018 Comp. Metabolic Panel (14) 94334 SGPT (ALT) 24 U/L 06/18/2018 Comp. Metabolic Panel (14) 24894 eGFR (mL/min/1.73m2) 115 06/18/2018 Comp. Metabolic Panel (14) 23074 INTERPRETATION 06/18/2018 Cbc With Differential/Platelet 59525 WBC 4.55 thou/uL 8 Cbc With Differential/Platelet 57508 RBC 5.13 mil/uL 06/18/2018 Cbc With Differential/Platelet 37950 HEMOGLOBIN 14.4 g/dL 06/18/2018 Cbc With Differential/Platelet 94507 HEMATOCRIT 44.1 % 06/18/2018 Cbc With Differential/Platelet 55276 MCV 85.9 fL 06/18/2018 Cbc With Differential/Platelet 45658 MCH 28.1 pg 06/18/2018 Cbc With Differential/Platelet 81829 MCHC 32.7 g/dL 06/18/2018 Cbc With Differential/Platelet 79977 RDW-CV 13.4 % 06/18/2018 Cbc With Differential/Platelet 33642 PLATELET COUNT 287 thou/uL 06/18/2018 Cbc With Differential/Platelet 90924 NEUTROPHIL % 53.9 % 06/18/2018 Cbc With Differential/Platelet 52223 LYMPHOCYTE % 36.1 % 06/18/2018 Cbc With Differential/Platelet 45038 MONOCYTE % 7.4 % 06/18/2018 Cbc With Differential/Platelet 67226 EOS % 1.9 % 06/18/2018 Cbc With Differential/Platelet 17557 BASO % 0.8 % 06/18/2018 Cbc With Differential/Platelet 06813 NEUTROPHIL ABS # 2.45 thou/uL 06/18/2018 Cbc With Differential/Platelet 57989 LYMPH ABS # 1.64 thou/uL 06/18/2018 Cbc With Differential/Platelet 14354 MONOCYTE ABS # 0.34 thou/uL 06/18/2018 Cbc With Differential/Platelet 63884 EOS ABS # 0.09 thou/uL 8 Cbc With Differential/Platelet 61995 BASO ABS # 0.04 thou/uL 06/18/2018 Review [...] Procedure Codes Date THER/PROPH/DIAG INJ SC/IM CPT-4: 15277 09/28/2018 THER/PROPH/DIAG INJ SC/IM CPT-4: 15906 09/16/2018 THER/PROPH/DIAG INJ SC/IM CPT-4: 58554 09/02/2018 THER/PROPH/DIAG INJ SC/IM CPT-4: 85891 08/19/2018 IMMUNIZATION ADMIN CPT- 4: 04709 08/02/2018 FLU VAC NO PRSV 4 VA L 3 YRS+ CPT-4: 02093 08/02/2018 THER/PROPH/DIAG INJ SC/IM CPT-4: 93791 07/15/2018 THER/PROPH/DIAG INJ SC/IM CPT-4: 27554 06/17/2018 THER/PROPH/DIAG INJ SC/IM CPT-4: 85418 05/21/2018 THER/PROPH/DIAG INJ SC/IM CPT-4: 86875 08/03/2015 ROCEPHIN, PER 250 MG CPT-4: J0696 08/03/2015 Vital Signs Date Vital 09/24/2018 Blood Pressure 1: 140/82 Code: 8480-6 BMI: 36.0 Code: 69917-4 Heart Rate 1: 86 bpm Height: 5'7" SpO2: 98% Temperature: 37.1 (C ) / 98.7 (F) Weight: 230 lbs 08/16/2018 Blood Pressure 1: 148/82 Code: 8480-6 Blood Pressure 2: 157/92 Code: 8480-6 BMI: 35.9 Code: 18530-9 Heart Rate 1: 72 bpm Height: 5'7" SpO2: 96% Weight: 229 lbs 08/02/2018 Blood Pressure 1: 142/86 Code: 8480-6 BMI: 35.2 Code: 95964-9 Heart Rate 1: 101 bpm Height: 5'7" SpO2: 97% Weight: 225 lbs 05/31/2018 Blood Pressure 1: 134/82 Code: 8480-6 BMI: 35.4 Code: 17035-9 Heart Rate 1: 91 bpm Height: 5'7" SpO2: 96% Weight: 226 lbs 05/20/2018 Blood Pressure 1: 160/100 Code: 8480-6 BMI: 35.2 Code: 36881-6 Heart Rate 1: 89 bpm Height: 5'7" SpO2: 98% Weight: 225 lbs 05/10/2018 Blood Pressure 1: 124/70 Code: 8480-6 BMI: 35.1 Code: 83578-8 Heart Rate 1: 93 bpm Height: 5'7" SpO2: 99% Weight: 224 lbs 01/15/2018 Blood Pressure 1: 142/92 Code: 8480-6 BMI: 36.3 Code: 90871-9 Heart Rate 1: 77 bpm Height: 5'7" SpO2: 98% Weight: 232 lbs 12/15/2017 Blood Pressure 1: 156/98 Code: 8480-6 BMI: 36.2 Code: 03049-0 Heart Rate 1: 87 bpm Height: 5'7" [...] Encounters Encounter Performer Loca tion Codes Date 68952 EST. PATIENT, LEVEL III Diagnosis: Acute upper respiratory infection, unspecified[ICD10: J06.9] Diagnosis: Other allergic rhinitis[ICD10: J30.89] [facility] CPT-4: 97191 09/24/2018 [id number]) 97023 EST. 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 P ATIENT, LEVEL IV Diagnosis: Essential (primary) hypertension[ICD10: I10] Diagnosis: Cervicalgia[ICD10: M54.2] Radha Gonzalez MD, [facility] CPT-4: 12742 05/31/2018 ([id number]) 86370 EST. 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 09/24/2018 Appointment: Sonia Potter WPtel: [address] [place], [place] [address] (15 min) Moderate 09/24/2018 Patient Education: Patient [...] home. Multiple symptoms - referral to [facility] - appt in September 30, 2018. 08/16/2018 Appointment: Radha Gonzalez WPtel: [facility] (15 min) Moderate 08/16/2018 Patient Education: [...] home. Multiple symptoms - referral to [facility] - rashes, hypogonadism, optic neuritis - all points to possible autoimmune syndrome. Spinal stenosis - of thoracic region - pt to talk to Dr. Dunaway about referral to a different specialist for his mid- back. Hypogonadism - continue with testosterone. Flu shot given today in clinic. 08/02/2018 Appointment: Radha Gonzalez WPtel: [phone] [facility] (15 min) Moderate 08/02/2018 Patient Education: Patient Medication Summary Completed 08/02/2018 Care Plan: Referral Order SNOMED-CT : 801079858 Pending 08/02/2018 Appointment: Injection 07/15/2018 Patient Education: [...] - [facility] I have also recommended a Referral to Dr. Dunaway. I have called and talked to Dr. Dunaway - he looked at the pt's imaging and agrees that getting the pt in to be seen soon would be a preferred option. 05/31/2018 Appointment: [facility] Gonzalez [facility]el[facility] [phone] [facility] (15 min) Moderate 05/31/2018 Patient Education: Patient Medication Summary Completed 05/31/2018 Care Plan: Referral Order SNOMED-CT : 290682089 Pending 05/31/2018 Care Plan: Referral Order SNOMED-CT : 821333282 Pending 05/31/2018 Appointment: Injection 05/21/2018 Patient Education: Patient Medication Summary Completed 05/21/2018 Care Plan: Referral Order SNOMED-CT : 572019963 Pending 05/21/2018 Visit Plan: Cervical and thoracic s tenosis with spinal cord compression -refer for appt with Dr Marr -rx for hydrocodone for pain-start gabapentin at bedtime Soft tissue lesion-left chest-schedule CTfor further evaluation HTN-elevated today-hold adderall-monitor blood pressure 05/20/2018 Appointment: Hannah Simons WPtel: [phone] [phone] [place] (15 min) [...] order this. 05/10/2018 Appointment: Sonia Potter WPtel: [facility] [place] (15 min) Moderate 05/10/2018 Patient Education: Patient Medication Summary Completed 05/10/2018 Visit Plan: Sleep apnea - rx for cp ap - actually autopap was recommended and pt given rx today. HTN - referral to dr. kapoor - pt needs stress testing. 01/15/2018 Appointment: Radha Gonzalez WPtel: [phone] [facility] [place] (15 min) Moderate 01/15/2018 Patient Education: Patient Medication Summary Completed 01/15/2018 Care Plan: Referral Order SNOMED-CT : 168704871 Pending 01/15/2018 Visit Plan: Well Adult - [...] one month. 12/15/2017 Appointment: Radha Gonzalez WPtel: [facility] New Patient 12/15/2017 Patient Education: Patient Medication Summary Completed 12/15/2017 Care Plan: CHEST X-RAY 2VW FRONTAL&LATL LOINC : 74704-0 Pending 12/15/2017 Appointment: Radha Gonzalez WPtel: [facility] (15 min) Moderate 12/08/2017 Appointment: (S) [...] Ordering Provider 08/03 Referral info faxed to [place]. Patient informed to be expecting a call from them with appt info Appointment Requested Referral: External, Ordering Provider Referral Appointment Requested Referral: External, Ordering Provider I called today; they will call him to schedule. Completed Referral: Armani Dunaway Referral Appointment Requested Referral: Mayte Kapoor Referral Appointment Requested Referral: [facility] [phone] [facility] [place] Referral Appointment Requested Referral: External, Ordering [...] home. Multiple symptoms - referral to [facility] - rashes, hypogonadism, optic neuritis - [...] home. Multiple symptoms - referral to [facility] - appt in September 30, 2018. . steri strip placed on thumb of right hand - antibiotic shot given to patient and rx for keflex 500mg qid x 10 days given to the patient to fill prior to his trip to [place] will refill meds for 90 days Will [...] - [facility]. I have also recommended a Referral to Dr. Dunaway. I have called and talked to Dr. Dunaway - he looked at the pt's imaging and agrees that getting the pt in to be seen soon would be a preferred option.
--- OUTSIDE RECORDS SUMMARY | 2020-04-28 01:03 | XMS REPORT | CCD ---
Author Author Nilton Gonzalez Organization Radha Gonzalez MD, [facility] Address [address] [place] [address] Phone Care Team Providers Care Advanced Practice Nurse Psychotherapist Name Role Phone PP Unavailable CCM Unavailable Summary Purpose Interface Exchange Insurance Providers Payer name Policy type / Coverage type Covered republican ID Effective Begin Date Effective End Date CORESOURCES Commercial Insurance [id number] 2017 Unknown Family history Brother Diagnosis Age At Onset Alcoholism Unknown Father Diagnosis Age At Onset Hypercholesterolemia Unknown Social History Social History Element Codes Description Effective Dates Marital status Unknown S chanda 12/15/2017 Number of children Unknown 1 12/15/2017 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[employer] 12/15/[address]: 031315460 Never smoker 12/15/[address]: 585651 Currently drinks alcohol <1 per week 12/15/2017 [...] 724.1 ICD-10: M54.6 05/10/2018 Active Encounter for [facility] adult medical examination with abnormal findings ICD-9: V70.0 ICD-10: Z00.01 12/15/2017 Active Laceration of thumb ICD- 9: 883.0 08/02/2015 Active Medications Medication Codes Instruc tions Start Date Stop Date Sta tus Fill Instructions Tamiflu 75 mg capsule RxNorm: 670803 1 Capsule(s) PO BID 09/24/2018 09/28/2018 Active Adderall 30 mg tablet RxNorm: 170450 2 Tablet(s) PO daily 09/20/2018 10/19/2018 Active hydrocodone 5 mg-fanny taminophen 325 mg tablet RxNorm: 178205 1 Tablet(s) PO TID NM N 09/20/2018 No Stop Date Active testosterone cypiona te 200 mg/mL intramuscular oil RxNorm: 615017 Milliliter(s) IM 09/16/2018 09/16/2018 In active testosterone cypiona te 200 mg/mL intramuscular oil RxNorm: 629223 1 Milliliter(s) IM 09/02/2018 09/02/2018 Inactive testosterone cypiona te 200 mg/mL intramuscular oil RxNorm: 428637 Milliliter(s) IM 08/19/2018 08/19/2018 In active tramadol 50 mg tablet RxNorm: 126835 1-2 Tablet(s) PO Q6 as needed 08/18/2018 No Stop Date Active Adderall 30 mg tablet RxNorm: 563767 2 Tablet(s) PO daily 08/18/2018 09/16/2018 Inactive Dexilant 60 mg capsu le, delayed release RxNorm: 238172 1 Capsule(s) PO BID 08/17/2018 08/11/2019 Ac tive atenolol 50 mg tablet RxNorm: 221935 1 Tablet(s) PO BID 08/17/2018 08/11/2019 Active Zorvolex 35 mg capsule RxNorm: 8366487 1 Capsule(s) PO TID as needed for pain 08/17/2018 02/12/2019 Ac tive ketoconazole 2 % top ical cream RxNorm: 033348 1 Gram(s) TOP BID 08/17/2018 08/26/2018 Inactive Zorvolex 35 mg capsule RxNorm: 8662728 1 Capsule(s) PO TID as needed for pain 08/17/2018 08/16/2018 In active ketoconazole 2 % top ical cream RxNorm: 422346 1 Gram(s) TOP BID 08/02/2018 08/11/2018 Inactive hydrocortisone 2.5 % topical cream RxNorm: 334083 1 Application TOP BID 07/21/2018 No Stop Date Active Adderall 30 mg tablet RxNorm: 576524 2 Tablet(s) PO daily 07/20/2018 08/17/2018 Inactive testosterone cypiona te 200 mg/mL intramuscular oil RxNorm: 422928 Milliliter(s) IM 07/15/2018 07/15/2018 In active alprazolam 1 mg tablet RxNorm: 264274 1 Tablet(s) PO TID as needed 07/12/2018 09/08/2018 Inactive hydrocodone 5 mg-fanny taminophen 325 mg tablet RxNorm: 510898 1 Tablet(s) PO TID NM N 06/30/2018 09/19/2018 In active pravastatin 40 mg ta blet RxNorm: 985493 1 Tablet(s) PO QHS 06/18/2018 09/15/2018 Inactive Adderall 30 mg tablet RxNorm: 620885 2 Tablet(s) PO daily 06/18/2018 07/17/2018 Inactive testosterone cypiona te 200 mg/mL intramuscular oil RxNorm: 442636 Milliliter(s) IM 06/17/2018 06/17/2018 In active Voltaren 1 % topical gel RxNorm: 431091 APPLY TOPICALLY TWO T IMES A DAY 06/16/2018 07/21/2018 In active Vitamin D2 50,000 un it capsule RxNorm: 6587014 1 Capsule(s) PO QW 05/21/2018 No Stop Date Active Adderall 30 mg tablet RxNorm: 784422 2 Tablet(s) PO daily 05/21/2018 06/17/2018 Inactive testosterone cypiona te 200 mg/mL intramuscular oil RxNorm: 610702 Milliliter(s) IM 05/21/2018 05/21/2018 In active testosterone cypiona te 200 mg/mL intramuscular oil RxNorm: 352723 1 Milliliter(s) IM monthly 05/20/2018 09/16/2018 Inactive testosterone cypiona te 200 mg/mL intramuscular oil RxNorm: 839008 1 Milliliter(s) IM monthly 05/20/2018 05/19/2018 Inactive hydrocodone 5 mg-fanny taminophen 325 mg tablet RxNorm: 597704 1 Tablet(s) PO TID NM N 05/20/2018 06/29/2018 In active Vitamin D2 50,000 un it capsule RxNorm: 3639973 1 Capsule(s) PO QW 05/18/2018 05/20/2018 Inactive triamcinolone aceton destin 0.025 % topical cream RxNorm: 9626982 1 Application TOP BI D 05/13/2018 No Stop Date Active Dexilant 60 mg capsu le, delayed release RxNorm: 152916 1 Capsule(s) PO BID 05/13/2018 08/16/2018 In active Zorvolex 35 mg capsule RxNorm: 9414953 1 Capsule(s) PO TID as needed for pain 05/12/2018 08/09/2018 In active Voltaren 1 % topical gel RxNorm: 086947 1 Application TOP BID 05/12/2018 06/15/2018 Inactive Singulair 10 mg tablet RxNorm: 307131 1 Tablet(s) PO daily 05/10/2018 08/07/2018 Inactive acyclovir 400 mg tablet RxNorm: 627862 1 Tablet(s) PO TID as needed take at ons et of symptoms of cold sores x 5 days 05/10/2018 No Stop Date Active paroxetine 20 mg tablet RxNorm: 1288299 2 Tablet(s) PO QHS 05/10/2018 10/31/2019 Active ProAir HFA 90 mcg/ac tuation aerosol inhaler RxNorm: 176834 1 Puff(s) INH QID as needed 05/10/2018 No Stop Date Active trazodone 100 mg tablet RxNorm: 143701 1 Tablet(s) PO QHS 05/10/2018 11/05/2018 Active baclofen 20 mg tablet RxNorm: 392664 1 Tablet(s) PO TID as needed muscle spas ms 05/10/2018 06/08/2018 In active atenolol 50 mg tablet RxNorm: 324417 1 Tablet(s) PO BID 05/10/2018 08/07/2018 Inactive triamcinolone aceton destin 0.025 % topical cream RxNorm: 5414916 1 Application TOP BI D 05/10/2018 05/12/2018 In active tramadol 50 mg tablet RxNorm: 627719 1 Tablet(s) PO TID as needed 05/10/2018 05/19/2018 Inactive Dexilant 60 mg capsu le, delayed release RxNorm: 794052 1 Capsule(s) PO daily 05/10/2018 05/12/2018 In active alprazolam 1 mg tablet RxNorm: 918707 1 Tablet(s) PO TID as needed 05/10/2018 08/06/2018 Inactive cyclobenzaprine 10 m g tablet RxNorm: 869685 1 Tablet(s) PO TID as needed muscle spasms 05/07/2018 07/12/2018 Inactive trazodone 100 mg tablet RxNorm: 243787 1 Tablet(s) PO QHS 05/07/2018 05/09/2018 Inactive Adderall 30 mg tablet RxNorm: 732143 2 Tablet(s) PO daily 04/19/2018 05/18/2018 Inactive alprazolam 1 mg tablet RxNorm: 965615 1 Tablet(s) PO BID 04/19/2018 05/09/2018 Inactive Adderall 30 mg tablet RxNorm: 185654 2 Tablet(s) PO daily 03/26/2018 04/18/2018 Inactive paroxetine 20 mg tablet RxNorm: 8201506 2 Tablet(s) PO QHS 03/15/2018 05/09/2018 Inactive Adderall 30 mg tablet RxNorm: 130461 2 Tablet(s) PO daily 02/25/2018 03/25/2018 Inactive cyclobenzaprine 10 m g tablet RxNorm: 177976 1 Tablet(s) PO TID as needed muscle spasms 02/22/2018 05/06/2018 Inactive tramadol 50 mg tablet RxNorm: 418410 1 Tablet(s) PO TID as needed 02/22/2018 03/07/2018 Inactive tramadol 50 mg tablet RxNorm: 230802 1 Tablet(s) PO TID as needed 02/22/2018 02/21/2018 Inactive trazodone 100 mg tablet RxNorm: 137217 1 Tablet(s) PO QHS 02/03/2018 05/03/2018 Inactive trazodone 100 mg tablet RxNorm: 055829 1 Tablet(s) PO QHS 02/03/2018 02/02/2018 Inactive Adderall 30 mg tablet RxNorm: 871923 2 Tablet(s) PO daily 01/27/2018 02/18/2018 Inactive acyclovir 400 mg tablet RxNorm: 824575 1 Tablet(s) PO TID as needed take at ons et of symptoms of cold sores x 5 days 01/15/2018 05/09/2018 Inactive Bactrim DS 800 mg-16 0 mg tablet RxNorm: 202392 1 Tablet(s) PO BID 01/11/2018 01/17/2018 Inactive Bactrim DS 800 mg-16 0 mg tablet RxNorm: 491164 1 Tablet(s) PO BID 01/11/2018 01/10/2018 Inactive Dexilant 60 mg capsu le, delayed release RxNorm: 493969 1 Capsule(s) PO daily 12/23/2017 05/09/2018 In active Dexilant 60 mg capsu le, delayed release RxNorm: 306817 1 Capsule(s) PO daily 12/23/2017 12/22/2017 In active atenolol 50 mg tablet RxNorm: 176684 1 Tablet(s) PO BID 12/15/2017 05/09/2018 Inactive alprazolam 1 mg tablet RxNorm: 353656 1-1.5 Tablet(s) PO daily 12/15/2017 04/18/2018 Inactive ceftriaxone 500 mg s olution for injection RxNorm: 3932119 Inj 08/03/2015 08/03/2015 Inactive paroxetine 20 mg tablet RxNorm: 3071092 2 Tablet(s) PO QHS 08/01/2015 10/29/2015 Inactive pravastatin 40 mg ta blet RxNorm: 448738 1/2 Tablet(s) PO QHS 08/01/2015 12/14/2017 Inactive Trazadone 100mg 100 mg RxNorm: 1 PO daily 08/01/2015 11/27/2015 Inactive Trazadone 100mg 100 mg RxNorm: 1 PO daily 08/01/2015 05/04/2018 Inactive atenolol 50 mg tablet RxNorm: 886593 1 Tablet(s) PO daily 08/01/2015 10/29/2015 Inactive ibuprofen 800 mg tablet RxNorm: 284622 1 Tablet(s) PO BID -TID No Start Date Active Zyrtec 10 mg tablet RxNorm: 3470209 1 Tablet(s) PO daily No Start Date Active pravastatin 40 mg ta blet RxNorm: 174950 1/2 Tablet(s) PO QHS No Start Date 07/31/2015 Inactive Benadryl Allergy 25 mg tablet RxNorm: 1207757 1 Tablet(s) PO daily No Start Date 07/19/2018 Inactive Adderall 30 mg tablet RxNorm: 448975 2 Tablet(s) PO daily No Start Date 01/26/2018 Inactive Aspirin Low Dose 81 mg tablet,delayed release RxNorm: 211404 1 Tablet(s) PO BID No Start Date 07/19/2018 Inactive Singulair 10 mg tablet RxNorm: 198775 1 Tablet(s) PO daily No Start Date 05/09/2018 Inactive cyclobenzaprine 10 m g tablet RxNorm: 557269 1 Tablet(s) PO TID as needed muscle spasms No Start Date 02/21/2018 Inactive Trazadone 100mg 100 mg RxNorm: 1 PO daily No Start Date 07/31/2015 Inactive hydrocortisone 2.5 % topical cream RxNorm: 716111 1 Application TOP BID No Start Date 07/20/2018 Inactive alprazolam 1 mg tablet RxNorm: 384501 2 Tablet(s) PO daily No Start Date 12/14/2017 Inactive tramadol 50 mg tablet RxNorm: 010325 1-2 Tablet(s) PO Q6 as needed No Start Date 08/17/2018 Inactive Vitamin D2 50,000 un it capsule RxNorm: 2674397 1 Capsule(s) PO QW No Start Date 05/17/2018 Inactive pantoprazole 40 mg t ablet,delayed release RxNorm: 466506 1 Tablet(s) PO BID No Start Date 12/22/2017 Inactive atenolol 50 mg tablet RxNorm: 689832 1 Tablet(s) PO daily No Start Date 07/31/2015 Inactive paroxetine 20 mg tablet RxNorm: 476509 2 Tablet(s) PO QHS No Start Date 07/31/2015 Inactive Medication Administered Medication Codes Instruc tions Start Date Status testosterone cypionate 200 mg/mL intramuscular oil RxNorm: 667919 Milliliter 09/16/2018 No longer Active testosterone cypionate 200 mg/mL intramuscular oil RxNorm: 827182 1Milliliter 09/02/2018 No longer Active testosterone cypionate 200 mg/mL intramuscular oil RxNorm: 001089 Milliliter 08/19/2018 No longer Active testosterone cypionate 200 mg/mL intramuscular oil RxNorm: 966045 Milliliter 07/15/2018 No longer Active testosterone cypionate 200 mg/mL intramuscular oil RxNorm: 461968 Milliliter 06/17/2018 No longer Active testosterone cypionate 200 mg/mL intramuscular oil RxNorm: 269808 Milliliter 05/21/2018 No longer Active ceftriaxone 500 mg solution for injection RxNorm: 6678199 08/03/2015 No longer A ctive Immunizations Vaccine [...] Item Item Code Result Date Testosterone Serum 949808 TESTOSTERONE 44.1 ng/dL 08/18/2018 Hemoglobin 20020721 WBC 7.62 thou/uL 08/17/2018 Hemoglobin 20020721 RBC 5.23 mil/uL 08/17/2018 Hemoglobin 20020721 HEMOGL OBIN 15.0 g/dL 08/17/2018 Hemoglobin 20020721 HEMATO CRIT 45.0 % 08/17/2018 Hemoglobin 405211 MCV 86.0 fL 08/17/2018 Hemoglobin 480073 MCH 28.7 pg 08/17/2018 Hemoglobin 470671 MCHC 33.3 g/dL 08/17/2018 Hemoglobin 031822 RDW-CV 12.9 % 08/17/2018 Hemoglobin 347060 PLATEL ET COUNT 313 thou/uL 08/17/2018 Hematocrit 695492 WBC 7.62 thou/uL 08/17/2018 Hematocrit 150753 RBC 5.23 mil/uL 08/17/2018 Hematocrit 411890 HEMOGL OBIN 15.0 g/dL 08/17/2018 Hematocrit 316912 HEMATO CRIT 45.0 % 08/17/2018 Hematocrit 270506 MCV 86.0 fL 08/17/2018 Hematocrit 748794 MCH 28.7 pg 08/17/2018 Hematocrit 194844 MCHC 33.3 g/dL 08/17/2018 Hematocrit 483863 RDW-CV 12.9 % 08/17/2018 Hematocrit 526383 PLATEL ET COUNT 313 thou/uL 08/17/2018 Culture Mrsa 073853 MRSA CULTURE SEE NOTES 06/21/2018 Comp. Metabolic Panel (14) 00987 GLUCOSE 101 mg/dL 06/18/2018 Comp. Metabolic Panel (14) 64823 BUN 18 mg/dL 06/18/2018 Comp. Metabolic Panel (14) 39437 CREATININE 0.99 mg/dL 06/18/2018 Comp. Metabolic Panel (14) 20506 SODIUM 141 mmol/L 06/18/2018 Comp. Metabolic Panel (14) 24928 POTASSIUM 4.3 mmol/L 06/18/2018 Comp. Metabolic Panel (14) 32926 CHLORIDE 103 mmol/L 06/18/2018 Comp. Metabolic Panel (14) 09024 CARBON DIOXIDE 23 mmol/L 06/18/2018 Comp. Metabolic Panel (14) 88725 CALCIUM 9.8 mg/dL 06/18/2018 Comp. Metabolic Panel (14) 08454 TOTAL PROTEIN 7.1 g/dL 06/18/2018 Comp. Metabolic Panel (14) 37250 ALBUMIN 5.2 g/dL 06/18/2018 Comp. Metabolic Panel (14) 43084 ALKALINE PHOSPHATASE 65 U/L 06/18/2018 Comp. Metabolic Panel (14) 39227 TOTAL BILIRUBIN 0.6 mg/dL 06/18/2018 Comp. Metabolic Panel (14) 18945 SGOT (AST) 21 U/L 06/18/2018 Comp. Metabolic Panel (14) 75497 SGPT (ALT) 24 U/L 06/18/2018 Comp. Metabolic Panel (14) 62774 eGFR (mL/min/1.73m2) 115 06/18/2018 Comp. Metabolic Panel (14) 38374 INTERPRETATION 06/18/2018 Cbc With Differential/Platelet 21138 WBC 4.55 thou/uL 8 Cbc With Differential/Platelet 12674 RBC 5.13 mil/uL 06/18/2018 Cbc With Differential/Platelet 17193 HEMOGLOBIN 14.4 g/dL 06/18/2018 Cbc With Differential/Platelet 29144 HEMATOCRIT 44.1 % 06/18/2018 Cbc With Differential/Platelet 20357 MCV 85.9 fL 06/18/2018 Cbc With Differential/Platelet 37640 MCH 28.1 pg 06/18/2018 Cbc With Differential/Platelet 09473 MCHC 32.7 g/dL 06/18/2018 Cbc With Differential/Platelet 39919 RDW-CV 13.4 % 06/18/2018 Cbc With Differential/Platelet 82570 PLATELET COUNT 287 thou/uL 06/18/2018 Cbc With Differential/Platelet 62757 NEUTROPHIL % 53.9 % 06/18/2018 Cbc With Differential/Platelet 39370 LYMPHOCYTE % 36.1 % 06/18/2018 Cbc With Differential/Platelet 88633 MONOCYTE % 7.4 % 06/18/2018 Cbc With Differential/Platelet 46628 EOS % 1.9 % 06/18/2018 Cbc With Differential/Platelet 07608 BASO % 0.8 % 06/18/2018 Cbc With Differential/Platelet 77466 NEUTROPHIL ABS # 2.45 thou/uL 06/18/2018 Cbc With Differential/Platelet 26730 LYMPH ABS # 1.64 thou/uL 06/18/2018 Cbc With Differential/Platelet 90943 MONOCYTE ABS # 0.34 thou/uL 06/18/2018 Cbc With Differential/Platelet 41917 EOS ABS # 0.09 thou/uL 8 Cbc With Differential/Platelet 25971 BASO ABS # 0.04 thou/uL 06/18/2018 Review [...] Procedure Codes Date THER/PROPH/DIAG INJ SC/IM CPT-4: 07660 09/16/2018 THER/PROPH/DIAG INJ SC/IM CPT-4: 64204 09/02/2018 THER/PROPH/DIAG INJ SC/IM CPT-4: 35974 08/19/2018 IMMUNIZATION ADMIN CPT- 4: 45485 08/02/2018 FLU VAC NO PRSV 4 VA L 3 YRS+ CPT-4: 96843 08/02/2018 THER/PROPH/DIAG INJ SC/IM CPT-4: 67491 07/15/2018 THER/PROPH/DIAG INJ SC/IM CPT-4: 26038 06/17/2018 THER/PROPH/DIAG INJ SC/IM CPT-4: 44893 05/21/2018 THER/PROPH/DIAG INJ SC/IM CPT-4: 02074 08/03/2015 ROCEPHIN, PER 250 MG CPT-4: J0696 08/03/2015 Vital Signs Date Vital 09/24/2018 Blood Pressure 1: 140/82 Code: 8480-6 BMI: 36.0 Code: 97544-3 Heart Rate 1: 86 bpm Height: 5'7" SpO2: 98% Temperature: 37.1 (C ) / 98.7 (F) Weight: 230 lbs 08/16/2018 Blood Pressure 1: 148/82 Code: 8480-6 Blood Pressure 2: 157/92 Code: 8480-6 BMI: 35.9 Code: 54321-2 Heart Rate 1: 72 bpm Height: 5'7" SpO2: 96% Weight: 229 lbs 08/02/2018 Blood Pressure 1: 142/86 Code: 8480-6 BMI: 35.2 Code: 53769-5 Heart Rate 1: 101 bpm Height: 5'7" SpO2: 97% Weight: 225 lbs 05/31/2018 Blood Pressure 1: 134/82 Code: 8480-6 BMI: 35.4 Code: 63633-9 Heart Rate 1: 91 bpm Height: 5'7" SpO2: 96% Weight: 226 lbs 05/20/2018 Blood Pressure 1: 160/100 Code: 8480-6 BMI: 35.2 Code: 64866-2 Heart Rate 1: 89 bpm Height: 5'7" SpO2: 98% Weight: 225 lbs 05/10/2018 Blood Pressure 1: 124/70 Code: 8480-6 BMI: 35.1 Code: 88509-9 Heart Rate 1: 93 bpm Height: 5'7" SpO2: 99% Weight: 224 lbs 01/15/2018 Blood Pressure 1: 142/92 Code: 8480-6 BMI: 36.3 Code: 95212-9 Heart Rate 1: 77 bpm Height: 5'7" SpO2: 98% Weight: 232 lbs 12/15/2017 Blood Pressure 1: 156/98 Code: 8480-6 BMI: 36.2 Code: 85587-6 Heart Rate 1: 87 bpm Height: 5'7" [...] 01/15/2018 None vision change Quality [place] 01/15/2018 None vision change Quality lo ss [...] 12/15/2017 None vision change Quality [place] 12/15/2017 None vision change Onset and Resolution sudden in onset 12/15/2017 None vision change Onset of Symptom 3.5 weeks ago 12/15/2017 None vision change Limitation on Activities severely limits vision 12/15/2017 None vision change Triggers n o known associated factors 12/15/2017 None Advance Directives No Advance Directive data Encounters Encounter Performer Loca tion Codes Date 25948 EST. PATIENT, LEVEL III Diagnosis: Acute upper respiratory infection, unspecified[ICD10: J06.9] Diagnosis: Other allergic rhinitis[ICD10: J30.89] [facility] CPT-4: 20465 09/24/2018 ([id number] 13752 EST. 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 P ATIENT, LEVEL IV Diagnosis: Essential (primary) hypertension[ICD10: I10] Diagnosis: Cervicalgia[ICD10: M54.2] Radha Gonzalez MD, [facility] CPT-4: 24116 05/31/2018 ([id number]) 33499 EST. 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 Multiple symptoms - referral to [facility] - appt in September 30, 2018. 08/16/2018 Appointment: Radha Gonzalez WPtel: [address] [place], [place] [id number] (15 min) Moderate 08/16/2018 Patient Education: Patient [...] at home. Multiple symptoms - referral to [facility] - rashes, hypogonadism, optic neuritis - all points to possible autoimmune syndrome. Spinal stenosis - of thoracic region - pt to talk to Dr. Dunaway about referral to a different specialist for his mid- back. Hypogonadism - continue with testosterone. Flu shot given today in clinic. 08/02/2018 App[facility]ment: [facility] [phone] [facility] [place] (15 min) Moderate 08/02/2018 Patient Education: Patient Medication Summary Completed 08/02/2018 Care Plan: Referral Order SNOMED-CT : 550109160 Pending 08/02/2018 Appointment: Injection 07/15/2018 Patient Education: [...] Cervical spine stenosis - referral to [facility] physical therapy. I have also recommended a Referral to Dr. Dunaway. I have called and talked to Dr. Dunaway - he looked at the pt's imaging and agrees that getting the pt in to be seen soon would be a preferred option. 05/31/2018 Appointment: [facility] [phone] [facility] [place] (15 min) Moderate 05/31/2018 Patient Education: Patient Medication Summary Completed 05/31/2018 Care Plan: Referral Order SNOMED-CT : 718642673 Pending 05/31/2018 Care Plan: Referral Order SNOMED-CT : 511868050 Pending 05/31/2018 Appointment: Injection 05/21/2018 Patient Education: Patient Medication Summary Completed 05/21/2018 Care Plan: Referral Order SNOMED-CT : 573664971 Pending 05/21/2018 Visit Plan: Cervical and thoracic s tenosis with spinal cord compression -refer for appt with Dr Marr -rx for hydrocodone for pain-start gabapentin at bedtime Soft tissue lesion-left chest-schedule CTfor further evaluation HTN-elevated today-hold adderall-monitor blood pressure 05/20/2018 Appointment: [facility] [phone] [phone] [place] (15 min) Moderate 05/20/2018 Patient [...] this. 05/10/2018 Appointment: [facility] [phone] [facility] [place] (15 min) Moderate 05/10/2018 Patient Education: Patient Medication Summary Completed 05/10/2018 Visit Plan: Sleep apnea - rx for cp ap - actually autopap was recommended and pt given rx today. HTN - referral to dr. kapoor - pt needs stress testing. 01/15/2018 Appointment: [facility] [phone] [facility] [place] (15 min) Moderate 01/15/2018 Patient Education: Patient Medication Summary Completed 01/15/2018 Care Plan: Referral Order SNOMED-CT : 043454274 Pending 01/15/2018 Visit Plan: Well Adult - [...] Gonzalez WPtel: [phone] [id number] New Patient 12/15/2017 Patient Education: Patient Medication Summary Completed 12/15/2017 Care Plan: CHEST X-RAY 2VW FRONTAL&LATL LOINC : 87434-6 Pending 12/15/2017 Appointment: Radha Gonzalez WPtel: [phone] (15 min) Moderate 12/08/2017 Appointment: (S) [...] Ordering Provider 08/03 Referral info faxed to [facility]. Patient informed to be expecting a call from them with appt info Appointment Requested Referral: External, Ordering Provider Referral Appointment Requested Referral: External, Ordering Provider I called today; they will call him to schedule. Completed Referral: Armani Dunaway Referral Appointment Requested Referral: Mayte Kapoor Referral Appointment Requested Referral: [facility] WPtel: [phone] [facility] Referral Appointment Requested Referral: [...] at home. Multiple symptoms - referral to [facility] - rashes, hypogonadism, optic neuritis - [...] at home. Multiple symptoms - referral to [facility] - appt in September 30, 2018. [...]
[2020-04-28 01:04] LABS: ALANINE AMINOTRANSFERASE 56 U/L (0-55)
--- OUTSIDE RECORDS SUMMARY | 2020-04-28 01:04 | XMS REPORT | CCD ---
Author Author Nilton Gonzalez Organization Radha Gonzalez MD, [facility] Address [address] [place] [address] Phone Care Team Providers Care Measurement And Sensing Technician Name Role Phone PP Unavailable CCM Unavailable Summary Purpose Interface Exchange Insurance Providers Payer name Policy type / Coverage type Covered alliance party ID Effective Begin Date Effective End Date CORESOURCES Commercial Insurance [id number] 2017 Unknown Family history Brother Diagnosis Age At Onset Alcoholism Unknown Father Diagnosis Age At Onset Hypercholesterolemia Unknown Social History Social History Element Codes Description Effective Dates Marital status Unknown S chanda 12/15/2017 Number of children Unknown 1 12/15/2017 Employment Unknown Curre ntly employed [employer] 12/15/[address]: 092725286 Never smoker 12/15/[address]: 357196 Currently drinks alcohol <1 per week 12/15/2017 [...] cypiona te 200 mg/mL intramuscular oil RxNorm: 549477 Milliliter(s) IM 09/16/2018 09/16/2018 In active testosterone cypiona te 200 mg/mL intramuscular oil RxNorm: 986138 1 Milliliter(s) IM 09/02/2018 09/02/2018 Inactive testosterone cypiona te 200 mg/mL intramuscular oil RxNorm: 572535 Milliliter(s) IM 08/19/2018 08/19/2018 In active Adderall 30 mg tablet RxNorm: 828002 2 Tablet(s) PO daily 08/18/2018 09/16/2018 Inactive tramadol 50 mg tablet RxNorm: 177954 1-2 Tablet(s) PO Q6 as needed 08/18/2018 No Stop Date Active Dexilant 60 mg capsu le, delayed release RxNorm: 427477 1 Capsule(s) PO BID 08/17/2018 08/11/2019 Ac tive atenolol 50 mg tablet RxNorm: 372396 1 Tablet(s) PO BID 08/17/2018 08/11/2019 Active Zorvolex 35 mg capsule RxNorm: 6894301 1 Capsule(s) PO TID as needed for pain 08/17/2018 02/12/2019 Ac tive ketoconazole 2 % top ical cream RxNorm: 248935 1 Gram(s) TOP BID 08/17/2018 08/26/2018 Inactive Zorvolex 35 mg capsule RxNorm: 6226447 1 Capsule(s) PO TID as needed for pain 08/17/2018 08/16/2018 In active ketoconazole 2 % top ical cream RxNorm: 751816 1 Gram(s) TOP BID 08/02/2018 08/11/2018 Inactive hydrocortisone 2.5 % topical cream RxNorm: 766119 1 Application TOP BID 07/21/2018 No Stop Date Active Adderall 30 mg tablet RxNorm: 253845 2 Tablet(s) PO daily 07/20/2018 08/17/2018 Inactive testosterone cypiona te 200 mg/mL intramuscular oil RxNorm: 510353 Milliliter(s) IM 07/15/2018 07/15/2018 In active alprazolam 1 mg tablet RxNorm: 104410 1 Tablet(s) PO TID as needed 07/12/2018 09/08/2018 Inactive hydrocodone 5 mg-fanny taminophen 325 mg tablet RxNorm: 445849 1 Tablet(s) PO TID OH N 06/30/2018 No Stop Date Active pravastatin 40 mg ta blet RxNorm: 909880 1 Tablet(s) PO QHS 06/18/2018 09/15/2018 Inactive Adderall 30 mg tablet RxNorm: 815809 2 Tablet(s) PO daily 06/18/2018 07/17/2018 Inactive testosterone cypiona te 200 mg/mL intramuscular oil RxNorm: 021218 Milliliter(s) IM 06/17/2018 06/17/2018 In active Voltaren 1 % topical gel RxNorm: 017043 APPLY TOPICALLY TWO T IMES A DAY 06/16/2018 07/21/2018 In active Vitamin D2 50,000 un it capsule RxNorm: 3581845 1 Capsule(s) PO QW 05/21/2018 No Stop Date Active Adderall 30 mg tablet RxNorm: 512468 2 Tablet(s) PO daily 05/21/2018 06/17/2018 Inactive testosterone cypiona te 200 mg/mL intramuscular oil RxNorm: 621255 Milliliter(s) IM 05/21/2018 05/21/2018 In active testosterone cypiona te 200 mg/mL intramuscular oil RxNorm: 588341 1 Milliliter(s) IM monthly 05/20/2018 09/16/2018 Inactive testosterone cypiona te 200 mg/mL intramuscular oil RxNorm: 176263 1 Milliliter(s) IM monthly 05/20/2018 05/19/2018 Inactive hydrocodone 5 mg-fanny taminophen 325 mg tablet RxNorm: 990688 1 Tablet(s) PO TID [place] N 05/20/2018 06/29/2018 In active Vitamin D2 50,000 un it capsule RxNorm: 8978594 1 Capsule(s) PO QW 05/18/2018 05/20/2018 Inactive triamcinolone aceton destin 0.025 % topical cream RxNorm: 9872382 1 Application TOP BI D 05/13/2018 No Stop Date Active Dexilant 60 mg capsu le, delayed release RxNorm: 396988 1 Capsule(s) PO BID 05/13/2018 08/16/2018 In active Zorvolex 35 mg capsule RxNorm: 2142680 1 Capsule(s) PO TID as needed for pain 05/12/2018 08/09/2018 In active Voltaren 1 % topical gel RxNorm: 924141 1 Application TOP BID 05/12/2018 06/15/2018 Inactive Singulair 10 mg tablet RxNorm: 403295 1 Tablet(s) PO daily 05/10/2018 08/07/2018 Inactive acyclovir 400 mg tablet RxNorm: 930650 1 Tablet(s) PO TID as needed take at ons et of symptoms of cold sores x 5 days 05/10/2018 No Stop Date Active paroxetine 20 mg tablet RxNorm: 7176837 2 Tablet(s) PO QHS 05/10/2018 10/31/2019 Active ProAir HFA 90 mcg/ac tuation aerosol inhaler RxNorm: 831160 1 Puff(s) INH QID as needed 05/10/2018 No Stop Date Active trazodone 100 mg tablet RxNorm: 214584 1 Tablet(s) PO QHS 05/10/2018 11/05/2018 Active baclofen 20 mg tablet RxNorm: 430160 1 Tablet(s) PO TID as needed muscle spas ms 05/10/2018 06/08/2018 In active atenolol 50 mg tablet RxNorm: 421417 1 Tablet(s) PO BID 05/10/2018 08/07/2018 Inactive triamcinolone aceton destin 0.025 % topical cream RxNorm: 8252248 1 Application TOP BI D 05/10/2018 05/12/2018 In active tramadol 50 mg tablet RxNorm: 416222 1 Tablet(s) PO TID as needed 05/10/2018 05/19/2018 Inactive Dexilant 60 mg capsu le, delayed release RxNorm: 200453 1 Capsule(s) PO daily 05/10/2018 05/12/2018 In active alprazolam 1 mg tablet RxNorm: 593334 1 Tablet(s) PO TID as needed 05/10/2018 08/06/2018 Inactive cyclobenzaprine 10 m g tablet RxNorm: 819952 1 Tablet(s) PO TID as needed muscle spasms 05/07/2018 07/12/2018 Inactive trazodone 100 mg tablet RxNorm: 768018 1 Tablet(s) PO QHS 05/07/2018 05/09/2018 Inactive Adderall 30 mg tablet RxNorm: 083829 2 Tablet(s) PO daily 04/19/2018 05/18/2018 Inactive alprazolam 1 mg tablet RxNorm: 963079 1 Tablet(s) PO BID 04/19/2018 05/09/2018 Inactive Adderall 30 mg tablet RxNorm: 742300 2 Tablet(s) PO daily 03/26/2018 04/18/2018 Inactive paroxetine 20 mg tablet RxNorm: 9785250 2 Tablet(s) PO QHS 03/15/2018 05/09/2018 Inactive Adderall 30 mg tablet RxNorm: 890368 2 Tablet(s) PO daily 02/25/2018 03/25/2018 Inactive cyclobenzaprine 10 m g tablet RxNorm: 366955 1 Tablet(s) PO TID as needed muscle spasms 02/22/2018 05/06/2018 Inactive tramadol 50 mg tablet RxNorm: 761013 1 Tablet(s) PO TID as needed 02/22/2018 03/07/2018 Inactive tramadol 50 mg tablet RxNorm: 076992 1 Tablet(s) PO TID as needed 02/22/2018 02/21/2018 Inactive trazodone 100 mg tablet RxNorm: 502180 1 Tablet(s) PO QHS 02/03/2018 05/03/2018 Inactive trazodone 100 mg tablet RxNorm: 103453 1 Tablet(s) PO QHS 02/03/2018 02/02/2018 Inactive Adderall 30 mg tablet RxNorm: 217852 2 Tablet(s) PO daily 01/27/2018 02/18/2018 Inactive acyclovir 400 mg tablet RxNorm: 867389 1 Tablet(s) PO TID as needed take at ons et of symptoms of cold sores x 5 days 01/15/2018 05/09/2018 Inactive Bactrim DS 800 mg-16 0 mg tablet RxNorm: 722763 1 Tablet(s) PO BID 01/11/2018 01/17/2018 Inactive Bactrim DS 800 mg-16 0 mg tablet RxNorm: 942598 1 Tablet(s) PO BID 01/11/2018 01/10/2018 Inactive Dexilant 60 mg capsu le, delayed release RxNorm: 136195 1 Capsule(s) PO daily 12/23/2017 05/09/2018 In active Dexilant 60 mg capsu le, delayed release RxNorm: 704139 1 Capsule(s) PO daily 12/23/2017 12/22/2017 In active atenolol 50 mg tablet RxNorm: 674256 1 Tablet(s) PO BID 12/15/2017 05/09/2018 Inactive alprazolam 1 mg tablet RxNorm: 407997 1-1.5 Tablet(s) PO daily 12/15/2017 04/18/2018 Inactive ceftriaxone 500 mg s olution for injection RxNorm: 8174457 Inj 08/03/2015 08/03/2015 Inactive paroxetine 20 mg tablet RxNorm: 1238338 2 Tablet(s) PO QHS 08/01/2015 10/29/2015 Inactive pravastatin 40 mg ta blet RxNorm: 123279 1/2 Tablet(s) PO QHS 08/01/2015 12/14/2017 Inactive Trazadone 100mg 100 mg RxNorm: 1 PO daily 08/01/2015 11/27/2015 Inactive Trazadone 100mg 100 mg RxNorm: 1 PO daily 08/01/2015 05/04/2018 Inactive atenolol 50 mg tablet RxNorm: 245973 1 Tablet(s) PO daily 08/01/2015 10/29/2015 Inactive ibuprofen 800 mg tablet RxNorm: 082629 1 Tablet(s) PO BID -TID No Start Date Active Zyrtec 10 mg tablet RxNorm: 0607260 1 Tablet(s) PO daily No Start Date Active pravastatin 40 mg ta blet RxNorm: 297955 1/2 Tablet(s) PO QHS No Start Date 07/31/2015 Inactive Benadryl Allergy 25 mg tablet RxNorm: 6250537 1 Tablet(s) PO daily No Start Date 07/19/2018 Inactive Adderall 30 mg tablet RxNorm: 639105 2 Tablet(s) PO daily No Start Date 01/26/2018 Inactive Aspirin Low Dose 81 mg tablet,delayed release RxNorm: 454609 1 Tablet(s) PO BID No Start Date 07/19/2018 Inactive Singulair 10 mg tablet RxNorm: 216586 1 Tablet(s) PO daily No Start Date 05/09/2018 Inactive cyclobenzaprine 10 m g tablet RxNorm: 701458 1 Tablet(s) PO TID as needed muscle spasms No Start Date 02/21/2018 Inactive Trazadone 100mg 100 mg RxNorm: 1 PO daily No Start Date 07/31/2015 Inactive hydrocortisone 2.5 % topical cream RxNorm: 528862 1 Application TOP BID No Start Date 07/20/2018 Inactive alprazolam 1 mg tablet RxNorm: 663275 2 Tablet(s) PO daily No Start Date 12/14/2017 Inactive tramadol 50 mg tablet RxNorm: 681877 1-2 Tablet(s) PO Q6 as needed No Start Date 08/17/2018 Inactive Vitamin D2 50,000 un it capsule RxNorm: 1408720 1 Capsule(s) PO QW No Start Date 05/17/2018 Inactive pantoprazole 40 mg t ablet,delayed release RxNorm: 082552 1 Tablet(s) PO BID No Start Date 12/22/2017 Inactive atenolol 50 mg tablet RxNorm: 335717 1 Tablet(s) PO daily No Start Date 07/31/2015 Inactive paroxetine 20 mg tablet RxNorm: 842637 2 Tablet(s) PO QHS No Start Date 07/31/2015 Inactive Medication Administered Medication Codes Instruc tions Start Date Status testosterone cypionate 200 mg/mL intramuscular oil RxNorm: 254879 Milliliter 09/16/2018 Active testosterone cypionate 200 mg/mL intramuscular oil RxNorm: 968005 1Milliliter 09/02/2018 No longer Active testosterone cypionate 200 mg/mL intramuscular oil RxNorm: 622573 Milliliter 08/19/2018 No longer Active testosterone cypionate 200 mg/mL intramuscular oil RxNorm: 329777 Milliliter 07/15/2018 No longer Active testosterone cypionate 200 mg/mL intramuscular oil RxNorm: 028766 Milliliter 06/17/2018 No longer Active testosterone cypionate 200 mg/mL intramuscular oil RxNorm: 024542 Milliliter 05/21/2018 No longer Active ceftriaxone 500 mg solution for injection RxNorm: 5151079 08/03/2015 No longer A ctive Immunizations Vaccine [...] For Visit Effective Dates Notes back pain 08/16/2018 back pain 08/02/2018 back pain 05/31/2018 back pain 05/20/2018 medication follow up 05/10/2018 vision change 01/15/2018 vision change 12/15/2017 Results Observation Observation Code Item Item Code Result Date Testosterone Serum 811752 TESTOSTERONE 44.1 ng/dL 08/18/2018 Hemoglobin 253580 WBC 7.62 thou/uL 08/17/2018 Hemoglobin 982251 RBC 5.23 mil/uL 08/17/2018 Hemoglobin 235310 HEMOGL OBIN 15.0 g/dL 08/17/2018 Hemoglobin 125435 HEMATO CRIT 45.0 % 08/17/2018 Hemoglobin 417413 MCV 86.0 fL 08/17/2018 Hemoglobin 252118 MCH 28.7 pg 08/17/2018 Hemoglobin 898841 MCHC 33.3 g/dL 08/17/2018 Hemoglobin 038362 RDW-CV 12.9 % 08/17/2018 Hemoglobin 161774 PLATEL ET COUNT 313 thou/uL 08/17/2018 Hematocrit 684276 WBC 7.62 thou/uL 08/17/2018 Hematocrit 485061 RBC 5.23 mil/uL 08/17/2018 Hematocrit 821829 HEMOGL OBIN 15.0 g/dL 08/17/2018 Hematocrit 626663 HEMATO CRIT 45.0 % 08/17/2018 Hematocrit 893460 MCV 86.0 fL 08/17/2018 Hematocrit 627159 MCH 28.7 pg 08/17/2018 Hematocrit 487036 MCHC 33.3 g/dL 08/17/2018 Hematocrit 550883 RDW-CV 12.9 % 08/17/2018 Hematocrit 909803 PLATEL ET COUNT 313 thou/uL 08/17/2018 Culture Mrsa 205170 MRSA CULTURE SEE NOTES 06/21/2018 Comp. Metabolic Panel (14) 60665 GLUCOSE 101 mg/dL 06/18/2018 Comp. Metabolic Panel (14) 15644 BUN 18 mg/dL 06/18/2018 Comp. Metabolic Panel (14) 98893 CREATININE 0.99 mg/dL 06/18/2018 Comp. Metabolic Panel (14) 54254 SODIUM 141 mmol/L 06/18/2018 Comp. Metabolic Panel (14) 12785 POTASSIUM 4.3 mmol/L 06/18/2018 Comp. Metabolic Panel (14) 17607 CHLORIDE 103 mmol/L 06/18/2018 Comp. Metabolic Panel (14) 98063 CARBON DIOXIDE 23 mmol/L 06/18/2018 Comp. Metabolic Panel (14) 08222 CALCIUM 9.8 mg/dL 06/18/2018 Comp. Metabolic Panel (14) 40312 TOTAL PROTEIN 7.1 g/dL 06/18/2018 Comp. Metabolic Panel (14) 99847 ALBUMIN 5.2 g/dL 06/18/2018 Comp. Metabolic Panel (14) 82488 ALKALINE PHOSPHATASE 65 U/L 06/18/2018 Comp. Metabolic Panel (14) 23161 TOTAL BILIRUBIN 0.6 mg/dL 06/18/2018 Comp. Metabolic Panel (14) 65566 SGOT (AST) 21 U/L 06/18/2018 Comp. Metabolic Panel (14) 50050 SGPT (ALT) 24 U/L 06/18/2018 Comp. Metabolic Panel (14) 82891 eGFR (mL/min/1.73m2) 115 06/18/2018 Comp. Metabolic Panel (14) 27385 INTERPRETATION 06/18/2018 Cbc With Differential/Platelet 75724 WBC 4.55 thou/uL 8 Cbc With Differential/Platelet 76157 RBC 5.13 mil/uL 06/18/2018 Cbc With Differential/Platelet 09646 HEMOGLOBIN 14.4 g/dL 06/18/2018 Cbc With Differential/Platelet 05674 HEMATOCRIT 44.1 % 06/18/2018 Cbc With Differential/Platelet 15087 MCV 85.9 fL 06/18/2018 Cbc With Differential/Platelet 12924 MCH 28.1 pg 06/18/2018 Cbc With Differential/Platelet 88560 MCHC 32.7 g/dL 06/18/2018 Cbc With Differential/Platelet 49284 RDW-CV 13.4 % 06/18/2018 Cbc With Differential/Platelet 55775 PLATELET COUNT 287 thou/uL 06/18/2018 Cbc With Differential/Platelet 16044 NEUTROPHIL % 53.9 % 06/18/2018 Cbc With Differential/Platelet 63866 LYMPHOCYTE % 36.1 % 06/18/2018 Cbc With Differential/Platelet 44985 MONOCYTE % 7.4 % 06/18/2018 Cbc With Differential/Platelet 36397 EOS % 1.9 % 06/18/2018 Cbc With Differential/Platelet 54693 BASO % 0.8 % 06/18/2018 Cbc With Differential/Platelet 45404 NEUTROPHIL ABS # 2.45 thou/uL 06/18/2018 Cbc With Differential/Platelet 84833 LYMPH ABS # 1.64 thou/uL 06/18/2018 Cbc With Differential/Platelet 52625 MONOCYTE ABS # 0.34 thou/uL 06/18/2018 Cbc With Differential/Platelet 69346 EOS ABS # 0.09 thou/uL 8 Cbc With Differential/Platelet 79341 BASO ABS # 0.04 thou/uL 06/18/2018 Review of Systems System Result Effective Dates Constitutional recent illness 08/16/2018 Constitutional No chills [...] Procedure Codes Date THER/PROPH/DIAG INJ SC/IM CPT-4: 12812 09/16/2018 THER/PROPH/DIAG INJ SC/IM CPT-4: 55277 09/02/2018 THER/PROPH/DIAG INJ SC/IM CPT-4: 07128 08/19/2018 IMMUNIZATION ADMIN CPT- 4: 40915 08/02/2018 FLU VAC NO PRSV 4 VA L 3 YRS+ CPT-4: 77546 08/02/2018 THER/PROPH/DIAG INJ SC/IM CPT-4: 53054 07/15/2018 THER/PROPH/DIAG INJ SC/IM CPT-4: 85427 06/17/2018 THER/PROPH/DIAG INJ SC/IM CPT-4: 80096 05/21/2018 THER/PROPH/DIAG INJ SC/IM CPT-4: 22390 08/03/2015 ROCEPHIN, PER 250 MG CPT-4: J0696 08/03/2015 Vital Signs Date Vital 08/16/2018 Blood Pressure 1: 148/82 Code: 8480-6 Blood Pressure 2: 157/92 Code: 8480-6 BMI: 35.9 Code: 76023-8 Heart Rate 1: 72 bpm Height: 5'7" SpO2: 96% Weight: 229 lbs 08/02/2018 Blood Pressure 1: 142/86 Code: 8480-6 BMI: 35.2 Code: 09512-9 Heart Rate 1: 101 bpm Height: 5'7" SpO2: 97% Weight: 225 lbs 05/31/2018 Blood Pressure 1: 134/82 Code: 8480-6 BMI: 35.4 Code: 80230-7 Heart Rate 1: 91 bpm Height: 5'7" SpO2: 96% Weight: 226 lbs 05/20/2018 Blood Pressure 1: 160/100 Code: 8480-6 BMI: 35.2 Code: 86792-2 Heart Rate 1: 89 bpm Height: 5'7" SpO2: 98% Weight: 225 lbs 05/10/2018 Blood Pressure 1: 124/70 Code: 8480-6 BMI: 35.1 Code: 95178-0 Heart Rate 1: 93 bpm Height: 5'7" SpO2: 99% Weight: 224 lbs 01/15/2018 Blood Pressure 1: 142/92 Code: 8480-6 BMI: 36.3 Code: 16089-0 Heart Rate 1: 77 bpm Height: 5'7" SpO2: 98% Weight: 232 lbs 12/15/2017 Blood Pressure 1: 156/98 Code: 8480-6 BMI: 36.2 Code: 73861-5 Heart Rate 1: 87 bpm Height: 5'7" SpO2: 97% Weight: 231 lbs Functional Status No Functional Status data History of Present Illness Symptom Name Status Resu lt Effective Date Notes back pain Location thora cic spine 08/16/2018 [...] eye 01/15/2018 None vision change Quality ac [place] 01/15/2018 None vision change Quality lo ss [...] vision 12/15/2017 None vision change Quality ac [place] 12/15/2017 None vision change Onset and Resolution sudden in onset 12/15/2017 None vision change Onset of Symptom 3.5 weeks ago 12/15/2017 None vision change Limitation on Activities severely limits vision 12/15/2017 None vision change Triggers n o known associated factors 12/15/2017 None Advance Directives No Advance Directive data Encounters Encounter Performer Loca tion Codes Date ([id number]) 66615 EST. 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 P ATIENT, LEVEL IV Diagnosis: Essential (primary) hypertension[ICD10: I10] Diagnosis: Cervicalgia[ICD10: M54.2] Radha Gonzalez MD, [facility] CPT-4: 39764 05/31/2018 ([id number]) 50308 EST. 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] Diagnosis: Obstructive sleep apnea (adult) (pediatric)[ICD10: G47.33] Radha Gonzalez MD, [facility] CPT-4: 79918 01/15/2018 ([id number]) PREV VISIT N EW AGE 40-64 Diagnosis: Encounter for general adult medical examination with abnormal findings[ICD10: Z00.01] [facility] CPT-4: 29904 12/15/2017 ([id number]) OFFICE/OUTPA TIENT VISIT NEW Diagnosis: Laceration of thumb[ICD9: 883.0] [facility] CPT-4: 46888 08/03/2015 Plan of Care Planned Activity Notes C odes Status Date Patient Education: Patient Medication Summary Completed 09/16/2018 [...] Multiple symptoms - referral to [facility] - appt in September 30, 2018. 08/16/2018 [facility] [phone] [facility] [place] (15 min) Moderate 08/16/2018 Patient Education: [...] Multiple symptoms - referral to [facility] - rashes, hypogonadism, optic neuritis - all points to possible autoimmune syndrome. Spinal stenosis - of thoracic region - pt to talk to Dr. Dunaway about referral to a different specialist for his mid- back. Hypogonadism - continue with testosterone. Flu shot given today in clinic. 08/02/2018 Appointment: [facility] [phone] [facility] [place] (15 min) Moderate 08/02/2018 Patient Education: Patient Medication Summary Completed 08/02/2018 Care Plan: Referral Order SNOMED-CT : 948555302 Pending 08/02/2018 Appointment: Injection 07/15/2018 Patient Education: [...] home. Cervical spine stenosis - referral to [facility]. I have also recommended a Referral to Dr. Dunaway. I have called and talked to Dr. Dunaway - he looked at the pt's imaging and agrees that getting the pt in to be seen soon would be a preferred option. 05/31/2018 App[facility]ment: [facility] [phone] [facility] [place] (15 min) Moderate 05/31/2018 Patient Education: Patient Medication Summary Completed 05/31/2018 Care Plan: Referral Order SNOMED-CT : 667517626 Pending 05/31/2018 Care Plan: Referral Order SNOMED-CT : 186222356 Pending 05/31/2018 Appointment: Injection 05/21/2018 Patient Education: Patient Medication Summary Completed 05/21/2018 Care Plan: Referral Order SNOMED-CT : 109696170 Pending 05/21/2018 Visit Plan: Cervical and thoracic s tenosis with spinal cord compression -refer for appt with Dr Marr -rx for hydrocodone for pain-start gabapentin at bedtime Soft tissue lesion-left chest-schedule CTfor further evaluation HTN-elevated today-hold adderall-monitor blood pressure 05/20/2018 Appointment: Hannah Simons WPtel: [phone] [phone] [place] (15 min) Moderate 05/20/2018 Patient Education: [...] order this. 05/10/2018 Appointment: Sonia Potter WPtel: [facility] [place] (15 min) Moderate 05/10/2018 Patient Education: Patient Medication Summary Completed 05/10/2018 Visit Plan: Sleep apnea - rx for cp ap - actually autopap was recommended and pt given rx today. HTN - referral to dr. kpaoor - pt needs stress testing. 01/15/2018 Appointment: Radha Gonzalez WPtel: [phone] [facility] [place] (15 min) Moderate 01/15/2018 Patient Education: Patient Medication Summary Completed 01/15/2018 Care Plan: Referral Order SNOMED-CT : 708183924 Pending 01/15/2018 Visit Plan: Well Adult - [...] one month. 12/15/2017 Appointment: Radha Gonzalez WPtel: [facility] New Patient 12/15/2017 Patient Education: Patient Medication Summary Completed 12/15/2017 Care Plan: CHEST X-RAY 2VW FRONTAL&LATL LOINC : 51323-5 Pending 12/15/2017 [place] [facility] [phone] [facility] (15 min) Moderate 12/08/2017 Appointment: (S) New Patient 08/13/2015 Visit Plan: steri strip placed on t humb of right hand - antibiotic shot given to patient and rx for keflex 500mg qid x 10 days given to the patient to fill prior to his trip to [place] 08/03/2015 Patient Education: Patient Medication Summary Completed 08/03/2015 Referral: External, Ordering Provider 08/03 Referral info faxed to [place]. Patient informed to be expecting a call from them with appt info Appointment Requested Referral: External, Ordering Provider Referral Appointment Requested Referral: External, Ordering Provider I called today; they will call him to schedule. Completed Referral: Armani Dunaway Referral Appointment Requested Referral: Mayte Kapoor Referral Appointment Requested Referral[facility] [phone] [facility] Referral Appointment Requested Referral: External, Ordering [...] Multiple symptoms - referral to [facility] - rashes, hypogonadism, optic neuritis - [...] Multiple symptoms - referral to [facility] - appt in September 30, 2018. . steri strip placed on thumb of right hand - antibiotic shot given to patient and rx for keflex 500mg qid x 10 days given to the patient to fill prior to his trip to [place] will refill meds for 90 days Will [...] home. Cervical spine stenosis - referral to [facility]. I have also recommended a Referral to Dr. Dunaway. I have called and talked to Dr. Dunaway - he looked at the pt's imaging and agrees that getting the pt in to be seen soon would be a preferred option.
--- OUTSIDE RECORDS SUMMARY | 2020-04-28 01:04 | XMS REPORT | CCD ---
Author Author Nilton Gonzalez Organization Radha Gonzalez MD, [facility] Address [address] [place] [address] Phone Care Team Providers Care Paste Plant Supervisor Name Role Phone PP Unavailable CCM Unavailable Summary Purpose Interface Exchange Insurance Providers Payer name Policy type / Coverage type Covered constitution party ID Effective Begin Date Effective End Date CORESOURCES Commercial Insurance [id number] 2017 Unknown Family history Brother Diagnosis Age At Onset Alcoholism Unknown Father Diagnosis Age At Onset Hypercholesterolemia Unknown Social History Social History Element Codes Description Effective Dates Marital status Unknown S chanda 12/15/2017 Number of children Unknown 1 12/15/2017 Employment Unknown 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/[address]: 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 Never smoker 12/15/[address]: 619575 Currently drinks alcohol <1 per week 12/15/2017 [...] Fill Instructions Adderall 30 mg tablet RxNorm: 428608 2 Tablet(s) PO daily 09/20/2018 10/19/2018 Active hydrocodone 5 mg-fanny taminophen 325 mg tablet RxNorm: 377241 1 Tablet(s) PO TID NM N 09/20/2018 No Stop Date Active testosterone cypiona te 200 mg/mL intramuscular oil RxNorm: 201410 Milliliter(s) IM 09/16/2018 09/16/2018 In active testosterone cypiona te 200 mg/mL intramuscular oil RxNorm: 674672 1 Milliliter(s) IM 09/02/2018 09/02/2018 Inactive testosterone cypiona te 200 mg/mL intramuscular oil RxNorm: 607695 Milliliter(s) IM 08/19/2018 08/19/2018 In active tramadol 50 mg tablet RxNorm: 342789 1-2 Tablet(s) PO Q6 as needed 08/18/2018 No Stop Date Active Adderall 30 mg tablet RxNorm: 613009 2 Tablet(s) PO daily 08/18/2018 09/16/2018 Inactive Dexilant 60 mg capsu le, delayed release RxNorm: 678798 1 Capsule(s) PO BID 08/17/2018 08/11/2019 Ac tive atenolol 50 mg tablet RxNorm: 821877 1 Tablet(s) PO BID 08/17/2018 08/11/2019 Active Zorvolex 35 mg capsule RxNorm: 1361952 1 Capsule(s) PO TID as needed for pain 08/17/2018 02/12/2019 Ac tive ketoconazole 2 % top ical cream RxNorm: 825694 1 Gram(s) TOP BID 08/17/2018 08/26/2018 Inactive Zorvolex 35 mg capsule RxNorm: 6430490 1 Capsule(s) PO TID as needed for pain 08/17/2018 08/16/2018 In active ketoconazole 2 % top ical cream RxNorm: 480083 1 Gram(s) TOP BID 08/02/2018 08/11/2018 Inactive hydrocortisone 2.5 % topical cream RxNorm: 885481 1 Application TOP BID 07/21/2018 No Stop Date Active Adderall 30 mg tablet RxNorm: 877843 2 Tablet(s) PO daily 07/20/2018 08/17/2018 Inactive testosterone cypiona te 200 mg/mL intramuscular oil RxNorm: 629970 Milliliter(s) IM 07/15/2018 07/15/2018 In active alprazolam 1 mg tablet RxNorm: 454291 1 Tablet(s) PO TID as needed 07/12/2018 09/08/2018 Inactive hydrocodone 5 mg-fanny taminophen 325 mg tablet RxNorm: 311203 1 Tablet(s) PO TID NM N 06/30/2018 09/19/2018 In active pravastatin 40 mg ta blet RxNorm: 135572 1 Tablet(s) PO QHS 06/18/2018 09/15/2018 Inactive Adderall 30 mg tablet RxNorm: 166763 2 Tablet(s) PO daily 06/18/2018 07/17/2018 Inactive testosterone cypiona te 200 mg/mL intramuscular oil RxNorm: 352125 Milliliter(s) IM 06/17/2018 06/17/2018 In active Voltaren 1 % topical gel RxNorm: 804741 APPLY TOPICALLY TWO T IMES A DAY 06/16/2018 07/21/2018 In active Vitamin D2 50,000 un it capsule RxNorm: 5046703 1 Capsule(s) PO QW 05/21/2018 No Stop Date Active Adderall 30 mg tablet RxNorm: 611654 2 Tablet(s) PO daily 05/21/2018 06/17/2018 Inactive testosterone cypiona te 200 mg/mL intramuscular oil RxNorm: 551973 Milliliter(s) IM 05/21/2018 05/21/2018 In active testosterone cypiona te 200 mg/mL intramuscular oil RxNorm: 245045 1 Milliliter(s) IM monthly 05/20/2018 09/16/2018 Inactive testosterone cypiona te 200 mg/mL intramuscular oil RxNorm: 384998 1 Milliliter(s) IM monthly 05/20/2018 05/19/2018 Inactive hydrocodone 5 mg-fanny taminophen 325 mg tablet RxNorm: 118642 1 Tablet(s) PO TID NM N 05/20/2018 06/29/2018 In active Vitamin D2 50,000 un it capsule RxNorm: 7844002 1 Capsule(s) PO QW 05/18/2018 05/20/2018 Inactive triamcinolone aceton destin 0.025 % topical cream RxNorm: 8972462 1 Application TOP BI D 05/13/2018 No Stop Date Active Dexilant 60 mg capsu le, delayed release RxNorm: 509071 1 Capsule(s) PO BID 05/13/2018 08/16/2018 In active Zorvolex 35 mg capsule RxNorm: 0930736 1 Capsule(s) PO TID as needed for pain 05/12/2018 08/09/2018 In active Voltaren 1 % topical gel RxNorm: 194776 1 Application TOP BID 05/12/2018 06/15/2018 Inactive Singulair 10 mg tablet RxNorm: 582325 1 Tablet(s) PO daily 05/10/2018 08/07/2018 Inactive acyclovir 400 mg tablet RxNorm: 904363 1 Tablet(s) PO TID as needed take at ons et of symptoms of cold sores x 5 days 05/10/2018 No Stop Date Active paroxetine 20 mg tablet RxNorm: 0853393 2 Tablet(s) PO QHS 05/10/2018 10/31/2019 Active ProAir HFA 90 mcg/ac tuation aerosol inhaler RxNorm: 328491 1 Puff(s) INH QID as needed 05/10/2018 No Stop Date Active trazodone 100 mg tablet RxNorm: 327757 1 Tablet(s) PO QHS 05/10/2018 11/05/2018 Active baclofen 20 mg tablet RxNorm: 212920 1 Tablet(s) PO TID as needed muscle spas ms 05/10/2018 06/08/2018 In active atenolol 50 mg tablet RxNorm: 343365 1 Tablet(s) PO BID 05/10/2018 08/07/2018 Inactive triamcinolone aceton destin 0.025 % topical cream RxNorm: 3439043 1 Application TOP BI D 05/10/2018 05/12/2018 In active tramadol 50 mg tablet RxNorm: 553503 1 Tablet(s) PO TID as needed 05/10/2018 05/19/2018 Inactive Dexilant 60 mg capsu le, delayed release RxNorm: 727396 1 Capsule(s) PO daily 05/10/2018 05/12/2018 In active alprazolam 1 mg tablet RxNorm: 416278 1 Tablet(s) PO TID as needed 05/10/2018 08/06/2018 Inactive cyclobenzaprine 10 m g tablet RxNorm: 667867 1 Tablet(s) PO TID as needed muscle spasms 05/07/2018 07/12/2018 Inactive trazodone 100 mg tablet RxNorm: 323305 1 Tablet(s) PO QHS 05/07/2018 05/09/2018 Inactive Adderall 30 mg tablet RxNorm: 509161 2 Tablet(s) PO daily 04/19/2018 05/18/2018 Inactive alprazolam 1 mg tablet RxNorm: 466418 1 Tablet(s) PO BID 04/19/2018 05/09/2018 Inactive Adderall 30 mg tablet RxNorm: 674072 2 Tablet(s) PO daily 03/26/2018 04/18/2018 Inactive paroxetine 20 mg tablet RxNorm: 0939032 2 Tablet(s) PO QHS 03/15/2018 05/09/2018 Inactive Adderall 30 mg tablet RxNorm: 601306 2 Tablet(s) PO daily 02/25/2018 03/25/2018 Inactive cyclobenzaprine 10 m g tablet RxNorm: 501948 1 Tablet(s) PO TID as needed muscle spasms 02/22/2018 05/06/2018 Inactive tramadol 50 mg tablet RxNorm: 624627 1 Tablet(s) PO TID as needed 02/22/2018 03/07/2018 Inactive tramadol 50 mg tablet RxNorm: 622677 1 Tablet(s) PO TID as needed 02/22/2018 02/21/2018 Inactive trazodone 100 mg tablet RxNorm: 520765 1 Tablet(s) PO QHS 02/03/2018 05/03/2018 Inactive trazodone 100 mg tablet RxNorm: 372428 1 Tablet(s) PO QHS 02/03/2018 02/02/2018 Inactive Adderall 30 mg tablet RxNorm: 931766 2 Tablet(s) PO daily 01/27/2018 02/18/2018 Inactive acyclovir 400 mg tablet RxNorm: 680116 1 Tablet(s) PO TID as needed take at ons et of symptoms of cold sores x 5 days 01/15/2018 05/09/2018 Inactive Bactrim DS 800 mg-16 0 mg tablet RxNorm: 376047 1 Tablet(s) PO BID 01/11/2018 01/17/2018 Inactive Bactrim DS 800 mg-16 0 mg tablet RxNorm: 929951 1 Tablet(s) PO BID 01/11/2018 01/10/2018 Inactive Dexilant 60 mg capsu le, delayed release RxNorm: 284915 1 Capsule(s) PO daily 12/23/2017 05/09/2018 In active Dexilant 60 mg capsu le, delayed release RxNorm: 476095 1 Capsule(s) PO daily 12/23/2017 12/22/2017 In active atenolol 50 mg tablet RxNorm: 275275 1 Tablet(s) PO BID 12/15/2017 05/09/2018 Inactive alprazolam 1 mg tablet RxNorm: 208866 1-1.5 Tablet(s) PO daily 12/15/2017 04/18/2018 Inactive ceftriaxone 500 mg s olution for injection RxNorm: 4582294 Inj 08/03/2015 08/03/2015 Inactive paroxetine 20 mg tablet RxNorm: 4880190 2 Tablet(s) PO QHS 08/01/2015 10/29/2015 Inactive pravastatin 40 mg ta blet RxNorm: 227926 1/2 Tablet(s) PO QHS 08/01/2015 12/14/2017 Inactive Trazadone 100mg 100 mg RxNorm: 1 PO daily 08/01/2015 11/27/2015 Inactive Trazadone 100mg 100 mg RxNorm: 1 PO daily 08/01/2015 05/04/2018 Inactive atenolol 50 mg tablet RxNorm: 589497 1 Tablet(s) PO daily 08/01/2015 10/29/2015 Inactive ibuprofen 800 mg tablet RxNorm: 049101 1 Tablet(s) PO BID -TID No Start Date Active Zyrtec 10 mg tablet RxNorm: 9185816 1 Tablet(s) PO daily No Start Date Active pravastatin 40 mg ta blet RxNorm: 089368 1/2 Tablet(s) PO QHS No Start Date 07/31/2015 Inactive Benadryl Allergy 25 mg tablet RxNorm: 1478618 1 Tablet(s) PO daily No Start Date 07/19/2018 Inactive Adderall 30 mg tablet RxNorm: 900356 2 Tablet(s) PO daily No Start Date 01/26/2018 Inactive Aspirin Low Dose 81 mg tablet,delayed release RxNorm: 794946 1 Tablet(s) PO BID No Start Date 07/19/2018 Inactive Singulair 10 mg tablet RxNorm: 767757 1 Tablet(s) PO daily No Start Date 05/09/2018 Inactive cyclobenzaprine 10 m g tablet RxNorm: 287700 1 Tablet(s) PO TID as needed muscle spasms No Start Date 02/21/2018 Inactive Trazadone 100mg 100 mg RxNorm: 1 PO daily No Start Date 07/31/2015 Inactive hydrocortisone 2.5 % topical cream RxNorm: 582874 1 Application TOP BID No Start Date 07/20/2018 Inactive alprazolam 1 mg tablet RxNorm: 370771 2 Tablet(s) PO daily No Start Date 12/14/2017 Inactive tramadol 50 mg tablet RxNorm: 609568 1-2 Tablet(s) PO Q6 as needed No Start Date 08/17/2018 Inactive Vitamin D2 50,000 un it capsule RxNorm: 6492518 1 Capsule(s) PO QW No Start Date 05/17/2018 Inactive pantoprazole 40 mg t ablet,delayed release RxNorm: 636682 1 Tablet(s) PO BID No Start Date 12/22/2017 Inactive atenolol 50 mg tablet RxNorm: 440778 1 Tablet(s) PO daily No Start Date 07/31/2015 Inactive paroxetine 20 mg tablet RxNorm: 066995 2 Tablet(s) PO QHS No Start Date 07/31/2015 Inactive Medication Administered Medication Codes Instruc tions Start Date Status testosterone cypionate 200 mg/mL intramuscular oil RxNorm: 065032 Milliliter 09/16/2018 No longer Active testosterone cypionate 200 mg/mL intramuscular oil RxNorm: 763984 1Milliliter 09/02/2018 No longer Active testosterone cypionate 200 mg/mL intramuscular oil RxNorm: 603865 Milliliter 08/19/2018 No longer Active testosterone cypionate 200 mg/mL intramuscular oil RxNorm: 626351 Milliliter 07/15/2018 No longer Active testosterone cypionate 200 mg/mL intramuscular oil RxNorm: 482817 Milliliter 06/17/2018 No longer Active testosterone cypionate 200 mg/mL intramuscular oil RxNorm: 089308 Milliliter 05/21/2018 No longer Active ceftriaxone 500 mg solution for injection RxNorm: 9011894 08/03/2015 No longer A ctive Immunizations Vaccine [...] Item Item Code Result Date Testosterone Serum 061704 TESTOSTERONE 44.1 ng/dL 08/18/2018 Hemoglobin 916278 WBC 7.62 thou/uL 08/17/2018 Hemoglobin 660504 RBC 5.23 mil/uL 08/17/2018 Hemoglobin 624037 HEMOGL OBIN 15.0 g/dL 08/17/2018 Hemoglobin 110340 HEMATO CRIT 45.0 % 08/17/2018 Hemoglobin 687658 MCV 86.0 fL 08/17/2018 Hemoglobin 593097 MCH 28.7 pg 08/17/2018 Hemoglobin 956599 MCHC 33.3 g/dL 08/17/2018 Hemoglobin 888780 RDW-CV 12.9 % 08/17/2018 Hemoglobin 971101 PLATEL ET COUNT 313 thou/uL 08/17/2018 Hematocrit 424733 WBC 7.62 thou/uL 08/17/2018 Hematocrit 504655 RBC 5.23 mil/uL 08/17/2018 Hematocrit 974123 HEMOGL OBIN 15.0 g/dL 08/17/2018 Hematocrit 959172 HEMATO CRIT 45.0 % 08/17/2018 Hematocrit 915740 MCV 86.0 fL 08/17/2018 Hematocrit 719199 MCH 28.7 pg 08/17/2018 Hematocrit 539869 MCHC 33.3 g/dL 08/17/2018 Hematocrit 882269 RDW-CV 12.9 % 08/17/2018 Hematocrit 350096 PLATEL ET COUNT 313 thou/uL 08/17/2018 Culture Mrsa 384091 MRSA CULTURE SEE NOTES 06/21/2018 Comp. Metabolic Panel (14) 59459 GLUCOSE 101 mg/dL 06/18/2018 Comp. Metabolic Panel (14) 41941 BUN 18 mg/dL 06/18/2018 Comp. Metabolic Panel (14) 18988 CREATININE 0.99 mg/dL 06/18/2018 Comp. Metabolic Panel (14) 93194 SODIUM 141 mmol/L 06/18/2018 Comp. Metabolic Panel (14) 19802 POTASSIUM 4.3 mmol/L 06/18/2018 Comp. Metabolic Panel (14) 72588 CHLORIDE 103 mmol/L 06/18/2018 Comp. Metabolic Panel (14) 22962 CARBON DIOXIDE 23 mmol/L 06/18/2018 Comp. Metabolic Panel (14) 94267 CALCIUM 9.8 mg/dL 06/18/2018 Comp. Metabolic Panel (14) 97526 TOTAL PROTEIN 7.1 g/dL 06/18/2018 Comp. Metabolic Panel (14) 18566 ALBUMIN 5.2 g/dL 06/18/2018 Comp. Metabolic Panel (14) 03843 ALKALINE PHOSPHATASE 65 U/L 06/18/2018 Comp. Metabolic Panel (14) 57424 TOTAL BILIRUBIN 0.6 mg/dL 06/18/2018 Comp. Metabolic Panel (14) 50414 SGOT (AST) 21 U/L 06/18/2018 Comp. Metabolic Panel (14) 63753 SGPT (ALT) 24 U/L 06/18/2018 Comp. Metabolic Panel (14) 18348 eGFR (mL/min/1.73m2) 115 06/18/2018 Comp. Metabolic Panel (14) 13005 INTERPRETATION 06/18/2018 Cbc With Differential/Platelet 97029 WBC 4.55 thou/uL 8 Cbc With Differential/Platelet 23849 RBC 5.13 mil/uL 06/18/2018 Cbc With Differential/Platelet 64789 HEMOGLOBIN 14.4 g/dL 06/18/2018 Cbc With Differential/Platelet 16199 HEMATOCRIT 44.1 % 06/18/2018 Cbc With Differential/Platelet 77770 MCV 85.9 fL 06/18/2018 Cbc With Differential/Platelet 21235 MCH 28.1 pg 06/18/2018 Cbc With Differential/Platelet 69525 MCHC 32.7 g/dL 06/18/2018 Cbc With Differential/Platelet 44434 RDW-CV 13.4 % 06/18/2018 Cbc With Differential/Platelet 50653 PLATELET COUNT 287 thou/uL 06/18/2018 Cbc With Differential/Platelet 34771 NEUTROPHIL % 53.9 % 06/18/2018 Cbc With Differential/Platelet 66761 LYMPHOCYTE % 36.1 % 06/18/2018 Cbc With Differential/Platelet 79467 MONOCYTE % 7.4 % 06/18/2018 Cbc With Differential/Platelet 80264 EOS % 1.9 % 06/18/2018 Cbc With Differential/Platelet 41133 BASO % 0.8 % 06/18/2018 Cbc With Differential/Platelet 08759 NEUTROPHIL ABS # 2.45 thou/uL 06/18/2018 Cbc With Differential/Platelet 30868 LYMPH ABS # 1.64 thou/uL 06/18/2018 Cbc With Differential/Platelet 35778 MONOCYTE ABS # 0.34 thou/uL 06/18/2018 Cbc With Differential/Platelet 75240 EOS ABS # 0.09 thou/uL 8 Cbc With Differential/Platelet 19728 BASO ABS # 0.04 thou/uL 06/18/2018 Review [...] Procedure Codes Date THER/PROPH/DIAG INJ SC/IM CPT-4: 64250 09/16/2018 THER/PROPH/DIAG INJ SC/IM CPT-4: 26454 09/02/2018 THER/PROPH/DIAG INJ SC/IM CPT-4: 83397 08/19/2018 IMMUNIZATION ADMIN CPT- 4: 06526 08/02/2018 FLU VAC NO PRSV 4 VA L 3 YRS+ CPT-4: 40285 08/02/2018 THER/PROPH/DIAG INJ SC/IM CPT-4: 63453 07/15/2018 THER/PROPH/DIAG INJ SC/IM CPT-4: 80252 06/17/2018 THER/PROPH/DIAG INJ SC/IM CPT-4: 81242 05/21/2018 THER/PROPH/DIAG INJ SC/IM CPT-4: 60379 08/03/2015 ROCEPHIN, PER 250 MG CPT-4: J0696 08/03/2015 Vital Signs Date Vital 08/16/2018 Blood Pressure 1: 148/82 Code: 8480-6 Blood Pressure 2: 157/92 Code: 8480-6 BMI: 35.9 Code: 98310-8 Heart Rate 1: 72 bpm Height: 5'7" SpO2: 96% Weight: 229 lbs 08/02/2018 Blood Pressure 1: 142/86 Code: 8480-6 BMI: 35.2 Code: 21843-6 Heart Rate 1: 101 bpm Height: 5'7" SpO2: 97% Weight: 225 lbs 05/31/2018 Blood Pressure 1: 134/82 Code: 8480-6 BMI: 35.4 Code: 29065-6 Heart Rate 1: 91 bpm Height: 5'7" SpO2: 96% Weight: 226 lbs 05/20/2018 Blood Pressure 1: 160/100 Code: 8480-6 BMI: 35.2 Code: 90060-4 Heart Rate 1: 89 bpm Height: 5'7" SpO2: 98% Weight: 225 lbs 05/10/2018 Blood Pressure 1: 124/70 Code: 8480-6 BMI: 35.1 Code: 21093-7 Heart Rate 1: 93 bpm Height: 5'7" SpO2: 99% Weight: 224 lbs 01/15/2018 Blood Pressure 1: 142/92 Code: 8480-6 BMI: 36.3 Code: 85407-0 Heart Rate 1: 77 bpm Height: 5'7" SpO2: 98% Weight: 232 lbs 12/15/2017 Blood Pressure 1: 156/98 Code: 8480-6 BMI: 36.2 Code: 02141-4 Heart Rate 1: 87 bpm Height: 5'7" [...] Encounters Encounter Performer Loca tion Codes Date ([id number]) 95574 EST. 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 P ATIENT, LEVEL IV Diagnosis: Essential (primary) hypertension[ICD10: I10] Diagnosis: Cervicalgia[ICD10: M54.2] Radha Gonzalez MD, [facility] CPT-4: 01505 05/31/2018 ([id number]) 83102 EST. 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 Multiple symptoms - referral to [facility] - appt in September 30, 2018. 08/16/2018 Appointment: Radha Gonzalez [facility]el: [facility] [place] 2[place] (15 min) Moderate 08/16/2018 Patient Education: [...] at home. Multiple symptoms - referral to [facility] - rashes, hypogonadism, optic neuritis - all points to possible autoimmune syndrome. Spinal stenosis - of thoracic region - pt to talk to Dr. Dunaway about referral to a different specialist for his mid- back. Hypogonadism - continue with testosterone. Flu shot given today in clinic. 08/02/2018 Appointment: Rad[facility] Gonzalez [facility]el[facility] [phone] [facility] [place] (15 min) Moderate 08/02/2018 Patient Education: Patient Medication Summary Completed 08/02/2018 Care Plan: Referral Order SNOMED-CT : 541071065 Pending 08/02/2018 Appointment: Injection 07/15/2018 Patient Education: [...] home. Cervical spine stenosis - referral to [facility] physical therapy. I have also recommended a Referral to Dr. Dunaway. I have called and talked to Dr. Dunaway - he looked at the pt's imaging and agrees that getting the pt in to be seen soon would be a preferred option. 05/31/2018 Appointment: Rad[facility] Gonzalez [facility]el[facility] [phone] [facility] [place] (15 min) Moderate 05/31/2018 Patient Education: Patient Medication Summary Completed 05/31/2018 Care Plan: Referral Order SNOMED-CT : 665086574 Pending 05/31/2018 Care Plan: Referral Order SNOMED-CT : 276474022 Pending 05/31/2018 Appointment: Injection 05/21/2018 Patient Education: Patient Medication Summary Completed 05/21/2018 Care Plan: Referral Order SNOMED-CT : 532895021 Pending 05/21/2018 Visit Plan: Cervical and thoracic s tenosis with spinal cord compression -refer for appt with Dr Marr -rx for hydrocodone for pain-start gabapentin at bedtime Soft tissue lesion-left chest-schedule CTfor further evaluation HTN-elevated today-hold adderall-monitor blood pressure 05/20/2018 Appointment: [facility] [phone] [facility] [place] (15 min) Moderate 05/20/2018 [...] order this. 05/10/2018 Appointment: Sonia Potter WPtel: [facility] [place] 2[facility] [place] (15 min) Moderate 05/10/2018 Patient Education: Patient Medication Summary Completed 05/10/2018 Visit Plan: Sleep apnea - rx for cp ap - actually autopap was recommended and pt given rx today. HTN - referral to dr. kapoor - pt needs stress testing. 01/15/2018 Appointment: Rad[facility] Gonzalez [facility]el[facility] [phone] [facility] [place] (15 min) Moderate 01/15/2018 Patient Education: Patient Medication Summary Completed 01/15/2018 Care Plan: Referral Order SNOMED-CT : 688178315 Pending 01/15/2018 Visit Plan: Well Adult - [...] month. 12/15/2017 Appointment: Radha Gonzalez WPtel: [phone] [facility] New Patient 12/15/2017 Patient Education: Patient Medication Summary Completed 12/15/2017 Care Plan: CHEST X-RAY 2VW FRONTAL&LATL LOINC : 05878-8 Pending 12/15/2017 Appointment: Melinda Gonzalezy WPtel: [phone] (15 min) Moderate 12/08/2017 Appointment: (S) [...] Ordering Provider 08/03 Referral info faxed to [facility]. Patient informed to be expecting a call from them with appt info Appointment Requested Referral: External, Ordering Provider Referral Appointment Requested Referral: External, Ordering Provider I called today; they will call him to schedule. Completed Referral: Armani Dunaway Referral Appointment Requested Referral: Mayte Kapoor Referral Appointment Requested Referral: [facility] WPtel: [phone] Referral Appointment Requested Referral: External, Ordering [...] at home. Multiple symptoms - referral to [facility] - rashes, hypogonadism, optic neuritis - all [...] at home. Multiple symptoms - referral to [facility] - appt in September 30, 2018. . steri strip placed on thumb of right hand - antibiotic shot given to patient and rx for keflex 500mg qid x 10 days given to the patient to fill prior to his trip to [place] will refill meds for 90 days Will [...]
[2020-04-28 01:05] LABS: LIPASE 37 U/L (8-78)
--- OUTSIDE RECORDS SUMMARY | 2020-04-28 01:05 | XMS REPORT | CCD ---
Author Author Nilton Gonzalez Organization [facility] Address [address] [place] [address] Phone Care Team Providers Care Director Of Corporate Communications Name Role Phone PP Unavailable CCM Unavailable Summary Purpose Interface Exchange Insurance Providers Payer name Policy type / Coverage type Covered libertarian ID Effective Begin Date Effective End Date CORESOURCES Commercial Insurance [id number] 2017 Unknown Family history Brother Diagnosis Age At Onset Alcoholism Unknown Father Diagnosis Age At Onset Hypercholesterolemia Unknown Social History Social History Element Codes Description Effective Dates Marital status Unknown S chanda 12/15/2017 Number of children Unknown 1 12/15/2017 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 Active 12/15/2017 Unknown Laceration of thumb ICD- 9: 883.0 Active 08/02/2015 Unknown Problems Condition Codes Effectiv e Dates Condition Status Encounter for genera l adult medical examination with abnormal findings ICD-9: V70.0 ICD-10: Z00.01 12/15/2017 Active Essential (primary) hypertension ICD-9: 401.1 ICD-10: I10 12/15/2017 Active Ischemic optic neuro sergey, 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 12/15/2017 Active Laceration of thumb ICD- 9: 883.0 08/02/2015 Active Medications Medication Codes Instruc tions Start Date Stop Date Sta tus Fill Instructions atenolol 50 mg tablet RxNorm: 982823 1 Tablet(s) PO BID 12/15/2017 No Stop Date Active alprazolam 1 mg tablet RxNorm: 691717 1-1.5 Tablet(s) PO daily 12/15/2017 No Stop Date Active ceftriaxone 500 mg s olution for injection RxNorm: 0981664 Inj 08/03/2015 08/03/2015 Inactive paroxetine 20 mg tablet RxNorm: 980077 2 Tablet(s) PO QHS 08/01/2015 10/29/2015 Inactive Trazadone 100mg 100 mg RxNorm: 1 PO daily 08/01/2015 No Stop Date Active pravastatin 40 mg ta blet RxNorm: 766908 1/2 Tablet(s) PO QHS 08/01/2015 12/14/2017 Inactive Trazadone 100mg 100 mg RxNorm: 1 PO daily 08/01/2015 11/27/2015 Inactive atenolol 50 mg tablet RxNorm: 198538 1 Tablet(s) PO daily 08/01/2015 10/29/2015 Inactive Benadryl Allergy 25 mg tablet RxNorm: 6285924 1 Tablet(s) PO daily No Start Date Active Adderall 30 mg tablet RxNorm: 955351 2 Tablet(s) PO daily No Start Date Active Aspirin Low Dose 81 mg tablet,delayed release RxNorm: 001283 1 Tablet(s) PO BID No Start Date Active Singulair 10 mg tablet RxNorm: 176262 1 Tablet(s) PO daily No Start Date Active ibuprofen 800 mg tablet RxNorm: 286168 1 Tablet(s) PO BID -TID No Start Date Active pantoprazole 40 mg t ablet,delayed release RxNorm: 677941 1 Tablet(s) PO BID No Start Date Active Zyrtec 10 mg tablet RxNorm: 1913277 1 Tablet(s) PO daily No Start Date Active pravastatin 40 mg ta blet RxNorm: 050975 1/2 Tablet(s) PO QHS No Start Date 07/31/2015 Inactive Trazadone 100mg 100 mg RxNorm: 1 PO daily No Start Date 07/31/2015 Inactive alprazolam 1 mg tablet RxNorm: 878393 2 Tablet(s) PO daily No Start Date 12/14/2017 Inactive atenolol 50 mg tablet RxNorm: 578819 1 Tablet(s) PO daily No Start Date 07/31/2015 Inactive paroxetine 20 mg tablet RxNorm: 028777 2 Tablet(s) PO QHS No Start Date 07/31/2015 Inactive Medication Administered Medication Codes Instruc tions Start Date Status ceftriaxone 500 mg solution for injection RxNorm: 0972538 08/03/2015 No longer A ctive Immunizations Vaccine Codes Date Status Tetanus, Diptheria, Pertussis CVX: 113 05/16/2011 completed Tetanus/Diptheria CVX: 113 05/16/2011 completed Assessments Condition Codes Effectiv e Dates Essential (primary) hypertension ICD -10: I10 ICD-9: 401.1 12/15/2017 Ischemic optic neuropathy, left eye ICD-10: H47.012 ICD-9: 377.41 12/15/2017 Encounter for general adult medical exam ination with abnormal findings ICD-10: Z00.01 ICD-9: V70.0 12/15/2017 Laceration of thumb ICD-9: 883.0 08/03/2015 Reason For Visit Reason For Visit Effective Dates Notes vision change 12/15/2017 Results No Results data Review of Systems System Result Effective Dates Constitutional recent illness 12/15/2017 Constitutional No chills [...] Procedure Codes Date THER/PROPH/DIAG INJ SC/IM CPT-4: 41014 08/03/2015 ROCEPHIN, PER 250 MG CPT-4: J0696 08/03/2015 Vital Signs Date Vital 12/15/2017 Blood Pressure 1: 156/98 Code: 8480-6 BMI: 36.2 Code: 93643-9 Heart Rate 1: 87 bpm Height: 5'7" SpO2: 97% Weight: 231 lbs Functional Status No Functional Status data History of Present Illness Symptom Name Status Resu lt Effective Date Notes vision change Location i n the left [...] Encounters Encounter Performer Loca tion Codes Date (68283) PREV VISIT N EW AGE 40-64 Diagnosis: Encounter for general adult medical examination with abnormal findings[ICD10: Z00.01] [facility] CPT-4: 46786 12/15/2017 (87927) OFFICE/OUTPA TIENT VISIT NEW Diagnosis: Laceration of thumb[ICD9: 883.0] [facility] CPT-4: 59537 08/03/2015 Plan of Care Planned Activity Notes C odes Status Date Visit Plan: Well Adult - pt was [...] pressure reports RTC in one month. 12/15/2017 Patient Education: Patient Medication Summary Completed 12/15/2017 Care Plan: CHEST X-RAY 2VW FRONTAL&LATL LOINC : 22186-6 Pending 12/15/2017 Care Plan: VASCULAR STUDY Pending 12/15/2017 [facility]ment: [facility] [address] [facility] [phone] [place] (15 min) Moderate 12/08/2017 Appointment: (S) New Patient 08/13/2015 Visit Plan: steri strip placed on t humb of right hand - antibiotic shot given to patient and rx for keflex 500mg qid x 10 days given to the patient to fill prior to his trip to [place] 08/03/2015 Patient Education: Patient Medication Summary Completed 08/03/2015 Instructions Comment . Well Adult - pt [...] pressure reports RTC in one month. . steri strip placed on thumb of right hand - antibiotic shot given to patient and rx for keflex 500mg qid x 10 days given to the patient to fill prior to his trip to [place]
--- OUTSIDE RECORDS SUMMARY | 2020-04-28 01:05 | XMS REPORT | CCD ---
Author Author Nilton Gonzalez Organization [facility] Address [address] [place] [address] Phone Care Team Providers Care Mine Wedge Sawyer Name Role Phone PP Unavailable CCM Unavailable Summary Purpose Interface Exchange Insurance Providers Payer name Policy type / Coverage type Covered republican ID Effective Begin Date Effective End Date CORESOURCES Commercial Insurance [id number] 2017 Unknown Family history Brother Diagnosis Age At Onset Alcoholism Unknown Father Diagnosis Age At Onset Hypercholesterolemia Unknown Social History Social History Element Codes Description Effective Dates Marital status Unknown S chadna 12/15/2017 Number of children Unknown 1 12/15/2017 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[employer] 12/15/[address]: 03[address]6725 Never smoker 12/15/[address]: 483674 Currently drinks alcohol <1 per week 12/15/2017 [...] Date Stop Date Sta tus Fill Instructions Dexilant 60 mg capsu le, delayed release RxNorm: 666918 1 Capsule(s) PO daily 12/23/2017 12/17/2018 Ac tive Dexilant 60 mg capsu le, delayed release RxNorm: 649840 1 Capsule(s) PO daily 12/23/2017 12/22/2017 In active atenolol 50 mg tablet RxNorm: 501474 1 Tablet(s) PO BID 12/15/2017 No Stop Date Active alprazolam 1 mg tablet RxNorm: 549922 1-1.5 Tablet(s) PO daily 12/15/2017 No Stop Date Active ceftriaxone 500 mg s olution for injection RxNorm: 9818253 Inj 08/03/2015 08/03/2015 Inactive paroxetine 20 mg tablet RxNorm: 605185 2 Tablet(s) PO QHS 08/01/2015 10/29/2015 Inactive Trazadone 100mg 100 mg RxNorm: 1 PO daily 08/01/2015 No Stop Date Active pravastatin 40 mg ta blet RxNorm: 459858 1/2 Tablet(s) PO QHS 08/01/2015 12/14/2017 Inactive Trazadone 100mg 100 mg RxNorm: 1 PO daily 08/01/2015 11/27/2015 Inactive atenolol 50 mg tablet RxNorm: 631606 1 Tablet(s) PO daily 08/01/2015 10/29/2015 Inactive Benadryl Allergy 25 mg tablet RxNorm: 6437431 1 Tablet(s) PO daily No Start Date Active Adderall 30 mg tablet RxNorm: 832378 2 Tablet(s) PO daily No Start Date Active Aspirin Low Dose 81 mg tablet,delayed release RxNorm: 487809 1 Tablet(s) PO BID No Start Date Active Singulair 10 mg tablet RxNorm: 399831 1 Tablet(s) PO daily No Start Date Active ibuprofen 800 mg tablet RxNorm: 387792 1 Tablet(s) PO BID -TID No Start Date Active Zyrtec 10 mg tablet RxNorm: 1322263 1 Tablet(s) PO daily No Start Date Active pravastatin 40 mg ta blet RxNorm: 142911 1/2 Tablet(s) PO QHS No Start Date 07/31/2015 Inactive Trazadone 100mg 100 mg RxNorm: 1 PO daily No Start Date 07/31/2015 Inactive alprazolam 1 mg tablet RxNorm: 017473 2 Tablet(s) PO daily No Start Date 12/14/2017 Inactive pantoprazole 40 mg t ablet,delayed release RxNorm: 891706 1 Tablet(s) PO BID No Start Date 12/22/2017 Inactive atenolol 50 mg tablet RxNorm: 880569 1 Tablet(s) PO daily No Start Date 07/31/2015 Inactive paroxetine 20 mg tablet RxNorm: 083122 2 Tablet(s) PO QHS No Start Date 07/31/2015 Inactive Medication Administered Medication Codes Instruc tions Start Date Status ceftriaxone 500 mg solution for injection RxNorm: 2431827 08/03/2015 No longer A ctive Immunizations Vaccine [...] 1995 Musculoskeletal spine, ribs and pelvis Overall: spine [...] Procedure Codes Date THER/PROPH/DIAG INJ SC/IM CPT-4: 73915 08/03/2015 ROCEPHIN, PER 250 MG CPT-4: J0696 08/03/2015 Vital Signs Date Vital 12/15/2017 Blood Pressure 1: 156/98 Code: 8480-6 BMI: 36.2 Code: 25854-3 Heart Rate 1: 87 bpm Height: 5'7" SpO2: 97% Weight: 231 lbs Functional Status No Functional Status data History of Present Illness Symptom Name Status Resu lt Effective Date Notes vision change Location i n the left eye 12/15/2017 None vision change Quality lo ss of vision 12/15/2017 None vision change Quality ac [place] 12/15/2017 None vision change Onset and Resolution sudden in onset 12/15/2017 None vision change Onset of Symptom 3.5 weeks ago 12/15/2017 None vision change Limitation on Activities severely limits vision 12/15/2017 None vision change Triggers n o known associated factors 12/15/2017 None Advance Directives No Advance Directive data Encounters Encounter Performer Loca tion Codes Date (17835) PREV VISIT N EW AGE 40-64 Diagnosis: Encounter for general adult medical examination with abnormal findings[ICD10: Z00.01] [facility] CPT-4: 71799 12/15/2017 (03647) OFFICE/OUTPA TIENT VISIT NEW Diagnosis: Laceration of thumb[ICD9: 883.0] [facility] CPT-4: 04079 08/03/2015 Plan of Care Planned Activity Notes C odes Status Date Appointment: [facility] WPtel: [address] [place], [place] [phone] New Patient 12/15/2017 Patient Education: Patient Medication Summary Completed 12/15/2017 Care Plan: CHEST X-RAY 2VW FRONTAL&LATL LOINC : 18830-8 Pending 12/15/2017 Care Plan: VASCULAR STUDY Pending 12/15/2017 Appointment: [facility] WPtel: [address] [place], [place] [phone] (15 min) Moderate 12/08/2017 Appointment: (S) New Patient 08/13/2015 Patient Education: Patient Medication Summary Completed 08/03/2015 Instructions No Instructions
--- OUTSIDE RECORDS SUMMARY | 2020-04-28 01:05 | XMS REPORT | CCD ---
Author Author Nilton Gonzalez Organization Radha Gonzalez MD, [facility] Address [address] [place] [address] Phone Care Team Providers Care Knot Tier Name Role Phone PP Unavailable CCM Unavailable Summary Purpose Interface Exchange Insurance Providers Payer name Policy type / Coverage type Covered democrat ID Effective Begin Date Effective End Date CORESOURCES Commercial Insurance [id number] 2017 Unknown Family history Brother Diagnosis Age At Onset Alcoholism Unknown Father Diagnosis Age At Onset Hypercholesterolemia Unknown Social History Social History Element Codes Description Effective Dates Marital status Unknown S chanda 12/15/2017 Number of children Unknown 1 12/15/2017 Employment 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 [employer] 12/15/[address]: 453383648 Never smoker 12/15/[address]: 464491 Currently drinks alcohol <1 per week 12/15/2017 [...] ICD-10: I10 Active 12/15/2017 Unknown Spinal stenosis, cer vical region ICD-9: 723.0 ICD-10: M48.02 Active 05/20/2018 Unknown Spinal stenosis, tho racic region ICD-9: 724.01 ICD-10: M48.04 Active 05/20/2018 Unknown Decreased libido ICD-9: 799.81 [...] 401.1 ICD-10: I10 12/15/2017 Active Spinal stenosis, cer vical region ICD-9: 723.0 ICD-10: M48.02 05/20/2018 Active Spinal stenosis, tho racic region ICD-9: 724.01 ICD-10: M48.04 05/20/2018 Active Decreased libido ICD-9: 799.81 ICD-10: [...] 5 mg-fanny taminophen 325 mg tablet RxNorm: 481489 1 Tablet(s) PO TID RI N 06/30/2018 No Stop Date Active pravastatin 40 mg ta blet RxNorm: 240900 1 Tablet(s) PO QHS 06/18/2018 09/15/2018 Active Adderall 30 mg tablet RxNorm: 161402 2 Tablet(s) PO daily 06/18/2018 07/17/2018 Active testosterone cypiona te 200 mg/mL intramuscular oil RxNorm: 059828 Milliliter(s) IM 06/17/2018 06/17/2018 In active Voltaren 1 % topical gel RxNorm: 471603 APPLY TOPICALLY TWO T IMES A DAY 06/16/2018 07/21/2018 Ac tive Vitamin D2 50,000 un it capsule RxNorm: 8957429 1 Capsule(s) PO QW 05/21/2018 No Stop Date Active Adderall 30 mg tablet RxNorm: 237693 2 Tablet(s) PO daily 05/21/2018 06/17/2018 Inactive testosterone cypiona te 200 mg/mL intramuscular oil RxNorm: 418802 Milliliter(s) IM 05/21/2018 05/21/2018 In active testosterone cypiona te 200 mg/mL intramuscular oil RxNorm: 856655 1 Milliliter(s) IM monthly 05/20/2018 09/16/2018 Active testosterone cypiona te 200 mg/mL intramuscular oil RxNorm: 538138 1 Milliliter(s) IM monthly 05/20/2018 05/19/2018 Inactive hydrocodone 5 mg-fanny taminophen 325 mg tablet RxNorm: 032254 1 Tablet(s) PO TID RI N 05/20/2018 06/29/2018 In active Vitamin D2 50,000 un it capsule RxNorm: 2577694 1 Capsule(s) PO QW 05/18/2018 05/20/2018 Inactive triamcinolone aceton destin 0.025 % topical cream RxNorm: 9236918 1 Application TOP BI D 05/13/2018 No Stop Date Active Dexilant 60 mg capsu le, delayed release RxNorm: 209046 1 Capsule(s) PO BID 05/13/2018 05/07/2019 Ac tive Zorvolex 35 mg capsule RxNorm: 7472067 1 Capsule(s) PO TID as needed for pain 05/12/2018 08/09/2018 Ac tive Voltaren 1 % topical gel RxNorm: 851774 1 Application TOP BID 05/12/2018 06/15/2018 Inactive Singulair 10 mg tablet RxNorm: 023202 1 Tablet(s) PO daily 05/10/2018 08/07/2018 Active acyclovir 400 mg tablet RxNorm: 680861 1 Tablet(s) PO TID as needed take at ons et of symptoms of cold sores x 5 days 05/10/2018 No Stop Date Active atenolol 50 mg tablet RxNorm: 909387 1 Tablet(s) PO BID 05/10/2018 08/07/2018 Active paroxetine 20 mg tablet RxNorm: 8351503 2 Tablet(s) PO QHS 05/10/2018 10/31/2019 Active ProAir HFA 90 mcg/ac tuation aerosol inhaler RxNorm: 313538 1 Puff(s) INH QID as needed 05/10/2018 No Stop Date Active alprazolam 1 mg tablet RxNorm: 803413 1 Tablet(s) PO TID as needed 05/10/2018 08/07/2018 Active trazodone 100 mg tablet RxNorm: 586597 1 Tablet(s) PO QHS 05/10/2018 11/05/2018 Active baclofen 20 mg tablet RxNorm: 006958 1 Tablet(s) PO TID as needed muscle spas ms 05/10/2018 06/08/2018 In active triamcinolone aceton destin 0.025 % topical cream RxNorm: 1617212 1 Application TOP BI D 05/10/2018 05/12/2018 In active tramadol 50 mg tablet RxNorm: 542514 1 Tablet(s) PO TID as needed 05/10/2018 05/19/2018 Inactive Dexilant 60 mg capsu le, delayed release RxNorm: 714405 1 Capsule(s) PO daily 05/10/2018 05/12/2018 In active cyclobenzaprine 10 m g tablet RxNorm: 296457 1 Tablet(s) PO TID as needed muscle spasms 05/07/2018 No Stop Date Active trazodone 100 mg tablet RxNorm: 504061 1 Tablet(s) PO QHS 05/07/2018 05/09/2018 Inactive Adderall 30 mg tablet RxNorm: 903238 2 Tablet(s) PO daily 04/19/2018 05/18/2018 Inactive alprazolam 1 mg tablet RxNorm: 525068 1 Tablet(s) PO BID 04/19/2018 05/09/2018 Inactive Adderall 30 mg tablet RxNorm: 111309 2 Tablet(s) PO daily 03/26/2018 04/18/2018 Inactive paroxetine 20 mg tablet RxNorm: 2976484 2 Tablet(s) PO QHS 03/15/2018 05/09/2018 Inactive Adderall 30 mg tablet RxNorm: 973399 2 Tablet(s) PO daily 02/25/2018 03/25/2018 Inactive cyclobenzaprine 10 m g tablet RxNorm: 130109 1 Tablet(s) PO TID as needed muscle spasms 02/22/2018 05/06/2018 Inactive tramadol 50 mg tablet RxNorm: 444082 1 Tablet(s) PO TID as needed 02/22/2018 03/07/2018 Inactive tramadol 50 mg tablet RxNorm: 552778 1 Tablet(s) PO TID as needed 02/22/2018 02/21/2018 Inactive trazodone 100 mg tablet RxNorm: 980124 1 Tablet(s) PO QHS 02/03/2018 05/03/2018 Inactive trazodone 100 mg tablet RxNorm: 287184 1 Tablet(s) PO QHS 02/03/2018 02/02/2018 Inactive Adderall 30 mg tablet RxNorm: 790009 2 Tablet(s) PO daily 01/27/2018 02/18/2018 Inactive acyclovir 400 mg tablet RxNorm: 144244 1 Tablet(s) PO TID as needed take at ons et of symptoms of cold sores x 5 days 01/15/2018 05/09/2018 Inactive Bactrim DS 800 mg-16 0 mg tablet RxNorm: 574485 1 Tablet(s) PO BID 01/11/2018 01/17/2018 Inactive Bactrim DS 800 mg-16 0 mg tablet RxNorm: 012601 1 Tablet(s) PO BID 01/11/2018 01/10/2018 Inactive Dexilant 60 mg capsu le, delayed release RxNorm: 608725 1 Capsule(s) PO daily 12/23/2017 05/09/2018 In active Dexilant 60 mg capsu le, delayed release RxNorm: 716458 1 Capsule(s) PO daily 12/23/2017 12/22/2017 In active atenolol 50 mg tablet RxNorm: 175148 1 Tablet(s) PO BID 12/15/2017 05/09/2018 Inactive alprazolam 1 mg tablet RxNorm: 481019 1-1.5 Tablet(s) PO daily 12/15/2017 04/18/2018 Inactive ceftriaxone 500 mg s olution for injection RxNorm: 1141375 Inj 08/03/2015 08/03/2015 Inactive paroxetine 20 mg tablet RxNorm: 3095171 2 Tablet(s) PO QHS 08/01/2015 10/29/2015 Inactive pravastatin 40 mg ta blet RxNorm: 547535 1/2 Tablet(s) PO QHS 08/01/2015 12/14/2017 Inactive Trazadone 100mg 100 mg RxNorm: 1 PO daily 08/01/2015 11/27/2015 Inactive Trazadone 100mg 100 mg RxNorm: 1 PO daily 08/01/2015 05/04/2018 Inactive atenolol 50 mg tablet RxNorm: 338861 1 Tablet(s) PO daily 08/01/2015 10/29/2015 Inactive Benadryl Allergy 25 mg tablet RxNorm: 7812811 1 Tablet(s) PO daily No Start Date Active Aspirin Low Dose 81 mg tablet,delayed release RxNorm: 039059 1 Tablet(s) PO BID No Start Date Active ibuprofen 800 mg tablet RxNorm: 158944 1 Tablet(s) PO BID -TID No Start Date Active tramadol 50 mg tablet RxNorm: 297983 1-2 Tablet(s) PO Q6 as needed No Start Date Active Zyrtec 10 mg tablet RxNorm: 1622573 1 Tablet(s) PO daily No Start Date Active pravastatin 40 mg ta blet RxNorm: 021135 1/2 Tablet(s) PO QHS No Start Date 07/31/2015 Inactive Adderall 30 mg tablet RxNorm: 635144 2 Tablet(s) PO daily No Start Date 01/26/2018 Inactive Singulair 10 mg tablet RxNorm: 643511 1 Tablet(s) PO daily No Start Date 05/09/2018 Inactive cyclobenzaprine 10 m g tablet RxNorm: 442163 1 Tablet(s) PO TID as needed muscle spasms No Start Date 02/21/2018 Inactive Trazadone 100mg 100 mg RxNorm: 1 PO daily No Start Date 07/31/2015 Inactive alprazolam 1 mg tablet RxNorm: 576781 2 Tablet(s) PO daily No Start Date 12/14/2017 Inactive Vitamin D2 50,000 un it capsule RxNorm: 6014692 1 Capsule(s) PO QW No Start Date 05/17/2018 Inactive pantoprazole 40 mg t ablet,delayed release RxNorm: 657731 1 Tablet(s) PO BID No Start Date 12/22/2017 Inactive atenolol 50 mg tablet RxNorm: 485614 1 Tablet(s) PO daily No Start Date 07/31/2015 Inactive paroxetine 20 mg tablet RxNorm: 086427 2 Tablet(s) PO QHS No Start Date 07/31/2015 Inactive Medication Administered Medication Codes Instruc tions Start Date Status testosterone cypionate 200 mg/mL intramuscular oil RxNorm: 681726 Milliliter 06/17/2018 No longer Active testosterone cypionate 200 mg/mL intramuscular oil RxNorm: 226407 Milliliter 05/21/2018 No longer Active ceftriaxone 500 mg solution for injection RxNorm: 1890228 08/03/2015 No longer A ctive Immunizations Vaccine Codes Date Status Tetanus, Diptheria, Pertussis CVX: 113 05/16/2011 completed Tetanus/Diptheria CVX: 113 05/16/2011 completed Assessments Condition Codes Effectiv e Dates 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 Metabolic Panel (14) 25702 GLUCOSE 101 mg/dL 06/18/2018 Comp. Metabolic Panel (14) 62258 BUN 18 mg/dL 06/18/2018 Comp. Metabolic Panel (14) 15032 CREATININE 0.99 mg/dL 06/18/2018 Comp. Metabolic Panel (14) 05171 SODIUM 141 mmol/L 06/18/2018 Comp. Metabolic Panel (14) 23451 POTASSIUM 4.3 mmol/L 06/18/2018 Comp. Metabolic Panel (14) 16784 CHLORIDE 103 mmol/L 06/18/2018 Comp. Metabolic Panel (14) 87068 CARBON DIOXIDE 23 mmol/L 06/18/2018 Comp. Metabolic Panel (14) 20769 CALCIUM 9.8 mg/dL 06/18/2018 Comp. Metabolic Panel (14) 21981 TOTAL PROTEIN 7.1 g/dL 06/18/2018 Comp. Metabolic Panel (14) 63405 ALBUMIN 5.2 g/dL 06/18/2018 Comp. Metabolic Panel (14) 32110 ALKALINE PHOSPHATASE 65 U/L 06/18/2018 Comp. Metabolic Panel (14) 88419 TOTAL BILIRUBIN 0.6 mg/dL 06/18/2018 Comp. Metabolic Panel (14) 17125 SGOT (AST) 21 U/L 06/18/2018 Comp. Metabolic Panel (14) 92512 SGPT (ALT) 24 U/L 06/18/2018 Comp. Metabolic Panel (14) 41845 eGFR (mL/min/1.73m2) 115 06/18/2018 Comp. Metabolic Panel (14) 56263 INTERPRETATION 06/18/2018 Cbc With Differential/Platelet 22275 WBC 4.55 thou/uL 8 Cbc With Differential/Platelet 43740 RBC 5.13 mil/uL 06/18/2018 Cbc With Differential/Platelet 96219 HEMOGLOBIN 14.4 g/dL 06/18/2018 Cbc With Differential/Platelet 38394 HEMATOCRIT 44.1 % 06/18/2018 Cbc With Differential/Platelet 74148 MCV 85.9 fL 06/18/2018 Cbc With Differential/Platelet 93615 MCH 28.1 pg 06/18/2018 Cbc With Differential/Platelet 17402 MCHC 32.7 g/dL 06/18/2018 Cbc With Differential/Platelet 56357 RDW-CV 13.4 % 06/18/2018 Cbc With Differential/Platelet 61425 PLATELET COUNT 287 thou/uL 06/18/2018 Cbc With Differential/Platelet 93043 NEUTROPHIL % 53.9 % 06/18/2018 Cbc With Differential/Platelet 29961 LYMPHOCYTE % 36.1 % 06/18/2018 Cbc With Differential/Platelet 92291 MONOCYTE % 7.4 % 06/18/2018 Cbc With Differential/Platelet 05245 EOS % 1.9 % 06/18/2018 Cbc With Differential/Platelet 43625 BASO % 0.8 % 06/18/2018 Cbc With Differential/Platelet 44373 NEUTROPHIL ABS # 2.45 thou/uL 06/18/2018 Cbc With Differential/Platelet 59598 LYMPH ABS # 1.64 thou/uL 06/18/2018 Cbc With Differential/Platelet 97088 MONOCYTE ABS # 0.34 thou/uL 06/18/2018 Cbc With Differential/Platelet 09294 EOS ABS # 0.09 thou/uL 8 Cbc With Differential/Platelet 68494 BASO ABS # 0.04 thou/uL 06/18/2018 Review of Systems System Result Effective Dates Constitutional recent illness 05/31/2018 Constitutional No chills [...] Procedure Codes Date THER/PROPH/DIAG INJ SC/IM CPT-4: 18995 06/17/2018 THER/PROPH/DIAG INJ SC/IM CPT-4: 08524 05/21/2018 THER/PROPH/DIAG INJ SC/IM CPT-4: 85618 08/03/2015 ROCEPHIN, PER 250 MG CPT-4: J0696 08/03/2015 Vital Signs Date Vital 05/31/2018 Blood Pressure 1: 134/82 Code: 8480-6 BMI: 35.4 Code: 08236-5 Heart Rate 1: 91 bpm Height: 5'7" SpO2: 96% Weight: 226 lbs 05/20/2018 Blood Pressure 1: 160/100 Code: 8480-6 BMI: 35.2 Code: 09564-4 Heart Rate 1: 89 bpm Height: 5'7" SpO2: 98% Weight: 225 lbs 05/10/2018 Blood Pressure 1: 124/70 Code: 8480-6 BMI: 35.1 Code: 07462-5 Heart Rate 1: 93 bpm Height: 5'7" SpO2: 99% Weight: 224 lbs 01/15/2018 Blood Pressure 1: 142/92 Code: 8480-6 BMI: 36.3 Code: 93436-0 Heart Rate 1: 77 bpm Height: 5'7" SpO2: 98% Weight: 232 lbs 12/15/2017 Blood Pressure 1: 156/98 Code: 8480-6 BMI: 36.2 Code: 43140-4 Heart Rate 1: 87 bpm Height: 5'7" SpO2: 97% Weight: 231 lbs Functional Status No Functional Status data History of Present Illness Symptom Name Status Resu lt Effective Date Notes back pain Location thora cic spine 05/31/2018 [...] eye 01/15/2018 None vision change Quality [facility] [place] 01/15/2018 None vision change Quality lo ss [...] vision 12/15/2017 None vision change Quality [facility] [place] 12/15/2017 None vision change Onset and Resolution sudden in onset 12/15/2017 None vision change Onset of Symptom 3.5 weeks ago 12/15/2017 None vision change Limitation on Activities severely limits vision 12/15/2017 None vision change Triggers n o known associated factors 12/15/2017 None Advance Directives No Advance Directive data Encounters Encounter Performer Loca tion Codes Date ([id number]) [id number] EST. P ATIENT, LEVEL IV Diagnosis: Essential (primary) hypertension[ICD10: I10] Diagnosis: Cervicalgia[ICD10: M54.2] Radha Gonzalez MD, [facility] CPT-4: 58256 05/31/2018 ([id number]) 95439 EST. P ATIENT, LEVEL IV Diagnosis: Spinal stenosis, cervical region[ICD10: M48.02] Diagnosis: Spinal stenosis, thoracic region[ICD10: M48.04] Diagnosis: Essential (primary) hypertension[ICD10: I10] Diagnosis: Testicular hypofunction[ICD10: E29.1] Hannah Gonzalez MD, [facility] CPT-4: 72677 05/20/2018 [id number] EST. 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] Diagnosis: Obstructive sleep apnea (adult) (pediatric)[ICD10: G47.33] Radha Gonzalez MD, C CPT-4: 09238 01/15/2018 ([id number]) PREV VISIT N EW AGE 40-64 Diagnosis: Encounter for general adult medical examination with abnormal findings[ICD10: Z00.01] Radha Gonzalez MD, [facility] CPT-4: 63592 12/15/2017 ([id number]) OFFICE/OUTPA TIENT VISIT NEW Diagnosis: Laceration of thumb[ICD9: 883.0] Radha Gonzalez MD, [facility] CPT-4: 85454 08/03/2015 Plan of Care Planned Activity Notes C odes Status Date Referral: Armani Dunaway Referral Completed 06/23/2018 Appointment: [...] home. Cervical spine stenosis - referral to [facility] physical therapy. I have also recommended a Referral to Dr. Dunaway. I have called and talked to Dr. Dunaway - he looked at the pt's imaging and agrees that getting the pt in to be seen soon would be a preferred option. 05/31/2018 Appointment: [phone] [facility] [place] (15 min) Moderate 05/31/2018 Patient Education: Patient Medication Summary Completed 05/31/2018 Care Plan: Referral Order SNOMED-CT : 163502557 Pending 05/31/2018 Care Plan: Referral Order SNOMED-CT : 382834375 Pending 05/31/2018 Appointment: Injection 05/21/2018 Patient Education: Patient Medication Summary Completed 05/21/2018 Care Plan: Referral Order SNOMED-CT : 351055418 Pending 05/21/2018 Visit Plan: Cervical and thoracic s tenosis with spinal cord compression -refer for appt with Dr Marr -rx for hydrocodone for pain-start gabapentin at bedtime Soft tissue lesion-left chest-schedule CTfor further evaluation HTN-elevated today-hold adderall-monitor blood pressure 05/20/2018 Appointment: [phone] [phone] [place] (15 min) Moderate 05/20/2018 Patient Education: [...] order this. 05/10/2018 Appointment: Sonia Potter WPtel: [phone] [id number] [place] (15 min) Moderate 05/10/2018 Patient Education: Patient Medication Summary Completed 05/10/2018 Visit Plan: Sleep apnea - rx for cp ap - actually autopap was recommended and pt given rx today. HTN - referral to dr. kapoor - pt needs stress testing. 01/15/2018 Appointment: Radha Gonzalez WPtel: [phone] [facility] [place] (15 min) Moderate 01/15/2018 Patient Education: Patient Medication Summary Completed 01/15/2018 Care Plan: Referral Order SNOMED-CT : 901194320 Pending 01/15/2018 Visit Plan: Well Adult - [...] month. 12/15/2017 Appointment: Radha Gonzalez WPtel: [phone] [facility] New Patient 12/15/2017 Patient Education: Patient Medication Summary Completed 12/15/2017 Care Plan: CHEST X-RAY 2VW FRONTAL&LATL LOINC : 12550-3 Pending 12/15/2017 Appointment: Radha Gonzalez WPtel: [phone] [facility] (15 min) Moderate 12/08/2017 Appointment: (S) New Patient 08/13/2015 Visit Plan: steri strip placed on t humb of right hand - antibiotic shot given to patient and rx for keflex 500mg qid x 10 days given to the patient to fill prior to his trip to [place] 08/03/2015 Patient Education: Patient Medication Summary Completed 08/03/2015 Referral: External, Ordering Provider Referral Appointment Requested Referral: External, Ordering Provider I called today; they will call him to schedule. Completed Referral: Armani Dunaway Referral Appointment Requested Referral: Mayte Kapoor Referral Appointment Requested Referral: [facility] WPtel: [phone] Referral Appointment Requested Instructions Comment . Well [...] evaluation HTN-elevated today-hold adderall-monitor blood pressure . steri strip placed on thumb of right hand - antibiotic shot given to patient and rx for keflex 500mg qid x 10 days given to the patient to fill prior to his trip to [place] will refill meds for 90 days Will [...]
--- OUTSIDE RECORDS SUMMARY | 2020-04-28 01:05 | XMS REPORT | Continuity of Care Document ---
Demographics Preferred Language Unknown Marital Status Unknown Gnosticist Affiliation Unknown Race Unknown Ethnic Group Unknown Author Organization Unknown Address Unknown Phone Unavailable Allergies Active Description Code Type Severity Reaction Onset Reported/Identified Relationship to Patient Clinical Status Yes No Known Drug Allergies [id number] Drug Allergy Unknown N/A 05/26/2018 Medications There is no data. 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 01/08/2018 SAMARIA BEAR MD Ot G47.10 HYPERSOMNIA, UNSPECIFIED 01/08/2018 MARIANELA MCCLENDON, SAMARIA Mckeon Ot 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 01/08/2018 SAMARIA BEAR MD Ot G47.10 HYPERSOMNIA, UNSPECIFIED 01/08/2018 SAMARIA BEAR MD Ot 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 02/11/2018 RADHA ARAUJO NEON ELECTRICIAN Ot H46.8 OTHER OPTIC NEURITIS 02/11/2018 RADHA ARAUJO NEON ELECTRICIAN Ot 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, LEFT EYE, VERONICA 05/14/2018 SAMARIA BEAR MD Ot H46.9 UNSPECIFIED OPTIC NEURITIS 05/14/2018 SAMARIA BEAR MD Ot I1 0 ESSENTIAL (PRIMARY) HYPERTENSION 05/14/2018 RADHA ARAUJO NEON ELECTRICIAN Ot H46.8 OTHER OPTIC NEURITIS 05/14/2018 RADHA ARAUJO NEON ELECTRICIAN Ot 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, LEFT EYE, VERONICA 05/14/2018 MARIANELA MD, SAMARIA A Ot H46.9 UNSPECIFIED OPTIC NEURITIS 05/14/2018 SAMARIA BEAR MD Ot I1 0 ESSENTIAL (PRIMARY) HYPERTENSION 05/14/2018 RADHA ARAUJO NEON ELECTRICIAN Ot H46.8 OTHER OPTIC NEURITIS 05/14/2018 RADHA ARAUJO NEON ELECTRICIAN Ot 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, LEFT EYE, VERONICA 05/17/2018 RADHA ARAUJO APRN Ot M48.03 SPINAL STENOSIS, CERVICOTHORACIC REGION 05/17/2018 RADHA ARAUJO APRN Ot M50.23 OTHER CERVICAL DISC DISPLACEMENT, CERVIC 05/17/2018 RADHA ARAUJO APRN Ot M50.33 OTHER CERVICAL DISC DEGENERATION, CERVIC 05/17/2018 RADHA ARAUJO APRN Ot M99.71 CONN TISS AND DISC STENOSIS OF INTVRT FO 05/17/2018 SAMARIA BEAR MD Ot H46.9 UNSPECIFIED OPTIC NEURITIS 05/17/2018 SAMARIA BEAR MD Ot I1 0 ESSENTIAL (PRIMARY) HYPERTENSION 05/17/2018 RADHA ARAUJO NEON ELECTRICIAN Ot H46.8 OTHER OPTIC NEURITIS 05/17/2018 RADHA ARAUJO NEON ELECTRICIAN Ot 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, LEFT EYE, VERONICA 05/17/2018 RADHA ARAUJO APRN Ot M48.03 SPINAL STENOSIS, CERVICOTHORACIC REGION 05/17/2018 RADHA ARAUJO NEON ELECTRICIAN Ot M50.23 OTHER CERVICAL DISC DISPLACEMENT, CERVIC 05/17/2018 RADHA ARAUJO NEON ELECTRICIAN Ot M50.33 OTHER CERVICAL DISC DEGENERATION, CERVIC 05/17/2018 RADHA ARAUJO APRN Ot M99.71 CONN TISS AND DISC STENOSIS OF INTVRT FO 05/20/2018 RADHA ARAUJO APRN Ot M48.03 SPINAL STENOSIS, CERVICOTHORACIC REGION 05/20/2018 RADHA ARAUJO NEON ELECTRICIAN Ot M50.23 OTHER CERVICAL DISC DISPLACEMENT, CERVIC 05/20/2018 RADHA ARAUJO NEON ELECTRICIAN Ot M50.33 OTHER CERVICAL DISC DEGENERATION, CERVIC 05/20/2018 RADHA ARAUJO APRN Ot M99.71 CONN TISS AND DISC STENOSIS OF INTVRT FO 05/26/2018 SAMARIA BEAR MD Ot H46.9 UNSPECIFIED OPTIC NEURITIS 05/26/2018 MARIANELA MD, SAMARIA A Ot I1 0 ESSENTIAL (PRIMARY) HYPERTENSION 05/26/2018 RADHA ARAUJO NEON ELECTRICIAN Ot H46.8 OTHER OPTIC NEURITIS 05/26/2018 RADHA ARAUJO NEON ELECTRICIAN Ot 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, LEFT EYE, VERONICA 05/26/2018 RADHA ARAUJO APRN Ot M48.03 SPINAL STENOSIS, CERVICOTHORACIC REGION 05/26/2018 RADHA ARAUJO APRN Ot M50.23 OTHER CERVICAL DISC DISPLACEMENT, CERVIC 05/26/2018 RADHA ARAUJO NEON ELECTRICIAN Ot M50.33 OTHER CERVICAL DISC DEGENERATION, CERVIC 05/26/2018 RADHA ARAUJO APRN Ot M99.71 CONN TISS AND DISC STENOSIS OF INTVRT FO 05/27/2018 RACHEL FUNES Ot M79.89 OTHER SPECIFIED SOFT TISSUE DISORDERS 08/14/2018 SAMARIA BEAR MD Ot H46.9 UNSPECIFIED OPTIC NEURITIS 08/14/2018 SAMARIA BEAR MD Ot I1 0 ESSENTIAL (PRIMARY) HYPERTENSION 08/14/2018 RADHA ARAUJO APRN Ot H46.8 OTHER OPTIC NEURITIS 08/14/2018 RADHA ARAUJO NEON ELECTRICIAN Ot 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, LEFT EYE, VERONICA 08/14/2018 RADHA ARAUJO APRN Ot M48.03 SPINAL STENOSIS, CERVICOTHORACIC REGION 08/14/2018 RADHA ARAUJO NEON ELECTRICIAN Ot M50.23 OTHER CERVICAL DISC DISPLACEMENT, CERVIC 08/14/2018 RADHA ARAUJO APRN Ot M50.33 OTHER CERVICAL DISC DEGENERATION, CERVIC 08/14/2018 RADHA ARAUJO APRN Ot M99.71 CONN TISS AND DISC STENOSIS OF INTVRT FO 08/14/2018 RACHEL FUNES Ot M79.89 OTHER SPECIFIED SOFT TISSUE DISORDERS 09/01/2018 Sander Childers MD H47.09 2 OTH DISORDERS OF OPTIC NERVE, NEC, LEFT 09/10/2018 SAMARIA BEAR MD Ot H46.9 UNSPECIFIED OPTIC NEURITIS 09/10/2018 SAMARIA BEAR MD Ot I1 0 ESSENTIAL (PRIMARY) HYPERTENSION 11/03/2018 Sander Childers MD H47.09 2 OTH DISORDERS OF OPTIC NERVE, NEC, LEFT 01/17/2020 W E29.1 Test icular hypofunction [place], [place] 01/17/2020 W I10 Essent ial (primary) hypertension Marianela, [place] 01/17/2020 W R73.01 Imp aired fasting glucose Marianela, [place] 02/20/2020 W E29.1 Test icular hypofunction Marianela, [place] 02/20/2020 W I10 Essent ial (primary) hypertension [place], [place] 02/20/2020 W M48.04 Spi nal stenosis, thoracic region Marianela, [place] 02/20/2020 W S46.212D T raumatic rupture of left biceps tendon, subsequent encounter [place], [place] 02/23/2020 W 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 [place], [place] 02/23/2020 W I10 Essent ial (primary) hypertension Marianela, [place] 02/23/2020 W M48.04 Spi nal stenosis, thoracic region [place], [place] 02/23/2020 W M54.2 Cerv icalgia [place], [place] 02/23/2020 W M54.6 Pain in thoracic spine [place], [place] 03/21/2020 W G47.01 Ins omnia due to medical condition [place], [place] 03/21/2020 W 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 [place], [place] 03/21/2020 W I10 Essent ial (primary) hypertension Marianela, [place] 03/23/2020 W G47.01 Ins omnia due to medical condition [place], [place] 03/23/2020 W 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 [place], [place] 03/23/2020 W I10 Essent ial (primary) hypertension [place], [place] 04/04/2020 W G47.01 Ins omnia due to medical condition [place], [place] 04/04/2020 W 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 [place], [place] 04/04/2020 W I10 Essent ial (primary) hypertension [place], [place] 04/04/2020 W 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 [place], [place] 04/04/2020 W M48.02 Spi nal stenosis, cervical region Marianela, [place] 04/04/2020 W M48.04 Spi nal stenosis, thoracic region [place], [place] 04/27/2020 RACHEL FUNES Ot M79.89 OTHER SPECIFIED SOFT TISSUE DISORDERS 04/28/2020 MARIANELA MCCLENDON, SAMARIA Mckeon Ot H46.9 UNSPECIFIED OPTIC NEURITIS 04/28/2020 MARIANELA MCCLENDON, SAMARIA Mckeon Ot I1 0 ESSENTIAL (PRIMARY) HYPERTENSION 04/28/2020 RADHA ARAUJO APRN Ot H46.8 OTHER OPTIC NEURITIS 04/28/2020 RADHA ARAUJO APRN Ot 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 Results There is no data. Encounters ACCT No. Visit Date/Time Discharge Status Pt. Type Provider Facility Loc./Unit Complaint [id number] 01/17/2020 13:37:00 Document Registration [id number] 05/26/2018 08:17:00 018 23:59:59 CLS Outpatient RACHEL FUNES [facility] RAD SOFT TISSUE LES ION L CHEST [id number] 05/17/2018 10:00:00 018 10:00:00 MEET VALDIVIA MD, ALINA Allison [facility] CARD FAMILY HISTORY OF HEART DISEASE,FATIGUE [id number] 05/14/2018 16:55:00 018 23:59:59 CLS Outpatient RADHA ARAUJO APRN [facility] RAD NECK PAIN, BACK PAIN [id number] 01/06/2018 12:59:00 018 23:59:59 CLS Outpatient RADHA ARAUJO APRN [facility] RAD ISCHEMIC OPTIC NEURITIS [id number] 01/06/2018 13:30:00 14:00:00 DIS Outpatient MARIANELA MCCLENDON, SAMARIA Mckeon [facility] SLEEP G47.35 [id number] 12/15/2017 14:32:00 018 23:59:59 CLS Outpatient MARIANELA MCCLENDON, SAMARIA Mckeon [facility] RAD HYPERTENSION [id number] 04/28/2020 00:04:[address] Emergency COREY QUICK DO [facility] ER VOMITING,DIARRHEA [id number] 12/02/2017 12:05:00 8 23:59:59 CLS Outpatient Liseth MCCLENDON, Sander [facility]. COL.RAD MRI ORBIT/FACE/NECK W W/O CONT WITH LAB
[2020-04-28 01:08] LABS: BAND NEUTROPHILS 6 %; FIBRIN DEGRADATION PRODUCTS 0.32 UG/ML (0.00-0.49); INR 0.9 (0.8-1.4); LYMPHOCYTES % (MANUAL) 5 %; MONOCYTES % (MANUAL) 4 %; NEUTROPHILS % (MANUAL) 85 %; PROTHROMBIN TIME PATIENT 12.4 SEC (12.2-14.7); RBC MORPH NORMAL
[2020-04-28 01:15] LABS: ERYTHROCYTE SEDIMENTATION RATE 1 MM/HR (0-15)
[2020-04-28 01:49] LABS: CLARITY,URINE CLEAR; COLOR,URINE YELLOW; GLUCOSE, URINE (UA) NEGATIVE (NEGATIVE); KETONES,URINE 1+ (NEGATIVE); LEUKOCYTE ESTERASE ,URINE NEGATIVE (NEGATIVE); NITRITE,URINE NEGATIVE (NEGATIVE); PH,URINE 5.5 (5-9); PROTEIN,URINE 1+ (NEGATIVE)
[2020-04-28 01:59] LABS: BACTERIA,URINE NEGATIVE /HPF; BILIRUBIN,URINE 1+ (NEGATIVE)
[2020-04-28] MEDS ORDERED: RX-ONDANSETRON 4 MG ODT (ZOFRAN) PPK #4 PO STA (02:17)
[2020-04-28] MEDS ORDERED: ONDA8TAB13 PO (02:24)
[2020-04-28] MEDS ORDERED: L. A1CAP11 PO (02:24)
[2020-04-28 02:35] VITALS: BP 127/78
--- NOTE | 2020-04-28 06:24 | Diagnostic Imaging Report ---
INDICATION: Nausea, vomiting, and diarrhea. Time of exam: 1:14 AM Correlation is made with prior chest of 12/15/2017. Heart size stable. Lungs are clear. Pulmonary vascularity is normal. No infiltrates are detected. There is no effusion or pneumothorax. There are postoperative changes lower cervical spine. IMPRESSION: No acute cardiopulmonary process is detected. Dictated by: Dictated on workstation # [id number]
[2020-04-30 13:26] LABS: HEPATITIS C ANTIBODY C Non-Reactive (Non-Reactive)
== END 2020-04-28 02:43 | disposition home or self-care (01) ==
LOC: EDUNIT# → ER 00:04
DX: K52.9 Noninfective gastroenteritis and colitis, unspecified (principal); Z20.828 Contact with and (suspected) exposure to other viral communicable diseases
CPT/HCPCS: 71045; 80053; 80074; 81000; 82150; 83615; 83690; 83735; 84145; 85007; 85027; 85379; 85610; 85652; 85730; 86141; 87015; 87045; 87046; 87899; 89055; 93005; 93041; 99284; U0002; 36415; 87635

== ENCOUNTER → 2020-05-04 | Outpatient (CLI) | payer MEDICAID ==
[~2020-05-04] MED LIST changes: +AMPHET/DEXTR; +ATEN50TA; +DEXILANT; +FOLIC; -IOHEXOL 350 MG/ML 100 ML (OMNIPAQUE 350) VIAL IV ONE; +L. A1CAP11 PO; +METH2.5T; +MONT10TA26; -NS 100 ML (IVPB) BAG IV ONE; +ONDA8TAB13 PO; +OXYCONTIN; +PRAV40TA2; +TESTOSTERONE; +TRAZODONE
--- NOTE | 2020-05-04 08:17 | Diagnostic Imaging Report ---
PROCEDURE: US Gallbladder. TECHNIQUE: Multiple real-time grayscale images were obtained over the right upper quadrant in various projections. INDICATION: Right upper quadrant pain, elevated liver function studies. Liver morphology and echotexture normal. The gallbladder appeared normal. No stones, sludge or wall thickening. There is no intra or extrahepatic bile duct dilatation. Visualized cava normal. The aorta and pancreas are obscured by gas. The unobstructed right kidney normal in size, cortical thickness and echotexture. There is no ascites. IMPRESSION: No abnormality identified at right upper quadrant ultrasound Dictated by: Dictated on workstation # [id number]
== END ==
LOC: RAD 07:30
PROVIDERS: ATTEND Family Medicine
DX: R10.11 Right upper quadrant pain (principal); R94.5 Abnormal results of liver function studies
CPT/HCPCS: 76705

== ENCOUNTER 2020-05-05 10:36 | Emergency (ER) | payer MEDICAID ==
[~2020-05-05] VITALS: Ht 167 cm; Wt 100.0 kg
--- OUTSIDE RECORDS SUMMARY | 2020-05-05 11:02 | XMS REPORT | Continuity of Care Document ---
Demographics Preferred Language Unknown Marital Status Unknown Mandaeism Affiliation Unknown Race Unknown Ethnic Group Unknown Author Organization Unknown Address Unknown Phone Unavailable Allergies Active Description Code Type Severity Reaction Onset Reported/Identified Relationship to Patient Clinical Status Yes No Known Drug Allergies [id number] Drug Allergy Unknown N/A 05/26/2018 Medications There is no data. 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 01/08/2018 SAMARIA GONZALEZ MD Ot G47.10 HYPERSOMNIA, UNSPECIFIED 01/08/2018 LISA MCCLENDON, SAMARIA Mckeon Ot 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 01/08/2018 SAMARIA GONZALEZ MD Ot G47.10 HYPERSOMNIA, UNSPECIFIED 01/08/2018 SAMARIA GONZALEZ MD Ot 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 02/11/2018 RADHA ARAUJO FLIGHT PARAMEDIC Ot H46.8 OTHER OPTIC NEURITIS 02/11/2018 RADHA ARAUJO FLIGHT PARAMEDIC Ot 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, LEFT EYE, VERONICA 05/14/2018 SAMARIA GONZALEZ MD Ot H46.9 UNSPECIFIED OPTIC NEURITIS 05/14/2018 SAMARIA GONZALEZ MD Ot I1 0 ESSENTIAL (PRIMARY) HYPERTENSION 05/14/2018 RADHA AARUJO FLIGHT PARAMEDIC Ot H46.8 OTHER OPTIC NEURITIS 05/14/2018 RADHA ARAUJO FLIGHT PARAMEDIC Ot 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71 CONN TISS AND DISC STENOSIS OF INTVRT FO 05/17/2018 SAMARIA GONZALEZ MD Ot H46.9 UNSPECIFIED OPTIC NEURITIS 05/17/2018 SAMARIA GONZALEZ MD Ot I1 0 ESSENTIAL (PRIMARY) HYPERTENSION 05/17/2018 RADHA ARAUJO FLIGHT PARAMEDIC Ot H46.8 OTHER OPTIC NEURITIS 05/17/2018 RADHA ARAUJO FLIGHT PARAMEDIC Ot 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, LEFT EYE, VERONICA 05/17/2018 RADHA ARAUJO APRN Ot M48.03 SPINAL STENOSIS, CERVICOTHORACIC REGION 05/17/2018 RADHA ARAUJO FLIGHT PARAMEDIC Ot M50.23 OTHER CERVICAL DISC DISPLACEMENT, CERVIC 05/17/2018 RADHA ARAUJO FLIGHT PARAMEDIC Ot M50.33 OTHER CERVICAL DISC DEGENERATION, CERVIC 05/17/2018 RADHA ARAUJO APRN Ot M99.71 CONN TISS AND DISC STENOSIS OF INTVRT FO 05/20/2018 RADHA ARAUJO APRN Ot M48.03 SPINAL STENOSIS, CERVICOTHORACIC REGION 05/20/2018 RADHA ARAUJO FLIGHT PARAMEDIC Ot M50.23 OTHER CERVICAL DISC DISPLACEMENT, CERVIC 05/20/2018 RADHA ARAUJO FLIGHT PARAMEDIC Ot M50.33 OTHER CERVICAL DISC DEGENERATION, CERVIC 05/20/2018 RADHA ARAUJO APRN Ot M99.71 CONN TISS AND DISC STENOSIS OF INTVRT FO 05/26/2018 SAMARIA GONZALEZ MD Ot H46.9 UNSPECIFIED OPTIC NEURITIS 05/26/2018 LISA MD, SAMARIA A Ot I1 0 ESSENTIAL (PRIMARY) HYPERTENSION 05/26/2018 RADHA ARAUJO FLIGHT PARAMEDIC Ot H46.8 OTHER OPTIC NEURITIS 05/26/2018 RADHA ARAUJO FLIGHT PARAMEDIC Ot 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, LEFT EYE, VERONICA 05/26/2018 RADHA ARAUJO APRN Ot M48.03 SPINAL STENOSIS, CERVICOTHORACIC REGION 05/26/2018 RADHA ARAUJO APRN Ot M50.23 OTHER CERVICAL DISC DISPLACEMENT, CERVIC 05/26/2018 RADHA ARAUJO FLIGHT PARAMEDIC Ot M50.33 OTHER CERVICAL DISC DEGENERATION, CERVIC 05/26/2018 RADHA ARAUJO APRN Ot M99.71 CONN TISS AND DISC STENOSIS OF INTVRT FO 05/27/2018 RACHEL FUNES Ot M79.89 OTHER SPECIFIED SOFT TISSUE DISORDERS 08/14/2018 SAMARIA GONZALEZ MD Ot H46.9 UNSPECIFIED OPTIC NEURITIS 08/14/2018 SAMARIA GONZALEZ MD Ot I1 0 ESSENTIAL (PRIMARY) HYPERTENSION 08/14/2018 RADHA ARAUJO APRN Ot H46.8 OTHER OPTIC NEURITIS 08/14/2018 RADHA ARAUJO FLIGHT PARAMEDIC Ot 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, LEFT EYE, VERONICA 08/14/2018 RADHA ARAUJO APRN Ot M48.03 SPINAL STENOSIS, CERVICOTHORACIC REGION 08/14/2018 RADHA ARAUJO FLIGHT PARAMEDIC Ot M50.23 OTHER CERVICAL DISC DISPLACEMENT, CERVIC 08/14/2018 RADHA ARAUJO APRN Ot M50.33 OTHER CERVICAL DISC DEGENERATION, CERVIC 08/14/2018 RADHA ARAUJO APRN Ot M99.71 CONN TISS AND DISC STENOSIS OF INTVRT FO 08/14/2018 RACHEL FUNES Ot M79.89 OTHER SPECIFIED SOFT TISSUE DISORDERS 09/01/2018 Sander Childers MD H47.09 2 OTH DISORDERS OF OPTIC NERVE, NEC, LEFT 09/10/2018 SAMARIA GONZALEZ MD Ot H46.9 UNSPECIFIED OPTIC NEURITIS 09/10/2018 SAMARIA GONZALEZ MD Ot I1 0 ESSENTIAL (PRIMARY) HYPERTENSION 11/03/2018 Sander Childers MD H47.09 2 OTH DISORDERS OF OPTIC NERVE, NEC, LEFT 01/17/2020 W E29.1 Test icular hypofunction [place], [place] 01/17/2020 W I10 Essent ial (primary) hypertension Lisa, [place] 01/17/2020 W R73.01 Imp aired fasting glucose Lisa, [place] 02/20/2020 W E29.1 Test icular hypofunction Lisa, [place] 02/20/2020 W I10 Essent ial (primary) hypertension [place], [place] 02/20/2020 W M48.04 Spi nal stenosis, thoracic region Lisa, [place] 02/20/2020 W S46.212D T raumatic rupture of left biceps tendon, subsequent encounter [place], [place] 02/23/2020 W G89.4 [employer] marcio pain syndrome [place], [place] 02/23/2020 W I10 Essent ial (primary) hypertension Lisa, [place] 02/23/2020 W M48.04 Spi nal stenosis, thoracic region [place], [place] 02/23/2020 W M54.2 Cerv icalgia [place], [place] 02/23/2020 W M54.6 Pain in thoracic spine [place], [place] 03/21/2020 W G47.01 Ins omnia due to medical condition [place], [place] 03/21/2020 W G89.4 [employer]ant marcio pain syndrome [place], [place] 03/21/2020 W I10 Essent ial (primary) hypertension Lisa, [place] 03/23/2020 W G47.01 Ins omnia due to medical condition [place], [place] 03/23/2020 W G89.4 [employer]ant marcio pain syndrome [place], [place] 03/23/2020 W I10 Essent ial (primary) hypertension [place], [place] 04/04/2020 W G47.01 Ins omnia due to medical condition [place], [place] 04/04/2020 W G89.4 [employer]ant marcio pain syndrome [place], [place] 04/04/2020 W I10 Essent ial (primary) hypertension [place], [place] 04/04/2020 W 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 [place], [place] 04/04/2020 W M48.02 Spi nal stenosis, cervical region Lisa, [place] 04/04/2020 W M48.04 Spi nal stenosis, thoracic region [place], [place] 04/27/2020 RACHEL FUNES Ot M79.89 OTHER SPECIFIED SOFT TISSUE DISORDERS 04/28/2020 SAMARIA GONZALEZ MD Ot H46.9 UNSPECIFIED OPTIC NEURITIS 04/28/2020 SAMARIA GONZALEZ MD Ot I1 0 ESSENTIAL (PRIMARY) HYPERTENSION 04/28/2020 RADHA ARAUJO FLIGHT PARAMEDIC Ot H46.8 OTHER OPTIC NEURITIS 04/28/2020 RADHA ARAUJO FLIGHT PARAMEDIC Ot 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, LEFT EYE, VERONICA 04/28/2020 RADHA ARAUJO FLIGHT PARAMEDIC Ot M48.03 SPINAL STENOSIS, CERVICOTHORACIC REGION 04/28/2020 RADHA ARAUJO APRN Ot M50.23 OTHER CERVICAL DISC DISPLACEMENT, CERVIC 04/28/2020 RADHA ARAUJO APRN Ot M50.33 OTHER CERVICAL DISC DEGENERATION, CERVIC 04/28/2020 RADHA ARAUJO FLIGHT PARAMEDIC Ot M99.71 CONN TISS AND DISC STENOSIS OF INTVRT FO 04/28/2020 RACHEL FUNES Ot M79.89 OTHER SPECIFIED SOFT TISSUE DISORDERS 05/01/2020 ABDELRAHMAN DO, COREY K Ot E86.0 DEHYDRATION 05/01/2020 ABDELRAHMAN DO, COREY K Ot K52.9 NONINFECTIVE GASTROENTERITIS AND COLITIS 05/01/2020 ABDELRAHMAN DO, COREY K Ot Z20.828 CONTACT W AND EXPOSURE TO OTH VIRAL COMM 05/04/2020 W D72.823 Le ukemoid reaction Lisa Sam[place] 05/04/2020 W R10.13 Epi gastric pain Lisa [place] 05/04/2020 W R74.0 Elev ated serum lactate dehydrogenase (LDH) Lisa [place] 05/04/2020 W R74.8 Elev ated liver enzymes Samaria Gonzalez Procedures There is no data. Results Test Result Range Complete blood count (CBC) with automate d white blood cell (WBC) differential - 04/28/20 00:35 Blood leukocytes automated count (number/volume) 20.3 10*3/uL 4.3-11.0 Blood erythrocytes automated count (number/volume) 5.84 10*6/uL 4.35-5.85 Venous blood hemoglobin measurement (mass/volume) 17.1 g/dL 13.3-17.7 Blood hematocrit (volume fraction) 49 % 40-54 Automated erythrocyte mean corpuscular volume 84 [ foz_us] 80-99 Automated erythrocyte mean corpuscular h emoglobin (mass per erythrocyte) 29 pg 25-34 Automated erythrocyte mean corpuscular h emoglobin concentration measurement (mass/volume) 35 g/dL 32-36 Automated erythrocyte distribution width ratio 14. 9 % 10.0- 14.5 Automated blood platelet count (count/volume) 302 10*3/uL 130-400 Automated blood platelet mean volume measurement 10.0 [foz_us] 7.4-10.4 Automated blood neutrophils/100 leukocytes 87 % 42-75 Automated blood lymphocytes/100 leukocytes 4 % 12-44 Blood monocytes/100 leukocytes 8 % 0-12 Automated blood eosinophils/100 leukocytes 1 % 0-10 Automated blood basophils/100 leukocytes 0 % 0-10 Blood neutrophils automated count (number/volume) 17.7 10*3 1.8-7.8 Blood lymphocytes automated count (number/volume) 0.8 10*3 1.0-4.0 Blood monocytes automated count (number/volume) 1. 6 10*3 0.0-1.0 Automated eosinophil count 0.2 10*3/uL 0 .0-0.3 Automated blood basophil count (count/volume) 0.0 10*3/uL 0.0-0.1 Comprehensive metabolic panel - 04/28/20 00:35 Serum or plasma sodium measurement (moles/volume) 140 mmol/L 135-145 Serum or plasma potassium measurement (moles/volume) 5.1 mmol/L 3.6-5.0 Serum or plasma chloride measurement (moles/volume) 104 mmol/L 98-107 Carbon dioxide 21 mmol/L 21-32 Serum or plasma anion gap determination (moles/volume) 15 mmol/L 5-14 Serum or plasma urea nitrogen measurement (mass/volume ) 14 mg/dL 7-18 Serum or plasma creatinine measurement (mass/volume) 1.38 mg/dL 0.60-1.30 Serum or plasma urea nitrogen/creatinine mass ratio 10 NRG Serum or plasma creatinine measurement w ith calculation of estimated glomerular filtration rate 55 NRG Serum or plasma glucose measurement (mass/volume) 101 mg/dL 70-105 Serum or plasma calcium measurement (mass/volume) 10.6 mg/dL 8.5-10.1 Serum or plasma total bilirubin measurement (mass/volu me) 0.4 mg/dL 0.1-1.0 Serum or plasma alkaline phosphatase nicholas surement (enzymatic activity/volume) 76 U/L 40-136 Serum or plasma aspartate aminotransfera se measurement (enzymatic activity/volume) 43 U/L 5-34 Serum or plasma alanine aminotransferase measurement (enzymatic activity/volume) 56 U/L 0-55 Serum or plasma protein measurement (mass/volume) 9.5 g/dL 6.4-8.2 Serum or plasma albumin measurement (mass/volume) 5.5 g/dL 3.2-4.5 Magnesium - 04/28/20 00:35 Magnesium 2.0 mg/dL 1.6-2.4 Serum ragweed IgE antibody assay - 04/28 00:35 Serum ragweed IgE antibody assay 303 U/L 125-220 PROCALCITONIN (PCT) - 04/28/20 00:35 PROCALCITONIN (PCT) 0.04 ng/mL <0.10 Serum or plasma amylase measurement (enz ymatic activity/volume) - 04/28/20 00:35 Serum or plasma amylase measurement (enzymatic activit y/volume) 47 U/L 25-125 Lipase - 04/28/20 00:35 Lipase 37 U/L 8-78 Manual absolute plasma cell count - 04/16 02/02 00:35 Blood monocytes/100 leukocytes 4 % NRG Manual blood segmented neutrophils/100 leukocytes 85 % NRG Blood band neutrophils/100 leukocytes 6 % NRG Manual blood lymphocytes/100 leukocytes 5 % NRG Blood erythrocyte morphology finding identification NORMAL NRG PT panel in platelet poor plasma by coag ulation assay - 04/28/20 00:35 Prothrombin time (PT) in platelet poor plasma by coagu lation assay 12.4 s 12.2-14.7 INR in platelet poor plasma or blood by coagulation as say 0.9 0.8-1.4 Activated partial thromboplastin time (a PTT) in platelet poor plasma bycoagulation assay - 04/28/20 00:35 Activated partial thromboplastin time (a PTT) in platelet poor plasma bycoagulation assay 29 s 24-35 Fibrin D-dimer FEU measurement in platel et poor plasma (mass/volume) - 04/28/20 00:35 Fibrin D-dimer FEU measurement in platelet poor plasma (mass/volume) 0.32 ug/mL 0.00-0.49 Erythrocyte sedimentation rate by sharon gren method - 04/28/20 00:35 Erythrocyte sedimentation rate by westergren method 1 mm 0- 15 Serum or plasma C reactive protein measu rement (mass/volume) - 04/28/20 00:35 Serum or plasma C reactive protein measurement (mass/v olume) 0.24 mg/dL 0.00-0.50 Coronavirus SARS-CoV-2 SO 2019 - 0 00:45 Coronavirus Ab [Units/volume] in Serum Negative Negative Acute hepatitis panel - 04/28/20 01:20 HEPATITIS A ANTIBODY IGM Non-Reactive N on-Reactive HEPATITIS B CORE JUAN ANTONIO IGM Non-Reactive N on-Reactive Confirmatory quantitative serum or plasm a hepatitis B virus surface antigen measurement Non-Reactive Non-Reactive Serum hepatitis C virus antibody detection Non-[place] ctive Non-Reactive Complete urinalysis with reflex to cultu re - 04/28/20 01:30 Urine color determination YELLOW NRG Urine clarity determination CLEAR NR G Urine pH measurement by test strip 5.5 5-9 Specific gravity of urine by test strip >= 1.016-1.022 Urine protein assay by test strip, semi-quantitative 1+ NEGATIVE Urine glucose detection by automated test strip NE GATIVE NEGATIVE Erythrocytes detection in urine sediment by light micr oscopy NEGATIVE NEGATIVE Urine ketones detection by automated test strip 1+ NEGATIVE Urine nitrite detection by test strip NEGATIVE NEGATIVE Urine total bilirubin detection by test strip 1+ NEGATIVE Urine urobilinogen measurement by automated test strip (mass/volume) 0.2 mg/dL < = 1.0 Urine leukocyte esterase detection by dipstick NEG ATIVE NEGATIVE Automated urine sediment erythrocyte cou nt by microscopy (number/high power field) NONE NRG Automated urine sediment leukocyte count by microscopy (number/high power field) NONE NRG Bacteria detection in urine sediment by light microsco py NEGATIVE NRG Squamous epithelial cells detection in u rine sediment by light microscopy 2-5 NRG Crystals detection in urine sediment by light microsco py NONE NRG Casts detection in urine sediment by light microscopy PRESENT NRG Mucus detection in urine sediment by light microscopy LARGE NRG Complete urinalysis with reflex to culture NO NRG Hyaline casts detection in urine sediment by light milton roscopy 5-10 NRG Stool leukocytes detection by light micr oscopy - 04/28/20 01:30 FECAL WBC RESULTS NO WBC'S OBSERVED ON DIRECT SMEA R NRG FECAL NOTE FECAL LEUKOCYTES MAY BE INTE RMITTENTLY PRESENT OR NRG FECAL NOTE UNEVENLY DISTRIBUTED IN STOO L SPECIMENS, AND WBC NRG FECAL NOTE MORPHOLOGY DEGRADES DURING TRANSPORT NRG FECAL NOTE NOTE: NRG Stool bacteria identification by culture - 04/28/20 01:30 Encounters ACCT No. Visit Date/Time Discharge Status Pt. Type Provider Facility Loc./Unit Complaint [id number] 01/17/2020 13:37:00 Document Registration [id number] 04/28/2020 00:04:00 020 02:43:00 DIS Outpatient ABDELRAHMAN DOCOREY [facility] ER VOMITING,DIARRHEA [id number] 05/26/2018 08:17:00 018 23:59:59 CLS Outpatient RACHEL FUNES [facility] RAD SOFT TISSUE LES ION L CHEST [id number] 05/17/2018 10:00:00 018 10:00:00 CAN Preadrosy VALDIVIA MD, ALINA Allison [facility] CARD FAMILY HISTORY OF HEART DISEASE,FATIGUE [id number] 05/14/2018 16:55:00 018 23:59:59 CLS Outpatient RADHA ARAUJO APRN [facility] RAD NECK PAIN, BACK PAIN [id number] 01/06/2018 12:59:00 018 23:59:59 CLS Outpatient RADHA ARAUJO APRN [facility] RAD ISCHEMIC OPTIC NEURITI S [id number] 01/06/2018 13:30:00 018 14:00:00 DIS Outpatient SAMARIA GONZALEZ MD [facility] SLEEP G47.35 [id number] 12/15/2017 14:32:00 018 23:59:59 CLS Outpatient SAMARIA GONZALEZ MD [facility] RAD HYPERTENSION [id number] 05/04/2020 07:30:[address] Outpatient SAMARIA GONZALEZ MD [facility] RAD RUQ PAIN,ELEVATED LFTS [id number] 12/02/2017 12:05:00 8 23:59:59 CLS Outpatient Liseth MCCLENDON, [facility]. COL.RAD MRI ORBIT/FACE/NECK W W/O CONT WITH LAB
[2020-05-05 12:15] LABS: BASOPHILS % (AUTO) 0 % (0-10); EOSINOPHILS # (AUTO) 0.2 10^3/uL (0.0-0.3); EOSINOPHILS % (AUTO) 2 % (0-10); HEMATOCRIT 44 % (40-54); HEMOGLOBIN 15.3 G/DL (13.3-17.7); LYMPHOCYTES # (AUTO) 1.4 X 10^3 (1.0-4.0); LYMPHOCYTES % (AUTO) 16 % (12-44); MEAN CORPUSCULAR HEMOGLOBIN 29 PG (25-34); MEAN CORPUSCULAR HGB CONC 35 G/DL (32-36); MEAN CORPUSCULAR VOLUME 85 FL (80-99); MEAN PLATELET VOLUME 10.3 FL (7.4-10.4); MONOCYTES # (AUTO) 0.8 X 10^3 (0.0-1.0); MONOCYTES % (AUTO) 9 % (0-12); NEUTROPHILS # (AUTO) 6.4 X 10^3 (1.8-7.8); NEUTROPHILS % (AUTO) 72 % (42-75); PLATELET COUNT 261 10^3/uL (130-400); RED CELL DISTRIBUTION WIDTH 15.1 % (10.0-14.5); WHITE BLOOD COUNT 8.8 10^3/uL (4.3-11.0)
[2020-05-05] MEDS: NS IV 1000 ML 1,000 ML IV SCH ×2 (12:22→13:45)
[2020-05-05 12:28] LABS: ALANINE AMINOTRANSFERASE 35 U/L (0-55); ALBUMIN 4.5 GM/DL (3.2-4.5); ALKALINE PHOSPHATASE 64 U/L (40-136); BILIRUBIN,TOTAL 0.3 MG/DL (0.1-1.0); BUN/CREATININE RATIO 14; CALCIUM 9.1 MG/DL (8.5-10.1); CARBON DIOXIDE 21 MMOL/L (21-32); CHLORIDE 106 MMOL/L (98-107); CREATININE SERUM 1.14 MG/DL (0.60-1.30); GFR ESTIMATED > 60; GLUCOSE 117 MG/DL (70-105); LIPASE 40 U/L (8-78); POTASSIUM 4.3 MMOL/L (3.6-5.0); SODIUM 139 MMOL/L (135-145); TOTAL PROTEIN 7.6 GM/DL (6.4-8.2)
--- NOTE | 2020-05-05 12:55 | ED GI ---
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 PT REPORTS HE WAS SEEN IN ED LAST THURSDAY FOR SAME PROBLEM AND GIVEN FLUIDS. PT HAS HX OF GALLBLADDER ISSUES, GASTROPARESIS, AND DELAYED GASTRIC EMPTYING. Sepsis Screen: No Definite Risk Source of Information: Patient Exam Limitations: No Limitations History of Present Illness Date Seen by Provider: May 05, 2020 Time Seen by Provider: 11:20 Initial Comments Patient complains of frequent watery diarrhea for the past few hours. He has not vomited but is nauseated. He has been belching a lot and feels bloated. He has a long history of gastroparesis. He denies fevers or chills Allergies and Home Medications Allergies Coded Allergies: No Known Drug Allergies (Unverified , 05/26/18) Home Medications L. Acidophilus/Pectin, [place] 1 Each Capsule, 2 EACH PO QID Prescribed by: COREY QUICK on 04/28/20223 Ondansetron 8 Mg Tab.rapdis, 8 MG PO Q6H Prescribed by: COREY QUICK on 04/28/20223 Patient Home Medication List Home Medication List Reviewed: Yes Review of Systems Review of Systems Constitutional: No fever; malaise EENTM: No Symptoms Reported Respiratory: No Symptoms Reported Cardiovascular: No Symptoms Reported Gastrointestinal: Abdominal Pain, Diarrhea, Nausea Genitourinary: No Symptoms Reported Musculoskeletal: no symptoms reported Skin: no symptoms reported All Other Systems Reviewed Negative Unless Noted: Yes Past Tbgssob-Zviaqv-Sbbitq Hx Patient Social History Alcohol Use: Denies Use Recreational Drug Use: No Smoking Status: Never a Smoker Recent Foreign Travel: No Contact w/Someone Who Travel: No Recent Infectious Disease Expo: No Recent Hopitalizations: No Physical Abuse: No Sexual Abuse: No Mistreated: No Fear: No Seasonal Allergies Seasonal Allergies: Yes Past Medical History Surgeries: Yes (C-SPINE FUSION C4-7;BILAT CARPAL & CUBITAL TUNNEL;LYMPH NODE IN NECK REMOV) Orthopedic, Tonsillectomy Respiratory: No Cardiac: Yes High Cholesterol, Hypertension Neurological: No Genitourinary: No Gastrointestinal: No Gastroesophageal Reflux Musculoskeletal: Yes (DISH SYNDROME;C-SPINE FUSION; BILAT CARPAL AND CUBITAL TUNNEL REPAIR;) Degenerate Disk Disease Endocrine: No HEENT: No Cancer: No Psychosocial: Yes ADD/ADHD Integumentary: No Blood Disorders: No Family Medical History ADDITIONAL PAST MEDICAL HX: -ANTI-PHOSPHOLIPID ANTIBODIES -"ANOTHER AUTO-IMMUNE DISEASE" --PT CANNOT STATE WHAT IT IS -CHRONIC METHOTREXATE THERAPY Physical Exam Vital Signs Vital Signs - First Documented 05/05/20 11:07 Temp 36.6 Pulse 82 Resp 20 B/P (MAP) 150/89 (109) Pulse Ox 97 Capillary Refill : Less Than 3 Seconds Height/Weight/BMI Height: '" Weight: lbs. oz. kg; 35.00 BMI Method: General Appearance: WD/WN, no apparent distress HEENT: pharynx normal Neck: supple Respiratory: lungs clear, normal breath sounds Cardiovascular: regular rate, rhythm, no edema Gastrointestinal: soft; No distended, No guarding, No rebound; tenderness (mild tenderness throughout) Extremities: normal inspection Neurologic/Psychiatric: alert, normal mood/affect Skin: normal color, warm/dry Progress/Results/Core Measures Results/Orders Lab Results Laboratory Tests Test 05/05/20 11:00 05/05/20 13:00 Range/Units White Blood Count 8.8 4.3-11.0 10^3/uL Red Blood Count 5.21 4.35-5.85 10^6/uL Hemoglobin 15.3 13.3-17.7 G/DL Hematocrit 44 40-54 % Mean Corpuscular Volume 85 80-99 FL Mean Corpuscular Hemoglobin 29 25-34 PG Mean Corpuscular Hemoglobin Concent 35 32-36 G/DL Red Cell Distribution Width 15.1 H 10.0-14.5 % Platelet Count 261 130-400 10^3/uL Mean Platelet Volume 10.3 7.4-10.4 FL Neutrophils (%) (Auto) 72 42-75 % Lymphocytes (%) (Auto) 16 12-44 % Monocytes (%) (Auto) 9 0-12 % Eosinophils (%) (Auto) 2 0-10 % Basophils (%) (Auto) 0 0-10 % Neutrophils # (Auto) 6.4 1.8-7.8 X 10^3 Lymphocytes # (Auto) 1.4 1.0-4.0 X 10^3 Monocytes # (Auto) 0.8 0.0-1.0 X 10^3 Eosinophils # (Auto) 0.2 0.0-0.3 10^3/uL Basophils # (Auto) 0.0 0.0-0.1 10^3/uL Sodium Level 139 135-145 MMOL/L Potassium Level 4.3 3.6-5.0 MMOL/L Chloride Level 106 98-107 MMOL/L Carbon Dioxide Level 21 21-32 MMOL/L Anion Gap 12 5-14 MMOL/L Blood Urea Nitrogen 16 7-18 MG/DL Creatinine 1.14 0.60-1.30 MG/DL Estimat Glomerular Filtration Rate > 60 BUN/Creatinine Ratio 14 Glucose Level 117 H 70-105 MG/DL Calcium Level 9.1 8.5-10.1 MG/DL Corrected Calcium 8.7 8.5-10.1 MG/DL Total Bilirubin 0.3 0.1-1.0 MG/DL Aspartate Amino Transf (AST/SGOT) 24 5-34 U/L Alanine Aminotransferase (ALT/SGPT) 35 0-55 U/L Alkaline Phosphatase 64 40-136 U/L C-Reactive Protein High Sensitivity 0.29 0.00-0.50 MG/DL Total Protein 7.6 6.4-8.2 GM/DL Albumin 4.5 3.2-4.5 GM/DL Lipase 40 8-78 U/L Urine Color YELLOW Urine Clarity CLEAR Urine pH 6.0 5-9 Urine Specific [place] 1.020 1.016-1.022 Urine Protein NEGATIVE NEGATIVE Urine Glucose (UA) NEGATIVE NEGATIVE Urine Ketones NEGATIVE NEGATIVE Urine Nitrite NEGATIVE NEGATIVE Urine Bilirubin NEGATIVE NEGATIVE Urine Urobilinogen 0.2 < = 1.0 MG/DL Urine Leukocyte Esterase NEGATIVE NEGATIVE Urine RBC (Auto) NEGATIVE NEGATIVE Urine RBC NONE /HPF Urine WBC NONE /HPF Urine Squamous Epithelial Cells NONE /HPF Urine Crystals NONE /LPF Urine Bacteria NEGATIVE /HPF Urine Casts NONE /LPF Urine Mucus NEGATIVE /LPF Urine Culture Indicated NO My Orders Orders - SANCHEZ VILLAGOMEZ MD Cbc With Automated Diff (05/05/20 12:08) Comprehensive Metabolic Panel (05/05/20 12:08) Lipase (05/05/20 12:08) Ua Culture If Indicated (05/05/20 12:08) Ns Iv 1000 Ml (Sodium Chloride 0.9%) (05/05/20 12:15) Hs C Reactive Protein (05/05/20 12:51) Ondansetron Injection (Zofran Injectio (05/05/20 13:45) Vital Signs/I&O 05/05/20 11:07 Temp 36.6 Pulse 82 Resp 20 B/P (MAP) 150/89 (109) Pulse Ox 97 Blood Pressure Mean: 109 Progress Progress Note : Time: 13:33 Progress Note Feels better after IV fluids. He was given IV Zofran which helped. Stable for discharge. Test results reviewed and discussed patient. Departure Impression Primary Impression: Abdominal pain Additional Impression: Diarrhea Disposition: HOME, SELF-CARE Condition: Stable Departure-Patient Inst. Decision time for Depature: 13:33 Referrals: SAMARIA BEAR MD (PCP/Family) Primary Care Physician Patient Instructions: Diarrhea in Adolescents and Adults Add. Discharge Instructions: Clear liquid diet for next 24 hours. Follow-up her doctor Thursday. Take Zofran as needed for your nausea. All discharge instructions reviewed with patient and/or family. Voiced understanding. SANCHEZ VILLAGOMEZ MD May 05, 2020 12:55
[2020-05-05 13:13] LABS: BILIRUBIN,URINE NEGATIVE (NEGATIVE); CLARITY,URINE CLEAR; COLOR,URINE YELLOW; GLUCOSE, URINE (UA) NEGATIVE (NEGATIVE); KETONES,URINE NEGATIVE (NEGATIVE); LEUKOCYTE ESTERASE ,URINE NEGATIVE (NEGATIVE); NITRITE,URINE NEGATIVE (NEGATIVE); PROTEIN,URINE NEGATIVE (NEGATIVE)
[2020-05-05 13:28] LABS: BACTERIA,URINE NEGATIVE /HPF
[2020-05-05] MEDS ORDERED: ONDANSETRON 4 MG/2 ML (SDV) Z0FRAN IVP ONE (13:45)
[2020-05-05 14:48] VITALS: BP 129/70
== END 2020-05-05 14:48 | disposition home or self-care (01) ==
LOC: EDUNIT# 10:36 → ER 10:37
DX: R19.7 Diarrhea, unspecified (principal); R10.9 Unspecified abdominal pain; Z87.19 Personal history of other diseases of the digestive system
CPT/HCPCS: 36415; 80053; 81000; 83690; 85025; 86141

== ENCOUNTER → 2020-05-21 | Outpatient (CLI) | payer MEDICAID | LOC: LAB 15:39 | PROVIDERS: ATTEND Internal Medicine Gastroenterology | DX: K31.84 Gastroparesis (principal); R19.8 Other specified symptoms and signs involving the digestive system and abdomen; R79.9 Abnormal finding of blood chemistry, unspecified | CPT/HCPCS: 36415; 85652; 86021; 86141; 86316 ==

== ENCOUNTER → 2020-05-30 | Outpatient (CLI) | payer MEDICAID | LOC: LAB 16:39 | PROVIDERS: ATTEND Internal Medicine Gastroenterology | DX: R79.9 Abnormal finding of blood chemistry, unspecified (principal); R97.8 Other abnormal tumor markers | CPT/HCPCS: 36415; 82378 ==

== ENCOUNTER → 2020-07-09 | Outpatient (CLI) | payer MEDICAID ==
--- NOTE | 2020-07-09 11:49 | Diagnostic Imaging Report ---
PROCEDURE: MRI lumbar spine. TECHNIQUE: Multiplanar, multisequence MRI of the lumbar spine was performed without contrast. INDICATION: Chronic low back pain. No prior studies are available for comparison. Curvature and alignment of the lumbar spine is normal. Vertebral body heights are maintained. Marrow signal intensity is unremarkable. No geographic marrow lesion is seen. No acute compression fracture is detected. Generalized degenerative disease is identified with variable disc space narrowing and marginal spurring. The conus appears unremarkable located T12-L1 level. T12-L1: Central canal is widely patent. The neural foramina are patent. L1-2: There is prominent broad-based disc/osteophyte complex indenting the ventral thecal sac and producing fairly significant central canal stenosis. In addition, there is severe bilateral lateral recess stenosis. Moderate bilateral neural foraminal stenosis is present. L2-L3: Broad-based disc/osteophyte complex flattens the ventral thecal sac. This does produce mild narrowing of the central canal. There is significant narrowing of the lateral recesses bilaterally. There is also fairly significant bilateral neural foraminal stenosis. L3-L4: Broad-based disc/osteophyte complex indents the ventral thecal sac and produces moderate central canal stenosis. There is significant bilateral lateral recess stenosis as well as moderate bilateral neural foraminal stenosis. L4-L5: Significant broad-based disc/osteophyte complex indents the ventral thecal sac and produces significant central canal narrowing. There is also severe bilateral lateral recess stenosis and moderate to severe bilateral neural foraminal stenosis. Hypertrophic facet changes are noted. L5-S1: Hypertrophic facet changes are noted. Central canal is patent. Neural foramina are patent. The paraspinous tissues are unremarkable. IMPRESSION: Multilevel lumbar spondylosis with multilevel central canal, lateral recess and neural foraminal stenosis described level by level above. Dictated by: Dictated on workstation # [id number]
== END ==
LOC: RAD 10:15
PROVIDERS: ATTEND Physician Assistant
DX: M47.816 Spondylosis without myelopathy or radiculopathy, lumbar region (principal); M48.061 Spinal stenosis, lumbar region without neurogenic claudication; Z20.828 Contact with and (suspected) exposure to other viral communicable diseases
CPT/HCPCS: 72148

== ENCOUNTER 2022-12-02 09:03 | Outpatient (RCR) | payer MEDICARE, MEDICAID ==
[~2022-12-02 09:03] MED LIST changes: +MONT-40; -MONT10TA26
== END 2022-12-16 | disposition home or self-care (01) ==
LOC: LAB 09:03 → EDSTATUS 09:03
PROVIDERS: ATTEND Internal Medicine Interventional Cardiology
DX: I11.9 Hypertensive heart disease without heart failure (principal)
CPT/HCPCS: 36415; 82530; 82533